=== PATIENT | female | born 1985 | race African-American/Black ===

== ENCOUNTER → 2018-06-30 | Outpatient (REF) | payer MEDICAID, OTHER ==
[2018-06-30 12:14] LABS: HEMATOCRIT 29.3 % (36.0-47.0); HEMOGLOBIN 9.2 g/dl (12.0-15.5); MEAN CORPUSCULAR HEMOGLOBIN 28.3 pg (27.0-33.0); MEAN CORPUSCULAR HGB CONC 31.4 g/dl (32.0-36.5); MEAN CORPUSCULAR VOLUME 90.2 fl (80.0-96.0); PLATELET COUNT, AUTOMATED 666 10^3/uL (150-450); RED BLOOD COUNT 3.25 10^6/uL (4.00-5.40); WHITE BLOOD COUNT 10.1 10^3/uL (4.0-10.0)
[2018-06-30 12:57] LABS: ALBUMIN 2.5 GM/DL (3.2-5.2); ALBUMIN/GLOBULIN RATIO 0.61 (1.00-1.93); ALKALINE PHOSPHATASE 96 U/L (45-117); ALT/SGPT 21 U/L (12-78); ANION GAP 10 MEQ/L (8-16); AST/SGOT 25 U/L (7-37); BILIRUBIN,TOTAL 0.3 MG/DL (0.2-1.0); BLOOD UREA NITROGEN 36 MG/DL (7-18); CALCIUM LEVEL 8.5 MG/DL (8.5-10.1); CARBON DIOXIDE LEVEL 19 MEQ/L (21-32); CHLORIDE LEVEL 111 MEQ/L (98-107); CHOLESTEROL LEVEL 225 MG/DL (<200); CHOLESTEROL RISK RATIO 4.245 (<5); CREATININE FOR GFR 3.47 MG/DL (0.55-1.30); FREE T4 1.01 NG/DL (0.76-1.46); GLOMERULAR FILTRATION RATE 19.8 (>60); GLUCOSE, FASTING 99 MG/DL (70-100); HDL CHOLESTEROL 53 MG/DL (>40); LDL CHOLESTEROL 149.4 MG/DL (<100); NON-HDL-C 172 MG/DL; SODIUM LEVEL 140 MEQ/L (136-145); TOTAL PROTEIN 6.6 GM/DL (6.4-8.2); TRIGLYCERIDES LEVEL 113 MG/DL (<150)
[2018-06-30 13:16] LABS: CREATININE, URINE 57.3 MG/DL; MAU/CREAT RATIO 4816.7 MCG/MG (0.0-30.0)
[2018-06-30 16:23] LABS: ESTIMATED AVERAGE GLUCOSE 163 MG/DL (60-110); HEMOGLOBIN A1c 7.3 %
[2018-07-01 09:29] LABS: RETIC HEMOGLOBIN EQUIVALENT 32.8 pg (24-36); RETICULOCYTE # 65.1 10^9/L (17-77)
[2018-07-01 09:43] LABS: FERRITIN 118 NG/ML (8-252); IRON (FE) 22 UG/DL (50-170)
[2018-07-01 11:04] LABS: PTH INTACT 161.1 PG/ML (18.5-88.0)
[2018-07-01 11:33] LABS: TOTAL 25(OH) VITAMIN D 7.5 NG/ML (30.0-100.0)
[2018-07-02 00:06] LABS: ISLET CELL ANTIBODIES Negative (Neg:<1:1)
== END ==
LOC: M SFHCPLAZ 09:29
DX: E10.8 Type 1 diabetes mellitus with unspecified complications (principal); I10 Essential (primary) hypertension; Z13.220 Encounter for screening for lipoid disorders
CPT/HCPCS: 83540

== ENCOUNTER → 2018-07-14 | Outpatient (REF) | payer MEDICAID ==
[2018-07-14 14:01] LABS: BASO % 0.5 % (0.0-1.0); EOS # 0.3 10^3/uL (0.0-0.50); HEMATOCRIT 27.6 % (36.0-47.0); HEMOGLOBIN 8.6 g/dl (12.0-15.5); IMMATURE GRANULOCYTE % 0.4 % (0-3.0); LYMPH # 1.9 10^3/uL (1.5-4.5); MEAN CORPUSCULAR HEMOGLOBIN 28.1 pg (27.0-33.0); MEAN CORPUSCULAR HGB CONC 31.2 g/dl (32.0-36.5); MEAN CORPUSCULAR VOLUME 90.2 fl (80.0-96.0); MONO # 0.4 10^3/uL (0.0-0.8); MONO % 5.9 % (0.0-5.0); NEUTROPHILS # 4.7 10^3/uL (1.8-7.7); NEUTROPHILS % 63.2 % (36.0-66.0); PLATELET COUNT, AUTOMATED 723 10^3/uL (150-450); RED BLOOD COUNT 3.06 10^6/uL (4.00-5.40); RED CELL DISTRIBUTION WIDTH 12.8 % (11.5-14.5); WHITE BLOOD COUNT 7.4 10^3/uL (4.0-10.0)
[2018-07-14 14:20] LABS: APPEARANCE, URINE CLEAR (CLEAR); BACTERIA, URINE AUTO NEGATIVE (NEGATIVE); BILIRUBIN, URINE AUTO NEGATIVE (NEGATIVE); BLOOD, URINE BLOOD 3+ (NEGATIVE); COLOR, URINE YELLOW (YELLOW); GLUCOSE, URINE (UA) AUTO 2+ mg/dL (NEGATIVE); KETONE, URINE AUTO NEGATIVE (NEGATIVE); LEUKOCYTE ESTERASE, URINE AUTO NEGATIVE (NEGATIVE); MUCUS, URINE SMALL (NEGATIVE); NITRITE, URINE AUTO NEGATIVE (NEGATIVE); PROTEIN, URINE AUTO 3+ mg/dL (NEGATIVE); RBC, URINE AUTO TNTC /HPF (0-3); SPECIFIC GRAVITY URINE AUTO 1.013 (1.002-1.035); SQUAMOUS EPITHELIAL CELL UR AU 1 /HPF (0-6); UROBILINOGEN, URINE AUTO 0.2 mg/dL (0.0-2.0); WBC, URINE AUTO 4 /HPF (0-3)
[2018-07-14 14:34] LABS: ALBUMIN 2.5 GM/DL (3.2-5.2); ANION GAP 9 MEQ/L (8-16); BLOOD UREA NITROGEN 33 MG/DL (7-18); CALCIUM LEVEL 8.4 MG/DL (8.5-10.1); CARBON DIOXIDE LEVEL 22 MEQ/L (21-32); CHLORIDE LEVEL 111 MEQ/L (98-107); CREATININE FOR GFR 3.92 MG/DL (0.55-1.30); FERRITIN 90 NG/ML (8-252); FOLATE 11.8 NG/ML; GLOMERULAR FILTRATION RATE 17.2 (>60); GLUCOSE, FASTING 134 MG/DL (70-100); HEPATITIS B SURFACE ANTIBODY POSITIVE (POSITIVE); IRON (FE) 33 UG/DL (50-170); MAGNESIUM LEVEL 1.8 MG/DL (1.8-2.4); PHOSPHORUS LEVEL 4.3 MG/DL (2.5-4.9); POTASSIUM SERUM 4.5 MEQ/L (3.5-5.1); PTH INTACT 240.2 PG/ML (18.5-88.0); SODIUM LEVEL 142 MEQ/L (136-145); TOTAL IRON BINDING CAPACITY 262 UG/DL (250-450)
[2018-07-14 14:39] LABS: HEPATITIS B SURFACE ANTIGEN NEGATIVE (NEGATIVE)
[2018-07-14 15:05] LABS: HEPATITIS C VIRUS ABY INDEX 5.2 INDEX (<0.8)
[2018-07-14 15:15] LABS: TOTAL PROTEIN,RANDOM URINE 659.6 MG/DL (0.0-12.0)
[2018-07-14 21:00] LABS: HIV 1&2 SCREEN CENTAUR NEGATIVE (NEGATIVE)
[2018-07-14 22:31] LABS: COMPLEMENT C3 141 MG/DL (90-180)
[2018-07-14 22:42] LABS: PERCENT SATURATION 12.5 % (13.2-45.0)
[2018-07-17 00:06] LABS: ANCA-ATYPICAL <1:20 titer (Neg:<1:20); ANTI DOUBLE STRAND-DNA AB <1 IU/mL (0-9); ANTINUCLEAR ANTIBODIES DIRECT Negative (Negative); CYTOPLASMIC NEUTROP AB ANCA-C <1:20 titer (Neg:<1:20); PERINUCLEAR AB ANCA-P <1:20 titer (Neg:<1:20)
[2018-07-19 08:20] LABS: HCV RNA NAA QUALITATIVE Negative (Negative)
[2018-07-19 14:17] LABS: ANTI-GLOMERULAR BASEMENT MEMB 3 units (0-20)
== END ==
LOC: M LAB REF 13:23
DX: E11.22 Type 2 diabetes mellitus with diabetic chronic kidney disease (principal); D63.1 Anemia in chronic kidney disease; N25.81 Secondary hyperparathyroidism of renal origin; R80.9 Proteinuria, unspecified; N18.4 Chronic kidney disease, stage 4 (severe)

== ENCOUNTER 2018-07-16 16:59 | Inpatient (IN) | payer MEDICAID, OTHER, SELFPAY ==
[2018-07-16 17:40] LABS: BEDSIDE GLUCOSE 76 MG/DL (70-105)
[2018-07-16 20:04] LABS: HEMATOCRIT 27.6 % (36.0-47.0); HEMOGLOBIN 9.1 g/dl (12.0-15.5); MEAN CORPUSCULAR HEMOGLOBIN 27.9 pg (27.0-33.0); MEAN CORPUSCULAR VOLUME 84.7 fl (80.0-96.0); PLATELET COUNT, AUTOMATED 727 10^3/uL (150-450); RED BLOOD COUNT 3.26 10^6/uL (4.00-5.40); RED CELL DISTRIBUTION WIDTH 12.5 % (11.5-14.5); WHITE BLOOD COUNT 7.7 10^3/uL (4.0-10.0)
[2018-07-16] MEDS: LABETALOL HCL 100 MG/20 ML VIAL IV (20:22)
[2018-07-16] MEDS: NS 0.45% 500 ML IV (22:30)
[2018-07-16] MEDS: FERROUS SULFATE 325MG TAB PO (22:40)
[2018-07-16 22:44] LABS: CONTROL LINE HCG INT CTR LINE PRESENT; HCG, SERUM QUALITATIVE NEGATIVE (NEGATIVE)
[2018-07-16 22:51] LABS: TROPONIN I < 0.02 NG/ML (< 0.10)
[2018-07-16 23:26] LABS: CONTROL LINE UCG INT CTR LINE PRESENT; URINE PREG TEST NEGATIVE (NEGATIVE)
[2018-07-16 23:29] LABS: APPEARANCE, URINE HAZY (CLEAR); BACTERIA, URINE AUTO NEGATIVE (NEGATIVE); BILIRUBIN, URINE AUTO NEGATIVE (NEGATIVE); BLOOD, URINE BLOOD 3+ (NEGATIVE); COLOR, URINE STRAW (YELLOW); GLUCOSE, URINE (UA) AUTO 1+ mg/dL (NEGATIVE); KETONE, URINE AUTO NEGATIVE (NEGATIVE); LEUKOCYTE ESTERASE, URINE AUTO NEGATIVE (NEGATIVE); NITRITE, URINE AUTO NEGATIVE (NEGATIVE); PROTEIN, URINE AUTO 3+ mg/dL (NEGATIVE); RBC, URINE AUTO TNTC /HPF (0-3); SPECIFIC GRAVITY URINE AUTO 1.007 (1.002-1.035); SQUAMOUS EPITHELIAL CELL UR AU 1 /HPF (0-6); UROBILINOGEN, URINE AUTO 0.2 mg/dL (0.0-2.0); WBC, URINE AUTO 4 /HPF (0-3)
[2018-07-16 23:39] LABS: CHLORIDE,RANDOM URINE 102 MEQ/L; POTASSIUM RANDOM URINE 17.8 MEQ/L
[2018-07-16 23:39] LABS: SODIUM,RANDOM URINE 99 MEQ/L
[2018-07-17] MEDS: **hydrALAZINE** 10 MG TAB PO
[2018-07-17 02:21] LABS: BEDSIDE GLUCOSE 59 MG/DL (70-105)
[2018-07-17 02:52] LABS: BEDSIDE GLUCOSE 54 MG/DL (70-105)
[2018-07-17] MEDS ORDERED: GLUCAGON FOR INJ 1 MG VIAL (J1610) SC (03:00)
[2018-07-17] MEDS ORDERED: GLUCOSE 4 GM CHEW TABLET PO (03:00)
[2018-07-17] MEDS: DEXTROSE 50% 50 ML SYRINGE IV (03:06)
[2018-07-17] MEDS: NS 0.45% 500 ML IV (03:18)
[2018-07-17 03:27] LABS: BEDSIDE GLUCOSE 115 MG/DL (70-105)
[2018-07-17] MEDS: HEPARIN SOD (PORCINE) 5000 UNITS/ML VIAL SC ×3 (05:48→21:51)
[2018-07-17 06:22] LABS: HEMATOCRIT 23.8 % (36.0-47.0); HEMOGLOBIN 7.7 g/dl (12.0-15.5); MEAN CORPUSCULAR HGB CONC 32.4 g/dl (32.0-36.5); MEAN CORPUSCULAR VOLUME 86.5 fl (80.0-96.0); RED BLOOD COUNT 2.75 10^6/uL (4.00-5.40); RED CELL DISTRIBUTION WIDTH 12.7 % (11.5-14.5); WHITE BLOOD COUNT 6.2 10^3/uL (4.0-10.0)
[2018-07-17 06:36] LABS: PLATELET COUNT, AUTOMATED 530 10^3/uL (150-450)
[2018-07-17 06:43] LABS: ANION GAP 7 MEQ/L (8-16); BLOOD UREA NITROGEN 35 MG/DL (7-18); CALCIUM LEVEL 8.7 MG/DL (8.5-10.1); CARBON DIOXIDE LEVEL 22 MEQ/L (21-32); CHLORIDE LEVEL 111 MEQ/L (98-107); CREATININE FOR GFR 3.89 MG/DL (0.55-1.30); GLOMERULAR FILTRATION RATE 17.4 (>60); GLUCOSE, FASTING 134 MG/DL (70-100); POTASSIUM SERUM 4.3 MEQ/L (3.5-5.1); SODIUM LEVEL 140 MEQ/L (136-145); TROPONIN I < 0.02 NG/ML (< 0.10)
[2018-07-17] MEDS: INFLUENZA QUADRIVALENT PF VACCINE 0.5ML SYRINGE (90686) IM (08:44)
[2018-07-17] MEDS: HumaLOG INSULIN (NovoLOG) PER UNIT SC ×4 (08:45→21:50)
[2018-07-17] MEDS: LEVEMIR (INSULIN DETEMIR) 1 UNITS/0.01ML SC (08:45)
[2018-07-17] MEDS: METOPROLOL TART 50 MG TAB PO ×2 (08:46→21:50)
[2018-07-17] MEDS: FERROUS SULFATE 325MG TAB PO ×2 (08:47→21:49)
[2018-07-17] MEDS: **hydrALAZINE HCL** 25 MG TAB PO ×3 (08:47→21:50)
[2018-07-17] MEDS: amLODIPine 5 MG TAB PO (08:47)
[2018-07-17 11:45] LABS: BEDSIDE GLUCOSE 141 MG/DL (70-105)
[2018-07-17 13:36] LABS: IRON (FE) 34 UG/DL (50-170); PERCENT SATURATION 17.3 % (13.2-45.0); TOTAL IRON BINDING CAPACITY 197 UG/DL (250-450)
[2018-07-17] MEDS: FUROSEMIDE 40 MG TAB PO (14:19)
[2018-07-17 17:05] LABS: BEDSIDE GLUCOSE 91 MG/DL (70-105)
[2018-07-17 20:16] LABS: BEDSIDE GLUCOSE 132 MG/DL (70-105)
[2018-07-17] MEDS: ACETAMINOPHEN TAB 650MG DOSE (2X325MG) PO (21:52)
[2018-07-18] MEDS: **hydrALAZINE HCL** 25 MG TAB PO ×3 (05:52→21:15)
[2018-07-18] MEDS: HEPARIN SOD (PORCINE) 5000 UNITS/ML VIAL SC ×3 (05:56→21:16)
[2018-07-18 06:17] LABS: HEMATOCRIT 24.9 % (36.0-47.0); MEAN CORPUSCULAR HGB CONC 32.1 g/dl (32.0-36.5); MEAN CORPUSCULAR VOLUME 87.1 fl (80.0-96.0); PLATELET COUNT, AUTOMATED 570 10^3/uL (150-450); RED BLOOD COUNT 2.86 10^6/uL (4.00-5.40); RED CELL DISTRIBUTION WIDTH 12.7 % (11.5-14.5)
[2018-07-18 06:45] LABS: ANION GAP 9 MEQ/L (8-16); BLOOD UREA NITROGEN 47 MG/DL (7-18); CARBON DIOXIDE LEVEL 21 MEQ/L (21-32); CHLORIDE LEVEL 108 MEQ/L (98-107); CREATININE FOR GFR 3.98 MG/DL (0.55-1.30); GLOMERULAR FILTRATION RATE 16.9 (>60); GLUCOSE, FASTING 87 MG/DL (70-100); POTASSIUM SERUM 5.1 MEQ/L (3.5-5.1); SODIUM LEVEL 138 MEQ/L (136-145)
[2018-07-18] MEDS: HumaLOG INSULIN (NovoLOG) PER UNIT SC ×4 (07:30→21:15)
[2018-07-18] MEDS: FERROUS SULFATE 325MG TAB PO ×2 (09:13→21:12)
[2018-07-18] MEDS: FUROSEMIDE 40 MG TAB PO (09:14)
[2018-07-18] MEDS: METOPROLOL TART 50 MG TAB PO ×2 (09:14→21:15)
[2018-07-18] MEDS: LEVEMIR (INSULIN DETEMIR) 1 UNITS/0.01ML SC (09:15)
[2018-07-18] MEDS: amLODIPine 5 MG TAB PO (09:15)
[2018-07-18 11:59] LABS: BEDSIDE GLUCOSE 123 MG/DL (70-105)
[2018-07-18 16:37] LABS: BEDSIDE GLUCOSE 165 MG/DL (70-105)
[2018-07-18 20:14] LABS: BEDSIDE GLUCOSE 106 MG/DL (70-105)
[2018-07-19 06:25] LABS: HEMATOCRIT 23.1 % (36.0-47.0); HEMOGLOBIN 7.6 g/dl (12.0-15.5); MEAN CORPUSCULAR HEMOGLOBIN 28.5 pg (27.0-33.0); MEAN CORPUSCULAR HGB CONC 32.9 g/dl (32.0-36.5); MEAN CORPUSCULAR VOLUME 86.5 fl (80.0-96.0); PLATELET COUNT, AUTOMATED 489 10^3/uL (150-450); RED BLOOD COUNT 2.67 10^6/uL (4.00-5.40); WHITE BLOOD COUNT 6.5 10^3/uL (4.0-10.0)
[2018-07-19] MEDS: **hydrALAZINE HCL** 25 MG TAB PO (06:27)
[2018-07-19] MEDS: HEPARIN SOD (PORCINE) 5000 UNITS/ML VIAL SC ×3 (06:27→21:27)
[2018-07-19 06:45] LABS: ANION GAP 12 MEQ/L (8-16); BLOOD UREA NITROGEN 47 MG/DL (7-18); CALCIUM LEVEL 8.3 MG/DL (8.5-10.1); CARBON DIOXIDE LEVEL 18 MEQ/L (21-32); CHLORIDE LEVEL 109 MEQ/L (98-107); CREATININE FOR GFR 3.89 MG/DL (0.55-1.30); GLOMERULAR FILTRATION RATE 17.4 (>60); GLUCOSE, FASTING 80 MG/DL (70-100); POTASSIUM SERUM 4.8 MEQ/L (3.5-5.1); SODIUM LEVEL 139 MEQ/L (136-145)
[2018-07-19] MEDS: HumaLOG INSULIN (NovoLOG) PER UNIT SC ×4 (07:22→21:27)
[2018-07-19] MEDS: LEVEMIR (INSULIN DETEMIR) 1 UNITS/0.01ML SC (08:23)
[2018-07-19] MEDS: FUROSEMIDE 40 MG TAB PO (08:23)
[2018-07-19] MEDS: FERROUS SULFATE 325MG TAB PO ×2 (08:23→21:25)
[2018-07-19] MEDS: amLODIPine 5 MG TAB PO (08:25)
[2018-07-19] MEDS: METOPROLOL TART 50 MG TAB PO ×2 (08:25→21:26)
[2018-07-19] MEDS ORDERED: IRON SUCROSE 500 MG in NS 250 ML IV (08:45)
[2018-07-19] MEDS: ACETAMINOPHEN TAB 650MG DOSE (2X325MG) PO ×2 (09:20→23:05)
[2018-07-19 09:30] LABS: BEDSIDE GLUCOSE 69 MG/DL (70-105)
[2018-07-19] MEDS: IRON SUCROSE 500 MG in NS 250 ML IV (10:30)
[2018-07-19 10:31] LABS: HEPATITIS B SURFACE ANTIBODY POSITIVE (POSITIVE)
[2018-07-19] MEDS: DARBEPOETIN 100 MCG/0.5 ML *NON-DIALYSIS* SYRINGE (J0881) SC (10:31)
[2018-07-19 10:41] LABS: HEPATITIS B SURFACE ANTIGEN NEGATIVE (NEGATIVE)
[2018-07-19 10:47] LABS: BEDSIDE GLUCOSE 109 MG/DL (70-105)
[2018-07-19 11:08] LABS: HEPATITIS B CORE ANTIBODY IGM NEGATIVE (NEGATIVE); HEPATITIS C VIRUS ABY INDEX 5.2 INDEX (<0.8)
[2018-07-19 11:30] LABS: BEDSIDE GLUCOSE 136 MG/DL (70-105)
[2018-07-19 16:40] LABS: BEDSIDE GLUCOSE 105 MG/DL (70-105)
[2018-07-19 16:58] LABS: IMMEDIATE SPIN CROSSMATCH 1 1
[2018-07-19] MEDS: FUROSEMIDE 40 MG/4 ML VIAL (J1940) IV (20:24)
[2018-07-19 22:26] LABS: BEDSIDE GLUCOSE 118 MG/DL (70-105)
[2018-07-19] MEDS: **hydrALAZINE** 10 MG TAB PO (22:26)
[2018-07-20] MEDS: HEPARIN SOD (PORCINE) 5000 UNITS/ML VIAL SC (06:06)
[2018-07-20 06:17] LABS: HEMATOCRIT 26.9 % (36.0-47.0); MEAN CORPUSCULAR HEMOGLOBIN 28.8 pg (27.0-33.0); MEAN CORPUSCULAR HGB CONC 33.5 g/dl (32.0-36.5); MEAN CORPUSCULAR VOLUME 86.2 fl (80.0-96.0); PLATELET COUNT, AUTOMATED 505 10^3/uL (150-450); RED BLOOD COUNT 3.12 10^6/uL (4.00-5.40); RED CELL DISTRIBUTION WIDTH 12.9 % (11.5-14.5); WHITE BLOOD COUNT 8.9 10^3/uL (4.0-10.0)
[2018-07-20 06:42] LABS: ANION GAP 12 MEQ/L (8-16); BLOOD UREA NITROGEN 48 MG/DL (7-18); CARBON DIOXIDE LEVEL 18 MEQ/L (21-32); CHLORIDE LEVEL 108 MEQ/L (98-107); CREATININE FOR GFR 3.94 MG/DL (0.55-1.30); GLOMERULAR FILTRATION RATE 17.1 (>60); GLUCOSE, FASTING 121 MG/DL (70-100); POTASSIUM SERUM 4.7 MEQ/L (3.5-5.1); SODIUM LEVEL 138 MEQ/L (136-145)
[2018-07-20 08:06] LABS: HEPATITIS B CORE ANTIBODY IGG Negative (Negative)
[2018-07-20] MEDS: FERROUS SULFATE 325MG TAB PO (08:56)
[2018-07-20] MEDS: FUROSEMIDE 40 MG TAB PO (08:56)
[2018-07-20] MEDS: METOPROLOL TART 50 MG TAB PO (08:56)
[2018-07-20] MEDS: HumaLOG INSULIN (NovoLOG) PER UNIT SC ×2 (08:57→12:00)
[2018-07-20] MEDS: amLODIPine 5 MG TAB PO (08:57)
[2018-07-20] MEDS: LEVEMIR (INSULIN DETEMIR) 1 UNITS/0.01ML SC (08:58)
[2018-07-20 11:54] LABS: BEDSIDE GLUCOSE 154 MG/DL (70-105)
[2018-07-22 00:06] LABS: HCV RNA NAA QUALITATIVE Negative (Negative)
== END 2018-07-20 12:46 | disposition home or self-care (01) | DRG 199 ==
LOC: M MSPAV 07-17 02:03 → M ED 16:59 → M ED INP 22:25
PROVIDERS: Internal Medicine
DX: I16.0 Hypertensive urgency (principal); N17.9 Acute kidney failure, unspecified; E10.21 Type 1 diabetes mellitus with diabetic nephropathy; E10.40 Type 1 diabetes mellitus with diabetic neuropathy, unspecified; E10.22 Type 1 diabetes mellitus with diabetic chronic kidney disease; N18.5 Chronic kidney disease, stage 5; D63.1 Anemia in chronic kidney disease; D50.9 Iron deficiency anemia, unspecified; Z79.4 Long term (current) use of insulin; Z88.5 Allergy status to narcotic agent; Z79.899 Other long term (current) drug therapy; I12.0 Hypertensive chronic kidney disease with stage 5 chronic kidney disease or end stage renal disease

== ENCOUNTER → 2018-07-16 | Outpatient (REF) | payer MEDICAID, OTHER ==
[2018-07-16 18:20] LABS: REASON FOR REVIEW RBC MORPHOLOGY; SLIDE REVIEW Report; SOURCE PERIPHERAL SMEAR
[2018-07-16 18:35] LABS: ERYTHROCYTE SEDIMENTATION RATE 120 mm/hr (0-20)
[2018-07-16 18:43] LABS: C REACTIVE PROTEIN QUANTITATIV < 0.30 MG/DL (0.00-0.30); IRON (FE) 48 UG/DL (50-170); PERCENT SATURATION 20.2 % (13.2-45.0); TOTAL IRON BINDING CAPACITY 238 UG/DL (250-450)
[2018-07-16 18:55] LABS: ALBUMIN 2.5 GM/DL (3.2-5.2); ALBUMIN/GLOBULIN RATIO 0.63 (1.00-1.93); ALKALINE PHOSPHATASE 78 U/L (45-117); ALT/SGPT 23 U/L (12-78); ANION GAP 9 MEQ/L (8-16); AST/SGOT 21 U/L (7-37); BILIRUBIN,TOTAL 0.1 MG/DL (0.2-1.0); BLOOD UREA NITROGEN 36 MG/DL (7-18); CALCIUM LEVEL 8.9 MG/DL (8.5-10.1); CARBON DIOXIDE LEVEL 21 MEQ/L (21-32); CHLORIDE LEVEL 109 MEQ/L (98-107); CREATININE FOR GFR 3.93 MG/DL (0.55-1.30); GLOMERULAR FILTRATION RATE 17.2 (>60); GLUCOSE, FASTING 78 MG/DL (70-100); SODIUM LEVEL 139 MEQ/L (136-145); TOTAL PROTEIN 6.5 GM/DL (6.4-8.2)
[2018-07-20 00:07] LABS: ANTI DOUBLE STRAND-DNA AB <1 IU/mL (0-9); ANTINUCLEAR ANTIBODIES DIRECT Negative (Negative)
== END ==
LOC: M SFHCPLAZ 15:32
DX: N18.4 Chronic kidney disease, stage 4 (severe) (principal); D63.1 Anemia in chronic kidney disease
CPT/HCPCS: 83550

== ENCOUNTER → 2018-07-27 | Outpatient (REF) | payer MEDICAID ==
[2018-07-27 13:30] LABS: BASO # 0.1 10^3/uL (0.0-0.2); BASO % 0.6 % (0.0-1.0); EOS # 0.4 10^3/uL (0.0-0.50); EOS % 5.3 % (0.0-3.0); HEMATOCRIT 33.5 % (36.0-47.0); HEMOGLOBIN 10.9 g/dl (12.0-15.5); IMMATURE GRANULOCYTE % 0.5 % (0-3.0); LYMPH # 1.9 10^3/uL (1.5-4.5); LYMPH % 23.1 % (24.0-44.0); MEAN CORPUSCULAR HEMOGLOBIN 28.8 pg (27.0-33.0); MEAN CORPUSCULAR HGB CONC 32.5 g/dl (32.0-36.5); MEAN CORPUSCULAR VOLUME 88.4 fl (80.0-96.0); MONO # 0.7 10^3/uL (0.0-0.8); MONO % 8.1 % (0.0-5.0); NEUTROPHILS # 5.1 10^3/uL (1.8-7.7); NEUTROPHILS % 62.4 % (36.0-66.0); PLATELET COUNT, AUTOMATED 639 10^3/uL (150-450); RED BLOOD COUNT 3.79 10^6/uL (4.00-5.40); RED CELL DISTRIBUTION WIDTH 14.4 % (11.5-14.5); WHITE BLOOD COUNT 8.2 10^3/uL (4.0-10.0)
[2018-07-27 14:18] LABS: ALBUMIN 2.8 GM/DL (3.2-5.2); ALKALINE PHOSPHATASE 86 U/L (45-117); ALT/SGPT 22 U/L (12-78); ANION GAP 12 MEQ/L (8-16); AST/SGOT 18 U/L (7-37); BILIRUBIN,TOTAL 0.2 MG/DL (0.2-1.0); BLOOD UREA NITROGEN 62 MG/DL (7-18); CARBON DIOXIDE LEVEL 19 MEQ/L (21-32); CHLORIDE LEVEL 107 MEQ/L (98-107); CREATININE FOR GFR 4.44 MG/DL (0.55-1.30); GLOMERULAR FILTRATION RATE 14.9 (>60); GLUCOSE, FASTING 75 MG/DL (70-100); POTASSIUM SERUM 5.6 MEQ/L (3.5-5.1); SODIUM LEVEL 138 MEQ/L (136-145); TOTAL PROTEIN 7.5 GM/DL (6.4-8.2)
== END ==
LOC: M SFHCPLAZ 11:09
DX: N18.4 Chronic kidney disease, stage 4 (severe) (principal); D63.1 Anemia in chronic kidney disease

== ENCOUNTER → 2018-08-24 | Outpatient (CLI) | payer MEDICAID, SELFPAY | LOC: M RAD 12:30 | DX: N18.4 Chronic kidney disease, stage 4 (severe) (principal) | CPT/HCPCS: 76775 ==

== ENCOUNTER → 2018-09-27 | Outpatient (REF) | payer MEDICAID ==
[2018-09-27 18:16] LABS: FERRITIN 192 NG/ML (8-252); IRON (FE) 55 UG/DL (50-170); PERCENT SATURATION 23.6 % (13.2-45.0); TOTAL IRON BINDING CAPACITY 233 UG/DL (250-450)
== END ==
LOC: M LAB REF 17:25
DX: N18.9 Chronic kidney disease, unspecified (principal); D63.1 Anemia in chronic kidney disease

== ENCOUNTER → 2018-10-27 | Outpatient (REF) | payer OTHER ==
[~2018-10-27] MED LIST: AMLO5TAB6 PO; CALCTAB41 PO; FERR1TAB8 PO; FURO20TA2 PO; FURO40TA2 PO; LANTINJ4 SC; LOPR1TAB6 PO
[2018-10-27 17:32] LABS: ALBUMIN 2.5 GM/DL (3.2-5.2); BILIRUBIN,TOTAL 0.2 MG/DL (0.2-1.0); CALCIUM LEVEL 7.6 MG/DL (8.5-10.1); CREATININE FOR GFR 4.88 MG/DL (0.55-1.30); GLOMERULAR FILTRATION RATE 13.4 (>60); POTASSIUM SERUM 4.7 MEQ/L (3.5-5.1); TOTAL PROTEIN 6.5 GM/DL (6.4-8.2)
== END ==
LOC: M SFHCPLAZ 15:29
PROVIDERS: ATTEND Internal Medicine
DX: E11.22 Type 2 diabetes mellitus with diabetic chronic kidney disease (principal); N18.4 Chronic kidney disease, stage 4 (severe)

== ENCOUNTER → 2018-11-30 | Outpatient (CLI) | payer OTHER ==
[~2018-11-30] MED LIST changes: +DRIS50003 PO
== END ==
LOC: M RAD 08:41
PROVIDERS: ATTEND Surgery Vascular Surgery
DX: Z01.818 Encounter for other preprocedural examination (principal); N18.6 End stage renal disease

== ENCOUNTER → 2018-12-16 | Outpatient (REF) | payer OTHER ==
[~2018-12-16] MED LIST changes: +LOPR1TAB7 PO
[2018-12-16 12:21] LABS: BLOOD UREA NITROGEN 33 MG/DL (7-18); CALCIUM LEVEL 8.4 MG/DL (8.5-10.1); CARBON DIOXIDE LEVEL 22 MEQ/L (21-32); CHLORIDE LEVEL 108 MEQ/L (98-107); CREATININE FOR GFR 4.79 MG/DL (0.55-1.30); GLOMERULAR FILTRATION RATE 13.7 (>60); GLUCOSE, FASTING 99 MG/DL (70-100); POTASSIUM SERUM 4.9 MEQ/L (3.5-5.1); SODIUM LEVEL 140 MEQ/L (136-145); TOTAL PROTEIN 6.7 GM/DL (6.4-8.2)
[2018-12-16 13:18] LABS: URINE TOTAL PROTEIN 663.5 MG/DL (0-12)
[2018-12-16 13:51] LABS: HEMOGLOBIN A1c 6.3 %
[2018-12-16 14:19] LABS: COMPLEMENT C3 109 MG/DL (90-180); COMPLEMENT C4 44 MG/DL (10-40)
[2018-12-18 00:07] LABS: RNP ANTIBODY < 0.2 AI (0.0-0.9); SMITHS ANTIBODY < 0.2 AI (0.0-0.9)
[2018-12-22 06:58] LABS: ALBUMIN 3.21 GM/DL (3.29-5.55); ALBUMIN % 47.9 % (55.8-66.1); ALPHA-1-GLOBULIN % 5.7 % (2.9-4.9); ALPHA-1-GLOBULINS 0.38 GM/DL (0.17-0.41); ALPHA-2-GLOBULINS 1.02 GM/DL (0.42-0.99); ALPHA-2-GLOBULINS % 15.2 % (7.1-11.8); BETA-1-GLOBULINS 0.42 GM/DL (0.28-0.60); BETA-1-GLOBULINS % 6.2 % (4.7-7.2); BETA-2-GLOBULINS 0.49 GM/DL (0.19-0.55); BETA-2-GLOBULINS % 7.3 % (3.2-6.5); GAMMA GLOBULIN % 17.7 % (11.1-18.8); GAMMA GLOBULINS 1.19 GM/DL (0.65-1.58)
[2018-12-24 15:25] LABS: UPEP INTERPRETATION NO M-SPIKE NOTED; URINE VOLUME RANDOM ML
== END ==
LOC: M SFHCPLAZ 08:33
PROVIDERS: ATTEND Physician Assistant
DX: N04.9 Nephrotic syndrome with unspecified morphologic changes (principal); E10.22 Type 1 diabetes mellitus with diabetic chronic kidney disease

== ENCOUNTER → 2018-12-20 | Outpatient (CLI) | payer OTHER ==
--- NOTE | 2018-12-20 20:00 | REP ---
MR BRAIN WITHOUT CONTRAST: HISTORY: Cerebral cyst. Areas of increased signal intensity on T2 weighted images are present in the periventricular and subcortical white matter. There is volume loss in the posterior right temporal and parietal lobes and occipital lobes. There is dilatation of the lateral and third ventricles. There is no intraparenchymal hemorrhage or mass. A right retro-cerebellar arachnoid cyst is present. The arachnoid cyst measures 7.6 cm in transverse x 4 cm in AP x 4.4 cm in cephalocaudal dimensions. There is minimal mass effect on the 4th ventricle. There is no subdural fluid collection. The sinuses are clear. IMPRESSION: 1. Right temporal , parietal and occipital lobe encephalomalacia. 2. Right retro-cerebellar arachnoid cyst. Electronically Signed by Kyle Nesbitt MD 12/21/2018 08:01 A
== END ==
LOC: M RAD 18:33
PROVIDERS: ATTEND Internal Medicine Nephrology
DX: G93.0 Cerebral cysts (principal); G93.89 Other specified disorders of brain

== ENCOUNTER → 2018-12-23 | Outpatient (REF) | payer OTHER ==
[2018-12-23 14:27] LABS: CHOLESTEROL LEVEL 233 MG/DL (<200); HDL CHOLESTEROL 52 MG/DL (>40); LDL CHOLESTEROL 155 MG/DL (<100); NON-HDL-C 181 MG/DL; TRIGLYCERIDES LEVEL 130 MG/DL (<150)
[2018-12-27 12:47] LABS: HEPATITIS B SURFACE ANTIBODY POSITIVE (POSITIVE)
[2018-12-27 12:58] LABS: HEPATITIS B SURFACE ANTIGEN NEGATIVE (NEGATIVE)
[2018-12-27 13:26] LABS: HEPATITIS B CORE ANTIBODY IGM NEGATIVE (NEGATIVE); HEPATITIS C VIRUS ABY INDEX 0.1 INDEX (<0.8)
== END ==
LOC: M LAB REF 13:34
PROVIDERS: ATTEND Internal Medicine Nephrology
DX: N18.5 Chronic kidney disease, stage 5 (principal)

== ENCOUNTER 2018-12-24 12:58 | Emergency (ER) | payer OTHER ==
[~2018-12-24] VITALS: Ht 175.3 cm; Wt 85.9 kg
[~2018-12-24 12:58] MED LIST changes: -LOPR1TAB7 PO
[2018-12-24] MEDS ORDERED: LOPR1TAB7 PO (13:08)
[2018-12-24] MEDS ORDERED: ACETAMINOPHEN 325 MG TAB PO ONE (14:15)
[2018-12-24 14:37] VITALS: BP 149/78
== END 2018-12-24 14:43 | disposition home or self-care (01) ==
LOC: M ED 12:58
DX: S09.90XA Unspecified injury of head, initial encounter (principal); R51 Headache; W01.198A Fall on same level from slipping, tripping and stumbling with subsequent striking against other object, initial encounter; Y92.531 Health care provider office as the place of occurrence of the external cause; I10 Essential (primary) hypertension; N28.9 Disorder of kidney and ureter, unspecified; E11.9 Type 2 diabetes mellitus without complications; N17.9 Acute kidney failure, unspecified; Z88.5 Allergy status to narcotic agent; Z79.899 Other long term (current) drug therapy; Z79.4 Long term (current) use of insulin

== ENCOUNTER → 2018-12-24 | Outpatient (REF) | payer OTHER ==
[2018-12-24 14:20] LABS: BASO # 0.1 10^3/uL (0.0-0.2); BASO % 0.9 % (0.0-1.0); EOS # 0.6 10^3/uL (0.0-0.50); EOS % 7.4 % (0.0-3.0); HEMATOCRIT 27.3 % (36.0-47.0); HEMOGLOBIN 8.7 g/dl (12.0-15.5); LYMPH # 2.2 10^3/uL (1.5-4.5); LYMPH % 28.3 % (24.0-44.0); MEAN CORPUSCULAR HGB CONC 31.9 g/dl (32.0-36.5); MONO # 0.6 10^3/uL (0.0-0.8); MONO % 7.4 % (0.0-5.0); NEUTROPHILS # 4.3 10^3/uL (1.8-7.7); NEUTROPHILS % 55.7 % (36.0-66.0); PLATELET COUNT, AUTOMATED 539 10^3/uL (150-450); WHITE BLOOD COUNT 7.7 10^3/uL (4.0-10.0)
[2018-12-24 14:37] LABS: ALBUMIN 2.9 GM/DL (3.2-5.2); ALT/SGPT 17 U/L (12-78); BILIRUBIN,TOTAL 0.2 MG/DL (0.2-1.0); BLOOD UREA NITROGEN 44 MG/DL (7-18); CALCIUM LEVEL 8.2 MG/DL (8.5-10.1); CARBON DIOXIDE LEVEL 22 MEQ/L (21-32); CHLORIDE LEVEL 106 MEQ/L (98-107); CREATININE FOR GFR 5.46 MG/DL (0.55-1.30); GLOMERULAR FILTRATION RATE 11.8 (>60); GLUCOSE, FASTING 92 MG/DL (70-100); POTASSIUM SERUM 5.4 MEQ/L (3.5-5.1); RHEUMATOID FACTOR QUANT < 10.0 IU/ML (<15.0); SODIUM LEVEL 135 MEQ/L (136-145); TOTAL PROTEIN 6.6 GM/DL (6.4-8.2)
[2018-12-24 14:46] LABS: ERYTHROCYTE SEDIMENTATION RATE 83 mm/hr (0-20)
[2018-12-24 16:03] LABS: TOTAL 25(OH) VITAMIN D 14.3 NG/ML (30.0-100.0)
[2018-12-25 14:09] LABS: ANTINUCLEAR ANTIBODIES DIRECT Negative (Negative)
== END ==
LOC: M LABNEURO 08:58
PROVIDERS: ATTEND Psychiatry & Neurology Neurology
DX: R51 Headache (principal)

== ENCOUNTER 2019-01-04 20:18 | Inpatient (IN) | payer MEDICAID, OTHER ==
[~2019-01-04] VITALS: Ht 175.3 cm; Wt 84.6 kg
[~2019-01-04 20:18] MED LIST changes: +LOPR1TAB7 PO
[2019-01-04] MEDS ORDERED: FURO20TA2 PO (21:22)
[2019-01-04] MEDS ORDERED: METO1TAB33 PO (21:22)
[2019-01-04] MEDS ORDERED: CALC1CAP31 PO (21:22)
[2019-01-04] MEDS ORDERED: BASA100I SC (21:22)
[2019-01-04] MEDS ORDERED: AMLO10TA5 PO (21:22)
[2019-01-04 21:54] LABS: BASO # 0.1 10^3/uL (0.0-0.2); BASO % 0.4 % (0.0-1.0); EOS # 0.4 10^3/uL (0.0-0.50); EOS % 2.5 % (0.0-3.0); HEMATOCRIT 28.2 % (36.0-47.0); HEMOGLOBIN 9.4 g/dl (12.0-15.5); LYMPH # 1.8 10^3/uL (1.5-4.5); MEAN CORPUSCULAR HEMOGLOBIN 29.9 pg (27.0-33.0); MEAN CORPUSCULAR HGB CONC 33.3 g/dl (32.0-36.5); MEAN CORPUSCULAR VOLUME 89.8 fl (80.0-96.0); MONO % 6.3 % (0.0-5.0); NEUTROPHILS % 78.3 % (36.0-66.0); PLATELET COUNT, AUTOMATED 578 10^3/uL (150-450); RED BLOOD COUNT 3.14 10^6/uL (4.00-5.40); WHITE BLOOD COUNT 15.3 10^3/uL (4.0-10.0)
[2019-01-04 22:05] LABS: OSMOLALITY SERUM 293 MOSM/KG (275-295)
[2019-01-04 22:13] LABS: ABG BASE EXCESS -7.7 (-2.0-2.0); ABG HCO3 14.5 MEQ/L (22.0-26.0); ABG O2 SATURATION 98.9 % (95.0-99.0); ABG PARTIAL PRESSURE CO2 20.3 mmHg (35.0-45.0); ABG PARTIAL PRESSURE O2 127.1 mmHg (75.0-100.0); ABG STANDARD HCO3 18.2 MEQ/L (22.0-26.0); ABG TOTAL CO2 15.1 MEQ/L (22.0-29.0); ABG pH (ARTERIAL) 7.471 UNITS (7.350-7.450)
[2019-01-04 22:17] LABS: ALT/SGPT 20 U/L (12-78); BILIRUBIN,DIRECT < 0.1 MG/DL (0.0-0.2); BILIRUBIN,TOTAL 0.2 MG/DL (0.2-1.0); BLOOD UREA NITROGEN 41 MG/DL (7-18); CALCIUM LEVEL 8.2 MG/DL (8.5-10.1); CARBON DIOXIDE LEVEL 19 MEQ/L (21-32); CHLORIDE LEVEL 108 MEQ/L (98-107); CREATININE FOR GFR 5.75 MG/DL (0.55-1.30); GLOMERULAR FILTRATION RATE 11.1 (>60); GLUCOSE, FASTING 79 MG/DL (70-100); POTASSIUM SERUM 5.7 MEQ/L (3.5-5.1); SODIUM LEVEL 137 MEQ/L (136-145); TOTAL PROTEIN 6.9 GM/DL (6.4-8.2)
[2019-01-05] VITALS (7 sets, daily range): BP systolic 139–184; BP diastolic 78–102
--- NOTE | 2019-01-05 02:18 | HPEPDOC ---
[facility] Medical History & Physical Date of Admission Jan 05, 2019 Attending Physician: PORTIA SANTANA MD History and Physical CHIEF COMPLAINT: Worsening Renal Function HISTORY OF PRESENT ILLNESS: Patient is a 33 year old female who presented to the [facility] emergency department under the direction of her Tenant Selector, Dr. Bates. Patient is a poorly controlled type I diabetic with chronic hypertension and CKD stage 4. She was to receive a fistula this upcoming week for dialysis. Patient presented to her Tenant Selector where her labs showed worsening renal function and need for dialysis. Patient was instructed to go to the emergency department where she would be admitted for hemodialysis in the morning. Patient currently states that she feels well. She does complain of back pain which she states has been going on for a little over a week now. Patient also states that she did have nausea, vomiting, and diarrhea recently. She denies any fevers or chills. In the ER, the patient received labs which demonstrated elevated potassium and creatinine. Hospitalists was consulted and patient was admitted with plans for hemodialysis in AM. PAST MEDICAL HISTORY: 1. IDDM Type 1 uncontrolled 2. Hypertension 3. CKD stage 4 PAST SURGICAL HISTORY: 1. Cysts drained from brain 2. Section SOCIAL HISTORY: Patient denies alcohol, tobacco, or illicit drug use FAMILY HISTORY: Patient has a brother with CKD ALLERGIES: Please see below. REVIEW OF SYSTEMS: CONSTITUTIONAL: Denies fevers, chills, night sweats, unintentional weight loss or weight gain HEENT: Denies cough, dysphagia CARDIOVASCULAR: Denies chest pain, palpitations, or feelings of the heart racing RESPIRATORY: Denies shortness of breath GASTROINTESTINAL: Admits to diarrhea, nausea, and vomiting GENITOURINARY: Denies increased frequency or urgency. Denies difficulty with urination SKIN: Denies rashes or lesions MUSCULOSKELETAL: Admits to back pain NEUROLOGICAL: Denies changes in speech or gait. Denies muscle weakness PSYCHIATRIC: Denies depression or anxiety ENDOCRINE: Denies heat intolerance or cold intolerance HEMATOLOGIC/LYMPHATIC: Denies easy bruising or bleeding HOME MEDICATIONS: Please see below. PHYSICAL EXAMINATION: VITAL SIGNS: Temperature 98.1, pulse 110, respiratory rate 18, blood pressure 163\104, pulse oximetry 100 % on room air. GENERAL APPEARANCE: Patient is awake, alert and oriented 3. She appears no acute distress. She is lying comfortably in bed. HEENT:. Atraumatic, normocephalic. Eyes nonicteric. Trachea is midline. CARDIOVASCULAR:, Normal S1, S2, regular rate and rhythm. No clicks, rubs or murmurs. LUNGS:. Clear to auscultation bilaterally. Good respiratory effort. No wheezes, rhonchi, rales. ABDOMEN:, Soft, nondistended, nontender to palpation. Positive bowel sounds in all 4 quadrants. MUSCULOSKELETAL:. Slight tenderness to palpation of rib cage bilaterally EXTREMITIES:. No edema. Pulses are full and equal bilaterally in upper and lower extremities. PSYCHIATRIC: Mood and affect appear appropriate. LABORATORY DATA: See below. MICROBIOLOGY: Please see below. ASSESSMENT and PLAN: 1. End-stage renal disease requiring hemodialysis. -Patient was recently seen by her oracle obiee developer electrodes patient presented to the ER for hemodialysis due to worsening kidney function -Nephrology will be consulted to see patient in a.m. -Patient to receive hemodialysis tomorrow. -We will continue to monitor electrolytes Vital Signs Vital Signs Date Time Temp Pulse Resp B/P (MAP) Pulse Ox O2 Delivery O2 Flow Rate FiO2 01/05/19 00:56 94 20 172/97 (122) 100 Room Air 01/04/19 20:18 98.1 Laboratory Data Labs 24H Laboratory Tests 2 01/04/19 21:28: Immature Granulocyte % (Auto) 0.5, White Blood Count 15.3H, Red Blood Count 3.14L, Hemoglobin 9.4L, Hematocrit 28.2L, Mean Corpuscular Volume 89.8, Mean Corpuscular Hemoglobin 29.9, Mean Corpuscular Hemoglobin Concent 33.3, Red Cell Distribution Width 12.9, Platelet Count 578H, Neutrophils (%) (Auto) 78.3H, Lymphocytes (%) (Auto) 12.0L, Monocytes (%) (Auto) 6.3H, Eosinophils (%) (Auto) 2.5, Basophils (%) (Auto) 0.4, Neutrophils # (Auto) 12.0H, Lymphocytes # (Auto) 1.8, Monocytes # (Auto) 1.0H, Eosinophils # (Auto) 0.4, Basophils # (Auto) 0.1, Nucleated Red Blood Cells % (auto) 0.0, Anion Gap 10, Glomerular Filtration Rate 11.1L, Osmolality 293, Calcium Level 8.2L, Aspartate Amino Transf (AST/SGOT) 26, Alanine Aminotransferase (ALT/SGPT) 20, Alkaline Phosphatase 113, Total Bilirubin 0.2, Direct Bilirubin < 0.1, Total Protein 6.9, Albumin 3.0L, Albumin/Globulin Ratio 0.77L 01/04/19 21:51: Blood Gas Bicarbonate Standard 18.2L, Arterial Blood pH 7.471H, Arterial Blood Partial Pressure CO2 20.3L, Arterial Blood Partial Pressure O2 127.1H, Arterial Blood Total CO2 15.1L, Arterial Blood HCO3 14.5L, Arterial Blood Base Excess - 7.7L, Arterial Blood Oxygen Saturation 98.9 CBC/BMP Laboratory Tests 01/04/19 21:28 Red Blood Count 3.14 L, Mean Corpuscular Volume 89.8, Mean Corpuscular Hemoglobin 29.9, Mean Corpuscular Hemoglobin Concent 33.3, Red Cell Distribution Width 12.9, Neutrophils (%) (Auto) 78.3 H, Lymphocytes (%) (Auto) 12.0 L, Monocytes (%) (Auto) 6.3 H, Eosinophils (%) (Auto) 2.5, Basophils (%) (Auto) 0.4, Neutrophils # (Auto) 12.0 H, Lymphocytes # (Auto) 1.8, Monocytes # (Auto) 1.0 H, Eosinophils # (Auto) 0.4, Basophils # (Auto) 0.1 Home Medications Scheduled (Khanh Morel) 100 Unit/Ml Inj, 20 UNIT SC QHS Amlodipine Besylate (Amlodipine Besylate) 10 Mg Tab, 10 MG PO DAILY Calcitriol (Calcitriol) 0.25 Mcg Cap, 0.25 MCG PO DAILY Calcium/Vitamin D (Calcium 500+D 500-400 mg-Unit) 1 Tab Tab, 1 TAB PO DAILY Ferrous Sulfate (Ferrous Sulfate) 325 Mg Tab, 325 MG PO BID Furosemide (Furosemide) 20 Mg Tab, 20 MG PO DAILY Metoprolol Succinate (Metoprolol Succinate ER) 100 Mg Tab, 200 MG PO DAILY Vitamin D (Drisdol) 50,000 Unit Cap, 50,000 UNIT PO QWEEK THURSDAY Allergies Coded Allergies: Morphine (Verified Allergy, Intermediate, 07/16/18) rash TAPE (Verified Adverse Reaction, Intermediate, IRRITATES SKIN, 01/05/19) USE PAPER TAPE ONL;Y Latex (Unverified Adverse Reaction, Unknown, BAND-AID PULLED SKIN OFF, 01/05/19) GME ATTESTATION GME ATTESTATION My faculty preceptor for this patient encounter was physically present during the encounter and was fully available. All aspects of the patient interview, examination, medical decision making process, and medical care plan development were reviewed and approved by the faculty preceptor. The faculty preceptor is aware and concurs with the plan as stated in the body of this note and will attest to such by his/her cosignature. AMANDA SHIRLEY DO Jan 05, 2019 02:18 SAUL GILBERT MD Jan 05, 2019 21:48
[2019-01-05] MEDS: HumaLOG INSULIN (NovoLOG) PER UNIT SC SCH ×4 (07:30→21:00)
[2019-01-05] MEDS ORDERED: DEXTROSE 50% 50 ML SYRINGE IV PRN (08:00)
[2019-01-05] MEDS ORDERED: GLUCOSE 4 GM CHEW TABLET PO PRN (08:00)
[2019-01-05] MEDS ORDERED: GLUCAGON FOR INJ 1 MG VIAL (J1610) SC PRN (08:00)
[2019-01-05 08:05] LABS: MEAN CORPUSCULAR HEMOGLOBIN 29.3 pg (27.0-33.0); MEAN CORPUSCULAR HGB CONC 32.1 g/dl (32.0-36.5); MEAN CORPUSCULAR VOLUME 91.2 fl (80.0-96.0); PLATELET COUNT, AUTOMATED 550 10^3/uL (150-450); RED BLOOD COUNT 3.07 10^6/uL (4.00-5.40); WHITE BLOOD COUNT 12.6 10^3/uL (4.0-10.0)
[2019-01-05 08:13] LABS: VENOUS BASE EXCESS -11.3 (-2.0-2.0); VENOUS HCO3 13.4 MEQ/L (23.0-27.0); VENOUS O2 SATURATION 99.5 % (60.0-80.0); VENOUS PARTIAL PRESSURE CO2 26.1 mmHg (38.0-50.0); VENOUS PARTIAL PRESSURE O2 208.8 mmHg (30.0-50.0); VENOUS PH 7.329 UNITS (7.330-7.430); VENOUS STANDARD HCO3 15.4 MEQ/L; VENOUS TOTAL CO2 14.2 MEQ/L (24.0-28.0)
[2019-01-05] MEDS ORDERED: PATIROMER SORBITEX CALCIUM 8.4 GM POWDER PACKET (VELTASSA) PO ONE (08:15)
[2019-01-05 08:33] LABS: CALCIUM LEVEL 8.7 MG/DL (8.5-10.1); CREATININE FOR GFR 6.07 MG/DL (0.55-1.30); GLOMERULAR FILTRATION RATE 10.4 (>60); POTASSIUM SERUM 5.5 MEQ/L (3.5-5.1)
[2019-01-05] MEDS: amLODIPine 10 MG TAB PO SCH (08:44)
[2019-01-05] MEDS: FERROUS SULFATE 325MG TAB PO SCH ×2 (08:44→21:47)
[2019-01-05] MEDS: METOPROLOL SUCC (TopROL XL) 100MG *XL* TAB PO SCH (08:44)
[2019-01-05] MEDS: CALCITRIOL 0.25 MCG CAP (S0169) PO SCH (08:44)
[2019-01-05] MEDS ORDERED: HEPARIN 1,000 UNITS/ML 10ML VIAL (FOR RADIOLOGY& DIALYSIS ONLY) As Ordered ONE (08:46)
[2019-01-05] MEDS ORDERED: LIDOCAINE 2% MDV 20 ML VIAL As Ordered ONE ×2 (08:46→09:31)
--- NOTE | 2019-01-05 09:32 | ECGEPIP ---
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
[2019-01-05] MEDS ORDERED: SODIUM CHLORIDE 0.9% INJ 10 ML SYR IV PRN (12:15)
[2019-01-05] MEDS ORDERED: HEPARIN 1,000 UNITS/ML 10ML VIAL (FOR RADIOLOGY& DIALYSIS ONLY) XX ONE (17:00)
[2019-01-05] MEDS ORDERED: DARBEPOETIN 100 MCG/0.5 ML *DIALYSIS* SYRINGE (J0882) IV SCH (18:00)
[2019-01-05] MEDS ORDERED: IRON SUCROSE 100MG 5ML VIAL (J1756 PER 1MG) IV SCH (18:00)
[2019-01-05] MEDS: SODIUM CHLORIDE 0.9% INJ 10 ML SYR IV SCH (18:00)
--- NOTE | 2019-01-05 18:36 | CR ---
DATE OF CONSULTATION: 01/05/2019 REQUESTING PHYSICIAN: Dr. Tania Unger REASON FOR CONSULTATION: End-stage renal disease, not yet on hemodialysis. HISTORY OF PRESENT ILLNESS: Narcisa Mireles is a 33-year-old female, known to me with a past medical history of chronic kidney disease (CKD), stage V, with a baseline GFR of 10 mL per minute, not yet on hemodialysis. She is a poorly controlled type 1 diabetic since age 9 and has a history of chronic hypertension, secondary hyperparathyroidism, and anemia. She also has a history of arachnoid cyst drainage in the past in [place]. Patient has been poorly compliant in the outpatient setting in terms of medication adherence, blood pressure control, and we had difficulty arranging for timely fistula placement for her. She could not get medical clearance for fistula due to uncontrolled blood pressure. There were also significant socioeconomic hurdles to her care. Patient was seen yesterday in the office, where blood work showed hyperkalemia and acidosis. Patient, of note, has also been complaining of several-week history of nausea and vomiting. She had an MRI done in December 2018 that showed a 7 cm arachnoid cyst with some mild dilatation of the lateral and 3rd ventricle and mild mass effect on the 4th ventricle. In view of the abnormal labs and in view of complaint of nausea and vomiting and abnormal recent MRI brain, patient was directed to come to the hospital for further evaluation and for initiation of chronic hemodialysis. She is seen and examined this morning at the bedside and again in the afternoon in the hemodialysis unit receiving her first treatment. She denies any acute complaints. PAST MEDICAL HISTORY: 1. CKD IV, not yet on hemodialysis. GFR 10 mL per minute. 2. Longstanding poorly controlled type 1 diabetic since age 9. 3. Poorly controlled hypertension. 4. Anemia related to chronic renal failure. 5. Secondary hyperparathyroidism. 6. History of arachnoid cyst, status post drainage in the past with recurrent arachnoid cyst on recent imaging. PAST SURGICAL HISTORY: 1. Cyst drainage. 2. section. 3. Perm-A-Cath placement. SOCIAL HISTORY: She denies alcohol, tobacco, or drug use. She was recently homeless and living in a prison. Now has residence. She has a young son whom she cares for. FAMILY HISTORY: She has a brother who had renal failure, necessitating dialysis. ALLERGIES: LATEX, MORPHINE, and tape. HOME MEDICATIONS: Reviewed and include: - Toprol-XL 200 mg by mouth daily - amlodipine 10 mg by mouth daily - insulin - calcitriol 0.25 mcg by mouth daily - iron 325 mg by mouth twice a day - Lasix 20 mg by mouth twice a day - vitamin D 50,000 units by mouth weekly REVIEW OF SYSTEMS: CONSTITUTIONAL: She denies fevers or chills. EYES: She denies visual changes or tearing. ENT: She denies rhinorrhea, odynophagia, or nose and throat problems. CARDIAC: She denies chest pain or palpitations. RESPIRATORY: She denies shortness of breath or dyspnea on exertion. GASTROINTESTINAL: She reports nausea and vomiting. She denies diarrhea. GENITOURINARY: She denies dysuria or hematuria. She has a history of proteinuria. ENDOCRINE: She reports type 1 diabetes and secondary hyperparathyroidism. MUSCULOSKELETAL: She denies any new myalgias or arthralgias. HEMATOLOGIC: She denies easy bleeding or bruising. NEUROLOGIC: She has a history of brain cysts and drainage. SKIN: She denies rashes or pruritus. Remainder of review of systems is as per history of present illness (HPI). PHYSICAL EXAMINATION: Temperature 96.9, pulse 76, respiratory rate 16, blood pressure 140/85, saturating 98% on room air. Intake today was 1080. Dialysis removed 500 mL. Weight in the bed scale today is 83 kg. GENERAL: Patient is seen in the hemodialysis unit resting comfortably receiving her first dialysis treatment. Extraocular muscles are intact. The tongue is moist. There is a freshly placed tunneled hemodialysis catheter in the right chest wall, which is in use. There is a left peripherally inserted central catheter (PICC) line present. CARDIAC: S1, S2, regular rate and rhythm. LUNGS: Clear to auscultation bilaterally. No crackle or rale. ABDOMEN: Soft and nontender. There are bowel sounds. EXTREMITIES: Negative for edema, clubbing, or cyanosis. NEUROLOGIC: She is oriented times three. No focal deficits. PSYCHIATRIC: She appears depressed. LABORATORY DATA: White count 12.6, hemoglobin 9.0, platelets 550. Sodium 137, potassium 5.5, bicarbonate 18, BUN 42. INPATIENT MEDICATIONS: - Tylenol as needed - amlodipine 10 mg by mouth daily - calcitriol 0.25 mcg by mouth daily - iron 325 mg by mouth twice a day - insulin - metoprolol 200 mg by mouth daily - [place] 8.4 grams by mouth times one. PROBLEMS: 1. Chronic kidney disease (CKD), stage V, to start hemodialysis. Patient has baseline GFR of 10 mL per minute. Due to various hurdles, including poor followup, poor medication adherence, socioeconomic hurdles, this patient was unable to have a timely fistula creation. She was brought into the hospital for Perm-A-Cath placement and hemodialysis initiation in view of recent labs showing hyperkalemia and metabolic acidosis. An additional concern was also her several-week history of reported vomiting and recent abnormal MRI brain, which I felt was another reason for safer initiation of hemodialysis in the inpatient setting. She had a Perm-A-Cath placement by vascular surgery this morning and had her first hemodialysis treatment for 2-1/2 hours this afternoon. She will be set up by case management for an outpatient dialysis chair. Vascular surgery has also kindly agreed to arrange for fistula creation while the patient is in-house, as we have really struggled to accomplish this on the outpatient setting. 2. Hyperkalemia. It is secondary to renal failure, and it will improve with hemodialysis initiation. She is on a renal diet and will need felt hat steamer to review the same with her. 3. Non-anion gap metabolic acidosis. It is due to chronic renal failure and will improve with hemodialysis initiation. 4. Anemia related to iron deficiency and chronic renal failure. The patient will receive Venofer with hemodialysis and will also start on Aranesp. 5. Type 1 diabetes since age 9, poorly controlled in the past but now well controlled, which is likely a consequence of the renal failure. Insulin is managed as per the primary team. The patient denies hypoglycemic episodes. 6. Arachnoid cyst. Please see MRI brain in December 2018. The patient also does complain of significant vomiting over the past several weeks, which I do not feel is attributable to uremia given that her BUN has been less than 50. She did see neurology as an outpatient but has not followed up since. I suggest to repeat noncontrast MRI while she is in-house. 7. Fistula creation. Patient has a PICC line present now in the left arm. [place] avoid any lab draws or IVs in her right arm. Patient is for fistula creation while she is in-house. Thank you for involving me in the care of Ms. Mireles.
[2019-01-05] MEDS: LEVEMIR (INSULIN DETEMIR) 1 UNITS/0.01ML SC SCH (21:47)
[2019-01-06] MEDS ORDERED: hydrOXYzine 25 MG TAB PO ONE (05:00)
[2019-01-06] MEDS: SODIUM CHLORIDE 0.9% INJ 10 ML SYR IV SCH ×2 (05:17→17:38)
[2019-01-06 05:34] LABS: BASO % 0.4 % (0.0-1.0); EOS # 0.5 10^3/uL (0.0-0.50); EOS % 4.5 % (0.0-3.0); HEMATOCRIT 23.5 % (36.0-47.0); HEMOGLOBIN 7.8 g/dl (12.0-15.5); LYMPH # 2.4 10^3/uL (1.5-4.5); LYMPH % 23.3 % (24.0-44.0); MEAN CORPUSCULAR HEMOGLOBIN 29.7 pg (27.0-33.0); MEAN CORPUSCULAR HGB CONC 33.2 g/dl (32.0-36.5); MEAN CORPUSCULAR VOLUME 89.4 fl (80.0-96.0); MONO % 9.4 % (0.0-5.0); NEUTROPHILS # 6.4 10^3/uL (1.8-7.7); NEUTROPHILS % 62.3 % (36.0-66.0); RED BLOOD COUNT 2.63 10^6/uL (4.00-5.40); WHITE BLOOD COUNT 10.3 10^3/uL (4.0-10.0)
[2019-01-06 05:46] LABS: PLATELET COUNT, AUTOMATED 430 10^3/uL (150-450)
[2019-01-06 05:51] LABS: CALCIUM LEVEL 7.5 MG/DL (8.5-10.1); CREATININE FOR GFR 4.73 MG/DL (0.55-1.30); GLOMERULAR FILTRATION RATE 13.9 (>60); POTASSIUM SERUM 4.5 MEQ/L (3.5-5.1)
[2019-01-06 06:00] VITALS: BP 145/82
[2019-01-06] MEDS: HumaLOG INSULIN (NovoLOG) PER UNIT SC SCH ×4 (07:30→21:00)
[2019-01-06] MEDS: CALCITRIOL 0.25 MCG CAP (S0169) PO SCH (09:59)
[2019-01-06] MEDS: amLODIPine 10 MG TAB PO SCH (09:59)
[2019-01-06] MEDS: FERROUS SULFATE 325MG TAB PO SCH ×2 (09:59→21:46)
[2019-01-06] MEDS: METOPROLOL SUCC (TopROL XL) 100MG *XL* TAB PO SCH (10:00)
--- NOTE | 2019-01-06 10:08 | REP ---
MRI brain without contrast: History: Followup on arachnoid cyst. Ventricular size and compression. Comparison MRI study is from December 20, 2018. Findings: A right posterior fossa retro - cerebellar subarachnoid cyst is again noted unchanged from the recent prior study measuring 7.6 cm in right to left dimension by 4.0 cm anteroposterior by 4.4 cm cranial to caudal. Fourth ventricle is normal in size, perhaps slightly deviated to the left. The lateral ventricles are dilated. Third ventricle is slightly prominent as well. Ventricular size and configuration are unchanged. Tiny white matter T2 hyperintensities are again seen in the frontal lobes. There is no evidence to suggest hemorrhage or infarction. No restricted diffusion is seen. Impression: Large posterior fossa right-sided subarachnoid cyst again noted. Ventriculomegaly unchanged from the recent prior study moderate in degree. Electronically Signed by Phil Rizzo MD 01/06/2019 11:19 A
--- NOTE | 2019-01-06 13:48 | IPNPDOC ---
Text Note Date of Service The patient was seen on 01/06/19. NOTE SUBJECTIVE: Feels better today , Nausea or vomiting. Has a good appetite after many days and had a good breakfast. No fever or chills, no chest pain or sob, No abdominal pain or diarrhea. PHYSICAL EXAMINATION: VITAL SIGNS: As below GENERAL APPEARANCE: Patient is awake, alert and oriented 3. She appears no acute distress. She is lying comfortably in bed. HEENT:. Atraumatic, normocephalic. Eyes nonicteric. Trachea is midline. CARDIOVASCULAR:, Normal S1, S2, regular rate and rhythm. No clicks, rubs or murmurs. LUNGS:. Clear to auscultation bilaterally. Good respiratory effort. No wheezes, rhonchi, rales. ABDOMEN:, Soft, nondistended, nontender to palpation. Positive bowel sounds in all 4 quadrants. MUSCULOSKELETAL:. Slight tenderness to palpation of rib cage bilaterally EXTREMITIES:. No edema. Pulses are full and equal bilaterally in upper and lower extremities. PSYCHIATRIC: Mood and affect appear appropriate. Labs and Radiology: reviewed. ASSESSMENT and PLAN: Patient is a 33 year old female who presented to the [facility] emergency department under the direction of her Process Machine Operator, Dr. Bates. Patient is a poorly controlled type I diabetic since age 9 , CKD stage 5, and has a history of chronic hypertension, secondary hyperparathyroidism, and anemia. subarachnoid cyst status post drainage in the past in [place] with recurrent arachnoid cyst on recent imaging with moderate compression of 4th ventricle was to receive a fistula this upcoming week for dialysis. Patient presented to her Process Machine Operator where her labs showed worsening renal function and need for dialysis due to rising potassium and increasing acidosis. Patient was instructed to go to the emergency department where she would be admitted for initiation of hemodialysis. New ESRD initiated on HD semiurgently due to rising K and acidosis via [facility] case management working on outpatient HD set up planned for fistula creation by Dr Delgado during this hospitalization Anemia related to iron deficiency and chronic renal failure. The patient will receive Venofer with hemodialysis and will also start on Aranesp. Will hold of on PRBC transfusion Type 1 diabetes since age 9, poorly controlled in the past but now well controlled, which is likely a consequence of the renal failure. continue on insulin sliding scale and levemir. Hypertension Now better controlled after initiation of HD continue with metoprolol and amlodipine. Arachnoid cyst. Had new MRI this admission when compared to the MRI in Dec no change, there is moderate fouth ventricle compression has seen neurology and has been told that she need to see a neurosurgeon but she has refused so far. will set up follow up with neurology on discharge. DVT prophylaxis has been ordered. VS,Fishbone, I+O VS, Fishbone, I+O Laboratory Tests 01/06/19 05:13 Red Blood Count 2.63 L, Mean Corpuscular Volume 89.4, Mean Corpuscular Hemoglo bin 29.7, Mean Corpuscular Hemoglobin Concent 33.2, Red Cell Distribution Width 12.8, Neutrophils (%) (Auto) 62.3, Lymphocytes (%) (Auto) 23.3 L, Monocytes (%) (Auto) 9.4 H, Eosinophils (%) (Auto) 4.5 H, Basophils (%) (Auto) 0.4, Neutrophils # (Auto) 6.4, Lymphocytes # (Auto) 2.4, Monocytes # (Auto) 1.0 H, Eosinophils # (Auto) 0.5, Basophils # (Auto) 0.0, Calcium Level 7.5 L Vital Signs Date Time Temp Pulse Resp B/P (MAP) Pulse Ox O2 Delivery O2 Flow Rate FiO2 01/06/19 09:59 77 132/84 01/06/19 06:00 98.7 18 100 01/05/19 05:15 Room Air I&O- Last 24 Hours up to 6 AM 01/06/19 06:00 Intake Total 1200 ml Output Total 500 ml Balance 700 ml PORTIA SANTANA MD Jan 06, 2019 13:48
[2019-01-06 14:00] VITALS: BP 114/84
--- NOTE | 2019-01-06 14:53 | IPN ---
DATE OF SERVICE: 01/06/2019 SUBJECTIVE: The patient is seen and examined this morning at the bedside. She is status post first hemodialysis treatment yesterday which she tolerated without any issue. She denies any new complaints. VITAL SIGNS: Temperature 98.7, pulse 81, respiratory rate 18, blood pressure 132/84, saturating 100% on room air. Intake yesterday was 1200. Dialysis yesterday removed 500. Weight in the bed scale today is not recorded. GENERAL: The patient is seen sitting in bed, eating, awake, alert, oriented, comfortable, in no acute distress. HEAD AND NECK: Extraocular muscles are intact. tongue is moist. NECK: Supple. There is a healed incision on her posterior neck from prior cyst drainage. RESPIRATORY: Lungs are clear to auscultation bilaterally. No rale or crackle. CARDIAC: S1, S2, regular rate and rhythm. ABDOMEN: Soft, nontender. There are bowel sounds. EXTREMITIES: Negative for clubbing, cyanosis, or edema. NEUROLOGIC: She is oriented times three. No focal deficits. SKIN: Normal turgor and temperature. There is a tunneled dialysis catheter present in the right chest wall. LABS: White count 10.3, hemoglobin 7.8, platelets 430, sodium 138, potassium 4.5. IMAGING: MRI brain is noted for the large right sided subarachnoid cyst with some changes of the ventricles. IMPATIENT MEDICATIONS: Patient is ordered for Aranesp and Venofer with hemodialysis. She received Hydroxyzine times one dose. Remainder of medications are unchanged from priors. PROBLEMS: 1. End-stage renal disease now on hemodialysis. Patient is pending outpatient hemodialysis setup from case management. She is also pending fistula creation while she is in the hospital. Her next dialysis treatment will be on Thursday. 2. Hyperkalemia. It was secondary to chronic renal failure. It has improved with hemodialysis initiation. She continues on renal diet. 3. Anemia related to iron deficiency and chronic renal failure. The patient is going to start Venofer and Aranesp with dialysis. Repeat CBC tomorrow and if hemoglobin less than 8 we will transfuse, but I would like to try to hold off on blood transfusions on this young female in view of pursuit of kidney transplant going forward. 4. Type 1 diabetes since age 9, poor controlled in the past, but now well controlled, it is likely a consequence of her renal failure. Insulin managed per primary team. 5. Subarachnoid cyst, updated MRI noted. Differ to primary team and neurology in regards to management of her large subarachnoid cyst.
[2019-01-06] MEDS: LEVEMIR (INSULIN DETEMIR) 1 UNITS/0.01ML SC SCH (21:47)
[2019-01-06 22:00] VITALS: BP 176/72
[2019-01-07] MEDS: hydrOXYzine 25 MG TAB PO PRN (01:32)
[2019-01-07 06:00] VITALS: BP 158/64
[2019-01-07] MEDS: SODIUM CHLORIDE 0.9% INJ 10 ML SYR IV SCH ×2 (06:00→17:36)
[2019-01-07 06:30] LABS: BASO # 0.1 10^3/uL (0.0-0.2); BASO % 0.5 % (0.0-1.0); EOS # 0.5 10^3/uL (0.0-0.50); EOS % 4.9 % (0.0-3.0); HEMATOCRIT 24.4 % (36.0-47.0); HEMOGLOBIN 7.8 g/dl (12.0-15.5); LYMPH # 2.7 10^3/uL (1.5-4.5); LYMPH % 25.6 % (24.0-44.0); MEAN CORPUSCULAR HEMOGLOBIN 29.8 pg (27.0-33.0); MEAN CORPUSCULAR VOLUME 93.1 fl (80.0-96.0); MONO # 0.9 10^3/uL (0.0-0.8); NEUTROPHILS # 6.2 10^3/uL (1.8-7.7); NEUTROPHILS % 59.6 % (36.0-66.0); PLATELET COUNT, AUTOMATED 420 10^3/uL (150-450); RED BLOOD COUNT 2.62 10^6/uL (4.00-5.40); WHITE BLOOD COUNT 10.5 10^3/uL (4.0-10.0)
[2019-01-07] MEDS: CALCITRIOL 0.25 MCG CAP (S0169) PO SCH (06:30)
[2019-01-07] MEDS: FERROUS SULFATE 325MG TAB PO SCH ×2 (06:31→21:26)
[2019-01-07] MEDS: METOPROLOL SUCC (TopROL XL) 100MG *XL* TAB PO SCH (06:31)
[2019-01-07] MEDS: amLODIPine 10 MG TAB PO SCH (06:31)
[2019-01-07 06:51] LABS: CALCIUM LEVEL 7.7 MG/DL (8.5-10.1); CREATININE FOR GFR 5.45 MG/DL (0.55-1.30); GLOMERULAR FILTRATION RATE 11.8 (>60); POTASSIUM SERUM 4.8 MEQ/L (3.5-5.1)
[2019-01-07] MEDS: HumaLOG INSULIN (NovoLOG) PER UNIT SC SCH ×4 (07:30→21:27)
[2019-01-07] MEDS ORDERED: HEPARIN 1,000 UNITS/ML 10ML VIAL (FOR RADIOLOGY& DIALYSIS ONLY) XX ONE (12:45)
[2019-01-07] MEDS ORDERED: HEPARIN 1,000 UNITS/ML 10ML VIAL (FOR RADIOLOGY& DIALYSIS ONLY) IV ONE (12:45)
[2019-01-07] MEDS ORDERED: diphenhydrAMINE 25 MG CAP PO PRN (14:30)
--- NOTE | 2019-01-07 20:47 | IPNPDOC ---
Text Note Date of Service The patient was seen on 01/07/19. NOTE SUBJECTIVE: Patient does not offer any complaints this morning. still will low hh, received 1 unit of PRBC. PHYSICAL EXAMINATION: VITAL SIGNS: As below GENERAL APPEARANCE: Patient is awake, alert and oriented 3. She appears no acute distress. She is lying comfortably in bed. HEENT:. Atraumatic, normocephalic. Eyes nonicteric. Trachea is midline. CARDIOVASCULAR:, Normal S1, S2, regular rate and rhythm. No clicks, rubs or murmurs. LUNGS:. Clear to auscultation bilaterally. Good respiratory effort. No wheezes, rhonchi, rales. ABDOMEN:, Soft, nondistended, nontender to palpation. Positive bowel sounds in all 4 quadrants. MUSCULOSKELETAL:. Slight tenderness to palpation of rib cage bilaterally EXTREMITIES:. No edema. Pulses are full and equal bilaterally in upper and lower extremities. PSYCHIATRIC: Mood and affect appear appropriate. Labs and Radiology: reviewed. ASSESSMENT and PLAN: Patient is a 33 year old female who presented to the [facility] emergency department under the direction of her Cantilever Crane Operator, Dr. Bates. Patient is a poorly controlled type I diabetic since age 9 , CKD stage 5, and has a history of chronic hypertension, secondary hyperparathyroidism, and anemia. subarachnoid cyst status post drainage in the past in [place] with recurrent arachnoid cyst on recent imaging with moderate compression of 4th ventricle was to receive a fistula this upcoming week for dialysis. Patient presented to her Cantilever Crane Operator where her labs showed worsening renal function and need for dialysis due to rising potassium and increasing acidosis. Patient was instructed to go to the emergency department where she would be admitted for initiation of hemodialysis. New ESRD initiated on HD semiurgently due to rising K and acidosis via [facility] case management working on outpatient HD set up planned for fistula creation by Dr Delgado during this hospitalization Anemia related to iron deficiency and chronic renal failure. The patient will receive Venofer with hemodialysis and will also start on Aranesp. 1 unit of PRBC transfused. Type 1 diabetes since age 9, poorly controlled in the past but now well controlled, which is likely a consequence of the renal failure. continue on insulin sliding scale and levemir. Hypertension Now better controlled after initiation of HD continue with metoprolol and amlodipine. Sub Arachnoid cyst. Says had cyst before previously drained in [place]. Mri now shows a right posterior fossa retro - cerebellar subarachnoid cyst is again noted unchanged from the recent prior study measuring 7.6 cm in right to left dimension by 4.0 cm anteroposterior by 4.4 cm cranial to caudal. Fourth ventricle is normal in size, perhaps slightly deviated to the left. The lateral ventricles are dilated. Third ventricle is slightly prominent as well. Ventricular size and configuration are unchanged. Has seen neurology and has been told that she need to see a neurosurgeon but she has refused so far. will set up follow up with neurology on discharge. DVT prophylaxis has been ordered. VS,Fishbone, I+O VS, Fishbone, I+O Laboratory Tests 01/07/19 05:57 Red Blood Count 2.62 L, Mean Corpuscular Volume 93.1, Mean Corpuscular Hemoglobin 29.8, Mean Corpuscular Hemoglobin Concent 32.0, Red Cell Distribution Width 13.0, Neutrophils (%) (Auto) 59.6, Lymphocytes (%) (Auto) 25.6, Monocytes (%) (Auto) 9.0 H, Eosinophils (%) (Auto) 4.9 H, Basophils (%) (Auto) 0.5, Neutrophils # (Auto) 6.2, Lymphocytes # (Auto) 2.7, Monocytes # (Auto) 0.9 H, Eosinophils # (Auto) 0.5, Basophils # (Auto) 0.1, Calcium Level 7.7 L Vital Signs Date Time Temp Pulse Resp B/P (MAP) Pulse Ox O2 Delivery O2 Flow Rate FiO2 01/07/19 06:31 78 158/64 01/07/19 06:00 97.6 18 99 01/05/19 05:15 Room Air I&O- Last 24 Hours up to 6 AM 01/07/19 06:00 Intake Total 1830 ml Output Total 300 ml Balance 1530 ml PORTIA SANTANA MD Jan 07, 2019 20:47
[2019-01-07] MEDS: LEVEMIR (INSULIN DETEMIR) 1 UNITS/0.01ML SC SCH (21:27)
[2019-01-07 21:53] VITALS: BP 152/80
[2019-01-07 22:00] VITALS: BP 145/86
[2019-01-07 22:47] LABS: MAGNESIUM LEVEL 1.5 MG/DL (1.8-2.4); PHOSPHORUS LEVEL 2.8 MG/DL (2.5-4.9); POTASSIUM SERUM 3.7 MEQ/L (3.5-5.1)
[2019-01-08 02:45] VITALS: BP 150/72
[2019-01-08 05:56] LABS: BASO # 0.1 10^3/uL (0.0-0.2); BASO % 0.5 % (0.0-1.0); EOS # 0.5 10^3/uL (0.0-0.50); EOS % 4.7 % (0.0-3.0); HEMATOCRIT 27.9 % (36.0-47.0); HEMOGLOBIN 8.9 g/dl (12.0-15.5); LYMPH # 2.1 10^3/uL (1.5-4.5); LYMPH % 17.9 % (24.0-44.0); MEAN CORPUSCULAR HEMOGLOBIN 28.7 pg (27.0-33.0); MEAN CORPUSCULAR HGB CONC 31.9 g/dl (32.0-36.5); NEUTROPHILS # 7.7 10^3/uL (1.8-7.7); NEUTROPHILS % 67.5 % (36.0-66.0); PLATELET COUNT, AUTOMATED 380 10^3/uL (150-450); WHITE BLOOD COUNT 11.5 10^3/uL (4.0-10.0)
[2019-01-08 06:00] VITALS: BP 154/90
[2019-01-08 06:21] LABS: CALCIUM LEVEL 7.3 MG/DL (8.5-10.1); CREATININE FOR GFR 3.9 MG/DL (0.55-1.30); GLOMERULAR FILTRATION RATE 17.3 (>60)
[2019-01-08] MEDS: SODIUM CHLORIDE 0.9% INJ 10 ML SYR IV SCH ×2 (06:38→17:45)
--- NOTE | 2019-01-08 07:27 | IPN ---
DATE OF SERVICE: 01/07/2019 SUBJECTIVE: Patient seen and examined this morning on hemodialysis. She is receiving her second treatment. She is receiving 1 unit packed red blood cells with dialysis. She complains of a generalized pruritus. She denies any new complaints. VITAL SIGNS: Temperature 97.6, pulse 87, respiratory rate 18, blood pressure 158/64, saturating 99% on room air. Intake yesterday was 1560. Dialysis today removed 500. Weight in the bed scale today is not recorded. GENERAL: Patient is seen on dialysis, awake, alert, oriented, comfortable, no acute distress. Extraocular muscles are intact. Tongue is moist. NECK: Is supple. There is a healed incision on her posterior neck from prior arachnoid cyst drainage. Her tunneled hemodialysis catheter is in use. Lungs are clear to auscultation bilaterally. No crackle or rale. CARDIAC: S1, S2, regular rate and rhythm. ABDOMEN: Is soft and nontender. There are bowel sounds. EXTREMITIES: Are negative for clubbing, cyanosis, or edema. There is a peripherally inserted central catheter (PICC) line present in the left upper extremity. NEUROLOGIC: She is oriented times three. No focal deficit. SKIN: Normal turgor and temperature. LABS: White count 10.5, hemoglobin 7.8, platelets 420, sodium 137, potassium 4.8. IMPATIENT MEDICATIONS: Benadryl as needed is ordered. Remainder of medications are unchanged from prior. PROBLEMS: 1. End-stage renal disease on hemodialysis. Patient is status post her second hemodialysis treatment. She is pending fistula creation while she is in the hospital. She also needs arrangement of outpatient hemodialysis chair time. 2. Anemia related to iron deficiency and chronic renal failure. Hemoglobin is 7.8. She is being transfused 1 unit packed red blood cells with dialysis today. She is receiving Venofer and Aranesp as well. 3. Type 1 diabetic since age 9, poorly controlled in the past but now well controlled, likely is a consequence of her renal failure. Insulin managed per primary team. 4. Subarachnoid cyst. Updated MRI noted. Compliance with followup as an outpatient has been hit or miss. Consider neurology evaluation while in-house. 5. Hypertension. Patient continues on metoprolol and amlodipine.
[2019-01-08] MEDS: HumaLOG INSULIN (NovoLOG) PER UNIT SC SCH ×4 (07:30→20:56)
[2019-01-08] MEDS: CALCITRIOL 0.25 MCG CAP (S0169) PO SCH (08:35)
[2019-01-08] MEDS: amLODIPine 10 MG TAB PO SCH (08:35)
[2019-01-08] MEDS: FERROUS SULFATE 325MG TAB PO SCH ×2 (08:35→20:56)
[2019-01-08] MEDS: METOPROLOL SUCC (TopROL XL) 100MG *XL* TAB PO SCH (08:36)
--- NOTE | 2019-01-08 11:16 | IPN ---
DATE: 01/08/2019 PRIMARY CARE PROVIDER: Dr. Rasheed Unger ATTENDING PHYSICIAN: Dr. Tania Unger Narcisa is seen on [place]. She was admitted with end-stage renal disease secondary to uncontrolled longstanding type 1 diabetes. She is being followed by nephrology and is receiving dialysis during this hospitalization with plans for fistula creation by Dr. Delgado in interventional radiology during this hospitalization. She has anemia secondary to iron deficiency and chronic renal failure, and received Venofer and Aranesp in dialysis. She has type 1 diabetes, which has come under control on an enforced medical regimen. Hypertension is under good control with her current regimen. She has a subarachnoid cyst that is large and causes ventriculomegaly, stable from December. She has seen neurology in the past, and I had a long discussion with the patient today. She understands the need to followup with neurology after discharge, understands the implications of failing to do this, and agrees to followup after she is discharged. Apparently this had previously been addressed by neurosurgery while she lived in [place]. She expressed to me a clear understanding of the implications with failing to followup with neurology after discharge. PHYSICAL EXAMINATION: Vital signs stable. Lungs: Clear. Heart: Regular rhythm. Abdomen: Soft, nontender. No peripheral edema. Neurologic Exam: Nonfocal. LABORATORY: Hemoglobin is 8.9, potassium is 4.0, blood sugars have been all below 150. IMPRESSION: 1. Type 1 diabetes. She is on detemir insulin, sliding scale with excellent control of her diabetes on an enforced regimen. 2. End-stage renal disease. Per nephrology. She is getting intermittent dialysis and plans are for fistula creation during this hospitalization by Dr. eDlgado from interventional radiology. 3. Hypertension. Blood pressure well controlled on amlodipine 10 mg daily, Toprol XL 200 mg daily. 4. Iron deficiency anemia/anemia secondary to chronic kidney disease. She received IV iron and Aranesp, and this is being managed by the remote advisor. She will be in the hospital until after the fistula is created and stabilized. Patient needs an appointment with [facility] Neurology after discharge, and though I do not know when she is going home, I have already put the request in her discharge orders that an appointment be made for her to see neurology at the time of her discharge. Edited 01/08/2019 [facility]
[2019-01-08 14:00] VITALS: BP 164/91
[2019-01-08] MEDS: ACETAMINOPHEN TAB 650MG DOSE (2X325MG) PO PRN (14:37)
[2019-01-08] MEDS: ONDANSETRON 4MG/2ML VIAL (J2405) IV PRN (17:44)
--- NOTE | 2019-01-08 17:49 | ECGEPIP ---
Stationary ECG Study [facility] Test Date: 2019-01-07 Pat Name: KATELYN COLLINS Department: Room: [place] [address] Gender: F Cardiology Associate: : [id number] Requested By: AMANDA SHIRLEY Order Number: [id number] Reading MD: Evgeny Garza Measurements Intervals [place] Rate: 90 P: 64 RI: 141 QRS: 71 QRSD: 73 T: 149 QT: 344 QTc: 421 Interpretive Statements SINUS RHYTHM Subtly different ST-Twave changes when compared to tracing done 01-04-19 Electronically Signed On 01-08-2019 17:48:53 EST by Evgeny Garza
[2019-01-08] MEDS: LEVEMIR (INSULIN DETEMIR) 1 UNITS/0.01ML SC SCH (20:57)
[2019-01-08 22:00] VITALS: BP 165/89
[2019-01-09 05:28] LABS: BASO % 0.3 % (0.0-1.0); EOS # 0.4 10^3/uL (0.0-0.50); EOS % 3.2 % (0.0-3.0); HEMATOCRIT 28.6 % (36.0-47.0); HEMOGLOBIN 9.4 g/dl (12.0-15.5); LYMPH # 1.1 10^3/uL (1.5-4.5); LYMPH % 9.6 % (24.0-44.0); MEAN CORPUSCULAR HEMOGLOBIN 28.7 pg (27.0-33.0); MEAN CORPUSCULAR HGB CONC 32.9 g/dl (32.0-36.5); MEAN CORPUSCULAR VOLUME 87.2 fl (80.0-96.0); MONO # 0.5 10^3/uL (0.0-0.8); MONO % 4.7 % (0.0-5.0); NEUTROPHILS # 9.3 10^3/uL (1.8-7.7); NEUTROPHILS % 81.8 % (36.0-66.0); PLATELET COUNT, AUTOMATED 384 10^3/uL (150-450); RED BLOOD COUNT 3.28 10^6/uL (4.00-5.40); WHITE BLOOD COUNT 11.4 10^3/uL (4.0-10.0)
[2019-01-09] MEDS: SODIUM CHLORIDE 0.9% INJ 10 ML SYR IV SCH ×2 (05:37→17:17)
[2019-01-09 05:52] LABS: CALCIUM LEVEL 7.6 MG/DL (8.5-10.1); CREATININE FOR GFR 4.94 MG/DL (0.55-1.30); GLOMERULAR FILTRATION RATE 13.2 (>60)
[2019-01-09 06:00] VITALS: BP 135/70
[2019-01-09] MEDS: ACETAMINOPHEN TAB 650MG DOSE (2X325MG) PO PRN ×3 (07:03→19:06)
[2019-01-09] MEDS: HumaLOG INSULIN (NovoLOG) PER UNIT SC SCH ×4 (07:28→20:34)
[2019-01-09] MEDS: amLODIPine 10 MG TAB PO SCH (08:18)
[2019-01-09] MEDS: CALCITRIOL 0.25 MCG CAP (S0169) PO SCH (08:18)
[2019-01-09] MEDS: ONDANSETRON 4MG/2ML VIAL (J2405) IV PRN (08:19)
[2019-01-09] MEDS: FERROUS SULFATE 325MG TAB PO SCH ×2 (08:19→20:34)
[2019-01-09] MEDS: METOPROLOL SUCC (TopROL XL) 100MG *XL* TAB PO SCH (08:19)
[2019-01-09 11:48] LABS: MAGNESIUM LEVEL 1.3 MG/DL (1.8-2.4)
[2019-01-09 14:00] VITALS: BP 136/83
[2019-01-09] MEDS: MAG SULF 1GM/100ML (MAG RUN) 1 GM in APPROPRIATE DILUENT 1 EA IV SCH ×2 (18:18→18:24)
[2019-01-09] MEDS: LEVEMIR (INSULIN DETEMIR) 1 UNITS/0.01ML SC SCH (20:34)
[2019-01-09 22:00] VITALS: BP 130/70
[2019-01-10 06:00] VITALS: BP 120/70
[2019-01-10] MEDS: SODIUM CHLORIDE 0.9% INJ 10 ML SYR IV SCH ×2 (06:35→22:10)
[2019-01-10] MEDS: HumaLOG INSULIN (NovoLOG) PER UNIT SC SCH ×4 (07:30→22:11)
[2019-01-10] MEDS: FERROUS SULFATE 325MG TAB PO SCH ×2 (09:00→22:11)
[2019-01-10] MEDS: CALCITRIOL 0.25 MCG CAP (S0169) PO SCH (09:00)
[2019-01-10] MEDS: amLODIPine 10 MG TAB PO SCH (09:00)
[2019-01-10] MEDS: METOPROLOL SUCC (TopROL XL) 100MG *XL* TAB PO SCH (09:01)
[2019-01-10] MEDS: ACETAMINOPHEN TAB 650MG DOSE (2X325MG) PO PRN (09:01)
[2019-01-10 09:38] LABS: BASO % 0.2 % (0.0-1.0); EOS # 0.6 10^3/uL (0.0-0.50); EOS % 5.1 % (0.0-3.0); HEMATOCRIT 30.7 % (36.0-47.0); LYMPH # 2.3 10^3/uL (1.5-4.5); LYMPH % 18.6 % (24.0-44.0); MEAN CORPUSCULAR HEMOGLOBIN 28.8 pg (27.0-33.0); MEAN CORPUSCULAR HGB CONC 32.6 g/dl (32.0-36.5); MEAN CORPUSCULAR VOLUME 88.5 fl (80.0-96.0); MONO # 0.9 10^3/uL (0.0-0.8); MONO % 7.4 % (0.0-5.0); NEUTROPHILS # 8.3 10^3/uL (1.8-7.7); PLATELET COUNT, AUTOMATED 330 10^3/uL (150-450); RED BLOOD COUNT 3.47 10^6/uL (4.00-5.40); WHITE BLOOD COUNT 12.2 10^3/uL (4.0-10.0)
[2019-01-10 10:37] LABS: CALCIUM LEVEL 8.4 MG/DL (8.5-10.1); CREATININE FOR GFR 5.53 MG/DL (0.55-1.30); GLOMERULAR FILTRATION RATE 11.6 (>60); MAGNESIUM LEVEL 2.2 MG/DL (1.8-2.4); POTASSIUM SERUM 4.5 MEQ/L (3.5-5.1)
--- NOTE | 2019-01-10 11:00 | IPN ---
DATE OF VISIT: 01/08/2019 Ms. Mireles is seen this morning on her bedside. She is eating breakfast and reports feeling well. She denies any nausea, vomiting, dyspnea or chest pain. She has been dialyzed twice since admission and she has tolerated her dialysis very well. She is waiting for arteriovenous (AV) fistula creation before she can be discharged. She also had uncontrolled hypertension, which seems to be doing very well since she is in hospital. On physical exam, temperature 98.5 degrees Fahrenheit, heart rate 82 per minute and respiratory rate 18 per minute. Blood pressure 154/90 mmHg and oxygen saturation 100% on room air. Head is atraumatic. Neck is supple and without jugular venous distention (JVD) or thyroid enlargement. She has no oral thrush or ulcers. Hemodialysis catheter in right internal jugular vein is intact. Heart sounds are regular and lungs sound clear to auscultation. Abdomen soft and nontender and bowel sounds are normal. Extremities have no cyanosis or clubbing. Neurologically, she is awake, alert and at her baseline mentation. Today's labs show WBC count 11.5, hemoglobin 8.9 and hematocrit 27.9. Sodium 138, potassium 4.0, CO2 26, BUN 26 and creatinine 3.90. Glucose 95 and calcium 7.3. PROBLEMS: 1. End-stage renal disease. Patient has already started dialysis and she has been dialyzed twice. We will plan to dialyze her again next week. She has a Perma-Cath currently, which is being used and she will need an AV fistula creation before she can be discharged. We tried multiple times as an outpatient. However, her blood pressure has been poorly controlled and she was not able to get her surgery as an outpatient. 2. Anemia. Overall her anemia is stable and we will continue to monitor and treat it with Aranesp and iron supplement during dialysis. There is no emergent indication for a transfusion. 3. Hypertension. Blood pressure seems to be doing very well on current antihypertensive medications. No changes are being made today.
[2019-01-10] MEDS ORDERED: HEPARIN 1,000 UNITS/ML 10ML VIAL (FOR RADIOLOGY& DIALYSIS ONLY) IV ONE (11:15)
[2019-01-10] MEDS ORDERED: HEPARIN 1,000 UNITS/ML 10ML VIAL (FOR RADIOLOGY& DIALYSIS ONLY) XX ONE (11:15)
--- NOTE | 2019-01-10 11:47 | IPN ---
DATE: 01/10/2019 Narcisa is on the hospitalist service. Type 1 diabetic who is here for initiation of hemodialysis for end stage renal disease. She became hypoglycemic yesterday. She said that she had poor oral intake with nausea and vomiting. I do not see where anyone was called to initiate some dextrose containing IV fluid. She is seen without benefit of yesterday's progress note, which has not yet been transcribed. PHYSICAL EXAMINATION: Afebrile. Vital signs stable. LUNGS: Clear. HEART: Regular rhythm. ABDOMEN: Soft, nontender. EXTREMITIES: No peripheral edema. LABORATORIES: Potassium today is 4.5, creatinine 5.5, white count 12, hemoglobin 10, platelets 330. Blood sugar was 54 this morning and now it is up to 90 on recheck. IMPRESSION: 1. Hypoglycemia. Her oral intake is better today. I talked to the nursing staff about assuring oral intake and if she is not able to take orally then call and we will give her some dextrose containing IV fluid. It is important that she continue receiving her insulin as she is type 1 diabetic and will go into diabetic ketoacidosis if her insulin is held for too long. 2. End stage renal disease. Per nephrology. She has intermittent dialysis. I have communicated with Dr. Delgado, who is on consult and placed a PermaCath on her and is planning a fistula placement during this hospitalization.
[2019-01-10 13:53] VITALS: BP 120/89
--- NOTE | 2019-01-10 14:59 | IPN ---
DATE: 01/09/2019 Ms. Mireles is seen this morning on her bedside. She is not feeling well and reports diarrhea and vomiting since last evening. She has no fever or chills. She was admitted with worsening renal function and uremic symptoms. She has been dialyzed twice. On physical exam, temperature is 100.1 degrees Fahrenheit, heart rate 92 per minute and respiratory rate 20 per minute. Blood pressure 135/70 mmHg and oxygen saturation 100% on room air. Head is atraumatic. Neck is supple and without JVD or thyroid enlargement. Neck veins are not abnormally distended. A dialysis catheter in right internal jugular vein is intact. Heart sounds regular and lungs clear to auscultation. Abdomen is soft and bowel sounds are present. Extremities have no cyanosis or clubbing. Neurologically she is at her baseline mentation. Today's labs show WBC count 11.4, hemoglobin 9.4 and hematocrit 28.6. Platelets 384. Sodium 135, potassium 4.0, CO2 25, BUN 35 and creatinine 4.94. Magnesium level is 1.3. PROBLEMS: 1. End-stage renal disease. Patient has been dialyzed twice. We will plan to dialyze her again tomorrow. There is no emergent need for dialysis today. 2. Diarrhea and vomiting, most likely viral problem. I do not feel that she has uremic gastritis or uremic colitis. She has been dialyzed already twice and will be dialyzed again tomorrow. 3. Anemia. Her anemia has started to improve and we will continue to manage with Aranesp during dialysis once a week and intravenous iron as needed. There is no emergent need for a transfusion. 4. Hypertension. Blood pressure control has improved since admission and no changes are being made today. 5. Dialysis access. The patient has a PermaCath in place to go for temporary use and will need an AV fistula creation. She could not get her procedure done as an outpatient for AV fistula due to chronic uncontrolled hypertension. Now her blood pressure is well-controlled and we would like to get fistula created. PROBLEM His diarrhea and vomiting
[2019-01-10] MEDS: hydrOXYzine 25 MG TAB PO PRN (19:12)
[2019-01-10 22:00] VITALS: BP 138/90
[2019-01-10] MEDS: LEVEMIR (INSULIN DETEMIR) 1 UNITS/0.01ML SC SCH (22:30)
[2019-01-11 06:00] VITALS: BP 152/89
[2019-01-11] MEDS: SODIUM CHLORIDE 0.9% INJ 10 ML SYR IV SCH ×2 (06:11→18:04)
[2019-01-11 07:29] LABS: CALCIUM LEVEL 7.9 MG/DL (8.5-10.1); CREATININE FOR GFR 3.74 MG/DL (0.55-1.30); GLOMERULAR FILTRATION RATE 18.2 (>60); POTASSIUM SERUM 3.8 MEQ/L (3.5-5.1)
--- NOTE | 2019-01-11 07:56 | IPN ---
DATE: 01/10/2019 Ms. Mireles is seen this morning on her bedside. Yesterday she had vomiting and diarrhea which has improved. She is sitting at the edge of bed eating breakfast. She feels much better today and denies any nausea, abdominal pain, dyspnea, chest pain, fever or chills. PHYSICAL EXAMINATION: Temperature 97.3 degrees Fahrenheit, heart rate 72 per minute and respiratory rate 18 per minute. Blood pressure 120/70 mmHg and oxygen saturation 99% on room air. Head: Is atraumatic. Neck is supple and JVD is not abnormally elevated. She has a new Perma-Cath in her right internal jugular vein. Heart: Sounds are regular and lungs clear to auscultation. Abdomen is soft and nontender and bowel sounds are normal. Extremities: Without any cyanosis or clubbing. Neurologically she is at her baseline mentation. Today's labs show WBC count 12.2, hemoglobin 10.0, hematocrit 30.7. Sodium 138, potassium 4.5, CO2 17, BUN 41 and creatinine 5.53. Her glucose was 61 this morning and calcium 8.4. Her most recent fingerstick blood sugars is now 90. PROBLEMS: 1. End-stage renal disease. The patient has started dialysis during this hospitalization. She is going to be dialyzed again this afternoon. 2. Metabolic acidosis. She has developed mild metabolic acidosis related to end-stage renal disease and diarrhea. This will be corrected with dialysis today. No other intervention is indicated. 3. Anemia. Her anemia is gradually improving and she will continue with Aranesp with dialysis treatments. 4. Hypertension. Blood pressure is very well controlled on current antihypertensive meds. Outpatient, she has been noncompliant with medications and blood pressure always runs quite high however with the same medications in the hospital her blood pressure is very well controlled. 5. Dialysis access. The patient is waiting for AV fistula creation prior to discharge. I have already communicated with Dr. Delgado for it.
[2019-01-11] MEDS: CALCITRIOL 0.25 MCG CAP (S0169) PO SCH (09:10)
[2019-01-11] MEDS: METOPROLOL SUCC (TopROL XL) 100MG *XL* TAB PO SCH (09:10)
[2019-01-11] MEDS: amLODIPine 10 MG TAB PO SCH (09:11)
[2019-01-11] MEDS: HumaLOG INSULIN (NovoLOG) PER UNIT SC SCH ×4 (09:11→21:00)
[2019-01-11] MEDS: FERROUS SULFATE 325MG TAB PO SCH ×2 (09:11→21:47)
[2019-01-11 12:04] LABS: BASO % 0.4 % (0.0-1.0); EOS # 0.5 10^3/uL (0.0-0.50); EOS % 4.8 % (0.0-3.0); HEMATOCRIT 27.1 % (36.0-47.0); HEMOGLOBIN 8.8 g/dl (12.0-15.5); LYMPH % 19.4 % (24.0-44.0); MEAN CORPUSCULAR HEMOGLOBIN 29.4 pg (27.0-33.0); MEAN CORPUSCULAR HGB CONC 32.5 g/dl (32.0-36.5); MEAN CORPUSCULAR VOLUME 90.6 fl (80.0-96.0); MONO # 1.1 10^3/uL (0.0-0.8); MONO % 10.9 % (0.0-5.0); NEUTROPHILS # 6.6 10^3/uL (1.8-7.7); NEUTROPHILS % 63.9 % (36.0-66.0); PLATELET COUNT, AUTOMATED 353 10^3/uL (150-450); RED BLOOD COUNT 2.99 10^6/uL (4.00-5.40); WHITE BLOOD COUNT 10.4 10^3/uL (4.0-10.0)
[2019-01-11 14:00] VITALS: BP 116/70
[2019-01-11] MEDS: ACETAMINOPHEN TAB 650MG DOSE (2X325MG) PO PRN (14:52)
--- NOTE | 2019-01-11 16:09 | IPN ---
DATE: 01/11/2019 SUBJECTIVE: Patient is seen and examined in the range of motion today. Patient denies any acute complaints. No events reported. OBJECTIVE: VITAL SIGNS: Temperature is 98, pulse 80, respirations 17, blood pressure 152/89, pulse ox 98% on room air. GENERAL: Patient is alert and awake, comfortable. HEENT: Normocephalic, atraumatic. Extraocular movements grossly intact. CARDIOVASCULAR: Positive S1, S2, regular rate. LUNGS: Clear to auscultation bilaterally. ABDOMEN: Soft, nontender, bowel sounds present. MUSCULOSKELETAL: Patient has a PermaCath in right front chest. EXTREMITIES: No lower extremity swelling. LABORATORY DATA: WBC is 10.4, hemoglobin 8.8, hematocrit 27.1, platelet count is 353. Sodium is 137, potassium 3.8, chloride 103. Carbon dioxide 26, BUN 21, creatinine 3.74. GFR is 18.2. Fasting glucose 106. Calcium 7.9. ASSESSMENT AND PLAN: 1. End-stage renal disease. Patient has a PermaCath, on hemodialysis. Nephrology is consulted. Appreciate their assistance. Patient waiting for the arteriovenous (AV) fistula creation prior to discharge. 2. Anemia. Started on Aranesp. Continue to followup with hemoglobin, hematocrit. Asymptomatic at this point. 3. Hypertension. Blood pressure in the satisfactory range. On Norvasc, metoprolol. 4. Type 1 diabetes. On insulin. 5. Medial noncompliance complicating patient's case. 6. Deep venous thrombosis (DVT) prophylaxis. On TEDs and compressions.
[2019-01-11] MEDS: LEVEMIR (INSULIN DETEMIR) 1 UNITS/0.01ML SC SCH (21:00)
--- NOTE | 2019-01-11 21:28 | IPN ---
DATE: 01/09/2019 Admitted with end-stage renal disease secondary to uncontrolled longstanding type 1 diabetes. She is being followed by nephrology. She is receiving dialysis during this hospitalization with plans for a fistula creation by Dr. Delgado in interventional radiology. She has anemia secondary to iron deficiency and chronic renal failure. She has received Venofer and Aranesp in dialysis. She has a subarachnoid cyst that is large and causes ventriculomegaly. She will need to followup with neurology and have an appointment at discharge. Dr. Guo discussed thoroughly with her the importance of keeping her appointment and implications of failing to do this. I reiterated that to her as well today, and she agrees to followup. She had a complaint of achiness, not feeling well. Flu swab was done and negative. Telemetry showed sinus rhythmn prior to her metoprolol, she had two or three beats of ventricular tachycardia (V-tach). Magnesium level was done and was 1.4, so IV magnesium run has been ordered. PHYSICAL EXAMINATION: Blood pressure 136/83, pulse 81, respiratory rate 20, temperature 99.5, pulse oximetry 100. Patient is alert and oriented times three. Pharynx, tongue, gums pink and moist. Tongue is midline. NECK: Supple without lymphadenopathy. No thyromegaly. No goiter. CHEST: Clear to auscultation without wheeze or retraction. HEART: Regular. ABDOMEN: Benign. Bowel sounds positive. GENITOURINARY/RECTAL: Not done. EXTREMITIES: No cyanosis, clubbing, or edema. Full range of motion. Peripheral pulse equal and palpable bilaterally. SKIN: Warm and dry. LABORATORY STUDIES: WBC 11.4, hemoglobin 9.4, hematocrit 28.6, platelets 384. Sodium slightly low at 135, potassium 4.0, chloride 104, CO2 of 25, BUN of 35, creatinine 4.94. Blood sugar this morning 102. IMPRESSION: 1. Type 1 diabetes. Continue Detemir insulin, sliding scale for control of her diabetes. 2. End-stage renal disease. Treatment per nephrology. She is getting intermittent dialysis. Plan is for fistula creation during this hospitalization by Dr. Delgado. 3. Hypertension. Blood pressure well controlled. 4. Iron deficiency anemia. Being managed by the production staff worker. 5. Couplets and triplets premature ventricular contractions (PVCs) this morning. 6. Low magnesium of 1.4. Magnesium sulfate IV run times 2 grams total. MTDD
[2019-01-11 22:00] VITALS: BP 136/77
[2019-01-12 06:00] VITALS: BP 140/83
[2019-01-12] MEDS: SODIUM CHLORIDE 0.9% INJ 10 ML SYR IV SCH ×2 (06:04→22:11)
[2019-01-12 06:24] LABS: BASO % 0.4 % (0.0-1.0); EOS # 0.6 10^3/uL (0.0-0.50); EOS % 5.2 % (0.0-3.0); HEMATOCRIT 27.8 % (36.0-47.0); HEMOGLOBIN 8.9 g/dl (12.0-15.5); MEAN CORPUSCULAR HEMOGLOBIN 29.3 pg (27.0-33.0); MEAN CORPUSCULAR VOLUME 91.4 fl (80.0-96.0); MONO # 1.1 10^3/uL (0.0-0.8); MONO % 10.3 % (0.0-5.0); NEUTROPHILS # 5.9 10^3/uL (1.8-7.7); NEUTROPHILS % 55.2 % (36.0-66.0); PLATELET COUNT, AUTOMATED 400 10^3/uL (150-450); RED BLOOD COUNT 3.04 10^6/uL (4.00-5.40); WHITE BLOOD COUNT 10.7 10^3/uL (4.0-10.0)
[2019-01-12 06:45] LABS: CALCIUM LEVEL 7.9 MG/DL (8.5-10.1); CREATININE FOR GFR 4.74 MG/DL (0.55-1.30); GLOMERULAR FILTRATION RATE 13.8 (>60); POTASSIUM SERUM 4.1 MEQ/L (3.5-5.1)
--- NOTE | 2019-01-12 09:22 | IPN ---
DATE: 01/11/2019 Ms. Mireles is seen this morning on her bedside. She is feeling better today and denies any complaints. She has no dyspnea, chest pain, vomiting or diarrhea. Yesterday and she had GI symptoms which have resolved. PHYSICAL EXAMINATION: Temperature 98 degrees Fahrenheit, heart rate 80 per minute and respiratory rate 17 per minute. Blood pressure 152/89 mmHg and oxygen saturation 98% on room air. Her head is atraumatic. Neck is supple and without jugular venous distention (JVD) or thyroid enlargement. Right-sided internal jugular vein Perma-Cath in place. Heart sounds are regular. Lung sound clear to auscultation. Abdomen soft and nontender and bowel sounds are normal. Extremities have no cyanosis or clubbing. Neurologically, she is awake, alert and oriented times three. Today's labs show WBC count 10.4, hemoglobin 8.8 and hematocrit 27.1. Sodium 137, potassium 3.8, CO2 26, BUN 21 and creatinine 3.74. Glucose 106 and calcium 7.9. PROBLEMS: 1. End-stage renal disease: The patient was dialyzed yesterday and we will plan to dialyze her again tomorrow. I have requested the patient family services to arrange for outpatient dialysis. Currently, we are using a Perma-Cath and waiting for an AV fistula creation. If outpatient dialysis slot is available, then she can probably have her AV fistula surgery done as an outpatient and can be discharged. 2. Hypertension: Blood pressure is much better controlled as she is taking her medications regularly. We feel strongly that she was not taking her medications appropriately at home. 3. Anemia: Her anemia is slightly worse than yesterday. No active blood loss noted. We will follow up her CBC again tomorrow. She is receiving Aranesp once a week during dialysis.
[2019-01-12] MEDS: HumaLOG INSULIN (NovoLOG) PER UNIT SC SCH ×4 (10:07→21:00)
[2019-01-12] MEDS: FERROUS SULFATE 325MG TAB PO SCH ×2 (10:11→22:10)
[2019-01-12] MEDS: METOPROLOL SUCC (TopROL XL) 100MG *XL* TAB PO SCH (10:12)
[2019-01-12] MEDS: CALCITRIOL 0.25 MCG CAP (S0169) PO SCH (10:12)
[2019-01-12] MEDS: amLODIPine 10 MG TAB PO SCH (10:13)
[2019-01-12 10:43] LABS: HEPATITIS A ANTIBODY IGM NEGATIVE (NEGATIVE); HEPATITIS B CORE ANTIBODY IGM NEGATIVE (NEGATIVE); HEPATITIS B SURFACE ANTIGEN NEGATIVE (NEGATIVE); HEPATITIS C VIRUS ABY INDEX 0.1 INDEX (<0.8)
[2019-01-12 14:00] VITALS: BP 117/63
--- NOTE | 2019-01-12 15:09 | IPN ---
DATE: 01/04/2019 Ms. Mireles is seen this morning on her bedside. She is feeling well and denies any nausea, vomiting, dyspnea, or chest pain. She tells me that she is scheduled for arteriovenous (AV) fistula creation later this afternoon. PHYSICAL EXAMINATION: Temperature 97.4 degrees Fahrenheit, heart rate 80 per minute, respiratory rate 17 per minute, blood pressure 131/81 mm of mercury, and oxygen saturation 100% on room air. Head is atraumatic. Neck is supple and without jugular venous distention (JVD) or thyromegaly. Perm-A-Cath is present on upper chest without any signs of infection. Heart sounds are regular and lungs clear to auscultation. Abdomen soft and nontender, and bowel sounds are normal. Extremities have no cyanosis or clubbing. Neurologically, she is at her baseline mentation without a focal deficit. Today's labs show WBC count 10.7, hemoglobin 8.9, hematocrit 27.8, platelets 400. Sodium 137, potassium 4.1, CO2 of 23, BUN 26, and creatinine 4.74. Calcium level 7.9. PROBLEMS: 1. End-stage renal disease. The patient is very well dialyzed, and we will schedule her next dialysis for tomorrow. She is scheduled for AV fistula surgery later this afternoon, so we will not dialyze her today. 2. Anemia. Her anemia is stable and improving. She has been receiving Aranesp once a week with dialysis, which will be continued. 3. Hypertension. Blood pressure is now much better controlled on current antihypertensive medications, and no changes are being made. 4. Hemodialysis access. The patient is scheduled for a new AV fistula creation in her right arm later today. We will continue using Perm-A-Cath until her AV fistula gets ready. DISPOSITION: From a renal standpoint, the patient can be discharged to home when her AV fistula surgery gets done.
--- NOTE | 2019-01-12 17:54 | IPNPDOC ---
Text Note Date of Service The patient was seen on 01/12/19. NOTE SUBJECTIVE: Patient is seen and examined in the range of motion today. Patient denies any acute complaints. No event reported. OBJECTIVE: VITAL SIGNS: Listed below. GENERAL: Patient is alert and awake, comfortable. HEENT: Normocephalic, atraumatic. Extraocular movements grossly intact. CARDIOVASCULAR: Positive S1, S2, regular rate. LUNGS: Clear to auscultation bilaterally. ABDOMEN: Soft, nontender, bowel sounds present. MUSCULOSKELETAL: Patient has a PermaCath in right front chest. EXTREMITIES: No lower extremity swelling. LABORATORY DATA: Listed below. ASSESSMENT AND PLAN: #. End-stage renal disease. - Patient has a PermaCath, on hemodialysis. Nephrology is consulted. Appreciate their assistance. - Vascular surgery consulted. Discussed with Dr. Delgado. Arteriovenous (AV) fistula creation on 01/12/19. - PFS is assisting on outpatient dialysis arrangement. #. Anemia. - Started on Aranesp. Continue to followup with hemoglobin, hematocrit. Asymptomatic at this point. #. Hypertension. Blood pressure in the satisfactory range. On Norvasc, metoprolol. #. Type 1 diabetes. On insulin. #. Medial noncompliance complicating patient's case. #. Deep venous thrombosis (DVT) prophylaxis. On TEDs and compressions. VS,Fishbone, I+O VS, Fishbone, I+O Laboratory Tests 01/12/19 06:04 Calcium Level 7.9 L 01/12/19 06:05 Red Blood Count 3.04 L, Mean Corpuscular Volume 91.4, Mean Corpuscular Hemoglobin 29.3, Mean Corpuscular Hemoglobin Concent 32.0, Red Cell Distribution Width 13.2, Neutrophils (%) (Auto) 55.2, Lymphocytes (%) (Auto) 28.0, Monocytes (%) (Auto) 10.3 H, Eosinophils (%) (Auto) 5.2 H, Basophils (%) (Auto) 0.4, Neutrophils # (Auto) 5.9, Lymphocytes # (Auto) 3.0, Monocytes # (Auto) 1.1 H, Eosinophils # (Auto) 0.6 H, Basophils # (Auto) 0.0 Vital Signs Date Time Temp Pulse Resp B/P (MAP) Pulse Ox O2 Delivery O2 Flow Rate FiO2 01/12/19 14:00 97.7 78 17 117/63 (83) 99 I&O- Last 24 Hours up to 6 AM 01/12/19 06:00 Intake Total 600 ml Output Total 0 ml Balance 600 ml NIK LEROY DO Jan 12, 2019 17:54
[2019-01-12] MEDS ORDERED: LIDOCAINE 1% SDV INJ 30 ML VIAL As Ordered ONE (18:12)
[2019-01-12] MEDS ORDERED: ISOVUE-300 61% 50ML VIAL (Q9967) As Ordered ONE (18:12)
[2019-01-12] MEDS ORDERED: HEPARIN SOD (PORCINE) 5000 UNITS/ML VIAL As Ordered ONE (18:12)
[2019-01-12] MEDS ORDERED: BUPIVACAINE HCL 0.5% 30 ML VIAL As Ordered ONE (18:13)
[2019-01-12] MEDS ORDERED: MIDAZOLAM INJ 2 MG/2 ML VIAL (J2250) As Ordered ONE (18:33)
[2019-01-12] MEDS ORDERED: LIDOCAINE 2% INJ 100 MG/5 ML SDV (FOR ANES.) As Ordered ONE (18:33)
[2019-01-12] MEDS ORDERED: PROPOFOL 200 MG/20 ML VIAL As Ordered ONE ×2 (18:33→19:14)
[2019-01-12] MEDS ORDERED: fentaNYL 100 MCG/2 ML INJECTION (J3010) As Ordered ONE (18:34)
[2019-01-12] MEDS ORDERED: PERCOCET 5MG/325MG TAB PO PRN (20:15)
[2019-01-12] MEDS ORDERED: fentaNYL 100 MCG/2 ML INJECTION (J3010) IV PRN (20:15)
[2019-01-12] MEDS ORDERED: HYDROMORPHONE HCL 0.5 MG/ 0.5 ML SYRINGE (J1170 PER 1) IV PRN (20:15)
[2019-01-12] MEDS ORDERED: ONDANSETRON 4MG/2ML VIAL (J2405) IV PRN (20:15)
[2019-01-12 20:50] VITALS: BP 156/96
[2019-01-12] MEDS: LEVEMIR (INSULIN DETEMIR) 1 UNITS/0.01ML SC SCH (21:00)
[2019-01-12] MEDS: ACETAMINOPHEN TAB 650MG DOSE (2X325MG) PO PRN (22:40)
[2019-01-13 06:00] VITALS: BP 155/92
[2019-01-13] MEDS: SODIUM CHLORIDE 0.9% INJ 10 ML SYR IV SCH (06:00)
[2019-01-13] MEDS: FERROUS SULFATE 325MG TAB PO SCH (06:17)
[2019-01-13] MEDS: amLODIPine 10 MG TAB PO SCH (06:18)
[2019-01-13] MEDS: CALCITRIOL 0.25 MCG CAP (S0169) PO SCH (06:18)
[2019-01-13] MEDS: ACETAMINOPHEN TAB 650MG DOSE (2X325MG) PO PRN (06:18)
[2019-01-13 06:19] VITALS: BP 155/92
[2019-01-13] MEDS: METOPROLOL SUCC (TopROL XL) 100MG *XL* TAB PO SCH (06:19)
[2019-01-13 06:52] LABS: HEMOGLOBIN A1c 5.6 %
[2019-01-13] MEDS: HumaLOG INSULIN (NovoLOG) PER UNIT SC SCH (07:30)
[2019-01-13] MEDS ORDERED: HEPARIN 1,000 UNITS/ML 10ML VIAL (FOR RADIOLOGY& DIALYSIS ONLY) IV ONE (12:00)
[2019-01-13] MEDS ORDERED: HEPARIN 1,000 UNITS/ML 10ML VIAL (FOR RADIOLOGY& DIALYSIS ONLY) XX ONE (12:00)
--- NOTE | 2019-01-13 12:25 | IPN ---
DATE OF VISIT: 01/13/2019 Ms. Mireles is seen this morning during hemodialysis. She underwent a right arm arteriovenous (AV) fistula creation yesterday. Currently was using Perma-Cath for dialysis. Patient denies any nausea, vomiting, dyspnea or chest pain. She feels that her arm is still somewhat sore. On physical exam, temperature 96.9 degrees Fahrenheit, heart rate 72 per minute and respiratory rate 18 per minute. Blood pressure 155/92 mmHg and oxygen saturation 100%. Her head is atraumatic. Neck is supple and jugular venous distention (JVD) is not elevated. Heart sounds are regular and lungs clear to auscultation. Abdomen soft and nontender, and bowel sounds normal. Extremities have no cyanosis or clubbing. She has a new AV fistula created in right arm, which is patent. Today's labs were not done, and only lab was A1c level of 5.6 this morning. Blood sugar was 143. PROBLEMS: 1. End-stage renal disease. Patient is being dialyzed today and she is tolerating her dialysis treatment very well. She already has an outpatient slot for dialysis and will start an outpatient clinic on Thursday afternoon. 2. Anemia. Her anemia has been stable and we are treating it with once a week Aranesp. This will be managed with outpatient dialysis clinic. 3. Hypertension. Blood pressure is very well controlled as long as she is compliant with medications. She should continue with the same medications at home after discharge. DISPOSITION: I have confirmed her outpatient dialysis chair time, which will be 3:45 p.m. on Thursday. From a renal standpoint, patient can be discharged to home today and she will return to outpatient dialysis tomorrow.
[2019-01-13 14:00] VITALS: BP 157/96
--- NOTE | 2019-01-18 20:39 | DSES ---
DATE OF ADMISSION: 01/04/2019 DATE OF DISCHARGE: 01/13/2019 CONSULTANTS: Nephrology. PRIMARY CARE PROVIDER: Laura Ibrahim PA-C DISCHARGE DIAGNOSES: 1. End-stage renal disease. 2. Anemia. 3. Hypertension. 4. Type 1 diabetes. 5. Medical noncompliance. HOSPITALIZATION COURSE: The patient is a 33-year-old female who presented to [facility] on 01/05/2019 under the instructions of her lpn rn. Patient was admitted under hospitalist service for end-stage renal disease requiring hemodialysis. Nephrology consulted. Patient had a Perm-A-Cath placed. Patient was started on hemodialysis. Patient was found to have a significant anemia. Patient received a blood transfusion accordingly. Patient had arteriovenous (AV) fistula creation on 01/12/2019. Since admission, social media coordinator has been assisting establishing patient's outpatient dialysis. On 01/13/2019 patient had hemodialysis in the morning, and patient determined medically stable for discharge. Patient is recommended to followup with outpatient dialysis on 01/14/2019 for new outpatient hemodialysis. VITAL SIGNS: On date of discharge, temperature 96.9, pulse 72, respirations 18, blood pressure 155/92, pulse oximetry 100% in room air. LABORATORY DATA: WBC 10.7, hemoglobin 8.9, hematocrit 27.8, platelet count is 400. Sodium is 137, potassium 4.1, chloride 105, carbon dioxide 23, BUN 26, creatinine 4.74, GFR is 13.8, fasting glucose 109. A1c is 5.6. Calcium 10.9. Respiratory panel is negative. MRI of the brain on 01/05/2019 showed enlarged posterior fossa right side arachnoid cyst, ventriculomegaly. DISCHARGE MEDICATIONS: - amlodipine 10 mg by mouth daily - Basaglar 20 units subcutaneous at bedtime - calcitriol 0.25 mcg by mouth daily - calcium/vitamin D one tablet by mouth daily - ferrous sulfate 325 mg by mouth twice a day - metoprolol succinate 200 mg by mouth daily - vitamin D 50,000 units by mouth weekly DISCHARGE INSTRUCTIONS: Discontinue line. Discharge home. Activity as tolerated. Consistent-carbohydrate diet as tolerated. Patient should followup with primary care provider in 1 week. Patient should followup with outpatient dialysis on 01/14/2019. Patient should followup with [facility] after discharge for subarachnoid cyst. DISCHARGE TIME: Greater than 30 minutes.
--- NOTE | 2019-02-02 07:44 | REPIR ---
DATE OF PROCEDURE: 01/05/2019 ATTENDING SURGEON: Dr. Yassine Delgado [employer] TECHNICIAN: Yulissa Saab and Radha Bo PREOPERATIVE DIAGNOSIS: Acute renal failure requiring renal replacement therapy, hyperkalemia. POSTOPERATIVE DIAGNOSIS: Acute renal failure requiring renal replacement therapy, hyperkalemia. PROCEDURE: Ultrasound-guided right internal jugular vein cannulation, fluoroscopic guided right internal jugular vein 19 cm tip to cuff tunneled central venous catheter. INDICATION: The patient is a 33-year-old female with chronic renal insufficiency who has worsening renal function and hyperkalemia who is requires hemodialysis. The patient will undergo placement of a tunneled central venous catheter for hemodialysis access. Risks, benefits and alternative options were discussed with the patient. ANESTHESIA: Was local with 20 mL of 2% lidocaine. FLUORO TIME: 0.8 minutes. CONTRAST: None. COMPLICATIONS: None. DRAINS: None. SPECIMENS: None. IMPLANT: Right internal jugular vein 19 cm tip to cuff tunneled central venous catheter with placement of an anterior [employer] catheter. PROCEDURE: The patient was taken to the angiography suite, placed supine on the angiography room table and then prepped and draped in a standard surgical fashion. The right internal jugular vein was cannulated using ultrasound guidance, the ultrasound showed the right internal jugular vein to be widely patent, was successful, and free of thrombus. Ultrasound was used guide cannulation of the right internal jugular vein with real-time concurrent visualization of the entry needle into the right internal jugular vein with a hard copy image preserved. The micropuncture wire was then advanced with the micropuncture needle which was upsized to a micropuncture sheath. The right internal jugular vein was then sequentially dilated under fluoroscopic guidance and an introducer sheath positioned. The catheter was advanced through the introducer sheath which was removed and the tip of the catheter positioned in the superior vena cava right atrial junction under fluoroscopic guidance. Both ports were aspirated and noted to aspirate easily and then flushed with heparinized saline. The catheter was secured to the anterior chest wall using #2-0 Prolene suture. The puncture wound in the right neck was closed using #3-0 Monocryl inverted interrupted fashion. Steri-Strips and dressings were applied. The patient tolerated the procedure well. All instrument, sponges, and needle counts were correct at the end the case. There were no complications. Dr. Delgado was present for and directed the entire case. The patient was transferred to the holding area and subsequently to the floor in stable condition. The tunneled central venous catheter was stable for use for dialysis access. RADIOLOGIC SUPERVISION INTERPRETATION: The ultrasound showed the right internal jugular vein to be widely patent, easily compressible and free of thrombus. Ultrasound was used guide cannulation of the right internal jugular vein with real-time concurrent visualization of the entry of the needle into the right internal jugular vein with a hard copy image preserved. Fluoroscopy was then used to dilate the right internal jugular vein and place the catheter with tip in the superior vena cava right atrial junction. Final fluoroscopic image showed the catheter to be in good position and good alignment with no pneumo or hemothorax noted. The catheter was stable for use for dialysis access.
--- NOTE | 2019-02-02 10:24 | RO ---
DATE OF PROCEDURE: 01/12/2019 ATTENDING SURGEON: Dr. Yassine Delgado CLERICAL RECEPTIONIST: None. PREOPERATIVE DIAGNOSIS: End-stage renal disease, status post right internal jugular vein tunneled central venous catheter placement, hemodialysis dependent. POSTOPERATIVE DIAGNOSES: End-stage renal disease, status post right internal jugular vein tunneled central venous catheter placement, hemodialysis dependent. PROCEDURE: Right brachiocephalic arteriovenous fistula creation. INDICATION: The patient is a 33-year-old female with chronic renal insufficiency who has progressed to end-stage renal disease and requires renal replacement therapy. The patient underwent placement of a right internal jugular vein tunneled central venous catheter for hemodialysis access and now requires permanent access creation. The patient will undergo a right radiocephalic, possible brachiocephalic arteriovenous fistula. Risks, benefits and alternative treatment options were discussed with the patient. ANESTHESIA: Local monitored anesthesia care (MAC). ESTIMATED BLOOD LOSS: 5 mL. INTRAVENOUS (IV) FLUIDS: 300 mL. HEPARIN: None. COMPLICATIONS: None. DRAINS: None. SPECIMENS: None. IMPLANTS: None. DESCRIPTION OF PROCEDURE: The patient was taken to the operating room, placed supine on the operating room table and then prepped and draped in a standard surgical fashion. A tourniquet was applied to the forearm and there was no good cephalic vein noted at the wrist or in the forearm. The tourniquet was moved into the upper arm and there was good cephalic vein noted at the antecubital fossa. A transverse incision was made at the antecubital fossa after anesthetizing the overlying skin with 1% lidocaine mixed with 0.5% Marcaine. Cephalic vein and brachial artery were sharply dissected free and encircled with vessel loops. The cephalic vein was small in caliber and the cephalic vein was anastomosed to the brachial artery in a [id number] fashion using #6-0 Prolene suture. There was good flow in the fistula at the completion of the anastomosis. Hemostasis was obtained, after which, the deeper layer was closed with #2-0 Vicryl and the skin closed with serial Monocryl in a running subcuticular fashion. Steri-Strips and dressings were applied. The patient tolerated the procedure well. All instrument, sponge, needle counts were correct at the end of the case. There were no complications. Dr. Delgado was present for and directed the entire case. The patient was transferred to recovery room awake, alert, extubated and in stable condition.
--- NOTE | 2019-02-08 09:54 | REPIR ---
DATE OF PROCEDURE: 01/05/2019 PREOPERATIVE DIAGNOSIS: For IV access. POSTOPERATIVE DIAGNOSES: For IV access. PROCEDURE: Ultrasound-guided left brachial vein 49 cm peripherally inserted central catheter (PICC) line placement. Fluoroscopic guided left brachial vein 49 cm PICC line placement. SURGEON: Dr. Yassine Delgado ACCOUNT EXECUTIVE: Radha Bo and Yulissa Saab. INDICATION: The patient is a 33-year-old female with acute renal failure and worsening chronic renal insufficiency who has requirement for renal replacement therapy and hemodialysis as well as hyperkalemia. The patient underwent placement of a tunneled central venous catheter for hemodialysis access and now requires access for venous access to the poor IV access. The patient will undergo placement of the PICC line. Risks, benefits and alternative options were discussed with the patient. ANESTHESIA: Local with 10 mL of 2% lidocaine. FLUORO TIME: 0.7 minutes. CONTRAST: None. COMPLICATIONS: None. DRAINS: None. SPECIMENS: None. IMPLANTS: None. DESCRIPTION OF PROCEDURE: The patient was taken to the angiography suite, placed supine on the angiography room table and then prepped and draped in a standard surgical fashion. The ultrasound was used to evaluate the veins in the left median antecubital region and the left brachial vein was noted to be widely patent easily compressible and free of thrombus. Ultrasound was used to guide cannulation of the left brachial vein with real-time concurrent visualization of the entry of the micropuncture needle into the brachial vein with a hard copy image preserved. A micropuncture wire was advanced to the micropuncture needle which was upsized to a sheath. A wire was placed for the superior vena cava right atrial junction and measured correlating with 49 cm. PICC line was cut 49 cm, advanced through the sheath and positioned under fluoroscopic guidance wit the tip into the superior vena cava right atrial junction. The introducer sheath was removed. Both ports were aspirated and noted to aspirate easily and then flushed with heparinized saline. Dressings were then applied. The patient tolerated the procedure well. All instrument, sponge and needle counts were correct at the end the case. There were no complications. Dr. Delgado was present for and directed the entire case. The patient was transferred to the holding area and subsequently to the floor in stable condition. The PICC line is stable for use. RADIOLOGY SUPERVISION INTERPRETATION: The ultrasound showed the left brachial vein to be widely patent easily compressible and free of thrombus. Ultrasound was used guide cannulation of the left brachial vein with real-time concurrent visualization of the entry needle into the brachial vein with a hard copy image preserved. Fluoroscopy was then used to measure the distance from the cannulation site to the superior vena cava right atrial junction which correlated 49 cm. PICC line was cut to 49 cm, advanced through the introducer sheath and positioned under fluoroscopic guidance with the tip in the superior vena cava right atrial junction. Final fluoroscopic image showed the catheter to be in good position and alignment with the tip in the superior vena cava right atrial junction with no pneumothorax or hemothorax noted.
== END 2019-01-13 15:45 | disposition home or self-care (01) | DRG 444 ==
LOC: M ED 20:18 → M ED INP 23:25 → M MSPAV 01-05 17:08
PROVIDERS: ADMIT Hospitalist; ATTEND Internal Medicine Nephrology
PROC: 02H633Z Insertion of Infusion Device into Right Atrium, Percutaneous Approach (ICD-10-PCS; principal; 2019-01-05)
PROC: 0JH63XZ Insertion of Tunneled Vascular Access Device into Chest Subcutaneous Tissue and Fascia, Percutaneous Approach (ICD-10-PCS; 2019-01-05)
PROC: B518ZZA Fluoroscopy of Superior Vena Cava, Guidance (ICD-10-PCS; 2019-01-05)
PROC: B543ZZA Ultrasonography of Right Jugular Veins, Guidance (ICD-10-PCS; 2019-01-05)
PROC: 30233N1 Transfusion of Nonautologous Red Blood Cells into Peripheral Vein, Percutaneous Approach (ICD-10-PCS; 2019-01-07)
PROC: 031709D Bypass Right Brachial Artery to Upper Arm Vein with Autologous Venous Tissue, Open Approach (ICD-10-PCS; 2019-01-12)
PROC: 5A1D70Z Performance of Urinary Filtration, Intermittent, Less than 6 Hours Per Day (ICD-10-PCS; 2019-01-13)
DX: I12.0 Hypertensive chronic kidney disease with stage 5 chronic kidney disease or end stage renal disease (principal); N17.9 Acute kidney failure, unspecified; E10.65 Type 1 diabetes mellitus with hyperglycemia; N25.81 Secondary hyperparathyroidism of renal origin; E10.22 Type 1 diabetes mellitus with diabetic chronic kidney disease; E87.5 Hyperkalemia; G93.0 Cerebral cysts; D63.1 Anemia in chronic kidney disease; N18.6 End stage renal disease; Z79.899 Other long term (current) drug therapy; Z88.5 Allergy status to narcotic agent; Z79.4 Long term (current) use of insulin; Z99.2 Dependence on renal dialysis; Z91.19 Patient's noncompliance with other medical treatment and regimen

== ENCOUNTER → 2019-01-19 | Outpatient (REF) | payer OTHER ==
[~2019-01-19] MED LIST changes: +AMLO10TA5 PO; +BASA100I SC; +CALC1CAP31 PO; +METO1TAB33 PO
[2019-01-19 16:13] LABS: IRON (FE) 32 UG/DL (50-170)
[2019-01-19 16:43] LABS: TOTAL PROTEIN,RANDOM URINE 550.5 MG/DL (0.0-12.0)
== END ==
LOC: M SFHCPLAZ 12:18
PROVIDERS: ATTEND Family Medicine
DX: D64.9 Anemia, unspecified (principal); N04.9 Nephrotic syndrome with unspecified morphologic changes

== ENCOUNTER 2019-02-08 18:47 | Emergency (ER) | payer MEDICAID, OTHER ==
[~2019-02-08] VITALS: Ht 175.3 cm; Wt 87.8 kg
[~2019-02-08 18:47] MED LIST changes: -BUPIVACAINE HCL 0.5% 10 ML VIAL As Ordered ONE; -ISOVUE-300 61% 100ML VIAL (Q9967) As Ordered ONE; -LIDOCAINE 2% MDV 20 ML VIAL As Ordered ONE; -LOSA25TA14 PO; -MIDAZOLAM INJ 2 MG/2 ML VIAL (J2250) As Ordered ONE; -TESS100C PO; -fentaNYL 100 MCG/2 ML INJECTION (J3010) As Ordered ONE
[2019-02-08] MEDS ORDERED: LOSA25TA14 PO (19:10)
[2019-02-08 20:19] LABS: INFLUENZA A AMPLIFICATION NEGATIVE (NEGATIVE); INFLUENZA B AMPLIFICATION NEGATIVE (NEGATIVE)
[2019-02-08] MEDS ORDERED: dexameTHASONE 4 MG/ML 1ML VIAL (J1100) PO ONE (23:30)
[2019-02-08] MEDS ORDERED: MAGIC MOUTHWASH SUSPENSION BTL SS ONE (23:30)
[2019-02-09] MEDS ORDERED: TESS100C PO (00:01)
[2019-02-09 00:22] VITALS: BP 143/88
== END 2019-02-09 00:25 | disposition home or self-care (01) ==
LOC: M ED 18:47
DX: J06.9 Acute upper respiratory infection, unspecified (principal); E10.9 Type 1 diabetes mellitus without complications; I10 Essential (primary) hypertension; G62.9 Polyneuropathy, unspecified; Z99.2 Dependence on renal dialysis; D64.9 Anemia, unspecified; Z79.4 Long term (current) use of insulin; Z79.899 Other long term (current) drug therapy; Z91.89 Other specified personal risk factors, not elsewhere classified; Z91.040 Latex allergy status; Z88.5 Allergy status to narcotic agent
CPT/HCPCS: 87502; 87880; 99284; J1100

== ENCOUNTER → 2019-02-08 | Outpatient (CLI) | payer OTHER ==
[~2019-02-08] MED LIST changes: +BUPIVACAINE HCL 0.5% 10 ML VIAL As Ordered ONE; +ISOVUE-300 61% 100ML VIAL (Q9967) As Ordered ONE; +LIDOCAINE 2% MDV 20 ML VIAL As Ordered ONE; +LOSA25TA14 PO; +MIDAZOLAM INJ 2 MG/2 ML VIAL (J2250) As Ordered ONE; +TESS100C PO; +fentaNYL 100 MCG/2 ML INJECTION (J3010) As Ordered ONE
--- NOTE | 2019-03-09 07:47 | REPIR ---
DATE OF PROCEDURE: 02/08/2019 SURGEON: Dr. Yassine Delgado ASSISTANTS: Yulissa Saab and Radha Bo PREOPERATIVE DIAGNOSES: 1. End-stage renal disease. 2. Dysfunctional right brachiocephalic arteriovenous fistula with non maturation. 3. Status post right internal jugular vein tunneled central venous catheter for hemodialysis access. POSTOPERATIVE DIAGNOSES 1. End-stage renal disease. 2. Dysfunctional right brachiocephalic arteriovenous fistula with non maturation. 3. Status post right internal jugular vein tunneled central venous catheter for hemodialysis access. PROCEDURES: 1. Ultrasound-guided right brachiocephalic arteriovenous fistula cannulation. 2. Right brachiocephalic arteriovenous fistulogram. 3. Retrograde right brachial artery angiogram. INDICATION: The patient is a 33-year-old female who underwent creation of a right brachiocephalic arteriovenous fistula, which has been non maturing and difficult to feel. The patient will undergo a fistulogram with possible angioplasty, stent and/or atherectomy. Risks, benefits and alternative treatment options were discussed with the patient. ANESTHESIA: Local with 2.5 mL of 2% lidocaine mixed with 0.5% Marcaine. FLUORO TIME: 0.1 minutes. CONTRAST: 4 mL of ISOVUE 300. HEPARIN: None. COMPLICATIONS: None. DRAINS: None. SPECIMENS: None. IMPLANTS: None. PROCEDURE: The patient was taken to the angiography suite, placed supine on the angiography room table and prepped and draped in a standard surgical fashion. Ultrasound was used guide cannulation of the right brachiocephalic arteriovenous fistula. A fistulogram and retrograde brachial artery angiogram were performed showing good size and flow through the fistula. Catheters and wires were removed. Manual compression was applied at the puncture site for hemostasis. Dressings were then applied. The patient tolerated procedure well. All instrument, sponge and needle counts were correct at the end the case. There were no complications. Dr. Delgado was present for and directed the entire case. The patient was transferred to the holding area and subsequently discharged in stable condition.
== END | disposition home or self-care (01) ==
LOC: M IRPRO 08:10
PROVIDERS: ATTEND Surgery Vascular Surgery
DX: T82.590A Other mechanical complication of surgically created arteriovenous fistula, initial encounter (principal); N18.6 End stage renal disease
CPT/HCPCS: 36215; 36901; 75710; C1894; J2250; J3010; Q9967

== ENCOUNTER 2019-03-26 19:08 | Emergency (ER) | payer OTHER ==
[~2019-03-26] VITALS: Ht 175.3 cm; Wt 91.9 kg
[~2019-03-26 19:08] MED LIST changes: +LOSA25TA14 PO; +TESS100C PO
[2019-03-26] MEDS ORDERED: PROZ10CA7 PO (19:26)
[2019-03-26] MEDS ORDERED: CINA30TA4 PO (19:54)
--- NOTE | 2019-03-26 20:40 | REP ---
Clinical: Altered mental status. Technique: Axial noncontrast images from the skull base to the vertex. Comparison: MRI dated 01/05/2019 Findings: Stable ventriculomegaly and subarachnoid cyst in the posterior fossa is appreciated at comparable to findings on recent MRI. Oconnell-white differentiation is maintained. There is no evidence for acute intracranial hemorrhage or acute focal mass/mass effect. No acute extra-axial fluid collection. Calvarium is intact. Paranasal sinuses are within normal limits. Impression: 1. Known ventriculomegaly and subarachnoid cyst in the posterior fossa similar to MRI dated 01/05/2019. 2. No new acute intracranial process appreciated. Electronically Signed by Guy Garcia MD 03/26/2019 08:32 P
[2019-03-26 21:03] LABS: BASO % 0.3 % (0.0-1.0); EOS # 0.2 10^3/uL (0.0-0.50); EOS % 1.8 % (0.0-3.0); HEMATOCRIT 36.6 % (36.0-47.0); LYMPH % 10.8 % (24.0-44.0); MEAN CORPUSCULAR HEMOGLOBIN 30.4 pg (27.0-33.0); MEAN CORPUSCULAR HGB CONC 32.8 g/dl (32.0-36.5); MEAN CORPUSCULAR VOLUME 92.7 fl (80.0-96.0); MONO # 0.3 10^3/uL (0.0-0.8); MONO % 3.4 % (0.0-5.0); NEUTROPHILS # 7.3 10^3/uL (1.8-7.7); NEUTROPHILS % 83.2 % (36.0-66.0); PLATELET COUNT, AUTOMATED 303 10^3/uL (150-450); RED BLOOD COUNT 3.95 10^6/uL (4.00-5.40); WHITE BLOOD COUNT 8.8 10^3/uL (4.0-10.0)
[2019-03-26 21:05] LABS: VENOUS BASE EXCESS -2.7 (-2.0-2.0); VENOUS HCO3 21.7 MEQ/L (23.0-27.0); VENOUS O2 SATURATION 97.6 % (60.0-80.0); VENOUS PARTIAL PRESSURE CO2 36.2 mmHg (38.0-50.0); VENOUS PARTIAL PRESSURE O2 96.4 mmHg (30.0-50.0); VENOUS PH 7.395 UNITS (7.330-7.430); VENOUS STANDARD HCO3 22.3 MEQ/L; VENOUS TOTAL CO2 22.8 MEQ/L (24.0-28.0)
--- NOTE | 2019-03-26 21:10 | REP ---
Clinical: Altered mental status . Comparison: 07/16/2018 . Findings: The mediastinum and cardiac silhouette are stable and within normal limits for portable technique. Double-lumen dialysis catheter with tip in the SVC. The lung menjivar are clear without acute consolidation, effusion, or pneumothorax. Skeletal structures are intact. Impression: No acute cardiopulmonary process appreciated. Electronically Signed by Guy Garcia MD 03/26/2019 09:02 P
[2019-03-26 21:13] LABS: INR 0.92; PROTHROMBIN TIME 12.4 SECONDS (12.1-14.4)
[2019-03-26 21:14] LABS: PARTIAL THROMBOPLASTIN TIME 33.1 SECONDS (25.4-37.6)
[2019-03-26 21:39] LABS: ACETAMINOPHEN LEVEL < 2.0 UG/ML (10.0-30.0); ALBUMIN 3.1 GM/DL (3.2-5.2); ALT/SGPT 13 U/L (12-78); BILIRUBIN,DIRECT < 0.1 MG/DL (0.0-0.2); BILIRUBIN,TOTAL 0.2 MG/DL (0.2-1.0); BLOOD UREA NITROGEN 34 MG/DL (7-18); CALCIUM LEVEL 8.1 MG/DL (8.5-10.1); CARBON DIOXIDE LEVEL 24 MEQ/L (21-32); CHLORIDE LEVEL 99 MEQ/L (98-107); CPK CREATINE PHOSPHOKINASE 221 U/L (26-192); CREATININE FOR GFR 4.68 MG/DL (0.55-1.30); ETHYL ALCOHOL (ETHANOL) < 0.003 % (0.000-0.010); GLOMERULAR FILTRATION RATE 14.1 (>60); GLUCOSE, FASTING 254 MG/DL (70-100); MB/CK RELATIVE INDEX 1.18 (< OR =4); POTASSIUM SERUM 4.4 MEQ/L (3.5-5.1); SALICYLATE LEVEL < 1.7 MG/DL (5.0-30.0); SODIUM LEVEL 134 MEQ/L (136-145); TOTAL PROTEIN 7.1 GM/DL (6.4-8.2); TROPONIN I < 0.02 NG/ML (< 0.10)
[2019-03-26 22:46] VITALS: BP 157/87
--- NOTE | 2019-04-01 22:26 | ECGEPIP ---
[facility] - ED Test Date: 2019-03-26 Pat Name: KATELYN COLLINS Department: Room: - Gender: Female Box Nailer: JAYLEN : 1985 Requested By: AMANDA Craft Order Number: [id number] Reading MD: Claude Lucas Measurements Intervals [place]ola Rate: 80 P: 66 WA: 136 QRS: 45 QRSD: 77 T: 136 QT: 356 QTc: 411 Interpretive Statements SINUS RHYTHM NONSPECIFIC T-WAVE ABNORMALITY SIMILAR TO 01/07/19 Electronically Signed on 04-01-2019 22:26:54 EDT by Claude Lucas
== END 2019-03-26 23:02 | disposition home or self-care (01) ==
LOC: M ED 19:08 → EDBD 19:08 → M ED 23:02
DX: R55 Syncope and collapse (principal); R53.1 Weakness; R53.83 Other fatigue; Z98.890 Other specified postprocedural states; Z99.2 Dependence on renal dialysis; E11.29 Type 2 diabetes mellitus with other diabetic kidney complication; N18.6 End stage renal disease; E83.51 Hypocalcemia; Z91.040 Latex allergy status; Z88.5 Allergy status to narcotic agent; Z91.048 Other nonmedicinal substance allergy status; Z79.899 Other long term (current) drug therapy; Z79.4 Long term (current) use of insulin
CPT/HCPCS: 36415; 70450; 71045; 80048; 80076; 82140; 82330; 82550; 82553; 82803; 83605; 84443; 85025; 85610; 85730; 93005; 93041; 99285; G0480

== ENCOUNTER → 2019-04-11 | Outpatient (REF) | payer MEDICARE, OTHER, MEDICAID ==
[~2019-04-11] MED LIST changes: +CINA30TA4 PO; +PROZ10CA7 PO
== END ==
LOC: M SFHCPLAZ 15:30
PROVIDERS: ATTEND Nurse Practitioner Family
DX: Z12.4 Encounter for screening for malignant neoplasm of cervix (principal); R87.613 High grade squamous intraepithelial lesion on cytologic smear of cervix (HGSIL)

== ENCOUNTER → 2019-04-14 | Outpatient (CLI) | payer MEDICARE, OTHER ==
[~2019-04-14] MED LIST changes: +BUPIVACAINE HCL 0.5% 10 ML VIAL As Ordered ONE; +CLON-383 PO; +HEPARIN 1,000 UNITS/ML 10ML VIAL (FOR RADIOLOGY& DIALYSIS ONLY) As Ordered ONE; +ISOVUE-300 61% 50ML VIAL (Q9967) As Ordered ONE; +LIDOCAINE 2% MDV 20 ML VIAL As Ordered ONE; +MIDAZOLAM INJ 2 MG/2 ML VIAL (J2250) As Ordered ONE; +diphenhydrAMINE INJ 50MG/ML VIAL (J1200) As Ordered ONE; +fentaNYL 100 MCG/2 ML INJECTION (J3010) As Ordered ONE
--- NOTE | 2019-05-11 14:25 | REPIR ---
DATE OF PROCEDURE: 04/14/2019 ATTENDING SURGEON: Dr. Johnathon Delgado [employer] C[employer]OM PROTECTION OFFICER: Daisy Carreon and Radha Garcia PREOPERATIVE DIAGNOSES: End-stage renal disease, dysfunctional right brachiocephalic arteriovenous fistula. POSTOPERATIVE DIAGNOSES: End-stage renal disease, dysfunctional right brachiocephalic arteriovenous fistula. PROCEDURE: Ultrasound-guided right cephalic vein cannulation, selective right brachial artery catheter placement with angiogram runoff, right cephalic vein angioplasty with 5 x 200 balloon, right subclavian vein angioplasty with 5 x 200 balloon. INDICATION: The patient is a 34-year-old female with end-stage renal disease who underwent creation of a right brachiocephalic arteriovenous fistula, which is non maturing. The patient will undergo a fistulogram with possible angioplasty, stent and/or atherectomy. Risks, benefits and alternative options were discussed with the patient. ANESTHESIA: Local with sedation. FLUORO TIME: 7.4 minutes. CONTRAST: 8 mL HEPARIN: None. COMPLICATIONS: None. DRAINS: None. SPECIMENS: None. IMPLANTS: None. PROCEDURE: The patient was taken to the angiography suite, placed supine on the angiography room table and then prepped and draped in a standard surgical fashion. The fistula was cannulated using ultrasound guidance and a fistulogram showed extremely small cephalic vein into the subclavian vein. The cephalic vein and subclavian vein were angioplastied with a 5 x 200 balloon and a complete fistulogram showed resolution of the stenoses with improved size of flow through the fistula. Catheters and wires were removed. A 2-0 Prolene suture was placed at the puncture site for hemostasis. Dressings were then applied. The patient tolerated procedure well. All instrument, sponge and needle counts were correct at the end of the case. There were no complications. Dr. Delgado was present for and directed the entire case. The patient was transferred to [facility] and subsequently discharged in stable condition.
== END ==
LOC: M IRPRO 09:48
PROVIDERS: ATTEND Surgery Vascular Surgery
DX: N18.6 End stage renal disease (principal); T82.897A Other specified complication of cardiac prosthetic devices, implants and grafts, initial encounter; I12.0 Hypertensive chronic kidney disease with stage 5 chronic kidney disease or end stage renal disease; E11.22 Type 2 diabetes mellitus with diabetic chronic kidney disease; D50.9 Iron deficiency anemia, unspecified; X58.XXXA Exposure to other specified factors, initial encounter; Y93.9 Activity, unspecified; Y92.9 Unspecified place or not applicable; Y99.9 Unspecified external cause status
CPT/HCPCS: 36902; C1725; C1769; C1887; C1894; J1200; J2250; J3010; Q9967

== ENCOUNTER → 2019-05-03 | Outpatient (CLI) | payer MEDICARE, OTHER ==
[~2019-05-03] MED LIST changes: -HEPARIN 1,000 UNITS/ML 10ML VIAL (FOR RADIOLOGY& DIALYSIS ONLY) As Ordered ONE
--- NOTE | 2019-05-11 14:59 | REPIR ---
DATE OF SERVICE: 05/03/2019 PREOPERATIVE DIAGNOSES: End-stage renal disease, dysfunctional right brachiocephalic arteriovenous fistula. POSTOPERATIVE DIAGNOSES: End-stage renal disease, dysfunctional right brachiocephalic arteriovenous fistula. PROCEDURE: Right brachiocephalic arteriovenous fistulogram, retrograde right brachial artery angiogram, right cephalic vein angioplasty with 7x 200 and 8 x 200 balloon, right subclavian vein angioplasty 7 x 200 and 8 x 200 balloon, right innominate vein angioplasty with 7 x 200 and 8 x 200 balloon, right subclavian vein angioplasty with 12 x 8, right innominate vein angioplasty with 12 x 8 balloon. SURGEON: Dr. Johnathon Delgado. HAND BOOTMAKER: Yulissa Giordano. ANESTHESIA: Local with sedation FLUORO TIME: 3.8 minutes. CONTRAST: 5 mL COMPLICATIONS: None. DRAINS: None. SPECIMENS: None. IMPLANTS: None. INDICATION: Patient is a 34-year-old female who underwent a creation of the fistula which is non-maturing. Patient will undergo a fistulogram with possible angioplasty stent and/or atherectomy. DESCRIPTION OF PROCEDURE: The patient was taken to the angiography suite, placed supine on the angiography table and then prepped and draped in a standard surgical fashion. The right brachiocephalic arteriovenous fistula was cannulated and a fistulogram performed showing stenosis in the cephalic vein, subclavian vein, innominate vein and superior vena cava. The cephalic vein, subclavian vein and innominate vein were all angioplasty with a 7 x 200 and 8 x 200 balloon. The subclavian vein and innominate vein were angioplastied with 12 x 8 balloon. Completion fistulogram showed resolution of the stenosis with excellent flow incised through the fistula. Catheters and wires removed. A #2-0 Prolene suture was placed at the puncture site for hemostasis. Dressings were then applied. The patient tolerated procedure well. All instrument, sponge and needle counts were correct at the end the case. There were no complications. Dr. Delgado was present for directed the entire case. The patient was transferred to the [facility] [facility] and subsequently discharged in stable condition.
== END ==
LOC: M IRPRO 10:11
PROVIDERS: ATTEND Surgery Vascular Surgery
DX: N18.6 End stage renal disease (principal); T82.598A Other mechanical complication of other cardiac and vascular devices and implants, initial encounter; X58.XXXA Exposure to other specified factors, initial encounter; Y93.9 Activity, unspecified; Y92.9 Unspecified place or not applicable; Y99.9 Unspecified external cause status
CPT/HCPCS: 36902; C1725; C1769; C1894; J1200; J2250; J3010; Q9967

== ENCOUNTER → 2019-06-21 | Outpatient (REF) | payer MEDICARE, MEDICAID ==
[~2019-06-21] MED LIST changes: -BUPIVACAINE HCL 0.5% 10 ML VIAL As Ordered ONE; -ISOVUE-300 61% 50ML VIAL (Q9967) As Ordered ONE; -LIDOCAINE 2% MDV 20 ML VIAL As Ordered ONE; -MIDAZOLAM INJ 2 MG/2 ML VIAL (J2250) As Ordered ONE; -diphenhydrAMINE INJ 50MG/ML VIAL (J1200) As Ordered ONE; -fentaNYL 100 MCG/2 ML INJECTION (J3010) As Ordered ONE
== END ==
LOC: M SFHCPLAZ 14:31
PROVIDERS: ATTEND Family Medicine
DX: D50.9 Iron deficiency anemia, unspecified (principal); E10.22 Type 1 diabetes mellitus with diabetic chronic kidney disease

== ENCOUNTER → 2019-06-29 | Outpatient (REF) | payer MEDICARE, MEDICAID | LOC: M LAB REF 11:12 | PROVIDERS: ATTEND Obstetrics & Gynecology | DX: R87.613 High grade squamous intraepithelial lesion on cytologic smear of cervix (HGSIL) (principal); R87.610 Atypical squamous cells of undetermined significance on cytologic smear of cervix (ASC-US) ==

== ENCOUNTER → 2019-06-30 | Outpatient (CLI) | payer MEDICARE, MEDICAID ==
[~2019-06-30] MED LIST changes: +LIDOCAINE 2% MDV 20 ML VIAL As Ordered ONE
[2019-06-30 13:43] VITALS: BP 175/87
--- NOTE | 2019-07-04 22:31 | ROOPDOC ---
[facility] Report Of Operation Report of Operation DATE OF PROCEDURE: 06/30/2019 PREPROCEDURE DIAGNOSES: End-stage renal disease, functioning right brachiocephalic autogenous arteriovenous fistula. POSTPROCEDURE DIAGNOSES: End-stage renal disease, functioning right brachiocephalic autogenous arteriovenous fistula. PROCEDURE: Right internal jugular vein tunneled central venous catheter removal. SURGEON: Dr. Yassine Delgado M.D. WHOLESALE DIAMOND BROKER: None INDICATION: Patient is 34-year-old female with end-stage renal disease who now successfully dialyzes through her right brachiocephalic autogenous arteriovenous fistula and no longer requires her tunneled central venous catheter. Patient will undergo removal of the right internal jugular vein tunneled central venous catheter. The procedure was explained and described to the patient in detail including drawing of pictures describing the procedure and pertinent anatomy associated with the procedure. Risks, benefits and alternative treatment options were discussed with the patient. Benefits included but were not limited to removal of the catheter with reduction in complications from central venous catheters. Alternative treatment options included but were not limited to no intervention. Risks included but were not limited to infection, bleeding, pneumothorax, hemothorax, possible need for open surgical intervention, adverse or allergic reaction to the local anesthetic, adverse or allergic reaction to the material used for surgical prepping and draping, nerve injury, cerebrovascular accident, myocardial infarction, pulmonary embolus, deep venous thrombosis, poor satisfaction, poor outcome, poor results, loss of limb and loss of life. Risks of not performing the procedure included but were not limited to infection, bleeding, central venous stenosis and/or thrombosis, loss of life and poor outcome. Patient's questions were answered. Patient voices understanding of these risks, benefits and alternative treatment options. Patient voices acceptance of these risks, benefits and alternative treatment options and consents to proceed with right internal jugular vein tunneled central venous catheter removal. There were no promises or guarantees made to the patient regarding the procedure or outcome. ANESTHESIA: Local with 10 mL of 2% lidocaine ESTIMATED BLOOD LOSS: 5 mL IV FLUIDS: None DRAINS: None CONTRAST: None COMPLICATIONS: None IMPLANTS: None SPECIMENS: None PROCEDURE: Patient was prepped and draped in a standard surgical fashion. A edison e out was completed by myself and all the team members in the room involved at the initiation of the procedure, confirming the correct patient , procedure and laterality. Manual traction was applied to the catheter which did not release the subcutaneous cuff spontaneously. The skin and subcutaneous tissue overlying the catheter and tunnelled subcutaneous cuff were then anesthetized with 2% lidocaine. The cuff was then sharply dissected free via the entry site in the right chest. The catheter was then removed and manual compression applied at the exit site in the right chest and at the right internal jugular vein entry site for hemostasis. Once hemostasis was achieved, dressings were then applied. Patient tolerated the procedure well and was in stable condition at the end of the removal of the tunneled central venous catheter. All instrument, sponge and needle counts were correct at the end of the case. There were no complications. Dr. Delgado was present for and directed the entire case. Patient was discharged in stable condition. The procedure and results were discussed with the patient at the end of the case with all of their questions being answered. Saul Delgado MD Jul 04, 2019 22:31
== END ==
LOC: M IRPRO 11:35
PROVIDERS: ATTEND Surgery Vascular Surgery
DX: Z45.2 Encounter for adjustment and management of vascular access device (principal); N18.6 End stage renal disease; I12.0 Hypertensive chronic kidney disease with stage 5 chronic kidney disease or end stage renal disease; E11.22 Type 2 diabetes mellitus with diabetic chronic kidney disease; I25.10 Atherosclerotic heart disease of native coronary artery without angina pectoris

== ENCOUNTER → 2019-07-07 | Outpatient (CLI) | payer MEDICARE, MEDICAID ==
[~2019-07-07] MED LIST changes: +GASTROGRAFIN SOLUTION 30ML (Q9963) As Ordered ONE; +ISOVUE-370 76% 100ML VIAL (Q9967) As Ordered ONE; -LIDOCAINE 2% MDV 20 ML VIAL As Ordered ONE
--- NOTE | 2019-07-07 12:33 | REP ---
Clinical: Neoplasm. Technique: Axial images of the abdomen with coronal and sagittal re-formations using oral contrast material per protocol. Comparison: 03/22/2019. Findings: Lung bases are clear. Liver, spleen, pancreas, gallbladder, bilateral adrenal glands and kidneys appear normal for noncontrast evaluation. Visualized enteric system is grossly unremarkable although mild/moderate fecal stasis is suggested. No ascites. No free air. No obvious adenopathy. Abdominal aorta without aneurysm. Osseous structures are intact. Impression: Normal noncontrast CT of the abdomen. Electronically Signed by Guy Garcia MD 07/07/2019 12:25 P
== END ==
LOC: M RAD 09:11
PROVIDERS: ATTEND Internal Medicine Nephrology
DX: D44.10 Neoplasm of uncertain behavior of unspecified adrenal gland (principal)
CPT/HCPCS: 74150; Q9963

== ENCOUNTER → 2019-07-08 | Outpatient (CLI) | payer MEDICARE, MEDICAID ==
[~2019-07-08] MED LIST changes: -GASTROGRAFIN SOLUTION 30ML (Q9963) As Ordered ONE; -ISOVUE-370 76% 100ML VIAL (Q9967) As Ordered ONE
== END ==
LOC: M SMT 12:02
PROVIDERS: ATTEND Internal Medicine Nephrology
DX: E27.5 Adrenomedullary hyperfunction (principal)

== ENCOUNTER → 2019-07-08 | Outpatient (CLI) | payer MEDICARE, MEDICAID ==
[2019-07-12 14:07] LABS: DOPAMINE PLASMA <30 pg/mL (0-48); EPINEPHRINE PLASMA <15 pg/mL (0-62); NOREPINEPHRINE PLASMA 510 pg/mL (0-874)
== END ==
LOC: M LAB 12:30
PROVIDERS: ATTEND Internal Medicine Nephrology
DX: E27.5 Adrenomedullary hyperfunction (principal)

== ENCOUNTER → 2019-08-23 | Outpatient (REF) | payer MEDICARE, MEDICAID ==
[2019-08-23 10:40] LABS: HEMOGLOBIN A1c 8.9 %
== END ==
LOC: M SFHCPLAZ 08:28
PROVIDERS: ATTEND Family Medicine
DX: E10.22 Type 1 diabetes mellitus with diabetic chronic kidney disease (principal); R70.0 Elevated erythrocyte sedimentation rate
CPT/HCPCS: 36415; 83036; 84681; 85652; 86140; G0463

== ENCOUNTER 2019-09-20 09:23 | Emergency (ER) | payer MEDICARE, MEDICAID ==
[~2019-09-20] VITALS: Ht 175.3 cm; Wt 91.4 kg
[~2019-09-20 09:23] MED LIST changes: -ISOVUE-300 61% 50ML VIAL (Q9967) As Ordered ONE; -LIDOCAINE 1% MDV 20ML VIAL As Ordered ONE; -MIDAZOLAM INJ 2 MG/2 ML VIAL (J2250) As Ordered ONE; -fentaNYL 100 MCG/2 ML INJECTION (J3010) As Ordered ONE
[2019-09-20] MEDS ORDERED: NS 1,000 ML IV ONE (09:30)
[2019-09-20 10:26] LABS: VENOUS BASE EXCESS 3.1 (-2.0-2.0); VENOUS HCO3 27.6 MEQ/L (23.0-27.0); VENOUS O2 SATURATION 97.6 % (60.0-80.0); VENOUS PARTIAL PRESSURE CO2 41.5 mmHg (38.0-50.0); VENOUS PARTIAL PRESSURE O2 92.1 mmHg (30.0-50.0); VENOUS STANDARD HCO3 27.3 MEQ/L; VENOUS TOTAL CO2 28.8 MEQ/L (24.0-28.0)
[2019-09-20 10:31] LABS: BASO # 0.1 10^3/uL (0.0-0.2); BASO % 0.6 % (0.0-1.0); EOS # 0.4 10^3/uL (0.0-0.5); EOS % 3.4 % (0.0-3.0); HEMATOCRIT 30.6 % (36.0-47.0); HEMOGLOBIN 10.4 g/dl (12.0-15.5); LYMPH % 18.1 % (24.0-44.0); MEAN CORPUSCULAR HEMOGLOBIN 31.8 pg (27.0-33.0); MEAN CORPUSCULAR VOLUME 93.6 fl (80.0-96.0); MONO % 9.2 % (0.0-5.0); NEUTROPHILS # 7.6 10^3/uL (1.5-8.5); NEUTROPHILS % 68.3 % (36.0-66.0); PLATELET COUNT, AUTOMATED 393 10^3/uL (150-450); RED BLOOD COUNT 3.27 10^6/uL (4.00-5.40); WHITE BLOOD COUNT 11.1 10^3/uL (4.0-10.0)
[2019-09-20] MEDS ORDERED: HumuLIN R (REGULAR) INSULIN (NovoLIN R) **100U/ML** PER UNIT IV ONE ×2 (10:45→12:15)
--- NOTE | 2019-09-20 10:46 | REP ---
Chest x-ray: Two views. History: Cough. Comparison study: March 26. Findings: Monitoring electrodes overlie the chest. Lungs are symmetrically aerated clear. Pleural angles are sharp. Heart is not enlarged. Pulmonary vasculature is not increased. No significant bony abnormality is seen. Impression: No acute disease. Electronically Signed by Phil Rizzo MD 09/20/2019 10:37 A
[2019-09-20 10:54] LABS: HEMOGLOBIN A1c 10.2 %
[2019-09-20 10:59] LABS: HCG, SERUM QUALITATIVE NEGATIVE (NEGATIVE)
[2019-09-20 11:03] LABS: ACETONE/KETONE 2.14 MG/DL (<2.81); ALBUMIN 2.8 GM/DL (3.2-5.2); ALT/SGPT 19 U/L (12-78); BILIRUBIN,DIRECT < 0.1 MG/DL (0.0-0.2); BILIRUBIN,TOTAL 0.4 MG/DL (0.2-1.0); LIPASE 198 U/L (73-393); MAGNESIUM LEVEL 1.7 MG/DL (1.8-2.4); PHOSPHORUS LEVEL 3.2 MG/DL (2.5-4.9); TOTAL PROTEIN 6.8 GM/DL (6.4-8.2)
[2019-09-20 15:43] VITALS: BP 153/92
== END 2019-09-20 15:43 | disposition home or self-care (01) ==
LOC: M ED 09:23
DX: E10.65 Type 1 diabetes mellitus with hyperglycemia (principal); I12.0 Hypertensive chronic kidney disease with stage 5 chronic kidney disease or end stage renal disease; N18.6 End stage renal disease; F33.9 Major depressive disorder, recurrent, unspecified; Z99.2 Dependence on renal dialysis; Z79.899 Other long term (current) drug therapy; Z79.4 Long term (current) use of insulin; Z88.5 Allergy status to narcotic agent; Z91.040 Latex allergy status; Z91.048 Other nonmedicinal substance allergy status

== ENCOUNTER → 2019-09-20 | Outpatient (CLI) | payer MEDICARE, MEDICAID ==
[~2019-09-20] MED LIST changes: +ISOVUE-300 61% 50ML VIAL (Q9967) As Ordered ONE; +LIDOCAINE 1% MDV 20ML VIAL As Ordered ONE; +MIDAZOLAM INJ 2 MG/2 ML VIAL (J2250) As Ordered ONE; +fentaNYL 100 MCG/2 ML INJECTION (J3010) As Ordered ONE
[2019-09-20 08:23] VITALS: BP 180/97
[2019-09-20 09:14] LABS: BEDSIDE GLUCOSE 534 MG/DL (70-105)
--- NOTE | 2019-09-20 09:23 | ROOPDOC ---
[facility] Report Of Operation Report of Operation DATE OF PROCEDURE: 09/20/19 Patient seen and examined preprocedure today for right upper extremity fistulogram and intervention. She was quite somnolent per the nurses, says she is very tired. She says she was up all night coughing. Accu-Chek was greater than 520, and the patient says her blood sugar usually is less than 180. Her vital signs are stable. She dialyzed yesterday with her fistula without difficulty, thus this is not an urgent or emergent procedure and I think the safest thing is for the patient to proceed to the ER for evaluation for hypergl ycemia. Unclear if this could be treated with a sliding scale insulin or if she might need an insulin drip. We will let the ER decide on further management. We will reschedule her fistulogram after her medical issues are optimized. MARIZA FITZGERALD MD Sep 20, 2019 09:23
== END ==
LOC: M IRPRO 07:45
PROVIDERS: ATTEND Surgery Vascular Surgery
DX: N18.6 End stage renal disease (principal); Z53.9 Procedure and treatment not carried out, unspecified reason

== ENCOUNTER 2019-10-25 11:20 | Inpatient (IN) | payer MEDICARE, MEDICAID ==
[~2019-10-25] VITALS: Ht 175.3 cm; Wt 101.7 kg
[2019-10-25] MEDS ORDERED: LANTINJ4 SC (11:54)
[2019-10-25] MEDS ORDERED: MINO2.5T PO (11:54)
[2019-10-25] MEDS ORDERED: VITA200028 PO (11:54)
[2019-10-25] MEDS ORDERED: METO200T28 PO (11:54)
[2019-10-25] MEDS ORDERED: VELP5CHW PO (11:54)
[2019-10-25] MEDS ORDERED: FLUO10CA15 PO (11:54)
[2019-10-25 13:49] LABS: BASO # 0.1 10^3/uL (0.0-0.2); BASO % 0.6 % (0.0-1.0); EOS # 0.3 10^3/uL (0.0-0.5); EOS % 2.3 % (0.0-3.0); HEMATOCRIT 33.8 % (36.0-47.0); HEMOGLOBIN 11.1 g/dl (12.0-15.5); LYMPH # 2.5 10^3/uL (1.5-5.0); MEAN CORPUSCULAR HEMOGLOBIN 30.9 pg (27.0-33.0); MEAN CORPUSCULAR HGB CONC 32.8 g/dl (32.0-36.5); MEAN CORPUSCULAR VOLUME 94.2 fl (80.0-96.0); MONO # 0.7 10^3/uL (0.0-0.8); MONO % 5.3 % (0.0-5.0); NEUTROPHILS # 9.4 10^3/uL (1.5-8.5); NEUTROPHILS % 72.3 % (36.0-66.0); PLATELET COUNT, AUTOMATED 482 10^3/uL (150-450); RED BLOOD COUNT 3.59 10^6/uL (4.00-5.40)
[2019-10-25 14:12] LABS: ALBUMIN 2.5 GM/DL (3.2-5.2); ALT/SGPT 31 U/L (12-78); BILIRUBIN,DIRECT < 0.1 MG/DL (0.0-0.2); BILIRUBIN,TOTAL 0.4 MG/DL (0.2-1.0); BLOOD UREA NITROGEN 7 MG/DL (7-18); CALCIUM LEVEL 8.4 MG/DL (8.5-10.1); CARBON DIOXIDE LEVEL 30 MEQ/L (21-32); CHLORIDE LEVEL 98 MEQ/L (98-107); CK-MB VALUE MASS 1.8 NG/ML (<3.6); CPK CREATINE PHOSPHOKINASE 274 U/L (26-192); GLOMERULAR FILTRATION RATE 20.2 (>60); GLUCOSE, FASTING 190 MG/DL (70-100); LIPASE 71 U/L (73-393); MB/CK RELATIVE INDEX 0.66 (< OR =4); POTASSIUM SERUM 3.2 MEQ/L (3.5-5.1); SODIUM LEVEL 139 MEQ/L (136-145); TROPONIN I 0.04 NG/ML (< 0.10)
[2019-10-25] MEDS: GASTROGRAFIN SOLUTION 30ML PO SCH ×2 (15:19→15:57)
[2019-10-25] MEDS ORDERED: MINOXIDIL 2.5 MG TAB PO SCH ×2 (16:15→19:45)
[2019-10-25] MEDS ORDERED: cloNIDine 0.2 MG TAB PO ONE (16:15)
[2019-10-25] MEDS ORDERED: ISOVUE-370 76% 100ML VIAL (Q9967) As Ordered ONE (16:43)
--- NOTE | 2019-10-25 17:12 | REP ---
Clinical: Abdominal pain. Diverticulitis. Technique: Axial images from the lung bases to the pubic symphysis using oral contrast material with coronal and sagittal re-formations. Comparison: 07/07/2019. Findings: Lung bases demonstrate small pleural effusions and bibasilar atelectasis. Liver, spleen, pancreas, gallbladder, bilateral adrenal glands and kidneys are normal for noncontrast evaluation. The enteric system demonstrates moderate fecal stasis without obstruction or obvious acute inflammatory process. Few scattered colonic and sigmoid diverticula noted without obvious acute diverticulitis. Pelvis demonstrates normal bladder and age-appropriate uterus/adnexa. Small amount of pelvic free fluid is nonspecific and possibly physiologic. No free air. No adenopathy. Abdominal aorta without aneurysm. Musculoskeletal structures are intact without focal abnormality. Impression: 1. Small pleural effusions and bibasilar atelectasis. 2. Moderate fecal stasis. 3. Small amount of free fluid in the pelvis likely physiologic and related to menstrual cycle. 4. No further acute abdominopelvic pathology appreciated. Electronically Signed by Guy Garcia MD 10/25/2019 05:04 P
[2019-10-25] MEDS: SUCROFERRIC OXYHYDROXIDE 500MG CHEW TAB (VELPHORO) PO SCH ×2 (17:37→17:41)
[2019-10-25] MEDS ORDERED: CLON0.2T PO (18:32)
[2019-10-25] MEDS ORDERED: hydrALAZINE INJ 20 MG/ML VIAL IV PRN (19:45)
[2019-10-25] MEDS ORDERED: DEXTROSE 50% 50 ML SYRINGE IV PRN (20:00)
[2019-10-25] MEDS ORDERED: GLUCAGON FOR INJ 1 MG VIAL (J1610) SC PRN (20:00)
[2019-10-25] MEDS ORDERED: GLUCOSE 4 GM CHEW TABLET PO PRN (20:00)
[2019-10-25] MEDS ORDERED: ONDANSETRON 4MG/2ML VIAL (J2405) IV PRN (21:15)
[2019-10-25 21:20] VITALS: BP 190/105
[2019-10-25] MEDS ORDERED: MIRALAX *UNIT DOSE* 17GM PACKET PO PRN (21:30)
--- NOTE | 2019-10-25 21:40 | HPEPDOC ---
[facility] Medical History & Physical Date of Admission Oct 25, 2019 Date of Service: Oct 25, 2019 Attending Physician: ASHLEY BRYANT MD History and Physical CHIEF COMPLAINT: Nausea/Vomiting. Elevated BP HISTORY OF PRESENT ILLNESS: Patient is a 34 year old female with poorly controlled diabetes mellitus type one and ESRD who presented to the [facility] ER with complaint of nausea, vomiting for 2 weeks and elevated blood pressure. The patient stated that about two weeks ago she had developed nausea and vomiting. She presented to the ER at that point in time and was told she had a viral gastroenteritis. Since being seen in the ER she admits to continued nausea and vomiting although noted improvement since onset two weeks ago. Currently she states that she is tolerating oral intake however develops some nausea. She denies any abdominal pain. She denies any fevers but admits to some chills and nightsweats a few days ago. Currently she is compliant with her hemodialysis and was seen today for hemodialysis. She stated that her blood pressure was elevated and she was nauseas so she was sent to the ER. The patient states that her blood pressure normally is high. In the ER the patient was found to be in hypertensive urgency with a BP of 242/126. She was asymptomatic and has remained so. Patient received a dose of minoxidil and clonidine in the ER with appropriate reduction in her blood pressure. She received an abdominal pelvis CT which demonstrated small pleural effusions, fecal stasis, but otherwise not acute findings. PAST MEDICAL HISTORY: 1. Diabetes Mellitus Type 1 2. End Stage Renal Disease on Hemodialysis 3. Medical Noncompliance 4. Diabetic proliferative Retinopathy PAST SURGICAL HISTORY: 1. Right Arm Fistula 2. Photocoagulation for diabetic proliferative retinopathy 3. Brain Surgery for cyst 4. Caesarean Section SOCIAL HISTORY: Patient currently lives at home with her 7 year old son. She is a nonsmoker. She denies any current or past tobacco use. She denies any IV or illicit drug use FAMILY HISTORY: Patients mother has a history of DMII with complications and is . Her father has COPD and HTN. She has a brother with epilepsy. She has a sister whom has a medical history that she is unsure of. ALLERGIES: Please see below. REVIEW OF SYSTEMS: CONSTITUTIONAL: Denies fevers. Admits to occasional chills. Denies unintentional weight loss or weight gain. Admits to occasional night sweats HEENT: Denies difficulty swallowing. Denies pain on swallowing. Denies lymphadenopathy CARDIOVASCULAR: Denies chest pain, palpitations, or feelings of the heart racing RESPIRATORY: Denies shortness of breath. Denies wheezing. Denies cough GASTROINTESTINAL: Denies abdominal pain. Admits to nausea and vomiting. Admits to constipation. Denies bloody or dark tarry stools GENITOURINARY: Denies dysuria or increased frequency SKIN: Denies rashes or lesions MUSCULOSKELETAL: Denies muscle weakness or fatigue NEUROLOGICAL: Denies changes in speech or gait PSYCHIATRIC: Denies depression or anxiety ENDOCRINE: Denies heat intolerance or cold intolerance. Admits to diabetes type 1 HEMATOLOGIC/LYMPHATIC: Denies easy bruising or bleeding HOME MEDICATIONS: Please see below. PHYSICAL EXAMINATION: VITAL SIGNS: Temperature 98.0, pulse 85, respiratory rate 17, blood pressure 252/100, pulse oximetry 100% on room air. GENERAL APPEARANCE: Awake, alert, and oriented. Appears in no acute distress. Lying comfortably in bed. HEENT: Atraumatic, normocephalic. Eyes are nonicteric. Trachea is midline. Mucous membranes are pink and moist. No palpable cervical, supraclavicular, or axillary lymphadenopathy CARDIOVASCULAR: Normal S1, S2. Regular rate and rhythm. No clicks rubs or murmurs LUNGS: Clear vesicular breath sounds bilaterally with good respiratory effort. No wheezes, rhonchi, or rale. Symmetric chest expansion ABDOMEN: Soft, nondistended. Nontender. No rebound tenderness or guarding. Normoactive bowel sounds throughout EXTREMITIES: No edema. Full and equal pulses in bilateral upper and lower extremities NEUROLOGICAL: No focal neurological deficits PSYCHIATRIC: Mood and affect appear appropriate LABORATORY DATA: See below. IMAGING: Clinical: Abdominal pain. Diverticulitis. Technique: Axial images from the lung bases to the pubic symphysis using oral contrast material with coronal and sagittal re-formations. Comparison: 07/07/2019. Findings: Lung bases demonstrate small pleural effusions and bibasilar atelectasis. Liver, spleen, pancreas, gallbladder, bilateral adrenal glands and kidneys are normal for noncontrast evaluation. The enteric system demonstrates moderate fecal stasis without obstruction or obvious acute inflammatory process. Few scattered colonic and sigmoid diverticula noted without obvious acute diverticulitis. Pelvis demonstrates normal bladder and age-appropriate uterus/adnexa. Small amount of pelvic free fluid is nonspecific and possibly physiologic. No free air. No adenopathy. Abdominal aorta without aneurysm. Musculoskeletal structures are intact without focal abnormality. Impression: 1. Small pleural effusions and bibasilar atelectasis. 2. Moderate fecal stasis. 3. Small amount of free fluid in the pelvis likely physiologic and related to menstrual cycle. 4. No further acute abdominopelvic pathology appreciated. Electronically Signed by Guy Garcia MD 10/25/2019 05:04 P MICROBIOLOGY: Please see below. ASSESSMENT: Patient is a 34 year old female who presented to the [facility] ER with complaint of nausea and vomiting for 2 weeks duration and was found to be in hypertensive urgency . PLAN: 1. Hypertensive Urgency -Patient currently has elevated blood pressure with Systolics over 200. She is asymptomatic with no signs of end organ damage. Patient has been given minoxidil and clonidine in the ER with appropriate reduction in BP. Will continue patient's home medications including metoprolol, norvasc, clonidine, and minoxidil -Hydralazine PRN for SBP > 200. Goal of 15-20% reduction over 24hours. -Vital Signs Q4H 2. Nausea and Vomiting 2/2 Viral Gastroenteritis -Patient complains of nausea and vomiting which has been improving. -Abdominal imaging is negative for any acute process. Abdominal exam is benign. Will continue with supportive measures -Patient is currently tolerating oral intake. Will place on clear liquids diet. If tolerated will advance -Zofran PRN nausea 3. ESRD on Hemodialysis -Nephrology consultation for dialysis while inpatient. She has received dialysis today 4. Diabetes Mellitus Type 1 -Patient is on Glargine 20units QHS. Will place on Levemir 10 units with sliding scale. Will adjust as necessary 5. Constipation -Patient stated that she has been constipated for past week. Fecal stasis demonstrated on CT abdomen. -Senna BID and miralax 6. DVT prophylaxis -Maninder score of 1 indicating low risk of thromboembolism. Will place patient on Teds and sequentials Vital Signs Vital Signs Date Time Temp Pulse Resp B/P (MAP) Pulse Ox O2 Delivery O2 Flow Rate FiO2 10/25/19 21:05 83 18 10/25/19 19:32 96.9 162/92 (115) 100 Room Air Laboratory Data Labs 24H Laboratory Tests 2 10/25/19 13:33: Immature Granulocyte % (Auto) 0.5, Neutrophils (%) (Auto) 72.3H, Lymphocytes (%) (Auto) 19.0L, Monocytes (%) (Auto) 5.3H, Eosinophils (%) (Auto) 2.3, Basophils (%) (Auto) 0.6, Neutrophils # (Auto) 9.4H, Lymphocytes # (Auto) 2.5, Monocytes # (Auto) 0.7, Eosinophils # (Auto) 0.3, Basophils # (Auto) 0.1, Nucleated Red Blood Cells % (auto) 0.0, Anion Gap 11, Glomerular Filtration Rate 20.2L, Calcium Level 8.4L, Total Bilirubin 0.4, Direct Bilirubin < 0.1, Aspartate Amino Transf (AST/SGOT) 32, Alanine Aminotransferase (ALT/SGPT) 31, Alkaline Phosphatase 104, Total Creatine Kinase 274H, Creatine Kinase MB 1.8, Creatine Kinase MB Relative Index 0.66, Troponin I 0.04, Total Protein 7.0, Albumin 2.5L, Albumin/Globulin Ratio 0.56L, Lipase 71L CBC/BMP Laboratory Tests 10/25/19 13:33 Home Medications Scheduled Amlodipine Besylate (Amlodipine Besylate) 10 Mg Tab, 10 MG PO DAILY Calcitriol (Calcitriol) 0.25 Mcg Cap, 0.25 MCG PO DAILY Calcium Carbonate/Vitamin D3 (Calcium 500-Vit D3 400 Tablet) 1 Tab Tab, 1 TAB PO DAILY Clonidine HCl (Clonidine HCl) 0.2 Mg Tablet, 0.2 MG PO TID Ergocalciferol (Vitamin D2) (Vitamin D2) 2,000 Unit Tablet, 50,000 UNIT PO QWEEK FRIDAYS Insulin Glargine,Hum.rec.anlog (Lantus Solostar) 100 Unit/1 Ml Insuln.pen, 20 UNITS SC QHS Metoprolol Succinate (Metoprolol Succinate) 200 Mg Tab.er.24h, 200 MG PO QHS Minoxidil (Minoxidil) 2.5 Mg Tablet, 2.5 MG PO 3XW MON, WED, FRI AFTER DIALYSIS Allergies Coded Allergies: latex (Verified Allergy, Unknown, 08/09/19) morphine (Verified Allergy, Unknown, 08/09/19) TAPE (Verified Adverse Reaction, Intermediate, IRRITATES SKIN, 08/09/19) USE PAPER TAPE ONL;Y A-FIB/CHADSVASC A-FIB History Current/History of A-Fib/PAF?: No AMANDA SHIRLEY DO Oct 25, 2019 21:40 ASHLEY BRYANT MD Oct 25, 2019 22:36
[2019-10-25] MEDS: SENNA 8.6 MG TAB (SENOKOT) PO SCH (22:03)
[2019-10-25] MEDS: cloNIDine 0.2 MG TAB PO SCH (22:04)
[2019-10-25] MEDS: METOPROLOL SUCC (TopROL XL) 100MG *XL* TAB PO SCH (22:04)
[2019-10-25] MEDS: HumaLOG INSULIN (NovoLOG) PER UNIT SC SCH (22:05)
[2019-10-25] MEDS: LEVEMIR (INSULIN DETEMIR) 1 UNITS/0.01ML SC SCH (22:05)
[2019-10-26] VITALS (7 sets, daily range): BP systolic 114–180; BP diastolic 76–108
[2019-10-26 05:53] LABS: HEMATOCRIT 29.2 % (36.0-47.0); MEAN CORPUSCULAR HEMOGLOBIN 29.9 pg (27.0-33.0); MEAN CORPUSCULAR HGB CONC 31.2 g/dl (32.0-36.5); MEAN CORPUSCULAR VOLUME 96.1 fl (80.0-96.0); PLATELET COUNT, AUTOMATED 456 10^3/uL (150-450); RED BLOOD COUNT 3.04 10^6/uL (4.00-5.40); WHITE BLOOD COUNT 8.3 10^3/uL (4.0-10.0)
[2019-10-26 05:57] LABS: HEMOGLOBIN 9.1 g/dl (12.0-15.5)
[2019-10-26] MEDS: hydrALAZINE INJ 20 MG/ML VIAL IV SCH ×4 (06:00→23:35)
[2019-10-26 06:14] LABS: CALCIUM LEVEL 8.4 MG/DL (8.5-10.1); CREATININE FOR GFR 4.78 MG/DL (0.55-1.30); GLOMERULAR FILTRATION RATE 13.6 (>60)
[2019-10-26] MEDS: HumaLOG INSULIN (NovoLOG) PER UNIT SC SCH ×4 (08:10→20:38)
[2019-10-26] MEDS: cloNIDine 0.2 MG TAB PO SCH ×3 (08:50→20:50)
[2019-10-26] MEDS: amLODIPine 10 MG TAB PO SCH (08:50)
[2019-10-26] MEDS: SENNA 8.6 MG TAB (SENOKOT) PO SCH ×2 (08:50→20:49)
[2019-10-26] MEDS: CALCITRIOL 0.25 MCG CAP (S0169) PO SCH (08:51)
[2019-10-26] MEDS ORDERED: MINOXIDIL 2.5 MG TAB PO SCH ×2 (09:00→16:00)
[2019-10-26] MEDS ORDERED: POTASSIUM CHLORIDE 10 MEQ SR TABLET PO ONE (09:00)
--- NOTE | 2019-10-26 11:29 | IPNPDOC ---
Subjective Date Seen The patient was seen on 10/26/19. Subjective Chief Complaint/HPI feeling better this morning. No nausea or vomiting at present. No fever or chcills, no chest pain or sob , no abdominal pain. No bowel movement yet. CT abdomen shows moderate fecal stasis. Objective Physical Examination General Exam: Positive: Alert, Cooperative, No Acute Distress Eye Exam: Positive: PERRLA, Conjunctiva & lids normal, EOMI; Negative: Sclera icteric ENT Exam: Positive: Atraumatic, Mucous membr. moist/pink, Pharynx Normal Neck Exam: Positive: Supple; Negative: JVD, thyromegaly Chest Exam: Positive: Clear to auscultation, Normal air movement Heart Exam: Positive: Rate Normal, Regular Rhythm, Normal S1, Normal S2; Negative: Murmurs, Rubs Telemetry: Positive: No significant arrhythmia Abdomen Exam: Positive: Normal bowel sounds, Soft; Negative: Tenderness, Hepatospenomegaly Extremity Exam: Negative: Clubbing, Cyanosis, Edema Skin Exam: Positive: Nl turgor and temperature; Negative: Rash, Breakdown Neuro Exam: Positive: Normal Gait, Normal Speech, Strength at 5/5 X4 ext, Normal Tone, Cranial Nerves 3-12 NL, Reflexes 2+ Assessment /Plan Assessment Patient is a 34 year old female with PMH of ESRD, type 1 diabetes, hypertension, diabetes proliferative retinopathy, brain surgery for cyst, who presented to the [facility] ER with complaint of nausea and vomiting for 2 weeks duration and was found to be in hypertensive urgency. She was in the ED 2 weeks ago for similar symptoms of nausea and vomiting and was thought to be viral gastroenteritis. . Hypertensive Urgency a little better controlled. continue amlodipine, clonidine, minoxidil, and hydralazine prn Nausea and Vomiting evaluate for diabetic gastroparesis could be due to uncontrolled hypertension vs viral gastroenteritis abdominal imaging is negative. continue zofran ESRD on Hemodialysis Nephrology consultation for dialysis while inpatient. Diabetes Mellitus Type 1 Continue levemir and lispro Constipation continue bowel regimen. DVT prophylaxis on Teds and sequentials Plan/VTE VTE Prophylaxis Ordered?: Yes VS, I&O, 24H, Fishbone Vital Signs/I&O Vital Signs Date Time Temp Pulse Resp B/P (MAP) Pulse Ox O2 Delivery O2 Flow Rate FiO2 10/26/19 08:50 180/108 10/26/19 08:50 76 10/26/19 08:00 97.5 16 98 Room Air I&O- Last 24 Hours up to 6 AM 10/26/19 06:00 Intake Total 177 ml Output Total 0 ml Balance 177 ml Laboratory Data 24H LABS Laboratory Tests 2 10/25/19 13:33: Immature Granulocyte % (Auto) 0.5, Neutrophils (%) (Auto) 72.3H, Lymphocytes (%) (Auto) 19.0L, Monocytes (%) (Auto) 5.3H, Eosinophils (%) (Auto) 2.3, Basophils (%) (Auto) 0.6, Neutrophils # (Auto) 9.4H, Lymphocytes # (Auto) 2.5, Monocytes # (Auto) 0.7, Eosinophils # (Auto) 0.3, Basophils # (Auto) 0.1, Nucleated Red Blood Cells % (auto) 0.0, Anion Gap 11, Glomerular Filtration Rate 20.2L, Calcium Level 8.4L, Total Bilirubin 0.4, Direct Bilirubin < 0.1, Aspartate Amino Transf (AST/SGOT) 32, Alanine Aminotransferase (ALT/SGPT) 31, Alkaline Phos phatase 104, Total Creatine Kinase 274H, Creatine Kinase MB 1.8, Creatine Kinase MB Relative Index 0.66, Troponin I 0.04, Total Protein 7.0, Albumin 2.5L, Albumin/Globulin Ratio 0.56L, Lipase 71L 10/25/19 21:38: Bedside Glucose (Misc Panel) 295H 10/26/19 05:21: Nucleated Red Blood Cells % (auto) 0.0, Anion Gap 5L, Glomerular Filtration Rate 13.6L, Calcium Level 8.4L CBC/BMP Laboratory Tests 10/25/19 13:33 10/26/19 05:21 PORTIA SANTANA MD Oct 26, 2019 11:29
[2019-10-26] MEDS: LOSARTAN 50 MG TAB PO SCH (13:05)
[2019-10-26] MEDS ORDERED: DARBEPOETIN 100 MCG/0.5 ML *DIALYSIS* SYRINGE (J0882) IV SCH (14:00)
--- NOTE | 2019-10-26 15:29 | CR ---
DATE OF CONSULTATION: 10/26/2019 REQUESTING PHYSICIAN: Dr. Unger REASON FOR CONSULTATION: Management of end-stage renal disease, on hemodialysis. HISTORY OF PRESENT ILLNESS: Narcisa Mireles is well known to me. She is a 34-year-old female with a past medical history of type 1 diabetes mellitus since childhood and attendant end-stage renal disease secondary to diabetic nephropathy, on hemodialysis via a right upper extremity fistula. The patient also has a history of hypertension, arachnoid cyst, secondary hyperparathyroidism, anemia of chronic kidney disease, and other comorbid conditions mentioned below. She is poorly compliant. During her dialysis treatments over the past 2 weeks, the patient has been noted to have severely uncontrolled blood pressures. Systolic oftentimes is greater than 200 and does not improve with her dialysis treatment. She admitted to the dialysis nurses regarding missing her antihypertensive medications. She has also been complaining of on and off nausea and vomiting for the past couple of weeks. On Thursday she was dialyzed (because of the schedule the dialysis unit was open on Thursday), and her blood pressure was severely uncontrolled, and she was advised to go to the emergency room (ER) at the end of her dialysis treatment; however, she refused to go. I saw her in the hemodialysis unit as an outpatient on Thursday, and she was nauseous, and her blood pressure was a systolic 260, and she was advised to go to through the ER at the end of the treatment. The patient initially refused multiple times because of lack of care for her young son, whom she apparently was leaving home alone; however, after arranging for childcare she agreed to come to the ER. In the ER, she had a CT of the abdomen and pelvis, which showed small pleural effusions and fecal stasis but no acute findings, and she was started on her home oral antihypertensives. This afternoon her blood pressure is considerably improved. PAST MEDICAL HISTORY: 1. End-stage renal disease, on hemodialysis. 2. Type 1 diabetes. 3. Diabetic retinopathy. 4. Diabetic nephropathy. 5. Anemia of chronic kidney disease. 6. Secondary hyperparathyroidism renal origin. 7. Poorly controlled hypertension. 8. Arachnoid cyst. 9. Medical noncompliance. PAST SURGICAL HISTORY: 1. Right brachiocephalic fistula. 2. History of Perm-A-Cath placement and removal. 3. Photocoagulation for diabetic proliferative retinopathy. 4. Brain surgery for arachnoid cyst. 5. section. SOCIAL HISTORY: She has a 7-year-old son. She is a nonsmoker. Denies any illicit drug use. ALLERGIES: Latex, MORPHINE, and tape FAMILY HISTORY: She has family history of end-stage renal disease and dialysis dependence. HOME MEDICATIONS: Patient is noncompliant with home medications, but her home medications include: - amlodipine 10 mg by mouth daily - metoprolol 200 mg extended-release daily - losartan 100 mg by mouth daily - clonidine 0.2 mg by mouth three times a day - calcium plus vitamin D - insulin - calcitriol 0.25 mcg by mouth daily - She was recently prescribed minoxidil 2.5 mg by mouth twice daily REVIEW OF SYSTEMS: CONSTITUTIONAL: Denies fevers or chills. EYES: She denies a visual changes or tearing. She has a history of diabetic retinopathy. ENT: She denies rhinorrhea or odynophagia. CARDIOVASCULAR: She denies chest pain, palpitations, or leg edema. RESPIRATORY: She denies shortness of breath, cough or hemoptysis. GASTROINTESTINAL: She complains of nausea, vomiting, and constipation. GENITOURINARY: Denies dysuria or frequency of micturition. SKIN: Denies rashes or lesions. MUSCULOSKELETAL: Denies any new myalgias or arthralgias. NEUROLOGIC: Denies seizure or syncope. PSYCHIATRIC: Denies depression or anxiety. ENDOCRINE: Reports secondary hyperparathyroidism of renal origin and longstanding type 1 diabetes. HEMATOLOGIC: Reports anemia of chronic kidney disease. Denies anticoagulant use. Remainder review of systems is negative or as per history of present illness (HPI). VITAL SIGNS: Temperature 97.0, pulse 73, respiratory rate 18, blood pressure 114/76, saturating 98% on room air. GENERAL: The patient is seen sitting out of bed in the recliner, comfortable, ordering from the menu. Awake, alert, oriented in no acute distress. Extraocular muscles are intact. Pupils are round and reactive to light. EARS, NOSE, AND THROAT: Unremarkable. CARDIAC: S1, S2, regular rate and rhythm. No friction murmur. No edema in the peripheries. LUNGS: Clear to auscultation bilaterally. No crackle, rale, or rhonchus. ABDOMEN: Soft and nontender. There are bowel sounds. EXTREMITIES: Negative for clubbing, cyanosis, or edema, the right brachiocephalic fistula is patent with thrill and bruit. NEUROLOGIC: She is oriented times three at baseline mentation, interactive and conversational. SKIN: Normal turgor and temperature. LABORATORY DATA: White count 8.3, hemoglobin 9.1, platelet 456. Sodium 137, potassium 3.0, bicarbonate 35, BUN 11. CT scan October 25: Small pleural effusions and moderate fecal stasis. INPATIENT MEDICATIONS: - amlodipine 10 mg by mouth daily - calcitriol 0.25 mcg by mouth daily - clonidine 0.2 mg by mouth three times a day - hydralazine 10 mg IV every 6 hours if systolic blood pressure is greater than 180 - insulin - losartan 100 mg by mouth daily - metoprolol 200 mg by mouth at bedtime - minoxidil 2.5 mg by mouth twice a day. Hold for systolic less than 130. - potassium chloride 48 mEq by mouth times one - Senokot two tablets by mouth twice a day PROBLEMS: 1. End-stage renal disease, on hemodialysis. The patient's usual dialysis days are Thursday, Thursday, Thursday; however, due to the Paul[place] holiday schedule, she was dialyzed on Thursday and Thursday this week, and next treatment will be on . Her blood pressures have been severely uncontrolled in the outpatient hemodialysis unit for the past 2 weeks, and we have very much suspected medication noncompliance, but the patient usually is adamant that she has been taking her medications except when she has some nausea and vomiting. Her volume status is acceptable. Her fistula is in good use. 2. Poorly controlled hypertension. I suspect medication noncompliance. The patient is usually adamant that she is taking her pills. She has had extensive workup for secondary hypertension and outpatient setting, including fractionated catecholamines and evaluation of her adrenals. I will have a noncontrast MRA of her renal arteries while she is inpatient; however I feel it is much more likely that she is simply not taking her medications while she is at home. I would like to see how her blood pressure fares inpatient on her home regimen. If her blood pressure is controlled while she is in-house simply with her home medicines, then that supports likely medication noncompliance in the outpatient setting. I have restarted her on losartan 100 mg, which she is supposed to be taking at home. Continue current dose of amlodipine, clonidine, and metoprolol. She was recently issued a prescription for minoxidil 2.5 mg twice daily which is added as well. 3. Nausea and vomiting. She reports any further nausea or vomiting since coming into the hospital. She has only received one dose of Zofran. Her fecal stasis is being addressed with Senokot. 4. Anemia related to chronic renal failure. Continue with Aranesp with dialysis. Thank you for involving me in the care of Narcisa. I will be happy to follow her along with you.
[2019-10-26] MEDS: MINOXIDIL 2.5 MG TAB PO SCH (20:37)
[2019-10-26] MEDS: LEVEMIR (INSULIN DETEMIR) 1 UNITS/0.01ML SC SCH (20:48)
[2019-10-26] MEDS: METOPROLOL SUCC (TopROL XL) 100MG *XL* TAB PO SCH (20:49)
[2019-10-27] VITALS (7 sets, daily range): BP systolic 145–172; BP diastolic 70–99
[2019-10-27 04:53] LABS: HEMOGLOBIN 9.5 g/dl (12.0-15.5); MEAN CORPUSCULAR HEMOGLOBIN 31.5 pg (27.0-33.0); MEAN CORPUSCULAR HGB CONC 32.8 g/dl (32.0-36.5); PLATELET COUNT, AUTOMATED 478 10^3/uL (150-450); RED BLOOD COUNT 3.02 10^6/uL (4.00-5.40); WHITE BLOOD COUNT 9.7 10^3/uL (4.0-10.0)
[2019-10-27 05:22] LABS: CALCIUM LEVEL 8.3 MG/DL (8.5-10.1); CREATININE FOR GFR 5.93 MG/DL (0.55-1.30); GLOMERULAR FILTRATION RATE 10.6 (>60); POTASSIUM SERUM 3.6 MEQ/L (3.5-5.1)
[2019-10-27] MEDS: hydrALAZINE INJ 20 MG/ML VIAL IV SCH (05:51)
[2019-10-27] MEDS: HumaLOG INSULIN (NovoLOG) PER UNIT SC SCH ×4 (07:30→20:52)
[2019-10-27] MEDS: MINOXIDIL 2.5 MG TAB PO SCH ×2 (07:56→20:58)
[2019-10-27] MEDS: cloNIDine 0.2 MG TAB PO SCH ×3 (07:57→20:58)
[2019-10-27] MEDS: amLODIPine 10 MG TAB PO SCH (07:57)
[2019-10-27] MEDS: LOSARTAN 50 MG TAB PO SCH (07:57)
[2019-10-27] MEDS: CALCITRIOL 0.25 MCG CAP (S0169) PO SCH (07:58)
[2019-10-27] MEDS: SENNA 8.6 MG TAB (SENOKOT) PO SCH ×2 (07:58→20:58)
--- NOTE | 2019-10-27 10:40 | IPNPDOC ---
Subjective Date Seen The patient was seen on 10/27/19. Subjective Chief Complaint/HPI No complaints this morning. Feeling hungry, no nausea or vomiting after hospitalization. Had a bowel movement good amount. Objective Physical Examination General Exam: Positive: Alert, Cooperative, No Acute Distress Eye Exam: Positive: PERRLA, Conjunctiva & lids normal, EOMI; Negative: Sclera icteric ENT Exam: Positive: Atraumatic, Mucous membr. moist/pink, Pharynx Normal Neck Exam: Positive: Supple; Negative: JVD, thyromegaly Chest Exam: Positive: Clear to auscultation, Normal air movement Heart Exam: Positive: Rate Normal, Regular Rhythm, Normal S1, Normal S2; Negative: Murmurs, Rubs Telemetry: Positive: No significant arrhythmia Abdomen Exam: Positive: Normal bowel sounds, Soft; Negative: Tenderness, Hepatospenomegaly Extremity Exam: Negative: Clubbing, Cyanosis, Edema Skin Exam: Positive: Nl turgor and temperature; Negative: Rash, Breakdown Neuro Exam: Positive: Normal Gait, Normal Speech, Strength at 5/5 X4 ext, Normal Tone, Cranial Nerves 3-12 NL, Reflexes 2+ Assessment /Plan Assessment Patient is a 34 year old female with PMH of ESRD, type 1 diabetes, hypertension, diabetes proliferative retinopathy, brain surgery for cyst, who presented to the [facility] ER with complaint of nausea and vomiting for 2 weeks duration and was found to be in hypertensive urgency. She was in the ED 2 weeks ago for similar symptoms of nausea and vomiting and was thought to be viral gastroenteritis. Hypertensive Urgency resolved. continue amlodipine, clonidine, minoxidil, and losartan. hydralazine prn Has not needed any hydralazine or minoxidil. I suspect patient is non complaint with her meds at home as during hospitalizat ion she bp has been very controlled MRA renal arteries have been ordered by nephro. Nausea and Vomiting evaluate for diabetic gastroparesis could be due to uncontrolled hypertension vs viral gastroenteritis abdominal imaging is negative. continue zofran ESRD on Hemodialysis Nephrology consultation for dialysis while inpatient. Diabetes Mellitus Type 1 Continue levemir and lispro Constipation continue bowel regimen. DVT prophylaxis on Teds and sequentials Plan/VTE VTE Prophylaxis Ordered?: Yes VS, I&O, 24H, Fishbone Vital Signs/I&O Vital Signs Date Time Temp Pulse Resp B/P (MAP) Pulse Ox O2 Delivery O2 Flow Rate FiO2 12/26/19 07:56 164/100 10/27/19 07:32 97.2 77 18 97 Room Air I&O- Last 24 Hours up to 6 AM 10/27/19 06:00 Intake Total 2335 ml Output Total 500 ml Balance 1835 ml Laboratory Data 24H LABS Laboratory Tests 2 10/26/19 11:25: Bedside Glucose (Misc Panel) 38*L 10/26/19 11:27: Bedside Glucose (Misc Panel) 41L 10/26/19 11:59: Bedside Glucose (Misc Panel) 93 10/26/19 16:27: Bedside Glucose (Misc Panel) 334H 10/26/19 19:49: Bedside Glucose (Misc Panel) 151H 10/27/19 04:11: Nucleated Red Blood Cells % (auto) 0.0, Anion Gap 7L, Glomerular Filtration Rate 10.6L, Calcium Level 8.3L CBC/BMP Laboratory Tests 10/27/19 04:11 PORTIA SANTANA MD Oct 27, 2019 10:40
--- NOTE | 2019-10-27 11:47 | REP ---
NUCLEAR GASTRIC EMPTYING SCAN: Following the oral administration of 1.03 mCi technetium-99m sulfur colloid in two scrambled eggs and 6 ounces of water, multiple images of the upper abdomen are performed in the anterior and posterior projections. Imaging is performed for 90 minutes. At the end of 90 minutes, only 2% of the ingested activity has emptied from the stomach. IMPRESSION: Findings compatible with gastroparesis. Electronically Signed by Hesham Oconnell MD 10/27/2019 12:30 P
[2019-10-27] MEDS ORDERED: HEPARIN 1,000 UNITS/ML 10ML VIAL (FOR RADIOLOGY& DIALYSIS ONLY) IV ONE (12:45)
[2019-10-27] MEDS ORDERED: LIDOCAINE 1% SDV 5 ML VIAL SQ ONE (12:45)
--- NOTE | 2019-10-27 14:42 | REP ---
MRA RENAL ARTERIES: MRA renal arteries performed without the use of intravenous gadolinium. [id number] imaging is performed with MIP reconstruction images. Abdominal aorta is normal in caliber with no aneurysm. Main renal artery bilaterally is patent with no evidence of significant renal artery stenosis. IMPRESSION: No MR evidence of significant stenosis of either main renal artery. Electronically Signed by Hesham Oconnell MD 10/27/2019 04:34 P
[2019-10-27] MEDS: METOPROLOL SUCC (TopROL XL) 100MG *XL* TAB PO SCH (20:59)
[2019-10-27] MEDS: LEVEMIR (INSULIN DETEMIR) 1 UNITS/0.01ML SC SCH (20:59)
[2019-10-28 06:00] VITALS: BP 165/95
[2019-10-28 07:01] LABS: HEMATOCRIT 31.3 % (36.0-47.0); HEMOGLOBIN 9.7 g/dl (12.0-15.5); MEAN CORPUSCULAR HEMOGLOBIN 30.7 pg (27.0-33.0); MEAN CORPUSCULAR VOLUME 99.1 fl (80.0-96.0); PLATELET COUNT, AUTOMATED 484 10^3/uL (150-450); RED BLOOD COUNT 3.16 10^6/uL (4.00-5.40)
[2019-10-28 07:26] LABS: CALCIUM LEVEL 8.8 MG/DL (8.5-10.1); CREATININE FOR GFR 4.96 MG/DL (0.55-1.30); GLOMERULAR FILTRATION RATE 13.1 (>60); POTASSIUM SERUM 4.3 MEQ/L (3.5-5.1)
[2019-10-28] MEDS: MINOXIDIL 2.5 MG TAB PO SCH (09:58)
[2019-10-28] MEDS: cloNIDine 0.2 MG TAB PO SCH (09:58)
[2019-10-28] MEDS: SENNA 8.6 MG TAB (SENOKOT) PO SCH (09:58)
[2019-10-28] MEDS: LOSARTAN 50 MG TAB PO SCH (09:58)
[2019-10-28] MEDS: CALCITRIOL 0.25 MCG CAP (S0169) PO SCH (09:58)
[2019-10-28] MEDS: amLODIPine 10 MG TAB PO SCH (09:59)
[2019-10-28] MEDS: HumaLOG INSULIN (NovoLOG) PER UNIT SC SCH ×2 (10:07→12:38)
[2019-10-28] MEDS ORDERED: MINO2.5T PO (10:38)
[2019-10-28] MEDS ORDERED: COZA50TA PO (10:38)
--- NOTE | 2019-10-28 11:17 | IPN ---
DATE: 10/27/2019 SUBJECTIVE: Narcisa is seen and examined this morning at the bedside. She had her nuclear medicine gastric emptying scan. It was consistent with gastroparesis. She also had a noncontrast MRA which was negative for renal artery stenosis. She reports she has not had any nausea or vomiting since she came to the emergency room (ER). She is tolerating the diet very well. Her blood pressures are fairly well-controlled on her home regimen and I discussed again at length need for compliance with antihypertensives at home and also need for close home blood pressure monitoring. temperature 97.2, pulse 77, respiratory rate 18, blood pressure 152/98, saturating 97% on room air. Intake yesterday was 2.3 liters, urine output yesterday was 500. Dialysis today removed 2 liters weight in the bed scale today is 96.5 kg. General: The patient is seen sitting out of bed to the chair, awake, alert, oriented, comfortable in no acute distress. Extraocular muscles are intact. Tongue is moist. Neck is supple. Jugular veins are not elevated. Heart sounds are regular S1-S2, no murmur. No edema. Lungs are clear to auscultation bilaterally. No crackle rale or rhonchus. Abdomen is soft and nontender to exam. There are bowel sounds. The right upper extremity fistula is patent with thrill and bruit. The extremities are negative for clubbing, cyanosis or edema. Neurologic: She is oriented x3. No focal deficit. Skin: Normal temperature and turgor. LABORATORY DATA: White count 9.7, hemoglobin 9.5, platelet 478, sodium 136, potassium 3.6, bicarbonate 33, BUN 15, creatinine 5.9, noncontrast MRA negative for renal artery stenosis gastric emptying nuclear medicine scan positive for gastroparesis INPATIENT MEDICATIONS: Reviewed by myself, hydralazine IV was discontinued. Remainder medications are unchanged from prior. PROBLEMS: 1. End-stage renal disease on hemodialysis on a Thursday, Thursday, Thursday schedule. She is off of her usual schedule because of the holiday. She was dialyzed today with 2 liters of fluid removed. Her electrolytes and volume status are acceptable. Her fistula is in good use. Her compliance with dialysis treatments as an outpatient is generally good, but her compliance with antihypertensive medications is poor. 2. Status post hypertensive urgency. The patient has had extensive secondary hypertension workup as an outpatient (negative catecholamines, negative evaluation of the adrenal glands). She is now also had a negative noncontrast Magnetic Resonance Angiography, which did not show any renal artery stenosis. Her blood pressure in the hospital is much better than what it has been in the outpatient hemodialysis unit. She is noncompliant with medications as an outpatient and this has been discussed with her at length. Continue current dose of amlodipine, losartan, metoprolol, clonidine and minoxidil. 3. Anemia of chronic renal failure. She will receive Aranesp with dialysis, hemoglobin is suboptimal but stable at 9.5. 4. Nausea, vomiting nuclear medicine scan was consistent with gastroparesis. The patient is a longstanding type 1 diabetic since she was 8 years old. She has not had any nausea, vomiting since she came to the emergency room.
--- NOTE | 2019-10-28 12:16 | IPN ---
DATE: 10/28/2019 SUBJECTIVE: Narcisa is seen and examined this morning at the bedside. I discussed with her regarding her nuclear medicine gastric emptying scan yesterday and her MRA of the renal arteries. She was dialyzed yesterday with 2 liters of fluid removed. She is discharge pending today. She is scheduled for outpatient hemodialysis at 01:00 p.m. this afternoon. Her vital signs have been fairly well-controlled with systolic 140s to 150s and I discussed with her again at length regarding the need for compliance with outpatient antihypertensives. VITAL SIGNS: Temperature 97.7, pulse 82, respiratory rate 16, blood pressure 148-165 over 90s, saturating 99% on room air. Intake yesterday was 1560, dialysis removed 2 liters, weight in the bed scale today is 101.7 kg. GENERAL: The patient is seen awake, alert, oriented, comfortable, in no acute distress, sitting up in bed, eating. Extraocular muscles are intact. Pupils are round and reactive to light. Mucous membranes are moist. Neck is supple. Jugular veins are not elevated. CARDIAC: S1, S2, regular rate and rhythm. No murmur. LUNGS: Clear to auscultation bilaterally. No crackle, rale or rhonchus. ABDOMEN: Soft and nontender to examination. There are bowel sounds. The extremities are negative for clubbing, cyanosis or edema. The right upper extremity fistula is patent with thrill and bruit. SKIN: Normal temperature and turgor. NEUROLOGIC: Oriented times three. No focal deficit. LABORATORY DATA: White count 12.0, hemoglobin 9.7, platelet 484. Sodium 135, potassium 4.3. MRA of the renal arteries was negative for renal artery stenosis. MEDICATIONS: Reviewed and as compared to yesterday, there are no changes. PROBLEMS: 1. End-stage renal disease on hemodialysis on a Thursday, Thursday, Thursday schedule. The patient will be dialyzed as an outpatient today at 01:00 p.m. She is aware of the time. She was dialyzed yesterday with 2 liters of fluid removed. Her electrolytes and volume status are acceptable. Her fistula is in good use. She needs to comply with her antihypertensives. 2. Status post hypertensive urgency. The patient has very poorly controlled blood pressures as an outpatient. On hemodialysis as an outpatient, routinely her systolic is greater than 200s and we have discussed multiple times with her regarding the need for compliance with her antihypertensive regimen. She has had extensive secondary hypertension workup including assessment of her adrenals, workup for renal artery stenosis, evaluation for catecholamines, etcetera, etcetera, and all secondary hypertension workup has been negative. Once she is admitted and given her home antihypertensives, her blood pressure is rather fairly controlled. She can be discharged on her current dose of amlodipine, clonidine, losartan, metoprolol and minoxidil. 3. Anemia related to chronic renal failure. She continues on Aranesp with dialysis. 4. Nausea and vomiting. Workup revealed diabetic gastroparesis. The patient has not had any nausea or vomiting since she has been admitted. Imaging also revealed moderate fecal stasis and she is advised to continue with fiber and stool softeners, bowel regimen. DISPOSITION: The patient is acceptable for discharge from a nephrology point of view with followup in the outpatient hemodialysis unit at 01:00 p.m. this afternoon.
--- NOTE | 2019-10-31 07:28 | DS.PDOC ---
Discharge Summary General Date of Admission Oct 25, 2019 at 20:00 Date of Discharge 10/28/19 Discharge Summary PROCEDURES PERFORMED DURING STAY: [None]. DISCHARGE DIAGNOSES: Hypertensive urgency due to medication noncompliance Diabetic gastroparesis. SECONDARY DIAGNOSIS: ESRD, type 1 diabetes, hypertension, diabetes proliferative retinopathy, brain surgery for arachnoid cyst COMPLICATIONS/CHIEF COMPLAINT: ESRD. HISTORY OF PRESENT ILLNESS: See History and physical HOSPITAL COURSE: Patient is a 34 year old female with PMH of ESRD, type 1 diabetes, hypertension, diabetes proliferative retinopathy, brain surgery for cyst, who presented to the [facility] ER with complaint of nausea and vomiting for 2 weeks duration and was found to be in hypertensive urgency. She was in the ED 2 weeks ago for similar symptoms of nausea and vomiting and was thought to be viral gastroenteritis. Now admitted for hypertensive urgency and persistence of gastrointestinal symptoms. Hypertensive Urgency Due to medication Non compliance. This past 2 weeks she did admit to missing doses as she was having persistent nausea and vomiting. Bp in hospital well controlled with home regimen with resolution of nausea dn vomiting she was able to tolerate all oral meds. continue amlodipine, clonidine, minoxidil, and losartan and metoprolol. MRA renal arteries negative for any renal artery stenosis. Nausea and Vomiting Gastric emptying study shows diabetic gastroparesis recommended small frequent meals, well cooked soft foods are tolerated better. ESRD on Hemodialysis continue with outpatient HD as per nephrology Diabetes Mellitus Type 1 Continue home insulin regimen. DISCHARGE MEDICATIONS: Please see below. ALLERGIES: Please see below. PHYSICAL EXAMINATION ON DISCHARGE: VITAL SIGNS: Please see below. General Exam: Positive: Alert, Cooperative, No Acute Distress Eye Exam: Positive: PERRLA, Conjunctiva & lids normal, EOMI; Negative: Sclera icteric ENT Exam: Positive: Atraumatic, Mucous membr. moist/pink, Pharynx Normal Neck Exam: Positive: Supple; Negative: JVD, thyromegaly Chest Exam: Positive: Clear to auscultation, Normal air movement Heart Exam: Positive: Rate Normal, Regular Rhythm, Normal S1, Normal S2; Negative: Murmurs, Rubs Telemetry: Positive: No significant arrhythmia Abdomen Exam: Positive: Normal bowel sounds, Soft; Negative: Tenderness, Hepatospenomegaly Extremity Exam: Negative: Clubbing, Cyanosis, Edema Skin Exam: Positive: Nl turgor and temperature; Negative: Rash, Breakdown Neuro Exam: Positive: Normal Gait, Normal Speech, Strength at 5/5 X4 ext, Normal Tone, Cranial Nerves 3-12 NL, Reflexes 2+ LABORATORY DATA: Please see below. ACTIVITY: [As tolerated]. DIET: carb consistent, 2 gram sodium DISPOSITION: 01 Home, Self-Care. DISCHARGE INSTRUCTIONS: HD today at outpatient HD unit Follow up with PMD follow up with Nephrology. DISCHARGE CONDITION: [Stable]. TIME SPENT ON DISCHARGE: 35 minutes. Vital Signs/I&Os Vital Signs Date Time Temp Pulse Resp B/P (MAP) Pulse Ox O2 Delivery O2 Flow Rate FiO2 10/28/19 06:00 97.7 82 16 165/95 (118) 99 Room Air Laboratory Data CBC/BMP Item Value Date Time White Blood Count 12.0 10^3/uL H 10/28/19 0625 Red Blood Count 3.16 10^6/uL L 10/28/19 0625 Hemoglobin 9.7 g/dl L 10/28/19 0625 Hematocrit 31.3 % L 10/28/19 0625 Mean Corpuscular Volume 99.1 fl H 10/28/19 0625 Mean Corpuscular Hemoglobin 30.7 pg 10/28/19 0625 Mean Corpuscular Hemoglobin Concent 31.0 g/dl L 10/28/19 0625 Red Cell Distribution Width 13.9 % 10/28/19 0625 Platelet Count 484 10^3/uL H 10/28/19 0625 Sodium Level 135 MEQ/L L 10/28/19 0625 Potassium Level 4.3 MEQ/L 10/28/19 0625 Chloride Level 99 MEQ/L 10/28/19 0625 Carbon Dioxide Level 30 MEQ/L 10/28/19 0625 Anion Gap 6 MEQ/L L 10/28/19 0625 Blood Urea Nitrogen 17 MG/DL 10/28/19 0625 Creatinine 4.96 MG/DL H 10/28/19 0625 Glomerular Filtration Rate 13.1 L 10/28/19 0625 Fasting Glucose 278 MG/DL H 10/28/19 0625 Calcium Level 8.8 MG/DL 10/28/19 0625 Discharge Medications Scheduled Amlodipine Besylate (Amlodipine Besylate) 10 Mg Tab, 10 MG PO DAILY, (Reported) Calcitriol (Calcitriol) 0.25 Mcg Cap, 0.25 MCG PO DAILY, (Reported) Calcium Carbonate/Vitamin D3 (Calcium 500-Vit D3 400 Tablet) 1 Tab Tab, 1 TAB PO DAILY, (Reported) Clonidine HCl (Clonidine HCl) 0.2 Mg Tablet, 0.2 MG PO TID, (Reported) Ergocalciferol (Vitamin D2) (Vitamin D2) 2,000 Unit Tablet, 50,000 UNIT PO QWEEK, (Reported) FRIDAYS Insulin Glargine,Hum.rec.anlog (Lantus Solostar) 100 Unit/1 Ml Insuln.pen, 20 UNITS SC QHS, (Reported) Losartan Potassium (Cozaar) 50 Mg Tablet, 100 MG PO DAILY Metoprolol Succinate (Metoprolol Succinate) 200 Mg Tab.er.24h, 200 MG PO QHS, (Reported) Minoxidil (Minoxidil) 2.5 Mg Tablet, 2.5 MG PO BID Allergies Coded Allergies: latex (Verified Allergy, Unknown, 08/09/19) morphine (Verified Allergy, Unknown, 08/09/19) TAPE (Verified Adverse Reaction, Intermediate, IRRITATES SKIN, 08/09/19) USE PAPER TAPE ONL;Y PORTIA SANTANA MD Oct 31, 2019 07:28
== END 2019-10-28 12:50 | disposition home or self-care (01) | DRG 73 ==
LOC: EDBD 11:20 → M ED 11:20 → M ED INP 20:00 → M PCU 21:30 → M MSPAV 10-27 13:38
PROVIDERS: ADMIT Internal Medicine; ATTEND Internal Medicine Nephrology
PROC: 5A1D70Z Performance of Urinary Filtration, Intermittent, Less than 6 Hours Per Day (ICD-10-PCS; principal; 2019-10-27)
DX: E10.43 Type 1 diabetes mellitus with diabetic autonomic (poly)neuropathy (principal); N18.6 End stage renal disease; N25.81 Secondary hyperparathyroidism of renal origin; I16.0 Hypertensive urgency; E10.22 Type 1 diabetes mellitus with diabetic chronic kidney disease; E10.3599 Type 1 diabetes mellitus with proliferative diabetic retinopathy without macular edema, unspecified eye; K31.84 Gastroparesis; Z91.14 Patient's other noncompliance with medication regimen; Z79.899 Other long term (current) drug therapy; Z91.040 Latex allergy status; Z88.5 Allergy status to narcotic agent; Z79.4 Long term (current) use of insulin; K59.00 Constipation, unspecified; D63.1 Anemia in chronic kidney disease

== ENCOUNTER 2019-11-14 19:48 | Inpatient (IN) | payer MEDICARE, MEDICAID ==
[~2019-11-14] VITALS: Ht 175.3 cm; Wt 86.3 kg
[2019-11-14] MEDS: HumaLOG INSULIN (NovoLOG) PER UNIT SC SCH (07:00)
[~2019-11-14 19:48] MED LIST changes: +CLON0.2T PO; +COZA50TA PO; +FLUO10CA15 PO; +METO200T28 PO; +MINO2.5T PO; +VELP5CHW PO; +VITA200028 PO
[2019-11-14] MEDS ORDERED: ONDANSETRON 4MG/2ML VIAL (J2405) IV ONE (21:00)
[2019-11-14] MEDS ORDERED: LABETALOL HCL 100 MG/20 ML VIAL IV STA ×3 (21:08→23:35)
[2019-11-14 21:37] LABS: BASO # 0.1 10^3/uL (0.0-0.2); BASO % 0.6 % (0.0-1.0); EOS % 0.3 % (0.0-3.0); HEMATOCRIT 34.6 % (36.0-47.0); HEMOGLOBIN 11.2 g/dl (12.0-15.5); LYMPH # 1.3 10^3/uL (1.5-5.0); LYMPH % 11.1 % (24.0-44.0); MEAN CORPUSCULAR HEMOGLOBIN 31.1 pg (27.0-33.0); MEAN CORPUSCULAR HGB CONC 32.4 g/dl (32.0-36.5); MEAN CORPUSCULAR VOLUME 96.1 fl (80.0-96.0); MONO # 0.5 10^3/uL (0.0-0.8); MONO % 4.3 % (0.0-5.0); NEUTROPHILS # 9.9 10^3/uL (1.5-8.5); NEUTROPHILS % 83.4 % (36.0-66.0); PLATELET COUNT, AUTOMATED 609 10^3/uL (150-450); WHITE BLOOD COUNT 11.9 10^3/uL (4.0-10.0)
[2019-11-14] MEDS ORDERED: LOSA100T50 PO (21:38)
[2019-11-14] MEDS ORDERED: MINO2.5T PO (21:38)
[2019-11-14] MEDS ORDERED: TUMS750C22 PO (21:40)
[2019-11-14] MEDS ORDERED: LIDO2.5C15 TOP (21:40)
[2019-11-14 21:47] LABS: INR 1.14; PROTHROMBIN TIME 14.3 SECONDS (11.8-14.0)
[2019-11-14 21:48] LABS: PARTIAL THROMBOPLASTIN TIME 29.6 SECONDS (25.0-38.4)
[2019-11-14 22:19] LABS: ALBUMIN 3.3 GM/DL (3.2-5.2); BILIRUBIN,DIRECT 0.2 MG/DL (0.0-0.2); BILIRUBIN,TOTAL 0.5 MG/DL (0.2-1.0); CALCIUM LEVEL 8.7 MG/DL (8.5-10.1); CK-MB VALUE MASS 4.7 NG/ML (<3.6); CREATININE FOR GFR 4.9 MG/DL (0.55-1.30); GLOMERULAR FILTRATION RATE 13.2 (>60); MB/CK RELATIVE INDEX 0.82 (< OR =4); POTASSIUM SERUM 3.7 MEQ/L (3.5-5.1); TOTAL PROTEIN 8.3 GM/DL (6.4-8.2); TROPONIN I 0.05 NG/ML (< 0.10)
[2019-11-14] MEDS ORDERED: METOPROLOL SUCC (TopROL XL) 100MG *XL* TAB PO ONE (22:30)
--- NOTE | 2019-11-14 23:54 | REPVR ---
PROCEDURE INFORMATION: Exam: CT Abdomen And Pelvis Without Contrast Exam date and time: 11/14/2019 9:08 PM Age: 34 years old Clinical indication: Abdominal pain; Localized; Right; Additional info: Right sided abd pain TECHNIQUE: Imaging protocol: Computed tomography of the abdomen and pelvis without contrast. Radiation optimization: All CT scans at this facility use at least one of these dose optimization techniques: automated exposure control; mA and/or kV adjustment per patient size (includes targeted exams where dose is matched to clinical indication); or iterative reconstruction. COMPARISON: CT ABD/PEL W/PO CONTRAST ONLY 10/25/2019 4:49 PM FINDINGS: Pleural space: Small bilateral pleural effusions. Linear scarring in the right middle lobe. Liver: Normal. No mass. Gallbladder and bile ducts: Mild hyperdensity in the gallbladder likely sludge. No stones. No ductal dilatation. Pancreas: Normal. No ductal dilation. Spleen: Normal. No splenomegaly. Adrenals: Normal. No mass. Kidneys and ureters: Normal. No hydronephrosis. Stomach and bowel: Unremarkable. No obstruction. No mucosal thickening. Appendix: Questionable prominence of the base of the appendix without any surrounding inflammation, nonspecific, if clinically concerned further evaluation with contrast-enhanced examination and WBC count is recommended. Intraperitoneal space: Unremarkable. No free air. No significant fluid collection. Vasculature: Unremarkable. No abdominal aortic aneurysm. Lymph nodes: Unremarkable. No enlarged lymph nodes. Bladder: Urinary bladder wall is thickened and may represent cystitis in proper clinical setting, further evaluation with urinalysis and culture is recommended. Reproductive: Unremarkable as visualized. Bones/joints: Unremarkable. No acute fracture. Soft tissues: Mild cellulitis of the abdominal wall. IMPRESSION: Small bilateral pleural effusions. Urinary bladder wall is thickened and may represent cystitis in proper clinical setting, further evaluation with urinalysis and culture is recommended. Questionable prominence of the base of the appendix without any surrounding inflammation, nonspecific, if clinically concerned further evaluation with contrast-enhanced examination and WBC count is recommended. Electronically signed by: Jimena Miramontes On 11/14/2019 23:54:34 PM
[2019-11-15] MEDS ORDERED: fentaNYL 100 MCG/2 ML INJECTION (J3010) IV ONE ×2 (00:30→00:45)
[2019-11-15] MEDS ORDERED: hydrALAZINE INJ 20 MG/ML VIAL IV PRN (01:00)
[2019-11-15] MEDS ORDERED: NORCO, ANEXSIA 5/325MG TABLET (HYDROcodone/ACETAMINOPHEN) PO PRN ×2 (01:00)
[2019-11-15] MEDS ORDERED: ACETAMINOPHEN TAB 650MG DOSE (2X325MG) PO PRN (01:15)
[2019-11-15] MEDS ORDERED: GLUCAGON FOR INJ 1 MG VIAL (J1610) SC PRN (01:15)
[2019-11-15] MEDS ORDERED: GLUCOSE 4 GM CHEW TABLET PO PRN (01:15)
[2019-11-15] MEDS ORDERED: BACTRIM 160MG/800MG DS TAB PO ONE (02:15)
[2019-11-15] MEDS: metroNIDAZOLE 500 MG in IV 1 EA IV SCH ×3 (02:50→18:07)
[2019-11-15] MEDS: PROMETHAZINE INJ 25 MG/ML VIAL (J2550) IV PRN ×2 (02:50→09:39)
--- NOTE | 2019-11-15 03:14 | HPEPDOC ---
[facility] Medical History & Physical Date of Admission Nov 15, 2019 Date of Service: Nov 15, 2019 History and Physical CHIEF COMPLAINT: Abdominal pain HISTORY OF PRESENT ILLNESS: This is a 34-year-old female with multiple comorbidities presented to the ER with the complaint of nausea and vomiting with generalized abdominal pain for the last 3 days. She is very poor historian and has history of noncompliance. Patient states for the last 3 days shes been having nausea vomiting episodes possibly bloody. She did come to the ER originally on the 12th evening but left AGAINST MEDICAL ADVICE early morning. She went to dialysis that day then returned to the ER for the abdominal pain continued to persist. She states she is unable to eat and describes the pain as sharp in nature that radiates towards the right side. She is crying throughout the whole exam. In the ER she was found to have hypertensive urgency with a systolic greater than 200s. She was given 20 mg of labetalol X2 with minimal reduction. She continues to complain of pain CT of the abdomen showed prominence of the base of the appendix and bladder wall thickening. Fentayl citrate 50 mg X1 given and hospitalist team was called for further management. PAST MEDICAL HISTORY: 1. Diabetes Mellitus Type 1 2. End Stage Renal Disease on Hemodialysis 3. Medical Noncompliance 4. Diabetic proliferative Retinopathy HOME MEDICATIONS: Please see below. ALLERGIES: Please see below PAST SURGICAL HISTORY: 1. Right Arm Fistula 2. Photocoagulation for diabetic proliferative retinopathy 3. Brain Surgery for cyst 4. Caesarean Section SOCIAL HISTORY: Lives with: With 7-year-old son in [place], Tobacco use: Nonsmoker. ETOH: Denies Illicit drug use: Denies, CODE STATUS: Full code FAMILY HISTORY: Reviewed. Mother history of type 2 diabetes , father COPD and hypertension, brother with epilepsy REVIEW OF SYSTEMS: CONSTITUTIONAL: Denies fevers. Admits to occasional chills. Denies unintentional weight loss or weight gain. Admits to occasional night sweats HEENT: Denies difficulty swallowing. Denies pain on swallowing. Denies lymphadenopathy CARDIOVASCULAR: Denies chest pain, palpitations, or feelings of the heart racing RESPIRATORY: Denies shortness of breath. Denies wheezing. Denies cough GASTROINTESTINAL: Admits to generalized abdominal pain, decreased appetite nausea and vomiting. Denies bloody or dark tarry stools GENITOURINARY: Denies dysuria or increased frequency. SKIN: Denies rashes or lesions MUSCULOSKELETAL: Denies muscle weakness or fatigue NEUROLOGICAL: Denies changes in speech or gait PSYCHIATRIC: Denies depression or anxiety ENDOCRINE: Denies heat intolerance or cold intolerance. Admits to diabetes type 1 HEMATOLOGIC/LYMPHATIC: Denies easy bruising or bleeding PHYSICAL EXAMINATION: VITAL SIGNS: See below GENERAL: 34-year-old female lying in bed awake alert oriented speaking in complete sentences appears in in pain but does not appear respiratory distress HEENT: Atraumatic normocephalic pupils are equal round and reactive moist mucous membranes no JVD CARDIOVASCULAR: [S1 S2 tachycardic rate regular rhythm no additional heart sounds appreciated.] RESPIRATORY: Clear to auscultation bilaterally. ABDOMINAL: Bowel sounds present abdomen soft, no rebounding or guarding. Questionable Rovsing sign, positive tenderness to palpation in the lower quadrants EXTREMITIES: No clubbing cyanosis or edema NEUROLOGICAL: no gross focal deficits appreciated PSYCHOLOGICAL: Appropriate LABORATORY DATA: See below. MICROBIOLOGY: Please see below. IMAGIN11/14/2019 CT abdomen and pelvis 1. Small bilateral pleural effusions. 2. Urinary bladder wall is thickened and may represent cystitis in proper clinical setting, further evaluation with urinalysis and culture is recommended. 3. Questionable prominence of the base of the appendix without any surrounding inflammation, nonspecific, if clinically concerned further evaluation with contrast-enhanced examination and WBC count is recommended. ASSESSMENT & PLAN: This is a 34-year-old female who presented to the ER with the complaint of nausea and vomiting with generalized abdominal pain for the last 3 days and while in the ER she was found to have hypertensive urgency. PROBLEMS: 1. Abdominal pain. CT of the abdomen showed possible inflammation of the appendix versus bladder wall thickening. Also possible appendicitis versus cystitis versus UTI. Based on hemodialysis can give Bactrim double strength 1 followed by single strength daily for total of 3-5 days of antibiotic coverage for UTI/cystsis. Dr. House consulted to see the patient needs surgery. Pain management [place] 1-2 tabs PRN, s/p 25 mg fentanyl IV in the ER. Start Metronidazole 500 mg every 8 hours for 5 days for anaerobic coverage. 2. Hypertensive Urgency blood pressures over 200 systolic. Multiple doses of IV labetalol given in the ER with no appropriate reduction in BP might be secondary to pain. Will continue with home medication metoprolol, Norvasc, clonidine minoxidil and losartan. Have placed hydralazine IV 10 mg when necessary for systolic blood pressure greater than 200s level of reduction is 15-20% in the next 24 hours. Well continue to monitor. 3. ESRD on Hemodialysis. Consulted nephrology for dialysis while inpatient last dialysis was today, schedule M/W/F 4. Diabetes Mellitus Type 1. Held her home insulin. Start Levemir 10 units with sliding scale while admitted. 5. Noncompliance DVT PROPHYLAXIS: TEDs and sequential I personally saw and examined patient. I have reviewed and agree with residents findings including all diagnostic interpretations, and treatment plans as written. I was present for the mejias portions of any procedures performed and the inclusive time noted in any critical care times treatment. Time spent 35 minutes, greater than 50% of the time spent on education. Vital Signs Vital Signs Date Time Temp Pulse Resp B/P (MAP) Pulse Ox O2 Delivery O2 Flow Rate FiO2 11/15/19 02:55 98.2 103 18 213/102 (139) 99 Room Air Laboratory Data Labs 24H Laboratory Tests 2 11/14/19 21:25: Immature Granulocyte % (Auto) 0.3, Neutrophils (%) (Auto) 83.4H, Lymphocytes (%) (Auto) 11.1L, Monocytes (%) (Auto) 4.3, Eosinophils (%) (Auto) 0.3, Basophils (%) (Auto) 0.6, Neutrophils # (Auto) 9.9H, Lymphocytes # (Auto) 1.3L, Monocytes # (Auto) 0.5, Eosinophils # (Auto) 0.0, Basophils # (Auto) 0.1, Nucleated Red Blood Cells % (auto) 0.0, Prothrombin Time 14.3H, Prothromb Time International Ratio 1.14, Activated Partial Thromboplast Time 29.6, Anion Gap 17H, Glomerular Filtration Rate 13.2L, Calcium Level 8.7, Total Bilirubin 0.5, Direct Bilirubin 0.2, Aspartate Amino Transf (AST/SGOT) 27, Alanine Aminotransferase (ALT/SGPT) 17, Alkaline Phosphatase 87, Total Creatine Kinase 570H, Creatine Kinase MB 4.7H, Creatine Kinase MB Relative Index 0.82, Troponin I 0.05, Total Protein 8.3H, Albumin 3.3, Albumin/Globulin Ratio 0.66L, Amylase Level 120H, Lipase 70L 11/15/19 02:42: Bedside Glucose (Misc Panel) 299H CBC/BMP Laboratory Tests 11/14/19 21:25 Home Medications Scheduled Amlodipine Besylate (Amlodipine Besylate) 10 Mg Tab, 10 MG PO DAILY Calcitriol (Calcitriol) 0.25 Mcg Cap, 0.25 MCG PO DAILY Calcium Carbonate (Tums) 300 Mg Tab.chew, 1,500 MG PO DAILY Calcium Carbonate/Vitamin D3 (Calcium 500-Vit D3 400 Tablet) 1 Tab Tab, 1 TAB PO DAILY Clonidine HCl (Clonidine HCl) 0.2 Mg Tablet, 0.2 MG PO TID Ergocalciferol (Vitamin D2) (Vitamin D2) 2,000 Unit Tablet, 50,000 UNIT PO QWEEK FRIDAYS Insulin Glargine,Hum.rec.anlog (Lantus Solostar) 100 Unit/1 Ml Insuln.pen, 20 UNITS SC QHS Lidocaine/Prilocaine (Lidocaine-Prilocaine Cream) 2.5%/2.5% Cream..g., 1 DOSE TOP 3XW Thursday, Thursday and Thursday prior to dialysis: Apply dime size to port area. Do not rub in, cover with saran wrap to protect clothing. Losartan Potassium (Losartan Potassium) 100 Mg Tablet, 100 MG PO DAILY Metoprolol Succinate (Metoprolol Succinate) 200 Mg Tab.er.24h, 200 MG PO QHS Minoxidil (Minoxidil) 2.5 Mg Tablet, 2.5 MG PO BID Allergies Coded Allergies: latex (Verified Allergy, Unknown, 11/03/19) morphine (Verified Allergy, Unknown, 11/03/19) TAPE (Verified Adverse Reaction, Intermediate, IRRITATES SKIN, 11/03/19) USE PAPER TAPE ONL;SELMA MIGUEL DO Nov 15, 2019 03:14 WHITNEY GONGORA MD Nov 15, 2019 06:48
[2019-11-15] MEDS ORDERED: GASTROGRAFIN SOLUTION 30ML (Q9963) As Ordered ONE (06:26)
[2019-11-15] MEDS: READI-CAT 2 PO SCH ×2 (06:38→07:30)
[2019-11-15] MEDS: LEVEMIR (INSULIN DETEMIR) 1 UNITS/0.01ML SC SCH ×2 (07:00→21:05)
[2019-11-15] MEDS: HumaLOG INSULIN (NovoLOG) PER UNIT SC SCH ×4 (07:30→21:00)
--- NOTE | 2019-11-15 08:21 | REP ---
Chest x-ray: Two views. History: Evaluate for CHF. Hypertension. Comparison study: October 14, 2019. Findings: The lungs are symmetrically aerated and free of infiltrate. Pleural angles are sharp. There is slight fissural thickening on the lateral radiograph. Heart size is borderline. Cardiothoracic ratio is 48.1%. Vasculature is slightly cephalized. No bony abnormality. Impression: Borderline heart size. Cephalization. Electronically Signed by Phil Rizzo MD 11/15/2019 08:13 A
[2019-11-15] MEDS: cloNIDine 0.2 MG TAB PO SCH ×3 (09:53→21:05)
[2019-11-15] MEDS: amLODIPine 10 MG TAB PO SCH (09:53)
[2019-11-15] MEDS: LOSARTAN 50 MG TAB PO SCH (09:54)
[2019-11-15] MEDS: minoxidiL 2.5 MG TAB PO SCH ×2 (09:54→21:05)
[2019-11-15] MEDS: CALCITRIOL 0.25 MCG CAP (S0169) PO SCH (09:54)
[2019-11-15] MEDS: METOCLOPRAMIDE INJ 10MG/2ML VIAL (J2765) IV SCH ×3 (09:56→21:04)
[2019-11-15 13:03] LABS: BASO # 0.1 10^3/uL (0.0-0.2); BASO % 0.5 % (0.0-1.0); EOS # 0.1 10^3/uL (0.0-0.5); EOS % 0.4 % (0.0-3.0); LYMPH # 1.5 10^3/uL (1.5-5.0); LYMPH % 12.4 % (24.0-44.0); MEAN CORPUSCULAR HEMOGLOBIN 31.3 pg (27.0-33.0); MEAN CORPUSCULAR HGB CONC 31.7 g/dl (32.0-36.5); MEAN CORPUSCULAR VOLUME 98.6 fl (80.0-96.0); MONO # 1.1 10^3/uL (0.0-0.8); MONO % 8.8 % (0.0-5.0); NEUTROPHILS # 9.2 10^3/uL (1.5-8.5); NEUTROPHILS % 77.1 % (36.0-66.0); RED BLOOD COUNT 2.94 10^6/uL (4.00-5.40)
[2019-11-15 13:08] LABS: HEMOGLOBIN 9.2 g/dl (12.0-15.5); PLATELET COUNT, AUTOMATED 475 10^3/uL (150-450)
[2019-11-15 14:40] VITALS: BP 139/77
[2019-11-15 16:00] VITALS: BP 126/68
--- NOTE | 2019-11-15 19:02 | CR ---
DATE OF CONSULTATION: 11/15/2019 REASON FOR CONSULTATION: To assist in the management of end-stage renal disease and hypotension. HISTORY OF PRESENT ILLNESS: Ms. Mireles is a 34-year-old -[place] female with known history of longstanding poorly controlled hypertension, type 1 diabetes, end-stage renal disease, and anemia. She came to the emergency room with lower abdominal pain and has been admitted due to possible severe cystitis and appendicitis. She reports vomiting and lower abdominal pain prior to admission. She denies any dyspnea or chest pain. She receives her maintenance hemodialysis on Thursday, Thursday, and Thursday schedule and did receive her dialysis on Thursday prior to coming to the emergency room. PAST MEDICAL HISTORY: Significant for 1. Type 1 diabetes. 2. Hypertension. 3. End-stage renal disease. 4. Noncompliance with medications. 5. History of diabetic retinopathy. HOME MEDICATIONS: - amlodipine 10 mg daily - calcitriol 0.25 mcg daily - calcium with vitamin D one tablet daily - clonidine 0.2 mg three times a day - losartan 100 mg daily - metoprolol ER 200 mg daily - minoxidil 2.5 mg twice a day - She also uses Lantus insulin 20 units at bedtime. ALLERGIES: She has allergy to MORPHINE and latex. PERSONAL AND SOCIAL HISTORY: The patient lives with 7-year-old son. She denies any alcohol, tobacco, or illicit drug use. FAMILY HISTORY: Significant for diabetes and hypertension. REVIEW OF SYSTEMS: The patient denies any fever or chills. She has no headache. She has known history of diabetic retinopathy. Ears, nose and throat are otherwise unremarkable. Cardiovascular system is significant for uncontrolled hypertension. She denies any dyspnea or chest pain. Respiratory system negative for cough or hemoptysis. Gastrointestinal (GI) system is significant for nausea and lower abdominal pain. She denies any rectal bleeding, diarrhea, or black colored stools. Genitourinary () system is negative for flank pain, hematuria or dysuria. Musculoskeletal system is negative for leg edema. Endocrine system significant for secondary hyperparathyroidism and type 1 diabetes. Psychosocial system is significant for noncompliance with medications. Hematological system is significant for anemia of chronic kidney disease. Neurological system is negative for seizures or stroke. PHYSICAL EXAMINATION: Temperature 99.4 degrees Fahrenheit, heart rate 96 per minute, respiratory rate 16 per minute, blood pressure was about 200 mm of mercury systolic when she arrived, and now it is down to 129/68 mm of mercury. Oxygen saturation is 97% on room air. Head is atraumatic. Neck is supple and without jugular venous distention (JVD) or thyroid enlargement. Heart sounds are regular and somewhat tachycardiac. Lungs sound clear to auscultation. Abdomen is soft with mild tenderness in the suprapubic area bilaterally. Bowel sounds are present. Extremities have no cyanosis or clubbing. Neurologically, she is awake, at her baseline mentation, and without a focal deficit. Today's labs show WBC count 11.9, hemoglobin 11.2, and hematocrit 34.6. Sodium 139, potassium 3.7, BUN 13, and creatinine 4.9. C-reactive protein 0.68. Amylase 120 and lipase 70. She had a CT scan of abdomen and pelvis done, which showed thickened bladder wall with possible cystitis and questionable prominence of the base of appendix without any surrounding inflammation. PROBLEMS: 1. End-stage renal disease. The patient is regularly dialyzed on Thursday, Thursday and Thursday schedule. She did receive her dialysis on Thursday and will be scheduled for next dialysis on Thursday. At this point, there is no emergent indication for dialysis today, as her volume status and electrolytes are within normal range. 2. Hypertension. She has long history of uncontrolled hypertension due to noncompliance with medications. Now in the hospital her blood pressure seems much better controlled with same medications. I would recommend to continue with her chronic antihypertensive medications. 3. Abdominal pain. Possibly she has cystitis. I am not sure about appendicitis, as her tenderness is more in the midline and also slightly to the left. I will try to get a urinalysis for further assessment. I will recommend to continue with broad-spectrum antibiotic and see if her symptoms improved. Thank you for involving me in the care of Ms. Mireles. I will follow her along with you.
[2019-11-15 20:00] VITALS: BP 146/68
[2019-11-15] MEDS: METOPROLOL SUCC (TopROL XL) 100MG *XL* TAB PO SCH (21:04)
[2019-11-16] VITALS: BP 138/74
[2019-11-16] MEDS: metroNIDAZOLE 500 MG in IV 1 EA IV SCH ×3 (02:52→18:00)
[2019-11-16 04:00] VITALS: BP 136/68
[2019-11-16] MEDS: METOCLOPRAMIDE INJ 10MG/2ML VIAL (J2765) IV SCH ×5 (04:00→21:34)
[2019-11-16 06:04] LABS: HEMATOCRIT 29.9 % (36.0-47.0); HEMOGLOBIN 9.1 g/dl (12.0-15.5); MEAN CORPUSCULAR HEMOGLOBIN 30.5 pg (27.0-33.0); MEAN CORPUSCULAR HGB CONC 30.4 g/dl (32.0-36.5); MEAN CORPUSCULAR VOLUME 100.3 fl (80.0-96.0); PLATELET COUNT, AUTOMATED 410 10^3/uL (150-450); RED BLOOD COUNT 2.98 10^6/uL (4.00-5.40); WHITE BLOOD COUNT 9.1 10^3/uL (4.0-10.0)
[2019-11-16 06:31] LABS: ALBUMIN 2.3 GM/DL (3.2-5.2); CALCIUM LEVEL 7.4 MG/DL (8.5-10.1); CREATININE FOR GFR 7.81 MG/DL (0.55-1.30); GLOMERULAR FILTRATION RATE 7.7 (>60); MAGNESIUM LEVEL 2.3 MG/DL (1.8-2.4); PHOSPHORUS LEVEL 4.1 MG/DL (2.5-4.9); POTASSIUM SERUM 3.3 MEQ/L (3.5-5.1)
[2019-11-16] MEDS: LOSARTAN 50 MG TAB PO SCH (07:01)
[2019-11-16] MEDS: amLODIPine 10 MG TAB PO SCH (07:01)
[2019-11-16] MEDS: cloNIDine 0.2 MG TAB PO SCH ×3 (07:01→20:43)
[2019-11-16] MEDS: CALCITRIOL 0.25 MCG CAP (S0169) PO SCH (07:01)
[2019-11-16] MEDS: HumaLOG INSULIN (NovoLOG) PER UNIT SC SCH ×4 (07:30→20:44)
[2019-11-16] MEDS: DEXTROSE 50% 50 ML SYRINGE IV PRN ×2 (07:33→10:44)
[2019-11-16 08:00] VITALS: BP 137/77
[2019-11-16] MEDS: minoxidiL 2.5 MG TAB PO SCH ×2 (09:04→20:42)
--- NOTE | 2019-11-16 09:53 | ECGEPIP ---
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
[2019-11-16] MEDS ORDERED: D5W/0.45% SODIUM CHLORIDE 1,000 ML IV SCH (11:00)
[2019-11-16] MEDS ORDERED: POTASSIUM CHLORIDE 10 MEQ SR TABLET PO ONE (11:00)
[2019-11-16 11:03] LABS: APPEARANCE, URINE CLOUDY (CLEAR); BACTERIA, URINE AUTO 1+ (NEGATIVE); BILIRUBIN, URINE AUTO NEGATIVE (NEGATIVE); BLOOD, URINE BLOOD 3+ (NEGATIVE); COLOR, URINE YELLOW (YELLOW); GLUCOSE, URINE (UA) AUTO 3+ mg/dL (NEGATIVE); KETONE, URINE AUTO TRACE mg/dL (NEGATIVE); LEUKOCYTE ESTERASE, URINE AUTO NEGATIVE (NEGATIVE); MUCUS, URINE SMALL (NEGATIVE); NITRITE, URINE AUTO NEGATIVE (NEGATIVE); PROTEIN, URINE AUTO 3+ mg/dL (NEGATIVE); RBC, URINE AUTO TNTC /HPF (0-3); SQUAMOUS EPITHELIAL CELL UR AU 6 /HPF (0-6); UROBILINOGEN, URINE AUTO 0.2 mg/dL (0.0-2.0); WBC, URINE AUTO 44 /HPF (0-3)
[2019-11-16] MEDS ORDERED: ISOVUE-370 76% 100ML VIAL (Q9967) As Ordered ONE (11:24)
--- NOTE | 2019-11-16 14:12 | REP ---
CT ABDOMEN AND PELVIS WITH IV WITHOUT ORAL CONTRAST: HISTORY: Abdomen pain. Comparison CT study November 14, 2019. CT CONTRAST DOSE: 100 mL of intravenous Isovue 370. Preliminary motor overhauler radiograph demonstrates ingested opaque material outlining the cecum and right colon. The lung bases show bilateral atelectatic change, which is moderate in degree in the lower lobes. There are small bilateral pleural effusions. These are increased and the atelectasis is new when compared with the November 14, 2019 study. No hepatic or splenic lesion is observed. The adrenal glands are normal in appearance. No abnormality is noted in the pancreas or the gallbladder. Kidneys enhance symmetrically and are morphologically intact. There are mildly prominent aortocaval and periaortic lymph nodes in the retroperitoneum. These are stable from July 07, 2019. A normal air and contrast-filled appendix is seen without inflammatory changes. No uterine or ovarian abnormality is observed in the pelvis. No gastrointestinal obstructive lesion seen. No abdominal wall defect or bony destructive lesion is seen. IMPRESSION: No CT evidence of appendicitis. There are increasing bilateral pleural effusions and there is new bibasilar atelectatic change which is moderate in degree in the lung bases. Stable periaortic lymph nodes are present. Electronically Signed by Phil Rizzo MD 11/16/2019 06:17 P
--- NOTE | 2019-11-16 15:46 | IPN ---
DATE OF VISIT: 11/16/2019 Ms. Mireles is seen this morning on her bedside. She is lying in the bed without any acute distress. She reports generalized abdominal pain now. She has been nothing by mouth on antibiotics. Her initial CAT scan was suggestive of possible cystitis with mild inflammation at the base of appendix. On physical exam, temperature 97.5 degrees Fahrenheit, heart rate 82 per minute and respiratory rate 18 per minute. Blood pressure 137/77 mmHg and oxygen saturation 95% on room air. Head is atraumatic. Neck supple and without jugular venous distention (JVD) or thyroid enlargement. Heart sounds regular and lungs clear to auscultation. Abdomen is soft with mild tenderness and bowel sounds are present. Extremities without any cyanosis or clubbing. Neurologically, she is awake and at her baseline mentation without a focal deficit. Today's labs show WBC count 9.1, hemoglobin 9.1 and hematocrit 29.9. Platelets 410. Sodium 142, potassium 3.3, BUN 24 and creatinine 7.81. Urinalysis showed cloudy appearance with 3+ blood and too numerous to count RBCs. She had 44 WBCs and 1+ bacteria. PROBLEMS: 1. End-stage renal disease. Patient is due for dialysis today and we plan to dialyze her this afternoon. We will not remove any fluid as she has been not eating. 2. Hypokalemia related to no oral intake for the last couple of days. She will be given one dose of potassium chloride 40 mEq by mouth and we will dialyze her with 3.0 mEq potassium bath. 3. Hypertension. Blood pressure is very well controlled on current medications, which should be continued. 4. Abdominal pain. She had a repeat CT scan done with IV contrast, results are pending. She remains on antibiotics. She certainly seems to have cystitis as her urinalysis is also consistent with cystitis along with prior CAT scan. Wait for surgical opinion and repeat CAT scan with IV contrast MTDD
[2019-11-16 16:15] VITALS: BP 182/104
[2019-11-16] MEDS: BACTRIM 80MG/400MG TAB PO SCH (16:48)
--- NOTE | 2019-11-16 17:09 | IPNPDOC ---
Date Seen The patient was seen on 11/16/19. Progress Note SUBJECTIVE: 34-year-old female with past medical history of end-stage renal disease, diabetes mellitus, hypertension, was admitted for abdominal pain concerning for possible appendicitis and UTI. Patient wants eval by general surgery with low suspicion for appendicitis, underwent repeat CAT scan with IV contrast without any signs of acute appendicitis. Patient continues to have diffuse abdominal pain mostly in the lower quadrants, has remained nothing by mouth since yesterday, no other complaints at this time. Patient was also hypertensive upon admission, likely due to noncompliance with home medications, the pressure has been well controlled after patient received her home medications. Patient denies any shortness of breath, chest pain, nausea, vomiting or diarrhea at this time. 10 point review of system is negative except for above PHYSICAL EXAMINATION: VITAL SIGNS: Please see below. GENERAL: No distress HEENT: Normocephalic, atraumatic, moist mucous membranes NECK: Supple CARDIOVASCULAR EXAMINATION: S1, S2, no murmurs RESPIRATORY EXAMINATION: Clear to auscultation, no wheezing ABDOMINAL EXAMINATION: Soft, diffuse tenderness to palpation, mostly in the suprapubic and left lower quadrants, nondistended, positive bowel sounds EXTREMITIES: Range of motion intact SKIN: No rash NEUROLOGICAL EXAMINATION: Alert and oriented 3, no focal deficits PSYCHIATRIC EXAMINATION: Calm and cooperative LABORATORY DATA, IMAGING STUDIES, MICROBIOLOGY: Please see below. ASSESSMENT AND PLAN: 34-year-old female with past medical history of end-stage renal disease, hypertension, diabetes mellitus, was admitted for UTI and abdominal pain. PROBLEMS: 1. Abdominal pain: Initially thought to be possible appendicitis, ruled out on repeat CAT scan with IV contrast, possible related to cystitis, although pain is diffuse, will start clear liquid diet, possible malingering given patient's b ehavior.. 2. UTI : UA and CAT scan concerning for cystitis, continue current antibiotics (Bactrim and Flagyl) . 3. Diabetes mellitus: Started on clear liquid diet, continue fingersticks before meals and at bedtime. 4. Hypertension: Presented with hypertensive urgency, likely due to medication noncompliance, continue home meds. (Metoprolol, Norvasc, clonidine, minoxidil and losartan) DVT prophylaxis: SCD/TEDs. GI prophylaxis: Not needed VS, I&O, 24H, Fishbone Vital Signs/I&O Vital Signs Date Time Temp Pulse Resp B/P (MAP) Pulse Ox O2 Delivery O2 Flow Rate FiO2 11/16/19 16:49 182/104 11/16/19 08:00 Room Air 11/16/19 08:00 97.5 82 18 95 I&O- Last 24 Hours up to 6 AM 11/16/19 06:00 Intake Total 360 ml Output Total 0 ml Balance 360 ml Laboratory Data 24H LABS Laboratory Tests 2 11/15/19 17:17: Bedside Glucose (Misc Panel) 202H 11/15/19 21:02: Bedside Glucose (Misc Panel) 197H 11/16/19 05:46: Nucleated Red Blood Cells % (auto) 0.0, Anion Gap 5L, Glomerular Filtration Rate 7.7L, Calcium Level 7.4L, Phosphorus Level 4.1, Magnesium Level 2.3, Albumin 2.3#L 11/16/19 07:30: Bedside Glucose (Misc Panel) 34*L 11/16/19 08:08: Bedside Glucose (Misc Panel) 110H 11/16/19 09:52: Urine Color YELLOW, Urine Appearance CLOUDYH, Urine pH 8.0, Urine Specific [place] 1.020, Urine Protein 3+H, Urine Glucose (Auto)(UA) 3+H, Urine Ketones (Auto) TRACEH, Urine Blood 3+H, Urine Nitrite NEGATIVE, Urine Bilirubin NEGATIVE, Urine Urobilinogen 0.2, Urine Leukocyte Esterase (Auto) NEGATIVE, Urine WBC (Auto) 44H, Urine RBC (Auto) TNTCH, Urine Hyaline Casts (Auto) 2, Urine Bacteria (Auto) 1+H, Urine Squamous Epithelial Cells 6, Urine Mucus (Auto) SMALL, Urine Sperm (Auto) 11/16/19 10:22: Bedside Glucose (Misc Panel) 67L 11/16/19 16:51: Bedside Glucose (Misc Panel) 82 CBC/BMP Laboratory Tests 11/16/19 05:46 ASHLEY BRYANT MD Nov 16, 2019 17:09
[2019-11-16 20:00] VITALS: BP 147/73
[2019-11-16] MEDS: LEVEMIR (INSULIN DETEMIR) 1 UNITS/0.01ML SC SCH (20:43)
[2019-11-16] MEDS: METOPROLOL SUCC (TopROL XL) 100MG *XL* TAB PO SCH (20:43)
[2019-11-16 23:59] VITALS: BP 112/59
[2019-11-17] VITALS (7 sets, daily range): BP systolic 92–180; BP diastolic 58–100
[2019-11-17] MEDS: metroNIDAZOLE 500 MG in IV 1 EA IV SCH (01:58)
[2019-11-17] MEDS: METOCLOPRAMIDE INJ 10MG/2ML VIAL (J2765) IV SCH (04:00)
[2019-11-17 05:50] LABS: HEMATOCRIT 33.2 % (36.0-47.0); HEMOGLOBIN 10.4 g/dl (12.0-15.5); MEAN CORPUSCULAR HEMOGLOBIN 30.8 pg (27.0-33.0); MEAN CORPUSCULAR HGB CONC 31.3 g/dl (32.0-36.5); MEAN CORPUSCULAR VOLUME 98.2 fl (80.0-96.0); PLATELET COUNT, AUTOMATED 513 10^3/uL (150-450); RED BLOOD COUNT 3.38 10^6/uL (4.00-5.40); WHITE BLOOD COUNT 9.8 10^3/uL (4.0-10.0)
[2019-11-17 06:30] LABS: ALBUMIN 2.2 GM/DL (3.2-5.2); CALCIUM LEVEL 8.2 MG/DL (8.5-10.1); CREATININE FOR GFR 5.18 MG/DL (0.55-1.30); GLOMERULAR FILTRATION RATE 12.4 (>60); PHOSPHORUS LEVEL 3.5 MG/DL (2.5-4.9); POTASSIUM SERUM 3.8 MEQ/L (3.5-5.1)
[2019-11-17] MEDS: HumaLOG INSULIN (NovoLOG) PER UNIT SC SCH ×4 (07:30→20:29)
[2019-11-17] MEDS: BACTRIM 80MG/400MG TAB PO SCH (08:57)
[2019-11-17] MEDS: cloNIDine 0.2 MG TAB PO SCH ×3 (08:58→20:37)
[2019-11-17] MEDS: LOSARTAN 50 MG TAB PO SCH (08:58)
[2019-11-17] MEDS: CALCITRIOL 0.25 MCG CAP (S0169) PO SCH (08:59)
[2019-11-17] MEDS: minoxidiL 2.5 MG TAB PO SCH ×2 (08:59→20:37)
[2019-11-17] MEDS: amLODIPine 10 MG TAB PO SCH (08:59)
[2019-11-17] MEDS ORDERED: MOM 30ML SUSPENSION UDC PO ONE (10:00)
[2019-11-17] MEDS ORDERED: PANTOPRAZOLE 40MG TAB (PROTONIX) PO ONE (11:00)
--- NOTE | 2019-11-17 11:53 | IPNPDOC ---
Subjective General Date/Time Seen The patient was seen on 11/17/19 at 11:52. Subject Chief Complaint/History The patient is a 34-year-old female admitted with a reason for visit of Esrd;Hypertension;Hypertensive Urgency;. Current Medications Current Medications Current Medications Medications (Trade) Dose Ordered Sig/Makenzie Route PRN Reason Start Time Stop Time Status Last Admin Dose Admin Acetaminophen (Tylenol Tab) 650 mg Q4H PRN PO PAIN OR FEVER 11/15/19 01:15 Acetaminophen/ Hydrocodone Bitart ([place], [place]nexs[place] 5/325) 1 tab Q4HP PRN PO MILD/MODERATE PAIN (PS 1-7) 11/15/19 01:00 Acetaminophen/ Hydrocodone Bitart ([place], Anexsia 5/325) 2 tab Q4HP PRN PO SEVERE PAIN (PS 8-10) 11/15/19 01:00 Amlodipine Besylate (Norvasc) 10 mg DAILY PO 11/15/19 09:00 11/17/19 08:59 Barium Sulfate (Readi-Cat 2) 1 ea Q1H PO 11/15/19 06:30 11/15/19 07:31 DC 11/15/19 06:38 Calcitriol (Rocaltrol) 0.25 mcg DAILY PO 11/15/19 09:00 11/17/19 08:59 Clonidine HCl (Catapres) 0.2 mg TID PO 11/15/19 09:00 11/17/19 08:58 Dextrose (Dextrose 50%) 25 ml ASDIRECTED PRN IV SEE LABEL COMMENTS 11/15/19 01:15 11/16/19 10:44 Dextrose/Sodium Chloride 1,000 ml @ 50 mls/hr Q20H IV 11/16/19 11:00 11/17/19 11:50 DC 11/16/19 11:00 Glucagon (Glucagon) 1 mg ASDIRECTED PRN SC SEE LABEL COMMENTS 11/15/19 01:15 Glucose (Glucose) 16 GM ASDIRECTED PRN PO SEE LABEL COMMENTS 11/15/19 01:15 Home Med (Med Rec Complete!) ASDIRECTED XX 11/14/19 21:45 11/14/19 21:46 DC Hydralazine HCl (Apresoline) 10 mg Q6HP PRN IV SBP >200 11/15/19 01:00 11/15/19 06:05 Insulin Detemir (Levemir Insulin) 10 units QHS SC 11/14/19 21:00 11/16/19 20:43 Insulin Human Lispro (HumaLOG INSULIN) SEE PROTOCOL TABLE AC SC 11/15/19 07:30 Insulin Human Lispro (HumaLOG INSULIN) SEE PROTOCOL TABLE QHS SC 11/14/19 21:00 11/16/19 20:44 Labetalol HCl (Normodyne, Trandate) 20 mg STAT STAT IV 11/14/19 21:08 11/14/19 21:12 DC 11/14/19 21:30 Labetalol HCl (Normodyne, Trandate) 20 mg STAT STAT IV 11/14/19 21:50 11/14/19 21:51 DC 11/14/19 21:50 Labetalol HCl (Normodyne, Trandate) 20 mg STAT STAT IV 11/14/19 23:35 11/14/19 23:36 DC 11/15/19 00:29 Losartan Potassium (Cozaar) 100 mg DAILY PO 11/15/19 09:00 11/17/19 08:58 Metoclopramide HCl (REGLAN INJection) 10 mg Q6H IV 11/15/19 10:00 11/17/19 09:59 DC 11/16/19 09:11 Metoprolol Succinate (TopROL XL) 200 mg QHS PO 11/15/19 21:00 11/16/19 20:43 Metronidazole 500 mg/IV Miscellaneous Supplies 100 ml @ 100 mls/hr Q8H IV 11/15/19 02:00 11/17/19 11:35 DC 11/16/19 09:04 Minoxidil (Loniten) 2.5 mg BID PO 11/15/19 09:00 11/17/19 08:59 Pantoprazole Sodium (Protonix) 40 mg DAILY PO 11/18/19 09:00 Promethazine HCl (PHENERGAN INJection) 25 mg Q4HP PRN IV NAUSEA 11/15/19 01:15 11/15/19 09:39 Trimethoprim/ Sulfamethoxazole (Bactrim Ss, Septra Ss 80mg/ 400mg) 1 ea DAILY PO 11/16/19 09:00 11/18/19 08:59 11/17/19 08:57 Allergies Coded Allergies: latex (Verified Allergy, Unknown, 11/03/19) morphine (Verified Allergy, Unknown, 11/03/19) TAPE (Verified Adverse Reaction, Intermediate, IRRITATES SKIN, 11/03/19) USE PAPER TAPE ONL;Y Objective Physical Examination Examination GENERAL APPEARANCE:[Patient seen, laying in bed, awake, alert, and oriented. Comfortable, in no acute distress]. SKIN: [Warm and moist]. HEENT: [Normocephalic, atraumatic. [place] palpebral conjunctiva, anicteric sclerae. Lips and mucosa appear moist]. NECK: [Supple, no thyromegaly. No obvious jugular venous distention]. LUNGS: [Clear to auscultation bilaterally. No wheezing appreciated]. HEART: [No chest wall abnormalities. Regular rate and rhythm with no murmurs appreciated]. ABDOMEN: Abdomen is , soft, . [No hepatosplenomegaly. No umbilical or groin herniations, nondistended. No noticeable rebound or guarding. No grimacing with palpation. No rebound tenderness. No masses appreciated]. EXTREMITIES: [Extremities have no deformities. No edema identified]. Vital Signs Vital Signs Date Time Temp Pulse Resp B/P (MAP) Pulse Ox O2 Delivery O2 Flow Rate FiO2 11/17/19 08:59 180/100 11/17/19 08:59 82 11/17/19 08:00 97.3 18 99 Room Air I&Os I&O- Last 24 Hours up to 6 AM 11/17/19 06:00 Intake Total 1200 ml Output Total 2300 ml Balance -1100 ml Laboratory Data Labs 24H Laboratory Tests 2 11/16/19 16:51: Bedside Glucose (Misc Panel) 82 11/16/19 20:23: Bedside Glucose (Misc Panel) 256H 11/17/19 05:10: Nucleated Red Blood Cells % (auto) 0.0, Anion Gap 6L, Glomerular Filtration Rate 12.4L, Calcium Level 8.2L, Phosphorus Level 3.5, Magnesium Level 2.0, Albumin 2.2L CBC/BMP Laboratory Tests 11/17/19 05:10 Impression abdominal pain, left lower quadrant, right lower quadrant, periumbilical area probably from cystitis. No evidence of appendicitis on CT. Her history is not typical for appendicitis. No evidence for diverticulitis. No accompanying enteric inflammation. Most likely explanation is that the cystitis. I able advance her diet. I don't think she needs any surgical intervention at this point. MELIZA GALEAS MD Nov 17, 2019 11:53
--- NOTE | 2019-11-17 14:43 | IPN ---
DATE OF VISIT: 11/17/2019 Ms. Mireles is seen this morning on her bedside. She is laying in the bed as usual and reports that her abdominal pain is improving. She denies any dyspnea or chest pain. She did have hemodialysis yesterday which she tolerated well. She has been started on liquid diet and denies any vomiting but does report discomfort on swallowing in the retrosternal area. PHYSICAL EXAMINATION: Temperature 97.3 degrees Fahrenheit, heart rate 52 per minute and respiratory rate 18 per minute. Blood pressure 180/100 mmHg and oxygen saturation 99%. Head: Atraumatic and neck supple without jugular venous distention (JVD) or thyroid enlargement. There is no oral thrush or ulcers. Heart sounds are regular and lungs clear to auscultation. Abdomen soft and minimally tender. Bowel sounds are normal. Extremities without any cyanosis or clubbing. Neurologically she is awake, alert and oriented times three. Today's labs show WBC count 9.8, hemoglobin 10.4 and hematocrit 33.2. Platelets 513. Sodium 138, potassium 3.8, BUN 11 and creatinine 5.18. Glucose 74 and calcium 8.2. Phosphorus was 3.5 and magnesium 2.0. PROBLEMS: 1. End-stage renal disease. The patient was dialyzed yesterday and next dialysis will be due tomorrow. At present there is no emergent indication for dialysis today. 2. Hypokalemia nutritional and related to poor oral intake. This has already improved and no other intervention is indicated. 3. Abdominal pain, most likely related to cystitis and has improved. She should continue with Bactrim and is also on metronidazole by hospitalist. I am not sure if metronidazole is needed as CAT scan of abdomen and pelvis was negative for any possibility of appendicitis. 4. Anemia. Her anemia is stable and she will continue to be monitored and treated with dialysis. 5. Discomfort on swallowing. Probably she has gastroesophageal reflux. I am going to start her on pantoprazole 40 mg daily.
--- NOTE | 2019-11-17 17:54 | IPNPDOC ---
Date Seen The patient was seen on 11/17/19. Progress Note SUBJECTIVE: 34-year-old female with past medical history of end-stage renal disease, diabetes mellitus, hypertension, was admitted for abdominal pain concerning for possible appendicitis and UTI. Patient wants eval by general surgery with low suspicion for appendicitis, underwent repeat CAT scan with IV contrast without any signs of acute appendicitis. Patient continues to have diffuse abdominal pain mostly in the lower quadrants, has remained nothing by mouth since yesterday, no other complaints at this time. Patient was also hypertensive upon admission, likely due to noncompliance with home medications, the pressure has been well controlled after patient received her home medications. Patient denies any shortness of breath, chest pain, nausea, vomiting or diarrhea at this time. 11/17/19 Abdominal pain with significant improvement, currently only having epigastric pain when swallowing/eating. She is tolerating full liquid diet without difficulty, no other complaints. She denies any nausea, vomiting, diarrhea or constipation. 10 point review of system is negative except for above PHYSICAL EXAMINATION: VITAL SIGNS: Please see below. GENERAL: No distress HEENT: Normocephalic, atraumatic, moist mucous membranes NECK: Supple CARDIOVASCULAR EXAMINATION: S1, S2, no murmurs RESPIRATORY EXAMINATION: Clear to auscultation, no wheezing ABDOMINAL EXAMINATION: Soft, mild epigastric tenderness, nondistended, positive bowel sounds EXTREMITIES: Range of motion intact SKIN: No rash NEUROLOGICAL EXAMINATION: Alert and oriented 3, no focal deficits PSYCHIATRIC EXAMINATION: Calm and cooperative LABORATORY DATA, IMAGING STUDIES, MICROBIOLOGY: Please see below. ASSESSMENT AND PLAN: 34-year-old female with past medical history of end-stage renal disease, hypertension, diabetes mellitus, was admitted for UTI and abdominal pain. PROBLEMS: 1. UTI : likely the cause of patient's abdominal pain which is improving with treatment of UTI, continue Bactrim. CT negative for Appendicitis, Flagyl discontinued. 2. Diabetes mellitus: Continue sliding scale insulin coverage before meals and at bedtime. 3. Hypertension: Presented with hypertensive urgency likely due to medication noncompliance which has resolved after restarting home BP meds, continue home meds. (Metoprolol, Norvasc, clonidine, minoxidil and losartan) 4. ESRD - underwent HD yesterday, further sessions as per Nephrology 5. Acid reflux - started on PPI DVT prophylaxis: SCD/TEDs. GI prophylaxis: PPI VS, I&O, 24H, Fishbone Vital Signs/I&O Vital Signs Date Time Temp Pulse Resp B/P (MAP) Pulse Ox O2 Delivery O2 Flow Rate FiO2 11/17/19 17:22 126/69 11/17/19 16:00 97.6 81 19 98 Room Air I&O- Last 24 Hours up to 6 AM 11/17/19 06:00 Intake Total 1200 ml Output Total 2300 ml Balance -1100 ml Laboratory Data 24H LABS Laboratory Tests 2 11/16/19 20:23: Bedside Glucose (Misc Panel) 256H 11/17/19 05:10: Nucleated Red Blood Cells % (auto) 0.0, Anion Gap 6L, Glomerular Filtration Rate 12.4L, Calcium Level 8.2L, Phosphorus Level 3.5, Magnesium Level 2.0, Albumin 2.2L 11/17/19 12:01: Bedside Glucose (Misc Panel) 160H 11/17/19 16:50: Bedside Glucose (Misc Panel) 125H CBC/BMP Laboratory Tests 11/17/19 05:10 ASHLEY BRYANT MD Nov 17, 2019 17:54
[2019-11-17] MEDS: METOPROLOL SUCC (TopROL XL) 100MG *XL* TAB PO SCH (20:38)
[2019-11-17] MEDS: LEVEMIR (INSULIN DETEMIR) 1 UNITS/0.01ML SC SCH (20:39)
[2019-11-18 04:00] VITALS: BP 123/67
[2019-11-18 05:29] LABS: HEMOGLOBIN 10.1 g/dl (12.0-15.5); MEAN CORPUSCULAR HEMOGLOBIN 31.3 pg (27.0-33.0); MEAN CORPUSCULAR HGB CONC 32.6 g/dl (32.0-36.5); PLATELET COUNT, AUTOMATED 474 10^3/uL (150-450); RED BLOOD COUNT 3.23 10^6/uL (4.00-5.40); WHITE BLOOD COUNT 7.4 10^3/uL (4.0-10.0)
[2019-11-18 05:59] LABS: ALBUMIN 2.1 GM/DL (3.2-5.2); CALCIUM LEVEL 7.5 MG/DL (8.5-10.1); CREATININE FOR GFR 6.94 MG/DL (0.55-1.30); GLOMERULAR FILTRATION RATE 8.9 (>60); PHOSPHORUS LEVEL 3.5 MG/DL (2.5-4.9); POTASSIUM SERUM 4.1 MEQ/L (3.5-5.1)
[2019-11-18 08:00] VITALS: BP 115/63
[2019-11-18] MEDS: HumaLOG INSULIN (NovoLOG) PER UNIT SC SCH ×3 (08:08→17:33)
[2019-11-18] MEDS: CALCITRIOL 0.25 MCG CAP (S0169) PO SCH (08:09)
[2019-11-18] MEDS ORDERED: PANTOPRAZOLE 40MG TAB (PROTONIX) PO SCH (09:00)
[2019-11-18] MEDS: cloNIDine 0.2 MG TAB PO SCH ×2 (09:00→16:41)
[2019-11-18] MEDS ORDERED: LIDOCAINE 1% SDV 5 ML VIAL SQ ONE (10:15)
[2019-11-18] MEDS ORDERED: HEPARIN 1,000 UNITS/ML 10ML VIAL (FOR RADIOLOGY& DIALYSIS ONLY) IV ONE (10:15)
[2019-11-18 13:42] VITALS: BP 121/75
[2019-11-18] MEDS: LOSARTAN 50 MG TAB PO SCH (13:51)
[2019-11-18] MEDS: minoxidiL 2.5 MG TAB PO SCH (13:51)
[2019-11-18] MEDS: amLODIPine 10 MG TAB PO SCH (13:51)
--- NOTE | 2019-11-18 15:36 | IPN ---
DATE OF VISIT: 11/18/2019 Ms. Mireles is seen during hemodialysis this morning. She is sleeping and has been feeling well. Her abdominal pain has improved. No dyspnea, chest pain, fever or chills noticed. On physical exam, temperature 97 degrees Fahrenheit, heart rate 76 per minute and respiratory rate 18 per minute. Blood pressure 115/63 mmHg and oxygen saturation 98% on room air. Head is atraumatic. Neck is supple and without jugular venous distention (JVD) or thyroid enlargement. Heart sounds regular and lungs clear to auscultation. Abdomen soft and nontender and bowel sounds normal. Extremities without any cyanosis or clubbing. Today's labs show WBC count 7.4, hemoglobin 10.1 and hematocrit 31. Sodium 134, potassium 4.1, CO2 of 30, BUN 17 and creatinine 6.94. PROBLEMS: 1. Abdominal pain, most likely related to cystitis and has improved. She should continue with antibiotic for a few more days as an outpatient. 2. End-stage renal disease. Patient is currently being dialyzed and she is tolerating her dialysis treatment very well. 3. Hypertension. Blood pressure has been very well controlled in the hospital on current medications. Unfortunately, she has been noncompliant at home and blood pressure usually runs about 200 mmHg, however with same medications her blood pressure is 120s and 130s here in the hospital. 4. Anemia. Her anemia is stable and does not need any urgent intervention. DISPOSITION: From renal standpoint, patient can be discharged to home today and followup in outpatient dialysis clinic.
[2019-11-18 16:00] VITALS: BP 168/90
[2019-11-18] MEDS ORDERED: PANT40TA3 PO (16:11)
[2019-11-18 16:41] VITALS: BP 168/90
[2019-11-18] MEDS ORDERED: BACT800T5 PO (18:53)
--- NOTE | 2019-11-18 18:58 | DS.PDOC ---
Discharge Summary General Date of Admission Nov 15, 2019 at 00:22 Date of Discharge 11/18/19 Attending Physician: ASHLEY BRYANT MD Discharge Summary PROCEDURES PERFORMED DURING STAY: None. ADMITTING DIAGNOSES: 1. UTI, abdominal pain, hypertensive urgency. DISCHARGE DIAGNOSES: 1. UTI, abdominal pain, hypertensive urgency. COMPLICATIONS/CHIEF COMPLAINT: Esrd;Hypertension;Hypertensive Urgency;. HISTORY OF PRESENT ILLNESS: 34-year-old female with past medical history of end-stage renal disease, hypertension who was admitted for UTI, abdominal pain, hypertensive urgency. She underwent CAT scan of the abdomen pelvis in the ED which showed possible appendicitis, repeat CT with IV contrast ruled out appendicitis. Upon treatment of UTI 48-72 hours her abdominal pain continued to improve and is nearly gone at this time. Her UTI was treated with Bactrim, she will be discharged with Bactrim to complete her antibiotic regimen. Hypertensive urgency was likely due to medication noncompliance, patient was restarted on her home regimen with adequate control of blood pressure within 24 hours. Patient was evaluated by nephrology and underwent dialysis as appropriate. Patient is currently clinically and hemodynamically stable for discharge and outpatient follow-up.. HOSPITAL COURSE: As above. DISCHARGE MEDICATIONS: Please see below. ALLERGIES: Please see below. PHYSICAL EXAMINATION: VITAL SIGNS: Please see below. GENERAL: No distress HEENT: Normocephalic, atraumatic, moist mucous membranes NECK: Supple CARDIOVASCULAR EXAMINATION: S1, S2, no murmurs RESPIRATORY EXAMINATION: Clear to auscultation, no wheezing ABDOMINAL EXAMINATION: Soft, no tenderness, nondistended, positive bowel sounds EXTREMITIES: Right upper extremity AV fistula SKIN: No rash NEUROLOGICAL EXAMINATION: Alert and oriented 3, no focal deficits PSYCHIATRIC EXAMINATION: Calm and cooperative LABORATORY DATA: Please see below. IMAGING: CT abdomen and pelvis negative for acute pathology PROGNOSIS: Guarded ACTIVITY: As tolerated. DIET: Cardiac DISCHARGE PLAN: Follow with PCP and patient account analyst within 1-2 weeks DISPOSITION: 01 Home, Self-Care. DISCHARGE INSTRUCTIONS: 1. As above. DISCHARGE CONDITION: Stable. TIME SPENT ON DISCHARGE: Greater than 27 minutes. Vital Signs/I&Os Vital Signs Date Time Temp Pulse Resp B/P (MAP) Pulse Ox O2 Delivery O2 Flow Rate FiO2 11/18/19 16:41 168/90 11/18/19 16:00 96.9 87 18 100 Room Air I&O- Last 24 Hours up to 6 AM 11/18/19 06:00 Intake Total 1710 ml Output Total 200 ml Balance 1510 ml Laboratory Data Labs 24H Laboratory Tests 2 11/17/19 20:26: Bedside Glucose (Misc Panel) 165H 11/18/19 05:05: Nucleated Red Blood Cells % (auto) 0.0, Anion Gap 8, Glomerular Filtration Rate 8.9L, Calcium Level 7.5L, Phosphorus Level 3.5, Magnesium Level 2.0, Albumin 2.1L 11/18/19 13:36: Bedside Glucose (Misc Panel) 127H 11/18/19 16:43: Bedside Glucose (Misc Panel) 229H CBC/BMP Laboratory Tests 11/18/19 05:05 FSBS Laboratory Tests Test 11/17/19 20:26 11/18/19 13:36 11/18/19 16:43 Range/Units Bedside Glucose (Misc Panel) 165 127 229 70-105 MG/DL Discharge Medications Scheduled Amlodipine Besylate (Amlodipine Besylate) 10 Mg Tab, 10 MG PO DAILY, (Reported) Calcitriol (Calcitriol) 0.25 Mcg Cap, 0.25 MCG PO DAILY, (Reported) Calcium Carbonate (Tums) 300 Mg Tab.chew, 1,500 MG PO DAILY, (Reported) Calcium Carbonate/Vitamin D3 (Calcium 500-Vit D3 400 Tablet) 1 Tab Tab, 1 TAB PO DAILY, (Reported) Clonidine HCl (Clonidine HCl) 0.2 Mg Tablet, 0.2 MG PO TID, (Reported) Ergocalciferol (Vitamin D2) (Vitamin D2) 2,000 Unit Tablet, 50,000 UNIT PO QWEEK, (Reported) FRIDAYS Insulin Glargine,Hum.rec.anlog (Lantus Solostar) 100 Unit/1 Ml Insuln.pen, 20 UNITS SC QHS, (Reported) Lidocaine/Prilocaine (Lidocaine-Prilocaine Cream) 2.5%/2.5% Cream..g., 1 DOSE TOP 3XW, (Reported) Thursday, Thursday and Thursday prior to dialysis: Apply dime size to port area. Do not rub in, cover with saran wrap to protect clothing. Losartan Potassium (Losartan Potassium) 100 Mg Tablet, 100 MG PO DAILY, (Reported) Metoprolol Succinate (Metoprolol Succinate) 200 Mg Tab.er.24h, 200 MG PO QHS, (Reported) Minoxidil (Minoxidil) 2.5 Mg Tablet, 2.5 MG PO BID, (Reported) Pantoprazole Sodium (Pantoprazole Sodium) 40 Mg Tablet.dr, 40 MG PO DAILY Sulfamethoxazole/Trimethoprim (Bactrim Ds Tablet) 1 Each Tablet, 1 TAB PO DAILY Allergies Coded Allergies: latex (Verified Allergy, Unknown, 11/03/19) morphine (Verified Allergy, Unknown, 11/03/19) TAPE (Verified Adverse Reaction, Intermediate, IRRITATES SKIN, 11/03/19) USE PAPER TAPE ONL;Y ASHLEY BRYANT MD Nov 18, 2019 18:58
== END 2019-11-18 18:27 | disposition home or self-care (01) | DRG 689 ==
LOC: M ED 19:48 → M ED INP 11-15 00:22 → ENRESERV 11-15 13:41 → M PCU 11-15 14:27
PROVIDERS: ADMIT Family Medicine; ATTEND Family Medicine
PROC: 5A1D70Z Performance of Urinary Filtration, Intermittent, Less than 6 Hours Per Day (ICD-10-PCS; principal; 2019-11-16)
DX: N39.0 Urinary tract infection, site not specified (principal); N18.6 End stage renal disease; I12.0 Hypertensive chronic kidney disease with stage 5 chronic kidney disease or end stage renal disease; E10.22 Type 1 diabetes mellitus with diabetic chronic kidney disease; I16.0 Hypertensive urgency; D64.9 Anemia, unspecified; E10.319 Type 1 diabetes mellitus with unspecified diabetic retinopathy without macular edema; Z88.5 Allergy status to narcotic agent; Z79.4 Long term (current) use of insulin; Z99.2 Dependence on renal dialysis; Z79.899 Other long term (current) drug therapy; Z91.040 Latex allergy status; Z91.048 Other nonmedicinal substance allergy status; Z91.19 Patient's noncompliance with other medical treatment and regimen; E87.6 Hypokalemia; K21.9 Gastro-esophageal reflux disease without esophagitis

== ENCOUNTER → 2019-11-21 | Outpatient (REF) | payer MEDICARE, MEDICAID ==
[~2019-11-21] MED LIST changes: +BACT800T5 PO; +LIDO2.5C15 TOP; +LOSA100T50 PO; +PANT40TA3 PO; +TUMS750C22 PO
[2019-11-21 10:59] LABS: CHOLESTEROL LEVEL 215 MG/DL (<200); CHOLESTEROL RISK RATIO 6.935 (<5); HDL CHOLESTEROL 31 MG/DL (>40); NON-HDL-C 184 MG/DL; TRIGLYCERIDES LEVEL 747 MG/DL (<150)
[2019-11-21 12:04] LABS: HEMOGLOBIN A1c 10.3 %
[2019-11-21 13:16] LABS: TOTAL 25(OH) VITAMIN D 18.5 NG/ML (30.0-100.0)
== END ==
LOC: M SFHCPLAZ 08:12
PROVIDERS: ATTEND Physician Assistant
DX: E10.22 Type 1 diabetes mellitus with diabetic chronic kidney disease (principal); E78.5 Hyperlipidemia, unspecified; E55.9 Vitamin D deficiency, unspecified
CPT/HCPCS: 36415; 80061; 82306; 83036; 99496; G0463

== ENCOUNTER 2019-11-24 05:53 | Day surgery (SDC) | payer MEDICARE, MEDICAID ==
[~2019-11-24] VITALS: Ht 175.3 cm; Wt 91.6 kg
[~2019-11-24 05:53] MED LIST changes: +D5W/0.2% SODIUM CHLORIDE 1,000 ML IV ONE
[2019-11-24 06:34] LABS: HEMATOCRIT 28.6 % (36.0-47.0); HEMOGLOBIN 9.1 g/dl (12.0-15.5); MEAN CORPUSCULAR HEMOGLOBIN 30.4 pg (27.0-33.0); MEAN CORPUSCULAR HGB CONC 31.8 g/dl (32.0-36.5); MEAN CORPUSCULAR VOLUME 95.7 fl (80.0-96.0); PLATELET COUNT, AUTOMATED 523 10^3/uL (150-450); RED BLOOD COUNT 2.99 10^6/uL (4.00-5.40); WHITE BLOOD COUNT 5.6 10^3/uL (4.0-10.0)
[2019-11-24 06:54] LABS: HCG, SERUM QUALITATIVE NEGATIVE (NEGATIVE)
[2019-11-24] MEDS ORDERED: LIDOCAINE 2% INJ 100 MG/5 ML SDV (FOR ANES.) As Ordered ONE (07:01)
[2019-11-24] MEDS ORDERED: propofoL 200 MG/20 ML VIAL As Ordered ONE (07:01)
[2019-11-24] MEDS ORDERED: ONDANSETRON 4MG/2ML VIAL (J2405) As Ordered ONE (07:01)
[2019-11-24] MEDS ORDERED: dexameTHASONE 4 MG/ML 1ML VIAL (J1100) As Ordered ONE (07:01)
[2019-11-24] MEDS ORDERED: KETOROLAC 60 MG/2 ML VIAL (J1885) As Ordered ONE (07:02)
[2019-11-24] MEDS ORDERED: fentaNYL 100 MCG/2 ML INJECTION (J3010) As Ordered ONE (07:05)
[2019-11-24] MEDS ORDERED: MIDAZOLAM INJ 2 MG/2 ML VIAL (J2250) As Ordered ONE (07:05)
[2019-11-24] MEDS ORDERED: IODINE STRONG SOLN 15 ML BTL As Ordered ONE (07:19)
[2019-11-24] MEDS ORDERED: SILVER NITRATE APPLICATOR As Ordered ONE (07:21)
[2019-11-24] MEDS ORDERED: LIDOCAINE W/EPINEPHRINE 1% 20ML VIAL As Ordered ONE (07:21)
[2019-11-24] MEDS ORDERED: HumaLOG INSULIN (NovoLOG) PER UNIT As Ordered ONE (07:26)
[2019-11-24] MEDS ORDERED: HumaLOG INSULIN (NovoLOG) PER UNIT SC ONE (08:00)
[2019-11-24] MEDS ORDERED: LR 1,000 ML IV SCH ×2 (09:00→10:00)
[2019-11-24] MEDS ORDERED: ONDANSETRON 4MG/2ML VIAL (J2405) IV PRN (09:00)
[2019-11-24] MEDS ORDERED: fentaNYL 100 MCG/2 ML INJECTION (J3010) IV PRN (09:00)
[2019-11-24] MEDS ORDERED: ACETAMINOPHEN 500 MG TAB PO ONE (11:45)
[2019-11-24 15:30] VITALS: BP 108/59
== END 2019-11-24 17:01 | disposition home or self-care (01) ==
LOC: M SDC 05:53
PROVIDERS: ATTEND Obstetrics & Gynecology
DX: N87.1 Moderate cervical dysplasia (principal); I13.10 Hypertensive heart and chronic kidney disease without heart failure, with stage 1 through stage 4 chronic kidney disease, or unspecified chronic kidney disease; E78.5 Hyperlipidemia, unspecified; E11.22 Type 2 diabetes mellitus with diabetic chronic kidney disease; E11.40 Type 2 diabetes mellitus with diabetic neuropathy, unspecified; N18.4 Chronic kidney disease, stage 4 (severe); K31.84 Gastroparesis; R51 Headache; F32.9 Major depressive disorder, single episode, unspecified; N17.8 Other acute kidney failure; Z99.2 Dependence on renal dialysis; Z88.5 Allergy status to narcotic agent; Z88.8 Allergy status to other drugs, medicaments and biological substances; Z91.048 Other nonmedicinal substance allergy status; Z91.040 Latex allergy status; Z79.899 Other long term (current) drug therapy; Z79.4 Long term (current) use of insulin
CPT/HCPCS: 36415; 57522; 84132; 84703; 85027; 86850; 86900; 86901; 88307; J2250; J2405; J3010

== ENCOUNTER → 2019-12-20 | Outpatient (REF) | payer MEDICARE, MEDICAID ==
[~2019-12-20] MED LIST changes: -D5W/0.2% SODIUM CHLORIDE 1,000 ML IV ONE; +NOVOINJ3 SUBQ
== END ==
LOC: M SFHCPLAZ 09:33
PROVIDERS: ATTEND Physician Assistant
DX: R10.13 Epigastric pain (principal); Z53.8 Procedure and treatment not carried out for other reasons
CPT/HCPCS: 36415; G0463

== ENCOUNTER → 2019-12-20 | Outpatient (CLI) | payer MEDICARE, MEDICAID ==
[~2019-12-20] MED LIST changes: -NOVOINJ3 SUBQ
[2019-12-20 13:01] LABS: BASO # 0.1 10^3/uL (0.0-0.2); BASO % 0.4 % (0.0-1.0); EOS # 0.4 10^3/uL (0.0-0.5); EOS % 3.2 % (0.0-3.0); HEMATOCRIT 28.7 % (36.0-47.0); HEMOGLOBIN 9.6 g/dl (12.0-15.5); LYMPH # 2.1 10^3/uL (1.5-5.0); LYMPH % 16.6 % (24.0-44.0); MEAN CORPUSCULAR HEMOGLOBIN 30.7 pg (27.0-33.0); MEAN CORPUSCULAR HGB CONC 33.4 g/dl (32.0-36.5); MEAN CORPUSCULAR VOLUME 91.7 fl (80.0-96.0); MONO # 0.7 10^3/uL (0.0-0.8); MONO % 5.4 % (0.0-5.0); NEUTROPHILS # 9.1 10^3/uL (1.5-8.5); PLATELET COUNT, AUTOMATED 478 10^3/uL (150-450); RED BLOOD COUNT 3.13 10^6/uL (4.00-5.40); WHITE BLOOD COUNT 12.3 10^3/uL (4.0-10.0)
[2019-12-20 13:54] LABS: ALBUMIN 2.6 GM/DL (3.2-5.2); BILIRUBIN,TOTAL 0.6 MG/DL (0.2-1.0); CALCIUM LEVEL 8.5 MG/DL (8.5-10.1); CREATININE FOR GFR 5.83 MG/DL (0.55-1.30); GLOMERULAR FILTRATION RATE 10.8 (>60); POTASSIUM SERUM 3.3 MEQ/L (3.5-5.1)
== END ==
LOC: M LAB 11:52
PROVIDERS: ATTEND Physician Assistant
DX: R10.13 Epigastric pain (principal)

== ENCOUNTER → 2019-12-22 | Outpatient (CLI) | payer MEDICARE, MEDICAID ==
[~2019-12-22] MED LIST changes: +NOVOINJ3 SUBQ
--- NOTE | 2019-12-22 14:21 | REPPI ---
Clinical: Epigastric pain and leukocytosis . Comparison: 11/14/2019 . Technique: PA and lateral. Findings: The mediastinum and cardiac silhouette are normal. The lung menjivar are clear and without acute consolidation, effusion, or pneumothorax. The skeletal structures are intact and normal. Impression: 1. No acute cardiopulmonary process. Electronically Signed by Guy Garcia MD 12/22/2019 02:12 P
== END ==
LOC: M PLAIMG 13:51
PROVIDERS: ATTEND Physician Assistant
DX: R10.13 Epigastric pain (principal); D72.829 Elevated white blood cell count, unspecified

== ENCOUNTER → 2019-12-22 | Outpatient (REF) | payer MEDICARE, MEDICAID ==
[2019-12-22 17:47] LABS: APPEARANCE, URINE CLOUDY (CLEAR); BACTERIA, URINE AUTO 1+ (NEGATIVE); BILIRUBIN, URINE AUTO NEGATIVE (NEGATIVE); BLOOD, URINE BLOOD 3+ (NEGATIVE); COLOR, URINE YELLOW (YELLOW); GLUCOSE, URINE (UA) AUTO 3+ mg/dL (NEGATIVE); KETONE, URINE AUTO NEGATIVE (NEGATIVE); LEUKOCYTE ESTERASE, URINE AUTO TRACE (NEGATIVE); NITRITE, URINE AUTO NEGATIVE (NEGATIVE); PROTEIN, URINE AUTO 2+ mg/dL (NEGATIVE); RBC, URINE AUTO TNTC /HPF (0-3); SPECIFIC GRAVITY URINE AUTO 1.017 (1.002-1.035); SQUAMOUS EPITHELIAL CELL UR AU 9 /HPF (0-6); UROBILINOGEN, URINE AUTO 0.2 mg/dL (0.0-2.0); WBC, URINE AUTO 45 /HPF (0-3)
== END ==
LOC: M SFHCPLAZ 16:46
PROVIDERS: ATTEND Physician Assistant
DX: R10.13 Epigastric pain (principal); D72.829 Elevated white blood cell count, unspecified

== ENCOUNTER 2019-12-23 04:09 | Emergency (ER) | payer MEDICARE, MEDICAID ==
[~2019-12-23] VITALS: Ht 175.3 cm; Wt 85.9 kg
[~2019-12-23 04:09] MED LIST changes: -NOVOINJ3 SUBQ
[2019-12-23] MEDS ORDERED: NOVOINJ3 SUBQ (04:45)
[2019-12-23] MEDS ORDERED: hydrALAZINE INJ 20 MG/ML VIAL IV STA (05:16)
[2019-12-23] MEDS ORDERED: HumuLIN R (REGULAR) INSULIN (NovoLIN R) **100U/ML** PER UNIT IV ONE ×2 (05:30→06:45)
[2019-12-23] MEDS ORDERED: LABETALOL HCL 100 MG/20 ML VIAL IV STA (05:58)
[2019-12-23 06:46] VITALS: BP 189/90
[2019-12-23 08:01] VITALS: BP 167/81
== END 2019-12-23 08:23 | disposition left against medical advice (07) ==
LOC: M ED 04:09
DX: I16.0 Hypertensive urgency (principal); E11.65 Type 2 diabetes mellitus with hyperglycemia; Z91.19 Patient's noncompliance with other medical treatment and regimen; N28.9 Disorder of kidney and ureter, unspecified; F33.9 Major depressive disorder, recurrent, unspecified; Z99.2 Dependence on renal dialysis; Z79.899 Other long term (current) drug therapy; Z79.4 Long term (current) use of insulin; Z88.5 Allergy status to narcotic agent; Z91.040 Latex allergy status; Z91.048 Other nonmedicinal substance allergy status

== ENCOUNTER 2020-11-25 17:01 | Inpatient (IN) | payer MEDICARE, MEDICAID ==
[~2020-11-25] VITALS: Ht 175.3 cm; Wt 90.9 kg
[~2020-11-25 17:01] MED LIST changes: -AMLO10TA5 PO; +AMLO1TAB24 PO; +AMLO1TAB25 PO; -AMLO5TAB6 PO; -FLUO10CA15 PO; +FLUO10CA16 PO; +NOVOINJ3 SUBQ; +PANT40TA29 PO; -PANT40TA3 PO
[2020-11-25] MEDS ORDERED: hydrALAZINE 20MG/ML 1ML VIAL (J0360 PER 20MG) IV STA (18:01)
[2020-11-25 18:32] LABS: VENOUS BASE EXCESS -9.9 (-2.0-2.0); VENOUS HCO3 15.7 MEQ/L (23.0-27.0); VENOUS O2 SATURATION 94.7 % (60.0-80.0); VENOUS PARTIAL PRESSURE CO2 33.4 mmHg (38.0-50.0); VENOUS PARTIAL PRESSURE O2 83.1 mmHg (30.0-50.0); VENOUS PH 7.291 UNITS (7.330-7.430); VENOUS STANDARD HCO3 16.5 MEQ/L; VENOUS TOTAL CO2 16.8 MEQ/L (24.0-28.0)
[2020-11-25 18:41] LABS: BASO % 0.3 % (0.0-1.0); EOS # 0.1 10^3/uL (0.0-0.5); EOS % 0.7 % (0.0-3.0); HEMOGLOBIN 8.6 g/dl (12.0-15.5); LYMPH # 0.6 10^3/uL (1.5-5.0); LYMPH % 4.7 % (24.0-44.0); MEAN CORPUSCULAR HGB CONC 33.1 g/dl (32.0-36.5); MEAN CORPUSCULAR VOLUME 93.9 fl (80.0-96.0); MONO # 0.6 10^3/uL (0.0-0.8); MONO % 4.8 % (0.0-5.0); NEUTROPHILS # 10.9 10^3/uL (1.5-8.5); PLATELET COUNT, AUTOMATED 563 10^3/uL (150-450); RED BLOOD COUNT 2.77 10^6/uL (4.00-5.40); WHITE BLOOD COUNT 12.2 10^3/uL (4.0-10.0)
[2020-11-25] MEDS ORDERED: ONDANSETRON 4MG/2ML VIAL IV ONE (18:45)
[2020-11-25 18:46] LABS: RSV AMPLIFICATION NEGATIVE (NEGATIVE)
--- NOTE | 2020-11-25 19:06 | REPVR ---
PROCEDURE INFORMATION: Exam: XR Chest, 1 View Exam date and time: 11/25/2020 6:31 PM Age: 35 years old Clinical indication: Cough and dyspnea; Additional info: Dyspnea/cough TECHNIQUE: Imaging protocol: XR of the chest Views: 1 view. COMPARISON: CR CHEST 2 VIEWS 12/22/2019 2:01 PM FINDINGS: Tubes, catheters and devices: Right-sided central line terminates at the SVC. Lungs: No consolidation. Pleural space: Unremarkable. No pleural effusion. No pneumothorax. Heart/Mediastinum: Cardiomegaly. Bones/joints: Unremarkable. IMPRESSION: No consolidation. Electronically signed by: Santos Wheeler On 11/25/2020 19:05:44 PM
[2020-11-25 19:27] LABS: ALBUMIN 2.9 GM/DL (3.2-5.2); ALT/SGPT 43 U/L (12-78); BILIRUBIN,TOTAL 1.3 MG/DL (0.2-1.0); BLOOD UREA NITROGEN 82 MG/DL (7-18); CALCIUM LEVEL 9.3 MG/DL (8.5-10.1); CARBON DIOXIDE LEVEL 17 MEQ/L (21-32); CHLORIDE LEVEL 83 MEQ/L (98-107); CK-MB VALUE MASS 10.7 NG/ML (<3.6); CPK CREATINE PHOSPHOKINASE 498 U/L (26-192); GLOMERULAR FILTRATION RATE 4.8 (>60); GLUCOSE, FASTING 908 MG/DL (70-100); MB/CK RELATIVE INDEX 2.15 (< OR =4); POTASSIUM SERUM 6.8 MEQ/L (3.5-5.1); SODIUM LEVEL 117 MEQ/L (136-145); TOTAL PROTEIN 7.4 GM/DL (6.4-8.2); TROPONIN I 0.02 NG/ML (< 0.10)
[2020-11-25] MEDS ORDERED: HumuLIN R (REGULAR) INSULIN (NovoLIN R) **100U/ML** PER UNIT IV ONE (19:30)
[2020-11-25] MEDS ORDERED: CALCIUM GLUCONATE 1,000 MG in D5W MINI-BAG PLUS 100 ML IV ONE (19:30)
[2020-11-25 19:31] LABS: NT-PRO BNP > 175000 PG/ML (<125)
[2020-11-25 19:36] LABS: OSMOLALITY SERUM 329 MOSM/KG (275-295)
[2020-11-25] MEDS ORDERED: INSULIN REGULAR IN 0.9 % NACL 100 UNIT in IV 1 EA IV SCH ×2 (19:50)
--- NOTE | 2020-11-25 19:59 | HPEPDOC ---
[facility] Medical History & Physical Date of Admission Nov 25, 2020 Date of Service: Nov 25, 2020 Attending Physician: MICHAEL GOLD MD History and Physical TIME OF SERVICE: 810pm CHIEF COMPLAINT: dyspnea HISTORY OF PRESENT ILLNESS: This 35 yr old F recently moved back to [facility] from [place] because of worsening of her health while she was in [place]. Today she presented w c/o dyspnea, cough, upper abdominal pain nausea and diarrhea. She usually has dialysis on TTS and had her last session on Nov 20. In the ER was given hydralazine for accelerated HTN, insulin for DKA, and calcium gluconate for hyperkalemia; per , will make arrangements for dialysis tonight. REVIEW OF SYSTEMS: 12-point review of systems negative except as listed in HPI PAST MEDICAL /SURGICAL HISTORY ESRD HD TTS / Right Arm Fistula / Permacath IDDM1 with neuropathy, proliferative retinopathy s/p photocoagulation & hx of DKA Pulm HTN PASP (30-40) Trace MVR Trace AVR Trace TVR Unspecified Brain Surgery for cyst Caesarean Section SOCIAL HISTORY: Tobacco use: Nonsmoker. ETOH: Denies Illicit drug use: Denies FAMILY HISTORY: Mother history of type 2 diabetes , father COPD and hypertension, brother with epilepsy ALLERGIES: Please see below. HOME MEDICATIONS: Please see below. PHYSICAL EXAMINATION: VITAL SIGNS: HR 95, RR 17, O2 100%, T98.2 GENERAL APPEARANCE: appears chronically ill / listless HEENT: EOMI /mask covering lower face /EJ at left neck CARDIOVASCULAR: RRR/ S3 and S4 / + lower extremity edema /permacath at right upper chest LUNGS: CTAB on RA ABDOMEN: soft / she grimaces with palpation of the upper abdomen INTEGUMENT: multiple small hyperpigmented lesions on skin NEUROLOGICAL: speech not dysarthric PSYCHIATRIC: asleep but arousable with vocal stimuli / able to understand and follow commands LABORATORY DATA: 11/25/20 18:02 11/25/20 18:02: Immature Granulocyte % (Auto) 0.5, Neutrophils (%) (Auto) 89.0H, Lymphocytes (%) (Auto) 4.7L, Monocytes (%) (Auto) 4.8, Eosinophils (%) (Auto) 0.7, Basophils (%) (Auto) 0.3, Neutrophils # (Auto) 10.9H, Lymphocytes # (Auto) 0.6L, Monocytes # (Auto) 0.6, Eosinophils # (Auto) 0.1, Basophils # (Auto) 0.0, Nucleated Red Blood Cells % (auto) 0.0, Blood Gas Bicarbonate Standard 16.5, Venous Blood pH 7.291L, Venous Blood Partial Pressure CO2 33.4L, Venous Blood Partial Pressure O2 83.1H, Venous Blood Total Carbon Dioxide 16.8L, Venous Blood HCO3 15.7L, Venous Blood Oxygen Saturation 94.7H, Venous Blood Base Excess -9.9L, Anion Gap 17H, Glomerular Filtration Rate 4.8L, Osmolality 329H, Lactic Acid Level 1.6, Calcium Level 9.3, Total Bilirubin 1.3H, Direct Bilirubin 1.0H, Aspartate Amino Transf (AST/SGOT) 24, Alanine Aminotransferase (ALT/SGPT) 43, Alkaline Phosphatase 534H, Total Creatine Kinase 498H, Creatine Kinase MB 10.7H, Creatine Kinase MB Relative Index 2.15, Troponin I 0.02, YU-New-B-Type Natriuretic Peptide > [id number], Total Protein 7.4, Albumin 2.9L, Albumin/Globulin Ratio 0.6L, Thyroid Stimulating Hormone (TSH) 2.330, Coronavirus (COVID-19)(PCR) NEGATIVE, Influenza Type A (RT-PCR) NEGATIVE, Influenza Type B (RT-PCR) NEGATIVE, Respiratory Syncytial Virus (PCR) NEGATIVE IMAGING: Chest xray IMPRESSION: No consolidation. MICROBIOLOGY: Respiratory panel negative / blood cx pending ASSESSMENT: Ms. Mireles is a 35 yr old w a hx of IDDM1 w neuropathy, retinopathy, Pulm HTN and Essential HTN who is admitted for management of DKA and fluid overload. PLAN: 1. DKA Based on presence of: glucose >250 + pH <7.30 + bicarbonate <18 + serum osmol >320 + AG >12 Possible triggers: noncompliance or infection Plan: admit to ICU /NPO / Insulin drip per protocol/ IVF / f/u blood cx, lipase, c.diff, A1C / f/u accuchecks Q1H, BMP Q4H, venous PH Q4H, osmol Q4H, Mag Q4H, phosphorus Q4H/ hold home anti-glycemic agents pending resolution of DKA 2. Fluid Overload /ESRD Plan: per dialysis tonight / sevelamer 3. HTN Urgency EKG showed a rate of 97 and peaked T waves Plan: dialysis / Lasix 60mg IVx1 /resume home dose of furosemide, nifedpine and metoprolol 4. NN Anemia Plan: f/u Iron studies 5.Obesity complicates care DVT Px w Heparin Dispo: home after 2 midnights stay Laboratory Data CBC/BMP Laboratory Tests 11/25/20 18:02 Home Medications Scheduled Ergocalciferol (Vitamin D2) (Vitamin D2) 50,000 Units Cap, 50,000 UNITS PO QWEEK thursday Furosemide (Lasix) 80 Mg Tablet, 80 MG PO BID Insulin Glargine,Hum.rec.anlog (Lantus Solostar) 100 Unit/1 Ml Insuln.pen, 5 UNITS SC QHS Metoprolol Tartrate (Metoprolol Tartrate) 100 Mg Tablet, 100 MG PO BID Nifedipine (Nifedipine ER) 90 Mg Tablet.er, 90 MG PO DAILY Sevelamer Carbonate (Sevelamer Carbonate) 800 Mg Tablet, 1,600 MG PO WM Sevelamer Carbonate (Sevelamer Carbonate) 800 Mg Tablet, 800 MG PO BID with a snack Miscellaneous Medications [Med Rec Comment] UNABLE TO VERIFY MEDS OR DOSE. PATIENT NEW TO AREA.USED EXTERNAL MED HISTORY. Allergies Coded Allergies: cinacalcet (Verified Allergy, Unknown, 11/25/20) latex (Verified Allergy, Unknown, 11/03/19) morphine (Verified Allergy, Unknown, 11/03/19) peanut (Verified Allergy, Unknown, 11/25/20) TAPE (Verified Adverse Reaction, Intermediate, IRRITATES SKIN, 11/03/19) USE PAPER TAPE ONL;Y A-FIB/CHADSVASC A-FIB History Current/History of A-Fib/PAF?: No Current PO Anticoag Therapy: No MICHAEL GOLD MD Nov 25, 2020 19:59
[2020-11-25] MEDS ORDERED: MOM 30ML SUSPENSION UDC PO PRN (20:00)
[2020-11-25] MEDS ORDERED: NS 1,000 ML IV ONE (20:00)
[2020-11-25] MEDS ORDERED: MAALOX 30 ML SUSP *UDC PO PRN (20:00)
[2020-11-25] MEDS ORDERED: INSULIN IV RATE CHANGE DOCUMENTATION ML/HR XX SCH (20:00)
[2020-11-25] MEDS ORDERED: HEPARIN SOD (PORCINE) 5000UNITS/ML 1ML VIAL/SYRINGE SC SCH (20:00)
[2020-11-25 20:02] LABS: ACETONE/KETONE 2.32 MG/DL (<2.81)
--- NOTE | 2020-11-25 20:10 | ECGEPIP ---
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
[2020-11-25 21:51] LABS: VENOUS BASE EXCESS -6.3 (-2.0-2.0); VENOUS HCO3 18.1 MEQ/L (23.0-27.0); VENOUS O2 SATURATION 82.8 % (60.0-80.0); VENOUS PARTIAL PRESSURE CO2 32.1 mmHg (38.0-50.0); VENOUS PARTIAL PRESSURE O2 53.3 mmHg (30.0-50.0); VENOUS TOTAL CO2 19.1 MEQ/L (24.0-28.0)
[2020-11-25] MEDS ORDERED: HEPARIN SOD (PORCINE) 5000UNITS/ML 1ML VIAL/SYRINGE SQ SCH (22:00)
[2020-11-25] MEDS ORDERED: FUROSEMIDE 100MG/10ML VIAL (J1940) IV ONE (22:00)
[2020-11-25 22:10] LABS: HEMOGLOBIN A1c 10.2 %
[2020-11-25 22:34] LABS: CALCIUM LEVEL 9.6 MG/DL (8.5-10.1); CREATININE FOR GFR 8.87 MG/DL (0.55-1.30); GLOMERULAR FILTRATION RATE 6.6 (>60); PERCENT SATURATION 9.1 % (13.2-45.0); PHOSPHORUS LEVEL 6.3 MG/DL (2.5-4.9); POTASSIUM SERUM 4.9 MEQ/L (3.5-5.1)
[2020-11-25] MEDS ORDERED: SEVE800T3 PO ×2 (22:38)
[2020-11-25] MEDS ORDERED: VITA50005 PO (22:39)
[2020-11-25] MEDS ORDERED: PANT-23 PO (22:41)
[2020-11-25] MEDS ORDERED: METO100T5 PO (22:42)
[2020-11-25] MEDS ORDERED: NIFE90TA20 PO (22:43)
[2020-11-25] MEDS ORDERED: LASI80TA3 PO (22:43)
[2020-11-26] VITALS (24 sets, daily range): BP systolic 107–249; BP diastolic 59–157
[2020-11-26] MEDS ORDERED: MED REC COMMENT (00:25)
[2020-11-26] MEDS ORDERED: NS 1,000 ML IV SCH (00:30)
[2020-11-26 00:31] LABS: VENOUS BASE EXCESS 3.4 (-2.0-2.0); VENOUS O2 SATURATION 99.3 % (60.0-80.0); VENOUS PARTIAL PRESSURE CO2 32.1 mmHg (38.0-50.0); VENOUS PARTIAL PRESSURE O2 134.7 mmHg (30.0-50.0); VENOUS PH 7.526 UNITS (7.330-7.430); VENOUS STANDARD HCO3 27.6 MEQ/L
[2020-11-26] MEDS: ACETAMINOPHEN TAB 650MG DOSE (2X325MG) PO PRN ×3 (00:36→21:11)
[2020-11-26] MEDS ORDERED: DEXTROSE 50% 50 ML SYRINGE IV PRN (00:45)
[2020-11-26] MEDS ORDERED: GLUCAGON INJ 1MG VIAL SC PRN (00:45)
[2020-11-26] MEDS ORDERED: GLUCOSE 4GM CHEW TABLET PO PRN (00:45)
[2020-11-26] MEDS: HumaLOG INSULIN (NovoLOG) PER UNIT SC SCH ×4 (01:13→17:47)
[2020-11-26 01:18] LABS: CALCIUM LEVEL 9.4 MG/DL (8.5-10.1); CREATININE FOR GFR 6.66 MG/DL (0.55-1.30); GLOMERULAR FILTRATION RATE 9.2 (>60); PHOSPHORUS LEVEL 4.9 MG/DL (2.5-4.9); POTASSIUM SERUM 4.3 MEQ/L (3.5-5.1)
[2020-11-26] MEDS ORDERED: LEVEMIR (INSULIN DETEMIR) 1 UNITS/0.01ML SC ONE (02:00)
[2020-11-26 05:03] LABS: BLOOD UREA NITROGEN 42 MG/DL (7-18); CALCIUM LEVEL 8.9 MG/DL (8.5-10.1); CARBON DIOXIDE LEVEL 24 MEQ/L (21-32); CHLORIDE LEVEL 96 MEQ/L (98-107); GLOMERULAR FILTRATION RATE 8.2 (>60); GLUCOSE, FASTING 193 MG/DL (70-100); POTASSIUM SERUM 4.1 MEQ/L (3.5-5.1); SODIUM LEVEL 133 MEQ/L (136-145)
[2020-11-26 05:11] LABS: BASO # 0.1 10^3/uL (0.0-0.2); BASO % 0.4 % (0.0-1.0); EOS # 0.2 10^3/uL (0.0-0.5); EOS % 1.7 % (0.0-3.0); HEMATOCRIT 23.6 % (36.0-47.0); HEMOGLOBIN 7.9 g/dl (12.0-15.5); LYMPH # 1.2 10^3/uL (1.5-5.0); LYMPH % 10.3 % (24.0-44.0); MEAN CORPUSCULAR HEMOGLOBIN 30.4 pg (27.0-33.0); MEAN CORPUSCULAR HGB CONC 33.5 g/dl (32.0-36.5); MEAN CORPUSCULAR VOLUME 90.8 fl (80.0-96.0); MONO # 0.9 10^3/uL (0.0-0.8); MONO % 7.4 % (0.0-5.0); NEUTROPHILS # 9.1 10^3/uL (1.5-8.5); NEUTROPHILS % 79.6 % (36.0-66.0); PLATELET COUNT, AUTOMATED 530 10^3/uL (150-450); WHITE BLOOD COUNT 11.4 10^3/uL (4.0-10.0)
[2020-11-26] MEDS: METOPROLOL TARTRATE 100 MG TAB PO SCH ×2 (08:16→20:56)
[2020-11-26] MEDS: FUROSEMIDE 80 MG TAB PO SCH ×2 (08:17→20:56)
[2020-11-26] MEDS: HEPARIN SOD (PORCINE) 5000UNITS/ML 1ML VIAL/SYRINGE SC SCH ×2 (08:17→17:47)
[2020-11-26] MEDS: NIFEdipine 30 MG XL TAB PO SCH (08:17)
[2020-11-26] MEDS: (RENVELA) SEVELAMER **CARBONate** 800 MG TAB PO SCH ×3 (08:54→17:47)
[2020-11-26] MEDS ORDERED: (RENVELA) SEVELAMER **CARBONate** 800 MG TAB PO SCH (09:00)
[2020-11-26] MEDS: hydrALAZINE 20MG/ML 1ML VIAL (J0360 PER 20MG) IV SCH ×2 (09:26→17:51)
[2020-11-26 10:38] LABS: FOLATE 8.3 NG/ML (>5.4)
--- NOTE | 2020-11-26 11:59 | IPNPDOC ---
Text Note Date of Service The patient was seen on 11/26/20. NOTE Subjective: Patient is a 35-year-old female with a PMHx ESRD on HD (TTS), HTN, Pulmonary HTN, IDDM2, Neuropathy, Proliferative Retinopathy, who presented from [place] and is establishing care in [facility]. P presented to the emergency room laying of shortness of breath, upper abdominal pain and diarrhea. Patient was imaged the hospital service for further evaluation and treatment. Patient has reported that she has been noncompliant with her insulin that she h as not brought any during her travel. Her last hemodialysis session was on 11/20 and his missed 2 dialysis sessions since that point. Patient was seen and examined at the bedside. Currently patient denies any nausea, vomiting, chest pain, shortness of breath, palpitations, abdominal pain or diarrhea. Patient denies any urinary discomfort. Objective: Vitals (See below) General: Lying in bed, appears comfortable, AAOx3 HEENT: NC, AT CVS: RRR, +S1S2 Lungs: Fair air entry b/l, -w/r/r Abdomen: Soft, ND, NT Extremities: - Edema, - Calf tenderness Assessment and plan: IDDM1 with hyperglycemia - s/p DKA - likely 2/2 non-compliance; patient reported that during her travel she didn't take any insulin with her - Anion gap and bicarbonate have normalized - Glucose levels appear to be better controlled - s/p insulin drip - A1c of 10.2; suggesting poor compliance with insulin - c/w ISS and Levemir Leukocytosis - likely 2/2 reactive etiology - Review of systems is negative for any source of infection - Hemodynamically stable and afebrile - Will hold off on antibiotics Fluid overload - likely 2/2 ESRD on HD (TTS) - likely 2/2 non-compliance with dialysis - Patient reports that her last dialysis session was on 11/20 - Patient has received emergent dialysis yesterday 11/25 - Nephrology on consultation Hyponatremia - Initially 2/2 pseudohyponatremia; now possibly 2/2 component of hypervolemia - Will c/w Dialysis as scheduled HTN Urgency - BP still remains elevated - Will continue with antihypertensive medications; metoprolol, nifedipine and Furosemide - Will start Hydralazine IV - Will continue with dialysis Normocytic anemia - likely 2/2 ESRD / AOCD Obesity - BMI of 28.6 - Complicating medical care DVT prophylaxis - c/w Heparin Disposition: - Anticipate discharge within 24-48 hours VS,Kiana, I+O VS, Noele, I+O Laboratory Tests 11/25/20 18:02 11/25/20 21:43 11/26/20 00:26 11/26/20 04:21 Vital Signs Date Time Temp Pulse Resp B/P (MAP) Pulse Ox O2 Delivery O2 Flow Rate FiO2 11/26/20 10:30 79 170/87 (114) 96 Room Air 11/26/20 10:00 20 11/26/20 08:00 98.5 11/25/20 18:10 18.0 I&O- Last 24 Hours up to 6 AM 11/26/20 05:59 Intake Total 350 ml Output Total 4200 ml Balance -3850 ml JOSE A CONCEPCION MD Nov 26, 2020 11:59
[2020-11-26] MEDS ORDERED: IRON SUCROSE 100MG 5ML VIAL (J1756 PER 1MG) IV STA (12:39)
--- NOTE | 2020-11-26 13:13 | IPN ---
NEPHROLOGY PROGRESS NOTE DATE: 11/26/20 SUBJECTIVE: Ms. Mireles is seen this morning on her bedside. She is feeling much better and currently sitting in the bed eating her breakfast. She was admitted last evening with shortness of breath and uncontrolled hypertension. Her blood pressure was 240/140 mmHg on arrival to the Emergency Room. She also had hyperkalemia with a potassium level of 6.9 and hyperglycemia with a glucose of 908. This is all related to noncompliance with medications and dialysis. She had an emergency dialysis last night and removed 4 liters of fluid. This has helped to improve her shortness of breath, hypertension and corrected her hyperkalemia. She denies any dyspnea, headache, chest pain, nausea or vomiting this morning. PHYSICAL EXAMINATION: Temperature 98 degrees Fahrenheit, heart rate 80 per minute and respiratory rate 20 per minute. Blood pressure down to 170/87 mmHg and oxygen saturation 96% on room air. Head: Atraumatic. Neck: Supple and JVD not abnormally elevated at present. Heart: Sounds are regular with a systolic murmur grade 2/6. Lungs: Clear to auscultation. Abdomen: Obese, soft and nontender and bowel sounds are present. Extremities: Without any cyanosis or clubbing. Lower extremity edema is at least 1+ Chest: She has a Permacath on her right upper chest. Neurologically: She is awake, alert and oriented times 3. LABORATORY DATA: Today's labs show WBC count 11.4, hemoglobin 7.9, hematocrit 23.6 and platelets 530. Sodium 133, potassium 4.1, CO2 24, BUN 42, creatinine 7.4, glucose is down to 193 and calcium 8.9. PROBLEMS/PLAN: 1. Shortness of breath: She had severe hypovolemia related to noncompliance with dialysis. She was dialyzed last evening and we will plan another dialysis for tomorrow morning. I feel that at present there is no emergent need for dialysis today. 2. Hyperkalemia: This has completely corrected with dialysis and she should remain on a low potassium diet now. 3. Hyponatremia: She had pseudo hyponatremia related to uncontrolled diabetes. Her sodium level has improved appropriately. Now her hyperglycemia has also resolved and volume status has improved. No further intervention is needed. 4. Uncontrolled hypertension: Blood pressure has improved significantly since admission. I would recommend to continue all her home medications which she was not taking at all. She reports no medication for the last 1 week. 5. Anemia: Her anemia did get worse. Her iron is slightly low and ferritin is high. She will get intravenous iron during dialysis. I will hold off on Aranesp due to uncontrolled hypertension. 6. Uncontrolled diabetes related to noncompliance with dietary restrictions and lack of insulin: Her diabetes has improved significantly since admission. 7. Disposition: I feel that patient can be transferred to either PCU or a regular medical floor.
--- NOTE | 2020-11-26 13:44 | CR ---
NEPHROLOGY CONSULTATION DATE: 11/25/2020 REFERRING PHYSICIAN: MICHAEL GOLD MD REASON FOR CONSULTATION: Shortness of breath, severe hyperkalemia and uncontrolled hypertension. HISTORY OF PRESENT ILLNESS: This 35-year-old female has a known history of longstanding diabetes, hypertension and endstage renal disease. She has been chronically noncompliant with her medications, dietary restrictions and dialysis treatments. She lived in the [facility] for a while and then moved to [place] several months ago. She has been on maintenance hemolysis but in the past she has been quite noncompliant. Apparently, she had dialysis several days ago and then she traveled to [place] from [place] via bus and from [place] to [place], came by air yesterday. She presented to the Emergency Room today with shortness of breath and was found to have a blood pressure of 240/140 mmHg on admission. She was very weak and edematous. She was noticed to have severe hyperkalemia with a potassium level of 6.8 and hyperglycemia with blood glucose of 908. She apparently has not been taking her medications and she has also missed her dialysis treatments twice just last week. Nephrology consultation was requested for urgent dialysis and the patient is seen this evening. PAST MEDICAL HISTORY AND SURGICAL HISTORY: Significant for: 1. Longstanding diabetes complicated with neuropathy, retinopathy and nephropathy. 2. Uncontrolled hypertension, usually noncompliant with medications. 3. Endstage renal disease. 4. Pulmonary hypertension. 5. History of brain cyst removal. 6. History of . 7. History of anemia. 8. Noncompliance with medications, dialysis treatments and general care. PERSONAL AND SOCIAL HISTORY: The patient lives in [place] currently and she just came to [place] yesterday. Her sister is in [place]. The patient herself is not able to provide much information at present. She denies any alcohol, drug or tobacco use. FAMILY HISTORY: Mother with diabetes and she is . Father has COPD and hypertension and brother with __. HOME MEDICATIONS: 1. Amlodipine 10 mg daily. 2. Calcitriol 0.25 mcg three times a week. 3. Calcium carbonate 300 mg three tablets t.i.d. with meals. 4. Clonidine 0.2 mg t.i.d. 5. Vitamin D 2000 units daily. 6. Novolog insulin per sliding scale. 7. Lantus insulin 20 units daily. 8. Losartan 100 mg daily. 9. Metoprolol 200 mg daily. 10.Minoxidil 2.5 mg b.i.d. 11.Protonix 40 mg daily. ALLERGIES: She has an allergy to morphine, latex, Cinacalcet, tape and peanuts. REVIEW OF SYSTEMS: The patient is somewhat sleepy and tired. She is not able to provide much information, however she was able to answer simple questions by saying yes or no. No fever or chills reported. She has been noncompliant and has missed two dialysis treatments this week. Her blood pressure was 240/140 mmHg on arrival to the Emergency Room. She has a mild hearing deficit. Nose and throat are reported unremarkable. Cardiovascular system: Significant for uncontrolled hypertension, pulmonary hypertension, chronic peripheral edema and noncompliance with medications. Respiratory system is significant for COPD or asthma. GI system is negative for vomiting or diarrhea. system: Negative for dysuria or hematuria. Musculoskeletal system: Significant for leg edema. Endocrine systems: Significant for uncontrolled diabetes and secondary hyperparathyroidism. Psychosocial: Poor family support and noncompliance. Neurologic: Significant for prior brain cyst removal. PHYSICAL EXAMINATION: VITAL SIGNS: Currently 232/128 mmHg and heart rate is about 80 per minute. Temperature 98.2 degrees Fahrenheit and respiratory rate 18 per minute. HEENT: Her face is edematous. NECK: Neck veins are mildly distended. She has an IV line in her left external jugular vein. HEART: Heart sounds are regular with a systolic murmur, Grade 2/6, there is no pericardial friction rub. LUNGS: Diminished breath sounds and bilateral rales. ABDOMEN: Soft and nontender. Bowel sounds are present. EXTREMITIES: Without any cyanosis or clubbing. She has 2+ edema on lower extremities. On right upper chest she has a hemodialysis catheter which is currently being used for dialysis. LABORATORY DATA: WBC count 12.2, hemoglobin 8.6 and hematocrit 26, platelets 563,000. Sodium 117, potassium is 6.8, chloride 83, CO2 17, BUN 82 and creatinine 11.8, glucose is 908. Osmolality is 329. Calcium level was 9.3 and lactic acid was 1.6. A BNP level was greater than 175,000. TSH level was 2.33. Venous blood gas showed a pH of 7.29, pCO2 33.4 and pO2 of 83. Bicarbonate was 16. PROBLEMS: 1. Shortness of breath. Patient is grossly volume overloaded. She has been chronically noncompliant with dialysis treatment and has missed two dialysis treatments already this week. I have already arranged for emergency hemodialysis and in fact she is being dialyzed already. Will remove about 4 liters of fluid tonight and see how she does. She will need further dialysis treatments and will try to get her dialysis again on Thursday. 2. Uncontrolled hypertension. Her blood pressure is quite high, most likely she has not been taking her medications. I would recommend to resume all her chronic home medications. 3. Hyponatremia. She has pseudohyponatremia due to severe hyperglycemia and likely to improve with improvement in her hyperglycemia and also it will improve with correction of her volume status. 4. Hyperkalemia, this is again related to noncompliance in the setting of endstage renal disease. This will be corrected with dialysis tonight. Her electrolytes should be repeated tomorrow morning. 5. Anemia. She has anemia of chronic kidney disease and volume overload. No urgent intervention is recommended. We will recheck her CBC after correction of her volume status. 6. Endstage renal disease. Patient was dialyzed in [place]. She has traveled to [place] and we are dialyzing her tonight. We will try to find out what her plans are once she is able to have a conversation. Thank you for involving me in the care of Ms. Mireles. I will follow her along with you.
[2020-11-26 15:42] LABS: HCG, SERUM QUANTITATIVE < 1.0 MIU/ML
[2020-11-26] MEDS ORDERED: LEVEMIR (INSULIN DETEMIR) 1 UNITS/0.01ML SC SCH (21:00)
[2020-11-27] VITALS: BP 133/63
[2020-11-27] MEDS: HEPARIN SOD (PORCINE) 5000UNITS/ML 1ML VIAL/SYRINGE SC SCH ×3 (00:35→17:32)
[2020-11-27] MEDS: HumaLOG INSULIN (NovoLOG) PER UNIT SC SCH ×4 (00:35→17:31)
[2020-11-27] MEDS: hydrALAZINE 20MG/ML 1ML VIAL (J0360 PER 20MG) IV SCH ×4 (02:00→17:38)
[2020-11-27 04:00] VITALS: BP 137/80
[2020-11-27] MEDS: ACETAMINOPHEN TAB 650MG DOSE (2X325MG) PO PRN ×2 (04:33→09:52)
[2020-11-27 06:15] LABS: HEMATOCRIT 22.3 % (36.0-47.0); HEMOGLOBIN 7.3 g/dl (12.0-15.5); MEAN CORPUSCULAR HEMOGLOBIN 30.9 pg (27.0-33.0); MEAN CORPUSCULAR HGB CONC 32.7 g/dl (32.0-36.5); MEAN CORPUSCULAR VOLUME 94.5 fl (80.0-96.0); PLATELET COUNT, AUTOMATED 503 10^3/uL (150-450); RED BLOOD COUNT 2.36 10^6/uL (4.00-5.40); WHITE BLOOD COUNT 11.2 10^3/uL (4.0-10.0)
[2020-11-27 06:48] LABS: CREATININE FOR GFR 8.73 MG/DL (0.55-1.30)
[2020-11-27 06:49] LABS: CALCIUM LEVEL 8.1 MG/DL (8.5-10.1); GLOMERULAR FILTRATION RATE 6.8 (>60); POTASSIUM SERUM 5.1 MEQ/L (3.5-5.1)
[2020-11-27 08:00] VITALS: BP 134/79
[2020-11-27] MEDS ORDERED: IRON SUCROSE 100MG 5ML VIAL (J1756 PER 1MG) IV SCH (08:00)
[2020-11-27] MEDS ORDERED: DARBEPOETIN 100 MCG/0.5 ML *DIALYSIS* SYRINGE (J0882) IV SCH (08:00)
[2020-11-27] MEDS: (RENVELA) SEVELAMER **CARBONate** 800 MG TAB PO SCH ×3 (08:36→17:31)
[2020-11-27] MEDS ORDERED: INSUHUMDS SC (11:25)
[2020-11-27] MEDS ORDERED: BLOOKIT21 XX (11:25)
[2020-11-27] MEDS ORDERED: GLUC1TES2 XX (11:25)
[2020-11-27] MEDS ORDERED: LANC30MI XX (11:25)
[2020-11-27] MEDS ORDERED: INSU1MIS20 SC (11:25)
[2020-11-27] MEDS ORDERED: ALCOPAD25 TOP (11:25)
--- NOTE | 2020-11-27 13:00 | DS.PDOC ---
Discharge Summary General Date of Admission Nov 25, 2020 at 19:50 Date of Discharge 11/27/2020 Discharge Summary PROCEDURES PERFORMED DURING STAY: [None]. ADMITTING DIAGNOSES / DISCHARGE DIAGNOSES: IDDM1 with hyperglycemia Leukocytosis - likely 2/2 reactive etiology s/p Fluid overload - likely 2/2 ESRD on HD (TTS) - likely 2/2 non-compliance with dialysis Hyponatremia s/p HTN Urgency Normocytic anemia Obesity DVT prophylaxis COMPLICATIONS/CHIEF COMPLAINT: Shortness of breath / Fluid overload / Elevated glucose HISTORY OF PRESENT ILLNESS: Patient is a 35-year-old female with a PMHx ESRD on HD (TTS), HTN, Pulmonary HTN, IDDM2, Neuropathy, Proliferative Retinopathy, who presented from [place] and is establishing care in [facility]. P presented to the emergency room laying of shortness of breath, upper abdominal pain and diarrhea. Patient was imaged the hospital service for further evaluation and treatment. Patient has reported that she has been noncompliant with her insulin that she has not brought any during her travel. Her last hemodialysis session was on 11/20 and his missed 2 dialysis sessions since that point. HOSPITAL COURSE: IDDM1 with hyperglycemia - s/p DKA - likely 2/2 non-compliance; patient reported that during her travel she didn't take any insulin with her - Anion gap and bicarbonate have normalized - Glucose levels improved - s/p insulin drip - A1c of 10.2; suggesting poor compliance with insulin - c/w ISS and Levemir - Will provide glucometer short acting insulin based on inpatient sliding scale - Will have outpatient follow-up with primary care provider and endocrinology within the next 7 days Leukocytosis - likely 2/2 reactive etiology - Review of systems is negative for any source of infection - Hemodynamically stable and afebrile - Will continue to hold off on antibiotics s/p Fluid overload - likely 2/2 ESRD on HD (TTS) - likely 2/2 non-compliance with dialysis - Patient is saturating well on room air - Patient reports that her last dialysis session was on 11/20 - Patient has received emergent dialysis on 11/25 and will be dialyzed again today prior to discharge - Nephrology on consultation; appreciate their input - Patient has an outpatient dialysis chair established for Thursday, Thursday and Thursday Hyponatremia - Initially 2/2 pseudohyponatremia; now possibly 2/2 component of hypervolemia - c/w Dialysis as scheduled s/p HTN Urgency - BP still remains elevated - c/w metoprolol, nifedipine and Furosemide - Will DC Hydralazine IV - Will continue with dialysis - Patient has been advised to remain complaint with treatment plan and medi cations Normocytic anemia - likely 2/2 ESRD / AOCD Obesity - BMI of 28.6 - Complicating medical care DVT prophylaxis - c/w Heparin DISCHARGE MEDICATIONS: Please see below. ALLERGIES: Please see below. PHYSICAL EXAMINATION ON DISCHARGE: Vitals (See below) General: Patient sitting up in bed, appears to be comfortable, is awake, alert and oriented times HEENT: NC, AT CVS: RRR, +S1S2 Lungs: Fair air entry b/l, no appreciable wheezing, rhonchi or rales Abdomen: Soft, nondistended, nontender Extremities: Lower extremity edema is trace, - Calf tenderness LABORATORY DATA: Please see below. ACTIVITY: [As tolerated]. DISCHARGE PLAN: Follow-up with primary care provider nephrology and endocrinology within the next 7 days Remain compliant with treatment plan and medications Return to the ER if you experience any problems DISPOSITION: Home DISCHARGE CONDITION: [Stable]. TIME SPENT ON DISCHARGE: 35 minutes. Vital Signs/I&Os Vital Signs Date Time Temp Pulse Resp B/P (MAP) Pulse Ox O2 Delivery O2 Flow Rate FiO2 11/27/20 08:00 98.7 74 18 134/79 (97) 98 Room Air 11/25/20 18:10 18.0 I&O- Last 24 Hours up to 6 AM 11/27/20 05:59 Intake Total 690 ml Output Total 0 ml Balance 690 ml Laboratory Data Labs 24H Laboratory Tests 2 11/26/20 17:36: Bedside Glucose (Misc Panel) 282H 11/26/20 21:02: Bedside Glucose (Misc Panel) 210H 11/27/20 00:27: Bedside Glucose (Misc Panel) 299H 11/27/20 06:03: Nucleated Red Blood Cells % (auto) 0.0, Anion Gap 10, Glomerular Filtration Rate 6.8L, Calcium Level 8.1L CBC/BMP Laboratory Tests 11/27/20 06:03 FSBS Laboratory Tests Test 11/26/20 17:36 11/26/20 21:02 11/27/20 00:27 Range/Units Bedside Glucose (Misc Panel) 282 210 299 70-105 MG/DL Microbiology Microbiology 11/26/20 Blood Culture - Preliminary, Resulted No growth after 24 hours . All specim... Discharge Medications Scheduled Blood Sugar Diagnostic (Advanced Glucose Test Strips) 1 Each Strip, 1 STRIP XX ASDIRECTED IDDM1 To check glucose 4 times daily Ergocalciferol (Vitamin D2) (Vitamin D2) 50,000 Units Cap, 50,000 UNITS PO QWEEK, (Reported) thursday Furosemide (Lasix) 80 Mg Tablet, 80 MG PO BID, (Reported) Insulin Glargine,Hum.rec.anlog (Lantus Solostar) 100 Unit/1 Ml Insuln.pen, 5 UNITS SC QHS, (Reported) Insulin Human Lispro (Humalog) 100 Unit/1 Ml Vial, 0 UNITS SC ACHS 1 month supply Use AC and HS sliding scale from [facility] Metoprolol Tartrate (Metoprolol Tartrate) 100 Mg Tablet, 100 MG PO BID, (Reported) Nifedipine (Nifedipine ER) 90 Mg Tablet.er, 90 MG PO DAILY, (Reported) Sevelamer Carbonate (Sevelamer Carbonate) 800 Mg Tablet, 1,600 MG PO WM, (Reported) Sevelamer Carbonate (Sevelamer Carbonate) 800 Mg Tablet, 800 MG PO BID, (R eported) with a snack Allergies Coded Allergies: cinacalcet (Verified Allergy, Unknown, 11/25/20) latex (Verified Allergy, Unknown, 11/03/19) morphine (Verified Allergy, Unknown, 11/03/19) peanut (Verified Allergy, Unknown, 11/25/20) TAPE (Verified Adverse Reaction, Intermediate, IRRITATES SKIN, 11/03/19) USE PAPER TAPE ONL;JOSE A BRADFORD MD Nov 27, 2020 13:00
[2020-11-27 13:44] VITALS: BP 152/72
[2020-11-27] MEDS: METOPROLOL TARTRATE 100 MG TAB PO SCH (13:51)
[2020-11-27] MEDS: FUROSEMIDE 80 MG TAB PO SCH (13:51)
[2020-11-27] MEDS: NIFEdipine 30 MG XL TAB PO SCH (14:00)
[2020-11-27] MEDS ORDERED: VITA50005 PO (16:39)
[2020-11-27] MEDS ORDERED: SEVE800T3 PO (16:39)
[2020-11-27] MEDS ORDERED: NIFE90TA20 PO (16:39)
[2020-11-27] MEDS ORDERED: METO100T5 PO (16:39)
[2020-11-27] MEDS ORDERED: LANTINJ4 SC (16:39)
[2020-11-27] MEDS ORDERED: LASI80TA3 PO (16:39)
[2020-11-27] MEDS ORDERED: NOVOINJ3 SC (16:39)
[2020-11-27 17:38] VITALS: BP 152/72
--- NOTE | 2020-11-27 19:34 | IPN ---
PROGRESS NOTE DATE: 11/27/2020 SUBJECTIVE: Ms. Mireles is seen this morning during hemodialysis. She looks quite comfortable and is resting. Her blood pressure has improved and dyspnea has also improved. Four liters of fluid were removed on Thursday evening when she was dialyzed in emergency. Her blood pressure medications have been adjusted. She is eating well and there is no nausea or vomiting reported. Her dyspnea has improved and oxygen saturation is 100% on room air. PHYSICAL EXAMINATION: VITALS: Temperature 98.7 degrees Fahrenheit, heart rate 74 per minute, respiratory rate 18 per minute, blood pressure 134/79 mmHg and oxygen saturation 98% on room air. HEENT: Head atraumatic. Neck supple. JVD not abnormally elevated. HEART: Sounds are regular with a systolic murmur grade 2/6 and without a pericardial friction rub. LUNGS: Clear to auscultation. ABDOMEN: Soft and nontender. Bowel sounds are normal. EXTREMITIES: Without any cyanosis or clubbing. Right upper chest Permacath is intact. NEUROLOGIC: She is awake and at her baseline mentation, without a focal deficit. LABORATORY DATA: Today's labs show WBC count 11.2, hemoglobin 7.3, hematocrit 22.3 and platelets 503,000. Sodium 130, potassium 5.1, CO2 24, BUN 58 and creatinine 8.7. Glucose 90 and calcium 8.1. PROBLEMS: 1. Uncontrolled hypertension: Patient was admitted with blood pressure of 240/140 mmHg. She was noncompliant with her medications and also had significant volume overload. Now her medications have been resumed and volume has improved. Blood pressure is much better now and she will continue with current antihypertensive medications. 2. Shortness of breath: Volume status also improved with 4 liters fluid removal on Thursday evening with dialysis. We are trying to remove another 3 to 3.5 liters today. She is tolerating it well so far. 3. End-stage renal disease: Patient has missed several dialysis treatments and she was volume overloaded. She did receive her dialysis on Thursday evening and is being dialyzed again today. She already has outpatient dialysis slot as she has decided to stay in this area with her sister. Once she is medically stable, then she can probably be discharged to home and resume her outpatient hemodialysis. 4. Anemia: Her anemia is worsening and will need close monitoring. She does have iron deficiency and I am going to start her on Venofer 100 mg with each dialysis. We will also give her Aranesp 100 mcg today and she will also continue with treatment as an outpatient. Her CBC will be checked tomorrow and we will continue to transfuse her 1 unit of packed RBC's before she gets discharged if her anemia is not improved. 5. Uncontrolled diabetes: Her blood sugar was 908 on admission. She was not taking any insulin and her diabetes has also improved with resumption of insulin therapy.
== END 2020-11-27 19:02 | disposition home or self-care (01) | DRG 637 ==
LOC: M ED 17:01 → M ED INP 19:50 → M PCU 11-26 00:01
PROVIDERS: ADMIT Internal Medicine; ATTEND Internal Medicine
PROC: 6A601ZZ Phototherapy of Skin, Multiple (ICD-10-PCS; principal; 2020-11-26)
DX: E10.10 Type 1 diabetes mellitus with ketoacidosis without coma (principal); N18.6 End stage renal disease; E87.1 Hypo-osmolality and hyponatremia; N25.81 Secondary hyperparathyroidism of renal origin; E10.65 Type 1 diabetes mellitus with hyperglycemia; E10.22 Type 1 diabetes mellitus with diabetic chronic kidney disease; E10.42 Type 1 diabetes mellitus with diabetic polyneuropathy; I27.20 Pulmonary hypertension, unspecified; Z99.2 Dependence on renal dialysis; E87.5 Hyperkalemia; E10.319 Type 1 diabetes mellitus with unspecified diabetic retinopathy without macular edema; E87.70 Fluid overload, unspecified; I16.0 Hypertensive urgency; D63.1 Anemia in chronic kidney disease; E66.9 Obesity, unspecified; T38.3X6A Underdosing of insulin and oral hypoglycemic [antidiabetic] drugs, initial encounter; Z79.4 Long term (current) use of insulin; Z79.899 Other long term (current) drug therapy; Z88.5 Allergy status to narcotic agent; Z88.8 Allergy status to other drugs, medicaments and biological substances; Z91.010 Allergy to peanuts; Z91.040 Latex allergy status; Z91.048 Other nonmedicinal substance allergy status; Z91.15 Patient's noncompliance with renal dialysis; Z91.128 Patient's intentional underdosing of medication regimen for other reason; Z91.11 Patient's noncompliance with dietary regimen; Z20.822 Contact with and (suspected) exposure to COVID-19

== ENCOUNTER 2020-11-30 21:28 | Inpatient (IN) | payer MEDICARE, MEDICAID ==
[~2020-11-30] VITALS: Ht 175.3 cm; Wt 88.9 kg
[~2020-11-30 21:28] MED LIST changes: +ALCOPAD25 TOP; +BLOOKIT21 XX; +GLUC1TES2 XX; +INSU1MIS20 SC; +INSUHUMDS SC; +LANC30MI XX; +LASI80TA3 PO; +MED REC COMMENT; +METO100T5 PO; +NIFE90TA20 PO; +NOVOINJ3 SC; +PANT-23 PO; +SEVE800T3 PO; +VITA50005 PO
--- OUTSIDE RECORDS SUMMARY | 2020-11-30 21:34 | CCD ---
Author Author [facility] Organization [facility] Address Unknown Phone Unavailable Care Team Providers Care Associate Manager Name Role Phone [place], JLAM Unavailable Unavailable Thankachan, Reeba SUPPLY CRIB ATTENDANT Unavailable Unavailable Thankachan, Reeba SUPPLY CRIB ATTENDANT Unavailable Unavailable Thankachan, Reeba SUPPLY CRIB ATTENDANT Unavailable Unavailable Thankachan, Reeba SUPPLY CRIB ATTENDANT Unavailable Unavailable Thankachan, Reeba SUPPLY CRIB ATTENDANT Unavailable Unavailable Thankachan, Reeba SUPPLY CRIB ATTENDANT Unavailable Unavailable Thankachan, Reeba SUPPLY CRIB ATTENDANT Unavailable Unavailable Thankachan, Reeba SUPPLY CRIB ATTENDANT Unavailable Unavailable Thankachan, Reeba SUPPLY CRIB ATTENDANT Unavailable Unavailable Thankachan, Reeba SUPPLY CRIB ATTENDANT Unavailable Unavailable Thankachan, Reeba SUPPLY CRIB ATTENDANT Unavailable Unavailable Thankachan, Reeba SUPPLY CRIB ATTENDANT Unavailable Unavailable Thankachan, Reeba SUPPLY CRIB ATTENDANT Unavailable Unavailable Thankachan, Reeba SUPPLY CRIB ATTENDANT Unavailable Unavailable Thankachan, Reeba SUPPLY CRIB ATTENDANT Unavailable Unavailable Thankachan, Reeba SUPPLY CRIB ATTENDANT Unavailable Unavailable Thankachan, Reeba SUPPLY CRIB ATTENDANT Unavailable Unavailable Thankachan, Reeba SUPPLY CRIB ATTENDANT Unavailable Unavailable Thankachan, Reeba SUPPLY CRIB ATTENDANT Unavailable Unavailable Thankachan, Reeba SUPPLY CRIB ATTENDANT Unavailable Unavailable Thankachan, Reeba SUPPLY CRIB ATTENDANT Unavailable Unavailable Thankachan, Reeba SUPPLY CRIB ATTENDANT Unavailable Unavailable Thankachan, Reeba SUPPLY CRIB ATTENDANT Unavailable Unavailable Thankachan, Reeba SUPPLY CRIB ATTENDANT Unavailable Unavailable Thankachan, Reeba SUPPLY CRIB ATTENDANT Unavailable Unavailable Thankachan, Reeba SUPPLY CRIB ATTENDANT Unavailable Unavailable Thankachan, Reeba SUPPLY CRIB ATTENDANT Unavailable Unavailable Thankachan, Reeba SUPPLY CRIB ATTENDANT Unavailable Unavailable Thankachan, Reeba SUPPLY CRIB ATTENDANT Unavailable Unavailable Thankachan, Reeba SUPPLY CRIB ATTENDANT Unavailable Unavailable Thankachan, Reeba SUPPLY CRIB ATTENDANT Unavailable Unavailable Thankachan, Reeba SUPPLY CRIB ATTENDANT Unavailable Unavailable Thankachan, Reeba SUPPLY CRIB ATTENDANT Unavailable Unavailable Thankachan, Reeba SUPPLY CRIB ATTENDANT Unavailable Unavailable Thankachan, Reeba SUPPLY CRIB ATTENDANT Unavailable Unavailable Thankachan, Reeba SUPPLY CRIB ATTENDANT Unavailable Unavailable Thankachan, Reeba SUPPLY CRIB ATTENDANT Unavailable Unavailable Thankachan, Reeba SUPPLY CRIB ATTENDANT Unavailable Unavailable Thankachan, Reeba SUPPLY CRIB ATTENDANT Unavailable Unavailable Thankachan, Reeba SUPPLY CRIB ATTENDANT Unavailable Unavailable Thankachan, Reeba SUPPLY CRIB ATTENDANT Unavailable Unavailable Thankachan, Reeba SUPPLY CRIB ATTENDANT Unavailable Unavailable Thankachan, Reeba SUPPLY CRIB ATTENDANT Unavailable Unavailable Thankachan, Reeba SUPPLY CRIB ATTENDANT Unavailable Unavailable Re-disclosure Warning The records that you are about to access may contain information from federally-assisted alcohol or drug abuse programs. If such information is present, then the following federally mandated warning applies: This information has been disclosed to you from records protected by federal confidentiality rules (42 CFR part 2). The federal rules prohibit you from making any further disclosure of this information unless further disclosure is expressly permitted by the written consent of the person to whom it pertains or as otherwise permitted by 42 CFR part 2. A general authorization for the release of medical or other information is NOT sufficient for this purpose. The Federal rules restrict any use of the information to criminally investigate or prosecute any alcohol or drug abuse patient.The records that you are about to access may contain highly sensitive health information, the redisclosure of which is protected by Article 27-F of the [facility] Public Health law. If you continue you may have access to information: Regarding HIV / AIDS; Provided by facilities licensed or operated by the [facility] Office of Mental Health; or Provided by the [facility] Office for People With Developmental Disabilities. If such information is present, then the following [facility] mandated warning applies: This information has been disclosed to you from confidential records which are protected by state law. State law prohibits you from making any further disclosure of this information without the specific written consent of the person to whom it pertains, or as otherwise permitted by law. Any unauthorized further disclosure in violation of state law may result in a fine or detention sentence or both. A general authorization for the release of medical or other information is NOT sufficient authorization for further disc losure. Allergies and Adverse Reactions Type Description Substance Reaction Status Data Source(s ) Morphine Morphine Morphine Sulfate 15 MG Extended Release O ral Tablet Rash Active eCW1 ([facility]) Latex Latex Latex Unknown Active eCW1 ([facility]) Morphine Morphine Morphine Sulfate 15 MG Extended Release O ral Tablet Rash Active eCW1 ([facility]) Latex Latex Latex Unknown Active eCW1 ([facility]) Carvedilol Carvedilol carvedilol 3.125 MG Oral Tablet Dizziness Acti ve eCW1 ([facility]) Morphine Morphine Morphine Sulfate 15 MG Extended Release O ral Tablet Rash Active eCW1 ([facility]) Latex Latex Latex Unknown Active eCW1 ([facility]) Morphine Morphine Morphine Sulfate 15 MG Extended Release O ral Tablet Rash Active eCW1 ([facility]) Latex Latex Latex Unknown Active eCW1 ([facility]) Family History Family Member Name Family Member Gender Family Member Status Date o f Status Description Data Source(s) Unknown Unknown Problem MEDENT ([facility]) Unknown Male Problem MEDENT ([facility] Unknown Male Problem MEDENT ([facility]) () Encounters Encounter Providers Location Date Indications Data Source(s ) Outpatient Att[facility]: [facility] 04/10/2020 07:59:44 PM EDT [facility] 03/07/2020 12:00:00 AM [facility] Outpatient [facility]: [facility] 02/14/2020 03:47:00 [place] [address] [address] 02/02/2020 12:00:00 AM EDT eCW1 ([facility]) Outpatient Att[facility]: [facility] 01/13/2020 02:35:01 PM EDT [facility] Outpatient Attender: [facility] 01/13/2020 02:34:02 PM EDT [facility]/13/2020 02:28:01 PM EDT [facility] Outpatient Referrer: Josh Chan NP 12/29/2019 08:13: 00 PM EST [facility] [address] [address] 12/27/2019 12:00:00 AM EST eCW1 ([facility] [address] [address] 12/26/2019 12:00:00 AM EST eCW1 ([facility]) [address] [place] [address] 12/22/2019 12:00:00 AM EST eCW1 ([facility]) [address] [place] [address] 12/20/2019 12:00:00 AM EST eCW1 ([facility]) [address] [address] 12/20/2019 12:00:00 AM EST eCW1 ([facility]) [address] [address] 12/19/2019 12:00:00 AM EST eCW1 ([facility]) [address] [address] 12/15/2019 12:00:00 AM EST eCW1 ([facility]) [address] [address] 12/13/2019 12:00:00 AM EST eCW1 ([facility]) [address] [address] 12/08/2019 12:00:00 AM EST eCW1 ([facility]) [address] [address] 12/05/2019 12:00:00 AM EST eCW1 ([facility]) [address] [address] 11/28/2019 12:00:00 AM EST eCW1 ([facility]) [address] [address] 11/28/2019 12:00:00 AM EST eCW1 ([facility]) Outpatient Referrer: Josh Chan NP 11/23/2019 10:37: 00 AM EST [facility] [address] [address] 11/22/2019 12:00:00 AM EST eCW1 ([facility]) [address] [address] 11/21/2019 12:00:00 AM EST eCW1 ([facility]) [address] [address] 11/15/2019 12:00:00 AM EST eCW1 ([facility]) Outpatient Referrer: Josh Chan NP 11/10/2019 03:45: 00 PM EST [facility] Outpatient Referrer: Josh Chan NP 11/07/2019 09:29: 00 AM EST [facility] [address] [address] 11/03/2019 12:00:00 AM EST eCW1 ([facility]) [facility] Resident [address] [place] [address] 10/24/2019 12:00:00 AM EST eCW1 ([facility]) [address] [address] 10/07/2019 12:00:00 AM EST eCW1 ([facility]) Outpatient Referrer: Josh Chan NP 10/05/2019 05:18: 00 AM EST [facility] Medications Medication Brand Name Start Date Product Form Dose Route Admi nistrative Instructions Pharmacy Instructions Status Indications Reaction Description Data Source(s) BLOOD-GLUCOSE METER 11/29/2020 12:00:00 AM EST misc 1 USE DIRECTED FOUR TIMES A DAY USE DIRECTED FOUR TIMES A DAY SOLD: 11/29/2020 [facility] 1,250 mcg (50,000 unit) 11/29/2020 12:00:00 AM EST capsule 4 TAKE 1 CAPSULE BY MOUTH EVERY WEEK Thursday TAKE 1 CAPSULE BY MOUTH EVERY WEEK ON THURSDAY SOLD: 11/29/2020 [facility] BLOOD SUGAR DIAGNOSTIC 11/29/2020 12:00:00 AM EST strip 100 TEST FOUR TIMES A DAY TEST FOUR TIMES A DAY SOLD: 11/29/2020 [facility] 33 gauge 11/29/2020 12:00:00 AM EST misc 100 TEST FOUR TIMES A DAY TEST FOUR TIMES A DAY SOLD: 11/29/2020 [facility] 24 HR Nifedipine 90 MG Extended Release Oral Tablet NIFEDIPI NE 11/29/2020 12:00:00 AM EST tablet extended release 30 TAKE ONE TABLE T BY MOUTH EVERY DAY TAKE ONE TABLET BY MOUTH EVERY DAY SOLD: 11/29/2020 [facility] 100 unit/mL (3 mL) 11/29/2020 12:00:00 AM EST insulin pen 15 INJECT 5 UNITS UNDER SKIN ONCE DAILY AT BEDTIME INJECT 5 UNITS UNDER SKIN ONCE DAILY AT BEDTIME SOLD: 11/29/2020 [facility] 100 mg 11/28/2020 12:00:00 AM EST tablet 60 TAKE ONE TABLET BY MOUTH TWICE A DAY TAKE ONE TABLET BY MOUTH TWICE A DAY SOLD: 11/29/2020 [facility] 80 mg 11/28/2020 12:00:00 AM EST tablet 60 TAKE ONE TABLET BY MOUTH TWICE A DAY TAKE ONE TABLET BY MOUTH TWICE A DAY SOLD: 11/29/2020 [facility] ALCOHOL ANTISEPTIC PADS 11/27/2020 12:00:00 AM EST pads, med icated 100 USE FOUR TIMES A DAY USE FOUR TIMES A DAY SOLD: 11/29/2020 [facility] 32 gauge x 5/32" 11/27/2020 12:00:00 AM EST needle 100 USE DIRECTED FOUR TIMES A DAY USE DIRECTED FOUR TIMES A DAY SOLD: 11/29/2020 [facility] 100 unit/mL (3 mL) 11/27/2020 12:00:00 AM EST insulin pen 30 1 UNIT UNDER THE SKIN DIRECTED, CONTINUE PER ISS AT [facility] MAXIMUM DAILY DOSE = 60 UNITS 1 UNIT UNDER THE SKIN DIRECTED, KEI NUE PER ISS AT [facility] MAXIMUM DAILY DOSE = 60 UNITS SOLD: 11/29/2020 [facility] Levofloxacin 250 MG Oral Tablet Levofloxacin 250 MG 12/27/2019 1 2:00:00 AM EST active 1 tablet eCW1 ([facility]) Losartan Potassium 100 MG Oral Tablet LOSARTAN POTASSIUM 12:00:00 AM EST tablet 30 TAKE ONE TABLET BY MOUTH NHAN DAY TAKE ONE TABLET BY MOUTH EVERY DAY SOLD: 12/22/2019 [facility] Metronidazole 500 MG Oral Tablet [Flagyl] Flagyl 500 MG Flag yl 500 MG 12/08/2019 12:00:00 AM EST active 1 table t eCW1 ([facility]) Metronidazole 500 MG Oral Tablet [Flagyl] Flagyl 500 MG Flag yl 500 MG 12/08/2019 12:00:00 AM EST active 1 table t eCW1 ([facility]) 500 mg 12/08/2019 12:00:00 AM EST tablet 30 TAKE ONE TABLET BY MOUTH THREE TIMES A DAY FOR 10 DAYS TAKE ONE TABLET BY MOUTH THREE TIMES A DAY FOR 10 DAYS SOLD: 12/11/2019 [facility] 100 unit/mL (3 mL) 11/29/2019 12:00:00 AM EST insulin pen 3 INJECT 5 UNITS UNDER THE SKIN 3 TIMES DAILY AT MEALS INJECT 5 UNITS UNDER THE SKIN 3 TIMES DAILY AT MEALS SOLD: 12/11/2019 [facility] 3 ML Insulin, Aspart, Human 100 UNT/ML P en Injector [NovoLog] NovoLog Flexpen 100 UNIT/ML NovoLog Flexpen 100 UNIT/ML 11/28/2019 12:00:00 AM EST active as directed eCW1 ([facility]) 3 ML Insulin, Aspart, Human 100 UNT/ML P en Injector [NovoLog] NovoLog Flexpen 100 UNIT/ML NovoLog Flexpen 100 UNIT/ML 11/28/2019 12:00:00 AM EST active as directed eCW1 ([facility]) 3 ML Insulin, Aspart, Human 100 UNT/ML P en Injector [NovoLog] NovoLog Flexpen 100 UNIT/ML NovoLog Flexpen 100 UNIT/ML 11/28/2019 12:00:00 AM EST active as directed eCW1 ([facility]) atorvastatin 20 MG Oral Tablet ATORVASTATIN CALCIUM 11/26/2019 1 2:00:00 AM EST tablet 30 TAKE ONE TABLET BY MOUTH EVERY D AY TAKE ONE TABLET BY MOUTH EVERY DAY SOLD: 12/11/2019 [facility] atorvastatin 20 MG Oral Tablet Atorvastatin Calcium 20 MG Atorvastatin Calcium 20 MG 11/25/2019 12:00:00 AM EST active 1 tablet eCW1 ([facility]) atorvastatin 20 MG Oral Tablet Atorvastatin Calcium 20 MG Atorvastatin Calcium 20 MG 11/25/2019 12:00:00 AM EST active 1 tablet eCW1 ([facility]) Glucometer UNK 11/25/2019 12:00:00 AM EST active as directed eCW1 ([facility]) atorvastatin 20 MG Oral Tablet Atorvastatin Calcium 20 MG Atorvastatin Calcium 20 MG 11/25/2019 12:00:00 AM EST active 1 tablet eCW1 ([facility]) Vitamin D (Ergocalciferol) 50 MCG (1999 UT) Vitamin D (Ergocalciferol) 50 MCG (2000 UT) 11/25/2019 12:00:00 AM EST active 1 capsule eCW1 ([facility]) Glucometer UNK 11/25/2019 12:00:00 AM EST active as directed eCW1 ([facility]) Vitamin D (Ergocalciferol) 50 MCG (2000 UT) Vitamin D (Ergocalciferol) 50 MCG (2000 UT) 11/25/2019 12:00:00 AM EST active 1 capsule eCW1 ([facility]) Glucometer UNK 11/25/2019 12:00:00 AM EST active as directed eCW1 ([facility]) Vitamin D (Ergocalciferol) 50 MCG (1999 UT) Vitamin D (Ergocalciferol) 50 MCG (2000 UT) 11/25/2019 12:00:00 AM EST active 1 capsule eCW1 ([facility]) Amlodipine 10 MG Oral Tablet AmLODIPine Besylate 10 MG AmLODIPine Besylate 10 MG 11/19/2019 12:00:00 AM EST active 1 tablet eCW1 ([facility]) Calcium Carbonate 500 MG Chewable Tablet [Tums] Tums 500 MG Tums 500 MG 11/19/2019 12:00:00 AM EST active 3 tablet eCW1 ([facility]) pantoprazole 40 MG Delayed Release Oral Tablet [Proton ix] Protonix 40 MG Protonix 40 MG 11/19/2019 12:00:00 AM EST active 1 tablet eCW1 ([facility]) Calcium Carbonate 500 MG Chewable Tablet [Tums] Tums 500 MG Tums 500 MG 11/19/2019 12:00:00 AM EST active 3 tablet eCW1 ([facility]) Sulfamethoxazole 800 MG / Trimethoprim 1 60 MG Oral Tablet [Bactrim] Bactrim DS 800-160 MG Bactrim DS 800-160 MG 11/19/2019 12:00:00 AM EST suspended 1 tablet eCW1 ([facility]) 40 mg 11/19/2019 12:00:00 AM EST tablet,delayed release (DR/EC) 30 TAKE ONE TABLET BY MOUTH EVERY DAY TAKE ONE TABLET BY MOUTH EVERY DAY SOLD: 11/20/2019 [facility] Calcium Carbonate 500 MG Chewable Tablet [Tums] Tums 500 MG Tums 500 MG 11/19/2019 12:00:00 AM EST active 3 tablet eCW1 ([facility]) pantoprazole 40 MG Delayed Release Oral Tablet [Proton ix] Protonix 40 MG Protonix 40 MG 11/19/2019 12:00:00 AM EST active 1 tablet eCW1 ([facility]) Amlodipine 10 MG Oral Tablet AmLODIPine Besylate 10 MG AmLODIPine Besylate 10 MG 11/19/2019 12:00:00 AM EST active 1 tablet eCW1 ([facility]) Amlodipine 10 MG Oral Tablet AmLODIPine Besylate 10 MG AmLODIPine Besylate 10 MG 11/19/2019 12:00:00 AM EST active 1 tablet eCW1 ([facility]) pantoprazole 40 MG Delayed Release Oral Tablet [Proton ix] Protonix 40 MG Protonix 40 MG 11/19/2019 12:00:00 AM EST active 1 tablet eCW1 ([facility]) 800-160 mg 11/18/2019 12:00:00 AM EST tablet 3 TAKE ONE TABLET BY MOUTH EVERY DAY TAKE ONE TABLET BY MOUTH EVERY DAY SOLD: 11/20/2019 [facility] 2.5 mg 11/17/2019 12:00:00 AM EST tablet 60 TAKE ONE TABLET BY MOUTH TWICE A DAY TAKE ONE TABLET BY MOUTH TWICE A DAY SOLD: 11/20/2019 [facility] 2.5 mg 10/13/2019 12:00:00 AM EST tablet 90 TAKE ONE TABLET BY MOUTH TWICE A DAY [ON DIALYSIS DAYS, TAKE AFTER DIALYSIS] TAKE ONE TABLET BY MOUTH TWICE A DAY [ON DIALYSIS DAYS, TAKE AFTER DIALYSIS] SOLD: 12/22/2019 [facility] 2.5 mg 10/13/2019 12:00:00 AM EST tablet 90 TAKE ONE TABLET BY MOUTH TWICE A DAY [ON DIALYSIS DAYS, TAKE AFTER DIALYSIS] TAKE ONE TABLET BY MOUTH TWICE A DAY [ON DIALYSIS DAYS, TAKE AFTER DIALYSIS] SOLD: 10/17/2019 [facility] 200 mg 09/30/2019 12:00:00 AM EST tablet extended release 24 hr 30 TAKE ONE TABLET BY MOUTH EVERY DAY TAKE ONE TABLET BY MOUTH EVERY DAY SOLD: 10/07/2019 [facility] 200 mg 09/30/2019 12:00:00 AM EST tablet extended release 24 hr 30 TAKE ONE TABLET BY MOUTH EVERY DAY TAKE ONE TABLET BY MOUTH EVERY DAY SOLD: 12/22/2019 [facility] 10 mg 09/30/2019 12:00:00 AM EST tablet 30 TAKE 1 TABLET BY MOUTH DAILY TAKE 1 TABLET BY MOUTH DAILY SOLD: 12/22/2019 [facility] 200 mg 09/30/2019 12:00:00 AM EST tablet extended release 24 hr 30 TAKE ONE TABLET BY MOUTH EVERY DAY TAKE ONE TABLET BY MOUTH EVERY DAY SOLD: 11/20/2019 [facility] 10 mg 09/30/2019 12:00:00 AM EST tablet 30 TAKE 1 TABLET BY MOUTH DAILY TAKE 1 TABLET BY MOUTH DAILY SOLD: 10/07/2019 [facility] 10 mg 09/30/2019 12:00:00 AM EST tablet 30 TAKE 1 TABLET BY MOUTH DAILY TAKE 1 TABLET BY MOUTH DAILY SOLD: 11/20/2019 [facility] Clonidine Hydrochloride 0.2 MG Oral Tablet CLONIDINE HCL 06/16/2019 12:00:00 AM EDT tablet 90 TAKE ONE TABLET BY MOUTH THR EE TIMES A DAY TAKE ONE TABLET BY MOUTH THREE TIMES A DAY SOLD: 12/22/2019 [facility] Clonidine Hydrochloride 0.2 MG Oral Tablet CLONIDINE HCL 06/16/2019 12:00:00 AM EDT tablet 90 TAKE ONE TABLET BY MOUTH THR EE TIMES A DAY TAKE ONE TABLET BY MOUTH THREE TIMES A DAY SOLD: 11/20/2019 [facility] Clonidine Hydrochloride 0.2 MG Oral Tablet CLONIDINE HCL 06/16/2019 12:00:00 AM EDT tablet 90 TAKE ONE TABLET BY MOUTH THR EE TIMES A DAY TAKE ONE TABLET BY MOUTH THREE TIMES A DAY SOLD: 10/07/2019 [facility] 100 mg 05/10/2019 12:00:00 AM EDT tablet extended release 24 hr 30 TAKE ONE TABLET BY MOUTH EVERY DAY TAKE ONE TABLET BY MOUTH EVERY DAY SOLD: 10/07/2019 [facility] 5 mg 05/10/2019 12:00:00 AM EDT tablet 30 TAKE ONE TABLET BY MOUTH EVERY DAY TAKE ONE TABLET BY MOUTH EVERY DAY SOLD: 10/07/2019 [facility] 100 mg 05/10/2019 12:00:00 AM EDT tablet extended release 24 hr 30 TAKE ONE TABLET BY MOUTH EVERY DAY TAKE ONE TABLET BY MOUTH EVERY DAY SOLD: 11/20/2019 [facility] Losartan Potassium 100 MG Oral Tablet LOSARTAN POTASSIUM 12:00:00 AM EDT tablet 30 TAKE ONE TABLET BY MOUTH NHAN RY DAY TAKE ONE TABLET BY MOUTH EVERY DAY SOLD: 11/20/2019 [facility] Losartan Potassium 100 MG Oral Tablet LOSARTAN POTASSIUM 12:00:00 AM EDT tablet 30 TAKE ONE TABLET BY MOUTH NHAN RY DAY TAKE ONE TABLET BY MOUTH EVERY DAY SOLD: 10/07/2019 [facility] Insurance Providers Payer name Policy type / Coverage type Policy ID Covered republican ID Covered republican's relationship to arriaga Policy Arriaga Plan Information MEDICARE [id number] SP [id number] [place]EDNY [id number] SP [id number] ON LICENSE OF [facility] COMMUNITY PL[facility] [id number] SP [id number] [facility] I [id number] Self [id number] OTHER B TRANSPLANT Self TRANSPLAN T Self Pay P UNAVAILABLE S UNAVAILA BLE MEDICARE [id number] SP [id number] MEDICAID [id number] SP [id number] MEDICARE C [id number] S [id number] MEDICAID M [id number] MEDICARE [id number] SP [id number] MEDICAID [id number] SP [id number] [facility] COMMUNITY [facility] [id number] SP [id number] SELF PAY ONLY [id number] SP [id number] [facility] [id number] SP [id number] [facility] Commercial [id number] Self [id number] MEDICARE PART A -O/P [id number] 18 [id number] [employer] COMMUNITY PLAN XIX [id number] 18 [id number] ANSI-Not a Secondary Insurance [id number] ANSI-Medicaid [id number] ANSI-Medicaid [id number] ANSI-Commercial [id number] ANSI-Medicaid [id number] [facility] Health Maintenance Organization ([facility]) [id number] Self [id number] ANSI-Medicaid [id number] ANSI-Not a Secondary Insurance [id number] ANSI-Medicaid [id number] ANSI-Commercial [id number] ANSI-Medicaid [id number] MEDICARE MCA [id number] S [id number] K89 MEDICARE MCA [id number] S [id number] [facility] HEA [id number] S [id number] ANSI-Medicaid [id number] ANSI-Commercial [id number] ANSI-Medicaid [id number] ANSI-Not a Secondary Insurance [id number] ANSI-Medicaid [id number] MEDICARE [id number] SP [id number] [facility] Commercial [id number] Self [id number] ANSI-Commercial [id number] ANSI-Medicaid [id number] ANSI-Medicaid [id number] ANSI-Medicaid [id number] ANSI-Not a Secondary Insurance [id number] ANSI-Not a Secondary Insurance [id number] ANSI-Medicaid [id number] ANSI-Commercial [id number] ANSI-Medicaid [id number] ANSI-Medicaid [id number] [facility] Commercial [id number] Self [id number] ANSI-Medicaid [id number] ANSI-Commercial [id number] ANSI-Not a Secondary Insurance [id number]-[id number] ANSI-Medicaid [id number] ANSI-Medicaid [id number] ANSI-Not a Secondary Insurance [id number] 8bp79oh [id number] ANSI-Medicaid [id number] ANSI-Medicaid [id number] ANSI-Medicaid [id number] ANSI-Commercial [id number] [employer] [id number] ANSI-Commercial [id number]-[id number]-[id number] ANSI-Medicaid [id number] ANSI-Medicaid [id number] ANSI-Medicaid [id number] ANSI-Not a Secondary Insurance [id number]-23l1-26nm-smh4-96o8u [id number] ziks57mr-86m5-71zv-kxs5-12h6at13v2p0 ANSI-Not a Secondary Insurance [id number]-[id number] [id number]-r34j-[id number] ANSI-Medicaid [id number] ANSI-Medicaid [id number] ANSI-Medicaid [id number] ANSI-Commercial [id number]-[id number]-v40j-[id number]-c424-780f-q79e-[id number] ANSI-Commercial [id number]-30d5-[id number] [id number]-24p2-[id number] ANSI-Medicaid [id number] ANSI-Not a Secondary Insurance [id number]-sx03-8zfh-955o-[id number] [id number] [id number]-wp37-5web-074j-[id number] ANSI-Medicaid [id number] ANSI-Medicaid [id number] ANSI-Medicaid [id number] ANSI-Medicaid [id number] ANSI-Not a Secondary Insurance [id number] 81cdeaf [id number]-a87c-5883-[id number] ANSI-Commercial [id number]-[id number]-[id number]-3cm1-3254-134v-[id number] ANSI-Medicaid [id number] [facility] Commercial [id number] Self [id number] ANSI-Not a Secondary Insurance [id number]-kf6e-[id number] ANSI-Commercial [id number]-[id number]-[id number] ANSI-Medicaid [id number] ANSI-Medicaid [id number] ANSI-Medicaid [id number] ANSI-Medicaid [id number] ANSI-Medicaid [id number] ANSI-Commercial [id number]-l8me-[id number]-y8bk-[id number] ANSI-Medicaid [id number] ANSI-Not a Secondary Insurance [id number]-6jgaz [id number] [id number] [facility] Commercial [id number] [facility] [id number] ANSI-Commercial 08qvtsz8-0dl3-73ty-[id number] 48ackge7-0hy3-91xw-0446-593ko7or4w1s ANSI-Medicaid [id number] ANSI-Medicaid [id number] ANSI-Not a Secondary Insurance [id number] ANSI-Medicaid [id number] ANSI-Not a Secondary Insurance [id number] [id number] ANSI-Medicaid [id number] ANSI-Medicaid [id number] ANSI-Medicaid [id number] ANSI-Commercial [id number]-d6kz-4y1q-[id number] [id number]-j8gc-5u8w-[id number] [facility] [id number] S [id number] ANSI-Medicaid [id number] ANSI-Medicaid [id number] ANSI-Medicaid [id number] ANSI-Not a Secondary Insurance [id number]-c9yl-95i3-[id number] ANSI-Commercial [id number]-[id number] [id number]-[id number] ANSI-Not a Secondary Insurance [id number]-2119-[id number] ANSI-Medicaid [id number] ANSI-Commercial [id number]-ae5j-[id number] [id number]-9986-vb1i-[id number] ANSI-Medicaid [id number] [facility]) O [id number] S [id number] [facility] [place] [id number] S [id number] [facility] [id number] S [id number] [facility] [id number] S [id number] [facility] Maintenance Organization (HMO) [id number] Self [id number] ANSI-Medicaid [id number] ANSI-Not a Secondary Insurance [id number]-f21r-[id number] ANSI-Medicaid [id number] ANSI-Commercial [id number]-j8la-[id number]-860f-s4zz-[id number] MEDICAID [id number] SP [id number] [facility] Hmo Commercial [id number] Self [id number] [facility] Community Plan Commercial [id number] Self [id number] ANSI-Medicaid [id number] ANSI-Medicaid [id number] ANSI-Not a Secondary Insurance [id number]-e5p5-190b-0zk8-[id number] ANSI-Commercial [id number] MEDICAID [id number] S [id number] [facility] [id number] S [id number] ANSI-Commercial [id number]-[id number]-910r-577q-82vv-[id number] ANSI-Not a Secondary Insurance [id number] ANSI-Medicaid [id number] ANSI-Medicaid [id number] ANSI-Commercial [id number]-[id number] ANSI-Medicaid [id number] ANSI-Not a Secondary Insurance [id number] [id number] ANSI-Medicaid [id number] MEDICAID [id number] SP [id number] SELF PAY ONLY - SP1 [id number] SP [id number] MEDICAID [id number] SP [id number] ANSI-Not a Secondary Insurance [id number] ANSI-Commercial [id number]-[id number]-[id number] ANSI-Medicaid [id number] ANSI-Medicaid [id number] ANSI-Commercial [id number]-077b-[id number] SELF-PAY UNAVAILABLE S UNAVAILA BLE SELF-PAY UNAVAILABLE S UNAVAILA BLE ANSI-Medicaid [id number] ANSI-Commercial [id number] SELF PAY ONLY [id number] SP [id number] [facility] [id number] SP [id number] [facility] UNK [employer] [id number] SP [id number] [employer] [id number] SP [id number] [employer] UNAVAILABLE SP UNAVA ILABLE OTHER [employer]EMPL[employer] [id number] SP [id number] Problems, Conditions, and Diagnoses Code Display Name Description Problem Type Effective Dates Data Source(s) D72.829 Leukocytosis Leukocytosis, unspecified type Problem 12/21/2019 12:00:00 AM EST eCW1 ([facility]) Type 2 diabetes mellitus with diabetic p olyneuropathy Type 2 diabetes mellitus with diabetic polyneuropathy Problem 12/04/2019 12:00:00 AM EST MEDE NT ([facility] [id number] Onychomycosis Onychomycosis Problem 12/04/2019 12:00:00 AM EST MEDENT ([facility] N87.1 [id number] Moderate cervical dysplasia Problem 11/03/19 12:00:00 AM EST eCW1 ([facility]) Pressure ulcer of other site, stage 2 Pressure u lcer of other site, stage 2 Problem 08/24/2019 12:00:00 AM EDT - 10/13/2019 12:00:00 AM ES T MEDENT ([facility] Surgeries/Procedures Procedure Description Date Indications Data Source(s) Office Visit, Est Pt., Level 2 FC 12/20/2019 12:00:00 AM EST eCW1 ([facility]) Office Visit, Est Pt., Level 3 PC 12/20/2019 12:00:00 AM EST eCW1 ([facility]) PARING/CUTTING BENIGN HYPERKERATOTIC LESION 1 11/30/19 12:00:00 AM EST MEDENT ([facility] DEBRIDEMENT NAIL ANY METHOD 6/> 11/30/2019 12:00:00 AM EST MEDENT ([facility] DEBRIDEMENT OPEN WOUND 20 SQ CM/< 11/30/2019 12:00:00 AM EST MEDENT ([facility] Transitional Care NO CHARGE Visit 11/22/2019 12:00:00 AM EST eCW1 ([facility]) TRANS CARE MGMT 7 DAY DISCH 11/21/2019 12:00:00 AM EST eCW1 ([facility]) DEBRIDEMENT OPEN WOUND 20 SQ CM/< 11/03/2019 12:00:00 AM EST MEDENT ([facility] DEBRIDEMENT OPEN WOUND 20 SQ CM/< 10/20/2019 12:00:00 AM EST MEDENT ([facility] DEBRIDEMENT OPEN WOUND 20 SQ CM/< 10/06/2019 12:00:00 AM EST MEDENT ([facility] Results ID Date Data Source [id number] 11/25/2020 06:02:00 PM EST [facility] Name Value Range Interpretation Code Description Data Lynn rce(s) Supporting Document(s) SARS coronavirus 2 RNA [Presence] in Res piratory specimen by ALEXIS with probe detection NEGATIVE [facility] This lab was ordered by [facility] a nd reported by [facility]. ID Date Data Source LIPASE 12/20/2019 12:00:00 AM EST eCW1 ([facility]) Name Value Range Interpretation Code Description Data Lynn rce(s) Supporting Document(s) [id number] LIPASE eCW1 ([facility]) ID Date Data Source Comprehensive Metabolic Profile (CMP) 12/20/2019 12:00:00 AM EST eCW1 ([facility]) Name Value Range Interpretation Code Description Data Lynn rce(s) Supporting Document(s) 5.83 0.55-1.30 CREATININE FOR GFR eCW1 ([facility] hospital) 10.8 >60 GLOMERULAR FILTRATION RATE eCW 1 ([facility]) 25 7-18 BLOOD UREA NITROGEN eCW1 ([facility]) 494 70-100 GLUCOSE, FASTING eCW1 ([facility]) 30 21-32 CARBON DIOXIDE LEVEL eCW1 ([facility]) 3.3 3.5-5.1 POTASSIUM SERUM eCW1 ([facility]) 86 98-107 CHLORIDE LEVEL eCW1 ([facility]) 127 136-145 SODIUM LEVEL eCW1 ([facility]) 87 45-117 ALKALINE PHOSPHATASE eCW1 ([facility]) 8.5 8.5-10.1 CALCIUM LEVEL eCW1 ([facility]) 16 12-78 ALT/SGPT eCW1 ([facility]) 21 7-37 AST/SGOT eCW1 ([facility]) 2.6 3.2-5.2 ALBUMIN eCW1 ([facility]) 0.48 1.00-1.93 ALBUMIN/GLOBULIN RATIO eCW1 ([facility]) 8.0 6.4-8.2 TOTAL PROTEIN eCW1 ([facility]) 0.6 0.2-1.0 BILIRUBIN,TOTAL eCW1 ([facility]) ID Date Data Source CBC with Differential 12/20/2019 12:00:00 AM EST eCW1 ([facility] hospital) Name Value Range Interpretation Code Description Data Lynn rce(s) Supporting Document(s) 12.3 4.0-10.0 WHITE BLOOD COUNT eCW1 ([facility]) 28.7 36.0-47.0 HEMATOCRIT eCW1 ([facility]) 3.13 4.00-5.40 RED BLOOD COUNT eCW1 ([facility]) 9.6 12.0-15.5 HEMOGLOBIN eCW1 ([facility]) 30.7 27.0-33.0 MEAN CORPUSCULAR HEMOGLOB IN eCW1 ([facility]) 13.1 11.5-14.5 RED CELL DISTRIBUTION WID TH eCW1 ([facility]) 91.7 80.0-96.0 MEAN CORPUSCULAR VOLUME e CW1 ([facility]) 33.4 32.0-36.5 MEAN CORPUSCULAR HGB CONC eCW1 ([facility]) 16.6 24.0-44.0 LYMPH % eCW1 ([facility]) 5.4 0.0-5.0 MONO % eCW1 ([facility]) 478 150-450 PLATELET COUNT, AUTOMATED eCW1 ([facility]) 74.0 36.0-66.0 NEUTROPHILS % eCW1 ([facility]) 9.1 1.5-8.5 NEUTROPHILS # eCW1 ([facility]) 2.1 1.5-5.0 LYMPH # eCW1 ([facility]) 3.2 0.0-3.0 EOS % eCW1 ([facility]) 0.4 0.0-1.0 BASO % eCW1 ([facility]) 0.7 0.0-0.8 MONO # eCW1 ([facility]) 0.4 0.0-0.5 EOS # eCW1 ([facility]) 0.1 0.0-0.2 BASO # eCW1 ([facility]) ID Date Data Source VITAMIN D 25-HYDROXY 11/21/2019 12:00:00 AM EST eCW1 ([facility]) Name Value Range Interpretation Code Description Data Lynn rce(s) Supporting Document(s) 18.5 30.0-100.0 TOTAL 25(OH) VITAMIN D eC W1 ([facility]) ID Date Data Source LIPID PANEL (CARDIAC RISK) 11/21/2019 12:00:00 AM EST eCW1 ( [facility]) Name Value Range Interpretation Code Description Data Lynn rce(s) Supporting Document(s) Cholesterol in LDL [Mass/volume] in Serum or Plasma by calculation 149.4 <100 LDL CHOLESTEROL eCW1 ([facility]) Triglyceride [Mass/volume] in Serum or Plasma by calculation 747 <150 TRIGLYCERIDES LEVEL eCW1 ([facility]) Cholesterol [Moles/volume] in Serum or Plasma 215 <200 CHOLESTEROL LEVEL eCW1 ([facility]) 6.935 <5 CHOLESTEROL RISK RATIO eCW1 ([facility]) Cholesterol in HDL [Moles/volume] in Serum or Plasma 31 >40 HDL CHOLESTEROL eCW1 ([facility]) 184 NON-HDL-C eCW1 ([facility]) ID Date Data Source [id number] 11/21/2019 12:00:00 AM EST eCW1 ([facility]) Name Value Range Interpretation Code Description Data Lynn rce(s) Supporting Document(s) Hemoglobin A1c/Hemoglobin.total in Blood 10.3 HEMOGLOBIN A1c eCW1 ([facility]) Procedure Vital Signs ID Date Data Source UNK Name Value Range Interpretation Code Description Data Source(s) Diastolic blood pressure 90 mm[Hg] 90 mm[Hg] eCW1 ([facility]) Systolic blood pressure 178 mm[Hg] 178 mm[Hg] e CW1 ([facility]) Body temperature 97.2 [degF] 97.2 [degF] eCW1 ( [facility]) Respiratory rate 18 /min 18 /min eCW1 ([facility]) Heart rate 93 /min 93 /min eCW1 ([facility]) Body mass index (BMI) [Ratio] 28.03 kg/m2 28.03 kg/m2 W1 ([facility]) Body height 69 [in_us] 69 [in_us] eCW1 ([facility]) Body weight Measured 189.8 [lb_av] 189.8 [lb_av ] eCW1 ([facility]) Diastolic blood pressure 78 mm[Hg] 78 mm[Hg] eCW1 ([facility]) Systolic blood pressure 140 mm[Hg] 140 mm[Hg] e CW1 ([facility]) Body mass index (BMI) [Ratio] 28.91 kg/m2 28.91 kg/m2 eCW1 ([facility]) Body height 69 [in_us] 69 [in_us] eCW1 ([facility]) Body weight Measured 195.8 [lb_av] 195.8 [lb_av ] eCW1 ([facility]) Diastolic blood pressure 100 mm[Hg] 100 mm[Hg] eCW1 ([facility]) Systolic blood pressure 180 mm[Hg] 180 mm[Hg] e CW1 ([facility]) Body temperature 95.4 [degF] 95.4 [degF] eCW1 ( [facility]) Respiratory rate 18 /min 18 /min eCW1 ([facility]) Heart rate 88 /min 88 /min eCW1 ([facility]) Body mass index (BMI) [Ratio] 30.45 kg/m2 30.45 kg/m2 W1 ([facility]) Body height 69 [in_us] 69 [in_us] eCW1 ([facility]) Body weight Measured 206.2 [lb_av] 206.2 [lb_av ] eCW1 ([facility]) Diastolic blood pressure 92 mm[Hg] 92 mm[Hg] eCW1 ([facility]) Systolic blood pressure 162 mm[Hg] 162 mm[Hg] e CW1 ([facility]) Body mass index (BMI) [Ratio] 30.62 kg/m2 30.62 kg/m2 W1 ([facility]) Body height 69 [in_us] 69 [in_us] eCW1 ([facility]) Body weight Measured 207.4 [lb_av] 207.4 [lb_av ] eCW1 ([facility]) Patient Treatment Plan of Care Planned Activity Planned Date Details Description Data Source (s) Levofloxacin 250 MG Oral Tablet 12/27/2019 12:00:00 AM EST eCW1 ([facility]) Metronidazole 500 MG Oral Tablet [Flagyl] 12/08/2019 12:00:00 AM ES T eCW1 ([facility]) 3 ML Insulin, Aspart, Human 100 UNT/ML Pen Injector [N ovoLog] 11/28/2019 12:00:00 AM EST eCW1 ([facility]) atorvastatin 20 MG Oral Tablet 11/25/2019 12:00:00 AM EST eCW1 ([facility]) Glucometer 11/25/2019 12:00:00 AM EST e CW1 ([facility]) Vitamin D (Ergocalciferol) 50 MCG (1999 UT) 11/25/2019 12:00:00 AM EST eCW1 ([facility])
[2020-11-30] MEDS ORDERED: HYDR-3910 PO (21:38)
--- OUTSIDE RECORDS SUMMARY | 2020-11-30 23:21 | CCD ---
Author Author [facility] Organization [facility] Address Unknown Phone Unavailable Care Team Providers Care Awning Hanger Helper Name Role Phone NC, JLAM Unavailable Unavailable Thankachan, Reeba DEVICE PROCESSING ENGINEER Unavailable Unavailable Thankachan, Reeba DEVICE PROCESSING ENGINEER Unavailable Unavailable Thankachan, Reeba DEVICE PROCESSING ENGINEER Unavailable Unavailable Thankachan, Reeba DEVICE PROCESSING ENGINEER Unavailable Unavailable Thankachan, Reeba DEVICE PROCESSING ENGINEER Unavailable Unavailable Thankachan, Reeba DEVICE PROCESSING ENGINEER Unavailable Unavailable Thankachan, Reeba DEVICE PROCESSING ENGINEER Unavailable Unavailable Thankachan, Reeba DEVICE PROCESSING ENGINEER Unavailable Unavailable Thankachan, Reeba DEVICE PROCESSING ENGINEER Unavailable Unavailable Thankachan, Reeba DEVICE PROCESSING ENGINEER Unavailable Unavailable Thankachan, Reeba DEVICE PROCESSING ENGINEER Unavailable Unavailable Thankachan, Reeba DEVICE PROCESSING ENGINEER Unavailable Unavailable Thankachan, Reeba DEVICE PROCESSING ENGINEER Unavailable Unavailable Thankachan, Reeba DEVICE PROCESSING ENGINEER Unavailable Unavailable Thankachan, Reeba DEVICE PROCESSING ENGINEER Unavailable Unavailable Thankachan, Reeba DEVICE PROCESSING ENGINEER Unavailable Unavailable Thankachan, Reeba DEVICE PROCESSING ENGINEER Unavailable Unavailable Thankachan, Reeba DEVICE PROCESSING ENGINEER Unavailable Unavailable Thankachan, Reeba DEVICE PROCESSING ENGINEER Unavailable Unavailable Thankachan, Reeba DEVICE PROCESSING ENGINEER Unavailable Unavailable Thankachan, Reeba DEVICE PROCESSING ENGINEER Unavailable Unavailable Thankachan, Reeba DEVICE PROCESSING ENGINEER Unavailable Unavailable Thankachan, Reeba DEVICE PROCESSING ENGINEER Unavailable Unavailable Thankachan, Reeba DEVICE PROCESSING ENGINEER Unavailable Unavailable Thankachan, Reeba DEVICE PROCESSING ENGINEER Unavailable Unavailable Thankachan, Reeba DEVICE PROCESSING ENGINEER Unavailable Unavailable Thankachan, Reeba DEVICE PROCESSING ENGINEER Unavailable Unavailable Thankachan, Reeba DEVICE PROCESSING ENGINEER Unavailable Unavailable Thankachan, Reeba DEVICE PROCESSING ENGINEER Unavailable Unavailable Thankachan, Reeba DEVICE PROCESSING ENGINEER Unavailable Unavailable Thankachan, Reeba DEVICE PROCESSING ENGINEER Unavailable Unavailable Thankachan, Reeba DEVICE PROCESSING ENGINEER Unavailable Unavailable Thankachan, Reeba DEVICE PROCESSING ENGINEER Unavailable Unavailable Thankachan, Reeba DEVICE PROCESSING ENGINEER Unavailable Unavailable Thankachan, Reeba DEVICE PROCESSING ENGINEER Unavailable Unavailable Thankachan, Reeba DEVICE PROCESSING ENGINEER Unavailable Unavailable Thankachan, Reeba DEVICE PROCESSING ENGINEER Unavailable Unavailable Thankachan, Reeba DEVICE PROCESSING ENGINEER Unavailable Unavailable Thankachan, Reeba DEVICE PROCESSING ENGINEER Unavailable Unavailable Thankachan, Reeba DEVICE PROCESSING ENGINEER Unavailable Unavailable Thankachan, Reeba DEVICE PROCESSING ENGINEER Unavailable Unavailable Thankachan, Reeba DEVICE PROCESSING ENGINEER Unavailable Unavailable Thankachan, Reeba DEVICE PROCESSING ENGINEER Unavailable Unavailable Thankachan, Reeba DEVICE PROCESSING ENGINEER Unavailable Unavailable Re-disclosure Warning The records that [...] is protected by Article 27-F of the [facility] Public Health law. If you continue you may have access to information: Regarding HIV / AIDS; Provided by facilities licensed or operated by the [facility] Office of Mental Health; or Provided by the [facility] Office for People With Developmental Disabilities. If such information is present, then the following [facility] mandated warning applies: This information has been [...] law may result in a fine or retirement sentence or both. A general authorization for the release of medical or other information is NOT sufficient authorization for further disc losure. Allergies and Adverse Reactions Type Description Substance Reaction Status Data Source(s ) Morphine Morphine Morphine Sulfate 15 MG Extended Release O ral Tablet Rash Active eCW1 ([facility]) Latex Latex Latex Unknown Active eCW1 ([facility]) Morphine Morphine Morphine Sulfate 15 MG Extended Release O ral Tablet Rash Active eCW1 ([facility]) Latex Latex Latex Unknown Active eCW1 ([facility]) Carvedilol Carvedilol carvedilol 3.125 MG Oral Tablet Dizziness Acti ve eCW1 ([facility]) Morphine Morphine Morphine Sulfate 15 MG Extended Release O ral Tablet Rash Active eCW1 ([facility]) Latex Latex Latex Unknown Active eCW1 ([facility]) Morphine Morphine Morphine Sulfate 15 MG Extended Release O ral Tablet Rash Active eCW1 ([facility]) Latex Latex Latex Unknown Active eCW1 ([facility]) Family History Family Member Name Family Member Gender Family Member Status Date o f Status Description Data Source(s) Unknown Unknown Problem MEDENT ([facility]) Unknown Male Problem MEDENT ([facility] Unknown Male Problem MEDENT ([facility]) () Encounters Encounter Providers Location Date Indications Data Source(s ) Outpatient Attender: [facility] 04/10/2020 07:59:44 PM EDT [facility] Outpatient 03/07/2020 12:00:[address] [facility] Outpatient Attender: [facility] 02/14/2020 03:47:00 [place] [address] [address] 02/02/2020 12:00:00 AM EDT eCW1 ([facility]) Outpatient Attender: [facility] 01/13/2020 02:35:01 PM EDT [facility] Outpatient Attender: [facility] 01/13/2020 02:34:02 PM EDT [facility]/13/2020 02:28:01 PM EDT [facility] Outpatient Referrer: Josh Chan NP 12/29/2019 08:13: 00 PM EST [facility] [address] [address] 12/27/2019 12:00:00 AM EST eCW1 ([facility]) [address] [address] 12/26/2019 12:00:00 AM EST eCW1 ([facility]) [address] [place] [address] 12/22/2019 12:00:00 AM EST eCW1 ([facility]) [address] [place] [address] 12/20/2019 12:00:00 AM EST eCW1 ([facility]) [address] [address] 12/20/2019 12:00:00 AM EST eCW1 ([facility]) [address] [address] 12/19/2019 12:00:00 AM EST eCW1 ([facility]) [address] [address] 12/15/2019 12:00:00 AM EST eCW1 ([facility]) [address] [address] 12/13/2019 12:00:00 AM EST eCW1 ([facility]) [address] [address] 12/08/2019 12:00:00 AM EST eCW1 ([facility]) [address] [address] 12/05/2019 12:00:00 AM EST [facility] [address] [address] 11/28/2019 12:00:00 AM EST eCW1 ([facility]) [address] [address] 11/28/2019 12:00:00 AM EST eCW1 [facility]) Outpatient Referrer: Josh Chan NP 11/23/2019 10:37: 00 AM EST [facility] [address] [address] 11/22/2019 12:00:00 AM EST eCW1 ([facility]) [address] [address] 11/21/2019 12:00:00 AM EST eCW1 ([facility]) [address] [address] 11/15/2019 12:00:00 AM EST eCW1 ([facility]) Outpatient Referrer: Josh Chan NP 11/10/2019 03:45: 00 PM EST [facility] Outpatient Referrer: Josh Chan NP 11/07/2019 09:29: 00 AM EST [facility] [address] [address] 11/03/2019 12:00:00 AM EST eCW1 ([facility]) [facility] Resident [address] [place] [address] 10/24/2019 12:00:00 AM EST eCW1 ([facility]) [address] [address] 10/07/2019 12:00:00 AM EST eCW1 ([facility]) Outpatient Referrer: Josh Chan NP 10/05/2019 [...] THE SKIN DIRECTED, CONTINUE PER ISS AT [facility] MAXIMUM DAILY DOSE = 60 UNITS 1 UNIT UNDER THE SKIN DIRECTED, KEI NUE PER ISS AT [facility] MAXIMUM DAILY DOSE = 60 UNITS SOLD: 11/29/2020 [facility] Levofloxacin 250 MG Oral Tablet Levofloxacin 250 MG 12/27/2019 1 2:00:00 AM EST active 1 tablet eCW1 ([facility]) Losartan Potassium 100 MG Oral Tablet LOSARTAN POTASSIUM 12:00:00 AM EST tablet 30 TAKE ONE TABLET BY MOUTH NHAN DAY TAKE ONE TABLET BY MOUTH EVERY DAY SOLD: 12/22/2019 [facility] Metronidazole 500 MG Oral Tablet [Flagyl] Flagyl 500 MG Flag yl 500 MG 12/08/2019 12:00:00 AM EST active 1 table t eCW1 ([facility]) Metronidazole 500 MG Oral Tablet [Flagyl] Flagyl 500 MG Flag yl 500 MG 12/08/2019 12:00:00 AM EST active 1 table t eCW1 ([facility]) 500 mg 12/08/2019 12:00:00 AM EST tablet [...] 12:00:00 AM EST active as directed eCW1 ([facility]) 3 ML Insulin, Aspart, Human 100 UNT/ML P en Injector [NovoLog] NovoLog Flexpen 100 UNIT/ML NovoLog Flexpen 100 UNIT/ML 11/28/2019 12:00:00 AM EST active as directed eCW1 ([facility]) 3 ML Insulin, Aspart, Human 100 UNT/ML P en Injector [NovoLog] NovoLog Flexpen 100 UNIT/ML NovoLog Flexpen 100 UNIT/ML 11/28/2019 12:00:00 AM EST active as directed eCW1 ([facility]) atorvastatin 20 MG Oral Tablet ATORVASTATIN CALCIUM 11/26/2019 1 2:00:00 AM EST tablet 30 TAKE ONE TABLET BY MOUTH EVERY D AY TAKE ONE TABLET BY MOUTH EVERY DAY SOLD: 12/11/2019 [facility] atorvastatin 20 MG Oral Tablet Atorvastatin Calcium 20 MG Atorvastatin Calcium 20 MG 11/25/2019 12:00:00 AM EST active 1 tablet eCW1 ([facility]) atorvastatin 20 MG Oral Tablet Atorvastatin Calcium 20 MG Atorvastatin Calcium 20 MG 11/25/2019 12:00:00 AM EST active 1 tablet eCW1 ([facility]) Glucometer UNK 11/25/2019 12:00:00 AM EST active as directed eCW1 ([facility]) atorvastatin 20 MG Oral Tablet Atorvastatin Calcium 20 MG Atorvastatin Calcium 20 MG 11/25/2019 12:00:00 AM EST active 1 tablet eCW1 ([facility]) Vitamin D (Ergocalciferol) 50 MCG (1999 UT) Vitamin D (Ergocalciferol) 50 MCG (2000 UT) 11/25/2019 12:00:00 AM EST active 1 capsule eCW1 ([facility]) Glucometer UNK 11/25/2019 12:00:00 AM EST active as directed eCW1 ([facility]) Vitamin D (Ergocalciferol) 50 MCG (2000 UT) Vitamin D (Ergocalciferol) 50 MCG (2000 UT) 11/25/2019 12:00:00 AM EST active 1 capsule eCW1 ([facility]) Glucometer UNK 11/25/2019 12:00:00 AM EST active as directed eCW1 ([facility]) Vitamin D (Ergocalciferol) 50 MCG (1999 UT) Vitamin D (Ergocalciferol) 50 MCG (2000 UT) 11/25/2019 12:00:00 AM EST active 1 capsule eCW1 ([facility]) Amlodipine 10 MG Oral Tablet AmLODIPine Besylate 10 MG AmLODIPine Besylate 10 MG 11/19/2019 12:00:00 AM EST active 1 tablet eCW1 ([facility]) Calcium Carbonate 500 MG Chewable Tablet [Tums] Tums 500 MG Tums 500 MG 11/19/2019 12:00:00 AM EST active 3 tablet eCW1 ([facility]) pantoprazole 40 MG Delayed Release Oral Tablet [Proton ix] Protonix 40 MG Protonix 40 MG 11/19/2019 12:00:00 AM EST active 1 tablet eCW1 ([facility]) Calcium Carbonate 500 MG Chewable Tablet [Tums] Tums 500 MG Tums 500 MG 11/19/2019 12:00:00 AM EST active 3 tablet eCW1 ([facility]) Sulfamethoxazole 800 MG / Trimethoprim 1 60 MG Oral Tablet [Bactrim] Bactrim DS 800-160 MG Bactrim DS 800-160 MG 11/19/2019 12:00:00 AM EST suspended 1 tablet eCW1 ([facility]) 40 mg 11/19/2019 12:00:00 AM EST tablet,delayed release (DR/EC) 30 TAKE ONE TABLET BY MOUTH EVERY DAY TAKE ONE TABLET BY MOUTH EVERY DAY SOLD: 11/20/2019 [facility] Calcium Carbonate 500 MG Chewable Tablet [Tums] Tums 500 MG Tums 500 MG 11/19/2019 12:00:00 AM EST active 3 tablet eCW1 ([facility]) pantoprazole 40 MG Delayed Release Oral Tablet [Proton ix] Protonix 40 MG Protonix 40 MG 11/19/2019 12:00:00 AM EST active 1 tablet eCW1 ([facility]) Amlodipine 10 MG Oral Tablet AmLODIPine Besylate 10 MG AmLODIPine Besylate 10 MG 11/19/2019 12:00:00 AM EST active 1 tablet eCW1 ([facility]) Amlodipine 10 MG Oral Tablet AmLODIPine Besylate 10 MG AmLODIPine Besylate 10 MG 11/19/2019 12:00:00 AM EST active 1 tablet eCW1 ([facility]) pantoprazole 40 MG Delayed Release Oral Tablet [Proton ix] Protonix 40 MG Protonix 40 MG 11/19/2019 12:00:00 AM EST active 1 tablet eCW1 ([facility]) 800-160 mg 11/18/2019 12:00:00 AM EST tablet [...] type / Coverage type Policy ID Covered alliance party ID Covered alliance party's relationship to arriaga Policy Arriaga Plan Information EMEDNY [id number] SP [id number] MEDICARE [id number] SP [id number] [facility] [id number] SP [id number] [facility] I [id number] Self [id number] OTHER B TRANSPLANT Self TRANSPLAN T Self Pay P UNAVAILABLE S UNAVAILA BLE MEDICARE [id number] SP [id number] MEDICAID [id number] SP [id number] MEDICARE C [id number] S [id number] [id number] MEDICAID M [id number] S [id number] MEDICARE [id number] SP [id number] K89 MEDICAID [id number] SP [id number] UNHC COMMUNITY PLAN [facility] [id number] SP [id number] SELF PAY ONLY [id number] SP [id number] [facility] [id number] SP [id number] [facility] Commercial [id number] Self [id number] MEDICARE PART A -O/P [id number] 18 [id number] UNHC COMMUNITY PLAN XIX [id number] 18 [id number] ANSI-Not a Secondary Insurance [id number] ANSI-Medicaid [id number] ANSI-Medicaid [id number] ANSI-Commercial [id number] ANSI-Medicaid [id number] [facility] Health Maintenance Organization ([facility] [id number] Self [id number] ANSI-Medicaid [id number] ANSI-Not a Secondary Insurance [id number] ANSI-Medicaid [id number] ANSI-Commercial [id number] ANSI-Medicaid [id number] MEDICARE MCA [id number] S [id number] K89 MEDICARE MCA [id number] S [id number] K89 [facility] [id number] S [id number] ANSI-Medicaid [id number] ANSI-Commercial [id number] ANSI-Medicaid [id number] ANSI-Not a Secondary Insurance [id number] ANSI-Medicaid [id number] MEDICARE [id number] SP [id number] [facility] [id number] Self [id number] ANSI-Commercial [id number] ANSI-Medicaid [id number] ANSI-Medicaid [id number] ANSI-Medicaid [id number] ANSI-Not a Secondary Insurance [id number] ANSI-Not a Secondary Insurance [id number] ANSI-Medicaid [id number] ANSI-Commercial [id number] ANSI-Medicaid [id number] ANSI-Medicaid [id number] [facility] Commercial [id number] Self [id number] ANSI-Medicaid [id number] ANSI-Commercial [id number] ANSI-Not a Secondary Insurance [id number] ANSI-Medicaid [id number] ANSI-Medicaid [id number] ANSI-Not a Secondary Insurance [id number] ANSI-Medicaid [id number] ANSI-Medicaid [id number] ANSI-Medicaid [id number] ANSI-Commercial [id number] [facility] [id number] ANSI-Commercial [id number] ANSI-Medicaid [id number] ANSI-Medicaid [id number] ANSI-Medicaid [id number] ANSI-Not a Secondary Insurance [id number] ANSI-Not a Secondary Insurance [id number] ANSI-Medicaid [id number] ANSI-Medicaid [id number] ANSI-Medicaid [id number] ANSI-Commercial [id number] ANSI-Commercial [id number] ANSI-Medicaid [id number] ANSI-Not a Secondary Insurance [id number] ANSI-Medicaid [id number] ANSI-Medicaid [id number] ANSI-Medicaid [id number] ANSI-Medicaid [id number] ANSI-Not a Secondary Insurance [id number] [id number] ANSI-Commercial [id number] ANSI-Medicaid [id number] [facility] Commercial [id number] Self [id number] ANSI-Not a Secondary Insurance [id number] ANSI-Commercial [id number] ANSI-Medicaid [id number] ANSI-Medicaid [id number] ANSI-Medicaid [id number] ANSI-Medicaid [id number] ANSI-Medicaid [id number] ANSI-Commercial [id number] ANSI-Medicaid [id number] ANSI-Not a Secondary Insurance [id number] [facility] Commercial [id number] [facility] [id number] ANSI-Commercial [id number] ANSI-Medicaid [id number] ANSI-Medicaid [id number] ANSI-Not a Secondary Insurance [id number] ANSI-Medicaid [id number] ANSI-Not a Secondary Insurance [id number]-[id number] [id number] ANSI-Medicaid [id number] ANSI-Medicaid [id number] ANSI-Medicaid [id number] ANSI-Commercial [id number]-[id number]-[id number]-[id number] [facility] [id number] S [id number] ANSI-Medicaid [id number] ANSI-Medicaid [id number] ANSI-Medicaid [id number] ANSI-Not a Secondary Insurance [id number]-[id number] ANSI-Commercial [id number]-[id number]-[id number] ANSI-Not a Secondary Insurance [id number]-[id number]-[id number] if9g52m [id number]-[id number] ANSI-Medicaid [id number] ANSI-Commercial [id number]-[id number] ANSI-Medicaid [id number] [facility] O [id number] S [id number] [facility] [id number] [id number] [facility] [id number] [facility] [id number] S [id number] [facility] [employer] (HMO) [id number] Self [id number] ANSI-Medicaid [id number] ANSI-Not a Secondary Insurance [id number]-[id number]-[id number] ANSI-Medicaid [id number] ANSI-Commercial [id number] MEDICAID [id number] SP [id number] [facility] Hmo Commercial [id number] Self [id number] [facility] Community Plan Commercial [id number] Self [id number] ANSI-Medicaid [id number] ANSI-Medicaid [id number] ANSI-Not a Secondary Insurance [id number] ANSI-Commercial [id number] MEDICAID [id number] S [id number] [facility] [id number] S [id number] ANSI-Commercial [id number] ANSI-Not a Secondary Insurance [id number] ANSI-Medicaid [id number] ANSI-Medicaid [id number] ANSI-Commercial [id number] ANSI-Medicaid [id number] ANSI-Not a Secondary Insurance [id number] ANSI-Medicaid [id number] MEDICAID [id number] SP [id number] SELF PAY ONLY - SP1 [id number] SP [id number] MEDICAID [id number] SP [id number] ANSI-Not a Secondary Insurance [id number] ANSI-Commercial [id number] ANSI-Medicaid [id number] ANSI-Medicaid [id number] ANSI-Commercial [id number] SELF-PAY UNAVAILABLE S UNAVAILA BLE SELF-PAY UNAVAILABLE S UNAVAILA BLE ANSI-Medicaid [id number] ANSI-Commercial [id number] SELF PAY ONLY [id number] SP [id number] [facility] [id number] SP [id number] [facility] UNK [employer] [id number] SP [id number] [employer] [id number] SP [id number] [employer] UNAVAILABLE SP UNAVA ILABLE OTHER [employer]EMPL[employer] [id number] SP [id number] Problems, Conditions, and Diagnoses Code Display Name Description Problem Type Effective Dates Data Source(s) D72.829 Leukocytosis Leukocytosis, unspecified type Problem 12/21/2019 12:00:00 AM EST eCW1 ([facility]) Type 2 diabetes mellitus with diabetic p olyneuropathy Type 2 diabetes mellitus with diabetic polyneuropathy Problem 12/04/2019 12:00:00 AM EST MEDE NT ([facility] [id number] Onychomycosis Onychomycosis Problem 12/04/2019 12:00:00 AM EST MEDENT ([facility] N87.1 [id number] Moderate cervical dysplasia Problem 11/03/19 12:00:00 AM EST eCW1 ([facility]) Pressure ulcer of other site, stage 2 Pressure u lcer of other site, stage 2 Problem 08/24/2019 12:00:00 AM EDT - 10/13/2019 12:00:00 AM ES T MEDENT ([facility] Surgeries/Procedures Procedure Description Date Indications Data Source(s) Office Visit, Est Pt., Level 2 FC 12/20/2019 12:00:00 AM EST eCW1 ([facility]) Office Visit, Est Pt., Level 3 PC 12/20/2019 12:00:00 AM EST eCW1 ([facility]) PARING/CUTTING BENIGN HYPERKERATOTIC LESION 1 11/30/19 12:00:00 AM EST MEDENT ([facility] DEBRIDEMENT NAIL ANY METHOD 6/> 11/30/2019 12:00:00 AM EST MEDENT ([facility] DEBRIDEMENT OPEN WOUND 20 SQ CM/< 11/30/2019 12:00:00 AM EST MEDENT ([facility] Transitional Care NO CHARGE Visit 11/22/2019 12:00:00 AM EST eCW1 ([facility]) TRANS CARE MGMT 7 DAY DISCH 11/21/2019 12:00:00 AM EST eCW1 ([facility]) DEBRIDEMENT OPEN WOUND 20 SQ CM/< 11/03/2019 12:00:00 AM EST MEDENT ([facility] DEBRIDEMENT OPEN WOUND 20 SQ CM/< 10/20/2019 12:00:00 AM EST MEDENT ([facility] DEBRIDEMENT OPEN WOUND 20 SQ CM/< 10/06/2019 12:00:00 AM EST MEDENT ([facility] Results ID Date Data Source [id number] 11/25/2020 06:02:00 PM EST [facility] Name Value Range Interpretation Code Description Data Lynn rce(s) Supporting Document(s) SARS coronavirus 2 RNA [Presence] in Res piratory specimen by ALEXIS with probe detection NEGATIVE [facility] This lab was ordered by [facility] a nd reported by [facility]. ID Date Data Source LIPASE 12/20/2019 12:00:00 AM EST eCW1 ([facility]) Name Value Range Interpretation Code Description Data Lynn rce(s) Supporting Document(s) [id number] LIPASE eCW1 ([facility]) ID Date Data Source Comprehensive Metabolic Profile (CMP) 12/20/2019 12:00:00 AM EST eCW1 ([facility]) Name Value Range Interpretation Code Description Data Lynn rce(s) Supporting Document(s) 5.83 0.55-1.30 CREATININE FOR GFR eCW1 ([facility]) 10.8 >60 GLOMERULAR FILTRATION RATE eCW 1 ([facility]) 25 7-18 BLOOD UREA NITROGEN eCW1 ([facility]) 494 70-100 GLUCOSE, FASTING eCW1 ([facility]) 30 21-32 CARBON DIOXIDE LEVEL eCW1 ([facility]) 3.3 3.5-5.1 POTASSIUM SERUM eCW1 ([facility]) 86 98-107 CHLORIDE LEVEL eCW1 ([facility]) 127 136-145 SODIUM LEVEL eCW1 ([facility]) 87 45-117 ALKALINE PHOSPHATASE eCW1 ([facility]) 8.5 8.5-10.1 CALCIUM LEVEL eCW1 ([facility]) 16 12-78 ALT/SGPT eCW1 ([facility]) 21 7-37 AST/SGOT eCW1 ([facility]) 2.6 3.2-5.2 ALBUMIN eCW1 ([facility]) 0.48 1.00-1.93 ALBUMIN/GLOBULIN RATIO eCW1 ([facility]) 8.0 6.4-8.2 TOTAL PROTEIN eCW1 ([facility]) 0.6 0.2-1.0 BILIRUBIN,TOTAL eCW1 ([facility]) ID Date Data Source CBC with Differential 12/20/2019 12:00:00 AM EST eCW1 ([facility]) Name Value Range Interpretation Code Description Data Lynn rce(s) Supporting Document(s) 12.3 4.0-10.0 WHITE BLOOD COUNT eCW1 ([facility]) 28.7 36.0-47.0 HEMATOCRIT eCW1 ([facility]) 3.13 4.00-5.40 RED BLOOD COUNT eCW1 ([facility]) 9.6 12.0-15.5 HEMOGLOBIN eCW1 ([facility]) 30.7 27.0-33.0 MEAN CORPUSCULAR HEMOGLOB IN eCW1 ([facility]) 13.1 11.5-14.5 RED CELL DISTRIBUTION WID TH eCW1 ([facility]) 91.7 80.0-96.0 MEAN CORPUSCULAR VOLUME e CW1 ([facility]) 33.4 32.0-36.5 MEAN CORPUSCULAR HGB CONC eCW1 ([facility]) 16.6 24.0-44.0 LYMPH % eCW1 ([facility]) 5.4 0.0-5.0 MONO % eCW1 ([facility]) 478 150-450 PLATELET COUNT, AUTOMATED eCW1 ([facility]) 74.0 36.0-66.0 NEUTROPHILS % eCW1 ([facility]) 9.1 1.5-8.5 NEUTROPHILS # eCW1 ([facility]) 2.1 1.5-5.0 LYMPH # eCW1 ([facility]) 3.2 0.0-3.0 EOS % eCW1 ([facility]) 0.4 0.0-1.0 BASO % eCW1 ([facility]) 0.7 0.0-0.8 MONO # eCW1 ([facility]) 0.4 0.0-0.5 EOS # eCW1 ([facility]) 0.1 0.0-0.2 BASO # eCW1 ([facility]) ID Date Data Source VITAMIN D 25-HYDROXY 11/21/2019 12:00:00 AM EST eCW1 ([facility]) Name Value Range Interpretation Code Description Data Lynn rce(s) Supporting Document(s) 18.5 30.0-100.0 TOTAL 25(OH) VITAMIN D eC W1 ([facility]) ID Date Data Source LIPID PANEL (CARDIAC RISK) 11/21/2019 12:00:00 AM EST eCW1 ( [facility]) Name Value Range Interpretation Code Description Data Lynn rce(s) Supporting Document(s) Cholesterol in LDL [Mass/volume] in Serum or Plasma by calculation 149.4 <100 LDL CHOLESTEROL eCW1 ([facility]) Triglyceride [Mass/volume] in Serum or Plasma by calculation 747 <150 TRIGLYCERIDES LEVEL eCW1 ([facility]) Cholesterol [Moles/volume] in Serum or Plasma 215 <200 CHOLESTEROL LEVEL eCW1 ([facility]) 6.935 <5 CHOLESTEROL RISK RATIO eCW1 ([facility]) Cholesterol in HDL [Moles/volume] in Serum or Plasma 31 >40 HDL CHOLESTEROL eCW1 ([facility]) 184 NON-HDL-C eCW1 ([facility]) ID Date Data Source [id number] 11/21/2019 12:00:00 AM EST eCW1 ([facility]) Name Value Range Interpretation Code Description Data Lynn rce(s) Supporting Document(s) Hemoglobin A1c/Hemoglobin.total in Blood 10.3 HEMOGLOBIN A1c eCW1 ([facility]) Procedure Vital Signs ID Date Data Source UNK Name Value Range Interpretation Code Description Data Source(s) Diastolic blood pressure 90 mm[Hg] 90 mm[Hg] eCW1 ([facility]) Systolic blood pressure 178 mm[Hg] 178 mm[Hg] e CW1 ([facility]) Body temperature 97.2 [degF] 97.2 [degF] eCW1 ( [facility]) Respiratory rate 18 /min 18 /min eCW1 ([facility]) Heart rate 93 /min 93 /min eCW1 ([facility]) Body mass index (BMI) [Ratio] 28.03 kg/m2 28.03 kg/m2 W1 ([facility]) Body height 69 [in_us] 69 [in_us] eCW1 ([facility]) Body weight Measured 189.8 [lb_av] 189.8 [lb_av ] eCW1 ([facility]) Diastolic blood pressure 78 mm[Hg] 78 mm[Hg] eCW1 ([facility]) Systolic blood pressure 140 mm[Hg] 140 mm[Hg] e CW1 ([facility]) Body mass index (BMI) [Ratio] 28.91 kg/m2 28.91 kg/m2 eCW1 ([facility]) Body height 69 [in_us] 69 [in_us] eCW1 ([facility]) Body weight Measured 195.8 [lb_av] 195.8 [lb_av ] eCW1 ([facility]) Diastolic blood pressure 100 mm[Hg] 100 mm[Hg] eCW1 ([facility]) Systolic blood pressure 180 mm[Hg] 180 mm[Hg] e CW1 ([facility]) Body temperature 95.4 [degF] 95.4 [degF] eCW1 ( [facility]) Respiratory rate 18 /min 18 /min eCW1 ([facility]) Heart rate 88 /min 88 /min eCW1 ([facility]) Body mass index (BMI) [Ratio] 30.45 kg/m2 30.45 kg/m2 W1 ([facility]) Body height 69 [in_us] 69 [in_us] eCW1 ([facility]) Body weight Measured 206.2 [lb_av] 206.2 [lb_av ] eCW1 ([facility]) Diastolic blood pressure 92 mm[Hg] 92 mm[Hg] eCW1 ([facility]) Systolic blood pressure 162 mm[Hg] 162 mm[Hg] e CW1 ([facility]) Body mass index (BMI) [Ratio] 30.62 kg/m2 30.62 kg/m2 W1 ([facility]) Body height 69 [in_us] 69 [in_us] eCW1 ([facility]) Body weight Measured 207.4 [lb_av] 207.4 [lb_av ] eCW1 ([facility]) Patient Treatment Plan of Care Planned Activity Planned Date Details Description Data Source (s) Levofloxacin 250 MG Oral Tablet 12/27/2019 12:00:00 AM EST eCW1 ([facility]) Metronidazole 500 MG Oral Tablet [Flagyl] 12/08/2019 12:00:00 AM ES T eCW1 ([facility]) 3 ML Insulin, Aspart, Human 100 UNT/ML Pen Injector [N ovoLog] 11/28/2019 12:00:00 AM EST eCW1 ([facility]) atorvastatin 20 MG Oral Tablet 11/25/2019 12:00:00 AM EST eCW1 ([facility]) Glucometer 11/25/2019 12:00:00 AM EST e CW1 ([facility]) Vitamin D (Ergocalciferol) 50 MCG (1999 [place]) 11/25/2019 12:00:00 AM EST eCW1 ([facility])
[2020-11-30 23:24] LABS: BASO # 0.1 10^3/uL (0.0-0.2); BASO % 0.3 % (0.0-1.0); EOS # 0.2 10^3/uL (0.0-0.5); EOS % 0.7 % (0.0-3.0); HEMATOCRIT 22.9 % (36.0-47.0); HEMOGLOBIN 7.5 g/dl (12.0-15.5); LYMPH % 8.8 % (24.0-44.0); MEAN CORPUSCULAR HEMOGLOBIN 30.7 pg (27.0-33.0); MEAN CORPUSCULAR HGB CONC 32.8 g/dl (32.0-36.5); MEAN CORPUSCULAR VOLUME 93.9 fl (80.0-96.0); MONO # 1.2 10^3/uL (0.0-0.8); MONO % 5.2 % (0.0-5.0); NEUTROPHILS # 19.1 10^3/uL (1.5-8.5); NEUTROPHILS % 83.8 % (36.0-66.0); PLATELET COUNT, AUTOMATED 594 10^3/uL (150-450); RED BLOOD COUNT 2.44 10^6/uL (4.00-5.40); WHITE BLOOD COUNT 22.8 10^3/uL (4.0-10.0)
[2020-11-30 23:55] LABS: ALBUMIN 2.2 GM/DL (3.2-5.2); ALT/SGPT 31 U/L (12-78); BILIRUBIN,DIRECT 0.9 MG/DL (0.0-0.2); BILIRUBIN,TOTAL 1.2 MG/DL (0.2-1.0); BLOOD UREA NITROGEN 11 MG/DL (7-18); CALCIUM LEVEL 8.4 MG/DL (8.5-10.1); CARBON DIOXIDE LEVEL 30 MEQ/L (21-32); CHLORIDE LEVEL 94 MEQ/L (98-107); CREATININE FOR GFR 2.84 MG/DL (0.55-1.30); GLOMERULAR FILTRATION RATE 24.7 (>60); GLUCOSE, FASTING 196 MG/DL (70-100); LIPASE 104 U/L (73-393); POTASSIUM SERUM 3.2 MEQ/L (3.5-5.1); SODIUM LEVEL 136 MEQ/L (136-145); TOTAL PROTEIN 6.4 GM/DL (6.4-8.2)
[2020-12-01] VITALS (8 sets, daily range): BP systolic 123–143; BP diastolic 66–86
[2020-12-01 00:03] LABS: ERYTHROCYTE SEDIMENTATION RATE 127 mm/hr (0-20)
--- NOTE | 2020-12-01 01:11 | REPVR ---
PROCEDURE INFORMATION: Exam: XR Chest, 2 Views Exam date and time: 12/01/2020 1:03 AM Age: 35 years old Clinical indication: Shortness of breath; Additional info: DM, ulcer lateral aspect TECHNIQUE: Imaging protocol: XR of the chest Views: 2 views. COMPARISON: CR PORTABLE CHEST X-RAY 11/25/2020 6:30 PM FINDINGS: Tubes, catheters and devices: There is a dual lumen right internal jugular central line terminating in the superior vena cava. Lungs: Unremarkable. No consolidation. No pulmonary edema. Pleural spaces: Unremarkable. No pleural effusion. No pneumothorax. Heart/Mediastinum: Unremarkable. No cardiomegaly. Bones/joints: Unremarkable. IMPRESSION: No acute findings. Electronically signed by: Garland Love On 12/01/2020 01:11:29 AM
--- NOTE | 2020-12-01 01:20 | REPVR ---
PROCEDURE INFORMATION: Exam: XR Right Foot Complete Exam date and time: 12/01/2020 1:03 AM Age: 35 years old Clinical indication: Pain; Foot; Bilateral; Additional info: DM ulcer lateral aspect TECHNIQUE: Imaging protocol: XR Right foot. Views: 3 or more views. COMPARISON: No relevant prior studies available. FINDINGS: Bones/joints: There is no fracture, dislocation, or bony destructive changes. The Lisfranc alignment is within normal limits. The right 1st through to 5th toes are held in extension at the metatarsophalangeal joints. Soft tissues: There is soft tissue swelling in the right forefoot. No soft tissue gas is identified. IMPRESSION: Soft tissue swelling in the right forefoot. PROCEDURE INFORMATION: Exam: XR Left Foot Complete Exam date and time: 12/01/2020 1:03 AM Age: 35 years old Clinical indication: Pain; Foot; Bilateral; Additional info: DM ulcer lateral aspect TECHNIQUE: Imaging protocol: XR Left foot. Views: 3 or more views. COMPARISON: No relevant prior studies available. FINDINGS: Bones/joints: There is no fracture of the left foot. There are erosive changes involving the base of the proximal phalanx of the left 5th toe and distal portion of the left 5th metatarsal, and there is absence of the head of the left 5th metatarsal. There is mild medial subluxation at the left 5th metatarsophalangeal joint. All of the toes are held in extension at the metatarsophalangeal joints. Soft tissues: There is a soft tissue ulcer along the lateral aspect of the left 5th metatarsophalangeal joint with soft tissue gas and soft tissue swelling in this region. IMPRESSION: 1. Erosive changes involving the base of the proximal phalanx of the left 5th toe and distal portion of the left 5th metatarsal, which can be seen with osteomyelitis. 2. Soft tissue ulcer along the lateral aspect of the left 5th metatarsophalangeal joint with soft tissue gas and soft tissue swelling in this region, which can be seen with a gas-forming infection. Electronically signed by: Garland Love On 12/01/2020 01:20:42 AM
[2020-12-01 01:23] LABS: OSMOLALITY SERUM 284 MOSM/KG (275-295)
[2020-12-01 01:26] LABS: VENOUS BASE EXCESS 2.7 (-2.0-2.0); VENOUS HCO3 25.6 MEQ/L (23.0-27.0); VENOUS O2 SATURATION 99.1 % (60.0-80.0); VENOUS PARTIAL PRESSURE CO2 32.4 mmHg (38.0-50.0); VENOUS PARTIAL PRESSURE O2 125.5 mmHg (30.0-50.0); VENOUS PH 7.515 UNITS (7.330-7.430); VENOUS STANDARD HCO3 26.9 MEQ/L; VENOUS TOTAL CO2 26.6 MEQ/L (24.0-28.0)
[2020-12-01 01:29] LABS: ACETONE/KETONE 26.26 MG/DL (<2.81); CK-MB VALUE MASS 1.6 NG/ML (<3.6); CPK CREATINE PHOSPHOKINASE 182 U/L (26-192); MAGNESIUM LEVEL 1.9 MG/DL (1.8-2.4); MB/CK RELATIVE INDEX 0.88 (< OR =4); NT-PRO BNP > 175000 PG/ML (<125); TROPONIN I 0.05 NG/ML (< 0.10)
[2020-12-01] MEDS ORDERED: cefTRIAXone SOD 2 GM in D5W MINI-BAG PLUS 50 ML IV ONE (01:45)
[2020-12-01] MEDS ORDERED: GLUCOSE 4GM CHEW TABLET PO PRN (02:30)
[2020-12-01] MEDS ORDERED: GLUCAGON INJ 1MG VIAL SC PRN (02:30)
[2020-12-01] MEDS ORDERED: MOM 30ML SUSPENSION UDC PO PRN (02:30)
[2020-12-01] MEDS ORDERED: MAALOX 30 ML SUSP *UDC PO PRN (02:30)
[2020-12-01] MEDS ORDERED: DEXTROSE 50% 50 ML SYRINGE IV PRN (02:30)
--- NOTE | 2020-12-01 02:32 | HPEPDOC ---
[facility] Medical History & Physical Date of Admission Dec 01, 2020 Date of Service: Dec 01, 2020 Other Provider Brissa CHAVEZ Attending Physician: MICHAEL GOLD MD History and Physical TIME OF SERVICE: 425am CHIEF COMPLAINT: foot ulcer HISTORY OF PRESENT ILLNESS: This 37 yr old F presented w c/o 2 day in duration left foot and ankle swelling along with a left foot ulcer; she denied having fevers, chills n/v. Shortly after arrival in the ER she c/o of right flank pain and at the time of my evaluation she added that she has been having chest pain and cough for an unspecified amount of time. She attended dialysis yesterday REVIEW OF SYSTEMS: 12-point review of systems negative except as listed in HPI PAST MEDICAL /SURGICAL HISTORY ESRD HD TTS / Right Arm Fistula / Permacath IDDM1 with neuropathy, proliferative retinopathy s/p photocoagulation & hx of DKA Pulm HTN PASP (30-40) Trace MVR Trace AVR Trace TVR Unspecified Brain Surgery for cyst Caesarean Section SOCIAL HISTORY: Tobacco use: Nonsmoker. ETOH: Denies Illicit drug use: Denies FAMILY HISTORY: Mother history of type 2 diabetes , father COPD and hypertension, brother with epilepsy ALLERGIES: Please see below. HOME MEDICATIONS: Please see below. PHYSICAL EXAMINATION: Vital Signs Date Time Temp Pulse Resp B/P (MAP) Pulse Ox O2 Delivery O2 Flow Rate FiO2 11/30/20 21:28 97.6 88 18 132/61 (84) 99 Room Air GENERAL APPEARANCE: well nourished/ well developed/ NAD HEENT: EOMI / mask covering lower face CARDIOVASCULAR: RRR/NMRG/ dorsalis pedis pulses difficult to palpate LUNGS: occasionally coughing/ breath sounds diminished at lung bases / no crackles ABDOMEN: soft & NT MUSCULOSKELETAL: VENKATESH x 4 / left ankle swollen compared with right and tender with palpation / left foot swollen/ / INTEGUMENT: left 5th toe dusky in color and swollen when c/o other toes, there is an ulcer at on the planter aspect of the left foot at the base of the 5th toe NEUROLOGICAL:CN2-12 intact /speech not dysarthric PSYCHIATRIC: A&ox 3 able to understand and follow all commands LABORATORY DATA: 11/30/20 23:01 Immature Granulocyte % (Auto) 1.2, Neutrophils (%) (Auto) 83.8H, Lymphocytes (%) (Auto) 8.8L, Monocytes (%) (Auto) 5.2H, Eosinophils (%) (Auto) 0.7, Basophils (%) (Auto) 0.3, Neutrophils # (Auto) 19.1H, Lymphocytes # (Auto) 2.0, Monocytes # (Auto) 1.2H, Eosinophils # (Auto) 0.2, Basophils # (Auto) 0.1, Nucleated Red Blood Cells % (auto) 0.0, Erythrocyte Sedimentation Rate 127H, Anion Gap 12, Glomerular Filtration Rate 24.7L, Osmolality 284, Lactic Acid Level 1.7, Calcium Level 8.4L, Magnesium Level 1.9, Total Bilirubin 1.2H, Direct Bilirubin 0.9H, Aspartate Amino Transf (AST/SGOT) 28, Alanine Aminotransferase (ALT/SGPT) 31, Alkaline Phosphatase 464H, Total Creatine Kinase 182, Creatine Kinase MB 1.6, Creatine Kinase MB Relative Index 0.88, Troponin I 0.05, C-Reactive Protein, Quantitative 26.70H, SO-Ksi-F-Type Natriuretic Peptide > 581200A, Total Protein 6.4, Albumin 2.2L, Albumin/Globulin Ratio 0.5L, Lipase 104, B-Hydroxybutyrate 26.26H 12/01/20 01:20: Blood Gas Bicarbonate Standard 26.9, Venous Blood pH 7.515H, Venous Blood Partial Pressure CO2 32.4L, Venous Blood Partial Pressure O2 125.5H, Venous Blood Total Carbon Dioxide 26.6, Venous Blood HCO3 25.6, Venous Blood Oxygen Saturation 99.1H, Venous Blood Base Excess 2.7H 12/01/20 01:46: IMAGING: Xray left foot IMPRESSION: Soft tissue swelling in the right forefoot. Chest xray IMPRESSION: No acute findings. KUB IMPRESSION: 1. No acute radiographic findings in the abdomen or pelvis. 2. No radiographic evidence for a bowel obstruction. MICROBIOLOGY: COVID NEG ASSESSMENT: Ms. Mireles is a 35 yr old w a hx of IDDM1 w neuropathy, retinopathy, Pulm HTN and Essential HTN who is admitted for management of suspected left 5th toe osteomyelitis; she was also c/o chest pain. PLAN: 1. Suspected left 5th toe osteomyelitis vs cellulitis vs wet gangrene Plan: admit to medical floor / f/u blood cx / Cefazolin and Vancomycin / will ask the day time to consult to discuss MRI of left foot and left ankle w contrast vs CT w contrast prior to dialysis 2. Chest pain The site of the permacath doesnt appear infected Echo in 2018 showed normal EF w Pulm HTN PASP (30-40 Trop wnl Elevated BNP likely due to reduced renal clearance of BNP in the setting of ESRD Plan: f/u Echo to determine if her Pulm HTN is getting worse or if she has developed HFpEF or HFrEF 3. ESRD HD TTS / Right Arm Fistula / Permacath Plan: will ask the day time team to consult / casimiro 4. Anemia of Chronic dz Iron panel done a few days ago was c/w anemia of chronic dz w low iron Plan: f/u repeat Hg, stool occult / once infection has been treated the day time team may discuss EOP agents and or Venofer with Nephrology 5. IDDM1 with neuropathy, proliferative retinopathy s/p photocoagulation & hx of DKA A1C 10.2% a few days ago Plan: diabetic diet / f/u accuchecks / hypoglycemia protocol / sliding scale insulin / hold oral anti-glycemic / long acting insulin 5 units QHS / PCP may consider out pt Endo referral to switch the patient from basal bolus injection to continuous subcutaneous insulin infusion which has been shown to produced small improvements in A1C, improve QOL and reduce episodes of severe hypoglycemia 6. Renovascular HTN Plan: Metoprolol, Nifedipine 7.Thrombocytosis likely reactive due to infection DVT px w SCDs Dispo: home after more than 2 midnights stay Home Medications Scheduled Ergocalciferol (Vitamin D2) (Vitamin D2) 50,000 Units Cap, 1 CAP PO QWEEK THURSDAY Furosemide (Furosemide) 80 Mg Tablet, 80 MG PO BID Hydralazine HCl (Hydralazine HCl) 25 Mg Tablet, 50 MG PO TID Insulin Glargine,Hum.rec.anlog (Lantus Solostar) 100 Unit/1 Ml Insuln.pen, 5 UNITS SC QHS Insulin Human Lispro (Novolog) 100 Unit/1 Ml Vial, 1 DOSE SC ASDIRECTED PER SLIDING SCALE Metoprolol Tartrate (Metoprolol Tartrate) 100 Mg Tablet, 100 MG PO BID Nifedipine (Nifedipine ER) 90 Mg Tablet.er, 90 MG PO DAILY Sevelamer Carbonate (Sevelamer Carbonate) 800 Mg Tablet, 800 MG PO BID with a snack Sevelamer Carbonate (Sevelamer Carbonate) 800 Mg Tablet, 1,600 MG PO TID WITH MEALS Allergies Coded Allergies: cinacalcet (Verified Allergy, Unknown, 11/25/20) latex (Verified Allergy, Unknown, 11/03/19) morphine (Verified Allergy, Unknown, 11/03/19) peanut (Verified Allergy, Unknown, 11/25/20) TAPE (Verified Adverse Reaction, Intermediate, IRRITATES SKIN, 11/03/19) USE PAPER TAPE ONL;Y A-FIB/CHADSVASC A-FIB History Current/History of A-Fib/PAF?: No Current PO Anticoag Therapy: No MICHAEL GOLD MD Dec 01, 2020 02:32
[2020-12-01 02:33] LABS: RSV AMPLIFICATION NEGATIVE (NEGATIVE)
--- OUTSIDE RECORDS SUMMARY | 2020-12-01 02:44 | CCD ---
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 Name Role Phone [place], JLAM Unavailable Unavailable Thankachan, Reeba MANAGER PAID Unavailable Unavailable Thankachan, Reeba MANAGER PAID Unavailable Unavailable Thankachan, Reeba MANAGER PAID Unavailable Unavailable Thankachan, Reeba MANAGER PAID Unavailable Unavailable Thankachan, Reeba MANAGER PAID Unavailable Unavailable Thankachan, Reeba MANAGER PAID Unavailable Unavailable Thankachan, Reeba MANAGER PAID Unavailable Unavailable Thankachan, Reeba MANAGER PAID Unavailable Unavailable Thankachan, Reeba MANAGER PAID Unavailable Unavailable Thankachan, Reeba MANAGER PAID Unavailable Unavailable Thankachan, Reeba MANAGER PAID Unavailable Unavailable Thankachan, Reeba MANAGER PAID Unavailable Unavailable Thankachan, Reeba MANAGER PAID Unavailable Unavailable Thankachan, Reeba MANAGER PAID Unavailable Unavailable Thankachan, Reeba MANAGER PAID Unavailable Unavailable Thankachan, Reeba MANAGER PAID Unavailable Unavailable Thankachan, Reeba MANAGER PAID Unavailable Unavailable Thankachan, Reeba MANAGER PAID Unavailable Unavailable Thankachan, Reeba MANAGER PAID Unavailable Unavailable Thankachan, Reeba MANAGER PAID Unavailable Unavailable Thankachan, Reeba MANAGER PAID Unavailable Unavailable Thankachan, Reeba MANAGER PAID Unavailable Unavailable Thankachan, Reeba MANAGER PAID Unavailable Unavailable Thankachan, Reeba MANAGER PAID Unavailable Unavailable Thankachan, Reeba MANAGER PAID Unavailable Unavailable Thankachan, Reeba MANAGER PAID Unavailable Unavailable Thankachan, Reeba MANAGER PAID Unavailable Unavailable Thankachan, Reeba MANAGER PAID Unavailable Unavailable Thankachan, Reeba MANAGER PAID Unavailable Unavailable Thankachan, Reeba MANAGER PAID Unavailable Unavailable Thankachan, Reeba MANAGER PAID Unavailable Unavailable Thankachan, Reeba MANAGER PAID Unavailable Unavailable Thankachan, Reeba MANAGER PAID Unavailable Unavailable Thankachan, Reeba MANAGER PAID Unavailable Unavailable Thankachan, Reeba MANAGER PAID Unavailable Unavailable Thankachan, Reeba MANAGER PAID Unavailable Unavailable Thankachan, Reeba MANAGER PAID Unavailable Unavailable Thankachan, Reeba MANAGER PAID Unavailable Unavailable Thankachan, Reeba MANAGER PAID Unavailable Unavailable Thankachan, Reeba MANAGER PAID Unavailable Unavailable Thankachan, Reeba MANAGER PAID Unavailable Unavailable Thankachan, Reeba MANAGER PAID Unavailable Unavailable Thankachan, Reeba MANAGER PAID Unavailable Unavailable Thankachan, Reeba MANAGER PAID Unavailable Unavailable Re-disclosure Warning The records that [...] is protected by Article 27-F of the [facility] Public Health law. If you continue you may have access to information: Regarding HIV / AIDS; Provided by facilities licensed or operated by the [facility] Office of Mental Health; or Provided by the [facility] Office for People With Developmental Disabilities. If such information is present, then the following [facility] mandated warning applies: This information has been [...] law may result in a fine or snf sentence or both. A general authorization for the release of medical or other information is NOT sufficient authorization for further disc losure. Allergies and Adverse Reactions Type Description Substance Reaction Status Data Source(s ) Morphine Morphine Morphine Sulfate 15 MG Extended Release O ral Tablet Rash Active eCW1 ([facility]) Latex Latex Latex Unknown Active eCW1 ([facility]) Morphine Morphine Morphine Sulfate 15 MG Extended Release O ral Tablet Rash Active eCW1 ([facility]) Latex Latex Latex Unknown Active eCW1 ([facility]) Carvedilol Carvedilol carvedilol 3.125 MG Oral Tablet Dizziness Acti ve eCW1 ([facility]) Morphine Morphine Morphine Sulfate 15 MG Extended Release O ral Tablet Rash Active eCW1 ([facility]) Latex Latex Latex Unknown Active eCW1 ([facility]) Morphine Morphine Morphine Sulfate 15 MG Extended Release O ral Tablet Rash Active eCW1 ([facility]) Latex Latex Latex Unknown Active eCW1 ([facility]) Family History Family Member Name Family Member Gender Family Member Status Date o f Status Description Data Source(s) Unknown Unknown Problem MEDENT ([facility]) Unknown Male Problem MEDENT ([facility] Unknown Male Problem MEDENT ([facility]) () Encounters Encounter Providers Location Date Indications Data Source(s ) Outpatient Attender: [facility] 04/10/2020 07:59:44 PM EDT [facility] 03/07/2020 12:00:00 AM [facility] Outpatient Attender: [facility] 02/14/2020 03:47:00 [place] [address] [address] 02/02/2020 12:00:00 AM EDT eCW1 ([facility]) Outpatient Attender: [facility] 01/13/2020 02:35:01 PM EDT [facility] Attender: [facility] 01/13/2020 02:34:02 PM EDT [facility] 01/13/2020 02:28:01 PM EDT [facility] Referrer: Josh Chan NP 12/29/2019 08:13: 00 PM EST [facility] [address] [address] 12/27/2019 12:00:00 AM EST eCW1 ([facility] [address] [address] 12/26/2019 12:00:00 AM EST eCW1 ([facility]) [address] [place] [address] 12/22/2019 12:00:00 AM EST eCW1 ([facility]) [address] [place] [address] 12/20/2019 12:00:00 AM EST eCW1 ([facility]) [address] [address] 12/20/2019 12:00:00 AM EST eCW1 ([facility]) [address] [address] 12/19/2019 12:00:00 AM EST eCW1 ([facility]) [address] [address] 12/15/2019 12:00:00 AM EST eCW1 ([facility]) [address] [address] 12/13/2019 12:00:00 AM EST eCW1 ([facility]) [address] [address] 12/08/2019 12:00:00 AM EST eCW1 ([facility]) [address] [address] 12/05/2019 12:00:00 AM EST eCW1 ([facility]) [address] [address] 11/28/2019 12:00:00 AM EST eCW1 ([facility]) [address] [address] 11/28/2019 12:00:00 AM EST eCW1 ([facility]) Outpatient Referrer: Josh Chan NP 11/23/2019 10:37: 00 AM EST [facility] [address] [address] 11/22/2019 12:00:00 AM EST eCW1 ([facility]) [address] [address] 11/21/2019 12:00:00 AM EST eCW1 ([facility]) [address] [address] 11/15/2019 12:00:00 AM EST eCW1 ([facility]) Outpatient Referrer: Josh Chan NP 11/10/2019 03:45: 00 PM EST [facility] Outpatient Referrer: Josh Chan NP 11/07/2019 09:29: 00 AM EST [facility] [address] [address] 11/03/2019 12:00:00 AM EST eCW1 ([facility]) [facility] Resident [address] [place] [address] 10/24/2019 12:00:00 AM EST eCW1 ([facility]) [address] [address] 10/07/2019 12:00:00 AM EST eCW1 ([facility]) Outpatient Referrer: Josh Chan NP 10/05/2019 [...] THE SKIN DIRECTED, CONTINUE PER ISS AT [facility] MAXIMUM DAILY DOSE = 60 UNITS 1 UNIT UNDER THE SKIN DIRECTED, KEI NUE PER ISS AT [facility] MAXIMUM DAILY DOSE = 60 UNITS SOLD: 11/29/2020 [facility] Levofloxacin 250 MG Oral Tablet Levofloxacin 250 MG 12/27/2019 1 2:00:00 AM EST active 1 tablet eCW1 ([facility]) Losartan Potassium 100 MG Oral Tablet LOSARTAN POTASSIUM 12:00:00 AM EST tablet 30 TAKE ONE TABLET BY MOUTH NHAN DAY TAKE ONE TABLET BY MOUTH EVERY DAY SOLD: 12/22/2019 [facility] Metronidazole 500 MG Oral Tablet [Flagyl] Flagyl 500 MG Flag yl 500 MG 12/08/2019 12:00:00 AM EST active 1 table t eCW1 ([facility]) Metronidazole 500 MG Oral Tablet [Flagyl] Flagyl 500 MG Flag yl 500 MG 12/08/2019 12:00:00 AM EST active 1 table t eCW1 ([facility]) 500 mg 12/08/2019 12:00:00 AM EST tablet [...] 12:00:00 AM EST active as directed eCW1 ([facility]) 3 ML Insulin, Aspart, Human 100 UNT/ML P en Injector [NovoLog] NovoLog Flexpen 100 UNIT/ML NovoLog Flexpen 100 UNIT/ML 11/28/2019 12:00:00 AM EST active as directed eCW1 ([facility]) 3 ML Insulin, Aspart, Human 100 UNT/ML P en Injector [NovoLog] NovoLog Flexpen 100 UNIT/ML NovoLog Flexpen 100 UNIT/ML 11/28/2019 12:00:00 AM EST active as directed eCW1 ([facility]) atorvastatin 20 MG Oral Tablet ATORVASTATIN CALCIUM 11/26/2019 1 2:00:00 AM EST tablet 30 TAKE ONE TABLET BY MOUTH EVERY D AY TAKE ONE TABLET BY MOUTH EVERY DAY SOLD: 12/11/2019 [facility] atorvastatin 20 MG Oral Tablet Atorvastatin Calcium 20 MG Atorvastatin Calcium 20 MG 11/25/2019 12:00:00 AM EST active 1 tablet eCW1 ([facility]) atorvastatin 20 MG Oral Tablet Atorvastatin Calcium 20 MG Atorvastatin Calcium 20 MG 11/25/2019 12:00:00 AM EST active 1 tablet eCW1 ([facility]) Glucometer UNK 11/25/2019 12:00:00 AM EST active as directed eCW1 ([facility]) atorvastatin 20 MG Oral Tablet Atorvastatin Calcium 20 MG Atorvastatin Calcium 20 MG 11/25/2019 12:00:00 AM EST active 1 tablet eCW1 ([facility]) Vitamin D (Ergocalciferol) 50 MCG (1999 UT) Vitamin D (Ergocalciferol) 50 MCG (2000 UT) 11/25/2019 12:00:00 AM EST active 1 capsule eCW1 ([facility]) Glucometer UNK 11/25/2019 12:00:00 AM EST active as directed eCW1 ([facility]) Vitamin D (Ergocalciferol) 50 MCG (2000 UT) Vitamin D (Ergocalciferol) 50 MCG (2000 UT) 11/25/2019 12:00:00 AM EST active 1 capsule eCW1 ([facility]) Glucometer UNK 11/25/2019 12:00:00 AM EST active as directed eCW1 ([facility]) Vitamin D (Ergocalciferol) 50 MCG (1999 UT) Vitamin D (Ergocalciferol) 50 MCG (2000 UT) 11/25/2019 12:00:00 AM EST active 1 capsule eCW1 ([facility]) Amlodipine 10 MG Oral Tablet AmLODIPine Besylate 10 MG AmLODIPine Besylate 10 MG 11/19/2019 12:00:00 AM EST active 1 tablet eCW1 ([facility]) Calcium Carbonate 500 MG Chewable Tablet [Tums] Tums 500 MG Tums 500 MG 11/19/2019 12:00:00 AM EST active 3 tablet eCW1 ([facility]) pantoprazole 40 MG Delayed Release Oral Tablet [Proton ix] Protonix 40 MG Protonix 40 MG 11/19/2019 12:00:00 AM EST active 1 tablet eCW1 ([facility]) Calcium Carbonate 500 MG Chewable Tablet [Tums] Tums 500 MG Tums 500 MG 11/19/2019 12:00:00 AM EST active 3 tablet eCW1 ([facility]) Sulfamethoxazole 800 MG / Trimethoprim 1 60 MG Oral Tablet [Bactrim] Bactrim DS 800-160 MG Bactrim DS 800-160 MG 11/19/2019 12:00:00 AM EST suspended 1 tablet eCW1 ([facility]) 40 mg 11/19/2019 12:00:00 AM EST tablet,delayed release (DR/EC) 30 TAKE ONE TABLET BY MOUTH EVERY DAY TAKE ONE TABLET BY MOUTH EVERY DAY SOLD: 11/20/2019 [facility] Calcium Carbonate 500 MG Chewable Tablet [Tums] Tums 500 MG Tums 500 MG 11/19/2019 12:00:00 AM EST active 3 tablet eCW1 ([facility]) pantoprazole 40 MG Delayed Release Oral Tablet [Proton ix] Protonix 40 MG Protonix 40 MG 11/19/2019 12:00:00 AM EST active 1 tablet eCW1 ([facility]) Amlodipine 10 MG Oral Tablet AmLODIPine Besylate 10 MG AmLODIPine Besylate 10 MG 11/19/2019 12:00:00 AM EST active 1 tablet eCW1 ([facility]) Amlodipine 10 MG Oral Tablet AmLODIPine Besylate 10 MG AmLODIPine Besylate 10 MG 11/19/2019 12:00:00 AM EST active 1 tablet eCW1 ([facility]) pantoprazole 40 MG Delayed Release Oral Tablet [Proton ix] Protonix 40 MG Protonix 40 MG 11/19/2019 12:00:00 AM EST active 1 tablet eCW1 ([facility]) 800-160 mg 11/18/2019 12:00:00 AM EST tablet [...] type / Coverage type Policy ID Covered libertarian ID Covered libertarian's relationship to arriaga Policy Arriaga Plan Information EMEDNY [id number] SP [id number] MEDICARE [id number] SP [id number] [facility] COMM[facility]AN [facility] [id number] SP [id number] [facility] I [id number] Self [id number] OTHER B TRANSPLANT Self TRANSPLAN T Self Pay P UNAVAILABLE S UNAVAILA BLE MEDICARE [id number] SP [id number] MEDICAID [id number] SP [id number] MEDICARE C [id number] S [id number] MEDICAID M [id number] S [id number] MEDICARE [id number] SP [id number] MEDICAID [id number] SP [id number] UNHC COMMUNITY PLAN [facility] [id number] SP [id number] SELF PAY ONLY [id number] SP [id number] [facility] [id number] SP [id number] [facility] Commercial [id number] Self [id number] MEDICARE PART A -O/P [id number] 18 [id number] UNHC COMMUNITY PLAN XIX [id number] 18 [id number] ANSI-Not a Secondary Insurance [id number] ANSI-Medicaid [id number] ANSI-Medicaid [id number] ANSI-Commercial [id number] ANSI-Medicaid [id number] [facility] Health Maintenance Organization ([facility]) [id number] Self [id number] ANSI-Medicaid [id number] ANSI-Not a Secondary Insurance [id number] ANSI-Medicaid [id number] ANSI-Commercial [id number] ANSI-Medicaid [id number] MEDICARE MCA [id number] S [id number] [id number] MEDICARE MCA [id number] S [id number] [facility] HEA [id number] S [id number] ANSI-Medicaid [id number] ANSI-Commercial [id number] ANSI-Medicaid [id number] ANSI-Not a Secondary Insurance [id number] ANSI-Medicaid [id number] MEDICARE [id number] SP [id number] [facility] Commercial [id number] Self [id number] ANSI-Commercial [id number] ANSI-Medicaid [id number] ANSI-Medicaid [id number] ANSI-Medicaid [id number] ANSI-Not a Secondary Insurance [id number] ANSI-Not a Secondary Insurance [id number] ANSI-Medicaid [id number] ANSI-Commercial [id number] ANSI-Medicaid [id number] ANSI-Medicaid [id number] [facility] Commercial [id number] Self [id number] ANSI-Medicaid [id number] ANSI-Commercial [id number] ANSI-Not a Secondary Insurance [id number] ANSI-Medicaid [id number] ANSI-Medicaid [id number] ANSI-Not a Secondary Insurance [id number] ANSI-Medicaid [id number] ANSI-Medicaid [id number] ANSI-Medicaid [id number] ANSI-Commercial [id number] [facility] [id number] ANSI-Commercial [id number] ANSI-Medicaid [id number] ANSI-Medicaid [id number] ANSI-Medicaid [id number] ANSI-Not a Secondary Insurance [id number] ANSI-Not a Secondary Insurance [id number] ANSI-Medicaid [id number] ANSI-Medicaid [id number] ANSI-Medicaid [id number] ANSI-Commercial [id number] ANSI-Commercial [id number] ANSI-Medicaid [id number] ANSI-Not a Secondary Insurance [id number] ANSI-Medicaid [id number] ANSI-Medicaid [id number] ANSI-Medicaid [id number] ANSI-Medicaid [id number] ANSI-Not a Secondary Insurance [id number] ANSI-Commercial [id number] ANSI-Medicaid [id number] [facility] Commercial [id number] Self [id number] ANSI-Not a Secondary Insurance [id number] ANSI-Commercial [id number] ANSI-Medicaid [id number] ANSI-Medicaid [id number] ANSI-Medicaid [id number] ANSI-Medicaid [id number] ANSI-Medicaid [id number] ANSI-Commercial [id number] ANSI-Medicaid [id number] ANSI-Not a Secondary Insurance [id number] [facility] Commercial [id number] [facility] [id number] ANSI-Commercial [id number] ANSI-Medicaid [id number] ANSI-Medicaid [id number] ANSI-Not a Secondary Insurance [id number] ANSI-Medicaid [id number] ANSI-Not a Secondary Insurance [id number]-[id number] ANSI-Medicaid [id number] ANSI-Medicaid [id number] ANSI-Medicaid [id number] ANSI-Commercial [id number]-h4qy-3g8w-[id number]-[id number]-[id number] [facility] [id number] S [id number] ANSI-Medicaid [id number] ANSI-Medicaid [id number] ANSI-Medicaid [id number] ANSI-Not a Secondary Insurance [id number] ANSI-Commercial [id number]-[id number]-[id number] ANSI-Not a Secondary Insurance [id number]-[id number] [id number] [id number] ANSI-Medicaid [id number] ANSI-Commercial [id number]-[id number]-[id number]-[id number] ANSI-Medicaid [id number] [facility]) O [id number] S [id number] [facility] [id number] S [id number] [facility] [id number] S [id number] [facility] [id number] S [id number] [facility] [employer] 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 Community Plan Commercial [id number] Self [id number] ANSI-Medicaid [id number] ANSI-Medicaid [id number] ANSI-Not a Secondary Insurance [id number] ANSI-Commercial [id number] MEDICAID [id number] S [id number] [facility] [id number] S [id number] ANSI-Commercial [id number] ANSI-Not a Secondary Insurance [id number] ANSI-Medicaid [id number] ANSI-Medicaid [id number] ANSI-Commercial [id number] ANSI-Medicaid [id number] ANSI-Not a Secondary Insurance [id number] ANSI-Medicaid [id number] MEDICAID [id number] SP [id number] SELF PAY ONLY - [id number] SP [id number] MEDICAID [id number] SP [id number] ANSI-Not a Secondary Insurance [id number] ANSI-Commercial [id number] ANSI-Medicaid [id number] ANSI-Medicaid [id number] ANSI-Commercial [id number] SELF-PAY UNAVAILABLE S UNAVAILA BLE SELF-PAY UNAVAILABLE S UNAVAILA BLE ANSI-Medicaid [id number] ANSI-Commercial [id number] SELF PAY ONLY [id number] SP [id number] [facility] [id number] SP [id number] [facility] UNK [employer] [id number] SP [id number] [employer] [id number] SP [id number] [employer] UNAVAILABLE SP UNAVA ILABLE OTHER [employer]EMPLOY[employer] [id number] SP [id number] Problems, Conditions, and Diagnoses Code Display Name Description Problem Type Effective Dates Data Source(s) D72.829 Leukocytosis Leukocytosis, unspecified type Problem 12/21/2019 12:00:00 AM EST eCW1 ([facility]) Type 2 diabetes mellitus with diabetic p olyneuropathy Type 2 diabetes mellitus with diabetic polyneuropathy Problem 12/04/2019 12:00:00 AM EST MEDE NT ([facility] [id number] Onychomycosis Onychomycosis Problem 12/04/2019 12:00:00 AM EST MEDENT ([facility] N87.1 223821443 Moderate cervical dysplasia Problem 11/03/19 12:00:00 AM EST eCW1 ([facility]) Pressure ulcer of other site, stage 2 Pressure u lcer of other site, stage 2 Problem 08/24/2019 12:00:00 AM EDT - 10/13/2019 12:00:00 AM ES T MEDENT ([facility] Surgeries/Procedures Procedure Description Date Indications Data Source(s) Office Visit, Est Pt., Level 2 FC 12/20/2019 12:00:00 AM EST eCW1 ([facility]) Office Visit, Est Pt., Level 3 PC 12/20/2019 12:00:00 AM EST eCW1 ([facility]) PARING/CUTTING BENIGN HYPERKERATOTIC LESION 1 11/30/19 12:00:00 AM EST MEDENT ([facility] DEBRIDEMENT NAIL ANY METHOD 6/> 11/30/2019 12:00:00 AM EST MEDENT ([facility] DEBRIDEMENT OPEN WOUND 20 SQ CM/< 11/30/2019 12:00:00 AM EST MEDENT ([facility] Transitional Care NO CHARGE Visit 11/22/2019 12:00:00 AM EST eCW1 ([facility]) TRANS CARE MGMT 7 DAY DISCH 11/21/2019 12:00:00 AM EST eCW1 ([facility]) DEBRIDEMENT OPEN WOUND 20 SQ CM/< 11/03/2019 12:00:00 AM EST MEDENT ([facility] DEBRIDEMENT OPEN WOUND 20 SQ CM/< 10/20/2019 12:00:00 AM EST MEDENT ([facility] DEBRIDEMENT OPEN WOUND 20 SQ CM/< 10/06/2019 12:00:00 AM EST MEDENT ([facility] Results ID Date Data Source [id number] 11/25/2020 06:02:00 PM EST [facility] Name Value Range Interpretation Code Description Data Lynn rce(s) Supporting Document(s) SARS coronavirus 2 RNA [Presence] in Res piratory specimen by ALEXIS with probe detection NEGATIVE [facility] This lab was ordered by [facility] a nd reported by [facility]. ID Date Data Source LIPASE 12/20/2019 12:00:00 AM EST eCW1 ([facility]) Name Value Range Interpretation Code Description Data Lynn rce(s) Supporting Document(s) [id number] LIPASE eCW1 ([facility]) ID Date Data Source Comprehensive Metabolic Profile (CMP) 12/20/2019 12:00:00 AM EST eCW1 ([facility]) Name Value Range Interpretation Code Description Data Lynn rce(s) Supporting Document(s) 5.83 0.55-1.30 CREATININE FOR GFR eCW1 ([facility]) 10.8 >60 GLOMERULAR FILTRATION RATE eCW 1 ([facility]) 25 7-18 BLOOD UREA NITROGEN eCW1 ([facility]) 494 70-100 GLUCOSE, FASTING eCW1 ([facility]) 30 21-32 CARBON DIOXIDE LEVEL eCW1 ([facility]) 3.3 3.5-5.1 POTASSIUM SERUM eCW1 ([facility]) 86 98-107 CHLORIDE LEVEL eCW1 ([facility]) 127 136-145 SODIUM LEVEL eCW1 ([facility]) 87 45-117 ALKALINE PHOSPHATASE eCW1 ([facility]) 8.5 8.5-10.1 CALCIUM LEVEL eCW1 ([facility]) 16 12-78 ALT/SGPT eCW1 ([facility]) 21 7-37 AST/SGOT eCW1 ([facility]) 2.6 3.2-5.2 ALBUMIN eCW1 ([facility]) 0.48 1.00-1.93 ALBUMIN/GLOBULIN RATIO eCW1 ([facility]) 8.0 6.4-8.2 TOTAL PROTEIN eCW1 ([facility]) 0.6 0.2-1.0 BILIRUBIN,TOTAL eCW1 ([facility]) ID Date Data Source CBC with Differential 12/20/2019 12:00:00 AM EST eCW1 ([facility]) Name Value Range Interpretation Code Description Data Lynn rce(s) Supporting Document(s) 12.3 4.0-10.0 WHITE BLOOD COUNT eCW1 ([facility]) 28.7 36.0-47.0 HEMATOCRIT eCW1 ([facility]) 3.13 4.00-5.40 RED BLOOD COUNT eCW1 ([facility]) 9.6 12.0-15.5 HEMOGLOBIN eCW1 ([facility]) 30.7 27.0-33.0 MEAN CORPUSCULAR HEMOGLOB IN eCW1 ([facility]) 13.1 11.5-14.5 RED CELL DISTRIBUTION WID TH eCW1 ([facility]) 91.7 80.0-96.0 MEAN CORPUSCULAR VOLUME e CW1 ([facility]) 33.4 32.0-36.5 MEAN CORPUSCULAR HGB CONC eCW1 ([facility]) 16.6 24.0-44.0 LYMPH % eCW1 ([facility]) 5.4 0.0-5.0 MONO % eCW1 ([facility]) 478 150-450 PLATELET COUNT, AUTOMATED eCW1 ([facility]) 74.0 36.0-66.0 NEUTROPHILS % eCW1 ([facility]) 9.1 1.5-8.5 NEUTROPHILS # eCW1 ([facility]) 2.1 1.5-5.0 LYMPH # eCW1 ([facility]) 3.2 0.0-3.0 EOS % eCW1 ([facility]) 0.4 0.0-1.0 BASO % eCW1 ([facility]) 0.7 0.0-0.8 MONO # eCW1 ([facility]) 0.4 0.0-0.5 EOS # eCW1 ([facility]) 0.1 0.0-0.2 BASO # eCW1 ([facility]) ID Date Data Source VITAMIN D [id number] 11/21/2019 12:00:00 AM EST eCW1 ([facility]) Name Value Range Interpretation Code Description Data Lynn rce(s) Supporting Document(s) 18.5 30.0-100.0 TOTAL 25(OH) VITAMIN D eC W1 ([facility]) ID Date Data Source LIPID PANEL (CARDIAC RISK) 11/21/2019 12:00:00 AM EST eCW1 ( [facility]) Name Value Range Interpretation Code Description Data Lynn rce(s) Supporting Document(s) Cholesterol in LDL [Mass/volume] in Serum or Plasma by calculation 149.4 <100 LDL CHOLESTEROL eCW1 ([facility]) Triglyceride [Mass/volume] in Serum or Plasma by calculation 747 <150 TRIGLYCERIDES LEVEL eCW1 ([facility]) Cholesterol [Moles/volume] in Serum or Plasma 215 <200 CHOLESTEROL LEVEL eCW1 ([facility]) 6.935 <5 CHOLESTEROL RISK RATIO eCW1 ([facility]) Cholesterol in HDL [Moles/volume] in Serum or Plasma 31 >40 HDL CHOLESTEROL eCW1 ([facility]) 184 NON-HDL-C eCW1 ([facility]) ID Date Data Source [id number] 11/21/2019 12:00:00 AM EST eCW1 ([facility]) Name Value Range Interpretation Code Description Data Lynn rce(s) Supporting Document(s) Hemoglobin A1c/Hemoglobin.total in Blood 10.3 HEMOGLOBIN A1c eCW1 ([facility]) Procedure Vital Signs ID Date Data Source UNK Name Value Range Interpretation Code Description Data Source(s) Diastolic blood pressure 90 mm[Hg] 90 mm[Hg] eCW1 ([facility]) Systolic blood pressure 178 mm[Hg] 178 mm[Hg] e CW1 ([facility]) Body temperature 97.2 [degF] 97.2 [degF] eCW1 ( [facility]) Respiratory rate 18 /min 18 /min eCW1 ([facility]) Heart rate 93 /min 93 /min eCW1 ([facility]) Body mass index (BMI) [Ratio] 28.03 kg/m2 28.03 kg/m2 W1 ([facility]) Body height 69 [in_us] 69 [in_us] eCW1 ([facility]) Body weight Measured 189.8 [lb_av] 189.8 [lb_av ] eCW1 ([facility]) Diastolic blood pressure 78 mm[Hg] 78 mm[Hg] eCW1 ([facility]) Systolic blood pressure 140 mm[Hg] 140 mm[Hg] e CW1 ([facility]) Body mass index (BMI) [Ratio] 28.91 kg/m2 28.91 kg/m2 eCW1 ([facility]) Body height 69 [in_us] 69 [in_us] eCW1 ([facility]) Body weight Measured 195.8 [lb_av] 195.8 [lb_av ] eCW1 ([facility]) Diastolic blood pressure 100 mm[Hg] 100 mm[Hg] eCW1 ([facility]) Systolic blood pressure 180 mm[Hg] 180 mm[Hg] e CW1 ([facility]) Body temperature 95.4 [degF] 95.4 [degF] eCW1 ( [facility]) Respiratory rate 18 /min 18 /min eCW1 ([facility]) Heart rate 88 /min 88 /min eCW1 ([facility]) Body mass index (BMI) [Ratio] 30.45 kg/m2 30.45 kg/m2 W1 ([facility]) Body height 69 [in_us] 69 [in_us] eCW1 ([facility]) Body weight Measured 206.2 [lb_av] 206.2 [lb_av ] eCW1 ([facility]) Diastolic blood pressure 92 mm[Hg] 92 mm[Hg] eCW1 ([facility]) Systolic blood pressure 162 mm[Hg] 162 mm[Hg] e CW1 ([facility]) Body mass index (BMI) [Ratio] 30.62 kg/m2 30.62 kg/m2 W1 ([facility]) Body height 69 [in_us] 69 [in_us] eCW1 ([facility]) Body weight Measured 207.4 [lb_av] 207.4 [lb_av ] eCW1 ([facility]) Patient Treatment Plan of Care Planned Activity Planned Date Details Description Data Source (s) Levofloxacin 250 MG Oral Tablet 12/27/2019 12:00:00 AM EST eCW1 ([facility]) Metronidazole 500 MG Oral Tablet [Flagyl] 12/08/2019 12:00:00 AM ES T eCW1 ([facility]) 3 ML Insulin, Aspart, Human 100 UNT/ML Pen Injector [N ovoLog] 11/28/2019 12:00:00 AM EST eCW1 ([facility]) atorvastatin 20 MG Oral Tablet 11/25/2019 12:00:00 AM EST eCW1 ([facility]) Glucometer 11/25/2019 12:00:00 AM EST e CW1 ([facility]) Vitamin D (Ergocalciferol) 50 MCG (1999 [place]) 11/25/2019 12:00:00 AM EST eCW1 ([facility])
[2020-12-01] MEDS ORDERED: METO100T5 PO (03:04)
[2020-12-01] MEDS ORDERED: NIFE90TA20 PO (03:04)
[2020-12-01] MEDS ORDERED: INSUH10VL SC (03:04)
[2020-12-01] MEDS ORDERED: FURO80TA2 PO (03:04)
[2020-12-01] MEDS ORDERED: VITA50005 PO (03:04)
[2020-12-01] MEDS ORDERED: LANTINJ4 SC (03:04)
[2020-12-01] MEDS ORDERED: SEVE800T3 PO (03:05)
--- NOTE | 2020-12-01 03:30 | REPVR ---
PROCEDURE INFORMATION: Exam: XR Abdomen, 1 View Exam date and time: 12/01/2020 3:09 AM Age: 35 years old Clinical indication: Abdominal pain; Acute; Additional info: Flank pain TECHNIQUE: Imaging protocol: XR of the abdomen. Views: Frontal supine view of the abdomen. 1 View. COMPARISON: 1. CT Abdomen without contrast 07/07/2019 12:[address] ABD PELVIS WITH CONTRAST 11/16/2019 11:35:27 AM FINDINGS: Gastrointestinal tract: Unremarkable. No bowel dilation is noted. Organs: No calcifications are seen in the regions of the renal collecting systems or ureters. Vasculature: There are atherosclerotic calcifications. There are several small round calcifications in the left side of the pelvis, which correspond to phleboliths on review of the CT abdomen and pelvis on 11/16/2019. Bones/joints: Unremarkable. IMPRESSION: 1. No acute radiographic findings in the abdomen or pelvis. 2. No radiographic evidence for a bowel obstruction. Electronically signed by: Garland Love On 12/01/2020 03:30:00 AM
[2020-12-01] MEDS: HumaLOG INSULIN (NovoLOG) PER UNIT SC SCH ×4 (04:00→18:03)
[2020-12-01] MEDS: ACETAMINOPHEN TAB 650MG DOSE (2X325MG) PO PRN ×3 (04:48→21:05)
[2020-12-01 06:22] LABS: HEMATOCRIT 21.4 % (36.0-47.0); MEAN CORPUSCULAR HEMOGLOBIN 30.4 pg (27.0-33.0); MEAN CORPUSCULAR HGB CONC 31.8 g/dl (32.0-36.5); MEAN CORPUSCULAR VOLUME 95.5 fl (80.0-96.0); PLATELET COUNT, AUTOMATED 583 10^3/uL (150-450); RED BLOOD COUNT 2.24 10^6/uL (4.00-5.40); WHITE BLOOD COUNT 20.9 10^3/uL (4.0-10.0)
[2020-12-01 06:28] LABS: HEMOGLOBIN 6.8 g/dl (12.0-15.5)
[2020-12-01 06:46] LABS: CALCIUM LEVEL 8.4 MG/DL (8.5-10.1); CREATININE FOR GFR 3.48 MG/DL (0.55-1.30); GLOMERULAR FILTRATION RATE 19.5 (>60); POTASSIUM SERUM 4.6 MEQ/L (3.5-5.1)
[2020-12-01] MEDS ORDERED: ceFAZolin SOD 1 GM in D5W MINI-BAG PLUS 50 ML IV SCH (07:30)
[2020-12-01] MEDS ORDERED: VANCOMYCIN HCL 1,000 MG, VIAL MATE ADAPTER 1 EACH in D5W 250 ML IV SCH ×2 (07:30→10:00)
[2020-12-01] MEDS ORDERED: VANCOMYCIN HCL 750 MG, VIAL MATE ADAPTER 1 EACH in D5W 250 ML IV SCH (07:45)
[2020-12-01] MEDS ORDERED: PIPERACILLIN/TAZOBACTAM SOD 3.375 GM in D5W MINI-BAG PLUS 50 ML IV SCH (08:00)
[2020-12-01 08:37] LABS: HEMATOCRIT 20.4 % (36.0-47.0)
[2020-12-01 08:38] LABS: HEMOGLOBIN 6.5 g/dl (12.0-15.5)
[2020-12-01] MEDS ORDERED: (RENVELA) SEVELAMER **CARBONate** 800 MG TAB PO PRN (09:00)
[2020-12-01] MEDS ORDERED: VANCOMYCIN HCL 1,000 MG, VIAL MATE ADAPTER 1 EACH in D5W 250 ML IV ONE (09:00)
[2020-12-01] MEDS: FUROSEMIDE 80 MG TAB PO SCH ×2 (09:04→18:03)
[2020-12-01] MEDS: (RENVELA) SEVELAMER **CARBONate** 800 MG TAB PO SCH ×3 (09:04→17:35)
[2020-12-01] MEDS: NIFEdipine 30 MG XL TAB PO SCH (09:05)
[2020-12-01] MEDS: METOPROLOL TARTRATE 100 MG TAB PO SCH ×2 (09:05→21:02)
[2020-12-01] MEDS: **hydrALAZINE** 50 MG TAB PO SCH ×3 (09:11→21:00)
[2020-12-01] MEDS ORDERED: LIDOCAINE 1% MDV 20ML VIAL As Ordered ONE (12:10)
[2020-12-01] MEDS ORDERED: LIDOCAINE 1% MDV 20ML VIAL SC ONE (12:15)
--- NOTE | 2020-12-01 12:25 | CR ---
PODIATRY CONSULTATION DATE: 12/01/2020 REASON FOR CONSULTATION: Foot infection. HISTORY OF PRESENT ILLNESS: Narcisa Mireles is a patient known to me who has a chronic history of bilateral ulcerations to her feet. She had moved to [place], but has recently moved back to the area. She has significant pain on her left foot with swelling, notes the wound has gotten a lot worse. PAST MEDICAL HISTORY: Significant for: 1. ESRD on hemodialysis. 2. Insulin dependent diabetes with neuropathy, retinopathy. 3. Trace MVR, AVR and TVR. PAST SURGICAL HISTORY: Includes: 1. section. 2. Cyst excision brain. SOCIAL HISTORY: Denies alcohol, denies other drug use. ALLERGIES: 1. TAPE. 2. CINACALCET. 3. LATEX. 4. MORPHINE. 5. PEANUTS. REVIEW OF SYSTEMS: She denies nausea, vomiting, fever or chills. PHYSICAL EXAMINATION: Vitals are reviewed. T-max 99. Lower extremity examination: There is erythema and edema to the left foot extending from the left metatarsal head and wound with purulent drainage and blistering. On the right foot there is an ulceration on the plantar fifth metatarsal head. There was no drainage or erythema to this site. LABORATORY DATA: Reviewed. White cell count on admission 22.8 today it is 20.9. ESR 127. CRP is 26.7. IMAGING STUDIES: Reviewed. Left foot x-ray consistent signs of osteomyelitis of the fifth metatarsal head with soft tissue emphysema. ASSESSMENT: This is a 35 -year-old female with diabetic ulcerations and left foot osteomyelitis. PLAN: Patient currently on antibiotics. We will plan to bring her to the operating room for bilateral fifth metatarsal head excisions. She is to be n.p.o. at midnight. We will take all our cultures and continue empiric antibiotics at this time.
--- NOTE | 2020-12-01 12:50 | REP ---
INDICATION: S/P left SC CVC placement. 12:34 p.m. film. COMPARISON: Comparison study earlier this date 01 December 2020 at 12:47 a.m.. TECHNIQUE: Portable upright AP chest radiograph. FINDINGS: The lungs are symmetrically aerated and clear. Cardiomegaly is again observed. A right-sided tunneled catheter is seen with its tip in the expected location of superior vena cava. A left-sided central venous line is noted with via the subclavian vein region with its tip in the expected location of the superior vena cava. There is no evidence of pneumothorax on either side. Pleural angles are sharp.. IMPRESSION: Bilateral central venous lines in place. No complication seen. Cardiomegaly.. <Electronically signed by Kip Rizzo > 12/01/20 0193
[2020-12-01 13:42] LABS: CLOSTRIDIUM DIFFICILE PCR POSITIVE (NEGATIVE)
--- NOTE | 2020-12-01 13:46 | RO ---
OPERATIVE NOTE DATE OF OPERATION: 12/01/2020 PREOPERATIVE DIAGNOSIS: Need for vascular access, antibiotics, and transfusion. POSTOPERATIVE DIAGNOSIS: Need for vascular access, antibiotics, and transfusion. PROCEDURE: Insertion of a left subclavian central line. SURGEON: Dr. Gibson DESCRIPTION OF PROCEDURE: The patient was prepped and draped in the usual sterile fashion, and the left infraclavicular fossa was infiltrated with 1% lidocaine. Patient was placed in deep Trendelenburg position, and the vein was found on the first pass. A wire was placed without difficulty, and the tract was dilated. A triple-lumen catheter was then placed. Ports were aspirated and flushed without difficulty. Catheter was secured to the chest wall with two 3-0 silk sutures. Patient tolerated the procedure well, and a chest x-ray is pending.
[2020-12-01] MEDS: **VANCO AFTER HD** MISC XX SCH (16:00)
[2020-12-01] MEDS: VANCOMYCIN ORAL SOL 250MG/5ML ORAL SYRINGE PO SCH (17:36)
[2020-12-01] MEDS: PIPERACILLIN/TAZOBACTAM SOD 2.25 GM in D5W MINI-BAG PLUS 50 ML IV SCH (17:37)
[2020-12-01] MEDS: LEVEMIR (INSULIN DETEMIR) 1 UNITS/0.01ML SC SCH (21:03)
[2020-12-01 21:17] LABS: HEMATOCRIT 25.3 % (36.0-47.0); HEMOGLOBIN 8.2 g/dl (12.0-15.5)
[2020-12-02] VITALS (10 sets, daily range): BP systolic 109–155; BP diastolic 56–77
[2020-12-02] MEDS ORDERED: HumaLOG INSULIN (NovoLOG) PER UNIT SC ONE (01:00)
[2020-12-02] MEDS: PIPERACILLIN/TAZOBACTAM SOD 2.25 GM in D5W MINI-BAG PLUS 50 ML IV SCH ×3 (01:26→17:09)
[2020-12-02] MEDS: VANCOMYCIN ORAL SOL 250MG/5ML ORAL SYRINGE PO SCH ×5 (01:26→23:06)
[2020-12-02] MEDS ORDERED: SODIUM CHLORIDE 0.9% INJ 10 ML SYR IV PRN (05:00)
[2020-12-02] MEDS: HumaLOG INSULIN (NovoLOG) PER UNIT SC SCH ×5 (06:00→20:35)
[2020-12-02 06:05] LABS: HEMOGLOBIN 7.8 g/dl (12.0-15.5); MEAN CORPUSCULAR HEMOGLOBIN 30.8 pg (27.0-33.0); MEAN CORPUSCULAR HGB CONC 32.5 g/dl (32.0-36.5); MEAN CORPUSCULAR VOLUME 94.9 fl (80.0-96.0); PLATELET COUNT, AUTOMATED 591 10^3/uL (150-450); RED BLOOD COUNT 2.53 10^6/uL (4.00-5.40); WHITE BLOOD COUNT 17.4 10^3/uL (4.0-10.0)
[2020-12-02 06:20] LABS: INR 1.21; PROTHROMBIN TIME 15.6 SECONDS (12.5-14.3)
[2020-12-02 06:40] LABS: CALCIUM LEVEL 8.1 MG/DL (8.5-10.1); CREATININE FOR GFR 4.79 MG/DL (0.55-1.30); GLOMERULAR FILTRATION RATE 13.5 (>60)
[2020-12-02] MEDS: SODIUM CHLORIDE 0.9% INJ 10 ML SYR IV SCH ×3 (06:44→21:11)
[2020-12-02] MEDS ORDERED: MIDAZOLAM INJ 2MG/2ML VIAL (J2250 PER 1MG) As Ordered ONE (07:29)
[2020-12-02] MEDS ORDERED: fentaNYL 100 MCG/2 ML INJECTION (J3010) As Ordered ONE (07:29)
[2020-12-02] MEDS ORDERED: propofoL 200 MG/20 ML VIAL As Ordered ONE (07:29)
[2020-12-02] MEDS ORDERED: LIDOCAINE 2% 100MG/5ML SDV (FOR ANES.) As Ordered ONE (07:29)
[2020-12-02] MEDS: (RENVELA) SEVELAMER **CARBONate** 800 MG TAB PO SCH (07:32)
[2020-12-02] MEDS ORDERED: BUPIVACAINE HCL 0.5% 10ML VIAL As Ordered ONE (07:33)
[2020-12-02] MEDS ORDERED: LIDOCAINE 1% MDV 20ML VIAL As Ordered ONE (07:33)
--- NOTE | 2020-12-02 07:49 | IPNPDOC ---
Text Note Date of Service The patient was seen on 12/02/20. NOTE Subjective: Plan to go to OR this morning. No acute overnight events no complaints. Objective: Constitutional: Awake and alert, in no apparent distress ENT: Sclera are clear. Respiratory: Lungs CTA bilaterally with the exception of some diminished sounds at the bases. No respiratory distress. No use of accessory muscles. Cardiovascular: Regular heart rate Gastrointestinal: Abdomen is soft, nontender bowel sounds present Musculoskeletal: Left ankle a little more swollen than the right ankle fairly mild Neurologic: No focal neurological deficit. Mental Status: A&O x3, normal affect Skin: Left foot there is a small ulcer on the lateral side of foot near the fifth digit. Left foot looks a little worse in the right foot as it is slightly more swollen. Right foot also has a smaller ulcer closer to the plantar surface of the fifth toe Assessment/plan: Ms. Mireles is a 35 yr old w a hx of IDDM1 w neuropathy, retinopathy, Pulm HTN and Essential HTN who is admitted for management of suspected left 5th toe osteomyelitis; she was also c/o chest pain. # Bilateral fifth osteomyelitis: Podiatry consulted. Dr. Mondragon 12/02 to OR for bilateral fifth metatarsal head excision. Cultures will be taken at that time. Patient is on cefazolin and vancomycin. Blood cultures negative to date. PT/OT postop. # Chest pain: According to time and criteria noncardiac. Patient no longer complains of chest pain at this time. She says is related to her cough what happens. EKG reviewed. BNP is elevated in the context of ESRD. Fu echo. # ESRD TTS: Right arm fistula and permacath. Continue dialysis per nephrology was consulted # ACD: Continue iron supplementation. Transfuse PRBC hgb<7. # Diabetes mellitus type 1: Sepsis with neuropathy and retinopathy s/p photocoagulation. A1c 10.2%. Diabetic diet. Frequent Accu-Cheks. Hypoglycemic protocol. Sliding scale. 5 units of Levemir daily at bedtime. # Renovascular hypertension: Continue metoprolol and nifedipine. # Thrombocytosis: Likely reactive due to infection A Yousef Hospitalist Kiana SALINAS, I+O VS, Kiana, I+O Laboratory Tests 12/01/20 08:05 12/01/20 21:01 12/02/20 05:40 Vital Signs Date Time Temp Pulse Resp B/P (MAP) Pulse Ox O2 Delivery O2 Flow Rate FiO2 12/02/20 04:00 99.4 80 18 122/70 (87) 99 Room Air I&O- Last 24 Hours up to 6 AM 12/02/20 06:00 Intake Total 1775 ml Output Total 0 ml Balance 1775 ml MATT NORTH MD Dec 02, 2020 07:49
[2020-12-02] MEDS ORDERED: ZOSYN 2.25GM VIAL (J2543) As Ordered ONE (08:21)
[2020-12-02] MEDS: NIFEdipine 30 MG XL TAB PO SCH (09:00)
[2020-12-02] MEDS: **hydrALAZINE** 50 MG TAB PO SCH ×3 (09:00→21:00)
[2020-12-02] MEDS: METOPROLOL TARTRATE 100 MG TAB PO SCH ×2 (09:00→21:12)
[2020-12-02] MEDS: FUROSEMIDE 80 MG TAB PO SCH ×2 (09:00→17:10)
[2020-12-02] MEDS ORDERED: ONDANSETRON 4MG/2ML VIAL As Ordered ONE (09:05)
[2020-12-02] MEDS ORDERED: LR 1,000 ML IV SCH (09:45)
[2020-12-02] MEDS ORDERED: fentaNYL 100 MCG/2 ML INJECTION (J3010) IV PRN (09:45)
[2020-12-02] MEDS ORDERED: ONDANSETRON 4MG/2ML VIAL IV PRN (09:45)
[2020-12-02 10:49] LABS: ACETONE/KETONE 0.72 MG/DL (<2.81)
[2020-12-02] MEDS ORDERED: DEXTROSE 50% 50 ML SYRINGE IV PRN (12:00)
[2020-12-02] MEDS ORDERED: GLUCAGON INJ 1MG VIAL SC PRN (12:00)
[2020-12-02] MEDS ORDERED: GLUCOSE 4GM CHEW TABLET PO PRN (12:00)
[2020-12-02] MEDS: ACETAMINOPHEN TAB 650MG DOSE (2X325MG) PO PRN ×2 (12:35→18:22)
--- NOTE | 2020-12-02 15:31 | CR ---
NEPHROLOGY CONSULTATION DATE: 12/02/2020 REQUESTING PHYSICIAN: Dr. Olaf Salazar CONSULTING PHYSICIAN: Dr. Karolyn Vitale REASON FOR CONSULTATION: Management of end-stage renal disease, on hemodialysis. CHIEF COMPLAINT: The patient presented to the hospital with a foot ulcer. HISTORY OF PRESENT ILLNESS: Narcisa Mireles is a 35-year-old female with a past medical history of end-stage renal disease, on hemodialysis q. Thursday, , Thursday. History of insulin dependent diabetes mellitus type one. History of hypertension, chronically noncompliant with medications as an outpatient. She presented to the hospital with a 2-day history of left foot and ankle swelling and foot ulcer. She also had right flank pain on arrival. She was admitted under the Hospitalist Service with possible left fifth toe osteomyelitis. She was started on IV antibiotics. Later on she was found to have C-difficile colitis as well and she was started on oral Vancomycin. The patient was anemic on arrival and she was given blood as well. Nephrology Service was called for further help in the management of this patient. I saw and evaluated the patient today morning at the bedside. She reports that she is very sleepy and tired and she reports pain in the feet. Otherwise she denies any active complaints. PAST MEDICAL HISTORY: The patient's past medical history is significant for: 1. History of end-stage renal disease, on hemodialysis q. Thursday, , Thursday. 2. 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 3. Pulmonary hypertension. PAST SURGICAL HISTORY: The patient's past surgical history is significant for: 1. Status post AV fistula creation. 2. History of right IJ tunnel hemodialysis catheter placement. 3. History of in the past. ALLERGIES: She is allergic to: 1. Tape. 2. Latex. 3. Morphine. 4. Peanuts. FAMILY HISTORY: No significant family history of end-stage renal disease requiring hemodialysis. SOCIAL HISTORY: She denies any alcohol abuse or smoking or illicit drug abuse. REVIEW OF SYSTEMS: Constitutional: She denies any fevers or chills. She reports feeling tired and fatigued. Eyes: She denies any blurry vision, double vision. ENT: She denies any dysphagia or odynophagia. Cardiovascular: She denies any chest pain or palpitations. Respiratory: She denies any shortness of breath. GI: She denies any nausea or vomiting. She does report diarrhea. Genitourinary: She denies any dysuria or hematuria. Musculoskeletal: She reports pain in both feet. Hematological/Oncological: She denies any easy bleeding or bruising. All other review of systems is negative. PHYSICAL EXAMINATION: GENERAL APPEARANCE: The patient is drowsy and sleepy, laying in bed. VITAL SIGNS: Temperature is 100.4 degrees Fahrenheit, blood pressure is 116/58, pulse is 80, respiratory rate of 20 saturating 99% on room air. INTAKE AND OUTPUT: There is no urine output recorded. HEAD AND NECK: Pupils are equally round and reactive to light. Mucous membranes are moist. Neck is supple. There is no jugular venous distention. She has a right IJ tunneled hemodialysis catheter and left subclavian triple lumen catheter. CARDIOVASCULAR: S1, S2, regular rate. EXTREMITIES: 1+ edema of the bilateral lower extremities. RESPIRATORY: Chest is clear to auscultation bilaterally. Bilaterally currently no rales or rhonchi. ABDOMEN: Soft, positive bowel sounds, mildly tender to deep palpation. GENITOURINARY: Bladder is not palpable. MUSCULOSKELETAL: The patient has dressings on both feet and she reports tenderness on deep palpation of both feet. GEOSCIENCE PROFESSOR: No focal deficits apart from the patient being drowsy. Otherwise she follows commands and moves the extremities. LABORATORY REVIEW: CBC showed a white blood cell count of 17.4, hemoglobin is 7.8, platelet count of 591. INR is 1.21. BMP showed sodium of 133, potassium 4, chloride 92, bicarbonate 32, BUN 24, creatinine is 4.7, calcium 8.1, troponin 0.03. Toxicology: Betide oxybutyrate was elevated on admission, however repeat one today is 0.72. Microbiology: Fecal occult blood testing is negative. Blood cultures are negative so far. IMAGING DATA: A chest x-ray was done yesterday which showed bilateral central venous lines in place. No acute pathology. A foot x-ray was done which showed right foot soft tissue swelling in the forefoot. There were erosive changes involving the base of the proximal phalanx of the left fifth toe and distal portion of the left fifth metatarsal which can be seen with osteomyelitis. CURRENT INPATIENT MEDICATIONS: The patient's medications were all reviewed by myself. She is currently on Zosyn 25 grams IV q. 8 hours. She is also on Vancomycin IV with hemodialysis. She is on Lasix 50 mg p.o. twice daily, Hydralazine 50 mg p.o. three times a day, Insulin Levemir 5 units subcutaneously q. h.s. and insulin Lispro sliding scale, Metoprolol Tartrate 100 mg p.o. twice daily, Nifedipine 90 mg p.o. daily, and she is also on Vancomycin 125 mg p.o. q. 6 hourly. ASSESSMENT AND PLAN: 1. End-stage renal disease The patient's regular dialysis days are Thursday, , Thursday. She will be dialyzed as per her regular schedule on Thursday. Electrolytes are within the acceptable range. 2. Anemia and end-stage renal disease - hemoglobin level is still low at 7.8. I ordered one more unit of PRBC transfusion. She will also be given Aranesp with dialysis. 3. Bilateral foot infections she is currently on Vancomycin and Zosyn. Culture is pending. I and D versus amputation is as per Podiatry Service. 4. Insulin dependent diabetes with DKA on arrival the patient's repeat beta hydroxybutyrate is within the normal range. She is currently on insulin. Glucose level is within the acceptable range now. 5. Hypertension with hypertensive heart disease - continue current dose of Hydralazine, Nifedipine and Metoprolol. Blood pressure levels are optimal. Volume status will be optimized with dialysis. No need of further IV fluid hydration. 6. Chronic kidney disease, mineral bone disease - The patient is having diarrhea. I have stopped the Renvela at this time. 7. C-diff colitis - The patient is currently on oral Vancomycin as well. Thank you for involving me in the care of this patient. I shall be happy to follow the patient along with you tomorrow morning. MTDD
[2020-12-02] MEDS: **VANCO AFTER HD** MISC XX SCH (16:00)
[2020-12-02] MEDS: LEVEMIR (INSULIN DETEMIR) 1 UNITS/0.01ML SC SCH (21:12)
[2020-12-03] VITALS (7 sets, daily range): BP systolic 137–202; BP diastolic 73–100
[2020-12-03] MEDS: PIPERACILLIN/TAZOBACTAM SOD 2.25 GM in D5W MINI-BAG PLUS 50 ML IV SCH ×3 (01:26→18:29)
[2020-12-03 05:30] LABS: HEMATOCRIT 26.8 % (36.0-47.0); HEMOGLOBIN 8.6 g/dl (12.0-15.5); MEAN CORPUSCULAR HEMOGLOBIN 29.8 pg (27.0-33.0); MEAN CORPUSCULAR HGB CONC 32.1 g/dl (32.0-36.5); MEAN CORPUSCULAR VOLUME 92.7 fl (80.0-96.0); PLATELET COUNT, AUTOMATED 584 10^3/uL (150-450); RED BLOOD COUNT 2.89 10^6/uL (4.00-5.40); WHITE BLOOD COUNT 16.6 10^3/uL (4.0-10.0)
[2020-12-03 06:11] LABS: CALCIUM LEVEL 7.5 MG/DL (8.5-10.1); CREATININE FOR GFR 6.05 MG/DL (0.55-1.30); GLOMERULAR FILTRATION RATE 10.3 (>60); POTASSIUM SERUM 3.9 MEQ/L (3.5-5.1)
[2020-12-03] MEDS: SODIUM CHLORIDE 0.9% INJ 10 ML SYR IV SCH ×3 (06:21→21:55)
[2020-12-03] MEDS: VANCOMYCIN ORAL SOL 250MG/5ML ORAL SYRINGE PO SCH ×3 (06:21→18:27)
[2020-12-03] MEDS ORDERED: VANCOMYCIN HCL 1,000 MG, VIAL MATE ADAPTER 1 EACH in D5W 250 ML IV ONE ×2 (06:30→21:00)
--- NOTE | 2020-12-03 07:44 | IPNPDOC ---
Text Note Date of Service The patient was seen on 12/03/20. NOTE Subjective: Was seen and examined this morning at bedside. Patient tells me that the surgery went well yesterday and she feels better. Tells me that the diarrhea has slowed down now also. There is no acute overnight events reported to me. Patient denies any chest pain or shortness of breath she denies fevers or chills. Objective: Constitutional: Awake and alert, in no apparent distress ENT: Sclera are clear. Respiratory: Lungs CTA bilaterally with the exception of some diminished sounds at the bases. No respiratory distress. No use of accessory muscles. Cardiovascular: Regular heart rate Gastrointestinal: Abdomen is soft, nontender bowel sounds present Musculoskeletal: Left ankle a little more swollen than the right ankle fairly mild Neurologic: No focal neurological deficit. Mental Status: A&O x3, normal affect Skin: now dressing in place on bilateral feet at site of surgery. Dressing clean with no drainage. Assessment/plan: Ms. Mireles is a 35 yr old w a hx of IDDM1 w neuropathy, retinopathy, Pulm HTN and Essential HTN who is admitted for management of suspected left 5th toe osteomyelitis; she was also c/o chest pain. # Bilateral fifth osteomyelitis: Podiatry consulted. Dr. Mondragon took her to OR 12/02 for bilateral fifth metatarsal head excision. Cultures and bone for biopsy sent. Patient is on Zosyn and vancomycin. Blood cultures negative to date. PT/OT postop. # C diff diarrhea: PO vancomycin 10 days started 12/01/2020. Diarrhea has improve d. # Chest pain: According to christie criteria noncardiac. Patient no longer complains of chest pain at this time. She says is related to her cough what happens. EKG reviewed. BNP is elevated in the context of ESRD. Fu echo. # ESRD TTS: Right arm fistula and permacath. Continue dialysis per nephrology was consulted # ACD: Continue iron supplementation. Transfuse PRBC hgb<7. # Diabetes mellitus type 1: Sepsis with neuropathy and retinopathy s/p photocoagulation. A1c 10.2%. Diabetic diet. Frequent Accu-Cheks. Hypoglycemic protocol. Sliding scale. 5 units of Levemir daily at bedtime. # Renovascular hypertension: Continue metoprolol and nifedipine. hydralazine increased to 75 tid. # Thrombocytosis: possibly reactive due to infection A Yousef Hospitalist VS,Fishbone, I+O Kiana SALINAS I+O Laboratory Tests 12/03/20 05:16 Vital Signs Date Time Temp Pulse Resp B/P (MAP) Pulse Ox O2 Delivery O2 Flow Rate FiO2 12/03/20 04:00 99.2 81 18 143/73 (96) 94 Room Air I&O- Last 24 Hours up to 6 AM 12/03/20 06:00 Intake Total 2165 ml Output Total 25 ml Balance 2140 ml MATT NORTH MD Dec 03, 2020 07:44
[2020-12-03] MEDS ORDERED: SODIUM CHLORIDE 0.9% 1000ML IV PRN (08:00)
[2020-12-03] MEDS ORDERED: LABETALOL 100MG/20ML VIAL IV STA (08:44)
[2020-12-03] MEDS: HumaLOG INSULIN (NovoLOG) PER UNIT SC SCH ×4 (09:00→21:00)
[2020-12-03] MEDS: FUROSEMIDE 80 MG TAB PO SCH ×2 (09:02→18:27)
[2020-12-03] MEDS: NIFEdipine 30 MG XL TAB PO SCH (09:02)
[2020-12-03] MEDS: METOPROLOL TARTRATE 100 MG TAB PO SCH ×2 (09:02→21:54)
[2020-12-03] MEDS: ACETAMINOPHEN TAB 650MG DOSE (2X325MG) PO PRN ×2 (09:20→21:53)
[2020-12-03] MEDS: **hydrALAZINE HCL** 25 MG TAB PO SCH ×3 (09:20→21:54)
--- NOTE | 2020-12-03 11:14 | RO ---
OPERATIVE NOTE DATE OF OPERATION: 12/02/2020 PREOPERATIVE DIAGNOSIS: Bilateral 5th metatarsal head ulcerations and left foot osteomyelitis. POSTOPERATIVE DIAGNOSIS: Bilateral 5th metatarsal head ulcerations and left foot osteomyelitis. PROCEDURE: Bilateral 5th metatarsal head excisions. SURGEON: Butch Mondragon DPM DIRECTOR NICU: None. ANESTHESIA: Monitored anesthesia care; preop injection of 20 mL 1:1 mix of 1% Lidocaine plain and 0.5% Marcaine plain. ESTIMATED BLOOD LOSS: Minimal. MATERIALS: 3-0 nylon. INJECTABLES: None. COMPLICATIONS: None. SPECIMEN: Bilateral 5th metatarsal heads. INDICATIONS: Narcisa Mireles is a 35-year-old female who presented to [facility] with left foot infection. She has had chronic ulcerations under the 5th metatarsals of both feet on and off for several years. An MRI was done of her left foot which showed signs suggestive of osteomyelitis at 5th metatarsal head. Decision was made to bring her to the operating room for removal of both 5th metatarsal heads. Patient, site and side were identified and marked preoperatively. Consent was reviewed and obtained. All risks, complications and alternatives to the procedure were explained to the patient in detail, all questions were answered. DESCRIPTION OF PROCEDURE: The patient was brought to the operating room and placed on the operating table in supine position. Monitored anesthesia care was delivered by the anesthesia team. Preop injection of 20 mL of 1:1 mix of 1% Lidocaine plain and 0.5% Marcaine plain injected in both feet. Both feet were prepped and draped in normal sterile fashion. Tourniquet was applied to the ankles and inflated to 250 mmHg. The same procedure was performed on both feet. The right foot was done first. Dorsal incision was drawn over the 5th metatarsal head, carried through with #15 blade. Dissection was carried down until the 5th metatarsal head was identified. On the left side there was purulent drainage surrounding the metatarsal head and some erosive changes, the right side was without purulent drainage and the bone seemed without significant obvious signs of infection. Culture swabs aerobic and anaerobic were taken on the left side. Using sagittal saw the 5th metatarsal head was excised on both feet. Sites were irrigated with normal saline and repaired with 3-0 nylon. Both bones were sent for pathology. Sterile dressings were applied. Tourniquets were deflated. The patient was brought to PACU with vital signs stable and neurovascular status intact. She will be readmitted to the floor for antibiotics. Will follow.
--- NOTE | 2020-12-03 12:33 | IPN ---
PROGRESS NOTE DATE: 12/03/2020 SUBJECTIVE: Patient was seen and examined at the bedside today morning. She reports that her pain is better today. Her left foot is still hurting and today is her regular day of dialysis. Her blood pressures were elevated overnight, which are better at this time. OBJECTIVE: VITAL SIGNS: Temperature 99.6 degrees Fahrenheit, blood pressure 160/84, pulse 92, respiratory rate 20, saturating 94% on room air. INTAKE AND OUTPUT: Urine output is not recorded. She has had two bowel movements yesterday and two bowel movements so far today and she reports her diarrhea is getting better. Weight in the bed scale is 92.1 kg, which is stable since yesterday. PHYSICAL EXAMINATION: GENERAL: Patient is awake, alert, oriented times three, laying in the bed, no apparent distress. HEAD AND NECK EXAM: Extraocular muscles intact. Pupils equally round and reactive to light. Mucous membranes are moist. Neck is supple. She has a right internal jugular (IJ) tunneled hemodialysis catheter. CARDIOVASCULAR: S1, S2. Regular rate. 1+ edema on the bilateral lower extremities. RESPIRATORY: Chest is clear to auscultation bilaterally. Bilateral equal air entry. No rales or rhonchi. ABDOMEN: Soft. Positive bowel sounds. Nontender. No organomegaly. MUSCULOSKELETAL: She has dressings on both feet after recent procedure. CENTRAL NERVOUS SYSTEM (ACADEMY EDUCATION DIRECTOR): No focal deficits. Power is 5/5 in all extremities. LABORATORY REVIEW: CBC showed WBC 16.6, hemoglobin 8.6, platelets 584. BMP showed sodium 129, potassium 3.9, chloride 92, bicarbonate 29, BUN 28, creatinine 6, calcium 7.5. CURRENT INPATIENT MEDICATIONS: Medications were all reviewed by myself. She continues to be on vancomycin and Zosyn at this time. Hydralazine dose was increased to 75 mg by mouth three times a day. No other significant change in the medications today compared with yesterday. ASSESSMENT AND PLAN: 1. End-stage renal disease. Patient's regular dialysis day actually right now is Thursday, Thursday and Thursday. She was dialyzed last Thursday. She will be dialyzed today. I will try to remove at least 3 kg of fluid as tolerated by her blood pressure. 2. Hypertension with hypertensive heart disease. Blood pressure is uncontrolled. Some of that is because of blood transfusion that she received and she is noncompliant with medications as outpatient. Continue current antihypertensive regimen. She will get 3 liters of fluid removed, which will help improve blood pressure as well. 3. Bilateral foot infection. Patient is currently on vancomycin and Zosyn. The rest of the management is as per podiatry. 4. Insulin dependent diabetes. Continue current dose of insulin regimen. Glucose levels are within the acceptable range. 5. Chronic kidney disease/mineral bone disease. Renvela was stopped because of Clostridium (C) difficile and diarrhea. 6. Clostridium (C) difficile colitis. She is on oral vancomycin. She is getting IV antibiotics for foot infection. Diarrhea is getting better.
[2020-12-03] MEDS: DARBEPOETIN 200MCG/0.4ML *DIALYSIS* SYRINGE (J0882 PER 1MCG) IV SCH (15:11)
[2020-12-03] MEDS: **VANCO AFTER HD** MISC XX SCH (16:00)
[2020-12-03] MEDS: LEVEMIR (INSULIN DETEMIR) 1 UNITS/0.01ML SC SCH (21:53)
[2020-12-04] VITALS: BP 132/67
[2020-12-04] MEDS: VANCOMYCIN ORAL SOL 250MG/5ML ORAL SYRINGE PO SCH ×4 (01:31→17:56)
[2020-12-04] MEDS: PIPERACILLIN/TAZOBACTAM SOD 2.25 GM in D5W MINI-BAG PLUS 50 ML IV SCH (01:32)
[2020-12-04 04:00] VITALS: BP 130/77
[2020-12-04] MEDS: SODIUM CHLORIDE 0.9% INJ 10 ML SYR IV SCH ×3 (05:13→21:21)
[2020-12-04] MEDS: ACETAMINOPHEN TAB 650MG DOSE (2X325MG) PO PRN (05:14)
[2020-12-04 05:42] LABS: HEMATOCRIT 26.3 % (36.0-47.0); HEMOGLOBIN 8.4 g/dl (12.0-15.5); MEAN CORPUSCULAR HEMOGLOBIN 29.7 pg (27.0-33.0); MEAN CORPUSCULAR HGB CONC 31.9 g/dl (32.0-36.5); MEAN CORPUSCULAR VOLUME 92.9 fl (80.0-96.0); PLATELET COUNT, AUTOMATED 595 10^3/uL (150-450); RED BLOOD COUNT 2.83 10^6/uL (4.00-5.40); WHITE BLOOD COUNT 18.3 10^3/uL (4.0-10.0)
[2020-12-04 06:11] LABS: CALCIUM LEVEL 8.5 MG/DL (8.5-10.1); CREATININE FOR GFR 4.68 MG/DL (0.55-1.30); GLOMERULAR FILTRATION RATE 13.9 (>60); POTASSIUM SERUM 4.4 MEQ/L (3.5-5.1)
[2020-12-04 08:00] VITALS: BP 116/63
[2020-12-04] MEDS: **hydrALAZINE HCL** 25 MG TAB PO SCH ×3 (09:53→21:20)
[2020-12-04] MEDS: HumaLOG INSULIN (NovoLOG) PER UNIT SC SCH ×4 (09:53→21:00)
[2020-12-04] MEDS: NIFEdipine 30 MG XL TAB PO SCH (09:54)
[2020-12-04] MEDS: METOPROLOL TARTRATE 100 MG TAB PO SCH ×2 (09:54→21:20)
[2020-12-04] MEDS: FUROSEMIDE 80 MG TAB PO SCH ×2 (09:54→17:57)
[2020-12-04 12:00] VITALS: BP 143/88
[2020-12-04 16:00] VITALS: BP 143/81
--- NOTE | 2020-12-04 17:33 | IPNPDOC ---
Text Note Date of Service The patient was seen on 12/04/20. NOTE Subjective: No any acute events overnight. Patient complains of bilateral foot pain stated that Tylenol is not enough for pain management Objective: GENERAL APPEARANCE: In mild distress HEENT: no scleral icterus, no JVD, EOMI CARDIOVASCULAR: S1S2 LUNGS: CTA ABDOMEN: soft & not tender w palpitation MUSCULOSKELETAL: Dressing in place bilaterally. INTEGUMENT: no generalized pallor NEUROLOGICAL: cranial nerve function from 2-12 intact intact, follows commands, speech not dysarthric Assessment and plan Patient is a 35 yr old w a hx of IDDM1 w neuropathy, retinopathy, Pulm HTN and Essential HTN who is admitted for management of suspected left 5th toe osteomyelitis. ] Bilateral fifth osteomyelitis Dr. Mondragon took her to OR 12/02 for bilateral fifth metatarsal head excision Wound culture positive for Enterococcus faecalis and Escherichia coli ESBL Continue meropenem and vancomycin IV Blood culture negative Pain management C. difficile diarrhea Improved Continue by mouth vancomycin Chest pain Resolved Cardiac Workup negative End-stage renal diseases Nephrology team follows him Continue dialysis Hypertension Managed with dialysis Continue home meds Type 1 diabetes Glucose level under control Insulin sliding scale Detemir Anemia Most likely due to end-stage renal disease Will discuss Aranesp with nephrology team VS,Kiana, I+O VS, Kiana, I+O Laboratory Tests 12/04/20 05:30 Vital Signs Date Time Temp Pulse Resp B/P (MAP) Pulse Ox O2 Delivery O2 Flow Rate FiO2 12/04/20 16:00 99.8 86 20 143/81 (101) 99 Room Air I&O- Last 24 Hours up to 6 AM 12/04/20 06:00 Intake Total 0 ml Output Total 3000 ml Balance -3000 ml SARTHAK SILVA DO Dec 04, 2020 17:33
[2020-12-04] MEDS: MEROPENEM INJ 500 MG in IV 1 EA IV SCH (17:47)
[2020-12-04] MEDS: guaiFENesin 200 MG TAB PO PRN (17:57)
[2020-12-04 20:00] VITALS: BP 155/88
[2020-12-04] MEDS: LEVEMIR (INSULIN DETEMIR) 1 UNITS/0.01ML SC SCH (21:20)
[2020-12-05] VITALS: BP 131/80
[2020-12-05] MEDS: VANCOMYCIN ORAL SOL 250MG/5ML ORAL SYRINGE PO SCH ×4 (00:11→18:23)
[2020-12-05] MEDS: ACETAMINOPHEN TAB 650MG DOSE (2X325MG) PO PRN (00:18)
[2020-12-05 04:00] VITALS: BP 129/72
[2020-12-05] MEDS: PERCOCET 5MG/325MG TAB PO PRN ×2 (05:30→11:48)
[2020-12-05] MEDS: SODIUM CHLORIDE 0.9% INJ 10 ML SYR IV SCH ×3 (05:30→22:13)
[2020-12-05 05:55] LABS: HEMATOCRIT 27.1 % (36.0-47.0); HEMOGLOBIN 8.6 g/dl (12.0-15.5); MEAN CORPUSCULAR HEMOGLOBIN 30.2 pg (27.0-33.0); MEAN CORPUSCULAR HGB CONC 31.7 g/dl (32.0-36.5); MEAN CORPUSCULAR VOLUME 95.1 fl (80.0-96.0); PLATELET COUNT, AUTOMATED 655 10^3/uL (150-450); RED BLOOD COUNT 2.85 10^6/uL (4.00-5.40); WHITE BLOOD COUNT 19.8 10^3/uL (4.0-10.0)
[2020-12-05 06:46] LABS: CALCIUM LEVEL 8.6 MG/DL (8.5-10.1); CREATININE FOR GFR 6.09 MG/DL (0.55-1.30); GLOMERULAR FILTRATION RATE 10.2 (>60); POTASSIUM SERUM 4.2 MEQ/L (3.5-5.1); VANCOMYCIN RANDOM 32.9 UG/ML
[2020-12-05] MEDS ORDERED: SODIUM CHLORIDE 0.9% 1000ML IV PRN (07:00)
[2020-12-05] MEDS: HumaLOG INSULIN (NovoLOG) PER UNIT SC SCH ×4 (07:30→22:12)
[2020-12-05 09:16] VITALS: BP 139/73
[2020-12-05] MEDS: FUROSEMIDE 80 MG TAB PO SCH ×2 (10:06→17:03)
[2020-12-05] MEDS: **hydrALAZINE HCL** 25 MG TAB PO SCH ×3 (10:07→21:55)
[2020-12-05] MEDS: METOPROLOL TARTRATE 100 MG TAB PO SCH ×2 (10:07→21:55)
[2020-12-05] MEDS: NIFEdipine 30 MG XL TAB PO SCH (10:08)
--- NOTE | 2020-12-05 10:16 | ECHO ---
DATE OF PROCEDURE: 12/03/2020 Age: 35 Gender: Female Height: 175 cm Weight: 88 kg REFERRING PHYSICIAN: Dr. Amalia Garvey. INDICATION: Chest pain, unspecified. MEASUREMENTS: 2D Measurements: Intraventricular septum 1.06 cm Posterior wall 1.30 cm Left ventricle diastole 4.1 cm Aortic root 2.5 cm Left atrium 3.7 cm Left atrium volume index 31 cm Inferior vena cava 1.8 cm with normal respiratory variation Doppler Measurements: Very mild aortic regurgitation. No aortic stenosis. Aortic valve velocity 154 cm/s LVOT velocity 127 cm/s LVOT VTI 20.8 cm Very mild mitral regurgitation. No mitral stenosis. Mitral E velocity 108 cm/s Mitral A velocity 38.1 cm/s Mitral deceleration time 153 msec Severe tricuspid regurgitation. Estimated right ventricle systolic pressure 56 mmHg Estimated central venous pressure of 15 mmHg. Very mild pulmonic regurgitation Pulmonary artery acceleration time 124 msec MITRAL ANNULAR TISSUE DOPPLER E prime lateral 8.7 cm/s, E prime septal 6.2 cm/s DESCRIPTION: Rhythm was sinus. Image quality was fair. No pericardial effusion. This was a 2D, M-mode, color flow Doppler, and pulsed wave Doppler examination including mitral annular tissue Doppler. CONCLUSIONS: 1. Borderline concentric left ventricular hypertrophy. Normal regional LV wall motion and wall thickening. Normal LV systolic function. LVEF 60% by visual estimate. Restrictive diastolic LV filling pattern. 2. Mild left atrial dilatation by left atrial volume index. 3. Suggestive of moderate elevation of estimated right ventricle systolic pressure (56 mmHg). Structurally normal appearing tricuspid leaflets. Severe tricuspid regurgitation. Normal right ventricle size and systolic function. Partial flattening of the interventricular septum in both diastole and systole in keeping with both volume and pressure overload of the right ventricle. Mild right atrial dilatation by visual assessment. 4. Mild aortic valve sclerosis with a 3-cusp aortic valve. Very mild aortic regurgitation. 5. Otherwise normal appearing echocardiogram Doppler findings. [facility]
--- NOTE | 2020-12-05 10:59 | IPNPDOC ---
Text Note Date of Service The patient was seen on 12/05/20. NOTE Subjective: Patient was febrile overnight with fever of 101.5. Objective: GENERAL APPEARANCE: In mild distress HEENT: no scleral icterus, no JVD, EOMI CARDIOVASCULAR: S1S2 LUNGS: CTA ABDOMEN: soft & not tender w palpitation MUSCULOSKELETAL: Dressing in place bilaterally. INTEGUMENT: no generalized pallor NEUROLOGICAL: cranial nerve function from 2-12 intact intact, follows commands, speech not dysarthric Assessment and plan Patient is a 35 yr old w a hx of IDDM1 w neuropathy, retinopathy, Pulm HTN and Essential HTN who is admitted for management of suspected left 5th toe osteomyelitis. ] Bilateral fifth osteomyelitis Dr. Mondragon took her to OR 12/02 for bilateral fifth metatarsal head excision Wound culture positive for Enterococcus faecalis and Escherichia coli ESBL Continue meropenem and vancomycin IV during dialysis Blood culture negative Will repeat blood culture due to fever overnight Pain management Appreciate/agree with ID consult C. difficile diarrhea Continue by mouth vancomycin Chest pain Resolved Cardiac Workup negative End-stage renal diseases Nephrology team follows him Continue dialysis Hypertension Blood pressure under control Managed with dialysis Continue home meds Type 1 diabetes Glucose level under control Insulin sliding scale Detemir Anemia Most likely due to end-stage renal disease Will discuss Aranesp with nephrology team VS,Kiana, I+O VS, Kiana, I+O Laboratory Tests 12/05/20 05:27 Vital Signs Date Time Temp Pulse Resp B/P (MAP) Pulse Ox O2 Delivery O2 Flow Rate FiO2 12/05/20 10:07 73 139/73 12/05/20 09:16 98.9 18 93 Room Air I&O- Last 24 Hours up to 6 AM 12/05/20 06:00 Intake Total 1340 ml Output Total 0 ml Balance 1340 ml SARTHAK SILVA DO Dec 05, 2020 10:58
[2020-12-05 11:30] VITALS: BP 140/75
--- NOTE | 2020-12-05 13:09 | IPN ---
PROGRESS NOTE DATE: 12/05/2020 SUBJECTIVE: The patient was seen and examined at the bedside today morning. She reports that her diarrhea is getting better. She still reports pain in the lower extremities, left is worse than right. Today's is the patient's regular day of dialysis. OBJECTIVE: VITAL SIGNS: Temperature 98.1 degrees Fahrenheit, blood pressure 140/75, pulse 77, respirations 18, saturation 94% on room air. INTAKE AND OUTPUT: There was one bowel movement recorded from yesterday. Weight on the bed scale is 94.7 kg today. GENERAL APPEARANCE: The patient is awake, alert, and oriented x3 laying in bed, in no apparent distress. HEAD AND NECK: Extraocular muscles intact. Pupils equally round and reactive to light. Mucous membranes are moist. Neck is supple. There is no JVD. She has a tunneled hemodialysis catheter. CARDIOVASCULAR: S1, S2. Regular rate. 2+ edema of the left lower extremity and 1+ edema of the right lower extremity. RESPIRATORY: Chest is clear to auscultation bilaterally. Bilaterally currently no rales or rhonchi. ABDOMEN: Soft with positive bowel sounds and nontender with no organomegaly. MUSCULOSKELETAL: She has dressing on both feet and they are tender to deep palpation. WAFER POLISHER: No focal deficits. Power is 5/5 in all extremities. LABORATORY REVIEW: CBC showed a WBC of 19.8, hemoglobin 8.6, platelets 655,000. BMP showed sodium 131, potassium 4.2, chloride 95, bicarb 24, BUN 24, creatinine 6. MICROBIOLOGY: Wound culture is growing ESBL E. coli and Enterococcus faecalis. CURRENT INPATIENT MEDICATIONS: The patient's medications were all reviewed by myself. She is currently on IV meropenem, which was started yesterday. She needs to be started on IV vancomycin as well for complete coverage of infection. She continues to be on oral vancomycin for C. diff infection. ASSESSMENT AND PLAN: 1. End-stage renal disease. The patient will be dialyzed according to her regular schedule today. Ultrafiltration goal will be 3 liters. 2. Hypertension with hypertensive heart disease. Volume status is optimal. She is taking her medications right now and blood pressures are significantly better. 3. Bilateral foot infection. The patient has been started on meropenem. It is challenging to treat her foot infection because she has Clostridium difficile (C. diff) as well. Consider getting infectious disease (ID) on board. Both of her bacteria that are growing in the culture are sensitive to fluoroquinolones. 4. C. diff colitis. Continue oral vancomycin. Diarrhea is getting better. 5. Insulin-dependent diabetes. Glucose levels are controlled with the current regimen at this time.
[2020-12-05 16:56] VITALS: BP 177/99
[2020-12-05] MEDS ORDERED: diphenhydrAMINE 50MG/ML VIAL (J1200) IM PRN (17:00)
[2020-12-05] MEDS: MEROPENEM INJ 500 MG in IV 1 EA IV SCH (17:03)
[2020-12-05] MEDS: diphenhydrAMINE 50MG/ML VIAL (J1200) IV PRN (17:34)
[2020-12-05] MEDS ORDERED: LevoFLOXacin 750 MG TABLET PO ONE (19:15)
[2020-12-05 20:00] VITALS: BP 166/81
[2020-12-05] MEDS: FIDAXOMICIN 200 MG TAB (DIFICID) PO SCH (21:54)
[2020-12-05] MEDS: LEVEMIR (INSULIN DETEMIR) 1 UNITS/0.01ML SC SCH (21:57)
[2020-12-06] VITALS: BP 140/79
[2020-12-06] MEDS: PERCOCET 5MG/325MG TAB PO PRN ×2 (02:23→18:23)
[2020-12-06 04:00] VITALS: BP 118/60
[2020-12-06] MEDS: diphenhydrAMINE 50MG/ML VIAL (J1200) IV PRN ×3 (06:00→23:44)
[2020-12-06] MEDS: SODIUM CHLORIDE 0.9% INJ 10 ML SYR IV SCH ×3 (06:00→21:44)
[2020-12-06 06:10] LABS: HEMATOCRIT 25.8 % (36.0-47.0); HEMOGLOBIN 8.3 g/dl (12.0-15.5); MEAN CORPUSCULAR HEMOGLOBIN 30.1 pg (27.0-33.0); MEAN CORPUSCULAR HGB CONC 32.2 g/dl (32.0-36.5); MEAN CORPUSCULAR VOLUME 93.5 fl (80.0-96.0); PLATELET COUNT, AUTOMATED 721 10^3/uL (150-450); RED BLOOD COUNT 2.76 10^6/uL (4.00-5.40); WHITE BLOOD COUNT 17.5 10^3/uL (4.0-10.0)
[2020-12-06 06:40] LABS: CALCIUM LEVEL 7.7 MG/DL (8.5-10.1); CREATININE FOR GFR 5.01 MG/DL (0.55-1.30); GLOMERULAR FILTRATION RATE 12.8 (>60); POTASSIUM SERUM 4.5 MEQ/L (3.5-5.1)
[2020-12-06] MEDS: HumaLOG INSULIN (NovoLOG) PER UNIT SC SCH ×4 (07:30→21:00)
[2020-12-06 07:56] VITALS: BP 112/61
--- NOTE | 2020-12-06 09:13 | CR ---
CONSULTATION DATE: 12/05/2020 This is a Telehealth consultation as I am quarantined. Patient was seen in the dialysis unit with dialysis nurse, Nerissa, at the bedside. REASON FOR CONSULTATION: Diabetic foot ulcer with osteomyelitis of the left foot and Clostridium (C) difficile collitis. HISTORY OF PRESENT ILLNESS: Narcisa is a 35-year-old female who presented to [facility] on December 02, 2020 with left foot pain and swelling and infection. The patient has a history of chronic ulceration of both feet for about two years. Both ulcers were on the metatarsal and she follows up with Dr. Mondragon regularly. She also had been seen in the past by the wound center, Dr. Torin Camara, but is not following the wound center currently. She was hospitalized November 25, 2020 with abdominal pain and diarrhea and discharged on November 27, 2020. At that time, she did not have any fever. Her white count was 12,000 and she did not receive any antibiotics. She was treated for fluid overload and uncontrolled diabetes. She comes back with left foot pain. No nausea or vomiting, but had diarrhea. No abdominal pain. She denies having received outpatient antibiotics. She was taken to the operating room by Dr. Mondragon on December 02, 2020. He dbrided both ulcers and noted osteomyelitis of the left foot and the right foot only had a diabetic foot ulcer with no evidence of infection. A culture, aerobic/anaerobic was done from the left side and was positive for extended spectrum beta-lactamase (ESBL) Escherichia (E) coli and Enterococcus faecalis. Patient has received different antibiotics. On December 01, 2020, she received ceftriaxone and vancomycin, then was switched to Zosyn until December 04, 2020. She was then switched to intravenous (IV) meropenem for ESBL Escherichia (E) coli. For Clostridium (C) difficile colitis, she was started on vancomycin 125 mg by mouth four times a day. PAST MEDICAL HISTORY: Significant for: 1. Juvenile diabetes diagnosed at the age of 9. 2. End-stage renal disease on dialysis since December 2018. 3. Hypertension. 4. Anemia of chronic disease. 5. Diabetic nephropathy. 6. Retinopathy. 7. Peripheral neuropathy. 8. Pulmonary hypertension. PAST SURGICAL HISTORY: 1. Arteriovenous (AV) fistula. 2. Right internal jugular (IJ) tunneled hemodialysis catheter placement. 3. (C) section. ALLERGIES: TAPE, LATEX, MORPHINE, PEANUTS. FAMILY HISTORY: No history of renal disease. SOCIAL HISTORY: She is from [place]. She moved to live with her sister, who is in the . Her primary care provider is Carolann Bear at [facility] and she lives in [place], [place]. She denies alcohol, drug abuse or illicit drug use. REVIEW OF SYSTEMS: She had fevers. No chills. She does complain of being fatigued. She denies headache, blurry vision, dysphagia, dysphonia. She had diarrhea, which is improving. No nausea or vomiting. She has no dysuria, hematuria, back pain. She has some pain in her left foot. PHYSICAL EXAMINATION: She is a pleasant black female in no acute distress seen during dialysis. HEAD AND NECK: Sclerae anicteric. Neck is supple. Right IJ hemodialysis catheter. CARDIOVASCULAR EXAM: Reviewed from primary team note. Normal S1, S2. EXTREMITIES: Were examined with the nurse at the bedside. The right foot has an incision along the fifth metatarsal measuring about 5 cm. Looks burkett. There is no redness, purulence, drainage. Left foot has an open incision measuring about 2.5 x 2.5 cm along the fifth metatarsal. It is triangular in shape. There are also sutures in place. She has +1 pitting edema. There is some tenderness to touch along the wyatt and mildly warm left leg to mid-calf. ABDOMEN: No tenderness. Soft, obese. VITAL SIGNS: Temperature 98.3, pulse 86, respirations 18, blood pressure 177/99, oxygen saturation 100% on room air. Maximum temperature (T-max) today was 101.5 on December 05, 2020. LABORATORY DATA: White count 19.8, hemoglobin 8.6, hematocrit 27.1, platelets 655. Sodium 131, potassium 4.2, chloride 95, bicarbonate 24, BUN 24, creatinine 6, glucose 92, calcium 8.6. Procalcitonin 7.18. Blood cultures November 30, 2020 and December 01, 2020, total of three sets were negative. On December 01, 2020, stool Hemoccult negative. Left foot culture had ESBL Escherichia (E) coli and Enterococcus faecalis. Moderate growth of Escherichia (E) coli and heavy growth of Enterococcus faecalis, both susceptible to levofloxacin. Repeat blood cultures done on December 05, 2020 were negative. December 01, 2020: Clostridium (C) difficile toxin positive. SARS CoV-2, influenza A, B , respiratory syncytial virus (RSV) negative. IMAGING STUDIES: Foot x-ray: Soft tissue swelling of the right forefoot with first to fifth toes held in extension at the metatarsophalangeal joint. Left foot: There were changes involving the phalanx of the left fifth toe and left fifth metatarsal consistent with osteomyelitis. There was also soft tissue gas and soft tissue swelling in that region. Could be consistent with a gas-forming infection. Chest x-ray December 01, 2020 shows bilateral central venous lines. No complications seen. Cardiomegaly. Abdominal x-ray done on December 01, 2020 showed normal acute radiographic changes. No bowel obstruction. IMPRESSION: This is a 35-year-old female with a history of end-stage renal disease, juvenile diabetes, bilateral diabetic foot ulcers who presented with acute, painful left foot, fever, with evidence of left foot cellulitis and acute osteomyelitis with culture confirmed Enterococcus faecalis and ESBL Escherichia (E) coli. Patient went for debridement to the operating room (OR) with Dr. Mondragon and has been on combination meropenem, vancomycin, Zosyn for the past three days. She has a persistent fever. The patient also had Clostridium (C) difficile colitis what was diagnosed on admission and has been on vancomycin 125 mg four times a day since December 01, 2020, currently day #5. Patient has a high risk for recurrent Clostridium (C) difficile due to the fact that she has end-stage renal disease and leukocytosis and needs prolonged antibiotics. She would definitely benefit from fidaxomicin over vancomycin. PLAN: The challenge would be to find the narrowest spectrum antibiotic that would cover both pathogens and treat her for the shortest duration possible. I suggest switching to levofloxacin at a dosage of 500 mg dose loading followed by 500 mg every 48 hours. Discontinue IV meropenem. There is no need for anaerobic coverage, as anaerobes were negative. Discontinue oral vancomycin and switch to Dificid 200 mg by mouth twice a day for at least a two week course. Patient may also benefit from IV Zinplava (bezlotoxumab) as an outpatient to decrease her risk for recurrence with prolonged antibiotics. Probiotics one table by mouth twice a day was also ordered. This consultation was done through Telemedicine with Face Time through the [facility] iPad system. [facility]
[2020-12-06] MEDS: LACTOBACILLUS ACIDOPHILUS CAP (BACID) PO SCH ×2 (09:28→18:16)
[2020-12-06] MEDS: NIFEdipine 30 MG XL TAB PO SCH (09:33)
[2020-12-06] MEDS: FUROSEMIDE 80 MG TAB PO SCH ×2 (09:34→18:16)
[2020-12-06] MEDS: **hydrALAZINE HCL** 25 MG TAB PO SCH ×3 (09:34→21:45)
[2020-12-06] MEDS: FIDAXOMICIN 200 MG TAB (DIFICID) PO SCH ×2 (09:34→21:46)
[2020-12-06] MEDS: METOPROLOL TARTRATE 100 MG TAB PO SCH ×2 (09:34→21:46)
[2020-12-06 11:51] VITALS: BP 153/83
[2020-12-06] MEDS: (RENVELA) SEVELAMER **CARBONate** 800 MG TAB PO SCH ×2 (12:11→18:16)
--- NOTE | 2020-12-06 13:13 | IPNPDOC ---
Text Note Date of Service The patient was seen on 12/06/20. NOTE Subjective: No any acute events overnight. Patient was afebrile for 24 hours Objective: GENERAL APPEARANCE: In mild distress HEENT: no scleral icterus, no JVD, EOMI CARDIOVASCULAR: S1S2 LUNGS: CTA ABDOMEN: soft & not tender w palpitation MUSCULOSKELETAL: Dressing in place bilaterally. INTEGUMENT: no generalized pallor NEUROLOGICAL: cranial nerve function from 2-12 intact intact, follows commands, speech not dysarthric Assessment and plan Patient is a 35 yr old w a hx of IDDM1 w neuropathy, retinopathy, Pulm HTN and Essential HTN who is admitted for management of suspected left 5th toe osteomyelitis. ] Bilateral fifth osteomyelitis Dr. Mondragon took her to OR 12/02 for bilateral fifth metatarsal head excision Wound culture positive for Enterococcus faecalis and Escherichia coli ESBL Levaquin by mouth had a chest Blood culture negative Will repeat blood culture due to fever overnight Pain management C. difficile diarrhea Continue by mouth fidaxomicin Chest pain Resolved Cardiac Workup negative End-stage renal diseases Nephrology team follows him Continue dialysis Hypertension Managed with dialysis Continue home meds Added Norvasc Type 1 diabetes Glucose level under control Insulin sliding scale Detemir Anemia Most likely due to end-stage renal disease Aranesp during dialysis VS,Fishbone, I+O VS, Fishbone, I+O Laboratory Tests 12/06/20 05:49 Vital Signs Date Time Temp Pulse Resp B/P (MAP) Pulse Ox O2 Delivery O2 Flow Rate FiO2 12/06/20 11:51 97.7 89 18 153/83 (106) 100 Room Air I&O- Last 24 Hours up to 6 AM 12/06/20 06:00 Intake Total 360 ml Output Total 3000 ml Balance -2640 ml SARTHAK SILVA DO Dec 06, 2020 13:13
[2020-12-06 13:40] LABS: PHOSPHORUS LEVEL 5.4 MG/DL (2.5-4.9)
[2020-12-06 16:05] VITALS: BP 116/64
[2020-12-06 20:00] VITALS: BP 120/71
--- NOTE | 2020-12-06 21:25 | IPN ---
PROGRESS NOTE DATE: 12/06/2020 SUBJECTIVE: Patient was seen and examined on the bedside today morning. She is afebrile, hemodynamically stable. She was dialyzed yesterday and 3 liters of fluid was removed. She reports lower extremity edema is getting better. Her diarrhea is also improving. She has semi-formed stools now. She is complaining of itching on the body and reports that she has not been taking her binders and she wants to restart her binders now. OBJECTIVE: VITAL SIGNS: Temperature 96.8 degrees Fahrenheit, blood pressure 116/64, pulse 84, respiratory rate 18, saturating 97% on room air. INTAKE AND OUTPUT: Urine output is not recorded. Ultrafiltration with hemodialysis was 3 liters. Weight in the bed scale is 94.1 kg. PHYSICAL EXAMINATION: GENERAL: Patient is awake, alert, oriented times three, laying in the bed in no apparent distress. HEAD AND NECK EXAM: Extraocular muscles intact. Pupils equally round and reactive to light. Mucous membranes are moist. Neck is supple. She has a right internal jugular (IJ) tunneled hemodialysis catheter. CARDIOVASCULAR: S1, S2. Regular rate. 1+ edema on the left lower extremity and trace edema of the right lower extremity. RESPIRATORY: Chest is clear to auscultation bilaterally. Bilateral equal air entry. No rales or rhonchi. ABDOMEN: Soft. Positive bowel sounds. Nontender. No organomegaly. MUSCULOSKELETAL: She has dressings on both feet. 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 Power is 5/5 in all extremities. LABORATORY REVIEW: CBC showed a WBC 17.5, hemoglobin 8.3, platelets 721. BMP showed sodium 133, potassium 4.5, chloride 96, bicarbonate 25, BUN 22, creatinine 5, glucose 260, calcium 7.7, phosphorus 5.4. MICROBIOLOGY: Repeat blood cultures from yesterday are negative so far. CURRENT INPATIENT MEDICATIONS: Patient's medications were all reviewed by myself. She has been started on Levaquin 500 mg by mouth every 48 hours. She is on Dificid 200 mg by mouth twice a day and I have started her back on Renvela 1600 mg by mouth with meals. ASSESSMENT AND PLAN: 1. End-stage renal disease. Patient was dialyzed according to her regular schedule yesterday. Next hemodialysis will be done tomorrow morning. 2. Hypertension with hypertensive heart disease. Volume status is being optimized with dialysis. Continue current antihypertensive regimen. Blood pressure is well-controlled. 3. Chronic kidney disease/mineral bone disease. Phosphorus level is high and Renvela has been restarted. 4. Bilateral foot infection. She has been started on oral Levaquin as per infectious disease. 5. Clostridium (C) difficile colitis. Patient's diarrhea is getting better. Oral vancomycin has been stopped. She is currently on Dificid. 6. Insulin dependent diabetes. Glucose is controlled with current regimen.
[2020-12-06] MEDS: LEVEMIR (INSULIN DETEMIR) 1 UNITS/0.01ML SC SCH (21:47)
[2020-12-07] VITALS (12 sets, daily range): BP systolic 117–195; BP diastolic 55–93
[2020-12-07] MEDS: SODIUM CHLORIDE 0.9% INJ 10 ML SYR IV SCH ×3 (05:14→21:22)
[2020-12-07 05:29] LABS: HEMATOCRIT 25.3 % (36.0-47.0); HEMOGLOBIN 7.8 g/dl (12.0-15.5); MEAN CORPUSCULAR HEMOGLOBIN 29.5 pg (27.0-33.0); MEAN CORPUSCULAR HGB CONC 30.8 g/dl (32.0-36.5); MEAN CORPUSCULAR VOLUME 95.8 fl (80.0-96.0); PLATELET COUNT, AUTOMATED 712 10^3/uL (150-450); RED BLOOD COUNT 2.64 10^6/uL (4.00-5.40); WHITE BLOOD COUNT 14.7 10^3/uL (4.0-10.0)
[2020-12-07] MEDS ORDERED: ONDANSETRON 4MG/2ML VIAL IV PRN (06:00)
[2020-12-07] MEDS ORDERED: LevoFLOXacin 500 MG TABLET PO SCH (06:00)
[2020-12-07 06:25] LABS: CALCIUM LEVEL 7.9 MG/DL (8.5-10.1); CREATININE FOR GFR 6.26 MG/DL (0.55-1.30); GLOMERULAR FILTRATION RATE 9.9 (>60); POTASSIUM SERUM 4.9 MEQ/L (3.5-5.1)
[2020-12-07] MEDS: HumaLOG INSULIN (NovoLOG) PER UNIT SC SCH ×4 (07:06→21:00)
[2020-12-07] MEDS: (RENVELA) SEVELAMER **CARBONate** 800 MG TAB PO SCH ×4 (08:00→17:19)
[2020-12-07] MEDS: LACTOBACILLUS ACIDOPHILUS CAP (BACID) PO SCH ×3 (08:00→17:19)
[2020-12-07] MEDS: ACETAMINOPHEN TAB 650MG DOSE (2X325MG) PO PRN (08:22)
[2020-12-07] MEDS: LevoFLOXacin 500 MG TABLET PO SCH ×2 (08:22→10:14)
[2020-12-07] MEDS: FIDAXOMICIN 200 MG TAB (DIFICID) PO SCH ×3 (08:22→21:19)
[2020-12-07] MEDS: FUROSEMIDE 80 MG TAB PO SCH ×2 (09:00→16:52)
[2020-12-07] MEDS: **hydrALAZINE HCL** 25 MG TAB PO SCH ×3 (09:00→21:19)
[2020-12-07] MEDS: METOCLOPRAMIDE INJ 10MG/2ML VIAL (J2765 PER 1) IV SCH ×2 (09:47→16:50)
--- NOTE | 2020-12-07 09:55 | REP ---
INDICATION: PNA. COMPARISON: Comparison chest x-ray 01 December 2020.. TECHNIQUE: Portable upright AP chest radiograph. FINDINGS: Heart is prominent as before. A dual lumen right IJ line and a left subclavian Nobmeu-[id number]-Kbyp catheter terminating in the expected location of the superior vena cava as before. No infiltrate is seen. Pleural angles are sharp. Pulmonary vasculature is not increased. No bony abnormality is seen. IMPRESSION: Prominent heart. Bilateral central lines. <Electronically signed by Kip Rizzo > 12/07/20 0952
[2020-12-07] MEDS: guaiFENesin 200 MG TAB PO PRN (10:13)
[2020-12-07] MEDS: diphenhydrAMINE 50MG/ML VIAL (J1200) IV PRN (10:13)
[2020-12-07] MEDS: PERCOCET 5MG/325MG TAB PO PRN ×2 (10:14→16:51)
--- NOTE | 2020-12-07 11:22 | IPNPDOC ---
Text Note Date of Service The patient was seen on 12/07/20. NOTE Subjective: Patient developed fever overnight of 101.8. She developed nausea and few episodes of vomiting in the morning. Objective: GENERAL APPEARANCE: In mild distress HEENT: no scleral icterus, no JVD, EOMI CARDIOVASCULAR: S1S2 LUNGS: CTA ABDOMEN: soft & not tender w palpitation MUSCULOSKELETAL: Dressing in place bilaterally. INTEGUMENT: no generalized pallor NEUROLOGICAL: cranial nerve function from 2-12 intact intact, follows commands, speech not dysarthric Assessment and plan Patient is a 35 yr old w a hx of IDDM1 w neuropathy, retinopathy, Pulm HTN and Essential HTN who is admitted for management of suspected left 5th toe osteomyelitis. ] Bilateral fifth osteomyelitis Dr. Mondragon took her to OR 12/02 for bilateral fifth metatarsal head excision Wound culture positive for Enterococcus faecalis and Escherichia coli ESBL Levaquin by mouth Blood culture negative. I repeated blood culture due to episode of fever Pain management Will discuss with Dr. Krishnamurthy put patient back on IV antibiotics C. difficile diarrhea Resolved Continue by mouth fidaxomicin Chest pain Resolved Cardiac Workup negative End-stage renal diseases Nephrology team follows him Continue dialysis Hypertension Managed with dialysis Continue home meds Added Norvasc Type 1 diabetes Glucose level under control Insulin sliding scale Detemir Anemia Most likely due to end-stage renal disease Aranesp during dialysis 1 unit of blood will be transfused VS,Fishbone, I+O VS, Fishbone, I+O Laboratory Tests 12/07/20 05:07 Vital Signs Date Time Temp Pulse Resp B/P (MAP) Pulse Ox O2 Delivery O2 Flow Rate FiO2 12/07/20 10:44 18 Room Air 12/07/20 08:00 101.8 89 151/63 (92) 90 I&O- Last 24 Hours up to 6 AM 12/07/20 06:00 Intake Total 960 ml Output Total 0 ml Balance 960 ml SARTHAK SILVA DO Dec 07, 2020 11:22
[2020-12-07] MEDS: METOPROLOL TARTRATE 100 MG TAB PO SCH ×2 (15:33→21:19)
[2020-12-07] MEDS: NIFEdipine 30 MG XL TAB PO SCH (16:51)
[2020-12-07] MEDS ORDERED: VANCOMYCIN HCL 1,000 MG, VIAL MATE ADAPTER 1 EACH in D5W 250 ML IV ONE (18:00)
--- NOTE | 2020-12-07 18:28 | IPN ---
PROGRESS NOTE DATE: 12/07/2020 SUBJECTIVE: Patient was seen and examined at the bedside today morning. Patient is having fever spikes at this time. Maximum temperature is 101.8 degrees Fahrenheit. Today is patient's regular day of dialysis. Her diarrhea is getting better. She reports that she still has some skin itching, and she is getting Benadryl for that. OBJECTIVE: Vital signs: Maximum temperature is 101.8 degrees Fahrenheit, current temperature is 99.1 degrees Fahrenheit, blood pressure 176/82, pulse is 100, respiratory rate of 18, saturating 97% on room air. Intake and output: There is no significant urine output recorded. Weight in the bed scale is 95.8 kg. PHYSICAL EXAMINATION: GENERAL: Patient is awake, alert, oriented times three, lying in bed in no apparent distress. HEAD AND NECK: Extraocular muscles intact. Pupils equally round and reactive to light. She has a right internal jugular (IJ) tunneled hemodialysis catheter. CARDIOVASCULAR: S1, S2, regular rate. Edema 2+ left lower extremity, 1+ edema right lower extremity. RESPIRATORY: Chest is clear to auscultation bilaterally. Bilateral equal air entry. No rales or rhonchi. ABDOMEN: Soft. Positive bowel sounds. Nontender. No organomegaly. MUSCULOSKELETAL: Patient has a dressing on both feet. CENTRAL NERVOUS SYSTEM: No focal deficit. Power is 5/5 in all extremities. LABORATORY REVIEW: CBC showed WBC 14.7, hemoglobin 7.8, platelets are 712. BMP showed sodium 130, potassium 4.9, chloride 95, bicarbonate is 24, BUN 27, creatinine is 6.2. Calcium is 7.9. Microbiology: Repeat blood cultures were drawn again, and they are negative. IMAGING: A chest x-ray was done today morning, and it showed prominent heart and bilateral central lines. CURRENT INPATIENT MEDICATIONS: Patient's medications were all reviewed by myself. Levofloxacin has been stopped. Patient has been started on vancomycin and ertapenem as per infectious disease, and she continues to be on Dificid. ASSESSMENT AND PLAN: 1. End-stage renal disease. Patient will be dialyzed according to her regular schedule today. Three liters of fluid will be removed. 2. Anemia. Patient will get 1 unit of packed red blood cells (PRBC) transfusion with dialysis. 3. Chronic kidney disease and mineral bone disease. Continue current dose of Renvela. 4. Bilateral foot infections. Patient was having fever spikes with Levaquin. Antibiotic has been changed back to intravenous (IV) Invanz and vancomycin. 5. Clostridium (C) difficile colitis. Diarrhea is better. She is currently on Dificid. 6. Insulin-dependent diabetes. Continue current insulin regimen. Glucose levels are within the acceptable range.
[2020-12-07] MEDS: ERTAPENEM SODIUM 0.5 GM in NS 50 ML IV SCH (18:31)
[2020-12-07] MEDS: LEVEMIR (INSULIN DETEMIR) 1 UNITS/0.01ML SC SCH (21:22)
--- NOTE | 2020-12-07 22:29 | IPN ---
PROGRESS NOTE DATE: 12/07/2020 SUBJECTIVE: This visit was done with face time with I-pad service nurse in the room and Dr. Sammy Fontanez. Narcisa had just come back from dialysis and had her dressing changes done during the visit. The patient was complaining of severe pain in her left foot. Denied pain in her right foot. She stated her diarrhea is much better. She had an episode of nausea and vomiting this morning and a temperature of 101.8 within the past 24 hours. She complained of itching skin. PHYSICAL EXAMINATION: T-max 101.8, currently 99.1, blood pressure 176/82, pulse 100, respiratory rate 18, O2 saturation 97% on room air. Weight 95.8. General appearance: Healthy looking black female in no acute distress. HEENT: Neck is supple. Abdomen is soft per nurses. Extremities: Left foot: +1 pitting edema, tender with some maceration around the ulcer with purplish discoloration, sutures in place. Right foot has sutures along the 1st metatarsal with no redness or tenderness or maceration. LABORATORY DATA: White count 14.7, hemoglobin 7.8, hematocrit 25.3, platelets 712. Sodium 130, potassium 4.9, chloride 95, bicarbonate 24, BUN 27, creatinine 6.26, glucose 98, calcium 7.9, procalcitonin 7.18. Operative cultures from the left foot had ESBL E.coli and Enterococcus faecalis. ESBL E. coli is sensitive to ertapenem and E. faecalis sensitive to Cipro, levofloxacin, penicillin G and vancomycin Chest x-ray done on 12/07 for shortness of breath showed no acute infiltrate. Permanent heart with central lines in place. A dual right IJ line and left subclavian infusaport catheter. Hemodialysis catheter. IMPRESSION: 1. Left foot osteomyelitis and abscess that was drained by Dr. Mondragon on 12/02 with E. coli ESBL and E. faecalis. The patient initially was on meropenem on 12/05 and vancomycin. Because of Clostridium difficile colitis, the patient was deescalated to levofloxacin, which would have been sufficient for both pathogens, but the wound looks worse. The patient will be switched back to ertapenem to cover for ESBL and vancomycin. would obtain foot MRI or CT with contrast 2. Mild dyspnea. No evidence of pulmonary disease, most likely related to fluid overload. 3. Right foot, diabetic foot ulcer with no infection 4. Clostridium difficile colitis, continue with fidaxomicin along with probiotics. The patient will need to stay on fidaxomicin as long as she is on antibiotics. She is at high risk of recurrent Clostridium difficile with renal failure and multiple comorbidities. PLAN: Discontinue levofloxacin, start ertapenem 0.5 gm IV q 24 hours, vancomycin with dialysis and obtain follow up MRI of foot to look if she needs further debridement. MTDD
[2020-12-08] VITALS (7 sets, daily range): BP systolic 110–132; BP diastolic 56–68
[2020-12-08] MEDS: METOCLOPRAMIDE INJ 10MG/2ML VIAL (J2765 PER 1) IV SCH ×3 (01:05→16:07)
[2020-12-08] MEDS: SODIUM CHLORIDE 0.9% INJ 10 ML SYR IV SCH ×3 (05:16→22:04)
[2020-12-08] MEDS: ACETAMINOPHEN TAB 650MG DOSE (2X325MG) PO PRN (05:33)
[2020-12-08] MEDS ORDERED: VANCOMYCIN HCL 1,000 MG, VIAL MATE ADAPTER 1 EACH in D5W 250 ML IV SCH (06:00)
[2020-12-08 07:35] LABS: BASO # 0.1 10^3/uL (0.0-0.2); BASO % 0.3 % (0.0-1.0); EOS # 0.1 10^3/uL (0.0-0.5); EOS % 0.4 % (0.0-3.0); HEMATOCRIT 27.8 % (36.0-47.0); HEMOGLOBIN 8.8 g/dl (12.0-15.5); LYMPH # 1.5 10^3/uL (1.5-5.0); LYMPH % 9.2 % (24.0-44.0); MEAN CORPUSCULAR HGB CONC 31.7 g/dl (32.0-36.5); MEAN CORPUSCULAR VOLUME 91.7 fl (80.0-96.0); MONO # 0.9 10^3/uL (0.0-0.8); MONO % 5.5 % (0.0-5.0); NEUTROPHILS # 13.7 10^3/uL (1.5-8.5); NEUTROPHILS % 83.4 % (36.0-66.0); PLATELET COUNT, AUTOMATED 755 10^3/uL (150-450); RED BLOOD COUNT 3.03 10^6/uL (4.00-5.40); WHITE BLOOD COUNT 16.5 10^3/uL (4.0-10.0)
[2020-12-08 08:09] LABS: ALBUMIN 1.7 GM/DL (3.2-5.2); CALCIUM LEVEL 8.1 MG/DL (8.5-10.1); CREATININE FOR GFR 5.13 MG/DL (0.55-1.30); GLOMERULAR FILTRATION RATE 12.5 (>60); POTASSIUM SERUM 4.6 MEQ/L (3.5-5.1)
[2020-12-08] MEDS: HumaLOG INSULIN (NovoLOG) PER UNIT SC SCH ×4 (08:54→21:00)
[2020-12-08] MEDS: guaiFENesin 200 MG TAB PO PRN (08:54)
[2020-12-08] MEDS: NIFEdipine 30 MG XL TAB PO SCH (08:55)
[2020-12-08] MEDS: LACTOBACILLUS ACIDOPHILUS CAP (BACID) PO SCH ×2 (08:55→17:06)
[2020-12-08] MEDS: FIDAXOMICIN 200 MG TAB (DIFICID) PO SCH ×2 (08:55→22:05)
[2020-12-08] MEDS: **hydrALAZINE HCL** 25 MG TAB PO SCH ×3 (08:55→22:06)
[2020-12-08] MEDS: (RENVELA) SEVELAMER **CARBONate** 800 MG TAB PO SCH ×3 (08:55→17:06)
[2020-12-08] MEDS: PERCOCET 5MG/325MG TAB PO PRN (08:56)
[2020-12-08] MEDS: FUROSEMIDE 80 MG TAB PO SCH ×2 (08:56→16:06)
[2020-12-08] MEDS: METOPROLOL TARTRATE 100 MG TAB PO SCH ×2 (08:57→22:05)
--- NOTE | 2020-12-08 10:39 | IPNPDOC ---
Text Note Date of Service The patient was seen on 12/08/20. NOTE Subjective: Patient continues to have fever overnight 103.4. Objective: GENERAL APPEARANCE: In mild distress HEENT: no scleral icterus, no JVD, EOMI CARDIOVASCULAR: S1S2 LUNGS: CTA ABDOMEN: soft & not tender w palpitation MUSCULOSKELETAL: Inflamed left lateral foot in the place of amputation INTEGUMENT: no generalized pallor NEUROLOGICAL: cranial nerve function from 2-12 intact intact, follows commands, speech not dysarthric Assessment and plan Patient is a 35 yr old w a hx of IDDM1 w neuropathy, retinopathy, Pulm HTN and Essential HTN who is admitted for management of suspected left 5th toe osteomyelitis. ] Sepsis Patient continues to be septic with high fever, leukocytosis I will repeat blood cultures today Continue broad-spectrum antibiotics Will proceed with CT chest/abdomen/pelvis I discussed the case with Dr. Rodriguez, he recommended MRI of left foot Will check pro calcitonin, CRP and sedimentation rate Bilateral fifth osteomyelitis Dr. Mondragon took her to OR 12/02 for bilateral fifth metatarsal head excision Wound culture positive for Enterococcus faecalis and Escherichia coli ESBL Blood culture negative. Await results for repeated blood culture Pain management Dr. Krishnamurthy changed her antibiotics to vancomycin IV and and Ertapenem IV C. difficile diarrhea Resolved Continue by mouth fidaxomicin Chest pain Resolved Cardiac Workup negative End-stage renal diseases Nephrology team follows him Continue dialysis Hypertension Managed with dialysis Continue home meds Added Norvasc Type 1 diabetes Glucose level under control Insulin sliding scale Detemir Anemia Most likely due to end-stage renal disease Aranesp during dialysis 1 unit of blood was transfused yesterday VS,Fishbone, I+O VS, Fishbone, I+O Laboratory Tests 12/08/20 07:15 Vital Signs Date Time Temp Pulse Resp B/P (MAP) Pulse Ox O2 Delivery O2 Flow Rate FiO2 12/08/20 09:26 18 Room Air 12/08/20 08:57 95 125/68 12/08/20 07:53 103.4 94 I&O- Last 24 Hours up to 6 AM 12/08/20 06:00 Intake Total 1415 ml Output Total 3000 ml Balance -1585 ml SARTHAK SILVA DO Dec 08, 2020 10:39
[2020-12-08 11:22] LABS: C REACTIVE PROTEIN QUANTITATIV 23.2 MG/DL (0.00-0.30)
[2020-12-08 11:32] LABS: ERYTHROCYTE SEDIMENTATION RATE 129 mm/hr (0-20)
--- NOTE | 2020-12-08 12:06 | REP ---
INDICATION: sepsis. COMPARISON: None. TECHNIQUE: CT chest performed without the use of intravenous contrast. Sagittal and coronal reconstruction images are performed. FINDINGS: Lungs: There are mild scattered diffuse interstitial opacities throughout both lungs. This could represent mild interstitial edema or pneumonitis. No consolidation is seen. Mediastinum: No gross adenopathy. Linh: No gross adenopathy. Axilla: No gross adenopathy. Pleura: No effusion. Heart: There is mild cardiomegaly. Thoracic aorta: No aneurysm. Visualized osseous structures: Unremarkable. There is a left central venous catheter with the tip in the superior vena cava. There is a right central venous catheter with the tip at the junction of the superior vena cava and right atrium. There is diffuse subcutaneous soft tissue edema. IMPRESSION: There are mild scattered diffuse interstitial opacities throughout both lungs. This could represent mild interstitial edema or pneumonitis. <Electronically signed by Hesham Oocnnell > 12/08/20 1209
--- NOTE | 2020-12-08 12:26 | REP ---
INDICATION: sepsis COMPARISON: 11/16/2019. TECHNIQUE: CT Scan of the abdomen and pelvis was performed without intravenous contrast. Sagittal and coronal reconstruction images performed. FINDINGS: Liver: There is a hepatomegaly, the length of the liver is approximately 21.5 cm. Gallbladder: Unremarkable. Spleen: Grossly unremarkable.. Adrenals: Normal. Pancreas: Grossly unremarkable.. Kidneys: No hydronephrosis or nephrolithiasis. Ureters demonstrate no dilatation or calculus. Small and large bowel: Grossly unremarkable.. Free fluid: Trace free fluid in the subhepatic region as well as in the pelvis. Abdominal aorta: No aneurysm. Adenopathy: There is left external iliac and inguinal adenopathy. Most of these lymph nodes are slightly greater than 1 cm in short axis but a partially imaged inferior left inguinal lymph node demonstrates a short axis dimension of 2.2 cm. An oval soft tissue density in the abdominal wall superficially in the left lower quadrant may represent a mildly enlarged lymph node 1.3 cm in short axis. These findings are new since the prior study. Appendix: Not inflamed. Osseous structures: Unremarkable. Pelvis: No mass. No bladder calculus seen. There is diffuse edema in the subcutaneous soft tissues. IMPRESSION: Hepatomegaly. Trace free fluid in the subhepatic region and in the pelvis. Diffuse edema in the soft tissues of the abdominal wall. Left external iliac and inguinal adenopathy is new since the prior study. <Electronically signed by Hesham Oconnell > 12/08/20 [id number]
[2020-12-08] MEDS: **VANCO AFTER HD** MISC XX SCH (12:55)
--- NOTE | 2020-12-08 13:29 | REP ---
INDICATION: osteo, ABCESS. COMPARISON: Radiographs 12/01/2020. TECHNIQUE: Multiple sequences obtained in the axial, coronal and sagittal planes without the use of intravenous contrast. FINDINGS: There is diffuse low signal on T1 and high signal on T2 involving all of the phalanges of the 5th toe and the majority of the 5th metatarsal, with relative sparing of the base of the 5th metatarsal. Findings are consistent with osteomyelitis. Similar signal is seen in the head of the 2nd metatarsal and base of the 2nd proximal phalanx and early osteomyelitis at that location cannot be excluded. There is an adjacent lobulated complex fluid collection between the 1st and 2nd metatarsophalangeal joints which I am suspicious represents an abscess. This measures approximately 6.2 x 3.7 by 1.8 cm. There is adjacent moderate amount of lobulated fluid tracking more proximally along the flexor tendons in the plantar soft tissues of the foot. This could represent a peritendinous abscess. This extends throughout the plantar soft tissues more proximally to the calcaneus. There is diffuse high signal throughout the soft tissues of the foot on T2 weighted images compatible with diffuse edema and cellulitis. Mild joint fluid is seen at the ankle. IMPRESSION: Findings compatible with osteomyelitis of the 5th metatarsal and 5th toe phalanges. Base of the 5th metatarsal is spared. There are findings suspicious for osteomyelitis involving the head of the 2nd metatarsal and base of the 2nd proximal phalanx. There is an adjacent complex fluid collection between the 1st and 2nd metatarsophalangeal joints suspicious for an abscess. Lobulated fluid extends more proximally from this location along the flexor tendons in the plantar soft tissues of the foot, extending into the posterior medial plantar soft tissues adjacent to the calcaneus. This may also represent an abscess. <Electronically signed by Hesham Oconnell > 12/08/20 [id number]
[2020-12-08] MEDS ORDERED: VANCOMYCIN HCL 1,000 MG, VIAL MATE ADAPTER 1 EACH in D5W 250 ML IV ONE (15:00)
[2020-12-08] MEDS: ERTAPENEM SODIUM 0.5 GM in NS 50 ML IV SCH (16:13)
--- NOTE | 2020-12-08 17:00 | IPN ---
PROGRESS NOTE DATE: 12/08/2020 SUBJECTIVE: Patient seen and examined at bedside, received phone call from hospitalist. The patient had been worsening over the last few days with new fevers. She was last seen by myself on 12/06/2020 at which time she seemed to be improving. She had been afebrile for 24 hours and her labs had been trending downwards and at that time the foot had also been improving although still had some edema and some tenderness. Today her white blood cell count has been elevated, 16.5. T-max is 103. ESR 129. CRP 23.2. Imaging studies were taken. A foot x-ray was taken which showed findings suggestive of some residual osteomyelitis to the fifth toe and remaining metatarsal as well as a new abscess formation near the second metatarsal head. On previous examination there was no wound or involvement near the second toe. OBJECTIVE: On examination today the foot and leg remain edematous. There was a new blistered area under the second metatarsal head with some pain to palpation. ASSESSMENT: A 35-year-old female status post bilateral fifth metatarsal head excision with abscess formation, left foot. PLAN: We will bring to operating room for incision and drainage tomorrow. We will take new OR cultures. We will follow.
--- NOTE | 2020-12-08 20:22 | IPN ---
PROGRESS NOTE DATE: 12/08/2020 SUBJECTIVE: Patient was seen and examined at the bedside today morning. The patient's antibiotics were changed yesterday, but despite that, she is spiking fever. T-max was 103.4 degrees Fahrenheit today morning. She was dialyzed yesterday. She tolerated the hemodialysis procedure well. OBJECTIVE: VITAL SIGNS: Temperature in the morning 103.4 degrees Fahrenheit, blood pressure 125/68, pulse 95, respiratory rate 18, saturating 94% on room air. INTAKE AND OUTPUT: Urine output is not recorded. Ultrafiltration with hemodialysis was 3 liters. Weight in the bed scale is 94.6 kg. PHYSICAL EXAMINATION: GENERAL: Patient is awake, alert and oriented x3, lying in bed, in no apparent distress. HEAD/NECK: Extraocular muscles intact. Pupils equally round and reactive to light. Mucous membranes are moist. Neck is supple. She has a right IJ tunneled hemodialysis catheter and left subclavian triple lumen catheter. CARDIOVASCULAR: S1, S2, regular rate. Trace edema of the left lower extremity and no edema of the right lower extremity. RESPIRATORY: Chest is clear to auscultation bilaterally. Bilateral equal air entry. No rales or rhonchi. ABDOMEN: Soft, positive bowel sounds, nontender. No organomegaly. MUSCULOSKELETAL: She has dressings on both feet because of infection. LABORATORY REVIEW: CBC showed WBC 16.5, hemoglobin 8.8, platelets 755,000. BMP showed sodium 132, potassium 4.6, chloride 95, bicarb 27, BUN 21, creatinine 5.1. C-reactive protein 23.2. MICROBIOLOGY: Repeat blood cultures are negative from yesterday so far. IMAGING STUDIES: A foot MRI was done today, which showed osteomyelitis of the fifth metatarsal and fifth phalange, base of the fifth metatarsal is spared. There is osteomyelitis involving the head of the second metatarsal and the base of the second proximal phalanx. There is a complex fluid collection between the first and second metatarsophalangeal joints, suspicious for an abscess. A CT scan of the chest was done, it showed mild scattered diffuse interstitial opacities throughout both lungs, mild interstitial edema and pneumonitis. CAT scan of the abdomen and pelvis was done, it showed hepatomegaly, trace fluid in the subhepatic region and in the pelvis, diffuse edema in the soft tissues of the abdominal wall. Left external iliac and inguinal lymphadenopathy is new since the prior study. CURRENT INPATIENT MEDICATIONS: Patient's medications were all reviewed by myself. She continues to be on Vancomycin and Invanz. She continues to be on Dificid for C. diff. No other significant change in the medications today as compared with yesterday. ASSESSMENT AND PLAN: 1. End-stage renal disease: Patient was dialyzed yesterday. She tolerated the hemodialysis procedure well. Her next hemodialysis will be on Thursday as per her regular schedule. 2. Left foot abscess formation: Patient was seen by podiatry. She will get the incision and drainage done tomorrow. She continues on be on I.V. antibiotics as recommended by infectious disease. 3. Anemia and end-stage renal disease: Hemoglobin level is 8.8, which is better today as compared with yesterday. She got 1 unit of PRBC transfusion. 4. Hypertension: It is well controlled with current antihypertensive regimen. Patient is noncompliant with the medications as an outpatient. 5. C. diff colitis: Diarrhea is controlled. 6. Chronic kidney disease/mineral bone disease: Continue current dose of Renvela. Phosphorus level is within the acceptable range.
[2020-12-08] MEDS: LEVEMIR (INSULIN DETEMIR) 1 UNITS/0.01ML SC SCH (22:04)
[2020-12-09] VITALS (12 sets, daily range): BP systolic 98–154; BP diastolic 55–82
[2020-12-09] MEDS: METOCLOPRAMIDE INJ 10MG/2ML VIAL (J2765 PER 1) IV SCH ×3 (00:47→16:31)
[2020-12-09] MEDS: ACETAMINOPHEN TAB 650MG DOSE (2X325MG) PO PRN ×2 (01:46→12:31)
[2020-12-09] MEDS: SODIUM CHLORIDE 0.9% INJ 10 ML SYR IV SCH ×3 (05:40→22:17)
[2020-12-09 06:04] LABS: BASO % 0.2 % (0.0-1.0); EOS # 0.1 10^3/uL (0.0-0.5); EOS % 0.6 % (0.0-3.0); HEMATOCRIT 25.5 % (36.0-47.0); HEMOGLOBIN 8.2 g/dl (12.0-15.5); LYMPH # 1.2 10^3/uL (1.5-5.0); MEAN CORPUSCULAR HEMOGLOBIN 29.5 pg (27.0-33.0); MEAN CORPUSCULAR HGB CONC 32.2 g/dl (32.0-36.5); MEAN CORPUSCULAR VOLUME 91.7 fl (80.0-96.0); MONO # 0.9 10^3/uL (0.0-0.8); MONO % 6.2 % (0.0-5.0); NEUTROPHILS # 12.8 10^3/uL (1.5-8.5); NEUTROPHILS % 84.1 % (36.0-66.0); PLATELET COUNT, AUTOMATED 757 10^3/uL (150-450); RED BLOOD COUNT 2.78 10^6/uL (4.00-5.40); WHITE BLOOD COUNT 15.2 10^3/uL (4.0-10.0)
[2020-12-09 06:38] LABS: ALBUMIN 1.7 GM/DL (3.2-5.2); BILIRUBIN,TOTAL 1.1 MG/DL (0.2-1.0); CREATININE FOR GFR 6.49 MG/DL (0.55-1.30); GLOMERULAR FILTRATION RATE 9.5 (>60); MAGNESIUM LEVEL 2.1 MG/DL (1.8-2.4); POTASSIUM SERUM 4.4 MEQ/L (3.5-5.1)
[2020-12-09] MEDS: HumaLOG INSULIN (NovoLOG) PER UNIT SC SCH ×4 (07:30→21:00)
[2020-12-09] MEDS ORDERED: LIDOCAINE 1% MDV 20ML VIAL As Ordered ONE (07:42)
[2020-12-09] MEDS ORDERED: BUPIVACAINE HCL 0.5% 10ML VIAL As Ordered ONE (07:43)
[2020-12-09] MEDS: (RENVELA) SEVELAMER **CARBONate** 800 MG TAB PO SCH ×3 (08:00→18:24)
[2020-12-09] MEDS: LACTOBACILLUS ACIDOPHILUS CAP (BACID) PO SCH ×2 (08:00→18:24)
[2020-12-09] MEDS ORDERED: propofoL 200 MG/20 ML VIAL As Ordered ONE (09:08)
[2020-12-09] MEDS ORDERED: fentaNYL 100 MCG/2 ML INJECTION (J3010) As Ordered ONE (09:08)
[2020-12-09] MEDS ORDERED: MIDAZOLAM INJ 2MG/2ML VIAL (J2250 PER 1MG) As Ordered ONE (09:08)
[2020-12-09] MEDS ORDERED: ONDANSETRON 4MG/2ML VIAL IV PRN (10:15)
[2020-12-09] MEDS ORDERED: fentaNYL 100 MCG/2 ML INJECTION (J3010) IV PRN (10:15)
[2020-12-09] MEDS ORDERED: NS 1,000 ML IV SCH (10:15)
[2020-12-09] MEDS ORDERED: oxyCODONE 5MG TAB PO PRN (10:15)
--- NOTE | 2020-12-09 10:37 | IPNPDOC ---
Text Note Date of Service The patient was seen on 12/09/20. NOTE Subjective: Patient had low grade fever overnight. Objective: GENERAL APPEARANCE: In mild distress HEENT: no scleral icterus, no JVD, EOMI CARDIOVASCULAR: S1S2 LUNGS: CTA ABDOMEN: soft & not tender w palpitation MUSCULOSKELETAL: Inflamed left lateral foot in the place of amputation INTEGUMENT: no generalized pallor NEUROLOGICAL: cranial nerve function from 2-12 intact intact, follows commands, speech not dysarthric Assessment and plan Patient is a 35 yr old w a hx of IDDM1 w neuropathy, retinopathy, Pulm HTN and Essential HTN who is admitted for management of suspected left 5th toe osteomyelitis. ] Sepsis Patient continues to be septic with high fever, leukocytosis Repeated blood culture negative Continue broad-spectrum antibiotics On 12/08/20 MRI SHOWED There are findings suspicious for osteomyelitis involving the head of the 2nd metatarsal and base of the 2nd proximal phalanx. There is an adjacent complex fluid collection between the 1st and 2nd metatarsophalangeal joints suspicious for an abscess. Dr. Mondragon will proceed with surgical revision today Bilateral fifth osteomyelitis Dr. Mondragon took her to OR 12/02 for bilateral fifth metatarsal head excision Wound culture positive for Enterococcus faecalis and Escherichia coli ESBL Blood culture negative. Await results for repeated blood culture Pain management Dr. Krishnamurthy changed her antibiotics to vancomycin IV and and Ertapenem IV C. difficile diarrhea Resolved Continue by mouth fidaxomicin Chest pain Resolved Cardiac Workup negative End-stage renal diseases Nephrology team follows him Continue dialysis Hypertension Managed with dialysis Continue home meds Added Norvasc Type 1 diabetes Glucose level under control Insulin sliding scale Detemir Anemia Most likely due to end-stage renal disease Aranesp during dialysis 1 unit of blood was transfused on 12/07/20 VS,Fishbone, I+O VS, Fishbone, I+O Laboratory Tests 12/09/20 05:40 Vital Signs Date Time Temp Pulse Resp B/P (MAP) Pulse Ox O2 Delivery O2 Flow Rate FiO2 12/09/20 10:08 85 18 122/67 (85) 98 Nasal Cannula 3 12/09/20 09:51 98 I&O- Last 24 Hours up to 6 AM 12/09/20 06:00 Intake Total 920 ml Output Total 0 ml Balance 920 ml SARTHAK SILVA DO Dec 09, 2020 10:37
--- NOTE | 2020-12-09 10:50 | RO ---
OPERATIVE NOTE DATE OF OPERATION: 12/09/2020 PREOPERATIVE DIAGNOSIS: Left foot abscess and infection. POSTOPERATIVE DIAGNOSIS: Left foot abscess and infection. PROCEDURE: Left foot incision and drainage with fifth metatarsal bone resection. SURGEON: Butch Mondragon DPM MAINTENANCE JOB TITLES: ANESTHESIA: Monitored anesthesia care, preop injection of 20 mL of a 1:1 mixture of 1% lidocaine plain, 1/2% Marcaine plain. ESTIMATED BLOOD LOSS: Minimal. MATERIALS: None. SPECIMEN: Left fifth metatarsal bone and culture of abscess from the plantar second metatarsal aerobic and anaerobic. COMPLICATION: None. CONDITION: Stable. INDICATIONS: Narcisa Mireles is a 35-year-old diabetic female who was admitted with left foot infection. She was initially noted to have an ulceration along the left fifth metatarsal with abscess formation. She was taken to the operating room earlier this admission with initial improvement in her symptoms. Over the last few days, she has had worsening fevers, worsening redness and swelling and elevated white blood cell count. An MRI was performed which showed signs suggestive of abscess under her second metatarsal. A decision was made to bring her to the operating room for incision and drainage. The patient's side and site were identified and marked in the preoperative area. Consent was reviewed and obtained. The risks, complications and alternatives to the procedure were explained to the patient in detail and all questions were answered. DESCRIPTION OF PROCEDURE: The patient was brought to the operating room and placed on the operating room table in supine position. Monitored anesthesia care was delivered by the anesthesia team. A preop injection of 20 mL of a 1:1 mixture of 1% lidocaine plain, 1/2% Marcaine plain were injected into the left foot. The left foot was prepped and draped in normal sterile fashion. A tourniquet was applied but was not used during the procedure. Attention was first paid over to the previous surgical site along the fifth metatarsal. The incision was reopened using #15 blade. There was some trace purulence but no significant infection noted at this site. An additional portion of the fifth metatarsal bone was resected with sagittal saw and sent off for pathology. The site was irrigated the pulse lavage. There was a small ulceration on the plantar surface of the fifth toe with trace purulence. This was debrided with a #15 blade. Attention was then paid to the plantar foot. There was some purulent blistery tissue underneath the second metatarsal. A linear incision was made along this. Copious purulent drainage was noted and was found to be tracking along the plantar fascia. The incision was extended to approximately the mid-arch. A rongeur was used to remove the nonviable tissue and the site was irrigated with approximately 3000 mL of pulse lavage and normal saline. Culture swabs were taken of the initial purulent drainage, aerobic and anaerobic and still further purulence was able to be expressed. After the irrigation, the site was packed with saline-soaked gauze and sterile dressings were applied. The patient was brought to the PACU with vital signs stable, neurovascular status intact. She will be readmitted to the floor for continued antibiotics, for dressing changes. She will likely require additional OR trip during this admission either for additional irrigation and drainage or closure depending on clinical course. It was discussed that the fifth toe is high risk for amputation. If it does not improve, we will perform this at this time as well. HALLIE
[2020-12-09] MEDS: **hydrALAZINE HCL** 25 MG TAB PO SCH ×3 (11:00→21:00)
[2020-12-09] MEDS: NIFEdipine 30 MG XL TAB PO SCH (11:01)
[2020-12-09] MEDS: FIDAXOMICIN 200 MG TAB (DIFICID) PO SCH ×2 (11:01→22:15)
[2020-12-09] MEDS: METOPROLOL TARTRATE 100 MG TAB PO SCH ×2 (11:01→21:00)
[2020-12-09] MEDS: FUROSEMIDE 80 MG TAB PO SCH ×2 (11:01→16:31)
[2020-12-09] MEDS ORDERED: ACETAMINOPHEN TAB 650MG DOSE (2X325MG) PO ONE (15:00)
[2020-12-09] MEDS: **VANCO AFTER HD** MISC XX SCH (16:00)
[2020-12-09] MEDS: ERTAPENEM SODIUM 0.5 GM in NS 50 ML IV SCH (16:32)
[2020-12-09] MEDS ORDERED: MECLIZINE 12.5 MG TAB PO ONE (18:30)
[2020-12-09] MEDS: LEVEMIR (INSULIN DETEMIR) 1 UNITS/0.01ML SC SCH (21:00)
--- NOTE | 2020-12-09 23:26 | IPN ---
NEPHROLOGY PROGRESS NOTE DATE: 12/09/2020 SUBJECTIVE: The patient was seen and examined at the bedside today morning. The patient had just come back from the O.R. She was persistently having fevers. MRI was done which showed abscess in the left foot and she was taken to the O.R. by Podiatry Service and left foot incision and drainage with the fifth metatarsal bone resection was done. The patient is slightly drowsy after the procedure. OBJECTIVE: VITAL SIGNS: T-max is 101.9 degrees Fahrenheit, blood pressure is 112/55, pulse is 80, respiratory rate of 20, saturating 95% on room air. INTAKE AND OUTPUT: Urine output is not recorded. Weight in the bed scale was 94.6 kg. PHYSICAL EXAMINATION: GENERAL APPEARANCE: The patient is slightly drowsy, otherwise wakes up and is able to answer questions. HEAD AND NECK: Pupils are equally round and reactive to light. Mucous membranes are moist. Neck is supple. She has a right IJ tunneled hemodialysis catheter. Left subclavian triple lumen catheter. CARDIOVASCULAR: S1, S2, regular rate. EXTREMITIES: 2+ edema of the bilateral lower extremities, 1+ edema right lower extremity. RESPIRATORY: Chest is clear to auscultation bilaterally. Bilaterally currently no rales or rhonchi. ABDOMEN: Soft, positive bowel sounds, nontender, no organomegaly. MUSCULOSKELETAL: The patient has a dressing on both feet. [employer]: No focal deficits. Power is 5/5 in all extremities. LAB REVIEW: CBC showed a WBC of 15.2, hemoglobin 8.2, platelet count 757. BMP showed sodium of 130, potassium 4.4, chloride 95, bicarbonate 25, BUN 24, creatinine is 6.4. Albumin is 1.7. Microbiology: Blood cultures are sent again on December 08, 2020 and are negative. CURRENT INPATIENT MEDICATIONS: The patient's medications were all reviewed by myself. She continues to be on IV Vancomycin and Ertapenem. No other significant change in the medications today. ASSESSMENT AND PLAN: 1. End-stage renal disease - The patient's regular dialysis days are Thursday, Thursday, Thursday. She will be dialyzed tomorrow morning as per her regular schedule. 2. Anemia and end-stage renal disease - The patient is having surgical procedures as well. Hemoglobin level is suboptimal. She continues to be on Aranesp with dialysis. If hemoglobin drops below 8 she will be given a PRBC transfusion. 3. Left foot abscess status post incision and drainage and a resection of the left fifth metatarsal the patient continues to be on IV Invanz and Vancomycin. Medication is as per Infectious Disease. 4. C-diff colitis - The patient is on Dificid. Diarrhea is controlled now. 5. Hypertension - blood pressure is controlled with current regimen. Fluid is optimized with dialysis. 6. Insulin dependent diabetic - continue current dose of Levemir and insulin sliding scale.
[2020-12-10] VITALS: BP 137/71
[2020-12-10] MEDS: METOCLOPRAMIDE INJ 10MG/2ML VIAL (J2765 PER 1) IV SCH ×3 (01:00→18:34)
[2020-12-10 04:00] VITALS: BP 123/62
[2020-12-10] MEDS: SODIUM CHLORIDE 0.9% INJ 10 ML SYR IV SCH ×3 (06:07→22:03)
[2020-12-10 06:09] LABS: BASO % 0.2 % (0.0-1.0); EOS # 0.2 10^3/uL (0.0-0.5); EOS % 1.4 % (0.0-3.0); HEMATOCRIT 26.2 % (36.0-47.0); HEMOGLOBIN 8.4 g/dl (12.0-15.5); LYMPH # 1.3 10^3/uL (1.5-5.0); LYMPH % 8.5 % (24.0-44.0); MEAN CORPUSCULAR HEMOGLOBIN 29.3 pg (27.0-33.0); MEAN CORPUSCULAR HGB CONC 32.1 g/dl (32.0-36.5); MEAN CORPUSCULAR VOLUME 91.3 fl (80.0-96.0); MONO # 1.2 10^3/uL (0.0-0.8); MONO % 7.5 % (0.0-5.0); NEUTROPHILS # 12.7 10^3/uL (1.5-8.5); NEUTROPHILS % 81.3 % (36.0-66.0); PLATELET COUNT, AUTOMATED 801 10^3/uL (150-450); RED BLOOD COUNT 2.87 10^6/uL (4.00-5.40)
[2020-12-10 06:10] LABS: WHITE BLOOD COUNT 15.7 10^3/uL (4.0-10.0)
[2020-12-10 06:42] LABS: ALBUMIN 1.7 GM/DL (3.2-5.2); CALCIUM LEVEL 7.9 MG/DL (8.5-10.1); CREATININE FOR GFR 7.73 MG/DL (0.55-1.30); GLOMERULAR FILTRATION RATE 7.8 (>60); MAGNESIUM LEVEL 2.1 MG/DL (1.8-2.4); POTASSIUM SERUM 4.8 MEQ/L (3.5-5.1); TOTAL PROTEIN 6.1 GM/DL (6.4-8.2); VANCOMYCIN RANDOM 31.8 UG/ML
[2020-12-10] MEDS: (RENVELA) SEVELAMER **CARBONate** 800 MG TAB PO SCH ×3 (06:54→18:34)
[2020-12-10] MEDS: LACTOBACILLUS ACIDOPHILUS CAP (BACID) PO SCH ×2 (06:54→18:34)
[2020-12-10] MEDS: HumaLOG INSULIN (NovoLOG) PER UNIT SC SCH ×4 (06:55→21:00)
[2020-12-10 08:00] VITALS: BP 132/69
[2020-12-10] MEDS: METOPROLOL TARTRATE 100 MG TAB PO SCH ×2 (10:21→22:00)
[2020-12-10] MEDS: FIDAXOMICIN 200 MG TAB (DIFICID) PO SCH ×2 (10:21→21:59)
[2020-12-10] MEDS: **hydrALAZINE HCL** 25 MG TAB PO SCH ×3 (10:22→22:00)
[2020-12-10] MEDS: NIFEdipine 30 MG XL TAB PO SCH (10:24)
--- NOTE | 2020-12-10 11:33 | IPNPDOC ---
Text Note Date of Service The patient was seen on 12/10/20. NOTE Subjective: No any acute events overnight Objective: GENERAL APPEARANCE: In mild distress HEENT: no scleral icterus, no JVD, EOMI CARDIOVASCULAR: S1S2 LUNGS: CTA ABDOMEN: soft & not tender w palpitation MUSCULOSKELETAL: Inflamed left lateral foot in the place of amputation INTEGUMENT: no generalized pallor NEUROLOGICAL: cranial nerve function from 2-12 intact intact, follows commands, speech not dysarthric Assessment and plan Patient is a 35 yr old w a hx of IDDM1 w neuropathy, retinopathy, Pulm HTN and Essential HTN who is admitted for management of suspected left 5th toe osteomyelitis. Sepsis Resolved Repeated blood culture negative Continue broad-spectrum antibiotics On 12/08/20 MRI SHOWED There are findings suspicious for osteomyelitis involving the head of the 2nd metatarsal and base of the 2nd proximal phalanx. There is an adjacent complex fluid collection between the 1st and 2nd metatarsophalangeal joints suspicious for an abscess. Dr. Mondragon did with surgical revision on 12/09/[address] Mondragon took her to OR 12/02 for bilateral fifth metatarsal head excision Wound culture positive for Enterococcus faecalis and Escherichia coli ESBL Blood culture negative. Await results for repeated blood culture Pain management Dr. Krishnamurthy changed her antibiotics to vancomycin IV and and Ertapenem IV C. difficile diarrhea Resolved Continue by mouth fidaxomicin Chest pain Resolved Cardiac Workup negative End-stage renal diseases Nephrology team follows him Continue dialysis Hypertension Managed with dialysis Continue home meds Added Norvasc Type 1 diabetes Glucose level under control Insulin sliding scale Detemir Anemia Most likely due to end-stage renal disease Aranesp during dialysis 1 unit of blood was transfused on 12/07/20 VS,Fishbone, I+O VS, Fishbone, I+O Laboratory Tests 12/10/20 06:00 Vital Signs Date Time Temp Pulse Resp B/P (MAP) Pulse Ox O2 Delivery O2 Flow Rate FiO2 12/10/20 10:21 84 132/69 12/10/20 08:00 99.4 20 93 12/10/20 04:00 Room Air 12/09/20 12:30 2.0 I&O- Last 24 Hours up to 6 AM 12/10/20 06:00 Intake Total 850 ml Output Total 0 ml Balance 850 ml SARTHAK SILVA DO Dec 10, 2020 11:32
--- NOTE | 2020-12-10 11:48 | IPN ---
PROGRESS NOTE DATE: 12/10/2020 SUBJECTIVE: Patient seen and examined. States her foot is feeling a lot better since the procedure yesterday. OBJECTIVE: Vitals are examined. T-max 99.4. Lower extremity examination erythema and edema are improved. The wounds are inspected and no further purulent drainage is noted. LABORATORY DATA: White blood cell count is 15.7. All of our cultures and pathology are pending. ASSESSMENT: A 35-year-old diabetic female with cellulitis abscess status post incision and drainage with fifth metatarsal bone excision. PLAN: We will monitor her wound and monitor her labs over the next few days. She will either require repeat incision and drainage or closure of her foot. Wound care orders are written. Will follow.
[2020-12-10 12:00] VITALS: BP 142/78
[2020-12-10] MEDS: DARBEPOETIN 200MCG/0.4ML *DIALYSIS* SYRINGE (J0882 PER 1MCG) IV SCH (14:29)
[2020-12-10] MEDS: **VANCO AFTER HD** MISC XX SCH (16:00)
[2020-12-10] MEDS: ERTAPENEM SODIUM 0.5 GM in NS 50 ML IV SCH (18:35)
[2020-12-10 20:00] VITALS: BP 135/64
[2020-12-10] MEDS: LEVEMIR (INSULIN DETEMIR) 1 UNITS/0.01ML SC SCH (22:00)
[2020-12-11] VITALS: BP 122/59
[2020-12-11] MEDS: METOCLOPRAMIDE INJ 10MG/2ML VIAL (J2765 PER 1) IV SCH ×3 (01:00→17:59)
[2020-12-11 04:00] VITALS: BP 104/57
[2020-12-11] MEDS: SODIUM CHLORIDE 0.9% INJ 10 ML SYR IV SCH ×3 (06:14→22:28)
[2020-12-11 06:24] LABS: BASO % 0.2 % (0.0-1.0); EOS # 0.2 10^3/uL (0.0-0.5); EOS % 1.7 % (0.0-3.0); HEMOGLOBIN 8.3 g/dl (12.0-15.5); LYMPH # 1.1 10^3/uL (1.5-5.0); LYMPH % 9.7 % (24.0-44.0); MEAN CORPUSCULAR HEMOGLOBIN 29.4 pg (27.0-33.0); MEAN CORPUSCULAR HGB CONC 31.9 g/dl (32.0-36.5); MEAN CORPUSCULAR VOLUME 92.2 fl (80.0-96.0); MONO # 1.1 10^3/uL (0.0-0.8); MONO % 9.6 % (0.0-5.0); NEUTROPHILS # 8.9 10^3/uL (1.5-8.5); NEUTROPHILS % 77.3 % (36.0-66.0); PLATELET COUNT, AUTOMATED 815 10^3/uL (150-450); RED BLOOD COUNT 2.82 10^6/uL (4.00-5.40)
[2020-12-11 06:31] LABS: WHITE BLOOD COUNT 11.6 10^3/uL (4.0-10.0)
[2020-12-11 07:06] LABS: ALBUMIN 1.6 GM/DL (3.2-5.2); BILIRUBIN,TOTAL 0.7 MG/DL (0.2-1.0); CALCIUM LEVEL 7.9 MG/DL (8.5-10.1); CREATININE FOR GFR 5.7 MG/DL (0.55-1.30); GLOMERULAR FILTRATION RATE 11.1 (>60); POTASSIUM SERUM 4.2 MEQ/L (3.5-5.1); TOTAL PROTEIN 5.9 GM/DL (6.4-8.2)
[2020-12-11 08:00] VITALS: BP 122/61
[2020-12-11] MEDS: (RENVELA) SEVELAMER **CARBONate** 800 MG TAB PO SCH ×3 (08:27→17:59)
[2020-12-11] MEDS: LACTOBACILLUS ACIDOPHILUS CAP (BACID) PO SCH ×2 (08:27→17:58)
[2020-12-11] MEDS: METOPROLOL TARTRATE 100 MG TAB PO SCH ×4 (08:28→22:27)
[2020-12-11] MEDS: **hydrALAZINE HCL** 25 MG TAB PO SCH ×4 (08:28→22:27)
[2020-12-11] MEDS: FIDAXOMICIN 200 MG TAB (DIFICID) PO SCH ×2 (08:28→22:27)
[2020-12-11] MEDS: NIFEdipine 30 MG XL TAB PO SCH ×3 (08:32→14:25)
[2020-12-11] MEDS: HumaLOG INSULIN (NovoLOG) PER UNIT SC SCH ×4 (08:39→21:00)
[2020-12-11 08:58] LABS: VANCOMYCIN RANDOM 24.4 UG/ML
--- NOTE | 2020-12-11 09:06 | IPN ---
PROGRESS NOTE DATE: 12/10/2020 SUBJECTIVE: Narcisa is seen and examined this morning at the bedside and later receiving dialysis. She reports that her left foot pain is adequately controlled. She is status post incision and drainage of abscess with 5th metatarsal bone excision. She is dialyzed today with 3.5 liters of fluid removed. Her dialysis treatment was uneventful. Temperature 98.4, pulse 86, respiratory rate 18, blood pressure 135/64, saturating 98% on room air. Intake yesterday was 850, dialysis today removed 3500 ml. Weight in the bed scale today is 96.1 kg. PHYSICAL EXAMINATION: General: The patient is seen lying in bed, head of the bed elevated, in no distress. Extraocular muscles are intact. Pupils equally round and reactive to light. Tongue is moist. Neck is supple. Jugular veins are not elevated. Heart sounds are regular, S1, S2. There is 1+ edema in the left lower extremity, but no edema in the right lower extremity. Lungs are clear to auscultation. She is comfortable on room air. Abdomen is soft and nontender. There is a tunnel permacath present in the right chest wall. There is a nonfunctional AV fistula in the right arm. The left foot incision site is noted and there is 1+ edema of the left ankle and calf and some inflammation. Neurologic: She is oriented times 3, interactive and at baseline mentation. LABORATORY DATA: Sodium 131, potassium 4.8, bicarbonate 24, glucose 120, magnesium 2.1, albumin 1.7, hemoglobin 8.4, white count 15.7, blood cultures from dialysis catheter were drawn and pending. Her prior blood cultures on December 08, December 07 and December 05 have shown no growth. INPATIENT MEDICATIONS: Reviewed by myself. She continues on IV ertapenem and vancomycin, (vancomycin on hold due to elevated random levels). Her oral Lasix was discontinued. However, remainder of medications are unchanged as compared to yesterday. PROBLEMS: 1. End-stage renal disease on hemodialysis on Thursday, Thursday, Thursday schedule. The patient is dialyzed today and 3.5 liters of fluid were removed. Her treatments have been uneventful. Her electrolytes and volume status are acceptable. Continue current prescription. 2. Anemia related to end-stage renal disease along with chronic inflammatory state. Her ferritin two weeks ago was elevated at 1200. She is not suitable for IV iron at this time because of infectious issues. She continues on Aranesp with dialysis and will receive packed red blood cells (PRBC) transfusion for hemoglobin less than 8. She has received 3 units thus far on this admission. 3. Clostridium difficile colitis. She is symptomatically and clinically improving and she is on Dificid. Infectious disease is following. Her white count remains elevated. 4. Left osteomyelitis and abscess followed by Dr. Krishnamurthy; her vancomycin random level has been high. She continues on IV ertapenem. White count remains elevated. Cultures were also sent from the dialysis catheter to complete the infectious workup. She remains hemodynamically stable, but did have a fever spike in the past 24 hours up to 101.9 yesterday afternoon. 5. Hypertension with hypertensive heart disease. Blood pressures are acceptable and no changes are being made to her currently antihypertensive regimen.
--- NOTE | 2020-12-11 11:57 | IPNPDOC ---
Text Note Date of Service The patient was seen on 12/11/20. NOTE Subjective: Patient has been afebrile for past 24-hour. Objective: GENERAL APPEARANCE: In mild distress HEENT: no scleral icterus, no JVD, EOMI CARDIOVASCULAR: S1S2 LUNGS: CTA ABDOMEN: soft & not tender w palpitation MUSCULOSKELETAL: Both feet covered with dressing INTEGUMENT: no generalized pallor NEUROLOGICAL: cranial nerve function from 2-12 intact intact, follows commands, speech not dysarthric Assessment and plan Patient is a 35 yr old w a hx of IDDM1 w neuropathy, retinopathy, Pulm HTN and Essential HTN who is admitted for management of suspected left 5th toe o steomyelitis. Sepsis resolved Repeated blood culture negative Continue broad-spectrum antibiotics On 12/08/20 MRI SHOWED There are findings suspicious for osteomyelitis involving the head of the 2nd metatarsal and base of the 2nd proximal phalanx. There is an adjacent complex fluid collection between the 1st and 2nd metatarsophalangeal joints suspicious for an abscess. Dr. Mondragon did with surgical revision on 12/09/20 leukocytosis improved. Sepsis resolved Bilateral fifth osteomyelitis Dr. Mondragon took her to OR 12/02 for bilateral fifth metatarsal head excision Wound culture positive for Enterococcus faecalis and Escherichia coli ESBL Blood culture negative. Await results for repeated blood culture Pain management Dr. Krishnamurthy changed her antibiotics to vancomycin IV and and Ertapenem IV C. difficile diarrhea Resolved Continue by mouth fidaxomicin Chest pain Resolved Cardiac Workup negative End-stage renal diseases Nephrology team follows him Continue dialysis Hypertension Managed with dialysis Continue home meds Added Norvasc Type 1 diabetes Glucose level under control Insulin sliding scale Detemir Anemia Most likely due to end-stage renal disease Aranesp during dialysis She has received 3 units thus far on this admission. VS,Fishbone, I+O VS, Fishbone, I+O Laboratory Tests 12/11/20 06:00 Vital Signs Date Time Temp Pulse Resp B/P (MAP) Pulse Ox O2 Delivery O2 Flow Rate FiO2 12/11/20 08:35 104/57 12/11/20 08:00 99.2 82 18 96 Room Air 12/09/20 12:30 2.0 I&O- Last 24 Hours up to 6 AM0 12/11/20 06:00 Intake Total 700 ml Output Total 3500 ml Balance -2800 ml SARTHAK SILVA DO Dec 11, 2020 11:57
[2020-12-11 12:03] VITALS: BP 136/71
--- NOTE | 2020-12-11 13:47 | IPN ---
PROGRESS NOTE DATE: 12/11/2020 SUBJECTIVE: Patient seen and examined, states feeling a little bit better. Denies worsening pain or problems in her feet. OBJECTIVE: VITAL SIGNS: Reviewed. T-max is 99.2. On lower extremity examination erythema and edema are improved. No significant purulent drainage noted in either wound. LABORATORY DATA: Reviewed. White cell count is improved to 11.6. ASSESSMENT: A 35-year-old diabetic female status post fifth metatarsal head excision and left foot incision and drainage. PLAN: Await operative cultures. Will plan to bring her back to the operating room either for repeat incision and drainage or for closure, depending on wound and infection progression; suspect she will be able to be discharged shortly thereafter if she continues to improve.
[2020-12-11] MEDS: ASPIRIN 81 MG ENTERIC TAB PO SCH (14:24)
[2020-12-11] MEDS: **VANCO AFTER HD** MISC XX SCH (16:00)
[2020-12-11] MEDS: ERTAPENEM SODIUM 0.5 GM in NS 50 ML IV SCH (17:59)
[2020-12-11 20:00] VITALS: BP 135/69
[2020-12-11] MEDS: LEVEMIR (INSULIN DETEMIR) 1 UNITS/0.01ML SC SCH (22:27)
[2020-12-12] VITALS (7 sets, daily range): BP systolic 99–138; BP diastolic 56–74
[2020-12-12] MEDS: METOCLOPRAMIDE INJ 10MG/2ML VIAL (J2765 PER 1) IV SCH ×3 (00:20→17:00)
[2020-12-12] MEDS: SODIUM CHLORIDE 0.9% INJ 10 ML SYR IV SCH ×4 (06:16→21:06)
[2020-12-12 06:31] LABS: BASO # 0.1 10^3/uL (0.0-0.2); BASO % 0.4 % (0.0-1.0); EOS # 0.3 10^3/uL (0.0-0.5); EOS % 2.2 % (0.0-3.0); HEMOGLOBIN 8.3 g/dl (12.0-15.5); LYMPH # 1.4 10^3/uL (1.5-5.0); LYMPH % 10.6 % (24.0-44.0); MEAN CORPUSCULAR HEMOGLOBIN 29.3 pg (27.0-33.0); MEAN CORPUSCULAR HGB CONC 31.9 g/dl (32.0-36.5); MEAN CORPUSCULAR VOLUME 91.9 fl (80.0-96.0); MONO # 1.2 10^3/uL (0.0-0.8); MONO % 9.3 % (0.0-5.0); NEUTROPHILS # 9.9 10^3/uL (1.5-8.5); NEUTROPHILS % 75.7 % (36.0-66.0); PLATELET COUNT, AUTOMATED 840 10^3/uL (150-450); RED BLOOD COUNT 2.83 10^6/uL (4.00-5.40)
[2020-12-12 06:34] LABS: WHITE BLOOD COUNT 13.1 10^3/uL (4.0-10.0)
[2020-12-12 07:08] LABS: ALBUMIN 1.7 GM/DL (3.2-5.2); BILIRUBIN,TOTAL 0.7 MG/DL (0.2-1.0); C REACTIVE PROTEIN QUANTITATIV 13.2 MG/DL (0.00-0.30); CALCIUM LEVEL 7.7 MG/DL (8.5-10.1); CREATININE FOR GFR 7.13 MG/DL (0.55-1.30); GLOMERULAR FILTRATION RATE 8.5 (>60); MAGNESIUM LEVEL 2.1 MG/DL (1.8-2.4); POTASSIUM SERUM 4.3 MEQ/L (3.5-5.1); TOTAL PROTEIN 6.1 GM/DL (6.4-8.2)
[2020-12-12] MEDS: HumaLOG INSULIN (NovoLOG) PER UNIT SC SCH ×4 (07:30→21:00)
[2020-12-12] MEDS: (RENVELA) SEVELAMER **CARBONate** 800 MG TAB PO SCH ×3 (08:00→17:30)
--- NOTE | 2020-12-12 09:27 | IPN ---
PROGRESS NOTE DATE: 12/11/2020 SUBJECTIVE: Narcisa is seen and examined this morning at the bedside working with physical therapist. She reports her foot pain is adequately controlled. She is going to go back to the OR on with podiatry. She was dialyzed yesterday with 3.5 liters of fluid removed. She is having increasing reactive thrombocytosis on labs. OBJECTIVE: VITAL SIGNS: Temperature 98.6, pulse 89, respiratory rate 18, blood pressure 136/71, saturating 96% on room air. INTAKE AND OUTPUT: Intake yesterday was 700. Dialysis yesterday removed 3.5 liters. Weight in the bed scale today is 93 kg. GENERAL: Patient is seen working with the physical therapist, out of bed. A young female, awake, alert and in no apparent distress. HEENT: Extraocular muscles are intact. Tongue is moist. Ear, nose and throat are unremarkable. Jugular veins are not elevated. HEART: Sounds are regular. S1, S2. There is 1+ left lower extremity edema, but no significant edema in the right lower extremity. LUNGS: Clear to auscultation bilaterally. No crackle or rale. She is comfortable on room air. ABDOMEN: Soft and nontender. EXTREMITIES: There is a tunneled hemodialysis catheter present in the right chest wall. There is a nonfunctional AV fistula in the right arm. The left foot has dressings and there is some associated edema and inflammation. NEUROLOGIC: She is oriented x3, interactive and at baseline mentation. LABORATORY DATA: White count 11.6, hemoglobin 8.3, platelets 815,000. Sodium 134, potassium 4.2. Albumin 1.6. Blood cultures from the dialysis catheter show no growth for 24 hours. INPATIENT MEDICATIONS: I started the patient on aspirin 81 mg p.o. daily. The remainder of her medications are unchanged as compared to yesterday. PROBLEMS: 1. End-stage renal disease on hemodialysis on Thursday, Thursday, Thursday schedule: She was dialyzed yesterday with 3.5 liters of fluid removed. Her treatments have been uneventful. Her electrolytes and volume status are acceptable. Continue current dialysis prescription. 2. Anemia related to end-stage renal disease along with chronic inflammatory state: She is not suitable for I.V. iron at this time because of the infectious issues. She continues on Aranesp with dialysis and I would transfuse her for hemoglobin less than 8. She has received 3 units on this admission. She has reactive thrombocytosis and I did start low dose aspirin. 3. C. difficile colitis: She is symptomatically and clinically improving on Dificid and infectious disease is following. Her leukocytosis is resolving and she reports stool is formed. 4. Left foot osteomyelitis and abscess followed by podiatry along with infectious diseases: She is on I.V. Ertapenem and random Vancomycin level is still high today at 24. She is going back to the OR on . Cultures were also sent from the dialysis catheter to complete the infectious workup and they returned negative thus far. 5. Hypertension with hypertensive heart disease: Blood pressures are acceptable and no changes are being made.
[2020-12-12] MEDS ORDERED: SODIUM CHLORIDE 0.9% 1000ML IV PRN (10:15)
--- NOTE | 2020-12-12 10:37 | IPNPDOC ---
Text Note Date of Service The patient was seen on 12/12/20. NOTE Subjective: No any acute events overnight. Objective: GENERAL APPEARANCE: In mild distress HEENT: no scleral icterus, no JVD, EOMI CARDIOVASCULAR: S1S2 LUNGS: CTA ABDOMEN: soft & not tender w palpitation MUSCULOSKELETAL: Both feet covered with dressing INTEGUMENT: no generalized pallor NEUROLOGICAL: cranial nerve function from 2-12 intact intact, follows commands, speech not dysarthric Assessment and plan Patient is a 35 yr old w a hx of IDDM1 w neuropathy, retinopathy, Pulm HTN and Essential HTN who is admitted for management of suspected left 5th toe osteomyelitis. Sepsis Resolved Repeated blood culture negative Continue broad-spectrum antibiotics On 12/08/20 MRI SHOWED There are findings suspicious for osteomyelitis involving the head of the 2nd metatarsal and base of the 2nd proximal phalanx. There is an adjacent complex fluid collection between the 1st and 2nd metatarsophalangeal joints suspicious for an abscess. Dr. Mondragon did with surgical revision on 12/09/20 leukocytosis improved. Sepsis resolved Dr. Mondragon is planing to do surgical revision tomorrow Repeated wound culture showed Enterococcus faecalis and Escherichia coli Bilateral fifth osteomyelitis Dr. Mondragon took her to OR 12/02 for bilateral fifth metatarsal head excision Wound culture positive for Enterococcus faecalis and Escherichia coli ESBL Blood culture negative. Await results for repeated blood culture Pain management Dr. Krishnamurthy changed her antibiotics to vancomycin IV and and Ertapenem IV C. difficile diarrhea Resolved Continue by mouth fidaxomicin Chest pain Resolved Cardiac Workup negative End-stage renal diseases Nephrology team follows him Continue dialysis Hypertension Managed with dialysis Continue home meds Added Norvasc Type 1 diabetes Glucose level under control Insulin sliding scale Detemir Anemia Most likely due to end-stage renal disease Aranesp during dialysis She has received 3 units thus far on this admission. VS,Fishbone, I+O VS, Fishbone, I+O Laboratory Tests 12/12/20 06:07 Vital Signs Date Time Temp Pulse Resp B/P (MAP) Pulse Ox O2 Delivery O2 Flow Rate FiO2 12/12/20 08:00 98.8 83 18 117/59 (78) 96 Room Air 12/09/20 12:30 2.0 I&O- Last 24 Hours up to 6 AM 12/12/20 06:00 Intake Total 1620 ml Output Total 0 ml Balance 1620 ml DROZHZHIN,SARTHAK DO Dec 12, 2020 10:37
--- NOTE | 2020-12-12 12:22 | IPN ---
PROGRESS NOTE DATE: 12/11/2020 Narcisa is in good spirits. She is sitting at her bedside having dinner. She denies any nausea, vomiting, diarrhea, abdominal pain, fever, or chills. She has minimal complaint of left leg pain. She stated Dr. Mondragon is planning to take her back to the operating room (OR) for closure of the wound. LABORATORY DATA: White count 11.6, hemoglobin 8.3, hematocrit 26, platelets 815, 77% neutrophils, 10% lymphocytes, 10% monocytes. Sodium 134, potassium 4.2, chloride 97, bicarbonate 26, BUN 20, creatinine 5.7, glucose 127, calcium 7.9, magnesium 2. AST 35, ALT 16, alkaline phosphatase 552. CRP 23.2 on December 08. Wound culture from December 09, second OR, had few Escherichia (E) coli and few Enterococcus faecalis. E. coli is not an extended spectrum beta-lactamase (ESBL), only resistant to Bactrim, ampicillin. E. faecalis sensitive to penicillin, ampicillin, levofloxacin. PHYSICAL EXAMINATION: Temperature is 98.7, pulse 85, respirations 17, blood pressure 135/69, oxygen saturation 96% on room air. HEART: Normal S1, S2. No murmurs appreciated. LUNGS: Clear. No wheezes, rales, or rhonchi. ABDOMEN: Soft, nontender. No hepatosplenomegaly. EXTREMITIES: Edema +1 on the left side with minimal warmth. No tenderness. Tunneled hemodialysis catheter, right chest wall. Left foot was undressed. No purulent discharge. No redness. There are now two incisions that are open, 5th metatarsal and mid arch. No surrounding cellulitis. IMPRESSION: 1. Acute osteomyelitis of the left foot with culture positive for Enterococcus (E) faecalis and Escherichia (E) coli, both sensitive of levofloxacin. Patient is currently on ertapenem for E. coli extended spectrum beta-lactamase (ESBL) on original culture and vancomycin for E. faecalis, as carbapenems do not have great coverage for enterococcus. 2. End-stage renal disease, on hemodialysis from diabetic nephropathy. Patient doing well. PLAN: Continue with current intravenous (IV) antibiotics until postoperatively will discuss with Dr. Mondragon switching back to levofloxacin daily on discharge. Patient will need 6 weeks of antibiotics from second surgical date, which would be until January 20. Repeat complete blood count (CBC) and C-reactive protein (CRP) in the morning.
[2020-12-12] MEDS: ASPIRIN 81 MG ENTERIC TAB PO SCH (12:46)
[2020-12-12] MEDS: FIDAXOMICIN 200 MG TAB (DIFICID) PO SCH ×2 (12:46→21:05)
[2020-12-12] MEDS: LACTOBACILLUS ACIDOPHILUS CAP (BACID) PO SCH ×2 (12:47→17:30)
[2020-12-12] MEDS: **hydrALAZINE** 50 MG TAB PO SCH ×2 (12:47→21:06)
[2020-12-12] MEDS: METOPROLOL TARTRATE 100 MG TAB PO SCH ×2 (12:47→21:06)
[2020-12-12] MEDS: NIFEdipine 30 MG XL TAB PO SCH (12:49)
[2020-12-12] MEDS ORDERED: LIDOCAINE 1% MDV 20ML VIAL As Ordered ONE (14:29)
[2020-12-12] MEDS: **VANCO AFTER HD** MISC XX SCH (16:00)
--- NOTE | 2020-12-12 16:27 | IPN ---
PROGRESS NOTE DATE: 12/12/2020 SUBJECTIVE: Narcisa is seen and examined this morning in the hemodialysis unit receiving her treatment. She denies any complaints specifically. No shortness of breath. Her dialysis treatment has been uneventful. Her pain is adequately controlled. Temperature 98.7, pulse 86, respiratory rate 19, blood pressure 126/58, saturating 91-96% on room air. Intake yesterday was recorded as 1320, dialysis today removed 3.5 liters. Patient refused weight in the bed scale. General: Patient is seen receiving her treatment, awake, alert, oriented, and in no distress. Extraocular muscles are intact. Tongue is moist. Neck is supple. Her tunneled hemodialysis catheter is in use. Heart sounds are regular, S1, S2. There is 1+ left lower extremity edema and no significant edema in the right lower extremity. Lungs are clear to auscultation bilaterally, no crackle or rale. She is comfortable on room air. Abdomen is soft and nontender. Extremities show dressing on her left foot and a nonfunctional arteriovenous (AV) fistula in the right arm. Neurologic: She is oriented times three, interactive, and at baseline mentation. Today's laboratory studies show white count 13.1, hemoglobin 8.3, platelet 840, sodium 132, potassium 4.3, bicarbonate 26, CRP 13. Left foot wound culture grew Escherichia (E) coli and Enterococcus faecalis. Dialysis port culture is no growth for 48 hours. Inpatient medications reviewed by myself. I decreased the hydralazine to 50 mg twice a day. Remainder of medications are unchanged as compared to prior. PROBLEMS: 1. End-stage renal disease on hemodialysis on Thursday, Thursday, Thursday schedule. Patient is dialyzed today with 3.5 liters of fluid removed. Her treatments have been uneventful. Her electrolytes and volume status are acceptable. Continue current dialysis prescription. 2. Anemia related to end-stage renal disease and chronic inflammatory state. She is not suitable for IV iron at this time because of infectious issues. She is also having a reactive thrombocytosis. She is continued on Aranesp with dialysis and I would transfuse her for a hemoglobin less than 8. 3. Clostridium (C) difficile colitis. She is symptomatically and clinically improving. She is on Dificid and infectious diseases is following. 4. Hypertension. Blood pressures were somewhat soft with highest systolic being in the 130s and she did have one reading of 99/64. Because we do remove significant fluid with dialysis, I went ahead and reduced her hydralazine dose to 50 mg twice a day. Otherwise, she continues on amlodipine along with metoprolol and nifedipine. 5. Osteomyelitis of the left foot with Enterococcus faecalis and Escherichia (E) coli wound culture. Antimicrobials managed as per infectious diseases. She is going back to the operating room with podiatry on . Her white count and C-reactive protein (CRP) are noted. 6. Hypervolemic hyponatremia. It is mild. It is due to chronic renal failure. Continue fluid restriction and fluid removal with dialysis.
--- NOTE | 2020-12-12 16:29 | REP ---
PROCEDURE NAME: PICC LINE INSERTION W/SITERITE CLINICAL INFORMATION: poor peripheral access. COMPARISON: None. PROCEDURE DESCRIPTION: The procedure was performed by KEYSHAWN oCllins, under the direct supervision of Dr. Rizzo. The risks and benefits of the procedure were explained to the patient and an informed consent was obtained both verbally and written. Directly prior to the start of the procedure a formal time-out was completed in the procedure room. The left medial brachial vein was localized using ultrasound guidance. The skin was prepped and draped in sterile fashion. One mL of 1% lidocaine 10 mg/mL was used as a local anesthetic. Using ultrasound guidance the left medial brachial vein was cannulated, and a 0.018 guidewire was inserted and advanced to the level of SVC using fluoroscopic guidance. The needle was removed and a 5.5 Azerbaijani dilator and peel-away sheath was inserted over the guidewire. A 5.5 Azerbaijani dual lumen catheter was cut to a length of 41 cm. The dilator was removed and the catheter was inserted over the guidewire with the tip ending at the level of the SVC. The peel-away sheath was removed and the catheter was flushed with heparinized saline as per hospital protocol. The catheter was affixed to the skin and a sterile dressing was applied. The patient tolerated the procedure well and there were no immediate complications. CONCLUSION: PICC line insertion into the left medial brachial vein. 0.1 minutes of fluoroscopy time was utilized for this procedure. Some fluoroscopic images are performed with last image hold technology. These images require no additional radiation. <Electronically signed by Letty Pepe > 12/12/20 1602 <Electronically signed by Kip Rizzo > 12/12/20 [id number]
[2020-12-12] MEDS ORDERED: SODIUM CHLORIDE 0.9% INJ 10 ML SYR IV PRN (17:30)
[2020-12-12] MEDS: ERTAPENEM SODIUM 0.5 GM in NS 50 ML IV SCH (17:31)
[2020-12-12] MEDS: LEVEMIR (INSULIN DETEMIR) 1 UNITS/0.01ML SC SCH (21:07)
[2020-12-13] VITALS (8 sets, daily range): BP systolic 109–137; BP diastolic 56–79
[2020-12-13] MEDS: METOCLOPRAMIDE INJ 10MG/2ML VIAL (J2765 PER 1) IV SCH ×3 (01:00→16:22)
[2020-12-13] MEDS: SODIUM CHLORIDE 0.9% INJ 10 ML SYR IV SCH ×3 (04:59→18:02)
[2020-12-13 05:15] LABS: BASO # 0.1 10^3/uL (0.0-0.2); BASO % 0.4 % (0.0-1.0); EOS # 0.4 10^3/uL (0.0-0.5); EOS % 3.2 % (0.0-3.0); HEMATOCRIT 26.6 % (36.0-47.0); HEMOGLOBIN 8.2 g/dl (12.0-15.5); LYMPH # 1.3 10^3/uL (1.5-5.0); LYMPH % 9.8 % (24.0-44.0); MEAN CORPUSCULAR HEMOGLOBIN 28.6 pg (27.0-33.0); MEAN CORPUSCULAR HGB CONC 30.8 g/dl (32.0-36.5); MEAN CORPUSCULAR VOLUME 92.7 fl (80.0-96.0); MONO # 1.3 10^3/uL (0.0-0.8); MONO % 9.6 % (0.0-5.0); NEUTROPHILS # 9.9 10^3/uL (1.5-8.5); NEUTROPHILS % 75.8 % (36.0-66.0); PLATELET COUNT, AUTOMATED 902 10^3/uL (150-450); RED BLOOD COUNT 2.87 10^6/uL (4.00-5.40)
[2020-12-13 06:10] LABS: ALBUMIN 1.8 GM/DL (3.2-5.2); BILIRUBIN,TOTAL 0.6 MG/DL (0.2-1.0); CALCIUM LEVEL 8.4 MG/DL (8.5-10.1); CREATININE FOR GFR 5.1 MG/DL (0.55-1.30); GLOMERULAR FILTRATION RATE 12.6 (>60); MAGNESIUM LEVEL 1.9 MG/DL (1.8-2.4); POTASSIUM SERUM 3.6 MEQ/L (3.5-5.1)
[2020-12-13] MEDS: HumaLOG INSULIN (NovoLOG) PER UNIT SC SCH ×4 (06:57→21:00)
[2020-12-13] MEDS ORDERED: SODIUM CHLORIDE 0.9% INJ 10 ML SYR IV PRN (07:45)
[2020-12-13] MEDS ORDERED: MIDAZOLAM INJ 2MG/2ML VIAL (J2250 PER 1MG) As Ordered ONE (07:46)
[2020-12-13] MEDS ORDERED: fentaNYL 100 MCG/2 ML INJECTION (J3010) As Ordered ONE (07:47)
[2020-12-13] MEDS ORDERED: ROCURONIUM BROMIDE 50 MG/5 ML VIAL As Ordered ONE (07:52)
[2020-12-13] MEDS ORDERED: ONDANSETRON 4MG/2ML VIAL As Ordered ONE (07:52)
[2020-12-13] MEDS ORDERED: propofoL 200 MG/20 ML VIAL As Ordered ONE (07:52)
[2020-12-13] MEDS ORDERED: SUGAMMADEX SODIUM 500 MG/5 ML VIAL (BRIDION) As Ordered ONE (07:52)
[2020-12-13] MEDS ORDERED: dexameTHASONE 4 MG/ML 1ML VIAL (J1100 PER 1MG) As Ordered ONE (07:52)
[2020-12-13] MEDS ORDERED: LIDOCAINE 2% 100MG/5ML SDV (FOR ANES.) As Ordered ONE (07:52)
[2020-12-13] MEDS: (RENVELA) SEVELAMER **CARBONate** 800 MG TAB PO SCH ×3 (08:00→17:17)
[2020-12-13] MEDS ORDERED: VANCOMYCIN HCL 500 MG in D5W MINI-BAG PLUS 100 ML IV ONE (09:00)
[2020-12-13] MEDS: METOPROLOL TARTRATE 100 MG TAB PO SCH ×2 (09:08→21:11)
[2020-12-13] MEDS: **hydrALAZINE** 50 MG TAB PO SCH ×2 (09:08→21:10)
[2020-12-13] MEDS: FIDAXOMICIN 200 MG TAB (DIFICID) PO SCH ×2 (09:08→21:10)
[2020-12-13] MEDS: LACTOBACILLUS ACIDOPHILUS CAP (BACID) PO SCH ×2 (09:09→17:17)
[2020-12-13] MEDS ORDERED: VANCOMYCIN 500MG/10ML VIAL As Ordered ONE (09:34)
[2020-12-13] MEDS ORDERED: BUPIVACAINE HCL 0.5% 30 ML VIAL As Ordered ONE (09:34)
[2020-12-13] MEDS ORDERED: LIDOCAINE 1% SDV 30ML VIAL As Ordered ONE (09:34)
[2020-12-13] MEDS: NIFEdipine 30 MG XL TAB PO SCH (10:12)
--- NOTE | 2020-12-13 10:12 | IPNPDOC ---
Text Note Date of Service The patient was seen on 12/13/20. NOTE Subjective: Patient developed low-grade fever in the morning. Dr. Michael tomlinson today surgical intervention to close the wound of left foot Objective: GENERAL APPEARANCE: In mild distress HEENT: no scleral icterus, no JVD, EOMI CARDIOVASCULAR: S1S2 LUNGS: CTA ABDOMEN: soft & not tender w palpitation MUSCULOSKELETAL: Both feet covered with dressing INTEGUMENT: no generalized pallor NEUROLOGICAL: cranial nerve function from 2-12 intact intact, follows commands, speech not dysarthric Assessment and plan Patient is a 35 yr old w a hx of IDDM1 w neuropathy, retinopathy, Pulm HTN and Essential HTN who is admitted for management of suspected left 5th toe osteomyelitis. Sepsis Resolved Repeated blood culture negative Continue broad-spectrum antibiotics On 12/08/20 MRI SHOWED There are findings suspicious for osteomyelitis involving the head of the 2nd metatarsal and base of the 2nd proximal phalanx. There is an adjacent complex fluid collection between the 1st and 2nd metatarsophalangeal joints suspicious for an abscess. Dr. Mondragon did with surgical revision on 12/09/20 leukocytosis improved. Sepsis resolved Dr. Mondragon is planing to do surgical revision today Repeated wound culture showed Enterococcus faecalis and Escherichia coli Bilateral fifth osteomyelitis Dr. Mondragon took her to OR 12/02 for bilateral fifth metatarsal head excision Wound culture positive for Enterococcus faecalis and Escherichia coli ESBL Repeated wound culture positive for Enterococcus faecalis and Escherichia coli Multiple Blood cultures negative. I will repeat blood culture today due to fever the morning Pain management Dr. Krishnamurthy changed her antibiotics to vancomycin IV and and Ertapenem IV. Patient will need 6 weeks of antibiotics after last surgical intervention C. difficile diarrhea Resolved Continue by mouth fidaxomicin Chest pain Resolved Cardiac Workup negative End-stage renal diseases Nephrology team follows him Continue dialysis Hypertension Managed with dialysis Continue home meds Added Norvasc Type 1 diabetes Glucose level under control Insulin sliding scale Detemir Anemia Most likely due to end-stage renal disease Aranesp during dialysis She has received 3 units thus far on this admission. Thrombocytosis Most likely reactive secondary to anemia and infection Continue aspirin 81 mg VS,Fishbone, I+O VS, Fishbone, I+O Laboratory Tests 12/13/20 05:03 Vital Signs Date Time Temp Pulse Resp B/P (MAP) Pulse Ox O2 Delivery O2 Flow Rate FiO2 12/13/20 09:18 101.9 2/11/21 09:08 117/62 12/13/20 09:08 85 12/13/20 06:00 18 97 Room Air 12/09/20 12:30 2.0 I&O- Last 24 Hours up to 6 AM 12/13/20 06:00 Intake Total 300 ml Output Total 3860 ml Balance -3560 ml SARTHAK SILVA DO Dec 13, 2020 10:12
--- NOTE | 2020-12-13 11:10 | REP ---
INDICATION: cough COMPARISON: 12/07/2020 TECHNIQUE: Portable AP view of the chest FINDINGS: The mediastinum and cardiac silhouette are stable and cardiomegaly along with double-lumen catheter in the SVC again noted. The lung menjivar are clear without acute consolidation, effusion, or pneumothorax. Skeletal structures are intact. IMPRESSION: No acute cardiopulmonary process appreciated. No focal consolidation or effusion. <Electronically signed by Guy Garcia > 12/13/20 1105
--- NOTE | 2020-12-13 12:26 | IPN ---
PROGRESS NOTE DATE: 12/13/2020 SUBJECTIVE: Narcisa is seen and examined this morning at the bedside, she is NPO pending OR later today with Podiatry for further intervention on her left foot. Her platelet count continues to rise up to 902,000 today. She was dialyzed yesterday with 3.5 liters of fluid removed. She spiked a temperature this morning, 101.9 and repeat blood cultures and chest x-ray is taken. PHYSICAL EXAMINATION: VITAL SIGNS: Temperature 101.9, pulse 85, respiratory rate 18, blood pressure 117/62, saturating 97% on room air. INPUT AND OUTPUT: Dialysis yesterday removed 3.5 liters, weight on the bed scale today is 92.7 kg. GENERAL: The patient is seen sitting out of bed in a chair, young female, awake, alert and oriented in no apparent distress. HEENT: Extraocular muscles are intact. Tongue is moist. NECK: Supple. There is a tunneled hemodialysis catheter in the left chest wall. HEART: Heart sounds are regular, S1 and S2. There is 1+ leg edema in the left lower extremity but no significant edema in the right lower extremity. LUNGS: Clear to auscultation bilaterally. No crackle or rale. She is comfortable on room air. ABDOMEN: Soft and nontender. EXTREMITIES: Dressings on her left foot and 1+ edema in the left leg. There is a nonfunctional arterial venous access in the right arm. NEUROLOGIC: She is oriented x3, interactive and at baseline mentation. LABORATORY DATA: Today's laboratory studies show white count 13.0, hemoglobin 8.2, platelets 902,000, sodium 136, potassium 3.6, magnesium 1.9. Alkaline phosphatase is 713. A repeat SARS/COVID test is negative. Repeat blood cultures are pending. Chest x-ray today shows no consolidation or effusion. No acute cardiopulmonary process. INPATIENT MEDICATIONS: Reviewed by myself. Patient continues on IV Ertapenem and Vancomycin along with oral Dificid. She was started by primary service on Heparin 5000 units sub q. b.i.d. Yesterday, I decreased the Hydralazine dose to 50 mg b.i.d. Her remainder of medications are unchanged from prior. PROBLEMS: 1. Endstage renal disease on hemodialysis on Thursday, Thursday and Thursday Schedule. The patient was dialyzed yesterday with 3.5 liters removed. Her treatments have been uneventful. Her electrolytes and volume status are acceptable. Continue current dialysis prescription. We did draw cultures from her dialysis catheter on December 10 that had no growth. 2. Anemia related to endstage renal disease and chronic inflammatory state. Her last ferritin was more than 1200. She is not suitable for IV iron because of infectious issues. There is also significant thrombocytosis, possibly reactive in nature. I am going to transfuse 1 unit of blood with dialysis tomorrow and she continues on Aranesp as well. 3. C. Difficile colitis. Patient reports stools are thick and pasty, she continues on Dificid and Infectious Disease is following. 4. Osteomyelitis of the left foot with enterococcus faecalis and E. coli in the wound culture. Patient is going back to the Operating Room today. Her white count has increased over the past two days and I see that she has spiked a fever again and repeat blood cultures are drawn. 5. Hypertension. Blood pressures have been controlled without any documented hypotension. I have reduced the dose of hydralazine yesterday. 6. Thrombocytosis. Patient was started on low dose aspirin on December 11 in the setting of rising platelet count. Will also transfuse 1 unit of blood with dialysis tomorrow as she is quite anemic. Primary team is calling Hematology for further evaluation of her elevated platelets.
[2020-12-13] MEDS: HEPARIN SOD (PORCINE) 5000UNITS/ML 1ML VIAL/SYRINGE SQ SCH ×2 (14:26→21:10)
[2020-12-13] MEDS: ASPIRIN 81 MG ENTERIC TAB PO SCH (14:26)
[2020-12-13] MEDS: **VANCO AFTER HD** MISC XX SCH (15:28)
--- NOTE | 2020-12-13 16:58 | RO ---
OPERATIVE NOTE DATE OF OPERATION: 12/13/2020 PREOPERATIVE DIAGNOSIS: Left foot wound and infection. POSTOPERATIVE DIAGNOSIS: Left foot wound and infection. PROCEDURE: Left foot incision and drainage with antibiotic beads and wound closure. SURGEON: Butch Mondragon DPM EMBOSSED OR IMPRESSED LETTERING PAINTER: None. ANESTHESIA: Monitored anesthesia care, preop injection of 20 mL 1:1 mix of 1% Lidocaine plain and 0.5% Marcaine plain. ESTIMATED BLOOD LOSS: Minimal. MATERIALS: 2-0 and 3-0 nylon. INJECTABLES: None. SPECIMEN: Left fifth toe proximal phalanx. COMPLICATION: None. CONDITION: Stable. INDICATIONS: Narcisa Mireles is a 35-year-old female who has undergone incision and drainage to her left foot due to infection. She has improvement but had some persisting fevers and elevated white blood cell count. The decision was made to bring her to the operating room for further irrigation and with antibiotic bead placement. The patient's side and site were identified and marked in the preoperative area. Consent was reviewed and obtained. All risks, complications and alternatives to the procedure were explained to the patient in detail. All questions were answered. DESCRIPTION OF PROCEDURE: The patient was brought to the operating room and placed on the operating table in supine position. Monitored anesthesia care was delivered by the anesthesia team. Preop injection of 20 mL of 1:1 mix of 1% Lidocaine plain and 0.5% Marcaine plain were injected in the left foot. The foot was prepped and draped in normal sterile fashion. No tourniquet was used during the procedure. Previous wounds over the dorsal fifth metatarsal and the plantar foot were reopened using a hemostat. There was some trace purulence noted near the fifth toe and at the proximal and distal ends of the mid foot incision. Rongeur was used to remove nonviable tissue and the bone cutter was used to resect the base of the proximal phalanx which was sent for pathology. The site was irrigated with 500 mL of normal saline solution. Following this, Osteoset dissolvable antibiotic beads impregnated with Vancomycin powder were inserted into both incisions. The incisions were closed with 2-0 and 3-0 nylon. Sterile dressings were applied. The patient was brought to PACU with vital signs stable and neurovascular status intact. She will be readmitted to the floor for continued antibiotics and monitoring. We will follow.
[2020-12-13] MEDS: ERTAPENEM SODIUM 0.5 GM in NS 50 ML IV SCH (17:17)
[2020-12-13] MEDS: PERCOCET 5MG/325MG TAB PO PRN (19:01)
[2020-12-13] MEDS: LEVEMIR (INSULIN DETEMIR) 1 UNITS/0.01ML SC SCH (21:10)
[2020-12-13] MEDS: ACETAMINOPHEN TAB 650MG DOSE (2X325MG) PO PRN (23:10)
[2020-12-14] VITALS (7 sets, daily range): BP systolic 135–176; BP diastolic 67–95
[2020-12-14] MEDS: METOCLOPRAMIDE INJ 10MG/2ML VIAL (J2765 PER 1) IV SCH (01:00)
[2020-12-14] MEDS: SODIUM CHLORIDE 0.9% INJ 10 ML SYR IV SCH ×2 (05:45→16:47)
[2020-12-14 06:12] LABS: BASO # 0.1 10^3/uL (0.0-0.2); BASO % 0.5 % (0.0-1.0); EOS # 0.5 10^3/uL (0.0-0.5); EOS % 4.2 % (0.0-3.0); HEMATOCRIT 25.9 % (36.0-47.0); LYMPH # 1.4 10^3/uL (1.5-5.0); MEAN CORPUSCULAR HEMOGLOBIN 28.7 pg (27.0-33.0); MEAN CORPUSCULAR HGB CONC 30.9 g/dl (32.0-36.5); MEAN CORPUSCULAR VOLUME 92.8 fl (80.0-96.0); MONO # 1.4 10^3/uL (0.0-0.8); MONO % 10.7 % (0.0-5.0); NEUTROPHILS # 9.3 10^3/uL (1.5-8.5); NEUTROPHILS % 72.5 % (36.0-66.0); PLATELET COUNT, AUTOMATED 893 10^3/uL (150-450); RED BLOOD COUNT 2.79 10^6/uL (4.00-5.40); WHITE BLOOD COUNT 12.9 10^3/uL (4.0-10.0)
[2020-12-14 06:36] LABS: ALBUMIN 1.6 GM/DL (3.2-5.2); BILIRUBIN,TOTAL 0.8 MG/DL (0.2-1.0); C REACTIVE PROTEIN QUANTITATIV 9.58 MG/DL (0.00-0.30); CALCIUM LEVEL 8.4 MG/DL (8.5-10.1); CREATININE FOR GFR 6.5 MG/DL (0.55-1.30); GLOMERULAR FILTRATION RATE 9.5 (>60); MAGNESIUM LEVEL 1.9 MG/DL (1.8-2.4); POTASSIUM SERUM 3.9 MEQ/L (3.5-5.1); TOTAL PROTEIN 6.7 GM/DL (6.4-8.2); VANCOMYCIN RANDOM 22.9 UG/ML
[2020-12-14 06:47] LABS: ERYTHROCYTE SEDIMENTATION RATE 128 mm/hr (0-20)
[2020-12-14] MEDS: HumaLOG INSULIN (NovoLOG) PER UNIT SC SCH ×4 (07:30→21:00)
[2020-12-14] MEDS: (RENVELA) SEVELAMER **CARBONate** 800 MG TAB PO SCH ×3 (08:00→17:18)
[2020-12-14] MEDS: LACTOBACILLUS ACIDOPHILUS CAP (BACID) PO SCH ×2 (08:00→17:18)
[2020-12-14] MEDS ORDERED: VANCOMYCIN HCL 500 MG in D5W MINI-BAG PLUS 100 ML IV SCH (09:00)
--- NOTE | 2020-12-14 10:14 | IPNPDOC ---
Text Note Date of Service The patient was seen on 12/14/20. NOTE Subjective: No any acute events overnight Objective: GENERAL APPEARANCE: In mild distress HEENT: no scleral icterus, no JVD, EOMI CARDIOVASCULAR: S1S2 LUNGS: CTA ABDOMEN: soft & not tender w palpitation MUSCULOSKELETAL: Both feet covered with dressing INTEGUMENT: no generalized pallor NEUROLOGICAL: cranial nerve function from 2-12 intact intact, follows commands, speech not dysarthric Assessment and plan Patient is a 35 yr old w a hx of IDDM1 w neuropathy, retinopathy, Pulm HTN and Essential HTN who is admitted for management of suspected left 5th toe osteomyelitis. Sepsis Resolved Repeated blood culture negative Continue broad-spectrum antibiotics On 12/08/20 MRI SHOWED There are findings suspicious for osteomyelitis involving the head of the 2nd metatarsal and base of the 2nd proximal phalanx. There is an adjacent complex fluid collection between the 1st and 2nd metatarsophalangeal joints suspicious for an abscess. Dr. Mondragon did with surgical revision on 12/09/20 leukocytosis improved. Sepsis resolved Repeated wound culture showed Enterococcus faecalis and Escherichia coli Dr. Mondragon repeated surgical revision on 12/13/[address] Mondragon took her to OR 12/02 for bilateral fifth metatarsal head excision Wound culture positive for Enterococcus faecalis and Escherichia coli ESBL Repeated wound culture positive for Enterococcus faecalis and Escherichia coli Multiple Blood cultures negative. I will repeat blood culture today due to fever the morning Pain management Dr. Krishnamurthy changed her antibiotics to vancomycin IV and and Ertapenem IV. Patient will need 6 weeks of antibiotics after last surgical intervention C. difficile diarrhea Resolved Continue by mouth fidaxomicin Chest pain Resolved Cardiac Workup negative End-stage renal diseases Nephrology team follows him Continue dialysis Hypertension Managed with dialysis Continue home meds Added Norvasc Type 1 diabetes Glucose level under control Insulin sliding scale Detemir Anemia Most likely due to end-stage renal disease Aranesp during dialysis She has received 3 units thus far on this admission. Thrombocytosis Most likely reactive secondary to anemia and infection Continue aspirin 81 mg VS,Fishbone, I+O VS, Fishbone, I+O Laboratory Tests 12/14/20 05:48 Vital Signs Date Time Temp Pulse Resp B/P (MAP) Pulse Ox O2 Delivery O2 Flow Rate FiO2 12/14/20 09:00 97.6 73 16 155/84 Room Air 12/14/20 06:00 93 12/13/20 15:00 1.0 I&O- Last 24 Hours up to 6 AM 12/14/20 06:00 Intake Total 200 ml Output Total 0 ml Balance 200 ml SARTHAK SILVA DO Dec 14, 2020 10:14
[2020-12-14] MEDS ORDERED: SODIUM CHLORIDE 0.9% 1000ML IV PRN (10:30)
[2020-12-14] MEDS: ASPIRIN 81 MG ENTERIC TAB PO SCH (13:13)
[2020-12-14] MEDS: NIFEdipine 30 MG XL TAB PO SCH (13:13)
[2020-12-14] MEDS: FIDAXOMICIN 200 MG TAB (DIFICID) PO SCH ×2 (13:14→21:41)
[2020-12-14] MEDS: METOPROLOL TARTRATE 100 MG TAB PO SCH ×2 (13:14→21:42)
[2020-12-14] MEDS: **hydrALAZINE** 50 MG TAB PO SCH ×2 (13:14→21:42)
[2020-12-14] MEDS: HEPARIN SOD (PORCINE) 5000UNITS/ML 1ML VIAL/SYRINGE SQ SCH ×2 (13:15→21:43)
[2020-12-14] MEDS: **VANCO AFTER HD** MISC XX SCH (16:00)
[2020-12-14] MEDS: ERTAPENEM SODIUM 0.5 GM in NS 50 ML IV SCH (16:15)
[2020-12-14] MEDS: LEVEMIR (INSULIN DETEMIR) 1 UNITS/0.01ML SC SCH (21:41)
[2020-12-14] MEDS: PERCOCET 5MG/325MG TAB PO PRN (21:43)
[2020-12-15] MEDS: SODIUM CHLORIDE 0.9% INJ 10 ML SYR IV SCH ×2 (05:23→17:51)
[2020-12-15 05:45] LABS: BASO # 0.1 10^3/uL (0.0-0.2); BASO % 0.6 % (0.0-1.0); EOS # 0.7 10^3/uL (0.0-0.5); EOS % 5.6 % (0.0-3.0); HEMATOCRIT 28.2 % (36.0-47.0); HEMOGLOBIN 8.8 g/dl (12.0-15.5); LYMPH # 1.3 10^3/uL (1.5-5.0); LYMPH % 10.7 % (24.0-44.0); MEAN CORPUSCULAR HEMOGLOBIN 29.2 pg (27.0-33.0); MEAN CORPUSCULAR HGB CONC 31.2 g/dl (32.0-36.5); MEAN CORPUSCULAR VOLUME 93.7 fl (80.0-96.0); MONO # 1.1 10^3/uL (0.0-0.8); MONO % 8.9 % (2.0-8.0); NEUTROPHILS # 9.1 10^3/uL (1.5-8.5); PLATELET COUNT, AUTOMATED 891 10^3/uL (150-450); RED BLOOD COUNT 3.01 10^6/uL (4.00-5.40); WHITE BLOOD COUNT 12.4 10^3/uL (4.0-10.0)
[2020-12-15 06:00] VITALS: BP 131/67
[2020-12-15 07:16] LABS: ALBUMIN 1.7 GM/DL (3.2-5.2); BILIRUBIN,TOTAL 0.6 MG/DL (0.2-1.0); C REACTIVE PROTEIN QUANTITATIV 9.45 MG/DL (0.00-0.30); CREATININE FOR GFR 4.81 MG/DL (0.55-1.30); GLOMERULAR FILTRATION RATE 13.4 (>60); MAGNESIUM LEVEL 1.9 MG/DL (1.8-2.4); POTASSIUM SERUM 4.1 MEQ/L (3.5-5.1); TOTAL PROTEIN 6.1 GM/DL (6.4-8.2)
[2020-12-15] MEDS: HumaLOG INSULIN (NovoLOG) PER UNIT SC SCH ×4 (07:30→21:00)
[2020-12-15] MEDS: (RENVELA) SEVELAMER **CARBONate** 800 MG TAB PO SCH ×3 (10:05→17:15)
[2020-12-15] MEDS: HEPARIN SOD (PORCINE) 5000UNITS/ML 1ML VIAL/SYRINGE SQ SCH ×2 (10:05→21:08)
[2020-12-15] MEDS: FIDAXOMICIN 200 MG TAB (DIFICID) PO SCH ×2 (10:06→21:04)
[2020-12-15] MEDS: NIFEdipine 30 MG XL TAB PO SCH (10:06)
--- NOTE | 2020-12-15 10:06 | IPNPDOC ---
Text Note Date of Service The patient was seen on 12/15/20. NOTE Subjective: No fever for past 24 hours. Objective: GENERAL APPEARANCE: In mild distress HEENT: no scleral icterus, no JVD, EOMI CARDIOVASCULAR: S1S2 LUNGS: CTA ABDOMEN: soft & not tender w palpitation MUSCULOSKELETAL: Both feet covered with dressing INTEGUMENT: no generalized pallor NEUROLOGICAL: cranial nerve function from 2-12 intact intact, follows commands, speech not dysarthric Assessment and plan Patient is a 35 yr old w a hx of IDDM1 w neuropathy, retinopathy, Pulm HTN and Essential HTN who is admitted for management of suspected left 5th toe osteomyelitis. Sepsis Resolved Repeated blood culture negative Continue broad-spectrum antibiotics On 12/08/20 MRI SHOWED There are findings suspicious for osteomyelitis involving the head of the 2nd metatarsal and base of the 2nd proximal phalanx. There is an adjacent complex fluid collection between the 1st and 2nd metatarsophalangeal joints suspicious for an abscess. Dr. Mondragon did with surgical revision on 12/09/20 leukocytosis improved. Sepsis resolved Repeated wound culture showed Enterococcus faecalis and Escherichia coli Dr. Mondragon repeated surgical revision on 12/13/20. Anticipated discharge on Thursday Bilateral fifth osteomyelitis Dr. Mondragon took her to OR 12/02 for bilateral fifth metatarsal head excision Wound culture positive for Enterococcus faecalis and Escherichia coli ESBL Repeated wound culture positive for Enterococcus faecalis and Escherichia coli Multiple Blood cultures negative. I will repeat blood culture today due to fever the morning Pain management Dr. Krishnamurthy changed her antibiotics to vancomycin IV and and Ertapenem IV. Patient will need 6 weeks of Levaquin after last surgical intervention C. difficile diarrhea Resolved Continue by mouth fidaxomicin Chest pain Resolved Cardiac Workup negative End-stage renal diseases Nephrology team follows him Continue dialysis Hypertension Managed with dialysis Continue home meds Added Norvasc Type 1 diabetes Glucose level under control Insulin sliding scale Detemir Anemia Most likely due to end-stage renal disease Aranesp during dialysis She has received 3 units thus far on this admission. Thrombocytosis Most likely reactive secondary to anemia and infection Continue aspirin 81 mg VS,Fishbone, I+O VS, Fishbone, I+O Laboratory Tests 12/15/20 05:27 Vital Signs Date Time Temp Pulse Resp B/P (MAP) Pulse Ox O2 Delivery O2 Flow Rate FiO2 12/15/20 06:00 98.0 71 16 131/67 (88) 94 Room Air 12/13/20 15:00 1.0 I&O- Last 24 Hours up to 6 AM 12/15/20 06:00 Intake Total 2600 ml Output Total 3500 ml Balance -900 ml SARTHAK SILVA DO Dec 15, 2020 10:06
[2020-12-15] MEDS: ASPIRIN 81 MG ENTERIC TAB PO SCH (10:07)
[2020-12-15] MEDS: LACTOBACILLUS ACIDOPHILUS CAP (BACID) PO SCH ×2 (10:07→17:15)
[2020-12-15] MEDS: **hydrALAZINE** 50 MG TAB PO SCH ×2 (10:08→21:06)
[2020-12-15] MEDS: METOPROLOL TARTRATE 100 MG TAB PO SCH ×2 (10:08→21:07)
--- NOTE | 2020-12-15 11:05 | IPN ---
PROGRESS NOTE DATE: 12/15/2020 SUBJECTIVE: Patient seen and examined. She states her left foot is feeling better, denies other complaints. Vitals are examined. T-max 98.9. Labs are reviewed. White blood cell count trending downwards; it is 12.4. CRP 9.45. Lower extremity examination: Erythema and edema to the foot are reduced. The incisions are coactive without significant dehiscence, no tenderness with palpation. ASSESSMENT: This 35-year-old female with osteomyelitis and abscess; status post bone resection and incision and drainage with implantation of antibiotic beads. PLAN: Will trend labs and follow temperature over the next few days. If she remains afebrile and her labs normalize, she should be able to be discharged with antibiotics as directed by Dr. Krishnamurthy and wound care orders written.
[2020-12-15 14:00] VITALS: BP 131/67
[2020-12-15] MEDS: **VANCO AFTER HD** MISC XX SCH (15:26)
--- NOTE | 2020-12-15 16:05 | IPN ---
PROGRESS NOTE DATE: 12/15/2020 SUBJECTIVE: Patient seen and examined this morning at the bedside. She denies any complaints. She tolerated dialysis yesterday with 3.5 liters removed. Remained afebrile for the past two days and denies any shortness of breath, nausea, vomiting nor diarrhea. OBJECTIVE: VITAL SIGNS: Temperature 98.0, pulse 71, respiratory rate 16, blood pressure 131/67, saturating 94% on room air. INTAKE AND OUTPUT: Intake yesterday was 2 liters. Dialysis yesterday removed 3.5 liters. Weight in the bed scale today is not recorded. GENERAL: Patient is seen sitting at the edge of the bed, legs dangling, eating her breakfast, in no apparent distress. HEENT: Extraocular muscles are intact. Tongue is moist. Neck supple. CHEST: There is a tunneled hemodialysis catheter present in the chest wall. There is a nonfunctional arterial venous access in the right arm. HEART: There is about trace leg edema bilaterally. LUNGS: Clear to auscultation bilaterally. No crackle or rale. She is comfortable on room air. ABDOMEN: Soft and nontender. EXTREMITIES: She has dressings on her left foot. As previously mentioned, there is a failed nonfunctional AV access in the right arm. NEUROLOGIC: She is oriented x3, interactive and at baseline mentation. LABORATORY DATA: Today's lab studies show hemoglobin 8.8, platelets 891,000, white count 12.4. Sodium 135, potassium 4.1. Alkaline phosphatase 712. CRP 9.4. INPATIENT MEDICATIONS: Reviewed by myself and no changes noted as compared to yesterday. PROBLEMS: 1. End-stage renal disease on hemodialysis on a Thursday, Thursday, Thursday schedule: She was dialyzed yesterday with 3.5 liters removed. Her treatments have been uneventful. Her electrolytes and volume status are acceptable. She had cultures done from the dialysis catheter that had no growth. She will follow-up with vascular surgery as an outpatient to work on her arteriovenous access. For now, continue with dialysis through [facility]. 2. Anemia related to end-stage renal disease and chronic inflammatory state: She was transfused 1 unit packed red blood cells with dialysis yesterday and hemoglobin has improved, and she continues on Aranesp as well. There is also significant thrombocytosis. 3. C. difficile colitis: She continues on Dificid and infectious disease is following. She reports the stools are thick and paste. 4. Osteomyelitis of the left foot with Enterococcal Faecalis and E. Coli in the wound culture: She has been afebrile the past two days. She continues on antibiotics; managed per Dr. Krishnamurthy, and she is going to need six weeks of Levaquin. Anticipated discharge is Thursday. 5. Thrombocytosis: Most likely it is reactive and secondary to her anemia and infectious state. I did start her on aspirin last week and she was transfused 1 unit with dialysis yesterday. Primary team was going to discuss further with hematology to see if there are any more recommendations.
[2020-12-15] MEDS: ERTAPENEM SODIUM 0.5 GM in NS 50 ML IV SCH (17:15)
[2020-12-15] MEDS: LEVEMIR (INSULIN DETEMIR) 1 UNITS/0.01ML SC SCH (21:03)
[2020-12-15 22:00] VITALS: BP 127/70
[2020-12-16] MEDS: SODIUM CHLORIDE 0.9% INJ 10 ML SYR IV SCH ×2 (05:39→17:52)
[2020-12-16 06:41] VITALS: BP 138/71
[2020-12-16 06:44] LABS: BASO # 0.1 10^3/uL (0.0-0.2); BASO % 0.8 % (0.0-1.0); EOS # 0.7 10^3/uL (0.0-0.5); EOS % 5.6 % (0.0-3.0); HEMATOCRIT 28.5 % (36.0-47.0); HEMOGLOBIN 9.4 g/dl (12.0-15.5); LYMPH # 1.5 10^3/uL (1.5-5.0); MEAN CORPUSCULAR HEMOGLOBIN 30.1 pg (27.0-33.0); MEAN CORPUSCULAR VOLUME 91.3 fl (80.0-96.0); MONO # 1.1 10^3/uL (0.0-0.8); NEUTROPHILS # 8.9 10^3/uL (1.5-8.5); NEUTROPHILS % 71.7 % (36.0-66.0); PLATELET COUNT, AUTOMATED 944 10^3/uL (150-450); RED BLOOD COUNT 3.12 10^6/uL (4.00-5.40); WHITE BLOOD COUNT 12.4 10^3/uL (4.0-10.0)
[2020-12-16 07:08] LABS: CREATININE FOR GFR 6.09 MG/DL (0.55-1.30); GLOMERULAR FILTRATION RATE 10.2 (>60); MAGNESIUM LEVEL 2.1 MG/DL (1.8-2.4); POTASSIUM SERUM 4.3 MEQ/L (3.5-5.1)
[2020-12-16] MEDS: HumaLOG INSULIN (NovoLOG) PER UNIT SC SCH ×4 (07:30→20:27)
[2020-12-16] MEDS: (RENVELA) SEVELAMER **CARBONate** 800 MG TAB PO SCH ×3 (08:00→18:36)
--- NOTE | 2020-12-16 09:37 | IPNPDOC ---
Text Note Date of Service The patient was seen on 12/16/20. NOTE Subjective: No any acute events overnight. Patient denies fever, chills, nausea, diarrhea or dysuria Objective: GENERAL APPEARANCE: In mild distress HEENT: no scleral icterus, no JVD, EOMI CARDIOVASCULAR: S1S2 LUNGS: CTA ABDOMEN: soft & not tender w palpitation MUSCULOSKELETAL: Both feet covered with dressing INTEGUMENT: no generalized pallor NEUROLOGICAL: cranial nerve function from 2-12 intact intact, follows commands, speech not dysarthric Assessment and plan Patient is a 35 yr old w a hx of IDDM1 w neuropathy, retinopathy, Pulm HTN and Essential HTN who is admitted for management of suspected left 5th toe osteomyelitis. Sepsis Resolved Repeated blood culture negative Continue broad-spectrum antibiotics On 12/08/20 MRI SHOWED There are findings suspicious for osteomyelitis involving the head of the 2nd metatarsal and base of the 2nd proximal phalanx. There is an adjacent complex fluid collection between the 1st and 2nd metatarsophalangeal joints suspicious for an abscess. Dr. Mondragon did with surgical revision on 12/09/20 leukocytosis improved. Sepsis resolved Repeated wound culture showed Enterococcus faecalis and Escherichia coli Dr. Mondragon repeated surgical revision on 12/13/20. Anticipated discharge on Thursday Bilateral fifth osteomyelitis Dr. Mondragon took her to OR 12/02 for bilateral fifth metatarsal head excision Wound culture positive for Enterococcus faecalis and Escherichia coli ESBL Repeated wound culture positive for Enterococcus faecalis and Escherichia coli Multiple Blood cultures negative. I will repeat blood culture today due to fever the morning Pain management Dr. Krishnamurthy changed her antibiotics to vancomycin IV and and Ertapenem IV. Patient will need 6 weeks of Levaquin after last surgical intervention C. difficile diarrhea Resolved Continue by mouth fidaxomicin Chest pain Resolved Cardiac Workup negative End-stage renal diseases Nephrology team follows him Continue dialysis Hypertension Managed with dialysis Continue home meds Added Norvasc Type 1 diabetes Glucose level under control Insulin sliding scale Detemir Anemia Most likely due to end-stage renal disease Aranesp during dialysis She has received 3 units thus far on this admission. Thrombocytosis Most likely reactive secondary to anemia and infection Continue aspirin 81 mg VS,Fishbone, I+O VS, Fishbone, I+O Laboratory Tests 12/16/20 06:04 Vital Signs Date Time Temp Pulse Resp B/P (MAP) Pulse Ox O2 Delivery O2 Flow Rate FiO2 12/16/20 06:41 99.7 86 18 138/71 (93) 93 Room Air 12/13/20 15:00 1.0 I&O- Last 24 Hours up to 6 AM 12/16/20 06:00 Intake Total 1120 ml Balance 1120 ml SARTHAK SILVA DO Dec 16, 2020 09:37
--- NOTE | 2020-12-16 10:25 | IPN ---
PROGRESS NOTE DATE: 12/16/2020 SUBJECTIVE: The patient is seen and examined this morning at the bedside. She denies any complaints. Specifically, denies any shortness of breath, nausea, vomiting, or recurrent diarrhea. She is for probable discharge tomorrow. OBJECTIVE: VITAL SIGNS: Temperature 99.7, pulse 86, respiratory rate 18, blood pressure 138/71. Saturating 93% to 99% on room air. GENERAL: The patient is seen awake, alert, oriented, and lying in bed in no apparent distress. HEENT: Extraocular muscles are intact. Tongue is moist. NECK: Neck is supple. CARDIAC: There is a tunneled hemodialysis catheter present in the right chest wall. There is a nonfunctional arterial venous access in the right arm. There is 1+ leg edema bilaterally. LUNGS: Clear to auscultation bilaterally. No crackles or rales. She is comfortable on room air. ABDOMEN: Soft and nontender. EXTREMITIES: Negative for clubbing or cyanosis. There is 1+ leg edema. The left foot was not examined today. NEUROLOGIC: She is oriented x3, interactive, and at baseline mentation. LABORATORY DATA: Today's laboratory studies show white count 12.4, hemoglobin 9.4, platelets 944,000. Sodium 135, potassium 4.3, bicarbonate 24, magnesium 2.1. INPATIENT MEDICATIONS: Reviewed by myself. No change noted as compared to prior day. PROBLEMS: 1. End-stage renal disease on hemodialysis on a Thursday, Thursday, and Thursday schedule. Her next treatment will be tomorrow. Her electrolytes and volume status are acceptable. We are removing about 3.5 liters with each treatment. She will follow-up with vascular surgery as an outpatient to work on her arterial venous access. 2. Anemia related to end-stage renal disease on chronic inflammatory state. She has gotten a total of four units of packed red blood cells on this admission. She is also receiving Aranesp with dialysis. Hemoglobin is not yet at goal. 3. Thrombocytosis most likely reactive and related to anemia, infection, and inflammatory state. 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 Will continue aspirin at this time. She does receive heparin with dialysis. If her hemoglobin is less than 8.5 tomorrow, I will transfuse her again. 4. Clostridium difficile colitis. She continues with Dificid and is symptomatically and clinically improved. 5. Osteomyelitis of the left foot with Enterococcus faecalis and Escherichia coli in the wound culture. The patient is presently on Ertapenem and vancomycin as per infectious disease with plan to discharge on renally dosed levofloxacin for a total of six weeks of antibiotic from second surgical date. 6. Hypertension. Blood pressures are well-controlled and no changes are being made to the current medications.
[2020-12-16] MEDS: HEPARIN SOD (PORCINE) 5000UNITS/ML 1ML VIAL/SYRINGE SQ SCH ×2 (12:07→21:03)
[2020-12-16] MEDS: NIFEdipine 30 MG XL TAB PO SCH (12:08)
[2020-12-16] MEDS: FIDAXOMICIN 200 MG TAB (DIFICID) PO SCH ×2 (12:09→21:03)
[2020-12-16] MEDS: METOPROLOL TARTRATE 100 MG TAB PO SCH ×2 (12:09→21:03)
[2020-12-16] MEDS: ASPIRIN 81 MG ENTERIC TAB PO SCH (12:10)
[2020-12-16] MEDS: **hydrALAZINE** 50 MG TAB PO SCH ×2 (12:10→21:03)
[2020-12-16] MEDS: LACTOBACILLUS ACIDOPHILUS CAP (BACID) PO SCH ×2 (12:11→18:36)
[2020-12-16 14:00] VITALS: BP 143/83
[2020-12-16] MEDS: **VANCO AFTER HD** MISC XX SCH (16:00)
[2020-12-16] MEDS: ERTAPENEM SODIUM 0.5 GM in NS 50 ML IV SCH (17:13)
[2020-12-16] MEDS: LEVEMIR (INSULIN DETEMIR) 1 UNITS/0.01ML SC SCH (21:03)
[2020-12-16 21:08] VITALS: BP 141/78
[2020-12-17] MEDS: SODIUM CHLORIDE 0.9% INJ 10 ML SYR IV SCH (05:36)
[2020-12-17 05:38] VITALS: BP 116/65
[2020-12-17] MEDS: **hydrALAZINE** 50 MG TAB PO SCH (05:38)
[2020-12-17] MEDS: METOPROLOL TARTRATE 100 MG TAB PO SCH (05:38)
[2020-12-17] MEDS: HEPARIN SOD (PORCINE) 5000UNITS/ML 1ML VIAL/SYRINGE SQ SCH (05:38)
[2020-12-17] MEDS: FIDAXOMICIN 200 MG TAB (DIFICID) PO SCH (05:39)
[2020-12-17] MEDS: ASPIRIN 81 MG ENTERIC TAB PO SCH (05:39)
[2020-12-17] MEDS: NIFEdipine 30 MG XL TAB PO SCH (05:39)
[2020-12-17 06:49] LABS: BASO # 0.1 10^3/uL (0.0-0.2); BASO % 0.7 % (0.0-1.0); EOS # 0.7 10^3/uL (0.0-0.5); EOS % 5.5 % (0.0-3.0); HEMATOCRIT 29.1 % (36.0-47.0); HEMOGLOBIN 9.3 g/dl (12.0-15.5); LYMPH # 1.3 10^3/uL (1.5-5.0); LYMPH % 10.3 % (24.0-44.0); MEAN CORPUSCULAR HEMOGLOBIN 29.2 pg (27.0-33.0); MEAN CORPUSCULAR VOLUME 91.5 fl (80.0-96.0); MONO # 1.1 10^3/uL (0.0-0.8); MONO % 9.2 % (2.0-8.0); NEUTROPHILS # 8.9 10^3/uL (1.5-8.5); NEUTROPHILS % 73.2 % (36.0-66.0); PLATELET COUNT, AUTOMATED 912 10^3/uL (150-450); RED BLOOD COUNT 3.18 10^6/uL (4.00-5.40); WHITE BLOOD COUNT 12.1 10^3/uL (4.0-10.0)
[2020-12-17 07:16] LABS: C REACTIVE PROTEIN QUANTITATIV 5.95 MG/DL (0.00-0.30); CALCIUM LEVEL 8.3 MG/DL (8.5-10.1); CREATININE FOR GFR 7.36 MG/DL (0.55-1.30); GLOMERULAR FILTRATION RATE 8.2 (>60); MAGNESIUM LEVEL 2.2 MG/DL (1.8-2.4); POTASSIUM SERUM 4.5 MEQ/L (3.5-5.1); VANCOMYCIN RANDOM 13.8 UG/ML
[2020-12-17] MEDS ORDERED: VANCOMYCIN HCL 500 MG in D5W MINI-BAG PLUS 100 ML IV ONE (07:30)
[2020-12-17] MEDS: LACTOBACILLUS ACIDOPHILUS CAP (BACID) PO SCH (08:03)
[2020-12-17] MEDS: HumaLOG INSULIN (NovoLOG) PER UNIT SC SCH ×2 (08:03→14:00)
[2020-12-17] MEDS: (RENVELA) SEVELAMER **CARBONate** 800 MG TAB PO SCH ×2 (08:03→14:00)
[2020-12-17] MEDS ORDERED: SODIUM CHLORIDE 0.9% 1000ML IV PRN (08:30)
[2020-12-17] MEDS: DARBEPOETIN 200MCG/0.4ML *DIALYSIS* SYRINGE (J0882 PER 1MCG) IV SCH (10:11)
[2020-12-17] MEDS ORDERED: VANC125C3 PO (10:29)
[2020-12-17] MEDS ORDERED: HYDR50TA PO (10:29)
[2020-12-17] MEDS ORDERED: AMLO1TAB25 PO (10:29)
[2020-12-17] MEDS ORDERED: PERCOCET PO (10:29)
[2020-12-17] MEDS ORDERED: RISATAB3 PO (10:29)
[2020-12-17] MEDS ORDERED: ASPI81TAEC PO (10:29)
[2020-12-17] MEDS ORDERED: LEVO500T3 PO (10:29)
--- NOTE | 2020-12-17 11:57 | DS.PDOC ---
Discharge Summary General Date of Admission Dec 01, 2020 at 02:29 Date of Discharge 12/17/20 Discharge Summary PROCEDURES PERFORMED DURING STAY: [None]. ADMITTING DIAGNOSES: Sepsis Bilateral fifth osteomyelitis C. difficile diarrhea Chest pain End-stage renal diseases Hypertension Type 1 diabetes Anemia Thrombocytosis DISCHARGE DIAGNOSES: Sepsis Bilateral fifth osteomyelitis C. difficile diarrhea Chest pain End-stage renal diseases Hypertension Type 1 diabetes Anemia Thrombocytosis COMPLICATIONS/CHIEF COMPLAINT: Diabetic Foot Ulcer W/Osteomyelitis. HISTORY OF PRESENT ILLNESS:Patient is a 35 yr old w a hx of IDDM1 w neuropathy, retinopathy, Pulm HTN and Essential HTN who is admitted for management of suspected left 5th toe osteomyelitis. HOSPITAL COURSE: During the hospital stay the following issue addressed Sepsis Resolved Repeated blood culture negative Patient received broad-spectrum antibiotics On 12/08/20 MRI SHOWED There are findings suspicious for osteomyelitis involving the head of the 2nd metatarsal and base of the 2nd proximal phalanx. There is an adjacent complex fluid collection between the 1st and 2nd metatarsophalangeal joints suspicious for an abscess. Dr. Mondragon did with surgical revision on 12/09/20 leukocytosis improved. Sepsis resolved Repeated wound culture showed Enterococcus faecalis and Escherichia coli Dr. Mondragon repeated surgical revision on 12/13/20. Bilateral fifth osteomyelitis Dr. Mondragon took her to OR 12/02 for bilateral fifth metatarsal head excision Wound culture positive for Enterococcus faecalis and Escherichia coli ESBL Repeated wound culture positive for Enterococcus faecalis and Escherichia coli Multiple Blood cultures negative. I will repeat blood culture today due to fever the morning Pain management Dr. Krishnamurthy changed her antibiotics to vancomycin IV and and Ertapenem IV. Patient will need 3 weeks of Levaquin after last surgical intervention and vancomycin by mouth 125 mg twice a day for next 4 weeks C. difficile diarrhea Resolved Continue by mouth fidaxomicin Chest pain Resolved Cardiac Workup negative End-stage renal diseases Nephrology team follows him Continue dialysis Hypertension Managed with dialysis Continue home meds Added Norvasc Type 1 diabetes Glucose level under control Insulin sliding scale Detemir Anemia Most likely due to end-stage renal disease Aranesp during dialysis She has received 3 units thus far on this admission. Thrombocytosis Most likely reactive secondary to anemia and infection Continue aspirin 81 mg DISCHARGE MEDICATIONS: Please see below. ALLERGIES: Please see below. PHYSICAL EXAMINATION ON DISCHARGE: VITAL SIGNS: Please see below. GENERAL APPEARANCE: In mild distress HEENT: no scleral icterus, no JVD, EOMI CARDIOVASCULAR: S1S2 LUNGS: CTA ABDOMEN: soft & not tender w palpitation MUSCULOSKELETAL: Both feet covered with dressing INTEGUMENT: no generalized pallor NEUROLOGICAL: cranial nerve function from 2-12 intact intact, follows commands, speech not dysarthric LABORATORY DATA: Please see below. IMAGING: [facility] NAME: KATELYN COLLINS DATE OF : 1985 AGE: 35 SEX: F REPORT #: [id number] ROOM: [facility] TECHNOLOGIST: ELIZABETH DOCTOR: SARTHAK SILVA DO Ordered for Date&Time: 12/08/20 1040 cc: [~ rep ct ivnm] Service Date&Time: 12/08/20 1209 This report is in Signed status. If this report is in a DRAFT status it has not yet been reviewed by the radiologist for accuracy. Thank you for having your radiology procedures performed at [facility] RADIOLOGY REPORT Date&Time printed: [~ rep prt dt last] [~ rep prt tm last] Page 2 of 2 [place] [address] RADIOLOGY REPORT This report is in Signed status. If this report is in a DRAFT status it has not yet been reviewed by the radiologist for accuracy. Thank you for having your radiology procedures performed at [facility] RADIOLOGY REPORT Date&Time printed: [~ rep prt dt last] [~ rep prt tm last] Page 1 of 2 REASON FOR PATIENT VISIT: DIABETIC FOOT ULCER W/OSTEOMYELITIS REASON FOR EXAM/COMMENT: osteo, abcess INDICATION: osteo, ABCESS. COMPARISON: Radiographs 12/01/2020. TECHNIQUE: Multiple sequences obtained in the axial, coronal and sagittal planes without the use of intravenous contrast. FINDINGS: There is diffuse low signal on T1 and high signal on T2 involving all of the phalanges of the 5th toe and the majority of the 5th metatarsal, with relative sparing of the base of the 5th metatarsal. Findings are consistent with osteomyelitis. Similar signal is seen in the head of the 2nd metatarsal and base of the 2nd proximal phalanx and early osteomyelitis at that location cannot be excluded. There is an adjacent lobulated complex fluid collection between the 1st and 2nd metatarsophalangeal joints which I am suspicious represents an abscess. This measures approximately 6.2 x 3.7 by 1.8 cm. There is adjacent moderate amount of lobulated fluid tracking more proximally along the flexor tendons in the plantar soft tissues of the foot. This could represent a peritendinous abscess. This extends throughout the plantar soft tissues more proximally to the calcaneus. There is diffuse high signal throughout the soft tissues of the foot on T2 weighted images compatible with diffuse edema and cellulitis. Mild joint fluid is seen at the ankle. IMPRESSION: Findings compatible with osteomyelitis of the 5th metatarsal and 5th toe phalanges. Base of the 5th metatarsal is spared. There are findings suspicious for osteomyelitis involving the head of the 2nd metatarsal and base of the 2nd proximal phalanx. There is an adjacent complex fluid collection between the 1st and 2nd metatarsophalangeal joints suspicious for an abscess. Lobulated fluid extends more proximally from this location along the flexor tendons in the plantar soft tissues of the foot, extending into the posterior medial plantar soft tissues adjacent to the calcaneus. This may also represent an abscess. <Electronically signed by Hesham Oconnell > 12/08/20 1325 DD: Hesham Oconnell MD, MD 12/08/20 1313 DT: JEFFREY 12/08/20 1325 DS: ALBER 12/08/20 1313 12/08/20 1313 [~ rep ct labl] PROGNOSIS: Fair ACTIVITY: [As tolerated]. DIET: Cardiac DISCHARGE PLAN: Home with home health ITEMS TO FOLLOWUP ON ON OUTPATIENT: Follow-up with ID specialist, manager cargo, oil speculator, and dyspnea DISCHARGE CONDITION: [Stable]. TIME SPENT ON DISCHARGE:40 minutes. Vital Signs/I&Os Vital Signs Date Time Temp Pulse Resp B/P (MAP) Pulse Ox O2 Delivery O2 Flow Rate FiO2 12/17/20 05:38 116/65 12/17/20 05:38 78 12/16/20 21:08 97.4 17 100 Room Air 12/13/20 15:00 1.0 I&O- Last 24 Hours up to 6 AM 12/17/20 06:00 Intake Total 1650 ml Output Total 0 ml Balance 1650 ml Laboratory Data Labs 24H Laboratory Tests 2 12/16/20 16:31: Bedside Glucose (Misc Panel) 130H 12/16/20 19:47: Bedside Glucose (Misc Panel) 126H 12/17/20 06:30: Immature Granulocyte % (Auto) 1.1, Neutrophils (%) (Auto) 73.2H, Lymphocytes (%) (Auto) 10.3L, Monocytes (%) (Auto) 9.2H, Eosinophils (%) (Auto) 5.5H, Basophils (%) (Auto) 0.7, Neutrophils # (Auto) 8.9H, Lymphocytes # (Auto) 1.3L, Monocytes # (Auto) 1.1H, Eosinophils # (Auto) 0.7H, Basophils # (Auto) 0.1, Nucleated Red Blood Cells % (auto) 0.0, Anion Gap 10, Glomerular Filtration Rate 8.2L, Calcium Level 8.3L, Magnesium Level 2.2, C-Reactive Protein, Quantitative 5.95H, Random Vancomycin Level 13.8 CBC/BMP Laboratory Tests 12/17/20 06:30 FSBS Laboratory Tests Test 12/16/20 16:31 12/16/20 19:47 Range/Units Bedside Glucose (Misc Panel) 130 126 70-105 MG/DL Microbiology Microbiology 12/13/20 Blood Culture - Preliminary, Resulted No Growth after 72 hours. All specime... 12/13/20 Blood Culture - Preliminary, Resulted No Growth after 72 hours. All specime... 12/10/20 Blood Culture - Final, Complete NO GROWTH AFTER 5 DAYS 12/09/20 Gram Stain - Final, Complete 12/09/20 Wound Culture - Final, Complete Escherichia Coli Enterococcus Faecalis 12/09/20 Anaerobic Culture - Final, Complete 12/08/20 Blood Culture - Final, Complete NO GROWTH AFTER 5 DAYS 12/08/20 Blood Culture - Final, Complete NO GROWTH AFTER 5 DAYS 12/07/20 Blood Culture - Final, Complete NO GROWTH AFTER 5 DAYS 12/07/20 Blood Culture - Final, Complete NO GROWTH AFTER 5 DAYS Discharge Medications Scheduled Amlodipine Besylate (Amlodipine Besylate) 10 Mg Tablet, 10 MG PO DAILY Aspirin (Aspirin EC) 81 Mg Tablet.dr, 81 MG PO QAM Ergocalciferol (Vitamin D2) (Vitamin D2) 50,000 Units Cap, 1 CAP PO QWEEK, (Reported) THURSDAY Furosemide (Furosemide) 80 Mg Tablet, 80 MG PO BID, (Reported) Hydralazine HCl (Hydralazine HCl) 25 Mg Tablet, 50 MG PO TID, (Reported) Hydralazine HCl (Hydralazine HCl) 50 Mg Tablet, 50 MG PO BID Insulin Glargine,Hum.rec.anlog (Lantus Solostar) 100 Unit/1 Ml Insuln.pen, 5 UNITS SC QHS, (Reported) Insulin Human Lispro (Novolog) 100 Unit/1 Ml Vial, 1 DOSE SC ASDIRECTED, (Reported) PER SLIDING SCALE L.acidoph/L.bulg/B.bif/S.therm (Tonja-Bid Caplet) 1 Each Tablet, 1 EA PO BIDWM Levofloxacin (Levofloxacin) 500 Mg Tablet, 500 MG PO DAILY Metoprolol Tartrate (Metoprolol Tartrate) 100 Mg Tablet, 100 MG PO BID, (Reported) Nifedipine (Nifedipine ER) 90 Mg Tablet.er, 90 MG PO DAILY, (Reported) Sevelamer Carbonate (Sevelamer Carbonate) 800 Mg Tablet, 800 MG PO BID, (Reported) with a snack Sevelamer Carbonate (Sevelamer Carbonate) 800 Mg Tablet, 1,600 MG PO TID, (Reported) WITH MEALS Vancomycin Hcl (Vancomycin HCl) 125 Mg Capsule, 125 MG PO QID Scheduled PRN Oxycodone/Acetaminophen (Oxycodone-Acetaminophen 5-325) 1 Each Tablet, 2 TAB PO Q6HP PRN for SEVERE PAIN (PS 8-10) Allergies Coded Allergies: cinacalcet (Verified Allergy, Unknown, 11/25/20) latex (Verified Allergy, Unknown, 11/03/19) morphine (Verified Allergy, Unknown, 11/03/19) peanut (Verified Allergy, Unknown, 11/25/20) TAPE (Verified Adverse Reaction, Intermediate, IRRITATES SKIN, 11/03/19) USE PAPER TAPE ONL;SARTHAK NICHOLS DO Dec 17, 2020 11:57
[2020-12-17 14:00] VITALS: BP 136/76
--- NOTE | 2020-12-17 17:15 | IPN ---
PROGRESS NOTE DATE: 12/17/2020 SUBJECTIVE: Ms. Mireles is seen this morning during hemodialysis. She is resting comfortably and denies any new complaints. She has no dyspnea, chest pain, fever or chills. Her left foot is in the dressing. She denies any significant pain in her left foot. PHYSICAL EXAMINATION: VITAL SIGNS: Temperature 97.4 degrees Fahrenheit, heart rate is 78 per minute and respiratory rate is 17 per minute. Blood pressure 116/65 mmHg and oxygen saturation 100% on room air. HEENT: Head is atraumatic. NECK: Supple without JVD or thyroid enlargement. Hemodialysis catheter in right internal jugular vein is intact. HEART: Heart sounds are regular. LUNGS: Clear to auscultation. ABDOMEN: Soft and nontender. Bowel sounds are normal. EXTREMITIES: Without any cyanosis or clubbing. Left foot is in the dressing. NEUROLOGIC: She is at her baseline mentation without any focal deficit. LABORATORY DATA: Today's labs shows a WBC count of 12.1, hemoglobin 9.3 and hematocrit 29.1. Platelets are 912,000. A random Vancomycin level is 13.8 today. Sodium is 134, potassium 4.5, BUN 36 and creatinine 7.36. C-reactive protein has come down to 5.95. PROBLEMS: 1. Endstage renal disease. Patient is being dialyzed today and she is tolerating her dialysis treatment very well. 2. Hypertension. Blood pressure is very well-controlled on current antihypertensive medication. It is important to note that during her hospitalization has been very well-controlled all along while on admission her blood pressure was about 240/140. She has been chronically noncompliant with medication at home and her blood pressure usually runs very high. 3. Diabetes, her diabetes also seems much better controlled in the hospital. She needs to follow her dietary restrictions and take her insulin. 4. Anemia, at present, anemia is stable and does not need any urgent intervention. She has been receiving Aranesp on a weekly basis. 5. Osteomyelitis of the left foot. She is doing well following surgery and debridement. She remains on antibiotics and will go home for six more weeks of antibiotic therapy by mouth. 6. Disposition: The patient is likely to be discharged today after dialysis. She will follow-up in the outpatient dialysis clinic where the next dialysis will be scheduled for Thursday.
--- NOTE | 2020-12-17 17:15 | IPN ---
INPATIENT PROGRESS NOTE DATE: 12/14/2020 SUBJECTIVE: Patient seen and examined this morning in the hemodialysis unit receiving her treatment. She denies any acute complaints. Her dialysis has been uneventful. She underwent another left foot incision and drainage with wound closure yesterday. She is being transfused 1 unit of blood with her treatment today. PHYSICAL EXAMINATION: Temperature 97.8, pulse 76, respiratory rate 16, blood pressure 161/90, saturating 93 percent on room air. Intake yesterday was not fully recorded. Dialysis today is removing 3.5 liters. General: Patient is seen awake, alert, oriented receiving her treatment in no apparent distress. HEENT: Extraocular muscles are intact. Tongue is moist. Neck: Supple. Chest: There is a tunneled hemodialysis catheter in the left chest wall that is in use. Heart: Sounds are regular S1 and S2. There is 1+ edema in the right lower extremity and there are wraps and dressings on the left lower extremity and foot. Lungs: Clear to auscultation bilaterally, no crackles or rales. She is comfortable on room air. Abdomen: Soft and nontender. Extremities: Show dressings on her left foot and calf and 1+ edema on the right lower extremity. There is a non-functional arterial venous access in the right arm. Neurologic: She is oriented times 3, interactive and at baseline mentation. LABORATORY DATA: Today's labs show white count 12.9, hemoglobin 8, platelets 893. Sodium 136, potassium 3.9, bicarbonate 28, magnesium 1.9. CRP is down from 13.2 to 9.5. Blood cultures from December 13 show no growth times 24 hours for 2 sets. RADIOLOGY STUDIES: Chest x-ray yesterday shows no acute cardiopulmonary process. INPATIENT MEDICATIONS: Reviewed by myself. Her Reglan was discontinued. Her remainder of medications are unchanged as compared to yesterday. PROBLEMS/PLAN: 1. End-stage renal disease: On hemodialysis on a Thursday, Thursday, Thursday schedule. She was dialyzed today with 3.5 liters of fluid to be removed. She has some peripheral edema. Her electrolytes are otherwise acceptable. She is being transfused 1 unit of packed red blood cells with dialysis today. Cultures from her dialysis catheter show no growth. 2. Anemia related to end-stage kidney failure and chronic inflammatory state: Her last ferritin was more than 1200. She is not suitable for I.V. iron. She has significant thrombocytosis possibly related to anemia or infection. She is getting 1 unit of blood with her treatment today and she continues on Aranesp as well. 3. Osteomyelitis of the left foot with Enterococcus faecalis and E. coli in the wound culture: She went to the OR yesterday for another incision and drainage, antibiotic bead placement and wound closure. She has been now fever free the past 24 hours. Her repeat blood cultures show no growth that were drawn on December 13 and her chest x-ray was negative as well. Infectious disease is following. She is on vancomycin and ertapenem. 4. Hypertension: No changes are being made. Her blood pressures are acceptable. She is tolerating fluid removal well with dialysis. 5. Thrombocytosis possibly reactive or related to anemia: Defer need for hematology consult to the Hospitalist Service. Patient was started on low dose aspirin a few days ago and I am also transfusing 1 unit of blood with her treatment today. 6. Protein calorie malnutrition, albumin of 1.6 in the setting of a wound: Encourage for protein intake.
== END 2020-12-17 16:45 | disposition home health service (06) | DRG 853 ==
LOC: M ED 21:28 → M ED INP 12-01 02:29 → EEVIPCON 12-01 02:29 → M MSPAV 12-01 04:02 → M PCU 12-01 14:42 → M MS5PR 12-12 18:08
PROVIDERS: ADMIT Internal Medicine; ATTEND Internal Medicine
PROC: 02HV33Z Insertion of Infusion Device into Superior Vena Cava, Percutaneous Approach (ICD-10-PCS; 2020-12-01)
PROC: 30233N1 Transfusion of Nonautologous Red Blood Cells into Peripheral Vein, Percutaneous Approach (ICD-10-PCS; 2020-12-01)
PROC: 0QBN0ZZ Excision of Right Metatarsal, Open Approach (ICD-10-PCS; 2020-12-02)
PROC: 0QBP0ZZ Excision of Left Metatarsal, Open Approach (ICD-10-PCS; 2020-12-02)
PROC: 5A1D70Z Performance of Urinary Filtration, Intermittent, Less than 6 Hours Per Day (ICD-10-PCS; 2020-12-03)
PROC: 0QBP0ZX Excision of Left Metatarsal, Open Approach, Diagnostic (ICD-10-PCS; 2020-12-09)
PROC: 0JBR0ZZ Excision of Left Foot Subcutaneous Tissue and Fascia, Open Approach (ICD-10-PCS; principal; 2020-12-09 08:00)
PROC: 02HV33Z Insertion of Infusion Device into Superior Vena Cava, Percutaneous Approach (ICD-10-PCS; 2020-12-12)
PROC: 0QBR0ZZ Excision of Left Toe Phalanx, Open Approach (ICD-10-PCS; 2020-12-13)
DX: A41.9 Sepsis, unspecified organism (principal); N18.6 End stage renal disease; E10.52 Type 1 diabetes mellitus with diabetic peripheral angiopathy with gangrene; L97.528 Non-pressure chronic ulcer of other part of left foot with other specified severity; M86.172 Other acute osteomyelitis, left ankle and foot; A04.72 Enterocolitis due to Clostridium difficile, not specified as recurrent; I13.11 Hypertensive heart and chronic kidney disease without heart failure, with stage 5 chronic kidney disease, or end stage renal disease; L03.116 Cellulitis of left lower limb; E87.1 Hypo-osmolality and hyponatremia; E46 Unspecified protein-calorie malnutrition; E10.69 Type 1 diabetes mellitus with other specified complication; E10.22 Type 1 diabetes mellitus with diabetic chronic kidney disease; E10.42 Type 1 diabetes mellitus with diabetic polyneuropathy; E10.621 Type 1 diabetes mellitus with foot ulcer; I27.20 Pulmonary hypertension, unspecified; D47.3 Essential (hemorrhagic) thrombocythemia; E10.3599 Type 1 diabetes mellitus with proliferative diabetic retinopathy without macular edema, unspecified eye; B96.20 Unspecified Escherichia coli [E. coli] as the cause of diseases classified elsewhere; I15.0 Renovascular hypertension; B95.2 Enterococcus as the cause of diseases classified elsewhere; L97.519 Non-pressure chronic ulcer of other part of right foot with unspecified severity; D63.1 Anemia in chronic kidney disease; Z79.4 Long term (current) use of insulin; Z79.899 Other long term (current) drug therapy; Z88.5 Allergy status to narcotic agent; Z99.2 Dependence on renal dialysis; Z88.8 Allergy status to other drugs, medicaments and biological substances; Z91.040 Latex allergy status; Z91.010 Allergy to peanuts; Z91.048 Other nonmedicinal substance allergy status; Z91.14 Patient's other noncompliance with medication regimen; Z20.822 Contact with and (suspected) exposure to COVID-19

== ENCOUNTER 2021-01-04 11:58 | Inpatient (IN) | payer MEDICARE, MEDICAID ==
[~2021-01-04] VITALS: Ht 175.3 cm; Wt 92.1 kg
[2021-01-04] MEDS: ASPIRIN 81MG ENTERIC TABLET PO SCH (09:00)
[~2021-01-04 11:58] MED LIST changes: +ASPI-569 PO; +FURO80TA2 PO; +HYDR-3910 PO; +HYDR50TA PO; +INSUH10VL SC; +LEVO500T3 PO; +PERCOCET PO; +RISATAB3 PO; +VANC125C3 PO; +VITAMIN D 50,000 UNITS CAPSULE (ERGOCALCIFEROL 1.25MG) PO SCH
[2021-01-04] MEDS ORDERED: NS 1,000 ML IV ONE (12:05)
[2021-01-04 12:31] LABS: BASO # 0.1 10^3/uL (0.0-0.2); BASO % 0.3 % (0.0-1.0); EOS # 0.2 10^3/uL (0.0-0.5); EOS % 1.4 % (0.0-3.0); HEMATOCRIT 26.2 % (36.0-47.0); HEMOGLOBIN 8.6 g/dl (12.0-15.5); LYMPH # 1.4 10^3/uL (1.5-5.0); LYMPH % 8.3 % (24.0-44.0); MEAN CORPUSCULAR HEMOGLOBIN 28.9 pg (27.0-33.0); MEAN CORPUSCULAR HGB CONC 32.8 g/dl (32.0-36.5); MEAN CORPUSCULAR VOLUME 87.9 fl (80.0-96.0); MONO # 0.7 10^3/uL (0.0-0.8); MONO % 3.8 % (2.0-8.0); NEUTROPHILS # 14.7 10^3/uL (1.5-8.5); RED BLOOD COUNT 2.98 10^6/uL (4.00-5.40); WHITE BLOOD COUNT 17.3 10^3/uL (4.0-10.0)
[2021-01-04 12:40] LABS: VENOUS BASE EXCESS 0.8 (-2.0-2.0); VENOUS HCO3 24.1 MEQ/L (23.0-27.0); VENOUS O2 SATURATION 81.4 % (60.0-80.0); VENOUS PARTIAL PRESSURE CO2 33.4 mmHg (38.0-50.0); VENOUS PH 7.476 UNITS (7.330-7.430); VENOUS STANDARD HCO3 24.9 MEQ/L; VENOUS TOTAL CO2 25.1 MEQ/L (24.0-28.0)
[2021-01-04] MEDS ORDERED: hydrALAZINE 20MG/ML 1ML VIAL (J0360 PER 20MG) IV STA (12:48)
[2021-01-04 12:51] LABS: PLATELET COUNT, AUTOMATED 571 10^3/uL (150-450)
[2021-01-04] MEDS ORDERED: ONDANSETRON 4MG/2ML VIAL IV ONE (12:55)
[2021-01-04 13:26] LABS: HCG, SERUM QUALITATIVE NEGATIVE (NEGATIVE)
[2021-01-04 13:35] LABS: ACETONE/KETONE 10.95 MG/DL (<2.81); ALBUMIN 2.6 GM/DL (3.2-5.2); BILIRUBIN,DIRECT 2.5 MG/DL (0.0-0.2); BILIRUBIN,TOTAL 3.1 MG/DL (0.2-1.0); TOTAL PROTEIN 7.7 GM/DL (6.4-8.2)
[2021-01-04 13:36] LABS: BLOOD UREA NITROGEN 40 MG/DL (7-18); CALCIUM LEVEL 9.3 MG/DL (8.5-10.1); CARBON DIOXIDE LEVEL 25 MEQ/L (21-32); CHLORIDE LEVEL 87 MEQ/L (98-107); CREATININE FOR GFR 5.16 MG/DL (0.55-1.30); GLOMERULAR FILTRATION RATE 12.4 (>60); POTASSIUM SERUM 5.6 MEQ/L (3.5-5.1); SODIUM LEVEL 124 MEQ/L (136-145)
[2021-01-04] MEDS ORDERED: BASA100I SC (14:04)
[2021-01-04] MEDS ORDERED: LEVO500T3 PO (14:04)
[2021-01-04] MEDS ORDERED: HYDR-3911 PO (14:04)
[2021-01-04] MEDS ORDERED: VANC125C3 PO (14:04)
[2021-01-04] MEDS ORDERED: RISATAB3 PO (14:04)
[2021-01-04] MEDS ORDERED: AMLO1TAB25 PO (14:04)
[2021-01-04] MEDS ORDERED: ASPI81TA26 PO (14:04)
[2021-01-04] MEDS ORDERED: HumuLIN R (REGULAR) INSULIN (NovoLIN R) **100U/ML** PER UNIT IV ONE ×2 (14:10→16:00)
[2021-01-04 14:36] LABS: HEMOGLOBIN A1c 10.3 %
--- NOTE | 2021-01-04 14:37 | REP ---
INDICATION: abd pain COMPARISON: 12/08/2020 TECHNIQUE: Axial noncontrast images from the lung bases to the pubic symphysis with coronal and sagittal reformations. This CT examination was performed using the following dose reduction techniques: Automated exposure control, adjustment of mA and/or kv according to the patient's size, and use of iterative reconstruction technique. FINDINGS: Examination is significantly limited due to technical factors the body habitus and poor contrast. Lung bases demonstrate considerable pulmonary edema. Visualized heart and pericardium are normal. Significant diffuse anasarca/soft tissue edema noted throughout the abdomen and pelvis. Small to moderate amount of ascites extends into the pelvis. Hepatomegaly. Spleen, pancreas, gallbladder, bilateral adrenal glands and kidneys are grossly normal. The enteric system is without obstruction. Normal appendix identified in the right lower quadrant. No free air identified to suggest perforation. Pelvis demonstrates normal bladder and age-appropriate uterus/adnexa. Abdominal aorta without aneurysm. Osseous structures are intact. IMPRESSION: 1. Abnormal fluid changes as described above compatible with fluid imbalance. Correlation is recommended to exclude cirrhosis or end-stage renal disease as the cause. 2. Stable hepatomegaly. <Electronically signed by Guy Garcia > 01/04/21 [id number]
[2021-01-04] MEDS ORDERED: LABETALOL 100MG/20ML VIAL IV STA (14:53)
[2021-01-04] MEDS ORDERED: KCL 20MEQ IN 100ML SWI (KRUN) 20 MEQ in IV 1 EA IV ONE ×2 (15:25)
[2021-01-04] MEDS ORDERED: ACETAMINOPHEN TAB 650MG DOSE (2X325MG) PO PRN (15:25)
[2021-01-04] MEDS ORDERED: LEVEMIR (INSULIN DETEMIR) 1 UNITS/0.01ML SC SCH (15:25)
[2021-01-04] MEDS ORDERED: DEXTROSE 50% 50 ML SYRINGE IV PRN (15:35)
[2021-01-04] MEDS ORDERED: GLUCOSE 4GM CHEW TABLET PO PRN (15:35)
[2021-01-04] MEDS ORDERED: GLUCAGON INJ 1MG VIAL SC PRN (15:35)
[2021-01-04] MEDS ORDERED: LEVEMIR (INSULIN DETEMIR) 1 UNITS/0.01ML SC ONE (16:00)
[2021-01-04] MEDS ORDERED: POTASSIUM CHL PWD 20 MEQ PACKET PO ONE (16:00)
[2021-01-04] MEDS ORDERED: LEVO250T12 PO (16:05)
--- NOTE | 2021-01-04 16:45 | HPEPDOC ---
General Date of Admission Jan 04, 2021 at 15:22 Date of Service: Jan 04, 2021 Chief Complaint The patient is a 35-year-old female admitted with a reason for visit of High Glucose/Cp/Diff Breathing. Source: Patient Exam Limitations: Clinical conditions Timing/Duration: 24 hours Severity: Severe History of Present Illness Patient is 55 years old female with past medical history of type 1 diabetes, end-stage renal diseases on dialysis, hypertension, anemia of chronic diseases, diabetic nephropathy, feet osteomyelitis presented to the hospital with nausea, vomiting, abdominal pain. Patient stated that she missed dialysis today in the morning because of multiple episodes of vomiting since yesterday evening. Also patient complains of diarrhea, since leaving she had been having 5 episodes of watery stool. Of note, patient was recently diagnosed with C. difficile infection, she received treatment with vancomycin by mouth in the outpatient settings. Also patient had recent surgical intervention, Dr. Rodriguez did to surgical amputation of 5th metatarsal bilaterally due to osteomyelitis. Dr. Krishnamurthy recommended to continue levofloxacin for 4 weeks after discharge and continue vancomycin by mouth for next 4 weeks after discharge on 12/08/20. In ED patient was found to have elevated blood pressure of 220/116. Labs pertinent for leukocytosis of 17.3, hemoglobin 8.6, potassium 5.6, glucose level 670, creatini ne 5.1. CT abdomen showed pulmonary edema and diffuse anasarca/soft tissue edema noted throughout the abdomen and pelvis. Home Medications Scheduled Amlodipine Besylate (Amlodipine Besylate) 10 Mg Tablet, 10 MG PO DAILY, (Reported) Aspirin (Aspirin EC) 81 Mg Tablet.dr, 81 MG PO DAILY, (Reported) Ergocalciferol (Vitamin D2) (Vitamin D2) 50,000 Units Cap, 1 CAP PO QWEEK, (Reported) THURSDAY Furosemide (Furosemide) 80 Mg Tablet, 80 MG PO BID, (Reported) Hydralazine HCl (Hydralazine HCl) 50 Mg Tablet, 50 MG PO BID, (Reported) Insulin Glargine,Hum.rec.anlog (Basaglar Kwikpen U-100) 100 Unit/1 Ml Insuln.pen, 5 UNIT SC QHS, (Reported) Insulin Human Lispro (Novolog) 100 Unit/1 Ml Vial, 1 DOSE SC AC, (Reported) PER SLIDING SCALE L.acidoph/L.bulg/B.bif/S.therm (Tonja-Bid Caplet) 1 Each Tablet, 1 TAB PO BIDWM, (Reported) Levofloxacin (Levofloxacin) 250 Mg Tablet, 250 MG PO DAILY, (Reported) Metoprolol Tartrate (Metoprolol Tartrate) 100 Mg Tablet, 100 MG PO BID, (Reported) Nifedipine (Nifedipine ER) 90 Mg Tablet.er, 90 MG PO DAILY, (Reported) Sevelamer Carbonate (Sevelamer Carbonate) 800 Mg Tablet, 800 MG PO BID, (Reported) with a snack Sevelamer Carbonate (Sevelamer Carbonate) 800 Mg Tablet, 1,600 MG PO TID, (Reported) WITH MEALS Vancomycin Hcl (Vancomycin HCl) 125 Mg Capsule, 125 MG PO QID, (Reported) Allergies Coded Allergies: cinacalcet (Verified Allergy, Unknown, 11/25/20) latex (Verified Allergy, Unknown, 11/03/19) morphine (Verified Allergy, Unknown, 11/03/19) peanut (Verified Allergy, Unknown, 11/25/20) TAPE (Verified Adverse Reaction, Intermediate, IRRITATES SKIN, 11/03/19) USE PAPER TAPE ONL;Y Past Medical History Medical History ESRD HD TTS / Right Arm Fistula / Permacath IDDM1 with neuropathy, proliferative retinopathy s/p photocoagulation & hx of DKA Pulm HTN PASP (30-40) Trace MVR Trace AVR Trace TVR Unspecified Brain Surgery for cyst Caesarean Section Bilateral fifth osteomyelitis C. difficile diarrhea Thrombocytosis Hypertension Surgical History 1. Arteriovenous (AV) fistula. 2. Right internal jugular (IJ) tunneled hemodialysis catheter placement. 3. (C) section. Family History Mother history of type 2 diabetes , father COPD and hypertension, brother with epilepsy Social History * Smoker: Denies Alcohol: Denies Drugs: denies A-FIB/CHADSVASC A-FIB History Current/History of A-Fib/PAF?: No Current PO Anticoag Therapy: No Review of Systems Constitutional: Denies: Chills, Fever Eyes: Denies: Pain ENT: Denies: Head Aches Skin: Denies: Rash, Lesions Cardiovascular: Denies: Chest Pain Gastrointestinal: Reports: Nausea, Vomiting, Abdominal Pain, Diarrhea Genitourinary: Denies: Frequency Hematologic: Denies: Bruising Endocrine: Reports: Polydipsia Musculoskeletal: Denies: Neck Pain Neurological: Denies: Weakness Psych: Reports: Anxiety Physical Examination General Exam: Positive: Alert, Cooperative, Moderate Distress Eye Exam: Positive: PERRLA ENT Exam: Positive: Atraumatic Neck Exam: Positive: Supple, JVD Chest Exam: Positive: Diminished Heart Exam: Positive: Rate Normal Telemetry: Positive: No significant arrhythmia Abdomen Exam: Positive: BS Hypoactive, Tenderness (no rebound, mild tenderness on palpation) Extremity Exam: Positive: Swelling, Other (dressing over left foot); Negative: Clubbing, Cyanosis Skin Exam: Positive: Nl turgor and temperature Neuro Exam: Positive: Cranial Nerves 3-12 NL Psych Exam: Positive: Anxiety, Oriented x 3 Vital Signs Vital Signs Date Time Temp Pulse Resp B/P (MAP) Pulse Ox O2 Delivery O2 Flow Rate FiO2 01/04/21 15:15 94 16 208/107 (140) 94 01/04/21 12:02 98.3 Nasal Cannula 2.0 Laboratory Data Labs 24H Laboratory Tests 2 01/04/21 12:05: Immature Granulocyte % (Auto) 1.2, Neutrophils (%) (Auto) 85.0H, Lymphocytes (%) (Auto) 8.3L, Monocytes (%) (Auto) 3.8, Eosinophils (%) (Auto) 1.4, Basophils (%) (Auto) 0.3, Neutrophils # (Auto) 14.7H, Lymphocytes # (Auto) 1.4L, Monocytes # (Auto) 0.7, Eosinophils # (Auto) 0.2, Basophils # (Auto) 0.1, Nucleated Red Blood Cells % (auto) 0.0, Osmolality 324H, Total Bilirubin 3.1H, Direct Bilirubin 2.5H, Aspartate Amino Transf (AST/SGOT) 52H, Alanine Aminotransferase (ALT/SGPT) 38, Alkaline Phosphatase 1047H, Total Protein 7.7, Albumin 2.6L, Albumin/Globulin Ratio 0.5L, Lipase 388, B-Hydroxybutyrate 10.95H 01/04/21 12:15: Bedside Glucose (Misc Panel) > 600*H 01/04/21 12:24: Blood Gas Bicarbonate Standard 24.9, Venous Blood pH 7.476H, Venous Blood Partial Pressure CO2 33.4L, Venous Blood Partial Pressure O2 48.0, Venous Blood Total Carbon Dioxide 25.1, Venous Blood HCO3 24.1, Venous Blood Oxygen Saturation 81.4H, Venous Blood Base Excess 0.8 01/04/21 12:25: Estimated Mean Plasma Glucose 249H, Hemoglobin A1c 10.3 01/04/21 12:36: Anion Gap 12, Glomerular Filtration Rate 12.4L, Calcium Level 9.3, Human Chorionic Gonadotropin, Qual NEGATIVE 01/04/21 14:01: Bedside Glucose (Misc Panel) > 600*H 01/04/21 15:08: Bedside Glucose (Misc Panel) 515*H CBC/BMP Laboratory Tests 01/04/21 12:05 01/04/21 12:36 Microbiology Microbiology 01/04/21 Blood Culture, Received Pending 01/04/21 Blood Culture, Received Pending Assessment/Plan Patient is 55 years old female with past medical history of type 1 diabetes, end-stage renal diseases on dialysis, hypertension, anemia of chronic diseases, diabetic nephropathy, feet osteomyelitis presented to the hospital with nausea, vomiting, abdominal pain. Patient stated that she missed dialysis today in the morning because of multiple episodes of vomiting since yesterday evening. Also patient complains of diarrhea, since leaving she had been having 5 episodes of watery stool. Of note, patient was recently diagnosed with C. difficile infection, she received treatment with vancomycin by mouth in the outpatient settings. Also patient had recent surgical intervention, Dr. Rodriguez did to surgical amputation of 5th metatarsal bilaterally due to osteomyelitis. Dr. Krishnamurthy recommended to continue levofloxacin for 3 weeks after discharge and continue vancomycin by mouth for next 4 weeks after discharge on 12/08/20. In ED patient was found to have elevated blood pressure of 220/116. Labs pertinent for leukocytosis of 17.3, hemoglobin 8.6, potassium 5.6, glucose level 670, creatinine 5.1. CT abdomen showed pulmonary edema and diffuse anasarca/soft tissue edema noted throughout the abdomen and pelvis. Problems (1) ESRD (end stage renal disease) Status: Chronic Problem Text: Patient missed dialysis in the morning On physical exam patient has severe volume overload, plus JVD, +2 leg swelling, orthopnea Nephrology team on board Dialysis today (2) Diabetes mellitus, insulin dependent (IDDM), uncontrolled Status: Chronic Problem Text: Poorly controlled diabetes Last HbA1c around 10 Patient noncompliant to her diabetes treatment Detemir twice a day Diabetes diet Insulin sliding scale We'll check BMP every 4 hours Patient received 10 units IV insulin ER and 20 units of detemir subcutaneously (3) Hyperglycemia Status: Acute Problem Text: Secondary to noncompliance We will check blood glucose level every hour Anion gap with in normal limit Continue to monitor BMP every 4 hours (4) Vomiting Status: Acute Problem Text: Most likely secondary to uremia superimposed with hypertensive urgency Zofran IV (5) Diabetic foot ulcer with osteomyelitis Status: Chronic Problem Text: Patient completed the course of levofloxacin However patient has leukocytosis and there is question for compliance to medication We will check blood culture and procalcitonin (6) Hypertensive urgency Status: Acute Problem Text: Most likely secondary to volume overload due to missed dialysis Dialysis today Hydralazine IV when necessary with parameters Continue amlodipine and I increased the dose of hydralazine to 100 BID (7) Noncompliance with medication regimen Status: Chronic 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 difficile infection Patient chronically noncompliant to medical treatment in the outpatient settings I discussed it with Dr. Krishnamurthy , she recommended to check C diff and if its positive to start Fidaxomicin (11) History of osteomyelitis Status: Resolved Problem Text: Patient completed the course of Levaquin On visual inspection area of amputation of left foot well-healed. Patient has stage 3 plantar wound of the left foot with minimal pus without surrounding erythema We'll check sedimentation rate, CRP Plan / VTE VTE Prophylaxis Ordered?: Yes SARTHAK SILVA DO Jan 04, 2021 16:45
[2021-01-04] MEDS: FUROSEMIDE 80 MG TAB PO SCH (17:00)
[2021-01-04] MEDS: HumaLOG INSULIN (NovoLOG) PER UNIT SC SCH (17:30)
[2021-01-04 17:58] LABS: RSV AMPLIFICATION NEGATIVE (NEGATIVE)
[2021-01-04] MEDS: (RENVELA) SEVELAMER **CARBONate** 800 MG TAB PO SCH (18:00)
[2021-01-04] MEDS ORDERED: VANCOMYCIN ORAL SOL 250MG/5ML ORAL SYRINGE PO SCH (18:00)
[2021-01-04] MEDS ORDERED: LevoFLOXacin 250 MG TABLET PO SCH (18:00)
[2021-01-04] MEDS ORDERED: LevoFLOXacin 500 MG TABLET PO SCH (18:00)
--- NOTE | 2021-01-04 20:13 | ECGEPIP ---
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
[2021-01-04] MEDS ORDERED: **hydrALAZINE** 50 MG TAB PO SCH (21:00)
[2021-01-04] MEDS ORDERED: (RENVELA) SEVELAMER **CARBONate** 800 MG TAB PO PRN (21:00)
[2021-01-04 21:28] VITALS: BP 219/107
[2021-01-04] MEDS: HEPARIN SOD (PORCINE) 5000UNITS/ML 1ML VIAL/SYRINGE SC SCH (21:30)
[2021-01-04] MEDS: ONDANSETRON 4MG/2ML VIAL IV SCH (21:31)
[2021-01-04] MEDS: METOPROLOL TARTRATE 100 MG TAB PO SCH (21:31)
[2021-01-04] MEDS: **hydrALAZINE** 50 MG TAB PO SCH (21:31)
[2021-01-05] VITALS (25 sets, daily range): BP systolic 145–226; BP diastolic 71–119
[2021-01-05 00:03] LABS: CALCIUM LEVEL 8.4 MG/DL (8.5-10.1); CREATININE FOR GFR 3.37 MG/DL (0.55-1.30); GLOMERULAR FILTRATION RATE 20.3 (>60); PHOSPHORUS LEVEL 3.4 MG/DL (2.5-4.9)
[2021-01-05] MEDS: hydrALAZINE 20MG/ML 1ML VIAL (J0360 PER 20MG) IV PRN ×2 (01:04→17:53)
[2021-01-05] MEDS: HumaLOG INSULIN (NovoLOG) PER UNIT SC SCH ×5 (01:05→21:00)
[2021-01-05] MEDS: ONDANSETRON 4MG/2ML VIAL IV SCH ×4 (02:00→20:00)
[2021-01-05 03:30] LABS: HEMATOCRIT 21.8 % (36.0-47.0); MEAN CORPUSCULAR HEMOGLOBIN 28.4 pg (27.0-33.0); MEAN CORPUSCULAR HGB CONC 31.7 g/dl (32.0-36.5); MEAN CORPUSCULAR VOLUME 89.7 fl (80.0-96.0); PLATELET COUNT, AUTOMATED 518 10^3/uL (150-450); RED BLOOD COUNT 2.43 10^6/uL (4.00-5.40); WHITE BLOOD COUNT 12.8 10^3/uL (4.0-10.0)
[2021-01-05 03:38] LABS: HEMOGLOBIN 6.9 g/dl (12.0-15.5)
[2021-01-05 04:09] LABS: ALBUMIN 2.1 GM/DL (3.2-5.2); BILIRUBIN,TOTAL 2.3 MG/DL (0.2-1.0); CALCIUM LEVEL 8.5 MG/DL (8.5-10.1); CREATININE FOR GFR 3.62 MG/DL (0.55-1.30); GLOMERULAR FILTRATION RATE 18.7 (>60); PHOSPHORUS LEVEL 3.6 MG/DL (2.5-4.9); TOTAL PROTEIN 6.4 GM/DL (6.4-8.2)
[2021-01-05 05:32] LABS: CALCIUM LEVEL 8.4 MG/DL (8.5-10.1); CREATININE FOR GFR 3.67 MG/DL (0.55-1.30); GLOMERULAR FILTRATION RATE 18.4 (>60); PHOSPHORUS LEVEL 3.7 MG/DL (2.5-4.9); POTASSIUM SERUM 4.2 MEQ/L (3.5-5.1)
[2021-01-05] MEDS: **hydrALAZINE** 50 MG TAB PO SCH ×2 (08:29→21:27)
[2021-01-05] MEDS: HEPARIN SOD (PORCINE) 5000UNITS/ML 1ML VIAL/SYRINGE SC SCH ×2 (08:29→21:26)
[2021-01-05] MEDS: LEVEMIR (INSULIN DETEMIR) 1 UNITS/0.01ML SC SCH ×2 (08:30→21:27)
[2021-01-05] MEDS: (RENVELA) SEVELAMER **CARBONate** 800 MG TAB PO SCH ×3 (08:30→17:16)
[2021-01-05] MEDS: ASPIRIN 81MG ENTERIC TABLET PO SCH (08:31)
[2021-01-05] MEDS: FUROSEMIDE 80 MG TAB PO SCH ×2 (08:31→17:16)
[2021-01-05] MEDS: METOPROLOL TARTRATE 100 MG TAB PO SCH ×2 (08:32→21:27)
--- NOTE | 2021-01-05 11:00 | IPNPDOC ---
Text Note Date of Service The patient was seen on 01/05/21. NOTE Subjective: No any acute events overnight. Patient stated that she has intermi ttent dry cough, denied fever or chills. Patient stated that today he resolved Objective: GENERAL APPEARANCE: NAD HEENT: no scleral icterus, plus JVD, EOMI CARDIOVASCULAR: S1S2 LUNGS: diminished lung sounds b/l ABDOMEN: soft & not tender w palpitation MUSCULOSKELETAL: +1 nonpitting edema, On visual inspection area of amputation of left foot well-healed. Patient has stage 3 plantar wound of the left foot with minimal pus without surrounding erythema INTEGUMENT: no generalized pallor NEUROLOGICAL: cranial nerve function from 2-12 intact intact, follows commands, speech not dysarthric Assessment/Plan Patient is 35 years old female with past medical history of type 1 diabetes, end-stage renal diseases on dialysis, hypertension, anemia of chronic diseases, diabetic nephropathy, feet osteomyelitis presented to the hospital with nausea, vomiting, abdominal pain. Patient stated that she missed dialysis today in the morning because of multiple episodes of vomiting since yesterday evening. Also patient complains of diarrhea, since leaving she had been having 5 episodes of watery stool. Of note, patient was recently diagnosed with C. difficile infection, she received treatment with vancomycin by mouth in the outpatient settings. Also patient had recent surgical intervention, Dr. Rodriguez did to surgical amputation of 5th metatarsal bilaterally due to osteomyelitis. Dr. Krishnamurthy recommended to continue levofloxacin for 3 weeks after discharge and continue vancomycin by mouth for next 4 weeks after discharge on 12/08/20. In ED patient was found to have elevated blood pressure of 220/116. Labs pertinent for leukocytosis of 17.3, hemoglobin 8.6, potassium 5.6, glucose level 670, creatinine 5.1. CT abdomen showed pulmonary edema and diffuse anasarca/soft tissue edema noted throughout the abdomen and pelvis. Problems (1) ESRD (end stage renal disease) Nephrology team on board Patient had dialysis yesterday (2) Diabetes mellitus, insulin dependent (IDDM), uncontrolled Poorly controlled diabetes Last HbA1c around 10 Patient noncompliant to her diabetes treatment Detemir twice a day Diabetes diet Insulin sliding scale (3) Hyperglycemia Secondary to noncompliance Improved (4) Vomiting Most likely secondary to uremia superimposed with hypertensive urgency Zofran IV (5) Diabetic foot ulcer with osteomyelitis Patient completed the course of levofloxacin Leukocytosis improved today. On visual inspection area of amputation of left foot well-healed. Patient has stage 3 plantar wound of the left foot with minimal pus without surrounding erythema blood culture pending, await procalcitonin (6) Hypertensive urgency Most likely secondary to volume overload due to previous noncompliance with dialysis Patient had hypertensive urgency in the morning Hydralazine IV when necessary with parameters Continue amlodipine and I increased the dose of hydralazine to 100 BID Will discuss with Dr. Bates dialysis today. 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 difficile infection Patient chronically noncompliant to medical treatment in the outpatient settings I discussed it with Dr. Krishnamurthy , she recommended to check C diff and if its positive to start Fidaxomicin. Today patient does not have diarrhea, leukocytosis improved (11) History of osteomyelitis Patient completed the course of Levaquin On visual inspection area of amputation of left foot well-healed. Patient has stage 3 plantar wound of the left foot with minimal pus without surrounding erythema await sedimentation rate, CRP 12 Anemia Most likely due to ESRD Patient received 2 units of blood H&H every 6 hours Elevated bilirubin Most likely secondary to congested liver CT showed. Abnormal fluid changes compatible with fluid imbalance. Stable hepatomegaly. Right upper quadrant ultrasound VS,Fishbone, I+O VS, Fishbone, I+O Laboratory Tests 01/04/21 12:05 01/04/21 12:36 01/04/21 23:28 01/05/21 03:25 01/05/21 04:48 Vital Signs Date Time Temp Pulse Resp B/P (MAP) Pulse Ox O2 Delivery O2 Flow Rate FiO2 01/05/21 08:32 83 209/101 01/05/21 08:00 2.0 01/05/21 04:00 98.7 18 98 Nasal Cannula I&O- Last 24 Hours up to 6 AM 01/05/21 06:00 Intake Total 1450 ml Output Total 3500 ml Balance -2050 ml SARTHAK SILVA DO Jan 05, 2021 11:00
[2021-01-05 11:32] LABS: CLOSTRIDIUM DIFFICILE PCR NEGATIVE (NEGATIVE)
[2021-01-05 13:01] LABS: HEMATOCRIT 24.3 % (36.0-47.0); HEMOGLOBIN 7.7 g/dl (12.0-15.5)
--- NOTE | 2021-01-05 13:34 | IPN ---
NEPHROLOGY PROGRESS NOTE DATE: 01/05/2021 SUBJECTIVE: Ms. Mireles is seen this morning on her bedside. She is still not feeling well and reports loose stools and also feels short of breath. She denies any vomiting and did have breakfast this morning. She has no fever or chills. She was dialyzed yesterday as she was admitted with shortness of breath and hypertensive urgency. Her blood pressure has improved since she was dialyzed and 3.5 liters of fluid was removed. PHYSICAL EXAMINATION: Temperature 98.8 degrees Fahrenheit, heart rate 76 per minute and respiratory rate 19 per minute. Blood pressure 181/93 mmHg and oxygen saturation 94% on 2 liters of oxygen. Head: Atraumatic. Neck: Supple and JVD is moderately elevated. She has a dialysis catheter in the right internal jugular vein. Heart: Sounds are regular with systolic murmur grade 2/6. Lungs: With a few basilar rales. Abdomen: Soft with mild tenderness in the right upper quadrant and bowel sounds are present. Extremities: Without any cyanosis or clubbing. Her left foot is wrapped in dressing. She has edema on both legs. Neurologically: She is awake and without any focal deficits. LABORATORY DATA: Today's labs show sodium level 135, potassium 4.2, CO2 28, BUN 23, creatinine 3.67, glucose 66 and calcium 8.4. C-reactive protein is 7.86. Hemoglobin 6.9, hematocrit 21.8, WBC count 12.8 and platelets 518. PROBLEMS/PLAN: 1. Shortness of breath due to volume overload: She is still short of breath and requiring oxygen. She still has edema and elevated neck veins. We will dialyze her again today and try to remove another 3.5 liters of fluid. 2. Uncontrolled hypertension: Her blood pressure control remains poor and likely to improve with further fluid removal. All her chronic anti-hypertensive medications should continue. 3. Anemia: She has significant anemia probably related to infected foot and end-stage renal disease. She is also having diarrhea, but denies any rectal bleeding. I would repeat her hemoglobin and hematocrit to confirm and then transfer her 2 units of packed RBCs during dialysis if her hemoglobin is still below 7.5. 4. End-stage renal disease: Patient did miss 1 dialysis treatment as an outpatient. She was dialyzed yesterday and we will be dialyzing her again today. 5. Diabetes: Her diabetes control has been poor as an outpatient now in the hospital her blood sugars are much better and she should continue with insulin coverage.
[2021-01-05] MEDS: LABETALOL 100MG/20ML VIAL IV PRN (17:16)
[2021-01-05] MEDS: guaiFENesin SYRUP 200 MG/10 ML UDC PO PRN (17:53)
[2021-01-06] VITALS (7 sets, daily range): BP systolic 141–191; BP diastolic 79–91
[2021-01-06] MEDS: ONDANSETRON 4MG/2ML VIAL IV SCH ×2 (02:00→08:00)
[2021-01-06] MEDS: LABETALOL 100MG/20ML VIAL IV PRN (04:56)
[2021-01-06 05:51] LABS: BASO # 0.1 10^3/uL (0.0-0.2); BASO % 0.5 % (0.0-1.0); EOS # 0.6 10^3/uL (0.0-0.5); EOS % 5.1 % (0.0-3.0); HEMATOCRIT 25.5 % (36.0-47.0); HEMATOCRIT 26.2 % (36.0-47.0); HEMOGLOBIN 8.2 g/dl (12.0-15.5); HEMOGLOBIN 8.4 g/dl (12.0-15.5); LYMPH # 1.6 10^3/uL (1.5-5.0); LYMPH % 15.1 % (24.0-44.0); MEAN CORPUSCULAR HEMOGLOBIN 29.2 pg (27.0-33.0); MEAN CORPUSCULAR HGB CONC 32.2 g/dl (32.0-36.5); MEAN CORPUSCULAR VOLUME 90.7 fl (80.0-96.0); MONO # 0.6 10^3/uL (0.0-0.8); MONO % 5.6 % (2.0-8.0); NEUTROPHILS # 7.8 10^3/uL (1.5-8.5); NEUTROPHILS % 72.2 % (36.0-66.0); PLATELET COUNT, AUTOMATED 501 10^3/uL (150-450); RED BLOOD COUNT 2.81 10^6/uL (4.00-5.40); WHITE BLOOD COUNT 10.7 10^3/uL (4.0-10.0)
[2021-01-06 06:08] LABS: CALCIUM LEVEL 8.3 MG/DL (8.5-10.1); CREATININE FOR GFR 3.02 MG/DL (0.55-1.30); POTASSIUM SERUM 4.1 MEQ/L (3.5-5.1)
--- NOTE | 2021-01-06 07:16 | REPVR ---
PROCEDURE INFORMATION: Exam: US Abdomen, Limited; Right Upper Quadrant Exam date and time: 01/06/2021 6:34 AM Age: 35 years old Clinical indication: Other: Hepatomegaly, elevated bilirubin; Additional info: Hepatomegaly, elevated billirubin TECHNIQUE: Imaging protocol: US abdomen. Real time ultrasound with image documentation. Limited exam focused on the right upper quadrant. COMPARISON: CT Abdomen without contrast 07/07/2019 12:21 PM FINDINGS: Liver: Hepatomegaly, without focal mass. Gallbladder: Wall thickening in the contracted gallbladder. Technologist reported negative sonographic Claudio sign. Common bile duct: Normal caliber of the common bile duct measuring 4 mm in diameter. Pancreas: Obscuration of the pancreas by bowel gas. Right kidney: Markedly increased renal parenchymal echotexture, consistent with medical renal disease. Right kidney measures 10.4 cm in length. No hydronephrosis. IMPRESSION: 1. Wall thickening in the contracted gallbladder. 2. Markedly increased renal parenchymal echotexture, consistent with medical renal disease. Electronically signed by: Dany Chowdhury On 01/06/2021 07:16:35 AM
[2021-01-06] MEDS: (RENVELA) SEVELAMER **CARBONate** 800 MG TAB PO SCH ×3 (08:00→17:15)
[2021-01-06] MEDS: ASPIRIN 81MG ENTERIC TABLET PO SCH (08:43)
[2021-01-06] MEDS: HumaLOG INSULIN (NovoLOG) PER UNIT SC SCH ×4 (08:43→21:00)
[2021-01-06] MEDS: LEVEMIR (INSULIN DETEMIR) 1 UNITS/0.01ML SC SCH ×2 (08:43→20:54)
[2021-01-06] MEDS: **hydrALAZINE** 50 MG TAB PO SCH ×2 (08:44→20:53)
[2021-01-06] MEDS: METOPROLOL TARTRATE 100 MG TAB PO SCH ×2 (08:44→20:53)
[2021-01-06] MEDS: FUROSEMIDE 80 MG TAB PO SCH ×2 (08:44→17:15)
[2021-01-06] MEDS: HEPARIN SOD (PORCINE) 5000UNITS/ML 1ML VIAL/SYRINGE SC SCH ×2 (08:45→20:54)
[2021-01-06] MEDS ORDERED: DARBEPOETIN 100 MCG/0.5 ML *DIALYSIS* SYRINGE (J0882) IV SCH (09:45)
--- NOTE | 2021-01-06 10:49 | IPNPDOC ---
Text Note Date of Service The patient was seen on 01/06/21. NOTE Subjective: Patient was somnolent in the morning, patient stated that she lost her place to leave and she needs assistance. No any acute events overnight. In the morning systolic blood pressure was elevated up to 200 Objective: GENERAL APPEARANCE: NAD HEENT: no scleral icterus, plus JVD, EOMI CARDIOVASCULAR: S1S2 LUNGS: diminished lung sounds b/l ABDOMEN: soft & not tender w palpitation MUSCULOSKELETAL: +1 nonpitting edema, On visual inspection area of amputation of left foot well-healed. Patient has stage 3 plantar wound of the left foot with minimal pus without surrounding erythema INTEGUMENT: no generalized pallor NEUROLOGICAL: cranial nerve function from 2-12 intact intact, follows commands, speech not dysarthric Assessment/Plan Patient is 35 years old female with past medical history of type 1 diabetes, end-stage renal diseases on dialysis, hypertension, anemia of chronic diseases, diabetic nephropathy, feet osteomyelitis presented to the hospital with nausea, vomiting, abdominal pain. Patient stated that she missed dialysis today in the morning because of multiple episodes of vomiting since yesterday evening. Also patient complains of diarrhea, since leaving she had been having 5 episodes of watery stool. Of note, patient was recently diagnosed with C. difficile infection, she received treatment with vancomycin by mouth in the outpatient settings. Also patient had recent surgical intervention, Dr. Rodriguez did to surgical amputation of 5th metatarsal bilaterally due to osteomyelitis. Dr. Krishnamurthy recommended to continue levofloxacin for 3 weeks after discharge and continue vancomycin by mouth for next 4 weeks after discharge on 12/08/20. In ED patient was found to have elevated blood pressure of 220/116. Labs pertinent for leukocytosis of 17.3, hemoglobin 8.6, potassium 5.6, glucose level 670, creatinine 5.1. CT abdomen showed pulmonary edema and diffuse anasarca/soft tissue edema noted throughout the abdomen and pelvis. Problems (1) ESRD (end stage renal disease) Nephrology team on board Patient had dialysis yesterday (2) Diabetes mellitus, insulin dependent (IDDM), uncontrolled Poorly controlled diabetes Last HbA1c around 10 Patient noncompliant to her diabetes treatment Detemir twice a day Diabetes diet Insulin sliding scale Today glucose level was not optimally controlled, I increased her dose of Detemir to 10 units twice a day (3) Hyperglycemia Secondary to noncompliance (4) Vomiting Resolved Most likely secondary to uremia superimposed with hypertensive urgency Zofran IV (5) Diabetic foot ulcer with osteomyelitis Patient completed the course of levofloxacin Leukocytosis improved today. On visual inspection area of amputation of left foot well-healed. 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 difficile infection Patient chronically noncompliant to medical treatment in the outpatient settings I discussed it with Dr. Krishnamurthy , she recommended to check C diff and if its positive to start Fidaxomicin. C diff. test came back negative (11) History of osteomyelitis Patient completed the course of Levaquin On visual inspection area of amputation of left foot well-healed. Patient has stage 3 plantar wound of the left foot with minimal pus without surrounding erythema CRP 7.8 12 Anemia Most likely due to ESRD Patient received 4 units of blood in total H&H every 6 hours Elevated bilirubin Most likely secondary to congested liver CT showed. Abnormal fluid changes compatible with fluid imbalance. Stable hepatomegaly. Right upper quadrant ultrasound Left foot plantar wound Stage 3 w/o erythema Appreciate/ agree with Wound care consult VS,Kiana, I+O VS, Kiana, I+O Laboratory Tests 01/05/21 11:08 01/06/21 05:32 Vital Signs Date Time Temp Pulse Resp B/P (MAP) Pulse Ox O2 Delivery O2 Flow Rate FiO2 01/06/21 08:44 81 188/83 01/06/21 08:00 99.5 18 93 Room Air 01/06/21 04:00 2.0 I&O- Last 24 Hours up to 6 AM 01/06/21 05:59 Intake Total 2270 ml Output Total 3500 ml Balance -1230 ml SARTHAK SILVA DO Jan 06, 2021 10:49
--- NOTE | 2021-01-06 12:20 | IPN ---
PROGRESS NOTE DATE: 01/06/2021 SUBJECTIVE: Ms. Mireles is seen this morning on her bedside. She is lying in the bed with eyes closed. I woke her up. She has complaint of abdominal pain today and her dyspnea has improved. She was dialyzed yesterday and we were able to remove another 3.5 liters of fluid. So far a total of 7 liters fluid removed since admission. She is not requiring oxygen anymore. Her diarrhea has improved and stool did test negative for C. diff. She reports that she did not have an appetite and did not eat this morning. She did have an abdominal CAT scan done on January 04 which did show some ascites, but no other significant abnormality. An ultrasound of the liver and gallbladder was also unremarkable. PHYSICAL EXAMINATION: VITALS: Temperature 99.5 degrees Fahrenheit, heart rate 82 per minute, respiratory rate 18 per minute, blood pressure 188/83 mmHg and oxygen saturation 93% on room air. HEENT: Head is atraumatic. Neck is supple and JVD minimally elevated. Right internal jugular vein hemodialysis catheter is intact. LUNGS: Sound clear today. HEART: Sounds are regular. ABDOMEN: Soft and mildly tender. Bowel sounds are hypoactive. EXTREMITIES: Without any cyanosis or clubbing. Her left foot is in a dressing. NEUROLOGIC: She is awake and at her baseline mentation, without a focal deficit. LABORATORY DATA: Today's labs showed WBC 10.7, hemoglobin 8.2, hematocrit 25.5, platelets 501,000. Sodium 135, potassium 4.1, CO2 25, BUN 21, creatinine 3.02, glucose 313 and calcium 8.3. PROBLEMS: 1. End-stage renal disease: Patient was dialyzed yesterday again due to volume overload. Her regular dialysis done on Thursday, Thursday and Thursday and we will schedule her next dialysis for tomorrow. 2. Volume overload and shortness of breath: Patient did have volume overload due to noncompliance with dialysis and fluid restriction. We removed a total of 7 liters of fluid so far and her volume status has improved significantly. She will be dialyzed again tomorrow and we will try to remove another 3 liters of fluid. 3. Uncontrolled hypertension: Blood pressure control still suboptimal. It did improve after dialysis yesterday and is high again today. Probably related to abdominal pain. At this point, I would recommend to continue with all her antihypertensive medications. 4. Diabetes: Blood sugars are still somewhat high, but much improved. He remains on insulin coverage. 5. Abdominal pain: Etiology is uncertain. She did have anasarca on the CAT scan and some ascites. She is afebrile and CAT scan was unremarkable otherwise. We will continue to watch her at present. If her symptoms do not improve, then probably a diagnostic paracentesis could be considered. 6. Anemia: She received 2 units of packed RBC's yesterday and anemia has slightly improved. We will treat her with Aranesp with dialysis once a week.
[2021-01-06] MEDS ORDERED: ONDANSETRON 4MG/2ML VIAL IV PRN (13:55)
[2021-01-06] MEDS: guaiFENesin SYRUP 200 MG/10 ML UDC PO PRN (17:14)
[2021-01-06] MEDS: hydrALAZINE 20MG/ML 1ML VIAL (J0360 PER 20MG) IV PRN (17:15)
[2021-01-07] VITALS (8 sets, daily range): BP systolic 148–188; BP diastolic 76–108
[2021-01-07 05:41] LABS: BASO # 0.1 10^3/uL (0.0-0.2); BASO % 0.6 % (0.0-1.0); EOS # 0.6 10^3/uL (0.0-0.5); EOS % 5.8 % (0.0-3.0); HEMATOCRIT 28.2 % (36.0-47.0); LYMPH # 1.3 10^3/uL (1.5-5.0); LYMPH % 13.2 % (24.0-44.0); MEAN CORPUSCULAR HEMOGLOBIN 28.8 pg (27.0-33.0); MEAN CORPUSCULAR HGB CONC 31.9 g/dl (32.0-36.5); MEAN CORPUSCULAR VOLUME 90.4 fl (80.0-96.0); MONO # 0.5 10^3/uL (0.0-0.8); MONO % 5.7 % (2.0-8.0); NEUTROPHILS % 73.1 % (36.0-66.0); PLATELET COUNT, AUTOMATED 572 10^3/uL (150-450); RED BLOOD COUNT 3.12 10^6/uL (4.00-5.40); WHITE BLOOD COUNT 9.5 10^3/uL (4.0-10.0)
[2021-01-07 05:56] LABS: C REACTIVE PROTEIN QUANTITATIV 3.61 MG/DL (0.00-0.30); CALCIUM LEVEL 8.5 MG/DL (8.5-10.1); CREATININE FOR GFR 4.53 MG/DL (0.55-1.30); GLOMERULAR FILTRATION RATE 14.4 (>60); MAGNESIUM LEVEL 2.2 MG/DL (1.8-2.4); POTASSIUM SERUM 4.3 MEQ/L (3.5-5.1)
[2021-01-07] MEDS: (RENVELA) SEVELAMER **CARBONate** 800 MG TAB PO SCH ×3 (06:02→17:13)
[2021-01-07] MEDS: **hydrALAZINE** 50 MG TAB PO SCH ×2 (06:03→20:03)
[2021-01-07] MEDS: ASPIRIN 81MG ENTERIC TABLET PO SCH (06:03)
[2021-01-07] MEDS: HEPARIN SOD (PORCINE) 5000UNITS/ML 1ML VIAL/SYRINGE SC SCH ×2 (06:03→20:03)
[2021-01-07] MEDS: FUROSEMIDE 80 MG TAB PO SCH ×2 (06:03→17:13)
[2021-01-07] MEDS: METOPROLOL TARTRATE 100 MG TAB PO SCH ×2 (06:04→20:02)
[2021-01-07] MEDS: guaiFENesin SYRUP 200 MG/10 ML UDC PO PRN (06:13)
[2021-01-07] MEDS: LEVEMIR (INSULIN DETEMIR) 1 UNITS/0.01ML SC SCH ×2 (08:11→20:03)
[2021-01-07] MEDS: HumaLOG INSULIN (NovoLOG) PER UNIT SC SCH ×4 (08:11→20:04)
[2021-01-07] MEDS: SODIUM CHLORIDE NASAL 0.65% SPRAY BTL (OCEAN) SCH ×3 (12:48→20:04)
--- NOTE | 2021-01-07 13:47 | IPN ---
PROGRESS NOTE DATE: 01/07/2021 SUBJECTIVE: Ms. Mireles is seen this morning during dialysis. She reports that her abdominal pain has improved and the diarrhea has resolved. She denies any dyspnea, chest pain, fever, or chills. She has a complaint of sweating while she eats. This has been going on since she started dialysis. OBJECTIVE: VITAL SIGNS: Temperature 97.7 degrees Fahrenheit, heart rate 72 per minute, and respiratory rate 20 per minute. Blood pressure 148/90 mmHg and oxygen saturation 93% on room air. HEAD: Atraumatic. NECK: Supple and without any abnormal lymphadenopathy. Thyroid is mildly enlarged. She has a hemodialysis catheter in the right internal jugular vein. HEART: Sounds are regular with systolic murmur grade 1/6. LUNGS: Clear to auscultation. ABDOMEN: Soft and minimally tender. Bowel sounds are present. EXTREMITIES: Without any cyanosis or clubbing. Her left arm AV fistula is thrombosed. She has a hemodialysis catheter on the right upper chest. NEUROLOGIC: She awake, alert, and oriented x3. LABORATORY DATA: Today's labs show a WBC count of 9.5, hemoglobin 9.0, and hematocrit 28.2. Platelets 572,000. Sodium 133, potassium 4.3, BUN 33, and creatinine 4.53. Glucose 285 and calcium 8.5. C-reactive protein is down to 3.61. PROBLEMS: 1. End-stage renal disease. The patient is being dialyzed today and she is tolerating dialysis very well. She will complete three and a half hours of treatment. 2. Hypovolemia and peripheral edema. Her volume status has improved significantly. She still has some peripheral edema and we are trying to remove about 3.5 liters of fluid today, which she is tolerating well so far. 3. Anemia. Her anemia is stable at present and she will continue with weekly dose of Aranesp. 4. Uncontrolled hypertension. Blood pressure control has also improved with improved volume status. She will continue with chronic antihypertensive medications. 5. Diabetes. Blood sugars are much better controlled in the hospital. She has a chronic history of noncompliance and poor control of diabetes as an outpatient. 6. Gangrenous toe left foot, status post amputation of the big toe. Her wound is healing and she is afebrile. C-reactive protein has come down to 3.6. She is currently not on any systemic antibiotic.
--- NOTE | 2021-01-07 14:46 | IPNPDOC ---
Text Note Date of Service The patient was seen on 01/07/21. NOTE Subjective: No any acute events overnight. Patient stated that she is concern about her living situation. She denies fever, chills, chest pain, palpitations, diarrhea Objective: GENERAL APPEARANCE: NAD HEENT: no scleral icterus, plus JVD, EOMI CARDIOVASCULAR: S1S2 LUNGS: diminished lung sounds b/l ABDOMEN: soft & not tender w palpitation MUSCULOSKELETAL: +1 nonpitting edema, On visual inspection area of amputation of left foot well-healed. Patient has stage 3 plantar wound of the left foot with minimal pus without surrounding erythema INTEGUMENT: no generalized pallor NEUROLOGICAL: cranial nerve function from 2-12 intact intact, follows commands, speech not dysarthric Assessment/Plan Patient is 35 years old female with past medical history of type 1 diabetes, end -stage renal diseases on dialysis, hypertension, anemia of chronic diseases, diabetic nephropathy, feet osteomyelitis presented to the hospital with nausea, vomiting, abdominal pain. Patient stated that she missed dialysis today in the morning because of multiple episodes of vomiting since yesterday evening. Also patient complains of diarrhea, since leaving she had been having 5 episodes of watery stool. Of note, patient was recently diagnosed with C. difficile infection, she received treatment with vancomycin by mouth in the outpatient settings. Also patient had recent surgical intervention, Dr. Rodriguez did to surgical amputation of 5th metatarsal bilaterally due to osteomyelitis. Dr. Krishnamurthy recommended to continue levofloxacin for 3 weeks after discharge and continue vancomycin by mouth for next 4 weeks after discharge on 12/08/20. In ED patient was found to have elevated blood pressure of 220/116. Labs pertinent for leukocytosis of 17.3, hemoglobin 8.6, potassium 5.6, glucose level 670, creatinine 5.1. CT abdomen showed pulmonary edema and diffuse anasarca/soft tissue edema noted throughout the abdomen and pelvis. Problems (1) ESRD (end stage renal disease) Nephrology team on board (2) Diabetes mellitus, insulin dependent (IDDM), uncontrolled Poorly controlled diabetes Last HbA1c around 10 Patient noncompliant to her diabetes treatment Detemir twice a day Diabetes diet Insulin sliding scale Today glucose level continues to be not optimally controlled, I increased her dose of Detemir to 15 units twice a day. Her insulin requirement significantly increased from her baseline. (3) Hyperglycemia Secondary to noncompliance (4) Vomiting Resolved Most likely secondary to uremia superimposed with hypertensive urgency Zofran IV (5) Diabetic foot ulcer with osteomyelitis Patient completed the course of levofloxacin Leukocytosis resolved today. On visual inspection area of amputation of left foot well-healed. 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 difficile infection Patient chronically noncompliant to medical treatment in the outpatient settings I discussed it with Dr. Krishnamurthy, she recommended to check C diff and if its positive to start Fidaxomicin. C diff. test came back negative History of osteomyelitis Patient completed the course of Levaquin On visual inspection area of amputation of left foot well-healed. Patient has stage 3 plantar wound of the left foot with minimal pus without surrounding erythema Anemia Most likely due to ESRD Patient received 4 units of blood in total Hemoglobin stable Elevated bilirubin Most likely secondary to congested liver CT showed. Abnormal fluid changes compatible with fluid imbalance. Stable hepatomegaly. Right upper quadrant ultrasound showed Wall thickening in the contracted ga llbladder, Common bile duct within normal limit Left foot plantar wound Stage 3 w/o erythema Appreciate/ agree with Wound care consult VS,Kiana, I+O VS, [place], I+O Laboratory Tests 01/07/21 05:04 Vital Signs Date Time Temp Pulse Resp B/P (MAP) Pulse Ox O2 Delivery O2 Flow Rate FiO2 01/07/21 12:54 97.7 73 19 150/85 (106) 100 Room Air 01/07/21 04:00 0.0 I&O- Last 24 Hours up to 6 AM 01/07/21 06:00 Intake Total 1890 ml Output Total 150 ml Balance 1740 ml SARTHAK SILVA DO Jan 07, 2021 14:46
--- NOTE | 2021-01-07 21:52 | CR ---
CONSULTATION DATE OF CONSULTATION: 01/07/2021 Advanced wound care consult via telemedicine. CONSULTATION REQUESTED BY: Sravan Fontanez D.O. This is regarding left diabetic foot infection. This is a 35-year-old, type 1 diabetic neuropathic female on dialysis, admitted for blood glucoses over 600 and a change in mental status. The patient has since stabilized somewhat and her glucose control has improved. She recently missed dialysis on multiple occasions and this combined with an elevated glucose brought her to the hospital. On inspection, there is a linear wound on the plantar surface of the left foot at the base of the 2nd metatarsal head and extending to the mid foot. It is difficult to tell if there is a full-thickness wound or not as the possible wound base is covered with a significant amount of dry scales and callus formation. To better evaluate this the wound should be debrided, and I spoke with Dr. Mondragon who has actually treated the patient for a recent abscess involving this location and this may be the residual findings of it. He indicated that the patient did not show up for post treatment evaluation He will see the patient and if indicated at bedside can perform a superficial debridement so that the wound, if present, can be better visualized and staged. At present, a moisturizer and a foam dressing would be adequate. Heel-float boot is recommended to avoid any pressure injuries of the heels which are not present at this time. Patient is eating satisfactory. After the wound has been debrided, a Hydrofera Blue Ready foam would be the treatment of choice. Thank you for this consult. HALLIE
[2021-01-08] VITALS: BP 182/104
[2021-01-08] MEDS: hydrALAZINE 20MG/ML 1ML VIAL (J0360 PER 20MG) IV PRN (01:08)
[2021-01-08 04:00] VITALS: BP 162/98
[2021-01-08 05:10] LABS: BASO # 0.1 10^3/uL (0.0-0.2); BASO % 0.6 % (0.0-1.0); EOS # 0.6 10^3/uL (0.0-0.5); EOS % 5.8 % (0.0-3.0); HEMATOCRIT 28.8 % (36.0-47.0); HEMOGLOBIN 9.1 g/dl (12.0-15.5); LYMPH # 1.5 10^3/uL (1.5-5.0); LYMPH % 13.6 % (24.0-44.0); MEAN CORPUSCULAR HEMOGLOBIN 28.3 pg (27.0-33.0); MEAN CORPUSCULAR HGB CONC 31.6 g/dl (32.0-36.5); MEAN CORPUSCULAR VOLUME 89.7 fl (80.0-96.0); MONO # 0.7 10^3/uL (0.0-0.8); MONO % 6.1 % (2.0-8.0); NEUTROPHILS # 7.8 10^3/uL (1.5-8.5); NEUTROPHILS % 71.9 % (36.0-66.0); PLATELET COUNT, AUTOMATED 634 10^3/uL (150-450); RED BLOOD COUNT 3.21 10^6/uL (4.00-5.40); WHITE BLOOD COUNT 10.8 10^3/uL (4.0-10.0)
[2021-01-08 05:34] LABS: CALCIUM LEVEL 8.8 MG/DL (8.5-10.1); CREATININE FOR GFR 3.65 MG/DL (0.55-1.30); GLOMERULAR FILTRATION RATE 18.5 (>60); MAGNESIUM LEVEL 2.2 MG/DL (1.8-2.4); POTASSIUM SERUM 4.5 MEQ/L (3.5-5.1)
[2021-01-08 08:00] VITALS: BP 148/86
[2021-01-08] MEDS: (RENVELA) SEVELAMER **CARBONate** 800 MG TAB PO SCH ×2 (08:52→12:15)
[2021-01-08] MEDS: ASPIRIN 81MG ENTERIC TABLET PO SCH (08:52)
[2021-01-08] MEDS: **hydrALAZINE** 50 MG TAB PO SCH (08:52)
[2021-01-08 08:53] VITALS: BP 148/82
[2021-01-08] MEDS: FUROSEMIDE 80 MG TAB PO SCH (08:53)
[2021-01-08] MEDS: METOPROLOL TARTRATE 100 MG TAB PO SCH (08:53)
[2021-01-08] MEDS: HumaLOG INSULIN (NovoLOG) PER UNIT SC SCH ×2 (08:54→12:16)
[2021-01-08] MEDS: HEPARIN SOD (PORCINE) 5000UNITS/ML 1ML VIAL/SYRINGE SC SCH (08:54)
[2021-01-08] MEDS: LEVEMIR (INSULIN DETEMIR) 1 UNITS/0.01ML SC SCH (08:55)
[2021-01-08] MEDS: SODIUM CHLORIDE NASAL 0.65% SPRAY BTL (OCEAN) SCH (08:55)
[2021-01-08] MEDS ORDERED: DIMETHICONE 2% OINTMENT(VANICREAM) 70GM TUBE TOP SCH (09:00)
[2021-01-08] MEDS ORDERED: BASA100I SC (11:59)
[2021-01-08] MEDS ORDERED: HYDR-3911 PO (11:59)
[2021-01-08 12:00] VITALS: BP 142/90
[2021-01-08 14:10] LABS: GLUCOSE, FASTING 670 MG/DL (70-100)
--- NOTE | 2021-01-08 16:50 | DS.PDOC ---
Discharge Summary General Date of Admission Jan 04, 2021 at 15:22 Date of Discharge 01/08/21 Discharge Summary PROCEDURES PERFORMED DURING STAY: [None]. ADMITTING DIAGNOSES: ESRD (end stage renal disease) Diabetes mellitus, insulin dependent (IDDM), uncontrolled Hyperglycemia Vomiting Diabetic foot ulcer with osteomyelitis Hypertensive urgency Noncompliance with medication regimen Hyperkalemia Fluid overload Diarrhea History of osteomyelitis Anemia Elevated bilirubin Left foot plantar wound DISCHARGE DIAGNOSES: ESRD (end stage renal disease) Diabetes mellitus, insulin dependent (IDDM), uncontrolled Hyperglycemia Vomiting Diabetic foot ulcer with osteomyelitis Hypertensive urgency Noncompliance with medication regimen Hyperkalemia Fluid overload Diarrhea History of osteomyelitis Anemia Elevated bilirubin Left foot plantar wound COMPLICATIONS/CHIEF COMPLAINT: High Glucose/Cp/Diff Breathing. HISTORY OF PRESENT ILLNESS: Patient is 35 years old female with past medical history of type 1 diabetes, end-stage renal diseases on dialysis, hypertension, anemia of chronic diseases, diabetic nephropathy, feet osteomyelitis presented to the hospital with nausea, vomiting, abdominal pain. Patient stated that she missed dialysis today in the morning because of multiple episodes of vomiting since yesterday evening. Also patient complains of diarrhea, since leaving she had been having 5 episodes of watery stool. Of note, patient was recently diagnosed with C. difficile infection, she received treatment with vancomycin by mouth in the outpatient settings. Also patient had recent surgical intervention, Dr. Rodriguez did to surgical amputation of 5th metatarsal bilaterally due to osteomyelitis. Dr. Krishnamurthy recommended to continue levofloxacin for 3 weeks after discharge and continue vancomycin by mouth for next 4 weeks after discharge on 12/08/20. In ED patient was found to have elevated blood pressure of 220/116. Labs pertinent for leukocytosis of 17.3, hemoglobin 8.6, potassium 5.6, glucose level 670, creatinine 5.1. CT abdomen showed pulmonary edema and diffuse anasarca/soft tissue edema noted throughout the abdomen and pelvis. HOSPITAL COURSE: During the hospital stay the following issue addressed (1) ESRD (end stage renal disease) Nephrology team on board (2) Diabetes mellitus, insulin dependent (IDDM), uncontrolled Poorly controlled diabetes Last HbA1c around 10 Patient noncompliant to her diabetes treatment Detemir twice a day Diabetes diet Insulin sliding scale increased her dose of Detemir to 15 units twice a day. Her insulin requirement significantly increased from her baseline. (3) Hyperglycemia Secondary to noncompliance (4) Vomiting Resolved Most likely secondary to uremia superimposed with hypertensive urgency Zofran IV (5) Diabetic foot ulcer with osteomyelitis Patient completed the course of levofloxacin Leukocytosis resolved today. On visual inspection area of amputation of left foot well-healed. 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 difficile infection Patient chronically noncompliant to medical treatment in the outpatient settings I discussed it with Dr. Krishnamurthy , she recommended to check C diff and if its positive to start Fidaxomicin. C diff. test came back negative History of osteomyelitis Patient completed the course of Levaquin On visual inspection area of amputation of left foot well-healed. Patient has stage 3 plantar wound of the left foot with minimal pus without surrounding erythema Anemia Most likely due to ESRD Patient received 4 units of blood in total Hemoglobin stable Elevated bilirubin Most likely secondary to congested liver CT showed. Abnormal fluid changes compatible with fluid imbalance. Stable hepatomegaly. Right upper quadrant ultrasound showed Wall thickening in the contracted gal lbladder, Common bile duct within normal limit Left foot plantar wound Stage 3 w/o erythema Dr Espinosa recommended debridement which was done today by Dr. Rodriguez DISCHARGE MEDICATIONS: Please see below. ALLERGIES: Please see below. PHYSICAL EXAMINATION ON DISCHARGE: VITAL SIGNS: Please see below. GENERAL APPEARANCE: NAD HEENT: no scleral icterus, plus JVD, EOMI CARDIOVASCULAR: S1S2 LUNGS: diminished lung sounds b/l ABDOMEN: soft & not tender w palpitation MUSCULOSKELETAL: +1 nonpitting edema, On visual inspection area of amputation of left foot well-healed. Patient has stage 3 plantar wound of the left foot with minimal pus without surrounding erythema INTEGUMENT: no generalized pallor NEUROLOGICAL: cranial nerve function from 2-12 intact intact, follows commands, speech not dysarthric LABORATORY DATA: Please see below. IMAGING: [facility] NAME: KATELYN COLLINS DATE OF : 1985 AGE: 35 SEX: F REPORT #: [id number] ROOM: ED TECHNOLOGIST: RONNIEREPLACED BY [facility] DOCTOR: Urvashi Mcconnell MD Ordered for Date&Time: 01/04/21 1409 cc: [~ rep ct ivnm] Service Date&Time: This report is in Signed status. If this report is in a DRAFT status it has not yet been reviewed by the radiologist for accuracy. Thank you for having your radiology procedures performed at [facility] RADIOLOGY REPORT Date&Time printed: [~ rep prt dt last] [~ rep prt tm last] Page 2 of 2 [place] [address] RADIOLOGY REPORT This report is in Signed status. If this report is in a DRAFT status it has not yet been reviewed by the radiologist for accuracy. Thank you for having your radiology procedures performed at [facility] RADIOLOGY REPORT Date&Time printed: [~ rep prt dt last] [~ rep prt tm last] Page 1 of 2 INDICATION: abd pain COMPARISON: 12/08/2020 TECHNIQUE: Axial noncontrast images from the lung bases to the pubic symphysis with coronal and sagittal reformations. This CT examination was performed using the following dose reduction techniques: Automated exposure control, adjustment of mA and/or kv according to the patient's size, and use of iterative reconstruction technique. FINDINGS: Examination is significantly limited due to technical factors the body habitus and poor contrast. Lung bases demonstrate considerable pulmonary edema. Visualized heart and pericardium are normal. Significant diffuse anasarca/soft tissue edema noted throughout the abdomen and pelvis. Small to moderate amount of ascites extends into the pelvis. Hepatomegaly. Spleen, pancreas, gallbladder, bilateral adrenal glands and kidneys are grossly normal. The enteric system is without obstruction. Normal appendix identified in the right lower quadrant. No free air identified to suggest perforation. Pelvis demonstrates normal bladder and age-appropriate uterus/adnexa. Abdominal aorta without aneurysm. Osseous structures are intact. IMPRESSION: 1. Abnormal fluid changes as described above compatible with fluid imbalance. Correlation is recommended to exclude cirrhosis or end-stage renal disease as the cause. 2. Stable hepatomegaly. <Electronically signed by Guy Garcia > 01/04/21 1433 DD: Guy Garcia MD 01/04/21 142 DT: JEFFREY 01/04/21 143 DS: AMADOU 01/04/21142801/04/21 142 [~ rep ct labl] PROGNOSIS: Fair ACTIVITY: [As tolerated]. DIET: Cardiac/diabetes DISPOSITION: 01 Home, Self-Care. ITEMS TO FOLLOWUP ON ON OUTPATIENT: Follow-up with woven paper hat mender, operations leader, PCP and cast specialist DISCHARGE CONDITION: [Stable]. TIME SPENT ON DISCHARGE: 40 minutes. Vital Signs/I&Os Vital Signs Date Time Temp Pulse Resp B/P (MAP) Pulse Ox O2 Delivery O2 Flow Rate FiO2 01/08/21 12:00 97.8 87 20 142/90 (107) 96 Room Air 01/07/21 04:00 0.0 I&O- Last 24 Hours up to 6 AM 01/08/21 05:59 Intake Total 1100 ml Output Total 3500 ml Balance -2400 ml Laboratory Data Labs 24H Laboratory Tests 2 01/07/21 19:53: Bedside Glucose (Misc Panel) 154H 01/08/21 04:50: Immature Granulocyte % (Auto) 2.0, Neutrophils (%) (Auto) 71.9H, Lymphocytes (%) (Auto) 13.6L, Monocytes (%) (Auto) 6.1, Eosinophils (%) (Auto) 5.8H, Basophils (%) (Auto) 0.6, Neutrophils # (Auto) 7.8, Lymphocytes # (Auto) 1.5, Monocytes # (Auto) 0.7, Eosinophils # (Auto) 0.6H, Basophils # (Auto) 0.1, Nucleated Red Blood Cells % (auto) 0.0, Anion Gap 7L, Glomerular Filtration Rate 18.5L, Calcium Level 8.8, Magnesium Level 2.2 01/08/21 11:41: Bedside Glucose (Misc Panel) 160H 01/08/21 15:46: Bedside Glucose (Misc Panel) 44L CBC/BMP Laboratory Tests 01/08/21 04:50 FSBS Laboratory Tests Test 01/07/21 19:53 01/08/21 11:41 01/08/21 15:46 Range/Units Bedside Glucose (Misc Panel) 154 160 44 70-105 MG/DL Microbiology Microbiology 01/04/21 Blood Culture - Preliminary, Resulted No Growth after 72 hours. All specime... 01/04/21 Blood Culture - Preliminary, Resulted No Growth after 72 hours. All specime... Discharge Medications Scheduled Amlodipine Besylate (Amlodipine Besylate) 10 Mg Tablet, 10 MG PO DAILY, (Reported) Aspirin (Aspirin EC) 81 Mg Tablet.dr, 81 MG PO DAILY, (Reported) Ergocalciferol (Vitamin D2) (Vitamin D2) 50,000 Units Cap, 1 CAP PO QWEEK, (Reported) THURSDAY Furosemide (Furosemide) 80 Mg Tablet, 80 MG PO BID, (Reported) Hydralazine HCl (Hydralazine HCl) 50 Mg Tablet, 100 MG PO BID Insulin Glargine,Hum.rec.anlog (Basaglar Kwikpen U-100) 100 Unit/1 Ml Insuln.pen, 25 UNIT SC QHS Insulin Human Lispro (Novolog) 100 Unit/1 Ml Vial, 1 DOSE SC AC, (Reported) PER SLIDING SCALE L.acidoph/L.bulg/B.bif/S.therm (Tonja-Bid Caplet) 1 Each Tablet, 1 TAB PO BIDWM, (Reported) Metoprolol Tartrate (Metoprolol Tartrate) 100 Mg Tablet, 100 MG PO BID, (Reported) Nifedipine (Nifedipine ER) 90 Mg Tablet.er, 90 MG PO DAILY, (Reported) Sevelamer Carbonate (Sevelamer Carbonate) 800 Mg Tablet, 800 MG PO BID, (Reported) with a snack Sevelamer Carbonate (Sevelamer Carbonate) 800 Mg Tablet, 1,600 MG PO TID, (Reported) WITH MEALS Allergies Coded Allergies: cinacalcet (Verified Allergy, Unknown, 11/25/20) latex (Verified Allergy, Unknown, 11/03/19) morphine (Verified Allergy, Unknown, 11/03/19) peanut (Verified Allergy, Unknown, 11/25/20) TAPE (Verified Adverse Reaction, Intermediate, IRRITATES SKIN, 11/03/19) USE PAPER TAPE ONL;SARTHAK NICHOLS DO Jan 08, 2021 16:50
--- NOTE | 2021-01-08 18:35 | CR ---
CONSULTATION DATE: 01/08/2021 REASON FOR CONSULTATION: Left foot ulceration. HISTORY OF PRESENT ILLNESS: Narcisa Mireles is a patient known to me from previous admission as well as from my office, who was admitted due to shortness of breath. She was found to be with significantly elevated glucose with readings over 600. She has an ulceration on her left foot from an abscess which had incision and drainage with implantation of antibiotic beads on last visit. I was asked to evaluate this wound. PAST MEDICAL HISTORY: Significant for: 1. Diabetes with uncontrolled glucose and neuropathy. 2. End-stage renal disease on dialysis. 3. Pulmonary hypertension. 4. Thrombocytosis. 5. Hypertension. PAST SURGICAL HISTORY: 1. Arteriovenous fistula. 2. (C) section. 3. Bilateral fifth metatarsal head excisions. 4. Brain surgery for a cyst. ALLERGIES: TAPE, CINCALCET, LATEX, MORPHINE, PEANUTS. FAMILY HISTORY: Significant for diabetes and chronic obstructive pulmonary disease (COPD), hypertension. SOCIAL HISTORY: Denies smoking. Denies alcohol use. REVIEW OF SYSTEMS: Negative for nausea, vomiting, fever or chills. LABORATORY DATA: Labs are reviewed. White cell count is 10.8. Most recent C-reactive protein (CRP) is 3.61. PHYSICAL EXAMINATION: VITAL SIGNS: Are examined. Patient has been afebrile since admission. LOWER EXTREMITY EXAMINATION: Erythema and edema are not present. The previous amputation sites at the fifth metatarsal heads are well-healed. The plantar surface has a wound at the distal aspect of the incision with some fibrous tissue. No purulent drainage or necrotic tissue noted. ASSESSMENT: This is a 35-year-old female with ulceration of left foot status post incision and drainage from abscess. PLAN: Bedside wound debridement was performed with general curette including excision of nonviable subcutaneous tissue. Dressing applied. Patient should have followup care with myself and with Dr. Espinosa.
== END 2021-01-08 16:03 | disposition home or self-care (01) | DRG 637 ==
LOC: EDBD 11:58 → M ED 11:58 → M ED INP 15:22 → ENRESERV 19:02 → M PCU 20:23
PROVIDERS: ADMIT Internal Medicine; ATTEND Internal Medicine
PROC: 30233N1 Transfusion of Nonautologous Red Blood Cells into Peripheral Vein, Percutaneous Approach (ICD-10-PCS; 2021-01-05)
PROC: 0JBR3ZZ Excision of Left Foot Subcutaneous Tissue and Fascia, Percutaneous Approach (ICD-10-PCS; principal; 2021-01-08)
DX: E10.65 Type 1 diabetes mellitus with hyperglycemia (principal); N18.6 End stage renal disease; R18.8 Other ascites; M86.272 Subacute osteomyelitis, left ankle and foot; E10.621 Type 1 diabetes mellitus with foot ulcer; E87.70 Fluid overload, unspecified; E87.5 Hyperkalemia; Z91.19 Patient's noncompliance with other medical treatment and regimen; R11.10 Vomiting, unspecified; Z91.14 Patient's other noncompliance with medication regimen; Z79.4 Long term (current) use of insulin; I16.0 Hypertensive urgency; L97.529 Non-pressure chronic ulcer of other part of left foot with unspecified severity; R19.7 Diarrhea, unspecified; D63.1 Anemia in chronic kidney disease; E10.21 Type 1 diabetes mellitus with diabetic nephropathy; Z79.82 Long term (current) use of aspirin; Z79.899 Other long term (current) drug therapy; Z88.5 Allergy status to narcotic agent; Z91.040 Latex allergy status; Z91.010 Allergy to peanuts; Z89.421 Acquired absence of other right toe(s); Z89.422 Acquired absence of other left toe(s); Z91.15 Patient's noncompliance with renal dialysis; I27.20 Pulmonary hypertension, unspecified

== ENCOUNTER 2021-01-12 10:24 | Inpatient (IN) | payer MEDICARE, MEDICAID ==
[~2021-01-12] VITALS: Ht 175.3 cm; Wt 98.3 kg
[~2021-01-12 10:24] MED LIST changes: +ASPI81TA26 PO; +HYDR-3911 PO; +LEVO250T12 PO; -VITAMIN D 50,000 UNITS CAPSULE (ERGOCALCIFEROL 1.25MG) PO SCH
[2021-01-12] MEDS ORDERED: METOPROLOL TARTRATE 100 MG TAB PO ONE (11:10)
[2021-01-12] MEDS ORDERED: **hydrALAZINE** 50 MG TAB PO ONE (11:10)
[2021-01-12] MEDS ORDERED: NIFEdipine 30 MG XL TAB PO ONE (11:12)
[2021-01-12 11:39] LABS: BASO # 0.1 10^3/uL (0.0-0.2); BASO % 0.7 % (0.0-1.0); EOS # 0.5 10^3/uL (0.0-0.5); EOS % 4.3 % (0.0-3.0); HEMATOCRIT 26.3 % (36.0-47.0); HEMOGLOBIN 8.6 g/dl (12.0-15.5); LYMPH # 1.2 10^3/uL (1.5-5.0); LYMPH % 11.4 % (24.0-44.0); MEAN CORPUSCULAR HEMOGLOBIN 29.2 pg (27.0-33.0); MEAN CORPUSCULAR HGB CONC 32.7 g/dl (32.0-36.5); MEAN CORPUSCULAR VOLUME 89.2 fl (80.0-96.0); MONO # 0.5 10^3/uL (0.0-0.8); MONO % 4.8 % (2.0-8.0); NEUTROPHILS # 8.5 10^3/uL (1.5-8.5); NEUTROPHILS % 78.2 % (36.0-66.0); PLATELET COUNT, AUTOMATED 516 10^3/uL (150-450); RED BLOOD COUNT 2.95 10^6/uL (4.00-5.40); WHITE BLOOD COUNT 10.8 10^3/uL (4.0-10.0)
[2021-01-12 11:49] LABS: INR 1.1; PROTHROMBIN TIME 14.4 SECONDS (12.5-14.3)
[2021-01-12 12:15] LABS: ALBUMIN 2.5 GM/DL (3.2-5.2); BILIRUBIN,DIRECT 2.5 MG/DL (0.0-0.2); BILIRUBIN,TOTAL 3.2 MG/DL (0.2-1.0); CK-MB VALUE MASS 1.6 NG/ML (<3.6); MB/CK RELATIVE INDEX 0.87 (< OR =4); TOTAL PROTEIN 7.3 GM/DL (6.4-8.2); TROPONIN I 0.02 NG/ML (< 0.10)
--- NOTE | 2021-01-12 12:16 | REP ---
INDICATION: sob COMPARISON: 12/13/2020 TECHNIQUE: Portable AP view of the chest FINDINGS: The mediastinum and cardiac silhouette are stable. Double-lumen catheter stable extends into the SVC. The lung menjivar are clear without acute consolidation, effusion, or pneumothorax. Skeletal structures are intact. IMPRESSION: Stable examination. No acute cardiopulmonary process appreciated. <Electronically signed by Guy Garcia > 01/12/21 1212
[2021-01-12] MEDS ORDERED: HumuLIN R (REGULAR) INSULIN (NovoLIN R) **100U/ML** PER UNIT IV ONE (12:20)
[2021-01-12 12:51] LABS: RSV AMPLIFICATION NEGATIVE (NEGATIVE)
--- NOTE | 2021-01-12 13:07 | ECGEPIP ---
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
[2021-01-12] MEDS ORDERED: HYDR50TA PO (14:01)
[2021-01-12] MEDS ORDERED: BASA100I SC (14:01)
--- NOTE | 2021-01-12 14:03 | HPEPDOC ---
General Date of Admission Jan 12, 2021 at 13:43 Date of Service: Jan 12, 2021 Attending Physician: IKER BELTRAN MD Chief Complaint CC: High blood pressure / No meds HPI: Pt is a 35 y/o female with PMHx significant for ESRD on dialysis M, W, F, HTN, DM1 with complications (diabetic foot ulcers), noncompliant with all meds due to social issues, presents to [facility] ER due to hypertensive urgency without evidence of end organ dmg, and uncontrolled blood sugars. She was recently admitted and discharged from [facility] due to the same issues. Pt states that she recently moved from [place] to [place] and lived with her sister; however, she was recently states that she has been kicked out of her sisters house. She states that she has been essentially homeless and has been sleeping in a hotel and most recently a park bench prior to arriving in the ER. She states that she has not had any of her medications b/c her sister usu gets them for her but this time, her sister has refused to give her medication. In the ER, her bp was 230s systolic and 100s diastolic. Her BS is in the 400s. ER started her on her home PO hypertensive meds and started her on fluids. Her L foot has a open wound/ulceration from an abscess which was previously incised and drained with implanted antibiotic beads. She has relatively preserved sensation in bilateral lower extremities. She also complains of substernal chest pain that's been going on for years that are sharp in nature, and exacerbated by moving with some shortness of breath associated with it. She's also complaining of some diffuse abdominal discomfort, that's intermittent and sharp and crampy in nature. She reports having a few BMs with some blood upon wiping, the last time being 3 days ago. She's had a bowel movement yesterday which she reports was normal in caliber and nonbloody. PAST MEDICAL HISTORY: 1. Diabetes (Type 1) with uncontrolled glucose and neuropathy 2. End-stage renal disease on dialysis 2/2 HTN / DM 3. Pulmonary hypertension 4. Thrombocytosis 5. Hypertension PAST SURGICAL HISTORY: 1. Arteriovenous fistula. 2. (C) section. 3. Bilateral fifth metatarsal head excisions. 4. Brain surgery for a cyst. ALLERGIES: TAPE, CINCALCET, LATEX, MORPHINE, PEANUTS. FAMILY HISTORY: Significant for diabetes COPD, and hypertension. SOCIAL HISTORY: Denies smoking. Denies alcohol use. Denies illicit drug use Currently homeless (moved from [place] to [place] to live with sister, who has recently thrown her out of her house). MEDS: see below Labs: See below IMAGING: XR chest: No acute cardiopulmonary process appreciated. PHYSICAL EXAM VS: see below General: Very unkempt, distressed female, cooperative on exam HEENT: dry mucus membranes Cardio: RRR, NSR, no m.g.r, no jvd appreciated, 2+ pitting edema in bilateral extremities PULM: no wheezing, rhonci ,or rales appreciated ABD: soft, non distended, tender on palpation throughout, NS in all 4 quadrants Skin/extr: R permacath seen on R upper chest.The previous amputation sites at the fifth metatarsal heads are well-healed. The plantar surface of the Left f oot has an open ulceration but no blood or pus draining from the site. She has mildly decreased sensation in bilateral feet no necrotic issues are seen on exam ASSESSMENT AND PLAN: Pt is a 35 y/o female with PMHx significant for ESRD on dialysis M, W, F, HTN, DM1 with complications (diabetic foot ulcers), noncompliant with all meds due to social issues, presents to [facility] ER due to hypertensive urgency without evidence of end organ dmg, and uncontrolled blood sugars. She was recently admitted and discharged from [facility] due to the same issues. Pt states that she recently moved from [place] to [place] and lived with her sister; however, she was recently states that she has been kicked out of her sisters house. She states that she has been essentially homeless and has been sleeping in a hotel and most recently a park bench prior to arriving in the ER. She states that she has not had any of her medications b/c her sister usu gets them for her but this time, her sister has refused to give her medication. In the ER, her bp was 230s systolic and 100s diastolic. Her BS is in the 400s. ER started her on her home PO hypertensive meds and started her on fluids. Her L foot has a open wound/ulceration from an abscess which was previously incised and drained with implanted antibiotic beads. She has relatively preserved sensation in bilateral lower extremities. She also complains of substernal chest pain that's been going on for years that are sharp in nature, and exacerbated by moving with some shortness of breath associated with it. She's also complaining of some diffuse abdominal discomfort, that's intermittent and sharp and crampy in nature. She reports having a few BMs with some blood upon wiping, the last time being 3 days ago. She's had a bowel movement yesterday which she reports was normal in caliber and nonbloody. Will be admitted to manage her uncontrolled bp and bs and will require PFS for placement. # ESRD - hemodialysis M, W, F - dialyzed yesterday via permacath - AV fistula on R arm is ineffective - nephrology consulted (Dr. Yassine Vitale) - appreciate further recommendations # Diabetes mellitus T1 insulin dependent with complications, uncontrolled - A1c 10 - noncompliant with meds due to social issues (unable to afford, and homeless) - PFS consult for placement - Levemir +lispro with hypoglycemic protocol in place - consistent carb diet #Hypertensive urgency - restarted on her home PO bp med regimen - IV labetalol 20mg x 1 dose - Will continue to monitor her bp closely - PCU for telemetry monitoring / IV BP medications # Diabetic foot ulcer - Will order wound cx - Will order for blood cx, UA with reflex to cx, - Will check CRP - Will consult podiatry (Dr. Mondragon)-appreciate further recommendations #uncontrolled blood sugar 2/2 to medication non compliance - levemir 25 units with SSI+ hypoglycemic protocol #Anemia likely 2/2 to ESRD - Hg at baseline - denies diarrhea - states she had some BM's with blood noted on wiping #Elevated Alk Phos - Elevated of bilirubin - No specific RUQ tenderness - Liver US 01/06: 1. Wall thickening in the contracted gallbladder. 2. Markedly increased renal parenchymal echotexture, consistent with medical renal disease. - Will continue to trend #Hyponatremia DVT ppx: Will start Heparin GI ppx: none Diet: 2g Na and consistent carb Fluids: NS code status: FULL Home Medications Scheduled Amlodipine Besylate (Amlodipine Besylate) 10 Mg Tablet, 10 MG PO DAILY, (Reported) Aspirin (Aspirin EC) 81 Mg Tablet.dr, 81 MG PO DAILY, (Reported) Ergocalciferol (Vitamin D2) (Vitamin D2) 50,000 Units Cap, 1 CAP PO QWEEK, (Reported) THURSDAY Furosemide (Furosemide) 80 Mg Tablet, 80 MG PO BID, (Reported) Hydralazine HCl (Hydralazine HCl) 50 Mg Tablet, 100 MG PO BID, (Reported) Insulin Glargine,Hum.rec.anlog (Basaglar Kwikpen U-100) 100 Unit/1 Ml Insuln.pen, 25 UNIT SC QHS, (Reported) Insulin Human Lispro (Novolog) 100 Unit/1 Ml Vial, 1 DOSE SC AC, (Reported) PER SLIDING SCALE L.acidoph/L.bulg/B.bif/S.therm (Tonja-Bid Caplet) 1 Each Tablet, 1 TAB PO BIDWM, (Reported) Metoprolol Tartrate (Metoprolol Tartrate) 100 Mg Tablet, 100 MG PO BID, (Reported) Nifedipine (Nifedipine ER) 90 Mg Tablet.er, 90 MG PO DAILY, (Reported) Sevelamer Carbonate (Sevelamer Carbonate) 800 Mg Tablet, 800 MG PO BID, (Reported) with a snack Sevelamer Carbonate (Sevelamer Carbonate) 800 Mg Tablet, 1,600 MG PO WM, (Reported) WITH MEALS Allergies Coded Allergies: cinacalcet (Verified Allergy, Unknown, 11/25/20) latex (Verified Allergy, Unknown, 11/03/19) morphine (Verified Allergy, Unknown, 11/03/19) peanut (Verified Allergy, Unknown, 11/25/20) TAPE (Verified Adverse Reaction, Intermediate, IRRITATES SKIN, 11/03/19) USE PAPER TAPE ONL;Y A-FIB/CHADSVASC A-FIB History Current/History of A-Fib/PAF?: No Vital Signs Vital Signs Date Time Temp Pulse Resp B/P (MAP) Pulse Ox O2 Delivery O2 Flow Rate FiO2 01/12/21 11:24 230/130 01/12/21 10:55 99.1 91 20 96 Room Air Laboratory Data Labs 24H Laboratory Tests 2 01/12/21 10:51: Bedside Glucose (Misc Panel) 358H 01/12/21 11:10: Immature Granulocyte % (Auto) 0.6, Neutrophils (%) (Auto) 78.2H, Lymphocytes (%) (Auto) 11.4L, Monocytes (%) (Auto) 4.8, Eosinophils (%) (Auto) 4.3H, Basophils (%) (Auto) 0.7, Neutrophils # (Auto) 8.5, Lymphocytes # (Auto) 1.2L, Monocytes # (Auto) 0.5, Eosinophils # (Auto) 0.5, Basophils # (Auto) 0.1, Nucleated Red Blood Cells % (auto) 0.0, Prothrombin Time 14.4H, Prothromb Time International Ratio 1.10, Total Bilirubin 3.2H, Direct Bilirubin 2.5H, Aspartate Amino Transf (AST/SGOT) 43H, Alanine Aminotransferase (ALT/SGPT) 34, Alkaline Phosphatase 876H, Total Creatine Kinase 183, Creatine Kinase MB 1.6, Creatine Kinase MB Relative Index 0.87, Troponin I 0.02, Total Protein 7.3, Albumin 2.5L, Albumin/Globulin Ratio 0.5L, Lipase 264 01/12/21 11:37: Coronavirus (COVID-19)(PCR) NEGATIVE, Influenza Type A (RT-PCR) NEGATIVE, Influenza Type B (RT-PCR) NEGATIVE, Respiratory Syncytial Virus (PCR) NEGATIVE 01/12/21 11:42: POC Glucose (Misc Panel) 405H, POC Sodium (Misc Panel) 131L, POC Potassium (Misc Panel) 4.0, POC Chloride (Misc Panel) 89L, POC Total CO2 (Misc Panel) 34.0H, POC Blood Urea Nitrogen (Misc Panel 22, POC Ionized Calcium (Misc Panel) 4.0L, POC Creatinine (Misc Panel) 3.5H, POC Hematocrit (Misc Panel) 30.0L 01/12/21 13:38: Bedside Glucose (Misc Panel) 190H CBC/BMP Laboratory Tests 01/12/21 11:10 Microbiology Microbiology 01/12/21 Blood Culture, Received Pending Plan / VTE VTE Prophylaxis Ordered?: Yes GME ATTESTATION GME ATTESTATION My faculty preceptor for this patient encounter was physically present during the encounter and was fully available. All aspects of the patient interview, examination, medical decision making process, and medical care plan development were reviewed and approved by the faculty preceptor. The faculty preceptor is aware and concurs with the plan as stated in the body of this note and will attest to such by his/her cosignature. ATTENDING NOTE I, Iker Beltran, have independently examined this patient and performed my own physical exam, as well as reviewed the documentation and edited where necessary. I have discussed in detail with the resident / student the findings and plan of treatment as documented by the resident / student and edited their note. I agree with their findings and treatment plan and have edited their documentation. I will continue to follow the patient during this hospital stay. Laurence Sarmiento DO Jan 12, 2021 14:03 IKER BELTRAN MD Jan 12, 2021 15:47
[2021-01-12] MEDS ORDERED: LABETALOL 100MG/20ML VIAL IV STA (14:43)
[2021-01-12 14:51] LABS: VENOUS BASE EXCESS 5.6 (-2.0-2.0); VENOUS O2 SATURATION 99.9 % (60.0-80.0); VENOUS PARTIAL PRESSURE O2 183.3 mmHg (30.0-50.0); VENOUS PH 7.719 UNITS (7.330-7.430); VENOUS STANDARD HCO3 29.6 MEQ/L; VENOUS TOTAL CO2 24.6 MEQ/L (24.0-28.0)
[2021-01-12] MEDS ORDERED: GLUCAGON INJ 1MG VIAL SC PRN (15:20)
[2021-01-12] MEDS ORDERED: DEXTROSE 50% 50 ML SYRINGE IV PRN (15:20)
[2021-01-12] MEDS ORDERED: GLUCOSE 4GM CHEW TABLET PO PRN (15:20)
[2021-01-12 15:36] LABS: ABG BASE EXCESS 4.5 (-2.0-2.0); ABG HCO3 27.8 MEQ/L (22.0-26.0); ABG O2 SATURATION 89.3 % (95.0-99.0); ABG PARTIAL PRESSURE CO2 36.1 mmHg (35.0-45.0); ABG STANDARD HCO3 28.4 MEQ/L (22.0-26.0); ABG TOTAL CO2 28.9 MEQ/L (22.0-29.0); ABG pH (ARTERIAL) 7.504 UNITS (7.350-7.450)
[2021-01-12 16:00] VITALS: BP 160/115
[2021-01-12 16:00] LABS: C REACTIVE PROTEIN QUANTITATIV 8.38 MG/DL (0.00-0.30); CALCIUM LEVEL 8.7 MG/DL (8.5-10.1); CREATININE FOR GFR 3.66 MG/DL (0.55-1.30); GLOMERULAR FILTRATION RATE 18.4 (>60); MAGNESIUM LEVEL 2.1 MG/DL (1.8-2.4); POTASSIUM SERUM 4.3 MEQ/L (3.5-5.1)
[2021-01-12] MEDS: (RENVELA) SEVELAMER **CARBONate** 800 MG TAB PO SCH (17:29)
[2021-01-12] MEDS: FUROSEMIDE 80 MG TAB PO SCH (17:29)
[2021-01-12] MEDS: HumaLOG INSULIN (NovoLOG) PER UNIT SC SCH ×2 (17:31→21:55)
[2021-01-12 17:43] VITALS: BP 130/84
[2021-01-12 18:23] LABS: CK-MB VALUE MASS 1.3 NG/ML (<3.6); MB/CK RELATIVE INDEX 0.84 (< OR =4); TROPONIN I 0.02 NG/ML (< 0.10)
[2021-01-12 20:00] VITALS: BP 115/57
[2021-01-12] MEDS: METOPROLOL TARTRATE 100 MG TAB PO SCH (21:00)
[2021-01-12] MEDS ORDERED: (RENVELA) SEVELAMER **CARBONate** 800 MG TAB PO PRN (21:00)
[2021-01-12] MEDS: **hydrALAZINE** 50 MG TAB PO SCH (21:44)
[2021-01-12] MEDS: HEPARIN SOD (PORCINE) 5000UNITS/ML 1ML VIAL/SYRINGE SQ SCH (21:45)
[2021-01-12] MEDS: LEVEMIR (INSULIN DETEMIR) 1 UNITS/0.01ML SC SCH (21:48)
[2021-01-12] MEDS ORDERED: HEPARIN SOD (PORCINE) 5000UNITS/ML 1ML VIAL/SYRINGE SC SCH (22:00)
[2021-01-12 23:52] LABS: CK-MB VALUE MASS 1.2 NG/ML (<3.6); CPK CREATINE PHOSPHOKINASE 143 U/L (26-192); MB/CK RELATIVE INDEX 0.84 (< OR =4); TROPONIN I < 0.02 NG/ML (< 0.10)
[2021-01-13] VITALS: BP 119/58
[2021-01-13 04:00] VITALS: BP 118/66
[2021-01-13] MEDS: HEPARIN SOD (PORCINE) 5000UNITS/ML 1ML VIAL/SYRINGE SQ SCH ×3 (05:13→22:04)
[2021-01-13 05:19] LABS: BASO # 0.1 10^3/uL (0.0-0.2); BASO % 0.6 % (0.0-1.0); EOS # 0.5 10^3/uL (0.0-0.5); EOS % 4.6 % (0.0-3.0); HEMATOCRIT 25.2 % (36.0-47.0); HEMOGLOBIN 8.1 g/dl (12.0-15.5); LYMPH # 1.8 10^3/uL (1.5-5.0); LYMPH % 18.5 % (24.0-44.0); MEAN CORPUSCULAR HEMOGLOBIN 28.8 pg (27.0-33.0); MEAN CORPUSCULAR HGB CONC 32.1 g/dl (32.0-36.5); MEAN CORPUSCULAR VOLUME 89.7 fl (80.0-96.0); MONO # 0.6 10^3/uL (0.0-0.8); MONO % 5.9 % (2.0-8.0); NEUTROPHILS # 6.9 10^3/uL (1.5-8.5); NEUTROPHILS % 69.7 % (36.0-66.0); PLATELET COUNT, AUTOMATED 536 10^3/uL (150-450); RED BLOOD COUNT 2.81 10^6/uL (4.00-5.40); WHITE BLOOD COUNT 9.8 10^3/uL (4.0-10.0)
[2021-01-13 05:44] LABS: ALBUMIN 2.2 GM/DL (3.2-5.2); BILIRUBIN,TOTAL 2.7 MG/DL (0.2-1.0); CALCIUM LEVEL 8.9 MG/DL (8.5-10.1); CREATININE FOR GFR 4.4 MG/DL (0.55-1.30); GLOMERULAR FILTRATION RATE 14.9 (>60); MAGNESIUM LEVEL 2.2 MG/DL (1.8-2.4); POTASSIUM SERUM 3.5 MEQ/L (3.5-5.1); TOTAL PROTEIN 7.5 GM/DL (6.4-8.2)
[2021-01-13] MEDS: HumaLOG INSULIN (NovoLOG) PER UNIT SC SCH ×4 (07:30→21:00)
[2021-01-13 08:00] VITALS: BP 134/74
[2021-01-13] MEDS: (RENVELA) SEVELAMER **CARBONate** 800 MG TAB PO SCH ×3 (08:47→17:47)
[2021-01-13] MEDS: ASPIRIN 81MG ENTERIC TABLET PO SCH (08:50)
[2021-01-13] MEDS: NIFEdipine 30 MG XL TAB PO SCH (08:50)
[2021-01-13] MEDS: **hydrALAZINE** 50 MG TAB PO SCH ×2 (08:51→21:00)
[2021-01-13] MEDS: FUROSEMIDE 80 MG TAB PO SCH ×2 (08:52→17:47)
[2021-01-13] MEDS: METOPROLOL TARTRATE 100 MG TAB PO SCH ×2 (08:52→22:04)
[2021-01-13] MEDS: LACTIC ACID 12% LOTION 225 GM BTL TOP SCH (09:00)
--- NOTE | 2021-01-13 09:16 | CR ---
CONSULTATION DATE: 01/13/2021 REASON FOR CONSULTATION: Left foot ulceration. HISTORY OF PRESENT ILLNESS: Narcisa Mireles is a patient well-known to me who is admitted through the ER with hypertension and uncontrolled glucose. She had recently been seen earlier in the week for the same. She is in unstable living conditions and presently does not have access to her medications. She was seen last month by myself due to left foot infection when she underwent fifth metatarsal head excision and incision and drainage with antibiotic bead placement. She has completed her antibiotics for the same. PAST MEDICAL HISTORY: Significant for diabetes with uncontrolled glucose, neuropathy, endstage renal disease on dialysis, pulmonary hypertension, thrombocytosis, hypertension. PAST SURGICAL HISTORY: AV fistula, , bilateral 5th metatarsal head excision, left foot incision and drainage, brain surgery for a cyst. ALLERGIES: Tape, Cinacalcet, latex, morphine, peanuts. FAMILY HISTORY: Noncontributory for diabetes. SOCIAL HISTORY: Denies smoking or alcohol use. REVIEW OF SYSTEMS: She denies nausea, vomiting, fever or chills. VITALS: She has been afebrile. LABS: White blood cell count is 9.8. CRP is 8.38. PHYSICAL EXAMINATION: Lower extremity examination: There is no erythema or edema coming from the left foot. There is a wound on the left plantar surface with some nonviable tissue. The left fifth toe has some distal eschar but there is some blood flow surrounding. ASSESSMENT: A 35-year-old diabetic female with left foot ulcer. PLAN: Wound care orders written. She is to be partial weightbearing. Will follow.
--- NOTE | 2021-01-13 10:03 | IPNPDOC ---
Text Note Date of Service The patient was seen on 01/13/21. NOTE Subjective: Patient is a 35-year-old female with a PMHx of ESRD on HD (MWF), HTN, IDDM1 with multiple complications, Hx of Osteomyelitis / Diabetic foot ulcers, Hx of C. diff colitis who presented to emergency [facility] after she had reported that she could not take any of her medications because her sister with provide them.. On arrival to emergency room, patient was found to be in hypertensive urgency with a SBP greater than 230. She was admitted to the hospital service for further evaluation and treatment. Patient was seen and examined at the bedside. Currently was seen sitting up in bed on her cell phone. Patient did not appear to be in any distress. Denies any chest pain, shortness of breath, palpitations, nausea, vomiting, abdominal discomfort. Denies any diarrhea. Objective: Vitals (See below) General: Lying in bed, appears comfortable, AAOx3 HEENT: NC, AT CVS: RRR, +S1S2 Lungs: Fair air entry b/l, no appreciable wheezing, rhonchi or rales Abdomen: Soft, nondistended, nontender Extremities: Trace to 1+ pitting edema, - Calf tenderness Assessment and plan: HTN; s/p Hypertensive urgency - Blood pressure currently well controlled - s/p Labetalol IV - c/w furosemide, hydralazine, metoprolol, nifedipine ESRD on HD (MWF) - Patient has been dialyzed on her regular schedule as an outpatient - Nonfunctioning right arm AV fistula; PermCath in place - Nephrology on consultation; we appreciate their input IDDM1; poorly controlled - A1c 10 - c/w Levemir and ISS Chronic diabetic left foot ulcer - Wound does not appear to have any active signs of infection - Hemodynamically stable and afebrile - s/p Leukocytosis - c/w Wound care - Podiatry (Dr. Mondragon) on consult; appreciate their input Anemia likely 2/2 to ESRD - Hg at baseline Elevated Alk Phos / Elevated of bilirubin - No specific RUQ tenderness - Liver US 01/06: 1. Wall thickening in the contracted gallbladder. 2. Markedly increased renal parenchymal echotexture, consistent with medical renal disease. - Will continue to trend Hyponatremia - likely 2/2 hypervolemia - Will be dialyzed tomorrow DVT prophylaxis - c/w Heparin Disposition: - Awaiting PFS input VS,[place], I+O VS, [place], I+O Laboratory Tests 01/12/21 11:10 01/13/21 04:59 Vital Signs Date Time Temp Pulse Resp B/P (MAP) Pulse Ox O2 Delivery O2 Flow Rate FiO2 01/13/21 08:52 92 142/90 01/13/21 08:00 98.5 20 97 Room Air I&O- Last 24 Hours up to 6 AM 01/13/21 06:00 Intake Total 800 ml Output Total 400 ml Balance 400 ml JOSE A CONCEPCION MD Jan 13, 2021 10:03
[2021-01-13 12:00] VITALS: BP 137/70
[2021-01-13 17:00] VITALS: BP 142/82
[2021-01-13] MEDS: LEVEMIR (INSULIN DETEMIR) 1 UNITS/0.01ML SC SCH (21:00)
[2021-01-13] MEDS ORDERED: LEVEMIR (INSULIN DETEMIR) 1 UNITS/0.01ML SC ONE (21:50)
[2021-01-13 22:00] VITALS: BP 106/68
[2021-01-14] MEDS ORDERED: diphenhydrAMINE 50MG/ML VIAL (J1200) IM PRN
[2021-01-14] MEDS ORDERED: EPINEPHrine INJ 1 MG/ML 1ML AMP IM PRN
[2021-01-14 06:13] VITALS: BP 131/88
[2021-01-14] MEDS: ASPIRIN 81MG ENTERIC TABLET PO SCH (06:22)
[2021-01-14] MEDS: HEPARIN SOD (PORCINE) 5000UNITS/ML 1ML VIAL/SYRINGE SQ SCH ×3 (06:22→22:05)
[2021-01-14] MEDS: FUROSEMIDE 80 MG TAB PO SCH ×2 (06:23→17:41)
[2021-01-14] MEDS: **hydrALAZINE** 50 MG TAB PO SCH ×2 (06:24→22:06)
[2021-01-14] MEDS: METOPROLOL TARTRATE 100 MG TAB PO SCH ×2 (06:24→22:06)
[2021-01-14] MEDS: NIFEdipine 30 MG XL TAB PO SCH (06:24)
[2021-01-14 06:48] LABS: BASO % 0.4 % (0.0-1.0); EOS # 0.6 10^3/uL (0.0-0.5); HEMATOCRIT 27.5 % (36.0-47.0); LYMPH # 1.6 10^3/uL (1.5-5.0); MEAN CORPUSCULAR HEMOGLOBIN 29.1 pg (27.0-33.0); MEAN CORPUSCULAR HGB CONC 32.7 g/dl (32.0-36.5); MONO # 0.7 10^3/uL (0.0-0.8); MONO % 6.7 % (2.0-8.0); NEUTROPHILS # 7.9 10^3/uL (1.5-8.5); NEUTROPHILS % 72.1 % (36.0-66.0); PLATELET COUNT, AUTOMATED 602 10^3/uL (150-450); RED BLOOD COUNT 3.09 10^6/uL (4.00-5.40); WHITE BLOOD COUNT 10.9 10^3/uL (4.0-10.0)
[2021-01-14 07:24] LABS: ALBUMIN 2.4 GM/DL (3.2-5.2); BILIRUBIN,TOTAL 3.2 MG/DL (0.2-1.0); CALCIUM LEVEL 9.1 MG/DL (8.5-10.1); CREATININE FOR GFR 5.66 MG/DL (0.55-1.30); GLOMERULAR FILTRATION RATE 11.1 (>60); MAGNESIUM LEVEL 2.4 MG/DL (1.8-2.4); POTASSIUM SERUM 4.6 MEQ/L (3.5-5.1); TOTAL PROTEIN 7.2 GM/DL (6.4-8.2)
[2021-01-14] MEDS: HumaLOG INSULIN (NovoLOG) PER UNIT SC SCH ×4 (07:30→21:00)
[2021-01-14] MEDS: (RENVELA) SEVELAMER **CARBONate** 800 MG TAB PO SCH ×3 (07:45→17:41)
--- NOTE | 2021-01-14 09:41 | IPNPDOC ---
Text Note Date of Service The patient was seen on 01/14/21. NOTE Subjective: Patient is a 35-year-old female with a PMHx of ESRD on HD (MWF), HTN, IDDM1 with multiple complications, Hx of Osteomyelitis / Diabetic foot ulcers, Hx of C. diff colitis who presented to emergency Medical Center after she had reported that she could not take any of her medications because her sister with provide them.. On arrival to emergency room, patient was found to be in hypertensive urgency with a SBP greater than 230. She was admitted to the hospital service for further evaluation and treatment. Patient was seen and examined at the bedside. Patient has not had any events overnight. Reports that she feels fine. Denies nausea, vomiting, chest pain, short of breath, palpitations, abdominal pain. Reports that her lower tremors are still so swollen. Objective: Vitals (See below) General: Sitting up in bed, appears to be comfortable, no acute distress HEENT: NC, AT CVS: +S1S2 Lungs: There appears to be fair air entry bilaterally without any evidence of crackles, wheezing or rhonchi Abdomen: Abdomen appears to be soft without distention or tenderness Extremities: 1+ pitting edema bilaterally Assessment and plan: HTN; s/p Hypertensive urgency - Patient is noncompliant with medications - Blood pressure currently well controlled - s/p Labetalol IV - c/w furosemide, hydralazine, metoprolol, nifedipine ESRD on HD (MWF) - Patient has been dialyzed on her regular schedule as an outpatient - Nonfunctioning right arm AV fistula; PermCath in place - Nephrology on consultation; we appreciate their input IDDM1; poorly controlled - Patient is noncompliant with medications - A1c 10 - c/w Levemir and ISS Chronic diabetic left foot ulcer - Wound does not appear to have any active signs of infection - Hemodynamically stable and afebrile - s/p Leukocytosis - c/w Wound care - Podiatry (Dr. Mondragon) on consult; appreciate their input Anemia likely 2/2 to ESRD - Hg at baseline Elevated Alk Phos / Elevated of bilirubin - No specific RUQ tenderness - Liver US 01/06: 1. Wall thickening in the contracted gallbladder. 2. Markedly increased renal parenchymal echotexture, consistent with medical renal disease. - Will continue to trend Hyponatremia - likely 2/2 hypervolemia - Will be dialyzed DVT prophylaxis - c/w Heparin Disposition: - Awaiting PFS input - Will transition to ALC status today VS,[place], I+O VS, Fishbone, I+O Laboratory Tests 01/14/21 06:18 Vital Signs Date Time Temp Pulse Resp B/P (MAP) Pulse Ox O2 Delivery O2 Flow Rate FiO2 01/14/21 06:23 80 131/88 01/14/21 06:13 98.5 18 100 Room Air I&O- Last 24 Hours up to 6 AM 01/14/21 05:59 Intake Total 1490 ml Balance 1490 ml JOSE A CONCEPCION MD Jan 14, 2021 09:41
[2021-01-14] MEDS ORDERED: COVID-19 VAC,AD26(JANSSEN)/PF 0.5ML SYRINGE (EUA) IM ONE (10:00)
[2021-01-14] MEDS: DARBEPOETIN 200MCG/0.4ML *DIALYSIS* SYRINGE (J0882 PER 1MCG) IV SCH (10:14)
--- NOTE | 2021-01-14 10:41 | CR ---
CONSULTATION DATE: 01/13/2021 REQUESTING PHYSICIAN: JOSE A CONCEPCION MD REASON FOR CONSULTATION: Management of endstage renal disease and hemodialysis. CHIEF COMPLAINT: The patient presented to the hospital yesterday because of elevated blood pressures, uncontrolled diabetes and noncompliance with medications. HISTORY OF PRESENT ILLNESS: Narcisa Mireles is a 35-year-old female with a past medical history of endstage renal disease on hemodialysis q. Thursday, Thursday and Thursday, hypertension, Type 1 diabetic with diabetic foot ulcers, chronically noncompliant with medications. She recently became homeless and she is a single parent. She was not taking her medications. She presented to the hospital yesterday because of uncontrolled blood pressures and uncontrolled sugars and left foot ulcer. She was admitted to the Hospitalist service yesterday because of hypertensive urgency, uncontrolled diabetes and social issues and being homeless. Nephrology was called for further help in the management of this patient. I saw and evaluated the patient today morning at the bedside. She has already been started on her home medications. Blood pressure is significantly better today as compared with yesterday and glucose is also better controlled after starting her insulin regimen. PAST MEDICAL HISTORY: Hypertension, history of endstage renal disease on dialysis q. Thursday, Thursday and Thursday, diabetes mellitus Type 1, pulmonary hypertension, thrombocytosis, diabetic foot ulcers, osteomyelitis. PAST SURGICAL HISTORY: Status post AV fistula, status post , bilateral fifth metatarsal head excisions because of osteomyelitis, history of brain surgery for a cyst. ALLERGIES: She is allergic to tape, Cinacalcet, latex, morphine and peanuts. FAMILY HISTORY: Positive for diabetes and hypertension. SOCIAL HISTORY: Patient denies any smoking, illicit drug abuse or alcohol abuse. She is noncompliant with her medication. She is currently homeless. REVIEW OF SYSTEMS: Constitutional: She denies any fevers or chills. Eyes: She denies any blurry vision or double vision. ENT: She denies any dysphagia or odynophagia. Cardiovascular: She denies any chest pain or palpitations. Respiratory: She denies any shortness of breath. GI: Denies any nausea or vomiting. Genitourinary: She denies any dysuria or hematuria. Musculoskeletal: She reports left foot ulcer. Hematologic and oncologic: She denies any easy bleeding or bruising. Psych: She does report mild depression. 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 All other review of systems is negative. PHYSICAL EXAMINATION: GENERAL: The patient is awake, alert and oriented x3 laying in bed. VITAL SIGNS: Temperature is 98.1 degrees Fahrenheit, blood pressure is 142/82, pulse is 75, respiratory rate is 78, saturating 98% on room air. INTAKE AND OUTPUT: Urine output recorded as 400 ml yesterday. HEAD AND NECK: Extraocular muscles are intact. Pupils equally round and reactive to light. Mucous membranes are moist. NECK: Supple. She has a tunneled hemodialysis catheter. CARDIOVASCULAR: S1 and S2, regular rate. Trace edema of the bilateral lower extremities. RESPIRATORY: Chest is clear to auscultation bilaterally. Bilateral equal air entry. No rales or rhonchi. ABDOMEN: Soft, obese, positive bowel sounds, nontender. No organomegaly. MUSCULOSKELETAL: She has a dressing on the left foot because of a left foot ulcer. GREENHOUSE SUPERINTENDENT: No focal deficit. Power is 5/5 in all extremities. LABORATORY DATA: CBC showed a WBC of 9.8, hemoglobin 8.1, platelets are 536,000. BMP showed a sodium of 132, potassium of 3.5, chloride 93, bicarbonate 32, BUN 31, creatinine is 4.4. Albumin is 2.2. Microbiology: Cultures are negative so far. IMAGING: A chest x-ray was done yesterday, it showed no cardiopulmonary process. CURRENT INPATIENT: The patient's medications were all reviewed by myself. She is currently on Tylenol p.r.n., Amlodipine 10 mg daily, aspirin 81 mg daily, Aranesp 200 mcg with dialysis, Lasix 80 mg p.o. twice a day, heparin sub q., hydralazine 100 mg p.o. twice a day, insulin Levemir 25 units q.h.s., 13 units were given in the morning, she is on insulin Lispro sliding scale, metoprolol 100 mg p.o. twice a day, Nifedipine 90 mg p.o. daily, Renvela 1600 mg p.o. with meals. ASSESSMENT AND PLAN: 1. Endstage renal disease, patient is dialyzed Thursday, Thursday and Thursday. She will be dialyzed according to a regular schedule tomorrow morning. 2. Hypertensive urgency, it is secondary to noncompliance with medications. Continue current dose of antihypertensive regimen. However, the patient is on two calcium channel blockers. I am going to try to wean her off of one of the calcium channel blockers. It is okay to continue hydralazine. 3. Chronic kidney disease, mineral bone disease. Continue current dose of Renvela with meals. 4. Anemia and endstage renal disease, continue current dose of Aranesp with dialysis. 5. Insulin dependent diabetes with left foot ulcer. Glucose is better controlled with the use of insulin now. 6. Left foot ulcer and history of osteomyelitis in the foot, therefore the patient is not currently on any antibiotics. She needs to be seen by Podiatry during this hospitalization. 7. Social issues including patient's noncompliance with medication and patient being homeless at this time. Nuclear Pharmacist on board. Patient needs placement as an outpatient after discharge from the hospital.
[2021-01-14] MEDS: LACTIC ACID 12% LOTION 225 GM BTL TOP SCH (13:17)
--- NOTE | 2021-01-14 20:32 | IPN ---
NEPHROLOGY PROGRESS NOTE DATE: 01/14/2021 SUBJECTIVE: Patient was seen and examined at the bedside today morning during hemodialysis procedure. She is tolerating the hemodialysis procedure well. Her blood pressures are significantly better now with the medications and glucose levels are also within the acceptable range. OBJECTIVE: VITAL SIGNS: Temperature 98.5 degrees Fahrenheit, blood pressure 131/88, pulse 75, respiratory rate 18, sating 100% on room air. INTAKE/OUTPUT: Urine output is not recorded. Weight in the bed scale was 90.9 kg yesterday. PHYSICAL EXAMINATION: GENERAL: Patient is awake, alert, oriented x3, lying in bed getting hemodialysis done. HEAD/NECK: Extraocular muscles intact. Pupils equally round and reactive to light. Mucous membranes are moist. Neck is supple. She has a tunneled hemodialysis catheter. RESPIRATORY: Chest is clear to auscultation bilaterally. Bilateral equal air entry. No rales or rhonchi. CARDIOVASCULAR: S1, S2, regular rate. Trace edema of bilateral lower extremities. ABDOMEN: Soft, positive bowel sounds, nontender. No organomegaly. MUSCULOSKELETAL: She has a dressing on the left foot. INVESTMENT ANALYST: No focal deficit. Power is 5/5 in all extremities. LABORATORY DATA: CBC showed WBC 10.9, hemoglobin 9, platelets 602,000. BMP showed sodium 130, potassium 4.6, chloride 92, bicarb 29, BUN 39, creatinine 5.6. Albumin 2.4. CURRENT INPATIENT MEDICATIONS: Patient's medications were all reviewed by myself. No significant change in the medications except that I have stopped her Amlodipine and I have started the patient on Isosorbide. ASSESSMENT AND PLAN: 1. End-stage renal disease: Patient is being dialyzed according to her regular schedule. Ultrafiltration goal will be 4 liters as tolerated by her blood pressure. 2. Hypertension: Blood pressure is better controlled with the current regimen, however, patient is on two calcium channel blockers. Amlodipine has been stopped. She continues to be on Hydralazine. Isosorbide has been added. 3. Anemia and end-stage renal disease: Continue Aranesp with dialysis. Hemoglobin level is stable and improving. 4. Left foot infection: She was seen by podiatry. Currently she is not on any I.V. antibiotics. 5. Diabetes mellitus type 1: Patient is currently on Levemir and insulin Lispro. Glucose levels are well controlled. 6. Chronic kidney disease/mineral bone disease: Continue current dose of Renvela.
[2021-01-14] MEDS: LEVEMIR (INSULIN DETEMIR) 1 UNITS/0.01ML SC SCH (22:05)
[2021-01-15] MEDS: HEPARIN SOD (PORCINE) 5000UNITS/ML 1ML VIAL/SYRINGE SQ SCH ×3 (05:29→20:45)
[2021-01-15 06:00] VITALS: BP 146/82
[2021-01-15 06:58] LABS: BASO % 0.4 % (0.0-1.0); EOS # 0.4 10^3/uL (0.0-0.5); EOS % 4.3 % (0.0-3.0); HEMATOCRIT 27.4 % (36.0-47.0); HEMOGLOBIN 8.7 g/dl (12.0-15.5); LYMPH # 1.1 10^3/uL (1.5-5.0); LYMPH % 11.7 % (24.0-44.0); MEAN CORPUSCULAR HEMOGLOBIN 29.2 pg (27.0-33.0); MEAN CORPUSCULAR HGB CONC 31.8 g/dl (32.0-36.5); MEAN CORPUSCULAR VOLUME 91.9 fl (80.0-96.0); MONO # 0.6 10^3/uL (0.0-0.8); MONO % 6.7 % (2.0-8.0); NEUTROPHILS # 7.3 10^3/uL (1.5-8.5); NEUTROPHILS % 76.2 % (36.0-66.0); PLATELET COUNT, AUTOMATED 562 10^3/uL (150-450); RED BLOOD COUNT 2.98 10^6/uL (4.00-5.40); WHITE BLOOD COUNT 9.5 10^3/uL (4.0-10.0)
[2021-01-15 07:40] LABS: ALBUMIN 2.4 GM/DL (3.2-5.2); BILIRUBIN,TOTAL 2.3 MG/DL (0.2-1.0); CALCIUM LEVEL 8.5 MG/DL (8.5-10.1); CREATININE FOR GFR 4.07 MG/DL (0.55-1.30); GLOMERULAR FILTRATION RATE 16.3 (>60); MAGNESIUM LEVEL 2.4 MG/DL (1.8-2.4)
[2021-01-15] MEDS: HumaLOG INSULIN (NovoLOG) PER UNIT SC SCH ×4 (08:08→20:46)
[2021-01-15] MEDS: (RENVELA) SEVELAMER **CARBONate** 800 MG TAB PO SCH ×3 (08:08→18:47)
[2021-01-15 08:10] VITALS: BP 162/99
[2021-01-15] MEDS: ACETAMINOPHEN TAB 650MG DOSE (2X325MG) PO PRN (08:10)
[2021-01-15] MEDS: ISOSORBIDE MON. (IMDUR) 60 MG XR TAB PO SCH (08:10)
[2021-01-15] MEDS: ASPIRIN 81MG ENTERIC TABLET PO SCH (08:11)
[2021-01-15] MEDS: **hydrALAZINE** 50 MG TAB PO SCH ×2 (08:11→21:49)
[2021-01-15] MEDS: NIFEdipine 30 MG XL TAB PO SCH (08:11)
[2021-01-15] MEDS: FUROSEMIDE 80 MG TAB PO SCH ×2 (08:12→18:47)
[2021-01-15] MEDS: LACTIC ACID 12% LOTION 225 GM BTL TOP SCH (08:12)
[2021-01-15] MEDS: METOPROLOL TARTRATE 100 MG TAB PO SCH ×2 (08:12→21:49)
--- NOTE | 2021-01-15 20:49 | IPNPDOC ---
Text Note Date of Service The patient was seen on 01/15/21. NOTE time of service 720pm I was informed by the patient's RN Melisa that the patient had swollen areas on her abdomen where she had received heparin along with another round swollen area on her left upper arm; she felt that these raised lesions may be due to heparin and asked if we can hold the medication. I examined the patient who reported that the round swollen lesions are new. PE: seated up in hospital bed eating dinner/ appears comfortable / there is a round raised lesion at the left upper arm Hg 8.7, Plt 562, INR 1.10, BUN 27 # Round raised lesions cause TBD Not sure if these are hematomas ? Plan: hold heparin tonight / f/u US of the left upper arm / will let know VS,Kiana, I+O VSKiana, I+O Laboratory Tests 01/15/21 06:24 Vital Signs Date Time Temp Pulse Resp B/P (MAP) Pulse Ox O2 Delivery O2 Flow Rate FiO2 01/15/21 08:12 80 162/99 01/15/21 08:10 100.3 18 Room Air 01/15/21 06:00 100 I&O- Last 24 Hours up to 6 AM 01/15/21 06:00 Intake Total 2230 ml Output Total 4000 ml Balance -1770 ml MICHAEL GOLD MD Jan 15, 2021 20:49
[2021-01-15] MEDS: LEVEMIR (INSULIN DETEMIR) 1 UNITS/0.01ML SC SCH (21:49)
--- NOTE | 2021-01-15 22:37 | REPVR ---
PROCEDURE INFORMATION: Exam: US Left Non-Vascular Joint or Other Extremity Structure Exam date and time: 01/15/2021 10:08 PM Age: 35 years old Clinical indication: Swelling; Elbow; Left; Additional info: Left arm swelling. R/O hematoma. TECHNIQUE: Imaging protocol: Left US joint or other nonvascular extremity structure or structures. Real-time ultrasound with image documentation. Limited study. Exam focused on the upper extremity in the region of clinical interest. COMPARISON: CR HAND COMPLETE 05/26/2014 4:33 PM FINDINGS: Soft tissues: In the left antecubital region, there is a 1.7 cm x 1.2 cm x 0.5 cm hypoechoic fluid collection. There is also a 1.3 cm x 0.3 cm x 0.9 cm hypoechoic fluid collection in the soft tissues deeper to the fluid collection mentioned above. There is soft tissue swelling and edema in this region. IMPRESSION: 1.7 cm x 1.2 cm x 0.5 cm and 1.3 cm x 0.3 cm x 0.9 cm fluid collections in the left antecubital region, which may represent hematomas. Electronically signed by: Garland Love On 01/15/2021 22:36:59 PM
[2021-01-16] MEDS: HEPARIN SOD (PORCINE) 5000UNITS/ML 1ML VIAL/SYRINGE SQ SCH ×2 (02:33→14:00)
[2021-01-16] MEDS ORDERED: ONDANSETRON 4MG/2ML VIAL IV ONE (06:45)
[2021-01-16] MEDS ORDERED: ONDANSETRON 4 MG ORAL DISINTEGRATING TAB PO ONE (06:55)
[2021-01-16] MEDS: ACETAMINOPHEN TAB 650MG DOSE (2X325MG) PO PRN (06:59)
[2021-01-16] MEDS: NIFEdipine 30 MG XL TAB PO SCH (07:00)
[2021-01-16] MEDS: ASPIRIN 81MG ENTERIC TABLET PO SCH (07:00)
[2021-01-16] MEDS: **hydrALAZINE** 50 MG TAB PO SCH ×2 (07:01→21:31)
[2021-01-16] MEDS: ISOSORBIDE MON. (IMDUR) 60 MG XR TAB PO SCH (07:01)
[2021-01-16] MEDS: FUROSEMIDE 80 MG TAB PO SCH ×2 (07:01→18:24)
[2021-01-16] MEDS: METOPROLOL TARTRATE 100 MG TAB PO SCH ×2 (07:02→21:32)
[2021-01-16 07:33] LABS: INR 0.91; PROTHROMBIN TIME 12.5 SECONDS (12.5-14.3)
[2021-01-16] MEDS: (RENVELA) SEVELAMER **CARBONate** 800 MG TAB PO SCH ×3 (07:57→18:24)
[2021-01-16] MEDS: LACTIC ACID 12% LOTION 225 GM BTL TOP SCH (07:58)
[2021-01-16] MEDS: HumaLOG INSULIN (NovoLOG) PER UNIT SC SCH ×4 (07:58→21:00)
--- NOTE | 2021-01-16 10:02 | IPN ---
NEPHROLOGY PROGRESS NOTE DATE: 01/15/2021 SUBJECTIVE: Patient was seen and examined at the bedside today morning. She is afebrile, hemodynamically stable. Blood pressure is well controlled. She was dialyzed yesterday. She tolerated the hemodialysis procedure well. OBJECTIVE: VITAL SIGNS: Temperature 99.3 degrees Fahrenheit, blood pressure 146/82, pulse 79 respiratory rate 17, saturating 100% on room air. INTAKE AND OUTPUT: Urine output is not recorded well. Weight in the bed scale is not available. Ultrafiltration with hemodialysis was 4 liters yesterday. PHYSICAL EXAMINATION: GENERAL: Patient is awake, alert, oriented x3, lying in bed in no apparent distress. HEAD/NECK: Extraocular muscles intact. Pupils equally round and reactive to light. Mucous membranes are moist. Neck is supple. There is no JVD. She has a tunneled hemodialysis catheter. CARDIOVASCULAR: S1, S2, regular rate. 1+ edema of the bilateral ankles. RESPIRATORY: Chest is clear to auscultation bilaterally. Bilateral equal air entry. No rales or rhonchi. ABDOMEN: Soft, positive bowel sounds, nontender. No organomegaly. MUSCULOSKELETAL: She has a dressing on the left foot. PHYSICIAN CODING SPECIALIST: No focal deficit. Power is 5/5 in all extremities. LABORATORY REVIEW: CBC showed WBC 9.5, hemoglobin 8.7, platelets 562,000. BMP showed sodium 133, potassium 4, chloride 95, bicarb 28, BUN 27, creatinine 4. Albumin 2.4. MICROBIOLOGY: Blood cultures are negative so far. CURRENT INPATIENT MEDICATIONS: Patient's medications were all reviewed by myself. No significant change in the medications today as compared with yesterday. ASSESSMENT AND PLAN: 1. End-stage renal disease: Patient was dialyzed yesterday. Next hemodialysis will be tomorrow morning as tolerated by her blood pressure. I would remove at least 4 liters of fluid. 2. Hypertension: Amlodipine was stopped. She is currently on Nifedipine, Hydralazine, Isosorbide and beta-sariah. 3. Anemia and end-stage renal disease: Continue current dose of Aranesp. 4. Left foot infection: Patient is being seen by podiatry, currently not on any antibiotics. If she develops any fever, then antibiotics will be stopped. 5. Diabetes mellitus type 1: Continue insulin Levemir and sliding scale.
--- NOTE | 2021-01-16 21:23 | IPN ---
PROGRESS NOTE DATE: 01/16/2021 SUBJECTIVE: Patient was seen and examined at the bedside today morning. She is afebrile, hemodynamically stable. Today is patient's regular day of dialysis. She denies any active complaints. OBJECTIVE: VITAL SIGNS: Temperature 99 degrees Fahrenheit, blood pressure 159/83, pulse 84, respiratory rate 18, saturating 99% on room air. INTAKE AND OUTPUT: There is no urine output recorded. Weight in the bed scale is not available. PHYSICAL EXAMINATION: GENERAL: Patient is awake, alert, oriented x3, lying in bed in no apparent distress. HEAD/NECK: Extraocular muscles intact. Pupils equally round and reactive to light. Neck is supple. She has a tunneled hemodialysis catheter. CARDIOVASCULAR: S1, S2, regular rate. Trace edema of bilateral lower extremities. RESPIRATORY: Chest is clear to auscultation bilaterally. Bilateral equal air entry. No rales or rhonchi. ABDOMEN: Soft, positive bowel sounds, nontender. No organomegaly. MUSCULOSKELETAL: She has a dressing on the left foot. FRUIT GRADER OPERATOR: No focal deficit. Power is 5/5 in all extremities. LABORATORY REVIEW: CBC is from yesterday with hemoglobin of 8.7 and BMP is also from yesterday with potassium of 4. CURRENT INPATIENT MEDICATIONS: Patient's medications were all reviewed by myself. There is no significant change in the medications today as compared with yesterday. ASSESSMENT AND PLAN: 1. End-stage renal disease: Today is patient's regular day of dialysis. She will be dialyzed and 4 kg of fluid will be removed. 2. Anemia and end-stage renal disease: Hemoglobin level is slightly suboptimal. Continue current dose of Aranesp with dialysis. 3. Hypertension: Blood pressure is better controlled with current antihypertensive regimen. Volume status is optimized with dialysis. 4. Left foot infection: Patient is being seen by podiatry and wound care is done with nursing. 5. Diabetes mellitus type 1: Continue insulin sliding scale and Levemir.
[2021-01-16] MEDS: LEVEMIR (INSULIN DETEMIR) 1 UNITS/0.01ML SC SCH (21:32)
[2021-01-17] MEDS: ACETAMINOPHEN TAB 650MG DOSE (2X325MG) PO PRN (01:56)
[2021-01-17 06:00] VITALS: BP 162/86
[2021-01-17] MEDS: HumaLOG INSULIN (NovoLOG) PER UNIT SC SCH ×5 (08:25→20:29)
[2021-01-17] MEDS: (RENVELA) SEVELAMER **CARBONate** 800 MG TAB PO SCH ×4 (08:25→16:49)
[2021-01-17] MEDS: ASPIRIN 81MG ENTERIC TABLET PO SCH (08:27)
[2021-01-17] MEDS: LACTIC ACID 12% LOTION 225 GM BTL TOP SCH (08:27)
[2021-01-17] MEDS: FUROSEMIDE 80 MG TAB PO SCH ×2 (08:28→17:37)
[2021-01-17] MEDS: METOPROLOL TARTRATE 100 MG TAB PO SCH ×2 (08:29→20:40)
[2021-01-17] MEDS: ISOSORBIDE MON. (IMDUR) 60 MG XR TAB PO SCH (08:29)
[2021-01-17] MEDS: NIFEdipine 30 MG XL TAB PO SCH (08:30)
[2021-01-17] MEDS: **hydrALAZINE** 50 MG TAB PO SCH ×2 (08:30→20:39)
--- NOTE | 2021-01-17 15:01 | IPNPDOC ---
Date Seen The patient was seen on 01/17/21. Progress Note SUBJECTIVE: 35-year-old female with a PMHx of ESRD on HD (MWF), HTN, IDDM1 with multiple complications, Hx of Osteomyelitis / Diabetic foot ulcers, Hx of C. diff colitis who presented [facility] after she had reported that she could not take any of her medications because her sister with provide them.. On arrival to emergency room, patient was found to be in hypertensive urgency with a SBP greater than 230. She was admitted to the hospital service for further evaluation and treatment. patient was seen and examined at bedside. Doing well. No acute events overnight. Denies fevers, chills, nausea, vomiting, chest pain, shortness of breath or palpitations. She is working with RN improving health literacy and management of her DM in terms of accuchecks and insulin injections at home. Developed subcutaneous firm nodules on abdominal wall and at site of cubital venipuncture on L arm. Not increasing in size per patient and not painful. OBJECTIVE PHYSICAL EXAMINATION: VITAL SIGNS: please see below General: NAD, comfortable HEENT: PERRLA, EOMI, sclerae clear Neck: supple, normal ROM, no JVD Respiratory: lungs CTAB, no wheeze, no rales, no crackles CVS: RRR, normal S1, S2, no murmurs Abdo: soft, no masses, no hepatosplenomegaly, BS+, no rebound tenderness Extremities: no edema, pulses 2+ MSK: L foot wound on plantar surface. L 5h toe distal eschar. Neuro: no focal neuro deficits, moving all 4 extremities, CN2-12 intact. Strength 5/5 in all 4 extremities. No nystagmus. Psych: calm, cooperative, AAO x 3 LABORATORY DATA, IMAGING STUDIES, MICROBIOLOGY: Please see below. DVT prophylaxis ordered?: heparin ASSESSMENT AND PLAN: HTN; s/p Hypertensive urgency - Patient is noncompliant with medications - Blood pressure elevate today, will give additional dose of losartan 100 mg. - s/p Labetalol IV - c/w furosemide, hydralazine, metoprolol, nifedipine ESRD on HD (MWF) - Patient has been dialyzed on her regular schedule as an outpatient - Nonfunctioning right arm AV fistula; PermCath in place - Nephrology on consultation; we appreciate their input - next HD on 3/19/21 IDDM1; poorly controlled - Patient is noncompliant with medications - A1c 10 - c/w Levemir and ISS - training with child life specialist diabetic left foot ulcer - Wound does not appear to have any active signs of infection - Hemodynamically stable and afebrile - s/p Leukocytosis - c/w Wound care - Podiatry (Dr. Mondragon) on consult; appreciate their input - partial weight bearing Subcutaenous hematomas - largest in size in ~3 cm - non tender - suspect 2/2 heparin use - will c/w TEDs and SCDs. Heparin has been DC. Anemia likely 2/2 to ESRD - Hg at baseline Elevated Alk Phos / Elevated of bilirubin - No specific RUQ tenderness - Liver US 01/06: 1. Wall thickening in the contracted gallbladder. 2. Markedly increased renal parenchymal echotexture, consistent with medical renal disease. - Will continue to trend Hyponatremia - likely 2/2 hypervolemia - Will be dialyzed DVT prophylaxis - c/w Heparin Disposition: - Awaiting PFS input - Will transition to ALC status today VS, I&O, 24H, Fishbone Vital Signs/I&O Vital Signs Date Time Temp Pulse Resp B/P (MAP) Pulse Ox O2 Delivery O2 Flow Rate FiO2 01/17/21 08:29 78 192/106 01/17/21 06:00 98.3 17 95 Room Air I&O- Last 24 Hours up to 6 AM 01/17/21 05:59 Intake Total 1605 ml Output Total 4000 ml Balance -2395 ml Laboratory Data 24H LABS Laboratory Tests 2 01/16/21 16:29: Bedside Glucose (Misc Panel) 95 01/16/21 19:54: Bedside Glucose (Misc Panel) 204H 01/17/21 06:20: Bedside Glucose (Misc Panel) 227H 01/17/21 11:07: Bedside Glucose (Misc Panel) 152H Microbiology Microbiology 01/12/21 Blood Culture - Preliminary, Resulted No Growth after 72 hours. All specime... 01/12/21 Blood Culture - Final, Complete NO GROWTH AFTER 5 DAYS REID PRESLEY MD Jan 17, 2021 15:01
[2021-01-17] MEDS ORDERED: **hydrALAZINE** 50 MG TAB PO ONE (15:15)
[2021-01-17 15:35] LABS: BASO # 0.1 10^3/uL (0.0-0.2); BASO % 0.6 % (0.0-1.0); EOS # 0.4 10^3/uL (0.0-0.5); HEMOGLOBIN 8.6 g/dl (12.0-15.5); LYMPH # 1.3 10^3/uL (1.5-5.0); LYMPH % 12.3 % (24.0-44.0); MEAN CORPUSCULAR HEMOGLOBIN 29.8 pg (27.0-33.0); MEAN CORPUSCULAR HGB CONC 31.9 g/dl (32.0-36.5); MEAN CORPUSCULAR VOLUME 93.4 fl (80.0-96.0); MONO # 0.8 10^3/uL (0.0-0.8); MONO % 7.3 % (2.0-8.0); NEUTROPHILS # 7.9 10^3/uL (1.5-8.5); NEUTROPHILS % 75.1 % (36.0-66.0); PLATELET COUNT, AUTOMATED 522 10^3/uL (150-450); RED BLOOD COUNT 2.89 10^6/uL (4.00-5.40); WHITE BLOOD COUNT 10.6 10^3/uL (4.0-10.0)
[2021-01-17 16:12] LABS: ALBUMIN 2.4 GM/DL (3.2-5.2); BILIRUBIN,TOTAL 2.3 MG/DL (0.2-1.0); CALCIUM LEVEL 8.5 MG/DL (8.5-10.1); CREATININE FOR GFR 4.18 MG/DL (0.55-1.30); GLOMERULAR FILTRATION RATE 15.8 (>60); POTASSIUM SERUM 4.8 MEQ/L (3.5-5.1); TOTAL PROTEIN 7.2 GM/DL (6.4-8.2)
[2021-01-17] MEDS: LEVEMIR (INSULIN DETEMIR) 1 UNITS/0.01ML SC SCH (20:39)
[2021-01-18] MEDS ORDERED: diphenhydrAMINE 25MG CAP PO ONE (00:05)
[2021-01-18 06:00] VITALS: BP 142/79
[2021-01-18] MEDS: ASPIRIN 81MG ENTERIC TABLET PO SCH (06:25)
[2021-01-18] MEDS: **hydrALAZINE** 50 MG TAB PO SCH ×2 (06:26→19:49)
[2021-01-18] MEDS: FUROSEMIDE 80 MG TAB PO SCH ×2 (06:27→18:05)
[2021-01-18] MEDS: ISOSORBIDE MON. (IMDUR) 60 MG XR TAB PO SCH (06:27)
[2021-01-18] MEDS: METOPROLOL TARTRATE 100 MG TAB PO SCH ×2 (06:28→19:50)
[2021-01-18] MEDS: NIFEdipine 30 MG XL TAB PO SCH (06:29)
[2021-01-18 06:47] LABS: BASO # 0.1 10^3/uL (0.0-0.2); BASO % 0.5 % (0.0-1.0); EOS # 0.4 10^3/uL (0.0-0.5); EOS % 3.7 % (0.0-3.0); HEMATOCRIT 26.1 % (36.0-47.0); HEMOGLOBIN 8.4 g/dl (12.0-15.5); LYMPH # 1.6 10^3/uL (1.5-5.0); LYMPH % 14.5 % (24.0-44.0); MEAN CORPUSCULAR HEMOGLOBIN 29.2 pg (27.0-33.0); MEAN CORPUSCULAR HGB CONC 32.2 g/dl (32.0-36.5); MEAN CORPUSCULAR VOLUME 90.6 fl (80.0-96.0); MONO # 0.9 10^3/uL (0.0-0.8); MONO % 8.1 % (2.0-8.0); NEUTROPHILS # 7.9 10^3/uL (1.5-8.5); NEUTROPHILS % 72.6 % (36.0-66.0); PLATELET COUNT, AUTOMATED 516 10^3/uL (150-450); RED BLOOD COUNT 2.88 10^6/uL (4.00-5.40); WHITE BLOOD COUNT 10.9 10^3/uL (4.0-10.0)
[2021-01-18 07:21] LABS: ALBUMIN 2.4 GM/DL (3.2-5.2); BILIRUBIN,TOTAL 2.7 MG/DL (0.2-1.0); CALCIUM LEVEL 8.6 MG/DL (8.5-10.1); CREATININE FOR GFR 4.84 MG/DL (0.55-1.30); GLOMERULAR FILTRATION RATE 13.3 (>60); MAGNESIUM LEVEL 2.5 MG/DL (1.8-2.4); TOTAL PROTEIN 7.1 GM/DL (6.4-8.2)
[2021-01-18] MEDS: HumaLOG INSULIN (NovoLOG) PER UNIT SC SCH ×4 (07:30→19:51)
[2021-01-18] MEDS ORDERED: DEXTROSE 50% 50 ML SYRINGE IV STA (08:03)
[2021-01-18] MEDS: (RENVELA) SEVELAMER **CARBONate** 800 MG TAB PO SCH ×3 (08:18→18:05)
[2021-01-18] MEDS: LACTIC ACID 12% LOTION 225 GM BTL TOP SCH (08:19)
[2021-01-18 09:09] LABS: C REACTIVE PROTEIN QUANTITATIV 2.4 MG/DL (0.00-0.30)
--- NOTE | 2021-01-18 09:11 | REP ---
INDICATION: wound plantar surface, L 5th toe. COMPARISON: Comparison radiograph 01 December 2020.. TECHNIQUE: Four views. FINDINGS: Four views of the right foot demonstrate a transmetatarsal osteotomy through the proximal and of the 5th metatarsal. The proximal half of the proximal phalanx of the 5th toe is also been removed. There is periosteal reaction about the distal end of the 5th metatarsal. No acute erosive changes visible on today's radiographs.. No fracture or subluxation is seen. No opaque foreign body noted. No soft tissue gas is present. IMPRESSION: Interval transmetatarsal osteotomy and resection 5th metatarsal and 5th proximal phalanx. Periosteal reaction at the transmetatarsal osteotomy. No definite acute erosive changes seen.. <Electronically signed by Kip Rizzo > 01/18/21 0990
[2021-01-18 09:24] LABS: PERCENT SATURATION 17.6 % (13.2-45.0)
[2021-01-18 10:46] LABS: ERYTHROCYTE SEDIMENTATION RATE 126 mm/hr (0-20)
[2021-01-18] MEDS: IRON SUCROSE 100MG 5ML VIAL (J1756 PER 1MG) IV SCH (13:24)
[2021-01-18] MEDS: CALCITRIOL 0.25 MCG CAP (S0169) PO SCH (19:50)
[2021-01-18] MEDS: LEVEMIR (INSULIN DETEMIR) 1 UNITS/0.01ML SC SCH (20:12)
--- NOTE | 2021-01-18 23:33 | IPNPDOC ---
Date Seen The patient was seen on 01/18/21. Progress Note SUBJECTIVE: 35-year-old female with a PMHx of ESRD on HD (MWF), HTN, IDDM1 with multiple complications, Hx of Osteomyelitis / Diabetic foot ulcers, Hx of C. diff colitis who presented [facility] emergency [facility] after she had reported that she could not take any of her medications because her sister with provide them.. On arrival to emergency room, patient was found to be in hypertensive urgency with a SBP greater than 230. She was admitted to the hospital service for further evaluation and treatment. patient was seen and examined at bedside. Doing well. No acute events overnight. Denies fevers, chills, nausea, vomiting, chest pain, shortness of breath or palpitations. She is working with RN improving health literacy and management of her DM in terms of accuchecks and insulin injections at home. Developed subcutaneous firm nodules on abdominal wall and at site of cubital venipuncture on L arm. Not increasing in size per patient and not painful. OBJECTIVE PHYSICAL EXAMINATION: VITAL SIGNS: please see below General: NAD, comfortable HEENT: PERRLA, EOMI, sclerae clear Neck: supple, normal ROM, no JVD Respiratory: lungs CTAB, no wheeze, no rales, no crackles CVS: RRR, normal S1, S2, no murmurs Abdo: soft, no masses, no hepatosplenomegaly, BS+, no rebound tenderness Extremities: no edema, pulses 2+ MSK: L foot wound on plantar surface. L 5h toe distal eschar. Neuro: no focal neuro deficits, moving all 4 extremities, CN2-12 intact. Strength 5/5 in all 4 extremities. No nystagmus. Psych: calm, cooperative, AAO x 3 LABORATORY DATA, IMAGING STUDIES, MICROBIOLOGY: Please see below. DVT prophylaxis ordered?: heparin ASSESSMENT AND PLAN: HTN; s/p Hypertensive urgency - Patient is noncompliant with medications - Blood pressure elevate today, will give additional dose of losartan 100 mg. - s/p Labetalol IV - c/w furosemide, hydralazine, metoprolol, nifedipine ESRD on HD (MWF) - Patient has been dialyzed on her regular schedule as an outpatient - Nonfunctioning right arm AV fistula; PermCath in place - Nephrology on consultation; we appreciate their input - next HD on 3/19/21 IDDM1; poorly controlled - Patient is noncompliant with medications - A1c 10 - c/w Levemir and ISS - training with second operator diabetic left foot ulcer - Wound does not appear to have any active signs of infection - Hemodynamically stable and afebrile - s/p Leukocytosis - c/w Wound care - Podiatry (Dr. Mondragon) on consult; appreciate their input - partial weight bearing Subcutaenous hematomas - largest in size in ~3 cm - non tender - suspect 2/2 heparin use - will c/w TEDs and SCDs. Heparin has been DC. Anemia likely 2/2 to ESRD - Hg at baseline Elevated Alk Phos / Elevated of bilirubin - No specific RUQ tenderness - Liver US 01/06: 1. Wall thickening in the contracted gallbladder. 2. Markedly increased renal parenchymal echotexture, consistent with medical renal disease. - Will continue to trend Hyponatremia - likely 2/2 hypervolemia - Will be dialyzed DVT prophylaxis - c/w Heparin Disposition: - Awaiting PFS input VS, I&O, 24H, Fishbone Vital Signs/I&O Vital Signs Date Time Temp Pulse Resp B/P (MAP) Pulse Ox O2 Delivery O2 Flow Rate FiO2 01/18/21 19:50 86 157/88 01/18/21 06:00 98.2 18 93 Room Air I&O- Last 24 Hours up to 6 AM 01/18/21 06:00 Intake Total 840 ml Output Total 0 ml Balance 840 ml Laboratory Data 24H LABS Laboratory Tests 2 01/18/21 06:23: Immature Granulocyte % (Auto) 0.6, Neutrophils (%) (Auto) 72.6H, Lymphocytes (%) (Auto) 14.5L, Monocytes (%) (Auto) 8.1H, Eosinophils (%) (Auto) 3.7H, Basophils (%) (Auto) 0.5, Neutrophils # (Auto) 7.9, Lymphocytes # (Auto) 1.6, Monocytes # (Auto) 0.9H, Eosinophils # (Auto) 0.4, Basophils # (Auto) 0.1, Nucleated Red Blood Cells % (auto) 0.0, Erythrocyte Sedimentation Rate 126H, Anion Gap 7L, Glomerular Filtration Rate 13.3L, Calcium Level 8.6, Magnesium Level 2.5H, Iron Level 44L, Total Iron Binding Capacity 250, Transferrin % Saturation 17.6, Ferritin 853H, Total Bilirubin 2.7H, Aspartate Amino Transf (AST/SGOT) 43H, Alanine Aminotransferase (ALT/SGPT) 33, Alkaline Phosphatase 947H, C-Reactive Protein, Quantitative 2.40H, Total Protein 7.1, Albumin 2.4L, Albumin/Globulin Ratio 0.5L, Parathyroid Hormone (Intact) 664.0H 01/18/21 07:20: Bedside Glucose (Misc Panel) 41L 01/18/21 07:58: Bedside Glucose (Misc Panel) 61L 01/18/21 09:22: Bedside Glucose (Misc Panel) 97 01/18/21 12:00: Bedside Glucose (Misc Panel) 130H 01/18/21 17:33: Bedside Glucose (Misc Panel) 55L 01/18/21 18:03: Bedside Glucose (Misc Panel) 69L 01/18/21 18:47: Bedside Glucose (Misc Panel) 95 01/18/21 19:51: Bedside Glucose (Misc Panel) 143H CBC/BMP Laboratory Tests 01/18/21 06:23 Microbiology Microbiology 01/12/21 Blood Culture - Final, Complete NO GROWTH AFTER 5 DAYS 01/12/21 Blood Culture - Final, Complete NO GROWTH AFTER 5 DAYS REID PRESLEY MD Jan 18, 2021 23:33
[2021-01-19] VITALS (7 sets, daily range): BP systolic 121–204; BP diastolic 73–100
[2021-01-19] MEDS: HumaLOG INSULIN (NovoLOG) PER UNIT SC SCH ×4 (08:40→17:49)
[2021-01-19] MEDS: LACTIC ACID 12% LOTION 225 GM BTL TOP SCH (08:45)
[2021-01-19] MEDS: CALCITRIOL 0.25 MCG CAP (S0169) PO SCH (08:46)
[2021-01-19] MEDS: (RENVELA) SEVELAMER **CARBONate** 800 MG TAB PO SCH ×3 (08:46→17:48)
[2021-01-19] MEDS: ASPIRIN 81MG ENTERIC TABLET PO SCH (08:47)
[2021-01-19 08:48] LABS: BASO # 0.1 10^3/uL (0.0-0.2); BASO % 0.6 % (0.0-1.0); EOS # 0.3 10^3/uL (0.0-0.5); EOS % 3.3 % (0.0-3.0); HEMATOCRIT 28.7 % (36.0-47.0); HEMOGLOBIN 8.9 g/dl (12.0-15.5); LYMPH # 1.4 10^3/uL (1.5-5.0); LYMPH % 14.4 % (24.0-44.0); MEAN CORPUSCULAR HEMOGLOBIN 29.1 pg (27.0-33.0); MEAN CORPUSCULAR VOLUME 93.8 fl (80.0-96.0); MONO # 0.7 10^3/uL (0.0-0.8); MONO % 6.8 % (2.0-8.0); NEUTROPHILS # 7.1 10^3/uL (1.5-8.5); NEUTROPHILS % 74.4 % (36.0-66.0); PLATELET COUNT, AUTOMATED 578 10^3/uL (150-450); RED BLOOD COUNT 3.06 10^6/uL (4.00-5.40); WHITE BLOOD COUNT 9.6 10^3/uL (4.0-10.0)
[2021-01-19] MEDS: FUROSEMIDE 80 MG TAB PO SCH ×2 (08:49→17:48)
[2021-01-19] MEDS: ISOSORBIDE MON. (IMDUR) 60 MG XR TAB PO SCH (08:51)
[2021-01-19] MEDS: METOPROLOL TARTRATE 100 MG TAB PO SCH ×2 (08:51→21:36)
[2021-01-19] MEDS: **hydrALAZINE** 50 MG TAB PO SCH ×2 (08:52→21:36)
[2021-01-19] MEDS: NIFEdipine 30 MG XL TAB PO SCH (08:52)
[2021-01-19 09:21] LABS: CALCIUM LEVEL 8.6 MG/DL (8.5-10.1); CREATININE FOR GFR 3.59 MG/DL (0.55-1.30); GLOMERULAR FILTRATION RATE 18.8 (>60); MAGNESIUM LEVEL 2.6 MG/DL (1.8-2.4)
[2021-01-19] MEDS ORDERED: CAPTOpril 6.25 MG PER 1/2 TABLET PO ONE (11:00)
[2021-01-19] MEDS ORDERED: **hydrALAZINE** 50 MG TAB PO ONE (18:00)
[2021-01-19] MEDS: LEVEMIR (INSULIN DETEMIR) 1 UNITS/0.01ML SC SCH (21:35)
[2021-01-20 06:00] VITALS: BP 168/86
[2021-01-20] MEDS: HumaLOG INSULIN (NovoLOG) PER UNIT SC SCH ×4 (08:51→20:54)
[2021-01-20] MEDS: (RENVELA) SEVELAMER **CARBONate** 800 MG TAB PO SCH ×3 (08:52→16:54)
[2021-01-20] MEDS: ASPIRIN 81MG ENTERIC TABLET PO SCH (08:53)
[2021-01-20 08:55] VITALS: BP 190/92
[2021-01-20] MEDS: FUROSEMIDE 80 MG TAB PO SCH ×2 (08:55→16:54)
[2021-01-20] MEDS: CALCITRIOL 0.25 MCG CAP (S0169) PO SCH (08:55)
[2021-01-20] MEDS: METOPROLOL TARTRATE 100 MG TAB PO SCH ×2 (08:56→21:05)
[2021-01-20] MEDS: ISOSORBIDE MON. (IMDUR) 60 MG XR TAB PO SCH (08:56)
[2021-01-20] MEDS: **hydrALAZINE** 50 MG TAB PO SCH (08:56)
[2021-01-20] MEDS: NIFEdipine 30 MG XL TAB PO SCH (08:57)
[2021-01-20] MEDS: LACTIC ACID 12% LOTION 225 GM BTL TOP SCH (09:03)
[2021-01-20 10:15] VITALS: BP 176/82
[2021-01-20 12:10] VITALS: BP 156/84
[2021-01-20] MEDS: LOSARTAN 50MG TABLET PO SCH (12:10)
[2021-01-20] MEDS: **hydrALAZINE HCL** 25 MG TAB PO SCH ×2 (16:56→21:06)
[2021-01-20 16:58] VITALS: BP 168/76
[2021-01-20] MEDS: LEVEMIR (INSULIN DETEMIR) 1 UNITS/0.01ML SC SCH (21:07)
[2021-01-21 06:00] VITALS: BP 134/76
[2021-01-21] MEDS: ASPIRIN 81MG ENTERIC TABLET PO SCH (06:35)
[2021-01-21] MEDS: (RENVELA) SEVELAMER **CARBONate** 800 MG TAB PO SCH ×3 (06:35→17:56)
[2021-01-21] MEDS: CALCITRIOL 0.25 MCG CAP (S0169) PO SCH (06:35)
[2021-01-21] MEDS: FUROSEMIDE 80 MG TAB PO SCH ×2 (06:36→17:56)
[2021-01-21] MEDS: METOPROLOL TARTRATE 100 MG TAB PO SCH ×2 (06:36→20:54)
[2021-01-21] MEDS: NIFEdipine 30 MG XL TAB PO SCH (06:37)
[2021-01-21 06:52] LABS: BASO # 0.1 10^3/uL (0.0-0.2); BASO % 0.7 % (0.0-1.0); EOS # 0.4 10^3/uL (0.0-0.5); EOS % 4.1 % (0.0-3.0); HEMATOCRIT 25.5 % (36.0-47.0); HEMOGLOBIN 8.2 g/dl (12.0-15.5); LYMPH # 1.3 10^3/uL (1.5-5.0); LYMPH % 13.9 % (24.0-44.0); MEAN CORPUSCULAR HEMOGLOBIN 29.4 pg (27.0-33.0); MEAN CORPUSCULAR HGB CONC 32.2 g/dl (32.0-36.5); MEAN CORPUSCULAR VOLUME 91.4 fl (80.0-96.0); MONO # 0.5 10^3/uL (0.0-0.8); MONO % 5.5 % (2.0-8.0); NEUTROPHILS # 7.2 10^3/uL (1.5-8.5); NEUTROPHILS % 75.1 % (36.0-66.0); PLATELET COUNT, AUTOMATED 527 10^3/uL (150-450); RED BLOOD COUNT 2.79 10^6/uL (4.00-5.40); WHITE BLOOD COUNT 9.6 10^3/uL (4.0-10.0)
[2021-01-21 07:28] LABS: CALCIUM LEVEL 8.9 MG/DL (8.5-10.1); CREATININE FOR GFR 5.47 MG/DL (0.55-1.30); GLOMERULAR FILTRATION RATE 11.6 (>60); POTASSIUM SERUM 5.3 MEQ/L (3.5-5.1)
[2021-01-21] MEDS: HumaLOG INSULIN (NovoLOG) PER UNIT SC SCH ×4 (07:30→20:53)
[2021-01-21] MEDS: **hydrALAZINE HCL** 25 MG TAB PO SCH ×3 (08:16→20:54)
[2021-01-21] MEDS: LACTIC ACID 12% LOTION 225 GM BTL TOP SCH (08:16)
[2021-01-21] MEDS: LOSARTAN 50MG TABLET PO SCH (08:16)
[2021-01-21] MEDS: ISOSORBIDE MON. (IMDUR) 60 MG XR TAB PO SCH (08:16)
--- NOTE | 2021-01-21 09:16 | IPN ---
NEPHROLOGY PROGRESS NOTE DATE: 01/18/2021 SUBJECTIVE: The patient was seen and examined at the bedside today morning. She is afebrile, hemodynamically stable. Today is the patient's regular day of dialysis. She denies any active complaints. OBJECTIVE: VITAL SIGNS: Temperature is 98.2 degrees Fahrenheit, blood pressure 142/79, pulse is 76, respiratory rate of 18, saturating 93% on room air. INTAKE AND OUTPUT: Urine output is not recorded. Weight in the bed scale is not available. PHYSICAL EXAMINATION: GENERAL APPEARANCE: The patient is awake, alert, oriented x3, laying in bed in no apparent distress. HEAD AND NECK: Extraocular muscles intact. Pupils are equally round and reactive to light. Mucous membranes are moist. Neck is supple. There is no jugular venous distention. She has a tunneled hemodialysis catheter. CARDIOVASCULAR: S1, S2, regular rate. EXTREMITIES: No edema of the bilateral lower extremities. RESPIRATORY: Chest is clear to auscultation bilaterally. Bilaterally currently no rales or rhonchi. ABDOMEN: Soft, positive bowel sounds, nontender, no organomegaly. MUSCULOSKELETAL: She has a dressing on the left foot. RN CARDIOVASCULAR ICU: No focal deficits. Power is 5/5 in all extremities. LAB REVIEW: CBC showed a WBC of 10.9, hemoglobin 8.4, platelet count 516. BMP showed sodium of 132, potassium 5, chloride 98, bicarbonate 27, BUN 41, creatinine is 4.8. Transferrin saturation is 17.6. Iron level is 44. Ferratin 853. is 664. CURRENT INPATIENT MEDICATIONS: The patient's medications were all reviewed by myself. She was started on Venofer with dialysis. ASSESSMENT AND PLAN: 1. End-stage renal disease - The patient will be dialyzed today. Ultrafiltration will be 4 liters as tolerated by her blood pressure. 2. Anemia secondary to end-stage renal disease and iron deficiency - The patient has been started on Venofer with dialysis. She is already on Aranesp 200 mcg with dialysis. 3. Hypertension with end-stage renal disease and hypertensive heart disease the patient continues to be on Hydralazine, Metoprolol and Nifedipine with Isosorbide. Blood pressures are well controlled. 4. Secondary hyperparathyroidism - The patient will be started on Calcitriol daily. 5. Chronic kidney disease, mineral bone disease - continue current dose of Renvela with meals.
--- NOTE | 2021-01-21 10:15 | IPN ---
PROGRESS NOTE DATE: 01/20/2021 SUBJECTIVE: The patient was seen and examined at the bedside today morning. Her blood pressures are uncontrolled despite being on multiple medications. Systolic blood pressures were in the 190s today. She denies any active complaints. She denies any headaches, chest pain or shortness of breath. OBJECTIVE: Vital signs: Temperature is 98.6 degrees Fahrenheit, blood pressure 190/92, pulses 84, respiratory rate of 90, saturating 100% on room air. Intake and output: There is no urine output recorded. Weight in the bed scale is 96.7 kg. PHYSICAL EXAMINATION: General: The patient is awake, alert, oriented x3, lying in bed in apparent distress. Head and neck examination: Extraocular muscles are intact. Pupils equally round and reactive to light. Neck is supple. She has tunnel hemodialysis catheter. Cardiovascular: S1, S2, regular rate. No edema at the bilateral lower extremities. Respiratory: Chest is clear to auscultation bilaterally. Bilateral equal air entry. No rales or rhonchi. Abdomen: Soft, positive bowel sounds. Nontender, no organomegaly. Musculoskeletal: She has a dressing on the left foot. MAGAZINE WRITER: No focal deficit. Power is 5/5 in all extremities. LABORATORY DATA: Complete blood count (CBC) showed a WBC of 9.6, hemoglobin 98.9, that was from yesterday. Basic metabolic panel (BMP) is also from yesterday with a potassium of 5. CURRENT MEDICATIONS: The patient's medications were all reviewed by myself . I have changed her hydralazine dose to 75 mg by mouth three times a day and I have also started the patient on losartan 50 mg by mouth daily. ASSESSMENT: 1. Uncontrolled hypertension. The patient is noncompliant with fluid restriction. I have placed the patient on 1800 ml fluid restriction. Losartan 50 mg by mouth daily has been started. Continue current dose of hydralazine 75 mg by mouth three times a day, which was changed today. Continue metoprolol 100 mg by mouth twice a day and nifedipine 90 mg by mouth daily and isosorbide 60 mg by mouth daily. 2. End-stage renal disease. The patient's regular dialysis day is tomorrow. She will be dialyzed tomorrow morning and I will try to remove at least 4 to 5 liters of fluid as tolerated by her blood pressure. 3. Anemia and end-stage renal disease. Continue Aranesp and Venofer with dialysis. 4. Left foot ulcer, is getting wound care by nursing staff. 5. Diabetes mellitus type 1, continue Levemir and insulin sliding scale.
--- NOTE | 2021-01-21 11:11 | IPN ---
PROGRESS NOTE DATE: 01/21/2021 SUBJECTIVE: Patient seen and examined this morning at the bedside and later in the evening receiving hemodialysis. She denies any complaints. Her blood pressure medications were adjusted over the weekend and blood pressures better controlled today. Her dialysis treatment has been uneventful. OBJECTIVE: VITAL SIGNS: Temperature is 99.1, pulse is 81, respiratory rate is 134/76, saturating 97% on room air. INTAKE AND OUTPUT: Intake yesterday was 1.5 liters, weight on the bed scale today is 98.3 kg. Goal dialysis fluid removal is 4 kg. GENERAL APPEARANCE: Patient is seen awake, alert and oriented, comfortable in no distress. HEENT: Extraocular muscles are intact. Tongue is moist. NECK: Supple. Jugular veins are mildly elevated. There is a tunneled dialysis catheter on the right chest wall. HEART: Regular. S1 and S2. There is 1+ leg edema. EXTREMITIES: Peripheral pulses are palpable. LUNGS: Clear to auscultation bilaterally. ABDOMEN: Soft and nontender. NEUROLOGIC: She is oriented x3, interactive at baseline mentation. SKIN: Normal temperature, warm and dry. LABORATORY DATA: White count is 9.6, hemoglobin is 8.2, platelets are 527,000. Sodium is 130, potassium is 5.3. PTH 664. INPATIENT MEDICATIONS: Reviewed by myself. No changes as compared to yesterday. PROBLEMS: 1. Endstage renal diagnosis on hemodialysis on Thursday, Thursday and Thursday schedule. Patient is being dialyzed this evening with goal fluid removal of 3 to 4 kg as tolerated by hemodynamics. 2. Hypertension. Patient's blood pressure control has improved over the weekend. She is on a 1.8 liter fluid restriction now and the antihypertensive regimen is now hydralazine, isosorbide mononitrate, losartan, metoprolol, nifedipine and Lasix. No changes being made to her regimen today. 3. Secondary hyperparathyroidism of renal origin. Parathyroid hormone is 664, calcium is acceptable. She continues on Calcitriol and Renvela phosphorus binder. 4. Anemia related to iron deficiency, chronic inflammatory state and endstage renal disease. Hemoglobin is suboptimal but stable in the 8s. She continues on Aranesp and IV iron and I would transfuse her for a hemoglobin less than 8. 5. Foot ulcer, continue with wound care as per primary team and wound nursing. 6. Poorly controlled insulin dependent diabetes. Her most recent A1c was higher than 10%. Compliance has been a recurrent issue. She continues on insulin.
[2021-01-21] MEDS: DARBEPOETIN 200MCG/0.4ML *DIALYSIS* SYRINGE (J0882 PER 1MCG) IV SCH (13:12)
[2021-01-21] MEDS: IRON SUCROSE 100MG 5ML VIAL (J1756 PER 1MG) IV SCH (14:01)
[2021-01-21] MEDS: ACETAMINOPHEN TAB 650MG DOSE (2X325MG) PO PRN (17:57)
--- NOTE | 2021-01-21 19:14 | REP ---
INDICATION: R arm pain, site of old fistula. r/o DVT COMPARISON: None. TECHNIQUE: Real time compression and duplex Doppler evaluation of the Right upper extremity deep venous system is performed. FINDINGS: The Right subclavian, jugular, axillary, brachial, and basilic veins are fully compressible where accessible with transducer pressure, and demonstrate no intraluminal thrombus and normal venous waveforms. There is no evidence of acute deep venous thrombosis. At the site of a prior AV fistula there is chronic thrombus in the distal cephalic vein. IMPRESSION: No evidence of acute deep venous thrombosis of the Right upper extremity deep vein system. <Electronically signed by Hesham Oconnell > 01/21/21 [id number]
[2021-01-21] MEDS: LEVEMIR (INSULIN DETEMIR) 1 UNITS/0.01ML SC SCH (20:53)
[2021-01-22 06:00] VITALS: BP 168/92
[2021-01-22] MEDS: (RENVELA) SEVELAMER **CARBONate** 800 MG TAB PO SCH ×3 (08:07→17:05)
[2021-01-22] MEDS: HumaLOG INSULIN (NovoLOG) PER UNIT SC SCH ×4 (08:07→20:50)
[2021-01-22] MEDS: LACTIC ACID 12% LOTION 225 GM BTL TOP SCH (08:08)
[2021-01-22] MEDS: CALCITRIOL 0.25 MCG CAP (S0169) PO SCH (08:08)
[2021-01-22] MEDS: ASPIRIN 81MG ENTERIC TABLET PO SCH (08:09)
[2021-01-22] MEDS: METOPROLOL TARTRATE 100 MG TAB PO SCH ×2 (08:11→20:50)
[2021-01-22] MEDS: **hydrALAZINE HCL** 25 MG TAB PO SCH ×3 (08:12→20:49)
[2021-01-22] MEDS: ISOSORBIDE MON. (IMDUR) 60 MG XR TAB PO SCH (08:12)
[2021-01-22] MEDS: NIFEdipine 30 MG XL TAB PO SCH (08:12)
[2021-01-22] MEDS: LOSARTAN 50MG TABLET PO SCH ×2 (08:12→20:50)
[2021-01-22] MEDS: FUROSEMIDE 80 MG TAB PO SCH ×2 (08:13→17:05)
[2021-01-22] MEDS: LEVEMIR (INSULIN DETEMIR) 1 UNITS/0.01ML SC SCH (20:49)
[2021-01-22 22:00] VITALS: BP 169/89
[2021-01-23] MEDS: **hydrALAZINE HCL** 25 MG TAB PO SCH ×2 (05:57→16:19)
[2021-01-23] MEDS: ASPIRIN 81MG ENTERIC TABLET PO SCH (05:57)
[2021-01-23] MEDS: LOSARTAN 50MG TABLET PO SCH (05:58)
[2021-01-23] MEDS: CALCITRIOL 0.25 MCG CAP (S0169) PO SCH (05:58)
[2021-01-23 06:00] VITALS: BP 165/90
[2021-01-23 06:27] LABS: HEMOGLOBIN 8.5 g/dl (12.0-15.5); MEAN CORPUSCULAR HEMOGLOBIN 29.4 pg (27.0-33.0); MEAN CORPUSCULAR HGB CONC 31.5 g/dl (32.0-36.5); MEAN CORPUSCULAR VOLUME 93.4 fl (80.0-96.0); PLATELET COUNT, AUTOMATED 587 10^3/uL (150-450); RED BLOOD COUNT 2.89 10^6/uL (4.00-5.40); WHITE BLOOD COUNT 9.3 10^3/uL (4.0-10.0)
[2021-01-23 06:50] LABS: CALCIUM LEVEL 8.7 MG/DL (8.5-10.1); CREATININE FOR GFR 4.79 MG/DL (0.55-1.30); GLOMERULAR FILTRATION RATE 13.5 (>60); POTASSIUM SERUM 4.2 MEQ/L (3.5-5.1)
[2021-01-23] MEDS: HumaLOG INSULIN (NovoLOG) PER UNIT SC SCH ×2 (07:30→12:54)
[2021-01-23] MEDS ORDERED: SODIUM CHLORIDE 0.9% 1000ML IV PRN (07:35)
[2021-01-23] MEDS: (RENVELA) SEVELAMER **CARBONate** 800 MG TAB PO SCH ×2 (08:17→12:53)
[2021-01-23] MEDS: METOPROLOL TARTRATE 100 MG TAB PO SCH (08:17)
[2021-01-23] MEDS: LACTIC ACID 12% LOTION 225 GM BTL TOP SCH (08:18)
[2021-01-23] MEDS: ISOSORBIDE MON. (IMDUR) 60 MG XR TAB PO SCH (08:18)
[2021-01-23] MEDS: NIFEdipine 30 MG XL TAB PO SCH (08:18)
[2021-01-23] MEDS: FUROSEMIDE 80 MG TAB PO SCH ×2 (08:18→16:18)
--- NOTE | 2021-01-23 11:13 | IPN ---
PROGRESS NOTE DATE: 01/23/2021 SUBJECTIVE: Narcisa is seen and examined this morning at the bedside and later in the Hemodialysis Unit. She was hypoglycemic this morning with a glucose of 39 on chemistry but otherwise she denies any complaints. OBJECTIVE: VITAL SIGNS: Temperature is 98.5, pulse is 79, respiratory rate is 20, blood pressure is 165/90, saturating 98% on room air. INTAKE AND OUTPUT: Intake yesterday was 720, goal dialysis fluid removal today was 4 liters. Weight on the bed scale today is not recorded. GENERAL: Patient is seen awake, alert and oriented and in no apparent distress. HEENT: Extraocular muscles are intact. Tongue is moist. NECK: Supple. HEART: Regular, S1 and S2. LUNGS: Clear to auscultation bilaterally. No crackle or rale. She is sitting comfortable on room air. ABDOMEN: Soft and nontender. Positive bowel sounds. EXTREMITIES: Dressings on her feet and 1+ leg edema. No clubbing or cyanosis. She has a tunneled hemodialysis catheter. NEUROLOGIC: She is oriented x3 at baseline mentation. LABORATORY DATA: Sodium is 136, potassium is 4.2, bicarbonate 26, glucose on chemistry was 39, fingerstick was 36 and repeat fingerstick 65 and 128. Hemoglobin 8.5, platelets 587,000. INPATIENT MEDICATIONS: Reviewed by myself. Her Losartan was increased to 50 mg twice daily by myself. Her remainder of medications are unchanged as compared to yesterday. PROBLEMS: 1. Endstage renal disease on a Thursday, Thursday and Thursday schedule. Patient is due for dialysis this afternoon with goal fluid removal of 4 kg as tolerated by hemodynamics. Her electrolytes and volume status are acceptable. 2. Hypertension, patient's blood pressures were elevated again, systolic has mostly been in the 160s to 170s, it will improve with dialysis and fluid removal but I also increased the Losartan to 50 mg p.o. twice daily. She is also on Hydralazine, Isosorbide, Metoprolol and Nifedipine. 3. Secondary hyperparathyroidism of renal origin. She continues on Calcitriol plus her phosphorus binder (Renvela). 4. Anemia related to chronic renal failure, inflammatory state and iron deficiency. She is receiving IV iron and she is on Aranesp. I will transfer for a hemoglobin less than 8. 5. Insulin dependent diabetes mellitus, poorly controlled, A1c this month was greater than 10%. 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 I am decreasing her Levemir to 20 units.
[2021-01-23] MEDS ORDERED: CALC1CAP31 PO (12:13)
[2021-01-23] MEDS ORDERED: BASA100I SC (12:13)
[2021-01-23] MEDS ORDERED: COZA50TA PO (12:13)
[2021-01-23] MEDS ORDERED: INSUH10VL SC (12:13)
[2021-01-23] MEDS ORDERED: ISOS1TAB36 PO (12:13)
[2021-01-23] MEDS ORDERED: HYDR25TA PO (12:13)
[2021-01-23] MEDS ORDERED: LANC30MI XX (12:15)
[2021-01-23] MEDS ORDERED: ALCOPAD25 TOP (12:15)
[2021-01-23] MEDS ORDERED: GLUC1TES2 XX (12:15)
[2021-01-23] MEDS ORDERED: BLOOKIT21 XX (12:15)
[2021-01-23] MEDS ORDERED: PEN1MIS21 SC (12:15)
[2021-01-23] MEDS ORDERED: INSU1MIS20 SC (12:15)
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
[2021-01-23] MEDS ORDERED: AMLO1TAB25 PO (15:11)
[2021-01-23] MEDS ORDERED: NOVOINJ3 SC (15:11)
[2021-01-23] MEDS ORDERED: VITA50005 PO (15:11)
[2021-01-23] MEDS ORDERED: FURO80TA2 PO (15:11)
[2021-01-23] MEDS ORDERED: ASPI81TA26 PO (15:11)
[2021-01-23] MEDS ORDERED: LOPR1TAB7 PO (15:15)
[2021-01-23] MEDS ORDERED: NIFE90TA20 PO (15:15)
[2021-01-23 16:19] VITALS: BP 173/103
[2021-01-23] MEDS ORDERED: LEVEMIR (INSULIN DETEMIR) 1 UNITS/0.01ML SC SCH (21:00)
[2021-01-24] MEDS ORDERED: FURO80TA2 PO (23:47)
[2021-01-24] MEDS ORDERED: CALC1CAP31 PO (23:47)
[2021-01-24] MEDS ORDERED: VITA50005 PO (23:47)
[2021-01-24] MEDS ORDERED: AMLO1TAB25 PO (23:47)
[2021-01-24] MEDS ORDERED: ASPI-161 PO (23:47)
[2021-01-24] MEDS ORDERED: BASA100I SC (23:47)
[2021-01-24] MEDS ORDERED: HYDR-3910 PO (23:47)
[2021-01-24] MEDS ORDERED: LOSA50TA88 PO (23:47)
[2021-01-24] MEDS ORDERED: INSUH10VL SC (23:47)
[2021-01-24] MEDS ORDERED: ISOS1TAB36 PO (23:47)
[2021-01-24] MEDS ORDERED: PATIENT COMMENT (23:48)
== END 2021-01-23 16:40 | disposition home health service (06) | DRG 304 ==
LOC: M ED 10:24 → M ED INP 13:43 → ENRESERV 14:11 → M PCU 16:05 → M MS5PR 01-13 17:00
PROVIDERS: ADMIT Internal Medicine; ATTEND Family Medicine
PROC: 5A1D70Z Performance of Urinary Filtration, Intermittent, Less than 6 Hours Per Day (ICD-10-PCS; principal; 2021-01-14)
DX: I16.0 Hypertensive urgency (principal); N18.6 End stage renal disease; L97.528 Non-pressure chronic ulcer of other part of left foot with other specified severity; E87.1 Hypo-osmolality and hyponatremia; N25.81 Secondary hyperparathyroidism of renal origin; E10.22 Type 1 diabetes mellitus with diabetic chronic kidney disease; E10.65 Type 1 diabetes mellitus with hyperglycemia; E10.40 Type 1 diabetes mellitus with diabetic neuropathy, unspecified; D69.6 Thrombocytopenia, unspecified; I12.0 Hypertensive chronic kidney disease with stage 5 chronic kidney disease or end stage renal disease; I27.20 Pulmonary hypertension, unspecified; E83.39 Other disorders of phosphorus metabolism; E10.621 Type 1 diabetes mellitus with foot ulcer; D63.1 Anemia in chronic kidney disease; E10.649 Type 1 diabetes mellitus with hypoglycemia without coma; E80.6 Other disorders of bilirubin metabolism; T38.3X6A Underdosing of insulin and oral hypoglycemic [antidiabetic] drugs, initial encounter; T44.8X6A Underdosing of centrally-acting and adrenergic-neuron-blocking agents, initial encounter; Z91.128 Patient's intentional underdosing of medication regimen for other reason; Z99.2 Dependence on renal dialysis; Z79.82 Long term (current) use of aspirin; Z79.899 Other long term (current) drug therapy; Z79.4 Long term (current) use of insulin; Z20.822 Contact with and (suspected) exposure to COVID-19; Z91.010 Allergy to peanuts; Z91.040 Latex allergy status; Z59.0 Homelessness; Z91.048 Other nonmedicinal substance allergy status; Z88.8 Allergy status to other drugs, medicaments and biological substances; Z88.5 Allergy status to narcotic agent

== ENCOUNTER 2021-01-24 18:30 | Inpatient (IN) | payer MEDICARE, MEDICAID ==
[~2021-01-24] VITALS: Ht 175.3 cm; Wt 92.8 kg
[~2021-01-24 18:30] MED LIST changes: +HYDR25TA PO; +ISOS1TAB36 PO; +PEN1MIS21 SC
[2021-01-24 20:57] LABS: BASO # 0.1 10^3/uL (0.0-0.2); BASO % 0.5 % (0.0-1.0); EOS # 0.1 10^3/uL (0.0-0.5); EOS % 0.7 % (0.0-3.0); HEMATOCRIT 25.3 % (36.0-47.0); HEMOGLOBIN 7.9 g/dl (12.0-15.5); LYMPH # 1.3 10^3/uL (1.5-5.0); LYMPH % 9.7 % (24.0-44.0); MEAN CORPUSCULAR HEMOGLOBIN 29.7 pg (27.0-33.0); MEAN CORPUSCULAR HGB CONC 31.2 g/dl (32.0-36.5); MEAN CORPUSCULAR VOLUME 95.1 fl (80.0-96.0); MONO # 0.6 10^3/uL (0.0-0.8); MONO % 4.7 % (2.0-8.0); NEUTROPHILS # 11.3 10^3/uL (1.5-8.5); NEUTROPHILS % 83.7 % (36.0-66.0); PLATELET COUNT, AUTOMATED 610 10^3/uL (150-450); RED BLOOD COUNT 2.66 10^6/uL (4.00-5.40); WHITE BLOOD COUNT 13.5 10^3/uL (4.0-10.0)
--- NOTE | 2021-01-24 20:57 | REPVR ---
PROCEDURE INFORMATION: Exam: XR Chest Exam date and time: 01/24/2021 7:55 PM Age: 35 years old Clinical indication: Cough; Additional info: Dyspnea/cough TECHNIQUE: Imaging protocol: XR of the chest Views: 1 view. COMPARISON: CR Chest, 1 view 01/12/2021 11:48 AM FINDINGS: Lungs: Asymmetric ill-defined airspace opacities throughout the left lung and possibly in the right lung base. Pleural spaces: No pleural effusion or pneumothorax. Heart/Mediastinum: Stable cardiomegaly. PermCath is unchanged. Bones/joints: Unremarkable. IMPRESSION: Asymmetric opacities in the left lung suggesting asymmetric pulmonary edema or developing pneumonia. Electronically signed by: John Hernandez On 01/24/2021 20:57:12 PM
[2021-01-24 21:34] LABS: ALBUMIN 2.8 GM/DL (3.2-5.2); BILIRUBIN,DIRECT 4.5 MG/DL (0.0-0.2); BILIRUBIN,TOTAL 5.3 MG/DL (0.2-1.0); CALCIUM LEVEL 9.4 MG/DL (8.5-10.1); CK-MB VALUE MASS 2.4 NG/ML (<3.6); CREATININE FOR GFR 4.22 MG/DL (0.55-1.30); GLOMERULAR FILTRATION RATE 15.6 (>60); MB/CK RELATIVE INDEX 1.25 (< OR =4); POTASSIUM SERUM 4.6 MEQ/L (3.5-5.1); TOTAL PROTEIN 8.2 GM/DL (6.4-8.2); TROPONIN I 0.09 NG/ML (< 0.10)
[2021-01-24] MEDS ORDERED: ISOVUE-370 76% 100ML VIAL As Ordered ONE (21:36)
[2021-01-24 21:44] LABS: RSV AMPLIFICATION NEGATIVE (NEGATIVE)
--- NOTE | 2021-01-24 22:46 | REPVR ---
PROCEDURE INFORMATION: Exam: CT Angiography Chest With Contrast Exam date and time: 01/24/2021 10:27 PM Age: 35 years old Clinical indication: Shortness of breath; Chest pain; Type not specified; Additional info: Chest pain, SOB, recent hospitalization, esrd TECHNIQUE: Imaging protocol: Computed tomographic angiography of the chest with contrast. 3D rendering (Not supervised by radiologist): MIP and/or 3D reconstructed images were created by the technologist. Radiation optimization: All CT scans at this facility use at least one of these dose optimization techniques: automated exposure control; mA and/or kV adjustment per patient size (includes targeted exams where dose is matched to clinical indication); or iterative reconstruction. Contrast material: ISOVUE 370; Contrast volume: 75 ml; Contrast route: INTRAVENOUS (IV); COMPARISON: CT Chest without contrast 12/08/2020 11:22 AM FINDINGS: Pulmonary arteries: Normal. No pulmonary emboli. Aorta: Unremarkable. No aortic aneurysm. No aortic dissection. Veins: A PermCath extends into the lower SVC. Lungs: Left greater than right generalized ground-glass opacities throughout both lungs. Mild linear interstitial thickening. Airways are clear. Pleural spaces: Unremarkable. No pneumothorax. No pleural effusion. Heart: Mild cardiomegaly. No pericardial effusion. Lymph nodes: Unremarkable. No enlarged lymph nodes. Liver: The liver appears enlarged but is incompletely imaged. Bones/joints: Unremarkable. No acute fracture. Soft tissues: Mild subcutaneous edema. IMPRESSION: 1. Left greater than right diffuse ground-glass opacities and linear interstitial thickening suggesting pulmonary edema. 2. No other airspace consolidation. 3. Pulmonary embolism. 4. Cardiomegaly. Electronically signed by: John Hernandez On 01/24/2021 22:45:51 PM
[2021-01-24] MEDS ORDERED: FURO80TA2 PO (23:47)
[2021-01-24] MEDS ORDERED: CALC1CAP31 PO (23:47)
[2021-01-24] MEDS ORDERED: AMLO1TAB25 PO (23:47)
[2021-01-24] MEDS ORDERED: ASPI-161 PO (23:47)
[2021-01-24] MEDS ORDERED: ISOS1TAB36 PO (23:47)
[2021-01-24] MEDS ORDERED: LOSA50TA88 PO (23:47)
[2021-01-24] MEDS ORDERED: HYDR-3910 PO (23:47)
[2021-01-24] MEDS ORDERED: INSUH10VL SC (23:47)
[2021-01-24] MEDS ORDERED: VITA50005 PO (23:47)
[2021-01-24] MEDS ORDERED: BASA100I SC (23:47)
[2021-01-24] MEDS ORDERED: PATIENT COMMENT (23:48)
[2021-01-25] VITALS (12 sets, daily range): BP systolic 136–204; BP diastolic 84–111; O2SAT 91–100
[2021-01-25] MEDS ORDERED: MOM 30ML SUSPENSION UDC PO PRN (00:40)
[2021-01-25] MEDS ORDERED: MAALOX 30 ML SUSP *UDC PO PRN (00:40)
[2021-01-25] MEDS ORDERED: FUROSEMIDE 40MG/4ML VIAL (J1940) IV ONE (00:40)
[2021-01-25] MEDS ORDERED: (RENVELA) SEVELAMER **CARBONate** 800 MG TAB PO PRN (01:35)
[2021-01-25] MEDS: LEVEMIR (INSULIN DETEMIR) 1 UNITS/0.01ML SC SCH ×2 (01:35→21:29)
[2021-01-25] MEDS ORDERED: GLUCAGON INJ 1MG VIAL SC PRN (01:35)
[2021-01-25] MEDS ORDERED: GLUCOSE 4GM CHEW TABLET PO PRN (01:35)
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
--- NOTE | 2021-01-25 02:09 | ECGEPIP ---
[facility] - ED Test Date: 2021-01-24 Pat Name: KATELYN COLLINS Department: Room: - Gender: Female Sap Grc Security: NAVJOT : [id number] Requested By: AMANDA Craft Order Number: [id number] Reading MD: Claude Lucas Measurements Intervals [place] Rate: 79 P: 49 NJ: 134 QRS: 42 QRSD: 76 T: 127 QT: 428 QTc: 490 Interpretive Statements Normal sinus rhythm Possible Left atrial enlargement INCOMPLETE RIGHT BUNDLE BRANCH BLOCK Nonspecific T wave abnormality Prolonged QT SIMILAR TO 01/12/21 Electronically Signed on 01-25-2021 2:09:24 EDT by Claude Lucas
[2021-01-25] MEDS: METOPROLOL TARTRATE 100 MG TAB PO SCH ×3 (03:12→21:28)
[2021-01-25] MEDS: LOSARTAN 50MG TABLET PO SCH ×3 (03:13→21:29)
[2021-01-25] MEDS: **hydrALAZINE HCL** 25 MG TAB PO SCH ×4 (03:13→21:29)
[2021-01-25 06:50] LABS: HEMATOCRIT 24.5 % (36.0-47.0); HEMOGLOBIN 7.7 g/dl (12.0-15.5); MEAN CORPUSCULAR HEMOGLOBIN 29.3 pg (27.0-33.0); MEAN CORPUSCULAR HGB CONC 31.4 g/dl (32.0-36.5); MEAN CORPUSCULAR VOLUME 93.2 fl (80.0-96.0); PLATELET COUNT, AUTOMATED 572 10^3/uL (150-450); RED BLOOD COUNT 2.63 10^6/uL (4.00-5.40); WHITE BLOOD COUNT 13.1 10^3/uL (4.0-10.0)
[2021-01-25] MEDS: HumaLOG INSULIN (NovoLOG) PER UNIT SC SCH ×6 (07:00→21:00)
[2021-01-25] MEDS: HEPARIN SOD (PORCINE) 5000UNITS/ML 1ML VIAL/SYRINGE SC SCH ×3 (07:07→21:29)
[2021-01-25 07:15] LABS: ALBUMIN 2.6 GM/DL (3.2-5.2); BILIRUBIN,TOTAL 5.1 MG/DL (0.2-1.0); CALCIUM LEVEL 9.2 MG/DL (8.5-10.1); CREATININE FOR GFR 4.67 MG/DL (0.55-1.30); GLOMERULAR FILTRATION RATE 13.9 (>60); POTASSIUM SERUM 4.3 MEQ/L (3.5-5.1); TOTAL PROTEIN 7.6 GM/DL (6.4-8.2)
[2021-01-25] MEDS: (RENVELA) SEVELAMER **CARBONate** 800 MG TAB PO SCH ×3 (08:00→19:04)
[2021-01-25] MEDS: FUROSEMIDE 80 MG TAB PO SCH ×2 (08:23→21:28)
[2021-01-25] MEDS: LACTOBACILLUS ACIDOPHILUS CAP (BACID) PO SCH ×2 (08:23→19:04)
[2021-01-25] MEDS ORDERED: LIDOCAINE 1% SDV 5ML VIAL SQ ONE (11:05)
[2021-01-25] MEDS: ISOSORBIDE MON. (IMDUR) 60 MG XR TAB PO SCH (11:13)
[2021-01-25] MEDS: ASPIRIN 81MG ENTERIC TABLET PO SCH (11:13)
[2021-01-25] MEDS: CALCITRIOL 0.25 MCG CAP (S0169) PO SCH (11:13)
[2021-01-25] MEDS: NIFEdipine 30 MG XL TAB PO SCH (11:27)
--- NOTE | 2021-01-25 12:44 | REP ---
INDICATION: RUQ tenderness. COMPARISON: 01/06/2021. TECHNIQUE: Real-time sonographic evaluation of right upper quadrant performed. FINDINGS: There is significant diffuse gallbladder wall thickening up to 14 mm. No gallstones are seen.. There is no intrahepatic or extrahepatic biliary dilatation, common bile duct measures 5 mm in maximum diameter. Liver is enlarged with a length of 21.7 cm. No liver mass is seen. Visualized pancreas is grossly unremarkable, not optimally seen due to overlying bowel gas. The right kidney demonstrates no hydronephrosis, with a normal size of 9.4 cm in length. Diffuse increased echotexture of the right kidney suggests medical renal disease. Mild free fluid is seen around the liver. IMPRESSION: No gallstones, but there is significant diffuse gallbladder wall thickening up to 14 mm. Cholecystitis is not excluded. Mild free fluid around the liver. No biliary dilatation. Mild hepatomegaly. Findings of medical renal disease. <Electronically signed by Hesham Oconnell > 01/25/21 [id number]
--- NOTE | 2021-01-25 14:21 | IPNPDOC ---
Text Note Date of Service The patient was seen on 01/25/21. NOTE Subjective: No acute events overnight. Pt states that her diarrhea started on Thursday and has had several episodes of watery loose stools daily since then. She has had similar diarrhea one week ago but that has since resolved with no intervention needed. In regards to her CP and SOB, she states that these sx started on . She has hx of CHF exacerbation and reports that her sx of SOB and chest pain are similar to past exacerbations. Her SOB is worse with exertion and when laying flat. She has not been able to lay flat due to worsening of SOB and she has been sleeping on several pillows at night. Her CP is worse while moving and is rated as a 9/10. Describes the chest pain as it feels like "something heavy is sitting on my chest". Admits non-productive cough, lower extremity edema, and occasional generalized abd pain. Denies any nausea, vomiting. She states that her last dialysis was on Thursday and is due for dialysis today. She states that she drinks a lot of fluids at home and is noncompliant with her home medications. She is unsure of her dry weight. Objective: VITALS: See below. GENERAL: Pt is laying in bed with head elevated. No acute distress. HEENT: NC/AT. Scleral icterus. EOMI. Lids otherwise normal. CARDIOVASCULAR: Regular rate and rhythm. No murmurs, rubs, or gallops appreciated. PULMONARY: Clear to auscultation bilaterally with good air movement. No wheezes, rales, or rhonchi appreciated. ABDOMINAL: Tenderness to palpation to RUQ. No rebound or guarding. Normoactive bowel sounds in all four quadrants. EXTREMITIES: 2+ pitting edema to BLE to knees. NEUROLOGICAL: No gross neurological deficits appreciated. Assessment/Plan: Pt is a 35 year old female with hx of IDDDM1 with neuropathy, retinopathy, pulmonary hypertension, essential hypertension, ESRD, HFpEF with EF of 60%, recent C diff infection on 12/01/20 who presented to the ED due to worsening SOB, chest pain, and diarrhea. Pt was admitted for further management of diarrhea and SOB and chest pain. #Dyspnea likely 2/2 CHF exacerbation with hx of HFpEF with EF 60% - Pt has hx of CHF exacerbation and reports that her sx are similar to her last CHF exacerbation. Pt states that she had similar sx of orthopnea and chest pain during her last exacerbation. Pt also reports not being on a fluid restriction and states that she has been non-compliant to her medications. - Last echo done on 12/01/20, showed borderline concentric LVH, LVEF 60%, restrictive diastolic LV filling pattern, mild L atrial dilatation by L atrial volume index, moderate elevation of estimated R ventricular systolic pressure (56 mmHg). - CXR done yesterday showed asymmetric opacities in the L lung suggesting asymmetric pulmonary edema or developing pneumonia. CTA also shows evidence of pulmonary edema. Pulmonary edema likely 2/2 CHF exacerbation and is causing worsening dyspnea for pt. - CTA done yesterday also shows ground glass opacities L>R. When compared to previous CT chest done in Dec 2020 the ground glass opacities are a new finding. - OH ruled out with EKG and troponin that was WNL. - BNP elevated at 23,931. Will continue to trend. - Will continue diuresis with Lasix 80 mg PO BID. - Will keep monitoring pt fluid status. #Decompensated heart failure likely 2/2 hypertensive urgency - During pt initial presentation, she was hypertensive at 188/96. This is a probably etiology of her acute decompensation of heart failure due to medication non-compliance. - Etiology of acute decompensation unlikely due to acute OH as pt troponins have been WNL and pt had an EKG with no acute ST or T wave changes that may indicate ischemic changes. - Will continue to monitor pt fluid status with strict ins and outs, 2 g sodium diet, and daily weights. - Pt started on Lasix 80 mg PO BID. - Pt kept on tele monitoring. - Continuing home meds for HTN. #Chest pain likely 2/2 fluid overload - Pt states that she has had similar chest pain during her previous CHF exacerbations. - Pt CXR and CTA report showed pleural effusion, likely due to fluid overload. - On physical exam, pt had BLE 2+ pitting edema and pt also complains of orthopnea. - Will continue to monitor fluid status. - Lasix 80 mg PO BID. #Diarrhea - Looking at pt PMH, it appears that pt has acute flares of intermittent diarrhea. Per pt, her last episode of diarrhea was one week ago and that has since resolved without any medical intervention. Likely chronic. - Pt has hx of C diff infection on 11/21/20. C. diff PCR negative. GI panel negative. - This is likely a chronic issue for pt. Will continue to monitor. # Abnormal liver profile - Pt total bilirubin elevated at 5.3, direct bilirubin elevated at 4.5, and alk phos elevated at 1110. - Pt does not complain of RUQ pain but has RUQ tenderness on physical examination. - Pt previous liver US done showed some gallbladder thickening. - R factor of 1.1 indicating cholestatic injury. Will repeat liver US to rule out stone. #Anemia - Pt hgb 7.7. Nephrology has ordered 2 units PRBC for pt prior to hemodialysis later today. - As pt has ESRD, it is expected for pt to be anemic. - Will continue to monitor. #Leukocytosis - WBC elevated at 13.1. Looking back at pt PMH, it appears that pt WBC has been elevated - Pt meets SIRS criteria with RR>20 and WBC>12. - C diff has been ruled out. - Pt has been afebrile and has not been tachycardic. Pt does not complain of any upper respiratory sx other than chronic non-productive cough. - Unilateral ground glass opacities noted on CTA done yesterday. When compared to previous, this appears to be a new finding. - Will further work up. #ESRD on hemodialysis - Pt is due for HD today. Nephrology has been consulted and is planning for HD later this afternoon. - Pt will be receiving 2 units PRBC prior to HD. #IDDM1 - Pt placed on consistent carb diet. - Sliding scale insulin with hypoglycemic protocols in place. DVT Prophylaxis: Heparin 5,000 units SC q8h Disposition: Pending clinical improvement. VS,Fishbone, I+O VS, Fishbone, I+O Laboratory Tests 01/24/21 20:42 01/25/21 06:33 Vital Signs Date Time Temp Pulse Resp B/P (MAP) Pulse Ox O2 Delivery O2 Flow Rate FiO2 01/25/21 08:23 78 155/88 01/25/21 07:35 91 Room Air 01/25/21 04:54 98.5 17 2.0 I&O- Last 24 Hours up to 6 AM 01/25/21 06:00 Intake Total 0 ml Output Total 0 ml Balance 0 ml GME ATTESTATION GME ATTESTATION My faculty preceptor for this patient encounter was physically present during the encounter and was fully available. All aspects of the patient interview, examination, medical decision making process, and medical care plan development were reviewed and approved by the faculty preceptor. The faculty preceptor is aware and concurs with the plan as stated in the body of this note and will attest to such by his/her cosignature. ATTENDING NOTE I, Scooter Johns MD, have independently examined this patient and performed my own physical exam, as well as reviewed the documentation and edited where necessary. I have discussed in detail with the resident / student the findings and plan of treatment as documented by the resident / student and edited their note. I agree with their findings and treatment plan and have edited their documentation. Janell CORDOBA OMS-3 Jan 25, 2021 11:09 PARUL CLEVELAND D.O. Jan 25, 2021 14:45 SCOOTER JOHNS MD Jan 30, 2021 15:16
[2021-01-26] MEDS: HEPARIN SOD (PORCINE) 5000UNITS/ML 1ML VIAL/SYRINGE SC SCH ×3 (05:38→20:53)
[2021-01-26 06:00] VITALS: BP 134/81
[2021-01-26 06:05] LABS: HEMATOCRIT 27.8 % (36.0-47.0); HEMOGLOBIN 9.2 g/dl (12.0-15.5); MEAN CORPUSCULAR HEMOGLOBIN 30.1 pg (27.0-33.0); MEAN CORPUSCULAR HGB CONC 33.1 g/dl (32.0-36.5); MEAN CORPUSCULAR VOLUME 90.8 fl (80.0-96.0); PLATELET COUNT, AUTOMATED 597 10^3/uL (150-450); RED BLOOD COUNT 3.06 10^6/uL (4.00-5.40); WHITE BLOOD COUNT 10.7 10^3/uL (4.0-10.0)
[2021-01-26 06:29] LABS: CALCIUM LEVEL 9.2 MG/DL (8.5-10.1); CREATININE FOR GFR 3.37 MG/DL (0.55-1.30); GLOMERULAR FILTRATION RATE 20.3 (>60); POTASSIUM SERUM 3.7 MEQ/L (3.5-5.1)
[2021-01-26] MEDS: HumaLOG INSULIN (NovoLOG) PER UNIT SC SCH ×4 (07:30→21:00)
[2021-01-26 07:35] LABS: ALBUMIN 2.5 GM/DL (3.2-5.2); BILIRUBIN,DIRECT 3.8 MG/DL (0.0-0.2); BILIRUBIN,TOTAL 4.8 MG/DL (0.2-1.0); TOTAL PROTEIN 8.5 GM/DL (6.4-8.2)
[2021-01-26 08:12] LABS: CHOLESTEROL RISK RATIO 9.894 (<5)
[2021-01-26] MEDS: DEXTROSE 50% 50 ML SYRINGE IV PRN (08:51)
[2021-01-26] MEDS: CALCITRIOL 0.25 MCG CAP (S0169) PO SCH (08:55)
[2021-01-26] MEDS: FUROSEMIDE 80 MG TAB PO SCH ×2 (08:55→20:51)
[2021-01-26] MEDS: LACTOBACILLUS ACIDOPHILUS CAP (BACID) PO SCH ×2 (08:55→18:11)
[2021-01-26] MEDS: ASPIRIN 81MG ENTERIC TABLET PO SCH (08:55)
[2021-01-26] MEDS: (RENVELA) SEVELAMER **CARBONate** 800 MG TAB PO SCH ×3 (08:55→18:11)
[2021-01-26] MEDS: METOPROLOL TARTRATE 100 MG TAB PO SCH ×2 (08:56→20:51)
[2021-01-26] MEDS: ISOSORBIDE MON. (IMDUR) 60 MG XR TAB PO SCH (08:56)
[2021-01-26] MEDS: LOSARTAN 50MG TABLET PO SCH ×2 (08:57→20:52)
[2021-01-26] MEDS: **hydrALAZINE HCL** 25 MG TAB PO SCH ×3 (08:57→20:50)
[2021-01-26] MEDS: NIFEdipine 30 MG XL TAB PO SCH (08:57)
--- NOTE | 2021-01-26 11:19 | CR ---
CONSULTATION DATE: 01/25/2021 REASON FOR CONSULTATION: To assist in the management of t his lady with shortness of breath and end-stage renal disease. HISTORY OF PRESENT ILLNESS: Ms. Mireles is a 35-year-old female with known history of longstanding diabetes, hypertension, and end-stage renal disease. She is chronically noncompliant with her medications and dietary restrictions. She was discharged home to the hospital a couple of days ago and received her dialysis as an outpatient on Thursday afternoon. She presented to emergency room last night not feeling well and short of breath. She was admitted, and a nephrology consultation was requested, as patient is due for dialysis today. MEDICAL HISTORY: Significant for: 1. Insulin-requiring diabetes. 2. Hypertension. 3. End-stage renal disease. 4. Anemia. 5. History of volume overload and congestive heart failure. 6. History of Clostridium (C) difficile colitis. 7. History of hyperparathyroidism. 8. 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 9. 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 10. History of section. HOME MEDICATIONS: - amlodipine 10 mg daily - aspirin 81 mg daily - vitamin D 50,000 units once a week - calcitriol 0.25 mcg daily - furosemide 80 mg twice a day - hydralazine 25 mg three tablets three times a day - Novolog insulin 10 units daily and Humalog insulin per sliding scale - isosorbide ER 60 mg daily - losartan 50 mg twice a day - metoprolol 100 mg twice a day - Renvela 800 mg two tablets three times a day with meals - probiotic one tablet twice a day ALLERGIES: She has allergies to MORPHINE, CINACALCET, tape, latex, and peanuts. PERSONAL AND SOCIAL HISTORY: Patient is single, mother of one child. She is currently homeless, as her sister, who is in [place], has kicked her out. She denies any smoking or drug or alcohol use. FAMILY HISTORY: Significant for diabetes, hypertension, and chronic obstructive pulmonary disease (COPD). REVIEW OF SYSTEMS: She has not been feeling well and reports shortness of breath. She denies any fever or chills. Ears, nose, and throat are unremarkable. Cardiovascular system is significant for chronic uncontrolled hypertension, mostly due to noncompliance with medications and dietary restrictions. Respiratory system is negative for any cough or hemoptysis. Gastrointestinal (GI) system is significant for poor appetite and prior history of Clostridium (C) difficile colitis. She denies any vomiting or abdominal pain at present. Genitourinary () system is negative for dysuria or hematuria. Musculoskeletal system is significant for osteomyelitis on her heel and already had amputation of her 5th metatarsals. She also has chronic lower extremity edema. Endocrine system is significant for secondary hyperparathyroidism in addition to diabetes. Hematological system is significant for anemia of chronic kidney disease. Psychosocial system is significant for depression and noncompliance with medications. Neurological system is negative for seizures. She has history of a brain cyst removal many years ago. PHYSICAL EXAMINATION: At the time of my visit this morning, patient is without any acute distress. She is lying in the bed. Temperature 97.1 degrees Fahrenheit, heart rate 68 per minute, respiratory rate 16 per minute, blood pressure 190/108 mmHg, and oxygen saturation 98% on 2 liters oxygen. Her head is atraumatic. She is wearing a hat on her head. Neck is supple, and jugular venous distention (JVD) is moderately elevated. A hemodialysis catheter is present on right upper chest. She has no oral thrush or ulcers. Heart sounds are regular with a systolic murmur, grade 2/6, but no pericardial friction rub. Lungs have slightly diminished breath sounds and bibasilar rales. Abdomen soft and nontender, and bowel sounds are normal. Extremities without any cyanosis or clubbing. Her left arm arteriovenous (AV) fistula is thrombosed. Neurologically, she is awake and at her baseline mentation without a focal deficit. LABORATORY DATA: Shows WBC count 13.1, hemoglobin 7.7, hematocrit 24.5, platelets 572. Sodium 133, potassium 4.3, BUN 36, creatinine 4.67. Glucose 245 and calcium 9.2. Her total bilirubin is 5.1, AST 51, ALT 39, and alkaline phosphatase 986. BNP level was 23,931. She had a CT angiogram of her chest done, which was negative for any pulmonary embolus. She has ground-glass opacity and linear interstitial thickening, suggesting pulmonary edema. Cardiomegaly is noted. PROBLEMS: 1. Shortness of breath, most likely related to severe anemia and volume overload. Will dialyze her today and try to correct her volume status and also try to correct her anemia with transfusion. 2. End-stage renal disease. Patient is due to get her hemodialysis today, and we plan dialysis this afternoon. 3. Anemia. Patient has significant anemia causing her symptoms. She will be transfused 2 units packed red blood cells (RBC) during dialysis today 4. Uncontrolled hypertension. She has history of noncompliance with medications, and now she is also somewhat volume overloaded, which is causing her uncontrolled hypertension. Blood pressure is likely to improve once we resume all her chronic medications and also correct her volume status with fluid removal. 5. Abnormal liver function tests (LFTs). Elevated bilirubin of 5.1 is unexpected and surprising. I will recommend ultrasound of right upper quadrant for further assessment. She has no known history of hepatitis. Thank you for involving me in the care of Ms. Mireles. I will follow along with you.
--- NOTE | 2021-01-26 11:26 | IPNPDOC ---
Date Seen The patient was seen on 01/26/21. Progress Note SUBJECTIVE: Patient was seen and examined this morning. No adverse events were reported overnight. Patient notes improvement in her shortness of breath. She has received dialysis yesterday as well as 2 units of PRBCs. She states that she does have some right upper quadrant tenderness. She denies any nausea or vomiting. She admits to loose stools however this does not appear to be diarrhea OBJECTIVE PHYSICAL EXAMINATION: VITAL SIGNS: Please see below. GENERAL: Awake, alert, and oriented. Appears in no acute distress. Lying comfortably in bed HEENT: Atraumatic, normocephalic. Sclera icterus present. Trachea is midline. Mucous membranes are pink and moist CARDIOVASCULAR: Normal S1, S2. Regular rate and rhythm. No clicks, rubs, or murmurs RESPIRATORY: Clear breath sounds bilaterally. No wheezes, rhonchi, or rales. Symmetric chest expansion ABDOMINAL: Soft, nondistended. Tenderness of right upper quadrant. No rebound tenderness or guarding. Normoactive bowel sounds EXTREMITIES: No edema. Full and equal pulses in bilateral upper and lower extremities NEUROLOGICAL: No focal neurological deficits PSYCHOLOGICAL: Mood and affect appear appropriate LABORATORY DATA, IMAGING STUDIES, MICROBIOLOGY: Please see below. DVT prophylaxis ordered?: Heparin SQ ASSESSMENT AND PLAN: Patient is a 35 year old female with a past medical history significant for HFpEF with LVEF of 60%, recent C. diff infection 12/01/20, pulmonary hypertension, and IDDMI complicated by diabetic nephropathy and ESRD on HD MWF, neuropathy, and retinopathy who presented to the [facility] ER with complaint of SOB, chest pain, and diarrhea. Patient was admitted for diarrhea and CHF exacerbation PROBLEMS: 1. Dyspnea likely secondary to CHF exacerbation -History of HFpEF with EF of 60%. She has had an echocardiogram previously which demonstrated pulmonary hypertension -Patient received dialysis yesterday. She is continued on Lasix PO -Volume status improving. Patient is denying any shortness of breath. -Continue with strict I's and O's. 2 gram sodium and consistent carb diet, daily weigh, 1800 cc fluid restriction 2. Chest Pain -Patient had stated she had chest discomfort. Troponin negative. No acute changes on EKG. Possibly secondary to decompensated CHF on admission. -Patient noted improvement in chest pain. 3. Right upper quadrant tenderness and abnormal liver profile -Patient noted to have right upper quadrant tenderness. On admission labs her direct bilirubin was elevated at 5.3. Alk phos was elevated at 1110. She had received a abdominal ultrasound at her previous admission as well as on this admission. Results from both demonstrating gallbladder wall thickening up to 14mm as well as enlarged liver at 21.7 cm -Unlikely cholecystitis as patient is not febrile. Will order an MRCP. Patient does have hepatomegaly. No comment of portal hypertension or history of cirrhosis. Previous INR on 01/16/21 was 0.91. Albumin 2.5. Possibly secondary to her CHF and vascular congestion however if this were the case would expect elevation of indirect bilirubin. Possible she has scarring of the biliary ducts which would not dilate as typically. This could be seen in the setting of primary biliary cirrhosis or primary sclerosing cholangitis although rare and unlikely -Will order AMA, IgM, P-ANCA 4. Diarrhea -Gastrointestinal panel is negative. Patient states her diarrhea is improving. 5. Anemia of renal disease -Patient has chronic anemia. Likely secondary to chronic renal disease. She is followed by Nephrology. She was transfused 2 units of PRBCs yesterday. May consider Aranesp -Will continue to trend daily 6. ESRD on HD MWF -Patient received HD yesterday. Volume status looks improved. Given her readmissions her dry weight may need to be adjusted on discharge with more fluid being removed during her dialysis days 8. Diabetes mellitus type 1 -Patient has type 1 diabetes. She is on levemir with sliding scale coverage. She was noted to be hypoglycemic this morning and previously in her hospitalizations. Will reduce her QHS insulin from 25 units to 10 units. Will titrate up as needed 9. DVT prophylaxis -Heparin SQ DISPOSITION: Patient clinically improving. Pending MRCP. Patient may need potential placement. She is currently living in a boarding home provided by [employer]. She stated they will no longer pay for her after January 31. She states that she does not have a plan on where to live after this date. She will need PFS consult on Thursday VS, I&O, 24H, Elliotbone Vital Signs/I&O Vital Signs Date Time Temp Pulse Resp B/P (MAP) Pulse Ox O2 Delivery O2 Flow Rate FiO2 01/26/21 08:56 87 172/93 01/26/21 06:00 98.2 18 97 Nasal Cannula 2.0 01/25/21 14:00 95 I&O- Last 24 Hours up to 6 AM 01/26/21 06:00 Intake Total 2020 ml Output Total 4500 ml Balance -2480 ml Laboratory Data 24H LABS Laboratory Tests 2 01/25/21 11:22: Lab Scanned Report Miscellaneous Lab 01/25/21 11:31: Bedside Glucose (Misc Panel) 111H 01/25/21 12:11: Troponin I 0.08 01/25/21 19:03: Bedside Glucose (Misc Panel) 143H 01/25/21 20:30: Bedside Glucose (Misc Panel) 187H 01/26/21 05:25: 01/26/21 05:29: Nucleated Red Blood Cells % (auto) 0.2H, Anion Gap 9, Glomerular Filtration Rate 20.3L, Calcium Level 9.2, Total Bilirubin 4.8H, Direct Bilirubin 3.8H, Aspartate Amino Transf (AST/SGOT) 65H, Alanine Aminotransferase (ALT/SGPT) 45, Alkaline Phosphatase 970H, Total Protein 8.5H, Albumin 2.5L, Albumin/Globulin Ratio 0.4L, Triglycerides Level 156H, Total Cholesterol 188, LDL Cholesterol 138H, Non-HDL Cholesterol (LDL + VLDL) 169, Total HDL Cholesterol 19L, Cholesterol/HDL Ratio 9.894H, Immunoglobulin M 106.0 01/26/21 07:59: Bedside Glucose (Misc Panel) 41L 01/26/21 08:40: Bedside Glucose (Misc Panel) 42L 01/26/21 09:32: Bedside Glucose (Misc Panel) 122H CBC/BMP Laboratory Tests 01/26/21 05:29 Microbiology Microbiology 01/25/21 Gastrointestinal Tract Panel (PCR) - Final, Complete 01/24/21 Blood Culture - Preliminary, Resulted No growth after 24 hours . All specim... 01/24/21 Blood Culture - Preliminary, Resulted No growth after 24 hours . All specim... GME ATTESTATION GME ATTESTATION My faculty preceptor for this patient encounter was physically present during the encounter and was fully available. All aspects of the patient interview, examination, medical decision making process, and medical care plan development were reviewed and approved by the faculty preceptor. The faculty preceptor is aware and concurs with the plan as stated in the body of this note and will attest to such by his/her cosignature. ATTENDING NOTE I, Iker Concepcion, have independently examined this patient and performed my own physical exam, as well as reviewed the documentation and edited where necessary. I have discussed in detail with the resident / student the findings and plan of treatment as documented by the resident / student and edited their note. I agree with their findings and treatment plan and have edited their documentation. I will continue to follow the patient during this hospital stay. AMANDA SHIRLEY DO Jan 26, 2021 11:25 IKER CONCEPCION MD Jan 26, 2021 13:16
[2021-01-26 14:00] VITALS: BP 161/61
--- NOTE | 2021-01-26 14:05 | REP ---
INDICATION: cholestatic injury; biliary stricture?. MRCP protocol requested. COMPARISON: Comparison is made with CT imaging from January 24, 2021.. TECHNIQUE: Axial and coronal T2 weighted scans are acquired. MRCP images were attempted however image quality was markedly inhibited by a patient physiologic factors possibly related to a diffuse edematous state and image quality was quite poor. 3D MRCP imaging could not be accomplished. FINDINGS: On T2 weighted scans, the liver is quite enlarged measuring 22 cm in midclavicular vertical span. No focal hepatic lesion is appreciated. The liver parenchyma is diffusely and abnormally low in signal intensity. There is no evidence of biliary ductal dilation. There is a suggestion of periportal edema pattern throughout the liver and surrounding the gallbladder and common bile duct. The spleen is normal in size and homogeneous. There is diffuse extra abdominal subcutaneous edema as seen on the recent chest CT. Pancreas is not well seen. IMPRESSION: Hepatomegaly, diffuse edematous changes in the soft tissues outside the abdomen. Homogeneous low signal intensity throughout the liver. Periportal edema pattern. This is nonspecific and can be seen in hepatitis, CHF, cholangitis, liver and bone marrow transplantation states and blunt trauma. MRCP sequence was of poor uninterpretable quality but bile ducts do not appear dilated based on T2 weighted imaging. <Electronically signed by Kip Rizzo > 01/26/21 1426
[2021-01-26] MEDS: ACETAMINOPHEN TAB 650MG DOSE (2X325MG) PO PRN (15:03)
[2021-01-26 18:00] VITALS: O2SAT 95
--- NOTE | 2021-01-26 19:42 | IPN ---
NEPHROLOGY PROGRESS NOTE DATE: 01/26/2021 SUBJECTIVE: Ms. Mireles is seen this morning at her bedside. She is feeling better and still reports some shortness of breath on exertion. She denies any nausea or vomiting. She was dialyzed yesterday, and we were able to remove 4 liters of fluid. Her weight is down to 85.7 kg today. We have discussed with her about the need for fluid restriction. She asked several questions and feels that she did not have any counseling about her fluid restrictions before. OBJECTIVE: PHYSICAL EXAMINATION: VITAL SIGNS: Temperature 98 degrees Fahrenheit, heart rate 78 per minute, respiratory rate 18 per minute, blood pressure 132/80 mm of mercury and oxygen saturation is 97%. HEENT: Head is atraumatic. NECK: Supple and without JVD or thyroid enlargement. Dialysis catheter is intact in the right upper chest. HEART: Regular. LUNGS: Clear to auscultation. ABDOMEN: Soft and nontender and bowel sounds are normal. EXTREMITIES: Without any cyanosis or clubbing. Her left foot is in the dressing. We did not remove the socks or dressing. NEUROLOGICAL: She has no focal deficits. LABORATORY STUDIES: Today's labs show a white blood cell count of 10.7, hemoglobin 9.2 and hematocrit 27.8, platelet count 597. Sodium 134, potassium 3.7, CO2 27, BUN 20 and creatinine 3.37. Calcium 9.2 and total bilirubin is 4.8. Total protein is 8.5 and albumin is 2.5. PROBLEMS: 1. End-stage renal disease - The patient was dialyzed yesterday and we plan to dialyze again on Thursday. 2. Shortness of breath and hypervolemia volume status is much improved. We removed 4 liters of fluid yesterday and we will reevaluate her volume status on Thursday again for further fluid removal with the next dialysis. 3. Hypertension - blood pressure control has improved significantly with resuming her antihypertensive medications and volume correction. 4. Anemia her anemia has also improved with transfusion of 2 units of packed RBCs. 5. Diabetes her blood sugars are much better controlled here in the hospital. She did have kiln drawer hypoglycemia, however it has now improved.
[2021-01-26] MEDS: LEVEMIR (INSULIN DETEMIR) 1 UNITS/0.01ML SC SCH (20:52)
[2021-01-26 22:00] VITALS: BP 154/89
[2021-01-27 06:00] VITALS: BP 146/84
[2021-01-27] MEDS: HEPARIN SOD (PORCINE) 5000UNITS/ML 1ML VIAL/SYRINGE SC SCH ×3 (06:42→21:30)
[2021-01-27 07:30] LABS: BASO # 0.1 10^3/uL (0.0-0.2); BASO % 0.7 % (0.0-1.0); EOS # 0.4 10^3/uL (0.0-0.5); EOS % 4.5 % (0.0-3.0); HEMATOCRIT 28.7 % (36.0-47.0); HEMOGLOBIN 9.2 g/dl (12.0-15.5); LYMPH # 1.1 10^3/uL (1.5-5.0); LYMPH % 11.9 % (24.0-44.0); MEAN CORPUSCULAR HEMOGLOBIN 29.4 pg (27.0-33.0); MEAN CORPUSCULAR HGB CONC 32.1 g/dl (32.0-36.5); MEAN CORPUSCULAR VOLUME 91.7 fl (80.0-96.0); MONO # 0.6 10^3/uL (0.0-0.8); MONO % 6.6 % (2.0-8.0); NEUTROPHILS # 7.1 10^3/uL (1.5-8.5); NEUTROPHILS % 75.2 % (36.0-66.0); PLATELET COUNT, AUTOMATED 600 10^3/uL (150-450); RED BLOOD COUNT 3.13 10^6/uL (4.00-5.40); WHITE BLOOD COUNT 9.5 10^3/uL (4.0-10.0)
[2021-01-27 08:08] LABS: ALBUMIN 2.5 GM/DL (3.2-5.2); ALT/SGPT 50 U/L (12-78); BILIRUBIN,TOTAL 4.8 MG/DL (0.2-1.0); BLOOD UREA NITROGEN 39 MG/DL (7-18); CALCIUM LEVEL 8.7 MG/DL (8.5-10.1); CARBON DIOXIDE LEVEL 24 MEQ/L (21-32); CHLORIDE LEVEL 98 MEQ/L (98-107); CREATININE FOR GFR 4.95 MG/DL (0.55-1.30); GLUCOSE, FASTING 196 MG/DL (70-100); MAGNESIUM LEVEL 2.9 MG/DL (1.8-2.4); POTASSIUM SERUM 4.5 MEQ/L (3.5-5.1); SODIUM LEVEL 133 MEQ/L (136-145); TOTAL PROTEIN 7.5 GM/DL (6.4-8.2)
[2021-01-27] MEDS: ASPIRIN 81MG ENTERIC TABLET PO SCH (08:26)
[2021-01-27] MEDS: HumaLOG INSULIN (NovoLOG) PER UNIT SC SCH ×4 (08:26→21:00)
[2021-01-27] MEDS: (RENVELA) SEVELAMER **CARBONate** 800 MG TAB PO SCH ×3 (08:27→18:30)
[2021-01-27] MEDS: FUROSEMIDE 80 MG TAB PO SCH ×2 (08:27→21:31)
[2021-01-27] MEDS: CALCITRIOL 0.25 MCG CAP (S0169) PO SCH (08:27)
[2021-01-27] MEDS: LACTOBACILLUS ACIDOPHILUS CAP (BACID) PO SCH ×2 (08:27→18:30)
[2021-01-27] MEDS: ISOSORBIDE MON. (IMDUR) 60 MG XR TAB PO SCH (08:28)
[2021-01-27] MEDS: LOSARTAN 50MG TABLET PO SCH ×2 (08:29→21:31)
[2021-01-27] MEDS: **hydrALAZINE HCL** 25 MG TAB PO SCH ×3 (08:29→21:30)
[2021-01-27] MEDS: METOPROLOL TARTRATE 100 MG TAB PO SCH ×2 (08:29→21:31)
[2021-01-27] MEDS: NIFEdipine 30 MG XL TAB PO SCH (08:32)
[2021-01-27 09:30] VITALS: O2SAT 95
--- NOTE | 2021-01-27 11:13 | IPNPDOC ---
Text Note Date of Service The patient was seen on 01/27/21. NOTE Subjective: Patient is a 35-year-old female with a PMHx of Diastolic CHF (EF: 60%) / Pulmonary HTN, HTN, IDDM1, ESRD on HD (MWF), Neuropathy, Retinopathy, with mul tiple complications, Hx of Osteomyelitis / Diabetic foot ulcers, Hx of C. diff colitis (12/01/2020), who presented to ER with chest pain, SOB and diarrhea. Patient has had multiple admissions at [facility] for noncompliance with medications. Patient is currently in housing with the [facility] director of social services. Patient was seen and examined at the bedside currently reports that her breathing is doing better. Denies chest pain. Reports some diffuse abdominal discomfort. Denies any nausea, vomiting or diarrhea. Denies any urinary discomfort. Objective: Vitals (See below) General: Patient is laying in bed, was sleeping but woke upon my arrival, awake and alert, oriented to person, place and time HEENT: NC, AT CVS: +S1S2 Lungs: Auscultation is fair, does not appear to be any appreciated, rhonchi, crackles or wheezing Abdomen: Soft, hepatomegaly noted on palpation, tenderness at LUQ (mild) Extremities: Trace pitting edema Imaging: CXR 01/24: Asymmetric opacities in the left lung suggesting asymmetric pulmonary edema or developing pneumonia. CT angio Chest 01/24: 1. Left greater than right diffuse ground-glass opacities and linear interstitial thickening suggesting pulmonary edema. 2. No other airspace consolidation. 3. Pulmonary embolism. 4. Cardiomegaly. Liver US 01/25: No gallstones, but there is significant diffuse gallbladder wall thickening up to 14 mm. Cholecystitis is not excluded. Mild free fluid around the liver. No biliary dilatation. Mild hepatomegaly. Findings of medical renal disease. MRCP 01/26: Hepatomegaly, diffuse edematous changes in the soft tissues outside the abdomen. Homogeneous low signal intensity throughout the liver. Periportal edema pattern. This is nonspecific and can be seen in hepatitis, CHF, cholangitis, liver and bone marrow transplantation states and blunt trauma. MRCP sequence was of poor uninterpretable quality but bile ducts do not appear dilated based on T2 weighted imaging. Assessment and plan: Dyspnea - likely 2/2 fluid overload - Reports breathing is improved - Does not appear to have any signs of fluid overload - Continue with strict ins and outs, daily weights, fluid restrictions - c/w diuresis and dialysis as scheduled s/p Chest Pain - EKG negative - Troponin x 3 negative Elevated alkaline phosphatase / Bilirubin - Currently patient reports left upper quadrant tenderness; at upper quadrant reveals hepatomegaly but no significant tenderness - Bilirubin has been slightly improving - Autoimmune workup pending; MEEK / Anti-mitochondrial Ab pending - Hepatitis panel was negative in 2019; repeat pending - Imaging noted above - Will start Ursodiol - Will likely need outpatient follow up with gastroenterology s/p Diarrhea - c/w Probiotic HTN; s/p Hypertensive urgency - Patient is noncompliant with medications - BP moderately controlled - c/w furosemide, hydralazine, isosorbide mononitrate, metoprolol, nifedipine, losartan, amlodipine ESRD on HD (MWF) - Nonfunctioning right arm AV fistula - R PermCath in place - Nephrology on consultation; we appreciate their input IDDM1; poorly controlled - Patient is noncompliant with medications - A1c 10 - c/w ISS - c/w Levemir at reduced dose Chronic diabetic left foot ulcer - Wound does not appear to have any active signs of infection - Hemodynamically stable and afebrile - s/p Leukocytosis - c/w Wound care - Podiatry (Dr. Mondragon) on consult; appreciate their input Anemia likely 2/2 to ESRD - s/p 2 units PRBC - Hg at baseline / will trend Hyponatremia - likely 2/2 hypervolemia - c/w Dialysis as scheduled DVT prophylaxis - c/w Heparin Disposition: - Awaiting clinical improvement - Currently in housing provided by [facility] she stated they will no longer pay for her after January 31 - PFS consult on Thursday VS,Kiana, I+O VS, Elliotbone, I+O Laboratory Tests 01/27/21 07:20 Vital Signs Date Time Temp Pulse Resp B/P (MAP) Pulse Ox O2 Delivery O2 Flow Rate FiO2 01/27/21 08:29 73 01/27/21 08:28 155/95 01/27/21 06:00 97.2 21 97 Nasal Cannula 2.0 01/25/21 14:00 95 I&O- Last 24 Hours up to 6 AM 01/27/21 06:00 Intake Total 1630 ml Output Total 50 ml Balance 1580 ml JOSE A CONCEPCION MD Jan 27, 2021 11:13
[2021-01-27 14:00] VITALS: BP 162/97
[2021-01-27] MEDS: LEVEMIR (INSULIN DETEMIR) 1 UNITS/0.01ML SC SCH (21:32)
[2021-01-27 22:00] VITALS: BP 165/95
[2021-01-28 06:00] VITALS: BP 164/74
[2021-01-28 06:17] LABS: BASO # 0.1 10^3/uL (0.0-0.2); BASO % 0.8 % (0.0-1.0); EOS # 0.5 10^3/uL (0.0-0.5); EOS % 4.4 % (0.0-3.0); HEMATOCRIT 30.8 % (36.0-47.0); LYMPH # 1.1 10^3/uL (1.5-5.0); MEAN CORPUSCULAR HEMOGLOBIN 29.1 pg (27.0-33.0); MEAN CORPUSCULAR HGB CONC 32.5 g/dl (32.0-36.5); MEAN CORPUSCULAR VOLUME 89.5 fl (80.0-96.0); MONO # 0.7 10^3/uL (0.0-0.8); MONO % 6.4 % (2.0-8.0); NEUTROPHILS # 8.3 10^3/uL (1.5-8.5); NEUTROPHILS % 77.1 % (36.0-66.0); PLATELET COUNT, AUTOMATED 697 10^3/uL (150-450); RED BLOOD COUNT 3.44 10^6/uL (4.00-5.40); WHITE BLOOD COUNT 10.8 10^3/uL (4.0-10.0)
[2021-01-28 06:45] LABS: ALBUMIN 2.5 GM/DL (3.2-5.2); BILIRUBIN,TOTAL 4.3 MG/DL (0.2-1.0); CALCIUM LEVEL 9.4 MG/DL (8.5-10.1); CREATININE FOR GFR 6.05 MG/DL (0.55-1.30); GLOMERULAR FILTRATION RATE 10.3 (>60); MAGNESIUM LEVEL 2.9 MG/DL (1.8-2.4); POTASSIUM SERUM 4.4 MEQ/L (3.5-5.1); TOTAL PROTEIN 8.6 GM/DL (6.4-8.2)
[2021-01-28] MEDS: HEPARIN SOD (PORCINE) 5000UNITS/ML 1ML VIAL/SYRINGE SC SCH ×3 (06:56→21:07)
[2021-01-28 07:25] LABS: C REACTIVE PROTEIN QUANTITATIV 5.31 MG/DL (0.00-0.30)
[2021-01-28] MEDS: (RENVELA) SEVELAMER **CARBONate** 800 MG TAB PO SCH ×3 (08:00→17:58)
[2021-01-28] MEDS: HumaLOG INSULIN (NovoLOG) PER UNIT SC SCH ×4 (08:17→20:44)
[2021-01-28] MEDS: ISOSORBIDE MON. (IMDUR) 60 MG XR TAB PO SCH (08:18)
[2021-01-28] MEDS: FUROSEMIDE 80 MG TAB PO SCH ×2 (08:18→21:06)
[2021-01-28] MEDS: ASPIRIN 81MG ENTERIC TABLET PO SCH (08:18)
[2021-01-28] MEDS: LACTOBACILLUS ACIDOPHILUS CAP (BACID) PO SCH ×2 (08:18→17:58)
[2021-01-28] MEDS: LOSARTAN 50MG TABLET PO SCH ×2 (08:18→21:06)
[2021-01-28] MEDS: CALCITRIOL 0.25 MCG CAP (S0169) PO SCH (08:18)
[2021-01-28] MEDS: **hydrALAZINE HCL** 25 MG TAB PO SCH ×3 (08:19→21:06)
[2021-01-28] MEDS: NIFEdipine 30 MG XL TAB PO SCH (08:19)
[2021-01-28] MEDS: METOPROLOL TARTRATE 100 MG TAB PO SCH ×2 (08:20→21:07)
[2021-01-28 09:00] VITALS: O2SAT 94
--- NOTE | 2021-01-28 09:32 | IPN ---
NEPHROLOGY PROGRESS NOTE DATE: 01/27/2021 SUBJECTIVE: Ms. Mireles is seen this afternoon on her bedside. She is feeling better and denies any nausea or vomiting. She has no fever or chills. She still has some dyspnea on exertion. PHYSICAL EXAMINATION: Temperature 97.3 degrees Fahrenheit, heart rate 72 per minute, respiratory rate 18 per minute, blood pressure 162/97 mmHg, oxygen saturation 98%. HEAD: Atraumatic. NECK: Supple and without any jugular venous distention (JVD) or thyroid enlargement. Dialysis catheter is intact in right internal jugular vein. ABDOMEN: Soft with some tenderness in the right upper quadrant. Bowel sounds are normal. EXTREMITIES: Without any cyanosis or clubbing. Lower extremity edema has improved significantly NEUROLOGIC: She is at her baseline mentation without any focal deficits. LABORATORY DATA: Today's labs show WBC 9.5, hemoglobin 9.2, hematocrit 28.7. Sodium 133, potassium 4.5, CO2 24, BUN 39, creatinine 4.95. Total bilirubin 4.8, AST 61, ALT 50, alkaline phosphatase 962, total protein 7.5, albumin 2.5. PROBLEMS: 1. End-stage renal disease. Patient was dialyzed on Thursday and we will plan her next dialysis tomorrow. At this point, there is no emergent need for dialysis today. 2. Shortness of breath and volume overload. Her volume status has improved significantly with dialysis and fluid removal. She should continue with fluid restriction of 1500 mL per day. 3. Hypertension. Blood pressure slightly high again today and likely to improve with further dialysis and fluid removal tomorrow. She should continue with her chronic antihypertensive medications. 4. Anemia. Her anemia has improved since admission after transfusion. She will continue with weekly dose of Aranesp. 5. Abnormal liver enzymes and elevated bilirubin level. Her abdominal MRI was done yesterday which showed hepatomegaly and diffuse edematous changes in the soft tissues. Periportal edema was noticed, most likely related to congestive heart failure (CHF) and volume overload. Bile ducts were not noticed to be dilated. At this point, we will continue to monitor and consider getting HIDA scan tomorrow to assess the function of her gallbladder. 6. Diabetes. Her diabetes is much better controlled in the hospital, but has been poorly controlled outpatient.
--- NOTE | 2021-01-28 10:14 | IPNPDOC ---
Text Note Date of Service The patient was seen on 01/28/21. NOTE Subjective: No acute events overnight. Pt states that she feels like her SOB and CP are doing better however, she still has intermittent chest pain. Reports that she still has orthopnea and exertional dyspnea but is better since admission. She states that she still has the RUQ abd pain. Reports that her diarrhea has improved and she is now having one loose stool a day. Reports seeing blood when wiping but no blood in stool noted. C/o "bumps" on her abd where she receives heparin injections. Denies any nausea, vomiting. Objective: VITALS: See below. GENERAL: Pt is sitting up in bed, comfortably at rest. HEENT: NC/AT. Scleral icterus. EOMI. CARDIOVASCULAR: Regular rate and rhythm. No murmurs, rubs, or gallops appreciated. PULMONARY: Clear to auscultation. Good air movement. No wheezes, rales, or rhonchi appreciated. ABD: Soft. RUQ tenderness to palpation. Distended abd. Hepatomegaly appreciated. Hematoma appreciated to abd where pt reports she received heparin shots. EXTREMITIES: 1+ pitting edema to BLE up to knees NEURO: No gross neurological deficits appreciated. Assessment/Plan: Patient is a 35-year-old female with a PMHx of Diastolic CHF (EF: 60%) / Pulmonary HTN, HTN, IDDM1, ESRD on HD (MWF), Neuropathy, Retinopathy, with multiple complications, Hx of Osteomyelitis / Diabetic foot ulcers, Hx of C. diff colitis (12/01/2020), who presented to ER with chest pain, SOB and diarrhea. Pt was admitted for further evaluation of fluid overload and diarrhea. #Dyspnea - Likely 2/2 fluid overload, possibly CHF exacerbation. Pt has hx of CHF exacerbation and HFpEF with EF of 60%. - States that she still has orthopnea and exertional dyspnea but that has much improved since admission. - Appears that pt fluid status is improved as pt lower extremity edema has improved. Lungs were clear to auscultation. - Will continue monitoring fluid status with strict in's and out's, daily weight s, and fluid restriction. - Will continue with diuresis with Lasix 80 mg PO BID. - Pt continuing hemodialysis with nephrology. #Chest pain - Possibly 2/2 CHF exacerbation. - Troponins have been negative x3. EKG showed no acute ST or T wave changes. - Pt states that her chest pain has improved. #Abnormal liver profile - Pt total bilirubin is elevated at 4.3. AST elevated at 57. Alk phos is elevated at 1216 and is up trending. - Liver US showed no gallstones, diffuse gallbladder wall thickening up to 14 mm, mild free fluid around the liver, no biliary dilatation, and mild hepatomegaly. - Abd MRI shows hepatomegaly, diffuse edematous changes in the soft tissues outside the abd, homogenous low signal intensity throughout the liver, periportal edema pattern, this is nonspecific and can be seen in hepatitis, CHF, cholangitis, liver and bone marrow transplantation states and blunt trauma. - HIDA scan done and findings consistent with advanced cholestasis. Poor hepatocellular parenchymal washout. Gallbladder is visualized in a normal time interval and there is some radiotracer in the small intestine. This mitigates against biliary obstruction. - Hepatitis panel ordered and pending. - MEEK, ANCA, and anti-mitochondrial ab ordered and pending to r/o autoimmune causes of liver disease. #Diarrhea - This appears to be a chronic issue for pt. Pt states that her diarrhea has gotten better and only had one episode of diarrhea yesterday. No blood in stool but notes blood when wiping. - GI panel was negative. - Will continue with Bacid. #Anemia - Likely 2/2 ESRD. - Pt has received 2 units PRBC last week. - Hgb at baseline and has been up trending since admission. - Will continue to monitor with daily CBC's. #Leukocytosis - Appears to be chronically elevated in pt. - Pt has chronic diabetic foot ulcer to the L foot but does not appear cellulitic. - She has been afebrile and is hemodynamically stable. - WBC was 9.5 and WNL yesterday but is slightly elevated at 10.8 today. - Will continue to monitor. #ESRD on HD MWF - Pt has R PermCath in place. - Nephrology has been consulted and pt is receiving hemodialysis. #IDDM1 - Sliding scale insulin with hypoglycemic protocol in place. - Consistent carb diet. #Chronic diabetic L foot ulcer - Does not appear cellulitic. - Continue with wound care. #Hyponatremia - Likely 2/2 hypervolemia. - Will continue with diuresis and dialysis. - Will continue to monitor. DVT Prophylaxis: Heparin 5,000 unitis SC. Disposition: Pending clinical improvement. rehabilitation services counselor has been consulted for potential placement. VS,Fishbone, I+O VS, Fishbone, I+O Laboratory Tests 01/28/21 05:12 Vital Signs Date Time Temp Pulse Resp B/P (MAP) Pulse Ox O2 Delivery O2 Flow Rate FiO2 01/28/21 08:20 78 162/82 01/28/21 06:00 98.5 17 100 Room Air 01/27/21 21:00 0.0 01/25/21 14:00 95 I&O- Last 24 Hours up to 6 AM 01/28/21 05:59 Intake Total 777 ml Output Total 0 ml Balance 777 ml GME ATTESTATION GME ATTESTATION My faculty preceptor for this patient encounter was physically present during the encounter and was fully available. All aspects of the patient interview, examination, medical decision making process, and medical care plan development were reviewed and approved by the faculty preceptor. The faculty preceptor is aware and concurs with the plan as stated in the body of this note and will attest to such by his/her cosignature. ATTENDING NOTE I, Iker Concepcion, have independently examined this patient and performed my own physical exam, as well as reviewed the documentation and edited where necessary. I have discussed in detail with the resident / student the findings and plan of treatment as documented by the resident / student and edited their note. I agree with their findings and treatment plan and have edited their documentation. I will continue to follow the patient during this hospital stay. Janell CORDOBA S-3 Jan 28, 2021 10:14 IKER CONCEPCION MD Jan 28, 2021 12:17 PARUL CLEVELAND D.O. Jan 28, 2021 14:25
[2021-01-28 12:38] LABS: HEPATITIS B SURFACE ANTIGEN NEGATIVE (NEGATIVE)
[2021-01-28] MEDS: DEXTROSE 50% 50 ML SYRINGE IV PRN (12:41)
[2021-01-28 12:47] LABS: HEPATITIS B CORE ANTIBODY IGM NEGATIVE (NEGATIVE); HEPATITIS C VIRUS ABY INDEX 0.1 INDEX (<0.8)
[2021-01-28 12:50] LABS: HEPATITIS A ANTIBODY IGM NEGATIVE (NEGATIVE)
--- NOTE | 2021-01-28 13:08 | REP ---
INDICATION: RUQ tenderness. COMPARISON: Six views comparison sonography January 25, 2021. Comparison MRI study January 26, 2021.. TECHNIQUE/RADIOTRACER AND DOSE: 6.4 mCi of Technetium-99m mebrofenin was injected and sequential anterior images are acquired. FINDINGS: The initial hepatocellular parenchymal uptake phase is homogeneous. Uptake is seen in the gallbladder beginning at 10 minutes but there is poor washout from the liver parenchyma over the following 60 minutes of imaging. There is some uptake in the small intestine. Findings are consistent with cholestasis and advanced hepatocellular dysfunction. No focal lesion is seen. IMPRESSION: Findings consistent with advanced cholestasis. Poor hepatocellular parenchymal washout. Gallbladder is visualized in a normal time interval and there is some radiotracer in the small intestine. This mitigates against biliary obstruction. <Electronically signed by Kip Rizzo > 01/28/21 0918
--- NOTE | 2021-01-28 13:26 | IPN ---
PROGRESS NOTE DATE: 01/28/2021 SUBJECTIVE: Ms. Mireles is seen this morning at her bedside. Her main complaint is generalized ___. She denies any dyspnea, chest pain, nausea, vomiting, abdominal pain, fever or chills. She is comfortably lying in the bed and waiting for HIDA scan which is scheduled for 11:30 a.m. OBJECTIVE: On physical exam: VITAL SIGNS: Temperature 98.5 degrees Fahrenheit, heart 78 per minute, respiratory rate 18 per minute, blood pressure 162/82 mmHg and oxygen saturation 100%. HEAD: Atraumatic. NECK: Supple, without JVD or thyroid enlargement. Hemodialysis catheter in right internal jugular vein is intact. HEART: Sounds are regular. LUNGS: Clear to auscultation. ABDOMEN: Soft with minimal tenderness in the right upper quadrant. She has hepatomegaly. Bowel sounds normal. EXTREMITIES: Without any cyanosis or clubbing. NEUROLOGIC: She is awake, alert, and at her baseline mentation. Today's labs show WBC 10.8, hemoglobin 10.0, hematocrit 30.8. Platelets 697. Sodium 131, potassium 4.4, CO2 21, BUN 54, creatinine 6.0, glucose 296 and calcium 9.4. Total bilirubin is down to 4.3, AST 57, ALT 52 and alkaline phosphatase up to 1216. C-reactive protein is 5.31. PROBLEMS: 1. End-stage renal disease. The patient is due for hemodialysis later today. She will be dialyzed this afternoon. 2. Hypervolemia and shortness of breath. Her volume status has improved significantly with 4 liter fluid removal on Thursday. Will try another 3.5 liter fluid removal today with dialysis. 3. Hyponatremia. She has mild hyponatremia which is partially related to end-stage renal disease and partially related to hyperglycemia. No specific intervention is needed and this will improve with dialysis. 4. Elevated serum bilirubin. The patient is relatively asymptomatic. She is having a HIDA scan done today; I will wait for the results. No specific intervention at this point. 5. Anemia. Her anemia has been stable following transfusion on . At this point will continue with weekly dose of Aranesp. 6. Hypertension. Blood pressure control is much better here in the hospital while she takes her medications. At home she has been mostly noncompliant with her medication. The blood pressure is usually not controlled. 7. Diabetes. Her blood sugars are better controlled in the hospital and she will continue with insulin regimen. nadir
[2021-01-28] MEDS: ACETAMINOPHEN TAB 650MG DOSE (2X325MG) PO PRN (18:09)
[2021-01-28] MEDS: LEVEMIR (INSULIN DETEMIR) 1 UNITS/0.01ML SC SCH (21:05)
[2021-01-28 22:00] VITALS: BP 162/85
[2021-01-29] MEDS: HEPARIN SOD (PORCINE) 5000UNITS/ML 1ML VIAL/SYRINGE SC SCH ×3 (05:35→20:48)
[2021-01-29 06:00] VITALS: BP 174/102
[2021-01-29 06:10] LABS: BASO # 0.1 10^3/uL (0.0-0.2); BASO % 0.9 % (0.0-1.0); EOS # 0.5 10^3/uL (0.0-0.5); HEMATOCRIT 31.3 % (36.0-47.0); HEMOGLOBIN 10.2 g/dl (12.0-15.5); LYMPH # 1.3 10^3/uL (1.5-5.0); LYMPH % 11.6 % (24.0-44.0); MEAN CORPUSCULAR HEMOGLOBIN 29.1 pg (27.0-33.0); MEAN CORPUSCULAR HGB CONC 32.6 g/dl (32.0-36.5); MEAN CORPUSCULAR VOLUME 89.2 fl (80.0-96.0); MONO # 0.8 10^3/uL (0.0-0.8); MONO % 6.9 % (2.0-8.0); NEUTROPHILS # 8.5 10^3/uL (1.5-8.5); NEUTROPHILS % 75.4 % (36.0-66.0); PLATELET COUNT, AUTOMATED 680 10^3/uL (150-450); RED BLOOD COUNT 3.51 10^6/uL (4.00-5.40); WHITE BLOOD COUNT 11.3 10^3/uL (4.0-10.0)
[2021-01-29 06:21] VITALS: BP 162/98
[2021-01-29 06:55] LABS: ALBUMIN 2.6 GM/DL (3.2-5.2); BILIRUBIN,TOTAL 4.2 MG/DL (0.2-1.0); CALCIUM LEVEL 9.3 MG/DL (8.5-10.1); CREATININE FOR GFR 4.27 MG/DL (0.55-1.30); GLOMERULAR FILTRATION RATE 15.4 (>60); MAGNESIUM LEVEL 2.6 MG/DL (1.8-2.4); TOTAL PROTEIN 9.1 GM/DL (6.4-8.2)
[2021-01-29] MEDS: HumaLOG INSULIN (NovoLOG) PER UNIT SC SCH ×4 (07:30→20:45)
[2021-01-29 08:53] LABS: BILIRUBIN,DIRECT 3.7 MG/DL (0.0-0.2)
[2021-01-29] MEDS: CALCITRIOL 0.25 MCG CAP (S0169) PO SCH (09:19)
[2021-01-29] MEDS: (RENVELA) SEVELAMER **CARBONate** 800 MG TAB PO SCH ×3 (09:20→18:54)
[2021-01-29] MEDS: ACETAMINOPHEN TAB 650MG DOSE (2X325MG) PO PRN (09:20)
[2021-01-29] MEDS: LACTOBACILLUS ACIDOPHILUS CAP (BACID) PO SCH ×2 (09:20→18:54)
[2021-01-29] MEDS: ASPIRIN 81MG ENTERIC TABLET PO SCH (09:20)
[2021-01-29] MEDS: FUROSEMIDE 80 MG TAB PO SCH ×2 (09:21→20:46)
[2021-01-29] MEDS: METOPROLOL TARTRATE 100 MG TAB PO SCH ×2 (09:26→20:48)
[2021-01-29] MEDS: **hydrALAZINE HCL** 25 MG TAB PO SCH (09:27)
[2021-01-29] MEDS: ISOSORBIDE MON. (IMDUR) 60 MG XR TAB PO SCH (09:27)
[2021-01-29] MEDS: LOSARTAN 50MG TABLET PO SCH ×2 (09:27→20:47)
[2021-01-29] MEDS: NIFEdipine 30 MG XL TAB PO SCH (09:27)
--- NOTE | 2021-01-29 12:47 | IPN ---
NEPHROLOGY PROGRESS NOTE DATE: 01/29/2021 SUBJECTIVE: Ms. Mireles is seen this morning on her bedside. She has complaint of pain in her right forearm just below the elbow area. She denies any dyspnea, chest pain, nausea or vomiting. She is eating breakfast at the time of my visit, sitting in the bed. PHYSICAL EXAMINATION: Temperature 98.5 degrees Fahrenheit, heart rate 72 per minute, respiratory rate 18 per minute, blood pressure this morning was 162/98 and most recent one is 180/104 mmHg. HEAD: Atraumatic. NECK: Supple and without jugular venous distention (JVD) or thyroid enlargement. Dialysis catheter in right upper chest is intact. HEART SOUNDS: Regular. LUNGS: Clear to auscultation. ABDOMEN: Soft and nontender. Bowel sounds are normal. EXTREMITIES: Without any cyanosis or clubbing. NEUROLOGIC: She is grossly intact without a focal deficit. LABORATORY DATA: Today's labs show WBC 11.3, hemoglobin 10.2, hematocrit 31.3. Sodium 132, potassium 4.0, BUN 33, creatinine 4.27. Total bilirubin 4.2, direct bilirubin 3.7, AST 82, ALT 72, alkaline phosphatase 1197, total protein 9.1, albumin 2.6. PROBLEMS: 1. End-stage renal disease. Patient was dialyzed yesterday and next dialysis will be scheduled for tomorrow. At present, no emergent need for dialysis today. 2. Hypertension. Blood pressure is somewhat high today, which is unusual, as her blood pressure has been very well-controlled. She just took her morning medications and we will see how she does. I am going to make some adjustments and stop her nifedipine and increase her hydralazine dose to 100 mg three times a day. She is also on amlodipine 10 mg daily, which will be continued. I do not feel that she needs nifedipine and amlodipine both. 3. Anemia. Her anemia has been stable since she was transfused. No other intervention is needed. 4. Abnormal liver function tests (LFTs). She has elevated bilirubin with slight increase in the transaminases. All workup, including gallbladder ultrasound and MRI has been negative for any obstruction. 5. Hypervolemia and peripheral edema. Volume status has improved with aggressive fluid removal with dialysis. She will be dialyzed again tomorrow and we will try to remove as much fluid as she could tolerate. 6. Diabetes. Her blood pressure is not well-controlled and diabetes also not very well controlled as an outpatient. Here in the hospital, her diabetes seems to be doing much better. She will continue with insulin per sliding scale.
--- NOTE | 2021-01-29 13:09 | IPNPDOC ---
Text Note Date of Service The patient was seen on 01/29/21. NOTE Subjective: No acute events overnight. Pt reports that her chest pain has resolved. Reports that she has not had an episode of diarrhea yesterday and that seems to be improving. Pt reports some mild RUQ abd tenderness and slight SOB. Pt has been able to sleep without difficulty and states that her orthopnea has improved. Objective: VITALS: See below. GENERAL: Pt is laying in bed, comfortably at rest. HEENT: NC/AT. Scleral icterus. EOMI. CARDIOVASCULAR: Regular rate and rhythm. No murmurs, rubs, or gallops appreciated. PULMONARY: Clear to auscultation. Good air movement. No wheezes, rales, or rhonchi appreciated. ABD: Soft. RUQ tenderness to palpation. Distended abd. Hepatomegaly appreciated. Hematoma appreciated to abd where pt reports she received heparin shots. EXTREMITIES: 1+ pitting edema to BLE to ankles. NEURO: No gross neurological deficits appreciated. Assessment/Plan: Patient is a 35-year-old female with a PMHx of Diastolic CHF (EF: 60%) / Pulmonary HTN, HTN, IDDM1, ESRD on HD (MWF), Neuropathy, Retinopathy, with multiple complications, Hx of Osteomyelitis / Diabetic foot ulcers, Hx of C. diff colitis (12/01/2020), who presented to ER with chest pain, SOB and diarrhea. Pt was admitted for further evaluation of fluid overload and diarrhea. #Dyspnea - Likely 2/2 fluid overload, possibly CHF exacerbation. Pt has hx of CHF exacerbation and HFpEF with EF of 60%. - Pt reports that orthopnea and dyspnea has improved significantly since admission. - Appears that pt fluid status is improved as pt lower extremity edema is much improved. - Will continue monitoring fluid status with strict in's and out's, daily weights, and fluid restriction. - Will continue with diuresis with Lasix 80 mg PO BID. - Pt continuing hemodialysis with nephrology. #Chest pain - resolved - Possibly 2/2 CHF exacerbation. - Troponins have been negative x3. EKG showed no acute ST or T wave changes. - Pt reports that her chest pain has resolved. #Abnormal liver profile - Pt total bilirubin is elevated at 4.2. AST elevated at 82. Alk phos is elevated at 1197. - Liver US showed no gallstones, diffuse gallbladder wall thickening up to 14 mm, mild free fluid around the liver, no biliary dilatation, and mild hepatomegaly. - Abd MRI shows hepatomegaly, diffuse edematous changes in the soft tissues outside the abd, homogenous low signal intensity throughout the liver, periportal edema pattern, this is nonspecific and can be seen in hepatitis, CHF, cholangitis, liver and bone marrow transplantation states and blunt trauma. - HIDA scan done and findings consistent with advanced cholestasis. Poor hepatocellular parenchymal washout. Gallbladder is visualized in a normal time interval and there is some radiotracer in the small intestine. This mitigates against biliary obstruction. - Hepatitis panel is negative. - MEEK, ANCA, and anti-mitochondrial ab ordered and pending to r/o autoimmune causes of liver disease. - Will have pt follow up with GI after discharge. #Diarrhea - This appears to be a chronic issue for pt. Pt reports that she has not had an episode of diarrhea since yesterday. - GI panel was negative. - Will continue with Bacid. #Anemia - Likely 2/2 ESRD. - Pt has received 2 units PRBC last week at time of admission. - Hgb at baseline and has been up trending since admission. - Will continue to monitor with daily CBC's. #Leukocytosis - Appears to be chronically elevated in pt. - Pt has chronic diabetic foot ulcer to the L foot but does not appear cellulitic. Do not believe this is the source of luekocytosis. - She has been afebrile and is hemodynamically stable. - WBC currently 11.3. - Will continue to monitor. #ESRD on HD MWF - Pt has R PermCath in place. - Nephrology has been consulted and pt is receiving hemodialysis. #IDDM1 - Sliding scale insulin with hypoglycemic protocol in place. - Consistent carb diet. #Chronic diabetic L foot ulcer - Does not appear cellulitic. - Continue with wound care. #Hyponatremia - Likely 2/2 hypervolemia. - Will continue with diuresis and dialysis. - Will continue to monitor. DVT Prophylaxis: Heparin 5,000 unitis SC. Disposition: Pending clinical improvement. According to social worker delinquency prevention, pt will be able to pay rent for her apartment and live there once she receives her disability check on January 31. VS,Fishbone, I+O VS, Fishbone, I+O Laboratory Tests 01/29/21 05:44 Vital Signs Date Time Temp Pulse Resp B/P (MAP) Pulse Ox O2 Delivery O2 Flow Rate FiO2 01/29/21 09:26 80 180/104 01/29/21 06:00 98.5 18 100 Room Air 01/27/21 21:00 0.0 01/25/21 14:00 95 I&O- Last 24 Hours up to 6 AM 01/29/21 06:00 Intake Total 1057 ml Output Total 3500 ml Balance -2443 ml GME ATTESTATION GME ATTESTATION My faculty preceptor for this patient encounter was physically present during the encounter and was fully available. All aspects of the patient interview, examination, medical decision making process, and medical care plan development were reviewed and approved by the faculty preceptor. The faculty preceptor is aware and concurs with the plan as stated in the body of this note and will attest to such by his/her cosignature. ATTENDING NOTE Attending Attestation: Patient independently seen and examined. I have discussed in detail with the resident / student the findings and plan of treatment as documented by the resident / student. I agree with their findings and treatment plan and have edited their documentation. I will continue to follow the patient during this hospital stay. PFS attempting to facilitate expediting housing. Blood pressure elevated, started hydralazine 100 mg PO TID. Janell CORDOBA OMS-3 Jan 29, 2021 13:09 PARUL CLEVELAND D.O. Jan 29, 2021 13:20 KERMIT LARIOS MD Jan 30, 2021 09:22
[2021-01-29 13:15] VITALS: BP 130/90
[2021-01-29 14:00] VITALS: BP 180/100
[2021-01-29] MEDS: **hydrALAZINE** 50 MG TAB PO SCH ×2 (14:32→20:47)
[2021-01-29 16:08] LABS: ANCA-ATYPICAL <1:20 titer (Neg:<1:20); ANTI-MITOCHONDRIAL ANTIBODY <20.0 Units (0.0-20.0); ANTINUCLEAR ANTIBODIES DIRECT Negative (Negative); CYTOPLASMIC NEUTROP AB ANCA-C <1:20 titer (Neg:<1:20); PERINUCLEAR AB ANCA-P <1:20 titer (Neg:<1:20)
[2021-01-29] MEDS ORDERED: SODIUM CHLORIDE NASAL 0.65% SPRAY BTL (OCEAN) PRN (19:00)
[2021-01-29 20:00] VITALS: BP 150/80
[2021-01-29] MEDS: LEVEMIR (INSULIN DETEMIR) 1 UNITS/0.01ML SC SCH (20:45)
[2021-01-30] MEDS: HEPARIN SOD (PORCINE) 5000UNITS/ML 1ML VIAL/SYRINGE SC SCH ×3 (04:34→22:00)
[2021-01-30 05:59] VITALS: BP 155/84
[2021-01-30] MEDS: LACTOBACILLUS ACIDOPHILUS CAP (BACID) PO SCH ×2 (06:26→18:21)
[2021-01-30] MEDS: CALCITRIOL 0.25 MCG CAP (S0169) PO SCH (06:27)
[2021-01-30] MEDS: **hydrALAZINE** 50 MG TAB PO SCH ×3 (06:28→21:27)
[2021-01-30] MEDS: LOSARTAN 50MG TABLET PO SCH ×2 (06:29→21:28)
[2021-01-30] MEDS: FUROSEMIDE 80 MG TAB PO SCH ×2 (06:29→21:28)
[2021-01-30] MEDS: METOPROLOL TARTRATE 100 MG TAB PO SCH ×2 (06:30→21:28)
[2021-01-30] MEDS: ISOSORBIDE MON. (IMDUR) 60 MG XR TAB PO SCH (06:31)
[2021-01-30] MEDS: ASPIRIN 81MG ENTERIC TABLET PO SCH (06:31)
[2021-01-30] MEDS ORDERED: DARBEPOETIN 100 MCG/0.5 ML *DIALYSIS* SYRINGE (J0882) IV SCH (08:05)
[2021-01-30] MEDS: (RENVELA) SEVELAMER **CARBONate** 800 MG TAB PO SCH ×3 (08:22→18:21)
[2021-01-30] MEDS: HumaLOG INSULIN (NovoLOG) PER UNIT SC SCH ×4 (08:22→21:00)
[2021-01-30 09:02] LABS: BASO # 0.1 10^3/uL (0.0-0.2); BASO % 0.6 % (0.0-1.0); EOS # 0.4 10^3/uL (0.0-0.5); EOS % 2.9 % (0.0-3.0); HEMATOCRIT 29.4 % (36.0-47.0); HEMOGLOBIN 9.5 g/dl (12.0-15.5); LYMPH # 1.2 10^3/uL (1.5-5.0); LYMPH % 9.1 % (24.0-44.0); MEAN CORPUSCULAR HEMOGLOBIN 29.5 pg (27.0-33.0); MEAN CORPUSCULAR HGB CONC 32.3 g/dl (32.0-36.5); MEAN CORPUSCULAR VOLUME 91.3 fl (80.0-96.0); MONO # 0.9 10^3/uL (0.0-0.8); MONO % 6.8 % (2.0-8.0); NEUTROPHILS # 10.5 10^3/uL (1.5-8.5); NEUTROPHILS % 79.3 % (36.0-66.0); PLATELET COUNT, AUTOMATED 627 10^3/uL (150-450); RED BLOOD COUNT 3.22 10^6/uL (4.00-5.40); WHITE BLOOD COUNT 13.3 10^3/uL (4.0-10.0)
[2021-01-30 09:52] LABS: ALBUMIN 2.7 GM/DL (3.2-5.2); BILIRUBIN,TOTAL 4.1 MG/DL (0.2-1.0); CALCIUM LEVEL 8.6 MG/DL (8.5-10.1); CREATININE FOR GFR 5.75 MG/DL (0.55-1.30); GLOMERULAR FILTRATION RATE 10.9 (>60); MAGNESIUM LEVEL 2.9 MG/DL (1.8-2.4); PHOSPHORUS LEVEL 7.6 MG/DL (2.5-4.9); POTASSIUM SERUM 4.8 MEQ/L (3.5-5.1); TOTAL PROTEIN 7.7 GM/DL (6.4-8.2)
--- NOTE | 2021-01-30 11:25 | IPNPDOC ---
Text Note Date of Service The patient was seen on 01/30/21. NOTE Subjective: No acute events overnight. Pt states that she feels much better than she did at the time of admission. She still has RUQ abd pain and intermittent chest pain that is the same in characteristic as when she arrived here. She states that her SOB is much better and she has been able to get sleep without difficulties now. Objective: VITALS: See below. GENERAL: Pt is laying in bed, comfortably at rest. HEENT: NC/AT. Scleral icterus. EOMI. CARDIOVASCULAR: Regular rate and rhythm. No murmurs, rubs, or gallops appreciated. PULMONARY: Clear to auscultation. Good air movement. No wheezes, rales, or rhonchi appreciated. ABD: Soft. RUQ tenderness to palpation. Distended abd. Hepatomegaly appreciated. Hematoma appreciated to abd where pt reports she received heparin shots. EXTREMITIES: 1+ pitting edema to BLE to ankles. NEURO: No gross neurological deficits appreciated. Assessment/Plan: Patient is a 35-year-old female with a PMHx of Diastolic CHF (EF: 60%) / Pulmonary HTN, HTN, IDDM1, ESRD on HD (MWF), Neuropathy, Retinopathy, with multiple complications, Hx of Osteomyelitis / Diabetic foot ulcers, Hx of C. diff colitis (12/01/2020), who presented to ER with chest pain, SOB and diarrhea. Pt was admitted for further evaluation of fluid overload and diarrhea. #Dyspnea - Likely 2/2 fluid overload, possibly CHF exacerbation. Pt has hx of CHF exacerbation and HFpEF with EF of 60%. - Pt reports that orthopnea and dyspnea has improved significantly since admission. - Appears that pt fluid status is improved as pt lower extremity edema is much improved. - Will continue monitoring fluid status with strict in's and out's, daily weights, and fluid restriction. - Will continue with diuresis with Lasix 80 mg PO BID. - Pt continuing hemodialysis with nephrology. #Chest pain - resolved - Possibly 2/2 CHF exacerbation. - Troponins have been negative x3. EKG showed no acute ST or T wave changes. - Pt reports that her chest pain is now intermittent and much better than it was at the time of admission. #Abnormal liver profile - Pt total bilirubin is elevated at 4.2. AST elevated at 82. Alk phos is elevated at 1197. - Liver US showed no gallstones, diffuse gallbladder wall thickening up to 14 mm, mild free fluid around the liver, no biliary dilatation, and mild hepatomega ly. - Abd MRI shows hepatomegaly, diffuse edematous changes in the soft tissues outside the abd, homogenous low signal intensity throughout the liver, periportal edema pattern, this is nonspecific and can be seen in hepatitis, CHF, cholangitis, liver and bone marrow transplantation states and blunt trauma. - HIDA scan done and findings consistent with advanced cholestasis. Poor hepatocellular parenchymal washout. Gallbladder is visualized in a normal time interval and there is some radiotracer in the small intestine. This mitigates against biliary obstruction. - Hepatitis panel is negative. - MEEK, ANCA, and anti-mitochondrial ab have resulted negative. Pt ELIZABETH level elevated at 104. DDx for this include sarcoidosis but given that dx of sarcoid requires liver biopsy, will have pt follow up with GI as outpatient. #Diarrhea - This appears to be a chronic issue for pt. Diarrhea has since resolved. - GI panel was negative. - Will continue with Bacid. #Anemia - Likely 2/2 ESRD. - Pt has received 2 units PRBC last week at time of admission. - Hgb at baseline and has been up trending since admission. - Will continue to monitor with daily CBC's. #Leukocytosis - Appears to be chronically elevated in pt. - Pt has chronic diabetic foot ulcer to the L foot but does not appear cellulitic. Do not believe this is the source of luekocytosis. - She has been afebrile and is hemodynamically stable. - WBC currently 11.3. - Will continue to monitor. #ESRD on HD MWF - Pt has R PermCath in place. - Nephrology has been consulted and pt is receiving hemodialysis. #IDDM1 - Sliding scale insulin with hypoglycemic protocol in place. - Consistent carb diet. #Chronic diabetic L foot ulcer - Does not appear cellulitic. - Continue with wound care. #Hyponatremia - Likely 2/2 hypervolemia. - Will continue with diuresis and dialysis. - Will continue to monitor. DVT Prophylaxis: Heparin 5,000 unitis SC. Disposition: Pending clinical improvement. PFS is attempting to facilitate expediting housing for pt. Placement seems to be the issue currently. VS,Fishbone, I+O VS, Fishbone, I+O Laboratory Tests 01/30/21 08:39 Vital Signs Date Time Temp Pulse Resp B/P (MAP) Pulse Ox O2 Delivery O2 Flow Rate FiO2 01/30/21 06:30 74 01/30/21 06:28 157/84 01/30/21 05:59 98.2 18 95 Room Air 01/27/21 21:00 0.0 01/25/21 14:00 95 I&O- Last 24 Hours up to 6 AM 01/30/21 06:00 Intake Total 480 ml Balance 480 ml GME ATTESTATION GME ATTESTATION My faculty preceptor for this patient encounter was physically present during the encounter and was fully available. All aspects of the patient interview, examination, medical decision making process, and medical care plan development were reviewed and approved by the faculty preceptor. The faculty preceptor is aware and concurs with the plan as stated in the body of this note and will attest to such by his/her cosignature. ATTENDING NOTE Attending Attestation: Patient independently seen and examined. I have discussed in detail with the resident / student the findings and plan of treatment as documented by the resident / student. I agree with their findings and treatment plan and have edited their documentation. I will continue to follow the patient during this hospital stay. Janell CORDOBA OMS-3 Jan 30, 2021 11:25 PARUL CLEVELAND D.O. Jan 30, 2021 12:18 KERMIT LARIOS MD Feb 01, 2021 07:09
[2021-01-30] MEDS: ACETAMINOPHEN TAB 650MG DOSE (2X325MG) PO PRN (12:02)
--- NOTE | 2021-01-30 12:08 | IPN ---
NEPHROLOGY PROGRESS NOTE DATE: 01/30/2021 SUBJECTIVE: Ms. Mireles is seen this morning on her bedside. She is sitting in the bed eating breakfast. She denies any new complaints. She has no dyspnea or chest pain. No fever or chills. She denies any nausea or vomiting. PHYSICAL EXAMINATION: Temperature 98.2 degrees Fahrenheit, heart rate 74 per minute, respiratory rate 18 per minute, blood pressure 157/84 mmHg, oxygen saturation 95% on room air. HEAD: Atraumatic. NECK: Supple and jugular venous distention (JVD) not abnormally elevated. Hemodialysis catheter is present in the right internal jugular vein without any signs of infection. HEART SOUNDS: Regular.. LUNGS: Clear to auscultation. ABDOMEN: Soft and nontender. Bowel sounds are normal. EXTREMITIES: Without any cyanosis or clubbing. NEUROLOGIC: She is awake, alert and oriented times three. LABORATORY DATA: Today's labs show WBC 13.3, hemoglobin 9.5, hematocrit 29.4. Sodium 133, potassium 4.8, CO2 21, BUN 54, creatinine 5.75, calcium level 8.6, phosphorus 7.6. AST 62, ALT 66, alkaline phosphatase 1399. PROBLEMS: 1. End-stage renal disease. Patient will be dialyzed this afternoon and will continue with three times a week dialysis. 2. Anemia. Her anemia is stable and we will start with Aranesp 100 mcg once a week. 3. Abnormal liver function tests (LFTs). Her bilirubin is gradually coming down and today it is down to 4.1. She is asymptomatic and all workup has been negative so far. 4. Hypertension. Blood pressure seems better controlled and likely to improve further after dialysis. 5. Hypervolemia. Her volume status has improved significantly and we plan to remove about 3 liters of fluid today with dialysis. 6. Diabetes. Blood sugars are much better controlled now here in the hospital. We will continue with the current insulin regimen.
[2021-01-30 17:15] VITALS: BP 155/63
[2021-01-30 20:00] VITALS: BP 181/99
[2021-01-30] MEDS: LEVEMIR (INSULIN DETEMIR) 1 UNITS/0.01ML SC SCH (21:34)
[2021-01-31] MEDS: ACETAMINOPHEN TAB 650MG DOSE (2X325MG) PO PRN (05:04)
[2021-01-31 05:49] LABS: BASO # 0.1 10^3/uL (0.0-0.2); BASO % 0.7 % (0.0-1.0); EOS # 0.3 10^3/uL (0.0-0.5); EOS % 2.6 % (0.0-3.0); HEMATOCRIT 29.2 % (36.0-47.0); HEMOGLOBIN 9.5 g/dl (12.0-15.5); LYMPH # 1.1 10^3/uL (1.5-5.0); MEAN CORPUSCULAR HEMOGLOBIN 29.5 pg (27.0-33.0); MEAN CORPUSCULAR HGB CONC 32.5 g/dl (32.0-36.5); MEAN CORPUSCULAR VOLUME 90.7 fl (80.0-96.0); MONO # 0.8 10^3/uL (0.0-0.8); MONO % 7.4 % (2.0-8.0); NEUTROPHILS # 8.9 10^3/uL (1.5-8.5); NEUTROPHILS % 78.1 % (36.0-66.0); PLATELET COUNT, AUTOMATED 622 10^3/uL (150-450); RED BLOOD COUNT 3.22 10^6/uL (4.00-5.40); WHITE BLOOD COUNT 11.4 10^3/uL (4.0-10.0)
[2021-01-31 06:00] VITALS: BP 178/100
[2021-01-31] MEDS: HEPARIN SOD (PORCINE) 5000UNITS/ML 1ML VIAL/SYRINGE SC SCH (06:00)
[2021-01-31 06:38] LABS: ALBUMIN 2.6 GM/DL (3.2-5.2); BILIRUBIN,TOTAL 4.4 MG/DL (0.2-1.0); CALCIUM LEVEL 8.8 MG/DL (8.5-10.1); CREATININE FOR GFR 4.11 MG/DL (0.55-1.30); GLOMERULAR FILTRATION RATE 16.1 (>60); MAGNESIUM LEVEL 2.5 MG/DL (1.8-2.4); POTASSIUM SERUM 4.9 MEQ/L (3.5-5.1); TOTAL PROTEIN 7.9 GM/DL (6.4-8.2)
[2021-01-31] MEDS: HumaLOG INSULIN (NovoLOG) PER UNIT SC SCH ×4 (09:46→21:00)
[2021-01-31] MEDS: (RENVELA) SEVELAMER **CARBONate** 800 MG TAB PO SCH ×3 (09:47→18:00)
[2021-01-31] MEDS: LACTOBACILLUS ACIDOPHILUS CAP (BACID) PO SCH ×2 (09:47→18:19)
[2021-01-31] MEDS: ASPIRIN 81MG ENTERIC TABLET PO SCH (09:47)
[2021-01-31] MEDS: CALCITRIOL 0.25 MCG CAP (S0169) PO SCH (09:48)
[2021-01-31] MEDS: FUROSEMIDE 80 MG TAB PO SCH (09:48)
[2021-01-31] MEDS: LOSARTAN 50MG TABLET PO SCH ×2 (09:48→21:01)
[2021-01-31] MEDS: METOPROLOL TARTRATE 100 MG TAB PO SCH ×2 (09:52→21:00)
[2021-01-31] MEDS: **hydrALAZINE** 50 MG TAB PO SCH ×3 (09:52→21:00)
[2021-01-31] MEDS: ISOSORBIDE MON. (IMDUR) 60 MG XR TAB PO SCH (09:53)
[2021-01-31 09:55] VITALS: BP 232/112
--- NOTE | 2021-01-31 12:20 | IPNPDOC ---
Text Note Date of Service The patient was seen on 01/31/21. NOTE SUBJECTIVE: Patient was seen an examined this morning at bedside. She states she is feeling well. No chest pain or shortness of breath currently. She does still complain of some mild RUQ pain radiating to the right flank. OBJECTIVE: VITAL SIGNS: See below GENERAL: Alert, comfortable, in no acute distress HEENT: Normocephalic, atraumatic, scleral icterus, moist mucous membranes CARDIOVASCULAR: Regular rate and rhythm, normal S1 and S2. No murmurs, rubs, or gallops RESPIRATORY: Clear to auscultation bilaterally with equal air entry bilaterally. No wheezing, rhonchi, or rales. ABDOMEN: Tender to palpation over the RUXQ. Soft, nondistended, bowel sounds present EXTREMITIES: 1+ pitting edema up to the knees bilaterally/ Pulses 2+/4 in bilateral upper and lower extremities NEUROLOGIC: No focal deficits appreciated PSYCHIATRIC: Mood and affect appropriate ASSESSMENT/PLAN: 35 year old female with a PMHx of Diastolic CHF (EF: 60%) / Pulmonary HTN, HTN, IDDM1, ESRD on HD (MWF), Neuropathy, Retinopathy, with multiple complications, Hx of Osteomyelitis / Diabetic foot ulcers, Hx of C. diff colitis (12/01/2020), who presented to ER with chest pain, SOB and diarrhea. Pt was admitted for further evaluation of fluid overload and diarrhea. She has also been found to have elevated bilirubin and alk phos with RUQ pain. #Dyspnea - Likely 2/2 fluid overload, possibly CHF exacerbation. Pt has hx of CHF exacer bation and HFpEF with EF of 60%. - Pt reports that orthopnea and dyspnea has improved significantly since admission. - Appears that pt fluid status is improved as pt lower extremity edema is much improved. - Monitor I&O's, daily weights, and fluid restriction. - Fluid removal with Lasix 80 mg PO BID and HD per nephrology. - will recheck echocardiogram today. #Abnormal liver profile -elevated alkaline phos and bilirubin - Liver US showed no gallstones, diffuse gallbladder wall thickening up to 14 mm, mild free fluid around the liver, no biliary dilatation, and mild hepatomegaly. - Abd MRI shows hepatomegaly, diffuse edematous changes in the soft tissues outside the abd, homogenous low signal intensity throughout the liver, periportal edema pattern, this is nonspecific and can be seen in hepatitis, CHF, cholangitis, liver and bone marrow transplantation states and blunt trauma. - HIDA scan done and findings consistent with advanced cholestasis. Poor hepatocellular parenchymal washout. Gallbladder is visualized in a normal time interval and there is some radiotracer in the small intestine. This mitigates against biliary obstruction. - Hepatitis panel is negative. - MEEK, ANCA, and anti-mitochondrial ab have resulted negative. Pt ELIZABETH level elevated at 104. DDx for this include sarcoidosis - ordered liver biopsy today to further evaluate #Chest pain - resolved - Possibly 2/2 CHF exacerbation. - Troponins have been negative x3. EKG showed no acute ST or T wave changes. - Pt reports that her chest pain is now intermittent and much better than it was at the time of admission. #Diarrhea - resolved - This appears to be a chronic issue for pt - GI panel was negative. - Continue Bacid. #Anemia - Likely 2/2 ESRD. - s/p 2 units PRBC during this admission. - Hgb at baseline and has been up trending since admission. - monitor daily #Leukocytosis - Appears to be chronically elevated in pt. - Pt has chronic diabetic foot ulcer to the L foot but does not appear cellulitic. Do not believe this is the source of leukocytosis. - She has been afebrile and is hemodynamically stable. #ESRD on HD MWF - Pt has R PermCath in place. - Nephrology has been consulted and pt is receiving hemodialysis MWF #IDDM1 - Sliding scale insulin with hypoglycemic protocol in place. - Consistent carb diet. #Chronic diabetic L foot ulcer - Does not appear cellulitic. - Continue with wound care. #Hyponatremia - improved - Likely 2/2 hypervolemia. - Will continue with diuresis and dialysis. - Will continue to monitor. DVT Prophylaxis: teds/scds DISPOSITION: Pending liver biopsy, echocardiogram. PFS consulted for help with housing on discharge Attending Attestation: Patient independently seen and examined. I have discussed in detail with the resident / student the findings and plan of treatment as documented by the resi dent / student. I agree with their findings and treatment plan and have edited their documentation. I will continue to follow the patient during this hospital stay. VS,Fishbone, I+O VS, Fishbone, I+O Laboratory Tests 01/31/21 05:38 Vital Signs Date Time Temp Pulse Resp B/P (MAP) Pulse Ox O2 Delivery O2 Flow Rate FiO2 01/31/21 09:55 98.5 80 16 232/112 (152) 97 Room Air 01/27/21 21:00 0.0 01/25/21 14:00 95 I&O- Last 24 Hours up to 6 AM 01/31/21 06:00 Intake Total 1544 ml Output Total 3000 ml Balance -1456 ml PARUL CLEVELAND D.O. Jan 31, 2021 12:19 KERMIT LARIOS MD Feb 01, 2021 07:27
--- NOTE | 2021-01-31 12:42 | IPN ---
PROGRESS NOTE DATE: 01/31/2021 Ms. Mireles is seen this morning on her bedside. She was dialyzed yesterday, which she tolerated very well. We were able to remove another 3 liters of fluid. She has a complaint of generalized itching, which is a chronic issue. She denies any dyspnea, chest pain, nausea, or vomiting. PHYSICAL EXAMINATION: Temperature 98.5 degrees Fahrenheit, heart rate 80 per minute, respiratory rate 16 per minute. This morning blood pressure is unusually high, up to 232/112 mmHg, and oxygen saturation 97%. She is quite comfortable and not in any distress. Her head is atraumatic. Neck is supple and without jugular venous distention (JVD) or thyroid enlargement. Dialysis catheter in right internal jugular vein is intact. Heart sounds are regular with systolic murmur, grade 1/6. Lungs sound clear to auscultation bilaterally. Abdomen is soft and nontender, and bowel sounds are normal. Extremities without any cyanosis or clubbing. Skin is dry and has scratch allen all over her limbs. Neurologically she is awake and at her baseline mentation without a focal deficit. Today's labs show WBC count 11.4, hemoglobin 9.5, hematocrit 29.2, platelets 622. Sodium 134, potassium 4.9, CO2 of 23, BUN 35, and creatinine 4.11. Total bilirubin is 4.4 again today. AST is up to 95, ALT 83, and alkaline phosphatase 1432. PROBLEMS: 1. End-stage renal disease. Patient was dialyzed yesterday, and she tolerated her dialysis well. Next dialysis will be scheduled for tomorrow. 2. Hyponatremia. Sodium level has gradually improved up to 134. She should continue with restricted fluid intake of about 1500 mL per day, and sodium will be corrected with her next dialysis. 3. Hypertension. Her blood pressure is usually well controlled while she is in the hospital and takes her medications regularly. At home her blood pressure is usually quite high. I am surprised to see her high blood pressure today while it was much better yesterday. I will recommend to continue with her chronic antihypertensive medications. Her volume status as improved significantly. 4. Abnormal liver function tests (LFTs). She has slight increase in her transaminase and alkaline phosphatase, while previously she was gradually improving. She is currently asymptomatic otherwise. 5. Anemia. Her anemia has been stable, and she will continue with weekly dose of Aranesp. 6. Generalized itching, probably related to medications. I am going to stop her furosemide, and we will use hydroxyzine 25 mg twice a day for her itching.
[2021-01-31 14:00] VITALS: BP 162/96
[2021-01-31] MEDS: hydrOXYzine 25 MG TAB PO SCH (21:01)
[2021-01-31 22:00] VITALS: BP 187/108
[2021-01-31] MEDS: LEVEMIR (INSULIN DETEMIR) 1 UNITS/0.01ML SC SCH (22:14)
[2021-02-01 06:00] VITALS: BP 151/90
[2021-02-01 07:19] LABS: BASO # 0.1 10^3/uL (0.0-0.2); BASO % 0.8 % (0.0-1.0); EOS # 0.4 10^3/uL (0.0-0.5); EOS % 3.4 % (0.0-3.0); HEMATOCRIT 28.9 % (36.0-47.0); HEMOGLOBIN 9.5 g/dl (12.0-15.5); LYMPH # 1.4 10^3/uL (1.5-5.0); LYMPH % 12.8 % (24.0-44.0); MEAN CORPUSCULAR HEMOGLOBIN 30.1 pg (27.0-33.0); MEAN CORPUSCULAR HGB CONC 32.9 g/dl (32.0-36.5); MEAN CORPUSCULAR VOLUME 91.5 fl (80.0-96.0); MONO # 0.7 10^3/uL (0.0-0.8); MONO % 6.6 % (2.0-8.0); NEUTROPHILS # 8.1 10^3/uL (1.5-8.5); NEUTROPHILS % 75.1 % (36.0-66.0); PLATELET COUNT, AUTOMATED 630 10^3/uL (150-450); RED BLOOD COUNT 3.16 10^6/uL (4.00-5.40); WHITE BLOOD COUNT 10.8 10^3/uL (4.0-10.0)
[2021-02-01] MEDS: (RENVELA) SEVELAMER **CARBONate** 800 MG TAB PO SCH ×3 (07:29→17:56)
[2021-02-01] MEDS: HumaLOG INSULIN (NovoLOG) PER UNIT SC SCH ×4 (07:30→20:55)
[2021-02-01 08:04] LABS: ALBUMIN 2.6 GM/DL (3.2-5.2); BILIRUBIN,TOTAL 4.6 MG/DL (0.2-1.0); CREATININE FOR GFR 5.2 MG/DL (0.55-1.30); GLOMERULAR FILTRATION RATE 12.3 (>60); MAGNESIUM LEVEL 2.8 MG/DL (1.8-2.4); POTASSIUM SERUM 5.3 MEQ/L (3.5-5.1); TOTAL PROTEIN 7.8 GM/DL (6.4-8.2)
[2021-02-01] MEDS: hydrOXYzine 25 MG TAB PO SCH ×2 (08:17→21:15)
[2021-02-01] MEDS: CALCITRIOL 0.25 MCG CAP (S0169) PO SCH (08:17)
[2021-02-01] MEDS: LACTOBACILLUS ACIDOPHILUS CAP (BACID) PO SCH ×2 (08:17→17:55)
[2021-02-01] MEDS: ASPIRIN 81MG ENTERIC TABLET PO SCH (08:18)
[2021-02-01] MEDS: LOSARTAN 50MG TABLET PO SCH ×2 (08:18→21:16)
[2021-02-01] MEDS: DEXTROSE 50% 50 ML SYRINGE IV PRN ×2 (08:19→11:54)
[2021-02-01] MEDS: **hydrALAZINE** 50 MG TAB PO SCH ×3 (08:19→21:15)
[2021-02-01] MEDS: METOPROLOL TARTRATE 100 MG TAB PO SCH ×2 (08:19→21:15)
[2021-02-01] MEDS: ISOSORBIDE MON. (IMDUR) 60 MG XR TAB PO SCH (08:19)
[2021-02-01 08:22] VITALS: BP 130/84
[2021-02-01] MEDS ORDERED: SODIUM BICARBONATE 8.4% INJ 50MEQ 50 ML VIAL As Ordered ONE (09:07)
[2021-02-01] MEDS ORDERED: LIDOCAINE 1% MDV 20ML VIAL As Ordered ONE (09:07)
[2021-02-01] MEDS: cloNIDine 0.1MG TABLET PO SCH ×2 (11:23→21:15)
--- NOTE | 2021-02-01 12:59 | IPNPDOC ---
Text Note Date of Service The patient was seen on 02/01/21. NOTE SUBJECTIVE: No acute events overnight. In terms of SOB and CP, pt states that she is feeling much better. She has had one episode of diarrhea yesterday and continues to have abd pain. Pt reports that she has had 5 episodes of productive cough with bloody sputum this morning. Denies any worsening abd pain or reflux. Denies any blood in stool. OBJECTIVE: VITAL SIGNS: See below GENERAL: Alert, comfortable, in no acute distress HEENT: Normocephalic, atraumatic, scleral icterus, moist mucous membranes CARDIOVASCULAR: Regular rate and rhythm, normal S1 and S2. No murmurs, rubs, or gallops RESPIRATORY: Clear to auscultation bilaterally with equal air entry bilaterally. No wheezing, rhonchi, or rales. ABDOMEN: Abd tenderness to palpation to RUQ. Soft, nondistended, bowel sounds present EXTREMITIES: 1+ pitting edema up to ankles bilaterally. Pulses 2+/4 in bilateral upper and lower extremities NEUROLOGIC: No focal deficits appreciated PSYCHIATRIC: Mood and affect appropriate ASSESSMENT/PLAN: 35 year old female with a PMHx of Diastolic CHF (EF: 60%) / Pulmonary HTN, HTN, IDDM1, ESRD on HD (MWF), Neuropathy, Retinopathy, with multiple complications, Hx of Osteomyelitis / Diabetic foot ulcers, Hx of C. diff colitis (12/01/2020), who presented to ER with chest pain, SOB and diarrhea. Pt was admitted for further evaluation of fluid overload and diarrhea. She has also been found to have elevated bilirubin and alk phos with RUQ pain. #Dyspnea - Likely 2/2 fluid overload, possibly CHF exacerbation. Pt has hx of CHF exacerbation and HFpEF with EF of 60%. - Pt reports that orthopnea and dyspnea has improved significantly since admission. - Appears that pt fluid status is improved as pt lower extremity edema is much improved. - Monitor I&O's, daily weights, and fluid restriction. - Fluid removal with Lasix 80 mg PO BID and HD per nephrology. - Echocardiogram ordered and pending. #Abnormal liver profile -elevated alkaline phos and bilirubin - Liver US showed no gallstones, diffuse gallbladder wall thickening up to 14 mm, mild free fluid around the liver, no biliary dilatation, and mild he patomegaly. - Abd MRI shows hepatomegaly, diffuse edematous changes in the soft tissues outside the abd, homogenous low signal intensity throughout the liver, periportal edema pattern, this is nonspecific and can be seen in hepatitis, CHF, cholangitis, liver and bone marrow transplantation states and blunt trauma. - HIDA scan done and findings consistent with advanced cholestasis. Poor hepatocellular parenchymal washout. Gallbladder is visualized in a normal time interval and there is some radiotracer in the small intestine. This mitigates against biliary obstruction. - Hepatitis panel is negative. - MEEK, ANCA, and anti-mitochondrial ab have resulted negative. Pt ELIZABETH level elevated at 104. DDx for this include sarcoidosis - Liver biopsy ordered for today but has been canceled due to pt's elevated BP. Will reschedule for Thursday. #Hemoptysis - Pt complained of 5 episodes of hemoptysis today. Otherwise has no other complaints such as increased SOB or CP, increased or changing abd pain, nausea, vomiting, or blood in stools. - Pt has had immunology studies done that would rule out multiple pulmonary causes of hemoptysis. - A possible cause would by dry nares causing nasal bleeding. Will attempt to find an otoscope to examine nares. - Will continue to monitor for recurrence and CBC to monitor hgb. #Hypertension - Pt has hx of hypertension likely 2/2 ESRD. - Pt has been on home meds: Hydralazine 100 mg PO TID, Amlodipine 10 mg PO Daily, Losartan 50 mg PO BID, Metoprolol 100 mg PO BID. - Nephrology, Dr. Bates, has added Clonidine 0.1 mg PO BID. #Chest pain - resolved - Possibly 2/2 CHF exacerbation. - Troponins have been negative x3. EKG showed no acute ST or T wave changes. - Pt does not complain of any chest pain today. #Diarrhea - resolved - This appears to be a chronic issue for pt - GI panel was negative. - Continue Bacid. #Anemia - Likely 2/2 ESRD. - s/p 2 units PRBC during this admission. - Hgb at baseline and has been up trending since admission. - monitor daily #Leukocytosis - Appears to be chronically elevated in pt. - Pt has chronic diabetic foot ulcer to the L foot but does not appear cellulitic. Do not believe this is the source of leukocytosis. - She has been afebrile and is hemodynamically stable. #ESRD on HD MWF - Pt has R PermCath in place. - Nephrology has been consulted and pt is receiving hemodialysis MWF #IDDM1 - Sliding scale insulin with hypoglycemic protocol in place. - Consistent carb diet. #Chronic diabetic L foot ulcer - Does not appear cellulitic. - Continue with wound care. #Hyponatremia - improved - Likely 2/2 hypervolemia. - Will continue with diuresis and dialysis. - Will continue to monitor. DVT Prophylaxis: teds/scds DISPOSITION: Pending liver biopsy, echocardiogram. PFS consulted for help with housing on discharge. Liver biopsy has been rescheduled to Thursday. VS,Fishbone, I+O VS, Fishbone, I+O Laboratory Tests 02/01/21 07:03 Vital Signs Date Time Temp Pulse Resp B/P (MAP) Pulse Ox O2 Delivery O2 Flow Rate FiO2 02/01/21 09:42 72 18 02/01/21 09:10 97.9 99 Room Air 02/01/21 08:22 130/84 (99) 01/27/21 21:00 0.0 I&O- Last 24 Hours up to 6 AM 02/01/21 06:00 Intake Total 1136 ml Balance 1136 ml GME ATTESTATION GME ATTESTATION My faculty preceptor for this patient encounter was physically present during the encounter and was fully available. All aspects of the patient interview, examination, medical decision making process, and medical care plan development were reviewed and approved by the faculty preceptor. The faculty preceptor is aware and concurs with the plan as stated in the body of this note and will attest to such by his/her cosignature. ATTENDING NOTE Attending Attestation: Patient independently seen and examined. I have discussed in detail with the resident / student the findings and plan of treatment as documented by the res ident / student. I agree with their findings and treatment plan and have edited their documentation. I will continue to follow the patient during this hospital stay. Janell CORDOBA OMS-3 Feb 01, 2021 12:50 PARUL CLEVELAND D.O. Feb 01, 2021 13:56 KERMIT LARIOS MD Feb 03, 2021 11:47
--- NOTE | 2021-02-01 14:37 | ECHO ---
DATE OF PROCEDURE: 01/31/2021 Age: 35 Gender: Female REFERRING PROVIDER: Kyle Parekh MD. PATIENT LOCATION: Room 4205. REASON FOR STUDY: Hypertensive heart disease. 2D MEASUREMENTS: IVS 1.7 cm LVPW 1.7 cm LV 3.8 cm LA 4.2 cm Aorta 2.6 cm IVC 1.8 cm DOPPLER MEASUREMENT Peak velocity across the aortic valve 1.5 m/s Peak velocity across the LVOT 1.1 m/s Maximum tricuspid valve velocity 3.2 m/s Mitral E 0.96 Mitral A 0.65 with a ratio of 1.5 2D COMMENTS: 1. Normal left ventricular size with somewhat of an increased left ventricular wall thickness. Left ventricular systolic function is normal, estimated at 60 to 65%. 2. Mildly dilated left atrium, normal right atrium and right ventricle. 3. The atrial septum appeared to be normal without evidence of defect or shunt. 4. Normal aortic root. 5. No pericardial effusion seen. 6. Mildly calcified aortic valve with normal leaflet excursion. Normal mitral valve, tricuspid valve, and pulmonic valve. The proximal pulmonary artery branches appear to be normal in limited views. 7. The inferior vena cava was normal in size, central venous pressure is most likely normal. DOPPLER: It detects trace aortic regurgitation, mild mitral regurgitation, and severe tricuspid regurgitation. The calculated pulmonary artery systolic pressure varies between 40 to 50 mmHg. Assessment of the left ventricular diastolic function appeared to be normal. IMPRESSION: 1. Normal global left ventricular systolic function with moderate concentric left ventricular hypertrophy. Assessment of the left ventricular diastolic function appeared to be normal. 2. Aortic valve sclerosis with trace aortic regurgitation but no aortic stenosis. 3. Mildly enlarged left atrium with mild mitral regurgitation. 4. Severe tricuspid regurgitation with moderate pulmonary hypertension. 5. Mild pulmonic regurgitation. MTDD
--- NOTE | 2021-02-01 16:41 | IPN ---
NEPHROLOGY PROGRESS NOTE DATE: 02/01/2021 SUBJECTIVE: Ms. Mireles is seen this morning on her bedside. I came earlier to see her; however, she was down in radiology. She was scheduled for a liver biopsy today, which was canceled due to elevated blood pressure. Her blood pressure this morning was 130/84, but when she went down to radiology, her blood pressure was quite high and they sent her back without doing the procedure. Patient denies any nausea, vomiting, dyspnea or chest pain. PHYSICAL EXAMINATION: Temperature 97.9 degrees Fahrenheit, heart rate 75 per minute, respiratory rate 18 per minute, blood pressure 174/98 mmHg, oxygen saturation 99%. HEAD: Atraumatic. NECK: Supple and without jugular venous distention (JVD) or thyroid enlargement. Dialysis catheter is intact in right internal jugular vein. HEART SOUNDS: Regular. LUNGS: Clear to auscultation. ABDOMEN: Soft and nontender. Bowel sounds are normal. EXTREMITIES: Without any cyanosis or clubbing. She has minimal ankle edema. NEUROLOGIC: She is awake, alert and oriented times three. LABORATORY DATA: Today's labs show WBC 10.8, hemoglobin 9.5, hematocrit 28.9, platelets 630. Sodium 133, potassium 5.3, CO2 20, BUN 52, creatinine 5.2. Total bilirubin 4.6, AST 88, ALT 83, alkaline phosphatase 1445. PROBLEMS: 1. End-stage renal disease. Patient is due for dialysis today and will be dialyzed this afternoon. She seems to be very well dialyzed while here in the hospital. 2. Hyperkalemia. Patient has mild hyperkalemia, which will be corrected with dialysis. No other intervention is needed. We will use 2.0 mEq dialysis bath today. 3. Hyponatremia. She has mild chronic hyponatremia which is stable and unchanged today. No specific intervention is needed. 4. Hypertension. Blood pressure was good this morning and she is states to be taking all her medications on time. I am adding clonidine 0.1 mg twice a day and she will continue with amlodipine, metoprolol, losartan and Imdur. 5. Abnormal liver function tests. Patient was scheduled for a liver biopsy today, which was canceled due to her hypertension. She will probably need to be scheduled for next week.
[2021-02-01 17:34] VITALS: BP 220/109
[2021-02-01 18:00] VITALS: BP 186/94
[2021-02-01] MEDS: LEVEMIR (INSULIN DETEMIR) 1 UNITS/0.01ML SC SCH (21:16)
[2021-02-01] MEDS: LIDOCAINE 4% CREAM 5GM (LMX4) TOP PRN (21:17)
[2021-02-01 22:00] VITALS: BP 170/72
[2021-02-02] MEDS ORDERED: cloNIDine 0.1MG TABLET PO ONE (04:30)
[2021-02-02 06:00] VITALS: BP 164/98
[2021-02-02 07:04] LABS: BASO # 0.1 10^3/uL (0.0-0.2); BASO % 0.6 % (0.0-1.0); EOS # 0.3 10^3/uL (0.0-0.5); HEMATOCRIT 26.9 % (36.0-47.0); HEMOGLOBIN 8.6 g/dl (12.0-15.5); LYMPH # 0.8 10^3/uL (1.5-5.0); LYMPH % 9.8 % (24.0-44.0); MEAN CORPUSCULAR HEMOGLOBIN 29.8 pg (27.0-33.0); MEAN CORPUSCULAR VOLUME 93.1 fl (80.0-96.0); MONO # 0.5 10^3/uL (0.0-0.8); MONO % 6.2 % (2.0-8.0); NEUTROPHILS # 6.8 10^3/uL (1.5-8.5); NEUTROPHILS % 79.2 % (36.0-66.0); PLATELET COUNT, AUTOMATED 620 10^3/uL (150-450); RED BLOOD COUNT 2.89 10^6/uL (4.00-5.40); WHITE BLOOD COUNT 8.6 10^3/uL (4.0-10.0)
[2021-02-02 07:48] LABS: ALBUMIN 2.4 GM/DL (3.2-5.2); BILIRUBIN,TOTAL 3.6 MG/DL (0.2-1.0); CALCIUM LEVEL 8.2 MG/DL (8.5-10.1); CREATININE FOR GFR 3.86 MG/DL (0.55-1.30); GLOMERULAR FILTRATION RATE 17.3 (>60); MAGNESIUM LEVEL 2.4 MG/DL (1.8-2.4); POTASSIUM SERUM 4.4 MEQ/L (3.5-5.1); TOTAL PROTEIN 7.2 GM/DL (6.4-8.2)
[2021-02-02] MEDS: HumaLOG INSULIN (NovoLOG) PER UNIT SC SCH ×4 (08:57→21:57)
[2021-02-02] MEDS: (RENVELA) SEVELAMER **CARBONate** 800 MG TAB PO SCH ×3 (08:57→17:01)
[2021-02-02] MEDS: ASPIRIN 81MG ENTERIC TABLET PO SCH (08:57)
[2021-02-02] MEDS: ISOSORBIDE MON. (IMDUR) 60 MG XR TAB PO SCH (08:57)
[2021-02-02] MEDS: LACTOBACILLUS ACIDOPHILUS CAP (BACID) PO SCH ×2 (08:57→17:01)
[2021-02-02] MEDS: CALCITRIOL 0.25 MCG CAP (S0169) PO SCH (08:57)
[2021-02-02] MEDS: METOPROLOL TARTRATE 100 MG TAB PO SCH ×2 (08:58→21:55)
[2021-02-02] MEDS: **hydrALAZINE** 50 MG TAB PO SCH (08:58)
[2021-02-02] MEDS: LOSARTAN 50MG TABLET PO SCH ×2 (08:58→21:55)
[2021-02-02] MEDS: hydrOXYzine 25 MG TAB PO SCH ×2 (08:58→21:55)
[2021-02-02] MEDS: cloNIDine 0.1MG TABLET PO SCH ×3 (09:09→21:55)
[2021-02-02] MEDS: predniSONE 20 MG TAB PO SCH (12:09)
[2021-02-02] MEDS: LIDOCAINE 4% CREAM 5GM (LMX4) TOP PRN (12:09)
[2021-02-02] MEDS: PANTOPRAZOLE 40MG TAB (PROTONIX) PO SCH (12:09)
[2021-02-02 12:20] LABS: ERYTHROCYTE SEDIMENTATION RATE 126 mm/hr (0-20)
[2021-02-02 14:00] VITALS: BP 160/99
--- NOTE | 2021-02-02 14:08 | IPNPDOC ---
Text Note Date of Service The patient was seen on 02/02/21. NOTE SUBJECTIVE: Patient was seen an examined this morning at bedside. She denies any shortness of breath or chest pain overnight. She denies any new concerns. She notes continues right sided pain which has not changed. OBJECTIVE: VITAL SIGNS: See below GENERAL: Alert, comfortable, in no acute distress HEENT: Normocephalic, atraumatic, scleral icterus CARDIOVASCULAR: Regular rate and rhythm, normal S1 and S2. No murmurs, rubs, or gallops RESPIRATORY: Clear to auscultation bilaterally with equal air entry bilaterally. No wheezing, rhonchi, or rales. ABDOMEN: Tender to palpation over the RUQ. Soft, nondistended, bowel sounds present EXTREMITIES: 1+ pitting edema up to the knees bilaterally/ Pulses 2+/4 in bilateral upper and lower extremities NEUROLOGIC: No focal deficits appreciated PSYCHIATRIC: Mood and affect appropriate ASSESSMENT/PLAN: 35 year old female with a PMHx of Diastolic CHF (EF: 60%) / Pulmonary HTN, HTN, IDDM1, ESRD on HD (MWF), Neuropathy, Retinopathy, with multiple complications, Hx of Osteomyelitis / Diabetic foot ulcers, Hx of C. diff colitis (12/01/2020), who presented to ER with chest pain, SOB and diarrhea. Pt was admitted for further evaluation of fluid overload and diarrhea. She has also been found to have elevated bilirubin and alk phos with RUQ pain. #Dyspnea - Likely 2/2 fluid overload, possibly CHF exacerbation. Pt has hx of CHF exacerbation and HFpEF with EF of 60%. - Pt reports that orthopnea and dyspnea has improved significantly since admission. - Appears that pt fluid status is improved as pt lower extremity edema is much improved. - Monitor I&O's, daily weights, and fluid restriction. - Fluid removal with Lasix 80 mg PO BID and HD per nephrology. - Echocardiogram results reviewed showing moderate pulmonary hypertension #Abnormal liver profile -elevated alkaline phos and bilirubin - Liver US showed no gallstones, diffuse gallbladder wall thickening up to 14 mm, mild free fluid around the liver, no biliary dilatation, and mild hepatomegaly. - Abd MRI shows hepatomegaly, diffuse edematous changes in the soft tissues outside the abd, homogenous low signal intensity throughout the liver, periportal edema pattern, this is nonspecific and can be seen in hepatitis, CHF, cholangitis, liver and bone marrow transplantation states and blunt trauma. - HIDA scan done and findings consistent with advanced cholestasis. Poor hepatocellular parenchymal washout. Gallbladder is visualized in a normal time interval and there is some radiotracer in the small intestine. This mitigates against biliary obstruction. - Hepatitis panel is negative. - MEEK, ANCA, and anti-mitochondrial ab have resulted negative. Pt ELIZABETH level elevated at 104. DDx for this include sarcoidosis - Liver biopsy pending, delayed due to uncontrolled hypertension - DILI 2/2 hydralazine considered for possible etiology, although not common, vs drug induced SLE with hepatitis 2/2 hydralazine. Medication has been discontinued and pt started on prednisone. Lab work for drug induced SLE pending. #Hypertension - Pt has hx of hypertension likely 2/2 ESRD. - D/C'd Hydralazine as above. - Continue Amlodipine 10 mg PO Daily, Losartan 50 mg PO BID, Metoprolol 100 mg PO BID. - Nephrology has added Clonidine 0.1 mg PO TID #Chest pain - resolved - Possibly 2/2 CHF exacerbation. - Troponins have been negative x3. EKG showed no acute ST or T wave changes. - Pt reports that her chest pain is now intermittent and much better than it was at the time of admission. #hemoptysis - improved with nasal saline spray, suspect this was 2/2 dry mucous membranes #Diarrhea - resolved - This appears to be a chronic issue for pt - GI panel was negative. - Continue Bacid. #Anemia - Likely 2/2 ESRD. - s/p 2 units PRBC during this admission. - Hgb at baseline and has improved since admission. - monitor daily #Leukocytosis - Appears to be chronically elevated in pt. - Pt has chronic diabetic foot ulcer to the L foot but does not appear cellulitic. Do not believe this is the source of leukocytosis. - She has been afebrile and is hemodynamically stable. #ESRD on HD MWF - Pt has R PermCath in place. - Nephrology has been consulted and pt is receiving hemodialysis MWF #IDDM1 - Sliding scale insulin with hypoglycemic protocol in place. - Consistent carb diet. #Chronic diabetic L foot ulcer - Does not appear cellulitic. - Continue with wound care. #Hyponatremia - improved - Likely 2/2 hypervolemia. - Will continue with diuresis and dialysis. - Will continue to monitor. DVT Prophylaxis: teds/scds DISPOSITION: Pending liver biopsy, clinical improvement. PFS consulted for help with housing on discharge Attending Attestation: Patient independently seen and examined. I have discussed in detail with the resident / student the findings and plan of treatment as documented by the resident / student. I agree with their findings and treatment plan and have edited their documentation. I will continue to follow the patient during this hospital stay. VS,Fishbone, I+O VS, Fishbone, I+O Laboratory Tests 02/02/21 05:51 Vital Signs Date Time Temp Pulse Resp B/P (MAP) Pulse Ox O2 Delivery O2 Flow Rate FiO2 02/02/21 09:09 164/98 02/02/21 08:58 87 02/02/21 06:00 99.7 18 96 Room Air 01/27/21 21:00 0.0 I&O- Last 24 Hours up to 6 AM 02/02/21 06:00 Intake Total 1500 ml Output Total 3000 ml Balance -1500 ml PARUL CLEVELAND D.O. Feb 02, 2021 14:08 KERMIT LARIOS MD Feb 03, 2021 11:59
[2021-02-02] MEDS ORDERED: DARBEPOETIN 100 MCG/0.5 ML *DIALYSIS* SYRINGE (J0882) IV SCH (18:00)
--- NOTE | 2021-02-02 18:27 | IPN ---
NEPHROLOGY PROGRESS NOTE DATE: 02/02/2021 SUBJECTIVE: Patient was seen and examined at the bedside today morning. She is afebrile, hemodynamically stable. Blood pressure is slightly on the higher side. She was dialyzed yesterday, 3 liters of fluid was removed. She tolerated hemodialysis procedure well. She still has elevated liver enzymes so far and complains of itching. She is getting antihistamines for that. OBJECTIVE: VITAL SIGNS: Temperature 98.2 degrees Fahrenheit, blood pressure 160/99, pulse 71, respiratory rate 15, saturating 100% on room air. INTAKE AND OUTPUT: There is no urine output recorded. Ultrafiltration with hemodialysis was 3 liters. Weight in the bed scale is 85.3 kg. PHYSICAL EXAMINATION: GENERAL: Patient is awake, alert, oriented times three, sitting up in the bed, no apparent distress. HEAD AND NECK EXAM: Extraocular muscles intact. Pupils equally round and reactive to light. Mucous membranes are moist. Neck is supple. No jugular venous distention (JVD). She has a tunneled hemodialysis catheter. CARDIOVASCULAR: S1, S2. Regular rate. There is 1+ edema on the bilateral lower extremities. RESPIRATORY: Chest is clear to auscultation bilaterally. Bilateral equal air entry. No rales or rhonchi. ABDOMEN: Soft. Obese. Positive bowel sounds. Mildly tender to deep palpation in the right upper quadrant. MUSCULOSKELETAL: No clubbing or cyanosis. She has a dressing on the left foot. CENTRAL NERVOUS SYSTEM (TOPOLOGY TEACHER): No focal deficits. Power is 5/5 in all extremities. LABORATORY REVIEW: CBC showed a WBC of 8.6, hemoglobin 8.6, platelets 620. BMP shows sodium 133, potassium 4.4, chloride 100, bicarbonate 21, BUN 33, creatinine 3.8. Total bilirubin 3.6, AST 76, ALT 79, alkaline phosphatase 1372, albumin 2.4. Erythrocyte sedimentation rate (ESR) 126. IMMUNOLOGY: MEEK, atypical ANCA, antimitochondrial antibodies are negative. Hepatitis B and hepatitis C serologies are negative. Respiratory Syncytial Virus (RSV) is negative. Hepatitis A IgM is negative. CURRENT INPATIENT MEDICATIONS: Patients' medications were all reviewed by myself. Her clonidine dose has been increased to 0.1 mg by mouth three times a day. I have stopped her hydralazine and she has been started on prednisone 40 mg by mouth daily. ASSESSMENT AND PLAN: 1. Acute hepatitis. Patient developed acute hepatitis after the recent hospitalization. I believe most likely it is drug-induced acute liver injury. Patient had normal liver function tests before the previous hospitalization and she is usually noncompliant with medications as outpatient. I highly suspect that this is associated with hydralazine. Hydralazine is notorious to cause drug-induced liver injury and it can cause drug-induced lupus as well. I empirically started the patient on prednisone 40 mg by mouth daily. I have sent antihistone antibodies and xqby-ffyniq-lkemupwl DNA antibodies. Anti-smooth muscle antibody was also sent to rule out autoimmune hepatitis. Erythrocyte sedimentation rate (ESR) that was done earlier today was high, indicating inflammation in the body. There is no urgent need of liver biopsy at this time. If liver function tests do not start improving after changing the medications, then biopsy will be considered. 2. End-stage renal disease. Patient was dialyzed yesterday. Next hemodialysis will be done on Thursday. 3. Hypertension with hypertensive heart disease. Patient needs a lot of medications to control her blood pressure. She is currently on amlodipine, clonidine, isosorbide, losartan and metoprolol. Continue current dose and hydralazine has been stopped for possible drug-induced hepatitis. 4. Anemia in end-stage renal disease. Patient's hemoglobin level is low. She is getting Aranesp with dialysis. I am going to increase the dose to 200 mcg. 5. Insulin dependent diabetes. Patient is getting prednisone. There is a risk of hypoglycemia. She is already on insulin Levemir and sliding scale coverage. 6. Chronic kidney disease/mineral bone disease. Continue current dose of Renvela with meals. 7. Secondary hyperparathyroidism. Continue current dose of calcitriol daily.
[2021-02-02] MEDS: LEVEMIR (INSULIN DETEMIR) 1 UNITS/0.01ML SC SCH (21:56)
[2021-02-02 22:00] VITALS: BP 175/89
[2021-02-03 06:00] VITALS: BP 176/89
[2021-02-03 06:36] LABS: BASO % 0.1 % (0.0-1.0); EOS % 0.1 % (0.0-3.0); HEMATOCRIT 28.4 % (36.0-47.0); LYMPH # 0.8 10^3/uL (1.5-5.0); LYMPH % 6.6 % (24.0-44.0); MEAN CORPUSCULAR HEMOGLOBIN 29.7 pg (27.0-33.0); MEAN CORPUSCULAR HGB CONC 31.7 g/dl (32.0-36.5); MEAN CORPUSCULAR VOLUME 93.7 fl (80.0-96.0); MONO # 0.6 10^3/uL (0.0-0.8); MONO % 4.8 % (2.0-8.0); NEUTROPHILS # 10.3 10^3/uL (1.5-8.5); NEUTROPHILS % 87.5 % (36.0-66.0); PLATELET COUNT, AUTOMATED 684 10^3/uL (150-450); RED BLOOD COUNT 3.03 10^6/uL (4.00-5.40); WHITE BLOOD COUNT 11.8 10^3/uL (4.0-10.0)
[2021-02-03 07:15] LABS: ALBUMIN 2.7 GM/DL (3.2-5.2); BILIRUBIN,TOTAL 3.3 MG/DL (0.2-1.0); CALCIUM LEVEL 8.7 MG/DL (8.5-10.1); CREATININE FOR GFR 5.68 MG/DL (0.55-1.30); GLOMERULAR FILTRATION RATE 11.1 (>60); MAGNESIUM LEVEL 2.7 MG/DL (1.8-2.4); POTASSIUM SERUM 4.7 MEQ/L (3.5-5.1); TOTAL PROTEIN 7.8 GM/DL (6.4-8.2)
[2021-02-03] MEDS: LACTOBACILLUS ACIDOPHILUS CAP (BACID) PO SCH ×2 (09:02→17:44)
[2021-02-03] MEDS: ASPIRIN 81MG ENTERIC TABLET PO SCH (09:02)
[2021-02-03] MEDS: (RENVELA) SEVELAMER **CARBONate** 800 MG TAB PO SCH ×3 (09:02→17:45)
[2021-02-03] MEDS: predniSONE 20 MG TAB PO SCH (09:03)
[2021-02-03] MEDS: CALCITRIOL 0.25 MCG CAP (S0169) PO SCH (09:03)
[2021-02-03] MEDS: PANTOPRAZOLE 40MG TAB (PROTONIX) PO SCH (09:03)
[2021-02-03] MEDS: LOSARTAN 50MG TABLET PO SCH ×2 (09:03→22:23)
[2021-02-03] MEDS: hydrOXYzine 25 MG TAB PO SCH ×2 (09:03→22:22)
[2021-02-03] MEDS: METOPROLOL TARTRATE 100 MG TAB PO SCH ×2 (09:03→22:22)
[2021-02-03] MEDS: HumaLOG INSULIN (NovoLOG) PER UNIT SC SCH ×4 (09:04→21:00)
[2021-02-03] MEDS: cloNIDine 0.1MG TABLET PO SCH ×3 (09:14→22:23)
[2021-02-03] MEDS: ISOSORBIDE MON. (IMDUR) 60 MG XR TAB PO SCH (09:14)
--- NOTE | 2021-02-03 09:56 | IPNPDOC ---
Text Note Date of Service The patient was seen on 02/03/21. NOTE Subjective: Patient was seen an examined this morning at bedside.. No acute overnight events reported. No new medical complaints this morning. Objective: VITAL SIGNS: See below GENERAL: Alert, comfortable, in no acute distress HEENT: Normocephalic, atraumatic, scleral icterus CARDIOVASCULAR: Regular rate and rhythm, normal S1 and S2. No murmurs, rubs, or gallops RESPIRATORY: Clear to auscultation bilaterally with equal air entry bilaterally. No wheezing, rhonchi, or rales. ABDOMEN: Tender to palpation over the RUQ. Soft, nondistended, bowel sounds present EXTREMITIES: 1+ pitting edema up to the knees bilaterally/ Pulses 2+/4 in bilateral upper and lower extremities A/P: 35F with PMHx HFpEF (LVEF: 60%) / Pulmonary HTN, HTN, IDDM1, ESRD/HD (MWF), Neuropathy, Retinopathy, with multiple complications, Hx of Osteomyelitis / #DFU, Hx of C. diff colitis (12/01/2020), who presented to ER with chest pain, SOB and diarrhea. Pt was admitted for further evaluation of fluid overload and diarrhea. She has also been found to have elevated bilirubin and alk phos with RUQ pain. #Dyspnea - resolved - Likely 2/2 fluid overload, possibly CHF exacerbation. Pt has hx of CHF exac erbation and HFpEF with EF of 60%. - Monitor I&O's, daily weights, and fluid restriction. - Fluid removal with Lasix 80 mg PO BID and HD per nephrology. - Echocardiogram results reviewed showing moderate pulmonary hypertension #transaminitis/hyperbilirubinemia - discussed with GI - considering hydralazine induced hepatitis - medication has been discontinued and pt started on prednisone - Liver US showed no gallstones, diffuse gallbladder wall thickening up to 14 mm, mild free fluid around the liver, no biliary dilatation, and mild hepatomegaly. - Abd MRI shows hepatomegaly, diffuse edematous changes in the soft tissues outside the abd, homogenous low signal intensity throughout the liver, periportal edema pattern, this is nonspecific and can be seen in hepatitis, CHF, cholangitis, liver and bone marrow transplantation states and blunt trauma. - HIDA scan done and findings consistent with advanced cholestasis. Poor hepatocellular parenchymal washout. Gallbladder is visualized in a normal time interval and there is some radiotracer in the small intestine. This mitigates against biliary obstruction. - Hepatitis panel is negative. - MEEK, ANCA, and anti-mitochondrial ab have resulted negative. Pt ELIZABETH level elevated at 104. DDx for this include sarcoidosis - Liver biopsy pending, delayed due to uncontrolled hypertension #HTN - D/C'd Hydralazine as above. - Continue Amlodipine 10 mg PO Daily, Losartan 50 mg PO BID, Metoprolol 100 mg PO BID. - Nephrology has added Clonidine 0.1 mg PO TID #Chest pain - resolved - Possibly 2/2 CHF exacerbation. - Troponins have been negative x3. EKG showed no acute changes. - Pt reports that her chest pain is now intermittent and much better than it was at the time of admission. #hemoptysis - improved with nasal saline spray, suspect this was 2/2 dry mucous membranes #Diarrhea - resolved - This appears to be a chronic issue for pt - GI panel was negative. - Continue Bacid. #Anemia - Likely 2/2 ESRD. - s/p 2 units PRBC during this admission. - Hgb at baseline and has improved since admission. - monitor daily #Leukocytosis - Appears to be chronically elevated in pt. - Pt has chronic diabetic foot ulcer to the L foot but does not appear cellulitic. Do not believe this is the source of leukocytosis. - She has been afebrile and is hemodynamically stable. #ESRD on HD MWF - Pt has R PermCath in place. - Nephrology has been consulted and pt is receiving hemodialysis MWF #IDDM1 - Sliding scale insulin with hypoglycemic protocol in place. - Consistent carb diet. #Chronic diabetic L foot ulcer - Does not appear cellulitic. - Continue with wound care. #Hyponatremia DVT Prophylaxis: teds/scds DISPOSITION: Pending liver biopsy, clinical improvement. PFS consulted for help with housing on discharge Addendum: Patient noted to have ordered extra large milkshake, chocolate milk and ice cream from [employer] at lunch. Attempting to control hyperglycemia with sub q insulin. Repeat BMP borderline DKA, minimally elevated anion gap, which can probably be managed with sub q insulin. Follow up BMP. VS,Fishbone, I+O VS, Fishbone, I+O Laboratory Tests 02/03/21 05:57 02/03/21 05:58 Vital Signs Date Time Temp Pulse Resp B/P (MAP) Pulse Ox O2 Delivery O2 Flow Rate FiO2 02/03/21 06:00 98.5 72 18 176/89 (118) 95 Room Air I&O- Last 24 Hours up to 6 AM 02/03/21 06:00 Intake Total 1770 ml Output Total 0 ml Balance 1770 ml KERMIT LARIOS MD Feb 03, 2021 09:56
[2021-02-03] MEDS ORDERED: HumaLOG INSULIN (NovoLOG) PER UNIT SC ONE ×3 (12:45→22:10)
[2021-02-03 13:56] VITALS: BP 164/72
[2021-02-03 14:00] VITALS: BP 164/72
[2021-02-03 18:48] LABS: ACETONE/KETONE 0.91 MG/DL (<2.81); CALCIUM LEVEL 9.1 MG/DL (8.5-10.1); CREATININE FOR GFR 6.33 MG/DL (0.55-1.30); GLOMERULAR FILTRATION RATE 9.8 (>60)
[2021-02-03] MEDS ORDERED: LEVEMIR (INSULIN DETEMIR) 1 UNITS/0.01ML SC ONE (20:40)
--- NOTE | 2021-02-03 21:06 | IPN ---
NEPHROLOGY PROGRESS NOTE DATE: 02/03/2021 SUBJECTIVE: The patient was seen and examined at the bedside today morning. Her Hydralazine was stopped yesterday. She was started on Prednisone for possible Hydralazine induced hepatitis. She reports that she has an increased appetite because of Prednisone. Her glucose levels were high and she is requiring more insulin at this time. Her itching is better today as compared with yesterday. OBJECTIVE: VITAL SIGNS: Temperature is 98.8 degrees Fahrenheit, blood pressure is 164/72, pulse is 82, respiratory rate of 18, saturating 96% on room air. INTAKE AND OUTPUT: Urine output is not recorded. Weight in the bed scale was 85.3 kg yesterday. PHYSICAL EXAMINATION: GENERAL APPEARANCE: The patient is awake, alert, oriented x3, sitting up in the bed in no apparent distress. HEAD AND NECK: Extraocular muscles intact. Pupils are equally round and reactive to light. Mucous membranes are moist. Neck is supple. She has a right IJ tunneled hemodialysis catheter. CARDIOVASCULAR: S1, S2, regular rate. EXTREMITIES: 1+ edema of the bilateral lower extremities. RESPIRATORY: Chest is clear to auscultation bilaterally. Bilaterally currently no rales or rhonchi. ABDOMEN: Soft, obese, positive bowel sounds, nontender, no organomegaly. MUSCULOSKELETAL: No clubbing, no cyanosis. She has a dressing on the left foot. CASE BRIEFER: No focal deficits. Power is 5/5 in all extremities. LAB REVIEW: CBC showed a WBC of 11.8, hemoglobin is 9, platelet count 684. BMP showed sodium of 131, potassium 4.7, chloride 98, bicarbonate is 20, BUN 60, creatinine is 5.6. Magnesium 2.7. Total bilirubin is 3.3. It was 3.6 yesterday. AST 67, ALT 81, alkaline phosphatase is 1,582. Serial plasma level is pending. The rest of the serologies that were sent yesterday are pending. CURRENT INPATIENT MEDICATIONS: The patient's medications were all reviewed by myself. She continues to be on Prednisone 40 mg p.o. daily. She is no longer taking Hydralazine; last dose was yesterday in the morning. ASSESSMENT AND PLAN: 1. End-stage renal disease - The patient will be dialyzed tomorrow morning as per her regular schedule. I will try to remove at least three and a half kg of fluid as tolerated by her blood pressure. 2. Acute hepatitis most likely it is associated with medication and Hydralazine is on top of the list. It was stopped yesterday. She is empirically getting Prednisone. Liver biopsy was canceled because of elevated blood pressures. Continue to monitor LFTs. Autoimmune serologies sent yesterday are still pending. 3. Hypertension with hypertensive heart disease - continue current multi-drug regimen. Blood pressures are optimal for now for her. Fluid removal and dialysis would also help improve the blood pressures. 4. Anemia and end-stage renal disease - hemoglobin level is slightly suboptimal, however it is stable. She is currently receiving Aranesp with dialysis. 5. Insulin dependent diabetes and hyperglycemia - The patient is hyperglycemic with Prednisone. She is getting insulin sliding scale coverage and Levemir. 6. Chronic kidney disease, mineral bone disease - continue current dose of Renvela with meals.
[2021-02-03 21:52] LABS: CALCIUM LEVEL 8.4 MG/DL (8.5-10.1); CREATININE FOR GFR 6.53 MG/DL (0.55-1.30); GLOMERULAR FILTRATION RATE 9.4 (>60); POTASSIUM SERUM 4.9 MEQ/L (3.5-5.1)
[2021-02-03 22:00] VITALS: BP 169/81
[2021-02-03] MEDS: LEVEMIR (INSULIN DETEMIR) 1 UNITS/0.01ML SC SCH (22:24)
[2021-02-04] VITALS (11 sets, daily range): BP systolic 169–203; BP diastolic 77–96
[2021-02-04 00:57] LABS: CALCIUM LEVEL 8.6 MG/DL (8.5-10.1); CREATININE FOR GFR 6.62 MG/DL (0.55-1.30); GLOMERULAR FILTRATION RATE 9.3 (>60); MAGNESIUM LEVEL 2.6 MG/DL (1.8-2.4); PHOSPHORUS LEVEL 6.8 MG/DL (2.5-4.9); POTASSIUM SERUM 4.7 MEQ/L (3.5-5.1)
[2021-02-04] MEDS ORDERED: INSULIN REGULAR IN 0.9 % NACL 100 UNIT in IV 1 EA IV SCH ×4 (01:00→07:00)
[2021-02-04] MEDS ORDERED: INSULIN HUMAN REGULAR IV SCH (01:00)
[2021-02-04] MEDS ORDERED: NS IV SCH (01:00)
[2021-02-04 01:55] LABS: ABG BASE EXCESS -12.2 (-2.0-2.0); ABG HCO3 13.6 MEQ/L (22.0-26.0); ABG O2 SATURATION 96.3 % (95.0-99.0); ABG PARTIAL PRESSURE CO2 30.5 mmHg (35.0-45.0); ABG PARTIAL PRESSURE O2 91.1 mmHg (75.0-100.0); ABG STANDARD HCO3 14.8 MEQ/L (22.0-26.0); ABG TOTAL CO2 14.5 MEQ/L (22.0-29.0); ABG pH (ARTERIAL) 7.267 UNITS (7.350-7.450)
[2021-02-04] MEDS ORDERED: NS 1,000 ML IV ONE (03:15)
[2021-02-04 04:03] LABS: CALCIUM LEVEL 8.6 MG/DL (8.5-10.1); CREATININE FOR GFR 6.64 MG/DL (0.55-1.30); GLOMERULAR FILTRATION RATE 9.3 (>60); MAGNESIUM LEVEL 2.8 MG/DL (1.8-2.4); PHOSPHORUS LEVEL 6.6 MG/DL (2.5-4.9); POTASSIUM SERUM 4.3 MEQ/L (3.5-5.1)
[2021-02-04] MEDS: INSULIN IV RATE CHANGE DOCUMENTATION ML/HR XX SCH ×8 (04:07→17:15)
[2021-02-04 05:39] LABS: HEMATOCRIT 26.8 % (36.0-47.0); HEMOGLOBIN 8.4 g/dl (12.0-15.5); MEAN CORPUSCULAR HEMOGLOBIN 29.6 pg (27.0-33.0); MEAN CORPUSCULAR HGB CONC 31.3 g/dl (32.0-36.5); MEAN CORPUSCULAR VOLUME 94.4 fl (80.0-96.0); PLATELET COUNT, AUTOMATED 677 10^3/uL (150-450); RED BLOOD COUNT 2.84 10^6/uL (4.00-5.40); WHITE BLOOD COUNT 14.2 10^3/uL (4.0-10.0)
[2021-02-04] MEDS ORDERED: hydrALAZINE 20MG/ML 1ML VIAL (J0360 PER 20MG) IV STA (06:19)
[2021-02-04] MEDS: PANTOPRAZOLE 40MG TAB (PROTONIX) PO SCH (06:31)
[2021-02-04] MEDS: predniSONE 20 MG TAB PO SCH (06:32)
[2021-02-04] MEDS: CALCITRIOL 0.25 MCG CAP (S0169) PO SCH (06:32)
[2021-02-04] MEDS: ASPIRIN 81MG ENTERIC TABLET PO SCH (06:32)
[2021-02-04 06:57] LABS: ALBUMIN 2.7 GM/DL (3.2-5.2); BILIRUBIN,DIRECT 2.4 MG/DL (0.0-0.2); BILIRUBIN,TOTAL 2.9 MG/DL (0.2-1.0); CALCIUM LEVEL 8.9 MG/DL (8.5-10.1); CREATININE FOR GFR 6.56 MG/DL (0.55-1.30); GLOMERULAR FILTRATION RATE 9.4 (>60); POTASSIUM SERUM 4.3 MEQ/L (3.5-5.1); TOTAL PROTEIN 8.8 GM/DL (6.4-8.2)
[2021-02-04 08:26] LABS: CALCIUM LEVEL 9.2 MG/DL (8.5-10.1); CREATININE FOR GFR 6.54 MG/DL (0.55-1.30); GLOMERULAR FILTRATION RATE 9.4 (>60); POTASSIUM SERUM 4.1 MEQ/L (3.5-5.1)
[2021-02-04] MEDS: LACTOBACILLUS ACIDOPHILUS CAP (BACID) PO SCH ×2 (08:32→17:19)
[2021-02-04] MEDS: cloNIDine 0.1MG TABLET PO SCH ×3 (08:32→21:23)
[2021-02-04] MEDS: LOSARTAN 50MG TABLET PO SCH ×2 (08:33→21:24)
[2021-02-04] MEDS: hydrOXYzine 25 MG TAB PO SCH ×2 (08:33→21:23)
[2021-02-04] MEDS: ISOSORBIDE MON. (IMDUR) 60 MG XR TAB PO SCH (08:33)
[2021-02-04] MEDS: METOPROLOL TARTRATE 100 MG TAB PO SCH ×2 (08:33→21:23)
[2021-02-04] MEDS: (RENVELA) SEVELAMER **CARBONate** 800 MG TAB PO SCH ×3 (09:44→17:19)
[2021-02-04 10:38] LABS: CALCIUM LEVEL 9.2 MG/DL (8.5-10.1); CREATININE FOR GFR 6.62 MG/DL (0.55-1.30); GLOMERULAR FILTRATION RATE 9.3 (>60); POTASSIUM SERUM 4.3 MEQ/L (3.5-5.1)
--- NOTE | 2021-02-04 12:17 | IPNPDOC ---
Text Note Date of Service The patient was seen on 02/04/21. NOTE Subjective: Patient was seen an examined this morning at bedside. Overnight patient transferred to ICU for insulin infusion for DKA. No new medical complaints this morning. Objective: VITAL SIGNS: See below GENERAL: Alert, comfortable, in no acute distress HEENT: Normocephalic, atraumatic, scleral icterus CARDIOVASCULAR: Regular rate and rhythm, normal S1 and S2. No murmurs, rubs, or gallops RESPIRATORY: Clear to auscultation bilaterally with equal air entry bilaterally. No wheezing, rhonchi, or rales. A/P: 35F with PMHx HFpEF (LVEF: 60%) / Pulmonary HTN, HTN, IDDM1, ESRD/HD (MWF), Neuropathy, Retinopathy, with multiple complications, Hx of Osteomyelitis / #DFU, Hx of C. diff colitis (12/01/2020), who presented to ER with chest pain, SOB and diarrhea. Pt was admitted for further evaluation of fluid overload and diarrhea. She has also been found to have elevated bilirubin and alk phos with RUQ pain. #DKA - will make NPO, start regular insulin infusion protocol - serial BMP - fluids management as per nephrology #Dyspnea - resolved - Likely 2/2 fluid overload, possibly CHF exacerbation. Pt has hx of CHF exacerbation and HFpEF with EF of 60%. - Monitor I&O's, daily weights, and fluid restriction. - Echocardiogram results reviewed showing moderate pulmonary hypertension #transaminitis/hyperbilirubinemia - discussed with GI - considering hydralazine induced hepatitis - medication has been discontinued and pt started on prednisone - Liver US showed no gallstones, diffuse gallbladder wall thickening up to 14 mm, mild free fluid around the liver, no biliary dilatation, and mild hepatomegaly. - Abd MRI shows hepatomegaly, diffuse edematous changes in the soft tissues outside the abd, homogenous low signal intensity throughout the liver, periportal edema pattern, this is nonspecific and can be seen in hepatitis, CHF, cholangitis, liver and bone marrow transplantation states and blunt trauma. - HIDA scan done and findings consistent with advanced cholestasis. Poor hepatocellular parenchymal washout. Gallbladder is visualized in a normal time interval and there is some radiotracer in the small intestine. This mitigates against biliary obstruction. - Hepatitis panel is negative. - MEEK, ANCA, and anti-mitochondrial ab have resulted negative. Pt ELIZABETH level elevated at 104. DDx for this include sarcoidosis - Liver biopsy pending, delayed due to uncontrolled hypertension #HTN - D/C'd Hydralazine as above. - Continue Amlodipine 10 mg PO Daily, Losartan 50 mg PO BID, Metoprolol 100 mg PO BID. - Nephrology has added Clonidine 0.1 mg PO TID #Chest pain - resolved - Possibly 2/2 CHF exacerbation. - Troponins have been negative x3. EKG showed no acute changes. - Pt reports that her chest pain is now intermittent and much better than it was at the time of admission. #hemoptysis - improved with nasal saline spray, suspect this was 2/2 dry mucous membranes #Diarrhea - resolved - This appears to be a chronic issue for pt - GI panel was negative. - Continue Bacid. #Anemia - Likely 2/2 ESRD. - s/p 2 units PRBC during this admission. - Hgb at baseline and has improved since admission. - monitor daily #Leukocytosis - Appears to be chronically elevated in pt. - Pt has chronic diabetic foot ulcer to the L foot but does not appear cellulitic. Do not believe this is the source of leukocytosis. - She has been afebrile and is hemodynamically stable. #ESRD on HD MWF - Pt has R PermCath in place. - Nephrology has been consulted and pt is receiving hemodialysis MWF #IDDM1 - Sliding scale insulin with hypoglycemic protocol in place. - Consistent carb diet. #Chronic diabetic L foot ulcer - Does not appear cellulitic. - Continue with wound care. #Hyponatremia DVT Prophylaxis: teds/scds Dispo: pending clinical improvement, transition to SC insulin; monitor LFT/bilirubin, liver biopsy if no improvement VS,Kiana, I+O VS, Kiana, I+O Laboratory Tests 02/03/21 17:49 02/03/21 20:55 02/04/21 00:06 02/04/21 03:19 02/04/21 05:28 02/04/21 07:44 02/04/21 10:04 Vital Signs Date Time Temp Pulse Resp B/P (MAP) Pulse Ox O2 Delivery O2 Flow Rate FiO2 02/04/21 08:33 72 02/04/21 08:32 186/88 02/04/21 08:32 98.4 20 99 Room Air I&O- Last 24 Hours up to 6 AM 02/04/21 06:00 Intake Total 2760 ml Output Total 0 ml Balance 2760 ml KERMIT LARIOS MD Feb 04, 2021 12:17
[2021-02-04 13:08] LABS: CALCIUM LEVEL 9.2 MG/DL (8.5-10.1); CREATININE FOR GFR 6.61 MG/DL (0.55-1.30); GLOMERULAR FILTRATION RATE 9.3 (>60); POTASSIUM SERUM 5.5 MEQ/L (3.5-5.1)
[2021-02-04 15:11] LABS: CALCIUM LEVEL 9.6 MG/DL (8.5-10.1); CREATININE FOR GFR 6.79 MG/DL (0.55-1.30); POTASSIUM SERUM 4.8 MEQ/L (3.5-5.1)
[2021-02-04] MEDS ORDERED: LEVEMIR (INSULIN DETEMIR) 1 UNITS/0.01ML SC ONE (16:15)
[2021-02-04] MEDS: LEVEMIR (INSULIN DETEMIR) 1 UNITS/0.01ML SC SCH (21:24)
[2021-02-05] VITALS (13 sets, daily range): BP systolic 178–236; BP diastolic 81–107; O2SAT 99
[2021-02-05] MEDS ORDERED: LABETALOL 100MG/20ML VIAL IV ONE ×3 (01:15→10:25)
[2021-02-05] MEDS ORDERED: LOSARTAN 50MG TABLET PO ONE (04:15)
[2021-02-05 05:16] LABS: BASO % 0.1 % (0.0-1.0); EOS % 0.1 % (0.0-3.0); HEMATOCRIT 27.4 % (36.0-47.0); LYMPH # 0.8 10^3/uL (1.5-5.0); LYMPH % 5.7 % (24.0-44.0); MEAN CORPUSCULAR HEMOGLOBIN 29.7 pg (27.0-33.0); MEAN CORPUSCULAR HGB CONC 32.8 g/dl (32.0-36.5); MEAN CORPUSCULAR VOLUME 90.4 fl (80.0-96.0); MONO # 0.6 10^3/uL (0.0-0.8); MONO % 4.2 % (2.0-8.0); NEUTROPHILS # 12.4 10^3/uL (1.5-8.5); NEUTROPHILS % 88.9 % (36.0-66.0); PLATELET COUNT, AUTOMATED 725 10^3/uL (150-450); RED BLOOD COUNT 3.03 10^6/uL (4.00-5.40); WHITE BLOOD COUNT 13.9 10^3/uL (4.0-10.0)
[2021-02-05] MEDS ORDERED: LABETALOL 100MG/20ML VIAL IV STA (05:50)
[2021-02-05 05:54] LABS: ALBUMIN 2.6 GM/DL (3.2-5.2); BILIRUBIN,TOTAL 2.6 MG/DL (0.2-1.0); CALCIUM LEVEL 9.1 MG/DL (8.5-10.1); CREATININE FOR GFR 4.5 MG/DL (0.55-1.30); GLOMERULAR FILTRATION RATE 14.5 (>60); POTASSIUM SERUM 4.3 MEQ/L (3.5-5.1); TOTAL PROTEIN 8.6 GM/DL (6.4-8.2)
[2021-02-05] MEDS ORDERED: cloNIDine 0.1MG TABLET PO ONE (05:55)
[2021-02-05] MEDS ORDERED: LOSARTAN 50MG TABLET PO SCH (06:00)
[2021-02-05] MEDS: METOPROLOL TARTRATE 100 MG TAB PO SCH ×2 (06:17→21:45)
[2021-02-05] MEDS: cloNIDine 0.1MG TABLET PO SCH ×3 (06:18→21:44)
[2021-02-05] MEDS: LOSARTAN 50MG TABLET PO SCH ×2 (06:19→21:44)
[2021-02-05] MEDS ORDERED: GLUCAGON INJ 1MG VIAL SC PRN (08:00)
[2021-02-05] MEDS ORDERED: GLUCOSE 4GM CHEW TABLET PO PRN (08:00)
[2021-02-05] MEDS: HumaLOG INSULIN (NovoLOG) PER UNIT SC SCH ×4 (08:19→21:00)
[2021-02-05] MEDS: LACTOBACILLUS ACIDOPHILUS CAP (BACID) PO SCH ×2 (08:20→18:26)
[2021-02-05] MEDS: (RENVELA) SEVELAMER **CARBONate** 800 MG TAB PO SCH ×3 (08:20→18:26)
[2021-02-05] MEDS: ISOSORBIDE MON. (IMDUR) 60 MG XR TAB PO SCH (08:21)
[2021-02-05] MEDS: PANTOPRAZOLE 40MG TAB (PROTONIX) PO SCH (08:21)
[2021-02-05] MEDS: hydrOXYzine 25 MG TAB PO SCH ×2 (08:21→21:44)
[2021-02-05] MEDS: ASPIRIN 81MG ENTERIC TABLET PO SCH (08:21)
[2021-02-05] MEDS: CALCITRIOL 0.25 MCG CAP (S0169) PO SCH (08:21)
--- NOTE | 2021-02-05 09:17 | IPN ---
PROGRESS NOTE DATE: 02/04/2021 SUBJECTIVE: Patient was seen and examined at the bedside today morning in the intensive care unit (ICU). Last 24 hour events were noted. Patient ordered food from outside that includes milkshakes and sweets and she was on prednisone as well yesterday. She went into diabetic ketoacidosis (DKA) last night. She was transferred to ICU, was given IV fluid, and she was also started on insulin drip. When I saw her in the morning, she was getting the insulin drip. Today is patient's regular day of dialysis as well. Prednisone was stopped today morning because of elevated blood sugar levels. OBJECTIVE: Vital signs: Temperature is 94.6 degrees Fahrenheit, blood pressure 159/89, pulse is 57, respiratory rate of 18, saturating 98% on room air. Intake and output: There is no urine output recorded. Patient was given IV fluid boluses last night because of DKA. Weight in the bed scale is 94.2 kg. PHYSICAL EXAMINATION: General: Patient is awake, alert, oriented times three, sitting up in the bed, no apparent distress. Head and neck exam: Extraocular muscles intact. Pupils equally round and reactive to light. Mucous membranes are moist. Neck is supple. She has a tunneled hemodialysis catheter. Cardiovascular: S1, S2, regular rate. 2+ edema of the bilateral lower extremities. Respiratory: Chest is clear to auscultation bilaterally, bilateral equal air entry, no rales or rhonchi. Abdomen: Soft, positive bowel sounds, nontender, no organomegaly. Musculoskeletal: No clubbing or cyanosis. She has a dressing on the left foot. 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 Power is 5/5 in all extremities. LABORATORY REVIEW: CBC showed WBC of 14.2, hemoglobin is 8.4, platelets are 677. BMP showed sodium 128, potassium 4.1, chloride 96, bicarbonate 15, BUN 85, creatinine is 6.5, sugar of 367. Beta-hydroxybutyrate was negative yesterday. CURRENT INPATIENT MEDICATIONS: Patient's medications were all reviewed by myself. She is currently on IV insulin drip. She was also given normal saline 1 liter bolus last night. Prednisone has been stopped. ASSESSMENT AND PLAN: 1. End-stage renal disease. Today is patient's regular day of dialysis. She will be dialyzed at the bedside and at least 3.5 liters of fluid will be removed. 2. Acute hepatitis. High probability is hydralazine induced hepatitis. Hydralazine was stopped. Liver biopsy is on hold because of elevated blood sugar levels. Prednisone was tried for 2 days but because of hyperglycemia it has been stopped now. 3. Hypertension with hypertensive heart disease. Continue current multidrug regimen but avoid use of hydralazine because of hepatitis. 4. Type 1 diabetes with hyperglycemia secondary to steroids and noncompliance with low carbohydrate diet. Continue insulin drip at this time. Avoid aggressive IV fluid hydration in this patient with renal failure and elevated blood pressures. 5. Anemia in end-stage renal disease. Continue current dose of Aranesp.
--- NOTE | 2021-02-05 09:32 | IPNPDOC ---
Text Note Date of Service The patient was seen on 02/05/21. NOTE Subjective: Patient is a 35-year-old female with a PMHx of Diastolic CHF (EF: 60%) / Pulmonary HTN, HTN, IDDM1, ESRD on HD (MWF), Neuropathy, Retinopathy, with mult iple complications, Hx of Osteomyelitis / Diabetic foot ulcers, Hx of C. diff colitis (12/01/2020), who presented to ER with chest pain, SOB and diarrhea. Patient has had multiple admissions at [facility] for noncompliance with medications. [facility] Patient was seen and examined at the bedside. Reports that he feels relatively fine. Denies any chest pain, shortness breath, palpitations, nausea, vomiting, abdominal pain or diarrhea. Objective: Vitals (See below) General: Sitting up in bed, appears to be comfortable, is in no acute distress, is awake, alert and oriented 3 HEENT: NC, AT CVS: +S1S2 Lungs: Fair air entry bilaterally without auscultated rhonchi, crackles or wheezing Abdomen: Nondistended, nontender and soft Extremities: Does not appear to have any significant edema Imaging: CXR 01/24: Asymmetric opacities in the left lung suggesting asymmetric pulmonary edema or developing pneumonia. CT angio Chest 01/24: 1. Left greater than right diffuse ground-glass opacities and linear interstitial thickening suggesting pulmonary edema. 2. No other airspace consolidation. 3. Pulmonary embolism. 4. Cardiomegaly. Liver US 01/25: No gallstones, but there is significant diffuse gallbladder wall thickening up to 14 mm. Cholecystitis is not excluded. Mild free fluid around the liver. No biliary dilatation. Mild hepatomegaly. Findings of medical renal disease. MRCP 01/26: Hepatomegaly, diffuse edematous changes in the soft tissues outside the abdomen. Homogeneous low signal intensity throughout the liver. Periportal edema pattern. This is nonspecific and can be seen in hepatitis, CHF, cholangitis, liver and bone marrow transplantation states and blunt trauma. MRCP sequence was of poor uninterpretable quality but bile ducts do not appear dilated based on T2 weighted imaging. Assessment and plan: s/p DKA; IDDM1; poorly controlled - Patient is noncompliant with medications - A1c 10 - s/p Insulin drip - Will start ISS AC / HS - c/w Levemir; will increase dose HTN; s/p Hypertensive urgency - Patient is noncompliant with medications - BP elevated this morning - Will be dialyzed today - s/p Hydralazine (re: elevated liver enzymes) - c/w furosemide, isosorbide mononitrate, metoprolol, nifedipine, losartan, aml odipine Dyspnea - likely 2/2 fluid overload - Does not appear to have any signs of fluid overload - Continue with strict ins and outs, daily weights, fluid restrictions - c/w diuresis and dialysis as scheduled s/p Chest Pain - EKG negative - Troponin x 3 negative Elevated alkaline phosphatase / Bilirubin - Primary providers have discussed with GI; hydralazine-induced hepatitis - Bilirubin has been slightly improving - MEEK, ANCA, and anti-mitochondrial ab have resulted negative. Pt ELIZABETH level elevated at 104. DDx for this include sarcoidosis - Hepatitis panel was negative in 2019; repeat pending - Imaging noted above - s/p Hydralazine - c/w Prednisone s/p Diarrhea - c/w Probiotic ESRD on HD (MWF) - Nonfunctioning right arm AV fistula - R PermCath in place - Nephrology on consultation; we appreciate their input Chronic diabetic left foot ulcer - Hemodynamically stable and afebrile - c/w Wound care - Podiatry (Dr. Mondragon) on consult; appreciate their input Anemia likely 2/2 to ESRD - s/p 2 units PRBC - Hg at baseline / will trend Hyponatremia - likely 2/2 hypervolemia - c/w Dialysis as scheduled DVT prophylaxis - c/w TEDs/Sequentials Disposition: - Awaiting clinical improvement - Has housing established for discharge VS,Kiana, I+O VS, Noele, I+O Laboratory Tests 02/04/21 10:04 02/04/21 12:21 02/04/21 14:34 02/05/21 04:53 Vital Signs Date Time Temp Pulse Resp B/P (MAP) Pulse Ox O2 Delivery O2 Flow Rate FiO2 02/05/21 08:21 65 02/05/21 08:21 234/106 02/05/21 05:48 16 99 Room Air 02/05/21 03:55 96.9 I&O- Last 24 Hours up to 6 AM0 02/05/21 06:00 Intake Total 642 ml Output Total 3500 ml Balance -2858 ml JOSE A CONCEPCION MD Feb 05, 2021 09:32
[2021-02-05] MEDS: LEVEMIR (INSULIN DETEMIR) 1 UNITS/0.01ML SC SCH ×2 (09:55→22:01)
[2021-02-05] MEDS ORDERED: LABETALOL 100MG/20ML VIAL IV PRN (11:35)
--- NOTE | 2021-02-05 21:13 | IPN ---
NEPHROLOGY PROGRESS NOTE DATE: 02/05/2021 SUBJECTIVE: Patient was seen and examined at the bedside today morning in the ICU. She was dialyzed yesterday. She tolerated the hemodialysis procedure well; 3.5 liter of fluid was removed. Blood pressure was initially better, however, overnight it has gone up again and systolic blood pressures were in 200's in the morning. Her LFTs are slowly improving. Total bilirubin is 2.6 today. OBJECTIVE: VITAL SIGNS: Temperature 95.9 degrees Fahrenheit, blood pressure 223/99, pulse 69, respiratory rate 16, sating 97% on room air. INTAKE AND OUTPUT: Ultrafiltration with hemodialysis was 3.5 liters yesterday. Weight in the bed scale is 91.9 kg. PHYSICAL EXAMINATION: GENERAL: Patient is awake, alert, oriented x3, lying in bed, in no apparent distress. HEAD/NECK: Extraocular muscles intact. Pupils equally round and reactive to light. Mucous membranes are moist. Neck is supple. She has a tunneled hemodialysis catheter. RESPIRATORY: Chest is clear to auscultation bilaterally. Bilateral equal air entry. No rales or rhonchi. CARDIOVASCULAR: S1, S2, regular rate. Trace edema of bilateral lower extremities. ABDOMEN: Soft, positive bowel sounds, nontender. No organomegaly. MUSCULOSKELETAL: No clubbing or cyanosis. Pulses are 2+. She has a dressing on the left foot. METER INSPECTOR: No focal deficit. Power is 5/5 in all extremities. LAB REVIEW: CBC showed WBC 13.9, hemoglobin 9, platelets 725,000. BMP showed sodium 131, potassium 4.3, chloride 99, bicarb 22, BUN 50, creatinine 4.5. Total bilirubin 2.6. AST 56, ALT 86, alkaline phosphatase 1,103. Albumin 2.6. CURRENT INPATIENT MEDICATIONS: Patient's medications were all reviewed by myself. Her Clonidine dose remains 0.1 mg p.o. three times a day. She continues to be on Isosorbide 60 mg p.o. daily. I.V. Labetalol 20 mg I.V. was given in the morning. She continues to be on Losartan 50 mg p.o. twice a day and Metoprolol 100 mg p.o. twice a day. ASSESSMENT AND PLAN: 1. Hypertensive urgency: Patient's medications were adjusted as mentioned above. Isosorbide dose was also increased. Patient is also being dialyzed and further 3 to 3.5 kg of fluid will be removed to help improve the blood pressure. 2. End-stage renal disease: Patient's regular dialysis day was yesterday, however because of fluid overload, another session is being done today. 3. Anemia and end-stage renal disease: Hemoglobin level is 9, which is improving. Continue current dose of Aranesp. 4. Secondary hyperparathyroidism: Continue current dose of Calcitriol 0.25 mcg p.o. daily. 5. Insulin dependent diabetes: Patient's Levemir dose has been increased to 20 units subcutaneously twice a day. She is also on insulin sliding scale.
[2021-02-06] VITALS (9 sets, daily range): BP systolic 156–200; BP diastolic 75–100; O2SAT 99
[2021-02-06] MEDS ORDERED: LIDOCAINE 5% (LIDODERM) PATCH TD ONE (00:30)
[2021-02-06] MEDS ORDERED: LIDOCAINE 5% (LIDODERM) PATCH As Ordered ONE (00:37)
[2021-02-06] MEDS: HumaLOG INSULIN (NovoLOG) PER UNIT SC SCH ×4 (07:30→21:00)
[2021-02-06] MEDS: PANTOPRAZOLE 40MG TAB (PROTONIX) PO SCH (08:41)
[2021-02-06] MEDS: ISOSORBIDE MON. (IMDUR) 30 MG XR TAB PO SCH (08:41)
[2021-02-06] MEDS: hydrOXYzine 25 MG TAB PO SCH ×2 (08:41→21:27)
[2021-02-06] MEDS: LACTOBACILLUS ACIDOPHILUS CAP (BACID) PO SCH ×2 (08:42→18:03)
[2021-02-06] MEDS: LOSARTAN 50MG TABLET PO SCH ×2 (08:42→21:27)
[2021-02-06] MEDS: METOPROLOL TARTRATE 100 MG TAB PO SCH ×2 (08:42→21:27)
[2021-02-06] MEDS: CALCITRIOL 0.25 MCG CAP (S0169) PO SCH (08:43)
[2021-02-06] MEDS: cloNIDine 0.1MG TABLET PO SCH ×3 (08:43→21:27)
[2021-02-06] MEDS: (RENVELA) SEVELAMER **CARBONate** 800 MG TAB PO SCH ×3 (08:44→18:02)
[2021-02-06] MEDS: ASPIRIN 81MG ENTERIC TABLET PO SCH (08:44)
[2021-02-06] MEDS: LEVEMIR (INSULIN DETEMIR) 1 UNITS/0.01ML SC SCH ×2 (09:00→21:26)
[2021-02-06 09:08] LABS: BASO % 0.3 % (0.0-1.0); EOS # 0.3 10^3/uL (0.0-0.5); HEMATOCRIT 26.1 % (36.0-47.0); HEMOGLOBIN 8.4 g/dl (12.0-15.5); LYMPH # 1.5 10^3/uL (1.5-5.0); LYMPH % 11.8 % (24.0-44.0); MEAN CORPUSCULAR HEMOGLOBIN 29.8 pg (27.0-33.0); MEAN CORPUSCULAR HGB CONC 32.2 g/dl (32.0-36.5); MEAN CORPUSCULAR VOLUME 92.6 fl (80.0-96.0); NEUTROPHILS # 9.5 10^3/uL (1.5-8.5); NEUTROPHILS % 76.6 % (36.0-66.0); PLATELET COUNT, AUTOMATED 688 10^3/uL (150-450); RED BLOOD COUNT 2.82 10^6/uL (4.00-5.40); WHITE BLOOD COUNT 12.4 10^3/uL (4.0-10.0)
[2021-02-06] MEDS: LIDOCAINE 4% CREAM 5GM (LMX4) TOP PRN (09:27)
[2021-02-06 09:50] LABS: ALBUMIN 2.7 GM/DL (3.2-5.2); BILIRUBIN,TOTAL 2.9 MG/DL (0.2-1.0); CALCIUM LEVEL 8.6 MG/DL (8.5-10.1); CREATININE FOR GFR 3.68 MG/DL (0.55-1.30); GLOMERULAR FILTRATION RATE 18.3 (>60); MAGNESIUM LEVEL 2.3 MG/DL (1.8-2.4); POTASSIUM SERUM 5.3 MEQ/L (3.5-5.1); TOTAL PROTEIN 7.6 GM/DL (6.4-8.2)
[2021-02-06] MEDS ORDERED: LEVEMIR (INSULIN DETEMIR) 1 UNITS/0.01ML SC ONE (09:55)
--- NOTE | 2021-02-06 10:52 | IPNPDOC ---
Text Note Date of Service The patient was seen on 02/06/21. NOTE Subjective: Patient is a 35-year-old female with a PMHx of Diastolic CHF (EF: 60%) / Pulmonary HTN, HTN, IDDM1, ESRD on HD (MWF), Neuropathy, Retinopathy, with mult iple complications, Hx of Osteomyelitis / Diabetic foot ulcers, Hx of C. diff colitis (12/01/2020), who presented to ER with chest pain, SOB and diarrhea. Patient has had multiple admissions at [facility] for noncompliance with medications. Patient is currently in housing with the [facility]. Patient was seen and examined at the bedside. Patient reports that she is experiencing some right tenderness. Denies any chest pain, shortness breath, palpitations, abdominal pain, or diarrhea. Objective: Vitals (See below) General: Patient is sitting up in bed, appears comfortable, complaining of right fore-arm pain, AAO 3 HEENT: NC, AT CVS: +S1S2 Lungs: There is fair air entry bilaterally without evidence of wheezing, crackles or rhonchi Abdomen: Abdomen again is soft without distention or tenderness Extremities: Lower extremities are without edema Imaging: CXR 01/24: Asymmetric opacities in the left lung suggesting asymmetric pulmonary edema or developing pneumonia. CT angio Chest 01/24: 1. Left greater than right diffuse ground-glass opacities and linear interst itial thickening suggesting pulmonary edema. 2. No other airspace consolidation. 3. Pulmonary embolism. 4. Cardiomegaly. Liver US 01/25: No gallstones, but there is significant diffuse gallbladder wall thickening up to 14 mm. Cholecystitis is not excluded. Mild free fluid around the liver. No biliary dilatation. Mild hepatomegaly. Findings of medical renal disease. MRCP 01/26: Hepatomegaly, diffuse edematous changes in the soft tissues outside the abdomen. Homogeneous low signal intensity throughout the liver. Periportal edema patter n. This is nonspecific and can be seen in hepatitis, CHF, cholangitis, liver and bone marrow transplantation states and blunt trauma. MRCP sequence was of poor uninterpretable quality but bile ducts do not appear dilated based on T2 weighted imaging. Assessment and plan: s/p DKA; IDDM1; poorly controlled - Patient is noncompliant with medications - A1c 10 - s/p Insulin drip - c/w ISS - c/w Levemir at adjusted dose HTN; s/p Hypertensive urgency - Patient is non compliant with medications - BP better controlled this morning; but still elevated - s/p Hydralazine (re: elevated liver enzymes) - c/w isosorbide mononitrate, metoprolol, losartan, amlodipine, clonidine; dose of clonidine increased this morning Dyspnea - likely 2/2 fluid overload - Does not appear to have any signs of fluid overload - Continue with strict ins and outs, daily weights, fluid restrictions - c/w diuresis and dialysis as scheduled s/p Chest Pain - EKG negative - Troponin x 3 negative Elevated alkaline phosphatase / Bilirubin - Possibly 2/2 hydralazine-induced hepatitis - Bilirubin has improved; but AST / ALT have worsening - will continue to monitor - MEEK, ANCA, and anti-mitochondrial ab have resulted negative. Pt ELIZABETH level elevated at 104. DDx for this include sarcoidosis - Hepatitis panel was negative in 2019; repeat negative - Imaging noted above - s/p Hydralazine - s/p Prednisone s/p Diarrhea - c/w Probiotic ESRD on HD (MWF) - Nonfunctioning right arm AV fistula - R PermCath in place - Nephrology on consultation; we appreciate their input Chronic diabetic left foot ulcer - Hemodynamically stable and afebrile - c/w Wound care - Podiatry (Dr. Mondragon) on consult; appreciate their input Anemia likely 2/2 to ESRD - s/p 2 units PRBC - Hg at baseline / will trend Hyponatremia - likely 2/2 hypervolemia - c/w Dialysis as scheduled Anxiety - c/w Hydroxyzine DVT prophylaxis - c/w TEDs/Sequentials Disposition: - Awaiting clinical improvement - Has housing established for discharge VS,Fishbone, I+O VS, Fishbone, I+O Laboratory Tests 02/06/21 08:36 Vital Signs Date Time Temp Pulse Resp B/P (MAP) Pulse Ox O2 Delivery O2 Flow Rate FiO2 02/06/21 08:42 75 180/90 02/06/21 07:38 98.8 18 96 Room Air I&O- Last 24 Hours up to 6 AM 02/06/21 06:00 Intake Total 1440 ml Output Total 3000 ml Balance -1560 ml JOSE A CONCEPCION MD Feb 06, 2021 10:52
[2021-02-06 12:07] LABS: ANTI DS-DNA AB Negative (Negative)
[2021-02-06] MEDS ORDERED: **NOTE PATIENT COMMENT** MISC XX ONE (12:30)
[2021-02-06 13:07] LABS: ANTI-HISTONE ANTIBODIES 0.6 Units (0.0-0.9)
[2021-02-06] MEDS: DARBEPOETIN 200MCG/0.4ML *DIALYSIS* SYRINGE (J0882 PER 1MCG) IV SCH (14:32)
[2021-02-07] VITALS (12 sets, daily range): BP systolic 168–214; BP diastolic 72–102
--- NOTE | 2021-02-07 00:32 | IPN ---
NEPHROLOGY PROGRESS NOTE DATE: 02/06/2021 SUBJECTIVE: Patient was seen and examined at the bedside today morning. She is afebrile. She complains of left leg pain. She was dialyzed yesterday because of persistently elevated blood pressures. Today is her regular day of dialysis. Despite extra session of dialysis yesterday, she still has blood pressures in 190's systolic. She otherwise denies any active complaints apart from pain in the left leg. OBJECTIVE: VITAL SIGNS: Temperature 99.6 degrees Fahrenheit, blood pressure 194/94, pulse 71, respiratory rate 18, sating 96% on room air. INTAKE/OUTPUT: Urine output is not recorded. Weight in the bed scale is 93.3 kg. PHYSICAL EXAMINATION: GENERAL: Patient is awake, alert, oriented x3, lying in bed, in no apparent distress. HEAD/NECK: Extraocular muscles intact. Pupils equally round and reactive to light. Mucous membranes are moist. Neck is supple. She has a tunneled hemodialysis catheter. RESPIRATORY: Chest is clear to auscultation bilaterally. Bilateral equal air entry. No rales or rhonchi. CARDIOVASCULAR: S1, S2, regular rate. Trace edema of bilateral lower extremities. ABDOMEN: Soft, obese, positive bowel sounds, nontender. No organomegaly. MUSCULOSKELETAL: Mildly decreased range of movement of the left leg because of pain. She is wearing a Lidoderm patch on the left side. She also has dressing on left foot. 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 Power is 5/5 in all extremities. LAB REVIEW: CBC showed WBC 12.4, hemoglobin 8.4, platelets 688,000. BMP showed sodium 133, potassium 5.3, chloride 101, bicarb 22, BUN 46, creatinine 3.6. Total bilirubin 2.9. AST 105, ALT 108, alkaline phosphatase 1,266. CURRENT INPATIENT MEDICATIONS: Patient's medications were all reviewed by myself. Her Clonidine dose has been changed to 0.3 mg p.o. three times a day. Insulin Levemir units have been changed to 15 units subcutaneously twice a day. No other significant change in the medications. ASSESSMENT AND PLAN: 1. End-stage renal disease: Patient will be dialyzed today. Ultrafiltration goal will be at least 3 liters today. 2. Persistent uncontrolled hypertension: I am hopeful that after today's session of hemodialysis, her blood pressure should be better controlled. Clonidine dose has already been increased. Isosorbide was just increased yesterday. We are not giving her Hydralazine for possible association with Hepatitis. 3. Anemia and end-stage renal disease: Patient is getting Aranesp with dialysis, I would not increase the dose further because of elevated blood pressures. 4. Secondary hyperparathyroidism: Continue current dose of Calcitriol. 5. Insulin dependent diabetes: She was hyperglycemic earlier. Levemir dose has been adjusted by the medical team.
[2021-02-07] MEDS: LABETALOL 100MG/20ML VIAL IV PRN ×2 (01:54→06:26)
[2021-02-07] MEDS: cloNIDine 0.1MG TABLET PO SCH ×3 (04:25→20:58)
[2021-02-07] MEDS ORDERED: cloNIDine 0.1MG TABLET PO ONE (05:30)
[2021-02-07 05:44] LABS: BASO # 0.1 10^3/uL (0.0-0.2); BASO % 0.5 % (0.0-1.0); EOS # 0.2 10^3/uL (0.0-0.5); HEMATOCRIT 27.2 % (36.0-47.0); HEMOGLOBIN 8.8 g/dl (12.0-15.5); LYMPH # 1.5 10^3/uL (1.5-5.0); LYMPH % 12.6 % (24.0-44.0); MEAN CORPUSCULAR HGB CONC 32.4 g/dl (32.0-36.5); MEAN CORPUSCULAR VOLUME 92.8 fl (80.0-96.0); MONO # 0.8 10^3/uL (0.0-0.8); MONO % 7.1 % (2.0-8.0); NEUTROPHILS # 8.8 10^3/uL (1.5-8.5); NEUTROPHILS % 75.6 % (36.0-66.0); PLATELET COUNT, AUTOMATED 675 10^3/uL (150-450); RED BLOOD COUNT 2.93 10^6/uL (4.00-5.40); WHITE BLOOD COUNT 11.6 10^3/uL (4.0-10.0)
[2021-02-07 06:08] LABS: CALCIUM LEVEL 8.8 MG/DL (8.5-10.1); CREATININE FOR GFR 3.12 MG/DL (0.55-1.30); GLOMERULAR FILTRATION RATE 22.2 (>60); MAGNESIUM LEVEL 2.2 MG/DL (1.8-2.4); POTASSIUM SERUM 4.4 MEQ/L (3.5-5.1)
[2021-02-07] MEDS: ISOSORBIDE MON. (IMDUR) 30 MG XR TAB PO SCH (07:12)
[2021-02-07] MEDS: METOPROLOL TARTRATE 100 MG TAB PO SCH (07:13)
[2021-02-07] MEDS: LOSARTAN 50MG TABLET PO SCH ×2 (07:14→20:59)
[2021-02-07] MEDS: HumaLOG INSULIN (NovoLOG) PER UNIT SC SCH ×4 (07:30→21:24)
[2021-02-07 08:28] LABS: ALBUMIN 2.6 GM/DL (3.2-5.2); BILIRUBIN,DIRECT 2.4 MG/DL (0.0-0.2); BILIRUBIN,TOTAL 2.8 MG/DL (0.2-1.0); TOTAL PROTEIN 7.8 GM/DL (6.4-8.2)
[2021-02-07 09:53] LABS: PHOSPHORUS LEVEL 4.8 MG/DL (2.5-4.9)
[2021-02-07] MEDS: DEXTROSE 50% 50 ML SYRINGE IV PRN ×3 (10:00→14:51)
--- NOTE | 2021-02-07 10:27 | IPNPDOC ---
Text Note Date of Service The patient was seen on 02/07/21. NOTE Subjective: Patient is a 35-year-old female with a PMHx of Diastolic CHF (EF: 60%) / Pulmonary HTN, HTN, IDDM1, ESRD on HD (MWF), Neuropathy, Retinopathy, with mult iple complications, Hx of Osteomyelitis / Diabetic foot ulcers, Hx of C. diff colitis (12/01/2020), who presented to ER with chest pain, SOB and diarrhea. Patient has had multiple admissions at [facility] for noncompliance with medications. Patient is currently in housing with the [facility]. Patient was seen and examined at the bedside. Patient was seen sitting up in bed, appears to be comfortable, denied any chest pain, shortness breath, palpitations. Denied any headache, abdominal pain or diarrhea. Objective: Vitals (See below) General: Patient is sitting up in bed, appears to be comfortable, awake, alert and oriented 3 HEENT: NC, AT CVS: +S1S2 Lungs: Air entry is fair bilaterally without any evidence of wheezing, crackles or rhonchi Abdomen: Soft without distention or tenderness Extremities: No edema appreciated Imaging: CXR 01/24: Asymmetric opacities in the left lung suggesting asymmetric pulmonary edema or developing pneumonia. CT angio Chest 01/24: 1. Left greater than right diffuse ground-glass opacities and linear interstitial thickening suggesting pulmonary edema. 2. No other airspace consolidation. 3. Pulmonary embolism. 4. Cardiomegaly. Liver US 01/25: No gallstones, but there is significant diffuse gallbladder wall thickening up to 14 mm. Cholecystitis is not excluded. Mild free fluid around the liver. No biliary dilatation. Mild hepatomegaly. Findings of medical renal disease. MRCP 01/26: Hepatomegaly, diffuse edematous changes in the soft tissues outside the abdomen. Homogeneous low signal intensity throughout the liver. Periportal edema pattern. This is nonspecific and can be seen in hepatitis, CHF, cholangitis, liver and bone marrow transplantation states and blunt trauma. MRCP sequence was of poor uninterpretable quality but bile ducts do not appear dilated based on T2 weighted imaging. Assessment and plan: s/p DKA; IDDM1; poorly controlled - Patient is noncompliant with medications - A1c 10 - s/p Insulin drip - c/w ISS - c/w Levemir at adjusted dose HTN; s/p Hypertensive urgency - Patient is non compliant with medications - BP better controlled this morning; but still elevated - s/p Hydralazine (re: elevated liver enzymes) - c/w isosorbide mononitrate, losartan, amlodipine, clonidine - Will DC metoprolol; will start Carvedilol Dyspnea - likely 2/2 fluid overload - Does not appear to have any signs of fluid overload - Continue with strict ins and outs, daily weights, fluid restrictions - c/w diuresis and dialysis as scheduled s/p Chest Pain - EKG negative - Troponin x 3 negative Elevated alkaline phosphatase / Bilirubin - Possibly 2/2 hydralazine-induced hepatitis - Liver function has improved relatively - MEEK, ANCA, and anti-mitochondrial ab have resulted negative. Pt ELIZABETH level elevated at 104. DDx for this include sarcoidosis - Hepatitis panel was negative in 2019; repeat negative - Imaging noted above - s/p Hydralazine - s/p Prednisone - Will go for liver biopsy today with IR s/p Diarrhea - c/w Probiotic ESRD on HD (MWF) - Nonfunctioning right arm AV fistula - R PermCath in place - Nephrology on consultation; we appreciate their input Chronic diabetic left foot ulcer - Hemodynamically stable and afebrile - c/w Wound care - Podiatry (Dr. Mondragon) on consult; appreciate their input Anemia likely 2/2 to ESRD - s/p 2 units PRBC - Hg at baseline / will trend Hyponatremia - likely 2/2 hypervolemia - Improving - c/w Dialysis as scheduled Anxiety - c/w Hydroxyzine DVT prophylaxis - c/w TEDs/Sequentials Disposition: - Awaiting clinical improvement; going for liver biopsy today - Has housing established for discharge VS,Fishbone, I+O VS, Fishbone, I+O Laboratory Tests 02/07/21 05:19 Vital Signs Date Time Temp Pulse Resp B/P (MAP) Pulse Ox O2 Delivery O2 Flow Rate FiO2 02/07/21 07:33 99.1 71 18 204/98 (133) 96 Room Air I&O- Last 24 Hours up to 6 AM 02/07/21 06:00 Intake Total 960 ml Output Total 3000 ml Balance -2040 ml JOSE A CONCEPCION MD Feb 07, 2021 10:27
[2021-02-07] MEDS: LACTOBACILLUS ACIDOPHILUS CAP (BACID) PO SCH ×2 (11:22→17:41)
[2021-02-07] MEDS: (RENVELA) SEVELAMER **CARBONate** 800 MG TAB PO SCH ×3 (11:22→17:41)
[2021-02-07] MEDS: PANTOPRAZOLE 40MG TAB (PROTONIX) PO SCH ×2 (12:06→12:12)
[2021-02-07] MEDS: ASPIRIN 81MG ENTERIC TABLET PO SCH ×2 (12:06→12:12)
[2021-02-07] MEDS: CALCITRIOL 0.25 MCG CAP (S0169) PO SCH ×2 (12:06→12:12)
[2021-02-07] MEDS: hydrOXYzine 25 MG TAB PO SCH ×3 (12:06→20:58)
[2021-02-07] MEDS: LEVEMIR (INSULIN DETEMIR) 1 UNITS/0.01ML SC SCH ×2 (12:20→21:24)
[2021-02-07] MEDS ORDERED: LABETALOL 100MG/20ML VIAL IV STA (12:30)
[2021-02-07] MEDS ORDERED: LABETALOL 100MG/20ML VIAL As Ordered ONE (12:35)
[2021-02-07] MEDS ORDERED: LIDOCAINE 1% MDV 20ML VIAL As Ordered ONE ×2 (12:56→13:52)
[2021-02-07] MEDS ORDERED: DEXTROSE 50% 50 ML SYRINGE As Ordered ONE (14:50)
[2021-02-07] MEDS ORDERED: SODIUM CHLORIDE 0.9% INJ 10 ML SYR IV PRN (16:30)
--- NOTE | 2021-02-07 17:04 | REP ---
INDICATION: Liver biopsy. COMPARISON: None. TECHNIQUE: The procedure was performed under the direct supervision of Dr. Oconnell. The risks and benefits of the procedure were explained to the patient and informed consent was obtained. The left lobe of the liver was localized using ultrasound guidance. The skin was prepped and draped in a sterile fashion. 1% lidocaine was used as a local anesthetic. Using ultrasound guidance a 17/18 gauge coaxial needle biopsy system was inserted and advanced into the liver. Four core biopsy samples were obtained and sent to the lab. The patient tolerated the procedure well and there were no immediate complications. After the appropriate amount to monitor convalescence the patient was discharged from the department. FINDINGS: None IMPRESSION: Ultrasound-guided liver biopsy. <Electronically signed by Fawad Fernando > 02/07/21 [id number] <Electronically signed by Hesham Oconnell > 02/07/21 170
--- NOTE | 2021-02-07 17:05 | REP ---
INDICATION: Poor peripheral access. COMPARISON: None. TECHNIQUE: The procedure was performed under the direct supervision of Dr. Oconnell. The risks and benefits of the procedure were explained to the patient and informed consent was obtained. The left brachial vein was localized using ultrasound guidance. The skin was prepped and draped in a sterile fashion. 2% lidocaine was used as a local anesthetic. Using ultrasound guidance the brachial vein was cannulated and a 0.018 guidewire was inserted and advanced to the SVC using fluoroscopic guidance. The needle was removed and a 5.5 Turkmen dilator and peel-away sheath was inserted over the guide wire. A 5.5 Turkmen dual lumen catheter was cut to length of 43 cm. The dilator was removed and the catheter was inserted over the guide wire with the tip ending in the SVC. The peel-away sheath was removed and the catheter was flushed with heparinized saline as per Hospital protocol. The catheter was affixed to the skin and a sterile dressing was applied. The patient tolerated the procedure well and there were no immediate complications. 0.3 minutes of fluoro time was utilized for this procedure. FINDINGS: None IMPRESSION: PICC line insertion left brachial vein with the tip ending in the SVC. <Electronically signed by Fawad Fernando > 02/07/21 [id number] <Electronically signed by Hesham Oconnell > 02/07/21 170
[2021-02-07] MEDS: SODIUM CHLORIDE 0.9% INJ 10 ML SYR IV SCH (17:41)
[2021-02-07] MEDS: CARVedilol 12.5 MG TAB PO SCH (20:59)
--- NOTE | 2021-02-07 23:04 | IPN ---
NEPHROLOGY PROGRESS NOTE DATE: 02/07/2021 SUBJECTIVE: The patient was seen and examined at the bedside today morning. The patient's blood pressures were still persistently high so I arranged an extra session of ultrafiltration to be done today and she was getting her ultrafiltration done when I saw her. OBJECTIVE: VITAL SIGNS: Temperature is 98.1 degrees Fahrenheit, blood pressure is 172/77, pulse is 63, respiratory rate of 18, saturating 98% on room air. INTAKE AND OUTPUT: Urine output is not recorded. Ultrafiltration during hemodialysis yesterday was 3 liters. Weight in the bed scale is 89.1 kg. PHYSICAL EXAMINATION: GENERAL APPEARANCE: The patient is awake, alert, oriented x3, laying in bed. HEAD AND NECK: Extraocular muscles intact. Pupils are equally round and reactive to light. Neck is supple. She has a tunneled hemodialysis catheter. CARDIOVASCULAR: S1, S2, regular rate. EXTREMITIES: Trace edema of the bilateral lower extremities. RESPIRATORY: Chest is clear to auscultation bilaterally. Bilaterally currently no rales or rhonchi. ABDOMEN: Soft, positive bowel sounds, nontender, no organomegaly. MUSCULOSKELETAL: She has a dressing on the left leg and she has tenderness to deep palpation in the lower extremities. MOVEMAN: No focal deficits. Power is 5/5 in all extremities. LAB REVIEW: CBC showed a white blood cell count of 11.6, hemoglobin 8.8, platelet count 675. BMP showed sodium of 134, potassium 4.4, chloride 100, bicarbonate 25, BUN 35, creatinine is 3.1. Total bilirubin is 2.8, AST 59, ALT 87, alkaline phosphatase is 1,279. CURRENT INPATIENT MEDICATIONS: The patient's medications were all reviewed by myself. Her Clonidine dose has been increased to 0.3 mg p.o. three times daily. Isosorbide dose is 90 mg daily now. She is also getting p.r.n. IV Labetalol as well. ASSESSMENT AND PLAN: 1. Hypertensive urgency - blood pressures are still uncontrolled. She is getting an extra session of ultrafiltration. She will get tomorrow hemodialysis as per schedule as well. Antihypertensive regimen is slowly escalated. 2. End-stage renal disease - The patient's regular days of dialysis are Thursday, Thursday, Thursday. She was dialyzed yesterday. Today she is getting ultrafiltration and her regular dialysis will begin tomorrow morning. 3. Persistently elevated liver enzymes her Hydralazine was stopped for possible association with hepatitis, however antihistone antibody is negative. All the autoimmune serology so far has come negative and the patient is going to have a liver biopsy done today. 4. Anemia and end-stage renal disease - continue current dose of Aranesp. 5. Insulin dependent diabetes - continue current dose of insulin sliding scale and Levemir.
[2021-02-08] VITALS (7 sets, daily range): BP systolic 152–211; BP diastolic 69–88
[2021-02-08] MEDS: SODIUM CHLORIDE 0.9% INJ 10 ML SYR IV SCH ×2 (04:51→18:03)
[2021-02-08] MEDS: LABETALOL 100MG/20ML VIAL IV PRN (05:16)
[2021-02-08 05:32] LABS: BASO # 0.1 10^3/uL (0.0-0.2); BASO % 0.5 % (0.0-1.0); EOS # 0.3 10^3/uL (0.0-0.5); EOS % 2.7 % (0.0-3.0); HEMATOCRIT 26.6 % (36.0-47.0); HEMOGLOBIN 8.4 g/dl (12.0-15.5); LYMPH # 0.9 10^3/uL (1.5-5.0); MEAN CORPUSCULAR HGB CONC 31.6 g/dl (32.0-36.5); MONO # 0.8 10^3/uL (0.0-0.8); MONO % 6.8 % (2.0-8.0); NEUTROPHILS # 9.2 10^3/uL (1.5-8.5); NEUTROPHILS % 80.1 % (36.0-66.0); PLATELET COUNT, AUTOMATED 692 10^3/uL (150-450); WHITE BLOOD COUNT 11.5 10^3/uL (4.0-10.0)
[2021-02-08 05:48] LABS: CALCIUM LEVEL 8.1 MG/DL (8.5-10.1); CREATININE FOR GFR 4.64 MG/DL (0.55-1.30); MAGNESIUM LEVEL 2.4 MG/DL (1.8-2.4); POTASSIUM SERUM 4.8 MEQ/L (3.5-5.1)
[2021-02-08] MEDS: LEVEMIR (INSULIN DETEMIR) 1 UNITS/0.01ML SC SCH ×2 (06:09→21:37)
[2021-02-08] MEDS: HumaLOG INSULIN (NovoLOG) PER UNIT SC SCH ×4 (06:10→21:00)
[2021-02-08] MEDS: ASPIRIN 81MG ENTERIC TABLET PO SCH (06:10)
[2021-02-08] MEDS: ISOSORBIDE MON. (IMDUR) 30 MG XR TAB PO SCH (06:11)
--- NOTE | 2021-02-08 10:42 | IPNPDOC ---
Text Note Date of Service The patient was seen on 02/08/21. NOTE Subjective: Patient is a 35-year-old female with a PMHx of Diastolic CHF (EF: 60%) / Pulmonary HTN, HTN, IDDM1, ESRD on HD (MWF), Neuropathy, Retinopathy, with mult iple complications, Hx of Osteomyelitis / Diabetic foot ulcers, Hx of C. diff colitis (12/01/2020), who presented to ER with chest pain, SOB and diarrhea. Patient has had multiple admissions at [facility] for noncompliance with medications. Patient is currently in housing with the [facility]. Patient was seen and examined at the bedside. Patient is sitting up in bed, does not appear to be in any distress, is awake, alert and oriented. Reports that her abdomen feels fine. Denies any chest pain, shortness breath, palpitations. Objective: Vitals (See below) General: Patient sitting up in bed, does not appear to be in any acute distress, awake, alert, oriented to person, place and time HEENT: NC, AT CVS: +S1S2 Lungs: There is fair air entry bilaterally without evidence of wheezing, crackles or rhonchi Abdomen: Abdomen is soft without any patient did distention or tenderness Extremities: No significant denies appreciated Imaging: CXR 01/24: Asymmetric opacities in the left lung suggesting asymmetric pulmonary edema or developing pneumonia. CT angio Chest 01/24: 1. Left greater than right diffuse ground-glass opacities and linear interstitial thickening suggesting pulmonary edema. 2. No other airspace consolidation. 3. Pulmonary embolism. 4. Cardiomegaly. Liver US 01/25: No gallstones, but there is significant diffuse gallbladder wall thickening up to 14 mm. Cholecystitis is not excluded. Mild free fluid around the liver. No biliary dilatation. Mild hepatomegaly. Findings of medical renal disease. MRCP 01/26: Hepatomegaly, diffuse edematous changes in the soft tissues outside the abdomen. Homogeneous low signal intensity throughout the liver. Periportal edema pattern. This is nonspecific and can be seen in hepatitis, CHF, cholangitis, liver and bone marrow transplantation states and blunt trauma. MRCP sequence was of poor uninterpretable quality but bile ducts do not appear dilated based on T2 weighted imaging. Assessment and plan: s/p DKA; IDDM1; poorly controlled - Patient is noncompliant with medications - A1c 10 - s/p Insulin drip - c/w ISS - c/w Levemir at adjusted dose HTN; s/p Hypertensive urgency - Patient is non compliant with medications - BP better controlled this morning; but still elevated - s/p Hydralazine (re: elevated liver enzymes) - c/w isosorbide mononitrate, losartan, amlodipine, clonidine, carvedilol Dyspnea - likely 2/2 fluid overload - Does not appear to have any signs of fluid overload - Continue with strict ins and outs, daily weights, fluid restrictions - c/w diuresis and dialysis as scheduled s/p Chest Pain - EKG negative - Troponin x 3 negative Elevated alkaline phosphatase / Bilirubin - Possibly 2/2 hydralazine-induced hepatitis - Will check liver profile in AM - MEEK, ANCA, and anti-mitochondrial ab have resulted negative. Pt ELIZABETH level elevated at 104. DDx for this include sarcoidosis - Hepatitis panel was negative in 2018; repeat negative - Imaging noted above - s/p Hydralazine - s/p Prednisone - s/p Liver biopsy - awaiting pathology results s/p Diarrhea - c/w Probiotic ESRD on HD (MWF) - Nonfunctioning right arm AV fistula - R PermCath in place - Nephrology on consultation; we appreciate their input Chronic diabetic left foot ulcer - c/w Wound care - Podiatry (Dr. Mondragon) on consult; appreciate their input Anemia likely 2/2 to ESRD - s/p 2 units PRBC - Hg at baseline / will trend Hyponatremia - likely 2/2 hypervolemia - c/w Dialysis as scheduled Anxiety - c/w Hydroxyzine DVT prophylaxis - c/w TEDs/Sequentials Disposition: - Awaiting liver pathology - Has housing established for discharge VS,Fishbone, I+O VS, Fishbone, I+O Laboratory Tests 02/08/21 04:56 Vital Signs Date Time Temp Pulse Resp B/P (MAP) Pulse Ox O2 Delivery O2 Flow Rate FiO2 02/08/21 08:00 99.7 75 18 192/81 (118) 100 Room Air I&O- Last 24 Hours up to 6 AM 02/08/21 05:59 Intake Total 360 ml Output Total 3500 ml Balance -3140 ml JOSE A CONCEPCION MD Feb 08, 2021 10:41
[2021-02-08] MEDS: (RENVELA) SEVELAMER **CARBONate** 800 MG TAB PO SCH ×3 (12:30→18:02)
[2021-02-08] MEDS: hydrOXYzine 25 MG TAB PO SCH ×2 (15:22→21:35)
[2021-02-08] MEDS: cloNIDine 0.1MG TABLET PO SCH ×3 (15:22→21:36)
[2021-02-08] MEDS: LACTOBACILLUS ACIDOPHILUS CAP (BACID) PO SCH ×2 (15:22→18:02)
[2021-02-08] MEDS: CALCITRIOL 0.25 MCG CAP (S0169) PO SCH (15:23)
[2021-02-08] MEDS: PANTOPRAZOLE 40MG TAB (PROTONIX) PO SCH (15:23)
[2021-02-08] MEDS: CARVedilol 12.5 MG TAB PO SCH ×2 (15:23→21:36)
[2021-02-08] MEDS: LOSARTAN 50MG TABLET PO SCH (21:37)
--- NOTE | 2021-02-08 22:32 | IPN ---
NEPHROLOGY PROGRESS NOTE DATE: 02/08/2021 SUBJECTIVE: Patient was seen and examined today morning at the bedside during hemodialysis procedure. She is tolerating the hemodialysis procedure well. She still had elevated blood pressures when I saw her. OBJECTIVE: VITAL SIGNS: Temperature 99.1 degrees Fahrenheit, blood pressure 183/80, pulse 79, respiratory rate 19, saturating 100% on room air. INTAKE/OUTPUT: Urine output is not recorded. Weight in the bed scale is 89.2 kg in the morning when I saw her. PHYSICAL EXAMINATION: GENERAL: Patient is awake, alert, oriented x3, lying in bed, in no apparent distress. HEAD/NECK: Extraocular muscles intact. Pupils equally round and reactive to light. Mucous membranes are moist. Neck is supple. There is no JVD. She has a tunneled hemodialysis catheter. RESPIRATORY: Chest is clear to auscultation bilaterally. Bilateral equal air entry. No rales or rhonchi. CARDIOVASCULAR: S1, S2, regular rate. Trace edema of bilateral lower extremities. ABDOMEN: Soft, positive bowel sounds, nontender. No organomegaly. MUSCULOSKELETAL: She has a dressing on the left foot. 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 Power is 5/5 in all extremities. LAB REVIEW: CBC showed WBC 11.5, hemoglobin 8.4, platelets 692,000. BMP showed sodium 129, potassium 4.8, chloride 94, bicarb 22, BUN 52, creatinine 4.6. Calcium 8.1. Magnesium 2.4. CURRENT INPATIENT MEDICATIONS: Patient's medications were all reviewed by myself. No significant change in the medications today as compared with yesterday. ASSESSMENT AND PLAN: 1. End-stage renal disease: Patient is being dialyzed according to her regular schedule. Ultrafiltration goal will be around 4 liters as tolerated by her blood pressure. 2. Accelerated hypertension: Patient is on multidrug regimen for her high blood pressure. She is on p.r.n. I.V. Labetalol as well. Daily fluid removal is being done to optimize her volume status and blood pressure. If needed, another session of ultrafiltration will be done tomorrow morning as well. 3. Elevated liver enzymes: Hydralazine was stopped initially because of possible association. Liver biopsy was done. Biopsy results are pending. 4. Anemia and end-stage renal disease: Continue Aranesp. Hemoglobin level is stable. 5. Insulin dependent diabetes: Continue Levemir insulin sliding scale. Glucose levels are better controlled now.
[2021-02-09] VITALS: BP 187/81
[2021-02-09 04:00] VITALS: BP 182/76
[2021-02-09] MEDS: SODIUM CHLORIDE 0.9% INJ 10 ML SYR IV SCH ×2 (05:01→18:01)
[2021-02-09 05:20] LABS: BASO # 0.1 10^3/uL (0.0-0.2); BASO % 0.5 % (0.0-1.0); EOS # 0.3 10^3/uL (0.0-0.5); EOS % 2.4 % (0.0-3.0); HEMATOCRIT 26.1 % (36.0-47.0); HEMOGLOBIN 8.4 g/dl (12.0-15.5); LYMPH # 1.6 10^3/uL (1.5-5.0); LYMPH % 11.1 % (24.0-44.0); MEAN CORPUSCULAR HEMOGLOBIN 30.1 pg (27.0-33.0); MEAN CORPUSCULAR HGB CONC 32.2 g/dl (32.0-36.5); MEAN CORPUSCULAR VOLUME 93.5 fl (80.0-96.0); MONO % 7.2 % (2.0-8.0); NEUTROPHILS # 10.8 10^3/uL (1.5-8.5); PLATELET COUNT, AUTOMATED 707 10^3/uL (150-450); RED BLOOD COUNT 2.79 10^6/uL (4.00-5.40)
[2021-02-09 08:00] VITALS: BP 192/82
[2021-02-09 08:22] LABS: ALBUMIN 2.4 GM/DL (3.2-5.2); BILIRUBIN,DIRECT 1.7 MG/DL (0.0-0.2); BILIRUBIN,TOTAL 1.9 MG/DL (0.2-1.0); CALCIUM LEVEL 8.5 MG/DL (8.5-10.1); CREATININE FOR GFR 3.55 MG/DL (0.55-1.30); GLOMERULAR FILTRATION RATE 19.1 (>60); MAGNESIUM LEVEL 2.3 MG/DL (1.8-2.4); POTASSIUM SERUM 4.7 MEQ/L (3.5-5.1); TOTAL PROTEIN 7.4 GM/DL (6.4-8.2)
[2021-02-09] MEDS: ISOSORBIDE MON. (IMDUR) 30 MG XR TAB PO SCH (09:35)
[2021-02-09] MEDS: hydrOXYzine 25 MG TAB PO SCH ×2 (09:35→20:57)
[2021-02-09] MEDS: LACTOBACILLUS ACIDOPHILUS CAP (BACID) PO SCH ×2 (09:35→18:01)
[2021-02-09] MEDS: (RENVELA) SEVELAMER **CARBONate** 800 MG TAB PO SCH ×3 (09:35→18:01)
[2021-02-09] MEDS: ASPIRIN 81MG ENTERIC TABLET PO SCH (09:35)
[2021-02-09] MEDS: CALCITRIOL 0.25 MCG CAP (S0169) PO SCH (09:36)
[2021-02-09] MEDS: CARVedilol 12.5 MG TAB PO SCH ×2 (09:36→20:57)
[2021-02-09] MEDS: cloNIDine 0.1MG TABLET PO SCH ×3 (09:36→20:58)
[2021-02-09] MEDS: HumaLOG INSULIN (NovoLOG) PER UNIT SC SCH ×4 (09:37→20:59)
[2021-02-09] MEDS: LEVEMIR (INSULIN DETEMIR) 1 UNITS/0.01ML SC SCH ×2 (09:37→20:58)
--- NOTE | 2021-02-09 10:01 | IPNPDOC ---
Text Note Date of Service The patient was seen on 02/09/21. NOTE Subjective: Patient is a 35-year-old female with a PMHx of Diastolic CHF (EF: 60%) / Pulmonary HTN, HTN, IDDM1, ESRD on HD (MWF), Neuropathy, Retinopathy, with mul tiple complications, Hx of Osteomyelitis / Diabetic foot ulcers, Hx of C. diff colitis (12/01/2020), who presented to ER with chest pain, SOB and diarrhea. Patient has had multiple admissions at [facility] for noncompliance with medications. Patient is currently in housing with the [facility] social human services assistants. Patient was seen and examined at the bedside. Again patient is sitting up in bed watching television and eating breakfast. She denies any chest pain, shortness of breath or palpitations. Has not experience any nausea, vomiting, abdominal pain or diarrhea. Objective: Vitals (See below) General: Patient sitting up in bed, does not appear to be in any acute distress, awake, alert, oriented to person, place and time HEENT: NC, AT CVS: +S1S2 Lungs: Air entry is fair bilaterally without any appreciated, rhonchi, crackles or wheezing Abdomen: Soft, nondistended, nontender. Dressing from liver biopsy was removed Extremities: Again low extremities do not reveal any significant edema Imaging: CXR 01/24: Asymmetric opacities in the left lung suggesting asymmetric pulmonary edema or developing pneumonia. CT angio Chest 01/24: 1. Left greater than right diffuse ground-glass opacities and linear interstitial thickening suggesting pulmonary edema. 2. No other airspace consolidation. 3. Pulmonary embolism. 4. Cardiomegaly. Liver US 01/25: No gallstones, but there is significant diffuse gallbladder wall thickening up to 14 mm. Cholecystitis is not excluded. Mild free fluid around the liver. No biliary dilatation. Mild hepatomegaly. Findings of medical renal disease. MRCP 01/26: Hepatomegaly, diffuse edematous changes in the soft tissues outside the abdomen. Homogeneous low signal intensity throughout the liver. Periportal edema pattern. This is nonspecific and can be seen in hepatitis, CHF, cholangitis, uyen er and bone marrow transplantation states and blunt trauma. MRCP sequence was of poor uninterpretable quality but bile ducts do not appear dilated based on T2 weighted imaging. Assessment and plan: s/p DKA; IDDM1; poorly controlled - Patient is noncompliant with medications - A1c 10 - s/p Insulin drip - c/w ISS - c/w Levemir at adjusted dose HTN; s/p Hypertensive urgency - Patient is non compliant with medications - BP still remains elevated, but improved - will continue to monitor - s/p Hydralazine (re: elevated liver enzymes) - c/w isosorbide mononitrate, losartan, amlodipine, clonidine, carvedilol Dyspnea - likely 2/2 fluid overload - Does not appear to have any signs of fluid overload - Continue with strict ins and outs, daily weights, fluid restrictions - c/w diuresis and dialysis as scheduled s/p Chest Pain - EKG negative - Troponin x 3 negative Elevated alkaline phosphatase / Bilirubin - Possibly 2/2 hydralazine-induced hepatitis - Liver function continues to improve significantly - MEEK, ANCA, and anti-mitochondrial ab have resulted negative. Pt ELIZABETH level elevated at 104. DDx for this include sarcoidosis - Hepatitis panel was negative in 2019; repeat negative - Imaging noted above - s/p Hydralazine - s/p Prednisone - s/p Liver biopsy - awaiting pathology results s/p Diarrhea - c/w Probiotic ESRD on HD (MWF) - Nonfunctioning right arm AV fistula - R PermCath in place - Nephrology on consultation; we appreciate their input Chronic diabetic left foot ulcer - c/w Wound care - Podiatry (Dr. Mondragon) on consult; appreciate their input Anemia likely 2/2 to ESRD - s/p 2 units PRBC - Hg at baseline / will trend Hyponatremia - likely 2/2 hypervolemia - c/w Dialysis as scheduled Anxiety - c/w Hydroxyzine DVT prophylaxis - c/w TEDs/Sequentials Disposition: - Awaiting liver pathology - Awaiting BP to improve - Has housing established for discharge VS,Fishbone, I+O VS, Fishbone, I+O Laboratory Tests 02/09/21 05:00 Vital Signs Date Time Temp Pulse Resp B/P (MAP) Pulse Ox O2 Delivery O2 Flow Rate FiO2 02/09/21 09:36 67 192/82 02/09/21 08:00 97.4 16 99 Room Air I&O- Last 24 Hours up to 6 AM 02/09/21 06:00 Intake Total 1080 ml Output Total 4000 ml Balance -2920 ml JOSE A CONCEPCION MD Feb 09, 2021 10:01
[2021-02-09] MEDS: IRON SUCROSE 100MG 5ML VIAL (J1756 PER 1MG) IV SCH (12:19)
--- NOTE | 2021-02-09 13:48 | IPN ---
PROGRESS NOTE DATE: 02/09/2021 SUBJECTIVE: The patient was seen and examined at the bedside today morning. During hemodialysis procedure, extra session of hemodialysis was scheduled because of fluid overload and hypertension. She is tolerating the procedure well. OBJECTIVE: Vital signs: Temperature is 97.4 degrees Fahrenheit, blood pressure 192/82, pulse is 67, respiratory rate of 16, saturating 99% on room air. Intake and output: Urine output is not recorded. Ultrafiltration was hemodialysis was 4 liters yesterday. Weight in the bed scale is 86.5 kg. PHYSICAL EXAMINATION: General: The patient is awake, alert and oriented x3, lying in bed getting hemodialysis done. Head and neck examination: Extraocular muscles are intact. Pupils equally round and reactive to light. Neck is supple. She has a tunnel hemodialysis catheter. Cardiovascular: S1, S2 regular rate. Trace edema in the bilateral lower extremities. Respiratory: Chest is clear to auscultation bilaterally. Bilateral good air entry. No rales or rhonchi. Abdomen: Soft, obese, positive bowel sounds. Nontender, no organomegaly. Musculoskeletal: She has a dressing on the left foot. 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 Power is 5/5 in all extremities. LABORATORY REVIEW: Complete blood count (CBC) showed a WBC 14, hemoglobin 8.4, platelets are 707, basic metabolic panel (BMP) showed sodium 134, potassium 4.7, chloride 99, bicarbonate 23, BUN 40, creatinine 3.5. Total bilirubin is 1.9. AST is 53, ALT is 68, alkaline phosphatase is 1,265. CURRENT INPATIENT MEDICATIONS: The patient's medications were all reviewed by myself. There is no significant change in the medications today as compared with yesterday. ASSESSMENT: 1. Accelerated hypertension, despite multiple antihypertensive medications. The patient is getting daily dialysis, 4 liters of fluid was removed yesterday, another 4 liters to 4.5 liters will be removed today. Continue current dose of Coreg, clonidine, amlodipine, losartan and isosorbide. 2. End-stage renal disease. The patient's regular days of dialysis are Thursday, Thursday, Thursday, but she is getting extra session of dialysis today because of elevated blood pressures. 3. Anemia and end-stage renal disease. The patient is getting Venofer and Aranesp with dialysis. 4. Secondary hyperparathyroidism. Continue current dose of calcitriol 0.25 mcg by mouth daily. 5. Elevated liver enzymes. Liver function tests are slowly getting better. Liver biopsy was done, report is still pending.
[2021-02-09 14:35] VITALS: BP 184/76
[2021-02-09 16:00] VITALS: BP 158/70
[2021-02-09 20:00] VITALS: BP 146/71
[2021-02-09] MEDS: LOSARTAN 50MG TABLET PO SCH (20:57)
[2021-02-10] VITALS (7 sets, daily range): BP systolic 140–198; BP diastolic 66–88
[2021-02-10] MEDS: SODIUM CHLORIDE 0.9% INJ 10 ML SYR IV SCH ×2 (05:02→17:58)
[2021-02-10 05:17] LABS: BASO # 0.1 10^3/uL (0.0-0.2); BASO % 0.6 % (0.0-1.0); EOS # 0.3 10^3/uL (0.0-0.5); HEMATOCRIT 26.9 % (36.0-47.0); HEMOGLOBIN 8.4 g/dl (12.0-15.5); LYMPH # 1.4 10^3/uL (1.5-5.0); LYMPH % 12.1 % (24.0-44.0); MEAN CORPUSCULAR HEMOGLOBIN 29.7 pg (27.0-33.0); MEAN CORPUSCULAR HGB CONC 31.2 g/dl (32.0-36.5); MEAN CORPUSCULAR VOLUME 95.1 fl (80.0-96.0); MONO # 0.8 10^3/uL (0.0-0.8); MONO % 7.3 % (2.0-8.0); NEUTROPHILS # 8.7 10^3/uL (1.5-8.5); NEUTROPHILS % 75.3 % (36.0-66.0); PLATELET COUNT, AUTOMATED 718 10^3/uL (150-450); RED BLOOD COUNT 2.83 10^6/uL (4.00-5.40); WHITE BLOOD COUNT 11.5 10^3/uL (4.0-10.0)
[2021-02-10 06:33] LABS: ALBUMIN 2.3 GM/DL (3.2-5.2); BILIRUBIN,DIRECT 1.4 MG/DL (0.0-0.2); BILIRUBIN,TOTAL 1.7 MG/DL (0.2-1.0); CALCIUM LEVEL 8.1 MG/DL (8.5-10.1); CREATININE FOR GFR 3.17 MG/DL (0.55-1.30); GLOMERULAR FILTRATION RATE 21.8 (>60); MAGNESIUM LEVEL 2.2 MG/DL (1.8-2.4); POTASSIUM SERUM 4.6 MEQ/L (3.5-5.1); TOTAL PROTEIN 7.2 GM/DL (6.4-8.2)
[2021-02-10] MEDS: CARVedilol 12.5 MG TAB PO SCH ×2 (08:09→20:46)
[2021-02-10] MEDS: ISOSORBIDE MON. (IMDUR) 30 MG XR TAB PO SCH (08:09)
[2021-02-10] MEDS: hydrOXYzine 25 MG TAB PO SCH ×2 (08:09→20:46)
[2021-02-10] MEDS: cloNIDine 0.1MG TABLET PO SCH ×3 (08:09→20:45)
[2021-02-10] MEDS: ASPIRIN 81MG ENTERIC TABLET PO SCH (08:09)
[2021-02-10] MEDS: HumaLOG INSULIN (NovoLOG) PER UNIT SC SCH ×4 (08:10→20:48)
[2021-02-10] MEDS: (RENVELA) SEVELAMER **CARBONate** 800 MG TAB PO SCH ×3 (08:10→17:57)
[2021-02-10] MEDS: LACTOBACILLUS ACIDOPHILUS CAP (BACID) PO SCH ×2 (08:10→17:57)
[2021-02-10] MEDS: CALCITRIOL 0.25 MCG CAP (S0169) PO SCH (08:10)
[2021-02-10] MEDS: LEVEMIR (INSULIN DETEMIR) 1 UNITS/0.01ML SC SCH ×2 (08:10→20:47)
--- NOTE | 2021-02-10 09:44 | IPNPDOC ---
Text Note Date of Service The patient was seen on 02/10/21. NOTE Subjective: Patient is a 35-year-old female with a PMHx of Diastolic CHF (EF: 60%) / Pulmonary HTN, HTN, IDDM1, ESRD on HD (MWF), Neuropathy, Retinopathy, with mul tiple complications, Hx of Osteomyelitis / Diabetic foot ulcers, Hx of C. diff colitis (12/01/2020), who presented to ER with chest pain, SOB and diarrhea. Patient has had multiple admissions at [facility] for noncompliance with medications. Patient is currently in housing with the [facility] psychiatric social worker supervisor. Patient was seen and examined at the bedside. She is seen sitting up in bed watching television, does not appear to be in any distress was that she has had an uneventful evening denies any chest pain, short of breath, palpitations, nausea, vomiting, abdominal pain or diarrhea. Objective: Vitals (See below) General: Sitting up in bed watching television, appears comfortable, awake, alert and oriented 3 HEENT: NC, AT CVS: +S1S2 Lungs: There does not appear to be any auscultated rhonchi, crackles or wheezing Abdomen: Soft, nondistended, nontender Extremities: Lower extremities do not reveal any significant edema; left foot with dressing in place Imaging: CXR 01/24: Asymmetric opacities in the left lung suggesting asymmetric pulmonary edema or developing pneumonia. CT angio Chest 01/24: 1. Left greater than right diffuse ground-glass opacities and linear interstitial thickening suggesting pulmonary edema. 2. No other airspace consolidation. 3. Pulmonary embolism. 4. Cardiomegaly. Liver US 01/25: No gallstones, but there is significant diffuse gallbladder wall thickening up to 14 mm. Cholecystitis is not excluded. Mild free fluid around the liver. No biliary dilatation. Mild hepatomegaly. Findings of medical renal disease. MRCP 01/26: Hepatomegaly, diffuse edematous changes in the soft tissues outside the abdomen. Homogeneous low signal intensity throughout the liver. Periportal edema pattern. This is nonspecific and can be seen in hepatitis, CHF, cholangitis, liver and bone marrow transplantation states and blunt trauma. MRCP sequence was of poor uninterpretable quality but bile ducts do not appear dilated based on T2 weighted imaging. Assessment and plan: s/p DKA; IDDM1; poorly controlled with hyperglycemia / hypoglycemia - Patient is noncompliant with medications - A1c 10 - s/p Insulin drip - c/w ISS - c/w Levemir at adjusted dose HTN; s/p Hypertensive urgency - Patient is non compliant with medications - BP yesterday was within normal range; will continue with current regimen - s/p Hydralazine (re: elevated liver enzymes) - c/w isosorbide mononitrate, losartan, amlodipine, clonidine, carvedilol Dyspnea - likely 2/2 fluid overload - Does not appear to have any signs of fluid overload - c/w strict ins and outs, daily weights, fluid restrictions - c/w dialysis as scheduled s/p Chest Pain - EKG negative - Troponin x 3 negative Elevated alkaline phosphatase / Bilirubin - Possibly 2/2 hydralazine-induced hepatitis - Liver function continues to improve significantly - MEEK, ANCA, and anti-mitochondrial ab have resulted negative. Pt ELIZABETH level elevated at 104. DDx for this include sarcoidosis - Hepatitis panel was negative in 2019; repeat negative - Imaging noted above - s/p Hydralazine - s/p Prednisone - s/p Liver biopsy - awaiting pathology results s/p Diarrhea - c/w Probiotic ESRD on HD (MWF) - Nonfunctioning right arm AV fistula - R PermCath in place - Nephrology on consultation; we appreciate their input Chronic diabetic left foot ulcer - c/w Wound care - Podiatry (Dr. Mondragon) on consult; appreciate their input Anemia likely 2/2 to ESRD - s/p 2 units PRBC - Hg at baseline / will trend Hyponatremia - likely 2/2 hypervolemia - c/w Dialysis as scheduled Anxiety - c/w Hydroxyzine DVT prophylaxis - c/w TEDs/Sequentials Disposition: - Awaiting liver pathology - BP appears to be well controlled - Has housing established for discharge - Anticipate discharge for tomorrow VS,Fishbone, I+O VS, Fishbone, I+O Laboratory Tests 02/10/21 05:02 Vital Signs Date Time Temp Pulse Resp B/P (MAP) Pulse Ox O2 Delivery O2 Flow Rate FiO2 02/10/21 08:09 68 198/88 02/10/21 07:34 97.6 18 97 Room Air I&O- Last 24 Hours up to 6 AM 02/10/21 06:00 Intake Total 840 ml Output Total 3500 ml Balance -2660 ml JOSE A CONCEPCION MD Feb 10, 2021 09:44
[2021-02-10] MEDS: LOSARTAN 50MG TABLET PO SCH (20:46)
--- NOTE | 2021-02-10 21:23 | IPN ---
NEPHROLOGY PROGRESS NOTE DATE: 02/10/2021 SUBJECTIVE: The patient was seen and examined at the bedside today morning. She is afebrile, hemodynamically stable. She was dialyzed yesterday. Hemodialysis procedure went well. She tolerated it well. Blood pressures are slightly better controlled today as compared with yesterday. OBJECTIVE: VITAL SIGNS: Temperature is 96.3 degrees Fahrenheit, blood pressure 142/78, pulse is 67, respiratory rate of 18, saturating 99% on room air. INTAKE AND OUTPUT: There is no urine output recorded. Ultrafiltration with hemodialysis was 3.5 liters. Weight in the bed scale is 85.4 kg. PHYSICAL EXAMINATION: GENERAL APPEARANCE: The patient is awake, alert, oriented x3, laying in bed in no apparent distress. HEAD AND NECK: Extraocular muscles intact. Pupils are equally round and reactive to light. Mucous membranes are moist. Neck is supple. She has a tunneled hemodialysis catheter. CARDIOVASCULAR: S1, S2, regular rate. EXTREMITIES: No edema of the bilateral lower extremities. RESPIRATORY: Chest is clear to auscultation bilaterally. Bilaterally currently no rales or rhonchi. ABDOMEN: Soft, positive bowel sounds, nontender, no organomegaly. MUSCULOSKELETAL: No clubbing, no cyanosis. Left foot dressing is noted. LAB REVIEW: CBC showed a white blood cell count of 11.5, hemoglobin 8.4, platelet count 718. BMP showed sodium of 136, potassium 4.6, chloride 103, bicarbonate 23, BUN is 32, creatinine is 3.1. Total bilirubin 1.7, AST 61, ALT 67, alkaline phosphatase is 1,182. CURRENT INPATIENT MEDICATIONS: The patient's medications were all reviewed by myself. There is no significant change in the medications today as compared with yesterday. ASSESSMENT AND PLAN: 1. End-stage renal disease - The patient is getting almost daily hemodialysis or ultrafiltration because of volume overload. Next dialysis will be done tomorrow morning. Ultrafiltration goal will be 4 liters. 2. Anemia and end-stage renal disease - hemoglobin is low but stable. Continue current dose of Aranesp and Venofer with dialysis. 3. Persistent uncontrolled hypertension - The patient is requiring multiple medications including Amlodipine, Coreg, Clonidine, Isosorbide and Losartan. Continue current regimen. Volume status is being optimized with daily hemodialysis. 4. Secondary hyperparathyroidism - continue current dose of Calcitriol at 0.25 mcg p.o. daily. 5. Chronic kidney disease, mineral bone disease - continue current dose of Renvela with meals. Phosphorous level is within the acceptable range. 6. Elevated liver enzymes the patient's LFTs are slowly improving. Liver biopsies are still pending. Hydralazine was held about a week ago for possible association with hepatitis.
[2021-02-10] MEDS: LABETALOL 100MG/20ML VIAL IV PRN (23:52)
[2021-02-11] VITALS (9 sets, daily range): BP systolic 154–198; BP diastolic 81–96
[2021-02-11] MEDS: SODIUM CHLORIDE 0.9% INJ 10 ML SYR IV SCH ×2 (05:44→18:14)
[2021-02-11] MEDS: LABETALOL 100MG/20ML VIAL IV PRN (05:46)
[2021-02-11 05:57] LABS: BASO # 0.1 10^3/uL (0.0-0.2); BASO % 0.7 % (0.0-1.0); EOS # 0.4 10^3/uL (0.0-0.5); EOS % 3.2 % (0.0-3.0); HEMATOCRIT 26.9 % (36.0-47.0); HEMOGLOBIN 8.5 g/dl (12.0-15.5); LYMPH # 1.3 10^3/uL (1.5-5.0); LYMPH % 11.1 % (24.0-44.0); MEAN CORPUSCULAR HEMOGLOBIN 30.1 pg (27.0-33.0); MEAN CORPUSCULAR HGB CONC 31.6 g/dl (32.0-36.5); MEAN CORPUSCULAR VOLUME 95.4 fl (80.0-96.0); MONO # 0.8 10^3/uL (0.0-0.8); MONO % 7.3 % (2.0-8.0); NEUTROPHILS # 8.7 10^3/uL (1.5-8.5); PLATELET COUNT, AUTOMATED 684 10^3/uL (150-450); RED BLOOD COUNT 2.82 10^6/uL (4.00-5.40); WHITE BLOOD COUNT 11.4 10^3/uL (4.0-10.0)
[2021-02-11] MEDS: ISOSORBIDE MON. (IMDUR) 30 MG XR TAB PO SCH (06:47)
[2021-02-11] MEDS: CALCITRIOL 0.25 MCG CAP (S0169) PO SCH (06:47)
[2021-02-11] MEDS: ASPIRIN 81MG ENTERIC TABLET PO SCH (06:48)
[2021-02-11] MEDS: CARVedilol 12.5 MG TAB PO SCH ×2 (06:48→21:40)
[2021-02-11] MEDS: (RENVELA) SEVELAMER **CARBONate** 800 MG TAB PO SCH ×3 (06:48→18:14)
[2021-02-11] MEDS: cloNIDine 0.1MG TABLET PO SCH ×3 (06:48→21:39)
[2021-02-11] MEDS: LACTOBACILLUS ACIDOPHILUS CAP (BACID) PO SCH ×2 (06:48→18:14)
[2021-02-11] MEDS: hydrOXYzine 25 MG TAB PO SCH ×2 (06:49→21:40)
[2021-02-11 07:03] LABS: ALBUMIN 2.5 GM/DL (3.2-5.2); ALT/SGPT 81 U/L (12-78); BILIRUBIN,DIRECT 1.6 MG/DL (0.0-0.2); BILIRUBIN,TOTAL 1.8 MG/DL (0.2-1.0); BLOOD UREA NITROGEN 54 MG/DL (7-18); CALCIUM LEVEL 8.5 MG/DL (8.5-10.1); CARBON DIOXIDE LEVEL 21 MEQ/L (21-32); CHLORIDE LEVEL 99 MEQ/L (98-107); CREATININE FOR GFR 4.58 MG/DL (0.55-1.30); GLOMERULAR FILTRATION RATE 14.2 (>60); GLUCOSE, FASTING 305 MG/DL (70-100); MAGNESIUM LEVEL 2.4 MG/DL (1.8-2.4); POTASSIUM SERUM 5.3 MEQ/L (3.5-5.1); SODIUM LEVEL 133 MEQ/L (136-145); TOTAL PROTEIN 7.6 GM/DL (6.4-8.2)
[2021-02-11] MEDS: LEVEMIR (INSULIN DETEMIR) 1 UNITS/0.01ML SC SCH ×2 (07:21→21:41)
[2021-02-11] MEDS: HumaLOG INSULIN (NovoLOG) PER UNIT SC SCH ×4 (07:21→21:00)
--- NOTE | 2021-02-11 09:41 | IPNPDOC ---
Text Note Date of Service The patient was seen on 02/11/21. NOTE Subjective: Patient is a 35-year-old female with a PMHx of Diastolic CHF (EF: 60%) / Pulmonary HTN, HTN, IDDM1, ESRD on HD (MWF), Neuropathy, Retinopathy, with mul tiple complications, Hx of Osteomyelitis / Diabetic foot ulcers, Hx of C. diff colitis (12/01/2020), who presented to ER with chest pain, SOB and diarrhea. Patient has had multiple admissions at [facility] for noncompliance with medications. Patient is currently in housing with the [facility] dialysis social worker. Patient was seen and examined at the bedside. Patient is up, watching television completing her breakfast tray. Denies any chest pain, shortness breath, palpitations. Denies any abdominal pain or diarrhea. Has not experience any nausea or vomiting. Ports that her left foot appears to be malodorous. Objective: Vitals (See below) General: Sitting up in bed, appears to be comfortable, is awake, alert, oriented to person, place, not HEENT: NC, AT CVS: +S1S2 Lungs: Air entry is fair bilaterally without any evidence of wheezing, rhonchi Abdomen: Abdomen remains completely soft, without any appreciated tenderness or distention Extremities: Left foot with dressing in place. No significant edema Imaging: CXR 01/24: Asymmetric opacities in the left lung suggesting asymmetric pulmonary edema or developing pneumonia. CT angio Chest 01/24: 1. Left greater than right diffuse ground-glass opacities and linear interstitial thickening suggesting pulmonary edema. 2. No other airspace consolidation. 3. Pulmonary embolism. 4. Cardiomegaly. Liver US 01/25: No gallstones, but there is significant diffuse gallbladder wall thickening up to 14 mm. Cholecystitis is not excluded. Mild free fluid around the liver. No biliary dilatation. Mild hepatomegaly. Findings of medical renal disease. MRCP 01/26: Hepatomegaly, diffuse edematous changes in the soft tissues outside the abdomen. Homogeneous low signal intensity throughout the liver. Periportal edema pattern. This is nonspecific and can be seen in hepatitis, CHF, cholangitis, liver and bone marrow transplantation states and blunt trauma. MRCP sequence was of poor uninterpretable quality but bile ducts do not appear dilated based on T2 weighted imaging. Assessment and plan: s/p DKA; IDDM1; poorly controlled with hyperglycemia / hypoglycemia - Patient is noncompliant with medications - A1c 10 - s/p Insulin drip - c/w ISS - c/w Levemir at adjusted dose HTN; s/p Hypertensive urgency - Patient is non compliant with medications - BP has been well controlled at this point with current regimen - s/p Hydralazine (re: elevated liver enzymes) - c/w isosorbide mononitrate, losartan, amlodipine, clonidine, carvedilol s/p Dyspnea - likely 2/2 fluid overload - Does not appear to have any signs of fluid overload - c/w strict ins and outs, daily weights, fluid restrictions - c/w dialysis as scheduled s/p Chest Pain - EKG negative - Troponin x 3 negative Elevated alkaline phosphatase / Bilirubin - Possibly 2/2 hydralazine-induced hepatitis - Liver function continues to improve significantly - MEEK, ANCA, and anti-mitochondrial ab have resulted negative. Pt ELIZABETH level elevated at 104. DDx for this include sarcoidosis - Hepatitis panel was negative in 2019; repeat negative - Imaging noted above - s/p Hydralazine - s/p Prednisone - s/p Liver biopsy - awaiting pathology results s/p Diarrhea - c/w Probiotic ESRD on HD (MWF) - Nonfunctioning right arm AV fistula - R PermCath in place - Nephrology on consultation; we appreciate their input Chronic diabetic left foot ulcer - Will check CRP / Gram stain - c/w Wound care - Podiatry (Dr. Mondragon) on consult; appreciate their input Anemia likely 2/2 to ESRD - s/p 2 units PRBC - Hg at baseline / will trend Hyponatremia - likely 2/2 hypervolemia - c/w Dialysis as scheduled Anxiety - c/w Hydroxyzine DVT prophylaxis - c/w TEDs/Sequentials Disposition: - Awaiting liver pathology - Will re-evaluate L foot - BP improved - Has housing established for discharge VS,Kiana, I+O VS, Kiana, I+O Laboratory Tests 02/11/21 05:38 Vital Signs Date Time Temp Pulse Resp B/P (MAP) Pulse Ox O2 Delivery O2 Flow Rate FiO2 02/11/21 07:37 98.0 70 18 162/84 (110) 97 Room Air I&O- Last 24 Hours up to 6 AM 02/11/21 06:00 Intake Total 840 ml Output Total 0 ml Balance 840 ml JOSE A CONCEPCION MD Feb 11, 2021 09:40
[2021-02-11 10:50] LABS: C REACTIVE PROTEIN QUANTITATIV 4.03 MG/DL (0.00-0.30)
[2021-02-11] MEDS: IRON SUCROSE 100MG 5ML VIAL (J1756 PER 1MG) IV SCH (11:30)
[2021-02-11 11:50] LABS: HIV 1&2 SCREEN CENTAUR NEGATIVE (NEGATIVE)
--- NOTE | 2021-02-11 21:01 | CR ---
CONSULTATION DATE: 02/11/2021 REASON FOR CONSULTATION: Foot ulceration. HISTORY OF PRESENT ILLNESS: Narcisa Mireles is a patient well-known to me who had recently been treated for left foot osteomyelitis. Since her discharge at that time, she has been intermit being able to make appointments to myself and the wound care center due to hospital readmission. She has not had wound debrided in approximately three weeks. She states the wound has not been dressed regularly since she has been admitted recently. I was asked in consultation to reevaluate the wound. PAST MEDICAL HISTORY: Significant for: 1. Diabetes with neuropathy. 2. End-stage renal disease on hemodialysis Thursday, Thursday, Thursday. 3. Pulmonary hypertension. 4. Trace mitral valve regurgitation (MVR), trace aortic valve regurgitation (AVR) trace tricuspid valve regurgitation (TVR). 5. Chronic thrombocytosis. 6. Hypertension. PAST SURGICAL HISTORY: Includes: 1. Bilateral fifth metatarsal head excision. 2. Brain surgery for cyst. SOCIAL HISTORY: Denies smoking. Denies alcohol. ALLERGIES: TAPE, LATEX, MORPHINE, PEANUTS. REVIEW OF SYSTEMS: No recent nausea, vomiting, fever or chills. VITAL SIGNS: Reviewed. She has remained afebrile for the last several days. LABORATORY DATA: Labs are reviewed. White blood cell count today is 11.4. PHYSICAL EXAMINATION: LOWER EXTREMITY EXAMINATION: On the left foot, there is some nonviable tissue within the plantar wound. Fifth toe has some capillary refill, signs of viability. No significant erythema or purulence is noted. ASSESSMENT: This is a 35-year-old diabetic female with left foot ulceration. TREATMENT: Excisional wound debridement was performed using a dermal curette including subcutaneous tissue at bedside. Wound care orders are written to be performed daily. Patient should have followup with Dr. Espinosa and myself once discharged.
--- NOTE | 2021-02-11 21:13 | IPN ---
NEPHROLOGY PROGRESS NOTE DATE: 02/11/2021 SUBJECTIVE: The patient was seen and examined this afternoon in the hemodynamically unit, receiving her treatment. She denies any new complaints. No shortness of breath, no chest pain, no palpitations. Someone from podiatry office apparently came and changed her left foot dressings today and the patient complains of malodor. OBJECTIVE: PHYSICAL EXAMINATION: VITAL SIGNS: Temperature 98.8, pulse 78, respiratory rate 18, blood pressure 154/94, saturating 100% on room air. INTAKE AND OUTPUT: Intake yesterday was 840. Dialysis today removed 4 liters. Weight in the bed scale today is 88.6 kg. GENERAL APPEARANCE: The patient is seen lying in bed in the hemodialysis unit receiving her treatment, awake, alert, oriented and in no apparent distress. HEENT: The extraocular muscles are intact. Pupils are round and reactive to light. Mucous membranes are moist. NECK: Supple. She has a tunneled hemodialysis catheter which is presently in use. HEART: Regular, S1, S2. EXTREMITIES: Trace leg edema bilaterally. RESPIRATORY: Lungs are clear to auscultation bilaterally. No rales or rhonchus. ABDOMEN: Soft and nontender. There are bowel sounds. MUSCULOSKELETAL: The left foot had a clean new dressing on it. NEUROLOGICAL: She is oriented x3 and at baseline mentation. LABORATORY STUDIES: Today white count of 11.4, hemoglobin 8.5, platelet count 684. Sodium 133, potassium 5.3, alkaline phosphatase is 1,400. INPATIENT MEDICATIONS: I added Minoxidil 2.5 mg p.o. twice daily. Her remainder medications are unchanged as compared to the past few days. PROBLEMS: 1. End-stage renal disease on hemodialysis on a Thursday, Thursday, Thursday schedule - The patient is being dialyzed today with 4 liters of fluid removed. She was dialyzed daily from February 04 to February 09 but the patient still has some signs of fluid overload and I will try to arrange for extra dialysis treatment this week as well, and I advised her to be compliant with fluid restriction of 1.8 liters. 2. Hypertension, uncontrolled, status post hypertensive urgency - The patient is presently on Losartan, Amlodipine, Carvedilol, Clonidine, Imdur, and her blood pressures are still poorly controlled. She was also dialyzed aggressively last week with aggressive fluid removal. I am also adding Minoxidil today. She is not following the renal diet nor fluid restriction. 3. Anemia of chronic renal failure - hemoglobin is suboptimal and she continues on Aranesp and iron with dialysis. There is no need for transfusion at present. 4. Transaminitis with elevated alkaline phosphatase her liver biopsy results are pending. I suggest to get a formal GI evaluation given that her alkaline phosphatase remains persistently above 1,000. 5. Poorly controlled type 1 insulin dependent diabetic most recent A1c was 10.3% (and this is with her recent blood transfusions which can falsely lower the A1c). The patient is chronically poorly controlled and insulin is managed as per primary service.
[2021-02-11] MEDS: minoxidiL 2.5 MG TAB PO SCH (21:40)
[2021-02-11] MEDS: LOSARTAN 50MG TABLET PO SCH (21:40)
[2021-02-12] VITALS (8 sets, daily range): BP systolic 142–197; BP diastolic 67–88
[2021-02-12] MEDS: SODIUM CHLORIDE 0.9% INJ 10 ML SYR IV SCH ×2 (05:31→18:05)
[2021-02-12 06:41] LABS: BASO # 0.1 10^3/uL (0.0-0.2); BASO % 0.5 % (0.0-1.0); EOS # 0.3 10^3/uL (0.0-0.5); EOS % 2.4 % (0.0-3.0); HEMATOCRIT 29.8 % (36.0-47.0); HEMOGLOBIN 9.3 g/dl (12.0-15.5); LYMPH # 1.3 10^3/uL (1.5-5.0); LYMPH % 11.6 % (24.0-44.0); MEAN CORPUSCULAR HEMOGLOBIN 29.8 pg (27.0-33.0); MEAN CORPUSCULAR HGB CONC 31.2 g/dl (32.0-36.5); MEAN CORPUSCULAR VOLUME 95.5 fl (80.0-96.0); MONO # 0.8 10^3/uL (0.0-0.8); MONO % 7.6 % (2.0-8.0); NEUTROPHILS # 8.4 10^3/uL (1.5-8.5); NEUTROPHILS % 76.4 % (36.0-66.0); PLATELET COUNT, AUTOMATED 618 10^3/uL (150-450); RED BLOOD COUNT 3.12 10^6/uL (4.00-5.40)
[2021-02-12 06:57] LABS: CALCIUM LEVEL 8.7 MG/DL (8.5-10.1); CREATININE FOR GFR 3.8 MG/DL (0.55-1.30); GLOMERULAR FILTRATION RATE 17.6 (>60); MAGNESIUM LEVEL 2.2 MG/DL (1.8-2.4); POTASSIUM SERUM 4.7 MEQ/L (3.5-5.1)
[2021-02-12 07:14] LABS: ALBUMIN 2.4 GM/DL (3.2-5.2); BILIRUBIN,DIRECT 1.2 MG/DL (0.0-0.2); BILIRUBIN,TOTAL 1.6 MG/DL (0.2-1.0); TOTAL PROTEIN 8.2 GM/DL (6.4-8.2)
[2021-02-12] MEDS: HumaLOG INSULIN (NovoLOG) PER UNIT SC SCH ×4 (07:30→21:00)
[2021-02-12] MEDS: hydrOXYzine 25 MG TAB PO SCH ×2 (08:44→21:01)
[2021-02-12] MEDS: (RENVELA) SEVELAMER **CARBONate** 800 MG TAB PO SCH ×3 (08:44→18:05)
[2021-02-12] MEDS: ASPIRIN 81MG ENTERIC TABLET PO SCH (08:44)
[2021-02-12] MEDS: CALCITRIOL 0.25 MCG CAP (S0169) PO SCH (08:44)
[2021-02-12] MEDS: LACTOBACILLUS ACIDOPHILUS CAP (BACID) PO SCH ×2 (08:45→18:05)
[2021-02-12] MEDS: minoxidiL 2.5 MG TAB PO SCH ×2 (08:45→21:01)
[2021-02-12] MEDS: CARVedilol 12.5 MG TAB PO SCH ×2 (08:46→21:01)
[2021-02-12] MEDS: ISOSORBIDE MON. (IMDUR) 30 MG XR TAB PO SCH (08:46)
[2021-02-12] MEDS: cloNIDine 0.1MG TABLET PO SCH ×3 (08:46→21:00)
[2021-02-12] MEDS: LEVEMIR (INSULIN DETEMIR) 1 UNITS/0.01ML SC SCH ×2 (08:46→21:02)
--- NOTE | 2021-02-12 09:29 | IPNPDOC ---
Text Note Date of Service The patient was seen on 02/12/21. NOTE Subjective: Patient is a 35-year-old female with a PMHx of Diastolic CHF (EF: 60%) / Pulmonary HTN, HTN, IDDM1, ESRD on HD (MWF), Neuropathy, Retinopathy, with mul tiple complications, Hx of Osteomyelitis / Diabetic foot ulcers, Hx of C. diff colitis (12/01/2020), who presented to ER with chest pain, SOB and diarrhea. Patient has had multiple admissions at [facility] for noncompliance with medications. Patient is currently in housing with the [facility] social [facility]. Patient was seen and examined at the bedside. Patient is up, watching television completing her breakfast tray. Denies any chest pain, shortness breath, palpitations. Denies any abdominal pain or diarrhea. Has not experience any nausea or vomiting. Ports that her left foot appears to be malodorous. Objective: Vitals (See below) General: Sitting up in bed, appears to be comfortable, is awake, alert, oriented to person, place, not HEENT: NC, AT CVS: +S1S2 Lungs: Air entry is fair bilaterally without any evidence of wheezing, rhonchi Abdomen: Abdomen remains completely soft, without any appreciated tenderness or distention Extremities: Left foot with dressing in place. No significant edema Assessment and plan: s/p DKA; IDDM1; poorly controlled with hyperglycemia / hypoglycemia - Patient is noncompliant with medications - A1c 10 - s/p Insulin drip - c/w ISS - c/w Levemir at adjusted dose HTN; s/p Hypertensive urgency - Patient is non compliant with medications - BP has been well controlled at this point with current regimen - s/p Hydralazine (re: elevated liver enzymes) - c/w isosorbide mononitrate, losartan, amlodipine, clonidine, carvedilol s/p Dyspnea - likely 2/2 fluid overload - Does not appear to have any signs of fluid overload - c/w strict ins and outs, daily weights, fluid restrictions - c/w dialysis as scheduled s/p Chest Pain - EKG negative - Troponin x 3 negative Elevated alkaline phosphatase / Bilirubin - Possibly 2/2 hydralazine-induced hepatitis - Liver function continues to improve significantly - MEEK, ANCA, and anti-mitochondrial ab have resulted negative. Pt ELIZABETH level elevated at 104. DDx for this include sarcoidosis - Hepatitis panel was negative in 2019; repeat negative - Imaging noted above - s/p Hydralazine - s/p Prednisone - s/p Liver biopsy - awaiting pathology results s/p Diarrhea - c/w Probiotic ESRD on HD (MWF) - Nonfunctioning right arm AV fistula - R PermCath in place - Nephrology on consultation; we appreciate their input Chronic diabetic left foot ulcer - Will check CRP / Gram stain - c/w Wound care - Podiatry (Dr. Mondragon) on consult; appreciate their input Anemia likely 2/2 to ESRD - s/p 2 units PRBC - Hg at baseline / will trend Hyponatremia - likely 2/2 hypervolemia - c/w Dialysis as scheduled Anxiety - c/w Hydroxyzine DVT prophylaxis - c/w TEDs/Sequentials Disposition: - Awaiting liver pathology - Will re-evaluate L foot - pending follow up from podiatry - BP improved - Has housing established for discharge VS,Elliotbone, I+O VS, Fishbone, I+O Laboratory Tests 02/12/21 05:40 Vital Signs Date Time Temp Pulse Resp B/P (MAP) Pulse Ox O2 Delivery O2 Flow Rate FiO2 02/12/21 08:45 142/88 02/12/21 08:45 72 02/12/21 07:17 98.4 18 98 Room Air I&O- Last 24 Hours up to 6 AM 02/12/21 06:00 Intake Total 480 ml Output Total 4000 ml Balance -3520 ml KERMIT LARIOS MD Feb 12, 2021 09:29
--- NOTE | 2021-02-12 16:39 | IPNPDOC ---
Subjective General Date/Time Seen The patient was seen on 02/12/21 at 16:18. Subject Chief Complaint/History The patient is a 35-year-old female admitted with a reason for visit of Fluid Overload. WILL Brewster was seen and examined at the bedside this morning. She states she is quite stressed due to family stress. She is frustrated with being hospitalized for this prolonged period of time and wishes to go home. She underwent HD yesterday with 4L removed and tolerated it well. Her BPs have been better contro lled. She is also being seen by podiatry for her foot. She has no other complaints. No issues reported overnight. OBJECTIVE VITAL SIGNS: see below GENERAL: sitting at the bedside, alert and oriented, in no apparent distress, pleasant and conversant in full sentences. HEENT: PERRL, EOMI, Oral mucous membranes are moist without lesions. NECK: The patient has no noted JVD.Tunneled dialysis catheter present. No adenopathy is appreciated. No thyromegaly CHEST/LUNGS: Lungs are clear bilaterally without rhonchi, rales, or wheezes. There is no subcutaneous air appreciated. There is no tenderness to the chest wall. HEART:Regular rate and rhythm. No murmurs, rubs, or gallops are appreciated. Distal pulses are 2+. No carotid bruits appreciated. ABDOMEN: Soft, nontender, and nondistended. Bowel sounds are positive. No organomegaly is appreciated. No masses are appreciated. There are no peritoneal signs. There is no Dalzell sign. EXTREMITIES: Trace bilateral peripheral edema. There is no focal long bone tenderness or deformity. SKIN: The patients skin is warm and dry, without rashes or lesions. PSYCHIATRIC: AAO x 3, normal mood/affect NEUROLOGIC: No obvious focal deficits IMAGING No new imaging LABS See below ASSESSMENT This is a 35 YO F with history of ESRD on HD, DM1 who presented with anasarca in setting of noncompliance with HD found also to have transaminitis with increasing alkaline phosphotase s/p liver biopsy. PLAN 1. ESRD on HD: -HD yesterday, 4L removed -Plan for additional HD tomorrow -Continue strict fluid restriction 2. HTN: -BP controlled today, 144/88 -Continue Losartan, Amlodipine, Coreg, Clonidine, Imdur, Minoxidil 3. Anemia of CKD: -Hgb today 9.3, stable -Continue Aranesp with HD 4. Transaminitis: worse today, I called and spoke with pathologist Dr. Fair who reports preliminary read of liver biospy showing sinusoidal dilatation, edema of the liver parenchyma suggesting congestive hepatopathy. She suggested ordering iron studies to rule out hemachromatosis -Liver biopsy sent to [facility] for 2nd pathologist opinion, results likely will return Thursday 5. DM1, poorly controlled: -Insulin per hospitalist management DISPO: Additional HD tomorrow as patient is still hypervolemic, pending liver biopsy results, podiatry consult for foot Current Medications Current Medications Current Medications Medications (Trade) Dose Ordered Sig/Makenzie Route PRN Reason Start Time Stop Time Status Last Admin Dose Admin Acetaminophen (Tylenol Tab) 650 mg Q4H PRN PO PAIN OR FEVER 01/25/21 00:40 01/31/21 11:25 DC 01/31/21 05:04 Al Hydrox/Mg Hydrox/Simethicone (Mylanta) 30 ml DAILY PRN PO DYSPEPSIA 01/25/21 00:40 Amlodipine Besylate (Norvasc) 10 mg DAILY PO 01/25/21 09:00 02/04/21 06:43 DC 02/03/21 09:03 Amlodipine Besylate (Norvasc) 10 mg DAILY PO 02/04/21 07:15 02/12/21 08:45 Aspirin (Ecotrin) 81 mg DAILY PO 01/25/21 09:00 02/12/21 08:44 Calcitriol (Rocaltrol) 0.25 mcg DAILY PO 01/25/21 09:00 02/12/21 08:44 Carvedilol (COReg) 25 mg BID PO 02/07/21 21:00 02/12/21 08:46 Clonidine HCl (Catapres) 0.1 mg BID PO 02/01/21 09:00 02/02/21 10:00 DC 02/02/21 09:09 Clonidine HCl (Catapres) 0.1 mg TID PO 02/02/21 16:00 02/05/21 05:58 DC 02/04/21 21:23 Clonidine HCl (Catapres) 0.1 mg TID PO 02/05/21 06:00 02/06/21 07:11 DC 02/05/21 21:44 Clonidine HCl (Catapres) 0.2 mg TID PO 02/06/21 09:00 02/06/21 17:20 DC 02/06/21 16:45 Clonidine HCl (Catapres) 0.3 mg TID PO 02/06/21 21:00 02/12/21 16:10 Darbepoetin Hayden (Aranesp (Dialysis Use)) 100 mcg HD IV 01/30/21 08:05 02/02/21 17:58 DC 01/30/21 13:39 Darbepoetin Hayden (Aranesp (Dialysis Use)) 200 mcg HD IV 02/02/21 18:00 02/06/21 13:05 DC Darbepoetin Hayden (Aranesp (Dialysis Use)) 200 mcg HD IV 02/06/21 12:55 02/06/21 14:32 Dextrose (Dextrose 50%) 25 ml ASDIRECTED PRN IV SEE LABEL COMMENTS 01/25/21 01:35 02/05/21 08:05 DC 02/01/21 11:54 Dextrose (Dextrose 50%) 25 ml ASDIRECTED PRN IV SEE LABEL COMMENTS 02/05/21 08:00 02/07/21 14:51 Furosemide (Lasix) 80 mg BID PO 01/25/21 09:00 01/31/21 12:01 DC 01/31/21 09:48 Glucagon (Glucagon) 1 mg ASDIRECTED PRN SC SEE LABEL COMMENTS 01/25/21 01:35 02/05/21 08:05 DC Glucagon (Glucagon) 1 mg ASDIRECTED PRN SC SEE LABEL COMMENTS 02/05/21 08:00 Glucose (Glucose) 16 GM ASDIRECTED PRN PO SEE LABEL COMMENTS 01/25/21 01:35 02/05/21 08:05 DC Glucose (Glucose) 16 GM ASDIRECTED PRN PO SEE LABEL COMMENTS 02/05/21 08:00 Heparin Sodium (Heparin (Flush)) 200 units ASDIRECTED PRN IV SEE LABEL COMMENTS 02/07/21 16:30 Heparin Sodium (Heparin (Flush)) 200 units PICC IV 02/07/21 18:00 02/12/21 05:32 Heparin Sodium (Heparin) Please refer to ... ASDIRECTED XX 02/11/21 06:00 02/12/21 05:59 DC Heparin Sodium (Heparin) Please refer to ... ASDIRECTED XX 02/04/21 07:00 02/05/21 06:59 DC Heparin Sodium (Heparin) Please refer to ... ASDIRECTED XX 02/05/21 07:25 02/06/21 07:24 DC Heparin Sodium (Heparin) Please refer to ... ASDIRECTED XX 02/06/21 07:10 02/07/21 07:09 DC Heparin Sodium (Heparin) Please refer to ... ASDIRECTED XX 02/07/21 07:10 02/08/21 07:09 DC Heparin Sodium (Heparin) Please refer to ... ASDIRECTED XX 02/08/21 07:25 02/09/21 07:24 DC Heparin Sodium (Heparin) Please refer to ... ASDIRECTED XX 02/08/21 22:30 02/09/21 22:29 DC Heparin Sodium (Heparin) dose as per volume indica... ASDIRECTED PRN IV SEE LABEL COMMENTS 02/11/21 06:00 02/11/21 20:49 DC Heparin Sodium (Heparin) dose as per volume indica... ASDIRECTED PRN IV SEE LABEL COMMENTS 02/04/21 07:00 02/04/21 11:34 DC Heparin Sodium (Heparin) dose as per volume indica... ASDIRECTED PRN IV SEE LABEL COMMENTS 02/05/21 07:25 02/06/21 07:24 DC Heparin Sodium (Heparin) dose as per volume indica... ASDIRECTED PRN IV SEE LABEL COMMENTS 02/06/21 07:10 02/07/21 07:09 DC Heparin Sodium (Heparin) dose as per volume indica... ASDIRECTED PRN IV SEE LABEL COMMENTS 02/07/21 07:10 02/08/21 07:09 DC Heparin Sodium (Heparin) dose as per volume indica... ASDIRECTED PRN IV SEE LABEL COMMENTS 02/08/21 07:25 02/09/21 07:24 DC Heparin Sodium (Heparin) dose as per volume indica... ASDIRECTED PRN IV SEE LABEL COMMENTS 02/08/21 22:30 02/09/21 22:29 DC Heparin Sodium (Porcine) (Heparin) 5,000 units Q8H SC 01/25/21 06:00 01/31/21 11:25 DC 01/28/21 06:56 Home Med (Med Rec Complete!) ASDIRECTED XX 01/24/21 23:50 01/24/21 23:50 DC Hydralazine HCl (Apresoline) 10 mg STAT STAT IV 02/04/21 06:19 02/04/21 06:20 DC Hydralazine HCl (Apresoline) 75 mg TID PO 01/25/21 01:35 01/29/21 11:49 DC 01/29/21 09:27 Hydralazine HCl (Apresoline) 100 mg TID PO 01/29/21 16:00 02/02/21 09:50 DC 02/02/21 08:58 Hydroxyzine HCl (Atarax) 25 mg BID PO 01/31/21 21:00 02/12/21 08:44 Insulin Detemir (Levemir Insulin) 10 units QHS MA 01/26/21 21:00 02/05/21 09:32 DC 02/04/21 21:24 Insulin Detemir (Levemir Insulin) 15 units BID SC 02/06/21 21:00 02/12/21 08:46 Insulin Detemir (Levemir Insulin) 20 units BID MA 02/05/21 09:00 02/06/21 10:40 DC 02/05/21 22:01 Insulin Detemir (Levemir Insulin) 25 units QHS MA 01/25/21 01:35 01/26/21 09:32 DC 01/25/21 21:29 Insulin Human Lispro (HumaLOG INSULIN) SEE PROTOCOL TABLE AC MA 01/25/21 12:00 02/04/21 08:12 DC 02/03/21 09:04 Insulin Human Lispro (HumaLOG INSULIN) SEE PROTOCOL TABLE QHS MA 01/25/21 21:00 02/04/21 08:12 DC 02/02/21 21:57 Insulin Human Lispro (HumaLOG INSULIN) See Protocol Table AC MA 02/05/21 07:30 02/12/21 12:00 Insulin Human Lispro (HumaLOG INSULIN) See Protocol Table Q6H MA 01/25/21 00:00 01/25/21 11:52 DC 01/25/21 08:23 Insulin Human Lispro (HumaLOG INSULIN) See Protocol Table QHS MA 02/05/21 21:00 02/07/21 21:24 Insulin Human Regular 100 unit/ IV Miscellaneous Supplies 100 ml @ 0 mls/hr Q0M IV 02/04/21 01:00 02/03/21 23:53 DC Insulin Human Regular 100 unit/ IV Miscellaneous Supplies 100 ml @ 0 mls/hr Q0M IV 02/04/21 07:00 02/04/21 20:51 DC Insulin Human Regular 100 units/ Sodium Chloride 101 ml @ 0 mls/hr Q0M IV 02/04/21 01:00 02/04/21 06:30 DC 02/04/21 00:37 Iron (Venofer) 100 mg HD IV 02/09/21 09:50 02/11/21 11:30 Isosorbide Mononitrate (Imdur) 60 mg DAILY PO 01/25/21 09:00 02/05/21 17:11 DC 02/05/21 08:21 Isosorbide Mononitrate (Imdur) 90 mg DAILY PO 02/06/21 09:00 02/12/21 08:46 Labetalol HCl (Normodyne, Trandate) 10 mg Q4H PRN IV HYPERTENSION 02/05/21 11:40 02/07/21 12:16 DC 02/07/21 06:26 Labetalol HCl (Normodyne, Trandate) 10 mg STAT STAT IV 02/07/21 12:30 02/07/21 12:32 DC 02/07/21 12:41 Labetalol HCl (Normodyne, Trandate) 20 mg Q4H PRN IV HYPERTENSION 02/07/21 15:40 02/11/21 05:46 Labetalol HCl (Normodyne, Trandate) 20 mg Q6HP PRN IV HYPERTENSION 02/05/21 11:35 02/05/21 11:39 DC Labetalol HCl (Normodyne, Trandate) 20 mg STAT STAT IV 02/05/21 05:50 02/05/21 05:55 DC Lactobacillus Acidophilus (Bacid) 1 ea BIDWM PO 01/25/21 08:00 02/12/21 08:45 Lidocaine HCl (Lmx 4/Anecream) apply to right arm ASDIRECTED PRN TOP PAIN 02/01/21 18:30 02/06/21 09:27 Losartan Potassium (Cozaar) 50 mg BID PO 01/25/21 01:35 02/05/21 05:58 DC 02/04/21 21:24 Losartan Potassium (Cozaar) 50 mg BID PO 02/05/21 06:00 02/05/21 06:15 DC Losartan Potassium (Cozaar) 50 mg BID PO 02/05/21 06:00 02/07/21 08:34 DC 02/07/21 07:14 Losartan Potassium (Cozaar) 100 mg QHS PO 02/07/21 21:00 02/11/21 21:40 Magnesium Hydroxide (Milk Of Magnesia) 30 ml DAILY PRN PO CONSTIPATION 01/25/21 00:40 Metoprolol Tartrate (Lopressor) 100 mg BID PO 01/25/21 01:35 02/05/21 05:58 DC 02/04/21 21:23 Metoprolol Tartrate (Lopressor) 100 mg BID PO 02/05/21 06:00 02/07/21 10:25 DC 02/07/21 07:13 Minoxidil (Loniten) 2.5 mg BID PO 02/11/21 21:00 02/12/21 08:45 Nifedipine (Procardia Xl) 90 mg DAILY PO 01/25/21 09:00 01/29/21 11:49 DC 01/29/21 09:27 Non-Formulary Medication (Insulin Iv Rate Change Documentation ml/ Hr) ASDIRECTED XX 02/03/21 23:40 03/05/21 23:39 02/04/21 17:15 Pantoprazole Sodium (Protonix) 40 mg DAILY PO 02/02/21 09:00 02/09/21 08:59 DC 02/08/21 15:23 Prednisone (Deltasone) 40 mg DAILY PO 02/02/21 09:00 02/04/21 07:38 DC 02/04/21 06:32 Sevelamer Carbonate (Renvela) 800 mg BIDP PRN PO SNACKS 01/25/21 01:35 Sevelamer Carbonate (Renvela) 1,600 mg WM PO 01/25/21 08:00 02/12/21 12:00 Sodium Chloride ([place] Nasal [place]) 2 spray Q2HP PRN NA NASAL DRYNESS 01/29/21 19:00 02/01/21 08:19 Sodium Chloride (Saline Lock Flush) 10 ml ASDIRECTED PRN IV SEE LABEL COMMENTS 02/07/21 16:30 Sodium Chloride (Saline Lock Flush) 10 ml PICC IV 02/07/21 18:00 02/12/21 05:31 Allergies Coded Allergies: cinacalcet (Verified Allergy, Unknown, 11/25/20) latex (Verified Allergy, Unknown, 11/03/19) morphine (Verified Allergy, Unknown, 11/03/19) peanut (Verified Allergy, Unknown, 11/25/20) TAPE (Verified Adverse Reaction, Intermediate, IRRITATES SKIN, 11/03/19) USE PAPER TAPE ONL;Y VS,Fishbone, I+O VS, Fishbone, I+O Laboratory Tests 02/12/21 05:40 Vital Signs Date Time Temp Pulse Resp B/P (MAP) Pulse Ox O2 Delivery O2 Flow Rate FiO2 02/12/21 16:10 157/71 02/12/21 16:00 97.4 74 18 93 Room Air I&O- Last 24 Hours up to 6 AM 02/12/21 06:00 Intake Total 480 ml Output Total 4000 ml Balance -3520 ml GME ATTESTATION GME ATTESTATION My faculty preceptor for this patient encounter was physically present during the encounter and was fully available. All aspects of the patient interview, examination, medical decision making process, and medical care plan development were reviewed and approved by the faculty preceptor. The faculty preceptor is aware and concurs with the plan as stated in the body of this note and will attest to such by his/her cosignature. DREW WASSERMAN MD Feb 12, 2021 16:38
[2021-02-12] MEDS: LOSARTAN 50MG TABLET PO SCH (21:00)
[2021-02-13] VITALS: BP_SYST 156; BP_SYST 159; BP_DIAS 68; BP_DIAS 76
[2021-02-13 04:00] VITALS: BP 150/66
[2021-02-13] MEDS: SODIUM CHLORIDE 0.9% INJ 10 ML SYR IV SCH ×2 (04:55→18:30)
[2021-02-13 05:29] LABS: BASO # 0.1 10^3/uL (0.0-0.2); BASO % 0.7 % (0.0-1.0); EOS # 0.4 10^3/uL (0.0-0.5); HEMATOCRIT 27.9 % (36.0-47.0); HEMOGLOBIN 8.8 g/dl (12.0-15.5); LYMPH # 1.5 10^3/uL (1.5-5.0); MEAN CORPUSCULAR HEMOGLOBIN 29.7 pg (27.0-33.0); MEAN CORPUSCULAR HGB CONC 31.5 g/dl (32.0-36.5); MEAN CORPUSCULAR VOLUME 94.3 fl (80.0-96.0); MONO # 1.1 10^3/uL (0.0-0.8); MONO % 8.9 % (2.0-8.0); NEUTROPHILS % 74.2 % (36.0-66.0); PLATELET COUNT, AUTOMATED 589 10^3/uL (150-450); RED BLOOD COUNT 2.96 10^6/uL (4.00-5.40); WHITE BLOOD COUNT 12.1 10^3/uL (4.0-10.0)
[2021-02-13 06:49] LABS: CALCIUM LEVEL 8.8 MG/DL (8.5-10.1); CREATININE FOR GFR 5.28 MG/DL (0.55-1.30); GLOMERULAR FILTRATION RATE 12.1 (>60); MAGNESIUM LEVEL 2.4 MG/DL (1.8-2.4); POTASSIUM SERUM 5.1 MEQ/L (3.5-5.1)
[2021-02-13 07:04] LABS: ALBUMIN 2.4 GM/DL (3.2-5.2); BILIRUBIN,DIRECT 1.4 MG/DL (0.0-0.2); BILIRUBIN,TOTAL 1.6 MG/DL (0.2-1.0); TOTAL PROTEIN 7.4 GM/DL (6.4-8.2)
[2021-02-13] MEDS: HumaLOG INSULIN (NovoLOG) PER UNIT SC SCH ×4 (07:30→21:03)
[2021-02-13 08:00] VITALS: BP 172/77
[2021-02-13 08:31] LABS: PERCENT SATURATION 15.2 % (13.2-45.0)
[2021-02-13] MEDS: LEVEMIR (INSULIN DETEMIR) 1 UNITS/0.01ML SC SCH ×2 (09:00→21:02)
[2021-02-13] MEDS: CARVedilol 12.5 MG TAB PO SCH ×2 (09:24→21:05)
[2021-02-13] MEDS: cloNIDine 0.1MG TABLET PO SCH ×3 (09:24→21:03)
[2021-02-13] MEDS: ASPIRIN 81MG ENTERIC TABLET PO SCH (09:25)
[2021-02-13] MEDS: hydrOXYzine 25 MG TAB PO SCH ×2 (09:25→21:04)
[2021-02-13] MEDS: (RENVELA) SEVELAMER **CARBONate** 800 MG TAB PO SCH ×3 (09:25→18:29)
[2021-02-13] MEDS: CALCITRIOL 0.25 MCG CAP (S0169) PO SCH (09:26)
[2021-02-13] MEDS: LACTOBACILLUS ACIDOPHILUS CAP (BACID) PO SCH ×2 (09:26→18:29)
[2021-02-13] MEDS: ISOSORBIDE MON. (IMDUR) 30 MG XR TAB PO SCH (09:26)
[2021-02-13] MEDS: minoxidiL 2.5 MG TAB PO SCH ×2 (09:26→21:04)
[2021-02-13] MEDS ORDERED: SODIUM CHLORIDE 0.9% 1000ML IV PRN (10:35)
--- NOTE | 2021-02-13 11:20 | IPN ---
PROGRESS NOTE DATE: 02/13/2021 SUBJECTIVE: Narcisa is seen on the hospitalist service. No reach change in her status from yesterday. Currently awaiting results of liver biopsy. Long history of noncompliance thought partially related to poor social situation. Denies any fever, chills, shortness of breath, or chest pain today. OBJECTIVE: VITAL SIGNS: Afebrile. Vital signs stable. GENERAL: Alert and conversant in no distress. LUNGS: Clear. HEART: Regular rate and rhythm. ABDOMEN: Soft and nontender. EXTREMITIES: No peripheral edema. The left foot is dressed. IMPRESSION AND PLAN: 1. Diabetic ketoacidosis (DKA) and diabetes under better control. Blood sugar was a little low this morning. Her basal insulin was held. Outpatient compliance was poor. Hemoglobin A1c of 10. 2. Abnormal liver function tests. Liver biopsy pending. 3. End-stage renal disease on hemodialysis Thursday, Thursday, and Thursday. Nephrology has been consulted. 4. Diabetic foot ulcer. Dr. Mondragon has been consulted and appreciate his input. 5. Hypertension. Blood pressure is well-controlled. PFS is working on disposition. Per case conference today, she has financial means for her own housing now.
[2021-02-13 12:00] VITALS: BP 137/70
[2021-02-13] MEDS: DARBEPOETIN 200MCG/0.4ML *DIALYSIS* SYRINGE (J0882 PER 1MCG) IV SCH (13:06)
[2021-02-13] MEDS: IRON SUCROSE 100MG 5ML VIAL (J1756 PER 1MG) IV SCH (14:37)
[2021-02-13 20:00] VITALS: BP 155/67
[2021-02-13] MEDS: LOSARTAN 50MG TABLET PO SCH (21:04)
[2021-02-14] VITALS: BP 138/78
--- NOTE | 2021-02-14 02:52 | REPVR ---
PROCEDURE INFORMATION: Exam: US Duplex Right Upper Extremity Veins, Limited Exam date and time: 02/14/2021 2:10 AM Age: 35 years old Clinical indication: Pain; Arm, upper; Right; Prior surgery; Surgery date: 6+ months; Surgery type: RT fistula antecubital; Additional info: Right arm swelling TECHNIQUE: Imaging protocol: Real-time Duplex ultrasound of the Right Upper Extremity with 2-D burkett scale, color Doppler flow and spectral waveform analysis with image documentation. Limited exam focused on the right upper extremity veins. COMPARISON: US DUPLEX EXT UPPER VEINS UNILATE RIGHT 01/21/2021 6:27 PM FINDINGS: Right deep veins: Axillary and brachial veins are patent throughout without thrombus. Normal Doppler waveforms. Normal compressibility and/or augmentation response. Right superficial veins: Nonocclusive intraluminal filling defect within the right cephalic vein Soft tissues: No abnormal focal fluid collection. IMPRESSION: Incompletely occlusive thrombus within the distal right cephalic vein. No involvement of the brachial vein or axillary vein. Electronically signed by: Herberth Salcedo On 02/14/2021 02:52:42 AM
[2021-02-14 04:00] VITALS: BP 131/81
--- NOTE | 2021-02-14 04:16 | IPNPDOC ---
Text Note Date of Service The patient was seen on 02/14/21. NOTE TIME OF SERVICE 405AM I was informed by the patient's RN that ordered an US of the right arm that showed a clot. At the time of my evaluation the pt admitted to having right arm pain and swelling and added that she receives dialysis via a perma cath. PE: asleep but easily arousable / right lower arm slightly swollen / AV fistula has a weak thrill US report "IMPRESSION: Incompletely occlusive thrombus within the distal right cephalic vein. No involvement of the brachial vein or axillary vein. # Superficial thrombophlebitis / Possible AV stenosis ? plan: acetaminophen / elevate arm / warm compresses / will touch base with to confirm whether she wants us to consult VSKiana, I+O Kiana SALINAS I+O Laboratory Tests 02/13/21 05:00 Vital Signs Date Time Temp Pulse Resp B/P (MAP) Pulse Ox O2 Delivery O2 Flow Rate FiO2 02/14/21 00:00 97.8 74 18 138/78 (98) 94 Room Air I&O- Last 24 Hours up to 6 AM 02/14/21 06:00 Intake Total 1080 ml Output Total 4000 ml Balance -2920 ml MICHAEL GOLD MD Feb 14, 2021 04:16
[2021-02-14] MEDS: SODIUM CHLORIDE 0.9% INJ 10 ML SYR IV SCH ×2 (05:40→17:02)
[2021-02-14 05:44] LABS: HEMATOCRIT 26.4 % (36.0-47.0); HEMOGLOBIN 8.3 g/dl (12.0-15.5); MEAN CORPUSCULAR HEMOGLOBIN 29.6 pg (27.0-33.0); MEAN CORPUSCULAR HGB CONC 31.4 g/dl (32.0-36.5); MEAN CORPUSCULAR VOLUME 94.3 fl (80.0-96.0); PLATELET COUNT, AUTOMATED 532 10^3/uL (150-450); WHITE BLOOD COUNT 12.1 10^3/uL (4.0-10.0)
[2021-02-14 07:04] LABS: CALCIUM LEVEL 8.7 MG/DL (8.5-10.1); CREATININE FOR GFR 3.71 MG/DL (0.55-1.30); GLOMERULAR FILTRATION RATE 18.1 (>60); POTASSIUM SERUM 4.9 MEQ/L (3.5-5.1)
[2021-02-14 07:29] VITALS: BP 135/63
[2021-02-14] MEDS: LEVEMIR (INSULIN DETEMIR) 1 UNITS/0.01ML SC SCH ×2 (09:08→21:48)
[2021-02-14] MEDS: HumaLOG INSULIN (NovoLOG) PER UNIT SC SCH ×4 (09:08→20:18)
[2021-02-14] MEDS: (RENVELA) SEVELAMER **CARBONate** 800 MG TAB PO SCH ×3 (09:09→17:01)
[2021-02-14] MEDS: LACTOBACILLUS ACIDOPHILUS CAP (BACID) PO SCH ×2 (09:10→17:01)
[2021-02-14] MEDS: ISOSORBIDE MON. (IMDUR) 30 MG XR TAB PO SCH (09:10)
[2021-02-14] MEDS: cloNIDine 0.1MG TABLET PO SCH ×3 (09:10→21:00)
[2021-02-14] MEDS: minoxidiL 2.5 MG TAB PO SCH ×2 (09:11→21:00)
[2021-02-14] MEDS: ASPIRIN 81MG ENTERIC TABLET PO SCH (09:11)
[2021-02-14] MEDS: CARVedilol 12.5 MG TAB PO SCH ×2 (09:11→21:47)
[2021-02-14] MEDS: hydrOXYzine 25 MG TAB PO SCH ×2 (09:11→21:48)
[2021-02-14] MEDS: CALCITRIOL 0.25 MCG CAP (S0169) PO SCH (09:12)
--- NOTE | 2021-02-14 09:42 | IPN ---
PROGRESS NOTE DATE: 02/14/2021 SUBJECTIVE: Narcisa had an ultrasound last night. Right arm showed a DVT. She gets dialysis via PermaCath. Incompletely occlusive thrombus distal right cephalic vein with no involvement of brachial vein or axillary vein. Dr. Bates was consulted. Plan is to have the patient see Dr. Nascimento from vascular surgery as an outpatient. The patient feels well. Her arm is not bothering her very much today. No shortness of breath. OBJECTIVE: VITAL SIGNS: Afebrile. Vital signs stable. GENERAL APPEARANCE: Alert, conversant, and in no distress. LUNGS: Clear. HEART: Regular rhythm. ABDOMEN: Soft and nontender. EXTREMITIES: Right arm has some mild edema. IMPRESSION AND PLAN: 1. Superficial phlebitis right upper extremity. She is elevating, heating, and planned for outpatient evaluation by vascular surgery. 2. The rest of her medical problems are stable. ADDENDUM: Liver biopsy results are back and did not show evidence of any cirrhosis. Moderate sinusoidal dilatation, perivenular/perisinusoidal fibrosis suggestive of venous outflow obstruction, moderate siderosis. She has already had an MR of the abdomen. She has had a liver ultrasound as well. I do not see any discussion of portal vein thrombosis.
[2021-02-14 12:15] VITALS: BP 141/65
[2021-02-14 16:00] VITALS: BP 142/71
--- NOTE | 2021-02-14 16:53 | IPN ---
PROGRESS NOTE DATE: 02/13/2021 SUBJECTIVE: Patient seen and examined this afternoon in the hemodialysis unit receiving treatment with goal fluid removal of 4 liters. She complains of right forearm swelling and tenderness. She otherwise denies any other complaints. No chest pain or shortness of breath. OBJECTIVE: VITAL SIGNS: Temperature 96.7, pulse 71, respiratory rate 18, blood pressure 137/70, saturating 100% on room air. INTAKE AND OUTPUT: Intake yesterday was not fully recorded. Dialysis today is removing 4 liters. Weight on the bed scale today 88.1 kg. GENERAL: The patient is seen awake, alert, and oriented. Receiving her treatment in no distress. HEENT: Extraocular muscles are intact. Tongue is moist. Neck is supple. The tunneled hemodialysis catheter is in use. HEART: Sounds are regular S1, S2. There is no peripheral edema. LUNGS: Clear to auscultation bilaterally. No crackles, rales, or rhonchi. ABDOMEN: Soft and nontender with positive bowel sounds. EXTREMITIES: Show a nonfunctional right arm AV fistula with swelling distal to the fistula and tenderness to touch. NEUROLOGIC: The patient is awake, alert, and oriented x3 at baseline mentation. PSYCHIATRIC: Appropriate mood and affect. LABORATORY DATA: Today's laboratory studies show white count 12.1, hemoglobin 8.3, platelets 532,000. Sodium 132, potassium 4.9, bicarbonate 22. INPATIENT MEDICATIONS: Reviewed by myself and no changes noted as compared to yesterday. PROBLEMS: 1. End-stage renal disease on hemodialysis on a Thursday, Thursday, and Thursday schedule. The patient is dialyzed today with 4 liters of fluid removed. Her electrolytes are acceptable. There is mild hypervolemic hyponatremia that will improve with dialysis and fluid removal. Continue current dialysis prescription. 2. Anemia of chronic renal failure along with iron deficiency. The patient continues on intravenous (IV) iron with Aranesp and I would transfuse for hemoglobin less than 8. 3. Hypertension status post hypertensive urgency. Over the past two days, the patient's blood pressures are now much better controlled since minoxidil was added and systolics are now mostly 130s to 140s. There has not been any trouble with hypotension of hemodialysis nor trouble with fluid removal. Continue current regimen of amlodipine, carvedilol, Clonidine, isosorbide, losartan, and minoxidil. Unfortunately, the patient is noncompliant with antihypertensives in the outpatient setting. 4. Poorly controlled type 1 insulin-dependent diabetic. Most recent A1c greater than 10%. Insulin is managed as per the primary service. 5. Superficial thrombosis of the right cephalic vein. I did discuss the vascular Doppler with Dr. Nascimento as it is in the ipsilateral arm of the arteriovenous (AV) fistula and she recommended the patient be started on anticoagulation. Previously this patient did have very high platelets of around 100,000 and she has been on low dose aspirin for several weeks now and I will go ahead and add Eliquis 2.5 mg b.i.d. as well.
--- NOTE | 2021-02-14 17:12 | IPN ---
PROGRESS NOTE DATE: 02/14/2021 SUBJECTIVE: The patient is seen and examined this morning at the bedside. She was dialyzed yesterday and tolerated her treatment without any issues. Four liters of fluid was removed. She complains of ongoing swelling and tenderness in the right arm. I discussed with her that the vascular Doppler showed a superficial thrombosis and I have requested Dr. Nascimento to see the patient at her leisure as her thrombosis is distal to the fistula and I discussed with the patient regarding starting low dose anticoagulation. The patient denies any other complaints. OBJECTIVE: VITAL SIGNS: Temperature 97.6, pulse 81, respiratory rate 18, blood pressure 141/65, saturating 94% on room air. INTAKE AND OUTPUT: Intake yesterday was 1 liter. Dialysis removed 4 liters. Weight on the bed scale today is 87.9 kg. GENERAL: Patient seen awake, alert, oriented, comfortable, and in no apparent distress. HEENT: Extraocular muscles are intact. Tongue is moist. Neck is supple. There is a tunneled hemodialysis catheter with a clean dressing. HEART: Sounds are regular. S1, S2. There is no peripheral edema. There is no dependent edema. There is a fistula in the right arm, which is not functional. There is some swelling in the distal right forearm, which is tender to touch. LUNGS: Clear to auscultation bilaterally. No crackle, rale, or rhonchus. ABDOMEN: Soft and nontender. There are bowel sounds. SKIN: Normal temperature and turgor. NEUROLOGIC: Oriented x3 at baseline mentation. LABORATORY DATA: Today shows sodium 132, potassium 4.9, bicarbonate 22, BUN 35. Hemoglobin 8.3, platelets 532,000. INPATIENT MEDICATIONS: Eliquis 2.5 mg p.o. twice daily as added. Remainder of medications are unchanged as compared to prior. PROBLEMS: 1. End-stage renal disease on hemodialysis on Thursday, Thursday, and Thursday schedule. She is well dialyzed. Her volume status and electrolytes are acceptable. Her blood pressure control has improved. Continue current dialysis prescription. 2. Anemia related to chronic renal failure and iron deficiency. Continue Venofer and Aranesp with dialysis. I would transfuse for hemoglobin less than 8. 3. Hypertension. Blood pressure control is much improved. Continue the current multidrug regimen including amlodipine, carvedilol, Clonidine, isosorbide, losartan, and minoxidil. Hydralazine was stopped earlier on admission for concern of drug-induced hepatitis. 4. Superficial thrombosis of the right arm with ipsilateral fistula. After discussion with vascular surgery, I am starting the patient on Eliquis 2.5 mg b.i.d. She also continues on low dose aspirin, which was started secondary to significant thrombocytosis early and the patient had a platelet count of around 100,000 at that time.
--- NOTE | 2021-02-14 18:31 | CR.PDOC ---
General Date of Consultation: Feb 14, 2021 Consultation REASON FOR CONSULTATION/CHIEF COMPLAINT: Partially occlusive cephalic vein thrombus right upper extremity HISTORY OF PRESENT ILLNESS: This is a very pleasant 35-year-old patient with con siderable medical history who was noted to have some swelling of the right upper extremity and underwent a venous ultrasound that revealed partially occluded cephalic vein in the right upper extremity. Patient has a history of a right brachiocephalic AV fistula managed by Dr. Delgado, that subsequently has thrombosed. Unfortunately, since it is been thrombosed for almost a year, there is no viable option to salvage at this point. The patient has missed multiple appointments for fistulogram in the past, and subsequent appointments for new fistula creation after thrombosis of her previous fistula. She has a challenging social situation, and frequently does not have transportation or childcare to come to her vascular surgery appointments. She is now admitted with multiple medical problems and we have been consulted to evaluate the findings on the venous duplex. She has some tenderness over the forearm, but not the bicep. I'm not sure the etiology of this- it's been present 1-2 weeks, not worse or better, and she denies injury or trauma to the arm. The swelling in the right arm may be due to some outflow limitations beginning due to mcc permcath and central vein stenosis, or related to whatever has resulted in her right forearm pain- unclear. However, no intervention needed for chronic fistula thrombosis. ALLERGIES: Please see below. HOME MEDICATIONS: Please see below. PAST MEDICAL HISTORY: End-stage renal disease on hemodialysis, hypertension, diabetes, valvular heart disease, thrombocytosis, pulmonary hypertension PAST SURGICAL HISTORY: Removal of intracranial cyst, metatarsal head removal bilateral feet, , brachiocephalic fistula right upper extremity, Perm Cath placement, FAMILY HISTORY: Diabetes, COPD, hypertension SOCIAL HISTORY: Patient denies tobacco alcohol or illicit drug use. REVIEW OF SYSTEMS: CONSTITUTIONAL: Denies fevers or chills positive malaise HEENT: Denies new vision or hearing changes CARDIOVASCULAR: Denies chest pain. RESPIRATORY: Occasional shortness of breath GENITOURINARY: Denies dysuria MUSCULOSKELETAL: Denies claudication GASTROINTESTINAL: Denies nausea vomiting SKIN: Positive diabetic ulcer foot NEUROLOGICAL: Denies headache seizures or strokes PSYCHIATRIC: Positive anxiety and depression ENDOCRINE: Positive diabetes HEMATOLOGIC/LYMPHATIC: Positive thrombocytosis ALLERGIC/IMMUNOLOGIC: Denies PHYSICAL EXAMINATION: VITAL SIGNS: Please see below. GENERAL APPEARANCE: Medically stable HEENT: Normocephalic TMI RESPIRATORY: Slightly coarse breath sounds bilaterally CARDIOVASCULAR: Regular rate and rhythm. ABDOMEN: Soft nontender. EXTREMITIES: Right upper extremity AV fistula is thrombosed. Distal pulses are intact. Mild TTP over forearm, no TTP over upper arm and bicep. 1+ edema noted RUE, non-pitting. NEUROLOGICAL: Alert and oriented, no focal deficits noted. PSYCHIATRIC: Pleasant and cooperative LABORATORY DATA: Please see below. ASSESSMENT/PLAN: 35-year-old patient with extensive medical comorbidities and end-stage renal disease with thrombosed right upper extremity brachiocephalic AV fistula with some swelling noted of the right upper extremity 1. Elevate right arm to diminish swelling, ice or warm compresses for comfort to forearm 2. Will obtain updated vein mapping for options for new AV fistula creation We appreciate the opportunity to participate in the care of this patient. Vital Signs/I&O Vital Signs Date Time Temp Pulse Resp B/P (MAP) Pulse Ox O2 Delivery O2 Flow Rate FiO2 02/14/21 17:01 142/71 02/14/21 16:00 97.4 79 18 97 Room Air I&O- Last 24 Hours up to 6 AM 02/14/21 06:00 Intake Total 1320 ml Output Total 4000 ml Balance -2680 ml Laboratory Data Labs 24H Laboratory Tests 2 02/13/21 20:08: Bedside Glucose (Misc Panel) 260H 02/14/21 05:32: Nucleated Red Blood Cells % (auto) 0.0, Anion Gap 11, Glomerular Filtration Rate 18.1L, Calcium Level 8.7 02/14/21 12:09: Bedside Glucose (Misc Panel) 171H 02/14/21 16:44: Bedside Glucose (Misc Panel) 61L CBC/BMP Laboratory Tests 02/14/21 05:32 Allergies Coded Allergies: cinacalcet (Verified Allergy, Unknown, 11/25/20) latex (Verified Allergy, Unknown, 11/03/19) morphine (Verified Allergy, Unknown, 11/03/19) peanut (Verified Allergy, Unknown, 11/25/20) TAPE (Verified Adverse Reaction, Intermediate, IRRITATES SKIN, 11/03/19) USE PAPER TAPE ONL;Y Home Medications Scheduled Amlodipine Besylate (Amlodipine Besylate) 10 Mg Tablet, 10 MG PO DAILY, (Reported) Aspirin (Aspirin EC) 81 Mg Tablet.dr, 81 MG PO DAILY, (Reported) Calcitriol (Calcitriol) 0.25 Mcg Capsule, 0.25 MCG PO DAILY, (Reported) Ergocalciferol (Vitamin D2) (Vitamin D2) 50,000 Units Cap, 50,000 UNITS PO QWEEK, (Reported) THURSDAY Furosemide (Furosemide) 80 Mg Tablet, 80 MG PO BID, (Reported) Hydralazine HCl (Hydralazine HCl) 25 Mg Tablet, 75 MG PO TID, (Reported) Insulin Glargine,Hum.rec.anlog (Basaglar Kwikpen U-100) 100 Unit/1 Ml Insuln.pe n, 25 UNIT SC QHS, (Reported) Insulin Human Lispro (Novolog) 100 Unit/1 Ml Vial, 1 DOSE SC AC, (Reported) PER SLIDING SCALE Isosorbide Mononitrate (Isosorbide Mononitrate ER) 60 Mg Tab.er.24h, 60 MG PO DAILY, (Reported) L.acidoph/L.bulg/B.bif/S.therm (Tonja-Bid Caplet) 1 Each Tablet, 1 TAB PO BIDWM, (Reported) Losartan Potassium (Losartan Potassium) 50 Mg Tablet, 50 MG PO BID, (Reported) Metoprolol Tartrate (Metoprolol Tartrate) 100 Mg Tablet, 100 MG PO BID, (Reported) Nifedipine (Nifedipine ER) 90 Mg Tablet.er, 90 MG PO DAILY, (Reported) Sevelamer Carbonate (Sevelamer Carbonate) 800 Mg Tablet, 1,600 MG PO WM, (Reported) WITH MEALS Scheduled PRN Sevelamer Carbonate (Sevelamer Carbonate) 800 Mg Tablet, 800 MG PO BID PRN for SNACKS, (Reported) Miscellaneous Medications [Patient Comment] , (Reported) MED REC COMPLETE VIA PREVIOUS DISCHARGE PAPERWORK (01/23/21) MARIZA FITZGERALD MD Feb 14, 2021 18:31
[2021-02-14 20:00] VITALS: BP 122/58
[2021-02-14] MEDS ORDERED: APIXABAN 2.5 MG TAB (ELIQUIS) PO SCH (21:00)
[2021-02-14] MEDS: LOSARTAN 50MG TABLET PO SCH (21:47)
[2021-02-15] VITALS (11 sets, daily range): BP systolic 131–193; BP diastolic 60–84
[2021-02-15] MEDS: SODIUM CHLORIDE 0.9% INJ 10 ML SYR IV SCH ×2 (06:20→16:17)
[2021-02-15] MEDS: HumaLOG INSULIN (NovoLOG) PER UNIT SC SCH ×4 (06:20→21:00)
[2021-02-15 06:31] LABS: HEMATOCRIT 25.3 % (36.0-47.0); HEMOGLOBIN 8.1 g/dl (12.0-15.5); MEAN CORPUSCULAR HEMOGLOBIN 30.2 pg (27.0-33.0); MEAN CORPUSCULAR VOLUME 94.4 fl (80.0-96.0); PLATELET COUNT, AUTOMATED 523 10^3/uL (150-450); RED BLOOD COUNT 2.68 10^6/uL (4.00-5.40); WHITE BLOOD COUNT 10.7 10^3/uL (4.0-10.0)
[2021-02-15] MEDS: LEVEMIR (INSULIN DETEMIR) 1 UNITS/0.01ML SC SCH ×2 (07:03→21:06)
[2021-02-15 07:04] LABS: CREATININE FOR GFR 5.15 MG/DL (0.55-1.30); GLOMERULAR FILTRATION RATE 12.4 (>60); POTASSIUM SERUM 5.1 MEQ/L (3.5-5.1)
[2021-02-15] MEDS: CARVedilol 12.5 MG TAB PO SCH ×2 (08:22→21:03)
[2021-02-15] MEDS: cloNIDine 0.1MG TABLET PO SCH ×3 (08:26→21:02)
[2021-02-15] MEDS: ASPIRIN 81MG ENTERIC TABLET PO SCH (08:27)
[2021-02-15] MEDS: LACTOBACILLUS ACIDOPHILUS CAP (BACID) PO SCH ×2 (08:27→21:03)
[2021-02-15] MEDS: CALCITRIOL 0.25 MCG CAP (S0169) PO SCH (08:27)
[2021-02-15] MEDS: (RENVELA) SEVELAMER **CARBONate** 800 MG TAB PO SCH ×3 (08:27→21:02)
[2021-02-15] MEDS: minoxidiL 2.5 MG TAB PO SCH ×2 (08:28→21:03)
[2021-02-15] MEDS: hydrOXYzine 25 MG TAB PO SCH ×2 (08:28→21:03)
[2021-02-15] MEDS: ISOSORBIDE MON. (IMDUR) 30 MG XR TAB PO SCH (08:28)
[2021-02-15] MEDS ORDERED: SODIUM CHLORIDE 0.9% 1000ML IV PRN (09:20)
[2021-02-15] MEDS: IRON SUCROSE 100MG 5ML VIAL (J1756 PER 1MG) IV SCH (09:52)
--- NOTE | 2021-02-15 10:25 | IPN ---
PROGRESS NOTE DATE: 02/15/2021 SUBJECTIVE: Narcisa is seen in the PCU. Her right arm is less swollen, no other changes. No chest pain. No shortness of breath. OBJECTIVE: Afebrile. Vital signs are stable. Lungs are clear. Heart: Regular rhythm. Abdomen is soft, nontender. Left lower leg is dressed and her right arm is less edematous. Consultation with Dr. Nascimento yesterday was reviewed. She notes that she plans to do updated vein mapping for options of new AV fistula creation. __ unchanged. Hemoglobin A1c and electrolytes unchanged. Creatinine 5.1. IMPRESSION: 1. Endstage renal disease on hemodialysis on a Thursday, Thursday and Thursday schedule. 2. Hypertension, blood pressure is well-controlled. 3. Anemia, treatment per nephrology. 4. Superficial thrombosis of right arm with ipsilateral fistula. Started Eliquis 2.5 mg b.i.d. Continue low-dose aspirin. 5. Liver function tests. Liver biopsy was summarized yesterday. No strong evidence of cirrhosis, it looks like a venous outflow obstruction. No evidence of portal vein thrombosis on any of her imaging studies. 6. Left foot osteomyelitis, Dr. Bledsoe has been seeing her most recently on 02/11.
[2021-02-15] MEDS: LOSARTAN 50MG TABLET PO SCH (21:03)
[2021-02-16] VITALS: BP 157/66
[2021-02-16 04:00] VITALS: BP 139/68
[2021-02-16] MEDS: SODIUM CHLORIDE 0.9% INJ 10 ML SYR IV SCH ×2 (06:54→18:15)
[2021-02-16 06:58] LABS: HEMOGLOBIN 9.6 g/dl (12.0-15.5); MEAN CORPUSCULAR VOLUME 93.8 fl (80.0-96.0); PLATELET COUNT, AUTOMATED 534 10^3/uL (150-450); WHITE BLOOD COUNT 11.3 10^3/uL (4.0-10.0)
[2021-02-16 07:22] LABS: CALCIUM LEVEL 8.6 MG/DL (8.5-10.1); CREATININE FOR GFR 3.94 MG/DL (0.55-1.30); GLOMERULAR FILTRATION RATE 16.9 (>60); POTASSIUM SERUM 4.7 MEQ/L (3.5-5.1)
[2021-02-16 07:39] VITALS: BP 159/82
--- NOTE | 2021-02-16 07:43 | REP ---
INDICATION: R/O HEPATIC VEIN THROMBOSIS; r/o hepatic vein thrombosis. COMPARISON: Hepatic sonography January 25, 2021. Comparison CT and MRI imaging from January 24 and January 26, 2021 respectively.. TECHNIQUE: Complete abdominal sonography is performed. In addition, portal venous visceral Doppler assessment is performed. FINDINGS: Scanning through the right upper quadrant the abdomen demonstrates moderate wall thickening in the gallbladder, 6.5 mm today, somewhat less thick than previously. No stone is seen. Common bile duct is normal measuring 0.3 cm in diameter. The liver is enlarged with midclavicular craniocaudal span of 21 cm. No focal liver lesion is seen. No intrahepatic bile duct dilation is seen. No pancreatic abnormality is observed. There is a 1.9 cm accessory splenule in the left upper quadrant. The spleen is normal in size and homogeneous in texture. There is a small right pleural effusion. No abdominal ascites is visible today. Renal cortical echogenicity pattern is increased consistent with chronic medical renal disease. No hydronephrosis is seen. Right renal dimensions are 11.0 x 4.3 x 3.1 cm. Left kidney measures 10.2 x 4.7 x 4.6 cm. Normal caliber aorta is observed. Visceral Doppler: The a Paddock veins are prominent in size but patent. Normal velocities and normal direction of flow is observed in the portal vein and hepatic veins. The main portal vein is 13 mm in diameter which is normal. Portal venous velocity is 35 0.6 centimeters/second. Proximal superior mesenteric venous velocity is 40 centimeters/second. Splenic vein velocity is 11 centimeters/second near the hilus. Hepatic arterial peak systolic flow velocity is 103 centimeters/second resistive index 0.69. Intrahepatic portal vein velocity is and directions are normal as well. Exam quality is inhibited to some degree by a limited ability to breath hold. IMPRESSION: Moderate gallbladder wall thickening is again seen somewhat decreased from the prior ultrasound. Increased renal cortical echogenicity consistent with chronic medical renal disease. Hepatomegaly. Small right pleural effusion. No evidence to suggest Paddock vein thrombosis. Somewhat enlarged hepatic veins question right heart dysfunction. <Electronically signed by Kip Rizzo > 02/16/21 1453
--- NOTE | 2021-02-16 08:04 | IPN ---
PROGRESS NOTE DATE: 02/15/2021 SUBJECTIVE: Narcisa is seen and examined today in the hemodialysis unit, receiving her treatment without any issues. Denies any complaints. She was seen by Dr. Nascimento yesterday for her right arm swelling and Dr. Nascimento decided against anticoagulation. The patient reports no complaints. OBJECTIVE: VITAL SIGNS: Temperature 97.8, pulse 79, respiratory rate 18, blood pressure 139/74, saturating 94% on room air. HEMOLYSIS: Today removed 4 liters. GENERAL: Patient is seen awake, alert, oriented, comfortable receiving her treatment, no distress. HEENT: Extraocular muscles are intact. Tongue is moist. Neck is supple. Jugular veins are not elevated. Tunneled hemodialysis catheter is in use. HEART: Sounds are regular. S1, S2. LUNGS: Clear to auscultation bilaterally. No crackle, rale, or rhonchus. ABDOMEN: Soft and nontender. EXTREMITIES: Negative for edema in her legs. The left foot wounds are not examined. The right upper arm fistula is nonfunctional and there is some swelling in the distal right arm. SKIN: Warm and dry. LABORATORY STUDIES: Today show hemoglobin 8.1, white count 10.7, platelets 523. Sodium 132, potassium 5.1, bicarbonate 22. INPATIENT MEDICATIONS: Reviewed by myself. Eliquis was discontinued yesterday. Remainder of medications are unchanged as compared to prior. PROBLEMS: 1. End-stage renal disease on hemodialysis on Thursday, Thursday, and Thursday schedule. The patient is dialyzed today; 4 liters of fluid are removed. Volume status is well compensated. Next dialysis will be on Thursday. 2. Hypertension. Blood pressures are optimally controlled. Continue with the current multidrug regimen 3. Anemia. The patient has been on Aranesp with dialysis along with IV iron. Her hemoglobin is down to 8.1 on the latest labs today. In the setting of renal failure and chronic inflammatory state, I am transfusing one unit of blood today. 4. Right arm superficial thrombosis. The patient was seen by Dr. Nascimento who decided against Eliquis anticoagulation. The patient continues only on low dose Aspirin. 5. Left foot osteomyelitis managed by podiatry and primary care.
[2021-02-16] MEDS: LACTOBACILLUS ACIDOPHILUS CAP (BACID) PO SCH ×2 (08:43→18:22)
[2021-02-16] MEDS: hydrOXYzine 25 MG TAB PO SCH ×2 (08:43→20:25)
[2021-02-16] MEDS: CARVedilol 12.5 MG TAB PO SCH ×2 (08:43→20:25)
[2021-02-16] MEDS: cloNIDine 0.1MG TABLET PO SCH ×3 (08:44→20:24)
[2021-02-16] MEDS: ASPIRIN 81MG ENTERIC TABLET PO SCH (08:44)
[2021-02-16] MEDS: (RENVELA) SEVELAMER **CARBONate** 800 MG TAB PO SCH ×3 (08:45→18:22)
[2021-02-16] MEDS: CALCITRIOL 0.25 MCG CAP (S0169) PO SCH (08:45)
[2021-02-16] MEDS: ISOSORBIDE MON. (IMDUR) 30 MG XR TAB PO SCH (08:45)
[2021-02-16] MEDS: minoxidiL 2.5 MG TAB PO SCH ×2 (08:46→20:26)
[2021-02-16] MEDS: HumaLOG INSULIN (NovoLOG) PER UNIT SC SCH ×4 (08:47→20:10)
[2021-02-16] MEDS: LEVEMIR (INSULIN DETEMIR) 1 UNITS/0.01ML SC SCH ×2 (08:47→20:26)
[2021-02-16 11:45] VITALS: BP 125/62
--- NOTE | 2021-02-16 15:11 | IPN ---
PROGRESS NOTE DATE: 02/16/2021 SUBJECTIVE: Ms. Mireles is seen this morning on her bedside. She is lying in her bed without any acute distress. She denies any nausea or vomiting. Her itching has improved, but not completely resolved. She underwent hemodialysis yesterday and also received 1 unit of packed RBC's. PHYSICAL EXAMINATION: VITALS: Temperature 97.7 degrees Fahrenheit, heart rate 78 per minute, respiratory rate 18 per minute, blood pressure 159/82 mmHg and oxygen saturation 97% on room air. HEENT: Head is atraumatic. Neck veins are difficult to assess. She has a Permacath in her right internal jugular vein. Thyroid is mildly enlarged. LUNGS: Clear to auscultation bilaterally. HEART: Sounds are regular. ABDOMEN: Soft and nontender. Bowel sounds are normal. EXTREMITIES: Without any cyanosis or clubbing. Left foot is in the dressing. NEUROLOGIC: She is awake, alert and oriented x3. LABORATORY STUDIES: Today's labs show WBC 11.3, hemoglobin 9.6, hematocrit 30. Sodium 133, potassium 4.7, CO2 27, BUN 38 and creatinine 3.97. Glucose 119 and calcium 8.6. MEDICATIONS: Medications are reviewed and no changes noted during the last 24 hours. PROBLEMS: 1. End-stage renal disease: Patient was dialyzed yesterday and her next dialysis will be due for Thursday. At this point, there is no emergent need for dialysis today. 2. Hyponatremia: She has mild hyponatremia, which has been stable for the last few days. No changes are needed at this point. 3. Anemia: Her anemia is related to end-stage renal disease and ongoing infection in her left foot. She received 1 unit of packed RBC's yesterday and her anemia has improved. She will continue with weekly dose of Aranesp. 4. Hypertension: Blood pressure is very well controlled at present and no changes in antihypertensives are indicated. 5. Left foot wound: She is currently not on any systemic antibiotics and continues with wound care. DISPOSITION: Patient is waiting for housing arrangement as she has no place to live. From a renal standpoint, she can be discharged whenever her social issues are resolved.
[2021-02-16 15:30] VITALS: BP 135/60
--- NOTE | 2021-02-16 18:29 | IPNPDOC ---
Subjective Date Seen The patient was seen on 02/16/21. Subjective Chief Complaint/HPI Mrs. Mireles is a 35 year old female with IDDM type 1 and ESRD on dialysis MWF who initially presented with hypertensive urgency causing flash pulmonary edema. Blood pressure have been more stable since then. Today, she denies any chest pain or dyspnea. I spoke with vascular surgery, and they request bilateral vein mapping prior to discharge. Objective Physical Examination General Exam: Positive: Alert, Cooperative Eye Exam: Positive: EOMI; Negative: Sclera icteric Neck Exam: Positive: Supple Chest Exam: Positive: Clear to auscultation Heart Exam: Positive: Rate Normal, Regular Rhythm Abdomen Exam: Positive: Normal bowel sounds, Soft; Negative: Tenderness Neuro Exam: Positive: Normal Speech Psych Exam: Positive: Mental status NL, Mood NL Assessment /Plan Assessment Mrs. Mireles is a 35 year old female with IDDM type 1 and ESRD on dialysis MWF who initially presented with hypertensive urgency causing flash pulmonary edema. Blood pressure and symptoms have been controlled since then. She does have thrombus in the right cephalic vein. No anticoagulation per vascular surgery at this time. Otherwise, vascular surgery would like to bilateral venous mapping and then to see patient outpatient for fistula placement. Otherwise, she will also need to follow up with podiatry and wound care for left foot ulceration. Plan/VTE VTE Prophylaxis Ordered?: Yes Plan 1. Hypertensive urgency with flash pulmonary edema -Blood pressure controlled. Breathing at room air -Continue amlodipine, carvedilol, clonidine, isosorbide mononitrate, minoxidil, and losartan -She has not needed PRN labetalol the past several nights 2. Diabetic left foot wound -Will need to follow up with podiatry and wound care outpatient 3. Thrombosis of right cephalic vein -Vascular surgery following, recommendations appreciated -Patient will need bilateral venous mapping before placement of new fistula. Patient to follow up outpatient 4. ESRD on dialysis MWF -Nephrology following, recommendations appreciated 5. Normocytic anemia -Received 1 unit of blood last night -Most likely anemia of chronic disease 2/2 ESRD -Monitor CBC 6. Diabetes mellitus type 1 -Continue Levemir and sliding scale insulin 7. DVT ppx -SCD and TEDs Disposition: Patient will need venous mapping prior to discharge, potentially Thursday. VS, I&O, 24H, Fishbone Vital Signs/I&O Vital Signs Date Time Temp Pulse Resp B/P (MAP) Pulse Ox O2 Delivery O2 Flow Rate FiO2 02/16/21 16:50 135/60 02/16/21 15:30 98.7 81 18 96 Room Air I&O- Last 24 Hours up to 6 AM 02/16/21 05:59 Intake Total 1620 ml Output Total 4000 ml Balance -2380 ml Laboratory Data 24H LABS Laboratory Tests 2 02/15/21 21:05: Bedside Glucose (Misc Panel) 262H 02/16/21 06:30: Nucleated Red Blood Cells % (auto) 0.2H, Anion Gap 8, Glomerular Filtration Rate 16.9L, Calcium Level 8.6 02/16/21 12:12: Bedside Glucose (Misc Panel) 145H 02/16/21 17:37: Bedside Glucose (Misc Panel) 158H CBC/BMP Laboratory Tests 02/16/21 06:30 COLIN MCLEAN DO Feb 16, 2021 18:29
[2021-02-16 20:00] VITALS: BP 167/71
[2021-02-16] MEDS: LOSARTAN 50MG TABLET PO SCH (20:26)
[2021-02-17] VITALS (9 sets, daily range): BP systolic 120–196; BP diastolic 56–91
[2021-02-17] MEDS: SODIUM CHLORIDE 0.9% INJ 10 ML SYR IV SCH ×2 (06:05→17:49)
[2021-02-17 06:08] LABS: HEMOGLOBIN 9.1 g/dl (12.0-15.5); MEAN CORPUSCULAR HEMOGLOBIN 29.7 pg (27.0-33.0); MEAN CORPUSCULAR HGB CONC 31.4 g/dl (32.0-36.5); MEAN CORPUSCULAR VOLUME 94.8 fl (80.0-96.0); PLATELET COUNT, AUTOMATED 526 10^3/uL (150-450); RED BLOOD COUNT 3.06 10^6/uL (4.00-5.40); WHITE BLOOD COUNT 10.7 10^3/uL (4.0-10.0)
[2021-02-17 07:09] LABS: CALCIUM LEVEL 8.4 MG/DL (8.5-10.1); CREATININE FOR GFR 5.6 MG/DL (0.55-1.30); GLOMERULAR FILTRATION RATE 11.3 (>60); POTASSIUM SERUM 5.3 MEQ/L (3.5-5.1)
[2021-02-17] MEDS: HumaLOG INSULIN (NovoLOG) PER UNIT SC SCH ×4 (07:26→21:00)
[2021-02-17] MEDS: LEVEMIR (INSULIN DETEMIR) 1 UNITS/0.01ML SC SCH ×2 (07:46→21:20)
[2021-02-17] MEDS: ASPIRIN 81MG ENTERIC TABLET PO SCH (08:42)
[2021-02-17] MEDS: LACTOBACILLUS ACIDOPHILUS CAP (BACID) PO SCH ×2 (08:43→17:49)
[2021-02-17] MEDS: cloNIDine 0.1MG TABLET PO SCH ×4 (08:43→21:21)
[2021-02-17] MEDS: (RENVELA) SEVELAMER **CARBONate** 800 MG TAB PO SCH ×3 (08:43→17:50)
[2021-02-17] MEDS: CARVedilol 12.5 MG TAB PO SCH ×2 (08:43→21:22)
[2021-02-17] MEDS: minoxidiL 2.5 MG TAB PO SCH ×3 (08:44→21:22)
[2021-02-17] MEDS: CALCITRIOL 0.25 MCG CAP (S0169) PO SCH (08:44)
[2021-02-17] MEDS: hydrOXYzine 25 MG TAB PO SCH ×2 (08:44→21:21)
[2021-02-17] MEDS: ISOSORBIDE MON. (IMDUR) 30 MG XR TAB PO SCH (08:44)
--- NOTE | 2021-02-17 11:17 | IPN ---
PROGRESS NOTE DATE: 02/17/2021 SUBJECTIVE: Ms. Mireles is seen this morning on her bedside. I woke her up. She said that she was feeling her blood sugar is low. I called the nursing staff and fingerstick was 44. She is being given oral glucose. The patient denies any dyspnea on exertion. She has no nausea, vomiting or diarrhea. PHYSICAL EXAMINATION: VITALS: Temperature 97 degrees Fahrenheit, heart rate 75 per minute, respiratory rate 18 per minute, blood pressure 166/84 mmHg and oxygen saturation 95% on room air. HEENT: Head is atraumatic. NECK: Supple, JVD difficult to assess. Dialysis catheter in right upper chest is present. Thyroid is mildly enlarged. LUNGS: Clear to auscultation. HEART: Sounds are regular. ABDOMEN: Soft, obese and nontender. Bowel sounds are normal. EXTREMITIES: Without any cyanosis or clubbing. NEUROLOGIC: She is awake, alert and oriented and at baseline mentation. LABORATORY STUDIES: Today's labs show sodium 134, potassium 5.3, CO2 22, BUN 57, creatinine 5.6, glucose 41 and creatinine 8.4. WBC 10.7, hemoglobin 9.1, hematocrit 29. Platelets 526. PROBLEMS: 1. End-stage renal disease: Patient is regularly dialyzed on Thursday, Thursday and Thursday schedule and will plan on dialyzing her tomorrow. 2. Hypoglycemia related to the insulin that she received and will be corrected with oral intake. In fact her blood sugar at 6:46 a.m. is up to 87. 3. Hypertension: Blood pressure seems much better now and likely to improve further with dialysis furthermore tomorrow. Recommend to continue with current antihypertensive meds. 4. Hyperkalemia: She has mild hyperkalemia for which no intervention is needed. This will be corrected with dialysis tomorrow. 5. Anemia: She has been transfused and anemia is currently stable. Will continue to manage it with dialysis. 6. Infected foot wound: She has an ulcer on her left foot and is being followed by avionics systems repairer. She is not on any systemic antibiotics at present and continues with wound care.
[2021-02-17] MEDS: NORCO, ANEXSIA 5/325MG TABLET (HYDROcodone/ACETAMINOPHEN) PO PRN ×2 (11:42→17:50)
--- NOTE | 2021-02-17 12:34 | REP ---
INDICATION: fall. COMPARISON: None. TECHNIQUE: Four views of the right hand are obtained. FINDINGS: Four views of the right hand demonstrate normal bones, joints, and soft tissues. Positioning is less than optimal due to flexion deformity of the fingers. There is mild vascular calcification in the in the distal forearm.. No opaque foreign body noted. IMPRESSION: Vascular calcification. Flexion deformity of the fingers. No fracture seen.. <Electronically signed by Kip Rizzo > 02/17/21 [id number]
--- NOTE | 2021-02-17 12:35 | REP ---
INDICATION: fall. COMPARISON: None. TECHNIQUE: Four views of the right wrist. FINDINGS: Four views of the right wrist demonstrate vascular calcification in the radial artery and distal ulnar artery. Overall mineralization pattern is normal. No fracture or subluxation is seen. IMPRESSION: Vascular calcification. No fracture seen. <Electronically signed by Kip Rizzo > 02/17/21 [id number]
--- NOTE | 2021-02-17 12:36 | REP ---
INDICATION: fall. COMPARISON: None. TECHNIQUE: AP and lateral views. FINDINGS: AP and lateral views of the right forearm demonstrate moderate soft tissue swelling over the proximal ulna. No ulnar or radial fracture is seen. There is vascular calcification noted.. . No opaque foreign body noted. IMPRESSION: Vascular calcification. Prominent soft tissue swelling of the proximal forearm adjacent to the ulna. No fracture seen.. <Electronically signed by Kip Rizzo > 02/17/21 [id number]
--- NOTE | 2021-02-17 12:37 | REP ---
INDICATION: fall. COMPARISON: None. TECHNIQUE: AP and frogleg views. FINDINGS: Proximal femur appears intact. Hip joint space is preserved. There is vascular calcification noted. No hip or left hemipelvic fracture is appreciated. IMPRESSION: No fracture seen. <Electronically signed by Kip Rizzo > 02/17/21 [id number]
--- NOTE | 2021-02-17 12:38 | REP ---
INDICATION: fall. COMPARISON: None. TECHNIQUE: AP and lateral views of the mid and distal femur. FINDINGS: Two views of the left femur demonstrate mild soft tissue swelling and diffuse vascular calcification.. No fracture or subluxation is seen. No opaque foreign body noted. There is a small periarticular cyst calcification adjacent to the upper pole of the patella which is well corticated. This is not felt to be a fracture. IMPRESSION: no fracture seen.. <Electronically signed by Kip Rizzo > 02/17/21 [id number]
--- NOTE | 2021-02-17 18:09 | IPNPDOC ---
Subjective Date Seen The patient was seen on 02/17/21. Subjective Chief Complaint/HPI Mrs. Mireles is a 35 year old female with IDDM type 1 and ESRD on dialysis MWF who initially presented with hypertensive urgency causing flash pulmonary edema. This morning, she denies any chest pain or dyspnea. She was getting up from the toilet seat when she tripped over her gown and fell. She landed with her right arm on the toilet. Denies head strike, LOC, lightheadedness or dizzines. Denied any chest pain or dyspnea. Her left leg also hurt from the fall. Her right arm and left leg was neurovascularly intact. Pulse was good and she had sensation. Imaging of the right hand, wrist, and forearm was negative for fracture. Imaging of her left hip and femur was negative for fracture. Objective Physical Examination General Exam: Positive: Alert, Cooperative Eye Exam: Positive: EOMI; Negative: Sclera icteric Neck Exam: Positive: Supple Chest Exam: Positive: Clear to auscultation Heart Exam: Positive: Rate Normal, Regular Rhythm Abdomen Exam: Positive: Normal bowel sounds, Soft; Negative: Tenderness Neuro Exam: Positive: Normal Speech Psych Exam: Positive: Mental status NL, Mood NL Assessment /Plan Assessment Mrs. Mireles is a 35 year old female with IDDM type 1 and ESRD on dialysis MWF who initially presented with hypertensive urgency causing flash pulmonary edema. Blood pressure and symptoms have been controlled since then. She does have thrombus in the right cephalic vein. No anticoagulation per vascular surgery at this time. Otherwise, vascular surgery would like to bilateral venous mapping and then to see patient outpatient for fistula placement. Otherwise, she will also need to follow up with podiatry and wound care for left foot ulceration. Plan/VTE VTE Prophylaxis Ordered?: Yes Plan 1. Hypertensive urgency with flash pulmonary edema -Blood pressure controlled. Breathing at room air -Continue amlodipine, carvedilol, clonidine, isosorbide mononitrate, minoxidil, and losartan -She has not needed PRN labetalol the past several nights 2. Diabetic left foot wound -Will need to follow up with podiatry and wound care outpatient 3. Thrombosis of right cephalic vein -Vascular surgery following, recommendations appreciated -Patient will need bilateral venous mapping before placement of new fistula. Patient to follow up outpatient 4. ESRD on dialysis MWF -Nephrology following, recommendations appreciated 5. Normocytic anemia -Received 1 unit of blood on 02/15/2021 (3 units of blood in total) -Most likely anemia of chronic disease 2/2 ESRD -Monitor CBC 6. Diabetes mellitus type 1 -Continue Levemir and sliding scale insulin 7. DVT ppx -SCD and TEDs Disposition: Patient will need venous mapping prior to discharge, potentially Thursday. VS, I&O, 24H, Fishbone Vital Signs/I&O Vital Signs Date Time Temp Pulse Resp B/P (MAP) Pulse Ox O2 Delivery O2 Flow Rate FiO2 02/17/21 17:50 18 Room Air 02/17/21 16:25 138/65 02/17/21 15:25 97.7 73 97 I&O- Last 24 Hours up to 6 AM 02/17/21 05:59 Intake Total 680 ml Balance 680 ml Laboratory Data 24H LABS Laboratory Tests 2 02/16/21 19:34: Bedside Glucose (Misc Panel) 134H 02/17/21 05:28: Nucleated Red Blood Cells % (auto) 0.0, Anion Gap 12, Glomerular Filtration Rate 11.3L, Calcium Level 8.4L 02/17/21 06:24: Bedside Glucose (Misc Panel) 44L 02/17/21 06:46: Bedside Glucose (Misc Panel) 87 02/17/21 11:38: Bedside Glucose (Misc Panel) 166H 02/17/21 16:27: Bedside Glucose (Misc Panel) 197H CBC/BMP Laboratory Tests 02/17/21 05:28 COLIN MCLEAN DO Feb 17, 2021 18:09
[2021-02-17] MEDS: LOSARTAN 50MG TABLET PO SCH (21:23)
[2021-02-18] VITALS (7 sets, daily range): BP systolic 126–146; BP diastolic 58–84
[2021-02-18] MEDS: SODIUM CHLORIDE 0.9% INJ 10 ML SYR IV SCH ×2 (05:15→18:06)
[2021-02-18 05:38] LABS: HEMATOCRIT 27.4 % (36.0-47.0); HEMOGLOBIN 8.7 g/dl (12.0-15.5); MEAN CORPUSCULAR HEMOGLOBIN 29.7 pg (27.0-33.0); MEAN CORPUSCULAR HGB CONC 31.8 g/dl (32.0-36.5); MEAN CORPUSCULAR VOLUME 93.5 fl (80.0-96.0); PLATELET COUNT, AUTOMATED 503 10^3/uL (150-450); RED BLOOD COUNT 2.93 10^6/uL (4.00-5.40); WHITE BLOOD COUNT 10.1 10^3/uL (4.0-10.0)
[2021-02-18 06:12] LABS: CALCIUM LEVEL 8.4 MG/DL (8.5-10.1); CREATININE FOR GFR 6.83 MG/DL (0.55-1.30); POTASSIUM SERUM 5.5 MEQ/L (3.5-5.1)
[2021-02-18] MEDS: HumaLOG INSULIN (NovoLOG) PER UNIT SC SCH ×4 (07:14→21:00)
[2021-02-18] MEDS: LACTOBACILLUS ACIDOPHILUS CAP (BACID) PO SCH ×2 (08:49→18:06)
[2021-02-18] MEDS: (RENVELA) SEVELAMER **CARBONate** 800 MG TAB PO SCH ×3 (08:49→18:06)
[2021-02-18] MEDS: LEVEMIR (INSULIN DETEMIR) 1 UNITS/0.01ML SC SCH ×2 (09:00→21:00)
[2021-02-18] MEDS: IRON SUCROSE 100MG 5ML VIAL (J1756 PER 1MG) IV SCH (10:19)
--- NOTE | 2021-02-18 10:54 | IPNPDOC ---
Subjective General Date/Time Seen The patient was seen on 02/18/21 at 10:46. Subject Chief Complaint/History The patient is a 35-year-old female admitted with a reason for visit of Fluid Overload. WILL Brewster was seen and examined at the bedside in dialysis this morning. She has no complaints today and there have been no issues reported overnight. Her blood sugar continues to fluctuate, as reported by nursing. Otherwise she denies any shortness of breath, chest pain, nausea, vomiting or diarrhea. OBJECTIVE VITAL SIGNS: see below GENERAL: Laying flat in bed, alert and oriented, in no apparent distress, pleasant and conversant in full sentences. HEENT: PERRL, EOMI, Oral mucous membranes are moist without lesions. NECK: The patient has no noted JVD. Tunneled dialysis catheter present. No adenopathy is appreciated. No thyromegaly CHEST/LUNGS: Lungs are clear bilaterally without rhonchi, rales, or wheezes. There is no subcutaneous air appreciated. There is no tenderness to the chest wall. HEART: Regular rate and rhythm. No murmurs, rubs, or gallops are appreciated. Distal pulses are 2+. No carotid bruits appreciated. ABDOMEN: Soft, nontender, and nondistended. Bowel sounds are positive. No organ omegaly is appreciated. No masses are appreciated. There are no peritoneal signs. There is no Valentines sign. EXTREMITIES: Trace bilateral peripheral edema. There is no focal long bone tenderness or deformity. SKIN: The patients skin is warm and dry, without rashes or lesions. PSYCHIATRIC: AAO x 3, normal mood/affect NEUROLOGIC: No obvious focal deficits IMAGING No new imaging LABS See below ASSESSMENT This is a 35 YO F with history of ESRD on HD, DM1 who presented with anasarca in setting of noncompliance with HD found also to have transaminitis with increasing alkaline phosphotase s/p liver biopsy determined to be due to congestive hepatopathy. PLAN 1. ESRD on HD: -HD today -Continue strict fluid restriction, renal diet 2. HTN: -BP controlled today, 146/84. Will continue to improve with dialysis -Continue PRN Labetalol, Losartan, Amlodipine, Coreg, Clonidine, Imdur, Minoxidil 3. Hyperkalemia: K today found to be 5.5 -Will improve with HD 3. Anemia of CKD: -Hgb today 8.7 -Continue Aranesp and venofer with HD 4. Transaminitis, attributed to congestive hepatopathy from fluid overload: -Will check another liver panel tomorrow 5. DM1, poorly controlled: -Insulin per hospitalist management 6. Hyperphosphatemia of ESRD: -Continue Renvela with meals 7. Secondary hyperparathyroidism associated with ESRD: -Continue Calcitriol 8. Diabetic foot infection: -management per primary team and podiatry DISPO: Continue HD. Patient is waiting for housing arrangement as she has no place to live. From a renal standpoint, she can be discharged whenever her social issues are resolved. Current Medications Current Medications Current Medications Medications (Trade) Dose Ordered Sig/Makenzie Route PRN Reason Start Time Stop Time Status Last Admin Dose Admin Acetaminophen (Tylenol Tab) 650 mg Q4H PRN PO PAIN OR FEVER 01/25/21 00:40 01/31/21 11:25 DC 01/31/21 05:04 Acetaminophen/ Hydrocodone Bitart ([place], Anexsia 5/325) 1 tab Q6HP PRN PO MILD/MODERATE PAIN (PS 1-7) 02/17/21 11:35 02/17/21 17:50 Al Hydrox/Mg Hydrox/Simethicone (Mylanta) 30 ml DAILY PRN PO DYSPEPSIA 01/25/21 00:40 Amlodipine Besylate (Norvasc) 10 mg DAILY PO 01/25/21 09:00 02/04/21 06:43 DC 02/03/21 09:03 Amlodipine Besylate (Norvasc) 10 mg DAILY PO 02/04/21 07:15 02/17/21 08:44 Apixaban (Eliquis) 2.5 mg BID PO 02/14/21 21:00 Cancel Aspirin (Ecotrin) 81 mg DAILY PO 01/25/21 09:00 02/17/21 08:42 Calcitriol (Rocaltrol) 0.25 mcg DAILY PO 01/25/21 09:00 02/17/21 08:44 Carvedilol (COReg) 25 mg BID PO 02/07/21 21:00 02/17/21 21:22 Clonidine HCl (Catapres) 0.1 mg BID PO 02/01/21 09:00 02/02/21 10:00 DC 02/02/21 09:09 Clonidine HCl (Catapres) 0.1 mg TID PO 02/02/21 16:00 02/05/21 05:58 DC 02/04/21 21:23 Clonidine HCl (Catapres) 0.1 mg TID PO 02/05/21 06:00 02/06/21 07:11 DC 02/05/21 21:44 Clonidine HCl (Catapres) 0.2 mg TID PO 02/06/21 09:00 02/06/21 17:20 DC 02/06/21 16:45 Clonidine HCl (Catapres) 0.3 mg TID PO 02/06/21 21:00 02/17/21 21:21 Darbepoetin [place] (Aranesp (Dialysis Use)) 100 mcg HD IV 01/30/21 08:05 02/02/21 17:58 DC 01/30/21 13:39 Darbepoetin [place] (Aranesp (Dialysis Use)) 200 mcg HD IV 02/02/21 18:00 02/06/21 13:05 DC Darbepoetin [place] (Aranesp (Dialysis Use)) 200 mcg HD IV 02/06/21 12:55 02/13/21 13:06 Dextrose (Dextrose 50%) 25 ml ASDIRECTED PRN IV SEE LABEL COMMENTS 01/25/21 01:35 02/05/21 08:05 DC 02/01/21 11:54 Dextrose (Dextrose 50%) 25 ml ASDIRECTED PRN IV SEE LABEL COMMENTS 02/05/21 08:00 02/07/21 14:51 Furosemide (Lasix) 80 mg BID PO 01/25/21 09:00 01/31/21 12:01 DC 01/31/21 09:48 Glucagon (Glucagon) 1 mg ASDIRECTED PRN SC SEE LABEL COMMENTS 01/25/21 01:35 02/05/21 08:05 DC Glucagon (Glucagon) 1 mg ASDIRECTED PRN SC SEE LABEL COMMENTS 02/05/21 08:00 Glucose (Glucose) 16 GM ASDIRECTED PRN PO SEE LABEL COMMENTS 01/25/21 01:35 02/05/21 08:05 DC Glucose (Glucose) 16 GM ASDIRECTED PRN PO SEE LABEL COMMENTS 02/05/21 08:00 Heparin Sodium (Heparin (Flush)) 200 units ASDIRECTED PRN IV SEE LABEL COMMENTS 02/07/21 16:30 Heparin Sodium (Heparin (Flush)) 200 units PICC IV 02/07/21 18:00 02/18/21 05:15 Heparin Sodium (Heparin) Please refer to ... ASDIRECTED XX 02/11/21 06:00 02/12/21 05:59 DC Heparin Sodium (Heparin) Please refer to ... ASDIRECTED XX 02/13/21 10:35 02/14/21 10:34 DC Heparin Sodium (Heparin) Please refer to ... ASDIRECTED XX 02/15/21 09:20 02/16/21 09:19 DC Heparin Sodium (Heparin) Please refer to ... ASDIRECTED XX 02/04/21 07:00 02/05/21 06:59 DC Heparin Sodium (Heparin) Please refer to ... ASDIRECTED XX 02/05/21 07:25 02/06/21 07:24 DC Heparin Sodium (Heparin) Please refer to ... ASDIRECTED XX 02/06/21 07:10 02/07/21 07:09 DC Heparin Sodium (Heparin) Please refer to ... ASDIRECTED XX 02/07/21 07:10 02/08/21 07:09 DC Heparin Sodium (Heparin) Please refer to ... ASDIRECTED XX 02/08/21 07:25 02/09/21 07:24 DC Heparin Sodium (Heparin) Please refer to ... ASDIRECTED XX 02/08/21 22:30 02/09/21 22:29 DC Heparin Sodium (Heparin) dose as per volume indica... ASDIRECTED PRN IV SEE LABEL COMMENTS 02/11/21 06:00 02/11/21 20:49 DC Heparin Sodium (Heparin) dose as per volume indica... ASDIRECTED PRN IV SEE LABEL COMMENTS 02/13/21 10:35 02/14/21 10:34 DC Heparin Sodium (Heparin) dose as per volume indica... ASDIRECTED PRN IV SEE LABEL COMMENTS 02/15/21 09:20 02/16/21 09:19 DC Heparin Sodium (Heparin) dose as per volume indica... ASDIRECTED PRN IV SEE LABEL COMMENTS 02/04/21 07:00 02/04/21 11:34 DC Heparin Sodium (Heparin) dose as per volume indica... ASDIRECTED PRN IV SEE LABEL COMMENTS 02/05/21 07:25 02/06/21 07:24 DC Heparin Sodium (Heparin) dose as per volume indica... ASDIRECTED PRN IV SEE LABEL COMMENTS 02/06/21 07:10 02/07/21 07:09 DC Heparin Sodium (Heparin) dose as per volume indica... ASDIRECTED PRN IV SEE LABEL COMMENTS 02/07/21 07:10 02/08/21 07:09 DC Heparin Sodium (Heparin) dose as per volume indica... ASDIRECTED PRN IV SEE LABEL COMMENTS 02/08/21 07:25 02/09/21 07:24 DC Heparin Sodium (Heparin) dose as per volume indica... ASDIRECTED PRN IV SEE LABEL COMMENTS 02/08/21 22:30 02/09/21 22:29 DC Heparin Sodium (Porcine) (Heparin) 5,000 units Q8H SC 01/25/21 06:00 01/31/21 11:25 DC 01/28/21 06:56 Home Med (Med Rec Complete!) ASDIRECTED XX 01/24/21 23:50 01/24/21 23:50 DC Hydralazine HCl (Apresoline) 10 mg STAT STAT IV 02/04/21 06:19 02/04/21 06:20 DC Hydralazine HCl (Apresoline) 75 mg TID PO 01/25/21 01:35 01/29/21 11:49 DC 01/29/21 09:27 Hydralazine HCl (Apresoline) 100 mg TID PO 01/29/21 16:00 02/02/21 09:50 DC 02/02/21 08:58 Hydroxyzine HCl (Atarax) 25 mg BID PO 01/31/21 21:00 02/17/21 21:21 Insulin Detemir (Levemir Insulin) 10 units BID SC 02/17/21 09:00 02/17/21 21:20 Insulin Detemir (Levemir Insulin) 10 units QHS SC 01/26/21 21:00 02/05/21 09:32 DC 02/04/21 21:24 Insulin Detemir (Levemir Insulin) 15 units BID SC 02/06/21 21:00 02/17/21 07:04 DC 02/16/21 20:26 Insulin Detemir (Levemir Insulin) 20 units BID SC 02/05/21 09:00 02/06/21 10:40 DC 02/05/21 22:01 [facility]) [facility] 01/[facility] 01:35 01/26/21 09:32 DC 01/25/21 21:29 Insulin Human Lispro (HumaLOG INSULIN) SEE PROTOCOL TABLE AC NV 01/25/21 12:00 02/04/21 08:12 DC 02/03/21 09:04 Insulin Human Lispro (HumaLOG INSULIN) SEE PROTOCOL TABLE QHS NV 01/25/21 21:00 02/04/21 08:12 DC 02/02/21 21:57 Insulin Human Lispro (HumaLOG INSULIN) See Protocol Table AC NV 02/05/21 07:30 02/17/21 17:49 Insulin Human Lispro (HumaLOG INSULIN) See [facility] 01/25/21 00:00 01/25/21 11:52 DC 01/25/21 08:23 Insulin Human Lispro (HumaLOG INSULIN) See [facility] 02/05/21 21:00 02/13/21 21:03 Insulin Human Regular 100 unit/ IV Miscellaneous Supplies 100 ml @ 0 mls/hr Q0M IV 02/04/21 01:00 02/03/21 23:53 DC Insulin Human Regular 100 unit/ IV Miscellaneous Supplies 100 ml @ 0 mls/hr Q0M IV 02/04/21 07:00 02/04/21 20:51 DC Insulin Human Regular 100 units/ Sodium Chloride 101 ml @ 0 mls/hr Q0M IV 02/04/21 01:00 02/04/21 06:30 DC 02/04/21 00:37 Iron (Venofer) 100 mg HD IV 02/09/21 09:50 02/18/21 10:19 Isosorbide Mononitrate (Imdur) 60 mg DAILY PO 01/25/21 09:00 02/05/21 17:11 DC 02/05/21 08:21 Isosorbide Mononitrate (Imdur) 90 mg DAILY PO 02/06/21 09:00 02/17/21 08:44 Labetalol HCl (Normodyne, Trandate) 10 mg Q4H PRN IV HYPERTENSION 02/05/21 11:40 02/07/21 12:16 DC 02/07/21 06:26 Labetalol HCl (Normodyne, Trandate) 10 mg STAT STAT IV 02/07/21 12:30 02/07/21 12:32 DC 02/07/21 12:41 Labetalol HCl (Normodyne, Trandate) 20 mg Q4H PRN IV HYPERTENSION 02/07/21 15:40 02/11/21 05:46 Labetalol HCl (Normodyne, Trandate) 20 mg Q6HP PRN IV HYPERTENSION 02/05/21 11:35 02/05/21 11:39 DC Labetalol HCl (Normodyne, Trandate) 20 mg STAT STAT IV 02/05/21 05:50 02/05/21 05:55 DC Lactobacillus Acidophilus (Bacid) 1 ea BIDWM PO 01/25/21 08:00 02/18/21 08:49 Lidocaine HCl (Lmx 4/Anecream) apply to right arm ASDIRECTED PRN TOP PAIN 02/01/21 18:30 02/06/21 09:27 Losartan Potassium (Cozaar) 50 mg BID PO 01/25/21 01:35 02/05/21 05:58 DC 02/04/21 21:24 Losartan Potassium (Cozaar) 50 mg BID PO 02/05/21 06:00 02/05/21 06:15 DC Losartan Potassium (Cozaar) 50 mg BID PO 02/05/21 06:00 02/07/21 08:34 DC 02/07/21 07:14 Losartan Potassium (Cozaar) 100 mg QHS PO 02/07/21 21:00 02/17/21 21:23 Magnesium Hydroxide (Milk Of Magnesia) 30 ml DAILY PRN PO CONSTIPATION 01/25/21 00:40 Metoprolol Tartrate (Lopressor) 100 mg BID PO 01/25/21 01:35 02/05/21 05:58 DC 02/04/21 21:23 Metoprolol Tartrate (Lopressor) 100 mg BID PO 02/05/21 06:00 02/07/21 10:25 DC 02/07/21 07:13 Minoxidil (Loniten) 2.5 mg BID PO 02/11/21 21:00 02/17/21 21:22 Nifedipine (Procardia Xl) 90 mg DAILY PO 01/25/21 09:00 01/29/21 11:49 DC 01/29/21 09:27 Non-Formulary Medication (Insulin Iv Rate Change Documentation ml/ Hr) ASDIRECTED XX 02/03/21 23:40 03/05/21 23:39 02/04/21 17:15 Pantoprazole Sodium (Protonix) 40 mg DAILY PO 02/02/21 09:00 02/09/21 08:59 DC 02/08/21 15:23 Prednisone (Deltasone) 40 mg DAILY PO 02/02/21 09:00 02/04/21 07:38 DC 02/04/21 06:32 Sevelamer Carbonate (Renvela) 800 mg BIDP PRN PO SNACKS 01/25/21 01:35 Sevelamer Carbonate (Renvela) 1,600 mg WM PO 01/25/21 08:00 02/18/21 08:49 Sodium Chloride (Nacl 0.9%) 200 ml ASDIRECTED PRN IV SEE LABEL COMMENTS 02/13/21 10:35 02/14/21 10:34 DC Sodium Chloride (Nacl 0.9%) 200 ml ASDIRECTED PRN IV SEE LABEL COMMENTS 02/15/21 09:20 02/16/21 09:19 DC Sodium Chloride ([place] Nasal [place]) 2 spray Q2HP PRN NA NASAL DRYNESS 01/29/21 19:00 02/01/21 08:19 Sodium Chloride (Saline Lock Flush) 10 ml ASDIRECTED PRN IV SEE LABEL COMMENTS 02/07/21 16:30 Sodium Chloride (Saline Lock Flush) 10 ml PICC IV 02/07/21 18:00 02/18/21 05:15 Allergies Coded Allergies: cinacalcet (Verified Allergy, Unknown, 11/25/20) latex (Verified Allergy, Unknown, 11/03/19) morphine (Verified Allergy, Unknown, 11/03/19) peanut (Verified Allergy, Unknown, 11/25/20) TAPE (Verified Adverse Reaction, Intermediate, IRRITATES SKIN, 11/03/19) USE PAPER TAPE ONL;Y VS,Fishbone, I+O VS, Fishbone, I+O Laboratory Tests 02/18/21 05:13 Vital Signs Date Time Temp Pulse Resp B/P (MAP) Pulse Ox O2 Delivery O2 Flow Rate FiO2 02/18/21 08:00 97.8 86 18 146/84 (104) 97 Room Air I&O- Last 24 Hours up to 6 AM 02/18/21 06:00 Intake Total 1200 ml Balance 1200 ml GME ATTESTATION GME ATTESTATION My faculty preceptor for this patient encounter was physically present during the encounter and was fully available. All aspects of the patient interview, examination, medical decision making process, and medical care plan development were reviewed and approved by the faculty preceptor. The faculty preceptor is aware and concurs with the plan as stated in the body of this note and will attest to such by his/her cosignature. DREW WASSERMAN MD Feb 18, 2021 10:54
[2021-02-18] MEDS: cloNIDine 0.1MG TABLET PO SCH ×3 (13:26→21:00)
[2021-02-18] MEDS: ASPIRIN 81MG ENTERIC TABLET PO SCH (13:50)
[2021-02-18] MEDS: ISOSORBIDE MON. (IMDUR) 30 MG XR TAB PO SCH (13:51)
[2021-02-18] MEDS: CARVedilol 12.5 MG TAB PO SCH ×2 (13:51→22:09)
[2021-02-18] MEDS: hydrOXYzine 25 MG TAB PO SCH ×2 (13:52→22:09)
[2021-02-18] MEDS: CALCITRIOL 0.25 MCG CAP (S0169) PO SCH (13:52)
[2021-02-18] MEDS: minoxidiL 2.5 MG TAB PO SCH ×2 (13:52→21:00)
--- NOTE | 2021-02-18 17:02 | IPNPDOC ---
Subjective Date Seen The patient was seen on 02/18/21. Subjective Chief Complaint/HPI Mrs. Mireles is a 35 year old female with IDDM type 1 and ESRD on dialysis MWF who initially presented with hypertensive urgency causing flash pulmonary edema. This morning, she denies any chest pain or dyspnea. She had bilateral venous mapping ordered on 02/14/[address] Nascimento, but went I called down, they did not receive it. I ordered the bilateral venous mapping again this morning. She went to dialysis this morning. I asked the nurse to see when she was scheduled to go down for the bilateral venous mapping. Ultrasound never received the order, and they were having trouble with [employer]. Plan to do bilateral venous mapping tomorrow. Objective Physical Examination General Exam: Positive: Alert, Cooperative Eye Exam: Positive: EOMI; Negative: Sclera icteric Neck Exam: Positive: Supple Chest Exam: Positive: Clear to auscultation Heart Exam: Positive: Rate Normal, Regular Rhythm Abdomen Exam: Positive: Normal bowel sounds, Soft; Negative: Tenderness Neuro Exam: Positive: Normal Speech Psych Exam: Positive: Mental status NL, Mood NL Assessment /Plan Assessment Mrs. Mireles is a 35 year old female with IDDM type 1 and ESRD on dialysis MWF who initially presented with hypertensive urgency causing flash pulmonary edema. Blood pressure and symptoms have been controlled since then. She does have thrombus in the right cephalic vein. No anticoagulation per vascular surgery at this time. Otherwise, vascular surgery would like to bilateral venous mapping and then to see patient outpatient for fistula placement. Otherwise, she will also need to follow up with podiatry and wound care for left foot ulceration. She is partial weight bearing status on the left foot. Physical therapy evaluated patient, plan to use rolling walker Plan/VTE VTE Prophylaxis Ordered?: Yes Plan 1. Hypertensive urgency with flash pulmonary edema -Blood pressure controlled. Breathing at room air -Continue amlodipine, carvedilol, clonidine, isosorbide mononitrate, minoxidil, and losartan -She has not needed PRN labetalol the past several nights 2. Diabetic left foot wound -Will need to follow up with podiatry and wound care outpatient 3. Thrombosis of right cephalic vein -Vascular surgery following, recommendations appreciated -Patient will need bilateral venous mapping before placement of new fistula. Patient to follow up outpatient with Dr. Nascimento 4. ESRD on dialysis MWF -Nephrology following, recommendations appreciated 5. Normocytic anemia -Received 1 unit of blood on 02/15/2021 (3 units of blood in total) -Most likely anemia of chronic disease 2/2 ESRD -Monitor CBC 6. Diabetes mellitus type 1 -Continue Levemir and sliding scale insulin 7. DVT ppx -SCD and TEDs Disposition: Anticipate discharge tomorrow after bilateral venous mapping VS, I&O, 24H, Fishbone Vital Signs/I&O Vital Signs Date Time Temp Pulse Resp B/P (MAP) Pulse Ox O2 Delivery O2 Flow Rate FiO2 02/18/21 13:50 90 145/78 02/18/21 13:00 98.4 20 96 Room Air I&O- Last 24 Hours up to 6 AM 02/18/21 06:00 Intake Total 1200 ml Balance 1200 ml Laboratory Data 24H LABS Laboratory Tests 2 02/17/21 20:36: Bedside Glucose (Misc Panel) 197H 02/18/21 05:13: Nucleated Red Blood Cells % (auto) 0.0, Anion Gap 13, Glomerular Filtration Rate 9.0L, Calcium Level 8.4L 02/18/21 13:44: Bedside Glucose (Misc Panel) 166H 02/18/21 16:46: Bedside Glucose (Misc Panel) 280H CBC/BMP Laboratory Tests 02/18/21 05:13 COLIN MCLEAN DO Feb 18, 2021 17:02
[2021-02-18] MEDS: NORCO, ANEXSIA 5/325MG TABLET (HYDROcodone/ACETAMINOPHEN) PO PRN (18:06)
[2021-02-18] MEDS ORDERED: LEVEMIR (INSULIN DETEMIR) 1 UNITS/0.01ML SC ONE ×2 (21:50→23:50)
[2021-02-18] MEDS: LOSARTAN 50MG TABLET PO SCH (22:08)
[2021-02-19] VITALS: BP 126/60
[2021-02-19 04:00] VITALS: BP 123/67
[2021-02-19 04:37] LABS: HEMATOCRIT 26.8 % (36.0-47.0); HEMOGLOBIN 8.5 g/dl (12.0-15.5); MEAN CORPUSCULAR HEMOGLOBIN 29.7 pg (27.0-33.0); MEAN CORPUSCULAR HGB CONC 31.7 g/dl (32.0-36.5); MEAN CORPUSCULAR VOLUME 93.7 fl (80.0-96.0); PLATELET COUNT, AUTOMATED 481 10^3/uL (150-450); RED BLOOD COUNT 2.86 10^6/uL (4.00-5.40); WHITE BLOOD COUNT 9.2 10^3/uL (4.0-10.0)
[2021-02-19 05:22] LABS: CALCIUM LEVEL 7.9 MG/DL (8.5-10.1); CREATININE FOR GFR 4.92 MG/DL (0.55-1.30); GLOMERULAR FILTRATION RATE 13.1 (>60)
[2021-02-19] MEDS: SODIUM CHLORIDE 0.9% INJ 10 ML SYR IV SCH (05:37)
[2021-02-19] MEDS: DEXTROSE 50% 50 ML SYRINGE IV PRN (06:26)
[2021-02-19] MEDS: HumaLOG INSULIN (NovoLOG) PER UNIT SC SCH ×2 (07:30→12:30)
[2021-02-19 08:00] VITALS: BP 148/67
[2021-02-19 09:11] VITALS: BP 148/67
[2021-02-19] MEDS: hydrOXYzine 25 MG TAB PO SCH (09:11)
[2021-02-19] MEDS: (RENVELA) SEVELAMER **CARBONate** 800 MG TAB PO SCH ×2 (09:11→12:31)
[2021-02-19] MEDS: CALCITRIOL 0.25 MCG CAP (S0169) PO SCH (09:11)
[2021-02-19] MEDS: ISOSORBIDE MON. (IMDUR) 30 MG XR TAB PO SCH (09:11)
[2021-02-19] MEDS: LACTOBACILLUS ACIDOPHILUS CAP (BACID) PO SCH (09:12)
[2021-02-19] MEDS: cloNIDine 0.1MG TABLET PO SCH (09:13)
[2021-02-19] MEDS: ASPIRIN 81MG ENTERIC TABLET PO SCH (09:13)
[2021-02-19] MEDS: CARVedilol 12.5 MG TAB PO SCH (09:14)
[2021-02-19] MEDS: minoxidiL 2.5 MG TAB PO SCH (09:14)
--- NOTE | 2021-02-19 09:53 | REP ---
INDICATION: vein mapping bilaterally.. COMPARISON: None. TECHNIQUE: Bilateral upper extremity arterial and venous Doppler examination. Vein mapping study. FINDINGS: Occlusive thrombosis is seen throughout the right cephalic vein. Mild atherosclerotic changes are noted in the arterial tree. Monophasic waveform is noted in the radial artery Doppler tracing on the left. Otherwise normal triphasic waveforms are seen in the arteries. No other evidence of venous thrombosis. Right upper extremity vein diameter chart: Right upper basilic vein, 5.7 mm Lower basilic vein 5.7 mm Upper forearm basilic vein 3.8 mm Lower forearm basilic 1.6 mm Median cubital vein 5.4 mm Left upper extremity vein diameter chart: Left upper humerus level basilic 6.1 mm, cephalic 4.6 mm Lower humerus basilic 4.7 mm, cephalic 4.2 mm Upper forearm basilic 2.5 mm, cephalic 3.4 mm Lower forearm and wrist basilic 1.6 mm, cephalic 2.1 mm Median cubital vein 2.6 mm Right upper extremity arterial Doppler velocity and diameter chart: Right axillary artery PSV 132 cm/S5 0.8 mm Brachial artery 150 cm/S4 0.6 mm Radial artery 107 cm/S, 2.1 mm Ulnar artery 105 cm/S, 1.3 mm Left upper extremity arterial Doppler velocity and diameter chart: Left axillary artery PSV 136 cm/S, 5.2 mm Brachial artery 109 cm/S, 4.3 mm Radial artery 124 0.7 cm/S, 1.5 mm Ulnar artery 99 cm/S, 0.8 mm IMPRESSION: Occlusive thrombosis is seen throughout the right cephalic vein. Vein mapping and arterial Doppler study as above. <Electronically signed by Kip Rizzo > 02/19/21 0901
[2021-02-19] MEDS: NORCO, ANEXSIA 5/325MG TABLET (HYDROcodone/ACETAMINOPHEN) PO PRN (10:55)
[2021-02-19] MEDS ORDERED: ISOS1TAB35 PO (10:57)
[2021-02-19] MEDS ORDERED: MINO2.5T PO (10:57)
[2021-02-19] MEDS ORDERED: CARV12.5 PO (10:57)
[2021-02-19] MEDS ORDERED: 3 SEMIS2 XX (10:57)
[2021-02-19] MEDS ORDERED: LOSA100T50 PO (10:57)
[2021-02-19] MEDS ORDERED: BASA100I SC (10:57)
[2021-02-19] MEDS ORDERED: CLONI1TA PO (10:57)
--- NOTE | 2021-02-19 11:00 | IPNPDOC ---
Subjective General Date/Time Seen The patient was seen on 02/19/21 at 10:55. Subject Chief Complaint/History The patient is a 35-year-old female admitted with a reason for visit of Fluid Overload. WILL Brewster was seen and examined at the bedside this morning. She has no complaints. No issues reported overnight. She thinks she may be able to be discharged today as discharge planning has found a place for her to live. BP has improved and is 148/67 today. OBJECTIVE VITAL SIGNS: see below GENERAL: Sitting up in bed, alert and oriented, in no apparent distress, pleasant and conversant in full sentences. HEENT: PERRL, EOMI, Oral mucous membranes are moist without lesions. NECK: The patient has no noted JVD. Tunneled dialysis catheter present. No adenopathy is appreciated. No thyromegaly CHEST/LUNGS: Lungs are clear bilaterally without rhonchi, rales, or wheezes. There is no subcutaneous air appreciated. There is no tenderness to the chest wall. HEART: Regular rate and rhythm. No murmurs, rubs, or gallops are appreciated. Distal pulses are 2+. No carotid bruits appreciated. ABDOMEN: Soft, nontender, and nondistended. Bowel sounds are positive. No organomegaly is appreciated. No masses are appreciated. There are no peritoneal signs. There is no Johnson sign. EXTREMITIES: Trace bilateral peripheral edema. There is no focal long bone tenderness or deformity. SKIN: The patients skin is warm and dry, without rashes or lesions. PSYCHIATRIC: AAO x 3, normal mood/affect NEUROLOGIC: No obvious focal deficits IMAGING BILATERAL VEIN MAPPING PRE AVF 02/18/21: IMPRESSION: Occlusive thrombosis is seen throughout the right cephalic vein. Vein mapping and arterial Doppler study as above. LABS See below ASSESSMENT This is a 35 YO F with history of ESRD on HD, DM1 who presented with anasarca in setting of noncompliance with HD found also to have transaminitis with increasing alkaline phosphotase s/p liver biopsy determined to be due to congestive hepatopathy. PLAN 1. ESRD on HD: -Next HD tomorrow -Continue strict fluid restriction, renal diet 2. HTN: -BP controlled today, 148/67. Will continue to improve with dialysis -Continue PRN Labetalol, Losartan, Amlodipine, Coreg, Clonidine, Imdur, Minoxidil -Will need to ensure patient has access to these medications after discharge 3. Hyperkalemia: K today found to be 5.0 -Will improve with HD tomorrow 3. Anemia of CKD: -Hgb today 8.5 -Continue Aranesp and venofer with HD 4. Transaminitis, attributed to congestive hepatopathy from fluid overload: -Will check another liver panel tomorrow 5. DM1, poorly controlled: -Insulin per hospitalist management 6. Hyperphosphatemia of ESRD: -Continue Renvela with meals 7. Secondary hyperparathyroidism associated with ESRD: -Continue Calcitriol 8. Diabetic foot infection: -management per primary team and podiatry DISPO: Continue HD. Patient is waiting for housing arrangement as she has no place to live. From a renal standpoint, she can be discharged whenever her social issues are resolved. Current Medications Current Medications Current Medications Medications (Trade) Dose Ordered Sig/Makenzie Route PRN Reason Start Time Stop Time Status Last Admin Dose Admin Acetaminophen (Tylenol Tab) 650 mg Q4H PRN PO PAIN OR FEVER 01/25/21 00:40 01/31/21 11:25 DC 01/31/21 05:04 Acetaminophen/ Hydrocodone Bitart ([place], [place]nexsia 5/325) 1 tab Q6HP PRN PO MILD/MODERATE PAIN (PS 1-7) 02/17/21 11:35 02/18/21 18:06 Al Hydrox/Mg Hydrox/Simethicone (Mylanta) 30 ml DAILY PRN PO DYSPEPSIA 01/25/21 00:40 Amlodipine Besylate (Norvasc) 10 mg DAILY PO 01/25/21 09:00 02/04/21 06:43 DC 02/03/21 09:03 Amlodipine Besylate (Norvasc) 10 mg DAILY PO 02/04/21 07:15 02/19/21 09:11 Apixaban (Eliquis) 2.5 mg BID PO 02/14/21 21:00 Cancel Aspirin (Ecotrin) 81 mg DAILY PO 01/25/21 09:00 02/19/21 09:13 Calcitriol (Rocaltrol) 0.25 mcg DAILY PO 01/25/21 09:00 02/19/21 09:11 Carvedilol (COReg) 25 mg BID PO 02/07/21 21:00 02/19/21 09:14 Clonidine HCl (Catapres) 0.1 mg BID PO 02/01/21 09:00 02/02/21 10:00 DC 02/02/21 09:09 Clonidine HCl (Catapres) 0.1 mg TID PO 02/02/21 16:00 02/05/21 05:58 DC 02/04/21 21:23 Clonidine HCl (Catapres) 0.1 mg TID PO 02/05/21 06:00 02/06/21 07:11 DC 02/05/21 21:44 Clonidine HCl (Catapres) 0.2 mg TID PO 02/06/21 09:00 02/06/21 17:20 DC 02/06/21 16:45 Clonidine HCl (Catapres) 0.3 mg TID PO 02/06/21 21:00 02/19/21 09:13 Darbepoetin [place] (Aranesp (Dialysis Use)) 100 mcg HD IV 01/30/21 08:05 02/02/21 17:58 DC 01/30/21 13:39 Darbepoetin [place] (Aranesp (Dialysis Use)) 200 mcg HD IV 02/02/21 18:00 02/06/21 13:05 DC Darbepoetin [place] (Aranesp (Dialysis Use)) 200 mcg HD IV 02/06/21 12:55 02/13/21 13:06 Dextrose (Dextrose 50%) 25 ml ASDIRECTED PRN IV SEE LABEL COMMENTS 01/25/21 01:35 02/05/21 08:05 DC 02/01/21 11:54 Dextrose (Dextrose 50%) 25 ml ASDIRECTED PRN IV SEE LABEL COMMENTS 02/05/21 08:00 02/19/21 06:26 Furosemide (Lasix) 80 mg BID PO 01/25/21 09:00 01/31/21 12:01 DC 01/31/21 09:48 Glucagon (Glucagon) 1 mg ASDIRECTED PRN SC SEE LABEL COMMENTS 01/25/21 01:35 02/05/21 08:05 DC Glucagon (Glucagon) 1 mg ASDIRECTED PRN SC SEE LABEL COMMENTS 02/05/21 08:00 Glucose (Glucose) 16 GM ASDIRECTED PRN PO SEE LABEL COMMENTS 01/25/21 01:35 02/05/21 08:05 DC Glucose (Glucose) 16 GM ASDIRECTED PRN PO SEE LABEL COMMENTS 02/05/21 08:00 Heparin Sodium (Heparin (Flush)) 200 units ASDIRECTED PRN IV SEE LABEL COMMENTS 02/07/21 16:30 Heparin Sodium (Heparin (Flush)) 200 units PICC IV 02/07/21 18:00 02/19/21 05:38 Heparin Sodium (Heparin) Please refer to ... ASDIRECTED XX 02/11/21 06:00 02/12/21 05:59 DC Heparin Sodium (Heparin) Please refer to ... ASDIRECTED XX 02/13/21 10:35 02/14/21 10:34 DC Heparin Sodium (Heparin) Please refer to ... ASDIRECTED XX 02/15/21 09:20 02/16/21 09:19 DC Heparin Sodium (Heparin) Please refer to ... ASDIRECTED XX 02/04/21 07:00 02/05/21 06:59 DC Heparin Sodium (Heparin) Please refer to ... ASDIRECTED XX 02/05/21 07:25 02/06/21 07:24 DC Heparin Sodium (Heparin) Please refer to ... ASDIRECTED XX 02/06/21 07:10 02/07/21 07:09 DC Heparin Sodium (Heparin) Please refer to ... ASDIRECTED XX 02/07/21 07:10 02/08/21 07:09 DC Heparin Sodium (Heparin) Please refer to ... ASDIRECTED XX 02/08/21 07:25 02/09/21 07:24 DC Heparin Sodium (Heparin) Please refer to ... ASDIRECTED XX 02/08/21 22:30 02/09/21 22:29 DC Heparin Sodium (Heparin) dose as per volume indica... ASDIRECTED PRN IV SEE LABEL COMMENTS 02/11/21 06:00 02/11/21 20:49 DC Heparin Sodium (Heparin) dose as per volume indica... ASDIRECTED PRN IV SEE LABEL COMMENTS 02/13/21 10:35 02/14/21 10:34 DC Heparin Sodium (Heparin) dose as per volume indica... ASDIRECTED PRN IV SEE LABEL COMMENTS 02/15/21 09:20 02/16/21 09:19 DC Heparin Sodium (Heparin) dose as per volume indica... ASDIRECTED PRN IV SEE LABEL COMMENTS 02/04/21 07:00 02/04/21 11:34 DC Heparin Sodium (Heparin) dose as per volume indica... ASDIRECTED PRN IV SEE LABEL COMMENTS 02/05/21 07:25 02/06/21 07:24 DC Heparin Sodium (Heparin) dose as per volume indica... ASDIRECTED PRN IV SEE LABEL COMMENTS 02/06/21 07:10 02/07/21 07:09 DC Heparin Sodium (Heparin) dose as per volume indica... ASDIRECTED PRN IV SEE LABEL COMMENTS 02/07/21 07:10 02/08/21 07:09 DC Heparin Sodium (Heparin) dose as per volume indica... ASDIRECTED PRN IV SEE LABEL COMMENTS 02/08/21 07:25 02/09/21 07:24 DC Heparin Sodium (Heparin) dose as per volume indica... ASDIRECTED PRN IV SEE LABEL COMMENTS 02/08/21 22:30 02/09/21 22:29 DC Heparin Sodium (Porcine) (Heparin) 5,000 units Q8H SC 01/25/21 06:00 01/31/21 11:25 DC 01/28/21 06:56 Home Med (Med Rec Complete!) ASDIRECTED XX 01/24/21 23:50 01/24/21 23:50 DC Hydralazine HCl (Apresoline) 10 mg STAT STAT IV 02/04/21 06:19 02/04/21 06:20 DC Hydralazine HCl (Apresoline) 75 mg TID PO 01/25/21 01:35 01/29/21 11:49 DC 01/29/21 09:27 Hydralazine HCl (Apresoline) 100 mg TID PO 01/29/21 16:00 02/02/21 09:50 DC 02/02/21 08:58 Hydroxyzine HCl (Atarax) 25 mg BID PO 01/31/21 21:00 02/19/21 09:11 Insulin Detemir (Levemir Insulin) 10 units BID SC 02/17/21 09:00 02/19/21 07:14 DC 02/17/21 21:20 Insulin Detemir (Levemir Insulin) 10 units QHS SC 01/26/21 21:00 02/05/21 09:32 DC 02/04/21 21:24 Insulin Detemir (Levemir Insulin) 15 units BID IN 02/06/21 21:00 02/17/21 07:04 DC 02/16/21 20:26 Insulin Detemir (Levemir Insulin) 20 units BID IN 02/05/21 09:00 02/06/21 10:40 DC 02/05/21 22:01 Insulin Detemir (Levemir Insulin) 25 units [facility] 01/25/21 01:35 01/26/21 09:32 DC 01/25/21 21:29 Insulin Human Lispro (HumaLOG INSULIN) SEE PROTOCOL TABLE AC IN 01/25/21 12:00 02/04/21 08:12 DC 02/03/21 09:04 Insulin Human Lispro (HumaLOG [facility]ULIN) [facility] 21:00 02/04/21 08:12 DC 02/02/21 21:57 Insulin Human Lispro (HumaLOG INSULIN) See Protocol Table AC IN 02/05/21 07:30 02/18/21 18:35 Insulin Human Lispro (HumaLOG INSULIN) See Protocol Table Q6H IN 01/25/21 00:00 01/25/21 11:52 DC 01/25/21 08:23 Insulin Human Lispro (HumaLOG INSULIN) See Protocol Table QHS IN 02/05/21 21:00 02/13/21 21:03 Insulin Human Regular 100 unit/ IV Miscellaneous Supplies 100 ml @ 0 mls/hr Q0M IV 02/04/21 01:00 02/03/21 23:53 DC Insulin Human Regular 100 unit/ IV Miscellaneous Supplies 100 ml @ 0 mls/hr Q0M IV 02/04/21 07:00 02/04/21 20:51 DC Insulin Human Regular 100 units/ Sodium Chloride 101 ml @ 0 mls/hr Q0M IV 02/04/21 01:00 02/04/21 06:30 DC 02/04/21 00:37 Iron (Venofer) 100 mg HD IV 02/09/21 09:50 02/18/21 10:19 Isosorbide Mononitrate (Imdur) 60 mg DAILY PO 01/25/21 09:00 02/05/21 17:11 DC 02/05/21 08:21 Isosorbide Mononitrate (Imdur) 90 mg DAILY PO 02/06/21 09:00 02/19/21 09:11 Labetalol HCl (Normodyne, Trandate) 10 mg Q4H PRN IV HYPERTENSION 02/05/21 11:40 02/07/21 12:16 DC 02/07/21 06:26 Labetalol HCl (Normodyne, Trandate) 10 mg STAT STAT IV 02/07/21 12:30 02/07/21 12:32 DC 02/07/21 12:41 Labetalol HCl (Normodyne, Trandate) 20 mg Q4H PRN IV HYPERTENSION 02/07/21 15:40 02/11/21 05:46 Labetalol HCl (Normodyne, Trandate) 20 mg Q6HP PRN IV HYPERTENSION 02/05/21 11:35 02/05/21 11:39 DC Labetalol HCl (Normodyne, Trandate) 20 mg STAT STAT IV 02/05/21 05:50 02/05/21 05:55 DC Lactobacillus Acidophilus (Bacid) 1 ea BIDWM PO 01/25/21 08:00 02/19/21 09:12 Lidocaine HCl (Lmx 4/Anecream) apply to right arm ASDIRECTED PRN TOP PAIN 02/01/21 18:30 02/06/21 09:27 Losartan Potassium (Cozaar) 50 mg BID PO 01/25/21 01:35 02/05/21 05:58 DC 02/04/21 21:24 Losartan Potassium (Cozaar) 50 mg BID PO 02/05/21 06:00 02/05/21 06:15 DC Losartan Potassium (Cozaar) 50 mg BID PO 02/05/21 06:00 02/07/21 08:34 DC 02/07/21 07:14 Losartan Potassium (Cozaar) 100 mg QHS PO 02/07/21 21:00 02/18/21 22:08 Magnesium Hydroxide (Milk Of Magnesia) 30 ml DAILY PRN PO CONSTIPATION 01/25/21 00:40 Metoprolol Tartrate (Lopressor) 100 mg BID PO 01/25/21 01:35 02/05/21 05:58 DC 02/04/21 21:23 Metoprolol Tartrate (Lopressor) 100 mg BID PO 02/05/21 06:00 02/07/21 10:25 DC 02/07/21 07:13 Minoxidil (Loniten) 2.5 mg BID PO 02/11/21 21:00 02/19/21 09:14 Nifedipine (Procardia Xl) 90 mg DAILY PO 01/25/21 09:00 01/29/21 11:49 DC 01/29/21 09:27 Non-Formulary Medication (Insulin Iv Rate Change Documentation ml/ Hr) ASDIRECTED XX 02/03/21 23:40 03/05/21 23:39 02/04/21 17:15 Pantoprazole Sodium (Protonix) 40 mg DAILY PO 02/02/21 09:00 02/09/21 08:59 DC 02/08/21 15:23 Prednisone (Deltasone) 40 mg DAILY PO 02/02/21 09:00 02/04/21 07:38 DC 02/04/21 06:32 Sevelamer Carbonate (Renvela) 800 mg BIDP PRN PO SNACKS 01/25/21 01:35 Sevelamer Carbonate (Renvela) 1,600 mg WM PO 01/25/21 08:00 02/19/21 09:11 Sodium Chloride (Nacl 0.9%) 200 ml ASDIRECTED PRN IV SEE LABEL COMMENTS 02/13/21 10:35 02/14/21 10:34 DC Sodium Chloride (Nacl 0.9%) 200 ml ASDIRECTED PRN IV SEE LABEL COMMENTS 02/15/21 09:20 02/16/21 09:19 DC Sodium Chloride ([place] Nasal [place]) 2 spray Q2HP PRN NA NASAL DRYNESS 01/29/21 19:00 02/01/21 08:19 Sodium Chloride (Saline Lock Flush) 10 ml ASDIRECTED PRN IV SEE LABEL COMMENTS 02/07/21 16:30 Sodium Chloride (Saline Lock Flush) 10 ml PICC IV 02/07/21 18:00 02/19/21 05:37 Allergies Coded Allergies: cinacalcet (Verified Allergy, Unknown, 11/25/20) latex (Verified Allergy, Unknown, 11/03/19) morphine (Verified Allergy, Unknown, 11/03/19) peanut (Verified Allergy, Unknown, 11/25/20) TAPE (Verified Adverse Reaction, Intermediate, IRRITATES SKIN, 11/03/19) USE PAPER TAPE ONL;Y VS,Fishbone, I+O VS, Fishbone, I+O Laboratory Tests 02/19/21 04:27 Vital Signs Date Time Temp Pulse Resp B/P (MAP) Pulse Ox O2 Delivery O2 Flow Rate FiO2 02/19/21 09:11 148/67 02/19/21 09:11 79 02/19/21 08:00 98.3 17 96 Room Air I&O- Last 24 Hours up to 6 AM 02/19/21 06:00 Intake Total 1710 ml Output Total 3000 ml Balance -1290 ml GME ATTESTATION GME ATTESTATION My faculty preceptor for this patient encounter was physically present during the encounter and was fully available. All aspects of the patient interview, examination, medical decision making process, and medical care plan development were reviewed and approved by the faculty preceptor. The faculty preceptor is aware and concurs with the plan as stated in the body of this note and will attest to such by his/her cosignature. DREW WASSERMAN MD Feb 19, 2021 11:00
[2021-02-19 12:00] VITALS: BP 129/62
--- NOTE | 2021-02-19 23:09 | DS.PDOC ---
Discharge Summary General Date of Admission Jan 25, 2021 at 00:40 Date of Discharge Feb 19, 2021 Specialist/Consultants [facility], Dr. Júnior Bates, Dr. Vitale, Dr. Kitty Bates Podiatry, Dr. Mondragon Vascular surgery, Dr. Nascimento Discharge Summary PROCEDURES PERFORMED DURING STAY: Liver biopsy ADMITTING DIAGNOSES: 1. Hypertensive urgency 2. Pulmonary hypertension 3. SIRS 4. Iron deficiency anemia 5. ESRD 6. IDDM type 1 with neuropathy, proliferative retinopathy DISCHARGE DIAGNOSES: 1. Hypertensive urgency 2. Pulmonary hypertension 3. SIRS 4. Iron deficiency anemia 5. ESRD 6. IDDM type 1 with neuropathy, proliferative retinopathy 7. Diabetic left foot wound 8. Thrombosis of right cephalic vein COMPLICATIONS/CHIEF COMPLAINT: Fluid Overload. HISTORY OF PRESENT ILLNESS: Ms. Mireles is a 35 year old female with ESRD on dialysis MWF and IDDM type 1 who presents with dyspnea, chest pain, and diarrhea. She does drink a lot of water and is non-compliant with medications. Patient was admitted for chest pain and dyspnea. HOSPITAL COURSE: During patient's hospital stay, her fluid status was optimized and blood pressure was controlled. Unfortunately, DSS would not be able to pay for her rent and she would be homeless. [facility] worked on housing for the patient. Otherwise, patient had abnormally elevated alkaline phosphatase. An extensive work up was performed. Liver biopsy just suggested venous outflow obstruction such as CHF. Her abnormal labs may be drug induced hepatitis from hydralazine. Hydralazine was discontinued. Patient had recently had osteomyelitis, and Dr. Mondragon revisited patient for debridement of left foot ulcer. Recommended continuing following up with Dr. Mondragon and Dr. Espinosa. Otherwise, patient had fistula thrombosis and Dr. Man sethi evaluated patient. Patient did not need anticoagulation for the thrombosed fistula, but did recommend obtaining venous mapping for new fistula planning. Today, patient felt well and felt ready for home. She is going to stay had her brother's place. DISCHARGE MEDICATIONS: Please see below. ALLERGIES: Please see below. PHYSICAL EXAMINATION ON DISCHARGE: VITAL SIGNS: Please see below. GENERAL: Comfortable, in no apparent distress HEENT: Head normocephalic, atraumatic NECK: Supple CARDIOVASCULAR EXAMINATION: Regular rate and rhythm RESPIRATORY EXAMINATION: Lungs clear to auscultation bilaterally ABDOMINAL EXAMINATION: Soft, non-tender, normal bowel sounds NEUROLOGICAL EXAMINATION: CN 3-12 grossly intact PSYCHIATRIC EXAMINATION: Normal mood and affect LABORATORY DATA: Please see below. IMAGING: Radiologist interpretation CTA chest 1. Left greater than right diffuse ground-glass opacities and linear interstitial thickening suggesting pulmonary edema. 2. No other airspace consolidation. 3. Pulmonary embolism. 4. Cardiomegaly. Liver MRI Hepatomegaly, diffuse edematous changes in the soft tissues outside the abdomen. Homogeneous low signal intensity throughout the liver. Periportal edema pattern. This is nonspecific and can be seen in hepatitis, CHF, cholangitis, liver and bone marrow transplantation states and blunt trauma. MRCP sequence was of poor uninterpretable quality but bile ducts do not appear dilated based on T2 weighted imaging. HIDA Findings consistent with advanced cholestasis. Poor hepatocellular parenchymal washout. Gallbladder is visualized in a normal time interval and there is some radiotracer in the small intestine. This mitigates against biliary obstruction. PROGNOSIS: Good ACTIVITY: Partial weight bearing on left foot, use rolling walker DIET: Renal and consistent carb diet DISCHARGE PLAN: Home with home services DISPOSITION: Home Health Service. DISCHARGE INSTRUCTIONS: 1. Follow up with PCP within 1 week 2. Follow up with Dr. Nascimento in 1 to 2 weeks 3. Follow up with nephrology in 1 week 4. Follow up with Dr. Mondragon in 1 week 5. Follow up with Dr. Espinosa in 1 week ITEMS TO FOLLOWUP ON ON OUTPATIENT: 1. Would recommend repeat CMP or liver profile to monitor alk phos and liver enzymes DISCHARGE CONDITION: Stable. Total time spent on discharge planning, discharge summary, and medication reconciliation: 60 minutes Vital Signs/I&Os Vital Signs Date Time Temp Pulse Resp B/P (MAP) Pulse Ox O2 Delivery O2 Flow Rate FiO2 02/19/21 12:00 97.5 78 18 129/62 (84) 98 Room Air I&O- Last 24 Hours up to 6 AM 02/19/21 06:00 Intake Total 1710 ml Output Total 3000 ml Balance -1290 ml Laboratory Data Labs 24H Laboratory Tests 2 02/18/21 23:46: Bedside Glucose (Misc Panel) 120H 02/19/21 04:27: Nucleated Red Blood Cells % (auto) 0.0, Anion Gap 10, Glomerular Filtration Rate 13.1L, Calcium Level 7.9L 02/19/21 06:23: Bedside Glucose (Misc Panel) 45L 02/19/21 06:52: Bedside Glucose (Misc Panel) 90 02/19/21 11:47: Bedside Glucose (Misc Panel) 158H CBC/BMP Laboratory Tests 02/19/21 04:27 FSBS Laboratory Tests Test 02/18/21 23:46 02/19/21 06:23 02/19/21 06:52 02/19/21 11:47 Range/Units Bedside Glucose (Misc Panel) 120 45 90 158 70-105 MG/DL Discharge Medications Scheduled Amlodipine Besylate (Amlodipine Besylate) 10 Mg Tablet, 10 MG PO DAILY, (Reported) Aspirin (Aspirin EC) 81 Mg Tablet.dr, 81 MG PO DAILY, (Reported) Calcitriol (Calcitriol) 0.25 Mcg Capsule, 0.25 MCG PO DAILY, (Reported) Carvedilol (Carvedilol) 12.5 Mg Tablet, 25 MG PO BID Clonidine Hcl (Clonidine HCl) 0.1 Mg Tablet, 0.3 MG PO TID Ergocalciferol (Vitamin D2) (Vitamin D2) 50,000 Units Cap, 50,000 UNITS PO QWEEK, (Reported) THURSDAY Insulin Glargine,Hum.rec.anlog (Basaglar Kwikpen U-100) 100 Unit/1 Ml Insuln.pen, 5 UNIT SC QHS Insulin Human Lispro (Novolog) 100 Unit/1 Ml Vial, 1 DOSE SC AC, (Reported) PER SLIDING SCALE Isosorbide Mononitrate (Isosorbide Mononitrate ER) 30 Mg Tab.er.24h, 90 MG PO DAILY L.acidoph/L.bulg/B.bif/S.therm (Tonja-Bid Caplet) 1 Each Tablet, 1 TAB PO BIDWM, (Reported) Losartan Potassium (Losartan Potassium) 100 Mg Tablet, 100 MG PO QHS Minoxidil (Minoxidil) 2.5 Mg Tablet, 2.5 MG PO BID Sevelamer Carbonate (Sevelamer Carbonate) 800 Mg Tablet, 1,600 MG PO WM, (Reported) WITH MEALS Scheduled PRN Sevelamer Carbonate (Sevelamer Carbonate) 800 Mg Tablet, 800 MG PO BID PRN for SNACKS, (Reported) Miscellaneous Medications [Patient Comment] , (Reported) MED REC COMPLETE VIA PREVIOUS DISCHARGE PAPERWORK (01/23/21) Allergies Coded Allergies: cinacalcet (Verified Allergy, Unknown, 1/24/21) latex (Verified Allergy, Unknown, 11/03/19) morphine (Verified Allergy, Unknown, 11/03/19) peanut (Verified Allergy, Unknown, 11/25/20) TAPE (Verified Adverse Reaction, Intermediate, IRRITATES SKIN, 11/03/19) USE PAPER TAPE ONL;COLIN CLARK DO Feb 19, 2021 23:09
== END 2021-02-19 14:36 | disposition home health service (06) | DRG 166 ==
LOC: M ED 18:30 → M ED INP 01-25 00:40 → ENRESERV 01-25 02:41 → M MSPAV 01-25 04:55 → M ICU 02-04 00:16 → M PCU 02-05 16:25
PROVIDERS: ADMIT Internal Medicine; ATTEND Internal Medicine
PROC: 5A1D70Z Performance of Urinary Filtration, Intermittent, Less than 6 Hours Per Day (ICD-10-PCS; 2021-01-25)
PROC: 02HV33Z Insertion of Infusion Device into Superior Vena Cava, Percutaneous Approach (ICD-10-PCS; 2021-02-07)
PROC: 0FB23ZX Excision of Left Lobe Liver, Percutaneous Approach, Diagnostic (ICD-10-PCS; 2021-02-07)
PROC: 0JBR0ZZ Excision of Left Foot Subcutaneous Tissue and Fascia, Open Approach (ICD-10-PCS; principal; 2021-02-11)
PROC: 30233N1 Transfusion of Nonautologous Red Blood Cells into Peripheral Vein, Percutaneous Approach (ICD-10-PCS; 2021-02-15)
DX: J81.0 Acute pulmonary edema (principal); N18.6 End stage renal disease; K83.1 Obstruction of bile duct; I13.2 Hypertensive heart and chronic kidney disease with heart failure and with stage 5 chronic kidney disease, or end stage renal disease; E87.1 Hypo-osmolality and hyponatremia; B17.9 Acute viral hepatitis, unspecified; T82.868A Thrombosis due to vascular prosthetic devices, implants and grafts, initial encounter; E10.10 Type 1 diabetes mellitus with ketoacidosis without coma; I50.33 Acute on chronic diastolic (congestive) heart failure; K52.9 Noninfective gastroenteritis and colitis, unspecified; E87.5 Hyperkalemia; E10.22 Type 1 diabetes mellitus with diabetic chronic kidney disease; E10.40 Type 1 diabetes mellitus with diabetic neuropathy, unspecified; D50.9 Iron deficiency anemia, unspecified; E10.319 Type 1 diabetes mellitus with unspecified diabetic retinopathy without macular edema; I16.0 Hypertensive urgency; I27.20 Pulmonary hypertension, unspecified; R16.0 Hepatomegaly, not elsewhere classified; F32.9 Major depressive disorder, single episode, unspecified; E10.65 Type 1 diabetes mellitus with hyperglycemia; L97.529 Non-pressure chronic ulcer of other part of left foot with unspecified severity; E10.621 Type 1 diabetes mellitus with foot ulcer; E83.39 Other disorders of phosphorus metabolism; K76.1 Chronic passive congestion of liver; T46.5X5A Adverse effect of other antihypertensive drugs, initial encounter; D47.3 Essential (hemorrhagic) thrombocythemia; D63.1 Anemia in chronic kidney disease; Z89.421 Acquired absence of other right toe(s); Z89.422 Acquired absence of other left toe(s); Y83.1 Surgical operation with implant of artificial internal device as the cause of abnormal reaction of the patient, or of later complication, without mention of misadventure at the time of the procedure; Z20.822 Contact with and (suspected) exposure to COVID-19; Z79.82 Long term (current) use of aspirin; Z99.2 Dependence on renal dialysis; Z79.4 Long term (current) use of insulin; Z79.899 Other long term (current) drug therapy; Z88.8 Allergy status to other drugs, medicaments and biological substances; Z88.5 Allergy status to narcotic agent; Z91.040 Latex allergy status; Z91.010 Allergy to peanuts; Z91.048 Other nonmedicinal substance allergy status; Z86.011 Personal history of benign neoplasm of the brain; Z59.0 Homelessness; Z91.14 Patient's other noncompliance with medication regimen; Z91.11 Patient's noncompliance with dietary regimen

== ENCOUNTER 2021-03-08 14:00 | Inpatient (IN) | payer MEDICARE, MEDICAID ==
[~2021-03-08] VITALS: Ht 175.3 cm; Wt 90.4 kg
[~2021-03-08 14:00] MED LIST changes: +3 SEMIS2 XX; +ASPI-161 PO; +CARV12.5 PO; +CLONI1TA PO; +ISOS1TAB35 PO; +LIDO1CRE42 TOP; -LIDO2.5C15 TOP; +LOSA50TA88 PO; +PATIENT COMMENT
[2021-03-08] MEDS ORDERED: LIDOCAINE 1% MDV 20ML VIAL As Ordered ONE (14:28)
[2021-03-08] MEDS ORDERED: ACETAMINOPHEN 500 MG TAB PO ONE (14:35)
--- NOTE | 2021-03-08 14:43 | REP ---
INDICATION: DYSPNEA/COUGH. COMPARISON: 01/04/2021 also portable TECHNIQUE: Portable FINDINGS: The technique utilized in obtaining the radiograph has magnified the cardiac silhouette and accentuated the interstitial markings. There is cardiomegaly accentuated by technique. The pulmonary edema pattern seen previously has improved if not resolved. There is no change in the double lumen central venous catheter tip remaining in the superior vena cava. No new abnormal parenchymal opacities have developed. The pleural angles remain sharp. There is no change in the osseous structures. IMPRESSION: Improved lung menjivar otherwise no significant change. <Electronically signed by Darnell Fox > 03/08/21 [id number]
[2021-03-08 14:48] LABS: BASO # 0.1 10^3/uL (0.0-0.2); BASO % 0.3 % (0.0-1.0); EOS # 0.1 10^3/uL (0.0-0.5); EOS % 0.4 % (0.0-3.0); LYMPH # 1.1 10^3/uL (1.5-5.0); LYMPH % 7.6 % (24.0-44.0); MEAN CORPUSCULAR HGB CONC 32.1 g/dl (32.0-36.5); MEAN CORPUSCULAR VOLUME 93.3 fl (80.0-96.0); MONO # 0.7 10^3/uL (0.0-0.8); MONO % 4.9 % (2.0-8.0); NEUTROPHILS # 12.7 10^3/uL (1.5-8.5); NEUTROPHILS % 86.1 % (36.0-66.0); PLATELET COUNT, AUTOMATED 566 10^3/uL (150-450); WHITE BLOOD COUNT 14.8 10^3/uL (4.0-10.0)
[2021-03-08] MEDS ORDERED: LOSA100T50 PO (14:53)
[2021-03-08] MEDS ORDERED: CLON0.3T PO (14:53)
[2021-03-08] MEDS ORDERED: BASA100I SC (14:53)
[2021-03-08] MEDS ORDERED: MINO2.5T PO (14:53)
[2021-03-08] MEDS ORDERED: CARV25TA PO (14:53)
[2021-03-08 14:59] LABS: INR 1.2; PROTHROMBIN TIME 15.5 SECONDS (12.5-14.3)
[2021-03-08 15:39] LABS: ALBUMIN 2.7 GM/DL (3.2-5.2); ALT/SGPT 49 U/L (12-78); BILIRUBIN,DIRECT 3.5 MG/DL (0.0-0.2); BILIRUBIN,TOTAL 4.2 MG/DL (0.2-1.0); BLOOD UREA NITROGEN 37 MG/DL (7-18); CALCIUM LEVEL 8.6 MG/DL (8.5-10.1); CARBON DIOXIDE LEVEL 27 MEQ/L (21-32); CHLORIDE LEVEL 91 MEQ/L (98-107); CK-MB VALUE MASS < 1.0 NG/ML (<3.6); CPK CREATINE PHOSPHOKINASE 105 U/L (26-192); CREATININE FOR GFR 6.36 MG/DL (0.55-1.30); GLOMERULAR FILTRATION RATE 9.7 (>60); GLUCOSE, FASTING 449 MG/DL (70-100); MB/CK RELATIVE INDEX 0.95 (< OR =4); POTASSIUM SERUM 4.6 MEQ/L (3.5-5.1); SODIUM LEVEL 131 MEQ/L (136-145); TOTAL PROTEIN 8.2 GM/DL (6.4-8.2); TROPONIN I 0.02 NG/ML (< 0.10)
--- NOTE | 2021-03-08 16:16 | REP ---
INDICATION: no access. COMPARISON: None. TECHNIQUE: The procedure was performed under the direct supervision of Dr. Oconnell. The risks and benefits of the procedure were explained to the patient and informed consent was obtained. The left brachial vein was localized using ultrasound guidance. The skin was prepped and draped in a sterile fashion. 2% lidocaine was used as a local anesthetic. Using ultrasound guidance the brachial vein was cannulated and a 0.018 guidewire was inserted and advanced to the SVC using fluoroscopic guidance, and last image hold technology. The needle was removed and a 5.5 Palestinian dilator and peel-away sheath was inserted over the guide wire. A 5.5 Palestinian dual lumen catheter was cut to length of 42 cm. The dilator was removed and the catheter was inserted over the guide wire with the tip ending in the SVC. The peel-away sheath was removed and the catheter was flushed with heparinized saline as per Hospital protocol. The catheter was affixed to the skin and a sterile dressing was applied. The patient tolerated the procedure well and there were no immediate complications. 0.8 minutes of fluoro time was utilized for this procedure. FINDINGS: None IMPRESSION: PICC line insertion left brachial vein with the tip ending in the SVC. <Electronically signed by Fawad Fernando > 03/08/21 1533 <Electronically signed by Hesham Oconnell > 03/08/21 1610
[2021-03-08] MEDS ORDERED: ACETAMINOPHEN 325 MG TAB PO PRN (17:00)
[2021-03-08] MEDS ORDERED: GLUCOSE 4GM CHEW TABLET PO PRN (17:40)
[2021-03-08] MEDS ORDERED: GLUCAGON INJ 1MG VIAL SC PRN (17:40)
[2021-03-08] MEDS ORDERED: DEXTROSE 50% 50 ML SYRINGE IV PRN (17:40)
--- NOTE | 2021-03-08 17:52 | HPEPDOC ---
[facility] Medical History & Physical Date of Admission March 08, 2021 Date of Service: March 08, 2021 Attending Physician: Sera Ann MD History and Physical CHIEF COMPLAINT: increased SOB, fever HISTORY OF PRESENT ILLNESS: Patient is a 35-year-old female with past medical history of end-stage renal di cezar on hemodialysis Thursday/Thursday/Thursday, insulin-dependent diabetes mellitus type 1, peripheral neuropathy, pulmonary hypertension, hypertension, history of C. difficile who presented to [facility] emergency room with the chief complaint of increased shortness of breath. The patient states her symptoms began in the middle of this last evening. She woke up very short of breath, with difficulty breathing. She felt chills and had increased weakness. Today she was increasingly thirsty and drank for Gatorade's with the normal amount of sugar in them. She has not noticed that she's been urinating more than normal because she does not make much urine. She denies sick contacts or noncompliance with her medications. At her appointment this afternoon at around 130s a noted that she was febrile. She also had associated cough that was nonproductive. Due to her worsening symptoms the patient came to the emergency room for further evaluation. In the ER temperature was 101.7, heart rate 91, lead pressure 181/193 systolic, 95% on 2 L nasal cannula. The patient is not on home oxygen. Chest x-ray was unremarkable. Acute changes. 3 BC 14.8, H&H 9/28. Blood sugar was 449, no anion gap present, lactic acid 1.5, creatinine 6.36 and near baseline. The patient was a very hard stick and PICC line was ordered. She had abnormal bilirubin and AST; however, after trending this over time this has been elevated before. She denied any abdominal symptoms. Her right chest port did not appear to be red swollen or tender. She had a left foot wound which was packed and appeared to be clean, she has peripheral neuropathy and denies any pain on exam. Due to the symptoms above and concern for infection, the patient was admitted for SIRS +, r/o source of infection, SOB 2/2 to unknown etiology. REVIEW OF SYSTEMS: Neg except for what is mentioned above PAST MEDICAL HX: ESRD on HD MWF IDDM1 peripheral neuropathy proliferative retinopathy s/p photocoagulation Hx of DKA Pulm HTN (PASP 50s) Trace MVR Trace AVR Trace TVR Chronic Thrombocytosis HTN Hx of C.difff Siderosis SURGICAL HISTORY: (C) section Bilateral fifth metatarsal head amputations to manage osteomyelitis / DM foot ulcers Brain surgery for a cyst Right AV Fistula placement Permacath placement in R chest FAMILY HISTORY: M: DM type II, HTN, CHF. at 51 y/o F: COPD, HTN. at 79 y/o SOCIAL HISTORY: Denies smoking. Denies alcohol use. Denies illicit drug use. Currently lives with her brother. 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 ALLERGIES: Please see below. HOME MEDICATIONS: Please see below. PHYSICAL EXAMINATION: CONSTITUTIONAL: No acute distress, resting comfortably, AAO x 3 EYES: PERRLA, EOM intact HENT, MOUTH: Normocephalic, atraumatic, moist mucous membranes, NC in place NECK: SUPPLE, no JVD, no lymphadenopathy, no carotid bruit CV: mild sinus tachycardia, S1S2 normal, no murmurs/rubs/gallops CHEST: Right upper chest permacath RESPIRATORY: Clear to auscultation bilaterally, no rales/rhonchi/wheezes GI: BS positive in 4 quadrants, soft, nontender, nondistended, no rebound or guarding, no organomegaly : Deferred MUSCULOSKELETAL: Normal ROM. No cyanosis, clubbing, swelling, joint deformity, extremity edema INTEGUMENTARY: chronic LE skin changes. wound on bottom of left foot packed with blue foam, nontender to touch, no erythema, nonsuppurative, appears clean. Intact, no rashes, no lesions, no erythema NEUROLOGIC: Decreased sensation of b/l feet-chronic. No motor deficits. Reflexes in tact Cranial Nerves II-XII are intact, no focal deficits PSYCHIATRIC: Mood and affect are normal LABORATORY DATA: Please see below IMAGING: F/u CT of left foot, CT angio of chest CXR: Improved lung menjivar otherwise no significant change. ASSESSMENT: 35-year-old female with past medical history of end-stage renal disease on hemodialysis Thursday/Thursday/Thursday, insulin-dependent diabetes mellitus type 1, peripheral neuropathy, pulmonary hypertension, hypertension, history of C. difficile admitted for SIRS +, r/o source of infection, SOB 2/2 to unknown etiology. PLAN: SOB 2/2 to unknown etiology, r/o PE or perhaps early CAP vs. HCAP (recent hospitalization from 01/25/21-02/19/21) -Currently on 2 L NC, not normally on home O2. Sudden onset at home, fever, chills, tachycardia -No wheezing, rhonchi or rales, CTAB -CXR neg above -F/u infectious w/u: BCx, CTA chest -F/u BNP -Empiric tx for infection below SIRS +, r/o source of infection -WBC 14K, febrile 101.7, HR >90 -CT LLE with contrast ordered , no MRI until after the weekend to r/o osteomyelitis returning in Left foot -CTA chest ordered: r/o PE and also possibly early PNA vs. small HCAP PNA not seen on CXR -No abdominal pain or reason to look into abd -Right permacath site appears nonerythematous, nontender, not warm to touch -F/u BCx, UA if able to be sent , MRSA -Order sputum cx if CTA chest concerning for infiltrates -Starting on empiric abx: vancomycin and cefepime + probiotic- careful as marlee ent has hx of c.diff. STop any abx if not indicated further Uncontrolled IDDM Type I -BS 449, no AG, no s/s of acidosis (LA normal) -last HbA1c 12/2020 10.3, states to be compliant with meds; however, admits today to have drank four full sugar Gatorades today due to increased thirst and this is likely contributing -C/w home insulins + ISS, CC diet, FS AC/HS Transaminitis / hyperbilirubinemia likely 2/2 to venous outflow obstruction -Worked up on prior admission -MEEK, ANCA, and anti-mitochondrial ab had resulted negative. Pt ELIZABETH level elevated at 104. DDx for this include sarcoidosis -Hepatitis panel was negative in 2019; repeat negative -Liver pathology from [facility] 02/08/21: Benign liver parenchyma with dilated sinusoids, with perivenular/perisinusoidal fibrosis, suggestive of venous o utflow obstruction. The iron stain shows increased iron, mostly in Kupfer cells, consistent with moderate siderosis. -Continue to monitor CMP Hypertensive urgency -BP 180-190's initially; however, later BP improved -Resume all home meds, hydralazine PRN -HD likely tomorrow Hx of left foot osteomyelitis, chronic diabetic foot ulcer -Follows with Dr. Mondragon, Dr. Espinosa o/p -Wound appears clean currently; however, f/u imaging to r/o return of infection -C/w wound care routine while here -Abx above -Consider Podiatry or wound care consult here if needed Peripheral neuropathy, severe -not on home meds ESRD on HD MWF -Last went on Thu, did not go today due to acute issues- had late chair -Nephrology consulted to continue here inpatient -Dialysis in the AM Pulm HTN (PASP 50s) -C/w home meds Chronic Thrombocytosis -CBC daily Hx of C.diff -Monitor for s/s of diarrhea occuring while on abx above -Probiotic Anemia likely 2/2 to ESRD - Hg at baseline -CBC daily Hyponatremia likely 2/2 ESRD and hyperglycemia combined - c/w Dialysis as scheduled Anxiety - c/w Hydroxyzine DVT px -Heparin DISPOSITION: Admitted as acute inpatient. Dialysis in the AM. Plan is home when medically improved. Vital Signs Vital Signs Date Time Temp Pulse Resp B/P (MAP) Pulse Ox O2 Delivery O2 Flow Rate FiO2 03/08/21 17:01 101.2 03/08/21 14:50 Nasal Cannula 2.0 03/08/21 14:30 90 193/93 (126) 95 Laboratory Data Labs 24H Laboratory Tests 2 03/08/21 14:26: Immature Granulocyte % (Auto) 0.7, Neutrophils (%) (Auto) 86.1H, Lymphocytes (%) (Auto) 7.6L, Monocytes (%) (Auto) 4.9, Eosinophils (%) (Auto) 0.4, Basophils (%) (Auto) 0.3, Neutrophils # (Auto) 12.7H, Lymphocytes # (Auto) 1.1L, Monocytes # (Auto) 0.7, Eosinophils # (Auto) 0.1, Basophils # (Auto) 0.1, Nucleated Red Blood Cells % (auto) 0.0, Prothrombin Time 15.5H, Prothromb Time International Ratio 1.20, Anion Gap 13, Glomerular Filtration Rate 9.7L, Calcium Level 8.6, Total Bilirubin 4.2H, Direct Bilirubin 3.5H, Aspartate Amino Transf (AST/SGOT) 42H, Alanine Aminotransferase (ALT/SGPT) 49, Alkaline Phosphatase 923H, Total Creatine Kinase 105, Creatine Kinase MB < 1.0, Creatine Kinase MB Relative Index 0.95, Troponin I 0.02, Total Protein 8.2, Albumin 2.7L, Albumin/Globulin Ratio 0.5L 03/08/21 14:27: Lactic Acid Level 1.5 03/08/21 14:28: POC Glucose (Misc Panel) 465H, POC Sodium (Misc Panel) 132L, POC Potassium (Misc Panel) 4.4, POC Chloride (Misc Panel) 92L, POC Total CO2 (Misc Panel) 29.0H, POC Blood Urea Nitrogen (Misc Panel 35H, POC Ionized Calcium (Misc Panel) 3.7L, POC Creatinine (Misc Panel) 7.2H, POC Hematocrit (Misc Panel) 31.0L CBC/BMP Laboratory Tests 03/08/21 14:26 Microbiology Microbiology 03/08/21 Blood Culture, Received Pending 03/08/21 Blood Culture, Received Pending 03/08/21 Respiratory Virus Panel (PCR) (LINDA) - Final, Complete Home Medications Scheduled Amlodipine Besylate (Amlodipine Besylate) 10 Mg Tablet, 10 MG PO DAILY Aspirin (Aspirin EC) 81 Mg Tablet.dr, 81 MG PO DAILY Calcitriol (Calcitriol) 0.25 Mcg Capsule, 0.25 MCG PO DAILY Carvedilol (Carvedilol) 25 Mg Tablet, 25 MG PO DAILY Clonidine HCl (Clonidine HCl) 0.3 Mg Tablet, 0.3 MG PO DAILY Ergocalciferol (Vitamin D2) (Vitamin D2) 50,000 Units Cap, 50,000 UNITS PO QWEEK THURSDAY Insulin Glargine,Hum.rec.anlog (Basaglar Kwikpen U-100) 100 Unit/1 Ml Insuln.pen, 5 UNIT SC QHS Insulin Human Lispro (Novolog) 100 Unit/1 Ml Vial, 1 DOSE SC AC PER SLIDING SCALE Isosorbide Mononitrate (Isosorbide Mononitrate ER) 30 Mg Tab.er.24h, 90 MG PO DAILY L.acidoph/L.bulg/B.bif/S.therm (Tonja-Bid Caplet) 1 Each Tablet, 1 TAB PO BIDWM Losartan Potassium (Losartan Potassium) 100 Mg Tablet, 100 MG PO QHS Minoxidil (Minoxidil) 2.5 Mg Tablet, 2.5 MG PO BID Sevelamer Carbonate (Sevelamer Carbonate) 800 Mg Tablet, 1,600 MG PO WM WITH MEALS Scheduled PRN Sevelamer Carbonate (Sevelamer Carbonate) 800 Mg Tablet, 800 MG PO BID PRN for SNACKS Miscellaneous Medications [Patient Comment] MED REC COMPLETE VIA PREVIOUS DISCHARGE PAPERWORK (01/23/21) Allergies Coded Allergies: cinacalcet (Verified Allergy, Unknown, 11/25/20) latex (Verified Allergy, Unknown, 11/03/19) morphine (Verified Allergy, Unknown, 11/03/19) peanut (Verified Allergy, Unknown, 11/25/20) TAPE (Verified Adverse Reaction, Intermediate, IRRITATES SKIN, 11/03/19) USE PAPER TAPE ONL;Y A-FIB/CHADSVASC A-FIB History Current/History of A-Fib/PAF?: No Current PO Anticoag Therapy: No Age/Risk Factor Scoring CHADSVASC: CHADSVASC Response (Comments) Value Age Risk Factor Age < 65 years old 0 Gender Risk Factor Female 1 Hx of CHF No 0 Hx of HTN Yes 1 Hx of Stroke/TIA/or VTE No 0 Hx of Diabetes Yes 1 Hx of Vascular Disease No 0 Total 3 Treatment Treatment ordered: Other Other anticoagulant ordered: heparin Sera Ann MD March 08, 2021 17:52
[2021-03-08] MEDS: LACTOBACILLUS ACIDOPHILUS CAP (BACID) PO SCH (18:00)
[2021-03-08] MEDS ORDERED: hydrALAZINE 20MG/ML 1ML VIAL (J0360 PER 20MG) IV PRN (18:15)
[2021-03-08] MEDS ORDERED: ISOS1TAB35 PO (18:29)
[2021-03-08] MEDS ORDERED: ISOVUE-370 76% 100ML VIAL As Ordered ONE (18:34)
[2021-03-08] MEDS ORDERED: (RENVELA) SEVELAMER **CARBONate** 800 MG TAB PO PRN (18:50)
[2021-03-08 18:54] LABS: NT-PRO BNP 29518 PG/ML (<125)
[2021-03-08 18:59] VITALS: BP 137/62
--- NOTE | 2021-03-08 19:18 | ECGEPIP ---
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
[2021-03-08] MEDS ORDERED: VANCOMYCIN HCL 1,000 MG, VIAL MATE ADAPTER 1 EACH in NS 250 ML IV ONE (20:00)
[2021-03-08] MEDS: CEFEPIME HCL 1 GM in D5W MINI-BAG PLUS 50 ML IV SCH (20:13)
--- NOTE | 2021-03-08 20:34 | REPVR ---
PROCEDURE INFORMATION: Exam: CTA Chest With Contrast Exam date and time: 03/08/2021 7:36 PM Age: 35 years old Clinical indication: Shortness of breath; Additional info: R/O pe, increased SOB TECHNIQUE: Imaging protocol: Computed tomographic angiography of the chest with contrast. 3D rendering (Not supervised by radiologist): MIP and/or 3D reconstructed images were created by the technologist. Radiation optimization: All CT scans at this facility use at least one of these dose optimization techniques: automated exposure control; mA and/or kV adjustment per patient size (includes targeted exams where dose is matched to clinical indication); or iterative reconstruction. Contrast material: ISOVUE 370; Contrast volume: 75 ml; Contrast route: INTRAVENOUS (IV); COMPARISON: CT ANGIO CHEST 01/24/2021 10:20 PM FINDINGS: Pulmonary arteries: Normal. No pulmonary emboli. Aorta: Unremarkable. No aortic aneurysm. No aortic dissection. Lungs: There are worsening areas of mosaic ground-glass attenuation in both lungs. Airways are clear. No masses are seen. Pleural spaces: Unremarkable. No pneumothorax. No pleural effusion. Heart: Mild cardiomegaly. No pericardial effusion. Lymph nodes: Unremarkable. No enlarged lymph nodes. Bones/joints: Unremarkable. No acute fracture. Soft tissues: Mild subcutaneous edema. IMPRESSION: 1. Worsening ground-glass attenuation in both lungs may be due to pulmonary edema or air trapping in the setting of viral airways disease. 2. Cardiomegaly. 3. No pulmonary embolism. Electronically signed by: John Hernandez On 03/08/2021 20:33:55 PM
--- NOTE | 2021-03-08 20:41 | REPVR ---
PROCEDURE INFORMATION: Exam: CT Left Lower Extremity Without Contrast, Foot Exam date and time: 03/08/2021 7:36 PM Age: 35 years old Clinical indication: Swelling, leg or foot; Additional info: R/O osteomyelitis TECHNIQUE: Imaging protocol: CT of the Left lower extremity without contrast was performed. Exam focused on the foot. Radiation optimization: All CT scans at this facility use at least one of these dose optimization techniques: automated exposure control; mA and/or kV adjustment per patient size (includes targeted exams where dose is matched to clinical indication); or iterative reconstruction. COMPARISON: MRI FOOT WITHOUT CONTRAST 12/08/2020 11:46 AM FINDINGS: Bones/joints: There is a enhancing joint effusion in the 2nd toe MTP joint. There is erosion of the medial 2nd metatarsal head and base of the proximal phalanx. Mild degenerative changes in the midfoot. 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 Benign-appearing periosteal reaction along the 4th metatarsal. Ankle mortise is unremarkable. No acute fracture or malalignment. Soft tissues: Generalized soft tissue swelling in the foot. There is large area of soft tissue ulceration and edema in the plantar surface of the foot at the 1st-2nd toe interspace. Peripherally enhancing fluid is present in the area of ulceration extending to the 2nd toe MTP joint measuring approximately 2.4 x 0.8 x 1.0 cm. Some soft tissue enhancement also extends along the proximal phalanx of the 2nd toe. Second smaller pocket of fluid in the dorsal 2nd toe soft tissues measuring 8 mm. IMPRESSION: Large ulceration in the plantar foot soft tissues with associated subcutaneous abscess. Septic joint with changes of osteomyelitis in the 2nd MTP joint. Electronically signed by: John Hernandez On 03/08/2021 20:41:36 PM
[2021-03-08] MEDS ORDERED: HumaLOG INSULIN (NovoLOG) PER UNIT SC SCH (21:00)
[2021-03-08] MEDS ORDERED: LEVEMIR (INSULIN DETEMIR) 1 UNITS/0.01ML SC SCH (21:00)
[2021-03-08] MEDS: minoxidiL 2.5 MG TAB PO SCH (21:19)
[2021-03-08] MEDS: LOSARTAN 50MG TABLET PO SCH (21:19)
[2021-03-08] MEDS ORDERED: VANCOMYCIN HCL 500 MG in D5W MINI-BAG PLUS 100 ML IV ONE (22:00)
[2021-03-08] MEDS ORDERED: ACETAMINOPHEN 650 MG SUPP PR PRN (22:55)
[2021-03-09] VITALS: BP 194/81
[2021-03-09 01:00] VITALS: BP 133/61
[2021-03-09 04:00] VITALS: BP 120/57
[2021-03-09 05:54] LABS: HEMATOCRIT 25.6 % (36.0-47.0); HEMOGLOBIN 8.2 g/dl (12.0-15.5); MEAN CORPUSCULAR VOLUME 93.8 fl (80.0-96.0); PLATELET COUNT, AUTOMATED 523 10^3/uL (150-450); RED BLOOD COUNT 2.73 10^6/uL (4.00-5.40); WHITE BLOOD COUNT 17.2 10^3/uL (4.0-10.0)
[2021-03-09 06:19] LABS: ALBUMIN 2.5 GM/DL (3.2-5.2); BILIRUBIN,TOTAL 4.3 MG/DL (0.2-1.0); CALCIUM LEVEL 9.1 MG/DL (8.5-10.1); CREATININE FOR GFR 7.27 MG/DL (0.55-1.30); GLOMERULAR FILTRATION RATE 8.3 (>60); POTASSIUM SERUM 4.2 MEQ/L (3.5-5.1); TOTAL PROTEIN 7.7 GM/DL (6.4-8.2)
[2021-03-09] MEDS: HumaLOG INSULIN (NovoLOG) PER UNIT SC SCH ×3 (07:30→18:12)
[2021-03-09 08:00] VITALS: BP 121/56
[2021-03-09] MEDS: LACTOBACILLUS ACIDOPHILUS CAP (BACID) PO SCH ×2 (08:00→18:12)
[2021-03-09] MEDS: minoxidiL 2.5 MG TAB PO SCH ×2 (09:00→20:59)
[2021-03-09] MEDS ORDERED: VANCOMYCIN HCL 1,000 MG, VIAL MATE ADAPTER 1 EACH in NS 250 ML IV SCH (09:00)
[2021-03-09] MEDS: ISOSORBIDE MON. (IMDUR) 30 MG XR TAB PO SCH (09:00)
[2021-03-09] MEDS: CARVedilol 12.5 MG TAB PO SCH (09:00)
[2021-03-09] MEDS: cloNIDine 0.1MG TABLET PO SCH (09:52)
[2021-03-09] MEDS: ASPIRIN 81MG ENTERIC TABLET PO SCH (09:52)
[2021-03-09] MEDS: ACETAMINOPHEN TAB 650MG DOSE (2X325MG) PO PRN ×2 (09:52→15:49)
[2021-03-09] MEDS: CALCITRIOL 0.25 MCG CAP (S0169) PO SCH (09:52)
[2021-03-09] MEDS: HEPARIN SOD (PORCINE) 5000UNITS/ML 1ML VIAL/SYRINGE SC SCH ×2 (09:53→20:58)
--- NOTE | 2021-03-09 11:05 | REP ---
INDICATION: abdominal pain. COMPARISON: 01/04/2021 TECHNIQUE: Limited noncontrast enhanced technique FINDINGS: Patchy ground-glass opacities seen previously in the lung bases have significantly improved. Limited evaluation of the solid intra-abdominal organs show no evidence of significant change. There is gross hepatomegaly status quo. Limited evaluation of the retroperitoneal organs show no gross abnormalities. There has been no significant change. There is para-aortic adenopathy status quo. Free fluid is again seen in the abdomen and pelvis and appears unchanged. There is no evidence of free air. There is no evidence of intestinal obstruction. Noncontrast opacified fluid-filled bowel loops are again noted. There is no significant change in the osseous structures. There is no significant change in appearance of the diffuse subcutaneous edema. IMPRESSION: Improved lung bases as described above, otherwise, no significant change from the prior exam with findings as described above. <Electronically signed by Darnell Fox > 03/09/21 [id number]
--- NOTE | 2021-03-09 12:55 | IPNPDOC ---
Date Seen The patient was seen on 03/09/21. Progress Note SUBJECTIVE: BCx pos for gram pos cocci in clusters in all bottles, echo ordered- old murmur. CT LLE: subcutaneous abscess, septic joint and likely osteomyelitis. D/w podiatry who will take to OR AM 03/10/21. BP 120's, held AM antihypertensive meds except clonidine, made Dr. Bates aware and patient to go to HD today. Abd pain today, ordered CT abd. SOB is likely 2/2 to fluid seen on CT chest. She has chills, T max overnight 103.1F. OBJECTIVE: PHYSICAL EXAMINATION: VS: Please see below CONSTITUTIONAL: Feels warm to touch, complaining of chills. in bed, AAO x 3 EYES: PERRLA, EOM intact HENT, MOUTH: Normocephalic, atraumatic, moist mucous membranes, NC in place NECK: SUPPLE, no JVD, no lymphadenopathy, no carotid bruit CV: murmur, NSR, S1S2 normal, no rubs/gallops CHEST: Right upper chest permacath RESPIRATORY: Clear to auscultation bilaterally, no rales/rhonchi/wheezes GI: BS positive in 4 quadrants, soft, nontender, nondistended, no rebound or guarding, no organomegaly : Deferred MUSCULOSKELETAL: RUE PICC line (placed 03/08/21). Normal ROM. No cyanosis, clubbing, swelling, joint deformity, extremity edema INTEGUMENTARY: chronic LE skin changes. wound on bottom of left foot packed with blue foam, nontender to touch, no erythema, nonsuppurative, appears clean. Intact, no rashes, no lesions, no erythema NEUROLOGIC: Decreased sensation of b/l feet-chronic. No motor deficits. Reflexes in tact Cranial Nerves II-XII are intact, no focal deficits PSYCHIATRIC: Mood and affect are normal LABORATORY DATA: Please see below MICRO: BCx x 2 sets: Gram pos cocci in clusters IMAGING: F/u echocardiogram CT abd/pelvis w/out contrast 03/09/21: Improved lung bases as described above, otherwise, no significant change from the prior exam with findings as described above. CTA of left foot 03/08/21: FINDINGS: Bones/joints: There is a enhancing joint effusion in the 2nd toe MTP joint. There is erosion of the medial 2nd metatarsal head and base of the proximal phalanx. Mild degenerative changes in the midfoot. 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 Benign-appearing periosteal reaction along the 4th metatarsal. Ankle mortise is unremarkable. No acute fracture or malalignment. Soft tissues: Generalized soft tissue swelling in the foot. There is large area of soft tissue ulceration and edema in the plantar surface of the foot at the 1st-2nd toe interspace. Peripherally enhancing fluid is present in the area of ulceration extending to the 2nd toe MTP joint measuring approximately 2.4 x 0.8 x 1.0 cm. Some soft tissue enhancement also extends along the proximal phalanx of the 2nd toe. Second smaller pocket of fluid in the dorsal 2nd toe soft tissues measuring 8 mm. IMPRESSION: Large ulceration in the plantar foot soft tissues with associated subcutaneous abscess. Septic joint with changes of osteomyelitis in the 2nd MTP joint. CT angio of chest 03/08/21: 1. Worsening ground-glass attenuation in both lungs may be due to pulmonary edema or air trapping in the setting of viral airways disease. 2. Cardiomegaly. 3. No pulmonary embolism. CXR: Improved lung menjivar otherwise no significant change. Echocardiogram 02/20/21: EF 65% 1. Normal global left ventricular systolic function with moderate concentric left ventricular hypertrophy. Assessment of the left ventricular diastolic function appeared to be normal. 2. Aortic valve sclerosis with trace aortic regurgitation but no aortic stenosis. 3. Mildly enlarged left atrium with mild mitral regurgitation. 4. Severe tricuspid regurgitation with moderate pulmonary hypertension. 5. Mild pulmonic regurgitation. ASSESSMENT: 35-year-old female with past medical history of end-stage renal disease on hemodialysis Thursday/Thursday/Thursday, insulin-dependent diabetes mellitus type 1, peripheral neuropathy, pulmonary hypertension, hypertension, history of C. difficile admitted for SIRS +, r/o source of infection, SOB 2/2 to unknown etiology. PLAN: SOB 2/2 to ground-glass attenuation in both lungs poss 2/2 pulmonary edema or air trapping in the setting of viral airways disease -Less likely to be CAP vs. HCAP (recent hospitalization from 01/25/21-02/19/21) -Resp panel neg but could be virus not seen on this test -Pulmonary edema definite possibility, no s/s of gross overload on exam otherwise. -BNP 29K, incr from last in system recorded as 23K (chronically elevated; however) -Currently on 2 L NC, not normally on home O2. -Supportive care, HD to occur today, does not make good urine so no diuresis Sepsis 2/2 to subcutaneous abscess adjacent to large ulceration in the plantar foot soft tissues with associated ? septic joint, changes of osteomyelitis in the 2nd MTP joint -WBC worsened to 17.2, T max overnight 103.1, chills -CT 's above -Gram + bacteremia in all blood culture sets -CT LLE above -F/u all blood BCx's from admission and new BCx drawing today (one from from permacat, one peripherally) -C/w vancomycin and cefepime + probiotic (Day 2)- careful as patient has hx of c.diff. STop any abx if not indicated further -Discussed with Dr. Mondragon, podiatry: OR tomorrow for I&D abscess, joint and bone assessment, will obtain cx. Joint may have to be taken out as there was concern of osteomyelitis in that area before Gram positive bacteremia likely 2/2 to LLE abscess, ulcer or osteomyelitis vs. septic joint?, CANNOT r/o permacath as site of infection (although less suspicious), sepsis -Hx of murmur, unknown if sounds changed from prior exam. -F/u all blood BCx's from admission and new BCx drawing today (one from from banneracat, one peripherally) -C/w vancomycin -F/u echocardiogram to r/o endocarditis -consider ID consult after the weekend Uncontrolled IDDM Type I -BS much better controlled but, although wnl, low for patient in 80's. poor PO intake with acute illness above -last HbA1c 12/2020 10.3, states to be compliant with meds but is known to specialist to not be -Stopping HS levemir as AM BS was 80's. Keep AC ISS, CC diet, FS AC/HS, hypoglycemic protocol Transaminitis / hyperbilirubinemia likely 2/2 to venous outflow obstruction -Worked up on prior admission -MEEK, ANCA, and anti-mitochondrial ab had resulted negative. Pt ELIZABETH level elevated at 104. DDx for this include sarcoidosis -Hepatitis panel was negative in 2019; repeat negative -Liver pathology from [facility] 02/08/21: Benign liver parenchyma with dilated sinusoids , with perivenular/perisinusoidal fibrosis, suggestive of venous outflow obstruction. The iron stain shows increased iron, mostly in Kupfer cells, consistent with moderate siderosis. -Continue to monitor CMP HTN, resolved urgency -Improved; however,BP 120's systolic -held all Po home meds except clonidine, can use hydralazine PRN -HD today and expected to take off 4 L Elevated BNP likely 2/2 to renal disease -no documented diastolic dysfunction on echo above -Chronically elevated -c/w HD Peripheral neuropathy, severe -not on home meds ESRD on HD MWF -Last went on 03/06/21, did not go 03/08/21 due to acute issues- had late chair -Nephrology consulted -Dialysis today Pulm HTN (PASP 50s) -C/w home meds after today Chronic Thrombocytosis -CBC daily Hx of C.diff -Monitor for s/s of diarrhea occuring while on abx above -Probiotic Anemia likely 2/2 to ESRD - Hg at baseline -CBC daily Hyponatremia likely 2/2 ESRD and hyperglycemia combined - c/w Dialysis as scheduled Anxiety - c/w Hydroxyzine DVT px -Heparin DISPOSITION: Admitted as acute inpatient. Nephrology and Podiatry consulted. consider ID consult after weekend. Dialysis today. Plan is home when medically improved. VS, I&O, 24H, Fishbone Vital Signs/I&O Vital Signs Date Time Temp Pulse Resp B/P (MAP) Pulse Ox O2 Delivery O2 Flow Rate FiO2 03/09/21 09:52 121/56 03/09/21 08:00 98.6 72 19 98 Nasal Cannula 2.0 I&O- Last 24 Hours up to 6 AM 03/09/21 06:00 Intake Total 360 ml Output Total 200 ml Balance 160 ml Laboratory Data 24H LABS Laboratory Tests 2 03/08/21 14:26: Immature Granulocyte % (Auto) 0.7, Neutrophils (%) (Auto) 86.1H, Lymphocytes (%) (Auto) 7.6L, Monocytes (%) (Auto) 4.9, Eosinophils (%) (Auto) 0.4, Basophils (%) (Auto) 0.3, Neutrophils # (Auto) 12.7H, Lymphocytes # (Auto) 1.1L, Monocytes # (Auto) 0.7, Eosinophils # (Auto) 0.1, Basophils # (Auto) 0.1, Nucleated Red Blood Cells % (auto) 0.0, Prothrombin Time 15.5H, Prothromb Time International Ratio 1.20, Anion Gap 13, Glomerular Filtration Rate 9.7L, Calcium Level 8.6, Total Bilirubin 4.2H, Direct Bilirubin 3.5H, Aspartate Amino Transf (AST/SGOT) 42H, Alanine Aminotransferase (ALT/SGPT) 49, Alkaline Phosphatase 923H, Total Creatine Kinase 105, Creatine Kinase MB < 1.0, Creatine Kinase MB Relative Index 0.95, Troponin I 0.02, JT-Qbd-L-Type Natriuretic Peptide 21571G, Total Protein 8.2, Albumin 2.7L, Albumin/Globulin Ratio 0.5L 03/08/21 14:27: Lactic Acid Level 1.5 03/08/21 14:28: POC Glucose (Misc Panel) 465H, POC Sodium (Misc Panel) 132L, POC Potassium (Misc Panel) 4.4, POC Chloride (Misc Panel) 92L, POC Total CO2 (Misc Panel) 29.0H, POC Blood Urea Nitrogen (Misc Panel 35H, POC Ionized Calcium (Misc Panel) 3.7L, POC Creatinine (Misc Panel) 7.2H, POC Hematocrit (Misc Panel) 31.0L 03/08/21 20:58: Bedside Glucose (Misc Panel) 429H 03/09/21 00:20: Urine Color VIDAL, Urine Appearance HAZY, Urine pH 8.0, Urine Specific [place] 1.021, Urine Protein 3+H, Urine Glucose (UA) 3+H, Urine Ketones NEGATIVE, Urine Blood NEGATIVE, Urine Nitrite NEGATIVE, Urine Bilirubin 1+H, Urine Urobilinogen 0.2, Urine Leukocyte Esterase NEGATIVE, Urine WBC (Auto) 3, Urine RBC (Auto) 1, Urine Hyaline Casts (Auto) 0, Urine Bacteria (Auto) NEGATIVE, Urine Squamous Epithelial Cells 1, Urine Sperm (Auto) 03/09/21 05:34: Nucleated Red Blood Cells % (auto) 0.0, Anion Gap 10, Glomerular Filtration Rate 8.3L, Calcium Level 9.1, Total Bilirubin 4.3H, Aspartate Amino Transf (AST/SGOT) 35, Alanine Aminotransferase (ALT/SGPT) 39, Alkaline Phosphatase 706H, Total Protein 7.7, Albumin 2.5L, Albumin/Globulin Ratio 0.5L 03/09/21 08:10: Bedside Glucose (Misc Panel) 81, Random Vancomycin Level 22.3 03/09/21 08:53: Erythrocyte Sedimentation Rate 107H, C-Reactive Protein, Quantitative 13.40H CBC/BMP Laboratory Tests 03/08/21 14:26 03/09/21 05:34 Microbiology Microbiology 03/08/21 Blood Culture - Preliminary, Resulted 03/08/21 Blood Culture - Preliminary, Resulted 03/08/21 Respiratory Virus Panel (PCR) ([facility]) - Final, Complete Sera Ann MD March 09, 2021 12:55
[2021-03-09 15:00] VITALS: BP 145/75
[2021-03-09] MEDS: **VANCO AFTER HD** MISC XX SCH (16:00)
[2021-03-09] MEDS ORDERED: DEXTROSE 50% 50 ML SYRINGE IV PRN (17:15)
[2021-03-09] MEDS ORDERED: GLUCAGON INJ 1MG VIAL SC PRN (17:15)
[2021-03-09] MEDS ORDERED: GLUCOSE 4GM CHEW TABLET PO PRN (17:15)
[2021-03-09] MEDS: CEFEPIME HCL 1 GM in D5W MINI-BAG PLUS 50 ML IV SCH (18:13)
[2021-03-09] MEDS: (RENVELA) SEVELAMER **CARBONate** 800 MG TAB PO SCH (18:13)
[2021-03-09] MEDS ORDERED: GENTAMICIN 80 MG in IV 1 EA IV ONE (19:10)
[2021-03-09 20:00] VITALS: BP 133/63
[2021-03-09] MEDS ORDERED: ACETAMINOPHEN *IV* 1,000 MG in IV 1 EA IV ONE (20:00)
[2021-03-09] MEDS: LOSARTAN 50MG TABLET PO SCH (20:59)
[2021-03-09 22:10] LABS: URINE PREG TEST NEGATIVE (NEGATIVE)
[2021-03-10] VITALS: BP 121/58
[2021-03-10 05:24] LABS: HEMOGLOBIN 8.1 g/dl (12.0-15.5); MEAN CORPUSCULAR HEMOGLOBIN 29.9 pg (27.0-33.0); MEAN CORPUSCULAR HGB CONC 31.2 g/dl (32.0-36.5); MEAN CORPUSCULAR VOLUME 95.9 fl (80.0-96.0); PLATELET COUNT, AUTOMATED 509 10^3/uL (150-450); RED BLOOD COUNT 2.71 10^6/uL (4.00-5.40); WHITE BLOOD COUNT 12.3 10^3/uL (4.0-10.0)
[2021-03-10 05:48] LABS: ALBUMIN 2.3 GM/DL (3.2-5.2); BILIRUBIN,TOTAL 5.3 MG/DL (0.2-1.0); CALCIUM LEVEL 8.5 MG/DL (8.5-10.1); CREATININE FOR GFR 4.74 MG/DL (0.55-1.30); GLOMERULAR FILTRATION RATE 13.7 (>60); POTASSIUM SERUM 4.4 MEQ/L (3.5-5.1); TOTAL PROTEIN 7.8 GM/DL (6.4-8.2)
[2021-03-10] MEDS ORDERED: MIDAZOLAM INJ 2MG/2ML VIAL (J2250 PER 1MG) As Ordered ONE (07:35)
[2021-03-10] MEDS ORDERED: propofoL 200 MG/20 ML VIAL As Ordered ONE (07:35)
[2021-03-10] MEDS ORDERED: LIDOCAINE 2% 100MG/5ML SDV (FOR ANES.) As Ordered ONE (07:35)
[2021-03-10] MEDS ORDERED: fentaNYL 100 MCG/2 ML INJECTION (J3010) As Ordered ONE (07:35)
[2021-03-10] MEDS ORDERED: ONDANSETRON 4MG/2ML VIAL As Ordered ONE (07:35)
[2021-03-10] MEDS: ACETAMINOPHEN TAB 650MG DOSE (2X325MG) PO PRN (07:40)
[2021-03-10] MEDS: HumaLOG INSULIN (NovoLOG) PER UNIT SC SCH ×4 (07:55→21:00)
[2021-03-10] MEDS: LACTOBACILLUS ACIDOPHILUS CAP (BACID) PO SCH ×2 (08:00→17:52)
[2021-03-10] MEDS: (RENVELA) SEVELAMER **CARBONate** 800 MG TAB PO SCH ×3 (08:00→17:52)
[2021-03-10] MEDS: cloNIDine 0.1MG TABLET PO SCH (08:02)
[2021-03-10] MEDS ORDERED: BUPIVACAINE HCL 0.5% 10ML VIAL As Ordered ONE (08:03)
[2021-03-10] MEDS ORDERED: LIDOCAINE 1% MDV 20ML VIAL As Ordered ONE (08:03)
[2021-03-10] MEDS: CARVedilol 12.5 MG TAB PO SCH (08:33)
[2021-03-10] MEDS: CALCITRIOL 0.25 MCG CAP (S0169) PO SCH (08:34)
[2021-03-10] MEDS: ISOSORBIDE MON. (IMDUR) 30 MG XR TAB PO SCH (08:34)
[2021-03-10] MEDS: minoxidiL 2.5 MG TAB PO SCH ×2 (08:34→21:51)
[2021-03-10] MEDS: ASPIRIN 81MG ENTERIC TABLET PO SCH (08:34)
[2021-03-10] MEDS: HEPARIN SOD (PORCINE) 5000UNITS/ML 1ML VIAL/SYRINGE SC SCH ×2 (08:35→21:51)
[2021-03-10] MEDS ORDERED: PHENYLephrine 500MCG 5ML (100MCG/ML) SYRINGE As Ordered ONE (09:05)
[2021-03-10 09:25] VITALS: BP 103/49
[2021-03-10] MEDS ORDERED: ACETAMINOPHEN TAB 650MG DOSE (2X325MG) PO ONE (10:30)
[2021-03-10 12:00] VITALS: BP 107/59
--- NOTE | 2021-03-10 13:13 | IPNPDOC ---
Date Seen The patient was seen on 03/10/21. Progress Note SUBJECTIVE: T max over 24H 105, placed on cooling blanket with some improvement overnight. Bedside I&D done 03/09/21 and taken to OR today for L foot 2nd met. head excision with I&D. Spiked fever again after OR, given tylenol. BCx pos for Staph aureus. Diarrhea today, highly suspicious of C. diff. stopped Cefepime, started on PO vancomycin and kept IV vancomycin due to Staph bacteremia. Echo done 03/09/21, pending resutls. Awaiting permacath line cx's. patient remains lethargic, having chills, on 2 L NC. OBJECTIVE: PHYSICAL EXAMINATION: VS: Please see below CONSTITUTIONAL: Feels warm to touch, lethargic, in bed, AO x 3 EYES: PERRLA, EOM intact HENT, MOUTH: Normocephalic, atraumatic, moist mucous membranes, NC in place NECK: SUPPLE, no JVD, no lymphadenopathy, no carotid bruit CV: murmur, NSR, S1S2 normal, no rubs/gallops CHEST: Right upper chest permacath RESPIRATORY: Clear to auscultation bilaterally, no rales/rhonchi/wheezes GI: BS positive in 4 quadrants, soft, nontender, nondistended, no rebound or guarding, no organomegaly : Deferred MUSCULOSKELETAL: LUE PICC line (placed 03/08/21). Normal ROM. No cyanosis, clubbing, swelling, joint deformity, extremity edema INTEGUMENTARY: chronic LE skin changes. LLE covered in bandages and ELIZABETH bandage. no rashes, no lesions, no erythema NEUROLOGIC: Decreased sensation of b/l feet-chronic. No motor deficits. Reflexes in tact Cranial Nerves II-XII are intact, no focal deficits PSYCHIATRIC: Mood and affect are normal LABORATORY DATA: Please see below MICRO: BCx x 2 sets from admission : Staph aureus, sensitivities pending BCx x 2 sets ( one peripherally- set #1, one from permacath-set #2): Set #1: Gram pos Cocci, Set #2: pending Left foot aerobic and anaerobic GS and Cx 03/10/21: pending IMAGING: F/u echocardiogram done on 03/09/21 CT abd/pelvis w/out contrast 03/09/21: Improved lung bases as described above, otherwise, no significant change from the prior exam with findings as described above. CTA of left foot 03/08/21: FINDINGS: Bones/joints: There is a enhancing joint effusion in the 2nd toe MTP joint. There is erosion of the medial 2nd metatarsal head and base of the proximal phalanx. Mild degenerative changes in the midfoot. 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 Benign-appearing periosteal reaction along the 4th metatarsal. Ankle mortise is unremarkable. No acute fracture or malalignment. Soft tissues: Generalized soft tissue swelling in the foot. There is large area of soft tissue ulceration and edema in the plantar surface of the foot at the 1st-2nd toe interspace. Peripherally enhancing fluid is present in the area of ulceration extending to the 2nd toe MTP joint measuring approximately 2.4 x 0.8 x 1.0 cm. Some soft tissue enhancement also extends along the proximal phalanx of the 2nd toe. Second smaller pocket of fluid in the dorsal 2nd toe soft tissues measuring 8 mm. IMPRESSION: Large ulceration in the plantar foot soft tissues with associated subcutaneous abscess. Septic joint with changes of osteomyelitis in the 2nd MTP joint. CT angio of chest 03/08/21: 1. Worsening ground-glass attenuation in both lungs may be due to pulmonary edema or air trapping in the setting of viral airways disease. 2. Cardiomegaly. 3. No pulmonary embolism. CXR: Improved lung menjivar otherwise no significant change. Echocardiogram 02/20/21: EF 65% 1. Normal global left ventricular systolic function with moderate concentric left ventricular hypertrophy. Assessment of the left ventricular diastolic function appeared to be normal. 2. Aortic valve sclerosis with trace aortic regurgitation but no aortic stenosis. 3. Mildly enlarged left atrium with mild mitral regurgitation. 4. Severe tricuspid regurgitation with moderate pulmonary hypertension. 5. Mild pulmonic regurgitation. ASSESSMENT: 35-year-old female with past medical history of end-stage renal disease on hemodialysis Thursday/Thursday/Thursday, insulin-dependent diabetes mellitus type 1, peripheral neuropathy, pulmonary hypertension, hypertension, history of C. difficile admitted for SIRS +, r/o source of infection, SOB 2/2 to unknown etiology. PLAN: SOB 2/2 to ground-glass attenuation in both lungs poss 2/2 pulmonary edema or air trapping in the setting of viral airways disease -S/p 3.5 L removed with HD on 03/09/21, currentyl on 2 L NC -Less likely to be CAP vs. HCAP (recent hospitalization from 01/25/21-02/19/21) -Resp panel neg but could be virus not seen on this test -Pulmonary edema on CT above -BNP 29K, incr from last in system recorded as 23K (chronically elevated; however) -Supportive care, HD, does not make good urine so no diuresis Abscess, large ulceration in the left plantar foot soft tissues with associated ? septic joint, osteomyelitis in the 2nd MTP joint, sepsis -POD 0 for left foot 2nd metatarsal head excision and I&D by Dr. Mondragon -WBC 12.3, T max over 24H 105, chills, lethargy -CT 's above -Gram + bacteremia in all blood culture sets -CT LLE above -F/u all Cx from I&D, cultures from admission and new BCx drawn 03/09/21(one from from permacath, one peripherally) -C/w vancomycin + probiotic (Day 3) Gram positive bacteremia likely 2/2 to LLE abscess, ulcer or osteomyelitis vs. septic joint?, CANNOT r/o permacath as site of infection (although less s uspicious), sepsis -Hx of murmur, unknown if sounds changed from prior exam. -F/u all Cx from admission and new BCx drawn 03/09/21(one from from permacath, one peripherally) to r/o line infection -C/w vancomycin + probiotic (Day 3) -F/u echocardiogram to r/o endocarditis -ID consult to be placed for 03/11/21 NotePatient had LUE PICC placed in ER prior to being admitted while still bacteremic. Will d/w Dr. Krishnamurthy on if additional bcx's will be needed from this line as well or d/palmer completely. Diarrhea, r/o C. difficile -Hx of c. diff in past -F/u C. diff PCR -Cannot stop IV vancomycin but will stop Cefepime today. Adding Po vancomycin QID prophylactically for now -If c. diff PCR pos, keep Vanco PO. If neg, still may want to keep on until discussed with Dr. Krishnamurthy, ID. -Monitor lytes, consider gentle IVFs if continues Uncontrolled IDDM Type I -BS better controlled -Added back HS levemir as BS was 190's this AM -last HbA1c 12/2020 10.3, states to be compliant with meds but is known to specialists to not be -C/w AC/HS ISS, CC diet, FS AC/HS, hypoglycemic protocol Transaminitis / hyperbilirubinemia likely 2/2 to venous outflow obstruction -Worked up on prior admission -MEEK, ANCA, and anti-mitochondrial ab had resulted negative. Pt ELIZABETH level elevated at 104. DDx for this include sarcoidosis -Hepatitis panel was negative in 2019; repeat negative -Liver pathology from [facility] 02/08/21: Benign liver parenchyma with dilated sinusoids, with perivenular/perisinusoidal fibrosis, suggestive of venous outflow obstruction. The iron stain shows increased iron, mostly in Kupfer ce lls, consistent with moderate siderosis. -Continue to monitor CMP HTN, resolved urgency -IBP stable -held all Po home meds except clonidine, can use hydralazine PRN -HD took off 3.5 03/09/21 Elevated BNP likely 2/2 to renal disease -no documented diastolic dysfunction on echo above -Chronically elevated -c/w HD Peripheral neuropathy, severe -not on home meds ESRD on HD MWF -HD 03/09/21 -Nephrology consulted -Dialysis today Pulm HTN (PASP 50s) -C/w home meds after today Chronic Thrombocytosis -CBC daily Anemia likely 2/2 to ESRD - Hg at baseline -CBC daily Hyponatremia likely 2/2 ESRD and hyperglycemia combined - c/w Dialysis as scheduled Anxiety - c/w Hydroxyzine DVT px -Heparin DISPOSITION: Admitted as acute inpatient. Nephrology, Podiatry consulted. ID consult placed for 03/11/21. Plan is home when medically improved. VS, I&O, 24H, Fishbone Vital Signs/I&O Vital Signs Date Time Temp Pulse Resp B/P (MAP) Pulse Ox O2 Delivery O2 Flow Rate FiO2 03/10/21 12:00 98.9 66 16 107/59 (75) 100 Nasal Cannula 2.0 I&O- Last 24 Hours up to 6 AM 03/10/21 06:00 Intake Total 3093 ml Output Total 3510 ml Balance -417 ml Laboratory Data 24H LABS Laboratory Tests 2 03/09/21 15:17: Bedside Glucose (Misc Panel) 93 03/09/21 17:54: Bedside Glucose (Misc Panel) 171H 03/09/21 18:50: Lactic Acid Level 1.5 03/09/21 21:16: Bedside Glucose (Misc Panel) 172H 03/09/21 22:00: Urine Test NEGATIVE 03/10/21 04:54: Nucleated Red Blood Cells % (auto) 0.0, Anion Gap 9, Glomerular Filtration Rate 13.7L, Calcium Level 8.5, Total Bilirubin 5.3H, Aspartate Amino Transf (AST/SGOT) 37, Alanine Aminotransferase (ALT/SGPT) 33, Alkaline Phosphatase 681H, Total Protein 7.8, Albumin 2.3L, Albumin/Globulin Ratio 0.4L 03/10/21 07:49: Bedside Glucose (Misc Panel) 196H CBC/BMP Laboratory Tests 03/10/21 04:54 Microbiology Microbiology 03/10/21 Wound Culture, Received Pending 03/10/21 Anaerobic Culture, Received Pending 03/10/21 Gram Stain - Final, Resulted 03/10/21 Wound Culture, Resulted Pending 03/09/21 Blood Culture - Preliminary, Resulted 03/09/21 Blood Culture, Received Pending 03/08/21 Blood Culture - Preliminary, Resulted Staphylococcus Aureus 03/08/21 Blood Culture - Preliminary, Resulted Staphylococcus Aureus 03/08/21 Respiratory Virus Panel (PCR) ([facility]) - Final, Complete Sera Ann MD March 10, 2021 13:13
[2021-03-10 15:13] LABS: CLOSTRIDIUM DIFFICILE PCR POSITIVE (NEGATIVE)
[2021-03-10 16:00] VITALS: BP 159/79
[2021-03-10] MEDS: **VANCO AFTER HD** MISC XX SCH (16:00)
[2021-03-10] MEDS: VANCOMYCIN ORAL SOL 250MG/5ML ORAL SYRINGE PO SCH (17:52)
--- NOTE | 2021-03-10 19:05 | RO ---
OPERATIVE NOTE DATE OF OPERATION: 03/10/2021 SURGEON: Butch Mondragon DPM WORKFORCE SPECIALIST: None. PREOPERATIVE DIAGNOSIS: Left foot infection with osteomyelitis. POSTOPERATIVE DIAGNOSIS: Left foot infection with osteomyelitis. PROCEDURE: Left second metatarsal head excision, incision and drainage. ANESTHESIA: Monitored anesthesia care. PREOPERATIVE INJECTION: 12 cc of a one-to-one mixture of 1% lidocaine plain and 0.5% Marcaine plain. ESTIMATED BLOOD LOSS: 5 mL. MATERIALS: None. SPECIMENS: Left second metatarsal head and aerobic and anaerobic cultures. COMPLICATIONS: None. CONDITION: Stable. INDICATIONS: Narcisa Mireles is a 35-year-old female who was admitted with worsening infection of her left foot. She had bedside incision and drainage last night due to worsening fevers and she was brought to the operating room for more definitive treatment this morning. The patient's side and site were identified and marked in the preoperative area. Consent was reviewed and obtained. The risks, complications, and alternatives to the procedure were explained to the patient in detail and all questions were answered. PROCEDURE: The patient was brought to the operating room and placed on the operating room table in the supine position. Monitored anesthesia care was delivered by the anesthesia team. Preoperative injection of 12 cc of a one-to-one mixture of 1% lidocaine plain and 0.5% Marcaine plain were injected to the left foot. The left foot was prepped and draped in normal sterile fashion. The tourniquet was applied to the left ankle and inflated to 250 mmHg. A dorsal incision was made over the second metatarsal and then carried through with a #15 blade. Dissection was carried until the second metatarsal was identified. There was noted to be necrotic tissue and some trace purulence. Culture slides were taken of the fluid. Using a sagittal saw, the metatarsal head was excised and sent for pathology. Some nonviable tissue was removed with rongeur and the site was irrigated with bulb syringe of normal saline. Once no further necrotic was noted, the wound was dressed with saline gauze and dry sterile dressing. The tourniquet was deflated. The patient was brought back to the PACU with vital signs stable and neurovascular status intact. She will be readmitted to the floor for continued antibiotics and monitoring. Tentative plan will be to bring her back to the operating room later this week for wound closure.
--- NOTE | 2021-03-10 19:05 | CR ---
CONSULTATION DATE: 03/09/2021 REASON FOR CONSULTATION: To assist in the management of end-stage renal disease and shortness of breath. HISTORY OF PRESENT ILLNESS: Ms. Mireles is a 35-year-old female of origin. She has known history of longstanding diabetes, hypertension, and end-stage renal disease. She has been admitted to [facility] multiple times. She is admitted again with increased shortness of breath and fever. She has ongoing osteomyelitis on her left foot. She has been on maintenance hemodialysis and did miss her dialysis yesterday. MEDICAL HISTORY: Significant for: 1. Longstanding insulin-requiring diabetes. 2. Hypertension. 3. End-stage renal disease. 4. Osteomyelitis, left foot. 5. Peripheral neuropathy. 6. History of pulmonary hypertension. 7. History of Clostridium (C) difficile colitis. 8. History of chronic congestive heart failure due to noncompliance with dialysis and fluid restriction. 9. Anemia. 10. History of secondary hyperparathyroidism. 11. History of chronic thrombocytopenia. SURGICAL HISTORY: 1. section. 2. Bilateral 5th metatarsal head amputations. 3. Brain surgery for a benign cyst removal. 4. Right arm arteriovenous (AV) fistula creation. 5. Perm-A-Cath placement. FAMILY HISTORY: Significant for diabetes, hypertension, and congestive heart failure. PERSONAL AND SOCIAL HISTORY: Patient is single and has been kicked out of her sister's home. She is now currently living by herself. She denies any alcohol, drug, or tobacco use. MEDICATIONS: Patient has been chronically noncompliant with her medications, however, her list includes: - amlodipine 10 mg daily - aspirin 81 mg daily - calcitriol 0.25 mcg daily - carvedilol 25 mg twice a day - clonidine 0.3 mg daily - vitamin D 50,000 units once a week - Basaglar and NovoLog insulin - isosorbide ER 30 mg daily - losartan 100 mg daily - minoxidil 2.5 mg twice a day - Renvela 1600 mg three times a day ALLERGIES: She has allergy to MORPHINE, CINACALCET, and LATEX. REVIEW OF SYSTEMS: Patient reports shortness of breath and fever. Ears, nose, and throat are unremarkable. Cardiovascular system is significant for shortness of breath and recurrent admissions with volume overload. Respiratory system is significant for no history of asthma or chronic obstructive pulmonary disease (COPD). She does get short of breath due to volume overload. Gastrointestinal (GI) system is significant for abdominal pain today. She has no vomiting. She does have remote history of C. difficile colitis. Genitourinary system is negative for dysuria or hematuria. Musculoskeletal system is significant for left foot osteomyelitis. Neurologic system is negative for seizures or stroke. She has history of a benign cyst removal from her brain. Psychosocial system significant for noncompliance with medications and dialysis. PHYSICAL EXAMINATION: Temperature 98.6 degrees Fahrenheit today, while earlier it was 103.1. Heart rate is 72 per minute, respiratory rate 20 per minute. Blood pressure now 121/56 mmHg, while earlier her blood pressure was 194/80. Head is atraumatic. Neck supple, and jugular venous distention (JVD) difficult to be assessed. She has a Perm-A-Cath in her right internal jugular vein. Heart sounds are regular with systolic murmur grade 2/6. Lungs with bilateral rales. Abdomen soft and minimally tender. Bowel sounds are present. Extremities without any cyanosis or clubbing. Left foot is in the dressing. Her AV fistula, left arm, is thrombosed. Neurologically she is awake and at her baseline mentation. LABORATORY DATA: WBC count is 17.2, hemoglobin 8.2, and hematocrit 25.6. ESR is 107. Sodium 132, potassium 4.2, CO2 of 29, BUN 47, creatinine 7.27. Glucose 115 and calcium 9.1. C-reactive protein 13.4. PROBLEMS: 1. End-stage renal disease. Patient did miss her dialysis yesterday and will plan to dialyze her today. 2. Shortness of breath. She is volume overloaded, and will try to remove about 3 liters of fluid as tolerated with dialysis today. 3. Hypertension. She usually has very high blood pressure. I agree with holding her antihypertensives this morning, as we plan to dialyze her and attempt to remove about 3 liters of fluid. 4. Anemia. Her anemia is worse, and she is likely to require transfusion. We will wait and see how her complete blood count (CBC) is tomorrow. 5. Osteomyelitis, left foot. This has been an ongoing issue and not improving. She is very much likely to have her foot amputated at some point. She is going to have jigsaw operator drain the abscess and clean the osteomyelitis if possible. Thank you for involving me in the care of MsCelena Chi. I will follow her along with you.
--- NOTE | 2021-03-10 19:06 | IPN ---
NEPHROLOGY PROGRESS NOTE DATE: 03/10/2021 SUBJECTIVE: Ms. Mireles is seen this morning on her bedside. She is resting at present. She had high grade fever yesterday, up to 105 degrees Fahrenheit and had a bedside debridement done of her left foot wound, which is felt to be the source of her sepsis. She was taken to the operating room (OR) this morning by Dr. Mondragon for debridement of her left foot wound. She is felt to have osteomyelitis. She was given broad spectrum antibiotics pending blood cultures, which have now come back positive for Staphylococcus aureus. Patient also had dialysis yesterday prior to her procedure. She is feeling better today and is resting comfortably now. PHYSICAL EXAMINATION: Temperature is down to 98.9 degrees Fahrenheit when earlier she was up to 102 degrees Fahrenheit this morning, heart rate 66 per minute, respiratory rate 16 per minute, blood pressure 107/59 mmHg, oxygen saturation 100% on 2 liters oxygen. HEAD: Atraumatic. NECK: Supple and dialysis catheter is present in her right internal jugular vein. HEART SOUNDS: Regular with systolic murmur grade 2/6. LUNGS: Clear to auscultation. ABDOMEN: Soft and nontender. Bowel sounds are normal.. EXTREMITIES: Without any cyanosis or clubbing. Left foot is wrapped in dressing. LABORATORY STUDIES: Today's labs show WBC 12.3, hemoglobin 8.1 and hematocrit 26.0, platelets 509. Sodium 130, potassium 4.4, CO2 29, BUN 27, creatinine 4.74, glucose 204, calcium 8.5. Total bilirubin is up to 5.3. PROBLEMS: 1. Sepsis. She has Staphylococcus aureus bacteremia, most likely related to left foot wound. She remains on broad spectrum antibiotics including vancomycin and cefepime. We also gave her one dose of gentamicin 80 mg yesterday. Final culture report is still pending. 2. End-stage renal disease. Patient was dialyzed yesterday and we will reevaluate her for next dialysis tomorrow. 3. Shortness of breath. Her volume status has improved significantly. We removed about 3.5 liters of fluid yesterday. There is no emergent need for dialysis today. 4. Hypertension. Blood pressure is low today and I would recommend to hold her antihypertensives for blood pressure below 130 mmHg. Blood pressure is most likely the result of sepsis. 5. Anemia. Her anemia has worsened related to her foot infection and end-stage renal disease. There is no emergent need for transfusion, but she is likely to require transfusion. We will check her and monitor CBC closely. 6. Diabetes. Her diabetes is better controlled in hospital, though outpatient it has not been well-controlled for a long time. Continue with current insulin regimen.
--- NOTE | 2021-03-10 19:06 | CR ---
CONSULTATION DATE: 03/09/2021 REASON FOR CONSULTATION: Left foot infection. HISTORY OF PRESENT ILLNESS: Narcisa Mireles is a 35-year-old female well-known to me who was readmitted yesterday with worsening fevers, chills and infection. She was seen by myself on her last admission and she has not kept her followup appointments in my office. She has been febrile since admission and was noted to have worsening conditions. She was tentatively planned for surgery tomorrow, Thursday morning, but due to worsening fevers, I was asked to see her earlier for further evaluation. PAST MEDICAL HISTORY: Significant for: 1. End-stage renal disease on hemodialysis Thursday, Thursday and Thursday. 2. Insulin dependent diabetes. 3. Peripheral neuropathy. 4. Retinopathy. 5. Pulmonary hypertension. 6. Trace mitral valve replacement (MVR). 7. Trace aortic valve replacement (AVR). 8. Trace tricuspid valve replacement (TVR). 9. Chronic thrombocytosis. 10. Hypertension. 11. History of Clostridium (C) difficile. PAST SURGICAL HISTORY: 1. (C) section. 2. Bilateral fifth metatarsal amputation. 3. Left foot infection and drainage with antibiotic bead placement. 4. Brain cyst. 5. Right arteriovenous (AV) fistula. 6. Permacath. FAMILY HISTORY: Diabetes. SOCIAL HISTORY: Denies smoking. Denies alcohol or other illicit drug use. PHYSICAL EXAMINATION: VITAL SIGNS: Vitals are examined. Maximum temperature (T-max) is 105.2, most recent was 102.7. LOWER EXTREMITY EXAMINATION: The foot has some edema. There is a large plantar ulceration that was present on previous admissions. There is some small purulence noted coming from the second metatarsal phalangeal joint. The second metatarsal bone is palpable. LABORATORY DATA: White blood cell count today is 17.2. Erythrocyte sedimentation rate (ESR) is 102. C-reactive protein (CRP) is 13.4. Preliminary blood cultures show gram-positive cocci in clusters. IMAGING DATA: CT of her foot shows findings consistent with abscess formation and septic joint with osteomyelitis to the second metatarsal phalangeal joint. ASSESSMENT: This is a 35-year-old diabetic female with cellulitis, abscess, osteomyelitis of the left foot. PLAN: A bedside incision with drainage was performed. The wound was expressed using a Floyd. A small amount of purulence was able to be expressed and then, using saline flushes, the wound was irrigated. We will keep her on the schedule for surgery tomorrow morning for further irrigation and drainage and likely, metatarsal head excision will follow.
[2021-03-10 20:00] VITALS: BP 134/61
[2021-03-10] MEDS: LOSARTAN 50MG TABLET PO SCH (21:51)
[2021-03-11] VITALS (10 sets, daily range): BP systolic 119–183; BP diastolic 55–90
[2021-03-11] MEDS: VANCOMYCIN ORAL SOL 250MG/5ML ORAL SYRINGE PO SCH ×4 (00:12→17:41)
[2021-03-11] MEDS: ACETAMINOPHEN TAB 650MG DOSE (2X325MG) PO PRN ×2 (05:53→16:13)
[2021-03-11 06:04] LABS: HEMATOCRIT 25.6 % (36.0-47.0); HEMOGLOBIN 8.1 g/dl (12.0-15.5); MEAN CORPUSCULAR HEMOGLOBIN 29.6 pg (27.0-33.0); MEAN CORPUSCULAR HGB CONC 31.6 g/dl (32.0-36.5); MEAN CORPUSCULAR VOLUME 93.4 fl (80.0-96.0); PLATELET COUNT, AUTOMATED 545 10^3/uL (150-450); RED BLOOD COUNT 2.74 10^6/uL (4.00-5.40); WHITE BLOOD COUNT 11.1 10^3/uL (4.0-10.0)
[2021-03-11 06:34] LABS: ALBUMIN 2.2 GM/DL (3.2-5.2); CALCIUM LEVEL 8.5 MG/DL (8.5-10.1); CREATININE FOR GFR 6.18 MG/DL (0.55-1.30); GLOMERULAR FILTRATION RATE 10.1 (>60); POTASSIUM SERUM 5.8 MEQ/L (3.5-5.1); TOTAL PROTEIN 7.5 GM/DL (6.4-8.2); VANCOMYCIN RANDOM 23.5 UG/ML
--- NOTE | 2021-03-11 08:06 | ECHO ---
DATE OF PROCEDURE: 03/09/2021 Age: 35 Gender: Female REFERRING PROVIDER: Dr. Sera Ann PATIENT LOCATION: Room 3230 REASON FOR STUDY: Bacteremia. 2D MEASUREMENTS: IVS 1.2 cm LV 4.2 cm LVPW 1.2 cm LA 4.2 cm Aorta 2.6 cm RV 3.8 cm IVC 2.5 cm DOPPLER MEASUREMENT Peak velocity across the aortic valve 2.2 m/s Peak velocity across the LVOT 1.9 m/s Peak gradient across the aortic valve 19 mmHg Mean gradient across the aortic valve 11 mmHg Mitral E 1.3 Mitral A 0.8 with a ratio of 1.5 Maximum tricuspid valve velocity 3.6 m/s 2D COMMENTS: 1. Normal left ventricular size, wall thickness, and normal global left ventricular systolic function. The estimated left ventricular systolic ejection fraction is 60% to 65%. 2. Mildly enlarged left atrium. The right atrium also appeared to be mildly enlarged. Normal right ventricle. 3. The atrial septum appeared to be normal without evidence of defect or shunt. 4. Normal aortic root. 5. Trace pericardial effusion was noted, no evidence of cardiac tamponade. 6. The aortic valve appeared to be normal. Mildly calcified mitral annulus with normal anterior mitral valve leaflet motion. Normal tricuspid valve and pulmonic valve. The proximal pulmonary artery branches appeared to be normal in size. 7. The inferior vena cava was mildly enlarged, central venous pressure might be elevated. DOPPLER: It detects mild mitral regurgitation, [id number] tricuspid regurgitation. The calculated pulmonary artery systolic pressure varied between 50-60 mmHg. Assessment of the left ventricular diastolic function appeared to be normal. IMPRESSION: 1. Normal global left ventricular systolic function. Assessment of the left ventricular diastolic function appeared to be normal. 2. Mildly enlarged left atrium with mild mitral regurgitation. 3. [id number] tricuspid regurgitation with moderately severe pulmonary hypertension. The right atrium also appeared to be mildly enlarged. 4. Trace pericardial effusion, no evidence of cardiac tamponade. 5. There are some features of elevated central venous pressure; the inferior vena cava is mildly enlarged. 6. No vegetations detected in this transthoracic echocardiogram. To consider a transesophageal echocardiogram if there is any concern. MTDD
[2021-03-11] MEDS: LACTOBACILLUS ACIDOPHILUS CAP (BACID) PO SCH ×2 (08:48→17:38)
[2021-03-11] MEDS: (RENVELA) SEVELAMER **CARBONate** 800 MG TAB PO SCH ×3 (08:48→17:38)
[2021-03-11] MEDS: HumaLOG INSULIN (NovoLOG) PER UNIT SC SCH ×4 (08:49→21:00)
[2021-03-11] MEDS: NAFCILLIN SOD 2 GM in D5W MINI-BAG PLUS 50 ML IV SCH ×4 (10:00→21:21)
[2021-03-11] MEDS ORDERED: SLF 3 ML SYR IV PRN (12:10)
[2021-03-11] MEDS: SLF 3 ML SYR IV SCH ×2 (14:27→21:21)
[2021-03-11] MEDS: HEPARIN SOD (PORCINE) 5000UNITS/ML 1ML VIAL/SYRINGE SC SCH ×2 (14:40→21:20)
[2021-03-11] MEDS: cloNIDine 0.1MG TABLET PO SCH (14:41)
[2021-03-11] MEDS: CARVedilol 12.5 MG TAB PO SCH (14:41)
[2021-03-11] MEDS: CALCITRIOL 0.25 MCG CAP (S0169) PO SCH (14:42)
[2021-03-11] MEDS: minoxidiL 2.5 MG TAB PO SCH ×2 (14:42→21:20)
[2021-03-11] MEDS: ISOSORBIDE MON. (IMDUR) 30 MG XR TAB PO SCH (14:42)
[2021-03-11] MEDS: ASPIRIN 81MG ENTERIC TABLET PO SCH (14:42)
--- NOTE | 2021-03-11 15:54 | IPNPDOC ---
Date Seen The patient was seen on 03/11/21. Progress Note SUBJECTIVE: T max overnight 100.1F, WBC improving, diarrhea decreased. See cultures below. ID consulted and to see. Changed from Vancomycin to Nafcillin as MSSA growing in blood, wound cx. Overall appears improved. HD today,taken 3 L off. OBJECTIVE: PHYSICAL EXAMINATION: VS: Please see below CONSTITUTIONAL: More awake and alert today, NAD, resting in bed, O x 3 EYES: PERRLA, EOM intact HENT, MOUTH: Normocephalic, atraumatic, moist mucous membranes, NC in place NECK: SUPPLE, no JVD, no lymphadenopathy, no carotid bruit CV: murmur, NSR, S1S2 normal, no rubs/gallops CHEST: Right upper chest permacath RESPIRATORY: Clear to auscultation bilaterally, no rales/rhonchi/wheezes GI: BS positive in 4 quadrants, soft, nontender, nondistended, no rebound or guarding, no organomegaly : Deferred MUSCULOSKELETAL: LUE PICC line (placed 03/08/21). Normal ROM. No cyanosis, clubbing, swelling, joint deformity, extremity edema INTEGUMENTARY: chronic LE skin changes. Left foot covered in bandages and ELIZABETH bandage. no rashes, no lesions, no erythema NEUROLOGIC: Decreased sensation of b/l feet-chronic. No motor deficits. Reflexes in tact Cranial Nerves II-XII are intact, no focal deficits PSYCHIATRIC: Mood and affect are normal LABORATORY DATA: Please see below MICRO: BCx x 2 sets from 03/08/21 : MSSA, sensitivities in chart BCx x 2 sets ( one peripherally- set #1, one from permacath-set #2) from 03/09/21: Set #1: Staph aureus , Set #2: NG to date BCx x 1 set from 03/11/21: pending Left foot wound cx: Staph aureus, sensitivities pending IMAGING: Echocardiogram 03/09/21: EF 60-65% 1. Normal global left ventricular systolic function. Assessment of the left ventricular diastolic function appeared to be normal. 2. Mildly enlarged left atrium with mild mitral regurgitation. 3. Yvvx-vl-harmrrab tricuspid regurgitation with moderately severe pulmonary hypertension. The right atrium also appeared to be mildly enlarged. 4. Trace pericardial effusion, no evidence of cardiac tamponade. 5. There are some features of elevated central venous pressure; the inferior vena cava is mildly enlarged. 6. No vegetations detected in this transthoracic echocardiogram. To consider a transesophageal echocardiogram if there is any concern CT abd/pelvis w/out contrast 03/09/21: Improved lung bases as described above, otherwise, no significant change from the prior exam with findings as described above. CTA of left foot 03/08/21: FINDINGS: Bones/joints: There is a enhancing joint effusion in the 2nd toe MTP joint. There is erosion of the medial 2nd metatarsal head and base of the proximal phalanx. Mild degenerative changes in the midfoot. 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 Benign-appearing periosteal reaction along the 4th metatarsal. Ankle mortise is unremarkable. No acute fracture or malalignment. Soft tissues: Generalized soft tissue swelling in the foot. There is large area of soft tissue ulceration and edema in the plantar surface of the foot at the 1st-2nd toe interspace. Peripherally enhancing fluid is present in the area of ulceration extending to the 2nd toe MTP joint measuring approximately 2.4 x 0.8 x 1.0 cm. Some soft tissue enhancement also extends along the proximal phalanx of the 2nd toe. Second smaller pocket of fluid in the dorsal 2nd toe soft tissues measuring 8 mm. IMPRESSION: Large ulceration in the plantar foot soft tissues with associated subcutaneous abscess. Septic joint with changes of osteomyelitis in the 2nd MTP joint. CT angio of chest 03/08/21: 1. Worsening ground-glass attenuation in both lungs may be due to pulmonary edema or air trapping in the setting of viral airways disease. 2. Cardiomegaly. 3. No pulmonary embolism. CXR: Improved lung menjivar otherwise no significant change. ASSESSMENT: 35-year-old female with past medical history of end-stage renal disease on hemodialysis Thursday/Thursday/Thursday, insulin-dependent diabetes mellitus type 1, peripheral neuropathy, pulmonary hypertension, hypertension, history of C. difficile admitted for SIRS +, r/o source of infection, SOB 2/2 to unknown etiology. PLAN: Abscess, large ulceration in the left plantar foot soft tissues with associated ? septic joint, osteomyelitis in the 2nd MTP joint, sepsis -POD 1 for left foot 2nd metatarsal head excision and I&D by Dr. Mondragon -WBC 11.1, T max overnight 100.1F, more awake and feeling improved -CT 's above -MSSA in all blood culture sets -CT LLE above -F/u all Cx above -Switched to nafcillin + probiotic (treatment day 4) MSSA bacteremia likely 2/2 to LLE abscess, ulcer or osteomyelitis vs. septic joint?, sepsis -Unlikely permacath as culture neg, echocardiogram (please see above) did not show vegetations -Patient does have murmur, unknown if sounds changed from prior exam. -New blood culture drawn today, f/u results -NotePatient had LUE PICC placed in ER prior to being admitted while bacteremic. So if bacteremia persists, consider MARINO or perhaps PICC contaminated. -C/w treatment above with nafcillin C. difficile infection, recurrent -Hx of c. diff in past -5 BM 03/10/21, none documented today -Stopped Cefepime 03/10/21, continued on vancomycin IV and started on Po vancomycin 03/10/21 -03/11/21 Vancomycin stopped and nafcillin started with MSSA being identified. -C/w probiotics, closely monitoring lytes -ID consulted and to see today SOB 2/2 to ground-glass attenuation in both lungs poss 2/2 pulmonary edema or air trapping in the setting of viral airways disease -S/p 3 L removed with HD on 03/09/21, currently on 2 L NC and attempting to wean down -Less likely to be CAP vs. HCAP (recent hospitalization from 01/25/21-02/19/21) -Resp panel neg but could be virus not seen on test -Pulmonary edema on CT above -BNP 29K, incr from last in system recorded as 23K (chronically elevated; however) -Supportive care, HD, does not make good urine so no diuresis Uncontrolled IDDM Type I -BS better controlled -last HbA1c 12/2020 10.3, states to be compliant with meds but is known to specialists to not be -Consider adding back home levemir 5 U SC HS 03/12/21 if eats well over next 24 hours. -C/w AC/HS ISS, CC diet, FS AC/HS, hypoglycemic protocol Transaminitis / hyperbilirubinemia likely 2/2 to venous outflow obstruction -Worked up on prior admission -MEEK, ANCA, and anti-mitochondrial ab had resulted negative. Pt ELIZABETH level elevated at 104. DDx for this include sarcoidosis -Hepatitis panel was negative in 2019; repeat negative -Liver pathology from [facility] 02/08/21: Benign liver parenchyma with dilated sinusoids, with perivenular/perisinusoidal fibrosis, suggestive of venous outflow obstruction. The iron stain shows increased iron, mostly in Kupfer cells, consistent with moderate siderosis. -Continue to monitor CMP HTN, resolved urgency -BP has been normotensive and over the past several days lower than her normal -Today systolics 150-160's -C/w all home meds -HD took off 3 L on 03/11/21 Elevated BNP likely 2/2 to renal disease -no documented diastolic dysfunction on echo above -Chronically elevated -c/w HD Peripheral neuropathy, severe -not on any home meds ESRD on HD MWF -Nephrology following Pulm HTN (PASP 50s) -C/w home meds Chronic Thrombocytosis -CBC daily Anemia likely 2/2 to ESRD - Hg at baseline -CBC daily Hyponatremia likely 2/2 ESRD and hyperglycemia combined - c/w Dialysis as scheduled Anxiety - c/w Hydroxyzine DVT px -Heparin DISPOSITION: Admitted as acute inpatient. Nephrology, Podiatry consulted. ID to see today. Plan is home when medically improved. VS, I&O, 24H, Fishbone Vital Signs/I&O Vital Signs Date Time Temp Pulse Resp B/P (MAP) Pulse Ox O2 Delivery O2 Flow Rate FiO2 03/11/21 14:41 136/76 03/11/21 14:41 91 03/11/21 14:30 2.0 03/11/21 14:19 99.4 18 98 Nasal Cannula 03/11/21 11:40 95 I&O- Last 24 Hours up to 6 AM 03/11/21 06:00 Intake Total 1760 ml Output Total 0 ml Balance 1760 ml Laboratory Data 24H LABS Laboratory Tests 2 03/10/21 17:45: Bedside Glucose (Misc Panel) 219H, Methicillin-Resist S.aureus DNA PCR NOT DETECTED 03/10/21 20:59: Bedside Glucose (Misc Panel) 201H 03/11/21 05:49: Nucleated Red Blood Cells % (auto) 0.0, Anion Gap 13, Glomerular Filtration Rate 10.1L, Calcium Level 8.5, Total Bilirubin 6.0H, Aspartate Amino Transf (AST/SGOT) 39H, Alanine Aminotransferase (ALT/SGPT) 35, Alkaline Phosphatase 746H, Total Protein 7.5, Albumin 2.2L, Albumin/Globulin Ratio 0.4L, Random Vancomycin Level 23.5 03/11/21 06:57: Bedside Glucose (Misc Panel) 214H CBC/BMP Laboratory Tests 03/11/21 05:49 Microbiology Microbiology 03/11/21 Blood Culture, Received Pending 03/10/21 Wound Culture - Preliminary, Resulted Staphylococcus Aureus 03/10/21 Anaerobic Culture, Resulted Pending 03/10/21 Gram Stain - Final, Resulted 03/10/21 Wound Culture, Resulted Pending 03/09/21 Blood Culture - Preliminary, Resulted Staphylococcus Aureus 03/09/21 Blood Culture - Preliminary, Resulted No Growth after 48 hours. All Specime... 03/08/21 Blood Culture - Final, Complete Staphylococcus Aureus 03/08/21 Blood Culture - Final, Complete Staphylococcus Aureus 03/08/21 Respiratory Virus Panel (PCR) (LINDA) - Final, Complete Sera Ann MD March 11, 2021 15:54
--- NOTE | 2021-03-11 17:43 | CR.PDOC ---
General Date of Consultation: March 11, 2021 Attending Physician: Carol Krishnamurthy MD Consultation INFECTIOUS DISEASE CONSULTATION NOTE REASON FOR CONSULTATION: Staph aureus bacteremia HISTORY OF PRESENT ILLNESS: Narcisa Mireles is a 35 YO F with history of ESRD on HD MWF, type 1 diabetes, previous c dif infection, frequent hospitalization for hypertensive//urgency who presented to [facility] on 03/08/21 after having been found to have a fever at the wound care clinic. The patient states that since her last admission and discharge on 02/19/2021, she has been attending dialysis faithfully and taking all medication as prescribed. She started seeing the wound care clinic for care of her left lower extremity foot ulcer and infected toe. She states that she saw Dr. Espinosa 3 times since [place]. Most recently, at her appointment her temperature was 103. She states she did not know that she had a fever prior to this. In the ED, she complained of shortness of breath that had begun the night prior. She had chills, weakness and fatigue. She denies any sick contacts. She was also found to have diarrhea with several bowel movements starting the day prior to admission. She does have a history of positive C. difficile PCR on 12/01/2020. On this admission, she was taken to the OR on 03/10/[address] Mondragon who did a left second head of metatarsal excision, incision and drainage for left foot osteomyelitis. He was found to have positive blood cultures 2 for MSSA on 03/08/2021 with repeat positive on 03/09/2021. Her left foot wound culture also grew MSSA. ALLERGIES: Please see below. HOME MEDICATIONS: Please see below. PAST MEDICAL/SURGICAL HISTORY: ESRD 2/2 HTN & DM / on HD TTS / Right Arm Fistula / Permacath IDDM1 with neuropathy, proliferative retinopathy s/p photocoagulation & hx of DKA Hospitalizations for hypertensive urgency Pulm HTN (PASP 50s) Trace MVR, AVR, TVR Chronic Thrombocytosis HTN (C) section Bilateral fifth metatarsal head amputations to mange osteomyelitis / DM foot ulcers Brain surgery for a cyst Hx of C.difficile colitis FAMILY HISTORY: Significant for diabetes COPD, and hypertension. SOCIAL HISTORY: Denies smoking. Denies alcohol use. Denies illicit drug use REVIEW OF SYSTEMS: Constitutional: Reports fevers, chills, Rigors, night sweats, body aches ENT/Mouth: No Hearing Changes, No Ear Pain, No Nasal Congestion, No Sinus Pain Eyes: No Eye Pain, No Swelling, No Redness, No Foreign Body, No Discharge, No Vision Changes Cardiovascular: No Chest Pain, No SOB, No PND, No Dyspnea on Exertion, No Orthopnea, No Claudication, No Edema, No Palpitations Respiratory: No Cough, No Wheezing, No Dyspnea Gastrointestinal: No Nausea, No Vomiting, No Diarrhea, No Constipation, No Pain, No Heartburn, No Anorexia, No Dysphagia, No Hematochezia, No Melena Genitourinary: Makes very little urine, denies dysuria Musculoskeletal: No Arthralgias, No Myalgias, No Joint Swelling, No Joint Stiffness, No Back Pain, No Neck Pain Skin: Reports generalized itchiness Neuro: No Weakness, No Numbness, No Paresthesias, No Loss of Consciousness, No Syncope, No Dizziness, No Headache, No Coordination Changes Psych: No Anxiety/Panic, No Depression, No Insomnia, No Personality Changes, No Delusions Heme/Lymph: No Bruising, No Bleeding, No Transfusions History, No Lymphaden opathy Endocrine: No Polyuria, No Polydipsia, No Temperature Intolerance PHYSICAL EXAMINATION: VITAL SIGNS: see below GENERAL: appears in distress, having active rigors, alert and oriented, conversa nt in full sentences HEENT: PERRL, EOMI, Oral mucous membranes are moist without lesions. Sclerae are icteric NECK: The patient has no noted JVD. No adenopathy is appreciated. No thyromegaly CHEST/LUNGS: Lungs are clear bilaterally without rhonchi, rales, or wheezes. There is no subcutaneous air appreciated. There is no tenderness to the chest wall. CHEST WALL: tunneled dialysis catheter present in R chest wall, nontender, no signs of erythema HEART: Regular rate and rhythm. 3/6 BARRON in RUSB. Distal pulses are 2+. No carotid bruits appreciated. ABDOMEN: Soft, nontender, somewhat distended. Bowel sounds are positive. No organomegaly is appreciated. No masses are appreciated. There are no peritoneal signs. There is no [place] sign. EXTREMITIES: No peripheral edema. There is no focal long bone tenderness or deformity. Left foot has ~2cm incision (packing removed) ~1cm deep oozing blood, plantar surface of left foot has ~4cm vertical incision. Both open wounds do not appear to be infected, not oozing pus SKIN: The patients skin is very dry, without rashes or lesions, scratch allen all obver PSYCHIATRIC: AAO x 3, normal mood/affect NEUROLOGIC: No obvious focal deficits LABORATORY DATA: Please see below. TRANSTHORACIC ECHOCARDIOGRAM: IMPRESSION: 1. Normal global left ventricular systolic function. Assessment of the left ventricular diastolic function appeared to be normal. 2. Mildly enlarged left atrium with mild mitral regurgitation. 3. Synm-eh-epwdwynz tricuspid regurgitation with moderately severe pulmonary hypertension. The right atrium also appeared to be mildly enlarged. 4. Trace pericardial effusion, no evidence of cardiac tamponade. 5. There are some features of elevated central venous pressure; the inferior vena cava is mildly enlarged. 6. No vegetations detected in this transthoracic echocardiogram. To consider a transesophageal echocardiogram if there is any concern. ASSESSMENT: This is a 35 YO F with T1DM, ESRD on HD MWF through [facility], HTN who presented with shortness of breath, fevers (Tmax 105)found to have MSSA bacteremia concerning for ongoing left foot osteomyelitis / abscess had drainage procedure , due to persistent bacteremia concern she has HD line infection and possibly endocarditis. PLAN: 1. Sepsis 2/2 MSSA bacteremia: concern for endocarditis, HD line infection -Continue IV Nafcillin 2 gm Q4 hours switch from IV vancomycin -Recommend vascular surgery consult tomorrow for replacement of HD catheter (to coordinate with HD on Thursday). Discussed this with Dr. Erika Bates who is in agreement with this plan -Recommend consulting cardiology for MARINO this week to rule out endocarditis Repeat blood culture until 2 days negative 2. Left foot osteomyelitis: s/p I&D and metatarsal amputation 03/09/21 -Plan to return to OR for closure of wound in the next few days -Continue wound care per Podiatry dr Mondragon with wet to dry dressings 3. C difficile infection recurrent : last positive c diff PCR 12/01/20 -Continue oral Vancomycin for now she seem to have improved, denied any diarrhea today. Nursing reports no bowel movements today. -Continue probiotic BID -Would benefit from Zinplava IV to decrease risk of recurrence as outpatient as this is her second occurence in past 4 months and will need prolonged ATBX therapy DISPO: continue antibiotics, needs HD line replaced, needs MARINO Vital Signs/I&O Vital Signs Date Time Temp Pulse Resp B/P (MAP) Pulse Ox O2 Delivery O2 Flow Rate FiO2 03/11/21 17:05 100.5 03/11/21 16:04 89 18 129/55 (79) 98 Nasal Cannula 2.0 03/11/21 11:40 95 I&O- Last 24 Hours up to 6 AM 03/11/21 06:00 Intake Total 1760 ml Output Total 0 ml Balance 1760 ml Laboratory Data Labs 24H Laboratory Tests 2 03/10/21 17:45: Bedside Glucose (Misc Panel) 219H, Methicillin-Resist S.aureus DNA PCR NOT DETECTED 03/10/21 20:59: Bedside Glucose (Misc Panel) 201H 03/11/21 05:49: Nucleated Red Blood Cells % (auto) 0.0, Anion Gap 13, Glomerular Filtration Rate 10.1L, Calcium Level 8.5, Total Bilirubin 6.0H, Aspartate Amino Transf (AST/SGOT) 39H, Alanine Aminotransferase (ALT/SGPT) 35, Alkaline Phosphatase 746H, Total Protein 7.5, Albumin 2.2L, Albumin/Globulin Ratio 0.4L, Random Vancomycin Level 23.5 03/11/21 06:57: Bedside Glucose (Misc Panel) 214H 03/11/21 16:28: Bedside Glucose (Misc Panel) 189H CBC/BMP Laboratory Tests 03/11/21 05:49 Microbiology Microbiology 03/11/21 Blood Culture, Received Pending 03/10/21 Wound Culture - Preliminary, Resulted Staphylococcus Aureus 03/10/21 Anaerobic Culture, Resulted Pending 03/10/21 Gram Stain - Final, Resulted 03/10/21 Wound Culture, Resulted Pending 03/09/21 Blood Culture - Preliminary, Resulted Staphylococcus Aureus 03/09/21 Blood Culture - Preliminary, Resulted No Growth after 48 hours. All Specime... 03/08/21 Blood Culture - Final, Complete Staphylococcus Aureus 03/08/21 Blood Culture - Final, Complete Staphylococcus Aureus 03/08/21 Respiratory Virus Panel (PCR) (LINDA) - Final, Complete Allergies Coded Allergies: cinacalcet (Verified Allergy, Unknown, 11/25/20) latex (Verified Allergy, Unknown, 11/03/19) morphine (Verified Allergy, Unknown, 11/03/19) peanut (Verified Allergy, Unknown, 11/25/20) TAPE (Verified Adverse Reaction, Intermediate, IRRITATES SKIN, 11/03/19) USE PAPER TAPE ONL;Y Home Medications Scheduled Amlodipine Besylate (Amlodipine Besylate) 10 Mg Tablet, 10 MG PO DAILY, (Reported) Aspirin (Aspirin EC) 81 Mg Tablet.dr, 81 MG PO DAILY, (Reported) Calcitriol (Calcitriol) 0.25 Mcg Capsule, 0.25 MCG PO DAILY, (Reported) Carvedilol (Carvedilol) 25 Mg Tablet, 25 MG PO DAILY, (Reported) Clonidine HCl (Clonidine HCl) 0.3 Mg Tablet, 0.3 MG PO DAILY, (Reported) Ergocalciferol (Vitamin D2) (Vitamin D2) 50,000 Units Cap, 50,000 UNITS PO QWEEK, (Reported) THURSDAY Insulin Glargine,Hum.rec.anlog (Basaglar Kwikpen U-100) 100 Unit/1 Ml Insuln.pen, 5 UNIT SC QHS, (Reported) Insulin Human Lispro (Novolog) 100 Unit/1 Ml Vial, 1 DOSE SC AC, (Reported) PER SLIDING SCALE Isosorbide Mononitrate (Isosorbide Mononitrate ER) 30 Mg Tab.er.24h, 90 MG PO DAILY, (Reported) L.acidoph/L.bulg/B.bif/S.therm (Tonja-Bid Caplet) 1 Each Tablet, 1 TAB PO BIDWM, (Reported) Losartan Potassium (Losartan Potassium) 100 Mg Tablet, 100 MG PO QHS, (Reported) Minoxidil (Minoxidil) 2.5 Mg Tablet, 2.5 MG PO BID, (Reported) Sevelamer Carbonate (Sevelamer Carbonate) 800 Mg Tablet, 1,600 MG PO WM, (Repo rted) WITH MEALS Scheduled PRN Sevelamer Carbonate (Sevelamer Carbonate) 800 Mg Tablet, 800 MG PO BID PRN for SNACKS, (Reported) GME ATTESTATION GME ATTESTATION My faculty preceptor for this patient encounter was physically present during the encounter and was fully available. All aspects of the patient interview, examination, medical decision making process, and medical care plan development were reviewed and approved by the faculty preceptor. The faculty preceptor is aware and concurs with the plan as stated in the body of this note and will attest to such by his/her cosignature. DREW WASSERMAN MD March 11, 2021 17:43 Carol Krishnamurthy MD March 11, 2021 21:32
[2021-03-11] MEDS ORDERED: VANICREAM MOISTURIZING SKIN CREAM 113GM TUBE TOP PRN (17:45)
--- NOTE | 2021-03-11 19:33 | IPN ---
PROGRESS NOTE DATE: 03/11/2021 SUBJECTIVE: Patient seen and examined at bedside. Notes some persisting fevers and rigors. OBJECTIVE: T-max 100.5. Lower extremity examination wound base is inspected and there is no further purulence noted. LABORATORY DATA: White blood cell count is 11.1. ASSESSMENT: A 35-year-old diabetic female with sepsis, bacteremia, and osteomyelitis status post left second metatarsal head excision and incision and drainage. PLAN: Continue antibiotics per infectious disease recommendations. Continue saline wet-to-dry dressing. The patient tentatively will be scheduled for Thursday for wound closure.
[2021-03-11] MEDS: LOSARTAN 50MG TABLET PO SCH (21:19)
[2021-03-12] VITALS: BP 140/85
[2021-03-12] MEDS: NAFCILLIN SOD 2 GM in D5W MINI-BAG PLUS 50 ML IV SCH ×6 (01:10→21:15)
[2021-03-12] MEDS: ACETAMINOPHEN TAB 650MG DOSE (2X325MG) PO PRN ×2 (01:11→21:16)
[2021-03-12 04:00] VITALS: BP 140/76
[2021-03-12] MEDS: SLF 3 ML SYR IV SCH ×3 (05:15→21:17)
[2021-03-12] MEDS: VANCOMYCIN ORAL SOL 250MG/5ML ORAL SYRINGE PO SCH ×5 (05:15→23:56)
[2021-03-12 05:20] LABS: HEMATOCRIT 28.5 % (36.0-47.0); HEMOGLOBIN 9.3 g/dl (12.0-15.5); MEAN CORPUSCULAR HEMOGLOBIN 30.1 pg (27.0-33.0); MEAN CORPUSCULAR HGB CONC 32.6 g/dl (32.0-36.5); MEAN CORPUSCULAR VOLUME 92.2 fl (80.0-96.0); PLATELET COUNT, AUTOMATED 586 10^3/uL (150-450); RED BLOOD COUNT 3.09 10^6/uL (4.00-5.40); WHITE BLOOD COUNT 11.2 10^3/uL (4.0-10.0)
[2021-03-12 05:48] LABS: ALBUMIN 1.8 GM/DL (3.2-5.2); BILIRUBIN,TOTAL 6.5 MG/DL (0.2-1.0); CALCIUM LEVEL 8.1 MG/DL (8.5-10.1); CREATININE FOR GFR 4.42 MG/DL (0.55-1.30); GLOMERULAR FILTRATION RATE 14.8 (>60); POTASSIUM SERUM 4.3 MEQ/L (3.5-5.1); TOTAL PROTEIN 6.9 GM/DL (6.4-8.2)
[2021-03-12 07:51] VITALS: BP 112/68
[2021-03-12] MEDS: ISOSORBIDE MON. (IMDUR) 30 MG XR TAB PO SCH (08:37)
[2021-03-12] MEDS: CARVedilol 12.5 MG TAB PO SCH (08:37)
[2021-03-12] MEDS: minoxidiL 2.5 MG TAB PO SCH ×2 (08:37→21:16)
[2021-03-12] MEDS: cloNIDine 0.1MG TABLET PO SCH (08:37)
[2021-03-12] MEDS: ASPIRIN 81MG ENTERIC TABLET PO SCH (08:44)
[2021-03-12] MEDS: HEPARIN SOD (PORCINE) 5000UNITS/ML 1ML VIAL/SYRINGE SC SCH ×2 (08:44→21:15)
[2021-03-12] MEDS: (RENVELA) SEVELAMER **CARBONate** 800 MG TAB PO SCH ×3 (08:44→17:27)
[2021-03-12] MEDS: HumaLOG INSULIN (NovoLOG) PER UNIT SC SCH ×4 (08:44→21:15)
[2021-03-12] MEDS: CALCITRIOL 0.25 MCG CAP (S0169) PO SCH (08:44)
[2021-03-12] MEDS: LACTOBACILLUS ACIDOPHILUS CAP (BACID) PO SCH ×2 (08:45→17:27)
[2021-03-12 11:43] VITALS: BP 110/68
--- NOTE | 2021-03-12 11:55 | IPN ---
PROGRESS NOTE DATE: 03/12/2021 SUBJECTIVE: Ms. Mireles is seen this morning on her bedside. She is laying on her bed comfortably and denies any acute distress. She has no fever anymore and feels much better now. She denies any nausea or vomiting. Patient was dialyzed yesterday and she tolerated her dialysis well. PHYSICAL EXAMINATION: VITALS: Temperature 97.4 degrees Fahrenheit, heart rate 78 per minute, respiratory rate 18 per minute, blood pressure 112/68 mmHg, oxygen saturation 98% on 2 liters oxygen. HEENT: Head is atraumatic. Neck is supple and without JVD or thyroid enlargement. Hemodialysis cath is intact in right internal jugular vein without any signs of infection at the exit site. LUNGS: Clear to auscultation. HEART: Sounds are regular. Systolic murmur grade 2/6 is unchanged. ABDOMEN: Soft and nontender. Bowel sounds are normal. EXTREMITIES: Without any cyanosis or clubbing. Left foot is in the dressing. NEUROLOGIC: She is awake, alert and at her baseline mentation. LABORATORY STUDIES: Today's labs show WBC 11.2, hemoglobin 9.3, hematocrit 28.5. Sodium 132, potassium 4.3, CO2 29, BUN 24 and creatinine 4.42. Glucose 202 and calcium 8.1. Her blood cultures drawn yesterday are negative so far and she had another blood culture drawn today. Last blood culture from March 10 was positive for Staph Aureus and wound culture also positive for Staph Aureus. PROBLEMS: 1. Staph Aureus bacteremia: Patient is currently afebrile and mostly some blood cultures negative so far. She has been on antibiotics including Vancomycin and Nafcillin. She is being followed by infectious disease. Intravenous Vancomycin has been now stopped, and she is only on intravenous Nafcillin. 2. C. diff colitis: She has recently tested positive for colitis again and is now on oral Vancomycin 125 mg every 6 hours. 3. End-stage renal disease: She is currently resting and was dialyzed yesterday. She tolerated her dialysis well. Next dialysis will be scheduled for tomorrow. 4. Hypertension: Blood pressure is very well controlled and in fact somewhat low for her. She remains on chronic antihypertensive medications. 5. Anemia: She was transfused 1 unit of packed RBCs yesterday and anemia has improved. We will continue with weekly dose of Aranesp in dialysis. 6. Hyperkalemia: Yesterday her potassium was 5.8 and she was dialyzed. Her hyperkalemia has improved and resolved. 7. Left foot osteomyelitis: Patient did have her wound debrided a couple of days ago and wound culture is also positive for Staph Aureus, which is most likely the source of her bacteremia. We will continue the antibiotics at present as recommended by infectious disease and follow-up with her cultures. I will also get a C-reactive protein for tomorrow to see if there is any trend for improvement.
--- NOTE | 2021-03-12 14:19 | IPNPDOC ---
Text Note Date of Service The patient was seen on 03/12/21. NOTE SUBJECTIVE: -Afebrile overnight -on 2L NC -No acute complaints OBJECTIVE: VS: Please see below CONSTITUTIONAL: NAD, AO x 3 EYES: PERRLA, EOM intact HENT, MOUTH: Normocephalic, atraumatic, moist mucous membranes, NC in place on 2L NECK: SUPPLE, no JVD, no lymphadenopathy, no carotid bruit CV: murmur, NSR, S1S2 normal, no rubs/gallops CHEST: Right upper chest permacath RESPIRATORY: Clear to auscultation bilaterally, no rales/rhonchi/wheezes GI: Normoactive bowel sounds in all 4 quadrants, soft, nontender, nondistended, no rebound or guarding, no organomegaly MUSCULOSKELETAL: LUE PICC line (placed 03/08/21). Normal ROM. No cyanosis, clubbing, swelling, joint deformity, extremity edema INTEGUMENTARY: chronic LE skin changes. Left foot covered in bandages, no noted leakage. no rashes, no lesions, no erythema NEUROLOGIC: Decreased sensation of b/l feet-chronic. No motor deficits. Cranial Nerves II-XII are intact, no focal deficits PSYCHIATRIC: Mood and affect are normal LABORATORY DATA: WBC 11.2 Hgb 9.3 platelets 586 na 132 K 4 Cr 4.42 MICRO: BCx x 2 sets from 03/08/21 : MSSA, sensitivities in chart BCx x 2 sets ( one peripherally- set #1, one from permacath-set #2) from 03/09/21: Set #1: Staph aureus , Set #2: NG to date BCx x 1 set from 03/11/21: NGTD Left foot wound cx: Staph aureus, MSSA IMAGING: Echocardiogram 03/09/21: EF 60-65% 1. Normal global left ventricular systolic function. Assessment of the left ventricular diastolic function appeared to be normal. 2. Mildly enlarged left atrium with mild mitral regurgitation. 3. Tmzx-vd-sotnwvse tricuspid regurgitation with moderately severe pulmonary hypertension. The right atrium also appeared to be mildly enlarged. 4. Trace pericardial effusion, no evidence of cardiac tamponade. 5. There are some features of elevated central venous pressure; the inferior vena cava is mildly enlarged. 6. No vegetations detected in this transthoracic echocardiogram. To consider a transesophageal echocardiogram if there is any concern CT abd/pelvis w/out contrast 03/09/21: Improved lung bases as described above, otherwise, no significant change from the prior exam with findings as described above. CTA of left foot 03/08/21: FINDINGS: Bones/joints: There is a enhancing joint effusion in the 2nd toe MTP joint. There is erosion of the medial 2nd metatarsal head and base of the proximal phalanx. Mild degenerative changes in the midfoot. 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 Benign-appearing periosteal reaction along the 4th metatarsal. Ankle mortise is unremarkable. No acute fracture or malalignment. Soft tissues: Generalized soft tissue swelling in the foot. There is large area of soft tissue ulceration and edema in the plantar surface of the foot at the 1st-2nd toe interspace. Peripherally enhancing fluid is present in the area of ulceration extending to the 2nd toe MTP joint measuring approximately 2.4 x 0.8 x 1.0 cm. Some soft tissue enhancement also extends along the proximal phalanx of the 2nd toe. Second smaller pocket of fluid in the dorsal 2nd toe soft tissues measuring 8 mm. IMPRESSION: Large ulceration in the plantar foot soft tissues with associated subcutaneous abscess. Septic joint with changes of osteomyelitis in the 2nd MTP joint. CT angio of chest 03/08/21: 1. Worsening ground-glass attenuation in both lungs may be due to pulmonary edema or air trapping in the setting of viral airways disease. 2. Cardiomegaly. 3. No pulmonary embolism. CXR: Improved lung menjivar otherwise no significant change. ASSESSMENT: 35-year-old female with past medical history of end-stage renal disease on hemodialysis Thursday/Thursday/Thursday, insulin-dependent diabetes mellitus type 1, peripheral neuropathy, pulmonary hypertension, hypertension, history of C. difficile admitted for sepsis with MSSA bacteremia and L foot abscess and osteomyelitis. PLAN: Abscess, large ulceration in the left plantar foot soft tissues with associated ? septic joint, osteomyelitis in the 2nd MTP joint, sepsis with bacteremia -POD 2 for left foot 2nd metatarsal head excision and I&D by Dr. Mondragon, plans to return to OR tomorrow 03/13 -CT as above -MSSA in all blood culture sets and wound culture -F/u all repeat BCx -Switched to nafcillin on 03/11 + probiotic (treatment day 5, day 2 post excision) MSSA bacteremia likely 2/2 to LLE abscess with osteomyelitis and potential septic joint? with severe sepsis -Unlikely permacath as culture neg, echocardiogram (please see above) did not show vegetations -f/u repeat BCx, NGTD -NotePatient had LUE PICC placed in ER prior to being admitted while bacteremic. Spoke with Dr. Krishnamurthy who recommended monitoring for the next 24h and if she continued to have more +BCx or febrile, will have to replace permacath. Will order MARINO. -C/w treatment above with nafcillin C. difficile infection, recurrent -Hx of c. diff in past -Started on Po vancomycin 03/10/21, day 3 -C/w probiotics, closely monitoring lytes SOB 2/2 to ground-glass attenuation in both lungs poss 2/2 pulmonary edema or air trapping in the setting of viral airways disease -S/p 3 L removed with HD on 03/09/21, currently on 2 L NC and attempting to wean down -Less likely to be CAP vs. HCAP (recent hospitalization from 01/25/21-02/19/21), currently on nafcillin -Resp panel neg -Had some pulmonary edema on CT above -BNP 29K, incr from last in system recorded as 23K (chronically elevated; however) -Supportive care, volume management via HD Uncontrolled IDDM Type I -last HbA1c 12/2020 10.3, states to be compliant with meds but is known to specialists to not be -Consider adding back home levemir 5 U SC HS if eats well over next 24 hours. -C/w AC/HS ISS, CC diet, FS AC/HS, hypoglycemic protocol Transaminitis / hyperbilirubinemia likely 2/2 to venous outflow obstruction -Worked up on prior admission -MEEK, ANCA, and anti-mitochondrial ab had resulted negative. Pt ELIZABETH level elevated at 104. DDx for this include sarcoidosis -Hepatitis panel was negative in 2019; repeat negative -Liver pathology from [facility] 02/08/21: Benign liver parenchyma with dilated sinusoids, with perivenular/perisinusoidal fibrosis, suggestive of venous outflow obstruction. The iron stain shows increased iron, mostly in Kupfer cells, consistent with moderate siderosis. -Continue to monitor CMP HTN, resolved urgency -BP has been normotensive and over the past several days lower than her normal -Today systolics 150-160's -C/w all home meds as hemodynamics allow. This AM meds were held as she was normotensive. Elevated BNP likely 2/2 to renal disease -no documented diastolic dysfunction on echo above -Chronically elevated -c/w HD Peripheral neuropathy, severe -not on any home meds ESRD on HD MWF -Nephrology following Pulm HTN (PASP 50s) -C/w home meds Chronic Thrombocytosis -CBC daily Anemia likely 2/2 to ESRD - Hg at baseline -CBC daily Hyponatremia likely 2/2 ESRD and hyperglycemia combined - c/w Dialysis as scheduled Anxiety - c/w Hydroxyzine DVT px -Heparin DISPOSITION: Admitted as acute inpatient. Nephrology, Podiatry consulted. ID consulted. Plan is home when medically improved. VS,Fishbone, I+O VS, Fishbone, I+O Laboratory Tests 03/12/21 04:54 Vital Signs Date Time Temp Pulse Resp B/P (MAP) Pulse Ox O2 Delivery O2 Flow Rate FiO2 03/12/21 07:51 97.4 78 18 112/68 (83) 98 Nasal Cannula 2.0 03/11/21 11:40 95 I&O- Last 24 Hours up to 6 AM 03/12/21 06:00 Intake Total 1200 ml Output Total 3600 ml Balance -2400 ml KRISTI PANDA MD March 12, 2021 08:46
[2021-03-12 16:05] VITALS: BP 108/66
[2021-03-12 20:00] VITALS: BP 120/72
[2021-03-12] MEDS: LOSARTAN 50MG TABLET PO SCH (21:16)
[2021-03-13] VITALS (12 sets, daily range): BP systolic 110–161; BP diastolic 56–86
[2021-03-13] MEDS ORDERED: diphenhydrAMINE 50MG/ML VIAL (J1200) IV ONE (00:40)
[2021-03-13] MEDS: NAFCILLIN SOD 2 GM in D5W MINI-BAG PLUS 50 ML IV SCH ×6 (01:39→21:32)
[2021-03-13 05:44] LABS: HEMATOCRIT 31.1 % (36.0-47.0); HEMOGLOBIN 10.3 g/dl (12.0-15.5); MEAN CORPUSCULAR HGB CONC 33.1 g/dl (32.0-36.5); MEAN CORPUSCULAR VOLUME 90.7 fl (80.0-96.0); PLATELET COUNT, AUTOMATED 644 10^3/uL (150-450); RED BLOOD COUNT 3.43 10^6/uL (4.00-5.40); WHITE BLOOD COUNT 10.8 10^3/uL (4.0-10.0)
[2021-03-13] MEDS: VANCOMYCIN ORAL SOL 250MG/5ML ORAL SYRINGE PO SCH ×4 (05:51→23:24)
[2021-03-13] MEDS: SLF 3 ML SYR IV SCH ×3 (05:53→22:00)
[2021-03-13 06:10] LABS: ALBUMIN 1.5 GM/DL (3.2-5.2); BILIRUBIN,TOTAL 6.9 MG/DL (0.2-1.0); CREATININE FOR GFR 5.54 MG/DL (0.55-1.30); GLOMERULAR FILTRATION RATE 11.4 (>60); POTASSIUM SERUM 3.9 MEQ/L (3.5-5.1); TOTAL PROTEIN 7.1 GM/DL (6.4-8.2)
[2021-03-13] MEDS: HumaLOG INSULIN (NovoLOG) PER UNIT SC SCH ×4 (07:55→21:00)
[2021-03-13] MEDS: HEPARIN SOD (PORCINE) 5000UNITS/ML 1ML VIAL/SYRINGE SC SCH ×2 (07:55→21:00)
[2021-03-13] MEDS: LACTOBACILLUS ACIDOPHILUS CAP (BACID) PO SCH ×2 (07:55→18:04)
[2021-03-13] MEDS: CALCITRIOL 0.25 MCG CAP (S0169) PO SCH (07:56)
[2021-03-13] MEDS: (RENVELA) SEVELAMER **CARBONate** 800 MG TAB PO SCH ×3 (07:56→18:04)
[2021-03-13] MEDS: ASPIRIN 81MG ENTERIC TABLET PO SCH (07:56)
[2021-03-13] MEDS: ISOSORBIDE MON. (IMDUR) 30 MG XR TAB PO SCH (09:00)
[2021-03-13] MEDS: CARVedilol 12.5 MG TAB PO SCH (09:00)
[2021-03-13] MEDS: minoxidiL 2.5 MG TAB PO SCH ×2 (09:00→21:32)
[2021-03-13] MEDS: cloNIDine 0.1MG TABLET PO SCH (09:00)
[2021-03-13] MEDS ORDERED: LIDOCAINE 2% 100MG/5ML SDV (FOR ANES.) As Ordered ONE (12:00)
[2021-03-13] MEDS ORDERED: MIDAZOLAM INJ 2MG/2ML VIAL (J2250 PER 1MG) As Ordered ONE (12:00)
[2021-03-13] MEDS ORDERED: propofoL 200 MG/20 ML VIAL As Ordered ONE (12:00)
[2021-03-13] MEDS ORDERED: fentaNYL 100 MCG/2 ML INJECTION (J3010) As Ordered ONE ×2 (12:00→14:19)
--- NOTE | 2021-03-13 12:01 | IPN ---
NEPHROLOGY PROGRESS NOTE DATE: 03/13/2021 SUBJECTIVE: Ms. Mireles is seen this morning during hemodialysis. She is resting comfortably during dialysis. She has no dyspnea or chest pain and no fever or chills. PHYSICAL EXAMINATION: Vital signs: Temperature 97.2 degrees Fahrenheit, heart rate 80 per minute and respiratory rate 16 per minute. Blood pressure 132/64 mmHg and oxygen saturation 100 % on 2 liters oxygen. Head: Atraumatic. Neck: Supple and without JVD or thyroid enlargement. Heart: Sounds are regular with systolic murmur grade 2/6 which is unchanged. Lungs: Clear to auscultation. Abdomen: Soft and nontender and bowel sounds are normal. Extremities: Without any cyanosis or clubbing. Neurologically: She has no focal deficit. LABORATORY DATA: Today's labs show WBC count 10.8, hemoglobin 10.3, hematocrit 31 and platelets 644. Sodium 128, potassium 3.9, BUN 32, creatinine 5.54, glucose 228. C-reactive protein is down to 11.6; it was 13.4 on March 09. Her albumin is down to 1.5 and total protein 7.1. PROBLEMS/PLAN: 1. End-stage renal disease: Patient is being dialyzed and she is tolerating dialysis well. Her dialysis catheter is working. 2. Hyponatremia: This is related to ongoing infection and renal failure. This will improve with dialysis. She should follow fluid restriction of 1500 mL per day. 3. Staph aureus bacteremia: Patient has been on intravenous nafcillin and most recent blood cultures from March 12 and March 11 are negative so far. 4. Left foot osteomyelitis: Patient had Staph aureus positive in wound culture and in blood culture. She is being treated with antibiotics and already had debridement done by podiatry. Further procedure is scheduled for later this afternoon. 5. Anemia: Her anemia has improved with transfusion and she will continue with weekly dose of Aranesp. 6. Thrombocytosis: This is a chronic issue and persists without any significant change. 7. Hypertension: Blood pressure seems to be very well controlled now and she remains on chronic anti-hypertensive meds.
[2021-03-13] MEDS ORDERED: LIDOCAINE 1% MDV 20ML VIAL As Ordered ONE (13:28)
[2021-03-13] MEDS ORDERED: VANCOMYCIN 1000MG/20ML VIAL As Ordered ONE (13:28)
[2021-03-13] MEDS ORDERED: BUPIVACAINE HCL 0.5% 10ML VIAL As Ordered ONE (13:28)
[2021-03-13] MEDS ORDERED: fentaNYL 100 MCG/2 ML INJECTION (J3010) IV PRN (14:25)
[2021-03-13] MEDS ORDERED: ONDANSETRON 4MG/2ML VIAL IV PRN (14:25)
[2021-03-13] MEDS ORDERED: PERCOCET 5MG/325MG TAB PO PRN (14:25)
[2021-03-13] MEDS ORDERED: NS 1,000 ML IV SCH (14:25)
--- NOTE | 2021-03-13 15:25 | RO ---
OPERATIVE NOTE DATE OF OPERATION: 03/13/2021 PREOPERATIVE DIAGNOSIS: Left foot wound and infection. POSTOPERATIVE DIAGNOSIS: Left foot wound and infection. PROCEDURE: Left foot irrigation and partial wound closure with insertion of antibiotic beads. SURGEON: Butch Mondragon DPM VEGETABLE FARMWORKER: None. ANESTHESIA: Monitored anesthesia care, preop injection of 10 mL of 1:1 mixture of 1% Lidocaine plain and 0.5% Marcaine plain. ESTIMATED BLOOD LOSS: Minimal. MATERIALS: 2-0 nylon as well as Osteoset beads mixed with 1 gm Vancomycin powder. COMPLICATIONS: None. CONDITION: Stable. INDICATIONS: Narcisa Mireles is a 35-year-old female who had recent incision and drainage infected metatarsal head excision. She has been on antibiotic therapy. Wound was inspected and has been improving. Decision was made to bring her to the operating room for partial wound closure. The patient site and side were identified and marked in preoperative holding area. Consent was reviewed and obtained. Risks, complications and alternatives to the procedure were explained to the patient and all questions were answered. DESCRIPTION OF PROCEDURE: The patient was brought to the operating room on stretcher in supine position. Monitored anesthesia care was delivered by anesthesia team. Preop injection of 10 mL of 1:1 mixture of 1% Lidocaine plain and 0.5% Marcaine plain given. Dorsal and plantar wounds were inspected. No necrotic tissue, no purulence was noted. Site was irrigated with normal saline using bulb syringe. The antibiotic beads were placed into the dorsal wound and the dorsal wound was sutured closed using 2-0 nylon. Plantar wound was covered with gauze and sterile gauze dressing was applied to the left foot. The patient was brought to PACU with vital signs stable and neurovascular status intact. She will be admitted to the floor for continued antibiotics and monitoring.
--- NOTE | 2021-03-13 17:18 | IPNPDOC ---
Text Note Date of Service The patient was seen on 03/13/21. NOTE SUBJECTIVE: -Afebrile overnight -on 2L NC -NPO for OR with Dr. Mondragon today OBJECTIVE: VS: Please see below CONSTITUTIONAL: NAD, AO x 3 EYES: PERRLA, EOM intact HENT, MOUTH: Normocephalic, atraumatic, moist mucous membranes, NC in place on 2L NECK: SUPPLE, no JVD, no lymphadenopathy, no carotid bruit CV: murmur, NSR, S1S2 normal, no rubs/gallops CHEST: Right upper chest permacath RESPIRATORY: Clear to auscultation bilaterally, no rales/rhonchi/wheezes GI: Normoactive bowel sounds in all 4 quadrants, soft, nontender, nondistended, no rebound or guarding, no organomegaly MUSCULOSKELETAL: LUE PICC line (placed 03/08/21). Normal ROM. No cyanosis, clubbing, swelling, joint deformity, extremity edema INTEGUMENTARY: chronic LE skin changes. Left foot covered in bandages, no noted leakage. no rashes, no lesions, no erythema NEUROLOGIC: Decreased sensation of b/l feet-chronic. No motor deficits. Cranial Nerves II-XII are intact, no focal deficits PSYCHIATRIC: Mood and affect are normal LABORATORY DATA: WBC 10.8 Hgb 10.3 platelets 644 na 128 K 3.9 Cr 5.54 MICRO: BCx x 2 sets from 03/08/21 : MSSA, sensitivities in chart BCx x 2 sets ( one peripherally- set #1, one from permacath-set #2) from 03/09/21: Set #1: Staph aureus , Set #2: NG to date BCx x 1 set from 03/11/21: NGTD Left foot wound cx: Staph aureus, MSSA IMAGING: Echocardiogram 03/09/21: EF 60-65% 1. Normal global left ventricular systolic function. Assessment of the left ventricular diastolic function appeared to be normal. 2. Mildly enlarged left atrium with mild mitral regurgitation. 3. Wtvq-qs-ksabxufy tricuspid regurgitation with moderately severe pulmonary hypertension. The right atrium also appeared to be mildly enlarged. 4. Trace pericardial effusion, no evidence of cardiac tamponade. 5. There are some features of elevated central venous pressure; the inferior vena cava is mildly enlarged. 6. No vegetations detected in this transthoracic echocardiogram. To consider a transesophageal echocardiogram if there is any concern CT abd/pelvis w/out contrast 03/09/21: Improved lung bases as described above, otherwise, no significant change from the prior exam with findings as described above. CTA of left foot 03/08/21: FINDINGS: Bones/joints: There is a enhancing joint effusion in the 2nd toe MTP joint. There is erosion of the medial 2nd metatarsal head and base of the proximal phalanx. Mild degenerative changes in the midfoot. 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 Benign-appearing periosteal reaction along the 4th metatarsal. Ankle mortise is unremarkable. No acute fracture or malalignment. Soft tissues: Generalized soft tissue swelling in the foot. There is large area of soft tissue ulceration and edema in the plantar surface of the foot at the 1st-2nd toe interspace. Peripherally enhancing fluid is present in the area of ulceration extending to the 2nd toe MTP joint measuring approximately 2.4 x 0.8 x 1.0 cm. Some soft tissue enhancement also extends along the proximal phalanx of the 2nd toe. Second smaller pocket of fluid in the dorsal 2nd toe soft tissues measuring 8 mm. IMPRESSION: Large ulceration in the plantar foot soft tissues with associated subcutaneous abscess. Septic joint with changes of osteomyelitis in the 2nd MTP joint. CT angio of chest 03/08/21: 1. Worsening ground-glass attenuation in both lungs may be due to pulmonary edema or air trapping in the setting of viral airways disease. 2. Cardiomegaly. 3. No pulmonary embolism. CXR: Improved lung menjivar otherwise no significant change. ASSESSMENT: 35-year-old female with past medical history of end-stage renal disease on hemodialysis Thursday/Thursday/Thursday, insulin-dependent diabetes mellitus type 1, peripheral neuropathy, pulmonary hypertension, hypertension, history of C. difficile admitted for sepsis with MSSA bacteremia and L foot abscess and osteomyelitis. PLAN: Abscess, large ulceration in the left plantar foot soft tissues with associated ? septic joint, osteomyelitis in the 2nd MTP joint, sepsis with bacteremia -POD 3 for left foot 2nd metatarsal head excision and I&D by Dr. Mondragon, returned to the OR today -CT as above -MSSA in all blood culture sets and wound culture until 03/11, negative since then -F/u all repeat BCx -Switched to nafcillin on 03/11 + probiotic (treatment day 6) MSSA bacteremia likely 2/2 to LLE abscess with osteomyelitis and potential septic joint? with severe sepsis -Unlikely permacath as culture neg, echocardiogram (please see above) did not show vegetations -f/u repeat BCx, NGTD -NotePatient had LUE PICC placed in ER prior to being admitted while bacteremic. Spoke with Dr. Krishnamurthy who recommended monitoring for the next 24h and if she continued to have more +BCx or febrile, will have to replace permacath. -Will speak with cardiology about MARINO. -C/w treatment above with nafcillin C. difficile infection, recurrent -Hx of c. diff in past -Started on Po vancomycin 03/10/21, day 4 -C/w probiotics, closely monitoring lytes SOB 2/2 to ground-glass attenuation in both lungs poss 2/2 pulmonary edema or air trapping in the setting of viral airways disease -S/p 3 L removed with HD on 03/09/21, currently on 2 L NC and attempting to wean down -Less likely to be CAP vs. HCAP (recent hospitalization from 01/25/21-02/19/21), currently on nafcillin -Resp panel neg -Had some pulmonary edema on CT above -BNP 29K, incr from last in system recorded as 23K (chronically elevated; however) -Supportive care, volume management via HD Uncontrolled IDDM Type I -last HbA1c 12/2020 10.3, states to be compliant with meds but is known to specialists to not be -Consider adding back home levemir 5 U SC HS if eats well over next 24 hours. -C/w AC/HS ISS, CC diet, FS AC/HS, hypoglycemic protocol Transaminitis / hyperbilirubinemia likely 2/2 to venous outflow obstruction -Worked up on prior admission -MEEK, ANCA, and anti-mitochondrial ab had resulted negative. Pt ELIZABETH level elevated at 104. DDx for this include sarcoidosis -Hepatitis panel was negative in 2019; repeat negative -Liver pathology from [facility] 02/08/21: Benign liver parenchyma with dilated sinusoids, with perivenular/perisinusoidal fibrosis, suggestive of venous outflow obstruction. The iron stain shows increased iron, mostly in Kupfer ce lls, consistent with moderate siderosis. -Continue to monitor CMP -No GI coverage, she certainly needs GI follow up for this predominantly conjugated hyperbilirubinemia HTN, resolved urgency -BP has been normotensive and over the past several days lower than her normal -Today systolics 150-160's -C/w all home meds as hemodynamics allow. This AM meds were held as she was normotensive. Elevated BNP likely 2/2 to renal disease -no documented diastolic dysfunction on echo above -Chronically elevated -c/w HD Peripheral neuropathy, severe -not on any home meds ESRD on HD MWF -Nephrology following Pulm HTN (PASP 50s) -C/w home meds Chronic Thrombocytosis -CBC daily Anemia likely 2/2 to ESRD - Hg at baseline -CBC daily Hyponatremia likely 2/2 ESRD and hyperglycemia combined - c/w Dialysis as scheduled Anxiety - c/w Hydroxyzine DVT px -Heparin DISPOSITION: Admitted as acute inpatient. Nephrology, Podiatry consulted. ID consulted. Plan is home when medically improved. VS,Fishbone, I+O VS, Fishbone, I+O Laboratory Tests 03/13/21 05:34 Vital Signs Date Time Temp Pulse Resp B/P (MAP) Pulse Ox O2 Delivery O2 Flow Rate FiO2 03/13/21 17:00 97.8 88 16 142/86 (104) 97 Nasal Cannula 2.0 03/11/21 11:40 95 I&O- Last 24 Hours up to 6 AM 03/13/21 06:00 Intake Total 1210 ml Balance 1210 ml KRISTI PANDA MD March 13, 2021 17:18
[2021-03-13] MEDS: LOSARTAN 50MG TABLET PO SCH (21:32)
[2021-03-13] MEDS ORDERED: fentaNYL 100 MCG/2 ML INJECTION (J3010) IV ONE (22:30)
[2021-03-13] MEDS: PERCOCET 5MG/325MG TAB PO PRN (23:24)
[2021-03-14] VITALS (7 sets, daily range): BP systolic 107–219; BP diastolic 57–115
[2021-03-14] MEDS: NAFCILLIN SOD 2 GM in D5W MINI-BAG PLUS 50 ML IV SCH ×7 (02:00→22:22)
[2021-03-14] MEDS: VANCOMYCIN ORAL SOL 250MG/5ML ORAL SYRINGE PO SCH ×4 (05:46→19:42)
[2021-03-14] MEDS: SLF 3 ML SYR IV SCH ×3 (05:55→22:00)
[2021-03-14 06:17] LABS: HEMATOCRIT 29.8 % (36.0-47.0); HEMOGLOBIN 9.7 g/dl (12.0-15.5); MEAN CORPUSCULAR HEMOGLOBIN 29.8 pg (27.0-33.0); MEAN CORPUSCULAR HGB CONC 32.6 g/dl (32.0-36.5); MEAN CORPUSCULAR VOLUME 91.4 fl (80.0-96.0); PLATELET COUNT, AUTOMATED 732 10^3/uL (150-450); RED BLOOD COUNT 3.26 10^6/uL (4.00-5.40); WHITE BLOOD COUNT 10.7 10^3/uL (4.0-10.0)
[2021-03-14 06:35] LABS: ALBUMIN 1.8 GM/DL (3.2-5.2); BILIRUBIN,TOTAL 6.1 MG/DL (0.2-1.0); CALCIUM LEVEL 8.6 MG/DL (8.5-10.1); CREATININE FOR GFR 4.79 MG/DL (0.55-1.30); GLOMERULAR FILTRATION RATE 13.5 (>60); POTASSIUM SERUM 4.1 MEQ/L (3.5-5.1); TOTAL PROTEIN 7.5 GM/DL (6.4-8.2)
[2021-03-14] MEDS: HumaLOG INSULIN (NovoLOG) PER UNIT SC SCH ×4 (07:30→21:00)
[2021-03-14] MEDS: LACTOBACILLUS ACIDOPHILUS CAP (BACID) PO SCH ×2 (08:00→17:41)
[2021-03-14] MEDS: (RENVELA) SEVELAMER **CARBONate** 800 MG TAB PO SCH ×3 (08:00→17:41)
[2021-03-14] MEDS: cloNIDine 0.1MG TABLET PO SCH (08:50)
[2021-03-14] MEDS: ISOSORBIDE MON. (IMDUR) 30 MG XR TAB PO SCH (08:51)
[2021-03-14] MEDS: CALCITRIOL 0.25 MCG CAP (S0169) PO SCH (08:51)
[2021-03-14] MEDS: ASPIRIN 81MG ENTERIC TABLET PO SCH (08:51)
[2021-03-14] MEDS: HEPARIN SOD (PORCINE) 5000UNITS/ML 1ML VIAL/SYRINGE SC SCH ×2 (08:52→21:00)
[2021-03-14] MEDS: CARVedilol 12.5 MG TAB PO SCH (08:52)
[2021-03-14] MEDS: minoxidiL 2.5 MG TAB PO SCH ×2 (08:52→21:13)
--- NOTE | 2021-03-14 11:49 | IPNPDOC ---
Text Note Date of Service The patient was seen on 03/14/21. NOTE SUBJECTIVE: -Afebrile overnight -on 2L NC -NPO for MARINO with Dr. Jerez later today OBJECTIVE: VS: Please see below CONSTITUTIONAL: NAD, AO x 3 EYES: PERRLA, EOM intact HENT, MOUTH: Normocephalic, atraumatic, moist mucous membranes, NC in place on 2L NECK: SUPPLE, no JVD, no lymphadenopathy, no carotid bruit CV: murmur, NSR, S1S2 normal, no rubs/gallops CHEST: Right upper chest permacath RESPIRATORY: Clear to auscultation bilaterally, no rales/rhonchi/wheezes GI: Normoactive bowel sounds in all 4 quadrants, soft, nontender, nondistended, no rebound or guarding, no organomegaly MUSCULOSKELETAL: LUE PICC line (placed 03/08/21). Normal ROM. No cyanosis, clubbing, swelling, joint deformity, extremity edema INTEGUMENTARY: chronic LE skin changes. Left foot covered in bandages, no noted leakage. no rashes, no lesions, no erythema NEUROLOGIC: Decreased sensation of b/l feet-chronic. No motor deficits. Cranial Nerves II-XII are intact, no focal deficits PSYCHIATRIC: Mood and affect are normal LABORATORY DATA: WBC 10.7 Hgb 9.7 platelets 732 na 1434 K 4.1 Cr 4.79 MICRO: BCx x 2 sets from 03/13/21 : NGTD BCx x 2 sets from 03/12/21 : NGTD BCx x 2 sets from 03/11/21 : NGTD BCx x 2 sets from 03/10/21 : MSSA, sensitivities in chart BCx x 2 sets from 03/09/21 : MSSA, sensitivities in chart BCx x 2 sets from 03/08/21 : MSSA, sensitivities in chart BCx x 2 sets ( one peripherally- set #1, one from permacath-set #2) from 03/09/21: Set #1: Staph aureus , Set #2: NG to date Left foot wound cx: Staph aureus, MSSA IMAGING: Echocardiogram 03/09/21: EF 60-65% 1. Normal global left ventricular systolic function. Assessment of the left ventricular diastolic function appeared to be normal. 2. Mildly enlarged left atrium with mild mitral regurgitation. 3. Wzdl-kh-jbvysooo tricuspid regurgitation with moderately severe pulmonary hypertension. The right atrium also appeared to be mildly enlarged. 4. Trace pericardial effusion, no evidence of cardiac tamponade. 5. There are some features of elevated central venous pressure; the inferior vena cava is mildly enlarged. 6. No vegetations detected in this transthoracic echocardiogram. To consider a transesophageal echocardiogram if there is any concern CT abd/pelvis w/out contrast 03/09/21: Improved lung bases as described above, otherwise, no significant change from the prior exam with findings as described above. CTA of left foot 03/08/21: FINDINGS: Bones/joints: There is a enhancing joint effusion in the 2nd toe MTP joint. There is erosion of the medial 2nd metatarsal head and base of the proximal phalanx. Mild degenerative changes in the midfoot. 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 Benign-appearing periosteal reaction along the 4th metatarsal. Ankle mortise is unremarkable. No acute fracture or malalignment. Soft tissues: Generalized soft tissue swelling in the foot. There is large area of soft tissue ulceration and edema in the plantar surface of the foot at the 1st-2nd toe interspace. Peripherally enhancing fluid is present in the area of ulceration extending to the 2nd toe MTP joint measuring approximately 2.4 x 0.8 x 1.0 cm. Some soft tissue enhancement also extends along the proximal phalanx of the 2nd toe. Second smaller pocket of fluid in the dorsal 2nd toe soft tissues measuring 8 mm. IMPRESSION: Large ulceration in the plantar foot soft tissues with associated subcutaneous abscess. Septic joint with changes of osteomyelitis in the 2nd MTP joint. CT angio of chest 03/08/21: 1. Worsening ground-glass attenuation in both lungs may be due to pulmonary edema or air trapping in the setting of viral airways disease. 2. Cardiomegaly. 3. No pulmonary embolism. CXR: Improved lung menjivar otherwise no significant change. ASSESSMENT: 35-year-old female with past medical history of end-stage renal disease on hemodialysis Thursday/Thursday/Thursday, insulin-dependent diabetes mellitus type 1, peripheral neuropathy, pulmonary hypertension, hypertension, history of C. difficile admitted for sepsis with MSSA bacteremia and L foot abscess and osteomyelitis. PLAN: Abscess, large ulceration in the left plantar foot soft tissues with associated ? septic joint, osteomyelitis in the 2nd MTP joint, sepsis with bacteremia -POD 3 for left foot 2nd metatarsal head excision and I&D by Dr. Mondragon, POD 1 more debridement -CT as above -MSSA in all blood culture sets and wound culture until 03/11, negative since then -F/u all repeat BCx -Switched to nafcillin on 03/11 + probiotic (treatment day 7) MSSA bacteremia likely 2/2 to LLE abscess with osteomyelitis and potential septic joint? with severe sepsis -Unlikely permacath as culture neg, echocardiogram (please see above) did not show vegetations -f/u repeat BCx, NGTD -NotePatient had LUE PICC placed in ER prior to being admitted while bacteremic. Spoke with Dr. Krishnamurthy who recommended monitoring and if she continued to have more +BCx or febrile, will have to replace permacath. -MARINO this PM with Dr. Jerez -C/w treatment above with nafcillin C. difficile infection, recurrent -Hx of c. diff in past -Started on Po vancomycin 03/10/21, day 5 -C/w probiotics, closely monitoring lytes SOB 2/2 to ground-glass attenuation in both lungs poss 2/2 pulmonary edema or air trapping in the setting of viral airways disease -S/p 3 L removed with HD on 03/09/21, currently on 2 L NC and attempting to wean down -Less likely to be CAP vs. HCAP (recent hospitalization from 01/25/21-02/19/21), currently on nafcillin -Resp panel neg -Had some pulmonary edema on CT above -BNP 29K, incr from last in system recorded as 23K (chronically elevated; however) -Supportive care, volume management via HD Uncontrolled IDDM Type I -last HbA1c 12/2020 10.3, states to be compliant with meds but is known to spec ialists to not be -Consider adding back home levemir 5 U SC HS if eats well over next 24 hours. -C/w AC/HS ISS, CC diet, FS AC/HS, hypoglycemic protocol Transaminitis / hyperbilirubinemia likely 2/2 to venous outflow obstruction -Worked up on prior admission -MEEK, ANCA, and anti-mitochondrial ab had resulted negative. Pt ELIZABETH level elevated at 104. DDx for this include sarcoidosis -Hepatitis panel was negative in 2019; repeat negative -Liver pathology from [facility] 4/9/21: Benign liver parenchyma with dilated sinusoids, with perivenular/perisinusoidal fibrosis, suggestive of venous outflow obstruction. The iron stain shows increased iron, mostly in Kupfer cells, consistent with moderate siderosis. -Continue to monitor CMP -No GI coverage, she certainly needs GI follow up for this predominantly conjugated hyperbilirubinemia HTN, resolved urgency -BP has been normotensive and over the past several days lower than her normal -Today systolics 150-160's -C/w all home meds as hemodynamics allow. This AM meds were held as she was normotensive. Elevated BNP likely 2/2 to renal disease -no documented diastolic dysfunction on echo above -Chronically elevated -c/w HD Peripheral neuropathy, severe -not on any home meds ESRD on HD MWF -Nephrology following Pulm HTN (PASP 50s) -C/w home meds Chronic Thrombocytosis -CBC daily Anemia likely 2/2 to ESRD - Hg at baseline -CBC daily Hyponatremia likely 2/2 ESRD and hyperglycemia combined - c/w Dialysis as scheduled Anxiety - c/w Hydroxyzine DVT px -Heparin DISPOSITION: Admitted as acute inpatient. Nephrology, Podiatry consulted. ID consulted. Plan is home when medically improved. VS,Fishbone, I+O VS, Fishbone, I+O Laboratory Tests 03/14/21 05:53 Vital Signs Date Time Temp Pulse Resp B/P (MAP) Pulse Ox O2 Delivery O2 Flow Rate FiO2 03/14/21 04:00 2.0 03/14/21 04:00 97.4 91 16 135/68 (90) 100 High Flow Cannula 03/11/21 11:40 95 I&O- Last 24 Hours up to 6 AM 03/14/21 06:00 Intake Total 1450 ml Output Total 2505 ml Balance -1055 ml KRISTI PANDA MD March 14, 2021 08:37
[2021-03-14] MEDS ORDERED: HumaLOG INSULIN (NovoLOG) PER UNIT SC ONE ×2 (12:05→22:45)
[2021-03-14] MEDS: METOPROLOL TART 50 MG TAB PO SCH (17:05)
[2021-03-14] MEDS ORDERED: propofoL 200 MG/20 ML VIAL As Ordered ONE (17:42)
[2021-03-14] MEDS ORDERED: fentaNYL 100 MCG/2 ML INJECTION (J3010) As Ordered ONE (17:43)
[2021-03-14] MEDS ORDERED: MIDAZOLAM INJ 2MG/2ML VIAL (J2250 PER 1MG) As Ordered ONE (17:43)
[2021-03-14] MEDS ORDERED: CETACAINE SPRAY 5GM As Ordered ONE (18:10)
--- NOTE | 2021-03-14 19:04 | IPNPDOC ---
Date Seen The patient was seen on 03/14/21. Progress Note INFECTIOUS DISEASE PROGRESS NOTE SUBJECTIVE: Patient seen and examined at the bedside this afternoon. She states she is feeling well. She did have one episode of vomiting this morning likely due to the fact that she ordered slovak food last night. No other fevers, no chills, no myalgias. She will go for MARINO today. OBJECTIVE PHYSICAL EXAMINATION: VITAL SIGNS: see below GENERAL: alert and oriented, conversant in full sentences HEENT: PERRL, EOMI, Oral mucous membranes are moist without lesions. Sclerae are icteric NECK: The patient has no noted JVD. No adenopathy is appreciated. No thyromegaly CHEST/LUNGS: Lungs are clear bilaterally without rhonchi, rales, or wheezes. There is no tenderness to the chest wall. CHEST WALL: tunneled dialysis catheter present in R chest wall, nontender, no signs of erythema HEART: Regular rate and rhythm. 3/6 BARRON in RUSB. Distal pulses are 2+. No car otid bruits appreciated. ABDOMEN: Soft, nontender, somewhat distended. Bowel sounds are positive liver enlarged. No masses are appreciated. There are no peritoneal signs. There is no [place] sign. EXTREMITIES: No peripheral edema. There is no focal long bone tenderness or deformity. Left foot wrapped Kerlix no tenderness , dressing not changed today SKIN: The patients skin is very dry, without rashes or lesions, scratch allen all over PSYCHIATRIC: AAO x 3, normal mood/affect NEUROLOGIC: No obvious focal deficits LABORATORY DATA: Please see below. TRANSTHORACIC ECHOCARDIOGRAM: IMPRESSION: 1. Normal global left ventricular systolic function. Assessment of the left ventricular diastolic function appeared to be normal. 2. Mildly enlarged left atrium with mild mitral regurgitation. 3. Zqvh-gg-xptzgnbh tricuspid regurgitation with moderately severe pulmonary hypertension. The right atrium also appeared to be mildly enlarged. 4. Trace pericardial effusion, no evidence of cardiac tamponade. 5. There are some features of elevated central venous pressure; the inferior vena cava is mildly enlarged. 6. No vegetations detected in this transthoracic echocardiogram. To consider a transesophageal echocardiogram if there is any concern. ASSESSMENT: This is a 35 YO F with T1DM, ESRD on HD MWF through [facility], HTN who presented with shortness of breath, fevers (Tmax 105)found to have MSSA bacteremia concerning for ongoing left foot osteomyelitis / abscess had drainage procedure , due to persistent bacteremia concern she has HD line infection and possibly endocarditis. PLAN: 1. Sepsis 2/2 MSSA bacteremia from left foot abscess concern for endocarditis or HD line infection -Continue IV Nafcillin 2 gm Q4 hours for now -Pending result of MARINO to rule out endocarditis , if positive HD catheter needs to be removed -Repeat blood cultures negative thus far 2. Left foot osteomyelitis with abscess: s/p I&D and metatarsal head amputation 03/09/21 -Continue wound care per Podiatry dr Mondragon with wet to dry dressings 3. C difficile infection recurrent : first positive c diff PCR 12/01/20 -Continue oral Vancomycin for now she seem to have improved, denied any diarrhea today. Nursing reports no bowel movements today. -Continue probiotic BID -Would benefit from Zinplava IV to decrease risk of recurrence as outpatient as this is her second occurence in past 4 months and will need prolonged ATBX therapy 4. Jaundice Bili 6.4 had liver biopsy , work up was negative so far , will discuss with GI DISPO: dispo pending MARINO results VS, I&O, [facility] Signs/I&O Vital Signs Date Time Temp Pulse Resp B/P (MAP) Pulse Ox O2 Delivery O2 Flow Rate FiO2 03/14/21 18:52 77 17 159/71 (100) 94 Room Air 03/14/21 18:37 97.3 03/14/21 16:00 2.0 03/11/21 11:40 95 I&O- Last 24 Hours up to 6 AM 03/14/21 06:00 Intake Total 1450 ml Output Total 2505 ml Balance -1055 ml Laboratory Data 24H LABS Laboratory Tests 2 03/13/21 21:16: Bedside Glucose (Misc Panel) 172H 03/14/21 05:53: Nucleated Red Blood Cells % (auto) 0.0, Anion Gap 8, Glomerular Filtration Rate 13.5L, Calcium Level 8.6, Total Bilirubin 6.1H, Aspartate Amino Transf (AST/SGOT) 28, Alanine Aminotransferase (ALT/SGPT) 23, Alkaline Phosphatase 583H, Total Protein 7.5, Albumin 1.8L, Albumin/Globulin Ratio 0.3L 03/14/21 07:16: Bedside Glucose (Misc Panel) 262H 03/14/21 11:44: Bedside Glucose (Misc Panel) 311H 03/14/21 17:00: Bedside Glucose (Misc Panel) 192H CBC/BMP Laboratory Tests 03/14/21 05:53 Microbiology Microbiology 03/14/21 Respiratory Virus Panel (PCR) (LINDA) - Final, Complete 03/13/21 Blood Culture - Preliminary, Resulted No growth after 24 hours . All specim... 03/12/21 Blood Culture - Preliminary, Resulted No Growth after 48 hours. All Specime... 03/11/21 Blood Culture - Preliminary, Resulted No Growth after 72 hours. All specime... 03/10/21 Wound Culture - Final, Complete Staphylococcus Aureus 03/10/21 Anaerobic Culture - Final, Complete 03/10/21 Gram Stain - Final, Complete 03/10/21 Wound Culture - Final, Complete Staphylococcus Aureus 03/09/21 Blood Culture - Final, Complete Staphylococcus Aureus 03/09/21 Blood Culture - Final, Complete NO GROWTH AFTER 5 DAYS 03/08/21 Blood Culture - Final, Complete Staphylococcus Aureus 03/08/21 Blood Culture - Final, Complete Staphylococcus Aureus 03/08/21 Respiratory Virus Panel (PCR) (LINDA) - Final, Complete GME ATTESTATION GME ATTESTATION My faculty preceptor for this patient encounter was physically present during the encounter and was fully available. All aspects of the patient interview, examination, medical decision making process, and medical care plan development were reviewed and approved by the faculty preceptor. The faculty preceptor is aware and concurs with the plan as stated in the body of this note and will attest to such by his/her cosignature. DREW WASSERMAN MD March 14, 2021 19:04 Carol Krishnamurthy MD March 14, 2021 22:12
--- NOTE | 2021-03-14 20:26 | IPN ---
NEPHROLOGY PROGRESS NOTE DATE: 03/14/2021 SUBJECTIVE: Ms. Mireles is seen this morning on her bedside. Nursing staff reports that she ate Norwegian food last night which she ordered from outside, then she vomited this morning. Her blood pressure has been high. Patient denies any fever or chills. She is scheduled for a transesophageal echocardiogram later today. PHYSICAL EXAMINATION: Temperature 97.4 degrees Fahrenheit, heart rate 90 per minute, respiratory rate 16 per minute, blood pressure earlier was up to 219/115 mmHg and most recent one is 192/116, oxygen saturation 99% on 2 liters of oxygen. HEAD: Atraumatic. NECK: Supple and jugular venous distention (JVD) not abnormally elevated. She has a dialysis catheter is right internal jugular vein. HEART SOUNDS: Regular with a systolic murmur grade 2/6, unchanged. LUNGS: Clear to auscultation. ABDOMEN: Soft and nontender. Bowel sounds are normal. EXTREMITIES: Without any cyanosis or clubbing. Left foot is in a dressing. NEUROLOGIC: She is at her baseline mentation. LABORATORY DATA: Today's labs show WBC 10.7, hemoglobin 9.7, hematocrit 29.8, platelets up to 732. Sodium 134, potassium 4.1, BUN 24, creatinine 4.79, glucose 288, calcium 8.6. Total bilirubin is 6.1. Her most recent blood cultures from March 12, 2021 and March 13, 2021 are negative so far. PROBLEMS: 1. Staphylococcus bacteremia. Patient is currently afebrile and remains on nafcillin. She is scheduled for transesophageal echocardiogram later today to rule out any possibility for endocarditis. 2. Infected left foot wound. Patient did have debridement done and she remains on antibiotics. She had debridement done twice. 3. End-stage renal disease. Patient was dialyzed yesterday and next dialysis will be scheduled for tomorrow. 4. Hypertension. Blood pressure was very high, most likely related to high salt food, as she ate Norwegian food last night. I have advised her to avoid such food from outside. Blood pressure is likely to improve over the next several hours. 5. Anemia. Her anemia has been stable and we will continue to monitor closely.
[2021-03-14] MEDS: LOSARTAN 50MG TABLET PO SCH (21:13)
[2021-03-15] MEDS: VANCOMYCIN ORAL SOL 250MG/5ML ORAL SYRINGE PO SCH ×4 (00:14→18:33)
[2021-03-15] MEDS: NAFCILLIN SOD 2 GM in D5W MINI-BAG PLUS 50 ML IV SCH ×3 (02:32→10:54)
[2021-03-15 04:30] VITALS: BP 129/71
[2021-03-15] MEDS: SLF 3 ML SYR IV SCH ×3 (05:51→20:23)
[2021-03-15 06:10] LABS: HEMATOCRIT 28.1 % (36.0-47.0); MEAN CORPUSCULAR HEMOGLOBIN 29.4 pg (27.0-33.0); MEAN CORPUSCULAR VOLUME 91.8 fl (80.0-96.0); PLATELET COUNT, AUTOMATED 685 10^3/uL (150-450); RED BLOOD COUNT 3.06 10^6/uL (4.00-5.40); WHITE BLOOD COUNT 10.1 10^3/uL (4.0-10.0)
[2021-03-15 06:41] LABS: ALBUMIN 1.7 GM/DL (3.2-5.2); BILIRUBIN,TOTAL 6.9 MG/DL (0.2-1.0); CALCIUM LEVEL 8.6 MG/DL (8.5-10.1); CREATININE FOR GFR 5.89 MG/DL (0.55-1.30); GLOMERULAR FILTRATION RATE 10.6 (>60); POTASSIUM SERUM 4.3 MEQ/L (3.5-5.1); TOTAL PROTEIN 7.4 GM/DL (6.4-8.2)
[2021-03-15] MEDS: ASPIRIN 81MG ENTERIC TABLET PO SCH (06:54)
[2021-03-15] MEDS: ISOSORBIDE MON. (IMDUR) 30 MG XR TAB PO SCH (06:54)
[2021-03-15 08:00] VITALS: BP 210/104
[2021-03-15] MEDS: HEPARIN SOD (PORCINE) 5000UNITS/ML 1ML VIAL/SYRINGE SC SCH ×3 (08:13→20:27)
[2021-03-15] MEDS: cloNIDine 0.1MG TABLET PO SCH (08:14)
[2021-03-15] MEDS: (RENVELA) SEVELAMER **CARBONate** 800 MG TAB PO SCH ×3 (08:16→18:34)
[2021-03-15] MEDS: LACTOBACILLUS ACIDOPHILUS CAP (BACID) PO SCH ×2 (08:16→18:34)
[2021-03-15] MEDS: minoxidiL 2.5 MG TAB PO SCH ×2 (08:16→20:21)
[2021-03-15] MEDS: CALCITRIOL 0.25 MCG CAP (S0169) PO SCH (08:16)
[2021-03-15] MEDS: METOPROLOL TART 50 MG TAB PO SCH ×2 (08:17→20:22)
[2021-03-15] MEDS: HumaLOG INSULIN (NovoLOG) PER UNIT SC SCH ×4 (08:38→20:22)
--- NOTE | 2021-03-15 09:01 | T-ECHO ---
TRANSESOPHAGEAL ECHO DATE: 03/14/2021 REFERRING PHYSICIAN: Priscilla Aparicio M.D. INDICATIONS: Staphylococcus aureus (methicillin-resistant) bacteremia. PREPROCEDURE DIAGNOSIS: Staphylococcus aureus (methicillin-resistant) bacteremia. POSTPROCEDURE DIAGNOSIS: Staphylococcus aureus (methicillin-resistant) bacteremia. PROCEDURE PERFORMED BY: Evgeny Jerez M.D. BOND MANAGER: None. PROCEDURE PERFORMED: Transesophageal echocardiogram. PRINCIPAL CLINICAL FINDINGS: No vegetations. Moderate tricuspid regurgitation. Small pericardial effusion without diastolic chamber collapse seen over the right atrium and right ventricle. INTRAVENOUS (IV) SEDATION: Monitored anesthesia care provided by the [employer]CHNICIAN. COMPLICATIONS: None. DESCRIPTION OF PROCEDURE: After receiving sedation, the patient was esophageal intubated successfully after three tries by Dr. Jerez. Rhythm was sinus. The left and right ventricles appeared normal in size and systolic function and without regional wall motion abnormalities. A small pericardial effusion was seen over the right atrium and right ventricle without diastolic chamber collapse. The atrial septum was intact anatomically and by color flow Doppler. No mass or thrombi was seen within the atria or their appendages. Pulmonary venous inflow in the left upper pulmonary vein by pulse wave Doppler appeared normal. The aortic valve was 3-cuspid and appeared structurally normal. Very mild aortic regurgitation was present. No vegetations were seen on any of the cardiac valves or any of the cardiac structures. Mitral leaflets appeared structurally normal. Very mild mitral regurgitation was present and within physiologic limits. Pulmonic valve was structurally normal. No pulmonic regurgitation. Tricuspid leaflets appeared structurally normal. Moderate tricuspid regurgitation was present. Distal aortic arch and descending thoracic aorta were normal. CONCLUSIONS: 1. No vegetations. 2. Normal left and right ventricle size and systolic function. 3. Structurally normal appearing tricuspid leaflets. Moderate tricuspid regurgitation. 4. Structurally normal appearing aortic valve. Mild aortic regurgitation consistent with normal variant for mild aortic regurgitation. 5. Small pericardial effusion seen over the right atrium and right ventricle without diastolic chamber collapse.
--- NOTE | 2021-03-15 09:20 | IPNPDOC ---
Text Note Date of Service The patient was seen on 03/15/21. NOTE SUBJECTIVE: -Afebrile overnight -on 2L NC OBJECTIVE: VS: Please see below CONSTITUTIONAL: NAD, AO x 3 EYES: PERRLA, EOM intact HENT, MOUTH: Normocephalic, atraumatic, moist mucous membranes, NC in place on 2L NECK: SUPPLE, no JVD, no lymphadenopathy, no carotid bruit CV: murmur, NSR, S1S2 normal, no rubs/gallops CHEST: Right upper chest permacath RESPIRATORY: Clear to auscultation bilaterally, no rales/rhonchi/wheezes GI: Normoactive bowel sounds in all 4 quadrants, soft, nontender, nondistended, no rebound or guarding, no organomegaly MUSCULOSKELETAL: LUE PICC line (placed 03/08/21). Normal ROM. No cyanosis, clubbing, swelling, joint deformity, extremity edema INTEGUMENTARY: chronic LE skin changes. Left foot covered in bandages, no noted leakage. no rashes, no lesions, no erythema NEUROLOGIC: Decreased sensation of b/l feet-chronic. No motor deficits. Cranial Nerves II-XII are intact, no focal deficits PSYCHIATRIC: Mood and affect are normal LABORATORY DATA: WBC 10.1 Hgb 9 platelets 685 na 132 K 4.3 Cr 5.89 MICRO: BCx x 2 sets from 03/13/21 : NGTD BCx x 2 sets from 03/12/21 : NGTD BCx x 2 sets from 03/11/21 : NGTD BCx x 2 sets from 03/10/21 : MSSA, sensitivities in chart BCx x 2 sets from 03/09/21 : MSSA, sensitivities in chart BCx x 2 sets from 03/08/21 : MSSA, sensitivities in chart BCx x 2 sets ( one peripherally- set #1, one from permacath-set #2) from 03/09/21: Set #1: Staph aureus , Set #2: NG to date Left foot wound cx: Staph aureus, MSSA IMAGING: TTE 03/09/21: EF 60-65% 1. Normal global left ventricular systolic function. Assessment of the left ventricular diastolic function appeared to be normal. 2. Mildly enlarged left atrium with mild mitral regurgitation. 3. [id number] tricuspid regurgitation with moderately severe pulmonary hypertension. The right atrium also appeared to be mildly enlarged. 4. Trace pericardial effusion, no evidence of cardiac tamponade. 5. There are some features of elevated central venous pressure; the inferior vena cava is mildly enlarged. 6. No vegetations detected in this transthoracic echocardiogram. To consider a transesophageal echocardiogram if there is any concern CT abd/pelvis w/out contrast 03/09/21: Improved lung bases as described above, otherwise, no significant change from the prior exam with findings as described above. CTA of left foot 03/08/21: FINDINGS: Bones/joints: There is a enhancing joint effusion in the 2nd toe MTP joint. There is erosion of the medial 2nd metatarsal head and base of the proximal phalanx. Mild degenerative changes in the midfoot. 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 Benign-appearing periosteal reaction along the 4th metatarsal. Ankle mortise is unremarkable. No acute fracture or malalignment. Soft tissues: Generalized soft tissue swelling in the foot. There is large area of soft tissue ulceration and edema in the plantar surface of the foot at the 1st-2nd toe interspace. Peripherally enhancing fluid is present in the area of ulceration extending to the 2nd toe MTP joint measuring approximately 2.4 x 0.8 x 1.0 cm. Some soft tissue enhancement also extends along the proximal phalanx of the 2nd toe. Second smaller pocket of fluid in the dorsal 2nd toe soft tissues measuring 8 mm. IMPRESSION: Large ulceration in the plantar foot soft tissues with associated subcutaneous abscess. Septic joint with changes of osteomyelitis in the 2nd MTP joint. CT angio of chest 03/08/21: 1. Worsening ground-glass attenuation in both lungs may be due to pulmonary edema or air trapping in the setting of viral airways disease. 2. Cardiomegaly. 3. No pulmonary embolism. CXR: Improved lung menjivar otherwise no significant change. MARINO: per my discussion with Dr. Jerez: No vegetations Very mild AR with normal aortic valve Moderate TR Small pericardial effusion over RA and RV No diastolic chamber collapse ASSESSMENT: 35-year-old female with past medical history of end-stage renal disease on hemodialysis Thursday/Thursday/Thursday, insulin-dependent diabetes mellitus type 1, peripheral neuropathy, pulmonary hypertension, hypertension, history of C. difficile admitted for sepsis with MSSA bacteremia and L foot abscess and osteomyelitis. PLAN: Abscess, large ulceration in the left plantar foot soft tissues with associated ? septic joint, osteomyelitis in the 2nd MTP joint, sepsis with bacteremia -POD 4 for left foot 2nd metatarsal head excision and I&D by Dr. Mondragon, POD 2 more irrigation and antibiotic beads placement -CT as above -MSSA in all blood culture sets and wound culture until 03/11, negative since then -F/u all repeat BCx -Switched to nafcillin on 03/11 + probiotic (treatment day 8) MSSA bacteremia likely 2/2 to LLE abscess with osteomyelitis and potential septic joint? with severe sepsis -Unlikely permacath as culture neg, echocardiogram (please see above) did not show vegetations -f/u repeat BCx, NGTD -NotePatient had LUE PICC placed in ER prior to being admitted while bacter emic. Spoke with Dr. Krishnamurthy who recommended monitoring and if she continued to have more +BCx or febrile, will have to replace permacath. -MARINO showed no vegetations as noted above -C/w treatment above with nafcillin C. difficile infection, recurrent -Hx of c. diff in past -Started on Po vancomycin 03/10/21, day 6 -C/w probiotics, closely monitoring lytes SOB 2/2 to ground-glass attenuation in both lungs poss 2/2 pulmonary edema or air trapping in the setting of viral airways disease -S/p 3 L removed with HD on 03/09/21, currently on 2 L NC and attempting to wean down -Less likely to be CAP vs. HCAP (recent hospitalization from 01/25/21-02/19/21), currently on nafcillin -Resp panel neg -Had some pulmonary edema on CT above -BNP 29K, incr from last in system recorded as 23K (chronically elevated; however) -Supportive care, volume management via HD Uncontrolled IDDM Type I -last HbA1c 12/2020 10.3, states to be compliant with meds but is known to specialists to not be -Consider adding back home levemir 5 U SC HS if eats well over next 24 hours. -C/w AC/HS ISS, CC diet, FS AC/HS, hypoglycemic protocol Transaminitis / hyperbilirubinemia likely 2/2 to venous outflow obstruction -Worked up on prior admission -MEEK, ANCA, and anti-mitochondrial ab had resulted negative. Pt ELIZABETH level elevated at 104. DDx for this include sarcoidosis -Hepatitis panel was negative in 2019; repeat negative -Liver pathology from [facility] 02/08/21: Benign liver parenchyma with dilated sinusoids, with perivenular/perisinusoidal fibrosis, suggestive of venous outflow obstruction. The iron stain shows increased iron, mostly in Kupfer cells, consistent with moderate siderosis. -Continue to monitor CMP -No GI coverage, she certainly needs GI follow up for this predominantly conjugated hyperbilirubinemia HTN, resolved urgency -BP has been normotensive and over the past several days lower than her normal -C/w all meds as hemodynamics allow. Elevated BNP likely 2/2 to renal disease -no documented diastolic dysfunction on echo above -Chronically elevated -c/w HD Peripheral neuropathy, severe -not on any home meds ESRD on HD MWF -Nephrology following Pulm HTN (PASP 50s) -C/w home meds Chronic Thrombocytosis -CBC daily Anemia likely 2/2 to ESRD - Hg at baseline -CBC daily Hyponatremia likely 2/2 ESRD and hyperglycemia combined - c/w Dialysis as scheduled Anxiety - c/w Hydroxyzine DVT px -Heparin DISPOSITION: Admitted as acute inpatient. Nephrology, Podiatry consulted. ID consulted. Plan is home when medically improved. VS,Fishbone, I+O VS, Fishbone, I+O Laboratory Tests 03/15/21 05:58 Vital Signs Date Time Temp Pulse Resp B/P (MAP) Pulse Ox O2 Delivery O2 Flow Rate FiO2 03/15/21 06:54 130/61 03/15/21 04:30 98.2 81 18 97 Nasal Cannula 2.0 03/11/21 11:40 95 I&O- Last 24 Hours up to 6 AM 03/15/21 06:00 Intake Total 1230 ml Balance 1230 ml KRISTI PANDA MD March 15, 2021 07:46
--- NOTE | 2021-03-15 12:24 | IPN ---
NEPHROLOGY PROGRESS NOTE DATE: 03/15/2021 SUBJECTIVE: Ms. Mireles is seen this morning on her bedside. She is sitting in the bed and reports nosebleed from her right nostril. She denies any dyspnea, chest pain, nausea, vomiting, fever or chills. She underwent a transesophageal echocardiogram yesterday which did not show any vegetations. She remains on intravenous nafcillin for Staphylococcus aureus bacteremia, most likely related to her left foot osteomyelitis. PHYSICAL EXAMINATION: Temperature 97.8 degrees Fahrenheit, heart rate 92 per minute, respiratory rate 18 per minute, blood pressure earlier was 130/60 mmHg; however, most recent blood pressure is recorded as 210/106 mmHg. Oxygen saturation 97% on 2 liters oxygen. HEAD: Atraumatic. NECK: Supple and without jugular venous distention (JVD) or thyroid enlargement. There is a dialysis catheter present in right upper chest. HEART SOUNDS: Regular with systolic murmur grade 2/6. LUNGS: Clear to auscultation. ABDOMEN: Soft and nontender. Bowel sounds are normal. EXTREMITIES: Without any cyanosis or clubbing. NEUROLOGIC: She is at her baseline mentation. LABORATORY DATA: Her blood cultures from March 12, 2021 and March 13, 2021 are all negative so far and, in fact, one blood culture from March 11, 2021 also negative. Her WBC is 10.1, hemoglobin 9.0, hematocrit 28.1, platelets 685. Sodium 132, potassium 4.3, CO2 26, BUN 31, creatinine 5.89, glucose 257, calcium 8.6. Bilirubin is up to 6.9. PROBLEMS: 1. Staphylococcus aureus bacteremia with left foot osteomyelitis. Patient is afebrile and remains on intravenous nafcillin. Transesophageal echocardiogram negative for vegetations. Repeat blood cultures are negative so far. 2. End-stage renal disease. Patient is due for dialysis today and we will dialyze her this afternoon. 3. Hypertension. Blood pressure was much better earlier this morning; however, most recent one is quite high. We will remove about 3 liters of fluid during dialysis and I recommend to continue with current antihypertensive medications. 4. Anemia. Her anemia is related to end-stage renal disease and bacteremia with osteomyelitis of left foot. At present, we will continue with Aranesp and monitor her CBC.
--- NOTE | 2021-03-15 16:54 | IPNPDOC ---
Date Seen The patient was seen on 03/15/21. Progress Note INFECTIOUS DISEASE PROGRESS NOTE SUBJECTIVE: Patient seen and examined at the bedside this morning. She is very pleasant and has no complaints. She went for her MARINO yesterday afternoon. Her foot wound is healing well. We discussed steps moving forward regarding remaining compliant with medications and dialysis and she is quite motivated to remain compliant. Nursing reports elevated BP in the 200s systolic this morning, that improved with BP meds. She denies any nausea/vomiting/diarrhea/abdominal pain at this time. She does report her stomach feels quite distended. OBJECTIVE PHYSICAL EXAMINATION: VITAL SIGNS: see below GENERAL: alert and oriented, conversant in full sentences, very pleasant HEENT: PERRL, EOMI, Oral mucous membranes are moist without lesions. Sclerae are icteric NECK: The patient has no noted JVD. No adenopathy is appreciated. No thyromegaly CHEST/LUNGS: Lungs are clear bilaterally without rhonchi, rales, or wheezes. There is no tenderness to the chest wall. CHEST WALL: tunneled dialysis catheter present in R chest wall, nontender, no signs of erythema HEART: Regular rate and rhythm. 3/6 BARRON in RUSB. Distal pulses are 2+. No carotid bruits appreciated. ABDOMEN: Soft, nontender, somewhat distended. Unable to palpate liver edge denoting possible enlargement. Bowel sounds are positive. No masses are appreciated. There are no peritoneal signs. There is no Satsuma sign. EXTREMITIES: No peripheral edema. There is no focal long bone tenderness or deformity. Left foot wound examined: incision on dorsum of foot about 2cm in length with sutures in place. Incision on plantar surface about 3cm, open, no surrounding erythema, scant blood on bandage SKIN: The patients skin is very dry, without rashes or lesions, scratch allen all over PSYCHIATRIC: AAO x 3, normal mood/affect NEUROLOGIC: No obvious focal deficits LABORATORY DATA: Please see below. TRANSESOPHAGEAL ECHOCARDIOGRAM 03/14: CONCLUSIONS: 1. No vegetations. 2. Normal left and right ventricle size and systolic function. 3. Structurally normal appearing tricuspid leaflets. Moderate tricuspid regurgitation. 4. Structurally normal appearing aortic valve. Mild aortic regurgitation consistent with normal variant for mild aortic regurgitation. 5. Small pericardial effusion seen over the right atrium and right ventricle without diastolic chamber collapse. ASSESSMENT: This is a 35 YO F with T1DM, ESRD on HD MWF through permacath, HTN who presented with shortness of breath, fevers (Tmax 105) found to have MSSA bacteremia concerning for ongoing left foot osteomyelitis / abscess had drainage procedure , due to persistent bacteremia concern she has HD line infection and possibly endocarditis. PLAN: 1. Sepsis 2/2 MSSA bacteremia from left foot abscess concern for endocarditis or HD line infection -IV Nafcillin changed to Ancef 1g Q24H for now -MARINO negative for endocarditis -When patient is cleared for discharge, she can get Cefazolin with HD, 2g - 2g - 3g corresponding with her HD days for a total of 6 weeks from her last negative culture (Stop date 04/22) 2. Left foot osteomyelitis with abscess: s/p I&D and metatarsal head amputation 03/09/21 -Continue wound care per Podiatry dr Mondragon with wet to dry dressings 3. C difficile infection recurrent : first positive c diff PCR 12/01/20 -Continue oral Vancomycin (day 6 out of 10) for now but she seems to have imp roved, denied any diarrhea today. Nursing reports no bowel movements today. -Continue probiotic BID -Would benefit from Zinplava IV to decrease risk of recurrence as outpatient as this is her second occurence in past 4 months and will need prolonged ATBX therapy 4. Hyperbilirubinemia and Jaundice: -Patient's bili up to 6.9 today -Case discussed with GI (Rick) who reviewed labs from previous hospitalization (transaminitis, liver bx showing congestive hepatopathy). Likely due to fluid status but does appear to be obstructive pattern. -ddx: cholestasis, stones, portal vein thrombosis -[facility] Vital Signs Date Time Temp Pulse Resp B/P (MAP) Pulse Ox O2 Delivery O2 Flow Rate FiO2 03/15/21 08:18 86 210/106 03/15/21 08:00 97.8 18 97 Nasal Cannula 2.0 03/11/21 11:40 95 I&O- Last 24 Hours up to 6 AM 03/15/21 06:00 Intake Total 1230 ml Balance 1230 ml Laboratory Data 24H LABS Laboratory Tests 2 03/14/21 17:00: Bedside Glucose (Misc Panel) 192H 03/14/21 19:42: Bedside Glucose (Misc Panel) 188H 03/14/21 22:20: Bedside Glucose (Misc Panel) 189H 03/15/21 05:58: Nucleated Red Blood Cells % (auto) 0.0, Anion Gap 8, Glomerular Filtration Rate 10.6L, Calcium Level 8.6, Total Bilirubin 6.9H, Aspartate Amino Transf (AST/SGOT) 23, Alanine Aminotransferase (ALT/SGPT) 20, Alkaline Phosphatase 497H, Total Protein 7.4, Albumin 1.7L, Albumin/Globulin Ratio 0.3L 03/15/21 12:12: Bedside Glucose (Misc Panel) 209H CBC/BMP Laboratory Tests 03/15/21 05:58 Microbiology Microbiology 03/14/21 Respiratory Virus Panel (PCR) (LINDA) - Final, Complete 03/13/21 Blood Culture - Preliminary, Resulted No Growth after 48 hours. All Specime... 03/12/21 Blood Culture - Preliminary, Resulted No Growth after 72 hours. All specime... 03/11/21 Blood Culture - Preliminary, Resulted No Growth after 72 hours. All specime... 03/10/21 Wound Culture - Final, Complete Staphylococcus Aureus 03/10/21 Anaerobic Culture - Final, Complete 03/10/21 Gram Stain - Final, Complete 03/10/21 Wound Culture - Final, Complete Staphylococcus Aureus 03/09/21 Blood Culture - Final, Complete Staphylococcus Aureus 03/09/21 Blood Culture - Final, Complete NO GROWTH AFTER 5 DAYS 03/08/21 Blood Culture - Final, Complete Staphylococcus Aureus 03/08/21 Blood Culture - Final, Complete Staphylococcus Aureus 03/08/21 Respiratory Virus Panel (PCR) (LINDA) - Final, Complete GME ATTESTATION GME ATTESTATION My faculty preceptor for this patient encounter was physically present during the encounter and was fully available. All aspects of the patient interview, examination, medical decision making process, and medical care plan development were reviewed and approved by the faculty preceptor. The faculty preceptor is aware and concurs with the plan as stated in the body of this note and will attest to such by his/her cosignature. DREW WASSERMAN MD March 15, 2021 16:54
[2021-03-15 17:30] VITALS: BP 190/102
[2021-03-15 19:28] VITALS: BP 172/92
[2021-03-15] MEDS: ceFAZolin SOD 1 GM in D5W MINI-BAG PLUS 50 ML IV SCH (20:21)
[2021-03-15] MEDS: LOSARTAN 50MG TABLET PO SCH (20:22)
[2021-03-15] MEDS: SODIUM CHLORIDE 0.9% INJ 10 ML SYR IV PRN (20:23)
[2021-03-15] MEDS ORDERED: ceFAZolin 1GM VIAL (J0690 PER 500MG) IV SCH (21:00)
[2021-03-15 22:00] VITALS: BP 166/66
[2021-03-16] MEDS: VANCOMYCIN ORAL SOL 250MG/5ML ORAL SYRINGE PO SCH ×4 (00:22→17:51)
[2021-03-16 06:00] VITALS: BP 168/72
[2021-03-16] MEDS: SLF 3 ML SYR IV SCH ×3 (06:00→20:18)
[2021-03-16] MEDS: SODIUM CHLORIDE 0.9% INJ 10 ML SYR IV SCH ×2 (06:29→17:53)
[2021-03-16] MEDS ORDERED: DARBEPOETIN 100 MCG/0.5 ML *DIALYSIS* SYRINGE (J0882) IV SCH (06:55)
[2021-03-16 07:06] LABS: HEMATOCRIT 27.8 % (36.0-47.0); HEMOGLOBIN 8.8 g/dl (12.0-15.5); MEAN CORPUSCULAR HEMOGLOBIN 28.8 pg (27.0-33.0); MEAN CORPUSCULAR HGB CONC 31.7 g/dl (32.0-36.5); MEAN CORPUSCULAR VOLUME 90.8 fl (80.0-96.0); PLATELET COUNT, AUTOMATED 720 10^3/uL (150-450); RED BLOOD COUNT 3.06 10^6/uL (4.00-5.40); WHITE BLOOD COUNT 10.6 10^3/uL (4.0-10.0)
[2021-03-16 07:31] LABS: ALBUMIN 1.9 GM/DL (3.2-5.2); BILIRUBIN,TOTAL 5.1 MG/DL (0.2-1.0); CALCIUM LEVEL 9.2 MG/DL (8.5-10.1); CREATININE FOR GFR 4.88 MG/DL (0.55-1.30); GLOMERULAR FILTRATION RATE 13.2 (>60); POTASSIUM SERUM 4.6 MEQ/L (3.5-5.1); TOTAL PROTEIN 7.4 GM/DL (6.4-8.2)
[2021-03-16] MEDS: HEPARIN SOD (PORCINE) 5000UNITS/ML 1ML VIAL/SYRINGE SC SCH ×2 (09:00→20:17)
[2021-03-16] MEDS ORDERED: MAGIC MOUTHWASH SUSPENSION BTL SS PRN (10:00)
[2021-03-16] MEDS: HumaLOG INSULIN (NovoLOG) PER UNIT SC SCH ×4 (10:28→20:18)
[2021-03-16] MEDS: ISOSORBIDE MON. (IMDUR) 30 MG XR TAB PO SCH (10:28)
[2021-03-16] MEDS: cloNIDine 0.1MG TABLET PO SCH (10:29)
[2021-03-16] MEDS: ASPIRIN 81MG ENTERIC TABLET PO SCH (10:29)
[2021-03-16] MEDS: CALCITRIOL 0.25 MCG CAP (S0169) PO SCH (10:30)
[2021-03-16] MEDS: METOPROLOL TART 50 MG TAB PO SCH ×2 (10:30→20:17)
[2021-03-16] MEDS: minoxidiL 2.5 MG TAB PO SCH ×2 (10:30→20:17)
[2021-03-16] MEDS: (RENVELA) SEVELAMER **CARBONate** 800 MG TAB PO SCH ×3 (10:33→17:51)
[2021-03-16] MEDS: LACTOBACILLUS ACIDOPHILUS CAP (BACID) PO SCH ×2 (10:33→17:51)
--- NOTE | 2021-03-16 11:01 | IPNPDOC ---
Text Note Date of Service The patient was seen on 03/16/21. NOTE NOTE SUBJECTIVE: -Afebrile overnight -Now on room air OBJECTIVE: VS: Please see below CONSTITUTIONAL: NAD, AO x 3 EYES: PERRLA, EOM intact HENT, MOUTH: Normocephalic, atraumatic, moist mucous membranes, NC in place on 2L NECK: SUPPLE, no JVD, no lymphadenopathy, no carotid bruit CV: murmur, NSR, S1S2 normal, no rubs/gallops CHEST: Right upper chest permacath RESPIRATORY: Clear to auscultation bilaterally, no rales/rhonchi/wheezes GI: Normoactive bowel sounds in all 4 quadrants, soft, nontender, nondistended, no rebound or guarding, no organomegaly MUSCULOSKELETAL: LUE PICC line (placed 03/08/21). Normal ROM. No cyanosis, clubbing, swelling, joint deformity, extremity edema INTEGUMENTARY: chronic LE skin changes. Left foot covered in bandages, no noted leakage. no rashes, no lesions, no erythema NEUROLOGIC: Decreased sensation of b/l feet-chronic. No motor deficits. Cranial Nerves II-XII are intact, no focal deficits PSYCHIATRIC: Mood and affect are normal LABORATORY DATA: WBC 10.6 Hgb 8.8 platelets 720 na 131 Tbili 5.1 Alk phos 597 CRP 6.36 MICRO: BCx x 2 sets from 03/13/21 : NGTD BCx x 2 sets from 03/12/21 : NGTD BCx x 2 sets from 03/11/21 : NGTD BCx x 2 sets from 03/10/21 : MSSA, sensitivities in chart BCx x 2 sets from 03/09/21 : MSSA, sensitivities in chart BCx x 2 sets from 03/08/21 : MSSA, sensitivities in chart BCx x 2 sets ( one peripherally- set #1, one from permacath-set #2) from 03/09/21: Set #1: Staph aureus , Set #2: NG to date Left foot wound cx: Staph aureus, MSSA IMAGING: TTE 03/09/21: EF 60-65% 1. Normal global left ventricular systolic function. Assessment of the left ventricular diastolic function appeared to be normal. 2. Mildly enlarged left atrium with mild mitral regurgitation. 3. Kkat-sr-[id number] tricuspid regurgitation with moderately severe pulmonary hypertension. The right atrium also appeared to be mildly enlarged. 4. Trace pericardial effusion, no evidence of cardiac tamponade. 5. There are some features of elevated central venous pressure; the inferior vena cava is mildly enlarged. 6. No vegetations detected in this transthoracic echocardiogram. To consider a transesophageal echocardiogram if there is any concern CT abd/pelvis w/out contrast 03/09/21: Improved lung bases as described above, otherwise, no significant change from the prior exam with findings as described above. CTA of left foot 03/08/21: FINDINGS: Bones/joints: There is a enhancing joint effusion in the 2nd toe MTP joint. There is erosion of the medial 2nd metatarsal head and base of the proximal phalanx. Mild degenerative changes in the midfoot. 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 Benign-appearing periosteal reaction along the 4th metatarsal. Ankle mortise is unremarkable. No acute fracture or malalignment. Soft tissues: Generalized soft tissue swelling in the foot. There is large area of soft tissue ulceration and edema in the plantar surface of the foot at the 1st-2nd toe interspace. Peripherally enhancing fluid is present in the area of ulceration extending to the 2nd toe MTP joint measuring approximately 2.4 x 0.8 x 1.0 cm. Some soft tissue enhancement also extends along the proximal phalanx of the 2nd toe. Second smaller pocket of fluid in the dorsal 2nd toe soft tissues measuring 8 mm. IMPRESSION: Large ulceration in the plantar foot soft tissues with associated subcutaneous abscess. Septic joint with changes of osteomyelitis in the 2nd MTP joint. CT angio of chest 03/08/21: 1. Worsening ground-glass attenuation in both lungs may be due to pulmonary edema or air trapping in the setting of viral airways disease. 2. Cardiomegaly. 3. No pulmonary embolism. CXR: Improved lung menjivar otherwise no significant change. MARINO: per my discussion with Dr. Jerez: No vegetations Very mild AR with normal aortic valve Moderate TR Small pericardial effusion over RA and RV No diastolic chamber collapse ASSESSMENT: 35-year-old female with past medical history of end-stage renal disease on hemodialysis Thursday/Thursday/Thursday, insulin-dependent diabetes mellitus type 1, peripheral neuropathy, pulmonary hypertension, hypertension, history of C. difficile admitted for sepsis with MSSA bacteremia and L foot abscess and osteomyelitis. PLAN: Abscess, large ulceration in the left plantar foot soft tissues with associated ? septic joint, osteomyelitis in the 2nd MTP joint, sepsis with bacteremia -POD 5 for left foot 2nd metatarsal head excision and I&D by Dr. Mondragon, POD 3 more irrigation and antibiotic beads placement -CT as above -MSSA in all blood culture sets and wound culture until 03/11, negative since then -F/u all repeat BCx -Switched to ancef 03/15 (treatment day 9) -On probiotic MSSA bacteremia likely 2/2 to LLE abscess with osteomyelitis and potential s eptic joint? with severe sepsis -Unlikely permacath as culture neg, echocardiogram (please see above) did not show vegetations -f/u repeat BCx, NGTD -NotePatient had LUE PICC placed in ER prior to being admitted while bacteremic. Spoke with Dr. Krishnamurthy who recommended monitoring and if she continued to have more +BCx or febrile, will have to replace permacath. -MARINO showed no vegetations as noted above -Switched to ancef 03/15 (treatment day 9) C. difficile infection, recurrent -Hx of c. diff in past -Started on Po vancomycin 03/10/21, day 7 -C/w probiotics, closely monitoring lytes SOB 2/2 to ground-glass attenuation in both lungs poss 2/2 pulmonary edema or air trapping in the setting of viral airways disease -S/p 3 L removed with HD on 03/09/21, currently on 2 L NC and attempting to wean down -Less likely to be CAP vs. HCAP (recent hospitalization from 01/25/21-02/19/21), currently on nafcillin -Resp panel neg -Had some pulmonary edema on CT above -BNP 29K, incr from last in system recorded as 23K (chronically elevated; however) -Supportive care, volume management via HD Uncontrolled IDDM Type I -last HbA1c 12/2020 10.3, states to be compliant with meds but is known to specia lists to not be -Consider adding back home levemir 5 U SC HS if eats well over next 24 hours. -C/w AC/HS ISS, CC diet, FS AC/HS, hypoglycemic protocol Isolated conjugated hyperbilirubinemia: -MEEK, ANCA, and anti-mitochondrial ab had resulted negative. Pt ELIZABETH level elevated at 104. DDx for this included sarcoidosis -Hepatitis panel was negative in 2019; repeat negative -Liver pathology from [facility] 02/08/21: Benign liver parenchyma with dilated sinusoids, with perivenular/perisinusoidal fibrosis, suggestive of venous outflow obstruction. The iron stain shows increased iron, mostly in Kupfer ellie ls, consistent with moderate siderosis. -Continue to monitor CMP -Dr. Krishnamurthy spoke with Dr. Cabrera who thought this was likely congestive hepatopathy as well as i/s/o sepsis, though it is an isolated hyperbilirubinemia without transaminitis and possible c/f obstructive pathology. For now Dr. Krishnamurthy o rdered liver dopper US to quiry possible portal venous thrombi though isolated hyperbili is not the typical presentation either. HTN, resolved urgency -BP has been normotensive and over the past several days lower than her normal -C/w all meds as hemodynamics allow. Elevated BNP likely 2/2 to renal disease -no documented diastolic dysfunction on echo above -Chronically elevated -c/w HD Peripheral neuropathy, severe -not on any home meds ESRD on HD MWF -Nephrology following Pulm HTN (PASP 50s) -C/w home meds Chronic Thrombocytosis -CBC daily Anemia likely 2/2 to ESRD - Hg at baseline -CBC daily Hyponatremia likely 2/2 ESRD and hyperglycemia combined - c/w Dialysis as scheduled Anxiety - c/w Hydroxyzine DVT px -Heparin DISPOSITION: Admitted as acute inpatient. Nephrology, Podiatry consulted. ID consulted. Plan is home when medically improved. VS,Fishbone, I+O VS, Fishbone, I+O Laboratory Tests 03/16/21 06:36 Vital Signs Date Time Temp Pulse Resp B/P (MAP) Pulse Ox O2 Delivery O2 Flow Rate FiO2 03/16/21 06:00 97.9 85 21 168/72 (104) 92 Room Air 03/15/21 08:00 2.0 03/11/21 11:40 95 I&O- Last 24 Hours up to 6 AM 03/16/21 06:00 Intake Total 920 ml Output Total 2500 ml Balance -1580 ml KRISTI PANDA MD March 16, 2021 08:48
[2021-03-16 14:00] VITALS: BP 167/78
--- NOTE | 2021-03-16 15:47 | REP ---
INDICATION: R/O PORTAL VEIN THROMBOSIS. COMPARISON: 02/15/2021. TECHNIQUE: Real-time sonographic evaluation of ABDOMEN performed. Real-time sonographic evaluation and duplex Doppler interrogation of portal vasculature performed. FINDINGS: No gallstones are seen in the gallbladder but there is persistent gallbladder wall thickening up to 5 mm.. There is no intrahepatic or extrahepatic biliary dilatation, common bile duct measures 4 mm in maximum diameter. The liver demonstrates homogeneous echotexture with no gross mass. The main portal vein is patent and measures 15 mm in diameter suggesting portal hypertension. There is normal direction of flow in the portal veins. There is no evidence of portal vein or hepatic vein thrombosis. Superior mesenteric vein and splenic vein are patent. Velocity in the main portal vein is 49.4 centimeters/second. Peak systolic velocity of the main hepatic artery is 167 centimeters/second. Visualized pancreas is grossly unremarkable, not well seen due to overlying bowel gas. Spleen is normal in size with no intrinsic abnormality, measuring 9.7 cm in length. Multiple calcified granulomas are seen in the spleen. There is no evidence of hydronephrosis, cyst, mass, or calculus in either kidney. The right kidney measures 9.7 x 5.0 x 3.7 cm. Left renal dimensions are 10.3 x 4.4 x 4.4 cm. The abdominal aorta is normal in caliber with no aneurysm. The distal abdominal aorta could not be visualized due to overlying bowel gas. Trace perihepatic free fluid is seen. IMPRESSION: Gallbladder wall thickening with no evidence of intraluminal calculus. No biliary dilatation. Mild perihepatic free fluid. Mildly dilated patent main portal vein compatible with portal hypertension. No evidence of portal vein or hepatic vein thrombosis. Portal veins demonstrate Hepatopetal flow. <Electronically signed by Hesham Oconnell > 03/16/21 1544
[2021-03-16] MEDS: ceFAZolin SOD 1 GM in D5W MINI-BAG PLUS 50 ML IV SCH (20:13)
[2021-03-16 20:15] VITALS: BP 168/81
[2021-03-16] MEDS: LOSARTAN 50MG TABLET PO SCH (20:18)
--- NOTE | 2021-03-16 23:32 | IPN ---
NEPHROLOGY PROGRESS NOTE DATE: 03/16/2021 SUBJECTIVE: The patient was seen and examined at the bedside today morning. She is afebrile, hemodynamically stable. She continues to be on IV antibiotics. She reports that when she got the transesophageal echocardiogram done, after that she has been having pain in her throat and she feels like her uvula is swollen and she looks at her throat in the mirror. She was dialyzed yesterday. She tolerated the hemodialysis procedure well and she reports her diarrhea and C-diff is controlled with oral antibiotics. OBJECTIVE: VITAL SIGNS: Temperature is 98.8 degrees Fahrenheit, blood pressure 167/78, pulse is 82, respiratory rate of 16, saturating 96% on room air. INTAKE AND OUTPUT: Urine output recorded as 50 mL. Ultrafiltration with hemodialysis was 2.5 liters. Weight in the bed scale was 90.4 kg yesterday. PHYSICAL EXAMINATION: GENERAL APPEARANCE: The patient is awake, alert, oriented x3, sitting up in the bed in no apparent distress. HEAD AND NECK: Extraocular muscles intact. Pupils are equally round and reactive to light. She has mild jaundice in the sclerae. On examination of her throat she does have swelling and a small ulceration with some granulation tissue at the uvula, probably secondary to some trauma during the transesophageal echocardiogram. Neck is supple. She has a right IJ hemodialysis catheter. CARDIOVASCULAR: S1, S2, regular rate. EXTREMITIES: 1+ edema of the bilateral lower extremities. RESPIRATORY: Chest is clear to auscultation bilaterally. Bilaterally currently no rales or rhonchi. ABDOMEN: Soft, positive bowel sounds, nontender, no organomegaly. MUSCULOSKELETAL: The patient has a dressing on the left foot. ASSEMBLER FITTER: No focal deficits. Power is 5/5 in all extremities. LAB REVIEW: CBC showed a WBC count of 10.6, hemoglobin 8.8, platelet count 720. BMP showed sodium 131, potassium 4.6, chloride 97, bicarbonate 25, BUN 21, creatinine is 4.8. Total bilirubin is 5.1. AST 28, ALT is 23, alkaline phosphatase is 597. C-reactive protein is improving and it is 6.3 today. Microbiology Repeat blood cultures from March 13 are negative so far. IMAGING: Abdominal ultrasound was done to rule out portal vein thrombosis which showed gallbladder wall thickness with no evidence of intraluminal calculus. No biliary dilatation. There was mild fatty hepatic free fluid, mildly dilated portal vein compatible with portal hypertension. There was no evidence of portal vein or hepatic vein thrombosis. CURRENT INPATIENT MEDICATIONS: The patient's medications were all reviewed by myself. She continues to be on IV Ancef. I have started the patient on Magic Mouthwash gargles. No other significant change in the medications. She continues to be on oral Vancomycin as well. ASSESSMENT AND PLAN: 1. End-stage renal disease - The patient was dialyzed yesterday, however she still has elevated blood pressures, some signs of volume overload and hepatic congestion. She will be dialyzed again tomorrow morning and I will try to remove at least 3.5 liters of fluid. 2. Staph aureus bacteremia with left foot osteomyelitis - The patient continues to be on Ancef. 3. Pain in the throat and swelling of the uvula - The patient was given Magic Mouthwash. Her pain should get better after a few days. 4. Hypertension - The patient has elevated blood pressure because of volume overload. As mentioned above, she will get an extra session of dialysis tomorrow. Continue multi-drug antihypertensive regimen. 5. Anemia and end-stage renal disease - The patient has infection and renal failure. She was started on Aranesp with dialysis. 6. C-diff colitis - The patient continues to be on oral Vancomycin as well. 7. Elevated liver enzymes - The patient got a liver biopsy done during previous hospitalization which showed it is secondary to hepatic congestion. As mentioned above, dialysis and fluid removal would help improve her bilirubin and liver enzymes.
[2021-03-17] MEDS: VANCOMYCIN ORAL SOL 250MG/5ML ORAL SYRINGE PO SCH ×5 (00:25→23:44)
[2021-03-17] MEDS: SLF 3 ML SYR IV SCH ×2 (06:00→11:59)
[2021-03-17 06:19] VITALS: BP 162/79
[2021-03-17] MEDS: SODIUM CHLORIDE 0.9% INJ 10 ML SYR IV SCH ×2 (06:20→17:25)
[2021-03-17 06:58] LABS: HEMATOCRIT 26.4 % (36.0-47.0); HEMOGLOBIN 8.6 g/dl (12.0-15.5); MEAN CORPUSCULAR HEMOGLOBIN 29.9 pg (27.0-33.0); MEAN CORPUSCULAR HGB CONC 32.6 g/dl (32.0-36.5); MEAN CORPUSCULAR VOLUME 91.7 fl (80.0-96.0); PLATELET COUNT, AUTOMATED 704 10^3/uL (150-450); RED BLOOD COUNT 2.88 10^6/uL (4.00-5.40); WHITE BLOOD COUNT 12.6 10^3/uL (4.0-10.0)
[2021-03-17 07:32] LABS: ALBUMIN 2.1 GM/DL (3.2-5.2); BILIRUBIN,TOTAL 6.7 MG/DL (0.2-1.0); CALCIUM LEVEL 9.6 MG/DL (8.5-10.1); CREATININE FOR GFR 6.34 MG/DL (0.55-1.30); GLOMERULAR FILTRATION RATE 9.8 (>60); TOTAL PROTEIN 8.4 GM/DL (6.4-8.2)
[2021-03-17] MEDS: cloNIDine 0.1MG TABLET PO SCH (07:54)
[2021-03-17] MEDS: CALCITRIOL 0.25 MCG CAP (S0169) PO SCH (07:54)
[2021-03-17] MEDS: minoxidiL 2.5 MG TAB PO SCH ×2 (07:55→22:21)
[2021-03-17] MEDS: LACTOBACILLUS ACIDOPHILUS CAP (BACID) PO SCH ×2 (07:55→17:24)
[2021-03-17] MEDS: ASPIRIN 81MG ENTERIC TABLET PO SCH (07:55)
[2021-03-17] MEDS: ISOSORBIDE MON. (IMDUR) 30 MG XR TAB PO SCH (07:55)
[2021-03-17] MEDS: (RENVELA) SEVELAMER **CARBONate** 800 MG TAB PO SCH ×3 (07:55→17:24)
[2021-03-17] MEDS: HEPARIN SOD (PORCINE) 5000UNITS/ML 1ML VIAL/SYRINGE SC SCH ×2 (07:56→21:00)
[2021-03-17] MEDS: METOPROLOL TART 50 MG TAB PO SCH ×2 (07:56→22:22)
[2021-03-17] MEDS: HumaLOG INSULIN (NovoLOG) PER UNIT SC SCH ×4 (07:57→21:00)
[2021-03-17] MEDS: PERCOCET 5MG/325MG TAB PO PRN ×2 (08:40→22:21)
--- NOTE | 2021-03-17 11:13 | IPNPDOC ---
Text Note Date of Service The patient was seen on 03/17/21. NOTE SUBJECTIVE: -Afebrile overnight OBJECTIVE: VS: Please see below CONSTITUTIONAL: NAD, AO x 3 EYES: PERRLA, EOM intact HENT, MOUTH: Normocephalic, atraumatic, moist mucous membranes, NC in place on 2L NECK: SUPPLE, no JVD, no lymphadenopathy, no carotid bruit CV: murmur, NSR, S1S2 normal, no rubs/gallops CHEST: Right upper chest permacath RESPIRATORY: Clear to auscultation bilaterally, no rales/rhonchi/wheezes GI: Normoactive bowel sounds in all 4 quadrants, soft, nontender, nondistended, no rebound or guarding, no organomegaly MUSCULOSKELETAL: LUE PICC line (placed 03/08/21). Normal ROM. No cyanosis, clubbing, swelling, joint deformity, extremity edema INTEGUMENTARY: chronic LE skin changes. Left foot covered in bandages, no noted leakage. no rashes, no lesions, no erythema NEUROLOGIC: Decreased sensation of b/l feet-chronic. No motor deficits. Cranial Nerves II-XII are intact, no focal deficits PSYCHIATRIC: Mood and affect are normal LABORATORY DATA: WBC 12.6 Hgb 8.6 platelets 704 na 129 Tbili 6.7 MICRO: BCx x 2 sets from 03/13/21 : NGTD BCx x 2 sets from 03/12/21 : NGTD BCx x 2 sets from 03/11/21 : NGTD BCx x 2 sets from 03/10/21 : MSSA, sensitivities in chart BCx x 2 sets from 03/09/21 : MSSA, sensitivities in chart BCx x 2 sets from 03/08/21 : MSSA, sensitivities in chart BCx x 2 sets ( one peripherally- set #1, one from permacath-set #2) from 03/09/21: Set #1: Staph aureus , Set #2: NG to date Left foot wound cx: Staph aureus, MSSA IMAGING: TTE 03/09/21: EF 60-65% 1. Normal global left ventricular systolic function. Assessment of the left ventricular diastolic function appeared to be normal. 2. Mildly enlarged left atrium with mild mitral regurgitation. 3. Cuxk-nx-ejyijkfh tricuspid regurgitation with moderately severe pulmonary hypertension. The right atrium also appeared to be mildly enlarged. 4. Trace pericardial effusion, no evidence of cardiac tamponade. 5. There are some features of elevated central venous pressure; the inferior vena cava is mildly enlarged. 6. No vegetations detected in this transthoracic echocardiogram. To consider a transesophageal echocardiogram if there is any concern CT abd/pelvis w/out contrast 03/09/21: Improved lung bases as described above, otherwise, no significant change from the prior exam with findings as described above. CTA of left foot 03/08/21: FINDINGS: Bones/joints: There is a enhancing joint effusion in the 2nd toe MTP joint. There is erosion of the medial 2nd metatarsal head and base of the proximal phalanx. Mild degenerative changes in the midfoot. 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 Benign-appearing periosteal reaction along the 4th metatarsal. Ankle mortise is unremarkable. No acute fracture or malalignment. Soft tissues: Generalized soft tissue swelling in the foot. There is large area of soft tissue ulceration and edema in the plantar surface of the foot at the 1st-2nd toe interspace. Peripherally enhancing fluid is present in the area of ulceration extending to the 2nd toe MTP joint measuring approximately 2.4 x 0.8 x 1.0 cm. Some soft tissue enhancement also extends along the proximal phalanx of the 2nd toe. Second smaller pocket of fluid in the dorsal 2nd toe soft tissues measuring 8 mm. IMPRESSION: Large ulceration in the plantar foot soft tissues with associated subcutaneous abscess. Septic joint with changes of osteomyelitis in the 2nd MTP joint. CT angio of chest 03/08/21: 1. Worsening ground-glass attenuation in both lungs may be due to pulmonary edema or air trapping in the setting of viral airways disease. 2. Cardiomegaly. 3. No pulmonary embolism. CXR: Improved lung menjivar otherwise no significant change. MARINO: per my discussion with Dr. Jerez: No vegetations Very mild AR with normal aortic valve Moderate TR Small pericardial effusion over RA and RV No diastolic chamber collapse Abdominal US, complete: No gallstones are seen in the gallbladder but there is persistent gallbladder wall thickening up to 5 mm.. There is no intrahepatic or extrahepatic biliary dilatation, common bile duct measures 4 mm in maximum diameter. The liver demonstrates homogeneous echotexture with no gross mass. The main portal vein is patent and measures 15 mm in diameter suggesting portal hypertension. There is normal direction of flow in the portal veins. There is no evidence of portal vein or hepatic vein thrombosis. Superior mesenteric vein and splenic vein are patent. Velocity in the main portal vein is 49.4 centimeters/second. Peak systolic velocity of the main hepatic artery is 167 centimeters/second. Visualized pancreas is grossly unremarkable, not well seen due to overlying bowel gas. Spleen is normal in size with no intrinsic abnormality, measuring 9.7 cm in length. Multiple calcified granulomas are seen in the spleen. There is no evidence of hydronephrosis, cyst, mass, or calculus in either kidney. The right kidney measures 9.7 x 5.0 x 3.7 cm. Left renal dimensions are 10.3 x 4.4 x 4.4 cm. The abdominal aorta is normal in caliber with no aneurysm. The distal abdominal aorta could not be visualized due to overlying bowel gas. Trace perihepatic free fluid is seen. IMPRESSION: Gallbladder wall thickening with no evidence of intraluminal calculus. No biliary dilatation. Mild perihepatic free fluid. Mildly dilated patent main portal vein compatible with portal hypertension. No evidence of portal vein or hepatic vein thrombosis. Portal veins demonstrate Hepatopetal flow. ASSESSMENT: 35-year-old female with past medical history of end-stage renal disease on hemodialysis Thursday/Thursday/Thursday, insulin-dependent diabetes mellitus type 1, peripheral neuropathy, pulmonary hypertension, hypertension, history of C. difficile admitted for sepsis with MSSA bacteremia and L foot abscess and osteomyelitis. PLAN: Abscess, large ulceration in the left plantar foot soft tissues with associated ? septic joint, osteomyelitis in the 2nd MTP joint, sepsis with bacteremia -POD 6 for left foot 2nd metatarsal head excision and I&D by Dr. Mondragon, POD 4 more irrigation and antibiotic beads placement -CT as above -MSSA in all blood culture sets and wound culture until 03/11, negative since then -F/u all repeat BCx -Switched to ancef 03/15 (treatment day 10) -On probiotic MSSA bacteremia likely 2/2 to LLE abscess with osteomyelitis and potential septic joint? with severe sepsis -Unlikely permacath as culture neg, echocardiogram (please see above) did not show vegetations -f/u repeat BCx, NGTD -NotePatient had LUE PICC placed in ER prior to being admitted while ba cteremic. Spoke with Dr. Krishnamurthy who recommended monitoring and if she continued to have more +BCx or febrile, will have to replace permacath. -MARINO showed no vegetations as noted above -Switched to ancef 03/15 (treatment day 10) C. difficile infection, recurrent -Hx of c. diff in past -Started on Po vancomycin 03/10/21, day 8 -C/w probiotics, closely monitoring lytes SOB 2/2 to ground-glass attenuation in both lungs poss 2/2 pulmonary edema or air trapping in the setting of viral airways disease -S/p 3 L removed with HD on 03/09/21, currently on 2 L NC and attempting to wean down -Less likely to be CAP vs. HCAP (recent hospitalization from 01/25/21-02/19/21), currently on nafcillin -Resp panel neg -Had some pulmonary edema on CT above -BNP 29K, incr from last in system recorded as 23K (chronically elevated; however) -Supportive care, volume management via HD Uncontrolled IDDM Type I -last HbA1c 12/2020 10.3, states to be compliant with meds but is known to specialists to not be -Consider adding back home levemir 5 U SC HS if eats well over next 24 hours. -C/w AC/HS ISS, CC diet, FS AC/HS, hypoglycemic protocol Isolated conjugated hyperbilirubinemia: -MEEK, ANCA, and anti-mitochondrial ab had resulted negative. Pt ELIZABETH level elevated at 104. DDx for this included sarcoidosis -Hepatitis panel was negative in 2019; repeat negative -Liver pathology from [facility] 02/08/21: Benign liver parenchyma with dilated sinusoids, with perivenular/perisinusoidal fibrosis, suggestive of venous outflow obstruction. The iron stain shows increased iron, mostly in Kupfer cells, consistent with moderate siderosis. -Continue to monitor CMP -Dr. Krishnamurthy spoke with Dr. Cabrera who thought this was likely congestive hepatopathy as well as i/s/o sepsis, though it is an isolated hyperbilirubinemia without transaminitis and possible c/f obstructive pathology. Dr. Krishnamurthy ordered abd dopper US to quiry possible portal venous thrombi that was negative though it did show some portal HTN but no thrombus. HTN, resolved urgency -BP has been normotensive and over the past several days lower than her normal -C/w all meds as hemodynamics allow. Elevated BNP likely 2/2 to renal disease -no documented diastolic dysfunction on echo above -Chronically elevated -c/w HD Peripheral neuropathy, severe -not on any home meds ESRD on HD MWF -Nephrology following Pulm HTN (PASP 50s) -C/w home meds Chronic Thrombocytosis -CBC daily Anemia likely 2/2 to ESRD - Hg at baseline -CBC daily Hyponatremia likely 2/2 ESRD and hyperglycemia combined - c/w Dialysis as scheduled Anxiety - c/w Hydroxyzine DVT px -Heparin DISPOSITION: Admitted as acute inpatient. Nephrology, Podiatry consulted. ID consulted. Plan is home when medically improved. VS,Fishbone, I+O VS, Fishbone, I+O Laboratory Tests 03/17/21 06:40 Vital Signs Date Time Temp Pulse Resp B/P (MAP) Pulse Ox O2 Delivery O2 Flow Rate FiO2 03/17/21 08:40 18 03/17/21 07:56 82 156/82 03/17/21 06:19 98.6 96 Room Air 03/15/21 08:00 2.0 03/11/21 11:40 95 I&O- Last 24 Hours up to 6 AM 03/17/21 06:00 Intake Total 540 ml Output Total 50 ml Balance 490 ml KRISTI PANDA MD March 17, 2021 09:04
[2021-03-17] MEDS: MAGIC MOUTHWASH SUSPENSION BTL SS SCH ×3 (11:58→22:20)
--- NOTE | 2021-03-17 20:48 | IPN ---
PROGRESS NOTE DATE: 03/17/2021 SUBJECTIVE: Patient was seen and examined at the bedside today morning. She is afebrile, hemodynamically stable. She still reports sore throat and she reports she has not been given any mouthwash for gargle. Today, is patient's extra day of hemodialysis and ultrafiltration for high blood pressure and fluid overload. OBJECTIVE: Vital signs: Temperature is 98.6 degrees Fahrenheit, blood pressure 156/82, pulse is 82, respiratory rate of 18, saturating 96% on room air. Intake and output: Urine output recorded is 50 mL. Weight in the bed scale is not available. PHYSICAL EXAMINATION: General: Patient is awake, alert, oriented times three, laying in bed, no apparent distress. Head and neck exam: Extraocular muscles intact. Pupils equally round and reactive to light. Mucous membranes are moist. She still has erythema and ulceration of the uvula. Neck is supple, she has an internal hemodialysis catheter. Cardiovascular: S1, S2, regular rate. 1+ edema of the bilateral lower extremities. Respiratory: Chest is clear to auscultation bilaterally. Bilateral equal air entry. No rales or rhonchi. Abdomen: Soft, positive bowel sounds, nontender, no organomegaly. Musculoskeletal: She has a dressing on the left foot. Central nervous system (STOCK RECEIVER): No focal deficit. Power is 5/5 in all extremities. LABORATORY REVIEW: CBC showed WBC 12.6, hemoglobin 8.6, platelets are 704. BMP showed sodium 129, potassium 5, chloride 96, bicarbonate 21, BUN 28, creatinine is 6.3, total bilirubin is 6.7. CURRENT INPATIENT MEDICATIONS: Patient's medications were all reviewed by myself. No significant change in the medications today. ASSESSMENT AND PLAN: 1. End-stage renal disease. Patient's regular dialysis days are Thursday, Thursday, Thursday, however she is fluid overloaded. She is going to get an extra session of dialysis and fluid removal will be at least 3.5 kg. 2. Left foot osteomyelitis and Staphylococcus aureus bacteremia. Patient is on Ancef. She has mild persistent leukocytosis. C-reactive protein is improving. 3. Pain and ulceration of the uvula. Patient is getting Magic Mouthwash now. I have changed the order to every 5 hours [id number] for the next 2 days. 4. Hypertension. Patient is on multidrug antihypertensive regimen. Fluid status will be optimized with dialysis as mentioned above. 5. Anemia in end-stage renal disease. Hemoglobin level is suboptimal at 8.6. She was started on Aranesp with dialysis. If hemoglobin stays low then dose will be increased. 6. Secondary hyperparathyroidism. Continue current dose of calcitriol and Renvela.
[2021-03-17 20:56] VITALS: BP 160/86
[2021-03-17] MEDS: ceFAZolin SOD 1 GM in D5W MINI-BAG PLUS 50 ML IV SCH (22:20)
[2021-03-17] MEDS: LOSARTAN 50MG TABLET PO SCH (22:21)
[2021-03-18] MEDS: MAGIC MOUTHWASH SUSPENSION BTL SS SCH ×6 (01:00→20:40)
[2021-03-18] MEDS: VANCOMYCIN ORAL SOL 250MG/5ML ORAL SYRINGE PO SCH ×3 (06:17→18:09)
[2021-03-18] MEDS: SODIUM CHLORIDE 0.9% INJ 10 ML SYR IV SCH ×2 (06:18→18:10)
[2021-03-18] MEDS: cloNIDine 0.1MG TABLET PO SCH (06:19)
[2021-03-18] MEDS: METOPROLOL TART 50 MG TAB PO SCH ×2 (06:19→20:39)
[2021-03-18] MEDS: ASPIRIN 81MG ENTERIC TABLET PO SCH (06:19)
[2021-03-18] MEDS: CALCITRIOL 0.25 MCG CAP (S0169) PO SCH (06:19)
[2021-03-18] MEDS: minoxidiL 2.5 MG TAB PO SCH ×2 (06:19→20:39)
[2021-03-18] MEDS: ISOSORBIDE MON. (IMDUR) 30 MG XR TAB PO SCH (06:20)
[2021-03-18 06:32] VITALS: BP 172/89
[2021-03-18 07:01] LABS: HEMATOCRIT 24.3 % (36.0-47.0); MEAN CORPUSCULAR HEMOGLOBIN 30.4 pg (27.0-33.0); MEAN CORPUSCULAR HGB CONC 32.9 g/dl (32.0-36.5); MEAN CORPUSCULAR VOLUME 92.4 fl (80.0-96.0); PLATELET COUNT, AUTOMATED 695 10^3/uL (150-450); RED BLOOD COUNT 2.63 10^6/uL (4.00-5.40); WHITE BLOOD COUNT 14.6 10^3/uL (4.0-10.0)
[2021-03-18] MEDS ORDERED: DARBEPOETIN 200MCG/0.4ML *DIALYSIS* SYRINGE (J0882 PER 1MCG) IV SCH (07:25)
[2021-03-18 08:04] LABS: ALBUMIN 2.1 GM/DL (3.2-5.2); BILIRUBIN,TOTAL 7.3 MG/DL (0.2-1.0); CALCIUM LEVEL 9.4 MG/DL (8.5-10.1); CREATININE FOR GFR 5.06 MG/DL (0.55-1.30); GLOMERULAR FILTRATION RATE 12.7 (>60); PERCENT SATURATION 46.8 % (13.2-45.0); POTASSIUM SERUM 4.9 MEQ/L (3.5-5.1); TOTAL PROTEIN 7.8 GM/DL (6.4-8.2)
[2021-03-18] MEDS: HEPARIN SOD (PORCINE) 5000UNITS/ML 1ML VIAL/SYRINGE SC SCH ×2 (08:17→20:56)
[2021-03-18] MEDS: LACTOBACILLUS ACIDOPHILUS CAP (BACID) PO SCH ×2 (09:00→18:08)
[2021-03-18] MEDS: HumaLOG INSULIN (NovoLOG) PER UNIT SC SCH ×4 (09:00→20:56)
[2021-03-18] MEDS: (RENVELA) SEVELAMER **CARBONate** 800 MG TAB PO SCH ×3 (09:01→18:08)
--- NOTE | 2021-03-18 14:22 | IPNPDOC ---
Text Note Date of Service The patient was seen on 03/18/21. NOTE SUBJECTIVE: Patient was seen and examined this morning at beside. She states she is feeling tired but otherwise well. No new concerns today. No fever overnight. No diarrhea. OBJECTIVE: Vital Signs: See below GENERAL: Alert, comfortable, in no acute distress HEENT: Normocephalic, atraumatic, moist mucous membranes NECK: Supple, trachea midline, no lymphadenopathy CARDIOVASCULAR: Regular rate and rhythm, normal S1 and S2. 3/6 systolic ejection murmur in the R upper sternal border. No rubs or gallops RESPIRATORY: Clear to auscultation bilaterally with equal air entry bilaterally. No wheezing, rhonchi, or rales. ABDOMEN: Soft, nontender, nondistended, bowel sounds present EXTREMITIES: No LE edema. Pulses 2/4 in bilateral upper and lower extremities SKIN: Permacath present in the right upper chest. PICC line present in the LUE. No surrounding erythema, warmth or swelling of either access point. Left foot with surgical stitches, covered in clean, dry bandage. No drainage noted. NEUROLOGIC: Alert and oriented x3 to person, place and time. No focal deficits appreciated PSYCHIATRIC: Mood and affect appropriate ASSESSMENT/PLAN: 35-year-old female with past medical history of end-stage renal disease on hemodialysis Thursday/Thursday/Thursday, insulin-dependent diabetes mellitus type 1, peripheral neuropathy, pulmonary hypertension, hypertension, history of C. difficile admitted for sepsis with MSSA bacteremia and L foot abscess and osteomyelitis. # Abscess, large ulceration in the left plantar foot soft tissues with associated possible septic joint, osteomyelitis in the 2nd MTP joint, sepsis w ith bacteremia -POD 7 for left foot 2nd metatarsal head excision and I&D by Dr. Mondragon, POD 4 more irrigation and antibiotic beads placement -MSSA in all blood culture sets and wound culture until 03/11, negative since then -Continues on IV abx with Ancef, as noted below. - wet to dry dressings per Dr. Mondragon # MSSA bacteremia likely 2/2 to LLE abscess with osteomyelitis - initial positive blood cultures on 03/08. - Permacath culture negative. MARINO negative for vegetations. Repeat blood cultures negative on 03/11. - Treatment with IV nafcillin, switched to IV Ancef on 03/15 - Dr. Krishnamurthy consulted. Recommends continuing Ancef for a total of 6 weeks from her last negative culture (Stop date 04/22) - When discharged, will d/c PICC and give abx on HD days # C. difficile infection, recurrent - diarrhea now improved - Hx of c. diff in past - continue PO vancomycin 03/10/21, day 9 - continue probiotics - may benefit from Zinplava outpatient per Dr. Krishnamurthy to decrease recurrence risk # Type 1 DM with severe peripheral neuropathy - last HbA1c 12/2020 10.3 - consistent carb diet with SSI ACHS. Hypoglycemic protocol. - Home levemir 5 units HS on hold # Abnormal Liver profile - Isolated conjugated hyperbilirubinemia with elevated alkaline phosphatase and GGT. -MEEK, ANCA, and anti-mitochondrial ab had resulted negative. Pt ELIZABETH level elevated at 104. Hepatitis panel was negative in 2019; repeat negative. -Liver pathology from [facility] 02/08/21: Benign liver parenchyma with dilated sinusoids, with perivenular/perisinusoidal fibrosis, suggestive of venous outflow obstruction. The iron stain shows increased iron, mostly in Kupfer cells, consistent with moderate siderosis. - Liver doppler negative for portal vein thrombosis, does show show portal hypertension. - Dr. Krishnamurthy discussed with Dr. Cabrera who thought this was likely congestive hepatopathy. - Trend liver profile # HTN - with HTN urgency during admission which has resolved - continue Lopressor, Imdur, Catapres, Norvasc, Cozaar # Elevated BNP likely 2/2 to renal disease - chronicly elevated, no documented diastolic dysfunction on echocardiography - continue HD # ESRD on HD MWF - Nephrology consulted for HD while inpatient # Pulm HTN (PASP 50s) - continue home meds # Anemia likely 2/2 to ESRD - H/H stable at baseline - trend CBC daily # Chronic Thrombocytosis - trend CBC daily # Mild hyponatremia likely 2/2 ESRD and hyperglycemia - continue HD per nephrology # Anxiety - continue Hydroxyzine DVT prophylaxis: sc heparin DISPOSITION: Admitted as acute inpatient. Nephrology, Podiatry consulted. ID consulted. Plan is home when medically improved. GME ATTESTATION My faculty preceptor for this patient encounter was physically present during the encounter and was fully available. All aspects of the patient interview, examination, medical decision making process, and medical care plan development were reviewed and approved by the faculty preceptor. The faculty preceptor is aware and concurs with the plan as stated in the body of this note and will attest to such by his/her cosignature. ATTENDING NOTE I personally examined the patient, the investigative findings and discussed the plan as the detailed above by the resident physician. Briefly Ms. Mireles is now stably on ancef with resolved sepsis and will continue antibiotics for 6 weeks. She is completing a course of C.diff colitis and her current issue of concern has been the rising conjugated hyperbilirubinemia that on discussion with Dr. Vitale this AM, he does think that this could congestive though she may appear not particularly volume overloaded but recent biopsy showed sinusoidal congestion. He has been dialyzing daily because she also had been ordering uzbek takeout and adding to the hypervolemic state. She will otherwise have the PICC pulled pre-discharge and will have the ancef dosed in HD per Raghu. VS,Fishbone, I+O VS, Fishbone, I+O Laboratory Tests 03/18/21 06:42 Vital Signs Date Time Temp Pulse Resp B/P (MAP) Pulse Ox O2 Delivery O2 Flow Rate FiO2 03/18/21 06:32 98.0 80 16 172/89 (116) 100 Room Air 03/15/21 08:00 2.0 I&O- Last 24 Hours up to 6 AM 03/18/21 06:00 Intake Total 1430 ml Output Total 3550 ml Balance -2120 ml PARUL CLEVELAND D.O. March 18, 2021 14:22 KRISTI PANDA MD March 18, 2021 18:06
--- NOTE | 2021-03-18 14:28 | IPN ---
PROGRESS NOTE DATE: 03/18/2021 SUBJECTIVE: The patient was seen and examined at the bedside today morning. She was dialyzed for an extra session yesterday because of fluid overload and high blood pressure. 3.5 liters of fluid were removed and she reports no problem with dialysis. Her throat pain is also getting better with the mouthwash. OBJECTIVE: Vital signs: Temperature 98 degrees Fahrenheit, blood pressure 172/89, pulse is 80, respiratory rate of 16, saturating 100% on room air. Intake and output: Urine output recorded yesterday is 50 ml. Ultrafiltration was 3.5 liters with dialysis yesterday. Weight on the bed scale is not available. PHYSICAL EXAMINATION: General: The patient is awake, alert, oriented x2, sitting up in the bed in no apparent distress. Head and neck examination: Extraocular muscles are intact. Pupils equally round and reactive to light. Right IJ tunnel hemodialysis catheter is noted. Cardiovascular: S1, S2, regular rate. Trace edema in the bilateral lower extremities. Respiratory: Chest is clear to auscultation bilaterally. Bilateral equal air entry. No rales or rhonchi. Abdomen: Soft. Positive bowel sounds. Nontender, no organomegaly. Musculoskeletal: She has a dressing in the left foot. 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 Power is 5/5 in all extremities. LABORATORY REVIEW: Complete blood count (CBC) showed a WBC 14.6, hemoglobin is 8, platelets 695. Basic metabolic panel (BMP) showed sodium 139, potassium 4.9, chloride 98, bicarbonate 21, BUN 24, creatinine is 5. Iron is 96. Total iron binding capacity (TIBC) 205. Ferritin 4715. GGD is 1143. AST 42, ALT 18, alkaline phosphatase is 873, albumin is 2.1. CURRENT INPATIENT MEDICATIONS: The patient's medications are all reviewed by myself. There is no significant change in the medications as compared with yesterday, except that her Aranesp dose has been increased to 200 mcg with dialysis ASSESSMENT AND PLAN: 1. End-stage renal disease. The patient got an extra session of dialysis yesterday because of fluid overload and hypertension. She is going to get another session of dialysis and I would try to remove at least 3 to 4 kg of fluid as tolerated by blood pressure. 2. Hypertension. The patient is hypertensive despite multidrug regimen. As mentioned above, she is getting extra session of dialysis and ultrafiltration to optimize her fluid status. 3. Left foot osteomyelitis and Staphylococcus aureus bacteremia. The patient is currently on IV Ancef. Clinically, she is improving. 4. Anemia and end-stage renal disease. Aranesp dose was increased. Iron levels are adequate. If hemoglobin drops below 8, she will get packed red blood cells (PRBC) transfusion. 5. Secondary hyperparathyroidism and hypophosphatemia. Continue calcitriol and Renvela.
[2021-03-18] MEDS ORDERED: SODIUM CHLORIDE NASAL 0.65% SPRAY BTL (OCEAN) PRN (17:45)
[2021-03-18 20:22] VITALS: BP 158/70
[2021-03-18] MEDS: ceFAZolin SOD 1 GM in D5W MINI-BAG PLUS 50 ML IV SCH (20:39)
[2021-03-18] MEDS: LOSARTAN 50MG TABLET PO SCH (20:39)
[2021-03-18] MEDS: SODIUM CHLORIDE 0.9% INJ 10 ML SYR IV PRN (21:35)
[2021-03-19] VITALS (9 sets, daily range): BP systolic 152–196; BP diastolic 60–92
[2021-03-19] MEDS: VANCOMYCIN ORAL SOL 250MG/5ML ORAL SYRINGE PO SCH ×4 (00:13→18:07)
[2021-03-19] MEDS: MAGIC MOUTHWASH SUSPENSION BTL SS SCH ×6 (00:13→22:08)
[2021-03-19] MEDS: SODIUM CHLORIDE 0.9% INJ 10 ML SYR IV SCH ×2 (06:03→18:08)
[2021-03-19 06:34] LABS: HEMATOCRIT 22.9 % (36.0-47.0); HEMOGLOBIN 7.5 g/dl (12.0-15.5); MEAN CORPUSCULAR HEMOGLOBIN 29.6 pg (27.0-33.0); MEAN CORPUSCULAR HGB CONC 32.8 g/dl (32.0-36.5); MEAN CORPUSCULAR VOLUME 90.5 fl (80.0-96.0); PLATELET COUNT, AUTOMATED 654 10^3/uL (150-450); RED BLOOD COUNT 2.53 10^6/uL (4.00-5.40); WHITE BLOOD COUNT 14.2 10^3/uL (4.0-10.0)
[2021-03-19 07:14] LABS: ALBUMIN 2.1 GM/DL (3.2-5.2); BILIRUBIN,TOTAL 5.5 MG/DL (0.2-1.0); CALCIUM LEVEL 8.8 MG/DL (8.5-10.1); CREATININE FOR GFR 4.09 MG/DL (0.55-1.30); GLOMERULAR FILTRATION RATE 16.2 (>60); POTASSIUM SERUM 4.2 MEQ/L (3.5-5.1); TOTAL PROTEIN 7.8 GM/DL (6.4-8.2)
[2021-03-19] MEDS: HEPARIN SOD (PORCINE) 5000UNITS/ML 1ML VIAL/SYRINGE SC SCH (09:00)
[2021-03-19] MEDS: CALCITRIOL 0.25 MCG CAP (S0169) PO SCH (09:10)
[2021-03-19] MEDS: (RENVELA) SEVELAMER **CARBONate** 800 MG TAB PO SCH ×3 (09:10→18:07)
[2021-03-19] MEDS: ASPIRIN 81MG ENTERIC TABLET PO SCH (09:10)
[2021-03-19] MEDS: LACTOBACILLUS ACIDOPHILUS CAP (BACID) PO SCH ×2 (09:11→18:07)
[2021-03-19] MEDS: METOPROLOL TART 50 MG TAB PO SCH ×2 (09:11→22:07)
[2021-03-19] MEDS: ISOSORBIDE MON. (IMDUR) 30 MG XR TAB PO SCH (09:12)
[2021-03-19] MEDS: minoxidiL 2.5 MG TAB PO SCH ×2 (09:12→22:06)
[2021-03-19] MEDS: cloNIDine 0.1MG TABLET PO SCH (09:12)
[2021-03-19] MEDS: HumaLOG INSULIN (NovoLOG) PER UNIT SC SCH ×4 (09:13→21:00)
--- NOTE | 2021-03-19 10:00 | IPN ---
PROGRESS NOTE DATE: 03/19/2021 SUBJECTIVE: The patient was seen and examined at the bedside today morning. She is afebrile and hemodynamically stable. She was dialyzed yesterday with 3.5 liters of fluid removed, which she tolerated well. The patient reports that she has been having blood clots from her nose and her hemoglobin has also dropped today as compared with yesterday. Blood pressures are still high at this time. OBJECTIVE: VITAL SIGNS: Temperature 98.5 degrees Fahrenheit, blood pressure 196/88, pulse 89, respiratory rate 18, saturating 95% on room air. INTAKE AND OUTPUT: Ultrafiltration with hemodialysis was 3.5 liters yesterday. Weight on the bed scale is not available. GENERAL: The patient is awake, alert, and oriented x3; laying in bed, in no apparent distress. HEAD AND NECK: Extraocular muscles intact. Pupils equally round and reactive to light. Mucous membranes are moist. NECK: Supple. She has a right IJ tunneled hemodialysis catheter. CARDIOVASCULAR: S1, S2. Regular rate. No edema of the bilateral lower extremities. RESPIRATORY: Chest is clear to auscultation bilaterally. Bilateral equal air entry. No rales or rhonchi. ABDOMEN: Soft with positive bowel sounds, nontender, and no organomegaly. MUSCULOSKELETAL: Left foot dressing is noted. FIBERGLASS BOAT BUILDER: No focal deficits. Power is 5/5 in all extremities. LABORATORY DATA: CBC showed a WBC of 14.2, hemoglobin 7.5, platelets 654,000. BMP showed sodium 132, potassium 4.2, chloride 95, bicarb 27, BUN 20, creatinine 4, calcium 8.8, total bilirubin 5.5, AST 53, ALT 60, alkaline phosphatase 960. CURRENT INPATIENT MEDICATIONS: The patient's medications were all reviewed by myself. I am going to stop the subcutaneous heparin at this time because of nasal bleeding. I have ordered one unit of packed red blood cells (PRBC) transfusion. She continues to be on antibiotics at this time. ASSESSMENT AND PLAN: 1. End-stage renal disease. The patient is getting extra sessions of dialysis because of fluid overload and hypertension. She will get another session of dialysis and with that, I would give her one unit of blood. 2. Anemia secondary to blood loss and end-stage renal disease. The patient is having nasal bleeds. She is getting Aranesp and the dose was increased. She is going to get one unit of PRBC transfusion as well. Subcutaneous heparin is being stopped. 3. Left foot osteomyelitis and Staphylococcus aureus bacteremia. Continue Ancef and oral vancomycin. 4. Hypertension. The patient is persistently hypertensive despite multidrug regimen. Daily fluid removal is being done to optimize her volume status. 5. Elevated liver enzymes. The patient has elevated LFTs. She had workup done during previous hospitalization including liver biopsy and it was attributed to congestive heart failure and hepatic congestion. For that, the patient is getting daily dialysis and fluid removal.
--- NOTE | 2021-03-19 11:23 | IPNPDOC ---
Text Note Date of Service The patient was seen on 03/19/21. NOTE SUBJECTIVE: Patient was seen and examined this morning at beside. She states she is having trouble sleeping at night because she sleep all day. She reports some pain in her foot which she states is "tolerable". No diarrhea. No fevers overnight. OBJECTIVE: Vital Signs: See below GENERAL: Alert, comfortable, in no acute distress HEENT: Normocephalic, atraumatic, moist mucous membranes NECK: Supple, trachea midline, no lymphadenopathy CARDIOVASCULAR: Regular rate and rhythm, normal S1 and S2. 3/6 systolic ejection murmur in the R upper sternal border. No rubs or gallops RESPIRATORY: Clear to auscultation bilaterally with equal air entry bilaterally. No wheezing, rhonchi, or rales. ABDOMEN: Soft, nontender, nondistended, bowel sounds present EXTREMITIES: No LE edema. Pulses 2/4 in bilateral upper and lower extremities SKIN: Permacath present in the right upper chest. PICC line present in the LUE. No surrounding erythema, warmth or swelling of either access point. Left foot with surgical stitches, covered in clean, dry bandage. No drainage noted. NEUROLOGIC: Alert and oriented x3 to person, place and time. No focal deficits appreciated PSYCHIATRIC: Mood and affect appropriate ASSESSMENT/PLAN: 35-year-old female with past medical history of end-stage renal disease on hemodialysis Thursday/Thursday/Thursday, insulin-dependent diabetes mellitus type 1, peripheral neuropathy, pulmonary hypertension, hypertension, history of C. difficile admitted for sepsis with MSSA bacteremia and L foot abscess and osteomyelitis. # Abscess, large ulceration in the left plantar foot soft tissues with associat ed possible septic joint, osteomyelitis in the 2nd MTP joint, sepsis with bacteremia -POD 8 for left foot 2nd metatarsal head excision and I&D by Dr. Mondragon -POD 5 more irrigation and antibiotic beads placement -MSSA in all blood culture sets and wound culture until 03/11, negative since then -Continues on IV abx with Ancef, as noted below. -Wet to dry dressings per Dr. Mondragon # MSSA bacteremia likely 2/2 to LLE abscess with osteomyelitis - initial positive blood cultures on 03/08. - Permacath culture negative. MARINO negative for vegetations. Repeat blood cultures negative on 03/11. - Treatment with IV nafcillin, switched to IV Ancef on 03/15 - Dr. Krishnamurthy consulted. Recommends continuing Ancef for a total of 6 weeks from her last negative culture (Stop date 04/22) - When discharged, will d/c PICC and give abx on HD days # C. difficile infection, recurrent - diarrhea now improved - Hx of c. diff in past - continue PO vancomycin 03/10/21, day 10, extended course due to recurrence - continue probiotics - may benefit from Zinplava outpatient per Dr. Krishnamurthy to decrease recurrence risk # Type 1 DM with severe peripheral neuropathy - last HbA1c 12/2020 10.3 - consistent carb diet with SSI ACHS. Hypoglycemic protocol. - Home levemir 5 units HS on hold # Abnormal Liver profile - Isolated conjugated hyperbilirubinemia with elevated alkaline phosphatase and GGT. -MEEK, ANCA, and anti-mitochondrial ab had resulted negative. Pt ELIZABETH level elevated at 104. Hepatitis panel was negative in 2019; repeat negative. -Liver pathology from [facility] 02/08/21: Benign liver parenchyma with dilated sinusoids, with perivenular/perisinusoidal fibrosis, suggestive of venous outflow obstruction. The iron stain shows increased iron, mostly in Kupfer cells, consistent with moderate siderosis. - Liver doppler negative for portal vein thrombosis, does show show portal hypertension. - Dr. Krishnamurthy discussed with Dr. Cabrera who thought this was likely congestive hepatopathy. - Trend liver profile # HTN - with HTN urgency during admission which has resolved - continue Lopressor, Imdur, Catapres, Norvasc, Cozaar - continues with additional HD for fluid removal # Elevated BNP likely 2/2 to renal disease - chronicly elevated, no documented diastolic dysfunction on echocardiography - continue HD # ESRD on HD MWF - Nephrology consulted for HD while inpatient # Pulm HTN (PASP 50s) - continue home meds # Anemia likely 2/2 to ESRD - H/H stable at baseline - trend CBC daily # Chronic Thrombocytosis - trend CBC daily # Mild hyponatremia likely 2/2 ESRD and hyperglycemia - continue HD per nephrology # Anxiety - continue Hydroxyzine DVT prophylaxis: sc heparin DISPOSITION: Admitted inpatient to med/surg. Nephrology, Podiatry consulted. ID consulted. PFS involved for discharge planning. VS,Fishbone, I+O VS, Fishbone, I+O Laboratory Tests 03/19/21 06:15 Vital Signs Date Time Temp Pulse Resp B/P (MAP) Pulse Ox O2 Delivery O2 Flow Rate FiO2 03/19/21 11:07 180/88 (118) 03/19/21 09:11 89 03/19/21 06:35 98.5 03/19/21 06:00 18 95 Room Air 03/15/21 08:00 2.0 I&O- Last 24 Hours up to 6 AM 03/19/21 06:00 Intake Total 910 ml Output Total 3500 ml Balance -2590 ml GME ATTESTATION GME ATTESTATION My faculty preceptor for this patient encounter was physically present during the encounter and was fully available. All aspects of the patient interview, examination, medical decision making process, and medical care plan development were reviewed and approved by the faculty preceptor. The faculty preceptor is aware and concurs with the plan as stated in the body of this note and will attest to such by his/her cosignature. ATTENDING NOTE I, Iker Beltran, have independently examined this patient and performed my own physical exam, as well as reviewed the documentation and edited where necessary. I have discussed in detail with the resident / student the findings and plan of treatment as documented by the resident / student and edited their note. I agree with their findings and treatment plan and have edited their documentation. I will continue to follow the patient during this hospital stay. PARUL CLEVELAND D.O. March 19, 2021 11:23 IKER BELTRAN MD March 19, 2021 14:35
--- NOTE | 2021-03-19 19:01 | IPNPDOC ---
Date Seen The patient was seen on 03/19/21. Progress Note INFECTIOUS DISEASE PROGRESS NOTE SUBJECTIVE: Patient seen and examined at the bedside this afternoon. She is feeling somewhat tired, as she just returned from dialysis. She denies any pain in her left foot. She also denies any nausea/vomiting/abdominal pain/diarrhea at this time. She is eager to go home. No other issues reported. OBJECTIVE PHYSICAL EXAMINATION: VITAL SIGNS: see below GENERAL: awake, alert and oriented, conversant in full sentences, very pleasant HEENT: PERRL, EOMI, Oral mucous membranes are moist without lesions. Sclerae are nonicteric NECK: The patient has no noted JVD. No adenopathy is appreciated. No thyromegaly CHEST/LUNGS: Lungs are clear bilaterally without rhonchi, rales, or wheezes. There is no tenderness to the chest wall. CHEST WALL: tunneled dialysis catheter present in R chest wall, nontender, no signs of erythema HEART: Regular rate and rhythm. 3/6 BARRON in RUSB. Distal pulses are 2+. No carotid bruits appreciated. ABDOMEN: Soft, nontender, somewhat distended. Unable to palpate liver edge denoting possible enlargement. Bowel sounds are positive. No masses are appreciated. There are no peritoneal signs. There is no [place] sign. EXTREMITIES: No peripheral edema. There is no focal long bone tenderness or deformity. Left foot wound examined: incision on dorsum of foot about 2cm in length appears to have healed s/p closure. Incision on plantar surface about 3cm, open, no surrounding erythema, very minimal drainage, no signs of acute infection SKIN: The patients skin is very dry, without rashes or lesions, scratch allen all over PSYCHIATRIC: AAO x 3, normal mood/affect NEUROLOGIC: No obvious focal deficits LABORATORY DATA: Please see below. ASSESSMENT: This is a 35 YO F with T1DM, [facility] on HD MWF [facility], HTN who presented with shortness of breath, fevers (Tmax 105) found to have MSSA bacteremia concerning for ongoing left foot osteomyelitis / abscess had drainage procedure , due to persistent bacteremia. Endocarditis and HD line infections ruled out. PLAN: 1. Sepsis 2/2 MSSA bacteremia from left foot abscess concern for endocarditis or HD line infection -Continue IV Ancef 1g Q24H with stop date 04/22 -MARINO negative for endocarditis -When patient is cleared for discharge, she can get Cefazolin with HD, 2g - 2g - 3g corresponding with her HD days for a total of 6 weeks from her last negative culture (Stop date 04/22), Nephrology contacted and in agreement 2. Left foot osteomyelitis with abscess: s/p I&D and metatarsal head amputation 03/09/21 -Continue wound care per Podiatry dr Mondragon with wet to dry dressings 3. C difficile infection recurrent : first positive c diff PCR 12/01/20 -Continue oral Vancomycin (day 9 out of 10) for now but she seems to have improved, denied any diarrhea today. Nursing reports no bowel movements today. -Continue probiotic BID -Would benefit from Zinplava IV to decrease risk of recurrence as outpatient as this is her second occurence in past 4 months and will need prolonged ATBX therapy 4. Hyperbilirubinemia and Jaundice: -Patient's bili trended down to 5.5 today -Case discussed with GI (Rick) who reviewed labs from previous hospitalization (transaminitis, liver bx showing congestive hepatopathy). Likely due to fluid status but does appear to be obstructive pattern. -ddx: cholestasis, stones, portal vein thrombosis -Liver US with doppler negative, ruled out portal V thrombosis. -Patient will need follow up with GI in outpatient setting VS, I&O, 24H, [place] Vital Signs/I&O Vital Signs Date Time Temp Pulse Resp B/P (MAP) Pulse Ox O2 Delivery O2 Flow Rate FiO2 03/19/21 16:15 97.4 79 16 192/91 Room Air 03/19/21 06:00 95 03/15/21 08:00 2.0 I&O- Last 24 Hours up to 6 AM 03/19/21 06:00 Intake Total 910 ml Output Total 3500 ml Balance -2590 ml Laboratory Data 24H LABS Laboratory Tests 2 03/18/21 20:16: Bedside Glucose (Misc Panel) 97 03/19/21 06:15: Nucleated Red Blood Cells % (auto) 0.1H, Anion Gap 10, Glomerular Filtration Rate 16.2L, Calcium Level 8.8, Total Bilirubin 5.5H, Aspartate Amino Transf (AST/SGOT) 53H, Alanine Aminotransferase (ALT/SGPT) 16, Alkaline Phosphatase 960H, Total Protein 7.8, Albumin 2.1L, Albumin/Globulin Ratio 0.4L 03/19/21 11:27: Bedside Glucose (Misc Panel) 304H 03/19/21 16:51: Bedside Glucose (Misc Panel) 114H CBC/BMP Laboratory Tests 03/19/21 06:15 Microbiology Microbiology 03/14/21 Respiratory Virus Panel (PCR) (LINDA) - Final, Complete 03/13/21 Blood Culture - Final, Complete NO GROWTH AFTER 5 DAYS 03/12/21 Blood Culture - Final, Complete NO GROWTH AFTER 5 DAYS 03/11/21 Blood Culture - Final, Complete NO GROWTH AFTER 5 DAYS 03/10/21 Wound Culture - Final, Complete Staphylococcus Aureus 03/10/21 Anaerobic Culture - Final, Complete 03/10/21 Gram Stain - Final, Complete 03/10/21 Wound Culture - Final, Complete Staphylococcus Aureus 03/09/21 Blood Culture - Final, Complete Staphylococcus Aureus 03/09/21 Blood Culture - Final, Complete NO GROWTH AFTER 5 DAYS GME ATTESTATION GME ATTESTATION My faculty preceptor for this patient encounter was physically present during the encounter and was fully available. All aspects of the patient interview, examination, medical decision making process, and medical care plan development were reviewed and approved by the faculty preceptor. The faculty preceptor is aware and concurs with the plan as stated in the body of this note and will attest to such by his/her cosignature. DREW WASSERMAN MD March 19, 2021 19:00
[2021-03-19] MEDS: ceFAZolin SOD 1 GM in D5W MINI-BAG PLUS 50 ML IV SCH (22:05)
[2021-03-19] MEDS: LOSARTAN 50MG TABLET PO SCH (22:06)
[2021-03-19] MEDS: ACETAMINOPHEN TAB 650MG DOSE (2X325MG) PO PRN (22:16)
[2021-03-19] MEDS: SODIUM CHLORIDE 0.9% INJ 10 ML SYR IV PRN (22:47)
[2021-03-20] MEDS: MAGIC MOUTHWASH SUSPENSION BTL SS SCH ×3 (00:21→08:18)
[2021-03-20] MEDS: VANCOMYCIN ORAL SOL 250MG/5ML ORAL SYRINGE PO SCH ×3 (00:21→12:11)
[2021-03-20] MEDS: SODIUM CHLORIDE 0.9% INJ 10 ML SYR IV SCH (05:35)
[2021-03-20 05:59] LABS: HEMATOCRIT 24.9 % (36.0-47.0); HEMOGLOBIN 8.3 g/dl (12.0-15.5); MEAN CORPUSCULAR HEMOGLOBIN 30.5 pg (27.0-33.0); MEAN CORPUSCULAR HGB CONC 33.3 g/dl (32.0-36.5); MEAN CORPUSCULAR VOLUME 91.5 fl (80.0-96.0); PLATELET COUNT, AUTOMATED 634 10^3/uL (150-450); RED BLOOD COUNT 2.72 10^6/uL (4.00-5.40); WHITE BLOOD COUNT 13.2 10^3/uL (4.0-10.0)
[2021-03-20 06:00] VITALS: BP 178/94
[2021-03-20 06:39] LABS: ALBUMIN 2.1 GM/DL (3.2-5.2); BILIRUBIN,TOTAL 5.2 MG/DL (0.2-1.0); CALCIUM LEVEL 9.2 MG/DL (8.5-10.1); CREATININE FOR GFR 3.74 MG/DL (0.55-1.30); TOTAL PROTEIN 7.8 GM/DL (6.4-8.2)
[2021-03-20] MEDS: HumaLOG INSULIN (NovoLOG) PER UNIT SC SCH ×2 (08:15→12:00)
[2021-03-20] MEDS: METOPROLOL TART 50 MG TAB PO SCH (08:16)
[2021-03-20] MEDS: ISOSORBIDE MON. (IMDUR) 30 MG XR TAB PO SCH (08:16)
[2021-03-20] MEDS: ASPIRIN 81MG ENTERIC TABLET PO SCH (08:16)
[2021-03-20] MEDS: cloNIDine 0.1MG TABLET PO SCH (08:16)
[2021-03-20] MEDS: CALCITRIOL 0.25 MCG CAP (S0169) PO SCH (08:16)
[2021-03-20] MEDS: LACTOBACILLUS ACIDOPHILUS CAP (BACID) PO SCH (08:16)
[2021-03-20 08:17] VITALS: BP 178/94
[2021-03-20] MEDS: (RENVELA) SEVELAMER **CARBONate** 800 MG TAB PO SCH ×2 (08:17→12:05)
[2021-03-20] MEDS: minoxidiL 2.5 MG TAB PO SCH (08:17)
[2021-03-20] MEDS ORDERED: RISATAB3 PO (09:24)
[2021-03-20] MEDS ORDERED: LOPR1TAB6 PO (09:24)
--- NOTE | 2021-03-20 11:07 | IPN ---
PROGRESS NOTE DATE: 03/20/2021 SUBJECTIVE: Patient was seen and examined, states a little sore in her foot, but has been improving. Denies other complaints. Vitals are reviewed. She remained afebrile. Labs are reviewed. White blood cell count 13.2. LOWER EXTREMITY EXAMINATION: Erythema and edema are improved. Plantar wound base is granular with some antibiotic beads noted. Dorsal incision is fully coapted. ASSESSMENT: This 35-year-old female status post second metatarsal head amputation. PLAN: Patient okay for discharged. Wound care orders written. Follow-up in office in one week.
--- NOTE | 2021-03-20 12:00 | IPN ---
NEPHROLOGY PROGRESS NOTE DATE: 03/20/2021 SUBJECTIVE: Patient was seen and examined at the bedside today morning. She is afebrile, hemodynamically stable. Today, patient is going to get her dialysis done and I was told that patient will be discharged after dialysis today. She still has a wound in the left leg. She would need to continue I.V. antibiotics during dialysis. OBJECTIVE: VITAL SIGNS: Temperature 97.9 degrees Fahrenheit, blood pressure 178/94, pulse 72, respiratory rate 18, saturating 95% on room air. INTAKE/OUTPUT: Ultrafiltration with hemodialysis was 3 liters yesterday. Weight in the bed scale is not available. PHYSICAL EXAMINATION: GENERAL: Patient is awake, alert, oriented x3, sitting up in the bed in no apparent distress. HEAD/NECK: Extraocular muscles intact. Pupils equally round and reactive to light. Mucous membranes are moist. Neck is supple. There is a tunneled hemodialysis catheter. CVS: S1, S2, regular rate. No edema of the bilateral lower extremities. RESPIRATORY: Chest is clear to auscultation bilaterally. Bilateral equal air entry. No rales or rhonchi. ABDOMEN: Soft, positive bowel sounds, nontender. No organomegaly. MUSCULOSKELETAL: Patient has an open wound on the plantar aspect of the left foot. 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 Power is 5/5 in all extremities. LAB REVIEW: CBC showed WBC 13.2, hemoglobin 8.3, platelets 634,000. BMP showed sodium 131, potassium 4, chloride 96, bicarb 25, BUN 16, creatinine 3.7. CURRENT INPATIENT MEDICATIONS: Patient's medications were all reviewed by myself. No significant change in the medications today as compared with yesterday. ASSESSMENT AND PLAN: 1. End-stage renal disease: Patient is getting daily dialysis for optimization of fluid status. She will be dialyzed today again in the afternoon. I would try to remove at least 3.5 kg of fluid as tolerated by her blood pressure. 2. Anemia secondary to end-stage renal disease and blood loss: She was given 1 unit of PRBC transfusion. Continue Aranesp. The rest of the anemia management will be done as an outpatient. 3. Left foot osteomyelitis and Staph Aureus bacteremia: Patient would continue to get I.V. Ancef 2 grams with each dialysis on Thursday and Thursday and 3 grams on Thursday until April 22, 2021. 4. C. diff colitis: Since patient is getting I.V. antibiotics, she would continue to get oral Vancomycin as well. 5. Hypertension: Patient is persistently hypertensive. Continue the fluid removal and current antihypertensive regimen. DISPOSITION: Patient is optimized to be discharged from nephrology standpoint. She will be followed up as an outpatient in the dialysis center.
--- NOTE | 2021-03-20 13:49 | DS.PDOC ---
Discharge Summary General Date of Admission March 08, 2021 at 17:00 Date of Discharge 03/20/2021 Attending Physician: IKER BELTRAN MD Specialist/Consultants Involve: DYAN CARLOS MD Specialist/Consultants Involve Dr. Alanna Krishnamurthy Discharge Summary PROCEDURES PERFORMED DURING STAY: I&D left foot wound, Left second metatarsal head excision, and irrigation and antibiotic bead placement of the left foot by Dr. Mondragon; MARINO by Dr. Jerez ADMITTING DIAGNOSES: Shortness of breath, unclear etiology Sepsis, unknown source Type 1 DM with peripheral neuropathy Hyperbilirubinemia with elevated Alk Phos Hypertensive urgency Chronic diabetic foot ulcer and osteomyelitis of the left foot ESRD on HD Pulmonary HTN Chronic Thrombocytosis Hx of C.diff Anemia of chronic disease Hyponatremia Anxiety DISCHARGE DIAGNOSES: Shortness of breath, resolved, 2/2 fluid overload from ESRD Sepsis 2/2 MSSA bactermia fround left foot osteomyelitis Type 1 DM with peripheral neuropathy Hyperbilirubinemia with elevated Alk Phos Hypertensive urgency Chronic diabetic foot ulcer and osteomyelitis of the left foot ESRD on HD Pulmonary HTN Chronic Thrombocytosis Recent C. diff infection, s/p PO vancomycin Anemia of chronic disease Anxiety COMPLICATIONS/CHIEF COMPLAINT: Left Foot Infection. HISTORY OF PRESENT ILLNESS: 35-year-old female with past medical history of end-stage renal disease on hemodialysis Thursday/Thursday/Thursday, insulin-dependent diabetes mellitus type 1, peripheral neuropathy, pulmonary hypertension, hypertension, history of C. difficile who presented to the ED with shortness of breath. She reports waking up the prior evening in the middle of the night very short of breath. She also reported chills and had increased weakness. Throughout the day she felt very thirsty and was drinking Gatorade. She also noticed she was making more urine than she typically does. She denies sick contacts or noncompliance with her medications. She was noted to have a fever while at an appointment that afternoon. She also noted a nonproductive cough at that time. In the ER temperature was 101.7, heart rate 91, lead pressure 181/193 systolic, 95% on 2 L nasal cannula. Chest x-ray was unremarkable. PICC line was placed due to poor peripheral access. She had abnormal bilirubin and ALP which were chronically elevated on prior lab work. She denied any abdominal symptoms. Her right chest port did not appear to be red swollen or tender. She had a left foot wound which was packed and appeared to be clean. She has peripheral neuropathy and denies any pain on exam. Due to the symptoms above and concern for infection, the patient was admitted for SIRS +, r/o source of infection, SOB 2/2 to unknown etiology. HOSPITAL COURSE: Patient was admitted to the hospital and started on IV antibiotics with IV vancomycin and cefepime for broad spectrum empiric coverage due to unknown source. She was also put on a probiotic due to history of c. difficile infection. She was noted to have a left foot wound which appeared to be clean, but CT of the foot revealed abscess with osteomyelitis of the second metatarsal. Dr. Mondragon was called and performed a bedside I&D of the abscess. Dr. Mondragon took the patient to the OR the following morning for excision of the second metatarsal head to treat the osteomyelitis. Dr. Mondragon performed and additional procedure thre days later for further irrigation and placement of antibiotic beads. Blood cultures were drawn on admission and resulted as positive for MSSA. Two wound cultures from the left foot also grew MSSA, confirming this as the most likely source of bacteremia. The patient was switched to IV nafcillin and then again changed to IV Ancef prior to discharge. She will continue on IV Ancef during HD sessions three days a week until stop date of 04/22/2021, 6 weeks after the first negative blood culture. She will follow up with Dr. Krishnamurthy regarding her bacteremia treatment. She will also follow up with Dr. Mondragon for post-operative care of her left foot. Due to the MSSA bacteremia, TTE was performed and negative for vegetations. Additionally, MARINO was performed by Dr. Jerez and was also negative for vegetations. Patient was noted to have elevated NTpro-BNP level and echocardiogram was negative for systolic or diastolic dysfunctions of the heart. The patient's elevated NTpro-BNP level can be attributed to ESRD. During this admission, the patient was noted to be hypertensive with SBP up to to 219/115. She was continued on her home antihypertensive regimen after her sepsis resolved. She additionally was started on metoprolol tartrate to help control her blood pressure. She received additional sessions of HD during her admission to remove additional fluid in hopes of better blood pressure control. The patient will be discharged on five antihypertensive medications and continue with HD three days a week outpatient. During this admission, the patient did have some diarrhea and tested positive for c. difficile. She was started on PO vancomycin and completed a 10 day course. Her diarrhea resolved quickly after being started on treatment. It is possible she is colonized with c. difficile. She will follow up outpatient with Dr. Krisnhamurthy and may benefit from Zinplava for recurrent c. difficile infection. During this admission, the patient was again noted to have persistently elevated alkaline phosphatase and bilirubin levels. Work up on prior admission includes MEEK, ANCA, anti-mitochondrial ab, ELIZABETH level, hepatitis panel, RUQ U/S, GGT level, and liver biopsy. This work up showed elevated ELIZABETH at 104 which make sarcoidosis part of the differential, but this was not confirmed on biopsy. Liver biopsy showed "benign liver parenchyma with dilated sinusoids, with perivenular/perisinusoidal fibrosis, suggestive of venous outflow obstruction. 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 The patient had extra sessions of HD during her admission to try to relieve some of this fluid overload. The case was discussed previously with Dr. Pedraza and the patient was scheduled for outpatient follow up, which she did not make it to due to subsequent re-admission to the hospital. During this admission, Dr. Krishnamurthy reached out to Dr. Cabrera to again discuss the case. Dr. Cabrera agreed with the likely diagnosis of congestive hepatopathy and recommended outpatient follow up. Liver doppler U/S was also ordered during this admission and was negative for portal vein thrombosis, although it did show some portal HTN. This finding would not explain the elevated bilirubin and alkaline phosphatase. DISCHARGE MEDICATIONS: Please see below. ALLERGIES: Please see below. PHYSICAL EXAMINATION ON DISCHARGE: VITAL SIGNS: Please see below. GENERAL: Alert, comfortable, in no acute distress HEENT: Normocephalic, atraumatic, moist mucous membranes NECK: Supple, trachea midline, no lymphadenopathy CARDIOVASCULAR: Regular rate and rhythm, normal S1 and S2. 3/6 systolic ejection murmur in the R upper sternal border. No rubs or gallops RESPIRATORY: Clear to auscultation bilaterally with equal air entry bilaterally. No wheezing, rhonchi, or rales. ABDOMEN: Soft, nontender, nondistended, bowel sounds present EXTREMITIES: No LE edema. Pulses 2/4 in bilateral upper and lower extremities SKIN: Permacath present in the right upper chest. PICC line present in the LUE. No surrounding erythema, warmth or swelling of either access point. Left foot with surgical stitches, covered in clean, dry bandage. No drainage noted. NEUROLOGIC: Alert and oriented x3 to person, place and time. No focal deficits appreciated PSYCHIATRIC: Mood and affect appropriate LABORATORY DATA: Please see below. IMAGING: (impressions per radiologist report) - US guided needle placement PICC line insertion left brachial vein with the tip ending in the SVC. - CXR Improved lung menjivar otherwise no significant change. - Foot CT Large ulceration in the plantar foot soft tissues with associated subcutaneous abscess. Septic joint with changes of osteomyelitis in the 2nd MTP joint. - CTA 1. Worsening ground-glass attenuation in both lungs may be due to pulmonary edema or air trapping in the setting of viral airways disease. 2. Cardiomegaly. 3. No pulmonary embolism. - CT abdomen/pelvis Improved lung bases as described above, otherwise, no significant change from the prior exam with findings as described above. - Abdominal US Gallbladder wall thickening with no evidence of intraluminal calculus. No biliary dilatation. Mild perihepatic free fluid. Mildly dilated patent main portal vein compatible with portal hypertension. No evidence of portal vein or hepatic vein thrombosis. Portal veins demonstrate Hepatopetal flow. PROGNOSIS: Fair ACTIVITY: As tolerated DIET: Consistent carb, 2g sodium restriction. 2000mL fluid restriction. DISCHARGE PLAN/DISPOSITION: Home, continue IV antibiotics during HD sessions 3x per week. DISCHARGE INSTRUCTIONS: Please follow up with your PCP in 7-10 days Please follow up with Dr. Mondragon in 1 week Please follow up with Dr. Krishnamurthy in 2 weeks Please follow up with Nephrology in 2 weeks. Please follow up with Gastroenterology. Please take all medications as prescribed. You will receive IV antibiotics at your hemodialysis sessions. If your symptoms return please call your PCP or return to the ED for further lucian luation. ITEMS TO FOLLOWUP ON ON OUTPATIENT: 1. Bacteremia, on IV Ancef with HD 2g Thursday, 2g Thursday, 3g Thursday, until 04/22/2021 2. C. difficile infection s/p PO vancomycin x10 days. May benefit from IV Zinplava. 3. Hypertension, started on PO metoprolol in addition to her other antihypertensive agents 4. Left foot osteomyelitis s/p left second metatarsal head excision, surgical follow up with Dr. Mondragon 5. Elevated bilirubin and alkaline phosphatase with work up suggestive of congestive hepatopathy. Further evaluation with GI outpatient. DISCHARGE CONDITION: Stable. TIME SPENT ON DISCHARGE: 35 minutes. Vital Signs/I&Os Vital Signs Date Time Temp Pulse Resp B/P (MAP) Pulse Ox O2 Delivery O2 Flow Rate FiO2 03/20/21 08:17 178/94 03/20/21 08:17 72 03/20/21 06:00 97.9 18 95 Room Air 03/15/21 08:00 2.0 I&O- Last 24 Hours up to 6 AM 03/20/21 06:00 Intake Total 1240 ml Output Total 3000 ml Balance -1760 ml Laboratory Data Labs 24H Laboratory Tests 2 03/19/21 11:27: Bedside Glucose (Misc Panel) 304H 03/19/21 16:51: Bedside Glucose (Misc Panel) 114H 03/19/21 20:03: Bedside Glucose (Misc Panel) 160H 03/20/21 05:47: Nucleated Red Blood Cells % (auto) 0.2H, Anion Gap 10, Glomerular Filtration Rate 18.0L, Calcium Level 9.2, Total Bilirubin 5.2H, Aspartate Amino Transf (AST/SGOT) 51H, Alanine Aminotransferase (ALT/SGPT) 13, Alkaline Phosphatase 942H, Total Protein 7.8, Albumin 2.1L, Albumin/Globulin Ratio 0.4L CBC/BMP Laboratory Tests 03/20/21 05:47 FSBS Laboratory Tests Test 03/19/21 11:27 03/19/21 16:51 03/19/21 20:03 Range/Units Bedside Glucose (Misc Panel) 304 114 160 70-105 MG/DL Microbiology Microbiology 03/14/21 Respiratory Virus Panel (PCR) (LINDA) - Final, Complete 03/13/21 Blood Culture - Final, Complete NO GROWTH AFTER 5 DAYS 03/12/21 Blood Culture - Final, Complete NO GROWTH AFTER 5 DAYS 03/11/21 Blood Culture - Final, Complete NO GROWTH AFTER 5 DAYS 03/10/21 Wound Culture - Final, Complete Staphylococcus Aureus 03/10/21 Anaerobic Culture - Final, Complete 03/10/21 Gram Stain - Final, Complete 03/10/21 Wound Culture - Final, Complete Staphylococcus Aureus Discharge Medications Scheduled Amlodipine Besylate (Amlodipine Besylate) 10 Mg Tablet, 10 MG PO DAILY, (Reported) Aspirin (Aspirin EC) 81 Mg Tablet.dr, 81 MG PO DAILY, (Reported) Calcitriol (Calcitriol) 0.25 Mcg Capsule, 0.25 MCG PO DAILY, (Reported) Carvedilol (Carvedilol) 25 Mg Tablet, 25 MG PO DAILY, (Reported) Clonidine HCl (Clonidine HCl) 0.3 Mg Tablet, 0.3 MG PO DAILY, (Reported) Ergocalciferol (Vitamin D2) (Vitamin D2) 50,000 Units Cap, 50,000 UNITS PO QWEEK, (Reported) THURSDAY Insulin Glargine,Hum.rec.anlog (Basaglar Kwikpen U-100) 100 Unit/1 Ml Insuln.pen, 5 UNIT SC QHS, (Reported) Insulin Human Lispro (Novolog) 100 Unit/1 Ml Vial, 1 DOSE SC AC, (Reported) PER SLIDING SCALE Isosorbide Mononitrate (Isosorbide Mononitrate ER) 30 Mg Tab.er.24h, 90 MG PO DAILY, (Reported) L.acidoph/L.bulg/B.bif/S.therm (Tonja-Bid Caplet) 1 Each Tablet, 1 TAB PO BIDWM, (Reported) L.acidoph/L.bulg/B.bif/S.therm (Tonja-Bid Caplet) 1 Each Tablet, 1 EA PO BIDWM Losartan Potassium (Losartan Potassium) 100 Mg Tablet, 100 MG PO QHS, (Reported) Metoprolol Tartrate (Lopressor) 50 Mg Tablet, 50 MG PO BID Minoxidil (Minoxidil) 2.5 Mg Tablet, 2.5 MG PO BID, (Reported) Sevelamer Carbonate (Sevelamer Carbonate) 800 Mg Tablet, 1,600 MG PO WM, (Reported) WITH MEALS Scheduled PRN Sevelamer Carbonate (Sevelamer Carbonate) 800 Mg Tablet, 800 MG PO BID PRN for SNACKS, (Reported) Allergies Coded Allergies: cinacalcet (Verified Allergy, Unknown, 11/25/20) latex (Verified Allergy, Unknown, 11/03/19) morphine (Verified Allergy, Unknown, 11/03/19) peanut (Verified Allergy, Unknown, 11/25/20) TAPE (Verified Adverse Reaction, Intermediate, IRRITATES SKIN, 11/03/19) USE PAPER TAPE ONL;Y GME ATTESTATION GME ATTESTATION My faculty preceptor for this patient encounter was physically present during the encounter and was fully available. All aspects of the patient interview, examination, medical decision making process, and medical care plan development were reviewed and approved by the faculty preceptor. The faculty preceptor is aware and concurs with the plan as stated in the body of this note and will attest to such by his/her cosignature. ATTENDING NOTE I, Iker Beltran, have independently examined this patient and performed my own physical exam, as well as reviewed the documentation and edited where necessary. I have discussed in detail with the resident / student the findings and plan of treatment as documented by the resident / student and edited their note. I agree with their findings and treatment plan and have edited their documentation. I will continue to follow the patient during this hospital stay. Time spent on discharge 35 minutes PARUL CLEVELAND D.O. March 20, 2021 11:21 IKER BELTRAN MD March 20, 2021 17:17
[2021-03-20] MEDS ORDERED: ceFAZolin SOD 2 GM in IV 1 EA IV ONE (16:00)
== END 2021-03-20 18:10 | disposition home or self-care (01) | DRG 853 ==
LOC: M ED 14:00 → EDBD 14:00 → M ED INP 17:00 → M PCU 18:44 → M MS5PR 03-15 21:10
PROVIDERS: ADMIT Internal Medicine; ATTEND Internal Medicine
PROC: 02HV33Z Insertion of Infusion Device into Superior Vena Cava, Percutaneous Approach (ICD-10-PCS; 2021-03-08)
PROC: 0Y6S0Z1 Detachment at Left 2nd Toe, High, Open Approach (ICD-10-PCS; principal; 2021-03-10 09:30)
PROC: 30233N1 Transfusion of Nonautologous Red Blood Cells into Peripheral Vein, Percutaneous Approach (ICD-10-PCS; 2021-03-11)
PROC: 3E0U029 Introduction of Other Anti-infective into Joints, Open Approach (ICD-10-PCS; 2021-03-13)
PROC: 5A1D70Z Performance of Urinary Filtration, Intermittent, Less than 6 Hours Per Day (ICD-10-PCS; 2021-03-15)
PROC: B246ZZ4 Ultrasonography of Right and Left Heart, Transesophageal (ICD-10-PCS; 2021-03-15)
DX: A41.01 Sepsis due to Methicillin susceptible Staphylococcus aureus (principal); N18.6 End stage renal disease; L02.612 Cutaneous abscess of left foot; M86.172 Other acute osteomyelitis, left ankle and foot; A04.71 Enterocolitis due to Clostridium difficile, recurrent; E87.1 Hypo-osmolality and hyponatremia; R17 Unspecified jaundice; E10.621 Type 1 diabetes mellitus with foot ulcer; F41.9 Anxiety disorder, unspecified; I16.0 Hypertensive urgency; E10.51 Type 1 diabetes mellitus with diabetic peripheral angiopathy without gangrene; I27.20 Pulmonary hypertension, unspecified; Z79.82 Long term (current) use of aspirin; Z79.899 Other long term (current) drug therapy; Z88.5 Allergy status to narcotic agent; Z88.8 Allergy status to other drugs, medicaments and biological substances; Z91.040 Latex allergy status; E10.3599 Type 1 diabetes mellitus with proliferative diabetic retinopathy without macular edema, unspecified eye; D69.6 Thrombocytopenia, unspecified; I08.3 Combined rheumatic disorders of mitral, aortic and tricuspid valves; D63.1 Anemia in chronic kidney disease; Z91.15 Patient's noncompliance with renal dialysis; I50.9 Heart failure, unspecified; L97.529 Non-pressure chronic ulcer of other part of left foot with unspecified severity; J39.2 Other diseases of pharynx; E10.65 Type 1 diabetes mellitus with hyperglycemia

== ENCOUNTER 2021-03-28 08:34 | Inpatient (IN) | payer MEDICARE, MEDICAID ==
[~2021-03-28] VITALS: Ht 175.3 cm; Wt 81.1 kg
[~2021-03-28 08:34] MED LIST changes: +CARV25TA PO; +CLON0.3T PO
--- NOTE | 2021-03-28 09:22 | REP ---
INDICATION: infection COMPARISON: CT dated 03/08/2021 TECHNIQUE: AP, lateral, bilateral oblique views left foot. FINDINGS: Old partial amputation at the metatarsal bone again noted and stable in appearance. Patient is status post recent partial amputation at the level of the 2nd metatarsal bone with overlying postsurgical changes. Remainder of the osseous structures are intact, essentially normal and stable. IMPRESSION: Postsurgical/partial amputation. <Electronically signed by Guy Garcia > 03/28/21 0918
[2021-03-28 09:35] LABS: BASO # 0.1 10^3/uL (0.0-0.2); BASO % 0.9 % (0.0-1.0); EOS # 0.4 10^3/uL (0.0-0.5); EOS % 3.4 % (0.0-3.0); HEMATOCRIT 23.6 % (36.0-47.0); HEMOGLOBIN 7.9 g/dl (12.0-15.5); LYMPH # 0.8 10^3/uL (1.5-5.0); LYMPH % 6.9 % (24.0-44.0); MEAN CORPUSCULAR HGB CONC 33.5 g/dl (32.0-36.5); MEAN CORPUSCULAR VOLUME 92.5 fl (80.0-96.0); MONO # 0.6 10^3/uL (0.0-0.8); MONO % 4.9 % (2.0-8.0); NEUTROPHILS # 9.9 10^3/uL (1.5-8.5); NEUTROPHILS % 83.5 % (36.0-66.0); PLATELET COUNT, AUTOMATED 612 10^3/uL (150-450); RED BLOOD COUNT 2.55 10^6/uL (4.00-5.40); WHITE BLOOD COUNT 11.8 10^3/uL (4.0-10.0)
[2021-03-28] MEDS ORDERED: HYDR-3910 PO (09:52)
--- NOTE | 2021-03-28 10:06 | REP ---
INDICATION: swelling/pain COMPARISON: None. TECHNIQUE: Oconnell scale and color Doppler evaluation using linear high frequency transducer. FINDINGS: Ultrasound examination of the left lower extremity deep venous structures from the common femoral vein through the calf veins including peroneal, anterior tibial and posterior tibial veins demonstrates normal compressibility flow and wave patterns in response to respiration and augmentation. The contralateral common femoral vein appears patent. There is no evidence for deep venous thrombosis. IMPRESSION: No evidence for deep venous thrombosis. <Electronically signed by Guy Garcia > 03/28/21 1002
[2021-03-28] MEDS ORDERED: cloNIDine 0.1MG TABLET PO ONE (10:15)
[2021-03-28 10:17] LABS: RSV AMPLIFICATION NEGATIVE (NEGATIVE)
[2021-03-28 10:20] LABS: ALBUMIN 2.4 GM/DL (3.2-5.2); ALT/SGPT 6 U/L (12-78); BILIRUBIN,DIRECT 6.2 MG/DL (0.0-0.2); BILIRUBIN,TOTAL 8.1 MG/DL (0.2-1.0); BLOOD UREA NITROGEN 13 MG/DL (7-18); CALCIUM LEVEL 9.7 MG/DL (8.5-10.1); CARBON DIOXIDE LEVEL 29 MEQ/L (21-32); CHLORIDE LEVEL 86 MEQ/L (98-107); CK-MB VALUE MASS < 1.0 NG/ML (<3.6); CPK CREATINE PHOSPHOKINASE 136 U/L (26-192); CREATININE FOR GFR 4.13 MG/DL (0.55-1.30); GLUCOSE, FASTING 449 MG/DL (70-100); LIPASE 199 U/L (73-393); MB/CK RELATIVE INDEX 0.74 (< OR =4); POTASSIUM SERUM 3.7 MEQ/L (3.5-5.1); SODIUM LEVEL 127 MEQ/L (136-145); TOTAL PROTEIN 8.6 GM/DL (6.4-8.2); TROPONIN I < 0.02 NG/ML (< 0.10)
[2021-03-28] MEDS ORDERED: METO100T5 PO (10:35)
[2021-03-28 11:15] LABS: C REACTIVE PROTEIN QUANTITATIV 3.94 MG/DL (0.00-0.30)
--- NOTE | 2021-03-28 11:22 | REP ---
INDICATION: ruq pain. COMPARISON: Comparison sonography March 16, 2021. This study showed 5 mm gallbladder wall thickening. Comparison CT study abdomen and pelvis March 09, 2021.. TECHNIQUE: Right upper quadrant sonography. FINDINGS: Scanning through the right upper quadrant of the abdomen demonstrates a normal sized, thick gallbladder without evidence of stone or polyp. Gallbladder wall measures 0.7 cm in thickness. Common bile duct is normal measuring 0.4 cm in greatest diameter. No focal liver lesion is seen. Liver size is enlarged, midclavicular sagittal dimension 20.3 cm. No pancreatic abnormality is observed. No right renal abnormality is seen. The right kidney measures 10.4 x 4.4 x 3.0 cm. There is minimal ascitic fluid adjacent to the liver. IMPRESSION: Persistent gallbladder wall thickening diffusely. No stone or polyp seen. Normal CBD. Minimal ascites. Hepatomegaly again noted.. <Electronically signed by Kip Rizzo > 03/28/21 [id number]
[2021-03-28 11:52] LABS: ERYTHROCYTE SEDIMENTATION RATE 127 mm/hr (0-20)
[2021-03-28] MEDS ORDERED: **hydrALAZINE HCL** 25 MG TAB PO ONE (12:20)
[2021-03-28] MEDS ORDERED: CEFTAROLINE FOSAMIL 600 MG in D5W MINI-BAG PLUS 50 ML IV SCH (13:45)
[2021-03-28] MEDS ORDERED: (RENVELA) SEVELAMER **CARBONate** 800 MG TAB PO PRN (13:50)
[2021-03-28] MEDS ORDERED: GLUCOSE 4GM CHEW TABLET PO PRN (13:55)
[2021-03-28] MEDS ORDERED: GLUCAGON INJ 1MG VIAL SC PRN (13:55)
[2021-03-28] MEDS ORDERED: DEXTROSE 50% 50 ML SYRINGE IV PRN (13:55)
[2021-03-28] MEDS ORDERED: ISOVUE-370 76% 100ML VIAL As Ordered ONE ×2 (14:06→20:55)
--- NOTE | 2021-03-28 15:15 | HPEPDOC ---
[facility] Medical History & Physical Date of Admission March 28, 2021 Date of Service: March 28, 2021 Attending Physician: SCOOTER BLUM MD History and Physical CHIEF COMPLAINT: L ft pain HISTORY OF PRESENT ILLNESS: Patient is a 35-year-old female with pMHx of ESRD (on HD MWF, can produce urine), IDDM1 (with diabetic foot ulcer & severe peripheral neuropathy), pulmonary HTN, HTN, history of C. difficile who was sent to ER by Dr. Mondragon (podiatry) today for L ft pain and swelling. To preface, patient had a recent hospital course from 03/08 to 03/20 at [facility] for SIRS 2/2 L ft osteomyelitis. Her L foot CT showed abscess with osteomyelitis of the second metatarsal. Dr. Mondragon was called and performed a bedside I&D of the abscess and subsequently took her to the OR on 03/10 for I&D with left second metatarsal head excision. She then underwent left foot irrigation and partial wound closure with insertion of antibiotic beads on 03/[address] Mondragon. She was started on IV Vanc and cefepime at first. Her BCxs and L foot wound cultures grew MSSA. She was then switched to IV nafcillin and ultimately IV ancef prior to discharge. Discharge plan was to continue IV ancef during HD sessions until 04/22 (6 weeks after first negative BCx). She also received workup for THADDEUS bacteremia which included TTE and MARINO that were negative for vegetation. After discharge, patient reported she had only 1 visit by [facility] without dressing change or education on wound care. Over the past week, she reported worsening L foot pain, especially on ambulation. She was evaluated by Dr. Mondragon today and subsequently sent to ED for further evaluation of her L foot pain. She noted brownish, green discharge and increased L ft swelling, but denied recent fever, chills, CP, SOB, N/V/D, and urinary symptoms. She also reported chronic unchanged RUQ pain that she previously received extensive workup for. She has not had a chance to see GI for follow up yet since her last discharge. Patient reported that she has been ad herent to her medication regimen, her dialysis schedule and her diet and fluid restrictions. PAST MEDICAL HISTORY: ESRD on HD MWF IDDM1 peripheral neuropathy proliferative retinopathy s/p photocoagulation Hx of DKA Pulm HTN (PASP 50s) Trace MVR Trace AVR Trace TVR Chronic Thrombocytosis HTN Hx of C.difff Siderosis PAST SURGICAL HISTORY: (C) section Bilateral fifth metatarsal head amputations to manage osteomyelitis / DM foot ulcers Brain surgery for a cyst Right AV Fistula placement Permacath placement in R chest SOCIAL HISTORY: Employment: Unemployed, on disability currently Tobacco use: Denied hx of tobacco use ETOH: Denied alcohol use Illicit drug use: Denied hx of IVDU and hx of illicit drug use. FAMILY HISTORY: Father: HTN, COPD Mother: HTN, DM2 Paternal grandmother: DM2 Maternal grandmother: DM2, breast cancer Maternal aunts: DM2 Maternal uncle: Lung cancer ALLERGIES: Please see below. REVIEW OF SYSTEMS: CONSTITUTIONAL: Denies chills, fever, weakness, fatigue, unexpected weight change, loss of appetite HEENT: Denies headaches, dizziness, vision changes, hearing changes or throat pain. CARDIOVASCULAR: Denies chest pain, palpitations, dyspnea on exertion, but noted increased L ft swelling RESPIRATORY: Denies wheezing, dyspnea, or hemoptysis, but noted some cough with no sputum GASTROINTESTINAL: Denies nausea, vomiting, diarrhea, constipation, melena, hematochezia, but noted abd pain GENITAOURINARY: Denies dysuria, hematuria, urinary frequency, incontinence or retention. SKIN: Denies skin changes, rash, lesions, jaundice, bruising MUSCULOSKELETAL: Denies weakness, but noted L ft pain with brownish green discharge. NEUROLOGICAL: Denies focal weakness, numbness, tingling, change in Speech HEMATOLOGICAL: Denies bruising, excessive bleeding, petechiae HOME MEDICATIONS: Please see below. PHYSICAL EXAMINATION: VITAL SIGNS: See below GENERAL APPEARANCE: Revealed 35 y/o F, alert & oriented x3, in no acute distress. HEENT Exam: Normocephalic and atraumatic, PERRL, conjunctiva & lids normal, EOMI, scleral icterus noted, mucous membr. moist/pink, pharynx normal, nares patent. NECK: Supple without lymphadenopathy, thyromegaly LUNGS: Clear to auscultation bilaterally with full breath sounds without rales, wheezing, and crackles. CARDIOVASCULAR: Regular rate and rhythm, normal S1 & S2 without gallops, murmurs, rubs ABDOMEN: Distended abd, RUQ tenderness on light palpation, RLQ and epigastric tenderness on deep palpation, bowel sounds present. Difficult to assess hepatomegaly due to pain and distention. No splenomegaly or masses. EXTREMITIES: 2+ pulses in all extremities. No clubbing, cyanosis. L ft exquisitely tender to even light touch with swelling without obvious redness or warmth. Moist, open ulceration with surrounding granulation tissues noted on plantar aspect of L foot. SKIN: Normal turgor and temperature. Skin hyperpigmentation on dorsal aspect of L ft. Trace B/L pitting edema noted. MUSCULOSKELETAL: Moving all extremities without tenderness except L ft. NEUROLOGICAL: Normal speech without signs of gross focal neurologic deficit. PSYCHIATRIC: Normal mood and affect LABORATORY DATA: See below. IMAGIN. L foot XR on 03/28/2021 reported as: FINDINGS: Old partial amputation at the metatarsal bone again noted and stable in appearance. Patient is status post recent partial amputation at the level of the 2nd metatarsal bone with overlying postsurgical changes. Remainder of the osseous structures a re intact, essentially normal and stable. IMPRESSION: Postsurgical/partial amputation. 2. LLE duplex US on 03/28/2021 reported as: FINDINGS: Ultrasound examination of the left lower extremity deep venous structures from the common femoral vein through the calf veins including peroneal, anterior tibial and posterior tibial veins demonstrates normal compressibility flow and wave patterns in response to respiration and augmentation. The contralateral common femoral vein appears patent. There is no evidence for deep venous thrombosis. IMPRESSION: No evidence for deep venous thrombosis. 3. Gallbladder US on 03/28/2021 reported as: FINDINGS: Scanning through the right upper quadrant of the abdomen demonstrates a normal sized, thick gallbladder without evidence of stone or polyp. Gallbladder wall measures 0.7 cm in thickness. Common bile duct is normal measuring 0.4 cm in greatest breana meter. No focal liver lesion is seen. Liver size is enlarged, midclavicular sagittal dimension 20.3 cm. No pancreatic abnormality is observed. No right renal abnormality is seen. The right kidney measures 10.4 x 4.4 x 3.0 cm. There is minimal ascitic fluid adjacent to the liver. IMPRESSION: Persistent gallbladder wall thickening diffusely. No stone or polyp seen. Normal CBD. Minimal ascites. Hepatomegaly again noted.. MICROBIOLOGY: Please see below. ASSESSMENT: Patient is a 35-year-old female with pMHx of ESRD (on HD MWF, can produce urine), IDDM1 (with diabetic foot ulcer & severe peripheral neuropathy), pulmonary HTN, HTN, history of C. difficile who was sent to ER by Dr. Mondragon (podiatry) today for L ft pain and swelling. Pt's L ft pain without associated fever and chills suspicious for early localized abscess. CT L ft with contrast ordered and started on ceftaroline. PLAN: # L ft pain and swelling - L ft XR unremarkable, however pain on presentation suspicious for underlying abscess - L ft CT with contrast to r/o - Patient has been receiving IV Ancef for MSSA bacteremia and L ft osteomyelitis from previous admission, has not missed any dialysis session. - Given concern for recurrent infection despite IV ancef, cover with IV ceftaroline day #1 - no current concern for sepsis, monitor on telemetry - Patient express interest in NH/ rehab when discharge is appropriate, ordered PT/OT/PFS - F/u wound and blood cultures - Wound care orders in place # Type 1 DM with severe peripheral neuropathy - last HbA1c 12/2020 10.3 - consistent carb diet with SSI ACHS. Hypoglycemic protocol. - Cont Home levemir 5 units HS # Abnormal Liver profile - Mixed conjugated and unconjugated hyperbilirubinemia with elevated alkaline phosphatase. - Has had extensive workup in previous admissions that included negative MEEK, ANCA, and anti-mitochondrial ab. Hepatitis panel was negative in 2019; repeat negative in 12/2020. Liver doppler negative for portal vein thrombosis, does show show portal hypertension. - Liver pathology from [facility] 02/08/21: Benign liver parenchyma with dilated sinusoids, with perivenular/perisinusoidal fibrosis, suggestive of venous outflow obstruction. The iron stain shows increased iron, mostly in Kupfer cells, consistent with moderate siderosis. - Case has been discussed previously with Dr. Pedraza who suggested outpatient GI follow up. - In last admission, case discussed with Dr. 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 - HIDA scan on prior admission suggests advanced cholestasis without obstruction. Repeat RUQ US this admission shows persistent gallbladder wall thickening diffusely. This could also explain the abnormal labs. - Cont to trend liver profile. 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 # Pulm HTN (PASP 50s) - continue home meds # Anemia likely 2/2 to ESRD - H/H stable (baseline between -) - trend CBC daily # Chronic Thrombocytosis - trend CBC daily # Hyponatremia likely 2/2 ESRD and hyperglycemia - continue HD per nephrology, appears at baseline # Hx of C.diff - Cont probiotics # Anxiety - continue Hydroxyzine Code status: Full code DVT Prophylaxis: SCDs/GABY in anticipation of potential procedure for now, will continue Heparin once imaging rules out need for potential procedure Diet: Sodium restricted, consistent carbohydrate, fluid restriction Baseline ambulatory status: Ambulatory without assistance DISPOSITION: Admitted inpatient to med/surg. PFS involved for discharge planning, patient expressed interest in discharging to NH/rehab when appropriate. Vital Signs Vital Signs Date Time Temp Pulse Resp B/P (MAP) Pulse Ox O2 Delivery O2 Flow Rate FiO2 03/28/21 13:00 217/102 (140) 03/28/21 12:50 74 03/28/21 08:35 97.6 22 Room Air Laboratory Data Labs 24H Laboratory Tests 2 03/28/21 08:48: Immature Granulocyte % (Auto) 0.4, Neutrophils (%) (Auto) 83.5H, Lymphocytes (%) (Auto) 6.9L, Monocytes (%) (Auto) 4.9, Eosinophils (%) (Auto) 3.4H, Basophils (%) (Auto) 0.9, Neutrophils # (Auto) 9.9H, Lymphocytes # (Auto) 0.8L, Monocytes # (Auto) 0.6, Eosinophils # (Auto) 0.4, Basophils # (Auto) 0.1, Nucleated Red Blood Cells % (auto) 0.0, Erythrocyte Sedimentation Rate 127H, Anion Gap 12, Glomerular Filtration Rate 16.0L, Lactic Acid Level 0.9, Calcium Level 9.7, Total Bilirubin 8.1H, Direct Bilirubin 6.2H, Aspartate Amino Transf (AST/SGOT) 62H, Alanine Aminotransferase (ALT/SGPT) 6L, Alkaline Phosphatase 1150H, Total Creatine Kinase 136, Creatine Kinase MB < 1.0, Creatine Kinase MB Relative Index 0.74, Troponin I < 0.02, C-Reactive Protein, Quantitative 3.94H, Total Protein 8.6H, Albumin 2.4L, Albumin/Globulin Ratio 0.4L, Lipase 199 03/28/21 09:04: Coronavirus (COVID-19)(PCR) NEGATIVE, Influenza Type A (RT-PCR) NEGATIVE, Influenza Type B (RT-PCR) NEGATIVE, Respiratory Syncytial Virus (PCR) NEGATIVE CBC/BMP Laboratory Tests 03/28/21 08:48 Microbiology Microbiology 03/28/21 Blood Culture, Received Pending 03/28/21 Blood Culture, Received Pending Home Medications Scheduled Amlodipine Besylate (Amlodipine Besylate) 10 Mg Tablet, 10 MG PO DAILY Aspirin (Aspirin EC) 81 Mg Tablet.dr, 81 MG PO DAILY Calcitriol (Calcitriol) 0.25 Mcg Capsule, 0.25 MCG PO 3XW THU/THU/THU Carvedilol (Carvedilol) 25 Mg Tablet, 25 MG PO DAILY Clonidine HCl (Clonidine HCl) 0.3 Mg Tablet, 0.3 MG PO DAILY Ergocalciferol (Vitamin D2) (Vitamin D2) 50,000 Units Cap, 50,000 UNITS PO QWEEK THURSDAY Hydralazine HCl (Hydralazine HCl) 25 Mg Tablet, 25 MG PO TID Insulin Glargine,Hum.rec.anlog (Basaglar Kwikpen U-100) 100 Unit/1 Ml Insuln.pen, 5 UNIT SC QHS Insulin Human Lispro (Novolog) 100 Unit/1 Ml Vial, 1 DOSE SC AC PER SLIDING SCALE Isosorbide Mononitrate (Isosorbide Mononitrate ER) 30 Mg Tab.er.24h, 90 MG PO DAILY L.acidoph/L.bulg/B.bif/S.therm (Tonja-Bid Caplet) 1 Each Tablet, 1 TAB PO BIDWM Losartan Potassium (Losartan Potassium) 100 Mg Tablet, 100 MG PO QHS Metoprolol Tartrate (Metoprolol Tartrate) 100 Mg Tablet, 100 MG PO BID DOSE DECREASED TO 50MG BID, PT HAS NOT PICKED UP NEW RX YET, HAS BEEN TAKING OLD RX Minoxidil (Minoxidil) 2.5 Mg Tablet, 2.5 MG PO BID Sevelamer Carbonate (Sevelamer Carbonate) 800 Mg Tablet, 1,600 MG PO WM WITH MEALS Scheduled PRN Sevelamer Carbonate (Sevelamer Carbonate) 800 Mg Tablet, 800 MG PO BID PRN for SNACKS Allergies Coded Allergies: cinacalcet (Verified Allergy, Unknown, 11/25/20) latex (Verified Allergy, Unknown, 11/03/19) peanut (Verified Allergy, Unknown, 11/25/20) TAPE (Verified Adverse Reaction, Intermediate, IRRITATES SKIN, 11/03/19) USE PAPER TAPE ONL;Y morphine (Verified Adverse Reaction, Mild, MILD PRURITIS, 03/28/21) per PATIENT 03/28/21 A-FIB/CHADSVASC A-FIB History Current/History of A-Fib/PAF?: No GME ATTESTATION GME ATTESTATION My faculty preceptor for this patient encounter was physically present during the encounter and was fully available. All aspects of the patient interview, examination, medical decision making process, and medical care plan development were reviewed and approved by the faculty preceptor. The faculty preceptor is aware and concurs with the plan as stated in the body of this note and will attest to such by his/her cosignature. ATTENDING NOTE I, Scooter Blum MD, have independently examined this patient and performed my own physical exam, as well as reviewed the documentation and edited where necessary. I have discussed in detail with the resident / student the findings and plan of treatment as documented by the resident / student and edited their note. I agree with their findings and treatment plan and have edited their documentation. WALLY BEARD OMS-3 March 28, 2021 15:15 PARUL CLEVELAND D.O. March 28, 2021 15:31 SCOOTER BLUM MD Apr 02, 2021 09:50
[2021-03-28] MEDS: **hydrALAZINE HCL** 25 MG TAB PO SCH ×2 (15:50→19:39)
[2021-03-28] MEDS: LACTOBACILLUS ACIDOPHILUS CAP (BACID) PO SCH (18:00)
[2021-03-28] MEDS: (RENVELA) SEVELAMER **CARBONate** 800 MG TAB PO SCH (18:00)
[2021-03-28 18:39] VITALS: BP 198/98
[2021-03-28] MEDS: HumaLOG INSULIN (NovoLOG) PER UNIT SC SCH ×2 (18:58→22:14)
[2021-03-28] MEDS: LOSARTAN 50MG TABLET PO SCH (19:40)
[2021-03-28] MEDS: METOPROLOL TARTRATE 100 MG TAB PO SCH (19:40)
[2021-03-28] MEDS: minoxidiL 2.5 MG TAB PO SCH (19:40)
[2021-03-28] MEDS: CEFTAROLINE FOSAMIL 200 MG in D5W 50 ML IV SCH (19:41)
--- NOTE | 2021-03-28 19:51 | ECGEPIP ---
[facility] - ED Test Date: 2021-03-28 Pat Name: KATELYN COLLINS Department: Room: - Gender: Female [employer]: : [id number] Requested By: EVGENY Metzger Order Number: [id number] Reading MD: Evgeny Garza Measurements Intervals Clare Rate: 77 P: 59 AR: 146 QRS: 56 QRSD: 66 T: 192 QT: 428 QTc: 484 Interpretive Statements Normal sinus rhythm Possible Left atrial enlargement ST & T wave abnormality, consider inferolateral ischemia Prolonged QT Similar to tracing done 03-08-21 Electronically Signed on 03-28-2021 19:51:36 EDT by Evgeny Garza
[2021-03-28 20:00] VITALS: BP 178/110
[2021-03-28] MEDS: ACETAMINOPHEN TAB 650MG DOSE (2X325MG) PO PRN (20:41)
--- NOTE | 2021-03-28 21:49 | REPVR ---
PROCEDURE INFORMATION: Exam: CT Left Lower Extremity With Contrast, Foot Exam date and time: 03/28/2021 9:16 PM Age: 35 years old Clinical indication: Swelling, leg or foot; Additional info: Pain/swelling ? abscess TECHNIQUE: Imaging protocol: CT of the Left lower extremity with intravenous contrast was performed. Exam focused on the foot. Radiation optimization: All CT scans at this facility use at least one of these dose optimization techniques: automated exposure control; mA and/or kV adjustment per patient size (includes targeted exams where dose is matched to clinical indication); or iterative reconstruction. Contrast material: ISOVUE 370; Contrast volume: 100 ml; Contrast route: INTRAVENOUS (IV); COMPARISON: CT FOOT WITH CONTRAST LEFT 03/08/2021 7:34 PM FINDINGS: Bones/joints: Status post subtotal resection of the 5th toe at the mid to distal metatarsal. Distal mid and proximal phalanges remain in situ. Status post resection of the distal metatarsal and proximal phalanx of the 2nd toe. Soft tissues: Marked soft tissue edema demonstrated in the ankle and foot. Large air containing ulceration demonstrated in the interspace between the 1st and 2nd toes extending dorsally without obvious communication to the cutaneous surface. Bony a metallic densities demonstrated within the wound consistent with foreign bodies. Findings may represent an abscess and/or postsurgical change. IMPRESSION: 1. Large air containing ulceration demonstrated in the interspace between the 1st and 2nd toes extending dorsally without obvious communication to the cutaneous surface. Bony a metallic densities demonstrated within the wound consistent with foreign bodies. Findings may represent an abscess and/or postsurgical change. 2. Status post subtotal resection of the 5th toe at the mid to distal metatarsal. Distal mid and proximal phalanges remain in situ. 3. Status post resection of the distal metatarsal and proximal phalanx of the 2nd toe. Electronically signed by: Young Hopkins On 03/28/2021 21:49:27 PM
[2021-03-28] MEDS: LEVEMIR (INSULIN DETEMIR) 1 UNITS/0.01ML SC SCH (22:13)
[2021-03-28] MEDS: MORPHINE 2 MG/ML 1ML VIAL (J2270) IV PRN (22:14)
[2021-03-28 22:20] VITALS: BP 186/100
[2021-03-29] VITALS (12 sets, daily range): BP systolic 142–203; BP diastolic 71–108
[2021-03-29] MEDS: CEFTAROLINE FOSAMIL 200 MG in D5W 50 ML IV SCH ×2 (05:23→17:50)
[2021-03-29 05:49] LABS: BASO # 0.1 10^3/uL (0.0-0.2); EOS # 0.5 10^3/uL (0.0-0.5); EOS % 4.9 % (0.0-3.0); HEMATOCRIT 22.9 % (36.0-47.0); HEMOGLOBIN 7.7 g/dl (12.0-15.5); LYMPH # 1.3 10^3/uL (1.5-5.0); LYMPH % 11.8 % (24.0-44.0); MEAN CORPUSCULAR HGB CONC 33.6 g/dl (32.0-36.5); MEAN CORPUSCULAR VOLUME 92.3 fl (80.0-96.0); MONO # 0.5 10^3/uL (0.0-0.8); MONO % 4.7 % (2.0-8.0); NEUTROPHILS # 8.5 10^3/uL (1.5-8.5); PLATELET COUNT, AUTOMATED 557 10^3/uL (150-450); RED BLOOD COUNT 2.48 10^6/uL (4.00-5.40); WHITE BLOOD COUNT 11.1 10^3/uL (4.0-10.0)
[2021-03-29 06:00] LABS: ALBUMIN 2.1 GM/DL (3.2-5.2); ALT/SGPT < 6 U/L (12-78); BILIRUBIN,TOTAL 6.9 MG/DL (0.2-1.0); BLOOD UREA NITROGEN 17 MG/DL (7-18); CALCIUM LEVEL 9.2 MG/DL (8.5-10.1); CARBON DIOXIDE LEVEL 30 MEQ/L (21-32); CHLORIDE LEVEL 90 MEQ/L (98-107); CREATININE FOR GFR 5.21 MG/DL (0.55-1.30); GLOMERULAR FILTRATION RATE 12.3 (>60); GLUCOSE, FASTING 106 MG/DL (70-100); POTASSIUM SERUM 3.4 MEQ/L (3.5-5.1); SODIUM LEVEL 131 MEQ/L (136-145); TOTAL PROTEIN 7.7 GM/DL (6.4-8.2)
[2021-03-29] MEDS: HumaLOG INSULIN (NovoLOG) PER UNIT SC SCH ×4 (07:30→21:00)
[2021-03-29] MEDS: LACTOBACILLUS ACIDOPHILUS CAP (BACID) PO SCH ×2 (08:00→17:50)
[2021-03-29] MEDS: (RENVELA) SEVELAMER **CARBONate** 800 MG TAB PO SCH ×3 (08:00→17:50)
[2021-03-29] MEDS: HEPARIN SOD (PORCINE) 5000UNITS/ML 1ML VIAL/SYRINGE SQ SCH ×2 (09:00→21:00)
[2021-03-29] MEDS: METOPROLOL TARTRATE 100 MG TAB PO SCH ×2 (09:11→21:47)
[2021-03-29] MEDS: cloNIDine 0.1MG TABLET PO SCH (09:11)
[2021-03-29] MEDS: ASPIRIN 81MG ENTERIC TABLET PO SCH (09:11)
[2021-03-29] MEDS: CALCITRIOL 0.25 MCG CAP (S0169) PO SCH (09:11)
[2021-03-29] MEDS: CARVedilol 12.5 MG TAB PO SCH (09:11)
[2021-03-29] MEDS: minoxidiL 2.5 MG TAB PO SCH ×2 (09:12→21:47)
[2021-03-29] MEDS: ISOSORBIDE MON. (IMDUR) 30 MG XR TAB PO SCH (09:12)
[2021-03-29] MEDS: **hydrALAZINE HCL** 25 MG TAB PO SCH ×3 (09:13→21:48)
[2021-03-29] MEDS ORDERED: LIDOCAINE 1% MDV 20ML VIAL As Ordered ONE (09:54)
--- NOTE | 2021-03-29 11:27 | IPNPDOC ---
Text Note Date of Service The patient was seen on 03/29/21. NOTE SUBJECTIVE: Patient was seen and examined this morning at bedside. She states the pain in her foot has improved. She continues to complain of RUQ pain which she states feels worse this morning. OBJECTIVE: VITAL SIGNS: See below GENERAL: Alert, comfortable, in no acute distress HEENT: Normocephalic, atraumatic, scleral icterus noted,, moist mucous membranes NECK: Supple, trachea midline, no lymphadenopathy CARDIOVASCULAR: Regular rate and rhythm, normal S1 and S2. No murmurs, rubs, or gallops RESPIRATORY: Clear to auscultation bilaterally with equal air entry bilaterally. No wheezing, rhonchi, or rales. ABDOMEN: Distended, soft, with RUQ tenderness on light palpation, RLQ and epigastric tenderness on deep palpation, bowel sounds present. EXTREMITIES: Skin hyperpigmentation on dorsal aspect of L foot. Trace bilateraly pitting edema noted. Pulses 2+/4 in bilateral upper and lower extremities NEUROLOGIC: Alert and oriented x3 to person, place and time. No focal deficits appreciated PSYCHIATRIC: Mood and affect appropriate ASSESSMENT/PLAN: 35-year-old female with pMHx of ESRD, IDDM1 with diabetic foot ulcer & severe peripheral neuropathy, pulmonary HTN, HTN, history of C. difficile who was sent to ER by Dr. Mondragon for L ft pain and swelling. CT L ft with contrast ordered and patient started on ceftaroline. # L ft pain and swelling - L ft XR unremarkable, however pain on presentation suspicious for underlying abscess - L ft CT with contrast to r/o - Patient has been receiving IV Ancef for MSSA bacteremia and L ft osteomyelitis from previous admission, has not missed any dialysis session. - Given concern for recurrent infection despite IV ancef, cover with IV ceftaroline day #2 - no current concern for sepsis, monitor on telemetry - Patient express interest in NH/ rehab when discharge is appropriate, ordered PT/OT/PFS - F/u wound and blood cultures - Wound care orders in place per Dr. Mondragon - Discussed case with Dr. Mondragon today. He recommended continuing antibiotics with broad coverage for the next couple of day. If clinically the pain is worsening again, she may need further debridement. Dr. hunt/general surgery may be available to call as Dr. Mondragon is currently out of town. # Type 1 DM with severe peripheral neuropathy - last HbA1c 12/2020 10.3 - consistent carb diet with SSI ACHS. Hypoglycemic protocol. - Cont Home levemir 5 units HS # Abnormal Liver profile - Mixed conjugated and unconjugated hyperbilirubinemia with elevated alkaline phosphatase. - Has had extensive workup in previous admissions that included negative MEEK, ANCA, and anti-mitochondrial ab. Hepatitis panel was negative in 2019; repeat negative in 12/2020. Liver doppler negative for portal vein thrombosis, does show show portal hypertension. - Liver pathology from [facility] 02/08/21: Benign liver parenchyma with dilated sinusoids, with perivenular/perisinusoidal fibrosis, suggestive of venous outflow obstruction. The iron stain shows increased iron, mostly in Kupfer cells, consistent with moderate siderosis. - Case has been discussed previously with Dr. Pedraza who suggested outpatient GI follow up. - In last admission, case discussed with Dr. 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 - HIDA scan on prior admission suggests advanced cholestasis without obstruction. Repeat RUQ US this admission shows persistent gallbladder wall thickening diffusely. This could also explain the abnormal labs. - Cont to trend liver profile. 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 # Pulm HTN (PASP 50s) - continue home meds # Anemia likely 2/2 to ESRD - H/H stable (baseline between 8-9) - trend CBC daily # Chronic Thrombocytosis - trend CBC daily # Hyponatremia likely 2/2 ESRD and hyperglycemia - continue HD per nephrology, appears at baseline # Hx of C.diff - Cont probiotics # Anxiety - continue Hydroxyzine DVT Prophylaxis: sc heparin DISPOSITION: Admitted inpatient to med/surg. PFS involved for discharge planning, patient expressed interest in discharging to NH/rehab if appropriate when medically stable. VS,Fishbone, I+O VS, Fishbone, I+O Laboratory Tests 03/29/21 05:19 Vital Signs Date Time Temp Pulse Resp B/P (MAP) Pulse Ox O2 Delivery O2 Flow Rate FiO2 03/29/21 08:13 98.0 75 16 182/108 (132) 94 Room Air I&O- Last 24 Hours up to 6 AM 03/29/21 06:00 Intake Total 50 ml Balance 50 ml GME ATTESTATION GME ATTESTATION My faculty preceptor for this patient encounter was physically present during the encounter and was fully available. All aspects of the patient interview, examination, medical decision making process, and medical care plan development were reviewed and approved by the faculty preceptor. The faculty preceptor is aware and concurs with the plan as stated in the body of this note and will attest to such by his/her cosignature. ATTENDING NOTE I, Rosemary Blum MD, have independently examined this patient and performed my own physical exam, as well as reviewed the documentation and edited where necessary. I have discussed in detail with the resident / student the findings and plan of treatment as documented by the resident / student and edited their note. I agree with their findings and treatment plan and have edited their documentation. PARUL CLEVELAND D.O. March 29, 2021 11:27 ROSEMARY BLUM MD Apr 02, 2021 09:51
[2021-03-29] MEDS ORDERED: DARBEPOETIN 100 MCG/0.5 ML *DIALYSIS* SYRINGE (J0882) IV SCH (11:55)
[2021-03-29] MEDS ORDERED: SODIUM CHLORIDE 0.9% 1000ML IV PRN (12:00)
[2021-03-29 12:59] LABS: FERRITIN 2944 NG/ML (8-252); IRON (FE) 87 UG/DL (50-170); PERCENT SATURATION 35.5 % (13.2-45.0); TOTAL IRON BINDING CAPACITY 245 UG/DL (250-450)
[2021-03-29] MEDS: SCOPOLAMINE 1MG TRANSDERMAL PATCH TOP SCH (17:53)
[2021-03-29] MEDS ORDERED: SODIUM CHLORIDE 0.9% INJ 10 ML SYR IV PRN (18:10)
[2021-03-29] MEDS: LEVEMIR (INSULIN DETEMIR) 1 UNITS/0.01ML SC SCH (21:00)
[2021-03-29] MEDS: LOSARTAN 50MG TABLET PO SCH (21:47)
[2021-03-29] MEDS ORDERED: diphenhydrAMINE 25MG CAP PO PRN (21:50)
[2021-03-29] MEDS: MORPHINE 2 MG/ML 1ML VIAL (J2270) IV PRN (22:08)
[2021-03-30] VITALS (8 sets, daily range): BP systolic 102–225; BP diastolic 52–101
[2021-03-30] MEDS: CEFTAROLINE FOSAMIL 200 MG in D5W 50 ML IV SCH ×2 (05:33→17:42)
[2021-03-30] MEDS: SODIUM CHLORIDE 0.9% INJ 10 ML SYR IV SCH ×2 (05:33→17:42)
[2021-03-30 05:53] LABS: BASO # 0.1 10^3/uL (0.0-0.2); BASO % 1.1 % (0.0-1.0); EOS # 0.5 10^3/uL (0.0-0.5); EOS % 4.3 % (0.0-3.0); HEMATOCRIT 25.5 % (36.0-47.0); HEMOGLOBIN 8.2 g/dl (12.0-15.5); LYMPH # 0.9 10^3/uL (1.5-5.0); LYMPH % 8.8 % (24.0-44.0); MEAN CORPUSCULAR HEMOGLOBIN 30.9 pg (27.0-33.0); MEAN CORPUSCULAR HGB CONC 32.2 g/dl (32.0-36.5); MEAN CORPUSCULAR VOLUME 96.2 fl (80.0-96.0); MONO # 0.6 10^3/uL (0.0-0.8); MONO % 5.3 % (2.0-8.0); NEUTROPHILS # 8.3 10^3/uL (1.5-8.5); NEUTROPHILS % 79.6 % (36.0-66.0); PLATELET COUNT, AUTOMATED 551 10^3/uL (150-450); RED BLOOD COUNT 2.65 10^6/uL (4.00-5.40); WHITE BLOOD COUNT 10.4 10^3/uL (4.0-10.0)
[2021-03-30 06:26] LABS: ALBUMIN 2.1 GM/DL (3.2-5.2); ALT/SGPT < 6 U/L (12-78); BILIRUBIN,TOTAL 6.5 MG/DL (0.2-1.0); BLOOD UREA NITROGEN 11 MG/DL (7-18); CALCIUM LEVEL 9.4 MG/DL (8.5-10.1); CARBON DIOXIDE LEVEL 23 MEQ/L (21-32); CHLORIDE LEVEL 96 MEQ/L (98-107); CREATININE FOR GFR 3.83 MG/DL (0.55-1.30); GLOMERULAR FILTRATION RATE 17.5 (>60); GLUCOSE, FASTING 159 MG/DL (70-100); POTASSIUM SERUM 3.7 MEQ/L (3.5-5.1); SODIUM LEVEL 133 MEQ/L (136-145); TOTAL PROTEIN 7.6 GM/DL (6.4-8.2)
[2021-03-30] MEDS: HumaLOG INSULIN (NovoLOG) PER UNIT SC SCH ×4 (07:30→20:18)
[2021-03-30] MEDS: HEPARIN SOD (PORCINE) 5000UNITS/ML 1ML VIAL/SYRINGE SQ SCH ×2 (08:11→20:30)
[2021-03-30] MEDS: METOPROLOL TARTRATE 100 MG TAB PO SCH ×2 (08:23→20:24)
[2021-03-30] MEDS: minoxidiL 2.5 MG TAB PO SCH ×2 (08:24→20:25)
[2021-03-30] MEDS: (RENVELA) SEVELAMER **CARBONate** 800 MG TAB PO SCH ×3 (08:24→18:07)
[2021-03-30] MEDS: ONDANSETRON 4MG/2ML VIAL IV PRN (08:24)
[2021-03-30] MEDS: **hydrALAZINE HCL** 25 MG TAB PO SCH ×3 (08:24→20:26)
[2021-03-30] MEDS: ISOSORBIDE MON. (IMDUR) 30 MG XR TAB PO SCH (08:24)
[2021-03-30] MEDS: cloNIDine 0.1MG TABLET PO SCH (08:25)
[2021-03-30] MEDS: LACTOBACILLUS ACIDOPHILUS CAP (BACID) PO SCH ×2 (08:25→17:42)
[2021-03-30] MEDS: ASPIRIN 81MG ENTERIC TABLET PO SCH (08:25)
[2021-03-30] MEDS: CARVedilol 12.5 MG TAB PO SCH (08:25)
[2021-03-30] MEDS: PERCOCET 5MG/325MG TAB PO PRN ×2 (08:26→20:27)
--- NOTE | 2021-03-30 09:20 | REP ---
INDICATION: no IV access. COMPARISON: None. TECHNIQUE: The procedure was performed under the direct supervision of Dr. Rizzo. The risks and benefits of the procedure were explained to the patient and informed consent was obtained. The left brachial vein was localized using ultrasound guidance. The skin was prepped and draped in a sterile fashion. 2% lidocaine was used as a local anesthetic. Using ultrasound guidance the brachial vein was cannulated and a 0.018 guidewire was inserted and advanced to the SVC using fluoroscopic guidance, and last image hold technology. The needle was removed and a 5.5 American dilator and peel-away sheath was inserted over the guide wire. A 5.5 American dual lumen catheter was cut to length of 42 cm. The dilator was removed and the catheter was inserted over the guide wire with the tip ending in the SVC. The peel-away sheath was removed and the catheter was flushed with heparinized saline as per Hospital protocol. The catheter was affixed to the skin and a sterile dressing was applied. The patient tolerated the procedure well and there were no immediate complications. 0.2 minutes of fluoro time was utilized for this procedure. FINDINGS: None IMPRESSION: PICC line insertion left brachial vein with the tip ending in the SVC. <Electronically signed by Fawad Fernando > 03/29/21 8702 <Electronically signed by Kip Rizzo > 03/30/21 [id number]
--- NOTE | 2021-03-30 10:07 | IPNPDOC ---
Date Seen The patient was seen on 03/30/21. Progress Note SUBJECTIVE: Patient was seen and examined this morning. Overnight the patient did state that she has some pain in her right thigh. This morning she also continues to state that she has pain in that area as well. She stated this pain is not new and has actually been going on for a few months. She stated that she previously fell on that side. Patient stated the pain is a little worse today. She does continue to have right upper quadrant abdominal pain which once again has been a chronic ongoing issue. She states that her left foot is not painful. OBJECTIVE PHYSICAL EXAMINATION: VITAL SIGNS: Please see below. GENERAL APPEARANCE: Awake, alert, and oriented. Appears in no acute distress. Do es appear to have pain HEENT: Atraumatic, normocephalic. Scleral icterus present. Trachea is midline. Mucous membranes are pink and moist CARDIOVASCULAR: Normal S1, S2. Regular rate and rhythm. No clicks, rubs, or murmurs LUNGS: Clear vesicular breath sounds bilaterally. No wheezes, rhonchi, or rales ABDOMEN: Soft but distended abdomen. There is right upper quadrant tenderness with no rebound tenderness or guarding. There are bowel sounds present. EXTREMITIES: Left foot is currently bandaged. There is no lower extremity swelling. There is pain and tenderness of the right thigh, particularly overlying the quadriceps. There is no obvious swelling or discoloration. NEUROLOGICAL: No focal neurological deficits PSYCHIATRIC: Mood and affect appear appropriate LABORATORY DATA, IMAGING STUDIES, MICROBIOLOGY: Please see below. DVT prophylaxis ordered?: Heparin ASSESSMENT AND PLAN: Patient is a 35-year-old female with a past medical history significant for, end-stage renal disease without anuria on hemodialysis Thursday, Thursday, Thursday, insulin dependent diabetes mellitus type 1 complicated by severe peripheral neuropathy and diabetic foot ulcers, pulmonary hypertension, hypertension, history of C. difficile colitis, hepatobiliary disease of unknown etiology, recent MSSA bacteremia who presented to the [facility] emergency department with increasing left foot pain after incision and drainage as well as partial amputation of her left foot. PROBLEMS: 1. Left foot pain and swelling -Patient recently had an incision and drainage of a left foot wound with a left second metatarsal head excision, irrigation and antibiotic bead placement by Dr. Mondragon. Additionally, she had MSSA bacteremia. She was previously discharged and undergoing treatment with Ancef during her dialysis sessions. She had presented with worsening left foot pain and swelling. -CT of the left foot demonstrated large air-containing ulceration in the interspace treatment first and second toes extending dorsally without obvious Indication to the cutaneous surface as well as bony metallic densities demonstrated within the lumen consistent with foreign bodies. -Results of the CT scan were discussed with Dr. Mondragon yesterday. It independently reviewed the films as well, as the patient's pain was improving. There is no need for further debridement. Patient is recommended be continued on antibiotics. The foreign bodies demonstrated on CT scan are likely antibiotic beads. -Patient's pain worsens. Dr. Bledsoe, or Gen. surgery would have to be consulted as Dr. Mondragon is currently out of town -Patients foot pain is minimal today -Currently on Ceftaroline. Will continue. -Wound and Blood cultures negative for growth -Continue wound care per Dr. Mondragon 2. MSSA bacteremia -Patient was diagnosed with MSSA bacteremia at her previous hospitalization. She had been getting IV Ancef with dialysis. She is currently on Ceftaroline -To complete treatment for MSSA bacteremia, She will need to be continued on antibiotics until 04/22. 3. Right thigh pain -Patient has right thigh pain this morning. She states that she had fallen a month or so ago and has had pain in that area since. She states that today and over the night it got worse. On examination there is tenderness overlying the anterior thigh. There is no obvious swelling or discoloration. She did have an ultrasound of the left leg, on admission, during that ultrasound, they did look at the contralateral or right common femoral vein, which did not show a DVT. However, she did not have any further imaging to evaluate the right lower extremity. -Unclear what the etiology of her pain is. It could simply be muscle strain. She does have full equal pulses in bilateral upper and lower extremities. Additionally, her limbs are all warm. She has however, refused her heparin. Additionally, she does have a history of thrombocytosis and therefore could consider a DVT. Although her physical exam findings do not suggest this. -Will order an ultrasound of the right lower extremity to include the proximal veins of the leg. -Patient does have morphine ordered for pain. However, she states that morphine makes her very itchy. She was previously on Percocet and stated that worked well for her pain. We'll stop her morphine and order Percocet. 3. Type 1 diabetes mellitus with severe peripheral neuropathy -Last A1c in December 2020 was 10.3 -Continue consistent carbohydrate diet with sliding scale insulin -Levemir 5 units at night. 4. Abnormal liver profile -Patient has had an abnormal liver profile which is demonstrated mixed conjugated unconjugated hyperbilirubinemia with elevated alkaline phosphatase. S he had previous been evaluated with an extensive workup on the resident service, which included MEEK, ANCA, mitochondrial antibodies, hepatitis panel, liver ultrasound and MRCP, all which did not show any specific pathology to explain the etiology of her hepatobiliary disease. -She did receive a liver biopsy with fine-needle aspiration on 02/08/2021 which demonstrated benign liver parenchyma with dilated sinusoids suggestive of venous outflow obstruction. At the time it was suggested to be congestive hepatopathy. Patient does have a history of non-compliance with dialysis. However, after multiple dialysis sessions and fluid removal, she continued to have hyperbilirubinemia and right upper quadrant pain. -Results of been discussed with multiple gastroenterologists including Dr. Harley and Dr. Cabrera , both of which suggested follow-up outpatient. -She did have a HIDA scan on her prior admission, which suggested advanced cholestasis without obstruction. Her repeat right upper quadrant ultrasound on this admission demonstrated persistent gallbladder wall thickening diffusely. -Could consider a chronic gallbladder etiology for her elevated liver enzymes and right upper quadrant pain -Will continue to trend liver profile. Ultimately patient will need to follow-up outpatient with gastroenterology for further evaluation. However, this is been complicated as the patient has frequent readmissions due to her other multiple comorbid medical conditions. 5., Hypertension -Likely mostly secondary to her renal disease. -Continue Lopressor, imdur, Catapres, Norvasc, Cozaar, hydralazine 6. End-stage renal disease on hemodialysis Thursday, Thursday, Thursday -Nephrology consulted for management hemodialysis while inpatient -Continue Sevelamer 7. Pulmonary hypertension -Pulmonary arterial systolic pressure of 50 -Volume management per nephrology with hemodialysis 8. Anemia likely secondary to end-stage renal disease -Hemoglobin and hematocrit are stable 9. Chronic thrombocytosis -Trending CBC daily 10. Hyponatremia, likely secondary to end-stage renal disease and hyperglycemia -Continue with hemodialysis per nephrology. Patient's sodium is at baseline 11. History of C. difficile -Continue probiotics while on antibiotics. 12. Anxiety -Continue hydroxyzine 13. DVT prophylaxis -Heparin subcutaneous DISPOSITION: Pending clinical improvement. Patient is homeless and will need to work with PFS for discharge planning. After discharge, she will need to continue her treatment for MSSA bacteremia as her end of treatment date is 04/22/2021. GME ATTESTATION My faculty preceptor for this patient encounter was physically present during the encounter and was fully available. All aspects of the patient interview, examination, medical decision making process, and medical care plan development were reviewed and approved by the faculty preceptor. The faculty preceptor is aware and concurs with the plan as stated in the body of this note and will attest to such by his/her cosignature. ATTENDING NOTE I personally examined the patient, reviewed the studies and discussed the plan with the resident physician as detailed above. VS, I&O, 24H, Fishbone Vital Signs/I&O Vital Signs Date Time Temp Pulse Resp B/P (MAP) Pulse Ox O2 Delivery O2 Flow Rate FiO2 03/30/21 08:56 18 03/30/21 08:23 72 200/84 03/30/21 07:25 97.1 99 Room Air 03/29/21 10:46 2.0 I&O- Last 24 Hours up to 6 AM 03/30/21 06:00 Intake Total 900 ml Output Total 1600 ml Balance -700 ml Laboratory Data 24H LABS Laboratory Tests 2 03/29/21 11:26: Bedside Glucose (Misc Panel) 145H 03/29/21 17:44: Bedside Glucose (Misc Panel) 119H 03/29/21 20:42: Bedside Glucose (Misc Panel) 117H 03/30/21 05:40: Immature Granulocyte % (Auto) 0.9, Neutrophils (%) (Auto) 79.6H, Lymphocytes (%) (Auto) 8.8L, Monocytes (%) (Auto) 5.3, Eosinophils (%) (Auto) 4.3H, Basophils (%) (Auto) 1.1H, Neutrophils # (Auto) 8.3, Lymphocytes # (Auto) 0.9L, Monocytes # (Auto) 0.6, Eosinophils # (Auto) 0.5, Basophils # (Auto) 0.1, Nucleated Red Blood Cells % (auto) 0.2H, Anion Gap 14, Glomerular Filtration Rate 17.5L, Calcium Level 9.4, Total Bilirubin 6.5H, Aspartate Amino Transf (AST/SGOT) 41H, Alanine Aminotransferase (ALT/SGPT) < 6L, Alkaline Phosphatase 864H, Total Protein 7.6, Albumin 2.1L, Albumin/Globulin Ratio 0.4L CBC/BMP Laboratory Tests 03/30/21 05:40 Microbiology Microbiology 03/28/21 Gram Stain - Final, Complete 03/28/21 Wound Culture - Final, Complete 03/28/21 Blood Culture - Preliminary, Resulted No Growth after 48 hours. All Specime... 03/28/21 Blood Culture - Preliminary, Resulted No Growth after 48 hours. All Specime... AMANDA SHIRLEY DO March 30, 2021 10:07 KRISTI PANDA MD March 31, 2021 07:57
--- NOTE | 2021-03-30 10:29 | REP ---
INDICATION: Right thigh pain COMPARISON: None. TECHNIQUE: Oconnell scale and color Doppler evaluation using linear high frequency transducer. FINDINGS: Ultrasound examination of the right lower extremity deep venous structures from the common femoral vein through the calf/ankle to include the peroneal, and tibial veins demonstrates normal compressibility flow and wave patterns in response to respiration and augmentation. There is no evidence for deep venous thrombosis. Contralateral CFV is patent and normal. IMPRESSION: No evidence for deep venous thrombosis. <Electronically signed by Guy Garcia > 03/30/21 1021
--- NOTE | 2021-03-30 10:39 | CR ---
CONSULTATION DATE: 03/29/2021 REQUESTING PHYSICIAN: Evgeny Garza MD CONSULTING PHYSICIAN: Kitty Bates DO REASON FOR CONSULTATION: Management of end-stage renal disease on hemodialysis. CHIEF COMPLAINT: Nausea, right-sided abdominal pain and left foot pain. HISTORY OF PRESENT ILLNESS: Narcisa is well known to me. She is a 35-year-old female with a past medical history of end-stage renal disease on hemodialysis on a Thursday, Thursday, Thursday schedule, type 1 diabetes mellitus with diabetic nephropathy, diabetic foot ulcer, diabetic neuropathy, pulmonary hypertension, systemic hypertension, chronic thrombocytosis, recent history of transaminitis and recent history of liver biopsy and other comorbid conditions mentioned below. The patient is frequently admitted to the hospital. She comes this time to the emergency room yesterday with complaint of nausea, vomiting, poor appetite, right-sided abdominal pain and worsening of her chronic left foot pain and trouble with ambulation. Dr. Mondragon, her pipe organ technician, directed her to the emergency room. The patient has been compliant with dialysis. She was seen and examined today at the bedside. She is concerned about yellowing of her eyes, darkening of her skin and her generalized malaise and poor appetite. She is also significantly anemic and is due for dialysis today. PAST MEDICAL HISTORY: 1. End-stage renal disease on hemodialysis. 2. Type 1 diabetes mellitus, poorly controlled. 3. Diabetic neuropathy. 4. Diabetic nephropathy. 5. Diabetic retinopathy. 6. History of diabetic ketoacidosis. 7. Secondary hyperparathyroidism of renal origin. 8. Anemia of chronic renal failure. 9. Pulmonary hypertension. 10. Chronic thrombocytosis. 11. Transaminitis. 12. Systemic hypertension. 13. History of C. difficile. 14. Diabetic foot ulcer. 15. Moderate tricuspid regurgitation. PAST SURGICAL HISTORY: 1. section. 2. Bilateral fifth metatarsal head amputation. 3. Brain surgery for a cyst. 4. Right AV fistula. 5. Permacath placement. ALLERGIES: TAPE, CINACALCET, LATEX, MORPHINE, PEANUT. FAMILY HISTORY: Significant for diabetes, hypertension and congestive heart failure. PERSONAL AND SOCIAL HISTORY: She is single. She is currently living in a fdc. She denies alcohol, drug or tobacco use. HOME MEDICATIONS: 1. Amlodipine 10 mg p.o. daily. 2. Aspirin 81 mg p.o. daily. 3. Calcitriol 0.25 mg p.o. Thursday, Thursday, Thursday. 4. Clonidine 0.3 mg p.o. daily. 5. Vitamin D2 50,000 units p.o. q.weekly. 6. Hydralazine 25 mg p.o. t.i.d. 7. Insulin isosorbide mononitrate 30 mg p.o. daily. 8. Bacid one tab p.o. b.i.d. with meals. 9. Losartan 100 mg p.o. q.h.s. 10. Metoprolol 100 mg p.o. b.i.d. 11. Minoxidil 2.5 mg p.o. b.i.d. 12. Renvela 800 mg with snacks and 1600 mg p.o. with meals. REVIEW OF SYSTEMS: Constitutional: She reports generalized weakness and fatigue and malaise. HEENT: She denies visual changes but she reports new scleral icterus. Denies odynophagia. Cardiac: She denies leg swelling. She denies chest pain or palpitations. Respiratory: She denies dyspnea and hemoptysis. Gastrointestinal: She reports nausea, vomiting, poor appetite and right-sided abdominal pain. Genitourinary: Denies dysuria or hematuria. Skin: Reports darkening of the skin and yellowing of the eyes. Musculoskeletal: She reports left foot pain and localized left foot swelling. She denies any other arthralgias. Neurologic: She denies seizure or syncope. Hematologic: She reports anemia and thrombocytosis. Endocrine: She reports diabetes and it is poorly controlled and she reports secondary hyperparathyroidism. Psychiatric: She reports depression. The remainder of review of systems is negative or as per HPI. PHYSICAL EXAMINATION: Vital signs: Temperature 97.2, pulse 76, respiratory rate 16, blood pressure 142/71, saturating 96% on room air. Goal dialysis fluid removal today is 1.5 liters. General: Patient is seen earlier this morning at the bedside and later in the afternoon receiving dialysis. She is awake, alert, oriented x3 and in no apparent distress. Extraocular muscles are intact. There is scleral icterus. Tongue is moist. Neck is supple. There is a tunneled Permacath in the right chest wall which is presently in use. Heart sounds are regular, S-1, S-2. There is localized left foot edema but no other pitting edema of the legs. Lungs are clear to auscultation bilaterally, no crackle or rale. Abdomen: Soft. There is tenderness on the right side but no rebound tenderness and no guarding. Extremities show left foot in dressing and localized left foot swelling but there is no pitting edema of the legs. The fistula in the right arm is not patent, not mature. Neurologic: She is oriented x3 and at baseline mentation. No focal deficit. LABORATORY DATA: Sodium 131, potassium 3.4, bicarbonate 30, BUN 17, creatinine 5.2. Iron studies are pending. Ferritin is 3000, alk phos 1150 yesterday, 968 today, albumin 2.1, hemoglobin 7.7, white count 11.1, platelets 557. Blood cultures are drawn and pending. Vascular ultrasound of the left lower extremity is negative for DVT. Foot x-ray of the left foot is showing partial amputation and postsurgical changes. Gallbladder ultrasound shows persistent gallbladder wall thickening without any stone or polyp. There is hepatomegaly incidentally seen. INPATIENT MEDICATIONS: 1. Ceftaroline 200 mg IV b.i.d. 2. Tylenol p.r.n. 3. Amlodipine 10 mg p.o. daily. 4. Aspirin 81 mg p.o. daily. 5. Calcitriol 0.25 mcg p.o. Thursday, Thursday, Thursday. 6. Coreg 25 mg p.o. daily. 7. Clonidine 0.3 mg p.o. daily. 8. Aranesp is order with dialysis 100 mcg 9. Benadryl p.r.n. 10. Heparin 5000 units subcu q.12 hourly. 11. Hydralazine 25 mg p.o. three times a day. 12. Insulin. 13. Imdur 90 mg p.o. daily. 14. Bacid 1 each p.o. b.i.d. with meals. 15. Losartan 100 mg p.o. q.h.s. 16. Metoprolol 100 mg p.o. b.i.d. 17. Minoxidil 2.5 mg p.o. b.i.d. 18. Percocet p.r.n. 19. Scopolamine 1 mg topical q.72 hour. 20. Renvela 1600 mg p.o. with meals. PROBLEMS: 1. End-stage renal disease on hemodialysis on Thursday, Thursday, Thursday. She is being dialyzed today. I am going to remove just 1.5 liter fluid which is a low goal for her but she has been nauseous and has had poor appetite recently. There is no significant pitting edema on exam. I am going to transfuse 1 unit of packed red blood cells with dialysis today. 2. Anemia of chronic renal failure and chronic inflammation. Iron stores were sent and returned back acceptable with transferrin saturation of 35%. Her ferritin is almost 3000. Chronic inflammation is definitely predisposing to her anemia. I am transfusing one unit of blood today and Aranesp is ordered as well. 3. Hypertension. Blood pressures are poorly controlled. She tells me she was unable to keep down her meds at home. She is receiving Zofran for nausea now. I see she is on both Carvedilol and metoprolol. I am stopping the carvedilol. She also continues on amlodipine, clonidine, Imdur, hydralazine, Losartan and Minoxidil. Her blood pressures are improving and we will see how they are after dialysis. 4. Left foot wound. She had CT scan of the left foot. Results are noted. She is following up with Dr. Mondragon. Antibiotics are as per the primary team. She has mild leukocytosis. Her cultures are sent and pending, wound care orders per podiatry. 5. Elevated alkaline phosphatase. She has had a recent abnormal liver profile and elevated alk phos and transaminitis. She had a liver biopsy several weeks ago. She has a persistent gallbladder wall thickening on right upper quadrant ultrasound. Management is as per primary team. She is receiving Zofran for nausea. Her alk phos looks like it is downtrending. I suggest GI evaluation. 6. Hypokalemia. She is going to be dialyzed with a 3.0 mEq potassium bath.
[2021-03-30] MEDS: LEVEMIR (INSULIN DETEMIR) 1 UNITS/0.01ML SC SCH (20:26)
[2021-03-30] MEDS: LOSARTAN 50MG TABLET PO SCH (20:26)
--- NOTE | 2021-03-30 20:50 | IPN ---
PROGRESS NOTE DATE: 03/30/2021 SUBJECTIVE: Ms. Mireles is seen this morning on her bedside. She is sleepy at present. I was able to wake her up, however, she fell asleep right away. She is not feeling too good. She had an ultrasound earlier of her right lower extremity, which was negative for DVT. Patient was dialyzed yesterday and she tolerated her dialysis well. PHYSICAL EXAMINATION: VITALS: Temperature 97.7 degrees Fahrenheit, heart rate 66 per minute, respiratory rate 18 per minute, blood pressure 120/56 mmHg and oxygen saturation 99% on room air. HEENT: Head is atraumatic. Neck is supple and JVD not abnormally elevated. Hemodialysis cath is intact on right upper chest. LUNGS: Slightly diminished breath sounds at the bases. HEART: Sounds are regular. ABDOMEN: Full. Right upper quadrant tenderness and full is quite prominent. Bowel sounds are normal. EXTREMITIES: Without any cyanosis or clubbing. LABORATORY STUDIES: Today's labs show WBC 10.4, hemoglobin 8.2, hematocrit 25.5, platelets 551,000. Sodium 133, potassium 3.7, BUN 11 and creatinine 3.83. Glucose 159 and calcium 9.4. Bilirubin is down to 6.5 and alkaline phosphatase is down to 864. Total protein 7.6 and albumin 2.1. PROBLEMS: 1. End-stage renal disease: Patient was dialyzed yesterday and she will bed scheduled for next dialysis on Thursday. At this point, there is no emergent indication for dialysis today. 2. Hypertension: Blood pressure control has improved since admission as she is taking her medications now. She has been chronically noncompliant with medications at home. 3. Anemia: Her anemia improved with transfusion of 1 unit of packed RBCs. We will need to monitor closely as she does have history of recurrent anemia requiring transfusions. 4. Osteomyelitis: She has a history of osteomyelitis of her left foot. She had a CAT scan done on March 28. She already has a subtotal resection of her fifth toe and also her second toe. CAT scan did show large air containing ulceration in the interspace between the first and second toe extending grossly. Bony and metallic densities demonstrated within the wound consistent with foreign bodies. She has had wound debridement with Dr. Mondragon previously. She remains on Ceftaroline at present. 5. Jaundice: This is a chronic issue and has been investigated previously. Nephrology service has recommended GI evaluation. Her liver biopsy was inconclusive.
[2021-03-31] VITALS (8 sets, daily range): BP systolic 95–179; BP diastolic 52–76
[2021-03-31] MEDS: CEFTAROLINE FOSAMIL 200 MG in D5W 50 ML IV SCH ×2 (05:03→17:55)
[2021-03-31 05:23] LABS: BASO # 0.1 10^3/uL (0.0-0.2); EOS # 0.5 10^3/uL (0.0-0.5); EOS % 5.9 % (0.0-3.0); HEMATOCRIT 25.1 % (36.0-47.0); HEMOGLOBIN 8.1 g/dl (12.0-15.5); LYMPH # 1.2 10^3/uL (1.5-5.0); LYMPH % 13.5 % (24.0-44.0); MEAN CORPUSCULAR HEMOGLOBIN 31.8 pg (27.0-33.0); MEAN CORPUSCULAR HGB CONC 32.3 g/dl (32.0-36.5); MEAN CORPUSCULAR VOLUME 98.4 fl (80.0-96.0); MONO # 0.7 10^3/uL (0.0-0.8); MONO % 7.5 % (2.0-8.0); NEUTROPHILS # 6.4 10^3/uL (1.5-8.5); NEUTROPHILS % 71.3 % (36.0-66.0); PLATELET COUNT, AUTOMATED 547 10^3/uL (150-450); RED BLOOD COUNT 2.55 10^6/uL (4.00-5.40); WHITE BLOOD COUNT 8.9 10^3/uL (4.0-10.0)
[2021-03-31 06:00] LABS: ALBUMIN 2.2 GM/DL (3.2-5.2); ALT/SGPT < 6 U/L (12-78); BILIRUBIN,TOTAL 5.7 MG/DL (0.2-1.0); BLOOD UREA NITROGEN 18 MG/DL (7-18); CALCIUM LEVEL 9.1 MG/DL (8.5-10.1); CARBON DIOXIDE LEVEL 26 MEQ/L (21-32); CHLORIDE LEVEL 95 MEQ/L (98-107); CREATININE FOR GFR 5.31 MG/DL (0.55-1.30); GLUCOSE, FASTING 94 MG/DL (70-100); POTASSIUM SERUM 4.1 MEQ/L (3.5-5.1); SODIUM LEVEL 133 MEQ/L (136-145); TOTAL PROTEIN 7.4 GM/DL (6.4-8.2)
[2021-03-31] MEDS: SODIUM CHLORIDE 0.9% INJ 10 ML SYR IV SCH ×2 (06:39→17:56)
[2021-03-31] MEDS: HumaLOG INSULIN (NovoLOG) PER UNIT SC SCH ×4 (07:05→20:18)
[2021-03-31] MEDS: cloNIDine 0.1MG TABLET PO SCH (08:35)
[2021-03-31] MEDS: ASPIRIN 81MG ENTERIC TABLET PO SCH (08:35)
[2021-03-31] MEDS: LACTOBACILLUS ACIDOPHILUS CAP (BACID) PO SCH ×2 (08:35→17:55)
[2021-03-31] MEDS: ISOSORBIDE MON. (IMDUR) 30 MG XR TAB PO SCH (08:35)
[2021-03-31] MEDS: METOPROLOL TARTRATE 100 MG TAB PO SCH ×2 (08:35→20:23)
[2021-03-31] MEDS: **hydrALAZINE HCL** 25 MG TAB PO SCH ×3 (08:36→20:17)
[2021-03-31] MEDS: HEPARIN SOD (PORCINE) 5000UNITS/ML 1ML VIAL/SYRINGE SQ SCH ×2 (08:36→20:24)
[2021-03-31] MEDS: (RENVELA) SEVELAMER **CARBONate** 800 MG TAB PO SCH ×3 (08:36→17:55)
[2021-03-31] MEDS: minoxidiL 2.5 MG TAB PO SCH ×2 (08:36→20:18)
[2021-03-31] MEDS: ONDANSETRON 4MG/2ML VIAL IV PRN (09:08)
[2021-03-31] MEDS: PERCOCET 5MG/325MG TAB PO PRN ×2 (10:12→20:23)
--- NOTE | 2021-03-31 11:00 | IPNPDOC ---
Text Note Date of Service The patient was seen on 03/31/21. NOTE SUBJECTIVE: -No acyute events overnight -R leg pain has improved but is still present OBJECTIVE PHYSICAL EXAMINATION: VITAL SIGNS: Please see below. GENERAL APPEARANCE: Awake, alert, and oriented. Appears in no acute distress. HEENT: Atraumatic, normocephalic. Scleral icterus present. Trachea is midline. Mucous membranes are pink and moist CARDIOVASCULAR: Normal S1, S2. Regular rate and rhythm. No clicks, rubs, or murmurs LUNGS: Clear vesicular breath sounds bilaterally. No wheezes, rhonchi, or rales ABDOMEN: Soft but distended abdomen. There is right upper quadrant tenderness with no rebound tenderness or guarding. There are bowel sounds present. EXTREMITIES: Left foot is currently bandaged. There is no lower extremity swelling. There is pain and tenderness of the right thigh, particularly overlying the quadriceps. There is no obvious swelling or discoloration. NEUROLOGICAL: No focal neurological deficits PSYCHIATRIC: Mood and affect appear appropriate LABORATORY DATA: WBC 8.9 Hgb 8.1 Platelets 547 Na 133 K 4.1 Cr 5.3 ASSESSMENT: 35-year-old AA woman with a history of end-stage renal disease without anuria on hemodialysis Thursday, Thursday, Thursday, insulin dependent diabetes mellitus type 1 complicated by severe peripheral neuropathy and diabe tic foot ulcers, pulmonary hypertension, hypertension, history of C. difficile colitis, hepatobiliary disease of unknown etiology, recent MSSA bacteremia who presented to the [facility] emergency department with increasing left foot pain after incision and drainage as well as partial amputation of her left foot. PROBLEMS: 1. Left foot pain and swelling -Patient recently had an incision and drainage of a left foot wound with a left second metatarsal head excision, irrigation and antibiotic bead placement by Dr. Mondragon. Additionally, she had MSSA bacteremia. She was previously dis charged and undergoing treatment with Ancef during her dialysis sessions. She had presented with worsening left foot pain and swelling. -CT of the left foot demonstrated large air-containing ulceration in the interspace treatment first and second toes extending dorsally without obvious Indication to the cutaneous surface as well as bony metallic densities demonstrated within the lumen consistent with foreign bodies. -Results of the CT scan were discussed with Dr. Mondragon yesterday. It independently reviewed the films as well, as the patient's pain was improving. There is no need for further debridement. Patient is recommended be continued on antibiotics. The foreign bodies demonstrated on CT scan are likely antibiotic beads. -Patient's pain worsens. Dr. Bledsoe, or Gen. surgery would have to be consulted as Dr. Mondragon is currently out of town until 04/03/2021 -Patients foot pain is stable today -Continue empiric Ceftaroline. -Wound and Blood cultures negative for growth -Continue wound care per Dr. Mondragon 2. MSSA bacteremia -Patient was diagnosed with MSSA bacteremia at her previous hospitalization. She had been getting IV Ancef with dialysis. She is currently on Ceftaroline -To complete treatment for MSSA bacteremia, She will need to be continued on antibiotics until 04/22. 3. Right thigh pain: improved now -US negative for DVT -Full equal pulses in bilateral upper and lower extremities, warm. -Percocet PRN for pain. 3. Type 1 diabetes mellitus with severe peripheral neuropathy -Last A1c in December 2020 was 10.3 -Continue consistent carbohydrate diet with sliding scale insulin -Levemir 5 units at night. 4. Abnormal liver profile -Patient has had an abnormal liver profile which is demonstrated mixed conjugated unconjugated hyperbilirubinemia with elevated alkaline phosphatase. She had previous been evaluated with an extensive workup on the resident service, which included MEEK, ANCA, mitochondrial antibodies, hepatitis panel, liver ultrasound and MRCP, all which did not show any specific pathology to explain the etiology of her hepatobiliary disease. -She did receive a liver biopsy with fine-needle aspiration on 02/08/2021 which demonstrated benign liver parenchyma with dilated sinusoids suggestive of venous outflow obstruction. At the time it was suggested to be congestive hepatopathy. Patient does have a history of non-compliance with dialysis. However, after multiple dialysis sessions and fluid removal, she continued to have hyperbilirubinemia and right upper quadrant pain. -Results of been discussed with multiple gastroenterologists including Dr. Harley and Dr. Cabrera , both of which suggested follow-up outpatient. -She did have a HIDA scan on her prior admission, which suggested advanced cholestasis without obstruction. Her repeat right upper quadrant ultrasound on this admission demonstrated persistent gallbladder wall thickening diffusely. -Could consider a chronic gallbladder etiology for her elevated liver enzymes and right upper quadrant pain -Will continue to trend liver profile. Ultimately patient will need to follow-up outpatient with gastroenterology for further evaluation. However, this is been complicated as the patient has frequent readmissions due to her other multiple comorbid medical conditions. 5., Hypertension -Likely mostly secondary to her renal disease. -Continue Lopressor, imdur, Catapres, Norvasc, Cozaar, hydralazine 6. End-stage renal disease on hemodialysis Thursday, Thursday, Thursday -Nephrology consulted for management hemodialysis while inpatient -Continue Sevelamer 7. Pulmonary hypertension -Pulmonary arterial systolic pressure of 50 -Volume management per nephrology with hemodialysis 8. Anemia likely secondary to end-stage renal disease -Hemoglobin and hematocrit are stable 9. Chronic thrombocytosis -Trending CBC daily 10. Hyponatremia, likely secondary to end-stage renal disease and hyperglycemia -Continue with hemodialysis per nephrology. Patient's sodium is at baseline 11. History of C. difficile -Continue probiotics while on antibiotics. 12. Anxiety -Continue hydroxyzine 13. DVT prophylaxis -Heparin subcutaneous DISPOSITION: Pending clinical improvement. Patient is homeless and will need to work with [facility] for discharge planning. After discharge, she will need to continue her treatment for MSSA bacteremia as her end of treatment date is 04/22/2021. VS,Fishbone, I+O VS, Fishbone, I+O Laboratory Tests 03/31/21 05:10 Vital Signs Date Time Temp Pulse Resp B/P (MAP) Pulse Ox O2 Delivery O2 Flow Rate FiO2 03/31/21 08:35 65 179/76 03/31/21 07:36 97.0 8 94 Room Air 03/29/21 10:46 2.0 I&O- Last 24 Hours up to 6 AM 03/31/21 06:00 Intake Total 1008 ml Balance 1008 ml KRISTI PANDA MD March 31, 2021 08:54
--- NOTE | 2021-03-31 13:04 | IPN ---
PROGRESS NOTE DATE: 03/31/2021 SUBJECTIVE: Ms. Mireles is seen this morning on her bedside. She is sleeping and I woke her up. She reports that she took a pain pill as she has pain in her right thigh and left foot. She denies any nausea, vomiting, dyspnea or chest pain. PHYSICAL EXAMINATION: VITALS: Temperature 96.7 degrees Fahrenheit, heart rate 63 per minute, respiratory rate 18 per minute. Blood pressure 125/60 mmHg and oxygen saturation 100% on room air. HEENT: Head is atraumatic. NECK: Supple and without JVD or thyroid enlargement. HEART: Sounds are regular and without pericardial friction rub. LUNGS: Clear to auscultation. ABDOMEN: Soft, nontender and protuberant. Some fullness in right upper quadrant is noticed. EXTREMITIES: Without any cyanosis or clubbing. Left foot is in dressing. NEUROLOGICAL: She is at her baseline mentation. LABORATORY STUDIES: Today's labs show WBC 8.9, hemoglobin 8.1, hematocrit 25.1, platelets 547. Sodium 133, potassium 41, CO2 26, BUN 18 and creatinine 5.31. Total bilirubin is down to 5.7 and alkaline phosphatase is down to 761. Total protein 7.4 and albumin 2.2. PROBLEMS: 1. End-stage renal disease: Patient is regularly dialyzed on Thursday, Thursday and Thursday schedule. She will be dialyzed again tomorrow. 2. Hyponatremia: Mild chronic hyponatremia is unchanged and does not need any urgent intervention. 3. Anemia: Her anemia is without any significant change, although not improved. She will get Aranesp again next week. There is no emergent indication for transfusion. 4. Jaundice: She has slight improvement in her serum bilirubin. Her alkaline phosphatase is also slowly improving. Recommend GI evaluation as all of her workup so far has been inconclusive. 5. Hypertension: Blood pressure seems to be well controlled now on current medications. No changes are being made today. 6. Left foot osteomyelitis: Patient needs to probably have further debridement done. I will wait for ceiling installer to re-evaluate her.
[2021-03-31] MEDS: LOSARTAN 50MG TABLET PO SCH (20:18)
[2021-03-31] MEDS: LEVEMIR (INSULIN DETEMIR) 1 UNITS/0.01ML SC SCH (20:24)
[2021-04-01] VITALS: BP 139/65
[2021-04-01 04:00] VITALS: BP 136/66
[2021-04-01] MEDS: SODIUM CHLORIDE 0.9% INJ 10 ML SYR IV SCH ×2 (05:32→17:47)
[2021-04-01] MEDS: CEFTAROLINE FOSAMIL 200 MG in D5W 50 ML IV SCH ×2 (05:32→17:45)
[2021-04-01 05:50] LABS: BASO # 0.1 10^3/uL (0.0-0.2); BASO % 0.9 % (0.0-1.0); EOS # 0.5 10^3/uL (0.0-0.5); EOS % 5.9 % (0.0-3.0); HEMATOCRIT 26.8 % (36.0-47.0); HEMOGLOBIN 8.7 g/dl (12.0-15.5); LYMPH % 11.8 % (24.0-44.0); MEAN CORPUSCULAR HEMOGLOBIN 32.1 pg (27.0-33.0); MEAN CORPUSCULAR HGB CONC 32.5 g/dl (32.0-36.5); MEAN CORPUSCULAR VOLUME 98.9 fl (80.0-96.0); MONO # 0.7 10^3/uL (0.0-0.8); MONO % 8.1 % (2.0-8.0); NEUTROPHILS # 6.4 10^3/uL (1.5-8.5); NEUTROPHILS % 72.7 % (36.0-66.0); PLATELET COUNT, AUTOMATED 553 10^3/uL (150-450); RED BLOOD COUNT 2.71 10^6/uL (4.00-5.40); WHITE BLOOD COUNT 8.8 10^3/uL (4.0-10.0)
[2021-04-01 06:18] LABS: ALBUMIN 2.2 GM/DL (3.2-5.2); ALT/SGPT < 6 U/L (12-78); BILIRUBIN,TOTAL 4.8 MG/DL (0.2-1.0); BLOOD UREA NITROGEN 26 MG/DL (7-18); CALCIUM LEVEL 9.3 MG/DL (8.5-10.1); CARBON DIOXIDE LEVEL 25 MEQ/L (21-32); CHLORIDE LEVEL 92 MEQ/L (98-107); CREATININE FOR GFR 6.63 MG/DL (0.55-1.30); GLOMERULAR FILTRATION RATE 9.3 (>60); GLUCOSE, FASTING 138 MG/DL (70-100); SODIUM LEVEL 130 MEQ/L (136-145); TOTAL PROTEIN 8.1 GM/DL (6.4-8.2)
[2021-04-01 07:13] VITALS: BP 123/60
[2021-04-01] MEDS: HumaLOG INSULIN (NovoLOG) PER UNIT SC SCH ×4 (08:30→20:27)
[2021-04-01] MEDS: (RENVELA) SEVELAMER **CARBONate** 800 MG TAB PO SCH ×3 (13:28→17:45)
[2021-04-01] MEDS: LACTOBACILLUS ACIDOPHILUS CAP (BACID) PO SCH ×2 (13:28→17:45)
[2021-04-01] MEDS: **hydrALAZINE HCL** 25 MG TAB PO SCH ×3 (13:28→20:26)
[2021-04-01] MEDS ORDERED: BISACODYL 5 MG TAB PO ONE (14:25)
[2021-04-01] MEDS: METOPROLOL TARTRATE 100 MG TAB PO SCH ×2 (15:23→21:36)
[2021-04-01] MEDS: minoxidiL 2.5 MG TAB PO SCH ×2 (15:23→20:26)
[2021-04-01] MEDS: HEPARIN SOD (PORCINE) 5000UNITS/ML 1ML VIAL/SYRINGE SQ SCH ×2 (15:24→21:36)
[2021-04-01] MEDS: ONDANSETRON 4MG/2ML VIAL IV PRN (15:37)
[2021-04-01] MEDS: SCOPOLAMINE 1MG TRANSDERMAL PATCH TOP SCH (15:37)
[2021-04-01] MEDS: ISOSORBIDE MON. (IMDUR) 30 MG XR TAB PO SCH (15:38)
[2021-04-01] MEDS: ASPIRIN 81MG ENTERIC TABLET PO SCH (15:38)
[2021-04-01] MEDS: PERCOCET 5MG/325MG TAB PO PRN (15:38)
[2021-04-01] MEDS: cloNIDine 0.1MG TABLET PO SCH (15:39)
[2021-04-01] MEDS: CALCITRIOL 0.25 MCG CAP (S0169) PO SCH (15:39)
[2021-04-01 15:47] VITALS: BP 180/82
[2021-04-01 16:00] VITALS: BP 148/66
--- NOTE | 2021-04-01 17:06 | IPN ---
NEPHROLOGY PROGRESS NOTE DATE: 04/01/2021 SUBJECTIVE: Ms. Mireles is seen this morning on her bedside. She is in the dialysis room currently waiting to get on the dialysis machine. She was brought in early by the staff. She is feeling better and reports that pain in her left foot is still there and she is taking pain medication. She denies any fever or chills. There is no dyspnea, chest pain, nausea or vomiting. PHYSICAL EXAMINATION: Temperature 97.1 degrees Fahrenheit, heart rate 57 per minute, respiratory rate 20 per minute, blood pressure 123/60 mmHg, oxygen saturation 94% on room air. HEAD: Atraumatic. NECK: Supple and without jugular venous distention (JVD) or thyroid enlargement. HEART SOUNDS: Regular. LUNGS: Clear to auscultation. ABDOMEN: Soft. Bowel sounds are normal. Fullness and tenderness in the right upper quadrant is unchanged. EXTREMITIES: Without any cyanosis or clubbing. Left foot is in the dressing. NEUROLOGIC: She is at her baseline mentation without a focal deficit. LABORATORY DATA: Today's labs show WBC 8.8, hemoglobin 8.7, hematocrit 26.8, platelets 553. Sodium 130, potassium 4.0, CO2 25, BUN 26, creatinine 6.63, glucose 138, calcium 9.3. Bilirubin is down to 4.8 and alkaline phosphatase is 737. PROBLEMS: 1. End-stage renal disease. Patient is going to be dialyzed this afternoon, which is her regular dialysis day. 2. Congestive heart failure/hypervolemia. Volume status seems well-compensated and we will try to remove about 2 liters of fluid today as tolerated. 3. Hyponatremia. Sodium level slightly worse, but likely to improve with dialysis today. No other intervention will be needed. 4. Anemia. Her anemia is slightly improved and stable. No urgent need for a transfusion. She receives weekly dose of her Aranesp. 5. Left foot osteomyelitis. She continues with wound care and is waiting for instructor ballroom dancing for possible further debridement. 6. Abnormal liver function tests (LFTs). This is a chronic issue, but seems to be gradually improving. 7. Hypertension. Blood pressure very well controlled on current antihypertensive medications. No changes are being made today.
--- NOTE | 2021-04-01 17:36 | IPN ---
PROGRESS NOTE DATE: 04/01/2021 SUBJECTIVE: The patient is seen and examined. She states her foot is feeling a little better since receiving the antibiotics, but she continues to have significant pain controlled only with Percocet. OBJECTIVE: On lower extremity examination, there is trace purulence with expression of the wound. Erythema and edema is otherwise improved. ASSESSMENT: A 35-year-old female with diabetic foot ulceration and abscess. PLAN: Will bring to the operating room for further incision and drainage. She is to be n.p.o. at midnight.
[2021-04-01 20:00] VITALS: BP 104/50
[2021-04-01] MEDS: LEVEMIR (INSULIN DETEMIR) 1 UNITS/0.01ML SC SCH (20:27)
[2021-04-01] MEDS: LOSARTAN 50MG TABLET PO SCH (21:36)
--- NOTE | 2021-04-01 21:44 | IPNPDOC ---
Date Seen The patient was seen on 04/01/21. Progress Note SUBJECTIVE: Patient is a 35-year-old female with history of end-stage renal disease, insulin-dependent diabetes type 1, pulmonary hypertension, hypertension, history of C. difficile. This is hospital day #4 for this patient who presents after recent hospitalization in March 2021 when she was found to have MSSA bacteremia. Patient and nursing staff do not report any overnight events. Patient reports good appetite and states that she is able to ambulate to the restroom with support of a walker. She states that this is her baseline ambulation status. There is reports that patient's insulin lispro was held prior to hemodialysis today due to glucose level being at 138 this morning. Patient initially refused administration of heparin 5000 units. Patient denies any left leg pain at this time. Patient reports that she has some right lower quadrant abdominal pain, otherwise her pain is well controlled on oxycodone 1 tab every 6 hours when necessary. She is due for hemodialysis today. OBJECTIVE PHYSICAL EXAMINATION: VITAL SIGNS: Please see below. GENERAL: Pleasant, young, black female in the left lateral recumbent position and appears in no acute distress HEENT: icteric sclera, dry oral mucous membranes CARDIOVASCULAR: Regular rate and rhythm, no murmurs, rubs or gallops. RESPIRATORY:. Clear to auscultation bilaterally. ABDOMINAL:. Soft, nontender in all other quadrants except right lower quadrant mild tenderness, bowel sounds positive EXTREMITIES:. Left foot wrapped in Nasim bandage and gauze, no pitting edema bilateral lower extremities NEUROLOGICAL:Conversational, good tone, alert and oriented 3 LABORATORY DATA, IMAGING STUDIES, MICROBIOLOGY: Please see below. DVT prophylaxis ordered: Heparin 5000 units every 12 hours ASSESSMENT AND PLAN: This is a 35-year-old female with history of insulin- dependent diabetes type 1 and recent hospitalization for MSSA bacteremia. Pres ented with increasing left foot pain and swelling after recent metatarsal head excision, irrigation and antibiotic bead placement by Dr. Mondragon. Blood cultures were negative during this visit. Patient was started on cetirizine every 12 hours. #Increasing left foot pain and swelling. Patient was started on empiric IV Ceftaroline on admission, however, patient's pain has significantly decreased and both wound and blood cultures are negative, or will be stopping IV ceftaroline at this time and transitioning to IV Cefizox and start IV Ancef, to be continued due to MSSA bacteremia on 03/10/2021, until 04/22/21, for a total of 6 weeks of IV antibiotic treatment Dr. Mondragon is currently out of town until 04/03/2021. Therefore, Dr. Bledsoe or general surgery with need to be consulted if patient's pain or swelling worsen. Continue oxycodone 1 tab every 6 hours when necessary for pain management #Right thigh pain. Ultrasound negative for DVT. Range of motion, not inhibited by pain. Pain likely secondary to stretching of the thigh muscle when patient was catching herself from accidentally falling. #Type 1 diabetes mellitus with severe peripheral neuropathy. December 2020, A1c: 10.3. Continue consistent carb diet with sliding scale insulin. Continue Levemir 5 units daily at bedtime #Hyperbilirubinemia. Patient has gallbladder wall thickening and history of congestive hepatopathy. Total bilirubin is decreased from yesterday. #Abnormal liver enzymes. Upon admission, patient had abnormal liver enzymes demonstrating conjugated, unconjugated hyperbilirubinemia. Extensive workup for hepatitis and different causes for labs and imaging did not reveal anything to explain the abnormal findings. liver biopsy last month showed benign liver tissue and dilated sinusoids suggestive of obstruction of venous outflow, interpreted as potentially congestive hepatopathy.persistent hyperbilirubinemia despite dialysis sessions and subsequent fluid removal throughout workup, findings have been discussed with [facility] gastroenterology, which has recommended outpatient follow-up. prior to this admission. She did have a HIDA scan which was suggestive of progressive cholestasis without obstruction with subsequent repeat right upper quadrant ultrasound on this admission showing diffuse persistent thickening of gallbladder wall. Progressive gall bladder pathology may be possible factor of elevated liver enzymes and her RUQ pain #Hypertension Likely secondary to renal disease. Continue home medications: Lopressor, isosorbide mononitrate, minoxidil 2.5 mg twice a day, amlodipine 10 mg daily, losartan, Catapres, and hydralazine. #End-stage renal disease on hemodialysis Thursday, Thursday, Thursday. Nephrology is following this patient and managing hemodialysis while patient is here Inpatient service appreciates nephrology helped. Continue Sevelamer and darbepoetin as per nephrology #Pulmonary hypertension volume management per nephrology with hemodialysis. #Anemia, likely secondary to ESRD. Hgb, Hct stable at this time #Chronic thrombocytosis. Continue to monitor CBC daily. Overall trending down. #Hyponatremia, likely secondary to ESRD and hyperglycemia. Continue hemodialysis per nephrology Patient's sodium is at baseline. #History of C. difficile. Continue probiotics while patient is on antibiotics. #Social concerns Patient is homeless and has pending PFS work to plan for discharge. Patient will likely need placement for subacute rehabilitation DISPOSITION: Anticipate discharging patient to subacute rehabilitation center pending PFS work. GME ATTESTATION My faculty preceptor for this patient encounter was physically present during the encounter and was fully available. All aspects of the patient interview, examination, medical decision making process, and medical care plan development were reviewed and approved by the faculty preceptor. The faculty preceptor is aware and concurs with the plan as stated in the body of this note and will attest to such by his/her cosignature. VS, I&O, 24H, Fishbone Vital Signs/I&O Vital Signs Date Time Temp Pulse Resp B/P (MAP) Pulse Ox O2 Delivery O2 Flow Rate FiO2 04/01/21 20:00 96.8 62 16 104/50 (68) 96 Room Air 04/01/21 04:00 2.0 I&O- Last 24 Hours up to 6 AM 04/01/21 06:00 Intake Total 718 ml Balance 718 ml Laboratory Data 24H LABS Laboratory Tests 2 04/01/21 05:39: Immature Granulocyte % (Auto) 0.6, Neutrophils (%) (Auto) 72.7H, Lymphocytes (%) (Auto) 11.8L, Monocytes (%) (Auto) 8.1H, Eosinophils (%) (Auto) 5.9H, Basophils (%) (Auto) 0.9, Neutrophils # (Auto) 6.4, Lymphocytes # (Auto) 1.0L, Monocytes # (Auto) 0.7, Eosinophils # (Auto) 0.5, Basophils # (Auto) 0.1, Nucleated Red Blood Cells % (auto) 0.0, Anion Gap 13, Glomerular Filtration Rate 9.3L, Calcium Level 9.3, Total Bilirubin 4.8H, Aspartate Amino Transf (AST/SGOT) 33, Alanine Aminotransferase (ALT/SGPT) < 6L, Alkaline Phosphatase 737H, Total Protein 8.1, Albumin 2.2L, Albumin/Globulin Ratio 0.4L 04/01/21 15:27: Bedside Glucose (Misc Panel) 168H 04/01/21 17:10: Bedside Glucose (Misc Panel) 207H 04/01/21 20:19: Bedside Glucose (Misc Panel) 110H CBC/BMP Laboratory Tests 04/01/21 05:39 Microbiology Microbiology 03/28/21 Gram Stain - Final, Complete 03/28/21 Wound Culture - Final, Complete 03/28/21 Blood Culture - Preliminary, Resulted No Growth after 72 hours. All specime... 03/28/21 Blood Culture - Preliminary, Resulted No Growth after 72 hours. All specime... Jose Vitale DO April 01, 2021 21:44
[2021-04-02] VITALS (8 sets, daily range): BP systolic 121–189; BP diastolic 58–84
[2021-04-02] MEDS: SODIUM CHLORIDE 0.9% INJ 10 ML SYR IV SCH ×2 (05:22→18:46)
[2021-04-02 05:43] LABS: BASO # 0.1 10^3/uL (0.0-0.2); BASO % 0.9 % (0.0-1.0); EOS # 0.5 10^3/uL (0.0-0.5); HEMATOCRIT 27.6 % (36.0-47.0); HEMOGLOBIN 8.7 g/dl (12.0-15.5); LYMPH % 12.7 % (24.0-44.0); MEAN CORPUSCULAR HEMOGLOBIN 31.9 pg (27.0-33.0); MEAN CORPUSCULAR HGB CONC 31.5 g/dl (32.0-36.5); MEAN CORPUSCULAR VOLUME 101.1 fl (80.0-96.0); MONO # 0.7 10^3/uL (0.0-0.8); MONO % 9.5 % (2.0-8.0); NEUTROPHILS # 5.4 10^3/uL (1.5-8.5); NEUTROPHILS % 70.2 % (36.0-66.0); PLATELET COUNT, AUTOMATED 577 10^3/uL (150-450); RED BLOOD COUNT 2.73 10^6/uL (4.00-5.40); WHITE BLOOD COUNT 7.7 10^3/uL (4.0-10.0)
[2021-04-02 06:00] LABS: ALBUMIN 2.2 GM/DL (3.2-5.2); ALT/SGPT < 6 U/L (12-78); BILIRUBIN,TOTAL 4.8 MG/DL (0.2-1.0); BLOOD UREA NITROGEN 17 MG/DL (7-18); CALCIUM LEVEL 9.5 MG/DL (8.5-10.1); CARBON DIOXIDE LEVEL 24 MEQ/L (21-32); CHLORIDE LEVEL 97 MEQ/L (98-107); GLOMERULAR FILTRATION RATE 12.6 (>60); GLUCOSE, FASTING 199 MG/DL (70-100); POTASSIUM SERUM 4.2 MEQ/L (3.5-5.1); SODIUM LEVEL 133 MEQ/L (136-145); TOTAL PROTEIN 8.4 GM/DL (6.4-8.2)
[2021-04-02] MEDS: (RENVELA) SEVELAMER **CARBONate** 800 MG TAB PO SCH ×3 (08:00→18:46)
[2021-04-02] MEDS: HumaLOG INSULIN (NovoLOG) PER UNIT SC SCH ×4 (08:54→21:00)
[2021-04-02] MEDS: ceFAZolin SOD 2 GM in IV 1 EA IV SCH (08:55)
[2021-04-02] MEDS: LACTOBACILLUS ACIDOPHILUS CAP (BACID) PO SCH ×2 (08:56→18:46)
[2021-04-02] MEDS: METOPROLOL TARTRATE 100 MG TAB PO SCH ×2 (08:56→21:33)
[2021-04-02] MEDS: ISOSORBIDE MON. (IMDUR) 30 MG XR TAB PO SCH (08:56)
[2021-04-02] MEDS: **hydrALAZINE HCL** 25 MG TAB PO SCH ×3 (08:57→21:00)
[2021-04-02] MEDS: minoxidiL 2.5 MG TAB PO SCH ×2 (08:57→21:33)
[2021-04-02] MEDS: ASPIRIN 81MG ENTERIC TABLET PO SCH (08:57)
[2021-04-02] MEDS: cloNIDine 0.1MG TABLET PO SCH (08:57)
[2021-04-02] MEDS: HEPARIN SOD (PORCINE) 5000UNITS/ML 1ML VIAL/SYRINGE SQ SCH ×3 (08:58→21:33)
[2021-04-02] MEDS: ONDANSETRON 4MG/2ML VIAL IV PRN (09:11)
[2021-04-02] MEDS: PERCOCET 5MG/325MG TAB PO PRN (09:11)
--- NOTE | 2021-04-02 13:33 | IPN ---
PROGRESS NOTE DATE: 04/02/2021 Ms. Mireles is seen this morning on her bedside. She is resting comfortably in the bed. She reports that she has been made nothing by mouth and going to operating room (OR) later today. She denies any dyspnea, chest pain, nausea, or vomiting. She has no fever or chills. She was dialyzed yesterday and tolerated her dialysis well. PHYSICAL EXAMINATION: Temperature 97.4 degrees Fahrenheit, heart rate 64 per minute, respiratory rate 18 per minute, blood pressure 175/74 mmHg, and oxygen saturation 98%. Head is atraumatic. Dialysis catheter in right upper chest is intact. Neck veins are not abnormally distended. Heart sounds are regular and lungs clear to auscultation. Abdomen soft and without any significant tenderness. There is some fullness in the right upper quadrant. Bowel sounds are present. Extremities without any cyanosis or clubbing. Left foot is in the dressing. Neurologically at her baseline mentation without a focal deficit. Today's labs show WBC count 7.7, hemoglobin 8.7, and hematocrit 27.6. Platelets 577. Sodium 133, potassium 4.2, BUN 17, creatinine 5.1. Total bilirubin is 4.8 and albumin 2.2. PROBLEMS: 1. End-stage renal disease. Patient was dialyzed yesterday and will be scheduled for next dialysis tomorrow. No urgent need for dialysis today. 2. Hyponatremia. She has mild hyponatremia, which has been stable and unchanged. No specific intervention is needed. 3. Hypertension. Blood pressure mostly well controlled with occasional high readings. I would recommend to continue with current antihypertensive medications. 4. Abnormal liver function tests. Her bilirubin has been slowly improving, but this is a chronic issue, and I will recommend to get gastrointestinal (GI) evaluation. 5. Anemia. Her anemia has required transfusions in the past. She has ongoing infection in her right foot and likely to require transfusion again. 6. Left foot osteomyelitis. Patient is scheduled for operating room (OR) today for possible debridement.
--- NOTE | 2021-04-02 14:00 | IPNPDOC ---
Date Seen The patient was seen on 04/02/21. Progress Note SUBJECTIVE: Patient is a 35-year-old female with history of end-stage renal disease, insulin-dependent diabetes type 1, pulmonary hypertension, hypertension, history of C. difficile. This is hospital day #5 for this patient who presents after recent hospitalization in March 2021 when she was found to have MSSA bacteremia. Patient and nursing staff do not report any overnight events. However, this morning the patient had one episode of vomiting though water, that she had drank a little water before this episode. Patient was given 1 dose of Zofran at that time by the nurse. Patient denied any chest pain, heart palpitations or feeling of uneasiness. Patient is currently on diet of nothing by mouth except for her medications since Dr. Mondragon has scheduled the patient for surgery if afternoon. Patient reports that her abdominal pain has increased in location from yesterday. Yesterday she had complained of right lower abdominal pain. However, today she states that she also has right upper quadrant pain. She does not associate this pain with occurring before, during or after meals and states that he is random. She is currently on pain medications. Therefore, she reports that it is difficult to report exact pain timing. Patient tolerated hemodialysis well yesterday. Patient reports that she is still able to ambulate to the restroom with support of a walker, unchanged from yesterday. She states that this is her baseline ambulation status. Patient denies any left leg pain at this time. OBJECTIVE PHYSICAL EXAMINATION: VITAL SIGNS: Please see below. GENERAL: Pleasant, young, black female appears in no acute distress HEENT: icteric sclera, dry oral mucous membranes CARDIOVASCULAR: Regular rate and rhythm, no murmurs, rubs or gallops. RESPIRATORY: Clear to auscultation bilaterally. ABDOMINAL: Soft, however distended, and tender in right upper, mid-right, and right lower quadrants, bowel sounds positive EXTREMITIES: Left foot wrapped in Nasim bandage and gauze, no pitting edema bilateral lower extremities NEUROLOGICAL:Conversational, good tone, alert and oriented 3 LABORATORY DATA, IMAGING STUDIES, MICROBIOLOGY: Please see below. DVT prophylaxis ordered: Heparin 5000 units every 12 hours ASSESSMENT AND PLAN: This is a 35-year-old female with history of insulin-depend ent diabetes type 1 and recent hospitalization for MSSA bacteremia. Presented with increasing left foot pain and swelling after recent metatarsal head excision, irrigation and antibiotic bead placement by Dr. Mondragon. Blood cultures were negative during this visit. Patient was started on cetirizine every 12 hours. #Abdominal pain with history of abnormal imaging of gallbladder. Patient continues to c/o abdominal pain of increasing acuity, in the setting of abdominal distention and a positive history of gallbladder wall thickening seen on ultrasound on 03/28/2021 Patient denies bowel movement since 03/29/2021. Although patient reports that this is similar to her normal pattern of bowel movements, considering her increasing abdominal pain and distention of the abdomen, a CT abdomen without contrast is being considered. CT abdomen without contrast has been ordered stat. Considering surgical consult after CT abdomen without contrast imaging has been read by radiologist. #Increasing left foot pain and swelling. Continue IV Ancef, to be continued due to MSSA bacteremia on 03/10/2021, until 04/22/21, for a total of 6 weeks of IV antibiotic treatment Patient on nothing by mouth for Dr. Mondragon's surgical procedure Dr. Mondragon expressed wound purulence yesterday, therefore, is performing irrigation and cleaning of the wound today. Continue oxycodone 1 tab every 6 hours when necessary for pain management. #Right thigh pain. Ultrasound negative for DVT. Range of motion, not inhibited by pain. Pain likely secondary to stretching of the thigh muscle when patient was catc jerod herself from accidentally falling. #Type 1 diabetes mellitus with severe peripheral neuropathy. December 2020, A1c: 10.3. Continue consistent carb diet with sliding scale insulin. Continue Levemir 5 units daily at bedtime #Hyperbilirubinemia. Patient has gallbladder wall thickening and history of congestive hepatopathy. Patient's R ratio suggest. Cholestatic pattern to liver pathology. See "# abnormal liver enzymes" below. Total bilirubin is stable from yesterday. #Abnormal liver enzymes. Upon admission, patient had abnormal liver enzymes demonstrating conjugated, unconjugated hyperbilirubinemia. Extensive workup for hepatitis and different causes for labs and imaging did not reveal anything to explain the abnormal findings. liver biopsy last month showed benign liver tissue and dilated sinusoids suggestive of obstruction of venous outflow, interpreted as potentially conges tive hepatopathy.persistent hyperbilirubinemia despite dialysis sessions and subsequent fluid removal throughout workup, findings have been discussed with [facility] gastroenterology, which has recommended outpatient follow-up. prior to this admission. She did have a HIDA scan which was suggestive of progressive cholestasis without obstruction with subsequent repeat right upper quadrant ultrasound on this admission showing diffuse persistent thickening of gallbladder wall. Progressive gall bladder pathology may be possible factor of elevated liver enzymes and her RUQ pain #Hypertension Likely secondary to renal disease. Continue home medications: Lopressor, isosorbide mononitrate, minoxidil 2.5 mg twice a day, amlodipine 10 mg daily, losartan, Catapres, and hydralazine. #End-stage renal disease on hemodialysis Thursday, Thursday, Thursday. Nephrology is following this patient and managing hemodialysis while patient is here Inpatient service appreciates nephrology helped. Continue Sevelamer and darbepoetin as per nephrology #Pulmonary hypertension volume management per nephrology with hemodialysis. #Anemia, likely secondary to ESRD. Hgb, Hct stable at this time #Chronic thrombocytosis. Continue to monitor CBC daily. Overall trending down. #Hyponatremia, likely secondary to ESRD and hyperglycemia. Continue hemodialysis per nephrology Patient's sodium is at baseline. #History of C. difficile. Continue probiotics while patient is on antibiotics. #Social concerns Patient is homeless. Patient has agreed to short-term rehabilitation for IV antibiotics and wound care. Referrals have been sent to 5 facilities according to PFS, according to Adilene Faria. This will give community agencies time to work on permanent housing for her as well. Short-term rehabilitation bed may be offered soon, pending update from PFS. DISPOSITION: Anticipate discharging patient to subacute rehabilitation center pending PFS work. VS, I&O, 24H, Fishbone Vital Signs/I&O Vital Signs Date Time Temp Pulse Resp B/P (MAP) Pulse Ox O2 Delivery O2 Flow Rate FiO2 04/02/21 12:00 97.4 63 18 149/67 (94) 98 Room Air 04/01/21 04:00 2.0 I&O- Last 24 Hours up to 6 AM 04/02/21 06:00 Intake Total 1620 ml Output Total 3000 ml Balance -1380 ml Laboratory Data 24H LABS Laboratory Tests 2 04/01/21 15:27: Bedside Glucose (Misc Panel) 168H 04/01/21 17:10: Bedside Glucose (Misc Panel) 207H 04/01/21 20:19: Bedside Glucose (Misc Panel) 110H 04/02/21 05:20: Immature Granulocyte % (Auto) 0.7, Neutrophils (%) (Auto) 70.2H, Lymphocytes (%) (Auto) 12.7L, Monocytes (%) (Auto) 9.5H, Eosinophils (%) (Auto) 6.0H, Basophils (%) (Auto) 0.9, Neutrophils # (Auto) 5.4, Lymphocytes # (Auto) 1.0L, Monocytes # (Auto) 0.7, Eosinophils # (Auto) 0.5, Basophils # (Auto) 0.1, Nucleated Red Blood Cells % (auto) 0.0, Anion Gap 12, Glomerular Filtration Rate 12.6L, Calcium Level 9.5, Total Bilirubin 4.8H, Aspartate Amino Transf (AST/SGOT) 41H, Alanine Aminotransferase (ALT/SGPT) < 6L, Alkaline Phosphatase 901H, Total Protein 8.4H, Albumin 2.2L, Albumin/Globulin Ratio 0.4L 04/02/21 12:08: Bedside Glucose (Misc Panel) 174H CBC/BMP Laboratory Tests 04/02/21 05:20 Microbiology Microbiology 03/28/21 Gram Stain - Final, Complete 03/28/21 Wound Culture - Final, Complete 03/28/21 Blood Culture - Final, Complete NO GROWTH AFTER 5 DAYS 03/28/21 Blood Culture - Final, Complete NO GROWTH AFTER 5 DAYS GME ATTESTATION My faculty preceptor for this patient encounter was physically present during the encounter and was fully available. All aspects of the patient interview, examination, medical decision making process, and medical care plan development were reviewed and approved by the faculty preceptor. The faculty preceptor is aware and concurs with the plan as stated in the body of this note and will attest to such by his/her cosignature. Jose Vitale DO Apr 02, 2021 14:00
--- NOTE | 2021-04-02 14:17 | REP ---
INDICATION: Distended abdomen with tenderness on exam COMPARISON: 03/09/2021 TECHNIQUE: Axial noncontrast images from the lung bases to the pubic symphysis with coronal and sagittal reformations. This CT examination was performed using the following dose reduction techniques: Automated exposure control, adjustment of mA and/or kv according to the patient's size, and use of iterative reconstruction technique. FINDINGS: With the exception of slight increased to the abdominal ascites, the examination is limited and essentially unchanged. Known findings include significant hepatomegaly and scattered para-aortic/pelvic and inguinal adenopathy. Chronic gallbladder wall thickening likely secondary to surrounding ascites again noted. Spleen, pancreas, bilateral adrenal glands and kidneys are essentially stable/normal for noncontrast evaluation. Moderate to significant fecal stasis is again noted without bowel obstruction or free air to suggest perforation. Pelvis demonstrates contrast material within the bladder and stable age-appropriate appearance to the uterus. IMPRESSION: 1. Moderate and mildly increased ascites. 2. Remainder of the examination is essentially unchanged. <Electronically signed by Guy Garcia > 04/02/21 [id number]
[2021-04-02] MEDS ORDERED: BUPIVACAINE HCL 0.5% 30 ML VIAL As Ordered ONE (16:10)
[2021-04-02] MEDS ORDERED: LIDOCAINE 1% MDV 20ML VIAL As Ordered ONE (16:10)
[2021-04-02] MEDS ORDERED: propofoL 200 MG/20 ML VIAL As Ordered ONE (17:42)
[2021-04-02] MEDS ORDERED: MIDAZOLAM INJ 2MG/2ML VIAL (J2250 PER 1MG) As Ordered ONE (17:42)
[2021-04-02] MEDS ORDERED: ONDANSETRON 4MG/2ML VIAL As Ordered ONE (17:42)
[2021-04-02] MEDS ORDERED: fentaNYL 100 MCG/2 ML INJECTION (J3010) As Ordered ONE (17:42)
[2021-04-02] MEDS ORDERED: ONDANSETRON 4MG/2ML VIAL IV PRN (18:10)
[2021-04-02] MEDS ORDERED: fentaNYL 100 MCG/2 ML INJECTION (J3010) IV PRN (18:10)
--- NOTE | 2021-04-02 18:56 | RO ---
OPERATIVE NOTE DATE OF OPERATION: 04/02/2021 PREOPERATIVE DIAGNOSIS: Left foot infection. POSTOPERATIVE DIAGNOSIS: Left foot infection. PROCEDURE: Left foot incision and drainage. SURGEON: Butch Mondragon DPM STOREKEEPER STEWARD: None. ANESTHESIA: Monitored anesthesia care with preop injection of 10 mL of 1:1 mix of 1% Lidocaine plain and 0.5% Marcaine plain. ESTIMATED BLOOD LOSS: Minimal. MATERIALS: None. COMPLICATIONS: None. SPECIMEN: Left foot culture, aerobic and anaerobic. INDICATIONS: Narcisa Mireles is a 35-year-old female with a recent left foot infection. She was discharged and had continued pain and swelling. She was admitted, underwent multiple days of antibiotics with some improvement in her pain but continues to have some pain and drainage from her left foot. Decision was made to bring her to the operating room for incision and drainage. Patient site and side were identified and marked preoperatively. Consent was reviewed and obtained. All risks, complications, and alternatives to the procedure were explained to the patient in detail, and all questions were answered. DESCRIPTION OF PROCEDURE: The patient was brought to the operating room on the stretcher in the supine position. Monitored anesthesia care was delivered by the anesthesia team. Preop injection of 10 mL of 1:1 mix of 1% Lidocaine plain and plain 0.5% Marcaine was injected in the left foot. Left foot was prepped and draped in normal sterile fashion. No tourniquet was used during the procedure. Dorsal incision was fully healed and the sutures were removed. Plantar wound was inspected. There was some seropurulent fluid with expression of the wound. Using a dermal curet, some of the nonviable tissue and calluses were removed and using a Hemostat, the wound was probed. Some further purulence was expressed along with the previous antibiotic beads that were placed in the wound. Culture swab of this fluid was taken and the remaining beads were moved using the Hemostat and then flushed out with normal saline bulb syringe. The site was irrigated and no further purulence was noted. The wound was packed using Iodoform packing and sterile gauze dressing was applied. The patient was brought to PACU with vital signs stable and neurovascular status intact. She will be readmitted to the floor for continued antibiotics and monitoring and will follow up in the office once discharged.
[2021-04-02] MEDS: LEVEMIR (INSULIN DETEMIR) 1 UNITS/0.01ML SC SCH (21:00)
[2021-04-02] MEDS: LOSARTAN 50MG TABLET PO SCH (21:33)
[2021-04-02] MEDS: ACETAMINOPHEN TAB 650MG DOSE (2X325MG) PO PRN (23:51)
[2021-04-03] VITALS: BP 136/63
[2021-04-03 04:00] VITALS: BP 144/69
[2021-04-03 05:39] LABS: BASO # 0.1 10^3/uL (0.0-0.2); BASO % 0.8 % (0.0-1.0); EOS # 0.4 10^3/uL (0.0-0.5); EOS % 4.9 % (0.0-3.0); HEMATOCRIT 28.1 % (36.0-47.0); HEMOGLOBIN 8.8 g/dl (12.0-15.5); LYMPH # 0.9 10^3/uL (1.5-5.0); LYMPH % 11.5 % (24.0-44.0); MEAN CORPUSCULAR HEMOGLOBIN 31.9 pg (27.0-33.0); MEAN CORPUSCULAR HGB CONC 31.3 g/dl (32.0-36.5); MEAN CORPUSCULAR VOLUME 101.8 fl (80.0-96.0); MONO # 0.7 10^3/uL (0.0-0.8); MONO % 9.6 % (2.0-8.0); NEUTROPHILS # 5.5 10^3/uL (1.5-8.5); NEUTROPHILS % 72.8 % (36.0-66.0); PLATELET COUNT, AUTOMATED 547 10^3/uL (150-450); RED BLOOD COUNT 2.76 10^6/uL (4.00-5.40); WHITE BLOOD COUNT 7.5 10^3/uL (4.0-10.0)
[2021-04-03] MEDS: SODIUM CHLORIDE 0.9% INJ 10 ML SYR IV SCH ×2 (05:43→17:39)
[2021-04-03 06:28] LABS: ALBUMIN 2.2 GM/DL (3.2-5.2); CALCIUM LEVEL 9.4 MG/DL (8.5-10.1); CREATININE FOR GFR 6.36 MG/DL (0.55-1.30); GLOMERULAR FILTRATION RATE 9.7 (>60); POTASSIUM SERUM 4.6 MEQ/L (3.5-5.1); TOTAL PROTEIN 8.5 GM/DL (6.4-8.2)
[2021-04-03 07:34] VITALS: BP 180/84
[2021-04-03] MEDS: LACTOBACILLUS ACIDOPHILUS CAP (BACID) PO SCH ×2 (08:00→13:58)
[2021-04-03] MEDS: (RENVELA) SEVELAMER **CARBONate** 800 MG TAB PO SCH ×3 (08:00→17:27)
[2021-04-03] MEDS: HumaLOG INSULIN (NovoLOG) PER UNIT SC SCH ×4 (08:05→20:54)
[2021-04-03] MEDS: HEPARIN SOD (PORCINE) 5000UNITS/ML 1ML VIAL/SYRINGE SQ SCH ×2 (08:06→21:00)
[2021-04-03] MEDS: ceFAZolin SOD 2 GM in IV 1 EA IV SCH (08:07)
[2021-04-03] MEDS: ONDANSETRON 4MG/2ML VIAL IV PRN (08:54)
[2021-04-03] MEDS ORDERED: BISACODYL 5 MG TAB PO PRN (10:35)
[2021-04-03] MEDS ORDERED: MOM 30ML SUSPENSION UDC PO ONE (11:00)
[2021-04-03 12:55] VITALS: BP 153/70
--- NOTE | 2021-04-03 13:12 | IPN ---
NEPHROLOGY PROGRESS NOTE DATE: 04/03/2021 SUBJECTIVE: Ms. Mireles is seen this morning during hemodialysis. She was resting comfortably and denies any dyspnea, chest pain, fever or chills. She had debridement and cleaning of her left foot wound yesterday. PHYSICAL EXAMINATION: Temperature 96.4 degrees Fahrenheit, heart rate 64 per minute and respiratory rate 18 per minute. Blood pressure 144/69 mmHg and oxygen saturation 93% on room air. Head: Atraumatic. Neck: Supple and without JVD or thyroid enlargement. Hemodialysis catheter in the right internal jugular vein is intact. Heart: Sounds are regular and there is no pericardial friction rub. Lungs: Clear to auscultation. Abdomen: Soft and nontender. Bowel sounds are normal. Extremities: Without any cyanosis or clubbing. Neurologically: She is at her baseline mentation without any focal deficit. LABORATORY DATA: Today's labs show WBC count 7.5, hemoglobin 8.8, hematocrit 28.1 and platelets 547. Sodium 132, potassium 4.6, CO2 26, BUN 25, creatinine 6.36, glucose 231, calcium 9.4. Bilirubin 5. Alkaline phosphatase up to 956. PROBLEMS/PLAN: 1. End-stage renal disease: Patient is currently being dialyzed and she is tolerating her dialysis well. She will continue with her chronic dialysis regimen of Thursday, Thursday and Thursday. 2. Hypertension: Blood pressure fluctuates, but mostly well controlled on chronic anti-hypertensive medications. No changes are being made today. 3. Anemia: Her anemia is stable and unchanged for the last few days. She remains on weekly dose of Aranesp which will be continued. No urgent need for transfusion at present. 4. Left foot osteomyelitis: Patient remains on antibiotic per Hospitalist Service. She is also being followed by podiatry and had wound cleaning and debridement just yesterday. She is currently on cefazolin 2 grams once a day. 5. Disposition: Patient is likely to go to subacute rehab tomorrow. From a renal standpoint she is medically stable for discharge.
[2021-04-03] MEDS: minoxidiL 2.5 MG TAB PO SCH ×2 (13:51→21:29)
[2021-04-03] MEDS: ISOSORBIDE MON. (IMDUR) 30 MG XR TAB PO SCH (13:51)
[2021-04-03] MEDS: cloNIDine 0.1MG TABLET PO SCH (13:52)
[2021-04-03] MEDS: METOPROLOL TARTRATE 100 MG TAB PO SCH ×2 (13:52→21:31)
[2021-04-03] MEDS: ASPIRIN 81MG ENTERIC TABLET PO SCH (13:52)
[2021-04-03] MEDS: **hydrALAZINE HCL** 25 MG TAB PO SCH ×3 (13:53→21:29)
[2021-04-03] MEDS: CALCITRIOL 0.25 MCG CAP (S0169) PO SCH (13:53)
[2021-04-03] MEDS: PERCOCET 5MG/325MG TAB PO PRN (13:56)
--- NOTE | 2021-04-03 15:39 | IPNPDOC ---
Date Seen The patient was seen on 04/03/21. Progress Note SUBJECTIVE: Patient is a 35-year-old female with history of end-stage renal disease, insulin-dependent diabetes type 1, pulmonary hypertension, hypertension, history of C. difficile. This is hospital day #6 for this patient who presents after recent hospitalization in March 2021 when she was found to have MSSA bacteremia. Patient and nursing staff do not report any overnight events. However, this morning, again, the patient had one episode of vomiting without blood in vomitus. She reported that she had one bite of her breakfast meal, before she vomited what was likely her last night's dinner according to patient. Patient was given 1 dose of Zofran at that time by the nurse. Patient denied any chest pain, heart palpitations or feeling of uneasiness. Pt is still having all three meals and does not report a decrease in appetite. Pt is scheduled for dialysis today. Patient reports that her abdominal pain is similar in severity to yesterday and has not progressed. Yesterday she had complained of right upper and lower abdominal pain. She does not associate this pain with occurring before, during or after meals and states that it is random. She is currently on pain medications. Therefore, she reports that it is difficult to report exact pain timing. Patient reports that she is still able to ambulate to the restroom with support of a walker, unchanged from yesterday. She states that this is her baseline ambulation status. Patient denies any left leg pain at this time. OBJECTIVE PHYSICAL EXAMINATION: VITAL SIGNS: Please see below. GENERAL: Pleasant, young, black female appears in no acute distress HEENT: icteric sclera, dry oral mucous membranes CARDIOVASCULAR: Regular rate and rhythm, no murmurs, rubs or gallops. RESPIRATORY: Clear to auscultation bilaterally. ABDOMINAL: Soft, distended, and tender in right upper, mid-right, and right lower quadrants, bowel sounds positive EXTREMITIES: Left foot wrapped in Nasim bandage and gauze, no pitting edema bilateral lower extremities NEUROLOGICAL:Conversational, good tone, alert and oriented 3 LABORATORY DATA, IMAGING STUDIES, MICROBIOLOGY: Please see below. DVT prophylaxis ordered: Heparin 5000 units every 12 hours ASSESSMENT AND PLAN: This is a 35-year-old female with history of insulin- dependent diabetes type 1 and recent hospitalization for MSSA bacteremia. Presented with increasing left foot pain and swelling after recent metatarsal head excision, irrigation and antibiotic bead placement by Dr. Mondragon. Blood cultures were negative during this visit. Patient was started on cetirizine every 12 hours. #Abdominal pain with history of abnormal imaging of gallbladder and iatrogenic opioid use for pain relief Patient continues to c/o abdominal pain of increasing acuity, in the setting of abdominal distention and a positive history of gallbladder wall thickening seen on ultrasound on 03/28/2021 -Surgery was consulted yesterday and verbally reported that the patient does not need a cholecystectomy at this time. Patient denies bowel movement since 03/29/2021. Although patient reports that this is similar to her normal pattern of bowel movements, considering her increasing abdominal pain and distention of the abdomen, a CT abdomen without contrast was done that did not show any signs of perforation. -Pt's constipation is likely due to opioid administration: receives oxycodone 1 tab q6hp. -Milk of magnesia once and Dulcolax daily PRN was ordered. -Considering changing pain medication to allow for return of GI peristalsis. Pt was willing to change if she could have a bowel movement. #Increasing left foot pain and swelling. Continue IV Ancef, to be continued due to MSSA bacteremia on 03/10/2021, until 04/22/21, for a total of 6 weeks of IV antibiotic treatment Patient on nothing by mouth for Dr. Mondragon's surgical procedure Dr. Mondragon expressed wound purulence yesterday, therefore, is performing irrigation and cleaning of the wound today. Continue oxycodone 1 tab every 6 hours when necessary for pain management. #Right thigh pain. Ultrasound negative for DVT. -Femur radiograph from hospitalization from when pt first complained of this same pain, 02/17/2021, negative for fractures. Pt denies trauma since then. Range of motion, not inhibited by pain. Pain likely secondary to stretching of the thigh muscle when patient was catching herself from accidentally falling. #Type 1 diabetes mellitus with severe peripheral neuropathy. December 2020, A1c: 10.3. Continue consistent carb diet with sliding scale insulin. Continue Levemir 5 units daily at bedtime #Hyperbilirubinemia. Patient has gallbladder wall thickening and history of congestive hepatopathy. Patient's R ratio suggest. Cholestatic pattern to liver pathology. See "# abnormal liver enzymes" below. Total bilirubin is slightly increased from yesterday. #Abnormal liver enzymes. Upon admission, patient had abnormal liver enzymes demonstrating conjugated, unconjugated hyperbilirubinemia. Extensive workup for hepatitis and different causes for labs and imaging did not reveal anything to explain the abnormal findings. liver biopsy last month showed benign liver tissue and dilated sinusoids suggestive of obstruction of venous outflow, interpreted as potentially congestive hepatopathy. persistent hyperbilirubinemia despite dialysis sessions and subsequent fluid removal throughout workup, findings have been discussed with [facility] gastroenterology, which has recommended outpatient follow-up. prior to this admission. She did have a HIDA scan which was suggestive of progressive cholestasis without obstruction with subsequent repeat right upper quadrant ultrasound on this admission showing diffuse persistent thickening of gallbladder wall. Progressive gall bladder pathology may be possible factor of elevated liver enzymes and her RUQ pain -risk factor modification is only intervention that is being considered to decrease progress of disease (likely secondary to multiple chronic etiologies) at this time since cholecystectomy is not being considered per surgery consult done on 04/02/21 #Hypertension Likely secondary to renal disease. Continue home medications: Lopressor, isosorbide mononitrate, minoxidil 2.5 mg twice a day, amlodipine 10 mg daily, losartan, Catapres, and hydralazine. #End-stage renal disease on hemodialysis Thursday, Thursday, Thursday. Nephrology is following this patient and managing hemodialysis while patient is here Inpatient service appreciates nephrology helped. Continue Sevelamer and darbepoetin as per nephrology #Pulmonary hypertension volume management per nephrology with hemodialysis. #Anemia, likely secondary to ESRD. Hgb, Hct stable at this time #Chronic thrombocytosis. Continue to monitor CBC daily. Overall trending down. #Hyponatremia, likely secondary to ESRD and hyperglycemia. Continue hemodialysis per nephrology Patient's sodium is at baseline. #History of C. difficile. Continue probiotics while patient is on antibiotics. #Social concerns Patient is homeless. Patient has agreed to short-term rehabilitation for IV antibiotics and wound care. Subacute rehabilitation bed has been arranged by [facility], admission tomorrow. -Covid PCR ordered. DISPOSITION: Anticipate discharging patient tomorrow to subacute rehabilitation center, [facility]. VS, I&O, 24H, Fishbone Vital Signs/I&O Vital Signs Date Time Temp Pulse Resp B/P (MAP) Pulse Ox O2 Delivery O2 Flow Rate FiO2 04/03/21 13:56 16 6/2/21 13:51 153/70 04/03/21 12:55 97.5 65 97 Room Air 04/02/21 17:57 2.0 I&O- Last 24 Hours up to 6 AM 04/03/21 06:00 Intake Total 1310 ml Output Total 50 ml Balance 1260 ml Laboratory Data 24H LABS Laboratory Tests 2 04/02/21 16:35: Bedside Glucose (Misc Panel) 187H 04/02/21 20:59: Bedside Glucose (Misc Panel) 164H 04/03/21 05:17: Immature Granulocyte % (Auto) 0.4, Neutrophils (%) (Auto) 72.8H, Lymphocytes (%) (Auto) 11.5L, Monocytes (%) (Auto) 9.6H, Eosinophils (%) (Auto) 4.9H, Basophils (%) (Auto) 0.8, Neutrophils # (Auto) 5.5, Lymphocytes # (Auto) 0.9L, Monocytes # (Auto) 0.7, Eosinophils # (Auto) 0.4, Basophils # (Auto) 0.1, Nucleated Red Blood Cells % (auto) 0.3H 04/03/21 05:40: Anion Gap 9, Glomerular Filtration Rate 9.7L, Calcium Level 9.4, Total Bilirubin 5.0H, Aspartate Amino Transf (AST/SGOT) 52H, Alanine Aminotransferase (ALT/SGPT) 8L, Alkaline Phosphatase 956H, Total Protein 8.5H, Albumin 2.2L, Albumin/Globulin Ratio 0.3L CBC/BMP Laboratory Tests 04/03/21 05:17 04/03/21 05:40 Microbiology Microbiology 04/02/21 Gram Stain - Final, Resulted 04/02/21 Wound Culture, Resulted Pending 04/02/21 Anaerobic Culture, Resulted Pending 03/28/21 Gram Stain - Final, Complete 03/28/21 Wound Culture - Final, Complete 03/28/21 Blood Culture - Final, Complete NO GROWTH AFTER 5 DAYS 03/28/21 Blood Culture - Final, Complete NO GROWTH AFTER 5 DAYS GME ATTESTATION My faculty preceptor for this patient encounter was physically present during th e encounter and was fully available. All aspects of the patient interview, examination, medical decision making process, and medical care plan development were reviewed and approved by the faculty preceptor. The faculty preceptor is aware and concurs with the plan as stated in the body of this note and will attest to such by his/her cosignature. Jose Vitale DO Apr 03, 2021 15:39
[2021-04-03 15:54] VITALS: BP 150/57
[2021-04-03] MEDS ORDERED: BISACODYL ENEMA 10 MG/30 ML PR ONE (17:50)
[2021-04-03 20:00] VITALS: BP 126/61
--- NOTE | 2021-04-03 20:57 | IPN ---
PROGRESS NOTE DATE: 04/03/2021 SUBJECTIVE: Patient seen and examined. Denies overnight complaints. States foot is feeling better. LOWER EXTREMITY EXAMINATION: No further purulence or drainage is noted and minimal pain with palpation to the forefoot. ASSESSMENT: This 35-year-old diabetic female status post incision and drainage. PLAN: Okay to be discharged. Resume Hydrofera Blue dressings; this can be performed every other day.
[2021-04-03] MEDS: LOSARTAN 50MG TABLET PO SCH (21:30)
[2021-04-03] MEDS: LEVEMIR (INSULIN DETEMIR) 1 UNITS/0.01ML SC SCH (21:40)
[2021-04-04] VITALS: BP 147/67
[2021-04-04 04:00] VITALS: BP 187/79
[2021-04-04 05:19] LABS: BASO # 0.1 10^3/uL (0.0-0.2); EOS # 0.3 10^3/uL (0.0-0.5); EOS % 4.9 % (0.0-3.0); HEMATOCRIT 27.3 % (36.0-47.0); HEMOGLOBIN 8.7 g/dl (12.0-15.5); LYMPH % 14.3 % (24.0-44.0); MEAN CORPUSCULAR HEMOGLOBIN 31.9 pg (27.0-33.0); MEAN CORPUSCULAR HGB CONC 31.9 g/dl (32.0-36.5); MONO # 0.7 10^3/uL (0.0-0.8); MONO % 10.3 % (2.0-8.0); NEUTROPHILS # 4.8 10^3/uL (1.5-8.5); NEUTROPHILS % 68.9 % (36.0-66.0); PLATELET COUNT, AUTOMATED 532 10^3/uL (150-450); RED BLOOD COUNT 2.73 10^6/uL (4.00-5.40); WHITE BLOOD COUNT 6.9 10^3/uL (4.0-10.0)
[2021-04-04] MEDS ORDERED: hydrALAZINE 20MG/ML 1ML VIAL (J0360 PER 20MG) IV ONE (05:30)
[2021-04-04] MEDS ORDERED: BISACODYL 5 MG TAB PO ONE (05:45)
[2021-04-04] MEDS ORDERED: BISACODYL 10 MG SUPP PR ONE (05:45)
[2021-04-04 06:05] LABS: ALBUMIN 2.2 GM/DL (3.2-5.2); BILIRUBIN,TOTAL 4.3 MG/DL (0.2-1.0); CALCIUM LEVEL 9.4 MG/DL (8.5-10.1); CREATININE FOR GFR 5.07 MG/DL (0.55-1.30); GLOMERULAR FILTRATION RATE 12.7 (>60); POTASSIUM SERUM 4.3 MEQ/L (3.5-5.1); TOTAL PROTEIN 7.7 GM/DL (6.4-8.2)
[2021-04-04] MEDS: SODIUM CHLORIDE 0.9% INJ 10 ML SYR IV SCH (06:47)
[2021-04-04 07:24] VITALS: BP 150/80
[2021-04-04] MEDS ORDERED: MOM 30ML SUSPENSION UDC PO PRN (08:00)
[2021-04-04 08:01] VITALS: BP 150/80
[2021-04-04] MEDS: minoxidiL 2.5 MG TAB PO SCH (08:01)
[2021-04-04] MEDS: ASPIRIN 81MG ENTERIC TABLET PO SCH (08:01)
[2021-04-04] MEDS: ceFAZolin SOD 2 GM in IV 1 EA IV SCH (08:01)
[2021-04-04] MEDS: HumaLOG INSULIN (NovoLOG) PER UNIT SC SCH ×2 (08:01→12:20)
[2021-04-04] MEDS: cloNIDine 0.1MG TABLET PO SCH (08:01)
[2021-04-04] MEDS: ISOSORBIDE MON. (IMDUR) 30 MG XR TAB PO SCH (08:02)
[2021-04-04] MEDS: (RENVELA) SEVELAMER **CARBONate** 800 MG TAB PO SCH ×2 (08:02→12:19)
[2021-04-04] MEDS: LACTOBACILLUS ACIDOPHILUS CAP (BACID) PO SCH (08:02)
[2021-04-04] MEDS: METOPROLOL TARTRATE 100 MG TAB PO SCH (08:03)
[2021-04-04] MEDS: HEPARIN SOD (PORCINE) 5000UNITS/ML 1ML VIAL/SYRINGE SQ SCH (08:03)
[2021-04-04] MEDS: **hydrALAZINE HCL** 25 MG TAB PO SCH (08:03)
--- NOTE | 2021-04-04 08:21 | CR.PDOC ---
General Surgery Consultation Date of Consultation 04/04/21 History and Physical CONSULT REPORT FOR: hospitalist service REASON FOR CONSULTATION: ?cholecystitis, need for cholecystectomy HISTORY OF PRESENT ILLNESS: PAST MEDICAL HISTORY: 1. . PAST SURGICAL HISTORY: INCLUDES: 1. . PREVIOUS ANESTHESIA REACTIONS: ALLERGIES: Please see below. FAMILY HISTORY: . HOME MEDICATIONS: Please see below. REVIEW OF SYSTEMS: GENERAL: [Denies chills, reports weight gain, reports feeling febrile yesterday]. HEENT: [Denies blurred vision and double vision. Denies ear symptoms. Denies hoarseness]. NECK: Denies any neck pain]. CARDIOVASCULAR: [Denies chest pain and palpitations]. MUSCULOSKELETAL: [Denies arthralgias, back pain and thrombophlebitis]. SKIN: [Denies rash]. NEUROLOGIC: [Denies headache, stroke and transient ischemic attack]. PSYCHIATRIC: [Denies anxiety and depression]. ENDOCRINE: [Denies thyroid disease]. HEMATOLOGY/ONCOLOGY: [Denies bleeding or clotting disorder]. HEART: [Denies any chest pains, palpitations, paroxysmal dyspnea, orthopnea]. PULMONARY: [Denies chronic cough, dyspnea and wheezing]. GASTROINTESTINAL: [Denies rectal bleeding, family history of colon cancer, constipation, diarrhea, dysphagia, heartburn and jaundice]. GENITOURINARY: [Denies dysuria, frequency, hematuria and nocturia]. ENDOCRINE: [Denies polydipsia, polyphagia, polyuria, heat or cold intolerance]. INFECTIOUS: [Denies any recent upper respiratory tract infection, UTI, need for use of antibiotics]. NUTRITION: [Reports good appetite]. PHYSICAL EXAMINATION: VITALS SIGNS: Please see below. GENERAL APPEARANCE:[Patient seen, laying in bed, awake, alert, and oriented. Comfortable, in no acute distress]. SKIN: [Warm and moist]. HEENT: [Normocephalic, atraumatic. Parmelee palpebral conjunctiva, anicteric sclerae. Lips and mucosa appear moist]. NECK: [Supple, no thyromegaly. No obvious jugular venous distention]. LUNGS: [Clear to auscultation bilaterally. No wheezing appreciated]. HEART: [No chest wall abnormalities. Regular rate and rhythm with no murmurs appreciated]. ABDOMEN: Abdomen is , soft, . [No hepatosplenomegaly. No umbilical or groin herniations, nondistended. No noticeable rebound or guarding. No grimacing with palpation. No rebound tenderness. No masses appreciated]. EXTREMITIES: [Extremities have no deformities. No edema identified] ANCILLARIES: . LABORATORY DATA: Please see below. IMAGING STUDIES: . IMPRESSION AND PLAN: decompensated cirrhosis liver cholestasis maybe outflow problem, post sinusoidal, post venous, unclear exact etiology of the cholestasis probably multifactorial secondary to venous overload (CHF), drug reaction Her symptoms does not correlate with gallbladder etiology. She is complaining of on and off discomfort over the right side of her abdomen does not necessarily at the right upper quadrant area. At the time of my examination she is most tender at the abdominal wall of the right lower quadrant area with only discomfort over the right upper quadrant with deep palpation. She has no evidence of any gallbladder disease, cholelithiasis. The right upper quadrant discomfort probably secondary to the swelling/inflammation related to the cholestasis, subcutaneous acute decompensation of her liver, given that the hyperbilirubinemia has been ongoing for at least 2 months now. Workup including HIDA scan shows a functional gallbladder. No evidence of stones on imaging. The gallbladder wall thickening is a nonspecific finding on patient's with hypoalbuminemia and ascites and does not specifically point to cholecystitis. I told her that I don't believe that her abdominal pain nor her hyperbilirubinemia and other liver abnormalities would resolve with removing her gallbladder and in fact she is not a candidate at this point for any general surgical intervention given decompensated liver state which points to mortality rates upwards of 20- 30%. I think she should be evaluated by a lpn private duty or at least be seen by her tobacco stripper hand. I have not seen any formal documentation all of the gastroenterology consult and a formal GI workup for her liver problems in [facility]. Vital Signs Vital Signs Date Time Temp Pulse Resp B/P (MAP) Pulse Ox O2 Delivery O2 Flow Rate FiO2 04/04/21 08:01 150/80 04/04/21 07:24 96.9 65 18 95 Room Air 04/02/21 17:57 2.0 I&Os I&O- Last 24 Hours up to 6 AM 04/04/21 06:00 Intake Total 1330 ml Output Total 2500 ml Balance -1170 ml Laboratory Data Labs 24H Laboratory Tests 2 04/03/21 17:03: Bedside Glucose (Misc Panel) 204H 04/03/21 20:20: Bedside Glucose (Misc Panel) 210H 04/04/21 05:06: Immature Granulocyte % (Auto) 0.6, Neutrophils (%) (Auto) 68.9H, Lymphocytes (%) (Auto) 14.3L, Monocytes (%) (Auto) 10.3H, Eosinophils (%) (Auto) 4.9H, Basophils (%) (Auto) 1.0, Neutrophils # (Auto) 4.8, Lymphocytes # (Auto) 1.0L, Monocytes # (Auto) 0.7, Eosinophils # (Auto) 0.3, Basophils # (Auto) 0.1, Nucleated Red Blood Cells % (auto) 0.0, Anion Gap 10, Glomerular Filtration Rate 12.7L, Calcium Level 9.4, Total Bilirubin 4.3H, Aspartate Amino Transf (AST/SGOT) 54H, Alanine Aminotransferase (ALT/SGPT) 7L, Alkaline Phosphatase 1170H, Total Protein 7.7, Albumin 2.2L, Albumin/Globulin Ratio 0.4L, Coronavirus (COVID- 19)(PCR) NEGATIVE CBC/BMP Laboratory Tests 04/04/21 05:06 Microbiology Microbiology 04/02/21 Gram Stain - Final, Resulted 04/02/21 Wound Culture, Resulted Pending 04/02/21 Anaerobic Culture, Resulted Pending 03/28/21 Gram Stain - Final, Complete 03/28/21 Wound Culture - Final, Complete 03/28/21 Blood Culture - Final, Complete NO GROWTH AFTER 5 DAYS 03/28/21 Blood Culture - Final, Complete NO GROWTH AFTER 5 DAYS Home Medications Scheduled Amlodipine Besylate (Amlodipine Besylate) 10 Mg Tablet, 10 MG PO DAILY, (Reported) Aspirin (Aspirin EC) 81 Mg Tablet.dr, 81 MG PO DAILY, (Reported) Calcitriol (Calcitriol) 0.25 Mcg Capsule, 0.25 MCG PO 3XW, (Reported) THU/THU/THU Carvedilol (Carvedilol) 25 Mg Tablet, 25 MG PO DAILY, (Reported) Clonidine HCl (Clonidine HCl) 0.3 Mg Tablet, 0.3 MG PO DAILY, (Reported) Ergocalciferol (Vitamin D2) (Vitamin D2) 50,000 Units Cap, 50,000 UNITS PO QWEEK, (Reported) THURSDAY Hydralazine HCl (Hydralazine HCl) 25 Mg Tablet, 25 MG PO TID, (Reported) Insulin Glargine,Hum.rec.anlog (Basaglar Kwikpen U-100) 100 Unit/1 Ml Insuln.pen, 5 UNIT SC QHS, (Reported) Insulin Human Lispro (Novolog) 100 Unit/1 Ml Vial, 1 DOSE SC AC, (Reported) PER SLIDING SCALE Isosorbide Mononitrate (Isosorbide Mononitrate ER) 30 Mg Tab.er.24h, 90 MG PO DA NARENDRA, (Reported) L.acidoph/L.bulg/B.bif/S.therm (Tonja-Bid Caplet) 1 Each Tablet, 1 TAB PO BIDWM, (Reported) Losartan Potassium (Losartan Potassium) 100 Mg Tablet, 100 MG PO QHS, (Reported) Metoprolol Tartrate (Metoprolol Tartrate) 100 Mg Tablet, 100 MG PO BID, (Reported) DOSE DECREASED TO 50MG BID, PT HAS NOT PICKED UP NEW RX YET, HAS BEEN TAKING OLD RX Minoxidil (Minoxidil) 2.5 Mg Tablet, 2.5 MG PO BID, (Reported) Sevelamer Carbonate (Sevelamer Carbonate) 800 Mg Tablet, 1,600 MG PO WM, (Reported) WITH MEALS Scheduled PRN Sevelamer Carbonate (Sevelamer Carbonate) 800 Mg Tablet, 800 MG PO BID PRN for SNACKS, (Reported) Allergies Coded Allergies: cinacalcet (Verified Allergy, Unknown, 11/25/20) latex (Verified Allergy, Unknown, 11/03/19) peanut (Verified Allergy, Unknown, 11/25/20) TAPE (Verified Adverse Reaction, Intermediate, IRRITATES SKIN, 11/03/19) USE PAPER TAPE ONL;Y morphine (Verified Adverse Reaction, Mild, MILD PRURITIS, 03/28/21) per PATIENT 03/28/21 MELIZA GALEAS MD Apr 04, 2021 08:21
[2021-04-04] MEDS ORDERED: BISACODYL 5 MG TAB PO SCH (09:00)
[2021-04-04 12:00] VITALS: BP 131/62
[2021-04-04] MEDS ORDERED: CEFA2PLA4 IV (12:47)
[2021-04-04] MEDS ORDERED: [UNRECOGNIZED DRUG - CODE] IV (12:47)
[2021-04-04] MEDS ORDERED: CEFA1BAG INJ (13:38)
--- NOTE | 2021-04-04 13:57 | DS.PDOC ---
Discharge Summary General Date of Admission March 28, 2021 at 13:33 Date of Discharge 04/04/2021 Attending Physician: ROSEMARY JOHNS MD Discharge Summary PROCEDURES PERFORMED DURING STAY: Wound irrigation and debridement and Hemodialysis. ADMITTING DIAGNOSES: 1. Increased foot pain after surgery. DISCHARGE DIAGNOSES: 1. Left foot wound status post surgery 2.ESRD on hemodialysis, MWF. 3. IDDM1 4. peripheral neuropathy 5. proliferative retinopathy s/p photocoagulation 6. Hx of DKA 7. Pulm HTN (PASP 50s) 8. Trace MVR 9. Trace AVR 10. Trace TVR 11. History of MSSA bacteremia, recent 12. Chronic Thrombocytosis 13. HTN 14. Hx of C.difff 15. Siderosis COMPLICATIONS/CHIEF COMPLAINT: Diabetic Foot Ulcer, Esrd. HISTORY OF PRESENT ILLNESS: Patient is a 35-year-old female with pMHx of ESRD (on HD MWF, can produce urine), IDDM1 (with diabetic foot ulcer & severe peripheral neuropathy), pulmonary HTN, HTN, history of C. difficile who was sent to ER by Dr. Mondragon (podiatry) today for L ft pain and swelling. To preface, patient had a recent hospital course from 03/08 to 03/20 at [facility] for SIRS 2/2 L ft osteomyelitis. Her L foot CT showed abscess with osteomyelitis of the second metatarsal. Dr. Mondragon was called and performed a bedside I&D of the abscess and subsequently took her to the OR on 03/10 for I&D with left second metatarsal head excision. She then underwent left foot irrigation and partial wound closure with insertion of antibiotic beads on 03/[address] Mondragon. She was started on IV Vanc and cefepime at first. Her BCxs and L foot wound cultures grew MSSA. She was then switched to IV nafcillin and ultimately IV ancef prior to discharge. Discharge plan was to continue IV ancef during HD sessions until 04/22 (6 weeks after first negative BCx). She also received workup for THADDEUS bacteremia which included TTE and MARINO that were negative for vegetation. After discharge, patient reported she had only 1 visit by [facility] without dressing change or education on wound care. Over the past week, she reported worsening L foot pain, especially on ambulation. She was evaluated by Dr. Mondragon today and subsequently sent to ED for further evaluation of her L foot pain. She noted brownish, green discharge and increased L ft swelling, but denied recent fever, chills, CP, SOB, N/V/D, and urinary symptoms. She also reported chronic unchanged RUQ pain that she previously received extensive workup for. She has not had a chance to see GI for follow up yet since her last discharge. Patient reported that she has been adherent to her medication regimen, her dialysis sche dule and her diet and fluid restrictions. HOSPITAL COURSE: Patient was started on IV Ceftaroline for 5 days, after which her antibiotic coverage was D escalated to IV Ancef, which was a medication. She was already receiving for a prior MSSA bacteremia. This Ancef was supposed to be continued until 04/22/2021. Therefore, she was switched back to the IV Ancef when her wound culture and blood cultures came back negative after 48 hours of no growth. Dr. Mondragon did see the patient for surgery on 04/02/2021 and irrigated and cleaned out the wound, he also took out the antibiotic beads. Patient was also worked up for possible gallbladder disease. This was done since. Gallbladder ultrasound showed gallbladder wall thickening. Surgery was consulted, however, surgery does not believe cholecystectomy is warranted at this time. Patient has ongoing congestive hepatopathy. There was no intervention done during her hospital stay for this other than trying to understand etiology due to cholestatic pattern, according to the ER ratio. Risk factor modification for hepatic disease is being considered as the only intervention that may be applicable at this time. Patient continued to receive hemodialysis on Mondays, Wednesdays and Fridays. Patient received oxycodone every 6 hours for pain. She developed constipation and required bisacodyl suppository and enema for bowel movement. She was successfully able to have a bowel movement on the day of discharge. Patient continued to receive all of her home medications for her home diagnoses as well. DISCHARGE MEDICATIONS: Please see below. ALLERGIES: Please see below. PHYSICAL EXAMINATION ON DISCHARGE: VITAL SIGNS: Please see below. GENERAL: Well-appearing, patient in no acute distress, eating breakfast HEENT: Scleral icterus, nares patent, oral mucosa moist, no oropharyngeal erythema CARDIOVASCULAR EXAMINATION: Regular rate and rhythm, no murmurs, rubs or gallops RESPIRATORY EXAMINATION: Clear to auscultation bilaterally ABDOMINAL EXAMINATION: Soft, distended, nontender, bowel sounds present EXTREMITIES: No signs of edema, clubbing, and erythema SKIN: Small spots of calcinosis present on abdomen, face and chest NEUROLOGICAL EXAMINATION: Good neurological tone of upper and lower extremities PSYCHIATRIC EXAMINATION: Patient was cooperative on exam LABORATORY DATA: Please see below. IMAGING: Abdominal/Pelvic CT: 04/02/2021 1. Moderate and mildly increased ascites. 2. Remainder of the examination is essentially unchanged. Vascular ultrasound 03/30/2021 Right lower extremity ultrasound No evidence for deep venous thrombosis. Needle Placement US 03/29/2021 PICC line insertion left brachial vein with the tip ending in the SVC. Foot CT 03/28/2021 1. Large air containing ulceration demonstrated in the interspace between the 1st and 2nd toes extending dorsally without obvious communication to the cutaneous surface. Bony a metallic densities demonstrated within the wound consistent with foreign bodies. Findings may represent an abscess and/or postsurgical change. 2. Status post subtotal resection of the 5th toe at the mid to distal metatarsal. Distal mid and proximal phalanges remain in situ. 3. Status post resection of the distal metatarsal and proximal phalanx of the 2nd toe. Gallbladder ultrasound 03/28/2021 Persistent gallbladder wall thickening diffusely. No stone or polyp seen. Normal CBD. Minimal ascites. Hepatomegaly again noted. Foot x-ray 03/28/2021 Postsurgical/partial amputation. PROGNOSIS: Fair ACTIVITY: As tolerated. DIET: Consistent carbohydrate diet DISPOSITION: Discharged to [facility] rehabilitation. DISCHARGE INSTRUCTIONS: 1. Patient must receive her dialysis on Mondays, Wednesdays and Fridays. 2. Please continue wound irrigation and cleaning with wound dressing and proper wound care. (Per Dr. Mondragon, the hand tool filer, who cared for patient's foot wound: Resume Hydrofera Blue dressings; this can be performed every other day.) 3. Please continue 1 g IV cefazolin and administration via the PICC line for this patient until April 22, 2021, for treatment of MSSA bacteremia. 4. Continue acetaminophen administration when necessary for pain. 5. Patient has been prescribed oxycodone every 6 hours when necessary for pain for the next 14 days. ITEMS TO FOLLOWUP ON ON OUTPATIENT: 1. Patient must continue dialysis on Mondays, Wednesdays and Fridays. DISCHARGE CONDITION: Stable. TIME SPENT ON DISCHARGE: Greater than 39 minutes. Vital Signs/I&Os Vital Signs Date Time Temp Pulse Resp B/P (MAP) Pulse Ox O2 Delivery O2 Flow Rate FiO2 04/04/21 12:00 96.9 61 18 131/62 (85) 93 Room Air 04/02/21 17:57 2.0 I&O- Last 24 Hours up to 6 AM 04/04/21 06:00 Intake Total 1330 ml Output Total 2500 ml Balance -1170 ml Laboratory Data Labs 24H Laboratory Tests 2 04/03/21 17:03: Bedside Glucose (Misc Panel) 204H 04/03/21 20:20: Bedside Glucose (Misc Panel) 210H 04/04/21 05:06: Immature Granulocyte % (Auto) 0.6, Neutrophils (%) (Auto) 68.9H, Lymphocytes (%) (Auto) 14.3L, Monocytes (%) (Auto) 10.3H, Eosinophils (%) (Auto) 4.9H, Basophils (%) (Auto) 1.0, Neutrophils # (Auto) 4.8, Lymphocytes # (Auto) 1.0L, Monocytes # (Auto) 0.7, Eosinophils # (Auto) 0.3, Basophils # (Auto) 0.1, Nucleated Red Blood Cells % (auto) 0.0, Anion Gap 10, Glomerular Filtration Rate 12.7L, Calcium Level 9.4, Total Bilirubin 4.3H, Aspartate Amino Transf (AST/SGOT) 54H, Alanine Aminotransferase (ALT/SGPT) 7L, Alkaline Phosphatase 1170H, Total Protein 7.7, Albumin 2.2L, Albumin/Globulin Ratio 0.4L, Coronavirus (COVID- 19)(PCR) NEGATIVE 04/04/21 11:26: Bedside Glucose (Misc Panel) 146H CBC/BMP Laboratory Tests 04/04/21 05:06 FSBS Laboratory Tests Test 04/03/21 17:03 04/03/21 20:20 04/04/21 11:26 Range/Units Bedside Glucose (Misc Panel) 204 210 146 70-105 MG/DL Microbiology Microbiology 04/02/21 Gram Stain - Final, Complete 04/02/21 Wound Culture - Final, Complete 04/02/21 Anaerobic Culture - Final, Complete 03/28/21 Gram Stain - Final, Complete 03/28/21 Wound Culture - Final, Complete 03/28/21 Blood Culture - Final, Complete NO GROWTH AFTER 5 DAYS 03/28/21 Blood Culture - Final, Complete NO GROWTH AFTER 5 DAYS Discharge Medications Scheduled Amlodipine Besylate (Amlodipine Besylate) 10 Mg Tablet, 10 MG PO DAILY, (Reported) Aspirin (Aspirin EC) 81 Mg Tablet.dr, 81 MG PO DAILY, (Reported) Calcitriol (Calcitriol) 0.25 Mcg Capsule, 0.25 MCG PO 3XW, (Reported) THU/THU/THU Carvedilol (Carvedilol) 25 Mg Tablet, 25 MG PO DAILY, (Reported) Cefazolin/Dextrose (Cefazolin 1 G/50 ml-Dextrose) 1 Gm/50 Ml Piggyback, 1 GM INJ DAILY for MSSA Bacteremia Clonidine HCl (Clonidine HCl) 0.3 Mg Tablet, 0.3 MG PO DAILY, (Reported) Ergocalciferol (Vitamin D2) (Vitamin D2) 50,000 Units Cap, 50,000 UNITS PO QWEEK, (Reported) THURSDAY Hydralazine HCl (Hydralazine HCl) 25 Mg Tablet, 25 MG PO TID, (Reported) Insulin Glargine,Hum.rec.anlog (Basaglar Kwikpen U-100) 100 Unit/1 Ml Insuln.pen, 5 UNIT SC QHS, (Reported) Insulin Human Lispro (Novolog) 100 Unit/1 Ml Vial, 1 DOSE SC AC, (Reported) PER SLIDING SCALE Isosorbide Mononitrate (Isosorbide Mononitrate ER) 30 Mg Tab.er.24h, 90 MG PO DAILY, (Reported) L.acidoph/L.bulg/B.bif/S.therm (Tonja-Bid Caplet) 1 Each Tablet, 1 TAB PO BIDWM, (Reported) Losartan Potassium (Losartan Potassium) 100 Mg Tablet, 100 MG PO QHS, (Reported) Metoprolol Tartrate (Metoprolol Tartrate) 100 Mg Tablet, 100 MG PO BID, (Reported) DOSE DECREASED TO 50MG BID, PT HAS NOT PICKED UP NEW RX YET, HAS BEEN TAKING OLD RX Minoxidil (Minoxidil) 2.5 Mg Tablet, 2.5 MG PO BID, (Reported) Sevelamer Carbonate (Sevelamer Carbonate) 800 Mg Tablet, 1,600 MG PO WM, (Reported) WITH MEALS Scheduled PRN Oxycodone/Acetaminophen (Oxycodone-Acetaminophen 5-325) 1 Each Tablet, 1 TAB PO Q6HP PRN for MODERATE PAIN (PS 5-7) Sevelamer Carbonate (Sevelamer Carbonate) 800 Mg Tablet, 800 MG PO BID PRN for SNACKS, (Reported) Allergies Coded Allergies: cinacalcet (Verified Allergy, Unknown, 11/25/20) latex (Verified Allergy, Unknown, 11/03/19) peanut (Verified Allergy, Unknown, 11/25/20) TAPE (Verified Adverse Reaction, Intermediate, IRRITATES SKIN, 11/03/19) USE PAPER TAPE ONL;Y morphine (Verified Adverse Reaction, Mild, MILD PRURITIS, 03/28/21) per PATIENT 03/28/21 GME ATTESTATION GME ATTESTATION My faculty preceptor for this patient encounter was physically present during the encounter and was fully available. All aspects of the patient interview, examination, medical decision making process, and medical care plan development were reviewed and approved by the faculty preceptor. The faculty preceptor is aware and concurs with the plan as stated in the body of this note and will attest to such by his/her cosignature. Jose Vitale DO Apr 04, 2021 13:57
[2021-04-04] MEDS ORDERED: PERCOCET PO (14:01)
[2021-04-04] MEDS ORDERED: SLF IV (14:06)
[2021-04-04] MEDS ORDERED: HEPA10PFSY IV (14:07)
--- NOTE | 2021-04-05 23:36 | ECGEPIP ---
[facility] Test Date: 2021-04-02 Pat Name: KATELYN COLLINS Department: Room: [place] [address] Gender: Female Gizzard Puller: PETER : 1985 Requested By: DANNY PEDROZA D.O. Order Number: [id number] Reading MD: Hugh Allen Measurements Intervals [place] Rate: 66 P: 76 FL: 162 QRS: 77 QRSD: 64 T: 227 QT: 416 QTc: 436 Interpretive Statements Normal sinus rhythm T wave abnormality, consider Last tracing on 03/08/21 at 10:04. No remarkable changes but slower heart rate Electronically Signed on 04-05-2021 23:36:22 EDT by Hugh Allen
== END 2021-04-04 14:06 | DRG 638 ==
LOC: M ED 08:34 → M ED INP 13:33 → ENRESERV 14:19 → M PCU 18:23
PROVIDERS: ADMIT Internal Medicine; ATTEND Internal Medicine
PROC: 30233N1 Transfusion of Nonautologous Red Blood Cells into Peripheral Vein, Percutaneous Approach (ICD-10-PCS; 2021-03-28)
PROC: 02HV33Z Insertion of Infusion Device into Superior Vena Cava, Percutaneous Approach (ICD-10-PCS; 2021-03-29)
PROC: 5A1D70Z Performance of Urinary Filtration, Intermittent, Less than 6 Hours Per Day (ICD-10-PCS; principal; 2021-03-29 15:00)
PROC: 0H9NXZZ Drainage of Left Foot Skin, External Approach (ICD-10-PCS; 2021-04-02)
DX: E10.621 Type 1 diabetes mellitus with foot ulcer (principal); I12.0 Hypertensive chronic kidney disease with stage 5 chronic kidney disease or end stage renal disease; L97.528 Non-pressure chronic ulcer of other part of left foot with other specified severity; E87.1 Hypo-osmolality and hyponatremia; K74.60 Unspecified cirrhosis of liver; N18.6 End stage renal disease; Z99.2 Dependence on renal dialysis; E10.22 Type 1 diabetes mellitus with diabetic chronic kidney disease; E10.42 Type 1 diabetes mellitus with diabetic polyneuropathy; I27.20 Pulmonary hypertension, unspecified; E10.3599 Type 1 diabetes mellitus with proliferative diabetic retinopathy without macular edema, unspecified eye; Z89.421 Acquired absence of other right toe(s); E87.6 Hypokalemia; Z89.422 Acquired absence of other left toe(s); I36.1 Nonrheumatic tricuspid (valve) insufficiency; R74.8 Abnormal levels of other serum enzymes; D63.1 Anemia in chronic kidney disease; D47.3 Essential (hemorrhagic) thrombocythemia; N25.81 Secondary hyperparathyroidism of renal origin; F41.9 Anxiety disorder, unspecified; Z20.822 Contact with and (suspected) exposure to COVID-19; E10.65 Type 1 diabetes mellitus with hyperglycemia; Z79.82 Long term (current) use of aspirin; Z79.4 Long term (current) use of insulin; Z79.899 Other long term (current) drug therapy; Z88.5 Allergy status to narcotic agent; Z88.8 Allergy status to other drugs, medicaments and biological substances; Z91.010 Allergy to peanuts; Z91.040 Latex allergy status; Z91.048 Other nonmedicinal substance allergy status; Z59.0 Homelessness

== ENCOUNTER 2021-04-15 11:39 | Inpatient (IN) | payer MEDICARE, MEDICAID ==
[~2021-04-15] VITALS: Ht 175.3 cm; Wt 98.7 kg
[~2021-04-15 11:39] MED LIST changes: +CEFA1BAG INJ; +CEFA2PLA4 IV; +ERGO500029 PO; +HEPA10PFSY IV; +SLF IV; -VITA50005 PO; +[UNRECOGNIZED DRUG - CODE] IV
[2021-04-15] MEDS ORDERED: NOVOINJ12 SC (12:36)
[2021-04-15] MEDS ORDERED: METO50TA7 PO (12:36)
[2021-04-15] MEDS ORDERED: [UNRECOGNIZED DRUG - CODE] IV (12:36)
[2021-04-15] MEDS ORDERED: CEFA1INJ5 IV (12:36)
[2021-04-15] MEDS ORDERED: CARV12.5 PO (12:36)
[2021-04-15 13:04] LABS: BASO # 0.1 10^3/uL (0.0-0.2); BASO % 0.6 % (0.0-1.0); EOS # 0.5 10^3/uL (0.0-0.5); EOS % 4.7 % (0.0-3.0); HEMATOCRIT 29.3 % (36.0-47.0); HEMOGLOBIN 9.5 g/dl (12.0-15.5); LYMPH % 8.4 % (24.0-44.0); MEAN CORPUSCULAR HEMOGLOBIN 32.2 pg (27.0-33.0); MEAN CORPUSCULAR HGB CONC 32.4 g/dl (32.0-36.5); MEAN CORPUSCULAR VOLUME 99.3 fl (80.0-96.0); MONO % 8.7 % (2.0-8.0); NEUTROPHILS % 77.3 % (36.0-66.0); PLATELET COUNT, AUTOMATED 444 10^3/uL (150-450); RED BLOOD COUNT 2.95 10^6/uL (4.00-5.40); WHITE BLOOD COUNT 11.6 10^3/uL (4.0-10.0)
[2021-04-15 13:25] LABS: ERYTHROCYTE SEDIMENTATION RATE > 140 mm/hr (0-20)
--- NOTE | 2021-04-15 13:48 | REP ---
INDICATION: R/O DVT. COMPARISON: None. TECHNIQUE: Multiple ultrasonographic images of the deep venous structures of the right lower extremity were obtained from the inguinal ligament to the ankle. Venous compression techniques, color doppler imaging, and augmentation techniques were also obtained where appropriate. As per the ACR guidelines the anterior tibial vein can not be effectively evaluated. Only compression techniques in the calf on the peroneal and posterior tibial veins was attempted/performed. FINDINGS: It is written on the technologist worksheet that the examination is very limited as the patient could not tolerate venous compressive techniques from the proximal superficial femoral vein all the way inferiorly to the ankle. Without this form of interrogation DVT cannot be ruled out. Additionally, in the anterior thigh over an area of extreme pain a complex hypoechoic area was seen which measured 17.4 x 3.3 x 6.3 cm. IMPRESSION: 1. Due to exam limitations DVT cannot be ruled out. 2. Mixed echo mass of uncertain etiology as described above. Developing abscess, hematoma, or solid appearing mass cannot be ruled out. Further imaging with gadolinium enhanced MRI is recommended. <Electronically signed by Darnell Fox > 04/15/21 [id number]
[2021-04-15 13:52] LABS: ALBUMIN 2.4 GM/DL (3.2-5.2); BILIRUBIN,DIRECT 2.9 MG/DL (0.0-0.2); BILIRUBIN,TOTAL 3.6 MG/DL (0.2-1.0); C REACTIVE PROTEIN QUANTITATIV 5.6 MG/DL (0.00-0.30); CALCIUM LEVEL 9.5 MG/DL (8.5-10.1); CREATININE FOR GFR 7.27 MG/DL (0.55-1.30); GLOMERULAR FILTRATION RATE 8.3 (>60); POTASSIUM SERUM 5.6 MEQ/L (3.5-5.1); TOTAL PROTEIN 7.7 GM/DL (6.4-8.2)
[2021-04-15] MEDS ORDERED: fentaNYL 100 MCG/2 ML INJECTION (J3010) IV ONE ×2 (14:50→17:55)
--- NOTE | 2021-04-15 15:49 | REP ---
INDICATION: trauma. COMPARISON: None. TECHNIQUE: AP and combination of frog-leg and cross-table lateral. FINDINGS: There is no evidence of an acute fracture or destructive osseous lesion. IMPRESSION: No acute abnormality is noted. <Electronically signed by Darnell Fox > 04/15/21 [id number]
[2021-04-15 17:23] LABS: RSV AMPLIFICATION NEGATIVE (NEGATIVE)
[2021-04-15] MEDS ORDERED: SODIUM CHLORIDE 0.9% INJ 10 ML SYR IV SCH (18:00)
--- NOTE | 2021-04-15 21:32 | REPVR ---
PROCEDURE INFORMATION: Exam: MR Right Lower Extremity Without Contrast, Femur Exam date and time: 04/15/2021 7:43 PM Age: 36 years old Clinical indication: Edema and swelling, leg or foot; Yes, it is localized; Patient HX: PT states pain, difficulty walking and collection soft tissue mass anterior thigh, site marked with markers per patient description of "mass". Since fall 4 days prior, unable to give contrast due to gfr of 8; Additional info: Collection soft tissue mass anterior thigh 17 cm in length TECHNIQUE: Imaging protocol: MR of the Right femur without contrast. COMPARISON: CR Femur 04/15/2021 3:06 PM FINDINGS: Bones/joints: No fracture or malalignment. Bone marrow signal is unremarkable. Muscles: Intramuscular edema in the anterior thigh musculature, worst in the rectus femoris, vastus medialis, and gracilis muscles. No intramuscular hematoma or mass. Mild edema in the gluteus edis muscle. Soft tissues: There is generalized subcutaneous edema. No drainable fluid collections. No mass or hematoma. IMPRESSION: 1. Intramuscular edema, predominantly in the anterior compartment of the thigh. Differential diagnostic considerations include muscle strain, myositis, or denervation. 2. Generalized subcutaneous edema. Electronically signed by: John Hernandez On 04/15/2021 21:31:23 PM
[2021-04-15] MEDS ORDERED: PIPERACILLIN/TAZOBACTAM SOD 3.375 GM in D5W MINI-BAG PLUS 50 ML IV ONE (22:00)
[2021-04-15] MEDS ORDERED: MOM 30ML SUSPENSION UDC PO PRN (22:00)
[2021-04-15] MEDS ORDERED: VANCOMYCIN HCL 1,000 MG, VIAL MATE ADAPTER 1 EACH in NS 250 ML IV SCH (22:00)
[2021-04-15] MEDS ORDERED: DEXTROSE 50% 50 ML SYRINGE IV PRN (22:00)
[2021-04-15] MEDS ORDERED: GLUCAGON INJ 1MG VIAL SC PRN (22:00)
[2021-04-15] MEDS ORDERED: HYDROMORPHONE HCL 0.5 MG/ 0.5 ML SYRINGE (J1170 PER 1) IV PRN ×2 (22:00)
[2021-04-15] MEDS ORDERED: GLUCOSE 4GM CHEW TABLET PO PRN (22:00)
[2021-04-15] MEDS ORDERED: MAALOX 30 ML SUSP *UDC PO PRN (22:00)
--- NOTE | 2021-04-15 22:05 | HPEPDOC ---
[facility] Medical History & Physical Date of Admission Apr 15, 2021 Date of Service: Apr 15, 2021 Other Provider Brissa Baer PA-C Attending Physician: MICHAEL GOLD MD History and Physical TIME OF SERVICE: 1057pm CHIEF COMPLAINT: leg pain HISTORY OF PRESENT ILLNESS: had a fall resulting in right thigh pain and was sent [facility] evaluation. US showed a mass of unclear etiology. discussed the findings w who recommend MRI to r/o soft tissue sarcoma, which would require transfer for a higher level of care prior to admission. Fortunately the MRI findings were more consistent w myositis therefore recommended admission and treatment with antibiotics, ID consult and pain meds. At the time of my evaluation her pain had resolved after she was given Dilaudid. REVIEW OF SYSTEMS: 12-point review of systems negative except as listed in HPI PMH/PSH: ESRD on HD MWF, IDDM1, peripheral neuropathy, proliferative retinopathy s/p photocoagulation, Hx of DKA, Pulm HTN (PASP 50s), Trace MVR, Trace AVR, Trace TVR, Chronic Thrombocytosis, HTN, Hx of C.difff, Siderosis, Chronic thrombocytosis, Anxiety, (C) section, Bilateral fifth metatarsal head amputations to manage osteomyelitis, Brain surgery for a cyst, Right AV Fistula placement, PermCath placement in R chest SOCIAL HISTORY: Employment: Unemployed, on disability currently, FAMILY HISTORY: Father: HTN, COPD / Mother: HTN, DM2 / Paternal grandmother: DM2 / Maternal grandmother: DM2, breast cancer / Maternal aunts: DM2 / Maternal uncle: Lung cancer ALLERGIES: Please see below. HOME MEDICATIONS: Please see below. PHYSICAL EXAMINATION: Vital Signs Date Time Temp Pulse Resp B/P (MAP) Pulse Ox O2 Delivery O2 Flow Rate FiO2 04/15/21 11:47 96.1 72 17 152/68 94 Room Air 04/15/21 22:34 1.0 GENERAL APPEARANCE: well nourished and developed /NAD HEENT: EOMI /+ scleral icterus CARDIOVASCULAR: RRR/NMRG LUNGS: CTAB on RA MUSCULOSKELETAL: NCAT /VENKATESH x4 / INTEGUMENT: hirsutism NEUROLOGICAL: CN 2-12 grossly intact /speech not dysarthric PSYCHIATRIC: asleep but arousable w vocal stimuli LABORATORY DATA: IMAGING: Vascular US IMPRESSION: 1. Due to exam limitations DVT cannot be ruled out. 2. Mixed echo mass of uncertain etiology as described above. Developing abscess, hematoma, or solid appearing mass cannot be ruled out. Further imaging with gadolinium enhanced MRI is recommended. Femur Xray IMPRESSION: No acute abnormality is noted. Lower extremity MRI IMPRESSION: 1. Intramuscular edema, predominantly in the anterior compartment of the thigh. Differential diagnostic considerations include muscle strain, myositis, or denervation. 2. Generalized subcutaneous edema. MICROBIOLOGY: respiratory panel neg ASSESSMENT: is a 36 yr old w ESRD on HD MWF, IDDM1, peripheral neuropathy, proliferative retinopathy s/p photocoagulation, Hx of DKA, Pulm HTN (PASP 50s), Trace MVR, Trace AVR, Trace TVR, Chronic Thrombocytosis, HTN, Hx of C.diff, Siderosis admitted for management of right thigh swelling. PLAN: 1 Right swelling Possibly post traumatic vs infectious myositis? Plan: admit to medical floor / per d/w will upgrade abx and ask the day time team to f/u w / f/u ESR, CRP, CPK LDH, and MEEK 2 Hyponatremia / Fluid overload 2/2 missing dialysis / ESRD Plan: Nephrology consult / Sevelamer 3 Left foot wound Plan: was on a cephalosporin and residing at a [facility] / upgrade to [facility] pending ID consult 4 IDDM1 with neuropathy, proliferative retinopathy s/p photocoagulation & hx o f DKA Plan: FSBS/ SSI / hypoglycemia protocol / 15 units of long acting insulin QHS 5 Resistant HTN Plan: Amlodipine , Carvedilol, Losartan, Metoprolol, Minoxidil, Clonidine 6 Anemia of chronic disease Plan: f/u CBC and w Nephro (not sure if she is on darbepoetin) 7 Class 1 obesity Complicates care DVT Px w Heparin Dispo: back to [facility] after more than 2 midnights stay Home Medications Scheduled Amlodipine Besylate (Amlodipine Besylate) 10 Mg Tablet, 10 MG PO DAILY Carvedilol (Carvedilol) 12.5 Mg Tablet, 12.5 MG PO BID Cefazolin Sodium (Cefazolin Sodium) 1 Gm Vial.port, 1 GM IV DAILY STARTED 04/05/21 FOR 18 DAYS Clonidine HCl (Clonidine HCl) 0.3 Mg Tablet, 0.3 MG PO DAILY Ergocalciferol (Vitamin D2) (Vitamin D2) 50,000 Units Cap, 50,000 UNITS PO QWEEK THURSDAY Heparin Sodium,Porcine/Pf (Heparin Lock Flush 10 Units/ml) 10 Unit/1 Ml Vial, 10 UNIT IV DAILY TO BE GIVEN AFTER CEFAZOLIN Hydralazine HCl (Hydralazine HCl) 25 Mg Tablet, 75 MG PO TID Insulin Glargine,Hum.rec.anlog (Basaglar Kwikpen U-100) 100 Unit/1 Ml Insuln.pen, 15 UNIT SC QPM Insulin Regular, Human (Novolin R) 100 Unit/1 Ml Vial, 1 DOSE SC AC PER SLIDING SCALE L.acidoph/L.bulg/B.bif/S.therm (Tonja-Bid Caplet) 1 Each Tablet, 1 TAB PO BID Losartan Potassium (Losartan Potassium) 100 Mg Tablet, 100 MG PO QHS Metoprolol Tartrate (Metoprolol Tartrate) 50 Mg Tablet, 50 MG PO BID Minoxidil (Minoxidil) 2.5 Mg Tablet, 2.5 MG PO BID Sevelamer Carbonate (Sevelamer Carbonate) 800 Mg Tablet, 1,600 MG PO WM WITH MEALS Scheduled PRN Baclofen (Baclofen) 10 Mg Tablet, 5 MG PO BID PRN for MUSCLE SPASMS Allergies Coded Allergies: cinacalcet (Verified Allergy, Unknown, 11/25/20) latex (Verified Allergy, Unknown, 11/03/19) peanut (Verified Allergy, Unknown, 11/25/20) TAPE (Verified Adverse Reaction, Intermediate, IRRITATES SKIN, 11/03/19) USE PAPER TAPE ONL;Y morphine (Verified Adverse Reaction, Mild, MILD PRURITIS, 03/28/21) per PATIENT 03/28/21 A-FIB/CHADSVASC A-FIB History Current/History of A-Fib/PAF?: No Current PO Anticoag Therapy: MICHAEL Pearl MD Apr 15, 2021 22:05
[2021-04-15] MEDS: HumaLOG INSULIN (NovoLOG) PER UNIT SC SCH (22:34)
[2021-04-15 23:45] VITALS: BP 178/79
[2021-04-16] MEDS: diphenhydrAMINE 25MG CAP PO PRN (00:57)
[2021-04-16] MEDS ORDERED: VANCOMYCIN HCL 750 MG, VIAL MATE ADAPTER 1 EACH in NS 250 ML IV ONE ×4 (01:00)
[2021-04-16] MEDS: minoxidiL 2.5 MG TAB PO SCH ×3 (02:40→21:04)
[2021-04-16] MEDS: **hydrALAZINE HCL** 25 MG TAB PO SCH ×4 (03:03→21:03)
[2021-04-16] MEDS: LOSARTAN 50MG TABLET PO SCH ×2 (03:04→21:04)
[2021-04-16] MEDS: CARVedilol 12.5 MG TAB PO SCH ×3 (03:04→21:03)
[2021-04-16] MEDS: METOPROLOL TART 50 MG TAB PO SCH ×3 (03:04→21:04)
[2021-04-16 03:25] LABS: HEMATOCRIT 27.9 % (36.0-47.0); HEMOGLOBIN 8.9 g/dl (12.0-15.5); MEAN CORPUSCULAR HEMOGLOBIN 31.6 pg (27.0-33.0); MEAN CORPUSCULAR HGB CONC 31.9 g/dl (32.0-36.5); MEAN CORPUSCULAR VOLUME 98.9 fl (80.0-96.0); PLATELET COUNT, AUTOMATED 399 10^3/uL (150-450); RED BLOOD COUNT 2.82 10^6/uL (4.00-5.40); WHITE BLOOD COUNT 9.4 10^3/uL (4.0-10.0)
[2021-04-16 03:51] LABS: ERYTHROCYTE SEDIMENTATION RATE 106 mm/hr (0-20)
[2021-04-16 04:11] LABS: ALBUMIN 2.3 GM/DL (3.2-5.2); BILIRUBIN,TOTAL 3.6 MG/DL (0.2-1.0); C REACTIVE PROTEIN QUANTITATIV 5.43 MG/DL (0.00-0.30); CALCIUM LEVEL 9.1 MG/DL (8.5-10.1); CREATININE FOR GFR 7.88 MG/DL (0.55-1.30); GLOMERULAR FILTRATION RATE 7.6 (>60); POTASSIUM SERUM 5.4 MEQ/L (3.5-5.1); TOTAL PROTEIN 7.4 GM/DL (6.4-8.2)
[2021-04-16 08:00] VITALS: BP 207/92
[2021-04-16] MEDS ORDERED: SODIUM CHLORIDE 0.9% 1000ML IV PRN (08:15)
[2021-04-16] MEDS ORDERED: DARBEPOETIN 200MCG/0.4ML *DIALYSIS* SYRINGE (J0882 PER 1MCG) IV SCH (08:15)
[2021-04-16] MEDS ORDERED: HYDROMORPHONE HCL 0.5 MG/ 0.5 ML SYRINGE (J1170 PER 1) IV PRN ×2 (08:25)
[2021-04-16] MEDS: cloNIDine 0.1MG TABLET PO SCH (08:55)
[2021-04-16] MEDS: (RENVELA) SEVELAMER **CARBONate** 800 MG TAB PO SCH ×3 (08:56→17:29)
[2021-04-16] MEDS: HumaLOG INSULIN (NovoLOG) PER UNIT SC SCH ×4 (08:57→21:00)
--- NOTE | 2021-04-16 11:56 | HPE ---
HISTORY AND PHYSICAL DATE OF ADMISSION: 04/15/2021 CHIEF COMPLAINT: Right thigh pain. HISTORY OF PRESENT ILLNESS: This 36-year-old female is in today for a thigh pain. She was transferred from an outpatient center in [place] to our emergency department to rule out a blood clot in her leg. The patient complains about a two-month history starting at the end of January of right thigh pain that has slowly been increasing. She states that she did have a fall at some point around that time. She has been receiving outpatient intravenous antibiotics for at least one or two months. She had at least two or three left foot surgeries including metatarsal head debridement; it sounds like by Dr. Mondragon, her clamshell operator. She does not have any fevers, chills or leg symptoms. She does notes that the leg hurts; it feels like a muscle cramp deep in the muscle on the right thigh. No other soreness or pain anywhere else in the knee or lower down, but she does have some pain in the anterior aspect of her right hip as well. MEDICAL HISTORY: She has a complex past medical history and for the full reports, see the hospitalist's note but briefly she does have type 1 diabetes, peripheral neuropathy, increased bilirubin, hypertensive urgency, chronic diabetic foot ulcer and osteomyelitis of the left foot, end-stage renal disease on hemodialysis, pulmonary hypertension, chronic thrombocytosis, history of Clostridium difficile (C. diff), anemia of chronic disease, hyponatremia and anxiety. Medications include antihypertensives and insulin. Again, for her full medication list, please see the hospitalist's report. ALLERGIES: TAPE, CINACALCET, LATEX, MORPHINE, PEANUT ALLERGY SURGICAL HISTORY: 1. Left foot toe amputations recently as one to two months ago. SOCIAL HISTORY: She is a nonsmoker. She does not abuse intravenous or other street drugs. She is unemployed. She was living with her brother. PHYSICAL EXAMINATION: Pacytz-akbd-uddc-old female. She appears uncomfortable. She complains of right thigh pain. Vital Signs: Pulse rate 71 / 91, respiratory rate 17, 100% on room air. There is no recent temperature recorded. Examination of Bilateral Lower Extremities: There is some slight warmth to her right thigh area. Compartments are soft albeit very slightly swollen. There is pain to palpation along the length of the quadriceps muscle. No pain with logrolling of hip or knee range of motion testing. No obvious effusion of the knee. Normal sensation in the dorsum and plantar aspect of the foot in the superficial and deep peroneal nerves as well as saphenous, sural and tibial. Strong tibialis posterior and dorsalis pedis pulses on both sides and comparable on both sides. She is able to get her toes stretched, flex, plantar flex and dorsiflex the foot. No pain on passive stretch of the knee, ankle or toes. LABORATORY EXAMINATION: Reveals white blood cell count 11.6, neutrophil percentage 77.3. ESR over 140. CRP 5.6. Alkaline phosphatase 1919. Blood cultures are pending. IMAGING STUDIES: Vascular ultrasound report states (1) Due to exam limitations, DVT cannot be ruled out. (2) Mixed echo mass of uncertain etiology as described above. Developing abscess, hematoma or solid-appearing mass cannot be ruled out. Further imaging with gadolinium-enhanced MRI is recommended. Femur radiograph report reveals no acute abnormality is noted. STAT lower extremity MRI including the head and femur was obtained that shows (1) Intramuscular edema predominantly in the anterior compartment of the thigh. Differential diagnosis considerations include muscle strain, myositis or denervation. (2) Generalized subcutaneous edema. No hematoma or mass. Mild edema in the gluteus edis muscle. No mass or hematoma. No drainable collections. ASSESSMENT AND PLAN: Bkdprr-fqbp-dkju-old female appears to have an infected myositis of the right thigh musculature. There is no evidence of drainable collection or fluid collections. I recommend admission to the hospitalist service and emergency consultation with the infectious disease specialist to determine the appropriate antibiotic regime and duration for this patient. For now, I see no role for acute surgical intervention. This was communicated directly to Dr. Garvey as well as Dr. Singh I also communicated this to the patient. They understand and had no further questions. HALLIE
[2021-04-16 14:41] VITALS: BP 181/79
[2021-04-16 16:00] VITALS: BP 149/65
[2021-04-16] MEDS ORDERED: VANCOMYCIN HCL 1,000 MG, VIAL MATE ADAPTER 1 EACH in NS 250 ML IV SCH (16:00)
[2021-04-16] MEDS ORDERED: **VANCO AFTER HD** MISC XX SCH (16:00)
--- NOTE | 2021-04-16 19:38 | IPNPDOC ---
Text Note Date of Service The patient was seen on 04/16/21. NOTE Subjective: Patient was seen and examined this morning at bedside. Patient tells me she's had this anterior right thigh pain for the past 2 months tells me he feels like a muscle cramp that won't go away. Tells me the pain is fluctuating at times is worse than others it ranges 2/10->7/10. No acute overnight events reported Objective: Constitutional: Awake and alert, in no apparent distress ENT: Sclera is icteric. Mucosa is moist. Respiratory: Lungs CTA bilaterally. No respiratory distress. On room air Cardiovascular: Regular rate and rhythm Gastrointestinal: Abdomen is soft, non distended, non tender, BS present. Musculoskeletal: No edema. Her right anterior thigh doesn't appear swollen. Palpation of the muscle is slightly tender in the muscle appears slightly more tense than on the left side. Neurologic: No focal neurological deficit. Mental Status: A&O x3, normal affect Assessment/plan: is a 36 yr old w ESRD on HD MWF, IDDM1, peripheral neuropathy, proliferative retinopathy s/p photocoagulation, Hx of DKA, Pulm HTN (PASP 50s), Trace MVR, Trace AVR, Trace TVR, Chronic Thrombocytosis, HTN, Hx of C.difff, Siderosis admitted for management of right thigh pain. # Right anterior thigh pain: no obvious swelling. Muscle feels somewhat tense. C ould be muscle stain. Head pads daily. Baclofen scheduled. Discussed with Dr Krishnamurthy, less likely infectious, also agrees could be muscle strain. MRI ruled out fluid collection that needs drainage. Leukocytosis resolved. Afebrile. # Hx of Staph aureus bacteremia and left foot osteomyelitis: Discussed with Dr Krishnamurthy, will continue her previous regiment of Cefazolin daily until April 22. # ESRD: nephron consult. Sevelamer. HD per nephro. # IDDM1 with neuropathy, proliferative retinopathy s/p photocoagulation & hx of DKA: FSBS. SSI. hypoglycemia protocol. 15U of long acting insulin QHS # Resistant HTN: Amlodipine , Carvedilol, Losartan, Metoprolol, Minoxidil, Clonidine monitor and titrate # Anemia of chronic disease: f/u CBC and w Nephro # DVT prophylaxis: Heparin A Yousef Hospitalist VS,Fishbone, I+O VS, Fishbone, I+O Laboratory Tests 04/16/21 03:11 04/16/21 03:12 Vital Signs Date Time Temp Pulse Resp B/P (MAP) Pulse Ox O2 Delivery O2 Flow Rate FiO2 04/16/21 17:29 149/65 04/16/21 16:00 98.5 75 14 96 Nasal Cannula 1.0 I&O- Last 24 Hours up to 6 AM 04/16/21 06:00 Intake Total 50 ml Balance 50 ml MATT NORTH MD Apr 16, 2021 19:38
[2021-04-16 20:25] VITALS: BP 153/93
[2021-04-16] MEDS: ceFAZolin SOD 1 GM in D5W MINI-BAG PLUS 50 ML IV SCH (21:03)
[2021-04-16] MEDS: BACLOFEN 5MG PER 1/2 TABLET PO SCH (21:03)
[2021-04-16] MEDS: ACETAMINOPHEN TAB 650MG DOSE (2X325MG) PO PRN (21:04)
[2021-04-16] MEDS ORDERED: NORCO, ANEXSIA 5/325MG TABLET (HYDROcodone/ACETAMINOPHEN) PO ONE (22:25)
[2021-04-16 23:00] VITALS: BP 141/70
--- NOTE | 2021-04-17 00:07 | CR ---
INFECTIOUS DISEASE CONSULTATION DATE: 04/16/2021 CONSULTATION REQUESTED BY: Dr. Salazar REASON FOR CONSULTATION: For evaluation of right thigh pain and myositis. HISTORY OF PRESENT ILLNESS: Mrs. Mireles is a 36-year-old female, well known to me from previous admissions, who was transferred from [facility] complaining of severe right thigh pain. The patient states that sometime in January she had fallen and since then her thigh has been hurting her, but it progressively got worse over the past week and therefore she was brought into the hospital. The patient did not have any fever or chills. No nausea, vomiting or diarrhea. No chest pain or shortness of breath. She had been on I.V. antibiotics with Cefazolin since hospitalization on 03/08/2021 when she was diagnosed with MSSA bacteremia with a negative transesophageal echocardiogram. She had a foot abscess and had a debridement with metatarsal head amputation done by Dr. Mondragon. Patient was scheduled to finish treatment with Cefazolin for osteomyelitis of the left foot on April 22. She was readmitted on 03/28/2021 again with foot abscess and noncompliance with medications. She was treated with Ceftaroline from March 28 to April 01 and then Cefazolin until April 04. She had a second debridement done of her left foot by Dr. Mondragon. Cultures were negative. She was admitted yesterday with severe thigh pain. She had an MRI in the Emergency Room which showed significant edema of the anterior muscles; worse in the rectus femoris, vastus medialis muscles. No hematoma. No masses. No drainable abscess. This edema could be muscle strain, myositis or denervation. Femur x-ray; there is no evidence of fracture or destructive osseous lesion, no acute abnormalities. Vascular ultrasound shows a complex hypoechoic area seen which measures 17.4 x 3.3 x 6.3 cm. DVT could not be ruled out. PAST MEDICAL HISTORY: Significant for insulin dependent diabetes with end-stage nephropathy on hemodialysis, peripheral neuropathy, retinopathy, status post photocoagulation, history of DKA, pulmonary hypertension, history of C. difficile, reactive thrombocytosis, anxiety, left foot MSSA abscess; status post amputation of the first metatarsal. PAST SURGICAL HISTORY: Brain surgery for a cyst as a child, AV fistula, right Permacath, debridement of the left foot and amputation fifth and first metatarsal done by Dr. Mondragon. FAMILY HISTORY: Hypertension, COPD and diabetes in her mom and dad. Her uncle had lung cancer. SOCIAL HISTORY: She is on disability. She has an 8-year-old child who lives with her. Sister is in the . She is not . She does not smoke or drink. ALLERGIES: Tape, latex, morphine, peanuts. LABORATORY DATA: White count yesterday 11.6; today 9.4, hemoglobin 8.9, hematocrit 27.9, platelets 399,000. ESR 106. Sodium 129, potassium 5.4, chloride 91, bicarb 26, BUN 68, creatinine 7.8, glucose 200. Lactic acid 0.7. Calcium 9.1. Total bilirubin 3.6. AST 270, ALT 39, alkaline phosphatase 1,746. LDH 330. CRP 5.43. Blood cultures two sets are no growth after 24 hours. SARS-CoV2 negative. Influenza A and B, RSV negative. MEEK pending. MEDICATIONS: 1. Vitamin D 50,000 units daily. 2. Baclofen 5 mg p.o. b.i.d. 3. Vancomycin 1 gram I.V. with dialysis. 4. Zosyn 2.25 grams I.V. every 12 hours. 5. Clonidine 0.3 mg p.o. daily. 6. Amlodipine 10 mg p.o. daily. 7. Aranesp 200 mcg I.V. daily. 8. Renvela 1,600 p.o. with meals. 9. Minoxidil 2.5 mg p.o. b.i.d. 10.Metoprolol 50 mg p.o. b.i.d. 11.Losartan 100 mg p.o. q.h.s. 12.Hydralazine 75 mg p.o. t.i.d. 13.Coreg 12.5 mg p.o. b.i.d. 14.Benadryl p.r.n. PHYSICAL EXAMINATION: GENERAL: A healthy looking lady in no acute distress. HEART: Normal S1, S2. Systolic ejection murmur 2/6 unchanged. LUNGS: Clear. No wheezes, rales or rhonchi. ABDOMEN: Distended with hepatomegaly. EXTREMITIES: No cyanosis, clubbing or edema. Left foot with an open incision between the first and second metatarsal; healing well, no purulence, the incision is about 2 cm. There is no surrounding cellulitis. Amputation of the fifth metatarsal healed. There is no cellulitis around the wound or the leg. Right thigh muscle tender to touch anteriorly only. There is no fluctuance or redness or warmth. The thigh circumference measures about 61 cm on the right side and 60 cm on the left. IMPRESSION: This is a 36-year-old female on I.V. Cefazolin for about 5 weeks for Staph Aureus bacteremia, MSSA and for osteomyelitis of the left foot and abscess from MSSA, who was admitted with right thigh pain and tenderness. She states she had a fall over 2 months ago. X-rays are negative. MRI is suggestive of myositis. There was concern about some fluid collection seen on ultrasound but not on MRI. She definitely has exquisite tenderness, but does not seem infectious in nature. It is not warm or red. PLAN: Continue with I.V. Cefazolin 1 gram every 24 hours. Discontinue I.V. Vancomycin and Zosyn. Blood cultures are negative. Consider muscle biopsy or possibility of aspiration to rule out infectious process. If no improvement with muscle relaxant, Baclofen 5 mg b.i.d. and a heating pad. He may also consider using a short course of anti-inflammatory. If there is no improvement, re-image with an ultrasound and possibly do an aspiration. HALLIE
[2021-04-17 06:00] VITALS: BP 149/72
[2021-04-17] MEDS: **hydrALAZINE HCL** 25 MG TAB PO SCH ×3 (06:11→20:12)
[2021-04-17] MEDS: BACLOFEN 5MG PER 1/2 TABLET PO SCH ×2 (06:12→19:39)
[2021-04-17] MEDS: cloNIDine 0.1MG TABLET PO SCH (06:12)
[2021-04-17] MEDS: METOPROLOL TART 50 MG TAB PO SCH ×2 (06:12→20:13)
[2021-04-17] MEDS: minoxidiL 2.5 MG TAB PO SCH ×2 (06:13→20:13)
[2021-04-17 08:31] LABS: BASO # 0.1 10^3/uL (0.0-0.2); BASO % 0.8 % (0.0-1.0); EOS # 0.4 10^3/uL (0.0-0.5); EOS % 4.4 % (0.0-3.0); HEMATOCRIT 28.9 % (36.0-47.0); HEMOGLOBIN 9.2 g/dl (12.0-15.5); LYMPH # 1.1 10^3/uL (1.5-5.0); LYMPH % 12.4 % (24.0-44.0); MEAN CORPUSCULAR HEMOGLOBIN 31.4 pg (27.0-33.0); MEAN CORPUSCULAR HGB CONC 31.8 g/dl (32.0-36.5); MEAN CORPUSCULAR VOLUME 98.6 fl (80.0-96.0); MONO # 0.9 10^3/uL (0.0-0.8); MONO % 10.6 % (2.0-8.0); NEUTROPHILS # 6.1 10^3/uL (1.5-8.5); NEUTROPHILS % 71.3 % (36.0-66.0); PLATELET COUNT, AUTOMATED 423 10^3/uL (150-450); RED BLOOD COUNT 2.93 10^6/uL (4.00-5.40); WHITE BLOOD COUNT 8.5 10^3/uL (4.0-10.0)
--- NOTE | 2021-04-17 08:43 | CR ---
CONSULTATION DATE: 04/16/2021 REQUESTING PHYSICIAN: Srinivasa Tee MD CONSULTING PHYSICIAN: Kitty Bates DO REASON FOR CONSULTATION: Management of end-stage renal disease on hemodialysis. HISTORY OF PRESENT ILLNESS: Narcisa Mireles is well known to me. She is a 36-year-old female with a past medical history of longstanding type 1 diabetes mellitus with diabetic retinopathy, diabetic nephropathy, diabetic neuropathy, end-stage renal disease on hemodialysis on a Thursday, Thursday, Thursday schedule, history of diabetic ketoacidosis, chronic thrombocytosis, history of C. diff, hypertension, anemia of chronic renal failure and other comorbid conditions mentioned below. The patient has recently had multiple recurrent hospitalizations and overall worsening health status including a liver biopsy earlier this year and severely elevated alkaline phosphatase levels. She came to the emergency room yesterday with complaint of right thigh pain associated with swelling in the right thigh as well. The exact etiology has not yet been determined and both surgical consult and infectious disease consult have been requested for further workup of her right thigh issues and nephrology evaluation was requested for management of her chronic renal failure. PAST MEDICAL HISTORY: 1. Type 1 diabetes, poorly controlled. 2. Diabetic neuropathy. 3. Diabetic nephropathy. 4. Diabetic retinopathy. 5. History of diabetic ketoacidosis. 6. End-stage renal disease on hemodialysis. 7. Secondary hyperparathyroidism of renal origin. 8. Anemia of chronic renal failure. 9. Chronic thrombocytosis. 10. Pulmonary hypertension. 11. Transaminitis/severely elevated alkaline phosphatase. 12. History of liver biopsy. 13. Systemic hypertension. 14. C. difficile colitis. 15. Diabetic foot ulcer. 16. Moderate tricuspid regurgitation. PAST SURGICAL HISTORY: 1. Liver biopsy. 2. section. 3. Bilateral fifth metatarsal head amputation. 4. Brain surgery for a cyst. 5. Right arm AV fistula. 6. Permacath placement. ALLERGIES: TAPE, CINACALCET, LATEX, MORPHINE, PEANUT. FAMILY HISTORY: Significant for diabetes and hypertension. PERSONAL AND SOCIAL HISTORY: She is currently in a rehabilitation center. She is single. She denies alcohol, drug or tobacco use. HOME MEDICATIONS: 1. Amlodipine 10 mg p.o. daily. 2. Aspirin 81 mg p.o. daily. 3. Calcitriol 0.25 mcg p.o. Thursday, Thursday, Thursday. 4. Clonidine 0.3 mg p.o. daily. 5. Vitamin D2 50,000 units q.weekly. 6. Hydralazine 25 mg p.o. three times a day. 7. Isosorbide mononitrate 30 mg daily. 8. Bacid one tab p.o. b.i.d. with meals. 9. Losartan 100 mg p.o. q.h.s. 10. Metoprolol 100 mg p.o. b.i.d. 11. Minoxidil 2.5 mg p.o. b.i.d. 12. Renvela 800 mg with snacks and 1500 mg with meals. REVIEW OF SYSTEMS: Constitutional: She reports generalized weakness, fatigue and malaise. HEENT: She denies visual changes but she reports mild icterus. She denies rhinorrhea or epistaxis. Cardiac: She denies chest pain or palpitations. Respiratory: She denies shortness of breath or cough. Gastrointestinal: She denies nausea, vomiting. She has a history of C. diff but no current diarrhea. Endocrine: She reports diabetes and secondary hyperparathyroidism. Hematologic: She reports thrombocytosis and anemia of chronic renal failure. Musculoskeletal: She reports right thigh pain and swelling and recent fall. Neurologic: She denies seizure or syncope. Psychiatric: She reports depression. Skin: She reports darkening of the skin and she also reports recent jaundice. The remainder of review of systems is negative or as per HPI. PHYSICAL EXAMINATION: Vital signs: Temperature 98.0, pulse 75, respiratory rate 16, blood pressure 153/93, saturating 97% on one liter nasal cannula. Dialysis today removed 2.5 liters. General: Patient is seen awake, alert, lying in bed in the hemodialysis unit receiving her treatment. No apparent distress. Eyes show icteric sclera. Tongue is moist. Neck is supple. Jugular veins are not elevated. There is a tunneled hemodialysis catheter presently in use. Lungs are clear to auscultation bilaterally. She has no respiratory distress, no crackle or wheeze. Heart sounds are regular S-1, S-2. There is no significant edema in the distal legs but there may be some mild swelling in the right thigh. Gastrointestinal: Abdomen is soft and nontender. Musculoskeletal: Trace edema in the distal legs. There is tenderness to palpation of the right thigh and the right also looks slightly swollen. Neurologic: She is oriented x3, interactive and appears to be at baseline mentation. Psychiatric: She appears depressed. LABORATORY DATA: Sodium 129, potassium 5.4, BUN 68. Lactic acid is less than 1. AST is 270. Alkaline phosphatase is 1700. Albumin is 2.3. Hemoglobin 8.9, platelets 399. Blood cultures: No growth, 24 hours x2 sets. Vascular ultrasound of the right lower extremity shows a mixed echo mass that could not be fully delineated as patient could not tolerate venous compression techniques. DVT could not be ruled out. MRI of the right lower extremity without contrast: Intramuscular edema in the anterior compartment of the thigh, generalized subcutaneous edema. INPATIENT MEDICATIONS: 1. Cephazolin 1 gm IV daily. 2. Vancomycin 750 mg IV x1. 3. Tylenol p.r.n. 4. [place] p.r.n. 5. Mylanta p.r.n. 6. Amlodipine 10 mg p.o. daily. 7. Baclofen 5 mg p.o. b.i.d. 8. Carvedilol 12.5 mg p.o. b.i.d. 9. Clonidine 0.3 mg p.o. daily. 10. Aranesp 200 mcg with dialysis. 11. Diphenhydramine p.r.n. 12. Hydralazine 75 mg p.o. three times a day. 13. Insulin. 14. Losartan 100 mg p.o. q.h.s. 15. Metoprolol 50 mg p.o. b.i.d. 16. Renvela 1600 mg p.o. with meals. 17. Vitamin D 50,000 units p.o. once weekly. PROBLEMS: 1. End-stage renal disease on hemodialysis on a Thursday, Thursday, Thursday schedule. The patient missed dialysis on Thursday. She was dialyzed today with 2.5 liters of fluid removed. She tolerated her treatment well. I will most likely dialyze her again tomorrow to bring her back to her usual Thursday, Thursday, Thursday schedule. 2. Hypertension. Blood pressures have improved with dialysis and fluid removal and also with control of her pain. She is presently receiving two beta blockers and I have gone ahead and stopped the carvedilol. She is also on metoprolol. She otherwise continues on amlodipine, clonidine, hydralazine, losartan and Minoxidil. She requires a multi-drug regimen for optimal blood pressure control. 3. Hyperkalemia. It was due to missed dialysis. She had a full four hour treatment today. She is on a renal diet. I expect the potassium will improve. 4. Hypervolemic hyponatremia. It should improve with dialysis and fluid removal. 5. Anemia of chronic renal failure. Iron stores were recently checked in the end of March and were acceptable. Aranesp was ordered with dialysis. I will transfuse for hemoglobin less than 8. 6. Transaminitis. She has severely elevated alkaline phosphatase level and her AST is also high. Her alkaline phosphatase on admission was 1900 and that looks like that is highest level she has ever had. This elevated alkaline phosphatase level has been going on for at least six months now. She has had a liver biopsy in the past. I do not think she has ever seen gastroenterology as an outpatient. Defer to primary service if she needs inpatient evaluation or not. 7. Right anterior thigh pain. Etiology is uncertain in the setting of very high alkaline phosphatase levels and elevated AST. Based on the MRI, it does not look to be infectious issue. I know primary team has called surgical and infectious disease consult. Thank you for involving me in the care of Narcisa and I will follow her along with you.
[2021-04-17 08:58] LABS: CALCIUM LEVEL 9.3 MG/DL (8.5-10.1); CREATININE FOR GFR 5.28 MG/DL (0.55-1.30)
[2021-04-17] MEDS: (RENVELA) SEVELAMER **CARBONate** 800 MG TAB PO SCH ×3 (09:04→18:18)
[2021-04-17] MEDS: ACETAMINOPHEN TAB 650MG DOSE (2X325MG) PO PRN ×2 (09:05→19:39)
[2021-04-17] MEDS: HumaLOG INSULIN (NovoLOG) PER UNIT SC SCH ×4 (09:05→20:24)
[2021-04-17] MEDS ORDERED: SODIUM CHLORIDE 0.9% 1000ML IV PRN (10:20)
[2021-04-17] MEDS ORDERED: SODIUM CHLORIDE 0.9% INJ 10 ML SYR IV PRN (12:25)
--- NOTE | 2021-04-17 13:11 | IPNPDOC ---
Text Note Date of Service The patient was seen on 04/17/21. NOTE Subjective: Patient was seen and examined this morning at bedside. She tells me that she has no pain in the anterior right thigh anymore after using the heating pads. She wasn't interested in using baclofen. She says she feels well and the pain is finally gone and she is prepared to go back to participate in rehabilitation. There is no acute overnight events reported to me. She is going to go for hemodialysis later today. Objective: Constitutional: Awake and alert, in no apparent distress ENT: Sclera is icteric. Mucosa is moist. Respiratory: Lungs CTA bilaterally. No respiratory distress. On room air Cardiovascular: Regular rate and rhythm Gastrointestinal: Abdomen is soft, non distended, non tender, BS present. Musculoskeletal: No edema. right anterior thigh not swollen, or red. Palpation of the muscle today appears to show no tenderness to light or deep palpation. Neurologic: No focal neurological deficit. Mental Status: A&O x3, normal affect Assessment/plan: is a 36 yr old w ESRD on HD MWF, IDDM1, peripheral neuropathy, proliferative retinopathy s/p photocoagulation, Hx of DKA, Pulm HTN (PASP 50s), Trace MVR, Trace AVR, Trace TVR, Chronic Thrombocytosis, HTN, Hx of C.difff, Siderosis admitted for management of right thigh pain. # Right anterior thigh pain: no obvious swelling or redness. Muscle feels tense. Working diagnosis is muscle strain as her pain completely resolved with head pad application. Head pads daily. Baclofen scheduled, although patient refused it. Discussed with Dr Krishnamurthy, not likely infectious, also agrees could be muscle strain. No leukocytosis. Afebrile. # Hx of Staph aureus bacteremia and left foot osteomyelitis: Discussed with Dr Krishnamurthy, will continue her previous regiment of Cefazolin daily until April 22. # ESRD: nephron consult. Sevelamer. HD per nephro. # IDDM1 with neuropathy, proliferative retinopathy s/p photocoagulation & hx of DKA: FSBS. SSI. hypoglycemia protocol. 15U of long acting insulin QHS # Resistant HTN: Amlodipine , Carvedilol, Losartan, Metoprolol, Minoxidil, Clonidine monitor and titrate # Anemia of chronic disease: f/u CBC and w Nephro # DVT prophylaxis: Heparin Dispo; will stay today for HD and [facility] Kiana SALINAS, I+O Kiana SALINAS I+O Laboratory Tests 04/17/21 07:58 Vital Signs Date Time Temp Pulse Resp B/P (MAP) Pulse Ox O2 Delivery O2 Flow Rate FiO2 04/17/21 06:12 88 04/17/21 06:11 149/72 04/17/21 06:00 97.8 17 94 Nasal Cannula 1.0 I&O- Last 24 Hours up to 6 AM 04/17/21 05:59 Intake Total 660 ml Output Total 2500 ml Balance -1840 ml MATT NORTH MD Apr 17, 2021 13:11
[2021-04-17 14:00] VITALS: BP 132/69
[2021-04-17 14:09] LABS: ANTINUCLEAR ANTIBODIES DIRECT Negative (Negative)
[2021-04-17] MEDS: SODIUM CHLORIDE 0.9% INJ 10 ML SYR IV SCH (18:19)
[2021-04-17] MEDS ORDERED: NORCO, ANEXSIA 5/325MG TABLET (HYDROcodone/ACETAMINOPHEN) PO ONE (20:05)
[2021-04-17] MEDS: diphenhydrAMINE 25MG CAP PO PRN (20:12)
[2021-04-17] MEDS: LOSARTAN 50MG TABLET PO SCH (20:13)
[2021-04-17] MEDS: ceFAZolin SOD 1 GM in D5W MINI-BAG PLUS 50 ML IV SCH (20:14)
[2021-04-17 21:09] VITALS: BP 156/89
--- NOTE | 2021-04-17 23:23 | IPN ---
NEPHROLOGY PROGRESS NOTE DATE: 04/17/2021 SUBJECTIVE: I saw Narcisa this morning at the bedside. She reports that her right thigh pain is much improved with oral opioid. She denies any other complaints. She was dialyzed yesterday and I asked her if we can dialyze again today to keep her on her usual maintenance schedule of Thursday, Thursday, Thursday. She was agreeable and so the patient was seen later this afternoon in the hemodialysis unit receiving her treatment. OBJECTIVE: VITAL SIGNS: Temperature 97.9, pulse 60, respiratory rate 18, blood pressure 132/60, saturating 100% on 2 liters nasal cannula. INTAKE AND OUTPUT: Intake yesterday was only recorded as 660 mL. Dialysis yesterday removed 2.5 liters. Dialysis today removed 2 liters. Weight in the bed scale today was 100.9 kg. GENERAL APPEARANCE: The patient is seen awake, alert, oriented, comfortable and in no distress. HEENT: There is mild bilateral icteric sclerae. Tongue is moist. NECK: Supple. Nasal cannula is in place. Jugular veins are not elevated. HEART: Regular. S1, S2, there is trace leg edema. LUNGS: Symmetric air sounds bilaterally. No crackles or rales. She is comfortable on room air at the time of my visit. ABDOMEN: Soft and nontender. CHEST: Dialysis access there is a permacath in the right chest wall, presently in use in the dialysis unit. EXTREMITIES: I did not examine her right thigh fully today but she had no tenderness to palpation in the area that was tender yesterday. NEUROLOGICAL: She is oriented x3, no focal deficits, at baseline mentation. LABORATORY STUDIES: White count 8.5, hemoglobin 9.2, platelet count 423, sodium 131, potassium 5.0, bicarbonate 24, total bilirubin 3.6. Blood cultures no growth 48 hours x2 sets. CURRENT INPATIENT MEDICATIONS: The patient's medications were reviewed by myself. She is on: 1. IV Cefazolin. 2. She was started on Hydrocodone by the Primary Service. The remainder of medications are all unchanged as compared to yesterday. PROBLEMS: 1. End-stage renal disease on hemodialysis on a Thursday, Thursday, Thursday schedule - The patient was dialyzed yesterday, as she missed her treatment on Thursday. We removed 2.5 liters yesterday. I dialyzed her again today to keep her on her usual maintenance schedule and another 2 liters of fluid were removed. Her next treatment will be on Thursday, likely as an outpatient. Her electrolytes and volume status are acceptable. She needs to follow up for a fistula creation as an outpatient when she is more stable. 2. Hypertension - blood pressures are acceptable. She was dialyzed yesterday and dialyzed again today. We removed a total of 4.5 liters of fluid. She requires a multi-drug regimen for blood pressure control. She was accidentally on two beta blockers and I stopped the Carvedilol. She continues on Metoprolol, Amlodipine, Clonidine, Hydralazine, Losartan and Minoxidil. 3. Hyperkalemia potassium is 5.0. Today she is being dialyzed again. She is on a renal diet. 4. Anemia of chronic renal failure iron stores were checked recently at the end of March and were acceptable. She is receiving Aranesp with dialysis. There is no need for transfusion at present. 5. Hypervolemic hyponatremia she was dialyzed on Thursday and Thursday with a total of 4.5 liters of fluid removed. She continues on an oral fluid restriction.
[2021-04-18] MEDS: ACETAMINOPHEN TAB 650MG DOSE (2X325MG) PO PRN ×3 (00:57→15:33)
[2021-04-18 05:11] VITALS: BP 156/83
[2021-04-18] MEDS: SODIUM CHLORIDE 0.9% INJ 10 ML SYR IV SCH (05:11)
[2021-04-18 05:35] LABS: BASO # 0.1 10^3/uL (0.0-0.2); BASO % 0.8 % (0.0-1.0); EOS # 0.3 10^3/uL (0.0-0.5); EOS % 3.6 % (0.0-3.0); HEMATOCRIT 28.8 % (36.0-47.0); LYMPH # 1.1 10^3/uL (1.5-5.0); LYMPH % 11.4 % (24.0-44.0); MEAN CORPUSCULAR HGB CONC 31.3 g/dl (32.0-36.5); MEAN CORPUSCULAR VOLUME 99.3 fl (80.0-96.0); MONO # 0.8 10^3/uL (0.0-0.8); NEUTROPHILS # 6.9 10^3/uL (1.5-8.5); NEUTROPHILS % 74.8 % (36.0-66.0); PLATELET COUNT, AUTOMATED 450 10^3/uL (150-450); WHITE BLOOD COUNT 9.3 10^3/uL (4.0-10.0)
[2021-04-18 05:56] LABS: CREATININE FOR GFR 3.98 MG/DL (0.55-1.30); GLOMERULAR FILTRATION RATE 16.6 (>60); POTASSIUM SERUM 4.5 MEQ/L (3.5-5.1)
[2021-04-18] MEDS: HumaLOG INSULIN (NovoLOG) PER UNIT SC SCH ×2 (07:30→12:47)
[2021-04-18 08:57] VITALS: BP 156/78
[2021-04-18] MEDS: minoxidiL 2.5 MG TAB PO SCH (08:57)
[2021-04-18] MEDS: **hydrALAZINE HCL** 25 MG TAB PO SCH (08:57)
[2021-04-18] MEDS: (RENVELA) SEVELAMER **CARBONate** 800 MG TAB PO SCH ×2 (08:58→12:46)
[2021-04-18] MEDS: METOPROLOL TART 50 MG TAB PO SCH (08:58)
[2021-04-18] MEDS: BACLOFEN 5MG PER 1/2 TABLET PO SCH (08:58)
[2021-04-18] MEDS: cloNIDine 0.1MG TABLET PO SCH (08:59)
[2021-04-18] MEDS ORDERED: BACL10TA2 PO (10:56)
--- NOTE | 2021-04-18 10:57 | DS.PDOC ---
Discharge Summary General Date of Admission Apr 15, 2021 at 21:58 Date of Discharge 04/18/21 Discharge Summary PROCEDURES PERFORMED DURING STAY: [None]. ADMITTING/DISCHARGE DIAGNOSES: 1. Right anterior thigh pain likely muscle sprain COMPLICATIONS/CHIEF COMPLAINT: Myositis. HISTORY OF PRESENT ILLNESS/HOSPITAL COURSE: is a 36 yr old w ESRD on HD MWF, IDDM1, peripheral neuropathy, proliferative retinopathy s/p photocoagulation, Hx of DKA, Pulm HTN (PASP 50s), Trace MVR, Trace AVR, Trace TVR, Chronic Thrombocytosis, HTN, Hx of C.difff, transferred from [facility] for management of right thigh pain. # Right anterior thigh pain: no obvious swelling or redness. Muscle feels tense. Working diagnosis is muscle strain as her pain completely resolved with head pad application. Head pads daily. Baclofen scheduled, although patient refused it. Discussed with Dr Krishnamurthy, not likely infectious, also agrees could be muscle strain. No leukocytosis. Afebrile. # Hx of Staph aureus bacteremia and left foot osteomyelitis: Discussed with Dr Krishnamurthy, will continue her previous regiment of Cefazolin daily until April 22. DISCHARGE MEDICATIONS: Please see below. ALLERGIES: Please see below. PHYSICAL EXAMINATION ON DISCHARGE: VITAL SIGNS: Please see below. Constitutional: Awake and alert, in no apparent distress ENT: Sclera is icteric. Mucosa is moist. Respiratory: Lungs CTA bilaterally. No respiratory distress. On room air Cardiovascular: Regular rate and rhythm Gastrointestinal: Abdomen is soft, non distended, non tender, BS present. Musculoskeletal: No edema. right anterior thigh not swollen, or red. Palpation of the muscle today appears to show no tenderness to light or deep palpation. Neurologic: No focal neurological deficit. Mental Status: A&O x3, normal affect LABORATORY DATA: Please see below. IMAGING: see chart PROGNOSIS: fair ACTIVITY: [As tolerated]. DIET: Consistent carbohydrate DISPOSITION: back to [facility] to resume rehab DISCHARGE INSTRUCTIONS: continue rehab at [facility]. Please follow up with your primary care physician within 1 week from discharge. If you do not have one, please follow up with us to schedule an appointment. Please keep all of your follow up appointments. Please call central to book your appointments with hospital specialists. Please take all your medications as prescribed. Please call/come to Clinic or go to the Emergency Department if - Temp >101, intractable Nausea/Vomiting, Diarrhea, Mouth sores, Headaches, Altered mental status, Seizures, sudden onset of swelling, bleeding, shortness of breath or chest pain. DISCHARGE CONDITION: [Stable]. TIME SPENT ON DISCHARGE: 35 minutes. Vital Signs/I&Os Vital Signs Date Time Temp Pulse Resp B/P (MAP) Pulse Ox O2 Delivery O2 Flow Rate FiO2 04/18/21 08:57 156/78 04/18/21 08:57 76 04/18/21 06:00 97.9 18 98 Room Air 04/17/21 20:12 2.0 I&O- Last 24 Hours up to 6 AM 04/18/21 06:00 Intake Total 1330 ml Output Total 2000 ml Balance -670 ml Laboratory Data Labs 24H Laboratory Tests 2 04/17/21 11:50: Bedside Glucose (Misc Panel) 235H 04/17/21 18:11: Bedside Glucose (Misc Panel) 134H 04/17/21 20:23: Bedside Glucose (Misc Panel) 93 04/18/21 05:18: Immature Granulocyte % (Auto) 0.4, Neutrophils (%) (Auto) 74.8H, Lymphocytes (%) (Auto) 11.4L, Monocytes (%) (Auto) 9.0H, Eosinophils (%) (Auto) 3.6H, Basophils (%) (Auto) 0.8, Neutrophils # (Auto) 6.9, Lymphocytes # (Auto) 1.1L, Monocytes # (Auto) 0.8, Eosinophils # (Auto) 0.3, Basophils # (Auto) 0.1, Nucleated Red Blood Cells % (auto) 0.0, Anion Gap 10, Glomerular Filtration Rate 16.6L, Calcium Level 9.0 04/18/21 09:31: Coronavirus (COVID-19)(PCR) NEGATIVE CBC/BMP Laboratory Tests 04/18/21 05:18 FSBS Laboratory Tests Test 04/17/21 11:50 04/17/21 18:11 04/17/21 20:23 Range/Units Bedside Glucose (Misc Panel) 235 134 93 70-105 MG/DL Microbiology Microbiology 04/15/21 Blood Culture - Preliminary, Resulted No Growth after 48 hours. All Specime... 04/15/21 Blood Culture - Preliminary, Resulted No Growth after 48 hours. All Specime... Discharge Medications Scheduled Amlodipine Besylate (Amlodipine Besylate) 10 Mg Tablet, 10 MG PO DAILY, (Reported) Carvedilol (Carvedilol) 12.5 Mg Tablet, 12.5 MG PO BID, (Reported) Cefazolin Sodium (Cefazolin Sodium) 1 Gm Vial.port, 1 GM IV DAILY, (Reported) STARTED 04/05/21 FOR 18 DAYS Clonidine HCl (Clonidine HCl) 0.3 Mg Tablet, 0.3 MG PO DAILY, (Reported) Ergocalciferol (Vitamin D2) (Vitamin D2) 50,000 Units Cap, 50,000 UNITS PO QWEEK, (Reported) THURSDAY Heparin Sodium,Porcine/Pf (Heparin Lock Flush 10 Units/ml) 10 Unit/1 Ml Vial, 10 UNIT IV DAILY, (Reported) TO BE GIVEN AFTER CEFAZOLIN Hydralazine HCl (Hydralazine HCl) 25 Mg Tablet, 75 MG PO TID, (Reported) Insulin Glargine,Hum.rec.anlog (Basaglar Kwikpen U-100) 100 Unit/1 Ml Insuln.pen, 15 UNIT SC QPM, (Reported) Insulin Regular, Human (Novolin R) 100 Unit/1 Ml Vial, 1 DOSE SC AC, (Reported) PER SLIDING SCALE L.acidoph/L.bulg/B.bif/S.therm (Tonja-Bid Caplet) 1 Each Tablet, 1 TAB PO BID, (Reported) Losartan Potassium (Losartan Potassium) 100 Mg Tablet, 100 MG PO QHS, (Reported) Metoprolol Tartrate (Metoprolol Tartrate) 50 Mg Tablet, 50 MG PO BID, (Reported) Minoxidil (Minoxidil) 2.5 Mg Tablet, 2.5 MG PO BID, (Reported) Sevelamer Carbonate (Sevelamer Carbonate) 800 Mg Tablet, 1,600 MG PO WM, (Reported) WITH MEALS Scheduled PRN Baclofen (Baclofen) 10 Mg Tablet, 5 MG PO BID PRN for MUSCLE SPASMS Allergies Coded Allergies: cinacalcet (Verified Allergy, Unknown, 11/25/20) latex (Verified Allergy, Unknown, 11/03/19) peanut (Verified Allergy, Unknown, 11/25/20) TAPE (Verified Adverse Reaction, Intermediate, IRRITATES SKIN, 11/03/19) USE PAPER TAPE ONL;Y morphine (Verified Adverse Reaction, Mild, MILD PRURITIS, 03/28/21) per PATIENT 03/28/21 MATT NORTH MD Apr 18, 2021 10:57
[2021-04-18 14:00] VITALS: BP 155/89
[2021-04-18 16:11] LABS: C REACTIVE PROTEIN QUANTITATIV 6.83 MG/DL (0.00-0.30)
--- NOTE | 2021-04-18 17:47 | IPN ---
PROGRESS NOTE DATE: 04/18/2021 SUBJECTIVE: The patient is seen and examined this morning at the bedside. She offers no complaints. She was dialyzed the past two days [id number]. She denies any shortness of breath. She is not requiring any supplemental oxygen. She reports her right thigh pain is improved. OBJECTIVE: Temperature 97.5, pulse 78, respiratory rate 16, blood pressure 166/89, saturating 96% on room air. Weight in the bed scale today is 98.7 kg. General: The patient is seen lying in bed drowsy, but arousable, oriented x3. There is scleral icterus. Tongue is moist. Neck is supple. Jugular veins are not elevated. Heart sounds are regular. S1, S2. There is no leg edema. Lungs are clear to auscultation bilaterally. No crackles or rales. Breathes comfortable on room air. Abdomen is soft and nontender. There are bowel sounds and there is a permacath present in the right chest wall with dressing. Extremities are negative for edema or clubbing. She had no tenderness of the right thigh with pressure. LABORATORY DATA: White count 9.3, hemoglobin 9.0. Sodium 131, potassium 4.5. Blood cultures drawn on April 15 have no growth for 72 hours times two sets. I Inpatient medications reviewed by myself. No changes are noted over the past day. She had another dose of hydrocodone yesterday by the primary team. PROBLEMS: 1. End-stage renal disease on hemodialysis on a Thursday, Thursday, Thursday schedule. The patient was dialyzed on this hospital stay on Thursday and Thursday. Her next dialysis will be on Thursday, likely as an outpatient. Her electrolytes and volume status are all fairly acceptable and no change is being made to the chronic dialysis prescription. 2. Hypervolemic, hyponatremia. It has improved with dialysis and fluid removal. She should follow a low sodium diet with moderate fluid restriction as an outpatient and continue with her three times weekly dialysis treatment. 3. Hypertension. Systolic blood pressure is 130s to 150s. She is on a multidrug regimen and I am making no change to the medications. 4. Anemia of chronic renal failure. Hemoglobin is 9.0 on the latest labs. Old hemoglobin was 10 to 11. She continues on Aranesp with dialysis. Her iron stores were checked recently and were acceptable. 5. Right thigh pain. It has improved with opioid administration. It is managed as per primary service and no infectious disease input as well. 6. Transaminitis with elevated AST and elevated alkaline phosphatase at least for the past six months. Again, defer to the primary service.
[2021-04-19] MEDS ORDERED: VITAMIN D 50,000 UNITS CAPSULE (ERGOCALCIFEROL 1.25MG) PO SCH (09:00)
== END 2021-04-18 16:09 | DRG 555 ==
LOC: M ED 11:39 → M ED INP 21:58 → M PCU 23:43 → M MSPAV 04-16 23:00
PROVIDERS: ADMIT Internal Medicine; ATTEND Family Medicine
PROC: 5A1D70Z Performance of Urinary Filtration, Intermittent, Less than 6 Hours Per Day (ICD-10-PCS; principal; 2021-04-16)
DX: M60.851 Other myositis, right thigh (principal); N18.6 End stage renal disease; I12.0 Hypertensive chronic kidney disease with stage 5 chronic kidney disease or end stage renal disease; E87.1 Hypo-osmolality and hyponatremia; Z99.2 Dependence on renal dialysis; E10.22 Type 1 diabetes mellitus with diabetic chronic kidney disease; E10.42 Type 1 diabetes mellitus with diabetic polyneuropathy; I27.20 Pulmonary hypertension, unspecified; D47.3 Essential (hemorrhagic) thrombocythemia; F41.9 Anxiety disorder, unspecified; D63.1 Anemia in chronic kidney disease; E66.9 Obesity, unspecified; Z79.899 Other long term (current) drug therapy; Z79.4 Long term (current) use of insulin; Z91.040 Latex allergy status; Z91.010 Allergy to peanuts; Z88.5 Allergy status to narcotic agent; Z88.8 Allergy status to other drugs, medicaments and biological substances; Z89.422 Acquired absence of other left toe(s); E10.69 Type 1 diabetes mellitus with other specified complication; E10.621 Type 1 diabetes mellitus with foot ulcer; I07.1 Rheumatic tricuspid insufficiency; E87.5 Hyperkalemia; R74.01 Elevation of levels of liver transaminase levels; Z20.822 Contact with and (suspected) exposure to COVID-19

== ENCOUNTER 2021-04-21 22:51 | Inpatient (IN) | payer MEDICARE, MEDICAID ==
[~2021-04-21] VITALS: Ht 175.3 cm; Wt 91.8 kg
[~2021-04-21 22:51] MED LIST changes: +BACL10TA2 PO; +CEFA1INJ5 IV; +METO50TA7 PO; +NOVOINJ12 SC; +[UNRECOGNIZED DRUG - CODE] IV
[2021-04-22 00:17] LABS: BASO # 0.1 10^3/uL (0.0-0.2); BASO % 0.7 % (0.0-1.0); EOS # 0.5 10^3/uL (0.0-0.5); EOS % 5.1 % (0.0-3.0); HEMATOCRIT 30.6 % (36.0-47.0); HEMOGLOBIN 9.7 g/dl (12.0-15.5); LYMPH # 0.9 10^3/uL (1.5-5.0); LYMPH % 9.4 % (24.0-44.0); MEAN CORPUSCULAR HEMOGLOBIN 31.9 pg (27.0-33.0); MEAN CORPUSCULAR HGB CONC 31.7 g/dl (32.0-36.5); MEAN CORPUSCULAR VOLUME 100.7 fl (80.0-96.0); MONO # 0.6 10^3/uL (0.0-0.8); MONO % 6.6 % (2.0-8.0); NEUTROPHILS % 77.8 % (36.0-66.0); PLATELET COUNT, AUTOMATED 531 10^3/uL (150-450); RED BLOOD COUNT 3.04 10^6/uL (4.00-5.40)
[2021-04-22 00:35] LABS: ALBUMIN 2.5 GM/DL (3.2-5.2); BILIRUBIN,DIRECT 2.4 MG/DL (0.0-0.2); CALCIUM LEVEL 9.3 MG/DL (8.5-10.1); CREATININE FOR GFR 6.34 MG/DL (0.55-1.30); GLOMERULAR FILTRATION RATE 9.7 (>60); POTASSIUM SERUM 5.3 MEQ/L (3.5-5.1); THYROID STIMULATING HORMONE 5.5 uIU/ML (0.358-3.740)
[2021-04-22 00:42] LABS: RSV AMPLIFICATION NEGATIVE (NEGATIVE)
[2021-04-22] MEDS ORDERED: cloNIDine 0.1MG TABLET PO ONE (02:05)
[2021-04-22] MEDS ORDERED: **hydrALAZINE HCL** 25 MG TAB PO ONE (02:05)
[2021-04-22] MEDS ORDERED: HumuLIN R (REGULAR) INSULIN (NovoLIN R) **100U/ML** PER UNIT IV STA (02:19)
[2021-04-22] MEDS ORDERED: HumuLIN R (REGULAR) INSULIN (NovoLIN R) **100U/ML** PER UNIT IV ONE (02:20)
--- NOTE | 2021-04-22 02:59 | REPVR ---
PROCEDURE INFORMATION: Exam: CT Head Without Contrast Exam date and time: 04/22/2021 2:20 AM Age: 36 years old Clinical indication: Seizure witnessed x 2 TECHNIQUE: Imaging protocol: Computed tomography of the head without contrast. Radiation optimization: All CT scans at this facility use at least one of these dose optimization techniques: automated exposure control; mA and/or kV adjustment per patient size (includes targeted exams where dose is matched to clinical indication); or iterative reconstruction. COMPARISON: 1. CT Head without contrast 03/26/2019 8:18 PM 2. MRI-Brain without Contrast 01/05/2019 6:07:54 PM FINDINGS: Brain: There is no CT evidence for an acute large vessel territorial infarct. No acute intracranial hemorrhage is seen. There is an arachnoid cyst in the posterior fossa predominantly in the right retrocerebellar region, which displaces the vermis to the left of midline and measures up to 7.6 cm and is stable compared to the prior CT head on 03/26/2019 and MRI brain on 01/05/2019. Cerebral ventricles: There is chronic moderate dilation of the lateral ventricles and 3rd ventricle, which is stable compared to the prior CT head on 03/26/2019 and 01/05/2019. Paranasal sinuses: The imaged portions of the sinuses are well aerated. No air-fluid levels are noted in the sinuses. Mastoid air cells: The mastoid air cells are well aerated. Bones/joints: The skull is intact. No suspicious osteolytic or osteoblastic lesion. Soft tissues: Unremarkable. IMPRESSION: 1. No acute intracranial abnormality. 2. Chronic moderate dilation of the lateral ventricles and 3rd ventricle, which is stable compared to the prior CT head on 03/26/2019 and MRI brain on 01/05/2019. 3. Chronic arachnoid cyst in the posterior fossa that measures up to 7.6 cm and is stable compared to the prior CT head on 03/26/2019 and MRI brain on 01/05/2019. Electronically signed by: Garland Love On 04/22/2021 02:59:14 AM
[2021-04-22] MEDS ORDERED: MAALOX 30 ML SUSP *UDC PO PRN (05:50)
[2021-04-22] MEDS ORDERED: LORazepam 2 MG/ML VIAL IV PRN (05:50)
[2021-04-22] MEDS ORDERED: MOM 30ML SUSPENSION UDC PO PRN (05:50)
[2021-04-22] MEDS: HEPARIN SOD (PORCINE) 5000UNITS/ML 1ML VIAL/SYRINGE SC SCH ×3 (06:00→21:50)
[2021-04-22] MEDS ORDERED: med rec comment (06:09)
--- NOTE | 2021-04-22 06:28 | HPEPDOC ---
[facility] Medical History & Physical Date of Admission Apr 22, 2021 Date of Service: Apr 22, 2021 Other Provider Carolann Baer Pa-C Attending Physician: MICHAEL GOLD MD History and Physical TIME OF SERVICE: 615am CHIEF COMPLAINT: seizures HISTORY OF PRESENT ILLNESS: was sent from her NH in [place] for evaluation of seizures; apparently the seizures started around April 12 prior to her recent admission for right anterior thigh pain but she didnt mention this. She had another seizure Thursday morning at around 9AM, vomited after eating breakfast and had a 3rd seizure that was witnessed by [facility] staff prior to transfer to the ER. She is also c/o new tightness and numbness in her feet, new hand tremors and feels like her speech is slow. REVIEW OF SYSTEMS: 10-point review of systems negative except as listed in HPI PAST MEDICAL/ SURGICAL HISTORY: ESRD on HD MWF, IDDM1, peripheral neuropathy, proliferative retinopathy s/p photocoagulation, Hx of DKA, Pulm HTN (PASP 50s), Trace MVR, Trace AVR, Trace TVR, Chronic Thrombocytosis, HTN, Hx of C.difff,, Chronic thrombocytosis, Anxiety, (C) section, Bilateral fifth metatarsal head amputations to manage osteomyelitis, Unspecified Brain surgery to resect a arachnoid ? cyst, Right AV Fistula placement, PermCath placement SOCIAL HISTORY: Employment: Unemployed, on disability, resides at [facility] FAMILY HISTORY: Father: HTN, COPD / Mother: HTN, DM2 / Paternal grandmother: DM2 / Maternal grandmother: DM2, breast cancer / Maternal aunts: DM2 / Maternal uncle: Lung cancer ALLERGIES: Please see below. HOME MEDICATIONS: Please see below. PHYSICAL EXAMINATION: VITAL SIGNS: Please see below. GENERAL APPEARANCE: well-nourished and developed / NAD HEENT: EOMI no nystagmus / MM very dry but pink / marked scleral icterus CARDIOVASCULAR: RRR/NMRG / + 2 BLE edema LUNGS: CTAB on RA ABDOMEN: contour convex MUSCULOSKELETAL: NCAT / ROMIx 4 INTEGUMENT: hirsutism / xerosis affecting BLE NEUROLOGICAL: CN 2-12 intact / speech not dysarthric / strength 4/5 in upper extremities / she has bilateral asterixis PSYCHIATRIC: A&O x3 / able to comprehend but verbal response is slow LABORATORY DATA: Immature Granulocyte % (Auto) 0.4, Neutrophils (%) (Auto) 77.8H, Lymphocytes (%) (Auto) 9.4L, Monocytes (%) (Auto) 6.6, Eosinophils (%) (Auto) 5.1H, Basophils (%) (Auto) 0.7, Neutrophils # (Auto) 7.0, Lymphocytes # (Auto) 0.9L, Monocytes # (Auto) 0.6, Eosinophils # (Auto) 0.5, Basophils # (Auto) 0.1, Nucleated Red Blood Cells % (auto) 0.0, Anion Gap 11, Glomerular Filtration Rate 9.7L, Calcium Level 9.3, Total Bilirubin 3.0H, Direct Bilirubin 2.4H, Aspartate Amino Transf (AST/SGOT) 69H, Alanine Aminotransferase (ALT/SGPT) 13, Alkaline Phosphatase 1538H, Total Protein 8.0, Albumin 2.5L, Albumin/Globulin Ratio 0.5L, Lipase 104, Thyroid Stimulating Hormone (TSH) 5.500H 04/21/21 23:31: Lactic Acid Level 1.3, Ammonia 29, Coronavirus (COVID-19)(PCR) NEGATIVE, Influenza Type A (RT-PCR) NEGATIVE, Influenza Type B (RT-PCR) NEGATIVE, Respiratory Syncytial Virus (PCR) NEGATIVE IMAGING: CT head IMPRESSION: 1. No acute intracranial abnormality. 2. Chronic moderate dilation of the lateral ventricles and 3rd ventricle, which is stable compared to the prior CT head on 03/26/2019 and MRI brain on 01/05/2019. 3. Chronic arachnoid cyst in the posterior fossa that measures up to 7.6 cm and is stable compared to the prior CT head on 03/26/2019 and MRI brain on 01/05/2019. MICROBIOLOGY: respiratory panel neg ASSESSMENT: is a 36 yr old w ESRD on HD MWF, IDDM1, peripheral neuropathy, proliferative retinopathy s/p photocoagulation, Hx of DKA, Pulm HTN (PASP 50s), Trace MVR, Trace AVR, Trace TVR, anemia of chronic disease, Chronic Thrombocytosis, HTN, Hx of C.diff, who is admitted evaluation of seizures. PLAN: 1 Seizure Plan: admit to medical floor / fall precautions/ seizure precautions/ frequent neuro checks / will ask they day time team to consider a Neuro consult, will hold off starting Keppra for now bc this will likely need to be renally dosed / f/u prolactin, EEG / Ativan 2mg IV Q2H PRN seizures 2 Left foot wound Plan: c/w Cefazolin 3 Uncontrolled HTN Plan: Amlodipine , Metoprolol, Losartan, Minoxidil, Clonidine (d/c Coreg Dr.W Bates pointed out on her last consult that the patient was on two beta blockers) 4 Fluid overload 2/2 ESRD Plan: Nephrology consult / c/w Sevelamer 5 IDDM1 with neuropathy, proliferative retinopathy s/p photocoagulation & hx of DKA Despite high sugars in the ER she didnt meet criteria to diagnose DKA/ she received insulin Plan: FSBS/ SSI / hypoglycemia protocol / 15 units of long acting insulin QHS 6 Anemia of chronic disease Plan: f/u CBC 7 Transaminitis The case discussed with Dr. Cabrera who thought this was likely congestive hepatopathy ? based on biopsy results Liver pathology from [facility] 02/08/21: Benign liver parenchyma with dilated sinusoids, with perivenular/perisinusoidal fibrosis, suggestive of venous outflow obstruction. The iron stain shows increased iron, mostly in Kupfer cells, consistent with moderate siderosis. 8 Thrombocytopenia Likely due to reduced thrombopotein production due to liver congestion 9 Anxiety Plan: Hydroxyzine 10 Class 1 obesity Complicates care DVT Px w Heparin Dispo: back to [facility] after more than 2 midnights stay Home Medications Scheduled Amlodipine Besylate (Amlodipine Besylate) 10 Mg Tablet, 10 MG PO DAILY Carvedilol (Carvedilol) 12.5 Mg Tablet, 12.5 MG PO BID Cefazolin Sodium (Cefazolin Sodium) 1 Gm Vial.port, 1 GM IV DAILY STARTED 04/05/21 FOR 18 DAYS Clonidine HCl (Clonidine HCl) 0.3 Mg Tablet, 0.3 MG PO DAILY Ergocalciferol (Vitamin D2) (Vitamin D2) 50,000 Units Cap, 50,000 UNITS PO QWEEK THURSDAY Heparin Sodium,Porcine/Pf (Heparin Lock Flush 10 Units/ml) 10 Unit/1 Ml Vial, 10 UNIT IV DAILY TO BE GIVEN AFTER CEFAZOLIN Hydralazine HCl (Hydralazine HCl) 25 Mg Tablet, 75 MG PO TID Insulin Glargine,Hum.rec.anlog (Basaglar Kwikpen U-100) 100 Unit/1 Ml Insuln.pen, 15 UNIT SC QPM Insulin Regular, Human (Novolin R) 100 Unit/1 Ml Vial, 1 DOSE SC AC PER SLIDING SCALE L.acidoph/L.bulg/B.bif/S.therm (Tonja-Bid Caplet) 1 Each Tablet, 1 TAB PO BID Losartan Potassium (Losartan Potassium) 100 Mg Tablet, 100 MG PO QHS Metoprolol Tartrate (Metoprolol Tartrate) 50 Mg Tablet, 50 MG PO BID Minoxidil (Minoxidil) 2.5 Mg Tablet, 2.5 MG PO BID Sevelamer Carbonate (Sevelamer Carbonate) 800 Mg Tablet, 1,600 MG PO WM WITH MEALS Scheduled PRN Baclofen (Baclofen) 10 Mg Tablet, 5 MG PO BID PRN for MUSCLE SPASMS Allergies Coded Allergies: cinacalcet (Verified Allergy, Unknown, 11/25/20) latex (Verified Allergy, Unknown, 11/03/19) peanut (Verified Allergy, Unknown, 11/25/20) TAPE (Verified Adverse Reaction, Intermediate, IRRITATES SKIN, 11/03/19) USE PAPER TAPE ONL;Y morphine (Verified Adverse Reaction, Mild, MILD PRURITIS, 03/28/21) per PATIENT 03/28/21 A-FIB/CHADSVASC A-FIB History Current/History of A-Fib/PAF?: No Current PO Anticoag Therapy: MICHAEL Pearl MD Apr 22, 2021 06:28
[2021-04-22] MEDS ORDERED: ONDANSETRON 4MG/2ML VIAL IV PRN (06:30)
[2021-04-22 06:44] LABS: HEMATOCRIT 29.7 % (36.0-47.0); HEMOGLOBIN 9.5 g/dl (12.0-15.5); MEAN CORPUSCULAR HEMOGLOBIN 31.6 pg (27.0-33.0); MEAN CORPUSCULAR VOLUME 98.7 fl (80.0-96.0); PLATELET COUNT, AUTOMATED 522 10^3/uL (150-450); RED BLOOD COUNT 3.01 10^6/uL (4.00-5.40); WHITE BLOOD COUNT 8.9 10^3/uL (4.0-10.0)
[2021-04-22] MEDS ORDERED: GLUCOSE 4GM CHEW TABLET PO PRN (06:55)
[2021-04-22] MEDS ORDERED: GLUCAGON INJ 1MG VIAL SC PRN (06:55)
[2021-04-22] MEDS ORDERED: DEXTROSE 50% 50 ML SYRINGE IV PRN (06:55)
[2021-04-22] MEDS ORDERED: BACLOFEN 10 MG TAB PO PRN (07:00)
[2021-04-22] MEDS: HumaLOG INSULIN (NovoLOG) PER UNIT SC SCH ×4 (07:30→21:00)
[2021-04-22 07:39] LABS: ALBUMIN 2.4 GM/DL (3.2-5.2); BILIRUBIN,TOTAL 2.7 MG/DL (0.2-1.0); CALCIUM LEVEL 9.7 MG/DL (8.5-10.1); CREATININE FOR GFR 6.57 MG/DL (0.55-1.30); GLOMERULAR FILTRATION RATE 9.3 (>60); POTASSIUM SERUM 5.1 MEQ/L (3.5-5.1); TOTAL PROTEIN 8.4 GM/DL (6.4-8.2)
[2021-04-22] MEDS ORDERED: ceFAZolin SOD 1 GM in D5W MINI-BAG PLUS 50 ML IV ONE (08:00)
[2021-04-22] MEDS: (RENVELA) SEVELAMER **CARBONate** 800 MG TAB PO SCH ×3 (08:00→18:22)
[2021-04-22] MEDS ORDERED: CARVedilol 12.5 MG TAB PO SCH (09:00)
[2021-04-22] MEDS: minoxidiL 2.5 MG TAB PO SCH ×2 (09:00→21:50)
[2021-04-22 10:20] VITALS: BP 191/95
--- NOTE | 2021-04-22 11:06 | REPVR ---
PROCEDURE INFORMATION: Exam: MR Head Without Contrast Exam date and time: 04/22/2021 10:37 AM Age: 36 years old Clinical indication: Prior surgery; Surgery date: 6+ months; Patient HX: PT states HX multi organ system failure. Cyst/bleed drained over 5 years prior. Current frequent h/a since fall 3 weeks prior. PT states seizure activity this am TECHNIQUE: Imaging protocol: MR of the head without contrast. COMPARISON: 1. CT Head without contrast 04/22/2021 2:07 AM 2. MRI-Brain without Contrast 01/05/2019 6:07:54 PM FINDINGS: Limitations: There is motion artifact partially degrading examination. Brain: Again seen is stable midline and right retrocerebellar large arachnoid cyst measuring approximately 7.6 cm x 4.2 cm x 4.4 cm. This causes anterior displacement and mass effect on the right cerebellum. There is mild mass effect on medial aspect of left cerebellum with mild leftward displacement. Again seen are mild white matter changes in cerebral white matter. No acute or chronic hemorrhage. No restricted diffusion or acute infarct. Hippocampi are symmetric in size and signal without evidence of mesial temporal sclerosis. Cerebral ventricles: 4th ventricle is normal in size and mildly deviated to left. There is stable dilatation of 3rd and lateral ventricles. No transependymal resorption of spinal fluid. Bones/joints: Unremarkable as visualized. Paranasal sinuses: Normal as visualized. No acute sinusitis. Mastoid air cells: No significant mastoid effusion. Orbital cavity: Unremarkable. Soft tissues: Unremarkable as visualized. IMPRESSION: Stable large midline and right posterior fossa arachnoid cyst. Stable ventriculomegaly. Electronically signed by: Maura Hampton On 04/22/2021 11:06:34 AM
[2021-04-22] MEDS: cloNIDine 0.1MG TABLET PO SCH (11:08)
[2021-04-22] MEDS: **hydrALAZINE HCL** 25 MG TAB PO SCH ×3 (11:09→21:50)
[2021-04-22] MEDS: METOPROLOL TART 50 MG TAB PO SCH ×2 (11:09→21:49)
[2021-04-22] MEDS ORDERED: DARBEPOETIN 100 MCG/0.5 ML *DIALYSIS* SYRINGE (J0882) IV SCH (12:05)
--- NOTE | 2021-04-22 12:37 | CR ---
CONSULTATION DATE: 04/22/2021 REFERRING PHYSICIAN: MICHAEL GOLD MD REASON FOR CONSULTATION: To assist in the management of endstage renal disease. HISTORY OF PRESENT ILLNESS: Mrs. Mireles is very well-known to our service. She is a 36-year-old female with a known history of longstanding diabetes, hypertension and endstage renal disease. Her diabetes and hypertension has been chronically uncontrolled. She has developed an infection with osteomyelitis on her left foot and has had several procedures done recently. She has been on chronic antibiotic therapy via PICC line and is currently in the senior care due to recurrent admissions and weakness. She was noticed to have recurrent seizures in the senior care due to which she was sent to the Emergency Room yesterday and was admitted. She receives maintenance hemodialysis on a Thursday, Thursday and Thursday schedule and is due for dialysis today. A Nephrology consultation was requested and the patient is seen this morning. PAST MEDICAL AND SURGICAL HISTORY: Significant for: 1. Longstanding diabetes complicated with peripheral neuropathy and retinopathy in addition to endstage renal disease. 2. Hypertension, usually poorly controlled. 3. Pulmonary hypertension. 4. History of chronic thrombocytosis. 5. Recent history of C. Diff colitis. 6. History of anxiety. 7. History of anemia. 8. History of anxiety. 9. History of Perm-A-Cath placement due to clotted AV fistula. 10.History of . 11.History of brain surgery for a cyst several years ago. 12.Multiple dbridements and amputation of fifth metatarsal head due to osteomyelitis. PERSONAL AND SOCIAL HISTORY: Patient has been homeless. She moved from [place] to stay with her sister here, however her sister kicked her out and she has been hospitalized here multiple times and then she was placed, however currently she is in a senior care. FAMILY HISTORY: Significant for diabetes, hypertension and cancer. REVIEW OF SYSTEMS: She has a history of headaches with uncontrolled hypertension. At present, she denies any headache. Ears, nose and throat are unremarkable. Cardiovascular system: Significant for volume overload and pulmonary hypertension. She denies any pleuritic type of chest pain at present. She denies any significant peripheral edema. Respiratory system: Negative for any hemoptysis or pleuritic type of chest pain. She is known to have pulmonary hypertension. GI system: Significant for liver problems with elevated bilirubin level. She denies any abdominal pain or vomiting. She does have a history of C. Diff colitis. system: Significant for a history of UTIs. She denies any dysuria or hematuria at present. Musculoskeletal: Significant for left foot osteomyelitis and she complains of weakness and numbness in her feet lately. Neurological system is significant for new onset seizures. She has a history of peripheral neuropathy. Hematological: Significant for anemia of chronic kidney disease. Musculoskeletal: Significant for osteoporosis of left foot and she has been on antibiotic therapy. PHYSICAL EXAMINATION: VITAL SIGNS: Temperature 98 degrees Fahrenheit, heart rate 80 per minute and respiratory 16 per minute, blood pressure 191/95 mmHg and oxygen saturation 94% on room air. HEENT: Head is atraumatic. NECK: Supple. JVD difficult to be assessed. She has a Perm-A-Cath in her right internal jugular vein for dialysis. HEART: Heart sounds are regular with a systolic murmur Grade 2/6. LUNGS: Clear to auscultation. ABDOMEN: Soft, protuberant and nontender. Bowel sounds are normal. EXTREMITIES: Without any cyanosis or clubbing. The left foot is in a dressing. NEUROLOGIC: She is awake and alert at the time of my visit. She did report some hallucinations while she was in the senior care, however not at this time. LABORATORY DATA: WBC count is 8.9, hemoglobin is 9.5 and hematocrit 29.7, platelets are 522,000. Sodium is 133, potassium is 5.1, chloride 95, CO2 26, __ 50, creatinine is 6.57. AST 67, ALT 12, alkaline phosphatase 1566, total bilirubin 2.7. Total protein is 8.4 and albumin 2.4. A TSH level was 5.5 yesterday. Lactic acid level was 1.3 and COVID and influenza test were negative. PROBLEMS: 1. Endstage renal disease, patient is regularly dialyzed on Thursday, Thursday and Thursday schedule. We will go ahead and schedule her for dialysis this afternoon. 2. New onset seizures, the etiology remains uncertain. She does have a history of uncontrolled hypertension and has been on multiple antihypertensive medications. Her CT scan of the head and now MRI also was reported unremarkable. I do not feel that the patient has any uremia contributing to her seizures as she has been regularly dialyzed since she has been in the senior care. 3. Uncontrolled hypertension. This is a chronic issue and we will need to adjust her medications. She is also probably mildly volume overloaded and we will remove at least 2.5 liters of fluid today with dialysis and see how she does. If her blood pressure does not improve after dialysis then I will make adjustment in her antihypertensive medications. 4. Osteomyelitis of left foot. Patient has been on Cefazolin via PICC line and should continue with the same. 5. Anemia, this is a chronic issue related to osteomyelitis and endstage renal disease. We will give her Aranesp 100 mcg while she is here in the hospital. Thank you for involving me in the care of Ms. Mireles. I will follow her along with you.
[2021-04-22 13:20] VITALS: BP 136/92
[2021-04-22 14:13] LABS: HEMATOCRIT 29.3 % (36.0-47.0); HEMOGLOBIN 9.2 g/dl (12.0-15.5); MEAN CORPUSCULAR HEMOGLOBIN 31.3 pg (27.0-33.0); MEAN CORPUSCULAR HGB CONC 31.4 g/dl (32.0-36.5); MEAN CORPUSCULAR VOLUME 99.7 fl (80.0-96.0); PLATELET COUNT, AUTOMATED 494 10^3/uL (150-450); RED BLOOD COUNT 2.94 10^6/uL (4.00-5.40); WHITE BLOOD COUNT 9.4 10^3/uL (4.0-10.0)
--- NOTE | 2021-04-22 15:24 | ECGEPIP ---
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
[2021-04-22] MEDS ORDERED: SODIUM CHLORIDE 0.9% INJ 10 ML SYR IV PRN (15:25)
[2021-04-22 16:28] LABS: BLOOD UREA NITROGEN 47 MG/DL (7-18); CALCIUM LEVEL 7.9 MG/DL (8.5-10.1); CARBON DIOXIDE LEVEL 26 MEQ/L (21-32); CHLORIDE LEVEL 95 MEQ/L (98-107); GLUCOSE, FASTING 261 MG/DL (70-100); POTASSIUM SERUM 5.5 MEQ/L (3.5-5.1); SODIUM LEVEL 130 MEQ/L (136-145); TROPONIN I < 0.02 NG/ML (< 0.10)
[2021-04-22 18:00] VITALS: BP 176/85
[2021-04-22] MEDS: SODIUM CHLORIDE 0.9% INJ 10 ML SYR IV SCH (18:23)
--- NOTE | 2021-04-22 19:28 | IPNPDOC ---
Subjective Date Seen The patient was seen on 04/22/21. Subjective Chief Complaint/HPI Ms. Mireles is a 36 year old female from [place] with ESRD on dialysis MWF, pulmonary hypertension, and IDDM1 who presents with seizures. She was seen this morning in the ED. She denies any chest pain or dyspnea, but she is anxious. She went for EEG today. After EEG and just before dialysis, she had a period where she was staring into space not responsive. Vitals were stable and patient was not hypoglycemia. I moved her leg and she said "ow". She seemed confused that she was in the hospital and asked what is dialysis. Repeated labs, troponin, lactic acid, and procalcitonin. Objective Physical Examination General Exam: Positive: Alert, Cooperative Eye Exam: Positive: EOMI ENT Exam: Positive: Atraumatic Neck Exam: Positive: Supple Chest Exam: Positive: Clear to auscultation Heart Exam: Positive: Rate Normal, Regular Rhythm Abdomen Exam: Positive: Normal bowel sounds, Soft; Negative: Tenderness Extremity Exam: Negative: Edema Neuro Exam: Positive: Normal Speech Psych Exam: Positive: Anxiety Assessment /Plan Assessment Ms. Mireles is a 36 year old female from [place] with ESRD on dialysis MWF, pulmonary hypertension, and IDDM1 who presents with seizures. Per patient, she could not control her body and she was foaming at her mouth. This happened miladis ral times at the nursing facility. EEG ordered, pending results. Neurology was consulted. Plan/VTE VTE Prophylaxis Ordered?: Yes Plan 1. Seizure -EEG performed -Neurology, Dr. Steel, consulted. Recommendations appreciated 2. Left foot wound -On cefazolin, to be completed on 04/23 3. ESRD on dialysis MWF -Nephrology consulted, recommendations appreciated 4. Hypertension -Continue amlodipine, metoprolol, losartan, minoxidil, clonidine 5. IDDM1 with neuropathy -Complicated by proliferative retinopathy s/p photocoagulation -Continue with sliding scale insulin and basal insulin 6. Transaminitis -Admitting provider discussed case with Dr. Cabrera -Thought to be secondary to congestive hepatopathy base on biopsy results 7. Anxiety -Continue hydroxyzine 8. Obesity -BMI 30 -Complicates care Disposition: Pending EEG and neurology's recommendations. To return to intermediate afterwards. VS, I&O, 24H, Fishbone Vital Signs/I&O Vital Signs Date Time Temp Pulse Resp B/P (MAP) Pulse Ox O2 Delivery O2 Flow Rate FiO2 04/22/21 18:00 98.9 80 16 176/85 (115) 91 Room Air Laboratory Data 24H LABS Laboratory Tests 2 04/21/21 23:02: Immature Granulocyte % (Auto) 0.4, Neutrophils (%) (Auto) 77.8H, Lymphocytes (%) (Auto) 9.4L, Monocytes (%) (Auto) 6.6, Eosinophils (%) (Auto) 5.1H, Basophils (%) (Auto) 0.7, Neutrophils # (Auto) 7.0, Lymphocytes # (Auto) 0.9L, Monocytes # (Auto) 0.6, Eosinophils # (Auto) 0.5, Basophils # (Auto) 0.1, Nucleated Red Blood Cells % (auto) 0.0, Anion Gap 11, Glomerular Filtration Rate 9.7L, Calcium Level 9.3, Total Bilirubin 3.0H, Direct Bilirubin 2.4H, Aspartate Amino Transf (AST/SGOT) 69H, Alanine Aminotransferase (ALT/SGPT) 13, Alkaline Phosphatase 1538H, Total Protein 8.0, Albumin 2.5L, Albumin/Globulin Ratio 0.5L, Lipase 104, Thyroid Stimulating Hormone (TSH) 5.500H 04/21/21 23:31: Lactic Acid Level 1.3, Ammonia 29, Coronavirus (COVID-19)(PCR) NEGATIVE, Infl uenza Type A (RT-PCR) NEGATIVE, Influenza Type B (RT-PCR) NEGATIVE, Respiratory Syncytial Virus (PCR) NEGATIVE 04/22/21 06:25: Bedside Glucose (Misc Panel) 242H 04/22/21 06:31: Nucleated Red Blood Cells % (auto) 0.0, Anion Gap 12, Glomerular Filtration Rate 9.3L, Calcium Level 9.7, Total Bilirubin 2.7H, Aspartate Amino Transf (AST/SGOT) 67H, Alanine Aminotransferase (ALT/SGPT) 12, Alkaline Phosphatase 1566H, Total Protein 8.4H, Albumin 2.4L, Albumin/Globulin Ratio 0.4L, Total Creatine Kinase 69, Prolactin 13.5 04/22/21 08:31: Bedside Glucose (Misc Panel) 257H 04/22/21 13:19: Bedside Glucose (Misc Panel) 268H 04/22/21 13:22: Nucleated Red Blood Cells % (auto) 0.0, Anion Gap 9, Glomerular Filtration Rate 9.0L, Calcium Level 7.9#L, Troponin I < 0.02 04/22/21 18:01: Bedside Glucose (Misc Panel) 154H CBC/BMP Laboratory Tests 04/21/21 23:02 04/22/21 06:31 04/22/21 13:22 Microbiology Microbiology 04/21/21 Blood Culture, Received Pending COLIN MCLEAN DO Apr 22, 2021 19:28
[2021-04-22 20:00] VITALS: BP 139/88
[2021-04-22] MEDS: LEVEMIR (INSULIN DETEMIR) 1 UNITS/0.01ML SC SCH (21:00)
[2021-04-22] MEDS: LOSARTAN 50MG TABLET PO SCH (21:49)
[2021-04-22 23:57] VITALS: BP 146/78
[2021-04-23] MEDS: HEPARIN SOD (PORCINE) 5000UNITS/ML 1ML VIAL/SYRINGE SC SCH ×2 (06:00→14:00)
[2021-04-23 06:02] VITALS: BP 154/58
[2021-04-23 06:15] LABS: HEMATOCRIT 25.7 % (36.0-47.0); HEMOGLOBIN 7.9 g/dl (12.0-15.5); MEAN CORPUSCULAR HEMOGLOBIN 31.1 pg (27.0-33.0); MEAN CORPUSCULAR HGB CONC 30.7 g/dl (32.0-36.5); MEAN CORPUSCULAR VOLUME 101.2 fl (80.0-96.0); PLATELET COUNT, AUTOMATED 423 10^3/uL (150-450); RED BLOOD COUNT 2.54 10^6/uL (4.00-5.40); WHITE BLOOD COUNT 8.3 10^3/uL (4.0-10.0)
[2021-04-23] MEDS: SODIUM CHLORIDE 0.9% INJ 10 ML SYR IV SCH ×2 (06:47→17:24)
[2021-04-23 06:50] LABS: ALBUMIN 2.4 GM/DL (3.2-5.2); BILIRUBIN,TOTAL 2.6 MG/DL (0.2-1.0); CALCIUM LEVEL 9.3 MG/DL (8.5-10.1); CREATININE FOR GFR 4.65 MG/DL (0.55-1.30); GLOMERULAR FILTRATION RATE 13.9 (>60); TOTAL PROTEIN 8.2 GM/DL (6.4-8.2)
[2021-04-23 07:21] VITALS: BP 156/78
[2021-04-23] MEDS: HumaLOG INSULIN (NovoLOG) PER UNIT SC SCH ×3 (08:27→17:08)
[2021-04-23] MEDS: cloNIDine 0.1MG TABLET PO SCH (08:28)
[2021-04-23] MEDS: minoxidiL 2.5 MG TAB PO SCH (08:28)
[2021-04-23] MEDS: (RENVELA) SEVELAMER **CARBONate** 800 MG TAB PO SCH ×3 (08:29→17:08)
[2021-04-23] MEDS: METOPROLOL TART 50 MG TAB PO SCH (08:29)
[2021-04-23] MEDS: **hydrALAZINE HCL** 25 MG TAB PO SCH ×2 (08:29→15:36)
[2021-04-23 10:59] VITALS: BP 134/79
[2021-04-23] MEDS ORDERED: DARBEPOETIN 100 MCG/0.5 ML *DIALYSIS* SYRINGE (J0882) IV SCH (12:25)
--- NOTE | 2021-04-23 13:17 | IPN ---
PROGRESS NOTE DATE: 04/23/2021 SUBJECTIVE: Ms. Mireles is seen this morning on her bedside. She is slow today and talking in broken sentences with one word at a time. Yesterday she was talking very fluently and today is much different. She has complained of pain and numbness in her feet and legs. She also has very tender swollen right thigh. She was dialyzed yesterday and she tolerated her dialysis treatment very well. Patient denies any nausea, vomiting or abdominal pain. PHYSICAL EXAMINATION: VITALS: Temperature 98.6 degrees Fahrenheit, heart rate 80 per minute, respiratory rate 18 per minute, blood pressure 134/79 mmHg and oxygen saturation 90% on room air. HEENT: Head is atraumatic. Neck is supple and JVD is about 6 to 7 cm above sternal angle. She has a right internal jugular vein Permacath in place. LUNGS: Clear to auscultation. HEART: Sounds are regular. ABDOMEN: Protuberant, soft and nontender. Bowel sounds are normal. EXTREMITIES: Without any cyanosis or clubbing. Right thigh is swollen and very tender. Left foot surgical incision and wound have almost healed. NEUROLOGIC: She is awake, but talking slow today compared with yesterday. LABORATORY STUDIES: Today's labs show WBC 8.3, hemoglobin 7.9, hematocrit 25.7, platelets 423,000. Sodium 134, potassium 5.0, CO2 24, BUN 31, creatinine 4.65. PROBLEMS: 1. End-stage renal disease: Patient was dialyzed yesterday and she tolerated her treatment well. We will plan her next dialysis tomorrow. 2. Hyponatremia: Sodium level improved up to 134 today. It will improve further with dialysis treatment again. Patient should continue with fluid restriction of 1500 mL per day. 3. Hyperkalemia: Potassium level has also improved with dialysis. She should follow 2 gram potassium diet. 4. Anemia: Anemia has worsened unexpectedly. No blood loss has been observed. I would recommend to recheck her CBC and we will consider transfusion if needed. She is receiving Aranesp 100 mcg with hemodialysis and depending upon her repeat CBC, we can consider switching to 200 mcg once a week. 5. Hypertension: Blood pressure seems very well controlled and no changes are being made today. 6. Seizure and altered mentation: No further seizure has been observed since she was admitted. All her workup has been negative so far.
--- NOTE | 2021-04-23 15:09 | IPNPDOC ---
Text Note Date of Service The patient was seen on 04/23/21. NOTE Subjective: Patient was seen in the morning she answered my questions with br oken sentences. She reported bilateral legs pain. No fever or chills. Dialysis session was yesterday. Objective: GENERAL APPEARANCE: NAD HEENT: no scleral icterus, no JVD, EOMI CARDIOVASCULAR: S1S2 LUNGS: CTA ABDOMEN: soft, distended, nontender MUSCULOSKELETAL: no cyanosis, no swelling, right thigh swollen INTEGUMENT: no generalized pallor NEUROLOGICAL: cranial nerve function from 2-12 intact intact, follows commands, speech slow Assessment and plan Ms. Mireles is a 36 year old female from [place] with ESRD on dialysis [facility], pulmonary hypertension, and IDDM1 who presents with seizures. She was seen this morning in the ED. She denies any chest pain or dyspnea, but she is anxious. She went for EEG today. After EEG and just before dialysis, she had a period where she was staring into space not responsive Seizures EEG shows encephalopathy Await neurologist consult MRI showed Stable large midline and right posterior fossa arachnoid cyst. Stable ventriculomegaly. I talked to Dr. Steel he recommended to start Keppra 500 mg daily Left foot wound On cefazolin, to be completed on 04/23 Left foot wound almost healed ESRD on dialysis [facility] Nephrology team follows her Uncontrolled Hypertension Patient on multiple blood pressure medications regimen. Blood pressures under control IDDM1 with neuropathy Poorly controlled diabetes Continue with sliding scale insulin and basal insulin Transaminitis Admitting provider discussed case with Dr. Cabrera -Thought to be secondary to congestive hepatopathy base on biopsy results Liver pathology from [facility] 02/08/21: Benign liver parenchyma with dilated sinusoids, with perivenular/perisinusoidal fibrosis, suggestive of venous outflow obstruction. The iron stain shows increased iron, mostly in Kupfer cells, consistent with moderate siderosis Will check liver ultrasound Anxiety Hydroxyzine Anemia of chronic diseases Secondary to end-stage renal diseases She is receiving Aranesp 100 mcg with hemodialysis Hemoglobin 7.9 today, we'll check H&H every 6 hours Hyponatremia/hyperkalemia Improved Right thigh pain Will proceed with Doppler ultrasound to exclude DVT VS,Fishbone, I+O VS, Fishbone, I+O Laboratory Tests 04/23/21 06:00 Vital Signs Date Time Temp Pulse Resp B/P (MAP) Pulse Ox O2 Delivery O2 Flow Rate FiO2 04/23/21 10:59 98.6 80 18 134/79 (97) 90 Room Air I&O- Last 24 Hours up to 6 AM 04/23/21 06:00 Intake Total 350 ml Output Total 2700 ml Balance -2350 ml SARTHAK SILVA Apr 23, 2021 15:09
[2021-04-23 15:14] VITALS: BP 152/79
[2021-04-23 15:56] LABS: HEMATOCRIT 29.6 % (36.0-47.0); HEMOGLOBIN 9.2 g/dl (12.0-15.5)
[2021-04-23] MEDS: levETIRAcetam 250MG TABLET (KEPPRA) PO SCH (16:42)
[2021-04-23] MEDS ORDERED: ceFAZolin SOD 1 GM in D5W MINI-BAG PLUS 50 ML IV SCH (17:00)
[2021-04-23] MEDS: ACETAMINOPHEN TAB 650MG DOSE (2X325MG) PO PRN (20:12)
[2021-04-23 21:37] LABS: HEMATOCRIT 29.7 % (36.0-47.0); HEMOGLOBIN 9.1 g/dl (12.0-15.5)
[2021-04-24] MEDS: **hydrALAZINE HCL** 25 MG TAB PO SCH (00:28)
[2021-04-24] MEDS: METOPROLOL TART 50 MG TAB PO SCH ×2 (00:29→14:10)
[2021-04-24] MEDS: LOSARTAN 50MG TABLET PO SCH (00:30)
[2021-04-24] MEDS: minoxidiL 2.5 MG TAB PO SCH ×2 (00:30→14:11)
[2021-04-24] MEDS: HumaLOG INSULIN (NovoLOG) PER UNIT SC SCH ×3 (00:31→14:09)
[2021-04-24] MEDS: HEPARIN SOD (PORCINE) 5000UNITS/ML 1ML VIAL/SYRINGE SC SCH ×2 (00:36→05:28)
[2021-04-24] MEDS: LEVEMIR (INSULIN DETEMIR) 1 UNITS/0.01ML SC SCH (00:36)
--- NOTE | 2021-04-24 00:42 | REPVR ---
PROCEDURE INFORMATION: Exam: US Duplex Right Lower Extremity Veins, Limited Exam date and time: 04/23/2021 11:38 PM Age: 36 years old Clinical indication: Pain; Leg, upper; Right; Additional info: Dvt TECHNIQUE: Imaging protocol: Real-time Duplex ultrasound of the Right Lower Extremity with 2-D burkett scale, color Doppler flow and spectral waveform analysis with image documentation. Limited exam was focused on the right lower extremity veins. COMPARISON: 1. US Duplex, Ext,LOWER veins,unilat 04/15/2021 1:07 PM 2. US Duplex, Ext,LOWER veins,unilat 03/30/2021 9:18 AM FINDINGS: Right deep veins: Unremarkable. The common femoral, femoral, popliteal and visualized calf veins are patent without thrombus. Normal Doppler waveforms. Normal compressibility and/or augmentation response. Right superficial veins: Unremarkable. Saphenofemoral junction is patent without thrombus. Soft tissues: 18.2 x 4.2x 5.9 cm complex collection with associated soft tissue swelling along the anterior aspect of the thigh. IMPRESSION: 1. No sonographic evidence of deep vein thrombosis. 2. 18.2 x 4.2x 5.9 cm complex collection with associated soft tissue swelling along the anterior aspect of the thigh, suggestive of hematoma. Infection/abscess cannot be excluded. Electronically signed by: Jeff Govea On 04/24/2021 00:41:37 AM
--- NOTE | 2021-04-24 00:46 | REPVR ---
PROCEDURE INFORMATION: Exam: US Abdomen, Limited; Right Upper Quadrant Exam date and time: 04/23/2021 11:38 PM Age: 36 years old Clinical indication: Condition or disease; Bile duct condition; Other: ? Dilatation; Additional info: Common bile duct dilatation TECHNIQUE: Imaging protocol: US abdomen. Real time ultrasound with image documentation. Limited exam focused on the right upper quadrant. COMPARISON: 1. ABD COMPLETE US 03/16/2021 8:17 AM 2. ABD COMPLETE US 02/15/2021 6:27 PM FINDINGS: Liver: Mild to moderate hepatomegaly. Gallbladder: No gallstones. Pronounced gallbladder wall thickening. No pericholecystic fluid. Common bile duct: No stones. No ductal dilatation. Pancreas: Unremarkable as visualized. Right kidney: Mildly echogenic, suggesting medical renal disease. No mass. No definite stones. No hydronephrosis. IMPRESSION: 1. Pronounced gallbladder wall thickening without gallstones, possibly reactive. If clinically indicated, HIDA scan would provide a more sensitive evaluation for acute gallbladder pathology. 2. Mild to moderate hepatomegaly. 3. Mildly echogenic right kidney, suggesting medical renal disease. Electronically signed by: Jeff Govea On 04/24/2021 00:46:20 AM
[2021-04-24 02:40] VITALS: BP 181/83
[2021-04-24 04:00] VITALS: BP 175/80
[2021-04-24 04:18] LABS: HEMOGLOBIN 9.4 g/dl (12.0-15.5)
[2021-04-24] MEDS: ACETAMINOPHEN TAB 650MG DOSE (2X325MG) PO PRN (05:28)
[2021-04-24] MEDS: SODIUM CHLORIDE 0.9% INJ 10 ML SYR IV SCH (05:29)
[2021-04-24 05:45] LABS: HEMATOCRIT 29.9 % (36.0-47.0); HEMOGLOBIN 9.4 g/dl (12.0-15.5); MEAN CORPUSCULAR HEMOGLOBIN 31.5 pg (27.0-33.0); MEAN CORPUSCULAR HGB CONC 31.4 g/dl (32.0-36.5); MEAN CORPUSCULAR VOLUME 100.3 fl (80.0-96.0); PLATELET COUNT, AUTOMATED 520 10^3/uL (150-450); RED BLOOD COUNT 2.98 10^6/uL (4.00-5.40); WHITE BLOOD COUNT 8.7 10^3/uL (4.0-10.0)
[2021-04-24 06:39] LABS: ALBUMIN 2.5 GM/DL (3.2-5.2); BILIRUBIN,TOTAL 2.7 MG/DL (0.2-1.0); CALCIUM LEVEL 9.7 MG/DL (8.5-10.1); CREATININE FOR GFR 6.2 MG/DL (0.55-1.30); MAGNESIUM LEVEL 2.3 MG/DL (1.8-2.4); POTASSIUM SERUM 4.9 MEQ/L (3.5-5.1); TOTAL PROTEIN 8.2 GM/DL (6.4-8.2)
--- NOTE | 2021-04-24 08:01 | CR ---
CONSULTATION DATE: 04/23/2021 REFERRING PHYSICIAN: Parmjit Brown DO REASON FOR CONSULTATION: Seizures. HISTORY OF PRESENT ILLNESS: Narcisa Mireles is a 36-year-old woman who was admitted to [facility] due to seizure-like spells. She lives at [facility] in [place] due to three seizures. She started having seizures on April 12. She had a recent admission for right anterior thigh pain thought to be muscle strain. She had another seizure on Thursday morning around 9 a.m. She vomited after having breakfast. She had a third seizure witnessed by halfway staff and was transferred to the emergency department. She states that she was shaking all over with foaming of mouth. She was unconscious during the seizure. She also felt tingling of her feet and tightness of her legs. She felt a tremor of her hands and speech was slow and stuttering. She has intermittent neck and back pain and headaches. She denies dysphagia and diplopia, urinary incontinence or recent falls. The patient states that she had a surgery to drain her arachnoid cyst. PAST MEDICAL HISTORY: 1. End-stage renal disease on hemodialysis. 2. Peripheral neuropathy. 3. Diabetic retinopathy. 4. History of DKA. 5. Pulmonary hypertension. 6. Chronic thrombocytosis. 7. Hypertension. 8. Anxiety. 9. Bilateral fifth metatarsal head amputations due to osteomyelitis. 10. AV fistula of right arm for hemodialysis. SOCIAL HISTORY: She is unemployed on disability and resides at [facility]. FAMILY HISTORY: Significant for hypertension, COPD, breast cancer and lung cancer. ALLERGIES: LATEX, PEANUTS, ADHESIVE TAPE, CINACALCET. HOME MEDICATIONS: 1. Amlodipine 10 mg p.o. daily. 2. Carvedilol 12.5 mg. p.o. b.i.d. 3. Cephazolin 1 gm IV daily. 4. Clonidine 0.2 mg p.o. daily. 5. Vitamin D3 50,000 units once a week. 6. Hydralazine 75 mg p.o. t.i.d. 7. Insulin Basaglar 15 units once a day. 8. Insulin Novolin sliding scale. 9. Losartan 100 mg p.o. daily. 10. Metoprolol 50 mg p.o. b.i.d. 11. Minoxidil 2.5 mg p.o. b.i.d. 12. Sevelamer 1600 mg p.o. with meals. 13. Baclofen 10 mg p.o. p.r.n. REVIEW OF SYSTEMS: All systems are reviewed and found to be noncontributory except as mentioned in history of present illness. PHYSICAL EXAMINATION: VITAL SIGNS: Temperature 98.4, pulse 70, respiratory rate 20, blood pressure 152/79, 95% saturation on room air. Serum creatinine ranges between 4.6-6.8. Hemoglobin 7.9, platelet count 423. HEART: Regular rate and rhythm. LUNGS: Clear to auscultation. ABDOMEN: Soft, nontender, nondistended. EXTREMITIES: No pedal edema. MUSCULOSKELETAL: No abnormalities. SKIN: No rash. NEUROLOGICAL: No signs of meningeal irritation. The patient is awake, alert, oriented to place, person and time. Speech with normal comprehension and repetition but slow and stuttering. Extraocular muscles are intact. No facial weakness. Tongue and uvula are midline. The patient is able to move all four extremities although very slowly, with intermittent activation. Deep tendon reflexes are 1+ in arms and absent in legs. She has decreased cold, pinprick, vibration sensations in her feet. Gait was not tested. No tremor or dysmetria. The patient was noted to be moving her arms much better when she called her sister and used her phone during this visit. DIAGNOSTIC STUDIES: CT scan and MRI scan of brain were reviewed and showed a large right posterior fossa arachnoid cyst with mildly enlarged ventricles. EEG showed diffuse slowing without epileptic abnormality. ASSESSMENT: 1. Seizure-like spells. 2. There is concern for generalized tonic-clonic seizures. 3. Large right posterior fossa arachnoid cyst. 4. Diabetic peripheral neuropathy, multifactorial gait difficulty. 5. Stuttering and slow speech w/o aphasia. PLAN: 1. Keppra 500 mg p.o. daily. 2. Ambulatory EEG on outpatient basis. 3. I spoke to the patient's sister at length and explained that arachnoid cyst is usually congenital and does not require further treatment. Neurosurgical referral can be considered on outpatient basis if they wish. 4. Video EEG monitoring will be considered as contingency planning if her seizure-like spells continue and if there is concern for nonepileptic spells. 5. Physical and occupational therapy. 6. The patient will follow up at our office in two weeks after hospital discharge. HALLIE
[2021-04-24 08:23] VITALS: BP 135/58
[2021-04-24] MEDS ORDERED: **hydrALAZINE** 50 MG TAB PO SCH (09:00)
[2021-04-24 09:37] LABS: HEMATOCRIT 30.2 % (36.0-47.0); HEMOGLOBIN 9.5 g/dl (12.0-15.5)
[2021-04-24] MEDS ORDERED: HYDR50TA PO (10:27)
[2021-04-24] MEDS ORDERED: IRON325T2 PO (10:27)
[2021-04-24] MEDS ORDERED: KEPP250T5 PO (10:28)
--- NOTE | 2021-04-24 12:50 | IPN ---
PROGRESS NOTE DATE: 04/24/2021 SUBJECTIVE: Ms. Mireles is seen this morning during hemodialysis. She is feeling about the same. Her speech remains slow. No further seizures have been witnessed. OBJECTIVE: VITAL SIGNS: Temperature 97.4 degrees Fahrenheit, heart rate is 77 per minute and respiratory rate is 18 per minute. Blood pressure 135/58 mmHg and oxygen saturation 97% on room air. HEAD AND NECK: Head is atraumatic. Neck is supple. JVD is mildly elevated. HEART: Heart sounds are regular. LUNGS: Clear to auscultation. ABDOMEN: Protuberant, nontender and bowel sounds are present. EXTREMITIES: Without any cyanosis or clubbing. Left foot wound is almost completely healed. NEUROLOGIC: She is awake and able to answer questions, however, her speech is slow although not slurred. LABORATORY DATA: Today's labs showed hemoglobin 9.5 and hematocrit 30.2. WBC count is 8.7. Sodium 135, potassium 4.9, CO2 25, BUN 41 and creatinine 6.2. Calcium 9.7 and total bilirubin is 2.7. PROBLEMS: 1. Endstage renal disease, patient is being dialyzed today and she is tolerating her dialysis treatment very well. We are removing about 3.5 liters of fluid today. 2. Hyponatremia, mild hyponatremia has been stable and likely to improve with dialysis. 3. Hypertension. Blood pressure has been high this morning, however much better now during dialysis. I anticipate that her blood pressure will remain stable after dialysis as we are removing 3.5 liters of fluid. Current antihypertensive meds should continue. 4. Anemia, her anemia is stable and she already received Aranesp 100 mcg this week. We will continue to watch her and manage with dialysis. 5. Seizures. Patient has been seizure-free since admission here. She is now on Keppra 500 mg daily. 6. Disposition: From a renal standpoint, the patient can be discharged back to the care home if she is considered stable otherwise.
--- NOTE | 2021-04-24 13:49 | EEG ---
ELECTROENCEPHALOGRAM DATE: 04/22/2021 DIAGNOSIS: Seizure. EEG# [id number] REFERRING PHYSICIAN: Dr. Amalia Garvey HISTORY: The patient is a 36-year-old woman who was seen at [facility] due to seizure-like spells. She had three episodes during which she had shaking of arms and legs and stated that she was foaming at her mouth. The patient's brother has a history of seizures. This EEG was done to rule out epileptic potential. She is currently taking hydralazine, clonidine, Amlodipine, cefazolin, losartan, Minoxidil, carvedilol, etc. TECHNICAL DESCRIPTION: This digital electroencephalogram (EEG) was recorded by 21 scalp, ear and two electrocardiogram (EKG) electrodes and was reviewed in bipolar and referential montages following reformatting in 10-20 international electrode placement system. INTERPRETATION: Patient was noted to be in awake and drowsy states during this EEG. Resting and awake background rhythm consisted of 5-6 Hz theta activity measuring 15-40 microvolts in amplitude which was symmetric bilaterally. Stages II and III sleep were recorded and were symmetric bilaterally. The patient stayed asleep throughout this EEG mostly. Hyperventilation could not be performed. Photic stimulation remained unremarkable. EKG revealed normal sinus rhythm. No focal, lateralizing, or epileptiform abnormalities were seen. No relevant clinical activity was noted. EKG revealed normal sinus rhythm. No focal, lateralizing, or epileptiform abnormalities were seen. No relevant clinical activity was noted. CONCLUSION: This EEG in mostly stage II and III sleep is abnormal due to the presence of mild generalized background snoring consistent with mild encephalopathy due to multiple potential causes including toxic, metabolic, medication-related, or multifocal structural brain abnormalities. No clear epileptiform abnormalities were seen. Clinical correlation is recommended.
[2021-04-24] MEDS: (RENVELA) SEVELAMER **CARBONate** 800 MG TAB PO SCH ×2 (14:09→14:14)
[2021-04-24 14:10] VITALS: BP 157/69
[2021-04-24] MEDS: levETIRAcetam 250MG TABLET (KEPPRA) PO SCH (14:10)
[2021-04-24] MEDS: cloNIDine 0.1MG TABLET PO SCH (14:12)
--- NOTE | 2021-04-24 16:06 | DS.PDOC ---
Discharge Summary General Date of Admission Apr 22, 2021 at 05:50 Date of Discharge 04/24/21 Discharge Summary PROCEDURES PERFORMED DURING STAY: [None]. ADMITTING DIAGNOSES: Seizures Left foot wound ESRD on dialysis MWF Uncontrolled Hypertension IDDM1 with neuropathy Transaminitis Anxiety Anemia of chronic diseases Hyponatremia/hyperkalemia Right thigh pain DISCHARGE DIAGNOSES: Seizures Left foot wound ESRD on dialysis MWF Uncontrolled Hypertension IDDM1 with neuropathy Transaminitis Anxiety Anemia of chronic diseases Hyponatremia/hyperkalemia Right thigh pain COMPLICATIONS/CHIEF COMPLAINT: Encephalopathy Acute. HISTORY OF PRESENT ILLNESS: was sent from her NH in [place] for evaluation of seizures; apparently the seizures started around April 12 prior to her recent admission for right anterior thigh pain but she didnt mention this. She had another seizure Thursday morning at around 9AM, vomited after eating breakfast and had a 3rd seizure that was witnessed by NH staff prior to transfer to the ER. She is also c/o new tightness and numbness in her feet, new hand tremors and feels like her speech is slow. HOSPITAL COURSE: During the hospital stay following issues addressed Seizures EEG shows encephalopathy MRI showed Stable large midline and right posterior fossa arachnoid cyst. Stable ventriculomegaly. I talked to Dr. Steel he recommended to start Keppra 500 mg daily Ambulatory EEG on outpatient basis, Video EEG monitoring will be considered as contingency planning if her seizure-like spells continue and if there is concern for nonepileptic spells. Left foot wound On cefazolin, to be completed on 04/23 Left foot wound almost healed ESRD on dialysis [facility] Nephrology team follows her Uncontrolled Hypertension Patient on multiple blood pressure medications regimen. Blood pressures under control IDDM1 with neuropathy Poorly controlled diabetes Continue with sliding scale insulin and basal insulin Transaminitis Admitting provider discussed case with Dr. Cabrera -Thought to be secondary to congestive hepatopathy base on biopsy results Liver pathology from [facility] 02/08/21: Benign liver parenchyma with dilated sinusoids, with perivenular/perisinusoidal fibrosis, suggestive of venous outflow obstruction. The iron stain shows increased iron, mostly in Kupfer cells, consistent with moderate siderosis Anxiety Hydroxyzine Anemia of chronic diseases Secondary to end-stage renal diseases She is receiving Aranesp 100 mcg with hemodialysis Hyponatremia/hyperkalemia Improved Right thigh pain Doppler ultrasound showed hematoma, most likely due to previous seizures DISCHARGE MEDICATIONS: Please see below. ALLERGIES: Please see below. PHYSICAL EXAMINATION ON DISCHARGE: VITAL SIGNS: Please see below. GENERAL APPEARANCE: NAD HEENT: no scleral icterus, no JVD, EOMI CARDIOVASCULAR: S1S2 LUNGS: CTA ABDOMEN: soft, distended, nontender MUSCULOSKELETAL: no cyanosis, no swelling, right thigh swollen INTEGUMENT: no generalized pallor NEUROLOGICAL: cranial nerve function from 2-12 intact intact, follows commands, speech slow LABORATORY DATA: Please see below. IMAGING: [facility] NAME: KATELYN COLLINS DATE OF : 1985 BUSINESS NUMBER: [id number] AGE: 36 SEX: F REPORT #: [id number] ROOM: [facility] TECHNOLOGIST: ELIZABETH DOCTOR: COLIN MCLEAN DO Ordered for Date&Time: 04/22/21 09 cc: [~ rep ct ivnm] Service Date&Time: 04/22/21 1037 This report is in Signed status. Interpretation performed by [facility]. Thank you for having your radiology procedures performed at [facility] RADIOLOGY REPORT Date&Time printed: [~ rep prt dt last] [~ rep prt tm last] Page 2 of 2 [place] [id number] RADIOLOGY REPORT This report is in Signed status. Interpretation performed by [facility]. Thank you for having your radiology procedures performed at [facility] RADIOLOGY REPORT Date&Time printed: [~ rep prt dt last] [~ rep prt tm last] Page 1 of 2 PROCEDURE INFORMATION: Exam: MR Head Without Contrast Exam date and time: 04/22/2021 10:37 AM Age: 36 years old Clinical indication: Prior surgery; Surgery date: 6+ months; Patient HX: PT states HX multi organ system failure. Cyst/bleed drained over 5 years prior. Current frequent h/a since fall 3 weeks prior. PT states seizure activity this am TECHNIQUE: Imaging protocol: MR of the head without contrast. COMPARISON: 1. CT Head without contrast 04/22/2021 2:07 AM 2. MRI-Brain without Contrast 01/05/2019 6:07:54 PM FINDINGS: Limitations: There is motion artifact partially degrading examination. Brain: Again seen is stable midline and right retrocerebellar large arachnoid cyst measuring approximately 7.6 cm x 4.2 cm x 4.4 cm. This causes anterior displacement and mass effect on the right cerebellum. There is mild mass effect on medial aspect of left cerebellum with mild leftward displacement. Again seen are mild white matter changes in cerebral white matter. No acute or chronic hemorrhage. No restricted diffusion or acute infarct. Hippocampi are symmetric in size and signal without evidence of mesial temporal sclerosis. Cerebral ventricles: 4th ventricle is normal in size and mildly deviated to left. There is stable dilatation of 3rd and lateral ventricles. No transependymal resorption of spinal fluid. Bones/joints: Unremarkable as visualized. Paranasal sinuses: Normal as visualized. No acute sinusitis. Mastoid air cells: No significant mastoid effusion. Orbital cavity: Unremarkable. Soft tissues: Unremarkable as visualized. IMPRESSION: Stable large midline and right posterior fossa arachnoid cyst. Stable ventriculomegaly. Electronically signed by: Naman Adam On 04/22/2021 11:06:34 AM DD: NAMAN ADAM MD 04/22/21 1037 DT: PARTHA 04/22/21 1106 DS: LJ 04/22/21 1106 [~ rep ct labl] PROGNOSIS: Guarded ACTIVITY: [As tolerated]. DIET: Cardiac DISPOSITION: [facility]/ [facility]. ITEMS TO FOLLOWUP ON ON OUTPATIENT: Follow-up with braille typist and neurologist in 2 weeks DISCHARGE CONDITION: [Stable]. TIME SPENT ON DISCHARGE: 40 minutes. Vital Signs/I&Os Vital Signs Date Time Temp Pulse Resp B/P (MAP) Pulse Ox O2 Delivery O2 Flow Rate FiO2 04/24/21 14:10 92 157/69 04/24/21 08:23 97.4 18 97 Room Air I&O- Last 24 Hours up to 6 AM 04/24/21 06:00 Intake Total 610 ml Output Total 0 ml Balance 610 ml Laboratory Data Labs 24H Laboratory Tests 2 04/23/21 16:50: Bedside Glucose (Misc Panel) 152H 04/23/21 23:54: Bedside Glucose (Misc Panel) 158H 04/24/21 05:26: Nucleated Red Blood Cells % (auto) 0.0, Anion Gap 9, Glomerular Filtration Rate 10.0L, Calcium Level 9.7, Magnesium Level 2.3, Total Bilirubin 2.7H, Aspartate Amino Transf (AST/SGOT) 71H, Alanine Aminotransferase (ALT/SGPT) 12, Alkaline Phosphatase 1599H, Total Protein 8.2, Albumin 2.5L, Albumin/Globulin Ratio 0.4L 04/24/21 11:30: Coronavirus (COVID-19)(PCR) NEGATIVE 04/24/21 13:27: Bedside Glucose (Misc Panel) 134H CBC/BMP Laboratory Tests 04/23/21 21:21 04/24/21 04:07 04/24/21 05:26 04/24/21 08:55 FSBS Laboratory Tests Test 04/23/21 16:50 04/23/21 23:54 04/24/21 13:27 Range/Units Bedside Glucose (Misc Panel) 152 158 134 70-105 MG/DL Microbiology Microbiology 04/21/21 Blood Culture - Preliminary, Resulted No Growth after 48 hours. All Specime... Discharge Medications Scheduled Amlodipine Besylate (Amlodipine Besylate) 10 Mg Tablet, 10 MG PO DAILY, (Report ed) Clonidine HCl (Clonidine HCl) 0.3 Mg Tablet, 0.3 MG PO DAILY, (Reported) Ergocalciferol (Vitamin D2) (Vitamin D2) 50,000 Units Cap, 50,000 UNITS PO QWEEK, (Reported) THURSDAY Ferrous Sulfate (Iron) 325 Mg Tablet, 1 TAB PO BID Heparin Sodium,Porcine/Pf (Heparin Lock Flush 10 Units/ml) 10 Unit/1 Ml Vial, 10 UNIT IV DAILY, (Reported) TO BE GIVEN AFTER CEFAZOLIN Hydralazine HCl (Hydralazine HCl) 50 Mg Tablet, 100 MG PO TID Insulin Glargine,Hum.rec.anlog (Basaglar Kwikpen U-100) 100 Unit/1 Ml Insuln.pen, 15 UNIT SC QPM, (Reported) Insulin Regular, Human (Novolin R) 100 Unit/1 Ml Vial, 1 DOSE SC AC, (Reported) PER SLIDING SCALE L.acidoph/L.bulg/B.bif/S.therm (Tonja-Bid Caplet) 1 Each Tablet, 1 TAB PO BID, (Reported) Levetiracetam (Keppra) 250 Mg Tablet, 500 MG PO DAILY Losartan Potassium (Losartan Potassium) 100 Mg Tablet, 100 MG PO QHS, (Reported) Metoprolol Tartrate (Metoprolol Tartrate) 50 Mg Tablet, 50 MG PO BID, (Reported) Minoxidil (Minoxidil) 2.5 Mg Tablet, 2.5 MG PO BID, (Reported) Sevelamer Carbonate (Sevelamer Carbonate) 800 Mg Tablet, 1,600 MG PO WM, (Reported) WITH MEALS Scheduled PRN Baclofen (Baclofen) 10 Mg Tablet, 5 MG PO BID PRN for MUSCLE SPASMS Allergies Coded Allergies: cinacalcet (Verified Allergy, Unknown, 11/25/20) latex (Verified Allergy, Unknown, 11/03/19) peanut (Verified Allergy, Unknown, 11/25/20) TAPE (Verified Adverse Reaction, Intermediate, IRRITATES SKIN, 11/03/19) USE PAPER TAPE ONL;Y morphine (Verified Adverse Reaction, Mild, MILD PRURITIS, 03/28/21) per PATIENT 03/28/21 SARTHAK SILVA DO Apr 24, 2021 16:06
[2021-04-26] MEDS ORDERED: VITAMIN D 50,000 UNITS CAPSULE (ERGOCALCIFEROL 1.25MG) PO SCH (09:00)
== END 2021-04-24 14:56 | DRG 100 ==
LOC: M ED 22:51 → M ED INP 04-22 05:50 → ENRESERV 04-22 07:18 → M PCU 04-22 10:40
PROVIDERS: ADMIT Internal Medicine; ATTEND Internal Medicine
PROC: 5A1D70Z Performance of Urinary Filtration, Intermittent, Less than 6 Hours Per Day (ICD-10-PCS; principal; 2021-04-22)
DX: R56.9 Unspecified convulsions (principal); N18.6 End stage renal disease; I12.0 Hypertensive chronic kidney disease with stage 5 chronic kidney disease or end stage renal disease; M86.472 Chronic osteomyelitis with draining sinus, left ankle and foot; E87.1 Hypo-osmolality and hyponatremia; G93.40 Encephalopathy, unspecified; Z99.2 Dependence on renal dialysis; E10.22 Type 1 diabetes mellitus with diabetic chronic kidney disease; E10.42 Type 1 diabetes mellitus with diabetic polyneuropathy; E10.69 Type 1 diabetes mellitus with other specified complication; E10.3599 Type 1 diabetes mellitus with proliferative diabetic retinopathy without macular edema, unspecified eye; I27.20 Pulmonary hypertension, unspecified; F41.9 Anxiety disorder, unspecified; Z89.421 Acquired absence of other right toe(s); Z89.422 Acquired absence of other left toe(s); Z20.822 Contact with and (suspected) exposure to COVID-19; R74.01 Elevation of levels of liver transaminase levels; D69.6 Thrombocytopenia, unspecified; E66.9 Obesity, unspecified; Z79.4 Long term (current) use of insulin; Z79.899 Other long term (current) drug therapy; Z88.5 Allergy status to narcotic agent; Z88.8 Allergy status to other drugs, medicaments and biological substances; Z91.010 Allergy to peanuts; Z91.040 Latex allergy status; Z91.048 Other nonmedicinal substance allergy status; D63.1 Anemia in chronic kidney disease; E87.5 Hyperkalemia; G93.0 Cerebral cysts; R47.89 Other speech disturbances; Z68.29 Body mass index [BMI] 29.0-29.9, adult

== ENCOUNTER 2021-04-25 00:52 | Emergency (ER) | payer MEDICARE, MEDICAID ==
[~2021-04-25] VITALS: Ht 175.3 cm; Wt 88.2 kg
[~2021-04-25 00:52] MED LIST changes: +IRON325T2 PO; +KEPP250T5 PO; +med rec comment
[2021-04-25] MEDS ORDERED: cloNIDine 0.1MG TABLET PO ONE (02:25)
[2021-04-25] MEDS ORDERED: minoxidiL 2.5 MG TAB PO ONE (03:35)
[2021-04-25] MEDS ORDERED: METOPROLOL TART 50 MG TAB PO ONE (06:20)
[2021-04-25] MEDS ORDERED: **hydrALAZINE** 50 MG TAB PO ONE (06:20)
[2021-04-25 06:30] VITALS: BP 178/95
== END 2021-04-25 07:46 | disposition home or self-care (01) ==
LOC: M ED 00:52
DX: I12.0 Hypertensive chronic kidney disease with stage 5 chronic kidney disease or end stage renal disease (principal); N18.6 End stage renal disease; Z99.2 Dependence on renal dialysis; E11.9 Type 2 diabetes mellitus without complications; Z79.899 Other long term (current) drug therapy; Z79.4 Long term (current) use of insulin; Z88.5 Allergy status to narcotic agent; Z88.8 Allergy status to other drugs, medicaments and biological substances; Z91.010 Allergy to peanuts; Z91.040 Latex allergy status; Z91.048 Other nonmedicinal substance allergy status

== ENCOUNTER 2021-05-06 17:10 | Observation (INO) | payer MEDICARE, MEDICAID ==
[~2021-05-06] VITALS: Ht 175.3 cm; Wt 86.4 kg
--- NOTE | 2021-05-06 18:08 | REP ---
INDICATION: CHEST PAIN COMPARISON: 03/08/2021 TECHNIQUE: Portable AP view of the chest FINDINGS: Cardiomegaly and double-lumen Tessio catheter again noted. Pulmonary vascular congestion and subtle hazy bibasilar airspace disease cannot be excluded. IMPRESSION: Cannot exclude pulmonary vascular congestion and subtle lower lobe opacities. <Electronically signed by Guy Garcia > 05/06/21 [id number]
[2021-05-06 18:10] LABS: BASO # 0.1 10^3/uL (0.0-0.2); BASO % 0.6 % (0.0-1.0); EOS # 0.4 10^3/uL (0.0-0.5); HEMATOCRIT 28.2 % (36.0-47.0); LYMPH % 7.8 % (24.0-44.0); MEAN CORPUSCULAR HEMOGLOBIN 30.6 pg (27.0-33.0); MEAN CORPUSCULAR HGB CONC 31.9 g/dl (32.0-36.5); MEAN CORPUSCULAR VOLUME 95.9 fl (80.0-96.0); MONO # 0.8 10^3/uL (0.0-0.8); MONO % 6.5 % (2.0-8.0); NEUTROPHILS # 10.3 10^3/uL (1.5-8.5); NEUTROPHILS % 81.6 % (36.0-66.0); PLATELET COUNT, AUTOMATED 560 10^3/uL (150-450); RED BLOOD COUNT 2.94 10^6/uL (4.00-5.40); WHITE BLOOD COUNT 12.6 10^3/uL (4.0-10.0)
--- NOTE | 2021-05-06 19:10 | ECGEPIP ---
[facility] - ED Test Date: 2021-05-06 Pat Name: KATELYN COLLINS Department: Room: - Gender: Female Lehr Tender: KAYA : 1985 Requested By: Shubham Meek Order Number: [id number] Reading MD: Shubham Meek Measurements Intervals [place] Rate: 84 P: 55 VA: 132 QRS: 67 QRSD: 74 T: 117 QT: 378 QTc: 446 Interpretive Statements Normal sinus rhythm Possible Left atrial enlargement Nonspecific T wave abnormality Delayed R wave progression cw 04/22/[address] T wave changes Electronically Signed on 05-06-2021 19:09:48 EDT by Shubham Meek
[2021-05-06 19:46] LABS: BLOOD UREA NITROGEN 64 MG/DL (7-18); CALCIUM LEVEL 9.1 MG/DL (8.5-10.1); CARBON DIOXIDE LEVEL 27 MEQ/L (21-32); CHLORIDE LEVEL 95 MEQ/L (98-107); CK-MB VALUE MASS 1.1 NG/ML (<3.6); CPK CREATINE PHOSPHOKINASE 133 U/L (26-192); CREATININE FOR GFR 7.02 MG/DL (0.55-1.30); GLOMERULAR FILTRATION RATE 8.6 (>60); GLUCOSE, FASTING 123 MG/DL (70-100); MB/CK RELATIVE INDEX 0.83 (< OR =4); POTASSIUM SERUM 5.5 MEQ/L (3.5-5.1); SODIUM LEVEL 132 MEQ/L (136-145); TROPONIN I < 0.02 NG/ML (< 0.10)
[2021-05-06] MEDS ORDERED: **hydrALAZINE** 50 MG TAB PO ONE (20:25)
[2021-05-06] MEDS ORDERED: SOD POLYSTYRENE SULFONATE SUSP 15 GM/60 ML UD PO ONE (21:00)
[2021-05-06] MEDS ORDERED: LOSARTAN 50MG TABLET PO SCH (21:00)
[2021-05-06] MEDS ORDERED: HumaLOG INSULIN (NovoLOG) PER UNIT SC SCH (21:00)
[2021-05-06] MEDS ORDERED: LEVEMIR (INSULIN DETEMIR) 1 UNITS/0.01ML SC SCH (21:00)
[2021-05-06] MEDS ORDERED: LABETALOL 100MG/20ML VIAL IV STA (22:13)
[2021-05-06] MEDS ORDERED: hydrALAZINE 20MG/ML 1ML VIAL (J0360 PER 20MG) IV STA (23:26)
[2021-05-07 00:22] LABS: CK-MB VALUE MASS < 1.0 NG/ML (<3.6); CPK CREATINE PHOSPHOKINASE 143 U/L (26-192); TROPONIN I < 0.02 NG/ML (< 0.10)
[2021-05-07] MEDS ORDERED: MOM 30ML SUSPENSION UDC PO PRN (01:10)
[2021-05-07] MEDS ORDERED: hydrALAZINE 20MG/ML 1ML VIAL (J0360 PER 20MG) IV PRN (01:10)
[2021-05-07] MEDS ORDERED: DEXTROSE 50% 50 ML SYRINGE IV PRN (01:20)
[2021-05-07] MEDS ORDERED: GLUCOSE 4GM CHEW TABLET PO PRN (01:20)
[2021-05-07] MEDS ORDERED: GLUCAGON INJ 1MG VIAL SC PRN (01:20)
[2021-05-07] MEDS ORDERED: HYDR-3911 PO (01:25)
[2021-05-07] MEDS ORDERED: KEPP250T5 PO (01:25)
[2021-05-07] MEDS ORDERED: FERR1TAB8 PO (01:25)
[2021-05-07] MEDS ORDERED: BACL10TA2 PO (01:26)
--- NOTE | 2021-05-07 01:30 | HPEPDOC ---
[facility] Medical History & Physical Date of Admission May 07, 2021 Date of Service: May 07, 2021 History and Physical CHIEF COMPLAINT: Chest pain HISTORY OF PRESENT ILLNESS: Narcisa Mireles is a 36-year-old female insulin-dependent diabetic who is noncompliant with ESRD on hemodialysis who presented with chest pain. Patient re sides at [facility] she was on her way to get her dialysis today upon arrival to the dialysis center she complained of chest pain and was sent to the emergency department. By the time she arrived to the emergency department her chest pain had resolved. She describes the pain as a dull midsternal chest pain that lasted one hour. It was constant and did not radiate. She believes it might be related to food she ate that day. Nothing seems to alleviate or worsen the pain. She doesn't think she's had similar pain in the past. She says her pain is completely resolved and has not recurred. In the emergency department nephrology was consulted and advised patient can get her dialysis in the morning. Patient will be admitted because she was found to have hypertensive urgency as well as to complete ACS rule out with third troponin. She will be admitted for observation and might be able to go home after dialysis once her blood pressure is better controlled. PAST MEDICAL/SURGICAL HISTORY: Type 1 insulin-dependent diabetes mellitus End-stage renal disease on hemodialysis with peripheral neuropathy and proliferative retinopathy status post photocoagulation Pulmonary hypertension Chronic thrombocytosis Uncontrolled hypertension Anxiety Bilateral fifth metatarsal head amputations due to osteomyelitis Brain surgery unspecified Right AV fistula placement Permacath placement SOCIAL HISTORY: Unemployed on disability. Denies drinking alcohol or smoking tobacco. Resides at [facility]. FAMILY HISTORY: Reviewed and none contributory to this admission ALLERGIES: Please see below. REVIEW OF SYSTEMS: 10 point review of systems complete all negative otherwise stated in HPI HOME MEDICATIONS: Please see below. PHYSICAL EXAMINATION: Constitutional: Awake and alert, in no apparent distress ENT: Mucosa is moist. Respiratory: Lungs CTA bilaterally. No respiratory distress. Cardiovascular: Regular rate and rhythm Gastrointestinal: Abdomen is soft, non distended, non tender, BS present. Musculoskeletal: Dependent lower extremity edema Neurologic: No focal neurological deficit. Mental Status: A&O x3, normal affect LABORATORY DATA: See below. IMAGING: See chart MICROBIOLOGY: Please see below. ASSESSMENT/PLAN Narcisa Mireles is a 36-year-old female insulin-dependent diabetic who is noncompliant with ESRD on hemodialysis who presented with chest pain. She missed her dialysis today she will be admitted for hypertensive urgency and to rule out ACS and to get dialysis in the morning. # Chest pain: Noncardiac chest pain based on christie criteria. Rule out ACS. Troponin negative so far. Obtain third troponin in the morning. Patient says he relates to food perhaps GERD. Now completely resolved. # Hypertensive urgency: Her blood pressure is very difficult to control because of her ESRD. She will be admitted to PCU on telemetry monitoring. Home medications will be continued. She will receive IV hydralazine as needed to better control her blood pressure. Blood pressure should come down tomorrow after dialysis. # ESRD on HD: Nephrology consulted for dialysis in the morning. # IDDM1: With nephropathy, proliferative retinopathy s/p photocoagulation and hx of DKA. ISS. Frequent Accu-Cheks. Hypoglycemic precautions. Levemir 15 units QHS. Carbohydrate consistent diet. # Anemia of chronic disease: Continue iron. Follow-up CBC. Follow-up with nephro. # DVT prophylaxis: Heparin A Yousef Hospitalist Vital Signs Vital Signs Date Time Temp Pulse Resp B/P (MAP) Pulse Ox O2 Delivery O2 Flow Rate FiO2 05/07/21 00:54 83 18 221/107 (145) 97 Room Air Laboratory Data Labs 24H Laboratory Tests 2 05/06/21 17:49: POC Troponin I (Misc) 0.02 05/06/21 17:50: Immature Granulocyte % (Auto) 0.5, Neutrophils (%) (Auto) 81.6H, Lymphocytes (%) (Auto) 7.8L, Monocytes (%) (Auto) 6.5, Eosinophils (%) (Auto) 3.0, Basophils (%) (Auto) 0.6, Neutrophils # (Auto) 10.3H, Lymphocytes # (Auto) 1.0L, Monocytes # (Auto) 0.8, Eosinophils # (Auto) 0.4, Basophils # (Auto) 0.1, Nucleated Red Blood Cells % (auto) 0.0 05/06/21 19:01: Anion Gap 10, Glomerular Filtration Rate 8.6L, Calcium Level 9.1, Total Creatine Kinase 133, Creatine Kinase MB 1.1, Creatine Kinase MB Relative Index 0.83, Troponin I < 0.02 05/06/21 23:35: Total Creatine Kinase 143, Creatine Kinase MB < 1.0, Creatine Kinase MB Relative Index 0.70, Troponin I < 0.02 05/07/21 00:51: CBC/BMP Laboratory Tests 05/06/21 17:50 05/06/21 19:01 Home Medications Scheduled Amlodipine Besylate (Amlodipine Besylate) 10 Mg Tablet, 10 MG PO DAILY Clonidine HCl (Clonidine HCl) 0.3 Mg Tablet, 0.3 MG PO DAILY Ergocalciferol (Vitamin D2) (Vitamin D2) 50,000 Units Cap, 50,000 UNITS PO QWEEK THURSDAY Ferrous Sulfate (Ferrous Sulfate) 325 Mg Tablet, 325 MG PO BID Hydralazine HCl (Hydralazine HCl) 50 Mg Tablet, 100 MG PO TID Insulin Glargine,Hum.rec.anlog (Basaglar Kwikpen U-100) 100 Unit/1 Ml Insuln.pen, 15 UNIT SC QHS Insulin Regular, Human (Novolin R) 100 Unit/1 Ml Vial, 1 DOSE SC AC PER SLIDING SCALE L.acidoph/L.bulg/B.bif/S.therm (Tonja-Bid Caplet) 1 Each Tablet, 1 TAB PO BID Levetiracetam (Keppra) 250 Mg Tablet, 500 MG PO DAILY Losartan Potassium (Losartan Potassium) 100 Mg Tablet, 100 MG PO QHS Metoprolol Tartrate (Metoprolol Tartrate) 50 Mg Tablet, 50 MG PO BID Minoxidil (Minoxidil) 2.5 Mg Tablet, 2.5 MG PO BID Sevelamer Carbonate (Sevelamer Carbonate) 800 Mg Tablet, 1,600 MG PO WM WITH MEALS Scheduled PRN Baclofen (Baclofen) 10 Mg Tablet, 5 MG PO BID PRN for MUSCLE SPASMS Allergies Coded Allergies: cinacalcet (Verified Allergy, Unknown, 11/25/20) latex (Verified Allergy, Unknown, 11/03/19) peanut (Verified Allergy, Unknown, 11/25/20) TAPE (Verified Adverse Reaction, Mild, IRRITATES SKIN, 05/06/21) USE PAPER TAPE ONL;Y morphine (Verified Adverse Reaction, Mild, MILD PRURITIS, 03/28/21) per PATIENT 03/28/21 MATT NORTH MD May 07, 2021 01:30
[2021-05-07] MEDS ORDERED: BACLOFEN 5MG PER 1/2 TABLET PO PRN (01:40)
[2021-05-07 01:51] LABS: RSV AMPLIFICATION NEGATIVE (NEGATIVE)
[2021-05-07] MEDS: ACETAMINOPHEN TAB 650MG DOSE (2X325MG) PO PRN ×2 (03:37→09:27)
[2021-05-07 07:22] LABS: HEMATOCRIT 28.2 % (36.0-47.0); HEMOGLOBIN 9.1 g/dl (12.0-15.5); MEAN CORPUSCULAR HEMOGLOBIN 30.4 pg (27.0-33.0); MEAN CORPUSCULAR HGB CONC 32.3 g/dl (32.0-36.5); MEAN CORPUSCULAR VOLUME 94.3 fl (80.0-96.0); PLATELET COUNT, AUTOMATED 576 10^3/uL (150-450); RED BLOOD COUNT 2.99 10^6/uL (4.00-5.40); WHITE BLOOD COUNT 13.1 10^3/uL (4.0-10.0)
[2021-05-07] MEDS: HumaLOG INSULIN (NovoLOG) PER UNIT SC SCH ×2 (07:30→11:34)
[2021-05-07 08:06] LABS: ALBUMIN 2.7 GM/DL (3.2-5.2); ALT/SGPT 41 U/L (12-78); BILIRUBIN,TOTAL 2.7 MG/DL (0.2-1.0); BLOOD UREA NITROGEN 69 MG/DL (7-18); CALCIUM LEVEL 9.1 MG/DL (8.5-10.1); CARBON DIOXIDE LEVEL 26 MEQ/L (21-32); CHLORIDE LEVEL 95 MEQ/L (98-107); GLOMERULAR FILTRATION RATE 7.9 (>60); GLUCOSE, FASTING 105 MG/DL (70-100); SODIUM LEVEL 133 MEQ/L (136-145); TOTAL PROTEIN 7.5 GM/DL (6.4-8.2); TROPONIN I < 0.02 NG/ML (< 0.10)
[2021-05-07 08:25] VITALS: BP 172/80
[2021-05-07] MEDS ORDERED: SLF 3 ML SYR IV PRN (08:55)
[2021-05-07] MEDS ORDERED: cloNIDine 0.1MG TABLET PO SCH (09:00)
[2021-05-07] MEDS ORDERED: METOPROLOL TART 50 MG TAB PO SCH (09:00)
[2021-05-07] MEDS ORDERED: DOCUSATE SODIUM 100MG CAPSULE PO SCH (09:00)
[2021-05-07] MEDS ORDERED: **hydrALAZINE** 50 MG TAB PO SCH (09:00)
[2021-05-07] MEDS ORDERED: levETIRAcetam 250MG TABLET (KEPPRA) PO SCH (09:00)
[2021-05-07] MEDS ORDERED: FERROUS SULFATE 325MG TAB PO SCH (09:00)
[2021-05-07] MEDS ORDERED: HEPARIN SOD (PORCINE) 5000UNITS/ML 1ML VIAL/SYRINGE SC SCH (09:00)
[2021-05-07] MEDS ORDERED: minoxidiL 2.5 MG TAB PO SCH (09:00)
[2021-05-07] MEDS: (RENVELA) SEVELAMER **CARBONate** 800 MG TAB PO SCH ×2 (09:21→11:33)
[2021-05-07] MEDS: **hydrALAZINE** 50 MG TAB PO SCH ×3 (09:22→15:00)
[2021-05-07 10:00] VITALS: BP 170/80
[2021-05-07] MEDS ORDERED: SODIUM CHLORIDE 0.9% 1000ML IV PRN (10:10)
[2021-05-07] MEDS: hydrALAZINE 20MG/ML 1ML VIAL (J0360 PER 20MG) IV SCH ×2 (10:51→14:00)
[2021-05-07 11:56] VITALS: BP 150/79
--- NOTE | 2021-05-07 13:41 | DS.PDOC ---
Discharge Summary General Date of Admission [place] 0109am Date of Discharge 05/07/21 1341pm Discharge Summary discharge summary dictated job # [id number] Vital Signs/I&Os Vital Signs Date Time Temp Pulse Resp B/P (MAP) Pulse Ox O2 Delivery O2 Flow Rate FiO2 05/07/21 11:56 97.0 84 18 150/79 (102) 95 Room Air 05/07/21 06:01 1.0 Laboratory Data Labs 24H Laboratory Tests 2 05/06/21 17:49: POC Troponin I (Misc) 0.02 05/06/21 17:50: Immature Granulocyte % (Auto) 0.5, Neutrophils (%) (Auto) 81.6H, Lymphocytes (%) (Auto) 7.8L, Monocytes (%) (Auto) 6.5, Eosinophils (%) (Auto) 3.0, Basophils (%) (Auto) 0.6, Neutrophils # (Auto) 10.3H, Lymphocytes # (Auto) 1.0L, Monocytes # (Auto) 0.8, Eosinophils # (Auto) 0.4, Basophils # (Auto) 0.1, Nucleated Red Blood Cells % (auto) 0.0 05/06/21 19:01: Anion Gap 10, Glomerular Filtration Rate 8.6L, Calcium Level 9.1, Total Creatine Kinase 133, Creatine Kinase MB 1.1, Creatine Kinase MB Relative Index 0.83, Troponin I < 0.02 05/06/21 23:35: Total Creatine Kinase 143, Creatine Kinase MB < 1.0, Creatine Kinase MB Relative Index 0.70, Troponin I < 0.02 05/07/21 00:51: Coronavirus (COVID-19)(PCR) NEGATIVE, Influenza Type A (RT-PCR) NEGATIVE, Influenza Type B (RT-PCR) NEGATIVE, Respiratory Syncytial Virus (PCR) NEGATIVE 05/07/21 01:49: Bedside Glucose (Misc Panel) 107H 05/07/21 07:06: Nucleated Red Blood Cells % (auto) 0.0, Anion Gap 12, Glomerular Filtration Rate 7.9L, Calcium Level 9.1, Total Bilirubin 2.7H, Aspartate Amino Transf (AST/SGOT) 61H, Alanine Aminotransferase (ALT/SGPT) 41, Alkaline Phosphatase 1260H, Troponin I < 0.02, Total Protein 7.5, Albumin 2.7L, Albumin/Globulin Ratio 0.6L 05/07/21 11:25: Coronavirus (COVID-19)(PCR) NEGATIVE CBC/BMP Laboratory Tests 05/06/21 17:50 05/06/21 19:01 05/07/21 07:06 FSBS Laboratory Tests Test 05/07/21 01:49 Range/Units Bedside Glucose (Misc Panel) 107 70-105 MG/DL Discharge Medications Scheduled Amlodipine Besylate (Amlodipine Besylate) 10 Mg Tablet, 10 MG PO DAILY, (Report ed) Clonidine HCl (Clonidine HCl) 0.3 Mg Tablet, 0.3 MG PO DAILY, (Reported) Ergocalciferol (Vitamin D2) (Vitamin D2) 50,000 Units Cap, 50,000 UNITS PO QWEEK, (Reported) THURSDAY Ferrous Sulfate (Ferrous Sulfate) 325 Mg Tablet, 325 MG PO BID, (Reported) Hydralazine HCl (Hydralazine HCl) 50 Mg Tablet, 100 MG PO TID, (Reported) Insulin Glargine,Hum.rec.anlog (Basaglar Kwikpen U-100) 100 Unit/1 Ml Insuln.pen, 15 UNIT SC QHS, (Reported) Insulin Regular, Human (Novolin R) 100 Unit/1 Ml Vial, 1 DOSE SC AC, (Reported) PER SLIDING SCALE L.acidoph/L.bulg/B.bif/S.therm (Tonja-Bid Caplet) 1 Each Tablet, 1 TAB PO BID, (Reported) Levetiracetam (Keppra) 250 Mg Tablet, 500 MG PO DAILY, (Reported) Losartan Potassium (Losartan Potassium) 100 Mg Tablet, 100 MG PO QHS, (Reported) Metoprolol Tartrate (Metoprolol Tartrate) 50 Mg Tablet, 50 MG PO BID, (Reported) Minoxidil (Minoxidil) 2.5 Mg Tablet, 2.5 MG PO BID, (Reported) Sevelamer Carbonate (Sevelamer Carbonate) 800 Mg Tablet, 1,600 MG PO WM, (Reported) WITH MEALS Scheduled PRN Baclofen (Baclofen) 10 Mg Tablet, 5 MG PO BID PRN for MUSCLE SPASMS, (Reported) Allergies Coded Allergies: cinacalcet (Verified Allergy, Unknown, 11/25/20) latex (Verified Allergy, Unknown, 11/03/19) peanut (Verified Allergy, Unknown, 11/25/20) TAPE (Verified Adverse Reaction, Mild, IRRITATES SKIN, 05/06/21) USE PAPER TAPE ONL;Y morphine (Verified Adverse Reaction, Mild, MILD PRURITIS, 03/28/21) per PATIENT 03/28/21 ERICA FANG MD May 07, 2021 13:41
[2021-05-07] MEDS ORDERED: SLF 3 ML SYR IV SCH (14:00)
--- NOTE | 2021-05-07 14:15 | DSES ---
DISCHARGE SUMMARY DATE OF ADMISSION: 05/06/2021 DATE OF DISCHARGE: 05/07/2021 CAR RESTORER: Kitty Bates D.O. of nephrology. PRIMARY DISCHARGE DIAGNOSES: 1. Noncompliant with dialysis. 2. Hypertensive urgency. 3. Chest pain secondary to hypertensive urgency. 4. Type 1 insulin-dependent diabetes. 5. Pulmonary hypertension. 6. Chronic thrombocytosis. 7. Anxiety. 8. Right arteriovenous (AV) fistula placement. 9. History of Permacath placement. DISCHARGE MEDICATIONS: 1. Amlodipine 10 daily. 2. Baclofen 5 b.i.d. as needed for muscle spasms. 3. Clonidine 0.3 daily. 4. Vitamin D 50,000 units weekly. 5. Ferrous sulfate 325 b.i.d. 6. Hydralazine 100 t.i.d. 7. Lantus insulin 15 units subcutaneously q. h.s. 8. Insulin sliding scale. 9. Bacid one tablet b.i.d. 10. Keppra 500 daily. 11. Losartan 100 q. h.s. 12. Metoprolol 50 b.i.d. 13. Minoxidil 2.5 b.i.d. 14. Sevelamer 1600 mg p.o. with meals. DISCHARGE INSTRUCTIONS: Call you isotope hydrologist for adjustment of your blood pressure medications. PCP appointment within five days and isotope hydrologist within seven days. Please continue with your scheduled dialysis sessions. HOSPITAL COURSE: This is a 36-year-old female with a history of noncompliance with her dialysis who presented to the emergency room with complaints of chest pain and was found to have hypertensive urgency with blood pressure of 234/130. The patient was emergently treated with intravenous hydralazine 10 IV q. 4 hourly and resumed on her home dose of medications of Norvasc, metoprolol, minoxidil, Clonidine, and losartan. Relief Charge Nurse, Kitty Bates D.O., was consulted for emergent dialysis due to missed dialysis. Chest x-ray showed vascular congestion with lower lobe opacities. After the patient was admitted to PCU, telemetry showed sinus rhythm. Troponins were negative x3 sets. The patient was emergently dialyzed with resolution of the uncontrolled hypertension and chest pain. The patient is discharged in stable condition to [facility]. DISCHARGE PHYSICAL EXAMINATION: VITAL SIGNS: Temperature 97, pulse 84, respiratory rate 18, blood pressure 150/79, 95% on room air. GENERAL: Awake, alert, and oriented to person, place, and time. Answering questions appropriately. NECK: No JVD, thyromegaly, or cervical lymphadenopathy. LUNGS: Clear to auscultation. No wheezing, rales, or rhonchi. HEART: S1, S2, sinus rhythm. ABDOMEN: Soft, nontender, and nondistended with positive bowel sounds. EXTREMITIES: No cyanosis or clubbing. Positive chronic edema 1+ bilaterally. LABORATORY DATA: White count 13, hemoglobin 9.1, hematocrit 28, platelet count 576,000. Sodium 133, potassium 5, chloride 95, bicarb 26, BUN 69, creatinine 7.6, glucose of 105. Troponin less than 0.02. IMAGING DATA: Chest x-ray with pulmonary vascular congestion. Subtle lower lobe opacities. Time spent on discharge 30 minutes. MTDD
[2021-05-07 15:00] VITALS: BP 156/60
[2021-05-07 15:46] VITALS: BP 156/64
--- NOTE | 2021-05-07 18:51 | CR ---
NEPHROLOGY CONSULTATION DATE: 05/07/2021 REQUESTING PHYSICIAN: Olaf Salazar M.D. REASON FOR CONSULTATION: Management of end-stage renal disease on hemodialysis. HISTORY OF PRESENT ILLNESS: Narcisa is well-known to me. She is a 36-year-old female with a past medical history of type 1 diabetes mellitus with end-stage renal disease on hemodialysis and also diabetic neuropathy, retinopathy and nephropathy. Patient also has a past medical history of anemia of chronic renal failure, thrombocytosis, hypertension and other comorbid conditions mentioned below. She presently is at [facility]. She was on her way to hemodialysis yesterday when she developed nausea and chest pain in the outpatient dialysis unit. The patient vomited and complained of ongoing chest discomfort and she was sent to the emergency room and she did not have her dialysis treatment done. By the time the patient arrived to the emergency room, her chest pain had resolved. The patient ended up being admitted because of hypertensive urgency as well as to complete the cardiac workup with troponin cycling and also because she had missed her dialysis treatment. PAST MEDICAL HISTORY: 1. End-stage renal disease on hemodialysis. 2. Type 1 insulin-dependent diabetes mellitus with diabetic nephropathy, neuropathy and retinopathy. 3. Hypertension. 4. Diabetic gastroparesis. 5. Chronic thrombocytosis. 6. Secondary hyperparathyroidism of renal origin. 7. Anemia of chronic renal failure. 8. Anxiety. 9. History of osteomyelitis. 10. Recent persistently elevated alkaline phosphatase. 11. History of diabetic ketoacidosis. 12. Pulmonary hypertension. SURGICAL HISTORY: 1. History of Permacath placement. 2. History of arteriovenous (AV) fistula surgery. 3. (C) section. 4. History of brain surgery for cyst removal several years ago. 5. Amputation of fifth metatarsal head due to osteomyelitis. ALLERGIES: TAPE, CINACALCET, LATEX, MORPHINE, PEANUT. HOME MEDICATIONS: - amlodipine 10 mg daily - baclofen 5 mg by mouth twice a day as needed - clonidine 0.3 mg by mouth daily - vitamin D2 50,000 units once weekly - ferrous sulfate 325 mg by mouth twice a day - hydralazine 100 mg by mouth three times a day - insulin - Keppra 500 mg by mouth daily - losartan 100 mg by mouth at bedtime - metoprolol 50 mg by mouth twice a day - minoxidil 2.5 mg by mouth twice a day - Renvela 1600 mg by mouth with meals SOCIAL HISTORY: She is residing presently at [facility]. Previously, she was in a homeless assisted. She has an elder sister, Zahida Mireles, who was involved in her care. She denies drinking alcohol or smoking tobacco or illicit drugs. FAMILY HISTORY: Significant for diabetes and hypertension. REVIEW OF SYSTEMS: CONSTITUTIONAL: She denies fevers or chills. She reports generalized weakness and fatigue. EARS, NOSE AND THROAT: She reports no rhinorrhea or epistaxis. EYES: She reports scleral icterus. She denies any changes in vision. CARDIAC: She denies any current chest pain or palpitations. RESPIRATORY: She denies any current shortness of breath or cough. GASTROINTESTINAL: Significant for history of elevated bilirubin and alkaline phosphatase and history of liver biopsy as well. She denies any nausea or vomiting at this time. GENITOURINARY: She denies any dysuria or hematuria. MUSCULOSKELETAL: Significant for history of left foot osteomyelitis and she complains of some mild pain in her thighs. NEUROLOGIC: Significant for a history of seizures and neuropathy. HEMATOLOGIC: Significant for history of anemia of chronic kidney disease and also thrombocytosis. ENDOCRINE: She reports type 1 diabetes and secondary hyperparathyroidism of renal origin. SKIN: She reports some darkening of her skin. She denies any rashes. Remainder of the review of systems is negative or as per history of present illness (HPI). PHYSICAL EXAMINATION: VITAL SIGNS: Temperature 97.6, pulse 79, respiratory rate 18, blood pressure 56/64, saturating 93-95% on room air. GENERAL: Patient is seen this morning at the bedside and later in the hemodialysis unit receiving her treatment, awake, alert, oriented, comfortable, in no apparent distress. HEENT: Extraocular muscles are intact. Tongue is moist. Neck is supple. Jugular veins were mildly elevated. HEART: Sounds were regular. S1, S2. LUNGS: Clear to auscultation. No crackle or rale. ABDOMEN: Soft and nontender. There are bowel sounds. DIALYSIS ACCESS: There is a tunneled dialysis catheter in the right internal jugular (IJ), which is presently in use in the hemodialysis unit. EXTREMITIES: There is trace leg edema. There is no clubbing or cyanosis. Peripheral pulses (radial) are palpable. NEUROLOGIC: She is oriented times three, interactive, conversational and no focal deficit. LABORATORY STUDIES: Sodium 133, potassium 5.0, bicarbonate 26, BUN 69, creatinine 7.6. She has had three negative troponins. Albumin 2.7. Hemoglobin 9.1, platelets 576. IMAGING DATA: Chest x-ray done yesterday shows possible mild pulmonary vascular congestion. INPATIENT MEDICATIONS: - Tylenol as needed - amlodipine 10 mg daily - Baclofen 5 mg by mouth twice a day - clonidine 0.3 mg by mouth daily - docusate 100 mg by mouth twice a day - ferrous sulfate 325 mg by mouth twice a day - heparin 5000 units subcutaneous every 12 hours - hydralazine 100 mg by mouth three times a day - insulin - Keppra 500 mg by mouth daily - losartan 100 mg by mouth at bedtime - metoprolol 50 mg by mouth twice a day - minoxidil 2.5 mg by mouth twice a day - Renvela 1600 mg by mouth with meals PROBLEMS: 1. End-stage renal disease on hemodialysis. Patient missed her treatment yesterday. Hence, we arranged for dialysis today. Four liters of fluid were removed. She needs to follow up with vascular surgery in the outpatient setting for fistula creation. She is still dialyzing via a Permacath. Her next dialysis will be on Thursday in the outpatient unit for her usual maintenance schedule. 2. Status post hypertensive urgency. Patient is on a multi-drug regimen. Her blood pressures did improve with dialysis and fluid removal and I made no change to the current medications. We removed 4 liters with her treatment today and she will be dialyzed again on Thursday. 3. Anemia of chronic renal failure. Hemoglobin is slightly below goal, but she will continue with anemia protocol in the outpatient dialysis unit. 4. Hyperkalemia. She is being dialyzed today with a 2.0 mEq potassium bath. 5. Hypervolemic hypernatremia. It will improve with dialysis and fluid restriction. She continues on a low salt renal diet with 1.8 liter fluid restriction advised. DISPOSITION: Patient is acceptable for discharge from a nephrology point of view after she gets her hemodialysis treatment today.
--- NOTE | 2021-05-08 19:55 | ECGEPIP ---
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
== END 2021-05-07 17:26 ==
LOC: M ED 17:10 → EDBD 17:10 → M ED INP 17:11 → ENRESERV 05-07 06:32 → M PCU 05-07 08:21
PROVIDERS: ADMIT Family Medicine; ATTEND Family Medicine
DX: N18.6 End stage renal disease (principal); Z91.15 Patient's noncompliance with renal dialysis; R07.9 Chest pain, unspecified; I27.0 Primary pulmonary hypertension; Z79.899 Other long term (current) drug therapy; E10.40 Type 1 diabetes mellitus with diabetic neuropathy, unspecified; Z79.4 Long term (current) use of insulin; F41.9 Anxiety disorder, unspecified; Z91.040 Latex allergy status; Z91.010 Allergy to peanuts; Z88.5 Allergy status to narcotic agent; D47.1 Chronic myeloproliferative disease
CPT/HCPCS: 36415; 71045; 80048; 80053; 82550; 82553; 84484; 85025; 85027; 87631; 93005; 93041; 94760; 96372; 96374; 96375; 96376; 99285; G0257; G0378; J0360; J1644; U0002

== ENCOUNTER 2021-05-27 21:20 | Emergency (ER) | payer MEDICARE, MEDICAID ==
[~2021-05-27] VITALS: Ht 175.3 cm; Wt 90.9 kg
[2021-05-27] MEDS ORDERED: ASPI81CH33 PO (22:36)
[2021-05-27] MEDS ORDERED: ACET-683 PO (22:36)
[2021-05-27] MEDS ORDERED: NOVOINJ13 SC (22:36)
[2021-05-27] MEDS ORDERED: FERR324T21 PO (22:36)
[2021-05-27] MEDS ORDERED: METOPROLOL TART 50 MG TAB PO ONE (23:05)
[2021-05-27] MEDS ORDERED: LOSARTAN 50MG TABLET PO ONE (23:05)
[2021-05-27] MEDS ORDERED: **hydrALAZINE** 50 MG TAB PO ONE (23:05)
[2021-05-27 23:22] VITALS: BP 211/101
[2021-05-27] MEDS ORDERED: FLEET ENEMA PR STA (23:33)
--- NOTE | 2021-05-28 01:18 | REPVR ---
PROCEDURE INFORMATION: Exam: XR Abdomen Exam date and time: 05/27/2021 11:28 PM Age: 36 years old Clinical indication: Abdominal pain; Acute; Additional info: Abdominal pain/distention TECHNIQUE: Imaging protocol: XR of the abdomen. Views: Frontal supine view of the abdomen. 1 View. COMPARISON: CT ABD PELVIS W/O CONTRAST 04/02/2021 1:37 PM FINDINGS: Gastrointestinal tract: Large amount of fecal material in the colon. Nonobstructive bowel gas pattern. Bones/joints: Unremarkable. Soft tissues: No organomegaly or mass effect. IMPRESSION: Constipation. Electronically signed by: John Hernandez On 05/28/2021 01:17:25 AM
[2021-05-28] MEDS ORDERED: MAGNESIUM CITRATE 300 ML BTL PO ONE (02:40)
[2021-05-28 03:45] VITALS: BP 183/102
== END 2021-05-28 03:58 | disposition home or self-care (01) ==
LOC: M ED 21:20
DX: K59.00 Constipation, unspecified (principal); I11.0 Hypertensive heart disease with heart failure; E11.9 Type 2 diabetes mellitus without complications; I50.9 Heart failure, unspecified; N18.6 End stage renal disease; Z99.2 Dependence on renal dialysis; Z88.5 Allergy status to narcotic agent; Z88.8 Allergy status to other drugs, medicaments and biological substances; Z91.010 Allergy to peanuts; Z91.040 Latex allergy status; Z91.048 Other nonmedicinal substance allergy status; Z79.899 Other long term (current) drug therapy; Z79.82 Long term (current) use of aspirin; Z79.4 Long term (current) use of insulin

== ENCOUNTER → 2021-06-11 | Outpatient (CLI) | payer MEDICAID, MEDICARE ==
[~2021-06-11] MED LIST changes: +ACET-683 PO; +ASPI81CH33 PO; +BACTDSTA PO; +FERR324T21 PO; +FERR325T3 PO; +INSUR SC; +NOVOINJ13 SC
--- NOTE | 2021-06-11 12:24 | REP ---
INDICATION: CKD STAGE 5, VEIN MAPPING. COMPARISON: None. TECHNIQUE: Real-time sonographic evaluation of the veins of the upper extremity with Doppler for vein mapping. FINDINGS: On the right: At the level of the upper humerus the basilic vein measures 3.7 mm. The cephalic vein is occluded At the level of the lower humerus the basilic vein measures 5.3 mm. The cephalic vein is occluded. At the level of the upper forearm the basilic vein measures 4.2 mm. The cephalic vein is occluded. At the level of the lower forearm/wrist the basilic vein measures 2.8 mm. The cephalic vein is occluded. The peak systolic velocity of the axillary artery is 93 centimeters/second, is triphasic in waveform, and measures between 5 and 9 mm The brachial artery has a peak systolic velocity of 109 centimeters/seconds, has a triphasic waveform, and measures 5.3 mm The radial artery has a peak systolic velocity of 91 centimeters/second, has a triphasic waveform, and measures 1.9 mm. The ulnar artery has a peak systolic velocity of 141 centimeters/second, has a triphasic waveform, and measures 2.3 mm in size. On the left: At the level of the upper humerus the basilic vein measures 4.5 mm. The cephalic vein measures 3.8 mm. At the level of the lower humerus the basilic vein measures 4.3 mm. The cephalic vein measures 3.5 mm. At the level of the upper forearm the basilic vein measures 2.3 mm. The cephalic vein measures 2.5 mm. At the level of the lower forearm/wrist the basilic vein measures 1.8 mm. The cephalic vein measures 2.8 mm. At the level of the median cubital fossa the basilic vein measures 1.8 mm. The cephalic vein was not measured. The peak systolic velocity of the axillary artery is 69 centimeters/second, has a triphasic waveform, and measures 5.6 mm. The brachial artery has a peak systolic velocity of 76 centimeters/second, has a triphasic waveform, and measures 4.2 mm. The radial artery has a peak systolic velocity of 18 centimeters/second, has a monophasic waveform, and measures 1.8 mm. The ulnar artery has a peak systolic velocity of 99 centimeters/second, has a triphasic waveform, and measures 2.3 mm. IMPRESSION: As above <Electronically signed by Darnell Fox > 06/11/21 [id number]
== END ==
LOC: M RAD 09:24
PROVIDERS: ATTEND Surgery
DX: Z01.818 Encounter for other preprocedural examination (principal); N18.5 Chronic kidney disease, stage 5; I12.0 Hypertensive chronic kidney disease with stage 5 chronic kidney disease or end stage renal disease; N17.8 Other acute kidney failure; I82.611 Acute embolism and thrombosis of superficial veins of right upper extremity; I82.621 Acute embolism and thrombosis of deep veins of right upper extremity

== ENCOUNTER 2021-06-18 17:04 | Inpatient (IN) | payer MEDICARE ==
[~2021-06-18] VITALS: Ht 175.3 cm; Wt 85.8 kg
[~2021-06-18 17:04] MED LIST changes: -BACTDSTA PO; -FERR325T3 PO; -INSUR SC
[2021-06-18] MEDS ORDERED: fentaNYL 100 MCG/2 ML INJECTION (J3010) IV ONE (17:55)
[2021-06-18] MEDS ORDERED: hydrALAZINE 20MG/ML 1ML VIAL (J0360 PER 20MG) IV ONE (18:25)
[2021-06-18 20:25] LABS: BASO # 0.1 10^3/uL (0.0-0.2); BASO % 0.5 % (0.0-1.0); EOS # 0.4 10^3/uL (0.0-0.5); EOS % 3.6 % (0.0-3.0); HEMATOCRIT 34.3 % (36.0-47.0); HEMOGLOBIN 10.9 g/dl (12.0-15.5); LYMPH # 1.2 10^3/uL (1.5-5.0); MEAN CORPUSCULAR HEMOGLOBIN 29.2 pg (27.0-33.0); MEAN CORPUSCULAR HGB CONC 31.8 g/dl (32.0-36.5); MONO # 0.7 10^3/uL (0.0-0.8); MONO % 6.7 % (2.0-8.0); NEUTROPHILS # 8.2 10^3/uL (1.5-8.5); NEUTROPHILS % 77.7 % (36.0-66.0); PLATELET COUNT, AUTOMATED 499 10^3/uL (150-450); RED BLOOD COUNT 3.73 10^6/uL (4.00-5.40); WHITE BLOOD COUNT 10.6 10^3/uL (4.0-10.0)
--- NOTE | 2021-06-18 20:41 | REPVR ---
PROCEDURE INFORMATION: Exam: US Left Non-Vascular Joint or Other Extremity Structure Exam date and time: 06/18/2021 7:58 PM Age: 36 years old Clinical indication: Mass or lump; Other: Axilla; Additional info: Abscess, axilla TECHNIQUE: Imaging protocol: Left US joint or other nonvascular extremity structure or structures. Real-time ultrasound with image documentation. Limited study. Exam focused on the upper extremity in the region of clinical interest. COMPARISON: CT ANGIO CHEST 03/08/2021 7:34 PM FINDINGS: Soft tissues: Imaging of the left axilla demonstrates the presence of a complex appearing predominantly solid mass measuring 1.9 x 1.4 x 2 cm. Masses echogenic centrally with a hypoechoic rind. No significant hypervascularity. Findings may represent a lymph node or mass of other etiology. No drainable collection demonstrated. IMPRESSION: Solid-appearing complex mass in the left axilla as described above. Differential includes an enlarged lymph node, either infectious or inflammatory, versus an abscess. Electronically signed by: Young Hopkins On 06/18/2021 20:40:54 PM
[2021-06-18 20:53] LABS: CALCIUM LEVEL 10.4 MG/DL (8.5-10.1); CREATININE FOR GFR 5.08 MG/DL (0.55-1.30); GLOMERULAR FILTRATION RATE 12.5 (>60)
[2021-06-18 21:27] LABS: C REACTIVE PROTEIN QUANTITATIV 2.59 MG/DL (0.00-0.30)
[2021-06-18 21:44] LABS: ERYTHROCYTE SEDIMENTATION RATE 75 mm/hr (0-20)
[2021-06-18] MEDS ORDERED: BACTRIM 160MG/800MG DS TAB PO ONE (22:10)
[2021-06-18] MEDS ORDERED: PERCOCET 5MG/325MG TAB PO ONE (22:10)
[2021-06-18] MEDS ORDERED: MAALOX 30 ML SUSP *UDC PO PRN (22:50)
[2021-06-18] MEDS ORDERED: MOM 30ML SUSPENSION UDC PO PRN (22:50)
[2021-06-18 22:53] LABS: RSV AMPLIFICATION NEGATIVE (NEGATIVE)
[2021-06-18] MEDS ORDERED: **hydrALAZINE HCL** 25 MG TAB PO ONE (22:55)
[2021-06-18] MEDS ORDERED: **hydrALAZINE** 50 MG TAB PO ONE (23:00)
[2021-06-18] MEDS ORDERED: FERR325T3 PO (23:32)
[2021-06-18] MEDS ORDERED: ASPI-161 PO (23:32)
[2021-06-18] MEDS ORDERED: INSUR SC (23:32)
[2021-06-18] MEDS ORDERED: HOME MED LIST COMPLETE! XX SCH (23:35)
[2021-06-19] MEDS ORDERED: LABETALOL 100MG/20ML VIAL IV STA (00:05)
[2021-06-19] MEDS ORDERED: BACLOFEN 5MG PER 1/2 TABLET PO PRN (00:10)
[2021-06-19] MEDS ORDERED: GLUCOSE 4GM CHEW TABLET PO PRN (00:10)
[2021-06-19] MEDS ORDERED: GLUCAGON INJ 1MG VIAL SC PRN (00:10)
[2021-06-19] MEDS ORDERED: METOPROLOL TART 50 MG TAB PO SCH (00:10)
[2021-06-19] MEDS ORDERED: DEXTROSE 50% 50 ML SYRINGE IV PRN (00:10)
[2021-06-19] MEDS: LACTOBACILLUS ACIDOPHILUS CAP (BACID) PO SCH ×3 (00:30→22:01)
[2021-06-19] MEDS ORDERED: METOPROLOL TART 50 MG TAB PO ONE (00:30)
[2021-06-19] MEDS: LOSARTAN 50MG TABLET PO SCH ×2 (00:30→22:01)
[2021-06-19] MEDS: LEVEMIR (INSULIN DETEMIR) 1 UNITS/0.01ML SC SCH ×2 (01:10→22:02)
[2021-06-19 02:10] VITALS: BP 171/77
[2021-06-19] MEDS: minoxidiL 2.5 MG TAB PO SCH ×3 (02:48→22:00)
--- NOTE | 2021-06-19 03:37 | HPEPDOC ---
[facility] Medical History & Physical Date of Admission Jun 18, 2021 Date of Service: Jun 19, 2021 Primary Care Physician: VAL JOHNSON DO Attending Physician: MICHAEL GOLD MD History and Physical TIME OF SERVICE: 1240AM CHIEF COMPLAINT: boil HISTORY OF PRESENT ILLNESS: is a 36 yr old who is well known to our service; she was last admitted on May for chest pain due to HTN Urgency and prior to that in April for evaluation of new onset seizures; she was started on Keppra 500mg BID. For unclear reasons she hasnt had a chance to follow up with the Neurology service on an outpatient basis but she thinks she has had 3 more seizures after she was discharged with the last episode occurring 2 weeks ago. Today she was sent from dialysis for evaluation of pain and swelling in her left arm pit. She denies having any discharge from the area. She has had boils on h er back and other parts of her body in the past. Unfortunately she missed her afternoon medications prior to leaving the [place] for dialysis because staff were not available to give her medications before her ride arrived to take her dialysis; she also missed her evening medications while waiting to be seen in the ER. Per d/w appears to have a 2cm mass in the left axilla; due to difficulties obtaining IV access she was started on oral abx; was informed about the case and will see the patient in the morning. 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 Denies drinking alcohol or smoking tobacco and resides at [facility]. FAMILY HISTORY: Father: HTN, COPD / Mother: HTN, DM2 / Paternal grandmother: DM2 / Maternal grandmother: DM2, breast cancer / Maternal aunts: DM2 / Maternal uncle: Lung cancer ALLERGIES: Please see below. HOME MEDICATIONS: Please see below. PHYSICAL EXAMINATION: Vital Signs Date Time Temp Pulse Resp B/P (MAP) Pulse Ox O2 Delivery O2 Flow Rate FiO2 06/18/21 17:21 98.2 77 16 259/120 (166) 96 Room Air GENERAL APPEARANCE: well-nourished and developed /NAD HEENT: EOMI/ she has scleral icterus CARDIOVASCULAR: RRR/NMRG / + 1 BLE edema LUNGS: CTAB on RA MUSCULOSKELETAL: NCAT / AV fistula in RUE / permacath INTEGUMENT: she has a raised lesion in her left axilla NEUROLOGICAL: CN 2-12 grossly intact /speech not dysarthric PSYCHIATRIC: A&Ox 3 / able to understand and follow all commands LABORATORY DATA: IMAGING: Extremity US IMPRESSION: Solid-appearing complex mass in the left axilla as described above. Differential includes an enlarged lymph node, either infectious or inflammatory, versus an abscess. MICROBIOLOGY: Respiratory panel neg ASSESSMENT: Ms. Mireles is a 36 yr old w ESRD on HD MWF, IDDM1 w neuropathy & reti nopathy, Seizure disorder, Pulm HTN, Chronic Thrombocytosis, Congestive hepatopathy, Uncontrolled HTN & Anxiety who is admitted for HTN Crisis & left axilla mass. PLAN: 1 HTN Urgency 2/2 missing afternoon and evening meds Plan: admit to PCU / give her home meds now / c/w current doses of Clonidine Hydralazine, Losartan, Metoprolol and Minoxidil 2 Left Axilla Mass Possibly enlarged LN or abscess Plan: c/w PO Bactrim pending evaluation by / f/u PCR for MRSA 3 Seizure Disorder I suspect that she may be having seizures if her medications are dialyzed out of her system Plan: f/u serum Keppra levels / the day time team may consider touching base with Neuro & Nephro to discuss titrating her meds and adjusting when she takes them to ensure that they are taken immediately after dialysis 4 IDDM1 Plan: f/u FSBS / c/w 15 units of long acting insulin w SSI / hypoglycemia protocol 5 ESRD Plan: f/u w in the morning /c/w Sevelamer DVT px w Heparin Dispo: home after at least 2 midnights stay Home Medications Scheduled Amlodipine Besylate (Amlodipine Besylate) 10 Mg Tablet, 10 MG PO DAILY Aspirin (Aspirin EC) 81 Mg Tablet.dr, 81 MG PO DAILY Clonidine HCl (Clonidine HCl) 0.3 Mg Tablet, 0.3 MG PO DAILY Ergocalciferol (Vitamin D2) (Vitamin D2) 50,000 Units Cap, 50,000 UNITS PO QWEEK THURSDAY Ferrous Sulfate (Ferrous Sulfate) 325 Mg Tablet.dr, 325 MG PO BID Hydralazine HCl (Hydralazine HCl) 50 Mg Tablet, 100 MG PO TID Insulin Glargine,Hum.rec.anlog (Basaglar Kwikpen U-100) 100 Unit/1 Ml Insuln.pen, 15 UNIT SC QHS Insulin Human Regular (Novolin R) 100 Unit/1 Ml Vial, 1 DOSE SC AC PER SLIDING SCALE L.acidoph/L.bulg/B.bif/S.therm (Tonja-Bid Caplet) 1 Each Tablet, 1 TAB PO BID Levetiracetam (Keppra) 250 Mg Tablet, 500 MG PO DAILY Losartan Potassium (Losartan Potassium) 100 Mg Tablet, 100 MG PO QHS Metoprolol Tartrate (Metoprolol Tartrate) 50 Mg Tablet, 50 MG PO BID Minoxidil (Minoxidil) 2.5 Mg Tablet, 2.5 MG PO BID Sevelamer Carbonate (Sevelamer Carbonate) 800 Mg Tablet, 1,600 MG PO WM WITH MEALS Scheduled PRN Baclofen (Baclofen) 10 Mg Tablet, 5 MG PO BID PRN for MUSCLE SPASMS Allergies Coded Allergies: cinacalcet (Verified Allergy, Unknown, 11/25/20) latex (Verified Allergy, Unknown, 11/03/19) peanut (Verified Allergy, Unknown, 11/25/20) TAPE (Verified Adverse Reaction, Mild, IRRITATES SKIN, 06/18/21) USE PAPER TAPE ONLY morphine (Verified Adverse Reaction, Mild, MILD PRURITIS, 03/28/21) per PATIENT 03/28/21 A-FIB/CHADSVASC A-FIB History Current/History of A-Fib/PAF?: No Current PO Anticoag Therapy: No MICHAEL GOLD MD Jun 19, 2021 03:36
[2021-06-19 04:00] VITALS: BP 171/82
[2021-06-19] MEDS: HumaLOG INSULIN (NovoLOG) PER UNIT SC SCH ×4 (06:32→19:03)
[2021-06-19] MEDS: HEPARIN SOD (PORCINE) 5000UNITS/ML 1ML VIAL/SYRINGE SC SCH ×3 (06:32→22:02)
[2021-06-19 08:04] VITALS: BP 155/74
[2021-06-19] MEDS: (RENVELA) SEVELAMER **CARBONate** 800 MG TAB PO SCH ×3 (08:41→19:03)
[2021-06-19] MEDS: cloNIDine 0.1MG TABLET PO SCH (08:42)
[2021-06-19] MEDS: METOPROLOL TART 50 MG TAB PO SCH ×2 (08:42→22:00)
[2021-06-19] MEDS: ASPIRIN 81MG ENTERIC TABLET PO SCH (08:42)
[2021-06-19] MEDS: BACTRIM 160MG/800MG DS TAB PO SCH ×2 (08:42→22:00)
[2021-06-19] MEDS: **hydrALAZINE** 50 MG TAB PO SCH ×3 (08:43→22:01)
[2021-06-19] MEDS ORDERED: levETIRAcetam 250MG TABLET (KEPPRA) PO SCH (09:00)
[2021-06-19 09:17] LABS: CREATININE FOR GFR 5.79 MG/DL (0.55-1.30); GLOMERULAR FILTRATION RATE 10.8 (>60); POTASSIUM SERUM 4.3 MEQ/L (3.5-5.1)
[2021-06-19 12:50] VITALS: BP 114/73
--- NOTE | 2021-06-19 13:14 | CR.PDOC ---
General Date of Consultation: Jun 19, [address] Oconnor. HISTORY OF PRESENT ILLNESS: The patient is a 36-year-old female with a left axillary abscess, Gen. surgery consulted for possible I&D. Patient had developed a tender swollen mass in the left axillary area. She has had a history of "boils" in the past. The patient was started on oral antibiotics as there had been difficulty gaining IV access. ALLERGIES: Please see below. HOME MEDICATIONS: Please see below. 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 GENERAL APPEARANCE: NAD RESPIRATORY: CTA CARDIOVASCULAR: RRR ABDOMEN: soft, NT EXTREMITIES: Left axilla with approx 2x2cm firm mass, no fluctuance, TTP. WBC 10.6 on admission CRP 2.59 US LUE FINDINGS: Soft tissues: Imaging of the left axilla demonstrates the presence of a complex appearing predominantly solid mass measuring 1.9 x 1.4 x 2 cm. Masses echogenic centrally with a hypoechoic rind. No significant hypervascularity. Findings may represent a lymph node or mass of other etiology. No drainable collection demonstrated. IMPRESSION: Solid-appearing complex mass in the left axilla as described above. Differential includes an enlarged lymph node, either infectious or inflammatory, versus an abscess. Electronically signed by: Young Hopkins On 06/18/2021 20:40:54 PM ASSESSMENT/PLAN: Left axilla mass. Possible abscess. The patient is reviewed and examined as per Dr. Oconnor. The area is firm, there is no fluctuance. Ultrasound is reviewed indicating a solid mass measuring 1.9 x 1.4 x 2 cm. Possible lymph node versus abscess. There was no drainable fluid collection noted. As per Dr. Oconnor, no surgical intervention would be recommended at this time. Would recommend to continue with antibiotics and monitor for improvement/reevaluate. Vital Signs/I&O Vital Signs Date Time Temp Pulse Resp B/P (MAP) Pulse Ox O2 Delivery O2 Flow Rate FiO2 06/19/21 08:43 155/74 06/19/21 08:43 71 06/19/21 08:04 98.1 16 100 Room Air Laboratory Data Labs 24H Laboratory Tests 2 06/18/21 20:06: Immature Granulocyte % (Auto) 0.5, Neutrophils (%) (Auto) 77.7H, Lymphocytes (%) (Auto) 11.0L, Monocytes (%) (Auto) 6.7, Eosinophils (%) (Auto) 3.6H, Basophils (%) (Auto) 0.5, Neutrophils # (Auto) 8.2, Lymphocytes # (Auto) 1.2L, Monocytes # (Auto) 0.7, Eosinophils # (Auto) 0.4, Basophils # (Auto) 0.1, Nucleated Red Blood Cells % (auto) 0.0, Erythrocyte Sedimentation Rate 75H, Anion Gap 9, Glomerular Filtration Rate 12.5L, Calcium Level 10.4H, C-Reactive Protein, Quantitative 2.59H 06/18/21 22:09: Coronavirus (COVID-19)(PCR) NEGATIVE, Influenza Type A (RT-PCR) NEGATIVE, Influenza Type B (RT-PCR) NEGATIVE, Respiratory Syncytial Virus (PCR) NEGATIVE 06/19/21 01:36: Bedside Glucose (Misc Panel) 263H 06/19/21 06:28: Bedside Glucose (Misc Panel) 207H 06/19/21 08:33: Bedside Glucose (Misc Panel) 66L 06/19/21 08:40: Anion Gap 11, Glomerular Filtration Rate 10.8L, Calcium Level 10.0 CBC/BMP Laboratory Tests 06/18/21 20:06 06/19/21 08:40 Allergies Coded Allergies: cinacalcet (Verified Allergy, Unknown, 11/25/20) latex (Verified Allergy, Unknown, 11/03/19) peanut (Verified Allergy, Unknown, 11/25/20) TAPE (Verified Adverse Reaction, Mild, IRRITATES SKIN, 06/18/21) USE PAPER TAPE ONLY morphine (Verified Adverse Reaction, Mild, MILD PRURITIS, 03/28/21) per PATIENT 03/28/21 Home Medications Scheduled Amlodipine Besylate (Amlodipine Besylate) 10 Mg Tablet, 10 MG PO DAILY, (Reported) Aspirin (Aspirin EC) 81 Mg Tablet.dr, 81 MG PO DAILY, (Reported) Clonidine HCl (Clonidine HCl) 0.3 Mg Tablet, 0.3 MG PO DAILY, (Reported) Ergocalciferol (Vitamin D2) (Vitamin D2) 50,000 Units Cap, 50,000 UNITS PO QWEEK, (Reported) THURSDAY Ferrous Sulfate (Ferrous Sulfate) 325 Mg Tablet.dr, 325 MG PO BID, (Reported) Hydralazine HCl (Hydralazine HCl) 50 Mg Tablet, 100 MG PO TID, (Reported) Insulin Glargine,Hum.rec.anlog (Basaglar Kwikpen U-100) 100 Unit/1 Ml Insuln.pen, 15 UNIT SC QHS, (Reported) Insulin Human Regular (Novolin R) 100 Unit/1 Ml Vial, 1 DOSE SC AC, (Reported) PER SLIDING SCALE L.acidoph/L.bulg/B.bif/S.therm (Tonja-Bid Caplet) 1 Each Tablet, 1 TAB PO BID, (Reported) Levetiracetam (Keppra) 250 Mg Tablet, 500 MG PO DAILY, (Reported) Losartan Potassium (Losartan Potassium) 100 Mg Tablet, 100 MG PO QHS, (Reported) Metoprolol Tartrate (Metoprolol Tartrate) 50 Mg Tablet, 50 MG PO BID, (Reported) Minoxidil (Minoxidil) 2.5 Mg Tablet, 2.5 MG PO BID, (Reported) Sevelamer Carbonate (Sevelamer Carbonate) 800 Mg Tablet, 1,600 MG PO WM, (Reported) WITH MEALS Scheduled PRN Baclofen (Baclofen) 10 Mg Tablet, 5 MG PO BID PRN for MUSCLE SPASMS, (Reported) Columba Ruiz Jun 19, 2021 12:41
[2021-06-19] MEDS: ACETAMINOPHEN TAB 650MG DOSE (2X325MG) PO PRN ×2 (15:38→22:02)
--- NOTE | 2021-06-19 16:03 | IPNPDOC ---
Subjective Date Seen The patient was seen on 06/19/21. Subjective Chief Complaint/HPI Ms. Mireles is a 36 year old female from [facility] who is here with painful left arm mass. She was seen this morning. Denies chest pain or dyspnea. General surgery evaluated patient. Recommended antibiotics and monitoring for the time being. Nephrology took patient to dialysis today. Otherwise, I spoke with pharmacy about the levetiracetam. We decided to change the dosing to evening dosing, so it would be after dialysis. She will receive 250mg tonight (since she had 500mg in the AM before dialysis) and start 500mg tomorrow night. Objective Physical Examination General Exam: Positive: Alert, Cooperative Eye Exam: Negative: Sclera icteric Neck Exam: Positive: Supple Chest Exam: Positive: Clear to auscultation Heart Exam: Positive: Rate Normal, Regular Rhythm Abdomen Exam: Positive: Normal bowel sounds, Soft; Negative: Tenderness Neuro Exam: Positive: Normal Speech Psych Exam: Positive: Mental status NL, Mood NL Assessment /Plan Assessment Ms. Mireles is a 36 year old female from [facility] who is here with painful left arm mass. Soft tissue US of left axilla demonstrates a complex appearing solid mass measuring 1.9 x 1.4 x 2 cm. General surgery following and recommending antibiotics and monitoring. Patient is a hard stick, so on PO antibiotics. Patient does not have systemic signs of toxicity and has very mild leukocytosis at 10.6. Will continue with PO antibiotics and clinically monitor. If worsens, will switch to IV antibiotics. Plan/VTE VTE Prophylaxis Ordered?: Yes Plan 1. Painful left axillary mass Soft tissue US of left axilla demonstrates a complex appearing solid mass measuring 1.9 x 1.4 x 2 cm. Patient does not show signs of toxicity. Leukocytosis mild at 10.6. Okay for p.o. antibiotics Bactrim day 1 General surgery consulted, recommendations appreciated. Recommending antibiotics and monitoring 2. Hypertensive urgency Secondary to missing medications Resume amlodipine, clonidine, hydralazine, losartan, metoprolol tartrate, and minoxidil 3. End-stage renal disease on dialysis Nephrology following and dialyze patient today Continue sevelamer 4. Seizure disorder Pending levetiracetam levels (these would be representing levetiracetam AM dosing schedule) Switching levetiracetam dosing from AM to PM so she receives doses after dialysis instead 5. Insulin-dependent diabetes mellitus type 1 Continue with basal bolus insulin 6. DVT prophylaxis Heparin Disposition: Pending clinical improvement VS, I&O, 24H, Fishbone Vital Signs/I&O Vital Signs Date Time Temp Pulse Resp B/P (MAP) Pulse Ox O2 Delivery O2 Flow Rate FiO2 06/19/21 12:50 98.0 85 17 114/73 (87) 100 Room Air Laboratory Data 24H LABS Laboratory Tests 2 06/18/21 20:06: Immature Granulocyte % (Auto) 0.5, Neutrophils (%) (Auto) 77.7H, Lymphocytes (%) (Auto) 11.0L, Monocytes (%) (Auto) 6.7, Eosinophils (%) (Auto) 3.6H, Basophils (%) (Auto) 0.5, Neutrophils # (Auto) 8.2, Lymphocytes # (Auto) 1.2L, Monocytes # (Auto) 0.7, Eosinophils # (Auto) 0.4, Basophils # (Auto) 0.1, Nucleated Red Blood Cells % (auto) 0.0, Erythrocyte Sedimentation Rate 75H, Anion Gap 9, Glomerular Filtration Rate 12.5L, Calcium Level 10.4H, C-Reactive Protein, Quantitative 2.59H 06/18/21 22:09: Coronavirus (COVID-19)(PCR) NEGATIVE, Influenza Type A (RT-PCR) NEGATIVE, Influenza Type B (RT-PCR) NEGATIVE, Respiratory Syncytial Virus (PCR) NEGATIVE 06/19/21 01:36: Bedside Glucose (Misc Panel) 263H 06/19/21 06:28: Bedside Glucose (Misc Panel) 207H 06/19/21 08:33: Bedside Glucose (Misc Panel) 66L 06/19/21 08:40: Anion Gap 11, Glomerular Filtration Rate 10.8L, Calcium Level 10.0 CBC/BMP Laboratory Tests 06/18/21 20:06 06/19/21 08:40 COLIN MCLEAN DO Jun 19, 2021 15:51
[2021-06-19] MEDS ORDERED: SODIUM CHLORIDE 0.9% 1000ML IV PRN (16:10)
[2021-06-19 16:35] VITALS: BP 128/60
[2021-06-19] MEDS ORDERED: levETIRAcetam 250MG TABLET (KEPPRA) PO ONE (21:00)
[2021-06-19 21:55] VITALS: BP 137/68
[2021-06-19] MEDS ORDERED: PERCOCET 5MG/325MG TAB PO ONE (23:00)
[2021-06-20] VITALS: BP 129/61
[2021-06-20] MEDS: HumaLOG INSULIN (NovoLOG) PER UNIT SC SCH ×2 (01:36→06:00)
[2021-06-20 04:00] VITALS: BP 143/65
[2021-06-20 05:41] LABS: HEMATOCRIT 32.5 % (36.0-47.0); HEMOGLOBIN 10.2 g/dl (12.0-15.5); MEAN CORPUSCULAR HGB CONC 31.4 g/dl (32.0-36.5); MEAN CORPUSCULAR VOLUME 92.3 fl (80.0-96.0); PLATELET COUNT, AUTOMATED 480 10^3/uL (150-450); RED BLOOD COUNT 3.52 10^6/uL (4.00-5.40); WHITE BLOOD COUNT 10.5 10^3/uL (4.0-10.0)
[2021-06-20 06:06] LABS: ALBUMIN 3.2 GM/DL (3.2-5.2); C REACTIVE PROTEIN QUANTITATIV 3.4 MG/DL (0.00-0.30); CALCIUM LEVEL 10.2 MG/DL (8.5-10.1); CREATININE FOR GFR 4.35 MG/DL (0.55-1.30); PHOSPHORUS LEVEL 4.1 MG/DL (2.5-4.9); POTASSIUM SERUM 4.2 MEQ/L (3.5-5.1)
[2021-06-20 06:18] LABS: ERYTHROCYTE SEDIMENTATION RATE 65 mm/hr (0-20)
[2021-06-20] MEDS: HEPARIN SOD (PORCINE) 5000UNITS/ML 1ML VIAL/SYRINGE SC SCH (06:33)
[2021-06-20 08:00] VITALS: BP 115/55
--- NOTE | 2021-06-20 08:16 | IPNPDOC ---
Text Note Date of Service The patient was seen on 06/20/21. NOTE General surgery. Dr. Oconnor 36-year-old female with a left axillary abscess. This morning, the patient states the abscess drained on its own last evening and feels much better. The area does not feel tender anymore. Afebrile VSS MMM Left axillary abscess appears to be draining on its own, there is still a small approximate 1-1/2 cm firm area, no fluctuance, brownish-yellow drainage noted on the patient's dressing I was not able to express any additional drainage, the area is nontender to touch this morning. WBC 10.5. Assessment/plan Left axillary abscess The patient reports the area drained on its own last evening and is feeling much better. Continue with dry dressing Continue with oral antibiotics as per hospitalist. VS,Fishbone, I+O VS, Fishbone, I+O Laboratory Tests 06/19/21 08:40 06/20/21 05:15 Vital Signs Date Time Temp Pulse Resp B/P (MAP) Pulse Ox O2 Delivery O2 Flow Rate FiO2 06/20/21 04:00 96.9 72 18 143/65 (91) 93 Room Air I&O- Last 24 Hours up to 6 AM 06/20/21 05:59 Output Total 1500 ml Balance -1500 ml Columba Ruiz Jun 20, 2021 08:16
[2021-06-20] MEDS: (RENVELA) SEVELAMER **CARBONate** 800 MG TAB PO SCH (08:25)
[2021-06-20] MEDS: ASPIRIN 81MG ENTERIC TABLET PO SCH (08:25)
[2021-06-20] MEDS: LACTOBACILLUS ACIDOPHILUS CAP (BACID) PO SCH (08:25)
[2021-06-20 08:26] VITALS: BP 115/55
[2021-06-20] MEDS: METOPROLOL TART 50 MG TAB PO SCH (08:26)
[2021-06-20] MEDS: cloNIDine 0.1MG TABLET PO SCH (08:26)
[2021-06-20] MEDS: minoxidiL 2.5 MG TAB PO SCH (08:26)
[2021-06-20] MEDS: **hydrALAZINE** 50 MG TAB PO SCH (08:26)
[2021-06-20] MEDS: BACTRIM 160MG/800MG DS TAB PO SCH (08:27)
[2021-06-20] MEDS ORDERED: KEPP250T5 PO (09:23)
[2021-06-20] MEDS ORDERED: BACTDSTA PO (09:23)
--- NOTE | 2021-06-20 11:20 | DS.PDOC ---
Discharge Summary General Date of Admission Jun 18, 2021 at 22:48 Date of Discharge Jun 20, 2021 Specialist/Consultants [facility], Dr. Kitty Bates General surgery, Dr. Oconnor Discharge Summary PROCEDURES PERFORMED DURING STAY: None ADMITTING DIAGNOSES: 1. Hypertensive urgency 2. Left axilla mass 3. Seizure disorder 4. IDDM1 5. ESRD on dialysis MWF DISCHARGE DIAGNOSES: 1. Hypertensive urgency 2. Left axilla mass 3. Seizure disorder 4. IDDM1 5. ESRD on dialysis MWF COMPLICATIONS/CHIEF COMPLAINT: Hypertensive Urgency, Hyponatremia, Phlegmon. HISTORY OF PRESENT ILLNESS: Copied from admitting attending's H&P " is a 36 yr old who is well known to our service; she was last admitted on May for chest pain due to HTN Urgency and prior to that in April for evaluation of new onset seizures; she was started on Keppra 500mg BID. For unclear reasons she hasnt had a chance to follow up with the Neurology service on an outpatient basis but she thinks she has had 3 more seizures after she was discharged with the last episode occurring 2 weeks ago. Today she was sent from dialysis for evaluation of pain and swelling in her left arm pit. She denies having any discharge from the area. She has had boils on her back and other parts of her body in the past. Unfortunately she missed her afternoon medications prior to leaving the [place] for dialysis because staff were not available to give her medications before her ride arrived to take her dialysis; she also missed her evening medications while waiting to be seen in the ER. Per d/w appears to have a 2cm mass in the left axilla; due to difficulties obtaining IV access she was started on oral abx; was informed about the case and will see the patient in the morning. " HOSPITAL COURSE: During hospitalization, general surgery evaluated the site. Since the US did not demonstrated fluid collection, recommended monitoring and antibiotics. We were not able to obtain IV access, but patient at the time was not toxic and leukocytosis was very mild. Continued with PO antibiotics. She went to dialysis and blood pressure was better controlled. Overnight, her abscess popped and leaked fluid. Her pain resolved and it is no longer tender. Will continue antibiotics. This morning, she felt well. She denied any chest pain or dyspnea. She felt ready to return back to [facility]. Otherwise, there was concern that her levetiracetam was being dialyzed out. Still pending levetiracetam levels. I discussed this with the pharmacist. Plan to switch levetiracetam to the evening so her dosage will be after dialysis. DISCHARGE MEDICATIONS: Please see below. ALLERGIES: Please see below. PHYSICAL EXAMINATION ON DISCHARGE: VITAL SIGNS: Please see below. GENERAL: Comfortable, in no apparent distress. HEENT: Sclera clear. NECK: Supple. RESPIRATORY: Lungs clear to auscultation bilaterally. CARDIOVASCULAR: Regular rate and rhythm. ABDOMEN: Soft, nontender, no guarding or rebound tenderness. Normal bowel sounds. MUSCULOSKELETAL: Mass in left armpit is gone. Left armpit is no longer tender PSYCHOLOGICAL: Normal mood and affect LABORATORY DATA: Please see below. IMAGING: Radiologist interpretation US extremity, non vascular on left Solid-appearing complex mass in the left axilla as described above. Differential includes an enlarged lymph node, either infectious or inflammatory, versus an abscess. PROGNOSIS: Good ACTIVITY: As tolerated. DIET: Renal diet DISCHARGE PLAN: Return to [facility] DISPOSITION: Return to [facility] DISCHARGE INSTRUCTIONS: 1. Follow up with PCP in 1 week 2. Continue regular dialysis sessions 3. Continue antibiotic to completion 4. The timing for your levetiracetam (Keppra) is different. Instead of taking once in the morning, take once in the evening ITEMS TO FOLLOWUP ON ON OUTPATIENT: 1. Levetiracetam level DISCHARGE CONDITION: Stable Total time spent on discharge planning, discharge summary, and medication reconciliation: 45 minutes Vital Signs/I&Os Vital Signs Date Time Temp Pulse Resp B/P (MAP) Pulse Ox O2 Delivery O2 Flow Rate FiO2 06/20/21 08:26 77 115/55 06/20/21 08:00 97.0 18 95 Room Air I&O- Last 24 Hours up to 6 AM 06/20/21 06:00 Output Total 1500 ml Balance -1500 ml Laboratory Data Labs 24H Laboratory Tests 2 06/19/21 18:45: Bedside Glucose (Misc Panel) 194H 06/19/21 21:45: Bedside Glucose (Misc Panel) 241H 06/20/21 01:32: Bedside Glucose (Misc Panel) 218H 06/20/21 05:13: Bedside Glucose (Misc Panel) 41L 06/20/21 05:15: Nucleated Red Blood Cells % (auto) 0.0, Erythrocyte Sedimentation Rate 65H, Anion Gap 6L, Glomerular Filtration Rate 15.0L, Calcium Level 10.2H, Phosphorus Level 4.1, C-Reactive Protein, Quantitative 3.40H, Albumin 3.2 06/20/21 05:33: Bedside Glucose (Misc Panel) 50L 06/20/21 05:53: Bedside Glucose (Misc Panel) 70 06/20/21 06:35: Bedside Glucose (Misc Panel) 102 CBC/BMP Laboratory Tests 06/20/21 05:15 FSBS Laboratory Tests Test 06/19/21 18:45 06/19/21 21:45 06/20/21 01:32 06/20/21 05:13 Range/Units Bedside Glucose (Misc Panel) 194 241 218 41 70-105 MG/DL Test 06/20/21 05:33 06/20/21 05:53 06/20/21 06:35 Range/Units Bedside Glucose (Misc Panel) 50 70 102 70-105 MG/DL Discharge Medications Scheduled Amlodipine Besylate (Amlodipine Besylate) 10 Mg Tablet, 10 MG PO DAILY, (Reported) Aspirin (Aspirin EC) 81 Mg Tablet.dr, 81 MG PO DAILY, (Reported) Clonidine HCl (Clonidine HCl) 0.3 Mg Tablet, 0.3 MG PO DAILY, (Reported) Ergocalciferol (Vitamin D2) (Vitamin D2) 50,000 Units Cap, 50,000 UNITS PO QWEEK, (Reported) THURSDAY Ferrous Sulfate (Ferrous Sulfate) 325 Mg Tablet.dr, 325 MG PO BID, (Reported) Hydralazine HCl (Hydralazine HCl) 50 Mg Tablet, 100 MG PO TID, (Reported) Insulin Glargine,Hum.rec.anlog (Basaglar Kwikpen U-100) 100 Unit/1 Ml Insuln.pen, 15 UNIT SC QHS, (Reported) Insulin Human Regular (Novolin R) 100 Unit/1 Ml Vial, 1 DOSE SC AC, (Reported) PER SLIDING SCALE L.acidoph/L.bulg/B.bif/S.therm (Tonja-Bid Caplet) 1 Each Tablet, 1 TAB PO BID, (Reported) Levetiracetam (Keppra) 250 Mg Tablet, 500 MG PO QHS Losartan Potassium (Losartan Potassium) 100 Mg Tablet, 100 MG PO QHS, (Reported) Metoprolol Tartrate (Metoprolol Tartrate) 50 Mg Tablet, 50 MG PO BID, (Reported) Minoxidil (Minoxidil) 2.5 Mg Tablet, 2.5 MG PO BID, (Reported) Sevelamer Carbonate (Sevelamer Carbonate) 800 Mg Tablet, 1,600 MG PO WM, (Reported) WITH MEALS Sulfamethoxazole/Trimethoprim (Sulfamethoxazole-Tmp Ds Tablet) 1 Each Tablet, 1 TAB PO BID Scheduled PRN Baclofen (Baclofen) 10 Mg Tablet, 5 MG PO BID PRN for MUSCLE SPASMS, (Reported) Allergies Coded Allergies: cinacalcet (Verified Allergy, Unknown, 11/25/20) latex (Verified Allergy, Unknown, 11/03/19) peanut (Verified Allergy, Unknown, 11/25/20) TAPE (Verified Adverse Reaction, Mild, IRRITATES SKIN, 06/18/21) USE PAPER TAPE ONLY morphine (Verified Adverse Reaction, Mild, MILD PRURITIS, 03/28/21) per PATIENT 03/28/21 COLIN MCLEAN DO Jun 20, 2021 11:20
--- NOTE | 2021-06-20 13:32 | CR ---
CONSULTATION DATE: 06/19/2021 REQUESTING PHYSICIAN: Dr. Garvey REASON FOR CONSULTATION: Management of end-stage renal disease, on hemodialysis. CHIEF COMPLAINT: Tenderness in the left axilla with a localized swelling. HISTORY OF PRESENT ILLNESS: Narcisa Mireles is well known to me. She is a 36-year-old female with a past medical history of type 1 diabetes mellitus with diabetic neuropathy, diabetic gastroparesis, diabetic retinopathy, diabetic nephropathy, end-stage renal disease, on hemodialysis, history of seizure disorder, pulmonary hypertension, chronic thrombocytosis, history of transaminitis, anemia of chronic renal failure, secondary hyperparathyroidism of renal origin, chronically elevated alkaline phosphatase levels, history of Clostridium (C) difficile, hypertension, and other comorbid conditions mentioned below. Patient presented to the emergency room with complaint of tenderness and swelling in the left axillary region, and she was evaluated by surgery and started on Bactrim. A nephrology evaluation was requested for help ini the management of her chronic hemodialysis. Patient has recently been in fluid overload and has been receiving regular extra dialysis treatments in the outpatient dialysis unit. She is on a Thursday, Thursday, Thursday schedule, but she was dialyzed yesterday, Thursday, June 18, as an extra treatment, and today she is due for dialysis. MEDICAL HISTORY: 1. Type 1 diabetes with diabetic gastroparesis. 2. Diabetic neuropathy. 3. Diabetic retinopathy. 4. Diabetic nephropathy. 5. End-stage renal disease, on hemodialysis. 6. Seizure disorder. 7. Pulmonary hypertension. 8. Chronic thrombocytosis. 9. History of transaminitis and liver biopsy in the past. 10. Hypertension. 11. History of C. difficile. 12. Anxiety. 13. History of osteomyelitis with bilateral 5th metatarsal head amputation. 14. History of brain surgery to resect an arachnoid cyst. 15. Chronically elevated alkaline phosphatase. 16. Anemia of chronic renal failure. 17. Secondary hyperparathyroidism of renal origin. SURGICAL HISTORY: 1. Liver biopsy. 2. Perm-A-Cath. 3. Arteriovenous (AV) fistula. 4. Brain surgery for resection of arachnoid cyst. 5. Bilateral 5th metatarsal head amputation. 6. section. SOCIAL HISTORY: She is unemployed. She is currently at [facility]. No alcohol or smoking. She has one son. FAMILY HISTORY: She has a family history of diabetes and hypertension. HOME MEDICATIONS: Reviewed and include: - amlodipine 10 mg daily - baclofen 5 mg twice a day as needed - clonidine 0.3 mg daily - vitamin D2 at 50,000 units once weekly - ferrous sulfate 325 mg once daily - hydralazine 100 mg three times a day - Keppra 500 mg daily - losartan 100 mg every night - metoprolol 50 mg by mouth twice a day - minoxidil 2.5 mg by mouth twice a day - aspirin 81 mg by mouth daily - insulin - Renvela 1600 mg by mouth with meals ALLERGIES: Tape, CINACALCET, LATEX, MORPHINE, peanut. REVIEW OF SYSTEMS: CONSTITUTIONAL: She denies fevers or chills. EYES: She denies visual changes or tearing. ENT: She denies odynophagia or rhinorrhea. CARDIAC: She denies chest pain or palpitations. She reports her leg swelling has significantly improved over the past couple of weeks. RESPIRATORY: She denies shortness of breath or cough. GASTROINTESTINAL: She reports diabetic gastroparesis and nausea. She denies diarrhea. She does have a history of C. difficile. GENITOURINARY: She denies dysuria or hematuria. ENDOCRINE: She reports type 1 diabetes. She reports secondary hyperparathyroidism. MUSCULOSKELETAL: She reports tenderness and swelling in the left axilla. She reports her leg swelling is improved with her recent extra dialysis treatments. NEUROLOGIC: She has a history of seizure. She denies syncope. PSYCHIATRIC: She reports depression. SKIN: She reports increased hair growth, and she reports darkening of the skin. HEMATOLOGIC: She reports thrombocytosis and anemia of chronic renal failure. VITAL SIGNS: Temperature 97.7, blood pressure 137/68, pulse 80, respiratory rate 18, blood pressure 95% on room air. Weight in the bed scale today is 87.8 kg. GENERAL: Patient is seen in the hemodialysis unit receiving her treatment. She is awake, alert, oriented times three, interactive, conversational, at baseline mentation and no distress. Extraocular muscles are intact. Tongue is moist. Neck is supple. There is a tunneled hemodialysis catheter in use. HEART: Sounds are regular, S1, S2. There is 1+ leg edema bilaterally, which is distal to the knees. LUNGS: Show clear auscultation bilaterally. No crackle or rale. ABDOMEN: Soft and nontender. EXTREMITIES: There is 1+ leg edema. There is no clubbing or cyanosis. There is a small, firm mass in the left axilla. NEUROLOGIC: She is oriented times three. No focal deficit. PSYCHIATRIC: She is depressed. She is tearful. LABORATORY DATA: Sodium 134, potassium 4.3, bicarbonate 28, BUN 46, creatinine 5.7. Hemoglobin 10.9, platelets 499. Ultrasound of the left axilla demonstrates presence of complex-appearing, predominantly solid mass, measuring about 2 x 2 cm. May be a lymph node. Drainable collection was not seen, but differential includes enlarged lymph node versus an abscess. INPATIENT MEDICATIONS: - Tylenol as needed - Mylanta as needed - amlodipine 10 mg by mouth daily - aspirin 81 mg by mouth daily - baclofen 5 mg by mouth twice a day - clonidine 0.3 mg daily - heparin 5000 units subcutaneous every 8 hours - hydralazine 100 mg by mouth three times a day - insulin 15 units subcutaneous every night - Bacid one capsule twice a day - Keppra 500 mg by mouth every night - losartan 100 mg by mouth every night - metoprolol 100 mg by mouth twice a day - minoxidil 2.5 mg by mouth twice a day - Percocet one tablet by mouth times one - Renvela 1600 mg by mouth with meal - Bactrim one tablet by mouth twice a day PROBLEMS: 1. End-stage renal disease, on hemodialysis on a Thursday, Thursday, Thursday schedule. Patient has recently been receiving one extra dialysis per week in the outpatient setting because of increased peripheral edema. She was dialyzed yesterday, Thursday, June 18. We will dialyze her again today, as it is her usual day of dialysis. Patient was seen on dialysis today and tolerating her treatment well. There are 1500 mL being removed. Her next treatment will be on Thursday per her usual schedule. She is following up with Dr. Jett in the outpatient setting for a fistula creation. Presently she is dialyzing with Perm-A-Cath. Her electrolytes and volume status are acceptable. Continue current dialysis prescription. 2. Anemia of chronic renal failure. Hemoglobin is 10.9, which is optimal, and she will continue with erythropoietin-stimulating agent as indicated with dialysis. 3. Hypertension. Patient's blood pressures were initially markedly uncontrolled on admission because of missed medications. After receiving her oral antihistamines, her blood pressure is much improved and presently at goal, and I am making no change to her regimen. She takes a total of six different antihypertensive agents (amlodipine, clonidine, hydralazine, losartan, metoprolol, and minoxidil). 4. Mass in the left axilla. It will be managed as per surgery and primary team. She is currently on Bactrim. It is possibly an abscess. She is continued on antibiotics, and re-evaluation will be done tomorrow by surgical service.
--- NOTE | 2021-06-20 13:44 | IPN ---
PROGRESS NOTE DATE: 06/20/2021 SUBJECTIVE: Narcisa is seen and examined this morning at the bedside. She has no complaints. She states that her abscess drained on its own yesterday evening, and all the tenderness and pain have resolved. She is discharge pending to complete a course of Bactrim over the next 4 days. She remains afebrile. She is looking forward to getting out of the hospital. She denies any shortness of breath or chills. Temperature 97.0, pulse 77, respiratory rate 18, blood pressure 115/55, saturating 95% on room air. Dialysis yesterday removed 1.5 liters. Weight in the bed scale today is 85.8 kg. GENERAL: Patient is seen awake, alert, oriented, comfortable, sitting at the edge of the bed, legs dangling, in good spirits. Extraocular muscles are intact. Tongue is moist. Neck is supple. There is a tunneled hemodialysis catheter with dressing. HEART: Sounds are regular, S1, S2. There is 1+ bilateral leg edema distal to the knee. LUNGS: Clear to auscultation. No crackle or rale. ABDOMEN: Soft and nontender. The left axillary region was not examined today by myself. NEUROLOGIC: She is oriented times three, at baseline mentation. No focal deficit. LABORATORY DATA: White count 10.5, hemoglobin 10.2, platelets 480. Sodium 137, potassium 4.2, BUN 31, creatinine 4.3, CRP 3.4. INPATIENT MEDICATIONS: She continues on Bactrim one tablet twice daily. All her other medications are unchanged as compared to yesterday. PROBLEMS: 1. End-stage renal disease, on hemodialysis on a Thursday, Thursday, Thursday schedule. Patient was dialyzed yesterday. There was 1.5 liters removed. Her next dialysis treatment will be Thursday in the outpatient dialysis unit. Her electrolytes and volume status are acceptable. No change is being made to the current dialysis prescription. She will followup with vascular surgery outpatient for a fistula creation once she has satisfactorily completed the course of antibiotic with resolution of the left axillary abscess. 2. Hypertension. Blood pressures are optimally controlled. Systolic is 110s to 140s. She is on six different antihistamines. I am making no change. 3. Anemia of chronic renal failure. Hemoglobin is at goal, and it is managed through the outpatient dialysis unit. 4. Left axillary abscess. Followup from surgery as noted. Abscess spontaneously drained on its own. Patient is on Bactrim and will complete a course of therapy. She is symptomatically much improved with resolution of pain and tenderness.
[2021-06-20] MEDS ORDERED: levETIRAcetam 250MG TABLET (KEPPRA) PO SCH (21:00)
== END 2021-06-20 12:32 | DRG 304 ==
LOC: EDBD 17:04 → M ED 17:04 → M ED INP 22:48 → M PCU 06-19 02:30
PROVIDERS: ADMIT Internal Medicine; ATTEND Internal Medicine
PROC: 5A1D70Z Performance of Urinary Filtration, Intermittent, Less than 6 Hours Per Day (ICD-10-PCS; principal; 2021-06-19)
DX: I16.0 Hypertensive urgency (principal); N18.6 End stage renal disease; L02.412 Cutaneous abscess of left axilla; N25.81 Secondary hyperparathyroidism of renal origin; I12.0 Hypertensive chronic kidney disease with stage 5 chronic kidney disease or end stage renal disease; G40.909 Epilepsy, unspecified, not intractable, without status epilepticus; E10.22 Type 1 diabetes mellitus with diabetic chronic kidney disease; E10.42 Type 1 diabetes mellitus with diabetic polyneuropathy; E10.3599 Type 1 diabetes mellitus with proliferative diabetic retinopathy without macular edema, unspecified eye; D63.1 Anemia in chronic kidney disease; I27.20 Pulmonary hypertension, unspecified; D69.6 Thrombocytopenia, unspecified; F41.9 Anxiety disorder, unspecified; Z89.421 Acquired absence of other right toe(s); Z89.422 Acquired absence of other left toe(s); Z79.82 Long term (current) use of aspirin; Z79.4 Long term (current) use of insulin; Z79.899 Other long term (current) drug therapy; Z88.5 Allergy status to narcotic agent; Z88.8 Allergy status to other drugs, medicaments and biological substances; Z91.040 Latex allergy status; Z91.010 Allergy to peanuts; Z91.048 Other nonmedicinal substance allergy status; Z20.822 Contact with and (suspected) exposure to COVID-19; Z99.2 Dependence on renal dialysis